=== PATIENT | male | born 1955 | race Caucasian/White ===

== ENCOUNTER 2018-08-08 21:03 | Inpatient (IN) | payer MEDICARE ==
[~2018-08-08] VITALS: Ht 193 cm; Wt 105.2 kg
--- OUTSIDE RECORDS SUMMARY | 2018-08-08 21:06 | XMS REPORT | Clinical Summary ---
Author Author [facility] Organization [facility] Address Unknown Phone Unavailable Care Team Providers Care Liquor Clerk Name Role Phone Asked, No Pcp PCP Unavailable Allergies Comments Active Allergy Reactions Severity Noted Date Muscle contraction, could not walk Levofloxacin Other (See High 02/13/2009 Comments) Medications End Date Status Medication Sig Dispensed Refills Start Date Active omega 1-mke-vbv-fish oil Take 1 0 (FISH OIL) 100-160-1,000 capsule by mg capsule mouth daily. 04/06/2018 Discontinued coenzyme [id number] E Take by 0 50-15 mg-unit/5 mL syrup mouth. 04/21/2018 Discontinued rosuvastatin (CRESTOR) 10 Take by 0 MG tablet mouth. 04/10/2018 Discontinued naproxen sodium (ALEVE) Take by 0 220 MG tablet mouth. 04/21/2018 Discontinued ezetimibe-simvastatin Take by 0 (VYTORIN) 10-10 mg per mouth. tablet 04/21/2018 Discontinued niacin (NIASPAN Take by 0 EXTENDED-RELEASE ORAL) mouth. 04/21/2018 Discontinued plant stanol jadon Take by 0 (CHOLEST OFF ORAL) mouth. 04/21/2018 Discontinued omega 1-nus-ghe-fish oil by NOT 0 (FISH OIL) 100-160-1,000 APPLICABLE mg capsule route. 05/10/2018 metoprolol tartrate Take 1 tablet 60 tablet 0 (LOPRESSOR) 25 mg tablet (25 mg total) 9 by mouth 2 (two) times a day for 30 days. 05/11/2018 folic acid (FOLVITE) 1 MG Take 1 tablet 30 tablet 0 tablet (1 mg total) 9 by mouth daily for 30 days. 05/11/2018 multivitamin (THERAGRAN) Take 1 tablet 30 tablet 0 tablet by mouth 9 daily for 30 days. 05/11/2018 aspirin 81 mg chewable Chew 1 tablet 30 tablet 0 tablet (81 mg total) 9 daily for 30 days. 05/10/2018 escitalopram (LEXAPRO) 10 Take 1 tablet 30 tablet 0 MG tablet (10 mg total) 9 by mouth every evening for 30 days. 05/11/2018 thiamine mononitrate, vit Take 1 tablet 30 tablet 0 B1, (B-1) 100 mg tablet (100 mg 9 total) by mouth daily for 30 days. 04/23/2018 Discontinued atorvastatin (LIPITOR) 10 Take 10 mg by 0 MG tablet mouth daily. 04/23/2018 Discontinued furosemide (LASIX) 20 mg Take 20 mg by 0 tablet mouth every 12 (twelve) hours as needed (swelling). 05/23/2018 atorvastatin (LIPITOR) 10 Take 4 120 tablet 0 MG tablet tablets (40 9 mg total) by mouth daily for 30 days. 05/23/2018 pantoprazole (PROTONIX) Take 1 tablet 60 tablet 0 40 MG EC tablet (40 mg total) 9 by mouth 2 (two) times a day for 30 days. 05/23/2018 ranolazine (RANEXA) 500 Take 1 tablet 60 tablet 0 MG 12 hr ER tablet (500 mg 9 total) by mouth 2 (two) times a day for 30 days. 05/23/2018 sucralfate (CARAFATE) 1 Take 1 tablet 120 tablet 0 gram tablet (1 g total) 9 by mouth 4 (four) times a day before meals and nightly for 30 days. Active Problems Problem Noted Date NSTEMI (non-ST elevated myocardial infarction) 04/20/2018 Head trauma 04/06/2018 Encounters Care Team Description Date Type Specialty Elio Salcedo MD Left heart cath w lv gram cors [25811 (CPT)] 04/21/2018 Surgery Procedural Cardiology Figueroa Witt MD Fakhri, Alifiya, MD Khan, Farhat, MD Mehdinasab, Leyla, MD NSTEMI (non-ST elevated myocardial infarction) (HCC) (Primary Dx); Chest pain in adult 04/20/2018 Hospital General Internal Medicine - Encounter 04/23/2018 04/20/2018 Travel Henry Seals MD Roland, DO Quinton Silverio Tania Ijeoma, MD Mehdinasab, Leyla, MD Traumatic injury of head, initial encounter (Primary Dx); Unsteady gait; Frequent falls; Acute kidney injury (HCC) 04/06/2018 Emergency General Internal Medicine - 04/10/2018 04/06/2018 Travel after 08/07/2017 Immunizations Name Dates Previously Given Next Due FLUCELVAX QUAD PF (0.5mL 04/10/2018 (Deferred: ) syringe) Pneumococcal 04/07/2018 Polysaccharide Family History Medical History Relation Name Comments Cancer Brother Stroke Father Diabetes Mother Relation Name Status Comments Brother Father Alive Mother Social History Date Tobacco Use Types Packs/Day Years Used Never Smoker Smokeless Tobacco: Never Used Alcohol Use Drinks/Week oz/Week Comments Yes 1 bottle of rum per week Sex Assigned at Date Recorded Not on file Industry Job Start Date Occupation Not on file Not on file Not on file Travel End Travel History Travel Start No recent travel history available. Last Filed Vital Signs Time Taken Vital Sign Reading 04/23/2018 7:23 AM CDT Blood Pressure 139/64 04/23/2018 7:23 AM CDT Pulse 65 04/23/2018 7:23 AM CDT Temperature 36.8 C (98.3 F) 04/23/2018 7:23 AM CDT Respiratory Rate 20 04/23/2018 7:23 AM CDT Oxygen Saturation 94% - Inhaled Oxygen - Concentration 04/20/2018 10:31 AM CDT Weight 113 kg (249 lb 1.9 oz) 04/20/2018 10:31 AM CDT Height 188 cm (6' 2") 04/20/2018 10:31 AM CDT Body Mass Index 31.99 Plan of Treatment Health Maintenance Due Date Last Done Comments COLONOSCOPY SCREENING 08/07/2003 SHINGLES VACCINES (#1) 08/07/2003 INFLUENZA VACCINE 09/08/2018 Implants Device Identifier Shelf Expiration Date Model / Serial / Lot Implanted Type Area Manufactur er 03/10/2020 [id number] / / [id number] Device Vasclr Clsr Baln Cath 10ml Cardiovasc N/A: N/A ACCESS Lkng Syr 5fr Rock Mynxgrip - ular CLOSURE [id number] [employer] Implanted: 04/21/2018 (Quantity not on file) Procedures Comments Procedure Name Priority Date/Time Associated Diagnosis ESTIMATED GFR Routine 04/23/2018 4:59 AM CDT BASIC METABOLIC PANEL Routine 04/23/2018 4:59 AM CDT HC COMPLETE BLD COUNT Routine 04/23/2018 W/AUTO DIFF 4:59 AM CDT ESTIMATED GFR Routine 04/22/2018 4:37 AM CDT BASIC METABOLIC PANEL Routine 04/22/2018 4:37 AM CDT LIPID PANEL Routine 04/22/2018 4:37 AM CDT HC COMPLETE BLD COUNT Routine 04/22/2018 W/AUTO DIFF 4:37 AM CDT US GALLBLADDER Routine 04/21/2018 5:06 PM CDT CV LEFT HEART CATH LV Routine 04/21/2018 GRAM WITH CORS 2:58 PM CDT URINALYSIS SCREEN AND Routine 04/21/2018 MICROSCOPY, WITH REFLEX 12:30 PM CDT TO CULTURE PARTIAL THROMBOPLASTIN Routine 04/21/2018 TIME (PTT) 11:47 AM CDT ECHOCARDIOGRAM 2D LIMITED Routine 04/21/2018 9:59 AM CDT LIPID PANEL Routine 04/21/2018 4:20 AM CDT LIPASE LEVEL Routine 04/21/2018 4:20 AM CDT AMYLASE LEVEL Routine 04/21/2018 4:20 AM CDT ESTIMATED GFR Routine 04/21/2018 4:20 AM CDT PARTIAL THROMBOPLASTIN Routine 04/21/2018 TIME (PTT) 4:20 AM CDT HC COMPLETE BLD COUNT Routine 04/21/2018 W/AUTO DIFF 4:20 AM CDT COMPREHENSIVE METABOLIC Routine 04/21/2018 PANEL 4:[address] ABDOMEN PELVIS WO Routine 04/21/2018 CONTRAST 1:03 AM CDT TROPONIN Timed 04/20/2018 9:26 PM CDT PARTIAL THROMBOPLASTIN Timed 04/20/2018 TIME (PTT) 8:14 PM CDT ECG 12-LEAD Routine 04/20/2018 7:22 PM CDT TROPONIN Timed 04/20/2018 6:00 PM CDT GASTROINTESTINAL PANEL Routine 04/20/2018 3:50 PM CDT ECG 12-LEAD Routine 04/20/2018 3:37 PM CDT POC GLUCOSE Routine 04/20/2018 3:10 PM CDT TROPONIN Timed 04/20/2018 2:40 PM CDT POC GLUCOSE Routine 04/20/2018 12:[address] ANGIOGRAM CHEST W WO STAT 04/20/2018 CONTRAST 11:46 AM CDT XR CHEST 1 VW PORTABLE STAT 04/20/2018 10:34 AM CDT PROTHROMBIN TIME WITH INR STAT 04/20/2018 10:33 AM CDT ANTI XA, UNFRACTIONATED Routine 04/20/2018 10:33 AM CDT PARTIAL THROMBOPLASTIN Routine 04/20/2018 TIME (PTT) 10:33 AM CDT ESTIMATED GFR STAT 04/20/2018 10:31 AM CDT B NATRIURETIC PEPTIDE STAT 04/20/2018 10:31 AM CDT TYPE AND SCREEN Routine 04/20/2018 10:31 AM CDT TROPONIN STAT 04/20/2018 10:31 AM CDT COMPREHENSIVE METABOLIC STAT 04/20/2018 PANEL 10:31 AM CDT HC COMPLETE BLD COUNT STAT 04/20/2018 W/AUTO DIFF 10:31 AM CDT ECG 12-LEAD STAT 04/20/2018 10:23 AM CDT HEMOGLOBIN A1C Routine 04/09/2018 5:48 AM FAMILY PRACTICE PHYSICIAN ECHOCARDIOGRAM 2D Routine 04/07/2018 COMPLETE W MMODE SPECTRAL 11:19 AM FAMILY PRACTICE PHYSICIAN COLOR DOPPLER (84828) ESTIMATED GFR Routine 04/07/2018 4:58 AM FAMILY PRACTICE PHYSICIAN FOLATE LEVEL Routine 04/07/2018 4:58 AM FAMILY PRACTICE PHYSICIAN VITAMIN B12 LEVEL Routine 04/07/2018 4:58 AM FAMILY PRACTICE PHYSICIAN THYROID STIMULATING Routine 04/07/2018 HORMONE 4:58 AM FAMILY PRACTICE PHYSICIAN BASIC METABOLIC PANEL Routine 04/07/2018 4:58 AM FAMILY PRACTICE PHYSICIAN HC COMPLETE BLD COUNT Routine 04/07/2018 W/AUTO DIFF 4:58 AM FAMILY PRACTICE PHYSICIAN MRI BRAIN WO CONTRAST STAT 04/06/2018 10:51 PM FAMILY PRACTICE PHYSICIAN ESTIMATED GFR STAT 04/06/2018 6:50 PM FAMILY PRACTICE PHYSICIAN ALCOHOL LEVEL, BLOOD STAT 04/06/2018 6:50 PM FAMILY PRACTICE PHYSICIAN SALICYLATE LEVEL STAT 04/06/2018 6:50 PM FAMILY PRACTICE PHYSICIAN ACETAMINOPHEN LEVEL STAT 04/06/2018 6:50 PM FAMILY PRACTICE PHYSICIAN COMPREHENSIVE METABOLIC STAT 04/06/2018 PANEL 6:50 PM FAMILY PRACTICE PHYSICIAN URINE DRUGS OF ABUSE STAT 04/06/2018 SCREEN 5:48 PM FAMILY PRACTICE PHYSICIAN HC COMPLETE BLD COUNT STAT 04/06/2018 W/AUTO DIFF 5:48 PM FAMILY PRACTICE PHYSICIAN CT CERVICAL SPINE WO STAT 04/06/2018 CONTRAST 5:45 PM FAMILY PRACTICE PHYSICIAN CT HEAD WO CONTRAST STAT 04/06/2018 5:45 PM FAMILY PRACTICE PHYSICIAN after 08/07/2017 Results * Estimated GFR (04/23/2018 4:59 AM CDT) Only the most recent of 6 results within the time period is included. Estimated GFR 54 (A) mL/min/1.73 m2 [facility] Comment: [facility] G1 >=90 Normal or high G2 60-89Mildly decreased S2c32-97 Mildly to moderately decreased Q1b68-91 Moderately to severely decreased G4 15-29Severely decreased G5 <15Kidney failure The eGFR was calculated using the Chronic Kidney Disease Epidemiology Collaboration (CKD-EPI) equation. Interpretation is based on recommendations of the National Kidney Foundation-Kidney Disease Outcomes Quality Initiative (NKF-KDOQI) published in 2014. Specimen Plasma specimen Performing Organization Address City/State/Zipcode [place] [id number], [address] [place] [address] PATHOLOGY AND GENOMIC MEDICINE [facility] THE [address] [facility] [address] * CBC with platelet and differential (04/23/2018 4:59 AM CDT) Only the most recent of 6 results within the time period is included. WBC 8.58 4.50 - 11.00 k/uL [facility] RBC 3.23 (L) 4.40 - 6.00 m/uL [facility] HGB 11.9 (L) 14.0 - 18.0 g/dL [facility] HCT 35.4 (L) 41.0 - 51.0 % [facility] MCV 109.6 (H) 82.0 - 100.0 fL [facility] MCH 36.8 (H) 27.0 - 34.0 pg [facility] MCHC 33.6 31.0 - 37.0 g/dL [facility] RDW - SD 53.3 37.0 - 55.0 fL [facility] MPV 10.6 8.8 - 13.2 fL [facility] Platelet count 164 150 - 400 k/uL [facility] Nucleated RBC 0.00 /100 WBC [facility] Neutrophils 44.9 39.0 - 69.0 % [facility] Lymphocytes 33.3 25.0 - 45.0 % [facility] Monocytes 14.0 (H) 0.0 - 10.0 % [facility] Eosinophils 6.4 (H) 0.0 - 5.0 % [facility] Basophils 1.2 (H) 0.0 - 1.0 % [facility] Immature 0.2Comment: "Immature 0.0 - 1.0 % [facility] granulocytes granulocytes" (promyelocytes, [facility] THE myelocytes, metamyelocytes) [facility] Specimen Blood Performing Organization Address City/[facility] [place] Number [place] [address], [address] [place] [address] PATHOLOGY AND GENOMIC MEDICINE [facility] [address] [facility] [address] * Basic metabolic panel (04/23/2018 4:59 AM CDT) Only the most recent of 3 results within the time period is included. Sodium 138 135 - 148 mEq/L [facility] Potassium 3.8 3.5 - 5.0 mEq/L [facility] Chloride 101 98 - 112 mEq/L [facility] CO2 21 (L) 24 - 31 mEq/L [facility] Anion gap 16 (H) 7 - 15 mEq/L [facility] BUN 13 8 - 23 mg/dL [facility] Creatinine 1.36 (H) 0.70 - 1.20 mg/dL [facility] Glucose 103 (H) 65 - 99 mg/dL [facility] Calcium 7.7 (L) 8.8 - 10.2 mg/dL [facility] Specimen Plasma specimen Performing Organization Address City/[facility] Phone Number [facility] [place] [address], [address] [place] [address] PATHOLOGY AND GENOMIC MEDICINE [facility] THE [address] [facility] [address] * Lipid panel (04/22/2018 4:37 AM CDT) Only the most recent of 2 results within the time period is included. Cholesterol 155 <200 mg/dL [facility] Triglycerides 121 <150 mg/dL [facility] HDL cholesterol 51 >40 mg/dL [facility] LDL cholesterol 85Comment: Result obtained by <100 mg/dL [facility] direct LDL measurement [facility] Lipid panel SeeBelow [facility] interpretation Comment: [facility] THE Total Cholesterol [facility] (mg/dL) [facility] <200 Desirable 200-239Borderline -high >=240High Triglycerides (mg/dL) <150 Normal 150-199Borderline -high 200-499High >=500Very high HDL Cholesterol (mg/dL) <40Low (male) <40Low (female) LDL Cholesterol (mg/dL) <100 Optimal 100-129Near or above optimal 130-159Borderline -high 160-189High >=190Very high Risk Catergories that modify LDL goals. Risk Catergories LDL goal (mg/dL) CHD and CHD risk equivalent<100 (10-year risk >20%) Multiple (2+) risk factors <130 (10-year risk=<20%) 0-1 risk factors <160 (<10-year risk) Defining levels of lipids in metabolic syndrome Triglycerides >=150 mg/dL HDL Cholesterol Men <40 mg/dL Women <40 mg/dL Non-HDL cholesterol is a second target for therapy in persons with high triglycerides (>=200 mg/dL) Specimen Plasma specimen Performing Organization Address City/State/Zipcode Phone Number [facility] DEPARTMENT OF , [address] [place] [address] PATHOLOGY AND GENOMIC MEDICINE [facility] [place] [facility] [address] [facility] [address] * US Gallbladder (04/21/2018 5:06 PM CDT) Specimen Narrative Performed At EXAMINATION:US GALLBLADDER [facility] CLINICAL HISTORY:Abd swellingascites suspected, Nauseavomiting COMPARISON:None. FINDINGS: Gallbladder: The gallbladder is without evidence of calculi. The gallbladder wall is not thickened and there is no pericholecystic fluid. CBD:0.52 cm , within normal limits. Portal vein: The portal vein demonstrates normal hepatopedal flow. The portal vein measures 1 cm. IMPRESSION: Normal gallbladder ultrasound examination. [facility]-[id number] Procedure Note Interface, Radiology Results Incoming - 04/21/2018 5:44 PM CDT EXAMINATION: US GALLBLADDER CLINICAL HISTORY: Abd swelling ascites suspected, Nausea vomiting COMPARISON: None. FINDINGS: Gallbladder: The gallbladder is without evidence of calculi. The gallbladder wall is not thickened and there is no pericholecystic fluid. CBD: 0.52 cm , within normal limits. Portal vein: The portal vein demonstrates normal hepatopedal flow. The portal vein measures 1 cm. IMPRESSION: Normal gallbladder ultrasound examination. [facility]-[id number] Performing Organization Address City/State/Zipcode Phone Number [facility] [address] [place] [address] * Cv labeling strategist procedure (04/21/2018 2:58 PM CDT) Specimen Narrative Performed At Elio Ibarra MD Physician Cardiology Procedures Signed Date of Service:04/21/2018 3:16 PM Signed []Hide copied text []Hover for details Locomotive Supervisor:Dr. Salcedo Procedure:LHC, MITTAL - LAD angiography, SVG - OM1 and OM2 angiography, SVG - PDA and PLB angiography Indication:NSTEMI Procedure in detail:The patient was prepped and draped in sterile fashion.A 5 Fr short sheath was placed into the R SOCIAL WORK NURSE successfully.A 4 Fr JL-5 catheter was unable to engage the left coronary system.A 4 Fr AL-2 catheter was used to engage the left coronary system.Angiography was performed in multiple views.A 4 Fr 3DRC catheter was used to engage the RCA.Angiography was performed in multiple views.A 4 Fr LCB catheter was used to engage the SVG - OM1 and OM2.Angiography was perfomed.A 4 Fr MP catheter was used to engage the SVG - PDA and PLB. Angiography was performed.A 4 Fr pigtail catheter was placed into the left ventricle, and LVEDP was measured.Ventriculogram was not performed due to CKD. Findings: LM:Patent LAD:Mid 80% stenosis LCx:OM 100% occlusion (PET HOUSE SITTER) RCA:Proximal 70% in-stent restenosis (ISR) Patent MITTAL - LAD. Occluded SVG - OM1 and OM2. Occluded SVG - PDA and PLB. Assessment: 1.Patent MITTAL - LAD. 2.Occluded SVG - OM1 and OM2. 3.Occluded SVG - PDA and PLB. 4.[place] OM 100% occlusion (PET HOUSE SITTER). 5.[place] RCA proximal 70% in-stent restenosis. Recommendations: 1.Start antianginals (Ranexa 500 mg bid). 2.F/U Dr. Adam Cronin at [place] in 1 week to assess the need for PCI RCA. ED to Hosp-Admission (Current) on 04/20/2018 Detailed Report Performing Organization Address City/State/Zipcode Phone Number [facility] [address] [place] [address] * Urinalysis screen and microscopy, with reflex to culture (04/21/2018 12:30 PM CDT) Specimen site Clean catch [facility] Color, UA Yellow [facility] Appearance, UA Clear [facility] Specific 1.024 1.001 - 1.035 [facility] gravity, UA [facility] pH, UA 6.0 5.0 - 8.5 [facility] Protein, UA Negative Negative [facility] Glucose, UA Negative Negative [facility] Ketones, UA Trace (A) Negative [facility] Bilirubin, UA Negative Negative [facility] Blood, UA Large (A) Negative [facility] Nitrite, UA Negative Negative [facility] Urobilinogen, <2.0 <2.0 [facility] UA [facility] Leukocyte Negative Negative [facility] esterase, UA [facility] WBC, UA 1 0 - 5 /HPF [facility] RBC, UA 59 (H) 0 - 5 /HPF [facility] Yeast, UA None seen [facility] Yeast with None seen [facility] pseudohyphae, [facility] Hyaline casts, 3 /LPF [facility] UA [facility] Specimen Urine Performing Organization Address City/State/[place]code [place] [address], [address] [place] [address] PATHOLOGY AND GENOMIC MEDICINE [facility] [place] THE [address] [facility] [address] * Partial thromboplastin time, activated (04/21/2018 11:47 AM CDT) Only the most recent of 4 results within the time period is included. PTT 59.6 (H) 23.0 - 36.0 sec [facility] Comment: [facility] THE PTT therapeutic range for [facility] unfractionated heparin is HOSPITAL 61.0-112.0 seconds which corresponds to Anti-Xa 0.3-0.7 U/ml. Specimen Blood Performing Organization Address City/State/Zipcode Phone Number [facility] [place] [address], [address] [place] [address] PATHOLOGY AND GENOMIC MEDICINE [facility] [place] THE [address] [facility] [address] * Cv echo 2d limited or follow up study (04/21/2018 9:59 AM CDT) BSA 2.43 m2 [facility] IVS,d 0.99 cm [facility] EF 40.72 % [facility] LVPWD,d 0.96 cm [facility] LVOT Diam,S 2.46 cm [facility] LVOT area 4.75 cm2 [facility] LV Vol,s A2C 74.61 mL [facility] LV Systolic 30.70 mL/m2 [facility] Volume Index LV Vol,d A2C 153.45 mL [facility] LV Diastolic 63.15 mL/m2 [facility] Volume Index Ao Root 4.20 cm [facility] Diameter IVS/LVPW,2D 1.03 [facility] Left Atrium 3.99 cm [facility] Dimension Anterior LV,d 5.59 cm [facility] LV,s 4.46 cm [facility] LV Vol,d A4C 139.98 ml [facility] LV Vol,s A4C 73.41 ml [facility] Ao Root 4.20 cm [facility] Diameter LV SYS VOL 90.56 ml [facility] LV COWAN VOL 152.76 ml [facility] LV SV Teich 2D 62.20 ml [facility] LV Vol s Teich 90.56 ml [facility] PSAX IVS s 2D 0.98 [facility] LV FS Cube 2D 20.14 [facility] LV FS Teich 2D 20.14 [facility] LV EF,2D 49.07 % [facility] LV EF,A2C 51.38 % [facility] LV EF,A4C 47.56 % [facility] LV EF,BP 47.84 % [facility] [place],d A2C 9.72 cm [facility] [place],d A4C 10.02 cm [facility] [place],s A2C 10.28 cm [facility] [place],s A4C 9.29 cm [facility] LV SV,A2C 78.85 % [facility] LV SV,A4C 66.58 % [facility] LV SV,BP 70.97 % [facility] LV Vol,d BP 148.35 ml [facility] LV Vol,s BP 77.39 nl [facility] MAX Pred HR 155.29 [facility] 85 of MPHR 132.00 [facility] Calc MPHR 155.29 bpm [facility] IVS pct thck -0.78 % [facility] PLAX LV SV Cube 2D 85.51 ml [facility] LV vol d cube 174.27 ml [facility] 2D LV vol s cube 88.75 ml [facility] 2D LVPW pct thck 31.71 % [facility] PLAX LVPW s PLAX 1.26 cm [facility] Pred Exer Dur 7.98 [facility] R1 Pred METS R1 8.29 [facility] Specimen Narrative Performed At [facility] The left ventricle chamber size is mildly enlarged. Left ventricular systolic function is borderline reduced. Left Ventricular ejection fraction is 45 - 50%. The mitral valve appears thickened. Mild to moderate aortic valve stenosis. Performing Organization Address City/State/Zipcode Phone Number [facility] [address] [place] [address] * Lipase level (04/21/2018 4:20 AM CDT) Lipase 88 (H) 13 - 60 U/L [facility] Specimen Plasma specimen Performing Organization Address City/State/Zipcode [place] Number [place] [address], [address] [place] [address] PATHOLOGY AND GENOMIC MEDICINE [facility] THE [address] [facility] [address] * Amylase level (04/21/2018 4:20 AM CDT) Amylase 62 13 - 73 U/L [facility] Specimen Plasma specimen Performing Organization Address City/State/Zipcode [place] Number [place] [address], [address] [place] [address] PATHOLOGY AND GENOMIC MEDICINE [facility] THE [address] [facility] [address] * Comprehensive metabolic panel (04/21/2018 4:20 AM CDT) Only the most recent of 3 results within the time period is included. Sodium 136 135 - 148 mEq/L [facility] Potassium 4.8 3.5 - 5.0 mEq/L [facility] Chloride 102 98 - 112 mEq/L [facility] CO2 21 (L) 24 - 31 mEq/L [facility] Anion gap 13 7 - 15 mEq/L [facility] BUN 13 8 - 23 mg/dL [facility] Creatinine 1.61 (H) 0.70 - 1.20 mg/dL [facility] Glucose 127 (H) 65 - 99 mg/dL [facility] Calcium 8.6 (L) 8.8 - 10.2 mg/dL [facility] Protein 6.5 6.3 - 8.3 g/dL [facility] Comment: [facility] Leander [facility] 4.6-7.0 g/dL HOSPITAL 1 week 4.4-7.6 g/dL 7 months-1year 5.1-7.3 g/dL 1-2 years5.6-7 .5 g/dL >3 years6.0-8 .0 g/dL 18-150 6.3-8.3 g/dL Albumin 3.4 (L) 3.5 - 5.0 g/dL [facility] A/G ratio 1.1 0.7 - 3.8 [facility] Alkaline 41 40 - 129 U/L [facility] phosphatase [facility] AST 49 10 - 50 U/L [facility] ALT 45 5 - 50 U/L [facility] Total bilirubin 1.0 0.0 - 1.2 mg/dL [facility] Specimen Plasma specimen Performing Organization Address City/State/Zipcode [place] Number [place] [address], [address] [place] [address] PATHOLOGY AND GENOMIC MEDICINE [facility] THE [address] [facility] [address] * CT Abdomen Pelvis Wo Contrast (04/21/2018 1:03 AM CDT) Specimen Narrative Performed At CT ABDOMEN PELVIS WO CONTRAST [facility] CLINICAL INDICATION:Abd paindiverticulitis suspected TECHNIQUE:Multidetector CT of the abdomen and pelvis was performed without intravenous contrast with multiplanar reconstructions. CT imaging was performed with iterative reconstruction technique and/or automated exposure control to reduce radiation dose. COMPARISON:None FINDINGS: Please note, the lack of intravenous contrast limits evaluation of the abdominal and pelvic viscera. LOWER THORAX: The visualized lungs are clear. There is mild wall thickening of the distal esophagus. LIVER:There is hepatic steatosis. There are a few subcentimeter hypodense lesions in the liver, which are not well characterized but likely appliance service representative of small cysts or hemangiomas. BILIARY:Normal. 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 PANCREAS:Questionable mild edema adjacent to the pancreatic tail. There are punctate calcifications within the pancreatic head, compatible with sequela of prior pancreatitis. ADRENALS:Normal. KIDNEYS:There is a 3.3 x 3.1 cm intermediate density lesion arising from the left kidney, likely a hemorrhagic cyst. There is no hydronephrosis. There is contrast within both renal collecting systems, precluding evaluation for renal stones. GI:Large and small bowel are normal in caliber.There are no inflammatory changes.Appendix is visualized and appears normal. VASCULAR:There is calcified atherosclerotic disease of the abdominal aorta and iliac arteries. 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 LYMPH NODES:No enlarged lymph nodes in the abdomen or pelvis. PELVIS:The urinary bladder contains contrast and is without abnormality. BONES:There are no acute osseous abnormalities. There is patulous disease of the proximal left femur. OTHER:No ascites or pneumoperitoneum. IMPRESSION: 1. Questionable mild edema adjacent to the pancreatic tail, clinical and laboratory correlation for the possibility of acute pancreatitis is recommended. 2. Hepatic steatosis. 3. Exophytic lesion arising from the left kidney, likely representing a hemorrhagic cyst. Further characterization can be obtained with a renal protocol CT or MRI. 4. Mild wall thickening of the distal esophagus, suggestive of esophagitis. [id number] Procedure Note Hm Interface, Radiology Results Incoming - 04/21/2018 2:[address] ABDOMEN PELVIS WO CONTRAST CLINICAL INDICATION: Abd pain diverticulitis suspected TECHNIQUE: Multidetector CT of the abdomen and pelvis was performed without intravenous contrast with multiplanar reconstructions. CT imaging was performed with iterative reconstruction technique and/or automated exposure control to reduce radiation dose. COMPARISON: None FINDINGS: Please note, the lack of intravenous contrast limits evaluation of the abdominal and pelvic viscera. LOWER THORAX: The visualized lungs are clear. There is mild wall thickening of the distal esophagus. LIVER: There is hepatic steatosis. There are a few subcentimeter hypodense lesions in the liver, which are not well characterized but likely appliance service representative of small cysts or hemangiomas. BILIARY: Normal. 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 PANCREAS: Questionable mild edema adjacent to the pancreatic tail. There are punctate calcifications within the pancreatic head, compatible with sequela of prior pancreatitis. ADRENALS: Normal. KIDNEYS: There is a 3.3 x 3.1 cm intermediate density lesion arising from the left kidney, likely a hemorrhagic cyst. There is no hydronephrosis. There is contrast within both renal collecting systems, precluding evaluation for renal stones. GI: Large and small bowel are normal in caliber. There are no inflammatory changes. Appendix is visualized and appears normal. VASCULAR: There is calcified atherosclerotic disease of the abdominal aorta and iliac arteries. 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 LYMPH NODES: No enlarged lymph nodes in the abdomen or pelvis. PELVIS: The urinary bladder contains contrast and is without abnormality. BONES: There are no acute osseous abnormalities. There is patulous disease of the proximal left femur. OTHER: No ascites or pneumoperitoneum. IMPRESSION: 1. Questionable mild edema adjacent to the pancreatic tail, clinical and laboratory correlation for the possibility of acute pancreatitis is recommended. 2. Hepatic steatosis. 3. Exophytic lesion arising from the left kidney, likely representing a hemorrhagic cyst. Further characterization can be obtained with a renal protocol CT or MRI. 4. Mild wall thickening of the distal esophagus, suggestive of esophagitis. [id number] Performing Organization Address City/State/Zipcode Phone Number [facility] [address] [place] [address] * Troponin (04/20/2018 9:26 PM CDT) Only the most recent of 4 results within the time period is included. Troponin 0.865 (H) 0.000 - 0.300 ng/mL DAWSON Comment: HINDU THE 0.30 - 1.49 [facility] indicate increased risk of acute coronary syndrome. >=1.5 ng/ml Consistent with acute myocardial infarction. The diagnostic value of a single normal or non-diagnostic result is questionable.Serial samples at 2-6 hour intervals are required to rule out acute myocardial injury. Specimen Plasma specimen Performing Organization Address [facility]/[place]code [place] [address], [address] [place] [address] PATHOLOGY AND GENOMIC MEDICINE DAWSON [place] THE [address] [facility] [phone] * ECG 12 lead (04/20/2018 7:22 PM CDT) Only the most recent of 3 results within the time period is included. Ventricular 105 [facility] MUSE rate Atrial rate 105 [facility] M[facility] OR interval 172 [facility] QRSD interval 120 [facility] QT interval 386 [facility] QTC interval 510 [facility] P axis 1 14 [facility] QRS axis 1 -52 [facility] T wave axis 101 [facility] EKG impression Sinus tachycardia with [facility] MUSE occasional premature ventricular complexes-Possible Left atrial enlargement-Left anterior fascicular block-Cannot rule out Inferior infarct (cited on or before 20-APR-2018)-Anterior infarct (cited on or before 20-APR-2018)-Abnormal ECG- Specimen Narrative Performed At Performing Organization Address City/[facility]/Zipcode Phone Number [facility] MUSE [address] [place] [address] * Gastrointestinal panel (04/20/2018 3:50 PM CDT) Gastrointestina Negative for all pathogens DAWSON l panel tested: HINDU Negative for Salmonella HOSPITAL Negative for Campylobacter Negative for Diarrheagenic E coli/Shigella Negative for Shiga-like toxin-producing E coli Negative for Plesiomonas shigelloides Negative for Yersinia enterocolitica Negative for Vibrio species Negative for Clostridium difficile (Toxin A/B) Negative for Cryptosporidium Negative for Giardia lamblia Negative for Cyclospora cayeteanensis Negative for Entamoeba histolytica Negative for Adenovirus F 40/41 Negative for Astrovirus Negative for Norovirus GI/GII Negative for Rotavirus A Negative for Sapovirus Negative for Clostridium difficile toxin Negative for E coli 0157 This real-time PCR assay detects the presence of nucleic acids (RNA or DNA) for the gastrointestinal pathogens listed. A result of "Not-detected" does not exclude the possibility of the presence of one or more pathogens at concentrations less than the detectable limits of the assay. Comment: Specimen Information Specimen Source: Stool Specimen Site: Nonpreserved Specimen Stool - Nonpreserved Performing Organization Address City/State/Zipcode Phone Number [facility] DEPARTMENT [address] [place] [address] PATHOLOGY AND GENOMIC MEDICINE DAWSON [place] [address] [place] [address] HOSPITAL * POC glucose (04/20/2018 3:10 PM CDT) Only the most recent of 2 results within the time period is included. [facility] POC glucose 150 (H) 65 - 99 mg/dL DAWSON Comment: HINDU THE Meter ID: [id number] [facility] Locomotive Supervisor: [facility] Specimen Performing Organization Address City/State/[place] [address], [address] [place] [address] PATHOLOGY AND GENOMIC MEDICINE DAWSON [place] THE [address] [facility] [phone] * CTA Chest W Wo Contrast (04/20/2018 11:46 AM CDT) Specimen Narrative Performed At EXAMINATION:CT ANGIOGRAM CHEST W WO CONTRAST [facility] CLINICAL HISTORY:severe chest pain TECHNIQUE: Multiple CT angiographic images of the abdomen, pelvis, and bilateral lower extremities were obtained during intravenous administration of iodinated contrast. Multiple computerized reformatted images as well as 3-D volume rendered images were also obtained. DOSE REDUCTION: CT imaging was performed with iterative reconstruction technique and/or automated exposure control to reduce radiation dose. COMPARISON:None. FINDINGS: CTA: 1.The ascending thoracic aorta appears ectatic measuring 4.2 cm in greatest AP diameter. 2.The sinotubular junction measures approximately 3.6 cm. The proximal ascending thoracic aorta measures 3.8 cm. The mid portion measures 3.8 cm, and the distal portion measures 3.4 cm. 3.The aortic arch measures 2.9 cm. The descending thoracic aorta measures 2.3 cm and at the level of the hiatus measures 2.3 cm. 4.There is no evidence of aortic dissection. A minimal amount of calcified atherosclerotic disease is noted. No periaortic fluid collections. 5.Minimal calcification of the aortic valve leaflets is noted. 6.The patient is status post median sternotomy and cardiac bypass. 7.Normal morphologic branching is seen from the aortic arch. There is no evidence of central stenosis. CHEST: 1. The cardiac size is mildly enlarged. No pericardial effusion. 2.Bibasilar atelectasis. A calcified granuloma seen within the right lung base. No focal consolidation. No bronchiectasis. No pleural thickening. No pleural fluid. The trachea main bronchi are clear. 3.No mediastinal, hilar, or axillary lymphadenopathy. 4.The thyroid is unremarkable. 5.The pulmonary trunk is normal in caliber. 6.The bones of the chest are within normal limits. 7.The mid esophagus appears circumferentially thickened (image 61, series 5). No mediastinal fluid collections. No mediastinal air. No hiatal hernia. 8.Limited evaluation of the upper abdomen demonstrates a rounded soft tissue mass seen adjacent to the superior pole of the left kidney measuring 2.5 cm.There is a 0.9 cm low-density mass seen within the right lobe of the liver likely representing a cyst, however, is ill-defined (image 79, series 5). There is a punctate, nonobstructing renal stone seen within the superior pole calyx of the left kidney measuring up to 0.3 cm in size. IMPRESSION: 1.Ectasia of the ascending thoracic aorta measuring up to 4.2 cm in greatest diameter. There is no evidence of dissection or periaortic fluid collection. 2.Circumferential thickening of the midesophagus may represent focal esophagitis, however, this can be better evaluated with endoscopy. 3.Soft tissue mass is seen within the left upper quadrant of the abdomen felt most likely to represent a splenule rather than an exophytic left renal mass, however, the spleen is not discretely visualized. This can be better evaluated with CT abdomen and pelvis or nuclear medicine study as clinically indicated. 4.Other incidental findings as above. [id number] Procedure Note Hm Interface, Radiology Results Incoming - 04/20/2018 12:13 PM CDT EXAMINATION: CT ANGIOGRAM CHEST W WO CONTRAST CLINICAL HISTORY: severe chest pain TECHNIQUE: Multiple CT angiographic images of the abdomen, pelvis, and bilateral lower extremities were obtained during intravenous administration of iodinated contrast. Multiple computerized reformatted images as well as 3-D volume rendered images were also obtained. DOSE REDUCTION: CT imaging was performed with iterative reconstruction technique and/or automated exposure control to reduce radiation dose. COMPARISON: None. FINDINGS: CTA: 1. The ascending thoracic aorta appears ectatic measuring 4.2 cm in greatest AP diameter. 2. The sinotubular junction measures approximately 3.6 cm. The proximal ascending thoracic aorta measures 3.8 cm. The mid portion measures 3.8 cm, and the distal portion measures 3.4 cm. 3. The aortic arch measures 2.9 cm. The descending thoracic aorta measures 2.3 cm and at the level of the hiatus measures 2.3 cm. 4. There is no evidence of aortic dissection. A minimal amount of calcified atherosclerotic disease is noted. No periaortic fluid collections. 5. Minimal calcification of the aortic valve leaflets is noted. 6. The patient is status post median sternotomy and cardiac bypass. 7. Normal morphologic branching is seen from the aortic arch. There is no evidence of central stenosis. CHEST: 1. The cardiac size is mildly enlarged. No pericardial effusion. 2. Bibasilar atelectasis. A calcified granuloma seen within the right lung base. No focal consolidation. No bronchiectasis. No pleural thickening. No pleural fluid. The trachea main bronchi are clear. 3. No mediastinal, hilar, or axillary lymphadenopathy. 4. The thyroid is unremarkable. 5. The pulmonary trunk is normal in caliber. 6. The bones of the chest are within normal limits. 7. The mid esophagus appears circumferentially thickened (image 61, series 5). No mediastinal fluid collections. No mediastinal air. No hiatal hernia. 8. Limited evaluation of the upper abdomen demonstrates a rounded soft tissue mass seen adjacent to the superior pole of the left kidney measuring 2.5 cm. There is a 0.9 cm low-density mass seen within the right lobe of the liver likely representing a cyst, however, is ill-defined (image 79, series 5). There is a punctate, nonobstructing renal stone seen within the superior pole calyx of the left kidney measuring up to 0.3 cm in size. IMPRESSION: 1. Ectasia of the ascending thoracic aorta measuring up to 4.2 cm in greatest diameter. There is no evidence of dissection or periaortic fluid collection. 2. Circumferential thickening of the midesophagus may represent focal esophagitis, however, this can be better evaluated with endoscopy. 3. Soft tissue mass is seen within the left upper quadrant of the abdomen felt most likely to represent a splenule rather than an exophytic left renal mass, however, the spleen is not discretely visualized. This can be better evaluated with CT abdomen and pelvis or nuclear medicine study as clinically indicated. 4. Other incidental findings as above. [facility]-[id number] Performing Organization Address City/[facility] Phone Number [facility] [address] [place] [address] * XR Chest 1 Vw Portable (04/20/2018 10:34 AM CDT) Specimen Narrative Performed At EXAMINATION:XR CHEST 1 [facility]W [facility]ABLE [facility] CLINICAL HISTORY:chest pain COMPARISON:None IMPRESSION: 1.Prior sternotomy. Heart size is at the upper limits normal. 2.No infiltrates or effusions. 3.Vessels are not congested. [id number] Procedure Note Interface, Radiology Results Incoming - 04/20/2018 10:42 AM CDT EXAMINATION: XR CHEST 1 VW PORTABLE CLINICAL HISTORY: chest pain COMPARISON: None IMPRESSION: 1. Prior sternotomy. Heart size is at the upper limits normal. 2. No infiltrates or effusions. 3. Vessels are not congested. [id number] Performing Organization Address [facility] Phone Number [facility] [address] [place] [address] * Prothrombin time with INR (04/20/2018 10:33 AM CDT) Prothrombin 14.1 11.5 - 14.5 sec STEIN time HINDU [facility] INR 1.1 DAWSON Comment: DENISSE BERGER [facility] Ratio (INR) is a therapeutic HOSPITAL monitoring tool for patients who are stable on oral anticoagulant therapy. An INR of 2.0-3.0 is suggested for deep vein thrombosis/pulmonary embolism. Specimen Blood Performing Organization Address City/[facility] Phone Number [facility] DEPARTMENT OF , [address] [place] [address] PATHOLOGY AND GENOMIC MEDICINE DAWSON [place] THE [address] [facility] [address] * Anti Xa, unfractionated (04/20/2018 10:33 AM CDT) Anti Xa, <0.10 (L)Comment: Therapeutic 0.30 - 0.70 U/mL DAWSON unfractionated Range: 0.30 - 0.70 U/mL HINDU [facility] Specimen Blood Performing Organization Address [facility] Phone Number [facility] DEPARTMENT OF [facility], [address] [place] [address] PATHOLOGY AND [facility] HIND[place] THE [address] [place] [phone] * Type and screen (04/20/2018 10:31 AM CDT) ABO grouping B DAWSON [facility] Rh type POS [facility] Antibody screen NEG DAWSON (gel) HINDU [facility] Specimen Blood Performing Organization Address [facility] Phone Number [facility] [place] [address], [address] [place] [address] PATHOLOGY AND GENOMIC MEDICINE DAWSON [place] THE [address] [place] [phone] * B natriuretic peptide (04/20/2018 10:31 AM CDT) BNP 507 (H) 0 - 100 pg/mL DAWSON H[facility] Specimen Blood Performing Organization Address City/[facility] Phone Number [facility] DEPARTMENT OF [address] [place] [address] PATHOLOGY AND [facility] [place] THE [address] [place] [phone] * Hemoglobin A1c (04/09/2018 5:48 AM FAMILY PRACTICE PHYSICIAN) Hemoglobin A1C 6.3 (H) 4.0 - 5.6 % DAWSON Comment: HINDU THE HbA1c cutoffs for diagnosing [facility] diabetes: HOSPITAL 4.0% - 5.6%=normal 5.7% - 6.4%=increased risk for diabetes (prediabetes) >=6.5%=diabetes Goals for glycemic control (ADA 2016) < 7.0%Target for non adults with diabetes. More or less stringent targets may be appropriate for individual patients. <7.5% Target for Children and adolescents with type 1 diabetes. Specimen Blood Performing Organization Address City/State/Zipcode Phone Number [facility] [place] [address], [address] [place] [address] PATHOLOGY AND GENOMIC MEDICINE DAWSON [place] THE [address] [facility] [phone] * Echocardiogram complete w contrast and 3D if needed (04/07/2018 11:19 AM FAMILY PRACTICE PHYSICIAN) Ao Root 4.35 cm HM [facility] Diameter AoV Area, Vmax 2.98 cm2 HM [facility] AoV Area, VTI 3.96 cm2 HM [facility] AoV Mean PG 7.51 mmHg HM [facility] AoV Peak PG 15.61 mmHg HM [facility] AoV Vmax 1.98 m/s HM [facility] AoV VTI 0.32 m HM [facility] IVS,d 1.3 cm HM [facility] IVS/LVPW,2D 1.06 HM SYNGO Left Atrium 3.86 cm HM [facility] Dimension Anterior LV,d 4.24 cm HM [facility] LV EF,2D 26.89 % HM SYN[facility] LV EF,A2C 51.52 % HM SY[facility] LV EF,A4C 24.04 % HM [facility] LV EF,BP 38.56 % HM SYNGO [place],d A2C 8.73 cm HM SYNGO [place],d A4C 9.49 cm HM SYNGO [place],s A2C 7.91 cm HM SYNGO [place],s A4C 8.86 cm HM SYNGO LV,s 3.82 cm HM [facility] LV SV,A2C 61.04 % HM SY[facility]GO LV SV,A4C 24.83 % HM [facility] LV SV,BP 44.42 % HM SYN[facility] LV Vol,d A2C 118.48 mL HM SYNGO LV Vol,d A4C 103.28 ml HM SYNGO LV Vol,d BP 115.19 ml HM SYNGO LV Vol,s A2C 57.44 mL HM SYNGO LV Vol,s A4C 78.45 ml HM SYNGO LV Vol,s BP 70.77 nl HM [facility]NGO LVOT area 5.85 cm2 HM [facility] LVOT Diam,S 2.73 cm HM [facility] LVOT Vmax 1.01 m/s HM [facility] LVOT VTI 0.22 m HM SYNGO LVPWD,d 1.22 cm HM [facility] PV Pk Grad 6.61 mmHg HM [facility] PV VMAX 1.29 m/s HM SYNGO RVOT Vmax 0.65 m/s HM [facility] MV E A ratio 0.77 HM SYNGO E wave 192.81 msec HM SYNGO decelartion time MV Peak A Boone 0.96 m/s HM SYNGO MV valve area p 3.93 cm2 HM [facility] 1/2 method MV Peak E Boone 0.74 m/s HM SYNGO MV stenosis 55.91 ms HM SYNGO pressure 1/2 time AV LVOT peak 4.05 mmHg HM SYNGO gradient Ao Root 4.35 cm HM SYNGO Diameter MV mean 2.22 mmHg HM SYNGO gradient LV SYS VOL 62.74 ml HM [facility] LV COWAN VOL 80.39 ml HM SYNGO LA area s A4C 19.04 cm2 HM SYNGO LV SV Teich 2D 17.64 ml HM SYNGO LV Vol s Teich 62.74 ml HM SYNGO PSAX MR peak grad 4.83 mmHg HM SYNGO MV Vmax 1.10 m HM SYNGO MV VTI Tips 0.28 m HM SYNGO RVOT pk grad 0.44 mmHg HM [facility] AoV Vmn 1.26 HM [facility] IVS s 2D 2.19 HM SYNGO LV FS Teich 2D 9.91 HM SYNGO MV AE ratio 1.31 HM SYNGO LV FS Cube 2D 9.91 HM SYN[facility] LVOT Vmn 0.74 HM [facility]NGO Aov area Vmn 3.42 cm2 HM SYNGO LVOT mean grad 2.40 mmHg HM SYNGO MAX Pred HR 155.33 HM SYNGO 85 of MPHR 132.03 HM [facility] Calc MPHR 155.33 bpm HM [facility] IVS pct thck 20.82 % HM [facility] PLAX LV SV Cube 2D 20.51 ml HM SYNGO LV vol d cube 76.26 ml HM SYNGO 2D LV vol s cube 55.76 ml HM SYNGO 2D LVPW pct thck 12.37 % HM SYNGO PLAX LVPW s PLAX 1.92 cm HM SYNGO MV Decel slope 3.81 m/s2 HM SYNGO Pred Exer Dur 7.99 HM [facility] R1 Pred METS R1 8.30 HM SYNGO LA Vol MOD A4C 53.33 ml HM SYNGO Velocity Ratio 0.51 m/s HM SYNGO (V1/V2) EF 21.96 % HM [facility] E/A ratio 0.77 HM SYNGO RA pressure 5.00 mmHg SYNGO Specimen Narrative Performed At HM [facility] Left ventricular systolic function is moderately impaired. There is mild left ventricular concentric hypertrophy. Left Ventricular ejection fraction is 35 - 40% - gross estimate, poor acoustic windows even with use of definity contrast. There is moderate sclerosis of the MV leaflets. No significant mitral stenosis or regurgitation. There is moderate sclerosis of the aortic valve leaflets. No significant valvular aortic stenosis detected but doppler windows/interrogation suboptimal. Spectral Doppler shows impaired relaxation pattern of left ventricular diastolic filling. Normal RV size and function. No pericardial effusion. Unable to estimate pulmonary artery pressure. Performing Organization Address City/[facility] Phone Number SYN[facility] [address] [place] [address] * Thyroid stimulating hormone (04/07/2018 4:58 AM FAMILY PRACTICE PHYSICIAN) TSH 2.317 0.270 - 4.200 uIU/mL [facility] Specimen Plasma specimen Performing Organization Address City/[facility]/Zipcode [place] Number [place] [address], [address] [place] [address] PATHOLOGY AND GENOMIC MEDICINE [facility] THE [address] [facility] [phone] * Folate level (04/07/2018 4:58 AM FAMILY PRACTICE PHYSICIAN) Folate 9.0 4.8 - 24.2 ng/mL [facility] Specimen Serum Performing Organization Address [facility]/Zipcode Phone Number [facility] DEPARTMENT OF [address] [place] [address] PATHOLOGY [place] [address] HOSPITAL * Vitamin B12 level (04/07/2018 4:58 AM FAMILY PRACTICE PHYSICIAN) Vitamin B12 445 211 - 946 pg/mL DAWSON Comment: HINDU Significant overlap exists HOSPITAL between normal and deficiency states. However, most patients with deficiencies will have Serum B12 <200 pg/mL. Specimen Serum Performing Organization Address [facility] Phone Number [facility] DEPARTMENT OF [address] [place] [address] PATHOLOGY AND GENOMIC MEDICINE DAWSON [place] [address] [place] [address] HOSPITAL * MRI Brain Wo Contrast (04/06/2018 10:51 PM FAMILY PRACTICE PHYSICIAN) Specimen Narrative Performed At [facility] EXAMINATION: MRI BRAIN WO CONTRAST COMPARISON: March 21, 2009 CLINICAL HISTORY frequent fallsunsteady gait. TECHNIQUE: Multiplanar multisequence examination was performed without contrast. FINDINGS: There is no definite diffusion restriction. There is ventricular and sulcal dilatation. There is tiny chronic lacune in the left basal ganglia and minimal chronic microvascular gliosis in the frontal subcortical region. There is no acute hemorrhage or extra-axial mass or fluid collection or hydrocephalus. IMPRESSION: Stable mild involutional changes Interval evolution of minimal chronic microvascular ischemic changes since 2009. No acute ischemia, acute hemorrhage, or fluid collections. [id number] Procedure Note Interface, Radiology Results Incoming - 04/06/2018 10:56 PM FAMILY PRACTICE PHYSICIAN EXAMINATION: MRI BRAIN WO CONTRAST COMPARISON: March 21, 2009 CLINICAL HISTORY frequent falls unsteady gait. TECHNIQUE: Multiplanar multisequence examination was performed without contrast. FINDINGS: There is no definite diffusion restriction. There is ventricular and sulcal dilatation. There is tiny chronic lacune in the left basal ganglia and minimal chronic microvascular gliosis in the frontal subcortical region. There is no acute hemorrhage or extra-axial mass or fluid collection or hydrocephalus. IMPRESSION: Stable mild involutional changes Interval evolution of minimal chronic microvascular ischemic changes since 2009. No acute ischemia, acute hemorrhage, or fluid collections. [id number] Performing Organization Address [facility]/Zipcode Phone Number [facility] [address] [place] [address] * Alcohol level, blood (04/06/2018 6:50 PM FAMILY PRACTICE PHYSICIAN) Alcohol 146.2 mg/dL DAWSON Comment: [facility] THE [facility] Detected Legal Intoxication in [place]80 mg/dL (0.08%) - Whole Blood Toxic Concentration 200 mg/dL (0.2%) Potentially Fatal3 50 - 500 mg/dL (0.35 - 0.5%) Alcohol percent 0.146 % [facility] Specimen Plasma specimen Performing Organization Address City/State/Zipcode Phone Number [facility] DEPARTMENT OF , [address] [place] [address] PATHOLOGY AND GENOMIC MEDICINE DA[place] THE [address] [facility] [phone] * Acetaminophen level (04/06/2018 6:50 PM FAMILY PRACTICE PHYSICIAN) Acetaminophen <8.0 (L) 10.0 - 30.0 ug/mL DAWSON level [facility] Specimen Plasma specimen Performing Organization Address City/[facility] Phone Number [facility] DEPARTMENT OF , [address] [place] [address] PATHOLOGY AND GENOMIC MEDICINE [place] [address] [facility] [phone] * Salicylate level (04/06/2018 6:50 PM FAMILY PRACTICE PHYSICIAN) Salicylate <0.4 (L) 3.0 - 30.0 mg/dL [facility] Specimen Plasma specimen Performing Organization Address City/[facility] Phone Number [facility] DEPARTMENT OF [address] [place] [address] PATHOLOGY AND GENOMIC MEDICINE [place] [address] [facility] [phone] * Urine drugs of abuse screen (04/06/2018 5:48 PM FAMILY PRACTICE PHYSICIAN) Amphetamine Negative DAWSON screen, urine [facility] Barbiturate Negative [facility] screen, urine [facility] Benzodiazepine Positive (A) [facility] screen, urine [facility] Cannabinoid Negative [facility] screen, urine [facility] Cocaine screen, Negative [facility]SON urine [facility] Methadone Negative DAWSON metabolite [facility]U THE (EDDP), urine [facility] Opiates screen, Negative DAWSON urine [facility] Oxycodone Negative [facility] screen, urine [facility] Phencyclidine Negative [facility] screen, urine [facility] Tricyclic Negative [facility]SON screen, urine Comment: [facility] THE Drug screen minimum [facility] concentration of detectability HOSPITAL Amphetamines 1000 ng/mL Barbiturates 200 ng/mL Benzodiazepines 300 ng/mL Cocaine 300 ng/mL Methadone 300 ng/mL Opiates 300 ng/mL Oxycodone 300 ng/mL Phencyclidine 25 ng/mL Cannabinoids 50 ng/mL Tricyclics 1000 ng/mL Results are from screening tests and should only be used for medical evaluation. Drug testing for legal purposes requires definitive (or confirmatory) testing methods, which are available upon request. Contact the laboratory if definitive testing is required. Specimen Urine Performing Organization Address City/State/Zipcode Phone Number [facility] [place] [address], [address] [place] [address] PATHOLOGY AND GENOMIC MEDICINE [facility] THE [address] [facility] [phone] * CT Cervical Spine Wo Contrast (04/06/2018 5:45 PM FAMILY PRACTICE PHYSICIAN) Specimen Narrative Performed At Study:CT CERVICAL SPINE WO CONTRAST RADIANT History:fallhead injury COMPARISON: None. TECHNIQUE: Multiple axial CT images of the cervical spine obtained without IV contrast. Sagittal and coronal reconstructions were done. CT imaging was performed with iterative reconstruction technique and/or automated exposure control to reduce radiation dose. FINDINGS: There is mild reversal of the cervical lordosis likely degenerative. There are no subluxations. Vertebral body heights are within normal limits. There is no acute fracture. Moderate disc space loss at C4-5, C5-6, C6-7 with endplate osteophytes indicating degenerative disc disease. There is some foraminal stenosis at this levels from spondylosis. No significant canal stenosis. There is no canal or foraminal stenosis within the limitations of a CT exam. Paravertebral soft tissues are unremarkable. There is no soft tissue edema. Visualized upper chest is unremarkable. IMPRESSION: No acute abnormality. [id number] Procedure Note Interface, Radiology Results Incoming - 04/06/2018 6:01 PM FAMILY PRACTICE PHYSICIAN Study:CT CERVICAL SPINE WO CONTRAST History:fall head injury COMPARISON: None. TECHNIQUE: Multiple axial CT images of the cervical spine obtained without IV contrast. Sagittal and coronal reconstructions were done. CT imaging was performed with iterative reconstruction technique and/or automated exposure control to reduce radiation dose. FINDINGS: There is mild reversal of the cervical lordosis likely degenerative. There are no subluxations. Vertebral body heights are within normal limits. There is no acute fracture. Moderate disc space loss at C4-5, C5-6, C6-7 with endplate osteophytes indicating degenerative disc disease. There is some foraminal stenosis at this levels from spondylosis. No significant canal stenosis. There is no canal or foraminal stenosis within the limitations of a CT exam. Paravertebral soft tissues are unremarkable. There is no soft tissue edema. Visualized upper chest is unremarkable. IMPRESSION: No acute abnormality. [id number] Performing Organization Address City/State/Zipcode Phone Number [facility] [address] [place] [address] * CT Head Wo Contrast (04/06/2018 5:45 PM FAMILY PRACTICE PHYSICIAN) Specimen Narrative Performed At EXAMINATION:[facility] CLIN[facility] HISTORY:fallhead injury COMPARISON:None. TECHNIQUE: Noncontrast head CT performed using radiation dose reduction techniques.Technical factors are evaluated and adjusted to ensure appropriate moderation of exposure.Automated dose management technology is applied to adjust radiation exposure while achieving a diagnostic quality image. FINDINGS: No evidence of acute intracranial hemorrhage, mass, mass effect, midline shift, or acute infarct. Ventricles and sulci are normal in appearance for age.Scattered subcortical and periventricular white matter hypoattenuation likely reflecting mild chronic microvascular ischemic changes. Basal cisterns are clear. Calvarium is intact. Arteriosclerosis of the cavernous and paraclinoid internal carotid arteries. Marked diminution of the basilar artery. Orbits are normal in appearance. Small mucous retention cysts and polypoid mucosal thickening within the maxillary sinuses. Mastoid air cells are clear. IMPRESSION: 1. No CT evidence of acute intracranial abnormality. [id number] Procedure Note Interface, Radiology Results Incoming - 04/06/2018 5:54 PM FAMILY PRACTICE PHYSICIAN EXAMINATION: CT HEAD WO CONTRAST CLINICAL HISTORY: fall head injury COMPARISON: None. TECHNIQUE: Noncontrast head CT performed using radiation dose reduction techniques. Technical factors are evaluated and adjusted to ensure appropriate moderation of exposure. Automated dose management technology is applied to adjust radiation exposure while achieving a diagnostic quality image. FINDINGS: No evidence of acute intracranial hemorrhage, mass, mass effect, midline shift, or acute infarct. Ventricles and sulci are normal in appearance for age. Scattered subcortical and periventricular white matter hypoattenuation likely reflecting mild chronic microvascular ischemic changes. Basal cisterns are clear. Calvarium is intact. Arteriosclerosis of the cavernous and paraclinoid internal carotid arteries. Marked diminution of the basilar artery. Orbits are normal in appearance. Small mucous retention cysts and polypoid mucosal thickening within the maxillary sinuses. Mastoid air cells are clear. IMPRESSION: 1. No CT evidence of acute intracranial abnormality. [id number] Performing Organization Address City/State/Zipcode Phone Number [facility] [address] [place] [address] after 08/07/2017 Advance Directives Patient has advance care planning documents, and code status on file. For more i nformation, please contact: Vance Mchugh [address] [place] [address] Date Inactivated Comments Code Status Date Activated 04/23/2018 9:33 PM Full Code 04/20/2018 1:08 PM Code Status decision reached by: Patient
--- OUTSIDE RECORDS SUMMARY | 2018-08-08 21:08 | XMS REPORT | Clinical Summary ---
Author Author [facility] Address Unknown Phone Unavailable Care Team Providers Care Dog Control Officer Name Role Phone PCP Unavailable Allergies Not on File Medications Not on file Active Problems Not on file Social History Date Tobacco Use Types Packs/Day Years Used Never Assessed Sex Assigned at Date Recorded Not on file Industry Job Start Date Occupation Not on file Not on file Not on file Travel End Travel History Travel Start No recent travel history available. Last Filed Vital Signs Not on file Plan of Treatment Not on file Results Not on fileafter 08/07/2017 Insurance Payer Benefit Subscriber ID Type Phone Address Plan / Group [employer] - MGD CARE [employer] xxxxxxxxxxx HMO/POS HMO/POS/OP EN ACCESS
--- OUTSIDE RECORDS SUMMARY | 2018-08-08 21:10 | XMS REPORT | Continuity of Care Document ---
Author Author [employer] Organization [employer] Address Unknown Phone Unavailable Care Team Providers Care Meeting Specialist Name Role Phone [employer] Information Code [employer] Unavailable Unavailable Problems Problem Status Onset Date Classification Date Reported Comments Source Weakness 01/06/2018 05/06/2018 [facility] Encounter for other administrative examinations 10/19/2017 03/20/2018 [facility] HOSPITAL FOLLOW UP WITH MONITOR 2 WKS Active 10/18/2017 [facility] CODE STROKE POSS Active 10/16/2017 [facility] ATAXIA, RIGHT SIDED WEAKNESS Active 10/16/2017 [facility] 2 WKS FOLLOW UP Active 08/19/2017 [facility] I50.9, I10 Active 06/03/2017 [facility] Hypertensive heart disease with heart failure 05/28/2017 08/26/2017 [facility] I50.9 Active 05/20/2017 [facility] Atherosclerosis of mentasta arteries of extremities with intermittent claudication, bilateral legs 04/30/2017 07/31/2017 [facility] Other complications of procedures, not elsewhere classified, initial encounter 04/20/2017 07/21/2017 [facility] I70.213 - ATHSCL TOHONO [place] ARTERIES OF EXTR Active 04/13/2017 [facility] 6 MONTHS FOLLOW UP Active 04/13/2017 [facility] R42 R06.02 I10 R60.9 Active 04/05/2017 [facility] FOLLOW UP 2 WKS Active 04/05/2017 [facility] HOSPITAL FOLLOW UP Active 04/02/2017 [facility] FOLLOW UP Active 04/01/2017 [facility] Non-ST elevation myocardial infarction 03/23/2017 06/13/2017 [facility] 1 WK F/U Active 03/18/2017 [facility] HOSPITAL F/U Active 03/09/2017 [facility] 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 02/26/2017 05/28/2017 [facility] CORONARY ARTERY DISEASE Active 02/19/2017 [facility] CP Active 02/15/2017 [facility] PNEUMONIA, CHEST PAIN Active 02/15/2017 [facility] Pneumonia, unspecified organism 05/28/2017 [facility] Acute on chronic diastolic heart failure 05/28/2017 [facility] Type 2 diabetes mellitus without complications 05/06/2018 [facility] Hyperlipidemia, unspecified 05/06/2018 [facility] Morbid obesity due to excess calories 05/28/2017 [facility] Hypomagnesemia 05/28/2017 [facility] Body mass index 29.0-29.9, adult 05/28/2017 [facility] Diabetes Resolved Problem 05/28/2018 [facility] [place] Hypercholesteremia Resolved Problem 05/28/2018 [facility] [place], OPISebastián Mccaul[facility] Hypertension Resolved Problem 05/28/2018 [facility] [place] Acute systolic heart failure 06/13/2017 [facility] Cardiogenic shock 06/13/2017 [facility] Respiratory failure, unspecified with hypercapnia 06/13/2017 [facility] Encephalopathy, unspecified 06/13/2017 [facility] Ventricular fibrillation 06/13/2017 [facility] Ventricular tachycardia 06/13/2017 [facility] Acute posthemorrhagic anemia 06/13/2017 [facility] Acidosis 06/13/2017 [facility] Other specified coagulation defects 06/13/2017 [facility] Stenosis of other vascular prosthetic devices, implants and grafts, initial encounter 06/13/2017 [facility] Intraoperative hemorrhage and hematoma of a circulatory system organ or structure complicating a cardiac bypass 06/13/2017 [facility] Thrombocytopenia, unspecified 06/13/2017 [facility] Ischemic cardiomyopathy 06/13/2017 [facility] Presence of coronary angioplasty implant and graft 06/13/2017 [facility] nursing home use of oral hypoglycemic drugs 06/13/2017 [facility] Allergy status to other antibiotic agents status 06/13/2017 [facility] Surgical operation with implant of artificial internal device as the cause of abnormal reaction of the patient, or of later complication, without mention of misadventure at the time of the procedure 06/13/2017 [facility] Nonrheumatic aortic stenosis 06/13/2017 [facility] Postprocedural hypotension 06/13/2017 [facility] Physical restraint status 06/13/2017 [facility] Other specified peripheral vascular diseases 06/13/2017 [facility] Restlessness and agitation 06/13/2017 [facility] Surgical operation with anastomosis, bypass or graft as the cause of abnormal reaction of the patient, or of later complication, without mention of misadventure at the time of the procedure 06/13/2017 [facility] Personal history of urinary calculi 06/13/2017 [facility] Encounter for immunization 06/13/2017 [facility] Cellulitis, unspecified 07/21/2017 [facility]ul[facility] Cutaneous abscess of left lower limb 07/21/2017 [facility] Mccaul[facility] Pain in left leg 07/21/2017 [facility] OPID Mccaulley Localized edema 07/21/2017 [facility] Essential hypertension 07/21/2017 [facility] hypercholesterolemia, unspecified 06/23/2017 [facility] Body mass index 25.0-25.9, adult 06/23/2017 [facility] Presence of aortocoronary bypass graft 06/23/2017 [facility] Dizziness and giddiness 07/12/2017 [facility] Shortness of breath 07/12/2017 [facility] Edema, unspecified 07/12/2017 [facility] Left anterior fascicular block 08/26/2017 [facility] Abnormal electrocardiogram [ECG] [EKG] 08/26/2017 [facility] Presence of cardiac pacemaker 08/26/2017 [facility] Other specified postprocedural states 07/31/2017 [facility] Mccaulley Atherosclerotic heart disease of mentasta coronary artery without angina pectoris 05/06/2018 [facility] OP[facility] Mccaulley,[facility] Hypertensive heart and chronic kidney disease with heart failure and stage 1 through stage 4 chronic kidney disease, or unspecified chronic kidney disease 05/06/2018 [facility] Personal history of transient ischemic attack , and cerebral infarction without residual deficits 05/06/2018 [facility] Chronic systolic heart failure 05/06/2018 [facility] Chronic kidney disease, stage 3 05/06/2018 [facility] Type 2 diabetes mellitus with diabetic chronic kidney disease 05/06/2018 [facility] Obesity, unspecified 05/06/2018 [facility] Ataxia, unspecified 05/06/2018 [facility] Atherosclerosis of aorta 05/06/2018 [facility] Degenerative disease of nervous system, unspecified 05/06/2018 [facility] Cerebral cysts 05/06/2018 [facility] nursing home use of antithrombotics/antiplatelets 05/06/2018 [facility] 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 05/06/2018 [facility] nursing home use of aspirin 05/06/2018 [facility] PNEUMONIA, UNSPECIFIED ORGANISM Active [facility] ATAXIA, UNSPECIFIED Active [facility]ul[facility] WEAKNESS Active [facility] Medications Medication Details Route Status Patient Instructions Ordering Provider Order Date Source Insulin Lispro 8 unit, 0.08 mL, Route: SUB-Q, Drug form: SOLN, TID-Before Meals, Dosing Weight 100.909, kg, PRN Blood Glucose Results, Start date: 10/17/17 10:45:00 CDT, Duration: 30 day, Stop date: 11/16/17 10:44: 00 CDTNotes: (Same as: Humalog ) Roll in palms of hands gently; Do not shake `vigorously. "Single Patient Use Only " WASTE: F/P - Black; E - Municipal Trash Bin Stable for 28 days at room temperature. Expires in days from Date Inactive 10/17/2017 [facility] Dextrose 50% Syringe 12.5 gm, 25 mL, Route: IVP, Drug Form: INJ, Dosing Weight 100.909, kg, PRN, PRN Blood Glucose Results, Start date: 10/17/17 10:45:00 CDT, Duration: 30 day, Stop date: 11/16/17 10:44:00 CDT Inactive 10/17/2017 [facility] Glucagon 1 mg, Route: IM, Drug form: PDR/INJ, PRN, Dosing Weight 100.909, kg, PRN Blood Glucose Results, Start date: 10/17/17 10:45:00 CDT, Duration: 30 day, Stop date: 11/16/17 10:44:00 CDT Inactive 10/17/2017 [facility] potassium phosphate-sodium phosphate 250 mg-45 mg-298 mg oral tablet 250 mg, 1 tab, Route: PO, Drug Form: TAB, ONCE, Start date: 10/17/17 10:31:00 CDT, Stop date: 10/17/17 10:31:00 CDTNotes: (Same as: K-Phos Neutral, Phospha 250 Neutral) Inactive 10/17/2017 [facility] K-Phos Original 250 mg, Route: PO, Drug form: TAB, ONCE, Dosing Weight 100.909, kg, Start date: 10/17/17 10:25:00 CDT, Stop date: 10/17/17 10:25:00 CDT Inactive 10/17/2017 [facility] MAGNESIUM GLUCONATE 500 mg, 1 tab, Route: PO, Drug form: TAB, ONCE, Dosing Weight 100.909, kg, Start date: 10/17/17 10:25:00 CDT, Stop date: 10/17/17 10:25:00 CDTNotes: (Same as: [place]) Magnesium gluconate 500mg=27mg elemental magnesium Dose= mg magnesium gluconate(___mg elemental magnesium) Inactive 10/17/2017 [facility] Aspirin 81 MG Enteric Coated Tablet 81 mg, 1 tab, Route: PO, Drug form: ECTAB, Daily, Dosing Weight 100.909, kg, Start date: 10/17/17 9:00:00 CDT, Duration: 30 day, Stop date: 11/15/17 9:00:00 CDTNotes: Do not crush or chew. (Same As: Ecotrin) Inactive 10/17/2017 [facility] Plavix 75 mg, 1 tab, Route: PO, Drug form: TAB, Daily, Dosing Weight 100.909, kg, Start date: 10/17/17 9:00:00 CDT, Duration: 30 day, Stop date: 11/15/17 9:00:00 CDTNotes: (Same As: Plavix) No Longer Active 10/17/2017 [facility] clopidogrel 75 mg, 1 tab, Route: PO, Drug form: TAB, Daily, Dosing Weight 100.909, kg, Start date: 10/17/17 9:00:00 CDT, Duration: 30 day, Stop date: 11/15/17 9:00:00 CDTNotes: (Same As: Plavix) Inactive 10/17/2017 [facility] Vitamin B12 1,000 microgram, 1 mL, Route: IM, Drug form: INJ, ONCE, Dosing Weight 100.909, kg, Start date: 10/17/17 8:05:00 CDT, Stop date: 10/17/17 8:05:00 CDTNotes: (Same As: Vitamin B12) Inactive 10/17/2017 [facility] pantoprazole 40 mg, 1 tab, Route: PO, Drug form: ECTAB, Before Breakfast, Dosing Weight 100.909, kg, Start date: 10/17/17 7:30:00 CDT, Duration: 30 day, Stop date: 11/15/17 7:30:00 CDTNotes: Tablet should not be chewed or crushed. (Same as: Protonix) Inactive 10/17/2017 [facility] atorvastatin 40 mg, 1 tab, Route: PO, Drug form: TAB, Bedtime, Dosing Weight 100.909, kg, Start date: 10/16/17 21:00:00 CDT, Duration: 30 day, Stop date: 11/14/17 21:00:00 CDTNotes: (Same as: Lipitor) No Longer Active 10/17/2017 [facility] 24 HR Metoprolol Tartrate 25 MG Extended Release Tablet [Toprol] 25 mg, 1 tab, Route: PO, Drug form: ERTAB, Daily, Start date: 10/16/17 9:00:00 CDT, Duration: 30 day, Stop date: 11/14/17 9:00:00 CDTNotes: (Same as: Toprol XL) Do Not Crush Inactive 10/16/2017 [facility] Corlanor 2.5 mg, 0.5 tab, Route: PO, Drug form: TAB, BID, Dosing Weight 100.909, kg, Start date: 10/16/17 9:00:00 CDT, Duration: 30 day, Stop date: 11/14/17 17:00:00 CDTNotes: Hold and contact prescriber if HR Inactive 10/16/2017 [facility] Finasteride 5 mg, 1 tab, Route: PO, Drug form: TAB, Daily, Dosing Weight 100.909, kg, Start date: 10/16/17 9:00:00 CDT, Duration: 30 day, Stop date: 11/14/17 9:00:00 CDTNotes: (Same as: Proscar) "Do Not Crush" Women of childbearing age should not touch or handle broken tablets No Longer Active 10/16/2017 [facility] Acetaminophen 325 MG / Hydrocodone Bitartrate 5 MG Oral Tablet [[place] 5/325] 1 tab, Route: PO, Drug Form: TAB, Dosing Weight 100.909, kg, Q6H, PRN Pain Score 1-3, Start date: 10/16/17 8:39:00 CDT, Duration: 30 day, Stop date: 11/15/17 8:38:00 CDTNotes: (Same as: [place] 325/5) Do not exceed 4gm/day of acetaminophen. No Longer Active 10/16/2017 [facility] pantoprazole 40 mg, PO, Daily, # 30 tab, 0 Refill(s) Active 10/16/2017 [facility] Metformin hydrochloride 500 MG Oral Tablet 500 mg=1 tab, PO, BID, 0 Refill(s) Active 10/16/2017 Mccaul[facility] atorvastatin 40 mg oral tablet 40 mg=1 tab, PO, Bedtime, # 30 tab, 0 Refill(s) Active 10/16/2017 [facility] Furosemide 20 mg, PO, Q12H, 0 Refill(s) No Longer Active 10/16/2017 Mccaul[facility] clopidogrel 75 mg, PO, Daily, 0 Refill(s) Active 10/16/2017 Mccaul[facility] Finasteride 5 mg=1 tab, PO, Daily, # 30 tab, 0 Refill(s) Active 10/16/2017 Mccaulley NS 500 mL 500 mL, Rate: 75 ml/hr, Infuse over: 6.7 hr, Route: IV, Dosing Weight 100.909 kg, Total Volume: 500, Start date: 10/16/17 5:05:00 CDT, Duration: 1 doses or times, Stop date: 10/16/17 11:46:00 CDT, 2.33, m2 Inactive 10/16/2017 [facility] NS 1,000 mL 1,000 mL, Rate: 150 ml/hr, Infuse over: 6.7 hr, Route: IV, Dosing Weight 100.909 kg, Total Volume: 1,000, Start date: 10/16/17 4:56:00 CDT, Duration: 1 doses or times, Stop date: 10/16/17 11:37:00 CDT, 2.33, m2 Inactive 10/16/2017 [facility] Acetaminophen 300 MG / Codeine Phosphate 60 MG Oral Tablet [Tylenol with Codeine #4] 1 tab, PO, BID, PRN Pain, # 32 tab, 0 Refill(s) Active 10/16/2017 [facility] Magnesium Oxide 400 mg, PO, Daily, 0 Refill(s) No Longer Active 10/16/2017 [facility] Aspirin 324 mg, 4 tab, Route: CHEW, Drug form: CHEWTAB, ONCE, Dosing Weight 113.636, kg, Priority: STAT, Start date: 10/16/17 2:00:00 CDT, Stop date: 10/16/17 2:00:00 CDTNotes: Take with food. Inactive 10/16/2017 [facility] Plavix 75 mg, 1 tab, Route: PO, Drug form: TAB, ONCE, Dosing Weight 113.636, kg, Priority: STAT, Start date: 10/16/17 2:00:00 CDT, Stop date: 10/16/17 2:00:00 CDTNotes: (Same As: Plavix) Inactive 10/16/2017 [facility] Saline Flush 0.9% 10 mL, Route: IVP, Drug Form: INJ, Dosing Weight 115.455, kg, PRN, PRN Line Flush, Start date: 10/16/17 0:59:00 CDT, Duration: 30 day, Stop date: 11/15/17 0:58:00 CDTNotes: Same as: BD Posiflush Sterile No Longer Active 10/16/2017 [facility] multivitamin Daily Active 08/31/2017 [facility] Glucosamine Chondroitin PO, Daily Active 08/31/2017 [facility] ivabradine 5 MG Oral Tablet [Corlanor] 2.5 mg=0.5 tab, PO, BID No Longer Active 08/31/2017 [facility] 24 HR Metoprolol Tartrate 50 MG Extended Release Tablet [Toprol] 50 mg=1 tab, PO, Daily, # 30 tab Active 06/03/2017 [facility] sacubitril 49 MG / valsartan 51 MG Oral Tablet [Entresto] 1 tab, PO, BID, # 56 tab Active 06/03/2017 [facility] atorvastatin 40 MG Oral Tablet [Lipitor] 40 mg=1 tab, PO, Bedtime, # 30 tab, 3 Refill(s), Pharmacy: [facility] [id number] Active 05/20/2017 [facility] Metformin hydrochloride 500 MG Oral Tablet 500 mg=1 tab, PO, BID-Meals, # 60 tab, 1 Refill(s), Pharmacy: [facility] [id number] Active 05/20/2017 [facility] 24 HR Metoprolol Tartrate 25 MG Extended Release Tablet [Toprol] 25 mg=1 tab, PO, Daily, # 30 tab, 3 Refill(s), Pharmacy: [facility] [id number] No Longer Active 05/20/2017 [facility] sacubitril 24 MG / valsartan 26 MG Oral Tablet [Entresto] 1 tab, PO, BID, # 60 tab, 3 Refill(s), Pharmacy: [facility] [id number] No Longer Active 05/20/2017 [facility] Furosemide 20 MG Oral Tablet [Lasix] 20 mg=1 tab, PO, Q12H, # 30 tab, 1 Refill(s), Pharmacy: [facility] [id number] Active 04/05/2017 [facility] finasteride 5 mg oral tablet 5 mg=1 tab, PO, Daily, # 30 tab, 1 Refill(s), Pharmacy: [facility] [id number] Active 04/05/2017 [facility] tramadol hydrochloride 50 MG Oral Tablet 50 mg=1 tab, PO, Q6H, PRN Pain, X 30 day, # 60 tab, 1 Refill(s), other No Longer Active 04/05/2017 [facility] Acetaminophen 300 MG / Codeine Phosphate 30 MG Oral Tablet [Tylenol with Codeine #3] 1 - 2 tab, PO, Q6H, PRN Pain, X 14 day, # 30 tab, 0 Refill(s), other No Longer Active 04/05/2017 [facility] Amoxicillin 875 MG / Clavulanate 125 MG Oral Tablet [Augmentin 875-mg] 875 mg=1 tab, PO, BID, X 7 day, # 14 tab, 0 Refill(s), Pharmacy: [facility] [id number] No Longer Active 04/05/2017 [facility] Metformin hydrochloride 500 MG Oral Tablet 500 mg=1 tab, PO, BID-Before Meals, # 30 tab, 1 Refill(s) Active 03/07/2017 [facility] Acetaminophen 300 MG / Codeine Phosphate 30 MG Oral Tablet [Tylenol with Codeine #3] See Instructions, 1-2 tab PO Q12hrs for pain, # 30 tab, 0 Refill(s) No Longer Active 03/07/2017 [facility] pantoprazole 40 mg oral enteric coated tablet 40 mg=1 tab, PO, Before Breakfast, # 30 tab, 2 Refill(s) Active 03/07/2017 [facility] clopidogrel 75 mg oral tablet 75 mg=1 tab, PO, Daily, # 30 tab, 2 Refill(s) Active 03/07/2017 [facility] metoprolol tartrate 25 mg oral tablet 12.5 mg=0.5 tab, PO, Q12H, # 30 tab, 2 Refill(s) No Longer Active 03/07/2017 [facility] Insulin Glargine 100 UNT/ML Injectable Solution 20 unit, SUB-Q, Before Dinner, # 10 mL, 2 Refill(s) Inactive 03/07/2017 [facility] Furosemide 20 MG Oral Tablet 20 mg=1 tab, PO, Daily, # 30 tab, 2 Refill(s) No Longer Active 03/07/2017 [facility] Morphine 2 mg, 0.5 mL, Route: IVP, Drug form: INJ, ONCE, Dosing Weight 100.909, kg, Start date: 03/06/17 19:56:00 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, Stop date: 03/06/17 19:56:00 CSTNotes: (Same as:MORPhine Sulfate) Inactive 03/07/2017 [facility] Tramadol 50 mg, 1 tab, Route: PO, Drug form: TAB, ONCE, Dosing Weight 100.909, kg, Priority: NOW, Start date: 03/05/17 22:34:00 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, Stop date: 03/05/17 22:34:00 CSTNotes: Not to exceed 400mg/day. (Same As: U ltram) Inactive 03/06/2017 [facility] Insulin Glargine 20 unit, 0.2 mL, Route: SUB-Q, Drug form: SOLN, Before Dinner, Dosing Weight 100.909, kg, Start date: 03/05/17 16:30:00 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, Duration: 30 day, Stop date: 04/03/17 16:30:00 CSTNotes: (Same as: Lantus) Do not hold insulin without contacting prescriber WASTE: F/P - Black; E - Municipal Trash Bin "single patient use only" No Longer Active 03/05/2017 [facility] Insulin Lispro 4 unit, 0.04 mL, Route: SUB-Q, Drug form: SOLN, TID-Before Meals, Dosing Weight 100.909, kg, PRN Blood Glucose Results, Start date: 03/04/17 15:15:00 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, Duration: 30 day, Stop date: 04/03/17 15:14: 00 CSTNotes: (Same as: Humalog ) Roll in palms of hands gently; Do not shake `vigorously. "Single Patient Use Only " WASTE: F/P - Black; E - Municipal Trash Bin Stable for 28 days at room temperature. Expires in days from Date No Longer Active 03/04/2017 [facility] Insulin Glargine 15 unit, 0.15 mL, Route: SUB-Q, Drug form: SOLN, Before Dinner, Dosing Weight 100.909, kg, Start date: 03/03/17 16:30:00 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, Stop date: 04/01/17 16:30:00 CSTNotes: (Same as: Lantus) Do not hold insu connie without contacting prescriber WASTE: F/P - Black; E - Municipal Trash Bin "single patient use only" No Longer Active 03/03/2017 [facility] Furosemide 20 MG Oral Tablet [Lasix] 20 mg, 1 tab, Route: PO, Drug form: TAB, Daily, Dosing Weight 100.909, kg, Start date: 03/03/17 9:52:00 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, Duration: 30 day, Stop date: 04/02/17 9:00:00 CSTNotes: (Same as: Lasix) May cause GI upset. Give with food or milk. No Longer Active 03/03/2017 [facility] Furosemide 40 MG Oral Tablet [Lasix] 10 mg, 0.5 tab, Route: PO, Drug form: TAB, Daily, Dosing Weight 100.909, kg, Start date: 03/03/17 9:00:00 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, Duration: 30 day, Stop date: 04/01/17 9:00:00 CSTNotes: (Same as: Lasix) 10 mg=1/2 x 20 mg TAB May cause GI upset. Give with food or milk. Inactive 03/03/2017 [facility] Miralax 17 gm, 1 pkt, Route: PO, Drug form: PWDR, Daily, Dosing Weight 100.909, kg, Start date: 03/03/17 9:00:00 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, Duration: 30 day, Stop date: 04/01/17 9:00:00 CSTNotes: Dissolve in 8 oz of water or juice. (Same as: Miralax) No Longer Active 03/03/2017 [facility] Seroquel 25 mg, 1 tab, Route: PO, Drug form: TAB, Bedtime, Dosing Weight 100.909, kg, Start date: 03/02/17 21:00:00 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, Duration: 30 day, Stop date: 03/31/17 21:00:00 CSTNotes: (Same as: SEROquel) No Longer Active 03/03/2017 [facility] Ferrlecit 125 mg, 10 mL, Route: IVPB, Daily, Dosing Weight 100.909, kg, Start date: 03/02/17 9:45:00 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, Duration: 30 day, Stop date: 04/01/17 9:00:00 CSTNotes: (sodium ferric gluconate complex (elemental iron) 62.5 mg/5 ml INJ) "Limited stability. Use immediately after admixture" (Same as: Ferrlecit) MEDICATION WASTE Product Size: 62.5 mg Product Wasted: __0_ mg No Longer Active 03/02/2017 [facility] Lasix 20 mg, 2 mL, Route: IVP, Drug form: INJ, ONCE, Dosing Weight 100.909, kg, Start date: 03/02/17 9:45:00 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, Stop date: 03/02/17 9:45:00 CSTNotes: (Same as: Lasix) Inactive 03/02/2017 [facility] clopidogrel 75 mg, 1 tab, Route: PO, Drug form: TAB, Daily, Dosing Weight 100.909, kg, Start date: 03/02/17 9:00:00 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, Duration: 30 day, Stop date: 03/31/17 9:00:00 CSTNotes: (Same As: Plavix) No Longer Active 03/02/2017 [facility] pantoprazole 40 mg, 1 tab, Route: PO, Drug form: ECTAB, Before Breakfast, Dosing Weight 100.909, kg, Start date: 03/02/17 7:30:00 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, Duration: 30 day, Stop date: 03/31/17 7:30:00 CSTNotes: Tablet should not be chewed or crushed. (Same as: Protonix) No Longer Active 03/02/2017 [facility] Insulin Lispro 4 unit, 0.04 mL, Route: SUB-Q, Drug form: SOLN, Bedtime, Dosing Weight 100.909, kg, PRN Blood Glucose Results, Start date: 03/01/17 23:39:00 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, Duration: 30 day, Stop date: 03/31/17 23:38:00 CSTNotes: (Same as: Humalog ) Roll in palms of hands gently; Do not shake `vigorously. "Single Patient Use Only " WASTE: F/P - Black; E - Municipal Trash Bin Stable for 28 days at room temperature. Expires in days from Date No Longer Active 03/02/2017 [facility] metoprolol tartrate 12.5 mg, 0.5 tab, Route: PO, Drug form: TAB, Q12H, Dosing Weight 100.909, kg, Start date: 03/01/17 21:00:00 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, Duration: 30 day, Stop date: 03/31/17 9:00:00 CSTNotes: (Same as: Lopressor) 12.5 mg=1/2 X 25 mg TAB No Longer Active 03/02/2017 [facility] Acetaminophen 325 MG / Hydrocodone Bitartrate 5 MG Oral Tablet [[place] 5/325] 1 tab, Route: PO, Drug Form: TAB, Dosing Weight 100.909, kg, Q4H, PRN Pain Score 1-3, Start date: 03/01/17 16:08:00 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, Duration: 30 day, Stop date: 03/31/17 16:07:00 CSTNotes: (Same as: [place] 325/5) Do not exceed 4gm/day of acetaminophen. No Longer Active 03/01/2017 [facility] Seroquel 25 mg, 1 tab, Route: PO, Drug form: TAB, BID, Dosing Weight 100.909, kg, Start date: 02/28/17 17:00:00 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, Stop date: 03/30/17 9:00:00 CSTNotes: (Same as: SEROquel) No Longer Active 02/28/2017 [facility] Sodium Chloride 0.9% IV 1,000 mL + M.V.I.-12 10 mL Daily + folic acid IV 1 mg Daily + thiamine IV 1 1,000 mL, Rate: 100 ml/hr, Infuse over: 10.1 hr, Route: IV, Dosing Weight 100.909 kg, Total Volume: 1,011.2, Start date: 02/28/17 12:59:00 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, Duration: 3 day, Stop date: 03/03/17 12:58:00 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, 2.33, m2 No Longer Active 02/28/2017 [facility] Seroquel 25 mg, 1 tab, Route: PO, Drug form: TAB, ONCE, Dosing Weight 100.909, kg, Priority: STAT, Start date: 02/28/17 11:57:00 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, Stop date: 02/28/17 11:57:00 CSTNotes: (Same as: SEROquel) Inactive 02/28/2017 [facility] Lasix 20 mg, 2 mL, Route: IVP, Drug form: INJ, BID, Dosing Weight 100.909, kg, Start date: 02/27/17 13:20:00 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, Duration: 30 day, Stop date: 03/29/17 9:00:00 CSTNotes: (Same as: Lasix) No Longer Active 02/27/2017 [facility] Seroquel 25 mg, 1 tab, Route: PO, Drug form: TAB, BID, Dosing Weight 100.909, kg, Priority: NOW, Start date: 02/27/17 10:41:00 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, Duration: 30 day, Stop date: 03/29/17 9:00:00 CSTNotes: (Same as: SEROquel) No Longer Active 02/27/2017 [facility] Insulin Glargine 5 unit, 0.05 mL, Route: SUB-Q, Drug form: SOLN, Daily, Dosing Weight 100.909, kg, Start date: 02/27/17 9:00:00 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, Duration: 30 day, Stop date: 03/28/17 9:00:00 CSTNotes: Same as: Lantus) Do not hold insulin without contacting prescriber WASTE: F/P - Black; E - Municipal Trash Bin No Longer Active 02/27/2017 [facility] Acetaminophen 10 MG/ML Injectable Solution 1,000 mg, 100 mL, Route: IV, Drug form: INJ, ONCE, Dosing Weight 100.909, kg, For > or=50 kg, Start date: 02/27/17 3:06:00 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, Stop date: 02/27/17 3:06:00 CSTNotes: Infuse over 15 minutes Do not exceed 4gm/day of acetaminophen MEDICATION WASTE Product Size: 1000 mg Product Wasted: ___ mg Inactive 02/27/2017 [facility] Haldol 3 mg, 0.6 mL, Route: IV, Drug form: INJ, ONCE, Dosing Weight 100.909, kg, Priority: STAT, Start date: 02/26/17 22:41:00 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, Stop date: 02/26/17 22:41:00 CSTNotes: (Same as: Haldol) Inactive 02/27/2017 [facility] heparin 5,000 unit, 1 mL, Route: SUB-Q, Drug form: INJ, Q8H-06, Dosing Weight 100.909, kg, Start date: 02/26/17 22:00:00 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, Duration: 30 day, Stop date: 03/28/17 14:00:00 CSTNotes: porcine heparin No Longer Active 02/27/2017 [facility] Insulin Glargine 8 unit, 0.08 mL, Route: SUB-Q, Drug form: SOLN, Before Dinner, Dosing Weight 100.909, kg, Start date: 02/26/17 18:15:00 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, Stop date: 03/28/17 16:30:00 CSTNotes: (Same as: Lantus) Do not hold insul in without contacting prescriber WASTE: F/P - Black; E - Municipal Trash Bin "single patient use only" No Longer Active 02/27/2017 [facility] Insulin Lispro 4 unit, 0.04 mL, Route: SUB-Q, Drug form: SOLN, TID-Before Meals, Dosing Weight 100.909, kg, PRN Blood Glucose Results, Start date: 02/26/17 17:39:00 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, Duration: 30 day, Stop date: 03/28/17 17:38: 00 CSTNotes: (Same as: Humalog ) Roll in palms of hands gently; Do not shake `vigorously. "Single Patient Use Only " WASTE: F/P - Black; E - Municipal Trash Bin Stable for 28 days at room temperature. Expires in days from Date No Longer Active 02/26/2017 [facility] Dextrose 50% Syringe 25 gm, 50 mL, Route: IVP, Drug Form: INJ, Dosing Weight 100.909, kg, PRN, PRN Blood Glucose Results, Start date: 02/26/17 17:39:00 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, Duration: 30 day, Stop date: 03/28/17 17:38:00 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 No Longer Active 02/26/2017 [facility] Glucagon 1 mg, Route: IM, Drug form: PDR/INJ, PRN, Dosing Weight 100.909, kg, PRN Blood Glucose Results, Start date: 02/26/17 17:39:00 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, Duration: 30 day, Stop date: 03/28/17 17:38:00 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 No Longer Active 02/26/2017 [facility] Dexmedetomidine 400 microgram, 4 mL, Rate: Titrate, Start Dose: 0.2 microgram/kg/hr, Titration: 0.1 microgram/kg/hr every 30 min, Goal(s): comfort, Max Dose: 0.5 microgram/kg/hr, Route: IV, Dosing Weight 100.909 kg, Total Volume: 100, Start date: 02/26/17 16:28:00 CS... No Longer Active 02/26/2017 [facility] Haldol 2 mg, Route: IV, ONCE, Dosing Weight 100.909, kg, Start date: 02/26/17 15:58:00 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, Stop date: 02/26/17 15:58:00 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 Inactive 02/26/2017 [facility] Versed 2 mg, Route: IVP, ONCE, Dosing Weight 100.909, kg, Start date: 02/26/17 15:10:00 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, Stop date: 02/26/17 15:10:00 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 Inactive 02/26/2017 [facility] Midazolam 2 mg, Route: IVP, ONCE, Dosing Weight 100.909, kg, Start date: 02/26/17 7:55:00 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, Stop date: 02/26/17 7:55:00 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 Inactive 02/26/2017 [facility] heparin additive 25,000 unit [400 unit/hr] + Premix Diluent Sodium Chloride 0.45% 500 mL 500 mL, Rate: 8 ml/hr, Infuse over: 62.5 hr, Route: IV, Dosing Weight 100.909 kg, Total Volume: 500 mL, Start date: 02/25/17 21:10:00 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, Duration: 30 day, Stop date: 03/27/17 21:09:00 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, 2.33, [id number]: Total Concentration=50 unit/ ml Total ktcvcn=058 ml Send Med Request 2 hours prior to next bag No Longer Active 02/26/2017 [facility] Famotidine 20 mg, 2 mL, Route: IVP, Drug form: INJ, Q12H, Dosing Weight 100.909, kg, Start date: 02/25/17 21:00:00 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, Duration: 30 day, Stop date: 03/27/17 9:00:00 CSTNotes: (Same as: Pepcid) Can be dilute in 5-10cc NS IVP: Slow IV push over at least 2 minutes. No Longer Active 02/26/2017 [facility] docusate sodium 100 mg oral capsule 100 mg, 1 cap, Route: PO, Drug form: CAP, BID, Dosing Weight 100.909, kg, Start date: 02/25/17 17:00:00 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, Stop date: 03/27/17 9:00:00 CSTNotes: (Same as: Colace) (Do Not Crush) No Longer Active 02/25/2017 [facility] Aspirin 81 MG Chewable Tablet 81 mg, 1 tab, Route: PO, Drug form: CHEWTAB, Daily, Dosing Weight 100.909, kg, Start date: 02/25/17 13:00:00 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, Duration: 30 day, Stop date: 03/27/17 9:00:00 CSTNotes: Take with food. No Longer Active 02/25/2017 [facility] Diphenhydramine 25 mg, 0.5 mL, Route: IVP, Drug form: INJ, Q8H, Dosing Weight 100.909, kg, PRN Itching, Start date: 02/25/17 11:34:00 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, Duration: 30 day, Stop date: 03/27/17 11:33:00 CSTNotes: (Same as: Benadryl) No Longer Active 02/25/2017 [facility] Diphenhydramine 25 mg, 1 cap, Route: PO, Drug form: CAP, TID, Dosing Weight 100.909, kg, PRN Itching, Start date: 02/25/17 11:26:00 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, Duration: 30 day, Stop date: 03/27/17 11:25:00 CSTNotes: (Same as: Benadryl) No Longer Active 02/25/2017 [facility] Famotidine 20 mg, 2 mL, Route: IVP, Drug form: INJ, ONCE, Dosing Weight 100.909, kg, Start date: 02/25/17 11:25:00 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, Stop date: 02/25/17 11:25:00 CSTNotes: (Same as: Pepcid) Can be dilute in 5-10cc NS IVP: Slow IV push over at least 2 minutes. Inactive 02/25/2017 [facility] Versed 2 mg, 2 mL, Route: IV, Drug form: INJ, Q2H, Dosing Weight 100.909, kg, PRN Agitation, Start date: 02/25/17 10:54:00 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, Duration: 30 day, Stop date: 03/27/17 10:53:00 CSTNotes: (Same as: Versed) MEDICATION WASTE Product Size: 2 mg Product Wasted: ___ mg No Longer Active 02/25/2017 [facility] Versed 2 mg, 2 mL, Route: IVP, Drug form: INJ, ONCE, Dosing Weight 100.909, kg, Start date: 02/25/17 10:52:00 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, Stop date: 02/25/17 10:52:00 CSTNotes: (Same as: Versed) MEDICATION WASTE Product Size: 2 mg Product Wasted: ___ mg Inactive 02/25/2017 [facility] Mupirocin 1 appl, Route: NASAL, Q12H, Drug form: OINT, Start date: 02/24/17 21:00:00 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, Stop date: 03/01/17 9:00:00 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, MRSA Decolonization No Longer Active 02/25/2017 [facility] Sodium Chloride 0.9% (titrate) 250 mL 250 mL, Rate: call center trainer for use with blood product administration, Dosing Weight 100.909, kg, Route: IV, Total Volume: 250, Start Date: 02/24/17 19:20:00 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, Duration: 30 day, Stop date: 03/26/17 19:19:00 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, Replace Every: 24 hr No Longer Active 02/25/2017 [facility] Pepcid 20 mg, 2 mL, Route: IV, Drug form: INJ, ONCE, Start date: 02/24/17 13:59:00 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, Stop date: 02/24/17 13:59:00 CSTNotes: (Same as: Pepcid) Can be dilute in 5-10cc NS IVP: Slow IV push over at least 2 minutes. Inactive 02/24/2017 [facility] Zantac 50 mg, Route: IVPB, ONCE, Dosing Weight 100.909, kg, Start date: 02/24/17 13:34:00 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, Stop date: 02/24/17 13:34:00 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 Inactive 02/24/2017 [facility] Diphenhydramine 25 mg, 0.5 mL, Route: IVP, Drug form: INJ, ONCE, Dosing Weight 100.909, kg, PRN Itching, Start date: 02/24/17 13:34:00 CSTNotes: (Same as: Benadryl) Inactive 02/24/2017 [facility] methylPREDNISolone SODium SUCCinate 125 mg, 2 mL, Route: IVP, Drug form: INJ, Q6H, Dosing Weight 100.909, kg, Start date: 02/24/17 12:00:00 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, Duration: 30 day, Stop date: 03/26/17 6:00:00 CSTNotes: (Same as:Solu-MEDROL, A-Methapred) No Longer Active 02/24/2017 [facility] albumin human 5% intravenous solution 12.5 gm, 250 mL, 500 ml/hr, Route: IV, Drug Form: INJ, Dosing Weight 100.909, kg, ONCE, Start date: 02/24/17 11:21:00 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, Stop date: 02/24/17 11:21:00 CSTNotes: LOT#: Mfg: WASTE: F/P - Red; E -Red (Same as: Albuminar) "blood product derivative" Inactive 02/24/2017 [facility] cefepime 1 gm, Route: IVPB, [id number], Dosing Weight 100.909, kg, (CrCl 30 - 49 ml/min), Start date: 02/24/17 10:00:00 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, Duration: 10 day, Stop date: 03/05/17 22:00:00 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, ABX Indication: Immunocompromised Host ProphylaxisNotes: (Same As: Maxipime) MEDICATION WASTE Product Size: 1000 mg Product Wasted: ___ mg No Longer Active 02/24/2017 [facility] Fluconazole 400 mg, 200 mL, Route: IVPB, Drug form: INJ, [id number], Dosing Weight 100.909, kg, Start date: 02/24/17 10:00:00 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, Duration: 30 day, Stop date: 03/25/17 10:00:00 CSTNotes: (Same as: Diflucan) No Longer Active 02/24/2017 [facility] pantoprazole 40 mg, Route: IVP, Drug form: INJ, Daily, Dosing Weight 100.909, kg, Start date: 02/24/17 9:00:00 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, Duration: 30 day, Stop date: 03/25/17 9:00:00 CSTNotes: For IV push reconstitute with 10 ml 0.9% sodium chloride and push over 2 minutes. (Same as: Protonix) No Longer Active 02/24/2017 [facility] Miralax 17 gm, 1 pkt, Route: PO, Drug form: PWDR, BID, Dosing Weight 100.909, kg, Start date: 02/24/17 9:00:00 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, Duration: 30 day, Stop date: 03/25/17 17:00:00 CSTNotes: Dissolve in 8 oz of water or juice. (Same as: Miralax) No Longer Active 02/24/2017 [facility] Docusate Sodium 100 MG Oral Capsule [Colace] 100 mg, 1 cap, Route: PO, Drug form: CAP, BID, Dosing Weight 100.909, kg, Start date: 02/24/17 9:00:00 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, Duration: 30 day, Stop date: 03/25/17 17:00:00 CSTNotes: (Same as: Colace) (Do Not Crush) No Longer Active 02/24/2017 [facility] vancomycin 1,000 mg, Route: IVPB, Drug form: INJ, [id number], Dosing Weight 100.909, kg, Start date: 02/24/17 9:00:00 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, Duration: 30 day, Stop date: 03/25/17 9:00:00 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, ABX Indication: Surgical ProphylaxisNotes: TIME CRITICAL MEDICATION (Same As: Vancocin) Infusion rate 2001 mg: infuse over 2.5 hours For adult patients only: Round to nearest 250 mg per Medical Staff approval MEDICATION WASTE Product Size: 1000 mg Product Wasted: ___ mg No Longer Active 02/24/2017 [facility] Dexmedetomidine 400 microgram, 4 mL, Rate: Titrate, Start Dose: 0.2 microgram/kg/hr, Titration: 0.1 microgram/kg/hr every 30 min, Goal(s): RASS -1, Max Dose: 1.5 microgram/kg/hr, Route: IV, Dosing Weight 100.909 kg, Total Volume: 100, Start date: 02/24/17 8:42:00 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... No Longer Active 02/24/2017 [facility] Benadryl 25 mg, 0.5 mL, Route: IVP, Drug form: INJ, ONCE, Dosing Weight 100.909, kg, PRN Itching, Start date: 02/24/17 8:42:00 CSTNotes: (Same as: Benadryl) Inactive 02/24/2017 [facility] Vasopressin (SENIOR CARE) 40 unit, 2 mL, Rate: Titrate, Start Dose: 0.04 unit/min, Titration: start at .04, Goal(s): MAP of at least 60, Route: IV, Dosing Weight 100.909 kg, Total Volume: 100, Start date: 02/24/17 8:15:00 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, Duration: 30 day, Stop date: 03/26/17 8:14:00 CSTNotes: (Same As: Pitressin, Vasostrict) No Longer Active 02/24/2017 [facility] Cefazolin 2 gm, Route: IVPB, Drug form: INJ, Q8H, Dosing Weight 100.909, kg, Start date: 02/24/17 0:00:00 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, Duration: 3 doses or times, Stop date: 02/24/17 16:00:00 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, ABX Indication: Surgical Prophylaxis No Longer Active 02/24/2017 [facility] ocular lubricant 1 appl, Route: BOTH EYES, Q6H, Drug form: OINT, Start date: 02/24/17 0:00:00 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, Duration: 30 day, Stop date: 03/25/17 18:00:00 CSTNotes: (Same as: Lacri-Lube, Duratears Naturale, Artificial Tears, and Tears Again ) No Longer Active 02/24/2017 [facility] sodium bicarbonate 8.4% 50 mEq, 50 ml, Route: IVP, Drug Form: INJ, Dosing Weight 100.909, kg, ONCE, Start date: 02/23/17 23:29:00 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, Stop date: 02/23/17 23:29:00 CSTNotes: (sodium bicarb 8.4% (1 mEq/ml) 50 ml VL) Inactive 02/24/2017 [facility] ceFAZolin (SCIP) 2 gm, 20 mL, Route: IVPB, Drug form: SOLN, Q8Hnow, Dosing Weight 100.909, kg, Start date: 02/23/17 23:00:00 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, Duration: 3 doses or times, Stop date: 02/24/17 15:00:00 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, ABX Indication: Surgical ProphylaxisNotes: (Same as Ancef) No Longer Active 02/24/2017 [facility] albumin human 25% intravenous solution 25 gm, 100 mL, Route: IV, Drug form: INJ, ONCE, Dosing Weight 100.909, kg, Start date: 02/23/17 21:08:00 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, Stop date: 02/23/17 21:08:00 CSTNotes: Lot #: Mfg: (Same as: Plasbumin-25) "blood product derivative" WASTE: F/P - Red; E -Red MEDICATION WASTE Product Size: 25 gm Product Wasted: _0_ gm Inactive 02/24/2017 [facility] Vancomycin 1,500 mg, Route: IVPB, Drug form: INJ, Q12H, Dosing Weight 100.909, kg, Time Critical Medication, Start date: 02/23/17 21:00:00 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, Duration: 2 doses or times, Stop date: 02/24/17 9:00:00 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, ABX I ndication: Surgical Prophylaxis Inactive 02/24/2017 [facility] chlorhexidine gluconate 1.2 MG/ML Mouthwash 15 mL, Route: Swab Mouth, Q12H, Drug form: LIQ, Start date: 02/23/17 21:00:00 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, Duration: 30 day, Stop date: 03/25/17 9:00:00 CSTNotes: (Same As: Peridex) No Longer Active 02/24/2017 [facility] albumin human 25% intravenous solution 25 gm, Route: IV, ONCE, Dosing Weight 100.909, kg, Start date: 02/23/17 20:27:00 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, Stop date: 02/23/17 20:27:00 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 Inactive 02/24/2017 [facility] Cefazolin 2 gm, 20 mL, Route: IVPB, Drug form: SOLN, Q8Hnow, Dosing Weight 100.909, kg, Start date: 02/23/17 20:00:00 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, Duration: 3 doses or times, Stop date: 02/24/17 12:00:00 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, ABX Indication: Surgical ProphylaxisNotes: (Same as Ancef) Inactive 02/24/2017 [facility] sodium phosphate 30 mmol, Route: IVPB, ONCE, Dosing Weight 100.909, kg, Priority: STAT, Start date: 02/23/17 19:17:00 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, Stop date: 02/23/17 19:17:00 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 Inactive 02/24/2017 [facility] potassium phosphate 30 mmol, 10 mL, Route: IVPB, ONCE, Dosing Weight 100.909, kg, Start date: 02/23/17 19:08:00 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, Stop date: 02/23/17 19:08:00 CSTNotes: (Same as: K Phosphate.) 1 mMol phoshate has 1.47 mEq potassium Infuse over 4 hours Inactive 02/24/2017 [facility] Sodium Chloride 0.9% (titrate) 250 mL 250 mL, Rate: call center trainer for use with blood product administration, Dosing Weight 100.909, kg, Route: IV, Total Volume: 250, Start Date: 02/23/17 19:04:00 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, Duration: 30 day, Stop date: 03/25/17 19:03:00 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, Replace Every: 24 hr No Longer Active 02/24/2017 [facility] Vancomycin 1,000 mg, Route: IVPB, Drug form: INJ, [id number], Dosing Weight 100.909, kg, Start date: 02/23/17 19:00:00 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, Duration: 30 day, Stop date: 03/24/17 19:00:00 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, ABX Indication: Surgical ProphylaxisNotes: TIME CRITICAL MEDICATION (Same As: Vancocin) Infusion rate 2001 mg: infuse over 2.5 hours For adult patients only: Round to nearest 250 mg per Medical Staff approval MEDICATION WASTE Product Size: 1000 mg Product Wasted: ___ mg Inactive 02/24/2017 [facility] Norepinephrine 8 mg, 8 mL, Rate: Titrate for MAP of 60, Start Dose: 5 microgram/min, Titration: 2 microgram/min every 2-5 minutes, Goal(s): MAP >=65 mmHg, Max Dose: 70 microgram/min, Route: IV, Dosing Weight 100.909 kg, Total Volume: 250, Start date: 02/23/17 18:40...Notes: Not for direct administration - DILUTE. Protect from light. (Same as:Levophed). Administer by either central venous catheter or peripherally-inserted central catheter (PICC) line. No Longer Active 02/24/2017 [facility] Epinephrine 8 mg, 8 mL, Rate: Titrate for MAP of 60, Start Dose: 2 microgram/min, Titration: For MAP of 60, Goal(s): MAP of 60, Route: IV, Dosing Weight 100.909 kg, Total Volume: 250, Start date: 02/23/17 18:40:00 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, Duration: 30 day, Stop date: 03/25/17 18:39:... No Longer Active 02/24/2017 [facility] chlorhexidine gluconate 1.2 MG/ML Mouthwash 15 mL, Route: Swab Mouth, PRN, Drug form: LIQ, PRN Other -See Comment, Start date: 02/23/17 18:27:00 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, Duration: 30 day, Stop date: 03/25/17 18:26:00 CSTNotes: (Same As: Peridex) No Longer Active 02/24/2017 [facility] Fentanyl 1,000 microgram, 20 mL, Rate: Titrate, Start Dose: 50 microgram/hr, Titration: 25 microgram/hour every 15 minutes, Goal(s): RASS - 2, Max Dose: 300 microgram/hr, Route: IV, Dosing Weight 100.909 kg, Total Volume: 20, Start date: 02/23/17 18:23:00 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,... No Longer Active 02/24/2017 [facility] Amicar 5 gm, 20 mL, Route: IVPB, Drug form: INJ, ONCE, Dosing Weight 100.909, kg, Start date: 02/23/17 18:21:00 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, Stop date: 02/23/17 18:21:00 CSTNotes: (Same as: Amicar) Inactive 02/24/2017 [facility] Fentanyl 600 microgram, 30 mL, Route: IV, TELEVISION TECHNICIAN Dose: 10 mcg, TELEVISION TECHNICIAN Lockout: 10 minutes, Continuous Basal Rate: 0 mg, 4 Hour Limit (In MCG): 240, Drug Form: INJ, Continuous, Start date: 02/23/17 17:44:00 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, Durati on: 1 day, Stop date: 02/24/17 17:43:00 CSTNotes: Concentration is 20 micrograms/ml No Longer Active 02/23/2017 [facility] Naloxone 0.04 mg, 0.1 mL, Route: IVP, Drug form: INJ, Q2MIN, Dosing Weight 100.909, kg, PRN Narcotic Reversal, Start date: 02/23/17 17:44:00 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, Duration: 30 day, Stop date: 03/25/17 17:43:00 CSTNotes: Same as Narcan No Longer Active 02/23/2017 [facility] Dextrose 50% Syringe 12.5 gm, 25 mL, Route: IVP, Drug Form: INJ, Dosing Weight 100.909, kg, PRN, PRN Blood Glucose Results, Start date: 02/23/17 17:44:00 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, Duration: 30 day, Stop date: 03/25/17 17:43:00 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 No Longer Active 02/23/2017 [facility] Insulin regular 100 unit + 99 mL, Rate: Start Insulin Drip Per ICU Protocol, Dosing Weight 100.909, kg, Route: IVPB, Total Volume: 100, Start Date: 02/23/17 17:44:00 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, Duration: 30 day, Stop date: 03/25/17 17:43:00 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, Replace Every: 24 hrNotes: Final Concentration 1unit/1ml WASTE: F/P - Black; E - Municipal Trash Bin No Longer Active 02/23/2017 [facility] Zofran 4 mg, 2 mL, Route: IV, Drug form: INJ, Q6H, Dosing Weight 100.909, kg, PRN Nausea, Start date: 02/23/17 17:44:00 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, Duration: 30 day, Stop date: 03/25/17 17:43:00 CSTNotes: (Same as: Chavo) MEDICATION WASTE Product Size: 4 mg Product Wasted: _0_ mg No Longer Active 02/23/2017 [facility] sennosides, SENIOR CARE 8.6 MG Oral Tablet 8.6 mg, 1 tab, Route: PO, Drug Form: TAB, Dosing Weight 100.909, kg, BID, PRN Constipation, Start date: 02/23/17 17:44:00 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, Duration: 30 day, Stop date: 03/25/17 17:43:00 CSTNotes: (Same as: [place]) No Longer Active 02/23/2017 [facility] Cardene 40 mg in NS 200 mL (Titrate.) IV 40 mg 40 mg, 200 mL, Rate: Titrate, Start Dose: 5 mg/hr, Titration: increase or decrease by 5 but no more than 15, Goal(s): MAP 70, Route: IV, Dosing Weight 100.909 kg, Total Volume: 200 mL, Start date: 02/23/17 17:44:00 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, Duration: 30 day, Stop date: ...Notes: Same as: Cardene Concentration: (0.2 mg /1 ml ) No Longer Active 02/23/2017 [facility] Acetaminophen 325 MG / Hydrocodone Bitartrate 10 MG Oral Tablet 2 tab, Route: PO, Drug Form: TAB, Dosing Weight 100.909, kg, Q4H, PRN Pain Score 4-6, Start date: 02/23/17 17:44:00 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, Duration: 4 day, Stop date: 02/27/17 17:43:00 CSTNotes: Do not exceed 4gm/day of acetaminophen. (Same as: [place] 325/10) No Longer Active 02/23/2017 [facility] Acetaminophen 650 mg, 2 tab, Route: PO, Drug form: TAB, Q4H, Dosing Weight 100.909, kg, PRN Pain 1-3/Temp > 100.4 F, Start date: 02/23/17 17:44:00 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, Duration: 30 day, Stop date: 03/25/17 17:43:00 CSTNotes: Do not exceed 4 gm/day. (Same as: Tylenol) No Longer Active 02/23/2017 [facility] hydrocortisone (ANES) Route: IV, Drug form: INJ, ONCE, Stop date: 02/23/17 16:30:00 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 Inactive 02/23/2017 [facility] Stimate (ANES) 4 microgram Route: IV, Drug Form: INJ, Start date: 02/23/17 16:13:00 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, Stop date: 02/23/17 17:13:00 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 Inactive 02/23/2017 [facility] methylene blue (ANES) 10 mg Route: IV, Drug form: INJ, Start date: 02/23/17 14:42:00 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, Stop date: 02/23/17 15:42:00 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 Inactive 02/23/2017 [facility] protamine (ANES) 10 mg Route: IV, Drug form: INJ, Start date: 02/23/17 14:42:00 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, Stop date: 02/23/17 15:42:00 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 Inactive 02/23/2017 [facility] vasopressin (ANES) Route: IV, Drug form: INJ, ONCE, Stop date: 02/23/17 14:29:00 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 Inactive 02/23/2017 [facility] calcium gluconate (ANES) Route: IV, Drug form: INJ, ONCE, Stop date: 02/23/17 14:29:00 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 Inactive 02/23/2017 [facility] norepinephrine (ANES) 32 microgram Route: IV, Drug form: INJ, Start date: 02/23/17 14:25:00 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, Stop date: 02/23/17 15:25:00 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 Inactive 02/23/2017 [facility] EPINEPHrine (ANES) Route: IV, Drug form: INJ, ONCE, Stop date: 02/23/17 14:24:00 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 Inactive 02/23/2017 [facility] magnesium sulfate (ANES) Route: IV, Drug form: INJ, ONCE, Stop date: 02/23/17 13:54:00 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 Inactive 02/23/2017 [facility] Sodium Chloride 0.9% IV (ANES) 500 mL Route: IV, Total Volume: 500, Start date: 02/23/17 13:28:00 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, Stop date: 02/23/17 14:28:00 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 Inactive 02/23/2017 [facility] Sodium Chloride 0.9% IV (ANES) 246 mL + EPINEPHrine (ANES) 4000 microgram Route: IV, Drug form: INJ, Start date: 02/23/17 13:26:00 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, Stop date: 02/23/17 14:26:00 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 Inactive 02/23/2017 [facility] Insulin regular (ANES) Route: IV, Drug form: INJ, ONCE, Stop date: 02/23/17 12:04:00 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 Inactive 02/23/2017 [facility] niCARdipine (ANES) Route: IV, Drug form: INJ, ONCE, Stop date: 02/23/17 10:39:00 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 Inactive 02/23/2017 [facility] heparin (ANES) Route: IV, Drug form: INJ, ONCE, Stop date: 02/23/17 10:24:00 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 Inactive 02/23/2017 [facility] norepinephrine (ANES) Route: IV, Drug form: INJ, ONCE, Stop date: 02/23/17 9:34:00 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 Inactive 02/23/2017 [facility] rocuronium (ANES) Route: IV, Drug form: INJ, ONCE, Stop date: 02/23/17 9:09:00 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 Inactive 02/23/2017 [facility] propofol (ANES) Route: IV, Drug form: INJ, ONCE, Stop date: 02/23/17 9:09:00 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 Inactive 02/23/2017 [facility] lidocaine (ANES) Route: IV, Drug form: INJ, ONCE, Stop date: 02/23/17 9:09:00 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 Inactive 02/23/2017 [facility] ceFAZolin (ANES) Route: IV, Drug form: INJ, ONCE, Stop date: 02/23/17 8:58:00 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 Inactive 02/23/2017 [facility] metoprolol (ANES) Route: IV, Drug form: INJ, ONCE, Stop date: 02/23/17 8:53:00 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 Inactive 02/23/2017 [facility] fentaNYL (ANES) Route: IV, Drug form: INJ, ONCE, Stop date: 02/23/17 8:53:00 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 Inactive 02/23/2017 [facility] midazolam (ANES) Route: IV, Drug form: SOLN, ONCE, Stop date: 02/23/17 8:33:00 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 Inactive 02/23/2017 [facility] vancomycin (ANES) 1000 mg Route: IV, Drug form: INJ, Start date: 02/23/17 8:30:00 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, Stop date: 02/23/17 9:30:00 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 Inactive 02/23/2017 [facility] tranexamic acid (ANES) 100 mg Route: IV, Drug form: INJ, Start date: 02/23/17 8:30:00 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, Stop date: 02/23/17 9:30:00 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 Inactive 02/23/2017 [facility] Sodium Chloride 0.9% IV (ANES) 1000 mL Route: IV, Total Volume: 1,000, Start date: 02/23/17 8:26:00 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, Stop date: 02/23/17 9:26:00 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 Inactive 02/23/2017 [facility] Isolyte S PH 7.4 (ANES) 1000 mL Route: IV, Total Volume: 1,000, Start date: 02/23/17 8:00:00 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, Stop date: 02/23/17 9:00:00 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 Inactive 02/23/2017 [facility] Saline Flush 0.9% 5 ml, Route: MISC, Drug Form: INJ, Dosing Weight 100.909, kg, Q12H, Start date: 02/22/17 21:00:00 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, Duration: 30 day, Stop date: 03/24/17 9:00:00 CSTNotes: (Same as: BD Posiflush) No Longer Active 02/23/2017 [facility] Cefazolin 2 gm, Route: IVPB, ONCALL, Dosing Weight 100.909, kg, Start date: 02/22/17 19:00:00 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, Duration: 1 doses or times, ABX Indication: Surgical ProphylaxisNotes: (Same As: [place] Kefzol) MEDICAT ION WASTE Product Size: 1000 mg Product Wasted: ___ mg No Longer Active 02/23/2017 [facility] Mupirocin 0.02 MG/MG Topical Ointment 1 appl, Route: NASAL, ONCALL, Drug form: OINT/A, Start date: 02/22/17 19:00:00 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, Duration: 30 day, Stop date: 03/24/17 18:59:00 CSTNotes: 1/2 UD to each nostril. (Same As: Bactroban) No Longer Active 02/23/2017 [facility] Sodium Chloride 0.9% (titrate) 250 mL 250 mL, Rate: To prime line and flush remaining blood products., Dosing Weight 100.909, kg, Route: IV, Total Volume: 250, Start Date: 02/22/17 18:08:00 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, Duration: 30 day, Stop date: 03/24/17 18:07:00 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, Replace Every: 24 hr No Longer Active 02/23/2017 [facility] Saline Flush 0.9% 5 ml, Route: MISC, Drug Form: INJ, Dosing Weight 100.909, kg, PRN, PRN Line Flush, Start date: 02/22/17 18:08:00 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, Duration: 30 day, Stop date: 03/24/17 18:07:00 CSTNotes: (Same as: BD Posiflush) No Longer Active 02/23/2017 [facility] Metoprolol 2 mg, 2 mL, Route: IVP, Drug form: INJ, ONCE, Dosing Weight 100.909, kg, Start date: 02/22/17 18:08:00 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, Stop date: 02/22/17 18:08:00 CSTNotes: (Same as: Lopressor) Push over 2 minutes No Longer Active 02/23/2017 [facility] Codeine Phosphate 10 MG / Guaifenesin 300 MG Oral Tablet 10 mL, Route: PO, Drug Form: LIQ, Dosing Weight 100.909, kg, Q6H, PRN Cough/Congestion, Start date: 02/22/17 13:31:00 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, Duration: 30 day, Stop date: 03/24/17 13:30:00 CSTNotes: (Same As: Robitussin AC) No Longer Active 02/22/2017 [facility] Acetaminophen 325 MG / Hydrocodone Bitartrate 5 MG Oral Tablet [[place] 5/325] 1 tab, Route: PO, Drug Form: TAB, Dosing Weight 100.909, kg, Q6H, Start date: 02/21/17 18:00:00 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, Duration: 30 day, Stop date: 03/23/17 12:00:00 CSTNotes: (Same as: [place] 325/5) Do not exceed 4gm/day of acetaminophen. No Longer Active 02/22/2017 [facility] Acetaminophen 325 MG / Hydrocodone Bitartrate 5 MG Oral Tablet [[place] 5/325] 1 tab, Route: PO, Drug Form: TAB, Dosing Weight 100.909, kg, Q4H, PRN Pain Score 1-3, Start date: 02/21/17 13:33:00 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, Duration: 30 day, Stop date: 03/23/17 13:32:00 CSTNotes: (Same as: [place] 325/5) Do not exceed 4gm/day of acetaminophen. No Longer Active 02/21/2017 [facility] Diphenhydramine 25 mg, 0.5 mL, Route: IVP, Drug form: INJ, ONCE, Dosing Weight 100.909, kg, PRN Itching, Start date: 02/21/17 11:41:00 CSTNotes: (Same as: Benadryl) Inactive 02/21/2017 [facility] atorvastatin 80 mg, 1 tab, Route: PO, Drug form: TAB, Bedtime, Dosing Weight 100.909, kg, Start date: 02/20/17 21:00:00 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, Duration: 30 day, Stop date: 03/21/17 21:00:00 CSTNotes: Same as Lipitor No Longer Active 02/21/2017 [facility] Furosemide 40 MG Oral Tablet 40 mg, 4 mL, Route: IVP, Drug form: INJ, BID, Dosing Weight 100.909, kg, Start date: 02/20/17 17:00:00 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, Duration: 30 day, Stop date: 03/22/17 9:00:00 CSTNotes: (Same as: Lasix) MEDICATION WASTE Product Size: 40 mg Product Wasted: 0___ mg No Longer Active 02/20/2017 [facility] Furosemide 40 MG Oral Tablet 40 mg, 1 tab, Route: PO, Drug form: TAB, BID Diuretic, Dosing Weight 100.909, kg, Start date: 02/20/17 14:00:00 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, Duration: 30 day, Stop date: 03/22/17 6:00:00 CSTNotes: (Same as: Lasix) May cause GI upset. Give with food or milk. Inactive 02/20/2017 [facility] Pneumovax 23 0.5 mL, Route: IM, Drug Form: INJ, Daily, Start date: 02/20/17 12:30:00 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, Duration: 1 doses or times, Stop date: 02/20/17 12:30:00 CSTNotes: (Same as: Pneumovax 23) Refrigerate Inactive 02/20/2017 [facility] insulin glargine 18 unit, 0.18 mL, Route: SUB-Q, Drug form: SOLN, Daily, Start date: 02/20/17 9:00:00 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, Duration: 30 day, Stop date: 03/21/17 9:00:00 CSTNotes: (Same as: Lantus) Do not hold insulin without contact ing prescriber WASTE: F/P - Black; E - Municipal Trash Bin "single patient use only" Inactive 02/20/2017 [facility] Saline Flush 0.9% 10 ml, Route: IVP, Drug Form: INJ, Dosing Weight 100.909, kg, Q12H, Start date: 02/20/17 9:00:00 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, Duration: 30 day, Stop date: 03/21/17 21:00:00 CSTNotes: (Same as: BD Posiflush) No Longer Active 02/20/2017 [facility] influenza virus vaccine, inactivated 0.5 mL, Route: IM, Drug Form: SUSP, Daily, Start date: 02/20/17 9:00:00 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, Duration: 1 doses or times, Stop date: 02/20/17 9:00:00 CSTNotes: (Same as: Fluzone Quadrivalent, Fluarix Quadrivalent) For 3 years of age and older (0.5 mL IM) Shake well before use Inactive 02/20/2017 [facility] pneumococcal capsular polysaccharide type 1 vaccine / pneumococcal capsular polysaccharide type 10A vaccine / pneumococcal capsular polysaccharide type 11A vaccine / pneumococcal capsular polysaccharide type 12F vaccine / pneumococcal capsular polysacchar 0.5 mL, Route: IM, Drug Form: INJ, Daily, Start date: 02/20/17 9:00:00 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, Duration: 1 doses or times, Stop date: 02/20/17 9:00:00 CSTNotes: (Same as: Pneumovax 23) Refrigerate Inactive 02/20/2017 [facility] sacubitril 24 MG / valsartan 26 MG Oral Tablet [Entresto] 1 tab, Route: PO, Drug Form: TAB, Dosing Weight 100.909, kg, Q12H, Start date: 02/20/17 9:00:00 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, Duration: 30 day, Stop date: 03/21/17 21:00:00 CSTNotes: (Same as: Entresto) Avoid in patients with history of angioedema due to STEPHEN inhibitor or ARB therapy. Do not use concomitantly or within 36 hours of STEPHEN inhibitors No Longer Active 02/20/2017 [facility] metoprolol tartrate 25 mg, 1 tab, Route: PO, Drug form: TAB, Q12H, Dosing Weight 100.909, kg, Start date: 02/20/17 9:00:00 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, Duration: 30 day, Stop date: 03/21/17 21:00:00 CSTNotes: (Same as: Lopressor) No Longer Active 02/20/2017 [facility] Insulin Glargine 100 UNT/ML Injectable Solution 18 unit, 0.18 mL, Route: SUB-Q, Drug form: SOLN, Daily, Dosing Weight 100.909, kg, Start date: 02/20/17 9:00:00 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, Duration: 30 day, Stop date: 03/21/17 9:00:00 CSTNotes: (Same as: Lantus) Do not hold insulin without contacting prescriber WASTE: F/P - Black; E - Municipal Trash Bin "single patient use only" No Longer Active 02/20/2017 [facility] Aspirin 81 MG Enteric Coated Tablet 81 mg, 1 tab, Route: PO, Drug form: ECTAB, Daily, Dosing Weight 100.909, kg, Start date: 02/20/17 9:00:00 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, Duration: 30 day, Stop date: 03/21/17 9:00:00 CSTNotes: Do not crush or chew. (Same As: Ecotrin) No Longer Active 02/20/2017 [facility] Insulin Lispro 5 unit, 0.05 mL, Route: SUB-Q, Drug form: SOLN, TID-Before Meals, Dosing Weight 100.909, kg, Start date: 02/20/17 7:30:00 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, Duration: 30 day, Stop date: 03/21/17 16:30:00 CSTNotes: (Same as: Humalog ) Roll in palms of hands gently; Do not shake `vigorously. "Single Patient Use Only " WASTE: F/P - Black; E - Municipal Trash Bin Stable for 28 days at room temperature. Expires in days from Date No Longer Active 02/20/2017 [facility] heparin additive 25,000 unit [12 unit/kg/hr] + Premix Diluent Sodium Chloride 0.45% 500 mL 500 mL, Rate: 24.22 ml/hr, Infuse over: 20.6 hr, Route: IV, Dosing Weight 100.909 kg, Total Volume: 500 mL, Start date: 02/20/17 6:28:00 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, Stop date: 03/22/17 6:27:00 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, 2.33, [id number]: Total Concen tration=50 unit/ ml Total iywpnp=759 ml Send Med Request 2 hours prior to next bag No Longer Active 02/20/2017 [facility] Heparin 30 unit/kg Bolus (Heparin Dosing Weight) Route: IVP, PRN, 3,000 unit, 3 mL, Drug form: INJ, PRN, Heparin Protocol, Start date: 02/20/17 6:28:00 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 Stop date: 03/22/17 6:27:00 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 No Longer Active 02/20/2017 [facility] Heparin 60 unit/kg Bolus (Heparin Dosing Weight) Route: IVP, PRN, 6,100 unit, 6.1 mL, Drug form: INJ, PRN, Heparin Protocol, Start date: 02/20/17 6:28:00 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 Stop date: 03/22/17 6:27:00 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 No Longer Active 02/20/2017 [facility] Insulin Lispro 4 unit, 0.04 mL, Route: SUB-Q, Drug form: SOLN, TID-Before Meals, Dosing Weight 100.909, kg, PRN Blood Glucose Results, Start date: 02/20/17 6:25:00 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, Duration: 30 day, Stop date: 03/22/17 6:24:00 CSTNotes: (Same as: Humalog ) Roll in palms of hands gently; Do not shake `vigorously. "Single Patient Use Only " WASTE: F/P - Black; E - Municipal Trash Bin Stable for 28 days at room temperature. Expires in days from Date No Longer Active 02/20/2017 [facility] Dextrose 50% Syringe 12.5 gm, 25 mL, Route: IVP, Drug Form: INJ, Dosing Weight 100.909, kg, PRN, PRN Blood Glucose Results, Start date: 02/20/17 6:25:00 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, Duration: 30 day, Stop date: 03/22/17 6:24:00 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 No Longer Active 02/20/2017 [facility] Glucagon 1 mg, Route: IM, Drug form: PDR/INJ, PRN, Dosing Weight 100.909, kg, PRN Blood Glucose Results, Start date: 02/20/17 6:25:00 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, Duration: 30 day, Stop date: 03/22/17 6:24:00 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 No Longer Active 02/20/2017 [facility] Calcium Gluconate 3 gm, 30 mL, Route: IVPB, PRN, Dosing Weight 100.909, kg, PRN Abnormal Lab Result, For NON-ICU Patients Only., Start date: 02/20/17 6:19:00 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, Duration: 30 day, Stop date: 03/22/17 6:18:00 CSTNotes: WASTE: F/P - Sink; E - Municipal Trash Bin No Longer Active 02/20/2017 [facility] Magnesium Sulfate 1 gm, 100 mL, Route: IVPB, Drug form: INJ, PRN, Dosing Weight 100.909, kg, PRN Abnormal Lab Result, For NON-ICU Patients Only., Start date: 02/20/17 6:19:00 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, Duration: 30 day, Stop date: 03/22/17 6:18:00 CSTNotes: WASTE: F/P - Sink; E - Municipal Trash Bin No Longer Active 02/20/2017 [facility] Magnesium Oxide 800 mg, 2 tab, Route: PO, Drug form: TAB, PRN, Dosing Weight 100.909, kg, PRN Abnormal Lab Result, For NON-ICU Patients Only., Start date: 02/20/17 6:19:00 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, Duration: 30 day, Stop date: 03/22/17 6:18:00 CSTNotes: (Same as: Mag-Ox 400) Magnesium oxide [id number] elemental magnesium Dose=____mg magnesium oxide (___mg elemental magnesium) No Longer Active 02/20/2017 [facility] Potassium Chloride 20 mEq, 1 tab, Route: PO, Drug form: ERTAB, PRN, Dosing Weight 100.909, kg, PRN Abnormal Lab Result, For NON-ICU Patients Only, Start date: 02/20/17 6:19:00 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, Duration: 30 day, Stop date: 03/22/17 6:18:00 CSTNotes: (Same as: K-Dur 20) "Do Not Crush" With food and full glass of water No Longer Active 02/20/2017 [facility] sodium phosphate 30 mmol, 10 mL, Route: IVPB, PRN, Dosing Weight 100.909, kg, PRN Abnormal Lab Result, For NON-ICU Patients Only., Start date: 02/20/17 6:19:00 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, Duration: 30 day, Stop date: 03/22/17 6:18:00 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 No Longer Active 02/20/2017 [facility] potassium phosphate 30 mmol, 10 mL, Route: IVPB, PRN, Dosing Weight 100.909, kg, PRN Abnormal Lab Result, For NON-ICU Patients Only., Start date: 02/20/17 6:19:00 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, Duration: 30 day, Stop date: 03/22/17 6:18:00 CSTNo riley: (Same as: K Phosphate.) 1 mMol phoshate has 1.47 mEq potassium Infuse over 4 hours No Longer Active 02/20/2017 [facility] potassium phosphate-sodium phosphate 250 mg-280 mg-160 mg oral powder for reconstitution 2 pkt, Route: PO, Drug Form: PDR/REC, Dosing Weight 100.909, kg, PRN, PRN Abnormal Lab Result, For NON-ICU Patients Only, Start date: 02/20/17 6:19:00 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, Duration: 30 day, Stop date: 03/22/17 6:18:00 CSTNotes: (Same as: Phos-NaK) Each 1.5 gm pkt has 250mg phosphorous. Mix w/2.5oz water and stir. No Longer Active 02/20/2017 [facility] Saline Flush 0.9% 10 ml, Route: IVP, Drug Form: INJ, Dosing Weight 100.909, kg, PRN, PRN Line Flush, Start date: 02/20/17 6:19:00 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, Duration: 30 day, Stop date: 03/22/17 6:18:00 CSTNotes: (Same as: BD Posiflush) No Longer Active 02/20/2017 [facility] Ondansetron 4 mg, 2 mL, Route: IVP, Drug form: INJ, Q6H, Dosing Weight 100.909, kg, PRN Nausea, Start date: 02/20/17 6:13:00 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, Duration: 30 day, Stop date: 03/22/17 6:12:00 CSTNotes: (Same as: Zofran) MEDICATION WASTE Product Size: 4 mg Product Wasted: ___ mg No Longer Active 02/20/2017 [facility] Morphine 4 mg, 1 mL, Route: IV, Drug form: SOLN, Q4H, Dosing Weight 100.909, kg, PRN Pain Score 6-10, Start date: 02/20/17 6:13:00 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, Duration: 30 day, Stop date: 03/22/17 6:12:00 CSTNotes: (Same as:MORPhine Sulfate) No Longer Active 02/20/2017 [facility] Acetaminophen 325 MG / Hydrocodone Bitartrate 7.5 MG Oral Tablet [[place] 7.5/325] 1 tab, Route: PO, Drug Form: TAB, Dosing Weight 100.909, kg, Q4H, PRN Pain Score 4-6, Start date: 02/20/17 6:13:00 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, Duration: 30 day, Stop date: 03/22/17 6:12:00 CSTNotes: Same as [place] 325-7.5mg Do not exceed 4gm/day of acetaminophen. No Longer Active 02/20/2017 [facility] heparin 1000 units/mL injectable solution 2,900 unit=2.9 mL, IVP, PRN, PRN Heparin Protocol, 0 Refill(s) No Longer Active 02/20/2017 [facility] Glucagon 1 mg, IM, PRN, PRN Blood Glucose Results, 0 Refill(s) No Longer Active 02/20/2017 [facility] Furosemide 40 MG Oral Tablet 40 mg=1 tab, PO, BID Diuretic, 0 Refill(s) No Longer Active 02/20/2017 [facility] sacubitril 24 MG / valsartan 26 MG Oral Tablet [Entresto] 1 tab, PO, Q12H, 0 Refill(s) No Longer Active 02/20/2017 [facility] ondansetron 2 mg/mL injectable solution 4 mg=2 mL, IVP, Q6H, PRN Nausea, 0 Refill(s) No Longer Active 02/20/2017 [facility] Morphine 4 mg=1 mL, IV, Q4H, PRN Pain Score 6-10, 0 Refill(s) No Longer Active 02/20/2017 [facility] Alprazolam 0.25 MG Oral Tablet [Xanax] 0.25 mg=1 tab, PO, Q12H, PRN Anxiety, 0 Refill(s) No Longer Active 02/20/2017 [facility] atorvastatin 40 mg oral tablet 40 mg=1 tab, PO, Bedtime, 0 Refill(s) No Longer Active 02/20/2017 [facility] Aspirin 81 MG Enteric Coated Tablet 81 mg=1 tab, PO, Daily, 0 Refill(s) Active 02/20/2017 [facility] metoprolol tartrate 25 mg oral tablet 12.5 mg=0.5 tab, PO, Q12H, 0 Refill(s) No Longer Active 02/20/2017 [facility] insulin lispro 100 units/mL subcutaneous injection 10 unit, SUB-Q, TID-Before Meals, PRN Blood Glucose Results, 0 Refill(s) No Longer Active 02/20/2017 [facility] Acetaminophen 325 MG / Hydrocodone Bitartrate 7.5 MG Oral Tablet [[place] 7.5/325] 1 tab, PO, Q4H, PRN Pain Score 4-6, 0 Refill(s) No Longer Active 02/20/2017 [facility] Insulin Glargine 100 UNT/ML Injectable Solution 18 unit, SUB-Q, Daily, 0 Refill(s) No Longer Active 02/20/2017 [facility] aspirin 81 mg tablet, enteric coated 81 mg=1 tab, PO, Daily, 0 Refill(s) On Hold 02/20/2017 [facility] Acetaminophen 325 MG / Hydrocodone Bitartrate 7.5 MG Oral Tablet [[place] 7.5/325] 1 tab, Route: PO, Drug Form: TAB, Dosing Weight 102.5, kg, Q4H, PRN Pain Score 4-6, Start date: 02/19/17 18:07:00 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, Duration: 30 day, Stop date: 03/21/17 18:06:00 CSTNotes: Same as [place] 325-7.5mg Do not exceed 4gm/day of acetaminophen. No Longer Active 02/20/2017 [facility] Potassium Chloride 40 mEq, 2 tab, Route: PO, Drug form: ERTAB, ONCE, Dosing Weight 102.5, kg, Start date: 02/19/17 16:25:00 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, Stop date: 02/19/17 16:25:00 CSTNotes: (Same as: K-Dur 20) "Do Not Crush" With food and full glass of water Inactive 02/19/2017 [facility] insulin glargine 8 unit, 0.08 mL, Route: SUB-Q, Drug form: SOLN, ONCE, Priority: STAT, Start date: 02/19/17 10:15:00 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, Stop date: 02/19/17 10:15:00 CSTNotes: (Same as: Lantus) Do not hold insulin without contacting prescriber WASTE: F/P - Black; E - Municipal Trash Bin "single patient use only" Inactive 02/19/2017 [facility] Magnesium Sulfate 2 gm, 50 mL, Route: IVPB, Drug form: INJ, ONCE, Dosing Weight 110.909, kg, Start date: 02/19/17 7:09:00 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, Stop date: 02/19/17 7:09:00 CSTNotes: WASTE: F/P - Sink; E - Municipal Trash Bin Inactive 02/19/2017 [facility] Morphine 4 mg, 1 mL, Route: IV, Drug form: SOLN, Q4H, Dosing Weight 110.909, kg, PRN Pain Score 6-10, Start date: 02/18/17 13:42:00 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, Duration: 30 day, Stop date: 03/20/17 13:41:00 CSTNotes: (Same as:MORPhine Sulfate) No Longer Active 02/18/2017 [facility] Levemir 10 unit, Route: SUB-Q, Daily, Dosing Weight 110.909, kg, Start date: 02/18/17 10:30:00 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, Duration: 30 day, Stop date: 03/20/17 9:00:00 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 Inactive 02/18/2017 [facility] insulin glargine 10 unit, 0.1 mL, Route: SUB-Q, Drug form: SOLN, Daily, Start date: 02/18/17 10:21:00 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, Duration: 30 day, Stop date: 03/20/17 9:00:00 CSTNotes: (Same as: Lantus) Do not hold insulin without contact ing prescriber WASTE: F/P - Black; E - ContraFect Trash Bin "single patient use only" No Longer Active 02/18/2017 [facility] sacubitril 24 MG / valsartan 26 MG Oral Tablet [Entresto] 1 tab, Route: PO, Drug Form: TAB, Dosing Weight 110.909, kg, Q12H, Start date: 02/18/17 9:15:00 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, Duration: 30 day, Stop date: 03/20/17 9:00:00 CSTNotes: (Same as: Entresto) Avoid in patients with history of angioedema due to SETPHEN inhibitor or ARB therapy. Do not use concomitantly or within 36 hours of STEPHEN inhibitors No Longer Active 02/18/2017 [facility] Potassium Chloride 1.33 MEQ/ML Oral Solution 40 mEq, 30 mL, Route: PO, Drug form: LIQ, ONCE, Dosing Weight 110.909, kg, Start date: 02/18/17 9:03:00 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, Stop date: 02/18/17 9:03:00 CSTNotes: (Same as: Potassium Chloride) Inactive 02/18/2017 [facility] Alprazolam 0.25 MG Oral Tablet [Xanax] 0.25 mg, 1 tab, Route: PO, Drug form: TAB, Q12H, Dosing Weight 110.909, kg, PRN Anxiety, Start date: 02/17/17 17:24:00 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, Duration: 30 day, Stop date: 03/19/17 17:23:00 CSTNotes: With food or milk (Same as: Xanax) No Longer Active 02/17/2017 [facility] Lasix 40 mg, 1 tab, Route: PO, Drug form: TAB, BID Diuretic, Dosing Weight 110.909, kg, Start date: 02/16/17 20:00:00 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, Duration: 30 day, Stop date: 03/18/17 16:00:00 CSTNotes: (Same as: Lasix) May cause GI upset. Give with food or milk. No Longer Active 02/17/2017 [facility] Heparin 30 unit/kg Bolus (Heparin Dosing Weight) Route: IVP, PRN, 2,900 unit, 2.9 mL, Drug form: INJ, PRN, Heparin Protocol, Start date: 02/16/17 19:13:00 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 Stop date: 03/18/17 19:12:00 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, 30 day No Longer Active 02/17/2017 [facility] Heparin 60 unit/kg Bolus (Heparin Dosing Weight) Route: IVP, PRN, 5,800 unit, 5.8 mL, Drug form: INJ, PRN, Heparin Protocol, Start date: 02/16/17 19:13:00 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 Stop date: 03/18/17 19:12:00 UNDERWRITING ASSISTANT, 30 day No Longer Active 02/17/2017 [facility] Heparin - one time bolus for ACS 4,000 unit, 4 mL, Route: IVP, Drug form: INJ, ONCE, Dosing Weight 110.909, kg, Priority: STAT, Start date: 02/16/17 19:13:00 UNDERWRITING ASSISTANT, Stop date: 02/16/17 19:13:00 UNDERWRITING ASSISTANT Inactive 02/17/2017 [facility] heparin additive 25,000 unit [10.371 unit/kg/hr] + Premix Diluent Dextrose 5% 500 mL 500 mL, Rate: 20 ml/hr, Infuse over: 25 hr, Route: IV, Dosing Weight 96.44 kg, Total Volume: 500 mL, Start date: 02/16/17 19:13:00 UNDERWRITING ASSISTANT, Duration: 30 day, Stop date: 03/18/17 19:12:00 UNDERWRITING ASSISTANT, 2.28, m2 No Longer Active 02/17/2017 [facility] Ondansetron 4 mg, 2 mL, Route: IVP, Drug form: INJ, Q6H, Dosing Weight 110.909, kg, PRN Nausea, Start date: 02/16/17 14:20:00 UNDERWRITING ASSISTANT, Duration: 30 day, Stop date: 03/18/17 14:19:00 CSTNotes: (Same as: Zofran) MEDICATION WASTE Product Size: 4 mg Product Wasted: ___ mg No Longer Active 02/16/2017 [facility] Azithromycin 500 mg, Route: IVPB, [id number], Dosing Weight 97.727, kg, Start date: 02/16/17 13:00:00 UNDERWRITING ASSISTANT, Duration: 5 day, Stop date: 02/20/17 13:00:00 UNDERWRITING ASSISTANT, ABX Indication: PneumoniaNotes: (Same As: Zithromax IV) No Longer Active 02/16/2017 [facility] Rocephin 1 gm, Route: IVPB, [id number], Dosing Weight 97.727, kg, Start date: 02/16/17 13:00:00 UNDERWRITING ASSISTANT, Duration: 5 day, Stop date: 02/20/17 13:00:00 UNDERWRITING ASSISTANT, ABX Indication: PneumoniaNotes: (Same As: Rocephin). Use with 100 mL NS and infuse over 30 min MEDICATION WASTE Product Size: 1000 mg Product Wasted: ___ mg No Longer Active 02/16/2017 [facility] Aspirin 81 mg, 1 tab, Route: PO, Drug form: ECTAB, Daily, Dosing Weight 97.727, kg, Start date: 02/16/17 9:00:00 UNDERWRITING ASSISTANT, Duration: 30 day, Stop date: 03/17/17 9:00:00 CSTNotes: Do not crush or chew. (Same As: Ecotrin) No Longer Active 02/16/2017 [facility] metoprolol tartrate 12.5 mg, 0.5 tab, Route: PO, Drug form: TAB, Q12H, Dosing Weight 97.727, kg, Start date: 02/15/17 21:00:00 UNDERWRITING ASSISTANT, Duration: 30 day, Stop date: 03/17/17 9:00:00 CSTNotes: (Same as: Lopressor) No Longer Active 02/16/2017 [facility] Lipitor 40 mg, 1 tab, Route: PO, Drug form: TAB, Bedtime, Dosing Weight 97.727, kg, Start date: 02/15/17 21:00:00 UNDERWRITING ASSISTANT, Duration: 30 day, Stop date: 03/16/17 21:00:00 CSTNotes: (Same as: Lipitor) No Longer Active 02/16/2017 [facility] Morphine 4 mg, 1 mL, Route: IV, Drug form: SOLN, Q6H, Dosing Weight 97.727, kg, PRN Pain Score 6-10, Start date: 02/15/17 18:36:00 UNDERWRITING ASSISTANT, Duration: 30 day, Stop date: 03/17/17 18:35:00 CSTNotes: (Same as:MORPhine Sulfate) No Longer Active 02/16/2017 [facility] Sodium Chloride 0.9% (Bolus) IV 250 mL, 250 ml/hr, Infuse Over: 1 hr, Route: IV, 250, Drug form: INJ, ONCALL, Priority: Routine, Dosing Weight 97.727 kg, Start date: 02/15/17 18:00:00 UNDERWRITING ASSISTANT, Duration: 1 doses or times No Longer Active 02/16/2017 [facility] Sodium Chloride 0.9% IV 750 mL 750 mL, Rate: 75 ml/hr, Infuse over: 10 hr, Route: IV, Dosing Weight 97.727 kg, Total Volume: 750, Start date: 02/15/17 17:59:00 UNDERWRITING ASSISTANT, Duration: 24 hr, Stop date: 02/16/17 17:58:00 UNDERWRITING ASSISTANT, 2.29, m2 No Longer Active 02/15/2017 [facility] Insulin Lispro 8 unit, 0.08 mL, Route: SUB-Q, Drug form: SOLN, TID-Before Meals, Dosing Weight 97.727, kg, PRN Blood Glucose Results, Start date: 02/15/17 14:49:00 UNDERWRITING ASSISTANT, Duration: 30 day, Stop date: 03/17/17 14:48:0 0 CSTNotes: Roll in palms of hands gently; Do not shake `vigorously. (Same as: Humalog ) "Single Patient Use Only " WASTE: F/P - Black; E - Municipal Trash Bin Stable for 28 days at room temperature. Expires in days from Date No Longer Active 02/15/2017 [facility] Glucagon 1 mg, Route: IM, Drug form: PDR/INJ, PRN, Dosing Weight 97.727, kg, PRN Blood Glucose Results, Start date: 02/15/17 14:49:00 UNDERWRITING ASSISTANT, Duration: 30 day, Stop date: 03/17/17 14:48:00 UNDERWRITING ASSISTANT No Longer Active 02/15/2017 [facility] Dextrose 50% Syringe 25 gm, 50 mL, Route: IVP, Drug Form: INJ, Dosing Weight 97.727, kg, PRN, PRN Blood Glucose Results, Start date: 02/15/17 14:49:00 UNDERWRITING ASSISTANT, Duration: 30 day, Stop date: 03/17/17 14:48:00 UNDERWRITING ASSISTANT No Longer Active 02/15/2017 [facility] Ceftriaxone 1 gm, Route: IVPB, ONCE, Dosing Weight 97.727, kg, Priority: STAT, Start date: 02/15/17 11:43:00 UNDERWRITING ASSISTANT, Stop date: 02/15/17 11:43:00 UNDERWRITING ASSISTANT, ABX Indication: PneumoniaNotes: (Same As: Rocephin). Use with 100 mL NS and infuse over 30 min MEDICATION WASTE Product Size: 1000 mg Product Wasted: ___ mg Inactive 02/15/2017 [facility] Azithromycin 500 mg, Route: IVPB, Drug form: PDR/INJ, ONCE, Dosing Weight 97.727, kg, Priority: STAT, Start date: 02/15/17 11:43:00 UNDERWRITING ASSISTANT, Stop date: 02/15/17 11:43:00 UNDERWRITING ASSISTANT, ABX Indication: PneumoniaNotes: (Same As: Zithromax IV) Inactive 02/15/2017 [facility] Ondansetron 4 mg, Route: IVP, Drug form: INJ, ONCE, Dosing Weight 97.727, kg, Priority: STAT, Start date: 02/15/17 10:58:00 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, Stop date: 02/15/17 10:58:00 UNDERWRITING ASSISTANT Inactive 02/15/2017 [facility] Morphine 4 mg, Route: IVP, ONCE, Dosing Weight 97.727, kg, Priority: STAT, Start date: 02/15/17 10:58:00 UNDERWRITING ASSISTANT, Stop date: 02/15/17 10:58:00 UNDERWRITING ASSISTANT Inactive 02/15/2017 [facility] Aspirin 325 mg, Route: PO, Drug form: TAB, ONCE, Dosing Weight 97.727, kg, Priority: STAT, Start date: 02/15/17 9:50:00 UNDERWRITING ASSISTANT, Stop date: 02/15/17 9:50:00 UNDERWRITING ASSISTANT Inactive 02/15/2017 [facility] Allergies, Adverse Reactions, Alerts Substance Category Reaction Severity Reaction type Status Date Reported Comments Source Levaquin Assertion Drug allergy Active [facility] Immunizations Immunization Date Given Site Status Last Updated Comments Source pneumococcal 23-valent vaccine 02/20/2017 Right deltoid completed Susan [facility] [place] influenza virus vaccine, inactivated 02/20/2017 Left deltoid completed Susan [facility] [place],[facility] Results Order Name Results Value Reference Range Date Interpretation Comments Source CHEM PANEL Magnesium Lvl 1.4 1.8 - 2.4 10/17/2017 [facility] CHEM PANEL eGFR 57 10/17/2017 Result Comment: The eGFR is calculated using the CKD-EPI formula. In most young, healthy individuals the eGFR will be >90 mL/min/1.73m2. The eGFR declines with age. An eGFR of 60-89 may be normal in some populations, particularly the elderly, for whom the CKD-EPI formula has not been extensively validated. Use of the eGFR is not recommended in the following populations:

Individuals with unstable creatinine concentrations, including patients and those with serious co-morbid conditions.

Patients with extremes in muscle mass or diet.

The data above are obtained from the National Kidney Disease Education Program (NKDEP) which additionally recommends that when the eGFR is used in patients with extremes of body mass index for purposes of drug dosing, the eGFR should be multiplied by the estimated BMI. [facility] CHEM PANEL Globulin 3.6 2.7 - 4.2 10/17/2017 [facility] CHEM PANEL A/G Ratio 0.9 0.7 - 1.6 10/17/2017 [facility] CHEM PANEL ALT 36 0 - 65 10/17/2017 [facility] CHEM PANEL B/C Ratio 19 6 - 25 10/17/2017 [facility] CHEM PANEL Albumin Lvl 3.3 3.5 - 5.0 10/17/2017 [facility] CHEM PANEL Total Protein 6.9 6.4 - 8.4 10/17/2017 [facility] CHEM PANEL Alk Phos 60 39 - 136 10/17/2017 [facility] CHEM PANEL AST 30 0 - 37 10/17/2017 [facility] CHEM PANEL Bili Total 1.5 0.2 - 1.3 10/17/2017 [facility] CHEM PANEL Chloride Lvl 102 95 - 109 10/17/2017 [facility] CHEM PANEL Glucose Lvl 249 70 - 99 10/17/2017 [facility] CHEM PANEL CO2 25 24 - 32 10/17/2017 [facility] CHEM PANEL AGAP 12.7 10.0 - 20.0 10/17/2017 [facility] CHEM PANEL Calcium Lvl 8.7 8.5 - 10.5 10/17/2017 [facility] CHEM PANEL Potassium Lvl 3.7 3.5 - 5.1 10/17/2017 [facility] CHEM PANEL BUN 25 7 - 22 10/17/2017 [facility] CHEM PANEL Sodium Lvl 136 135 - 145 10/17/2017 [facility] CHEM PANEL Creatinine Lvl 1.32 0.50 - 1.40 10/17/2017 [facility] CHEM PANEL Phosphorus 1.9 2.5 - 4.5 10/17/2017 [facility] HEMATOLOGY MPV 8.5 7.4 - 10.4 10/17/2017 [facility] HEMATOLOGY Platelet 180 133 - 450 10/17/2017 [facility] HEMATOLOGY RDW 14.0 11.5 - 14.5 10/17/2017 [facility] HEMATOLOGY MCHC 34.7 32.0 - 36.0 10/17/2017 [facility] HEMATOLOGY MCH 37.9 27.0 - 31.0 10/17/2017 [facility] HEMATOLOGY Hgb 13.8 14.0 - 18.0 10/17/2017 [facility] HEMATOLOGY RBC 3.64 4.70 - 6.10 10/17/2017 [facility] HEMATOLOGY WBC 8.1 3.7 - 10.4 10/17/2017 [facility] HEMATOLOGY MCV 109.2 80.0 - 94.0 10/17/2017 [facility] HEMATOLOGY Hct 39.7 42.0 - 54.0 10/17/2017 [facility] HEMATOLOGY Lymphocytes # 2.1 1.0 - 5.5 10/17/2017 [facility] HEMATOLOGY Eosinophils # 0.2 0.0 - 0.5 10/17/2017 [facility] HEMATOLOGY Monocytes # 1.0 0.0 - 0.8 10/17/2017 [facility] HEMATOLOGY Monocytes 12.7 2.0 - 12.0 10/17/2017 [facility] HEMATOLOGY Lymphocytes 25.7 20.0 - 40.0 10/17/2017 [facility] HEMATOLOGY Eosinophils 2.5 0.0 - 4.0 10/17/2017 [facility] HEMATOLOGY Basophils # 0.1 0.0 - 0.2 10/17/2017 [facility] HEMATOLOGY Neutrophils # 4.7 1.5 - 8.1 10/17/2017 [facility] HEMATOLOGY Basophils 1.1 0.0 - 1.0 10/17/2017 [facility] HEMATOLOGY Segs 58.0 45.0 - 75.0 10/17/2017 [facility] DRUG SCREEN U Amph Scr Positive *ABN* (10/16/17 10:41 AM) Negative 10/16/2017 [facility] DRUG SCREEN U Usha Scr Negative *NA* (10/16/17 10:41 AM) Negative 10/16/2017 [facility] DRUG SCREEN U Cannab Scr Negative *NA* (10/16/17 10:41 AM) Negative 10/16/2017 [facility] DRUG SCREEN U Benzodiaz Scr Negative *NA* (10/16/17 10:41 AM) Negative 10/16/2017 [facility] DRUG SCREEN U Cocaine Scr Negative *NA* (10/16/17 10:41 AM) Negative 10/16/2017 [facility] DRUG SCREEN UDS Note See Note (10/16/17 10:41 AM) 10/16/2017 [facility] DRUG SCREEN U Opiate Scr Positive *ABN* (10/16/17 10:41 AM) Negative 10/16/2017 [facility] DRUG SCREEN U Phencyclidine Scr Negative *NA* (10/16/17 10:41 AM) Negative 10/16/2017 [facility] URINE AND STOOL UA WBC <1 0 - 5 10/16/2017 [facility] URINE AND STOOL UA RBC <1 0 - 2 10/16/2017 [facility] URINE AND STOOL UA Leuk Est Negative (10/16/17 10:41 AM) Negative 10/16/2017 [facility] URINE AND STOOL UA Blood Negative (10/16/17 10:41 AM) Negative 10/16/2017 [facility] URINE AND STOOL UA Nitrite Negative (10/16/17 10:41 AM) Negative 10/16/2017 [facility] URINE AND STOOL UA Ketones 40 mg/dL Negative mg/dL 10/16/2017 [facility] URINE AND STOOL UA Bili Negative *NA* (10/16/17 10:41 AM) Negative 10/16/2017 [facility] URINE AND STOOL UA Glucose 30 mg/dL Negative mg/dL 10/16/2017 [facility] URINE AND STOOL UA Urobilinogen <=1.0 mg/dL 0.1 - 1.0 10/16/2017 [facility] URINE AND STOOL UA Sq Epi None Seen 10/16/2017 [facility] URINE AND STOOL UA Mucus Few /LPF None Seen /LPF 10/16/2017 [facility] URINE AND STOOL UA pH 5.5 5.0 - 8.0 10/16/2017 [facility] URINE AND STOOL UA Spec Grav 1.036 <=1.030 10/16/2017 [facility] URINE AND STOOL UA Protein 10 mg/dL Negative mg/dL 10/16/2017 [facility] URINE AND STOOL UA Color Yellow *NA* (10/16/17 10:41 AM) Yellow 10/16/2017 [facility] URINE AND STOOL UA Turbidity Clear (10/16/17 10:41 AM) Clear 10/16/2017 [facility] CARDIAC ENZYMES Troponin-I <0.02 0.00 - 0.40 10/16/2017 [facility] ANEMIA STUDY Folate Lvl 9.8 >=3.0 ng/mL 10/16/2017 [facility] ANEMIA STUDY Vitamin B12 Lvl 236 254 - 1320 10/16/2017 [facility] CARDIAC ENZYMES Troponin-I <0.02 0.00 - 0.40 10/16/2017 [facility] CHEM PANEL Magnesium Lvl 1.4 1.8 - 2.4 10/16/2017 [facility] CHEM PANEL Phosphorus 3.4 2.5 - 4.5 10/16/2017 [facility] LIPIDS LDL (Calculated) 113 <=99 mg/dL 10/16/2017 [facility] LIPIDS VLDL 33 10/16/2017 [facility] LIPIDS Trig 164 <=149 mg/dL 10/16/2017 [facility] LIPIDS Chol 204 <=199 mg/dL 10/16/2017 [facility] LIPIDS HDL 58 >=61 mg/dL 10/16/2017 [facility] LIPIDS CHD Risk 3.52 4.00 - 7.30 10/16/2017 [facility] SPECIAL CHEMISTRY Hgb A1C 7.8 <=5.6 % 10/16/2017 [facility] CARDIAC ENZYMES Troponin-I <0.02 0.00 - 0.40 10/16/2017 [facility] CARDIAC ENZYMES Total CK 45 12 - 191 10/16/2017 [facility] CHEM PANEL B/C Ratio 16 6 - 25 10/16/2017 [facility] CHEM PANEL AGAP 16.1 10.0 - 20.0 10/16/2017 [facility] CHEM PANEL A/G Ratio 1.0 0.7 - 1.6 10/16/2017 [facility] CHEM PANEL Globulin 3.7 2.7 - 4.2 10/16/2017 [facility] CHEM PANEL Bili Total 0.8 0.2 - 1.3 10/16/2017 [facility] CHEM PANEL eGFR 49 10/16/2017 Result Comment: The eGFR is calculated using the CKD-EPI formula. In most young, healthy individuals the eGFR will be >90 mL/min/1.73m2. The eGFR declines with age. An eGFR of 60-89 may be normal in some populations, particularly the elderly, for whom the CKD-EPI formula has not been extensively validated. Use of the eGFR is not recommended in the following populations:

Individuals with unstable creatinine concentrations, including patients and those with serious co-morbid conditions.

Patients with extremes in muscle mass or diet.

The data above are obtained from the National Kidney Disease Education Program (NKDEP) which additionally recommends that when the eGFR is used in patients with extremes of body mass index for purposes of drug dosing, the eGFR should be multiplied by the estimated BMI. [facility] CHEM PANEL Alk Phos 59 39 - 136 10/16/2017 [facility] CHEM PANEL AST 55 0 - 37 10/16/2017 [facility] CHEM PANEL ALT 50 0 - 65 10/16/2017 [facility] CHEM PANEL Calcium Lvl 8.8 8.5 - 10.5 10/16/2017 [facility] CHEM PANEL CO2 23 24 - 32 10/16/2017 [facility] CHEM PANEL Chloride Lvl 104 95 - 109 10/16/2017 [facility] CHEM PANEL Potassium Lvl 4.1 3.5 - 5.1 10/16/2017 [facility] CHEM PANEL Albumin Lvl 3.8 3.5 - 5.0 10/16/2017 [facility] CHEM PANEL Total Protein 7.5 6.4 - 8.4 10/16/2017 [facility] CHEM PANEL Glucose Lvl 108 70 - 99 10/16/2017 [facility] CHEM PANEL Creatinine Lvl 1.48 0.50 - 1.40 10/16/2017 [facility] CHEM PANEL BUN 23 7 - 22 10/16/2017 [facility] CHEM PANEL Sodium Lvl 139 135 - 145 10/16/2017 [facility] HEMATOLOGY MPV 8.2 7.4 - 10.4 10/16/2017 [facility] HEMATOLOGY Hgb 14.4 14.0 - 18.0 10/16/2017 [facility] HEMATOLOGY WBC 8.3 3.7 - 10.4 10/16/2017 [facility] HEMATOLOGY RBC 3.82 4.70 - 6.10 10/16/2017 [facility] HEMATOLOGY Hct 42.2 42.0 - 54.0 10/16/2017 [facility] HEMATOLOGY MCV 110.4 80.0 - 94.0 10/16/2017 [facility] HEMATOLOGY RDW 14.1 11.5 - 14.5 10/16/2017 [facility] HEMATOLOGY Platelet 201 133 - 450 10/16/2017 [facility] HEMATOLOGY MCH 37.8 27.0 - 31.0 10/16/2017 [facility] HEMATOLOGY MCHC 34.2 32.0 - 36.0 10/16/2017 [facility] HEMATOLOGY PT 13.7 12.0 - 14.7 10/16/2017 [facility] HEMATOLOGY INR 1.05 0.85 - 1.17 10/16/2017 [facility] HEMATOLOGY PTT 30.3 22.9 - 35.8 10/16/2017 [facility] HEMATOLOGY Eosinophils # 0.2 0.0 - 0.5 10/16/2017 [facility] HEMATOLOGY Basophils # 0.1 0.0 - 0.2 10/16/2017 [facility] HEMATOLOGY Macrocyte 3+ *NA* (10/16/17 1:00 AM) None Seen 10/16/2017 [facility] HEMATOLOGY Monocytes # 0.9 0.0 - 0.8 10/16/2017 [facility] HEMATOLOGY Segs 52.5 45.0 - 75.0 10/16/2017 [facility] HEMATOLOGY Lymphocytes 33.7 20.0 - 40.0 10/16/2017 [facility] HEMATOLOGY Monocytes 10.3 2.0 - 12.0 10/16/2017 [facility] HEMATOLOGY Lymphocytes # 2.8 1.0 - 5.5 10/16/2017 [facility] HEMATOLOGY Eosinophils 2.2 0.0 - 4.0 10/16/2017 [facility] HEMATOLOGY Basophils 1.3 0.0 - 1.0 10/16/2017 [facility] HEMATOLOGY Neutrophils # 4.3 1.5 - 8.1 10/16/2017 [facility] CHEM PANEL eGFR 48 10/16/2017 Result Comment: The eGFR is calculated using the CKD-EPI formula. In most young, healthy individuals the eGFR will be >90 mL/min/1.73m2. The eGFR declines with age. An eGFR of 60-89 may be normal in some populations, particularly the elderly, for whom the CKD-EPI formula has not been extensively validated. Use of the eGFR is not recommended in the following populations:

Individuals with unstable creatinine concentrations, including patients and those with serious co-morbid conditions.

Patients with extremes in muscle mass or diet.

The data above are obtained from the National Kidney Disease Education Program (NKDEP) which additionally recommends that when the eGFR is used in patients with extremes of body mass index for purposes of drug dosing, the eGFR should be multiplied by the estimated BMI. [facility] CHEM PANEL POC Hemoglobin 15.6 14.0 - 18.0 10/16/2017 [facility] CHEM PANEL POC Glucose 113 70 - 99 10/16/2017 [facility] CHEM PANEL POC Ion Ca 1.00 1.05 - 1.25 10/16/2017 [facility] CHEM PANEL POC BUN 24 7 - 22 10/16/2017 [facility] CHEM PANEL POC Creatinine 1.5 0.5 - 1.4 10/16/2017 [facility] CHEM PANEL POC Potassium 4.3 3.5 - 5.1 10/16/2017 [facility] CHEM PANEL POC Chloride 102 95 - 109 10/16/2017 [facility] CHEM PANEL POC Sodium 139 135 - 145 10/16/2017 [facility] CHEM PANEL POC Carbon Dioxide 21 24 - 32 10/16/2017 [facility] CHEM PANEL POC AGAP 20.0 10.0 - 20.0 10/16/2017 [facility] CHEM PANEL POC Hematocrit 46.0 42.0 - 54.0 10/16/2017 [facility] CARDIAC ENZYMES BNP 976 <=100 pg/mL 06/03/2017 [facility] ELECTROLYTES AGAP 12.0 10.0 - 20.0 06/03/2017 [facility] ELECTROLYTES eGFR 46 06/03/2017 Result Comment: The eGFR is calculated using the CKD-EPI formula. In most young, healthy individuals the eGFR will be >90 mL/min/1.73m2. The eGFR declines with age. An eGFR of 60-89 may be normal in some populations, particularly the elderly, for whom the CKD-EPI formula has not been extensively validated. Use of the eGFR is not recommended in the following populations:

Individuals with unstable creatinine concentrations, including patients and those with serious co-morbid conditions.

Patients with extremes in muscle mass or diet.

The data above are obtained from the National Kidney Disease Education Program (NKDEP) which additionally recommends that when the eGFR is used in patients with extremes of body mass index for purposes of drug dosing, the eGFR should be multiplied by the estimated BMI. [facility] ELECTROLYTES CO2 29 24 - 32 06/03/2017 [facility] ELECTROLYTES Calcium Lvl 9.7 8.5 - 10.5 06/03/2017 [facility] ELECTROLYTES Potassium Lvl 5.0 3.5 - 5.1 06/03/2017 [facility] ELECTROLYTES Sodium Lvl 139 135 - 145 06/03/2017 [facility] ELECTROLYTES BUN 32 7 - 22 06/03/2017 [facility] ELECTROLYTES Creatinine Lvl 1.57 0.50 - 1.40 06/03/2017 [facility] ELECTROLYTES Chloride Lvl 103 95 - 109 06/03/2017 [facility] ELECTROLYTES Glucose Lvl 159 70 - 99 06/03/2017 [facility] HEMATOLOGY Eosinophils # 0.3 0.0 - 0.5 06/03/2017 [facility] HEMATOLOGY Basophils # 0.2 0.0 - 0.2 06/03/2017 [facility] HEMATOLOGY Lymphocytes # 2.4 1.0 - 5.5 06/03/2017 [facility] HEMATOLOGY Monocytes # 0.9 0.0 - 0.8 06/03/2017 [facility] HEMATOLOGY Basophils 2.5 0.0 - 1.0 06/03/2017 [facility] HEMATOLOGY Segs-Bands # 2.4 1.5 - 8.1 06/03/2017 [facility] HEMATOLOGY Segs 38.6 45.0 - 75.0 06/03/2017 [facility] HEMATOLOGY Monocytes 14.3 2.0 - 12.0 06/03/2017 [facility] HEMATOLOGY Lymphocytes 39.3 20.0 - 40.0 06/03/2017 [facility] HEMATOLOGY Eosinophils 5.3 0.0 - 4.0 06/03/2017 [facility] HEMATOLOGY MCHC 34.1 32.0 - 36.0 06/03/2017 [facility] HEMATOLOGY RDW 16.4 11.5 - 14.5 06/03/2017 [facility] HEMATOLOGY MPV 9.0 7.4 - 10.4 06/03/2017 [facility] HEMATOLOGY MCH 35.2 27.0 - 31.0 06/03/2017 [facility] HEMATOLOGY Platelet 173 133 - 450 06/03/2017 [facility] HEMATOLOGY WBC 6.2 3.7 - 10.4 06/03/2017 [facility] HEMATOLOGY MCV 103.3 80.0 - 94.0 06/03/2017 [facility] HEMATOLOGY Hct 45.8 42.0 - 54.0 06/03/2017 [facility] HEMATOLOGY Hgb 15.6 14.0 - 18.0 06/03/2017 [facility] HEMATOLOGY RBC 4.43 4.70 - 6.10 06/03/2017 [facility] CARDIAC ENZYMES BNP 1307 <=100 pg/mL 04/05/2017 [facility] CHEM PANEL A/G Ratio 0.9 0.7 - 1.6 04/05/2017 [facility] CHEM PANEL AGAP 11.6 10.0 - 20.0 04/05/2017 [facility] CHEM PANEL B/C Ratio 11 6 - 25 04/05/2017 [facility] CHEM PANEL Globulin 4.3 2.7 - 4.2 04/05/2017 [facility] CHEM PANEL eGFR 57 04/05/2017 Result Comment: The eGFR is calculated using the CKD-EPI formula. In most young, healthy individuals the eGFR will be >90 mL/min/1.73m2. The eGFR declines with age. An eGFR of 60-89 may be normal in some populations, particularly the elderly, for whom the CKD-EPI formula has not been extensively validated. Use of the eGFR is not recommended in the following populations:

Individuals with unstable creatinine concentrations, including patients and those with serious co-morbid conditions.

Patients with extremes in muscle mass or diet.

The data above are obtained from the National Kid[employer] Education Program (NKDEP) which additionally recommends that when the eGFR is used in patients with extremes of body mass index for purposes of drug dosing, the eGFR should be multiplied by the estimated BMI. [facility] CHEM PANEL Creatinine Lvl 1.32 0.50 - 1.40 04/05/2017 [facility] CHEM PANEL BUN 14 7 - 22 04/05/2017 [facility] CHEM PANEL Glucose Lvl 178 70 - 99 04/05/2017 [facility] CHEM PANEL Total Protein 8.1 6.4 - 8.4 04/05/2017 [facility] CHEM PANEL AST 20 0 - 37 04/05/2017 [facility] CHEM PANEL Albumin Lvl 3.8 3.5 - 5.0 04/05/2017 [facility] CHEM PANEL Alk Phos 104 39 - 136 04/05/2017 [facility] CHEM PANEL ALT 17 0 - 65 04/05/2017 [facility] CHEM PANEL Calcium Lvl 9.6 8.5 - 10.5 04/05/2017 [facility] CHEM PANEL CO2 28 24 - 32 04/05/2017 [facility] CHEM PANEL Potassium Lvl 4.6 3.5 - 5.1 04/05/2017 [facility] CHEM PANEL Sodium Lvl 137 135 - 145 04/05/2017 [facility] CHEM PANEL Chloride Lvl 102 95 - 109 04/05/2017 [facility] CHEM PANEL Bili Total 0.9 0.2 - 1.3 04/05/2017 [facility] HEMATOLOGY Platelet 204 133 - 450 04/05/2017 [facility] HEMATOLOGY RDW 21.4 11.5 - 14.5 04/05/2017 [facility] HEMATOLOGY MCHC 33.9 32.0 - 36.0 04/05/2017 [facility] HEMATOLOGY MCH 34.4 27.0 - 31.0 04/05/2017 [facility] HEMATOLOGY MCV 101.6 80.0 - 94.0 04/05/2017 [facility] HEMATOLOGY Hct 41.0 42.0 - 54.0 04/05/2017 [facility] HEMATOLOGY WBC 8.0 3.7 - 10.4 04/05/2017 [facility] HEMATOLOGY RBC 4.04 4.70 - 6.10 04/05/2017 [facility] HEMATOLOGY Hgb 13.9 14.0 - 18.0 04/05/2017 [facility] HEMATOLOGY MPV 8.1 7.4 - 10.4 04/05/2017 [facility] HEMATOLOGY Segs-Bands # 4.2 1.5 - 8.1 04/05/2017 [facility] HEMATOLOGY Eosinophils 7.3 0.0 - 4.0 04/05/2017 [facility] HEMATOLOGY Basophils 1.0 0.0 - 1.0 04/05/2017 [facility] HEMATOLOGY Monocytes 16.1 2.0 - 12.0 04/05/2017 [facility] HEMATOLOGY Lymphocytes 22.9 20.0 - 40.0 04/05/2017 [facility] HEMATOLOGY Segs 52.7 45.0 - 75.0 04/05/2017 [facility] HEMATOLOGY Basophils # 0.1 0.0 - 0.2 04/05/2017 [facility] HEMATOLOGY Lymphocytes # 1.8 1.0 - 5.5 04/05/2017 [facility] HEMATOLOGY Monocytes # 1.3 0.0 - 0.8 04/05/2017 [facility] HEMATOLOGY Eosinophils # 0.6 0.0 - 0.5 04/05/2017 [facility] CHEM PANEL eGFR 63 03/07/2017 Result Comment: The eGFR is calculated using the CKD-EPI formula. In most young, healthy individuals the eGFR will be >90 mL/min/1.73m2. The eGFR declines with age. An eGFR of 60-89 may be normal in some populations, particularly the elderly, for whom the CKD-EPI formula has not been extensively validated. Use of the eGFR is not recommended in the following populations:

Individuals with unstable creatinine concentrations, including patients and those with serious co-morbid conditions.

Patients with extremes in muscle mass or diet.

The data above are obtained from the National Kidney Disease Education Program (NKDEP) which additionally recommends that when the eGFR is used in patients with extremes of body mass index for purposes of drug dosing, the eGFR should be multiplied by the estimated BMI. [facility] CHEM PANEL Bili Total 1.1 0.2 - 1.3 03/07/2017 [facility] CHEM PANEL Alk Phos 79 39 - 136 03/07/2017 [facility] CHEM PANEL AST 30 0 - 37 03/07/2017 [facility] CHEM PANEL Albumin Lvl 2.0 3.5 - 5.0 03/07/2017 [facility] CHEM PANEL Total Protein 6.1 6.4 - 8.4 03/07/2017 [facility] CHEM PANEL Calcium Lvl 8.6 8.5 - 10.5 03/07/2017 [facility] CHEM PANEL CO2 27 24 - 32 03/07/2017 [facility] CHEM PANEL ALT 27 0 - 65 03/07/2017 [facility] CHEM PANEL BUN 13 7 - 22 03/07/2017 [facility] CHEM PANEL Potassium Lvl 4.0 3.5 - 5.1 03/07/2017 [facility] CHEM PANEL Sodium Lvl 134 135 - 145 03/07/2017 [facility] CHEM PANEL Chloride Lvl 100 95 - 109 03/07/2017 [facility] CHEM PANEL Glucose Lvl 193 70 - 99 03/07/2017 [facility] CHEM PANEL Creatinine Lvl 1.21 0.50 - 1.40 03/07/2017 [facility] CHEM PANEL A/G Ratio 0.5 0.7 - 1.6 03/07/2017 [facility] CHEM PANEL Globulin 4.1 2.7 - 4.2 03/07/2017 [facility] CHEM PANEL AGAP 11.0 10.0 - 20.0 03/07/2017 [facility] CHEM PANEL B/C Ratio 11 6 - 25 03/07/2017 [facility] HEMATOLOGY Platelet 376 133 - 450 03/07/2017 [facility] HEMATOLOGY RDW 22.2 11.5 - 14.5 03/07/2017 [facility] HEMATOLOGY MPV 9.1 7.4 - 10.4 03/07/2017 [facility] HEMATOLOGY RBC 3.44 4.70 - 6.10 03/07/2017 [facility] HEMATOLOGY Hgb 10.8 14.0 - 18.0 03/07/2017 [facility] HEMATOLOGY WBC 11.3 3.7 - 10.4 03/07/2017 [facility] HEMATOLOGY MCHC 33.5 32.0 - 36.0 03/07/2017 [facility] HEMATOLOGY Hct 32.3 42.0 - 54.0 03/07/2017 [facility] HEMATOLOGY MCH 31.4 27.0 - 31.0 03/07/2017 [facility] HEMATOLOGY MCV 93.7 80.0 - 94.0 03/07/2017 [facility] HEMATOLOGY Polychrom Moderate *ABN* (03/07/17 8:45 AM) None Seen 03/07/2017 [facility] HEMATOLOGY Anisocyte 1+ *ABN* (03/07/17 8:45 AM) None Seen 03/07/2017 [facility] HEMATOLOGY Eosinophils 5.4 0.0 - 4.0 03/07/2017 [facility] HEMATOLOGY Segs-Bands # 6.8 1.5 - 8.1 03/07/2017 [facility] HEMATOLOGY Basophils 0.9 0.0 - 1.0 03/07/2017 [facility] HEMATOLOGY Lymphocytes # 1.9 1.0 - 5.5 03/07/2017 [facility] HEMATOLOGY Monocytes # 1.9 0.0 - 0.8 03/07/2017 [facility] HEMATOLOGY Basophils # 0.1 0.0 - 0.2 03/07/2017 [facility] HEMATOLOGY Eosinophils # 0.6 0.0 - 0.5 03/07/2017 [facility] HEMATOLOGY Plt Morph Normal (03/07/17 8:45 AM) 03/07/2017 [facility] HEMATOLOGY Lymphocytes 16.5 20.0 - 40.0 03/07/2017 [facility] HEMATOLOGY Segs 60.4 45.0 - 75.0 03/07/2017 [facility] HEMATOLOGY Monocytes 16.8 2.0 - 12.0 03/07/2017 [facility] CHEM PANEL Alk Phos 69 39 - 136 03/05/2017 [facility] CHEM PANEL Bili Total 1.0 0.2 - 1.3 03/05/2017 [facility] CHEM PANEL Globulin 3.8 2.7 - 4.2 03/05/2017 [facility] CHEM PANEL Total Protein 6.0 6.4 - 8.4 03/05/2017 [facility] CHEM PANEL AST 28 0 - 37 03/05/2017 [facility] CHEM PANEL A/G Ratio 0.6 0.7 - 1.6 03/05/2017 [facility] CHEM PANEL Albumin Lvl 2.2 3.5 - 5.0 03/05/2017 [facility] CHEM PANEL ALT 30 0 - 65 03/05/2017 [facility] CHEM PANEL eGFR 54 03/05/2017 Result Comment: The eGFR is calculated using the CKD-EPI formula. In most young, healthy individuals the eGFR will be >90 mL/min/1.73m2. The eGFR declines with age. An eGFR of 60-89 may be normal in some populations, particularly the elderly, for whom the CKD-EPI formula has not been extensively validated. Use of the eGFR is not recommended in the following populations:

Individuals with unstable creatinine concentrations, including patients and those with serious co-morbid conditions.

Patients with extremes in muscle mass or diet.

The data above are obtained from the National Kidney Disease Education Program (NKDEP) which additionally recommends that when the eGFR is used in patients with extremes of body mass index for purposes of drug dosing, the eGFR should be multiplied by the estimated BMI. [facility] CHEM PANEL Creatinine Lvl 1.37 0.50 - 1.40 03/05/2017 [facility] CHEM PANEL Chloride Lvl 99 95 - 109 03/05/2017 [facility] CHEM PANEL Potassium Lvl 4.0 3.5 - 5.1 03/05/2017 [facility] CHEM PANEL Sodium Lvl 132 135 - 145 03/05/2017 [facility] CHEM PANEL B/C Ratio 12 6 - 25 03/05/2017 [facility] CHEM PANEL AGAP 9.0 10.0 - 20.0 03/05/2017 [facility] CHEM PANEL Calcium Lvl 8.2 8.5 - 10.5 03/05/2017 [facility] CHEM PANEL CO2 28 24 - 32 03/05/2017 [facility] CHEM PANEL BUN 16 7 - 22 03/05/2017 [facility] CHEM PANEL Glucose Lvl 223 70 - 99 03/05/2017 [facility] HEMATOLOGY Monocytes # 1.4 0.0 - 0.8 03/05/2017 [facility] HEMATOLOGY Anisocyte 1+ *ABN* (03/05/17 2:37 PM) None Seen 03/05/2017 [facility] HEMATOLOGY Basophils # 0.1 0.0 - 0.2 03/05/2017 [facility] HEMATOLOGY Eosinophils # 0.5 0.0 - 0.5 03/05/2017 [facility] HEMATOLOGY Basophils 0.7 0.0 - 1.0 03/05/2017 [facility] HEMATOLOGY Eosinophils 4.8 0.0 - 4.0 03/05/2017 [facility] HEMATOLOGY Monocytes 12.3 2.0 - 12.0 03/05/2017 [facility] HEMATOLOGY Lymphocytes 18.3 20.0 - 40.0 03/05/2017 [facility] HEMATOLOGY Segs 63.9 45.0 - 75.0 03/05/2017 [facility] HEMATOLOGY Lymphocytes # 2.0 1.0 - 5.5 03/05/2017 [facility] HEMATOLOGY Segs-Bands # 7.1 1.5 - 8.1 03/05/2017 [facility] HEMATOLOGY MPV 9.4 7.4 - 10.4 03/05/2017 [facility] HEMATOLOGY Platelet 326 133 - 450 03/05/2017 [facility] HEMATOLOGY MCHC 33.3 32.0 - 36.0 03/05/2017 [facility] HEMATOLOGY RDW 21.7 11.5 - 14.5 03/05/2017 [facility] HEMATOLOGY MCH 31.0 27.0 - 31.0 03/05/2017 [facility] HEMATOLOGY WBC 11.1 3.7 - 10.4 03/05/2017 [facility] HEMATOLOGY RBC 3.43 4.70 - 6.10 03/05/2017 [facility] HEMATOLOGY Hgb 10.6 14.0 - 18.0 03/05/2017 [facility] HEMATOLOGY Hct 31.9 42.0 - 54.0 03/05/2017 [facility] HEMATOLOGY MCV 93.1 80.0 - 94.0 03/05/2017 [facility] ELECTROLYTES Potassium Lvl 4.5 3.5 - 5.1 03/05/2017 [facility] CHEM PANEL eGFR 62 03/04/2017 Result Comment: The eGFR is calculated using the CKD-EPI formula. In most young, healthy individuals the eGFR will be >90 mL/min/1.73m2. The eGFR declines with age. An eGFR of 60-89 may be normal in some populations, particularly the elderly, for whom the CKD-EPI formula has not been extensively validated. Use of the eGFR is not recommended in the following populations:

Individuals with unstable creatinine concentrations, including patients and those with serious co-morbid conditions.

Patients with extremes in muscle mass or diet.

The data above are obtained from the National Kidney Disease Education Program (NKDEP) which additionally recommends that when the eGFR is used in patients with extremes of body mass index for purposes of drug dosing, the eGFR should be multiplied by the estimated BMI. [facility] CHEM PANEL Creatinine Lvl 1.23 0.50 - 1.40 03/04/2017 [facility] CHEM PANEL Glucose Lvl 252 70 - 99 03/04/2017 [facility] CHEM PANEL Sodium Lvl 136 135 - 145 03/04/2017 [facility] CHEM PANEL BUN 21 7 - 22 03/04/2017 [facility] CHEM PANEL CO2 30 24 - 32 03/04/2017 [facility] CHEM PANEL Calcium Lvl 8.3 8.5 - 10.5 03/04/2017 [facility] CHEM PANEL Chloride Lvl 101 95 - 109 03/04/2017 [facility] CHEM PANEL AST 29 0 - 37 03/04/2017 [facility] CHEM PANEL Albumin Lvl 2.1 3.5 - 5.0 03/04/2017 [facility] CHEM PANEL Alk Phos 60 39 - 136 03/04/2017 [facility] CHEM PANEL Bili Total 1.3 0.2 - 1.3 03/04/2017 [facility] CHEM PANEL Total Protein 5.8 6.4 - 8.4 03/04/2017 [facility] CHEM PANEL ALT 32 0 - 65 03/04/2017 [facility] CHEM PANEL B/C Ratio 17 6 - 25 03/04/2017 [facility] CHEM PANEL AGAP 8.9 10.0 - 20.0 03/04/2017 [facility] CHEM PANEL Globulin 3.7 2.7 - 4.2 03/04/2017 [facility] CHEM PANEL A/G Ratio 0.6 0.7 - 1.6 03/04/2017 [facility] HEMATOLOGY Lymphocytes 15.8 20.0 - 40.0 03/04/2017 [facility] HEMATOLOGY Segs 62.5 45.0 - 75.0 03/04/2017 [facility] HEMATOLOGY Basophils 0.3 0.0 - 1.0 03/04/2017 [facility] HEMATOLOGY Eosinophils 6.2 0.0 - 4.0 03/04/2017 [facility] HEMATOLOGY Monocytes 15.2 2.0 - 12.0 03/04/2017 [facility] HEMATOLOGY Monocytes # 1.7 0.0 - 0.8 03/04/2017 [facility] HEMATOLOGY Segs-Bands # 6.9 1.5 - 8.1 03/04/2017 [facility] HEMATOLOGY Lymphocytes # 1.8 1.0 - 5.5 03/04/2017 [facility] HEMATOLOGY Eosinophils # 0.7 0.0 - 0.5 03/04/2017 [facility] HEMATOLOGY Anisocyte 1+ *ABN* (03/04/17 10:15 AM) None Seen 03/04/2017 [facility] HEMATOLOGY MPV 9.2 7.4 - 10.4 03/04/2017 [facility] HEMATOLOGY Hgb 10.4 14.0 - 18.0 03/04/2017 [facility] HEMATOLOGY RBC 3.37 4.70 - 6.10 03/04/2017 [facility] HEMATOLOGY WBC 11.1 3.7 - 10.4 03/04/2017 [facility] HEMATOLOGY Platelet 278 133 - 450 03/04/2017 [facility] HEMATOLOGY RDW 21.3 11.5 - 14.5 03/04/2017 [facility] HEMATOLOGY MCHC 33.1 32.0 - 36.0 03/04/2017 [facility] HEMATOLOGY MCH 30.8 27.0 - 31.0 03/04/2017 [facility] HEMATOLOGY MCV 93.1 80.0 - 94.0 03/04/2017 [facility] HEMATOLOGY Hct 31.4 42.0 - 54.0 03/04/2017 [facility] SPECIAL CHEMISTRY Hgb A1C 6.9 <=5.6 % 03/04/2017 [facility] URINE AND STOOL UA Glucose 500mg/dL 03/04/2017 [facility] URINE AND STOOL UA Sq Epi None Seen 03/04/2017 [facility] URINE AND STOOL UA WBC <1 0 - 5 03/04/2017 [facility] URINE AND STOOL UA Blood Negative (03/04/17 2:52 AM) Negative 03/04/2017 [facility] URINE AND STOOL UA Urobilinogen 2.0 0.1 - 1.0 03/04/2017 [facility] URINE AND STOOL UA Nitrite Negative (03/04/17 2:52 AM) Negative 03/04/2017 [facility] URINE AND STOOL UA Leuk Est Negative (03/04/17 2:52 AM) Negative 03/04/2017 [facility] URINE AND STOOL UA Spec Grav 1.009 <=1.030 03/04/2017 [facility] URINE AND STOOL UA pH 7.0 5.0 - 8.0 03/04/2017 [facility] URINE AND STOOL UA Bili Negative *NA* (03/04/17 2:52 AM) Negative 03/04/2017 [facility] URINE AND STOOL UA Protein Negative mg/dL Negative mg/dL 03/04/2017 [facility] URINE AND STOOL UA Ketones Negative mg/dL Negative mg/dL 03/04/2017 [facility] URINE AND STOOL UA Color Yellow *NA* (03/04/17 2:52 AM) Yellow 03/04/2017 [facility] URINE AND STOOL UA Turbidity Clear (03/04/17 2:52 AM) Clear 03/04/2017 [facility] HEMATOLOGY Polychrom Slight 03/03/2017 [facility] HEMATOLOGY Large Plt Moderate *ABN* (03/03/17 9:17 AM) None Seen 03/03/2017 [facility] HEMATOLOGY Macrocyte 1+ *ABN* (03/03/17 9:17 AM) None Seen 03/03/2017 [facility] HEMATOLOGY Basophils # 0.1 0.0 - 0.2 03/03/2017 [facility] SPECIAL CHEMISTRY Hgb A1C 7.2 <=5.6 % 03/03/2017 [facility] ANEMIA STUDY Folate Lvl 11.0 >=3.0 ng/mL 03/02/2017 [facility] ANEMIA STUDY Vitamin B12 Lvl 464 254 - 1320 03/02/2017 [facility] ANEMIA STUDY UIBC 146 110 - 370 03/02/2017 [facility] ANEMIA STUDY TIBC 187 228 - 428 03/02/2017 [facility] ANEMIA STUDY Iron 41 45 - 160 03/02/2017 [facility] ANEMIA STUDY % Satur Fe 22 12 - 57 03/02/2017 [facility] ANEMIA STUDY Ferritin Lvl 613 22 - 275 03/02/2017 [facility] ANEMIA STUDY RBC Folate 893 280 - 791 03/02/2017 [facility] CHEM PANEL Magnesium Lvl 1.8 1.8 - 2.4 03/02/2017 [facility] CHEM PANEL Phosphorus 2.1 2.5 - 4.5 03/02/2017 [facility] HEMATOLOGY Bands 0.0 0.0 - 11.0 03/02/2017 [facility] HEMATOLOGY Polychrom Slight 03/02/2017 [facility] HEMATOLOGY NRBC 1 03/02/2017 [facility] HEMATOLOGY Plt Morph Normal (03/02/17 6:19 AM) 03/02/2017 [facility] HEMATOLOGY Myelocytes 2.0 <=0.0 % 03/02/2017 [facility] HEMATOLOGY Atypical Lymphs 0.0 <=0.0 % 03/02/2017 [facility] BLOOD BANK RESULTS Antibody Scrn Negative (03/01/17 3:59 AM) 03/01/2017 [facility] BLOOD BANK RESULTS ABO/Rh B POS 03/01/2017 [facility] CHEM PANEL Magnesium Lvl 1.9 1.8 - 2.4 03/01/2017 [facility] CHEM PANEL Phosphorus 2.6 2.5 - 4.5 03/01/2017 [facility] HEMATOLOGY PT 17.2 12.0 - 14.7 03/01/2017 [facility] HEMATOLOGY INR 1.40 0.85 - 1.17 03/01/2017 [facility] HEMATOLOGY PTT 34.6 22.9 - 35.8 03/01/2017 [facility] PARATHYROID PROFILE Ca Norm WB 1.19 1.05 - 1.25 03/01/2017 [facility] PARATHYROID PROFILE Ca Ion WB 1.20 1.05 - 1.25 03/01/2017 [facility] CHEM PANEL Procalcitonin Lvl 0.24 0.00 - 0.10 02/28/2017 [facility] CHEM PANEL Bili Direct 0.6 0.0 - 0.3 02/28/2017 [facility] CHEM PANEL Phosphorus 2.4 2.5 - 4.5 02/28/2017 [facility] CHEM PANEL Magnesium Lvl 2.0 1.8 - 2.4 02/28/2017 [facility] CHEM PANEL Lactic Acid Lvl 2.2 0.5 - 2.2 02/28/2017 [facility] HEMATOLOGY PT 17.1 12.0 - 14.7 02/28/2017 [facility] HEMATOLOGY D-Dimer 2.42 02/28/2017 [facility] HEMATOLOGY INR 1.39 0.85 - 1.17 02/28/2017 [facility] HEMATOLOGY Thrombin Time 20.7 15.0 - 21.2 02/28/2017 [facility] HEMATOLOGY PTT 33.6 22.9 - 35.8 02/28/2017 [facility] HEMATOLOGY Fibrinogen Lvl 372 230 - 510 02/28/2017 [facility] PARATHYROID PROFILE Ca Norm WB 1.25 1.05 - 1.25 02/28/2017 [facility] PARATHYROID PROFILE Ca Ion WB 1.22 1.05 - 1.25 02/28/2017 [facility] CHEM PANEL Bili Direct 0.2 0.0 - 0.3 02/27/2017 [facility] CHEM PANEL Plasma Hemoglobin <10 0 - 10 02/27/2017 [facility] CHEM PANEL LDH 392 98 - 192 02/27/2017 [facility] CHEM PANEL Lactic Acid Lvl 1.1 0.5 - 2.2 02/27/2017 [facility] HEMATOLOGY Plt Morph Normal (02/27/17 3:24 AM) 02/27/2017 [facility] HEMATOLOGY Thrombin Time 17.1 15.0 - 21.2 02/27/2017 [facility] HEMATOLOGY PTT 30.8 22.9 - 35.8 02/27/2017 [facility] HEMATOLOGY Fibrinogen Lvl 376 230 - 510 02/27/2017 [facility] HEMATOLOGY D-Dimer 2.28 02/27/2017 [facility] HEMATOLOGY INR 1.36 0.85 - 1.17 02/27/2017 [facility] HEMATOLOGY PT 16.8 12.0 - 14.7 02/27/2017 [facility] PARATHYROID PROFILE Ca Norm WB 1.21 1.05 - 1.25 02/27/2017 [facility] PARATHYROID PROFILE Ca Ion WB 1.23 1.05 - 1.25 02/27/2017 [facility] CHEM PANEL Bili Direct 0.2 0.0 - 0.3 02/26/2017 [facility] CHEM PANEL Plasma Hemoglobin <10 0 - 10 02/26/2017 [facility] CHEM PANEL LDH 333 98 - 192 02/26/2017 [facility] CHEM PANEL Lactic Acid Lvl 1.0 0.5 - 2.2 02/26/2017 [facility] HEMATOLOGY Bands 2.0 0.0 - 11.0 02/26/2017 [facility] HEMATOLOGY Atypical Lymphs 0.0 <=0.0 % 02/26/2017 [facility] HEMATOLOGY D-Dimer 1.29 02/26/2017 [facility] HEMATOLOGY Thrombin Time 17.4 15.0 - 21.2 02/26/2017 [facility] HEMATOLOGY Fibrinogen Lvl 420 230 - 510 02/26/2017 [facility] BLOOD BANK RESULTS Antibody Scrn Negative (02/25/17 2:53 AM) 02/25/2017 [facility] BLOOD BANK RESULTS ABO/Rh B POS 02/25/2017 [facility] CHEM PANEL Bili Indirect 0.6 0.0 - 1.0 02/25/2017 [facility] BLOOD BANK RESULTS RBC product Product available (02/25/17 12:20 AM) 02/25/2017 [facility] BLOOD BANK RESULTS Platelet product Product available (02/25/17 12:20 AM) 02/25/2017 [facility] BLOOD BANK RESULTS FFP product Modification Required (02/25/17 12:20 AM) 02/25/2017 [facility] URINE AND STOOL UA Leuk Est Negative (02/24/17 5:16 PM) Negative 02/24/2017 [facility] URINE AND STOOL UA WBC 2 0 - 5 02/24/2017 [facility] URINE AND STOOL UA RBC 3 0 - 2 02/24/2017 [facility] URINE AND STOOL UA Mucus Few /LPF None Seen /LPF 02/24/2017 [facility] URINE AND STOOL UA Sq Epi None Seen 02/24/2017 [facility] URINE AND STOOL UA Urobilinogen <=1.0 mg/dL 0.1 - 1.0 02/24/2017 [facility] URINE AND STOOL UA Ketones TR 02/24/2017 [facility] URINE AND STOOL UA Nitrite Negative (02/24/17 5:16 PM) Negative 02/24/2017 [facility] URINE AND STOOL UA Glucose 50 mg/dL Negative mg/dL 02/24/2017 [facility] URINE AND STOOL UA Bili Negative *NA* (02/24/17 5:16 PM) Negative 02/24/2017 [facility] URINE AND STOOL UA Blood Negative (02/24/17 5:16 PM) Negative 02/24/2017 [facility] URINE AND STOOL UA Protein 50 mg/dL Negative mg/dL 02/24/2017 [facility] URINE AND STOOL UA Turbidity Clear (02/24/17 5:16 PM) Clear 02/24/2017 [facility] URINE AND STOOL UA Spec Grav 1.017 <=1.030 02/24/2017 [facility] URINE AND STOOL UA Color Yellow *NA* (02/24/17 5:16 PM) Yellow 02/24/2017 [facility] URINE AND STOOL UA pH 8.5 5.0 - 8.0 02/24/2017 [facility] BLOOD BANK RESULTS RBC product Product available (02/24/17 3:46 PM) 02/24/2017 [facility] CHEM PANEL Bili Indirect 0.7 0.0 - 1.0 02/24/2017 [facility] MOLECULAR DIAGNOSTIC Parainfluenza 2 PCR Negative (02/23/17 9:22 PM) Negative 02/24/2017 [facility] MOLECULAR DIAGNOSTIC Parainfluenza 1 PCR Negative (02/23/17 9:22 PM) Negative 02/24/2017 [facility] MOLECULAR DIAGNOSTIC Parainfluenza 3 PCR Negative (02/23/17 9:22 PM) Negative 02/24/2017 [facility] MOLECULAR DIAGNOSTIC Source Parainfluenza Virus PCR [employer] Swab (02/23/17 9:22 PM) 02/24/2017 [facility] MOLECULAR DIAGNOSTIC Adenovirus PCR Negative (02/23/17 9:22 PM) Negative 02/24/2017 [facility] MOLECULAR DIAGNOSTIC Source Adenovirus PCR [employer]OC[employer] Swab (02/23/17 9:22 PM) 02/24/2017 [facility] MOLECULAR DIAGNOSTIC RSV PCR Negative (02/23/17 9:22 PM) Negative 02/24/2017 [facility] MOLECULAR DIAGNOSTIC Influenza B PCR Negative (02/23/17 9:22 PM) Negative 02/24/2017 [facility] MOLECULAR DIAGNOSTIC Source Respiratory Panel PCR [employer] JOC[employer] Swab (02/23/17 9:22 PM) 02/24/2017 [facility] MOLECULAR DIAGNOSTIC Influenza A PCR Negative (02/23/17 9:22 PM) Negative 02/24/2017 [facility] BLOOD BANK RESULTS FFP product Product available (02/23/17 7:32 PM) 02/24/2017 [facility] BLOOD BANK RESULTS Platelet product Product available (02/23/17 7:32 PM) 02/24/2017 [facility] BLOOD BANK RESULTS FFP product Product available (02/23/17 7:32 PM) 02/24/2017 [facility] BLOOD BANK RESULTS Platelet product Product available (02/23/17 7:32 PM) 02/24/2017 [facility] BLOOD BANK RESULTS RBC product Product available (02/23/17 7:32 PM) 02/24/2017 [facility] HEMATOLOGY LY30 Hep 0.0 0.0 - 7.5 02/23/2017 [facility] HEMATOLOGY TEG Data See Note (02/23/17 3:15 PM) 02/23/2017 [facility] HEMATOLOGY Coag Index Hep 0.9 -3.0-3.0 - 3.0 02/23/2017 [facility] HEMATOLOGY R-Time Hep 5.7 5.0 - 10.0 02/23/2017 [facility] HEMATOLOGY G-Value Hep 8.9 4.5 - 11.0 02/23/2017 [facility] HEMATOLOGY Max Amp Hep 64.1 50.0 - 70.0 02/23/2017 [facility] HEMATOLOGY Angle Hep 67.5 53.0 - 72.0 02/23/2017 [facility] HEMATOLOGY K-Time Hep 1.6 1.0 - 3.0 02/23/2017 [facility] HEMATOLOGY Macrocyte 1+ *ABN* (02/23/17 3:50 AM) None Seen 02/23/2017 [facility] HEMATOLOGY Plav Effect Plt 160 02/23/2017 [facility] BACTERIAL - SEROLOGY MRSA by PCR Negative (02/22/17 8:26 PM) 02/23/2017 [facility] BLOOD BANK RESULTS Antibody Scrn Negative (02/22/17 8:17 PM) 02/23/2017 [facility] BLOOD BANK RESULTS ABO/Rh B POS 02/23/2017 [facility] HEMATOLOGY Macrocyte 2+ *ABN* (02/22/17 5:21 AM) None Seen 02/22/2017 [facility] CARDIAC ENZYMES BNP 490 <=100 pg/mL 02/20/2017 [facility] HEMATOLOGY Smudge Slight 02/20/2017 [facility] HEMATOLOGY Bands 0.0 0.0 - 11.0 02/20/2017 [facility] HEMATOLOGY Atypical Lymphs 0.0 <=0.0 % 02/20/2017 [facility] HEMATOLOGY Tot Cell Ct 100 02/20/2017 [facility] HEMATOLOGY PTT 55.7 22.9 - 35.8 02/19/2017 [facility] HEMATOLOGY PTT 61.5 22.9 - 35.8 02/19/2017 [facility] HEMATOLOGY INR 1.27 0.85 - 1.17 02/19/2017 [facility] HEMATOLOGY PT 16.0 12.0 - 14.7 02/19/2017 [facility] ELECTROLYTES AGAP 9.5 10.0 - 20.0 02/19/2017 [facility] ELECTROLYTES CO2 32 24 - 32 02/19/2017 [facility] ELECTROLYTES Chloride Lvl 93 95 - 109 02/19/2017 [facility] ELECTROLYTES Calcium Lvl 8.8 8.5 - 10.5 02/19/2017 [facility] ELECTROLYTES eGFR 78 02/19/2017 Result Comment: The eGFR is calculated using the CKD-EPI formula. In most young, healthy individuals the eGFR will be >90 mL/min/1.73m2. The eGFR declines with age. An eGFR of 60-89 may be normal in some populations, particularly the elderly, for whom the CKD-EPI formula has not been extensively validated. Use of the eGFR is not recommended in the following populations:

Individuals with unstable creatinine concentrations, including patients and those with serious co-morbid conditions.

Patients with extremes in muscle mass or diet.

The data above are obtained from the National Kidney Disease Education Program (NKDEP) which additionally recommends that when the eGFR is used in patients with extremes of body mass index for purposes of drug dosing, the eGFR should be multiplied by the estimated BMI. [facility] ELECTROLYTES Potassium Lvl 3.5 3.5 - 5.1 02/19/2017 [facility] ELECTROLYTES Sodium Lvl 131 135 - 145 02/19/2017 [facility] ELECTROLYTES Creatinine Lvl 1.02 0.50 - 1.40 02/19/2017 [facility] ELECTROLYTES BUN 22 7 - 22 02/19/2017 [facility] ELECTROLYTES Glucose Lvl 281 70 - 99 02/19/2017 [facility] HEMATOLOGY MPV 9.4 7.4 - 10.4 02/19/2017 [facility] HEMATOLOGY RBC 4.16 4.70 - 6.10 02/19/2017 [facility] HEMATOLOGY WBC 7.6 3.7 - 10.4 02/19/2017 [facility] HEMATOLOGY Platelet 167 133 - 450 02/19/2017 [facility] HEMATOLOGY RDW 13.0 11.5 - 14.5 02/19/2017 [facility] HEMATOLOGY MCH 36.6 27.0 - 31.0 02/19/2017 [facility] HEMATOLOGY MCHC 35.0 32.0 - 36.0 02/19/2017 [facility] HEMATOLOGY MCV 104.5 80.0 - 94.0 02/19/2017 [facility] HEMATOLOGY Hct 43.5 42.0 - 54.0 02/19/2017 [facility] HEMATOLOGY Hgb 15.2 14.0 - 18.0 02/19/2017 [facility] CHEM PANEL Magnesium Lvl 1.5 1.8 - 2.4 02/19/2017 [facility] HEMATOLOGY PT 15.4 12.0 - 14.7 02/19/2017 [facility] HEMATOLOGY INR 1.21 0.85 - 1.17 02/19/2017 [facility] HEMATOLOGY PTT 46.1 22.9 - 35.8 02/19/2017 [facility] CARDIAC ENZYMES BNP 648 <=100 pg/mL 02/18/2017 [facility] CHEM PANEL eGFR 76 02/18/2017 Result Comment: The eGFR is calculated using the CKD-EPI formula. In most young, healthy individuals the eGFR will be >90 mL/min/1.73m2. The eGFR declines with age. An eGFR of 60-89 may be normal in some populations, particularly the elderly, for whom the CKD-EPI formula has not been extensively validated. Use of the eGFR is not recommended in the following populations:

Individuals with unstable creatinine concentrations, including patients and those with serious co-morbid conditions.

Patients with extremes in muscle mass or diet.

The data above are obtained from the National Kidney Disease Education Program (NKDEP) which additionally recommends that when the eGFR is used in patients with extremes of body mass index for purposes of drug dosing, the eGFR should be multiplied by the estimated BMI. [facility] CHEM PANEL Bili Total 1.2 0.2 - 1.3 02/18/2017 [facility] CHEM PANEL Total Protein 6.7 6.4 - 8.4 02/18/2017 [facility] CHEM PANEL Albumin Lvl 2.9 3.5 - 5.0 02/18/2017 [facility] CHEM PANEL Potassium Lvl 3.7 3.5 - 5.1 02/18/2017 [facility] CHEM PANEL Chloride Lvl 94 95 - 109 02/18/2017 [facility] CHEM PANEL Calcium Lvl 9.4 8.5 - 10.5 02/18/2017 [facility] CHEM PANEL Sodium Lvl 133 135 - 145 02/18/2017 [facility] CHEM PANEL CO2 30 24 - 32 02/18/2017 [facility] CHEM PANEL Creatinine Lvl 1.04 0.50 - 1.40 02/18/2017 [facility] CHEM PANEL Glucose Lvl 196 70 - 99 02/18/2017 [facility] CHEM PANEL BUN 26 7 - 22 02/18/2017 [facility] CHEM PANEL AST 44 0 - 37 02/18/2017 [facility] CHEM PANEL ALT 66 0 - 65 02/18/2017 [facility] CHEM PANEL Alk Phos 53 39 - 136 02/18/2017 [facility] CHEM PANEL B/C Ratio 25 6 - 25 02/18/2017 [facility] CHEM PANEL Globulin 3.8 2.7 - 4.2 02/18/2017 [facility] CHEM PANEL AGAP 12.7 10.0 - 20.0 02/18/2017 [facility] CHEM PANEL A/G Ratio 0.8 0.7 - 1.6 02/18/2017 [facility] HEMATOLOGY Platelet 154 133 - 450 02/18/2017 [facility] HEMATOLOGY MPV 9.2 7.4 - 10.4 02/18/2017 [facility] HEMATOLOGY Hgb 16.3 14.0 - 18.0 02/18/2017 [facility] HEMATOLOGY MCHC 34.8 32.0 - 36.0 02/18/2017 [facility] HEMATOLOGY RDW 13.2 11.5 - 14.5 02/18/2017 [facility] HEMATOLOGY MCV 105.9 80.0 - 94.0 02/18/2017 [facility] HEMATOLOGY MCH 36.9 27.0 - 31.0 02/18/2017 [facility] HEMATOLOGY Hct 46.9 42.0 - 54.0 02/18/2017 [facility] HEMATOLOGY RBC 4.43 4.70 - 6.10 02/18/2017 [facility] HEMATOLOGY WBC 9.6 3.7 - 10.4 02/18/2017 [facility] HEMATOLOGY Lymphocytes # 3.4 1.0 - 5.5 02/18/2017 [facility] HEMATOLOGY Monocytes # 1.6 0.0 - 0.8 02/18/2017 [facility] HEMATOLOGY Basophils # 0.1 0.0 - 0.2 02/18/2017 [facility] HEMATOLOGY Eosinophils # 0.2 0.0 - 0.5 02/18/2017 [facility] HEMATOLOGY Segs 45.0 45.0 - 75.0 02/18/2017 [facility] HEMATOLOGY Segs-Bands # 4.3 1.5 - 8.1 02/18/2017 [facility] HEMATOLOGY Macrocyte 1+ *ABN* (02/18/17 7:25 AM) None Seen 02/18/2017 [facility] HEMATOLOGY Monocytes 17.0 2.0 - 12.0 02/18/2017 [facility] HEMATOLOGY Basophils 0.7 0.0 - 1.0 02/18/2017 [facility] HEMATOLOGY Lymphocytes 35.1 20.0 - 40.0 02/18/2017 [facility] HEMATOLOGY Eosinophils 2.2 0.0 - 4.0 02/18/2017 [facility] HEMATOLOGY MPV 9.2 7.4 - 10.4 02/17/2017 [facility] HEMATOLOGY RDW 13.5 11.5 - 14.5 02/17/2017 [facility] HEMATOLOGY Platelet 181 133 - 450 02/17/2017 [facility] HEMATOLOGY MCH 36.3 27.0 - 31.0 02/17/2017 [facility] HEMATOLOGY MCHC 34.2 32.0 - 36.0 02/17/2017 [facility] HEMATOLOGY WBC 8.0 3.7 - 10.4 02/17/2017 [facility] HEMATOLOGY Hgb 16.4 14.0 - 18.0 02/17/2017 [facility] HEMATOLOGY Hct 47.9 42.0 - 54.0 02/17/2017 [facility] HEMATOLOGY MCV 106.3 80.0 - 94.0 02/17/2017 [facility] HEMATOLOGY RBC 4.50 4.70 - 6.10 02/17/2017 [facility] HEMATOLOGY Lymphocytes 30.1 20.0 - 40.0 02/17/2017 [facility] HEMATOLOGY Segs 53.0 45.0 - 75.0 02/17/2017 [facility] HEMATOLOGY Plt Morph Normal (02/17/17 5:44 AM) 02/17/2017 [facility] HEMATOLOGY RBC Morph Normal (02/17/17 5:44 AM) 02/17/2017 [facility] HEMATOLOGY Basophils # 0.1 0.0 - 0.2 02/17/2017 [facility] HEMATOLOGY Monocytes # 1.1 0.0 - 0.8 02/17/2017 [facility] HEMATOLOGY Lymphocytes # 2.4 1.0 - 5.5 02/17/2017 [facility] HEMATOLOGY Eosinophils # 0.2 0.0 - 0.5 02/17/2017 [facility] HEMATOLOGY Segs-Bands # 4.2 1.5 - 8.1 02/17/2017 [facility] HEMATOLOGY Basophils 1.0 0.0 - 1.0 02/17/2017 [facility] HEMATOLOGY Eosinophils 2.1 0.0 - 4.0 02/17/2017 [facility] HEMATOLOGY Monocytes 13.8 2.0 - 12.0 02/17/2017 [facility] HEMATOLOGY Monocytes 12.5 2.0 - 12.0 02/17/2017 [facility] HEMATOLOGY Lymphocytes 18.7 20.0 - 40.0 02/17/2017 [facility] HEMATOLOGY Segs 66.7 45.0 - 75.0 02/17/2017 [facility] HEMATOLOGY Segs-Bands # 5.2 1.5 - 8.1 02/17/2017 [facility] HEMATOLOGY Lymphocytes # 1.5 1.0 - 5.5 02/17/2017 [facility] HEMATOLOGY Eosinophils 1.4 0.0 - 4.0 02/17/2017 [facility] HEMATOLOGY Basophils 0.7 0.0 - 1.0 02/17/2017 [facility] HEMATOLOGY Basophils # 0.1 0.0 - 0.2 02/17/2017 [facility] HEMATOLOGY Eosinophils # 0.1 0.0 - 0.5 02/17/2017 [facility] HEMATOLOGY Monocytes # 1.0 0.0 - 0.8 02/17/2017 [facility] HEMATOLOGY PT 14.1 12.0 - 14.7 02/17/2017 [facility] HEMATOLOGY INR 1.09 0.85 - 1.17 02/17/2017 [facility] CARDIAC ENZYMES BNP 688 <=100 pg/mL 02/16/2017 [facility] CHEM PANEL eGFR 66 02/16/2017 Result Comment: The eGFR is calculated using the CKD-EPI formula. In most young, healthy individuals the eGFR will be >90 mL/min/1.73m2. The eGFR declines with age. An eGFR of 60-89 may be normal in some populations, particularly the elderly, for whom the CKD-EPI formula has not been extensively validated. Use of the eGFR is not recommended in the following populations:

Individuals with unstable creatinine concentrations, including patients and those with serious co-morbid conditions.

Patients with extremes in muscle mass or diet.

The data above are obtained from the National Kidney Disease Education Program (NKDEP) which additionally recommends that when the eGFR is used in patients with extremes of body mass index for purposes of drug dosing, the eGFR should be multiplied by the estimated BMI. [facility] CHEM PANEL Potassium Lvl 4.3 3.5 - 5.1 02/16/2017 [facility] CHEM PANEL Sodium Lvl 133 135 - 145 02/16/2017 [facility] CHEM PANEL Chloride Lvl 98 95 - 109 02/16/2017 [facility] CHEM PANEL Glucose Lvl 364 70 - 99 02/16/2017 [facility] CHEM PANEL BUN 24 7 - 22 02/16/2017 [facility] CHEM PANEL Creatinine Lvl 1.17 0.50 - 1.40 02/16/2017 [facility] CHEM PANEL Calcium Lvl 9.4 8.5 - 10.5 02/16/2017 [facility] CHEM PANEL CO2 25 24 - 32 02/16/2017 [facility] CHEM PANEL AGAP 14.3 10.0 - 20.0 02/16/2017 [facility] URINE AND STOOL UA Urobilinogen <=1.0 mg/dL 0.1 - 1.0 02/15/2017 [facility] URINE AND STOOL UA Sq Epi None Seen 02/15/2017 [facility] URINE AND STOOL UA Mucus Few /LPF None Seen /LPF 02/15/2017 [facility] URINE AND STOOL UA Sperm Few /HPF None Seen /HPF 02/15/2017 [facility] URINE AND STOOL UA Leuk Est Negative (02/15/17 11:19 AM) Negative 02/15/2017 [facility] URINE AND STOOL UA WBC <1 0 - 5 02/15/2017 [facility] URINE AND STOOL UA RBC 2 0 - 2 02/15/2017 [facility] URINE AND STOOL UA Nitrite Negative (02/15/17 11:19 AM) Negative 02/15/2017 [facility] URINE AND STOOL UA Bili Negative *NA* (02/15/17 11:19 AM) Negative 02/15/2017 [facility] URINE AND STOOL UA Blood Negative (02/15/17 11:19 AM) Negative 02/15/2017 [facility] URINE AND STOOL UA Glucose >=1000 mg/dL Negative mg/dL 02/15/2017 [facility] URINE AND STOOL UA Ketones 40 mg/dL Negative mg/dL 02/15/2017 [facility] URINE AND STOOL UA Spec Grav 1.027 <=1.030 02/15/2017 [facility] URINE AND STOOL UA pH 5.5 5.0 - 8.0 02/15/2017 [facility] URINE AND STOOL UA Protein Negative mg/dL Negative mg/dL 02/15/2017 [facility] URINE AND STOOL UA Color Yellow *NA* (02/15/17 11:19 AM) Yellow 02/15/2017 [facility] URINE AND STOOL UA Turbidity Clear (02/15/17 11:19 AM) Clear 02/15/2017 [facility] CARDIAC ENZYMES Troponin-I 0.02 0.00 - 0.40 02/15/2017 [facility] CARDIAC ENZYMES CK MB 3.7 0.5 - 3.6 02/15/2017 [facility] CARDIAC ENZYMES Total CK 104 12 - 191 02/15/2017 [facility] CARDIAC ENZYMES CK MB Index 3.6 0.0 - 2.5 02/15/2017 [facility] CHEM PANEL Lactic Acid Lvl 1.9 0.5 - 2.2 02/15/2017 [facility] CHEM PANEL A/G Ratio 0.8 0.7 - 1.6 02/15/2017 [facility] CHEM PANEL Total Protein 7.6 6.4 - 8.4 02/15/2017 [facility] CHEM PANEL Albumin Lvl 3.4 3.5 - 5.0 02/15/2017 [facility] CHEM PANEL Alk Phos 71 39 - 136 02/15/2017 [facility] CHEM PANEL Bili Total 1.4 0.2 - 1.3 02/15/2017 [facility] CHEM PANEL B/C Ratio 21 6 - 25 02/15/2017 [facility] CHEM PANEL Globulin 4.2 2.7 - 4.2 02/15/2017 [facility] CHEM PANEL ALT 58 0 - 65 02/15/2017 [facility] CHEM PANEL AST 37 0 - 37 02/15/2017 [facility] Pathology Reports No Data Provided for This Section Diagnostic Reports Report Value Date Source Brain wo contrast MRI Clinical Indication: - Right facial, RUE weakness; Comparison: CT 10/16/2017 TECHNIQUE: Multiplanar multisequence imaging of the brain is performed. Contrast: None. FINDINGS: BRAIN PARENCHYMA: There is mild cortical volume loss. A few tiny foci of increased FLAIR signal in the cerebral white matter are present. There is no mass effect or midline shift. There is no extra-axial fluid collection or intraparenchymal hemorrhage. The corpus callosum appears normal. There is no diffusion weighted imaging or ADC map abnormality to suggest acute/subacute ischemia. There is no magnetic susceptibility to suggest recent or remote intracranial hemorrhage. CEREBELLOPONTINE REGIONS AND SKULL BASE: The cerebellopontine angles appear unremarkable. The skull base, craniocervical junction, and brainstem are normal. The optic chiasm is normal. The sellar and pineal regions are unremarkable. Possible inferomedial left posterior fossa arachnoid cyst is noted. VENTRICLES: The ventricles are normal in size and configuration. The basilar cisterns are normal. VESSELS: The venous sinuses are grossly unremarkable. The expected intracranial flow voids are present. ORBITS, VISUALIZED PARANASAL SINUSES AND MASTOIDS: The visualized orbits and paranasal sinuses are unremarkable. The mastoid air cells are clear. IMPRESSION: 1. No acute intracranial abnormality. 2. Mild atrophy and minimal chronic microvascular ischemic changes. 3. Benign inferior medial left posterior fossa arachnoid cyst. SL: [id number] 10/16/2017 [facility] Chest 1view DX EXAM: XR CHEST 1 VIEW DATE: 10/16/2017 12:59 AM CDT INDICATION: Dizziness. COMPARISON: 03/04/2017. TECHNIQUE: Frontal radiograph of the chest was obtained. FINDINGS: Median sternotomy wires are redemonstrated. No focal consolidation or pneumothorax is identified. The cardiomediastinal silhouette is within normal limits. The costophrenic recesses are sharp and without effusion. No acute osseous abnormality is noted. IMPRESSION: No acute cardiopulmonary abnormality. SL: [id number] 10/16/2017 [facility] Brain wo contrast CT Clinical Indication: Weakness. Recurrent falls. Comparison: None TECHNIQUE: CT images were obtained from the foramen magnum to the vertex without the use of intravenous contrast on a multidetector CT. Coronal and sagittal reconstructions were obtained. CT imaging performed at this location utilizes radiation dose optimization techniques which include one or more of the following: -Automated exposure control -Adjustment of the mA and/or kV according to patient size -Use of iterative reconstruction technique CT Radiation Dose DLP 807 mGy-cm FINDINGS: BRAIN PARENCHYMA: There is generalized brain parenchymal atrophy related to the patient's age. Mild nonspecific periventricular white matter disease changes are noted. Atherosclerotic calcifications are present within the carotid siphons. There is no mass effect, midline shift or edema. There are no intra-axial or extra-axial fluid collections, intraventricular or intraparenchymal hemorrhage. The rock-white differentiation is preserved without CT evidence of acute territorial infarction. VENTRICLES: There is ventriculomegaly, which is most likely due to age-related parenchymal volume loss. There is no evidence of hydrocephalus. The basilar cisterns are within normal limits. ORBITS, MASTOIDS AND PARANASAL SINUSES: There are chronic postsurgical changes from a left medial antrostomy and partial ethmoidectomy. Mild bilateral ethmoid sinus mucosal thickening is seen. The visualized orbits are unremarkable. The mastoid air cells are clear. SKULL: There are no calvarial abnormalities seen. If there is further concern for intracranial pathology or acute stroke, MRI of the brain may be performed for complete assessment. IMPRESSION: No acute intracranial hemorrhage or mass effect. No CT evidence of acute territorial infarction. Mild chronic microvascular ischemic changes. SL: JANE 10/16/2017 [facility] Brain/Neck CTA Clinical Indication: Vertigo. Comparison: CT head 10/16/2017. TECHNIQUE: Sequential trans-axial images of the head and neck were obtained with a multi-detector helical CT after iodinated contrast administration. Coronal and sagittal reconstructions and were obtained, along with 3D post-processing imaging for exam interpretation. CONTRAST: 100 mL of IV Omnipaque contrast material was used for the exam. CT imaging performed at this location utilizes radiation dose optimization techniques which include one or more of the following: -Automated exposure control -Adjustment of the mA and/or kV according to patient size -Use of iterative reconstruction technique CT Radiation Dose DLP 414 mGy-cm FINDINGS: CTA NECK: VASCULAR EVALUATION: There are atherosclerotic calcifications of the aortic arch. The great vessel origins are widely patent. There are mild atherosclerotic plaques along the bilateral common carotid arteries without significant stenosis. The carotid bulb regions demonstrate mild atherosclerotic calcifications and plaque. The internal and external carotid artery origins are widely patent. The cervical internal carotid arteries are widely patent. The right internal carotid artery caliber diameter is 5 mm and the left internal carotid artery caliber diameter is 5 mm in the distal internal carotid artery. There is no significant stenosis by NASCET criteria. Bilateral cervical segments of the vertebral arteries are widely patent. There is a developmental small caliber of the bilateral vertebral arteries. The source images show no evidence of dissections. If there is further concern, recommend conventional angiography for complete assessment. Any reported ICA stenosis directly references the distal internal carotid diameter as the denominator for stenosis measurement. NON-VASCULAR STRUCTURES: Degenerative changes are identified within the cervical spine. There is a partially visualized midline sternotomy. Dental hardware limits evaluation of the teeth. CTA HEAD ANTERIOR CIRCULATION: There are mild atherosclerotic calcifications of the cavernous segments of the internal carotid arteries without significant stenosis. The supraclinoid and petrous segments of the internal carotid arteries are widely patent. The A1 and A2 segments of the anterior cerebral arteries, middle cerebral arteries and branches are unremarkable. The anterior communicating artery is unremarkable. The posterior communicating arteries are also unremarkable. POSTERIOR CIRCULATION: The intracranial vertebral arteries are small in caliber and end as a posterior inferior cerebellar arteries. The basilar artery is not visualized and may be chronically occluded or developmentally absent. There is origin of the posterior cerebral arteries. The superior cerebellar and posterior cerebral arteries are unremarkable. There is likely retrograde filling of the superior cerebellar arteries. There are no large saccular aneurysms or arteriovenous malformations seen. No high-grade stenosis is identified. CONTRAST ENHANCED BRAIN IMAGES: The contrast-enhanced images of the head show no abnormally enhancing lesions. If there is further concern, recommend conventional angiography for complete assessment. IMPRESSION: Atherosclerotic calcifications of the aortic arch, carotid bulbs and cavernous segments of the internal carotid arteries. No significant stenosis of the internal carotid arteries by NASCET criteria. Developmental small caliber of the vertebral arteries which end as the posterior inferior cerebellar arteries. 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 origin of the posterior cerebral arteries with likely retrograde filling of the superior cerebellar arteries. No high-grade stenosis stenosis or large saccular aneurysm within the intracranial internal carotid or vertebrobasilar circulations. SL: JANE 10/16/2017 [facility] Tib Fib wo contrast CT Exam: Left Tib Fib wo contrast CT Clinical indication: I70.213 Atherosclerosis of mentasta arteries of extremities with intermittent claudication, bilateral legs. Left lower leg infection status post vein harvest for open heart surgery on 02/23/2017. Comparison: Left tibia fibula radiographs 04/13/2017 TECHNIQUE: Volumetric CT acquisition of the left tibia fibula without contrast. Axial, sagittal and coronal reconstructions. DLP: 2438.57 mGy-cm FINDINGS: The tibia and fibula appear intact. No acute fracture identified. No suspicious osseous lesion or osseous erosions. Partially visualized knee appears unremarkable. The ankle appears unremarkable. Postsurgical changes are present along the medial left lower leg consistent with history of vein graft harvest. There is focal elongated fluid collection in the proximal medial subcutaneous tissues with thick peripheral rim measuring 1.3 x 1.9 x 7.9 cm. Superficial soft tissue defect is present at the inferior margin of the fluid collection with adjacent scattered surgical clips. Diffuse soft tissue swelling is present most prominent distally. Small lobulated popliteal cyst is present measuring 1.2 x 0.4 cm. Mild global fatty atrophy in the musculature of the lower leg. Scattered atherosclerotic calcifications are present. IMPRESSION: 1. Postsurgical changes consistent with prior vein graft harvest with elongated fluid collection along the proximal medial lower leg as described above, possibly postoperative fluid collection versus abscess. 2. No acute osseous abnormality. SL: [id number] 04/24/2017 [facility] Tibia fibula series DX Examination: Left Tibia fibula series DX Clinical Indication: Left lower leg infection for one month; Comparison: None AP and lateral x-ray of the left tibia and fibula demonstrates no evidence of a fracture or subluxation.. The visualized knee and ankle joints demonstrate no gross abnormalities.. There are no proximal fractures identified. There are surgical clips within the medial soft tissue of the proximal left tibia. IMPRESSION: 1. No acute fracture or subluxation of the left tibia or fibula is identified. 04/13/2017 [facility] Ext Artery Single Level Bilat US Clinical Indication: - I70.213 Atherosclerosis of mentasta arteries of extremities with intermittent claudication, bilateral legs; left leg swelling. Comparison: None TECHNIQUE: Bilateral lower extremity arterial Doppler evaluation without pressures was performed with rock scale, color scale and Doppler waveforms evaluation. FINDINGS: RIGHT LOWER EXTREMITY: Right ankle brachial index 1.4. FLY of greater than 1.3 can be seen with calcified vessels. There are normal triphasic waveforms and peak systolic velocities of the right common femoral artery, superficial femoral artery, popliteal artery, posterior tibial artery, and dorsalis pedis artery. LEFT LOWER EXTREMITY: Left ankle-brachial index deferred by the speech pathology assistant due to the presence of superficial venous clot. There are normal triphasic waveforms and peak systolic velocities of the left common femoral artery, superficial femoral artery, popliteal artery, posterior tibial artery, and dorsalis pedis artery. There is no arterial Doppler evidence of significant peripheral arterial occlusive disease. Incidental note of superficial thrombus in the region of the left greater saphenous vein. Per history, patient also with history of vein removal. If there is further concern recommend CTA or magnetic resonance angiography for evaluation. IMPRESSION: 1. Multiphasic arterial flow in the bilateral lower extremities, without evidence of focal stenosis or occlusion. 2. Incidental note of echogenic superficial thrombus in the left greater saphenous vein. A copy of the radiologic report was faxed to the ordering physician's office with telephone confirmation at the time of dictation. SL: [id number] 04/13/2017 [facility] Arterial Doppler bilat US Clinical Indication: - I70.213 Atherosclerosis of mentasta arteries of extremities with intermittent claudication, bilateral legs; left leg swelling. Comparison: None TECHNIQUE: Bilateral lower extremity arterial Doppler evaluation without pressures was performed with rock scale, color scale and Doppler waveforms evaluation. FINDINGS: RIGHT LOWER EXTREMITY: Right ankle brachial index 1.4. FLY of greater than 1.3 can be seen with calcified vessels. There are normal triphasic waveforms and peak systolic velocities of the right common femoral artery, superficial femoral artery, popliteal artery, posterior tibial artery, and dorsalis pedis artery. LEFT LOWER EXTREMITY: Left ankle-brachial index deferred by the speech pathology assistant due to the presence of superficial venous clot. There are normal triphasic waveforms and peak systolic velocities of the left common femoral artery, superficial femoral artery, popliteal artery, posterior tibial artery, and dorsalis pedis artery. There is no arterial Doppler evidence of significant peripheral arterial occlusive disease. Incidental note of superficial thrombus in the region of the left greater saphenous vein. Per history, patient also with history of vein removal. If there is further concern recommend CTA or magnetic resonance angiography for evaluation. IMPRESSION: 1. Multiphasic arterial flow in the bilateral lower extremities, without evidence of focal stenosis or occlusion. 2. Incidental note of echogenic superficial thrombus in the left greater saphenous vein. A copy of the radiologic report was faxed to the ordering physician's office with telephone confirmation at the time of dictation. SL: [id number] 04/13/2017 [facility] Chest 1view DX EXAM: XR CHEST 1 VIEW DATE: 03/04/2017 9:05 AM UNDERWRITING ASSISTANT INDICATION: - dyspnea COMPARISON: 03/03/2017 TECHNIQUE: AP chest FINDINGS: Lines, tubes and hardware: None. Lungs and pleura: Patchy bilateral retrocardiac opacities may represent atelectasis, aspiration, or pneumonia. Trace bilateral pleural effusions are present. No definite pneumothorax is seen. Heart and mediastinum: The cardiomediastinal silhouette is stable. Bones: Changes of median sternotomy are noted. IMPRESSION: 1. Patchy bilateral retrocardiac opacities, possibly representing atelectasis, aspiration, or pneumonia. 2. Trace bilateral pleural effusions. 03/04/2017 [facility] Chest 1view DX EXAM: XR CHEST 1 VIEW DATE: 03/03/2017 3:00 AM UNDERWRITING ASSISTANT INDICATION: Shortness of Breath - SOB. FINDINGS: Comparison is made to yesterday. The cardiomediastinal silhouette and postoperative changes are stable. A patchy left retrocardiac opacity could be due to atelectasis and/or pneumonia. There is mild right perihilar subsegmental atelectasis. No pleural effusions are identified. Impression: No significant change. 03/03/2017 [facility] Chest 1view DX EXAM: XR CHEST 1 VIEW DATE: 03/02/2017 0451 hours INDICATION: Shortness of Breath COMPARISON: 03/01/2017. TECHNIQUE: AP chest, semierect. FINDINGS: Lines, tubes and hardware: Postsurgical changes are stable. Lungs and pleura: The lungs remain hypoinflated with vascular crowding and bibasilar subsegmental atelectasis. Bilateral retrocardiac opacities may be due to atelectasis, layering pleural effusion or consolidation. Pulmonary edema has mildly improved. Heart and mediastinum: The cardiomediastinal silhouette is unchanged. Bones: No acute change. IMPRESSION: 1. Mild improvement in pulmonary interstitial edema. 2. Stable appearance of bilateral retrocardiac opacity and hypoinflated lungs compared to the radiograph of 03/01/2017. 03/02/2017 [facility] Chest 1view DX EXAM: XR CHEST 1 VIEW DATE: 03/01/2017 3:00 AM UNDERWRITING ASSISTANT INDICATION: Shortness of Breath - SOB COMPARISON: 02/28/2017 TECHNIQUE: AP chest FINDINGS: Lines, tubes and hardware: Interval removal of the right IJ [place]-Oleg catheter seen with its sheath remaining in the right IJ. Lungs and pleura: Small bilateral pleural effusions remain. Bibasilar airspace opacities likely represent a combination of the effusions with atelectasis/or consolidations. Mild interstitial pulmonary edema remains. No definite pneumothorax is seen. Heart and mediastinum: The cardiomediastinal silhouette is stable. Bones: Changes of median sternotomy are noted. IMPRESSION: 1. Interval removal of the right IJ [place]-Oleg catheter with its sheath remaining in the right IJ. 2. Otherwise, no significant interval change compared to the prior study. 03/01/2017 [facility] Chest 1view DX EXAM: XR CHEST 1 VIEW DATE: 02/28/2017 INDICATION: Tube placement/removal/reposition - POST OP . Comparison is made with yesterday FINDINGS: Cardiomediastinal silhouette, postoperative changes and [place]-Oleg catheter are unchanged. Bilateral pleural effusions are unchanged. There is platelike atelectasis at the right lung base. There is an opacity at the left lung base obscuring the left hemidiaphragm and the silhouette of the descending thoracic aorta. This opacity may represent left pleural effusion with or without left lower lobe consolidation or atelectasis.. The upper lungs are clear IMPRESSION: Increasing left retrocardiac opacity. 02/28/2017 [facility] Chest 1view DX EXAM: XR CHEST 1 VIEW DATE: 02/27/2017 at 1245 hours INDICATION: - chest tube removal . Comparison is made with radiograph 9 hours earlier today FINDINGS: The mediastinal drain and a left-sided chest tube have been removed. Cardiomediastinal silhouette, sternotomy wires and [place]-Oleg catheter are unchanged. No pneumothorax is visualized however a supine or semierect radiograph is suboptimal for that determination. An erect film of the chest is necessary in order to exclude small pneumothoraces.. There is platelike atelectasis in the left lower lobe. The remainder of the lungs are clear IMPRESSION: 1. Left sided chest tube and mediastinal drains have been removed 2. No pneumothorax is visualized however a supine or semierect radiograph is suboptimal for that determination. An erect film of the chest is necessary in order to exclude small pneumothoraces.. 02/27/2017 [facility] Chest 1view DX EXAM: XR CHEST 1 VIEW DATE: 02/27/2017 INDICATION: Tube placement/removal/reposition - POST OP . Comparison is made with yesterday FINDINGS: Cardiomediastinal silhouette, postoperative changes and life support lines are unchanged. Costophrenic sulci are sharp without effusion. The lungs are clear except for some platelike atelectasis in the left lower lobe. IMPRESSION: No significant interval change when compared to prior radiograph. 02/27/2017 [facility] Chest 1view DX EXAM: XR CHEST 1 VIEW DATE: 02/26/2017 6:19 PM UNDERWRITING ASSISTANT INDICATION: - postion of mediastinal chest tube COMPARISON: 02/26/2017 chest radiograph at 1039 hours TECHNIQUE: AP chest FINDINGS: Lines, tubes and hardware: Interval removal of the right-sided chest tube. The [place]-Oleg catheter, mediastinal tube, left chest tube, and median sternotomy wires are unchanged. Lungs and pleura: No definite pneumothorax is identified. Mild bibasilar hazy opacities, more prominent on the left. Heart and mediastinum: The cardiomediastinal silhouette is stable. IMPRESSION: 1. Interval removal of a right-sided chest tube. 2. No radiographically evident pneumothorax is identified. UT SECTION: Chest 02/26/2017 [facility] Chest 1view DX EXAM: XR CHEST 1 VIEW DATE: 02/26/2017 10:21 AM UNDERWRITING ASSISTANT INDICATION: - s/p chest tube removal COMPARISON: 02/26/2017 TECHNIQUE: AP chest FINDINGS: Lines, tubes and hardware: The support lines and tubes are stable in position. Lungs and pleura: Bibasilar atelectasis is again noted. Underlying consolidation cannot be entirely excluded. The costophrenic sulci are sharp. No definite pneumothorax is seen. Heart and mediastinum: The cardiomediastinal silhouette is stable. Bones: Changes of median sternotomy are noted. IMPRESSION: 1. No significant interval change compared to the prior study. 02/26/2017 [facility] Chest 1view DX EXAM: XR CHEST 1 VIEW DATE: 02/26/2017 7:56 AM UNDERWRITING ASSISTANT INDICATION: - pulled chest tube COMPARISON: Semierect AP chest radiograph earlier the same day at 4:28 AM TECHNIQUE: AP chest, semierect FINDINGS: Since the prior exam, one of the mediastinal drains has been removed. There is now a single mediastinal drain remaining. The remaining life-support lines and tubes are unchanged. Lung volumes are low which produces platelike atelectasis in the lung bases. Superimposed consolidation in the left lung base cannot be excluded. There also appears to be a small left-sided pleural effusion which obscures the costophrenic sulcus. The upper lungs are clear. The cardiac mediastinal silhouette and osseous structures are unchanged. IMPRESSION: Interval removal of one of the mediastinal drains. Remaining findings are unchanged. 02/26/2017 [facility] Chest 1view DX EXAM: XR CHEST 1 VIEW DATE: 02/26/2017 3:00 AM UNDERWRITING ASSISTANT INDICATION: Tube placement/removal/reposition - POST OP COMPARISON: 02/25/2017 TECHNIQUE: AP chest FINDINGS: Lines, tubes and hardware: Interval removal of the esophageal scope is noted. The remaining support lines and tubes are grossly stable in position. Lungs and pleura: Mild bibasilar atelectasis is seen. The costophrenic sulci are sharp. No definite pneumothorax is identified within the limitations of this semierect radiograph. Heart and mediastinum: The cardiomediastinal silhouette is stable. Bones: Changes of median sternotomy are noted. IMPRESSION: 1. Mild bibasilar atelectasis. Underlying consolidation cannot be entirely excluded. 2. Postsurgical changes of the chest with interval removal of esophageal scope with remaining support lines and tubes grossly stable in position. 02/26/2017 [facility] Abdomen AP DX EXAM: XR ABDOMEN 1 VIEW DATE: 02/25/2017 at 2200 hours INDICATION: - for NG tube placement ADDITIONAL INFORMATION: None. COMPARISON: 02/26/2017 at 0428 hours TECHNIQUE: Limited AP view of the abdomen for tube placement assessment. Number of images: 2 FINDINGS: Transesophageal feeding tube (tip): None present Transesophageal suction tube (sidehole): Proximal stomach near GE junction. Advancement recommended. Other tubes, lines and hardware: * Bilateral single chest tubes. * Paired mediastinal drains. * Sternotomy wires. * EKG leads. * Partially visualized [place]-Oleg catheter. Other: No other changes. IMPRESSION: 1. Tube positions as above. 02/25/2017 [facility] Chest 2 views DX EXAM: XR CHEST 1 VIEW DATE: 02/25/2017 4:49 PM UNDERWRITING ASSISTANT INDICATION: protocol closure - protocol closure COMPARISON: 02/25/2017 TECHNIQUE: AP chest FINDINGS/ IMPRESSION: Compared to the prior examination there is redemonstration of life support lines including a [place]-Oleg catheter with tip in the main pulmonary artery. An intraaortic balloon pump catheter is seen with tip in the mid descending thoracic aorta. There are 2 new right-sided chest tubes and one mediastinal drain. Metallic median sternotomy is sutures are seen. Endotracheal tube remains tip approximate 4 cm above the charo. A small left-sided pleural effusion is suggested. Moderate cardiomegaly is redemonstrated. There is redemonstration of 2 left-sided chest tubes. There is no pneumothorax seen. 02/25/2017 [facility] Chest 1 v for Placement DX Chest one view, 02/25/2017 at 12:18 PM HISTORY: 61-year-old man with line placement. FINDINGS: Comparison is made to February 25 at 12:13 PM. The intra-aortic balloon pump has been advanced, now with the tip in the upper aspect of the descending thoracic aorta. The tip of the IABP is located 6.4 cm from the top of the aortic arch. Other life-support lines and tubes remain in place. The cardiomediastinal silhouette is stable. There is a left retrocardiac opacity which may be due to a layering left pleural effusion and/or a left lower lobe airspace opacity such as pneumonia or atelectasis. There is platelike atelectasis in both lung bases. No definite pleural effusions. IMPRESSION: Interval advancement of the IABP. Otherwise, no significant interval change. 02/25/2017 [facility] Chest 1 v for Placement DX Chest one view, 02/25/2017 at 12:13 PM HISTORY: 61-year-old man with line placement. FINDINGS: Comparison is made to February 25 at 11:13 AM. The endotracheal balloon pump has been slightly advanced, but still with the tip of the IABP in the lower aspect of the descending thoracic aorta. Subsequent radiograph shows it has since been advanced. Other life-support lines and tubes remain in place. The cardiomediastinal silhouette is stable. There is a left retrocardiac opacity which may be due to a layering left pleural effusion and/or a left lower lobe airspace opacity such as pneumonia or atelectasis. There is platelike atelectasis in the right lower lobe. No pleural effusions identified. IMPRESSION: The IABP has been slightly advanced but tip still overlies the distal aspect of the descending thoracic aorta. A subsequent radiograph shows it has since been advanced. 02/25/2017 [facility] Chest 1view DX EXAM: XR CHEST 1 VIEW DATE: 02/25/2017 10:06 AM UNDERWRITING ASSISTANT INDICATION: - preop COMPARISON: 02/24/2017 TECHNIQUE: AP chest FINDINGS: Lines, tubes and hardware: Slight interval retraction of the right IJ [place]-Oleg catheter seen with its tip in the right main pulmonary artery. Interval retraction of the intra-aortic balloon pump is seen with its superior tip near the level of the hemidiaphragms. Advancement by approximately 13 cm is recommended. The endotracheal tube, left-sided thoracostomy tube, mediastinal drainage tubes are stable in position. Lungs and pleura: Mild bibasilar atelectasis is seen. The costophrenic sulci are sharp. No definite pneumothorax is identified. Heart and mediastinum: The cardiomediastinal silhouette is stable. Bones: The osseous structures are unchanged. IMPRESSION: 1. Interval retraction of the intra-aortic balloon pump with its tip at the level of the hemidiaphragms. Advancement by 13 cm is recommended. 2. Slight interval retraction of the right IJ [place]-Oleg catheter with its tip projecting over the right main coronary artery. 3. Mild bibasilar atelectasis. 02/25/2017 [facility] Chest 1view DX EXAM: XR CHEST 1 VIEW DATE: 02/24/2017 INDICATION: Tube placement/removal/reposition - POST OP . Comparison is made with yesterday FINDINGS: Cardiomediastinal silhouette and life-support lines are unchanged. Small left pleural effusion is unchanged. Right costophrenic sulcus is sharp. No pneumothorax is visualized however a supine or semierect radiograph is suboptimal for that determination. An erect film of the chest is necessary in order to exclude small pneumothoraces.. There is an opacity at the left lung base obscuring the left hemidiaphragm and the silhouette of the descending thoracic aorta. This opacity may represent left pleural effusion with or without left lower lobe consolidation or atelectasis.. The right lung is clear IMPRESSION: No significant interval change when compared to prior radiograph. 02/24/2017 [facility] Chest 1view DX EXAM: XR CHEST 1 VIEW DATE: 02/23/2017 6:24 PM UNDERWRITING ASSISTANT INDICATION: - Post op COMPARISON: 02/23/2017 at 1725 hours TECHNIQUE: AP chest IMPRESSION: 1. Lines and tubes are stable compared to previous study. 2. Cardiomediastinal silhouette is enlarged, unchanged. 3. Diminished lung volumes bilaterally with bibasilar subsegmental platelike atelectatic changes and prominent lung vasculature. 4. Small amount of left pleural effusion is noted. 5. Osseous structures are stable. 02/23/2017 [facility] Chest 2 views DX EXAM: XR CHEST 2 views DATE: 02/23/2017 5:20 PM UNDERWRITING ASSISTANT INDICATION: INCORRECT INSTRUMENT COUNT/TOO MANY INSTRUMENTS/EXTRA SCISSORS AND CHEST TUBE PASSER - INCORRECT INSTRUMENT COUNT/TOO MANY INSTRUMENTS/EXTRA SCISSORS AND CHEST TUBE PASSER COMPARISON: 02/22/2017 TECHNIQUE: AP and Lateral chest radiographs IMPRESSION: 1. Post sternotomy surgical changes with interval placement of endotracheal tube with the tip terminates 4.3 cm above the charo. Interval placement of right IJV [place]-Oleg catheter with tip projects over the main pulmonary artery. Interval placement of 2 mediastinal drain NG tube. Interval placement of left thoracostomy tube. Interval placement of intra-aortic balloon pump. Epicardial pacing wires are seen in the field. 2. Cardiomediastinal silhouette is enlarged, unchanged. 3. Diminished lung volumes bilaterally with bibasilar subsegmental platelike atelectatic changes and prominent lung vasculature. 4. Small amount of left pleural effusion is noted. 02/23/2017 [facility] Chest 1view DX EXAM: XR CHEST 1 VIEW DATE: 02/22/2017 1:31 PM UNDERWRITING ASSISTANT INDICATION: - cough. FINDINGS: Comparison is made to February 20. The cardiomediastinal silhouette has not significantly changed. The cardiac silhouette is prominent, and the aorta is ectatic and tortuous. Small bilateral pleural effusions have decreased. Bibasilar airspace opacities have improved. The upper lungs are clear. IMPRESSION: 1. Bilateral lower lobe airspace opacities have improved since February 20. This can indicate improvement of atelectasis, aspiration and/or pneumonia. 2. Small bilateral pleural effusions have decreased. 02/22/2017 [facility] Cardiac Function Complete MRI EXAM: MR HEART WITHOUT AND WITH CONTRAST DATE: 02/20/2017 1:58 PM UNDERWRITING ASSISTANT INDICATION: NSTEMI, Coronary artery disease. ADDITIONAL INFORMATION: 3 vessel CAD. COMPARISON: None. TECHNIQUE: Multiplanar, multisequence MR images of the heart were obtained before and after administration of intravenous contrast. The study was transferred to work station where analysis of cardiac function was performed. IV contrast: 20 mL MultiHance Heart rate=70 BPM. FINDINGS: Cardiac chambers: Normal. Myocardium: Thickness: Normal. Edema (TIR): Normal. Perfusion: Normal. Delayed enhancement: Absent. LV wall motion: Global LV hypokinesis. Myocardial Function (normal ranges below): Ejection fraction: 32.5% Stroke-volume: 72.3 mL Cardiac output: 5.1 liters/min End-diastolic volume: 223 mL End-systolic volume: 150 mL Normal ranges: Normal ranges for male 40-65 years old: Ejection fraction: 66+/-4 Stroke-volume: 96+/-26 End-diastolic volume: 146+/-38 End-systolic volume: 49+/-15 LV Mass: 154+/-27 Valves: Aortic valve: Turbulent flow is seen above the aortic valve during systole suggestive of aortic stenosis and there is mild aortic regurgitation during diastole. Mitral valve: Normal. Pulmonic valve: Normal. Tricuspid valve: Normal. Large vessels: Aorta and branches: The ascending aorta is dilated. Ascending aortic dimension (at level of pulmonary artery): 4.7 cm. Branching pattern: Conventional. Aortic outflow (q-flow) measurements: Stroke Volume: 84 mL Forward Flow: 93 mL Backward Flow: 8.8 mL Regurgitant Fraction: 9.5% Main pulmonary artery: Patent. MPA caliber: 3.3 cm. Coronary arteries: Normal. Pericardium: Normal. Extracardiac: Moderate bilateral pleural effusion. Subcentimeter hepatic cysts in segments 2 and 7. A 3.7cm exophytic cyst from the left kidney upper pole has low signal on T2-weighted images, likely due to hemorrhage or proteinaceous content. IMPRESSION: 1. Global left ventricular hypokinesis with low ejection fraction, without myocardial edema, scar or delayed enhancement, suggestive of ischemic heart disease with hibernating myocardium. 2. Mild aortic stenosis and mild aortic regurgitation. 3. Dilated ascending aorta. 4. Moderate bilateral pleural effusions. Reference: JMRI. 2002;17(3):323-9. Normal human left and right ventricular dimensions for MRI as assessed by turbo gradient echo and steady-state free precession imaging sequences. Alex Broussard et. al. 02/21/2017 [facility] Chest 1view DX EXAM: XR CHEST 1 VIEW DATE: 02/20/2017 6:19 AM UNDERWRITING ASSISTANT INDICATION: Heart failure - CAP COMPARISON: 02/18/2017 TECHNIQUE: AP chest IMPRESSION: 1. Cardiomediastinal silhouette is upper limit of normal size. 2. Bilateral yidkl-oq-mqtizylv pleural effusions with bibasilar subsegmental atelectatic changes. 3. Osseous structures are stable. 02/20/2017 [facility] Chest 2 views DX Patient Name: ANKUR WISE : 1955; Age: 61 years y/o Male MR: [id number] Study: CHEST 2 VIEWS DX 02/18/2017 1:04 PM UNDERWRITING ASSISTANT Ordering Physician: Perry Read MD Clinical Indication: - pneumonia; shortness of breath and chest pain Comparison: 02/15/2017 COMMENT: 2 views the chest are compared to exam of 3 days ago demonstrating interval development of bibasilar atelectasis and small pleural effusions. Underlying pneumonia may well now be present in the posterior lower lobe costophrenic sulci bilaterally. Upper lungs are clear. Heart enlarged and aorta tortuous. Normal mediastinum. IMPRESSION: Bibasilar atelectasis and consolidation with small bilateral pleural effusions progressed since 02/15/2017. Upper lungs are clear. SL: ROSA ISELA 02/18/2017 [facility] Carotid artery Doppler bilat US Clinical Indication: - pre op for CABG; Comparison: None TECHNIQUE: Rock-scale, color Doppler and spectral Doppler of the carotid arteries was performed. Any reported ICA stenoses indirectly reference the distal internal carotid diameter as the denominator for the stenosis measurement, utilizing consensus panel criteria. FINDINGS: RIGHT: No significant plaque ICA PSV 62.5 cm/sec CCA PSV 33.6 cm/sec ICA/CCA ratio 1.86 Vertebral flow is antegrade. External carotid artery is patent. LEFT: No significant plaque ICA PSV 62.9 cm/sec CCA PSV 36.9 cm/sec ICA/CCA ratio 1.7 Vertebral flow is antegrade. External carotid artery is patent. IMPRESSION: 1. RIGHT: ICA stenosis <50 % by velocity criteria. 2. LEFT: ICA stenosis <50 % by velocity criteria. Consensus panel Doppler US criteria for diagnosis of ICA stenosis: Stenosis (%) ICA PSV (cm/sec) ICA/CCA ratio <50 <125 <2.0 50-69 125-230 2.0-4.0 >70 but less than >230 >4.0 near occlusion Near occlusion High, low, or Variable undetectable SL: WR1-M 02/18/2017 [facility] Chest 1view DX Clinical Indication: chest pain Comparison: None FINDINGS: The frontal chest radiograph shows normal lung volumes with small bilateral pleural effusions and hazy opacity within the left lung base. The cardiomediastinal contours are normal for the age of the patient with aortic tortuosity. There are degenerative changes in the spine and shoulders. IMPRESSION: Left lower lobe pneumonia and small bilateral pleural effusions. SL: [id number] 02/15/2017 [facility] Consultation Notes No Data Provided for This Section Discharge Summaries No Data Provided for This Section History and Physicals No Data Provided for This Section Vital Signs Vital Sign Value Date Comments Source Respitory Rate 15 10/17/2017 [facility] Systolic (mm Hg) 124 10/17/2017 [facility] Diastolic (mm Hg) 86 10/17/2017 [facility] Heart Rate 102 10/17/2017 [facility] Temperature Oral (F) 97.7 F 10/17/2017 [facility] Systolic (mm Hg) 125 10/17/2017 [facility] Diastolic (mm Hg) 79 10/17/2017 [facility] Heart Rate 92 10/17/2017 [facility] Respitory Rate 15 10/17/2017 [facility] Temperature Oral (F) 99 F 10/17/2017 [facility] Temperature Oral (F) 98.7 F 10/17/2017 [facility] Heart Rate 91 10/17/2017 [facility] Respitory Rate 18 10/17/2017 [facility] Systolic (mm Hg) 127 10/17/2017 [facility] Diastolic (mm Hg) 79 10/17/2017 [facility] Weight 100.909 10/16/2017 [facility] Height 193.04 cm 10/16/2017 [facility] BMI Calculated 27.08 10/16/2017 [facility] Weight 113.636 10/16/2017 [facility] BMI Calculated 33.05 10/16/2017 [facility] Height 185.42 cm 10/16/2017 [facility] BMI Calculated 30.98 08/31/2017 [facility] Weight 115.455 08/31/2017 [facility] Height 193.04 cm 08/31/2017 [facility] Height 193.04 cm 08/19/2017 [facility] Weight 100 08/19/2017 [facility] BMI Calculated 26.84 08/19/2017 [facility] Respitory Rate 18 08/19/2017 [facility] Heart Rate 94 08/19/2017 [facility] Systolic (mm Hg) 82 08/19/2017 [facility] Diastolic (mm Hg) 60 08/19/2017 [facility] BMI Calculated 26.47 06/03/2017 [facility] Height 193.04 cm 06/03/2017 [facility] Weight 98.636 06/03/2017 [facility] Systolic (mm Hg) 131 06/03/2017 [facility] Diastolic (mm Hg) 84 06/03/2017 [facility] Heart Rate 89 06/03/2017 [facility] Respitory Rate 18 06/03/2017 [facility] Height 193.04 cm 06/03/2017 [facility] BMI Calculated 26.47 06/03/2017 [facility] Weight 98.636 06/03/2017 [facility] Weight 99.545 05/20/2017 [facility] BMI Calculated 26.71 05/20/2017 [facility] Height 193.04 cm 05/20/2017 [facility] Systolic (mm Hg) 140 05/20/2017 [facility] Diastolic (mm Hg) 88 05/20/2017 [facility] Respitory Rate 18 05/20/2017 [facility] Heart Rate 72 05/20/2017 [facility] BMI Calculated 25.86 04/13/2017 [facility] Systolic (mm Hg) 108 04/13/2017 [facility] Diastolic (mm Hg) 70 04/13/2017 [facility] Heart Rate 84 04/13/2017 [facility] Temperature Oral (F) 96.4 F 04/13/2017 [facility] Respitory Rate 18 04/13/2017 [facility] Weight 96.364 04/13/2017 [facility] Height 193.04 cm 04/13/2017 [facility] Height 193.04 cm 04/05/2017 [facility] Heart Rate 80 04/05/2017 [facility] Temperature Oral (F) 96.8 F 04/05/2017 [facility] Respitory Rate 20 04/05/2017 [facility] Systolic (mm Hg) 158 04/05/2017 [facility] Diastolic (mm Hg) 90 04/05/2017 [facility] Temperature Oral (F) 97.0 F 03/17/2017 [facility] Heart Rate 101 03/17/2017 [facility] Systolic (mm Hg) 126 03/17/2017 [facility] Diastolic (mm Hg) 80 03/17/2017 [facility] BMI Calculated 25.49 03/17/2017 [facility] Weight 95 03/17/2017 [facility] Height 193.04 cm 03/17/2017 [facility] Temperature Oral (F) 97.0 F 03/17/2017 [facility] Systolic (mm Hg) 126 03/17/2017 [facility] Diastolic (mm Hg) 80 03/17/2017 [facility] Respitory Rate 20 03/17/2017 [facility] Heart Rate 101 03/17/2017 [facility] Systolic (mm Hg) 134 03/07/2017 [facility] Diastolic (mm Hg) 89 03/07/2017 [facility] Respitory Rate 18 03/07/2017 [facility] Respitory Rate 19 03/07/2017 [facility] Systolic (mm Hg) 137 03/07/2017 [facility] Diastolic (mm Hg) 76 03/07/2017 [facility] Systolic (mm Hg) 114 03/07/2017 [facility] Diastolic (mm Hg) 72 03/07/2017 [facility] Temperature Oral (F) 98 F 03/07/2017 [facility] Respitory Rate 17 03/07/2017 [facility] Temperature Oral (F) 97.6 F 03/07/2017 [facility] Temperature Oral (F) 96.8 F 03/07/2017 [facility] Height 193.04 cm 02/26/2017 [facility] Height 193.04 cm 02/26/2017 [facility] Height 193.04 cm 02/26/2017 [facility] Heart Rate 73 02/23/2017 [facility] Heart Rate 66 02/23/2017 [facility] Heart Rate 73 02/23/2017 [facility] Weight 100.909 02/20/2017 [facility] BMI Calculated 27.08 02/20/2017 [facility] Temperature Oral (F) 98 F 02/20/2017 [facility] Heart Rate 73 02/20/2017 [facility] Systolic (mm Hg) 101 02/20/2017 [facility] Diastolic (mm Hg) 66 02/20/2017 [facility] Respitory Rate 18 02/20/2017 [facility] Systolic (mm Hg) 101 02/20/2017 [facility] Diastolic (mm Hg) 67 02/20/2017 [facility] Respitory Rate 18 02/20/2017 [facility] Temperature Oral (F) 97.7 F 02/20/2017 [facility] Heart Rate 75 02/20/2017 [facility] Heart Rate 77 02/19/2017 [facility] Respitory Rate 18 02/19/2017 [facility] Systolic (mm Hg) 101 02/19/2017 [facility] Diastolic (mm Hg) 67 02/19/2017 [facility] Temperature Oral (F) 97.6 F 02/19/2017 [facility] Weight 102.5 02/19/2017 [facility] Height 193.04 cm 02/16/2017 [facility] BMI Calculated 29.76 02/16/2017 [facility] Weight 110.909 02/16/2017 [facility] Weight 97.727 02/15/2017 [facility] Height 193.04 cm 02/15/2017 [facility] BMI Calculated 26.23 02/15/2017 [facility] Encounters Location Location Details Encounter Type Encounter Number Reason For Visit Attending Provider ADM Date DC Date Status Source [facility] Inpatient [id number] Perry Jacek 02/15/2017 02/19/2017 [facility] Inpatient [id number] Adam Roseanne 02/20/2017 03/07/2017 [facility] Outpatient [id number] Mauricio Puentes 03/17/2017 03/18/2017 [facility] Outpatient [id number] Nicky Marte 03/25/2017 03/25/2017 [facility] Outpatient [id number] Adam Roseanne 04/05/2017 04/06/2017 [facility] Outpatient [id number] Adam Roseanne 04/05/2017 04/06/2017 [facility] [id number] Adam Roseanne 04/13/2017 04/14/2017 [facility] [place] Outpatient [id number] Contreras Baires 04/13/2017 04/14/2017 [facility] [place] [facility] [id number] Adam Roseanne 04/16/2017 04/16/2017 [facility] [place] [facility] [id number] Adam Roseanne 04/24/2017 04/25/2017 [facility] Outpatient [id number] Adam Roseanne 05/20/2017 05/21/2017 [facility] Outpatient [id number] Adam Roseanne 06/03/2017 06/04/2017 [facility] Outpatient [id number] Adam Roseanne 06/03/2017 06/04/2017 [facility] Outpatient [id number] Adam Roseanne 08/19/2017 08/20/2017 [facility] Outpatient [id number] Adam Roseanne 08/31/2017 09/01/2017 [facility] Observation [id number] Alfonzo Triplettgrazyna 10/16/2017 10/17/2017 [facility] Outpatient [id number] Adam Cronin 11/08/2017 11/08/2017 [facility] Procedures Procedure Code Date Perfomer Comments Source CABG x 5 - Coronary artery bypass grafts x 5 [id number] 02/23/2017 [facility] [place] CABG x 5 - Coronary artery bypass grafts x 5 [id number] 02/23/2017 [facility] CABG x 5 - Coronary artery bypass grafts x 5 [id number] 02/23/2017 [facility] Biliary lithotripsy [id number] [facility] Partial resection of colon [id number] [facility] PCL - Percutaneous lithotripsy of renal calculus [id number] [facility] Placement of stent in cardiac conduit [id number] [facility] Biliary lithotripsy [id number] [facility] Partial resection of colon [id number] [facility] PCL - Percutaneous lithotripsy of renal calculus [id number] [facility] Placement of stent in cardiac conduit [id number] [facility] Biliary lithotripsy [id number] [facility] of [id number] Percutaneous lithotripsy of renal calculus [id number] [facility] Placement of stent in cardiac conduit [id number] [facility] Biliary lithotripsy [id number] [facility] [place] Partial resection of colon [id number] [facility] [place] PCL - Percutaneous lithotripsy of renal calculus [id number] [facility] [place] Placement of stent in cardiac conduit [id number] [facility] [place] Assessment and Plan Assessment and Plan Date Source Extracted from:Title: Clinical Document Author: Liset Cronin MD Date: 10/17/17 Admit date: 10/16/2017 Discharge Date: 10/17/2017 Disposition: DIscharge home Discharge Diagnosis: Discharge Medications ( Please see home medications reconciliation ). Consulting Physicians: Adam Cronin MD Office: Service: Cardiology . Discharge Instructions: (no discharge order found) (no discharge order found) (no discharge order found) Vital Signs (last 24 hrs) Last Charted Temp Oral 99 DegF (OCT 17 07:38) Heart Rate Peripheral 92 bpm (OCT 17 07:38) Resp Rate 15 BRMIN (OCT 17 07:38) SBP 125 mmHg (OCT 17 07:38) DBP 79 mmHg (OCT 17 07:38) SpO2 97 % (OCT 17 07:38) Imaging Studies (last 36 hours) Brain wo contrast MRI 10/16/2017 12:32 Impression: 1. No acute intracranial abnormality. 2. Mild atrophy and minimal chronic microvascular ischemic changes. 3. Benign inferior medial left posterior fossa arachnoid cyst. SL: CL76-M Chest 1view DX 10/16/2017 01:38 Impression: No acute cardiopulmonary abnormality. SL: WR2-M Brain/Neck CTA 10/16/2017 01:36 Impression: Atherosclerotic calcifications of the aortic arch, carotid bulbs and cavernous segments of the internal carotid arteries. No significant stenosis of the internal carotid arteries by NASCET criteria. Developmental small caliber of the vertebral arteries which end as the posterior inferior cerebellar arteries. 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 origin of the posterior cerebral arteries with likely retrograde filling of the superior cerebellar arteries. No high-grade stenosis stenosis or large saccular aneurysm within the intracranial internal carotid or vertebrobasilar circulations. SL: JV-Bertrand Brain wo contrast CT 10/16/2017 01:15 Impression: No acute intracranial hemorrhage or mass effect. No CT evidence of acute territorial infarction. Mild chronic microvascular ischemic changes. SL: KPATEL-M (no surgical procedures documented) Hospital course: " 62 year old man with PMH significant for hypertension, type 2 diabetes [id number]-huhsxcdoj, CAD status post CABG earlier this year, systolic CHF with EF of 35%, history of CVA in 2009 the presents with disbalance and slurred speech, admitted on 10/15/2017 ". - CT head --> Mary cute changes. - CTA Brain --> Atherosclerotic calcifications of the aortic arch, carotid bulbs and cavernous segments of the internal carotid arteries. No significant stenosis of the internal carotid arteries by NASCET criteria. 2 D ECHO: 1) The LV ejection fraction is estimated at 45%-50%. This has significantly improved from his LVEF in 02/2017 and 05/2017 post CABG. 2) The left ventricular chamber size is normal. 3) Abnormal left ventricular diastolic function is observed. 4) Abnormal left ventricular diastolic filling is observed, consistent with impaired LV relaxation. " The pt admitted with syncope found to have Orthostatic hypotension, Antihypertensive medications stopped BP imrpoved, ECHO showed significant imrpovement from last time, he will follow up with cardiology for Holter as out pt, Neurology cleared will keep on Aspirin and Plavix, discharge din stable condition ". - TIA. --> Plavix 75mg Po QD and Aspirin 81mg Po QD. --> 2 D ECHO noted. --> Follow up neurology, cleared for discharge and follow up with neuorlogy as out pt. - Syncope, resolved. - Orthostaic hypotension, improved. --> Follwo up Dr Roseanne baptiste appreciated, will need holetr monitoring as outpt. --> Orthostatic improved, No antihypertensive medications as per cardiology, fall risk precautions. --> Stop Carvedilol and Ivabradine. - Acute kidney injury/CKD stage III. --> Cr trends down, follow up with nephrolgy as out pt. --> Avoid nephrotoxic medications. - Hyperlipidemia. --> LDL 113, Lipitor 40mg Po QD. - Chronic Systolic CHF.--> Will keep same home medications. - Hypo Mag repalaced. - Obsesity with Diabetes Mellitus. --> HB1Ac 7.8, cousnelled about diet and exrcise. - Dispo --> Dischareg home and follow up Follow up with cardiology. Discharge time close to 30 minutes. Extracted from:Title: Progress Note Author: Adam Cronin MD Date: 10/17/17 Acute arterial ischemic stroke, vertebrobasilar, brainstem Continue aspirin and Plavix per neurology will hold beta-denae and corlanor and allow permissive hypertension Rechecked orthostatics offmetoprolol and Corlanor. Positive but improved. No longer on any antihypertensive meds PT and OT per neurology Continue current dose of statin Coronary artery disease Status post 5 vessel CABG Continue aspirin and Plavix Discontinue metoprolol as above Continue statin as above Congestive heart failure LVEF improved to 45-50% Compensated on exam No indication for diuretics currently No indication for ICD anymore No eventsnoted on telemetry Ok to be discharged from CV perspective. Will need 14 day holter monitor as o/p. Can be arranged from my office. Follow up in 3-4 weeks Extracted from:Title: Consult Note Author: Adam Cronin MD Date: 10/16/17 Acute arterial ischemic stroke, vertebrobasilar, brainstem Continue aspirin and Plavix per neurology will hold beta-denae and corlanor and allow permissive hypertension Monitor blood pressure overnight Recheck orthostatics offmetoprolol and Corlanor in am PT and OT per neurology Continue current dose of statin MRI pending Coronary artery disease Status post 5 vessel CABG Continue aspirin and Plavix Discontinue metoprolol as above Continue statin as above Congestive heart failure LVEF improved to 45-50% Compensated on exam No indication for diuretics currently No indication for ICD anymore No eventsnoted on telemetry Addendum by Adam Cronin MD on 10/16/2017 17:47 CDT Recommend 14 day holter monitor as o/p to assess for a fib Extracted from:Title: General Admission H&P * Author: Alfonzo Hernandez MD PHD Date: 10/16/17 Impression and Plan Patient is a 62-year-old man with a past medical history significant for hypertension, type 2 diabetes [id number], CAD status post CABG earlier this year, systolic CHF with EF of 35%, history of CVA in 2008 the presents with disbalance and slurred speech. Patient was in his usual state of health until earlier in the day when he fell twice at home, patient is on certain about the circumstances of the fall, he states that first time his legs buckled and he fell forward and the second time he is not sure if he passed out but he found himself on the floor crawling. He also had some slurred speech and numbness and drooping of the right face. In the emergency room his speech has improved. Per discussion with ED physician patient was not a TPA candidate due to low NIH scale and time of the symptom onset. TIA, will monitor patient on telemetry, check TSH, B12, folate, follow-up with neurology recommendations Suspected syncope, will obtain orthostatic vitals, echocardiogram, trend troponins, consultation branch credit counselor Dr. Roseanne Figueroa, as above, PT eval Dehydration due to decreased fluid intake, rehydrate gently given Acute kidney injury on CKD3 rehydrate gently CHF, systolic with EF of less than 35%, not in acute exacerbation Hypertension, permissive hypertension for now, will follow up with neurology recommendations Type 2 diabetes szp-enwboje-cfyzmsczw, check hemoglobin A1c Prophylaxis, SCDs 10/17/2017 [facility] Extracted from:Title: HF Surgery Author: Jeronimo Sanchez Date: 02/25/17 ADVANCED HEART FAILURE/CV SURGERY BRIEF OP NOTE Preop Diagnosis: Coronary artery disease with IABP, delayed primary closure Postop Diagnosis: same Procedures: Mediastinal exploration, washout, and definitive closure + R-sided pleural tube thoracostomy Surgeon: Jeronimo Mcadams MD Anesthesiologist: Duke Mcmillan MD Anesthesia: General Antibiotics: On scheduled vanc and cefepime Transfusions: 1u pRBC Cell Saver: None Urine Output: 45 cc Drains: Chest tubes AM, PM, LP left in situ + RP added Findings: 600cc of serosanguinous fluid from left pleural space. Seen on intraop SHARRI EF 40%, 2+ AR Complications: none Specimens: None Dictation by Dr. Mcadams Disposition: [facility] HFICU in stable condition, intubated Extracted from:Title: UTPCCM Consult note Author: Rosey Rodriguez MD Date: 02/23/17 Impression and Plan Problem List: Multivessel CAD s/p 5vessel CABG Cardiogenic shock (on pressors and balloon pump) Post op mechanical ventilation Post op critical care Chest tube management Patially open chest post op Lactic acidosis Acute blood loss anemia Post op leukocytosis DM Mr. Wise is a 61 year old man with PMH of DM, CHF (previous EF 20-25%, grade I diastolic function), HLD, HTN, who was sent here as a high risk CABG from outside hospital, who is now s/p 5 vessel CABG. Prolonged surgery with concern for vasoplegia, patient had EBL of 4L, was given 4 of PRBC,4 of FFP, 4 cell saver, 2 of platelets and 4L of crystalloid. He was given methylene blue and hydrocortisone for concerns of vasoplegia intra op. He is currently on 12 of epi and 2 of levophed mg/min on arrival to [facility]. Neuro/Psych: - Intubated sedated, keep on fentanyl gtt while intubated CV: -Currently on 1:2 balloon pump, epi of 12mcg/min, levophed at 2 mcg/min -Partially open chest, plan to retake to OR later -CT management per HF Resp: - Chest xray pending, post op gas (patient had been on portable vent--7., vent changes made) - Will continue to wean as tolerated, no plans for extubation overnight given open chest - On PFTs with moderate severe restrictive lung disease, will continue to monitor for now GI/Nutrition: - NPO - Protonix ppx Renal/Electrolytes: Severe lactic acidosis likely 2/2 to hypoperfusion, however, will get renal on board for possible CRRT - Strict I's/O's, monitor urine output. Good UOP intra op - On electrolyte replacement protocol Endo: Check Hgb A1c - Insulin drip to keep FSBG 110-180. Heme/Onc: - Given several products intraop, heme on board, recommend: CBC and DIC stat then Q 4. Keep Hb > 8, INR < 1.5, Fibrinogen > 200 and Platelet > 100 - Monitor for bleeding, coagulopathies, send post op labs then AM labs - Transfuse as needed ID: - Recommend check viral panel, patient was coughing and feeling short of breath prior to arrival, - Monitor for s/s of infection - SCIP abx for now Msk/Skin/Deconditioned: - Cont wound care and sacral decubitus prevention - Consult PT/OT when ready Prophylaxis: - DVT ppx: SCD/TEDs - GI ppx: protonix Vascular/ Access: - CVC: logan COLON cath--pressor requirements, hemodynamic monitoring - Chest tubes: 3 chest tubes - Art-line: right radial for BP monitoring - Arvizu: strict i/o, immobility Code status: Full Disposition: 5-HVI Critical care performed (35 minutes). Time is exclusive of separately billable procedures. Time includes: direct patient care, patient reassessment, coordination of patient care, interpretation of data (laboratory data, pulse oximetry, arterial blood gases and chest xrays), availability on ICU to care for patient and documentation. Quality Bundle: Lines and tubes reviewed. Indicated for access, blood products administration, vasopressor administration, and hemodynamic monitoring, Furthermore, arvizu is indicated to prevent skin breakdown along with measuring of is/os. Extracted from:Title: Heart Failure Admission H&P * Author: Martha Douglas MD Date: 02/20/17 Impression and Plan Mr. Applebe is a 61 yo M with PMHX HTN, HLD who was transferred to [facility] for CABG in the setting of NSTEMI. # NSTEMI 3V CAD Has good targets. Came for CABG with Dr Saez. Continue ASA 81 mg PO QD Continue metoprolol and lipitor at current dose Continue Entresto Continue heparin gtt. Can be stopped tomorrow # CHF: New onset heart failure Likely ischemic cardiomyopathy Increase lasix to 40 mg IV q8. 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 Not a candidate for dobutamine echo d/t unrevascularized 3V CAD Valve opens fairly well in limited views. Unlikely to be low flow low gradient true severe , although cannot be entirely excluded No gradient on cath pullback # NSVT Continue metoprolol Keep K > 4 and Mg > 2 Fluids: PO Electrolytes: BMP/Mg daily Nutrition: diabetic DVT prophylaxis: already anticoagulated GI prophylaxis: pantoprazole Dispo: pending course Martha Siddiqui Cardiovascular Disease Fellow Pager [phone] Cardiology Attending Attestation: I have seen and examined the patient with Dr. Shin on 02/20/17. I have reviewed all the clinical information, lab investigation and imaging data. I agree with the above findings, assessment and plan. 03/07/2017 [facility] Extracted from:Title: Cardiology Progress Note Author: Adam Cronin MD Date: 02/19/17 This is a very pleasant 61-year-old male with history of hypertension hyperlipidemia type history of coronary artery disease who presented with worsening left-sided chest pain. Chest pain: Severe 3V CAD Has good targets. Ideally needs CABG. Have discussed with him and he does not want CABG.Being evaluatedbyCTS. Patient has agreed for CABG and [place] [facility]. Will transfer to [facility] for CABG with Dr Saez. Await beds Continue ASA 81 mg PO QD Continue metoprolol and lipitor at current dose Continue Entresto Continue heparin gtt. Can be stopped tomorrow CHF: New onset heart failure Likely ischemic cardiomyopathy Increase lasix to 40 mg IV q8. 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 Not a candidate for dobutamine echo d/t unrevascularized 3V CAD Valve opens fairly well in limited views. 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 Will continue current dose of lasix at 40 mg PO BID 02/19/2017 [facility] Plan of Care No Data Provided for This Section Social History Social History Date Source Social History TypeResponse Alcohol Type Wine. Frequency: 1-2 times per year. Smoking Status Never smoker; Ready to change: No; Concerns about tobacco use in household: No; Exposure to Tobacco Smoke None; Cigarette Smoking Last 365 Days No; Reg Smoking Cessation Counseling No entered on: 10/16/17 02/16/2017 [facility] TypeResponse Alcohol Type Wine. Frequency: 1-2 times per year. Smoking Status Never smoker; Ready to change: No; Concerns about tobacco use in household: No; Exposure to Tobacco Smoke None; Cigarette Smoking Last 365 Days No; Reg Smoking Cessation Counseling No entered on: 10/16/17 02/16/2017 [facility] Social History TypeResponse Alcohol Type Wine. Frequency: 1-2 times per year. Smoking Status Never smoker; Ready to change: No; Concerns about tobacco use in household: No; Exposure to Tobacco Smoke None; Cigarette Smoking Last 365 Days No; Reg Smoking Cessation Counseling No entered on: 06/03/17 [facility] Social History TypeResponse Alcohol Type Wine. Frequency: 1-2 times per year. Smoking Status Never smoker; Ready to change: No; Concerns about tobacco use in household: No; Exposure to Tobacco Smoke None; Cigarette Smoking Last 365 Days No; Reg Smoking Cessation Counseling No entered on: 10/16/17 02/16/2017 [facility] [place] Family History No Data Provided for This Section Advance Directives No Data Provided for This Section Functional Status No Data Provided for This Section
--- OUTSIDE RECORDS SUMMARY | 2018-08-08 21:12 | XMS REPORT | Summary of Care ---
Author Author [facility] Organization [facility] Address Unknown Phone Unavailable Encounter SAMANTHA Mckinney(ZORAIDA) [id number] Date(s): 10/16/17 - 10/17/17 [facility] [address] [place] [phone] Encounter Diagnosis Weakness (Final) - 01/05/18 Type 2 diabetes mellitus without complications (Final) - Atherosclerotic heart disease of [place] coronary artery without angina pectoris (Final) - Hypertensive heart and chronic kidney disease with heart failure and stage 1 thr ough stage 4 chronic kidney disease, or unspecified chronic kidney disease (Final) - Personal history of transient ischemic attack (TIA), and cerebral infarction wit hout residual deficits (Final) - Chronic systolic (congestive) heart failure (Final) - Hyperlipidemia, unspecified (Final) - Chronic kidney disease, stage 3 (moderate) (Final) - Type 2 diabetes mellitus with diabetic chronic kidney disease (Final) - Obesity, unspecified (Final) - Ataxia, unspecified (Final) - Atherosclerosis of aorta (Final) - Degenerative disease of nervous system, unspecified (Final) - Cerebral cysts (Final) - intermediate card tender (current) use of antithrombotics/antiplatelets (Final) - intermediate card tender (current) use of insulin (Final) - intermediate card tender (current) use of aspirin (Final) - Discharge Disposition: Home or Self Care Attending Physician: Alfonzo Hernandez MD PHD Admitting Physician: Alfonzo Hernandez MD PHD Vital Signs 1 2 3 Most recent to oldest [Reference Range]: 193.04 cm (10/16/17 4:43 AM) 185.42 cm (10/16/17 1:02 AM) Height 97.7 DegF (10/17/17 12:06 PM) 99 DegF (10/17/17 7:38 AM) 98.7 DegF (10/17/17 4:15 AM) Temperature Oral [96.4-99.1 DegF] 124/86 mmHg (10/17/17 12:06 PM) 125/79 mmHg (10/17/17 7:38 AM) 127/79 mmHg (10/17/17 4:15 AM) Blood Pressure [90-140/60-90 mmHg] 15 BRMIN (10/17/17 12:06 PM) 15 BRMIN (10/17/17 7:38 AM) 18 BRMIN (10/17/17 4:15 AM) Respiratory Rate [14-20 BRMIN] 102 bpm *HI* (10/17/17 12:06 PM) 92 bpm (10/17/17 7:38 AM) 91 bpm (10/17/17 4:15 AM) Peripheral Pulse Rate [60-100 bpm] 100.909 kg (10/16/17 4:43 AM) 113.636 kg (10/16/17 1:02 AM) Weight 27.08 m2 (10/16/17 4:43 AM) 33.05 m2 (10/16/17 1:02 AM) Body Mass Index Problem List Condition Effective Dates Status Health Status Informant Diabetes(Confirmed) Resolved Hypercholesteremia(C Resolved onfirmed) Hypertension(Confirm Resolved ed) Allergies, Adverse Reactions, Alerts Substance Reaction Severity Status Levaquin Active Medications aspirin 324 mg, 4 tab, Route: CHEW, Drug form: CHEWTAB, ONCE, Dosing Weight 113.636, kg, Priority: STAT, Start date: 10/16/17 2:00:00 CDT, Stop date: 10/16/17 2:00:00 C DT Notes: Take with food. Start Date: 10/16/17 Stop Date: 10/16/17 Status: Completed aspirin 81 mg tablet, enteric coated 81 mg, 1 tab, Route: PO, Drug form: ECTAB, Daily, Dosing Weight 100.909, kg, Sta rt date: 10/17/17 9:00:00 CDT, Duration: 30 day, Stop date: 11/15/17 9:00:00 CDT Notes: Do not crush or chew.(Same As: Ecotrin) Start Date: 10/17/17 Stop Date: 10/17/17 Status: Discontinued atorvastatin 40 mg, 1 tab, Route: PO, Drug form: TAB, Bedtime, Dosing Weight 100.909, kg, Sta rt date: 10/16/17 21:00:00 CDT, Duration: 30 day, Stop date: 11/14/17 21:00:00 C DT Notes: (Same as: Lipitor) Start Date: 10/16/17 Stop Date: 10/17/17 Status: Discontinued atorvastatin 40 mg oral tablet 40 mg=1 tab, PO, Bedtime, # 30 tab, 0 Refill(s) Start Date: 10/16/17 Status: Ordered clopidogrel 75 mg, 1 tab, Route: PO, Drug form: TAB, Daily, Dosing Weight 100.909, kg, Start date: 10/17/17 9:00:00 CDT, Duration: 30 day, Stop date: 11/15/17 9:00:00 CDT Notes: (Same As: Plavix) Start Date: 10/17/17 Stop Date: 10/17/17 Status: Discontinued clopidogrel 75 mg, PO, Daily, 0 Refill(s) Start Date: 10/16/17 Status: Ordered Corlanor 2.5 mg, 0.5 tab, Route: PO, Drug form: TAB, BID, Dosing Weight 100.909, kg, Star t date: 10/16/17 9:00:00 CDT, Duration: 30 day, Stop date: 11/14/17 17:00:00 CDT Notes: Hold and contact prescriber if HR <50 bpm.(Same as: Corlanor) Start Date: 10/16/17 Stop Date: 10/16/17 Status: Discontinued Dextrose 50% Syringe 12.5 gm, 25 mL, Route: IVP, Drug Form: INJ, Dosing Weight 100.909, kg, PRN, PRN Blood Glucose Results, Start date: 10/17/17 10:45:00 CDT, Duration: 30 day, Stop date: 11/16/17 10:44:00 CDT Start Date: 10/17/17 Stop Date: 10/17/17 Status: Discontinued Dextrose 50% Syringe 25 gm, 50 mL, Route: IVP, Drug Form: INJ, Dosing Weight 100.909, kg, PRN, PRN Bl ood Glucose Results, Start date: 10/17/17 10:45:00 CDT, Duration: 30 day, Stop d ate: 11/16/17 10:44:00 CDT Start Date: 10/17/17 Stop Date: 10/17/17 Status: Discontinued finasteride 5 mg, 1 tab, Route: PO, Drug form: TAB, Daily, Dosing Weight 100.909, kg, Start date: 10/16/17 9:00:00 CDT, Duration: 30 day, Stop date: 11/14/17 9:00:00 CDT Notes: (Same as: Proscar) "Do Not Crush"Women of childbearing age should not mayur ch or handle broken tablets Start Date: 10/16/17 Stop Date: 10/17/17 Status: Discontinued finasteride 5 mg=1 tab, PO, Daily, # 30 tab, 0 Refill(s) Start Date: 10/16/17 Status: Ordered furosemide 20 mg, PO, Q12H, 0 Refill(s) Start Date: 10/16/17 Stop Date: 10/17/17 Status: Discontinued glucagon 1 mg, Route: IM, Drug form: PDR/INJ, PRN, Dosing Weight 100.909, kg, PRN Blood G lucose Results, Start date: 10/17/17 10:45:00 CDT, Duration: 30 day, Stop date: 11/16/17 10:44:00 CDT Start Date: 10/17/17 Stop Date: 10/17/17 Status: Discontinued insulin lispro 8 unit, 0.08 mL, Route: SUB-Q, Drug form: SOLN, TID-Before Meals, Dosing Weight 100.909, kg, PRN Blood Glucose Results, Start date: 10/17/17 10:45:00 CDT, Durat ion: 30 day, Stop date: 11/16/17 10:44:00 CDT Notes: (Same as: Humalog ) Roll in palms of hands gently; Do not shake `vigorou sly. "Single Patient Use Only " WASTE: F/P - Black; E - [employer] [address] able for 28 days at room temperature.Expires in days from Da te Start Date: 10/17/17 Stop Date: 10/17/17 Status: Discontinued insulin lispro 6 unit, 0.06 mL, Route: SUB-Q, Drug form: SOLN, TID-Before Meals, Dosing Weight 100.909, kg, PRN Blood Glucose Results, Start date: 10/17/17 10:45:00 CDT, Durat ion: 30 day, Stop date: 11/16/17 10:44:00 CDT Notes: (Same as: Humalog ) Roll in palms of hands gently; Do not shake `vigorou sly. "Single Patient Use Only " WASTE: F/P - Black; E - [facility] [employer] [address] able for 28 days at room temperature.Expires in days from Da te Start Date: 10/17/17 Stop Date: 10/17/17 Status: Discontinued insulin lispro 10 unit, 0.1 mL, Route: SUB-Q, Drug form: SOLN, TID-Before Meals, Dosing Weight 100.909, kg, PRN Blood Glucose Results, Start date: 10/17/17 10:45:00 CDT, Durat ion: 30 day, Stop date: 11/16/17 10:44:00 CDT Notes: (Same as: Humalog ) Roll in palms of hands gently; Do not shake `vigorou sly. "Single Patient Use Only " WASTE: F/P - Black; E - [facility] [address] able for 28 days at room temperature.Expires in days from Da te Start Date: 10/17/17 Stop Date: 10/17/17 Status: Discontinued insulin lispro 4 unit, 0.04 mL, Route: SUB-Q, Drug form: SOLN, TID-Before Meals, Dosing Weight 100.909, kg, PRN Blood Glucose Results, Start date: 10/17/17 10:45:00 CDT, Durat ion: 30 day, Stop date: 11/16/17 10:44:00 CDT Notes: (Same as: Humalog ) Roll in palms of hands gently; Do not shake `vigorou sly. "Single Patient Use Only " WASTE: F/P - Black; E - [facility] [address] able for 28 days at room temperature.Expires in days from Da te Start Date: 10/17/17 Stop Date: 10/17/17 Status: Discontinued insulin lispro 2 unit, 0.02 mL, Route: SUB-Q, Drug form: SOLN, TID-Before Meals, Dosing Weight 100.909, kg, PRN Blood Glucose Results, Start date: 10/17/17 10:45:00 CDT, Durat ion: 30 day, Stop date: 11/16/17 10:44:00 CDT Notes: (Same as: Humalog ) Roll in palms of hands gently; Do not shake `vigorou sly. "Single Patient Use Only " WASTE: F/P - Black; E - [facility] [address] able for 28 days at room temperature.Expires in days from Da te Start Date: 10/17/17 Stop Date: 10/17/17 Status: Discontinued K-Phos Original 250 mg, Route: PO, Drug form: TAB, ONCE, Dosing Weight 100.909, kg, Start date: 10/17/17 10:25:00 CDT, Stop date: 10/17/17 10:25:00 CDT Start Date: 10/17/17 Stop Date: 10/17/17 Status: Deleted magnesium gluconate 500 mg, 1 tab, Route: PO, Drug form: TAB, ONCE, Dosing Weight 100.909, kg, Start date: 10/17/17 10:25:00 CDT, Stop date: 10/17/17 10:25:00 CDT Notes: (Same as: [place])Magnesium gluconate 500mg=27mg elemental magnesium Dose = mg magnesium gluconate(___mg elemental magnesium) Start Date: 10/17/17 Stop Date: 10/17/17 Status: Completed magnesium oxide 400 mg, PO, Daily, 0 Refill(s) Start Date: 10/16/17 Stop Date: 10/17/17 Status: Discontinued metFORMIN 500 mg oral tablet 500 mg=1 tab, PO, BID, 0 Refill(s) Start Date: 10/16/17 Status: Ordered [place] 5/325 oral tablet 1 tab, Route: PO, Drug Form: TAB, Dosing Weight 100.909, kg, Q6H, PRN Pain Score 1-3, Start date: 10/16/17 8:39:00 CDT, Duration: 30 day, Stop date: 11/15/17 8: 38:00 CDT Notes: (Same as: [place] 325/5) Do not exceed 4gm/day of acetaminophen. Start Date: 10/16/17 Stop Date: 10/17/17 Status: Discontinued NS 1,000 mL 1,000 mL, Rate: 150 ml/hr, Infuse over: 6.7 hr, Route: IV, Dosing Weight 100.909 kg, Total Volume: 1,000, Start date: 10/16/17 4:56:00 CDT, Duration: 1 doses or times, Stop date: 10/16/17 11:37:00 CDT, 2.33, m2 Start Date: 10/16/17 Stop Date: 10/16/17 Status: Discontinued NS 500 mL 500 mL, Rate: 75 ml/hr, Infuse over: 6.7 hr, Route: IV, Dosing Weight 100.909 kg , Total Volume: 500, Start date: 10/16/17 5:05:00 CDT, Duration: 1 doses or time s, Stop date: 10/16/17 11:46:00 CDT, 2.33, m2 Start Date: 10/16/17 Stop Date: 10/16/17 Status: Completed pantoprazole 40 mg, PO, Daily, # 30 tab, 0 Refill(s) Start Date: 10/16/17 Stop Date: 11/15/17 Status: Ordered pantoprazole 40 mg, 1 tab, Route: PO, Drug form: ECTAB, Before Breakfast, Dosing Weight 100.9 09, kg, Start date: 10/17/17 7:30:00 CDT, Duration: 30 day, Stop date: 11/15/17 7:30:00 CDT Notes: Tablet should not be chewed or crushed.(Same as: Protonix) Start Date: 10/17/17 Stop Date: 10/17/17 Status: Discontinued Plavix 75 mg, 1 tab, Route: PO, Drug form: TAB, Daily, Dosing Weight 100.909, kg, Start date: 10/17/17 9:00:00 CDT, Duration: 30 day, Stop date: 11/15/17 9:00:00 CDT Notes: (Same As: Plavix) Start Date: 10/17/17 Stop Date: 10/16/17 Status: Deleted Plavix 75 mg, 1 tab, Route: PO, Drug form: TAB, ONCE, Dosing Weight 113.636, kg, Priori ty: STAT, Start date: 10/16/17 2:00:00 CDT, Stop date: 10/16/17 2:00:00 CDT Notes: (Same As: Plavix) Start Date: 10/16/17 Stop Date: 10/16/17 Status: Completed potassium phosphate-sodium phosphate 250 mg-45 mg-298 mg oral tablet 250 mg, 1 tab, Route: PO, Drug Form: TAB, ONCE, Start date: 10/17/17 10:31:00 CD T, Stop date: 10/17/17 10:31:00 CDT Notes: (Same as: K-Phos Neutral, Phospha 250 Neutral) Start Date: 10/17/17 Stop Date: 10/17/17 Status: Completed Saline Flush 0.9% 10 mL, Route: IVP, Drug Form: INJ, Dosing Weight 115.455, kg, PRN, PRN Line Flus h, Start date: 10/16/17 0:59:00 CDT, Duration: 30 day, Stop date: 11/15/17 0:58: 00 CDT Notes: Same as: BD Posiflush Sterile Start Date: 10/16/17 Stop Date: 10/17/17 Status: Discontinued Toprol-XL 25 mg oral tablet, extended release 25 mg, 1 tab, Route: PO, Drug form: ERTAB, Daily, Start date: 10/16/17 9:00:00 C DT, Duration: 30 day, Stop date: 11/14/17 9:00:00 CDT Notes: (Same as: Toprol XL) Do Not Crush Start Date: 10/16/17 Stop Date: 10/16/17 Status: Discontinued Tylenol with Codeine #4 oral tablet 1 tab, PO, BID, PRN Pain, # 32 tab, 0 Refill(s) Start Date: 10/16/17 Stop Date: 10/20/17 Status: Ordered Vitamin B12 1,000 microgram, 1 mL, Route: IM, Drug form: INJ, ONCE, Dosing Weight 100.909, k g, Start date: 10/17/17 8:05:00 CDT, Stop date: 10/17/17 8:05:00 CDT Notes: (Same As: Vitamin B12) Start Date: 10/17/17 Stop Date: 10/17/17 Status: Completed Results ELECTROLYTES 1 2 3 Most recent to oldest [Reference Range]: 136 mEq/L (10/17/17 7:07 AM) 139 mEq/L (10/16/17 1:00 AM) Sodium Lvl [135-145 mEq/L] 3.7 mEq/L (10/17/17 7:07 AM) 4.1 mEq/L (10/16/17 1:00 AM) Potassium Lvl [3.5-5.1 mEq/L] 102 mEq/L (10/17/17 7:07 AM) 104 mEq/L (10/16/17 1:00 AM) Chloride Lvl [95-109 mEq/L] 25 mEq/L (10/17/17 7:07 AM) 23 mEq/L *LOW* (10/16/17 1:00 AM) CO2 [24-32 mEq/L] 12.7 mEq/L (10/17/17 7:07 AM) 16.1 mEq/L (10/16/17 1:00 AM) AGAP [10.0-20.0 mEq/L] 139 mEq/L (10/16/17 12:58 AM) POC Sodium [135-145 mEq/L] 4.3 mEq/L (10/16/17 12:58 AM) POC Potassium [3.5-5.1 mEq/L] 102 mEq/L (10/16/17 12:58 AM) POC Chloride [95-109 mEq/L] 21 mEq/dL *LOW* (10/16/17 12:58 AM) POC Carbon Dioxide [24-32 mEq/dL] 20.0 mEq/L (10/16/17 12:58 AM) POC AGAP [10.0-20.0 mEq/L] CHEM PANEL 1 2 3 Most recent to oldest [Reference Range]: 1.32 mg/dL (10/17/17 7:07 AM) 1.48 mg/dL *HI* (10/16/17 1:00 AM) Creatinine Lvl [0.50-1.40 mg/dL] 57 mL/min/1.73m2 1 *NA* (10/17/17 7:07 AM) 49 mL/min/1.73m2 2 *NA* (10/16/17 1:00 AM) 48 mL/min/1.73m2 3 *NA* (10/16/17 12:58 AM) eGFR 25 mg/dL *HI* (10/17/17 7:07 AM) 23 mg/dL *HI* (10/16/17 1:00 AM) BUN [7-22 mg/dL] 19 (10/17/17 7:07 AM) 16 (10/16/17 1:00 AM) B/C Ratio [6-25] 249 mg/dL *HI* (10/17/17 7:07 AM) 108 mg/dL *HI* (10/16/17 1:00 AM) Glucose Lvl [70-99 mg/dL] 1.5 mg/dL *HI* (10/16/17 12:58 AM) POC Creatinine [0.5-1.4 mg/dL] 24 mg/dL *HI* (10/16/17 12:58 AM) POC BUN [7-22 mg/dL] 113 mg/dL *HI* (10/16/17 12:58 AM) POC Glucose [70-99 mg/dL] 6.9 g/dL (10/17/17 7:07 AM) 7.5 g/dL (10/16/17 1:00 AM) Total Protein [6.4-8.4 g/dL] 3.3 g/dL *LOW* (10/17/17 7:07 AM) 3.8 g/dL (10/16/17 1:00 AM) Albumin Lvl [3.5-5.0 g/dL] 3.6 g/dL (10/17/17 7:07 AM) 3.7 g/dL (10/16/17 1:00 AM) Globulin [2.7-4.2 g/dL] 0.9 (10/17/17 7:07 AM) 1.0 (10/16/17 1:00 AM) A/G Ratio [0.7-1.6] 8.7 mg/dL (10/17/17 7:07 AM) 8.8 mg/dL (10/16/17 1:00 AM) Calcium Lvl [8.5-10.5 mg/dL] 1.00 mMol/L *LOW* (10/16/17 12:58 AM) POC Ion Ca [1.05-1.25 mMol/L] 1.9 mg/dL *LOW* (10/17/17 7:07 AM) 3.4 mg/dL (10/16/17 6:04 AM) Phosphorus [2.5-4.5 mg/dL] 1.4 mg/dL *LOW* (10/17/17 7:07 AM) 1.4 mg/dL *LOW* (10/16/17 6:04 AM) Magnesium Lvl [1.8-2.4 mg/dL] 36 unit/L (10/17/17 7:07 AM) 50 unit/L (10/16/17 1:00 AM) ALT [0-65 unit/L] 30 unit/L (10/17/17 7:07 AM) 55 unit/L *HI* (10/16/17 1:00 AM) AST [0-37 unit/L] 60 unit/L (10/17/17 7:07 AM) 59 unit/L (10/16/17 1:00 AM) Alk Phos [39-136 unit/L] 1.5 mg/dL *HI* (10/17/17 7:07 AM) 0.8 mg/dL (10/16/17 1:00 AM) Bili Total [0.2-1.3 mg/dL] 1Result Comment: The eGFR is calculated using the [...] from the National Kid[employer] Disease Education Program ( NKDEP) which additionally recommends that when the eGFR is used in patients with extremes of body mass index for purposes of drug dosing, the eGFR should be mul tiplied by the estimated BMI. 2Result Comment: The eGFR is calculated using the [...] from the National Kid[employer] Education Program ( NKDEP) which additionally recommends that when the eGFR is used in patients with extremes of body mass index for purposes of drug dosing, the eGFR should be mul tiplied by the estimated BMI. 3Result Comment: The eGFR is calculated using the [...] from the National Kid[employer] Disease Education Program ( NKDEP) which additionally recommends that when the eGFR is used in patients with extremes of body mass index for purposes of drug dosing, the eGFR should be mul tiplied by the estimated BMI. CARDIAC ENZYMES 1 2 3 Most recent to oldest [Reference Range]: 45 unit/L (10/16/17 1:00 AM) Total CK [12-191 unit/L] <0.02 ng/mL (10/16/17 9:49 AM) <0.02 ng/mL (10/16/17 6:04 AM) <0.02 ng/mL (10/16/17 1:00 AM) Troponin-I [0.00-0.40 ng/mL] LIPIDS 1 2 3 Most recent to oldest [Reference Range]: 3.52 *LOW* (10/16/17 6:04 AM) CHD Risk [4.00-7.30] 204 mg/dL *HI* (10/16/17 6:04 AM) Chol [<=199 mg/dL] 164 mg/dL *HI* (10/16/17 6:04 AM) Trig [<=149 mg/dL] 58 mg/dL *LOW* (10/16/17 6:04 AM) HDL [>=61 mg/dL] 113 mg/dL *HI* (10/16/17 6:04 AM) LDL (Calculated) [<=99 mg/dL] 33 *NA* (10/16/17 6:04 AM) VLDL SPECIAL CHEMISTRY 1 2 3 Most recent to oldest [Reference Range]: 7.8 % *HI* (10/16/17 6:04 AM) Hgb A1C [<=5.6 %] ANEMIA STUDY 1 2 3 Most recent to oldest [Reference Range]: 236 pg/mL *LOW* (10/16/17 6:04 AM) Vitamin B12 Lvl [254-1320 pg/mL] 9.8 ng/mL (10/16/17 6:04 AM) Folate Lvl [>=3.0 ng/mL] DRUG SCREEN 1 2 3 Most recent to oldest [Reference Range]: Positive *ABN* (10/16/17 10:41 AM) U Amph Scr [Negative] Negative *NA* (10/16/17 10:41 AM) U Usha Scr [Negative] Negative *NA* (10/16/17 10:41 AM) U Benzodiaz Scr [Negative] Negative *NA* (10/16/17 10:41 AM) U Cannab Scr [Negative] Negative *NA* (10/16/17 10:41 AM) U Cocaine Scr [Negative] Positive *ABN* (10/16/17 10:41 AM) U Opiate Scr [Negative] Negative *NA* (10/16/17 10:41 AM) U Phencyclidine Scr [Negative] See Note (10/16/17 10:41 AM) UDS Note URINE AND STOOL 1 2 3 Most recent to oldest [Reference Range]: Clear (10/16/17 10:41 AM) UA Turbidity [Clear] Yellow *NA* (10/16/17 10:41 AM) UA Color [Yellow] 5.5 (10/16/17 10:41 AM) UA pH [5.0-8.0] 1.036 *HI* (10/16/17 10:41 AM) UA Spec Grav [<=1.030] 30 mg/dL *ABN* (10/16/17 10:41 AM) UA Glucose [Negative mg/dL] Negative (10/16/17 10:41 AM) UA Blood [Negative] 40 mg/dL *ABN* (10/16/17 10:41 AM) UA Ketones [Negative mg/dL] 10 mg/dL *ABN* (10/16/17 10:41 AM) UA Protein [Negative mg/dL] <=1.0 mg/dL *NA* (10/16/17 10:41 AM) UA Urobilinogen [0.1-1.0 mg/dL] Negative *NA* (10/16/17 10:41 AM) UA Bili [Negative] Negative (10/16/17 10:41 AM) UA Leuk Est [Negative] Negative (10/16/17 10:41 AM) UA Nitrite [Negative] <1 /HPF (10/16/17 10:41 AM) UA WBC [0-5 /HPF] <1 /HPF (10/16/17 10:41 AM) UA RBC [0-2 /HPF] None Seen *NA* (10/16/17 10:41 AM) UA Sq Epi Few /LPF *NA* (10/16/17 10:41 AM) UA Mucus [None Seen /LPF] HEMATOLOGY 1 2 3 Most recent to oldest [Reference Range]: 8.1 K/CMM (10/17/17 7:07 AM) 8.3 K/CMM (10/16/17 1:00 AM) WBC [3.7-10.4 K/CMM] 3.64 M/CMM *LOW* (10/17/17 7:07 AM) 3.82 M/CMM *LOW* (10/16/17 1:00 AM) RBC [4.70-6.10 M/CMM] 13.8 g/dL *LOW* (10/17/17 7:07 AM) 14.4 g/dL (10/16/17 1:00 AM) Hgb [14.0-18.0 g/dL] 39.7 % *LOW* (10/17/17 7:07 AM) 42.2 % (10/16/17 1:00 AM) Hct [42.0-54.0 %] 15.6 g/dL (10/16/17 12:58 AM) POC Hemoglobin [14.0-18.0 g/dL] 46.0 % (10/16/17 12:58 AM) POC Hematocrit [42.0-54.0 %] 109.2 fL *HI* (10/17/17 7:07 AM) 110.4 fL *HI* (10/16/17 1:00 AM) MCV [80.0-94.0 fL] 37.9 pg *HI* (10/17/17:07 AM) 37.8 pg *HI* (10/16/17 1:00 AM) MCH [27.0-31.0 pg] 34.7 g/dL (10/17/17 7:07 AM) 34.2 g/dL (10/16/17 1:00 AM) MCHC [32.0-36.0 g/dL] 14.0 % (10/17/17 7:07 AM) 14.1 % (10/16/17 1:00 AM) RDW [11.5-14.5 %] 8.5 fL (10/17/17 7:07 AM) 8.2 fL (10/16/17 1:00 AM) MPV [7.4-10.4 fL] 180 K/CMM (10/17/17 7:07 AM) 201 K/CMM (10/16/17 1:00 AM) Platelet [133-450 K/CMM] 58.0 % (10/17/17 7:07 AM) 52.5 % (10/16/17 1:00 AM) Segs [45.0-75.0 %] 25.7 % (10/17/17 7:07 AM) 33.7 % (10/16/17 1:00 AM) Lymphocytes [20.0-40.0 %] 12.7 % *HI* (10/17/17 7:07 AM) 10.3 % (10/16/17 1:00 AM) Monocytes [2.0-12.0 %] 2.5 % (10/17/17 7:07 AM) 2.2 % (10/16/17 1:00 AM) Eosinophils [0.0-4.0 %] 1.1 % *HI* (10/17/17 7:07 AM) 1.3 % *HI* (10/16/17 1:00 AM) Basophils [0.0-1.0 %] 4.7 K/CMM (10/17/17 7:07 AM) 4.3 K/CMM (10/16/17 1:00 AM) Neutrophils # [1.5-8.1 K/CMM] 2.1 K/CMM (10/17/17 7:07 AM) 2.8 K/CMM (10/16/17 1:00 AM) Lymphocytes # [1.0-5.5 K/CMM] 1.0 K/CMM *HI* (10/17/17 7:07 AM) 0.9 K/CMM *HI* (10/16/17 1:00 AM) Monocytes # [0.0-0.8 K/CMM] 0.2 K/CMM (10/17/17 7:07 AM) 0.2 K/CMM (10/16/17 1:00 AM) Eosinophils # [0.0-0.5 K/CMM] 0.1 K/CMM (10/17/17 7:07 AM) 0.1 K/CMM (10/16/17 1:00 AM) Basophils # [0.0-0.2 K/CMM] 3+ *NA* (10/16/17 1:00 AM) Macrocyte [None Seen] 13.7 seconds (10/16/17 1:00 AM) PT [12.0-14.7 seconds] 1.05 (10/16/17 1:00 AM) INR [0.85-1.17] 30.3 seconds (10/16/17 1:00 AM) PTT [22.9-35.8 seconds] Immunizations Given and Recorded Vaccine Date Status Refusal Reason pneumococcal 23-valent vaccine 02/20/17 Given influenza virus vaccine, inactivated 02/20/17 Given Procedures Procedure Date Related Diagnosis Body Site Status CABG x 5 - Coronary artery bypass grafts x 5 02/23/17 Completed Biliary lithotripsy Completed Partial resection of colon Completed PCL - Percutaneous lithotripsy of renal Completed calculus Placement of stent in cardiac conduit Completed Social History Social History Type Response Alcohol Type Wine. Frequency: 1-2 times per year. Smoking Status Never smoker; Ready to change: No; Concerns about tobacco use in household: No; Exposure to Tobacco Smoke None; Cigarette Smoking Last 365 Days No; Reg Smoking Cessation Counseling No entered on: 10/16/17 Assessment and Plan Extracted from: Title: Clinical Document Author: Liset Cronin MD Date: 10/17/17 Admit date: 10/16/2017 Discharge Date: 10/17/2017 Disposition: DIscharge home Discharge Diagnosis: Discharge Medications ( Please see home medications reconciliation ). Consulting Physicians: Adam Cronin MDOffice: Service: Cardiology . Discharge Instructions: (no discharge order found) (no discharge order found) (no discharge order found) Vital Signs (last 24 hrs) Last Charted Temp Oral99 DegF (OCT 17 07:38) Heart Rate Hajfunzjbi79 bpm (OCT 17 07:38) Resp Rate 15 BRMIN (OCT 17 07:38) YBW853 mmHg (OCT 17 07:38) DBP79 mmHg (OCT 17 07:38) QrV888 % (OCT 17 07:38) Imaging Studies (last [...] intracranial internal carotid or vertebrobasilar circulations. SL: KPATEL-M Brain wo contrast CT 10/16/2017 01:15 Impression: No acute intracranial hemorrhage or mass effect. No CT evidence of acute territorial infarction. Mild chronic microvascular ischemic changes. SL: JANE (no surgical procedures documented) Hospital course: " 62 year old man with PMH significant for hypertension, type 2 diabetes [id number], CAD status post CABG earlier this year, systolic CHF with EF of 35%, history of CVA in 2008 the presents with disbalance and slurred speech, [...] pt, Neurology cleared will keep on Aspirin & Plavix, discharge din stable condition ". - TIA. --> Plavix 75mg Po QD & Aspirin 81mg Po QD. --> 2 D ECHO noted. --> Follow up neurology, cleared for discharge and follow up with neuorlogy as out pt. - Syncope, resolved. - Orthostaic hypotension, improved. --> Follwo up Dr Roseanne baptiste appreciated, will need holetr monitoring as outpt. --> Orthostatic improved, No antihypertensive medications as per cardiology, fall risk precautions. --> Stop Carvedilol & Ivabradine. - Acute kidney injury/CKD stage III. --> Cr trends down, follow up with nephrolgy as out pt. --> Avoid nephrotoxic medications. - Hyperlipidemia. --> LDL 113, Lipitor 40mg Po QD. - Chronic Systolic CHF.--> Will keep same home medications. - Hypo Mag repalaced. - Obsesity with Diabetes Mellitus. --> HB1Ac 7.8, cousnelled about diet & exrcise. - Dispo --> Dischareg home and follow up Follow up with cardiology. Discharge time close to 30 minutes. Extracted from: Title: Progress Note Author: Adam Cronin MD Date: [...] office. Follow up in 3-4 weeks Extracted from: Title: Consult Note Author: Adam Cronin MD Date: [...] anymore No eventsnoted on telemetry Addendum by Roseanne, Recommend 14 day holter monitor as o/p to assess for a fib Adam Ivory MD on 10/16/2017 17:47 CDT Extracted from: Title: General Admission H&P * Author: Alfonzo Hernandez MD PHD Date: 10/16/17 Impression and Plan Patient is a 62-year-old man with a past medical history significant for hypertension, type 2 diabetes [id number], CAD status post CABG earlier this year, [...] obtain orthostatic vitals, echocardiogram, trend troponins, consultation mill hand Dr. Roseanne Figueroa, as above, PT eval Dehydration due to decreased fluid intake, rehydrate gently given Acute kidney injury on CKD3 rehydrate gently CHF, systolic with EF of less than 35%, not in acute exacerbation Hypertension, permissive hypertension for now, will follow up with neurology recommendations Type 2 diabetes [id number], check hemoglobin A1c Prophylaxis, SCDs
--- OUTSIDE RECORDS SUMMARY | 2018-08-08 21:13 | XMS REPORT | Summary of Care ---
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) - 02/25/17 Pneumonia, unspecified organism (Final) - Acute on chronic diastolic (congestive) heart failure (Final) - Hypertensive heart disease with heart failure (Final) - Type 2 diabetes mellitus without complications (Final) - Hyperlipidemia, unspecified (Final) - Ischemic cardiomyopathy (Final) - Presence of coronary angioplasty implant and graft (Final) - Morbid (severe) obesity due to excess calories (Final) - Hypomagnesemia (Final) - Body mass index (BMI) 29.0-29.9, adult (Final) - Discharge Disposition: Acute Care Attending Physician: Perry Read MD Admitting Physician: Perry Read MD Vital Signs 1 2 3 Most recent to oldest [Reference Range]: 193.04 cm (02/15/17 10:04 PM) 193.04 cm (02/15/17 9:36 AM) Height 98 DegF (02/19/17 10:49 PM) 97.7 DegF (02/19/17 7:33 PM) 97.6 DegF (02/19/17 5:38 PM) Temperature Oral [96.4-99.1 DegF] 101/66 mmHg (02/19/17 10:49 PM) 101/67 mmHg (02/19/17 7:33 PM) 101/67 mmHg (02/19/17 5:38 PM) Blood Pressure [90-140/60-90 mmHg] 18 BRMIN (02/19/17 10:49 PM) 18 BRMIN (02/19/17 7:33 PM) 18 BRMIN (02/19/17 5:38 PM) Respiratory Rate [14-20 BRMIN] 73 bpm (02/19/17 10:49 PM) 75 bpm (02/19/17 7:33 PM) 77 bpm (02/19/17 5:38 PM) Peripheral Pulse Rate [60-100 bpm] 102.5 kg (02/19/17 11:00 AM) 110.909 kg (02/15/17 10:04 PM) 97.727 kg (02/15/17 9:36 AM) Weight 29.76 m2 (02/15/17 10:04 PM) 26.23 m2 (02/15/17 9:36 AM) Body Mass Index Problem List Condition Effective Dates Status Health Status Informant Diabetes(Confirmed) Resolved Hypercholesteremia(C Resolved onfirmed) Hypertension(Confirm Resolved ed) Allergies, Adverse Reactions, Alerts Substance Reaction Severity Status Levaquin Active Medications aspirin 81 mg, 1 tab, Route: PO, Drug form: ECTAB, Daily, Dosing Weight 97.727, kg, Star t date: 02/16/17 9:00:00 INS[employer]ANCE AG[employer], Duration: 30 day, Stop date: 03/17/17 9:00:00 INSURANCE AG[employer]Y OWNER Notes: Do not crush or chew.(Same As: Ecotrin) Start Date: 02/16/17 Stop Date: 02/20/17 Status: Discontinued aspirin 325 mg, Route: PO, Drug form: TAB, ONCE, Dosing Weight 97.727, kg, Priority: STA T, Start date: 02/15/17 9:50:00 INSURANCE AG[employer]Y OWNER, Stop date: 02/15/17 9:50:00 INSURANCE AG[employer]Y OWNER Start Date: 02/15/17 Stop Date: 02/15/17 Status: Completed aspirin 81 mg tablet, enteric coated 81 mg=1 tab, PO, Daily, 0 Refill(s) Start Date: 02/19/17 Status: Ordered atorvastatin 40 mg oral tablet 40 mg=1 tab, PO, Bedtime, 0 Refill(s) Start Date: 02/19/17 Stop Date: 05/20/17 Status: Deleted azithromycin + Sodium Chloride 0.9% IV 250 mL 500 mg, Route: IVPB, Drug form: PDR/INJ, ONCE, Dosing Weight 97.727, kg, Priorit y: STAT, Start date: 02/15/17 11:43:00 INSURANCE AG[employer]Y OWNER, Stop date: 02/15/17 11:43:00 INSURANCE AGENCY OWNER, AB X Indication: Pneumonia Notes: (Same As: Zithromax IV) Start Date: 02/15/17 Stop Date: 02/15/17 Status: Completed azithromycin + Sodium Chloride 0.9% IV 250 mL 500 mg, Route: IVPB, [id number], Dosing Weight 97.727, kg, Start date: 02/16/17 13: 00:00 INSURANCE AGENCY OWNER, Duration: 5 day, Stop date: 02/20/17 13:00:00 INSURANCE AGENCY OWNER, ABX Indication: Pn eumonia Notes: (Same As: Zithromax IV) Start Date: 02/16/17 Stop Date: 02/20/17 Status: Discontinued cefTRIAXone + sterile water 10 mL 1 gm, Route: IVPB, ONCE, Dosing Weight 97.727, kg, Priority: STAT, Start date: 0 02/15/17 11:43:00 INSURANCE AG[employer]Y OWNER, Stop date: 02/15/17 11:43:00 INSURANCE AGENCY OWNER, ABX Indication: Pneumoni a Notes: (Same As: Rocephin).Use with 100 mL NS and infuse over 30 min MEDICA TION WASTE Product Size: 1000 mgProduct Wasted: ___ mg Start Date: 02/15/17 Stop Date: 02/15/17 Status: Completed Dextrose 50% Syringe 25 gm, 50 mL, Route: IVP, Drug Form: INJ, Dosing Weight 97.727, kg, PRN, PRN Blo od Glucose Results, Start date: 02/15/17 14:49:00 INSURANCE AG[employer] OWNER, Duration: 30 day, Stop da te: 03/17/17 14:48:00 INSURANCE AG[employer]Y OWNER Start Date: 02/15/17 Stop Date: 02/20/17 Status: Discontinued Dextrose 50% Syringe 12.5 gm, 25 mL, Route: IVP, Drug Form: INJ, Dosing Weight 97.727, kg, PRN, PRN B lood Glucose Results, Start date: 02/15/17 14:49:00 INSURANCE AGENCY OWNER, Duration: 30 day, Stop date: 03/17/17 14:48:00 INSURANCE AG[employer]Y OWNER Start Date: 02/15/17 Stop Date: 02/20/17 Status: Discontinued Entresto 24 mg-26 mg oral tablet 1 tab, Route: PO, Drug Form: TAB, Dosing Weight 110.909, kg, Q12H, Start date: 0 02/18/17 9:15:00 INSURANCE AGENCY OWNER, Duration: 30 day, Stop date: 03/20/17 9:00:00 INSURANCE AGENCY OWNER Notes: (Same as: Entresto)Avoid in patients with history of angioedema due to AC E inhibitor or ARB therapy. Do not use concomitantly or within 36 hours of STEPHEN inhibitors Start Date: 02/18/17 Stop Date: 02/20/17 Status: Discontinued Entresto 24 mg-26 mg oral tablet 1 tab, PO, Q12H, 0 Refill(s) Start Date: 02/19/17 Stop Date: 03/07/17 Status: Discontinued furosemide 40 mg oral tablet 40 mg=1 tab, PO, BID Diuretic, 0 Refill(s) Start Date: 02/19/17 Stop Date: 03/07/17 Status: Discontinued glucagon 1 mg, IM, PRN, PRN Blood Glucose Results, 0 Refill(s) Start Date: 02/19/17 Stop Date: 03/07/17 Status: Discontinued glucagon 1 mg, Route: IM, Drug form: PDR/INJ, PRN, Dosing Weight 97.727, kg, PRN Blood Gl ucose Results, Start date: 02/15/17 14:49:00 INSURANCE AG[employer]Y OWNER, Duration: 30 day, Stop date: 0 03/17/17 14:48:00 INSURANCE AG[employer]Y OWNER Start Date: 02/15/17 Stop Date: 02/20/17 Status: Discontinued Heparin - one time bolus for ACS 4,000 unit, 4 mL, Route: IVP, Drug form: INJ, ONCE, Dosing Weight 110.909, kg, P riority: STAT, Start date: 02/16/17 19:13:00 INSURANCE AG[employer] OWNER, Stop date: 02/16/17 19:13:[address] Start Date: 02/16/17 Stop Date: 02/16/17 Status: Completed heparin 1000 units/mL injectable solution 2,900 unit=2.9 mL, IVP, PRN, PRN Heparin Protocol, 0 Refill(s) Start Date: 02/19/17 Stop Date: 03/07/17 Status: Discontinued heparin 1000 units/mL injectable solution 5,800 unit=5.8 mL, IVP, PRN, PRN Heparin Protocol, 0 Refill(s) Start Date: 02/19/17 Stop Date: 03/07/17 Status: Discontinued Heparin 30 unit/kg Bolus (Heparin Dosing Weight) Route: IVP, PRN, 2,900 unit, 2.9 mL, Drug form: INJ, PRN, Heparin Protocol, Star t date: 02/16/17 19:13:00 INSURANCE AG[employer] OWNER Stop date: 03/18/17 19:12:00 INSURANCE AG[employer] OWNER, 30 day Start Date: 02/16/17 Stop Date: 02/20/17 Status: Discontinued Heparin 60 unit/kg Bolus (Heparin Dosing Weight) Route: IVP, PRN, 5,800 unit, 5.8 mL, Drug form: INJ, PRN, Heparin Protocol, Star t date: 02/16/17 19:13:00 INSURANCE AG[employer] OWNER Stop date: 03/18/17 19:12:00 INSURANCE AG[employer]Y OWNER, 30 day Start Date: 02/16/17 Stop Date: 02/20/17 Status: Discontinued heparin additive 25,000 unit [10.371 unit/kg/hr] + Premix Diluent Dextrose 5% 50 0 mL 500 mL, Rate: 20 ml/hr, Infuse over: 25 hr, Route: IV, Dosing Weight 96.44 kg, T otal Volume: 500 mL, Start date: 02/16/17 19:13:00 INSURANCE AG[employer] OWNER, Duration: 30 day, Stop d ate: 03/18/17 19:12:00 INSURANCE AGENCY OWNER, 2.28, m2 Start Date: 02/16/17 Stop Date: 02/20/17 Status: Discontinued insulin glargine 18 unit, 0.18 mL, Route: SUB-Q, Drug form: SOLN, Daily, Start date: 02/20/17 9:0 0:00 INSURANCE AG[employer] OWNER, Duration: 30 day, Stop date: 03/21/17 9:00:00 INSURANCE AGENCY OWNER Notes: (Same as: Lantus)Do not hold insulin without contacting prescriberWASTE: F/P - Black; E - Municipal Trash Bin "single patient use only" Start Date: 02/20/17 Stop Date: 02/20/17 Status: Canceled insulin glargine 8 unit, 0.08 mL, Route: SUB-Q, Drug form: SOLN, ONCE, Priority: STAT, Start date : 02/19/17 10:15:00 INSURANCE AGENCY OWNER, Stop date: 02/19/17 10:15:00 INSURANCE AGENCY OWNER Notes: (Same as: Lantus)Do not hold insulin without contacting prescriberWASTE: F/P - Black; E - Municipal Trash Bin "single patient use only" Start Date: 02/19/17 Stop Date: 02/19/17 Status: Completed insulin glargine 10 unit, 0.1 mL, Route: SUB-Q, Drug form: SOLN, Daily, Start date: 02/18/17 10:2 1:00 INSURANCE AGENCY OWNER, Duration: 30 day, Stop date: 03/20/17 9:00:00 INSURANCE AGENCY OWNER Notes: (Same as: Lantus)Do not hold insulin without contacting prescriberWASTE: F/P - Black; E - Municipal Trash Bin "single patient use only" Start Date: 02/18/17 Stop Date: 02/19/17 Status: Discontinued insulin glargine 100 units/mL subcutaneous solution 18 unit, SUB-Q, Daily, 0 Refill(s) Start Date: 02/19/17 Stop Date: 03/07/17 Status: Discontinued insulin lispro 8 unit, 0.08 mL, Route: SUB-Q, Drug form: SOLN, TID-Before Meals, Dosing Weight 97.727, kg, PRN Blood Glucose Results, Start date: 02/15/17 14:49:00 INSURANCE AGENCY OWNER, Durati on: 30 day, Stop date: 03/17/17 14:48:00 INSURANCE AGENCY OWNER Notes: Roll in palms of hands gently; Do not shake `vigorously. (Same as: Caridad kilgore )"Single Patient Use Only "WASTE: F/P - Black; E - Municipal Trash Bin Stabl e for 28 days at room temperature.Expires in days from Date Start Date: 02/15/17 Stop Date: 02/20/17 Status: Discontinued insulin lispro 10 unit, 0.1 mL, Route: SUB-Q, Drug form: SOLN, TID-Before Meals, Dosing Weight 97.727, kg, PRN Blood Glucose Results, Start date: 02/15/17 14:49:00 INSURANCE AGENCY OWNER, Durati on: 30 day, Stop date: 03/17/17 14:48:00 INSURANCE AGENCY OWNER Notes: Roll in palms of hands gently; Do not shake `vigorously. (Same as: Humal og )"Single Patient Use Only "WASTE: F/P - Black; E - Municipal Trash Bin Stabl e for 28 days at room temperature.Expires in days from Date Start Date: 02/15/17 Stop Date: 02/20/17 Status: Discontinued insulin lispro 2 unit, 0.02 mL, Route: SUB-Q, Drug form: SOLN, TID-Before Meals, Dosing Weight 97.727, kg, PRN Blood Glucose Results, Start date: 02/15/17 14:49:00 INSURANCE AGENCY OWNER, Durati on: 30 day, Stop date: 03/17/17 14:48:00 INSURANCE AGENCY OWNER Notes: Roll in palms of hands gently; Do not shake `vigorously. (Same as: Humal og )"Single Patient Use Only "WASTE: F/P - Black; E - Municipal Trash Bin Stabl e for 28 days at room temperature.Expires in days from Date Start Date: 02/15/17 Stop Date: 02/20/17 Status: Discontinued insulin lispro 4 unit, 0.04 mL, Route: SUB-Q, Drug form: SOLN, TID-Before Meals, Dosing Weight 97.727, kg, PRN Blood Glucose Results, Start date: 02/15/17 14:49:00 INSURANCE AGENCY OWNER, Durati on: 30 day, Stop date: 03/17/17 14:48:00 INSURANCE AGENCY OWNER Notes: Roll in palms of hands gently; Do not shake `vigorously. (Same as: Humal og )"Single Patient Use Only "WASTE: F/P - Black; E - Municipal Trash Bin Stabl e for 28 days at room temperature.Expires in days from Date Start Date: 02/15/17 Stop Date: 02/20/17 Status: Discontinued insulin lispro 6 unit, 0.06 mL, Route: SUB-Q, Drug form: SOLN, TID-Before Meals, Dosing Weight 97.727, kg, PRN Blood Glucose Results, Start date: 02/15/17 14:49:00 INSURANCE AGENCY OWNER, Durati on: 30 day, Stop date: 03/17/17 14:48:00 INSURANCE AGENCY OWNER Notes: Roll in palms of hands gently; Do not shake `vigorously. (Same as: Caridad og )"Single Patient Use Only "WASTE: F/P - Black; E - [employer] Trash Bin Stabl e for 28 days at room temperature.Expires in days from Date Start Date: 02/15/17 Stop Date: 02/20/17 Status: Discontinued insulin lispro 100 units/mL subcutaneous injection 10 unit, SUB-Q, TID-Before Meals, PRN Blood Glucose Results, 0 Refill(s) Start Date: 02/19/17 Stop Date: 03/07/17 Status: Discontinued insulin lispro 100 units/mL subcutaneous injection 8 unit, SUB-Q, TID-Before Meals, PRN Blood Glucose Results, 0 Refill(s) Start Date: 02/19/17 Stop Date: 03/07/17 Status: Discontinued insulin lispro 100 units/mL subcutaneous injection 6 unit, SUB-Q, TID-Before Meals, PRN Blood Glucose Results, 0 Refill(s) Start Date: 02/19/17 Stop Date: 03/07/17 Status: Discontinued insulin lispro 100 units/mL subcutaneous injection 4 unit, SUB-Q, TID-Before Meals, PRN Blood Glucose Results, 0 Refill(s) Start Date: 02/19/17 Stop Date: 03/07/17 Status: Discontinued insulin lispro 100 units/mL subcutaneous injection 2 unit, SUB-Q, TID-Before Meals, PRN Blood Glucose Results, 0 Refill(s) Start Date: 02/19/17 Stop Date: 03/07/17 Status: Discontinued Lasix 40 mg, 1 tab, Route: PO, Drug form: TAB, BID Diuretic, Dosing Weight 110.909, kg , Start date: 02/16/17 20:00:00 INSURANCE AGENC[employer] OWNER, Duration: 30 day, Stop date: 03/18/17 16:00 :00 INSURANCE AGENCY OWNER Notes: (Same as: Lasix) May cause GI upset. Give with food or milk. Start Date: 02/16/17 Stop Date: 02/20/17 Status: Discontinued Levemir 10 unit, Route: SUB-Q, Daily, Dosing Weight 110.909, kg, Start date: 02/18/17 10 :30:00 INSURANCE AGENCY OWNER, Duration: 30 day, Stop date: 03/20/17 9:00:00 INSURANCE AG[employer]Y OWNER Start Date: 02/18/17 Stop Date: 02/18/17 Status: Deleted Lipitor 40 mg, 1 tab, Route: PO, Drug form: TAB, Bedtime, Dosing Weight 97.727, kg, Star t date: 02/15/17 21:00:00 INSURANCE AGENCY OWNER, Duration: 30 day, Stop date: 03/16/17 21:00:00 CS T Notes: (Same as: Lipitor) Start Date: 02/15/17 Stop Date: 02/20/17 Status: Discontinued magnesium sulfate 2 gm in Water 50 ml 2 gm, 50 mL, Route: IVPB, Drug form: INJ, ONCE, Dosing Weight 110.909, kg, Start date: 02/19/17 7:09:00 INSURANCE AGENCY OWNER, Stop date: 02/19/17 7:09:00 INSURANCE AGENCY OWNER Notes: WASTE: F/P - Sink; E - Municipal Trash Bin Start Date: 02/19/17 Stop Date: 02/19/17 Status: Completed metoprolol tartrate 12.5 mg, 0.5 tab, Route: PO, Drug form: TAB, Q12H, Dosing Weight 97.727, kg, Sta rt date: 02/15/17 21:00:00 INSURANCE AGENC[employer] OWNER, Duration: 30 day, Stop date: 03/17/17 9:00:00 CS T Notes: (Same as: Lopressor) Start Date: 02/15/17 Stop Date: 02/20/17 Status: Discontinued metoprolol tartrate 25 mg oral tablet 12.5 mg=0.5 tab, PO, Q12H, 0 Refill(s) Start Date: 02/19/17 Stop Date: 03/07/17 Status: Discontinued morphine Sulfate 4 mg, Route: IVP, ONCE, Dosing Weight 97.727, kg, Priority: STAT, Start date: 10:58:00 INSURANCE AGENCY OWNER, Stop date: 02/15/17 10:58:00 INSURANCE AGENCY OWNER Start Date: 02/15/17 Stop Date: 02/15/17 Status: Completed morphine Sulfate 4 mg=1 mL, IV, Q4H, PRN Pain Score 6-10, 0 Refill(s) Start Date: 02/19/17 Stop Date: 03/07/17 Status: Discontinued morphine Sulfate 4 mg, 1 mL, Route: IV, Drug form: SOLN, Q6H, Dosing Weight 97.727, kg, PRN Pain Score 6-10, Start date: 02/15/17 18:36:00 INSURANCE AGENCY OWNER, Duration: 30 day, Stop date: 08/25 18:35:00 INSURANCE AGENCY OWNER Notes: (Same as:MORPhine Sulfate) Start Date: 02/15/17 Stop Date: 02/18/17 Status: Discontinued morphine Sulfate 4 mg, 1 mL, Route: IV, Drug form: SOLN, Q4H, Dosing Weight 110.909, kg, PRN Pain Score 6-10, Start date: 02/18/17 13:42:00 INSURANCE AGENCY OWNER, Duration: 30 day, Stop date: 11/25 13:41:00 INSURANCE AGENCY OWNER Notes: (Same as:MORPhine Sulfate) Start Date: 02/18/17 Stop Date: 02/20/17 Status: Discontinued Thornton 7.5/325 oral tablet 1 tab, PO, Q4H, PRN Pain Score 4-6, 0 Refill(s) Start Date: 02/19/17 Stop Date: 03/07/17 Status: Discontinued Thornton 7.5/325 oral tablet 1 tab, Route: PO, Drug Form: TAB, Dosing Weight 102.5, kg, Q4H, PRN Pain Score 4 -6, Start date: 02/19/17 18:07:00 INSURANCE AGENCY OWNER, Duration: 30 day, Stop date: 03/21/17 18: 06:00 INSURANCE AGENCY OWNER Notes: Same as Thornton 325-7.5mg Do not exceed 4gm/day of acetaminophen. Start Date: 02/19/17 Stop Date: 02/20/17 Status: Discontinued ondansetron 4 mg, Route: IVP, Drug form: INJ, ONCE, Dosing Weight 97.727, kg, Priority: STAT , Start date: 02/15/17 10:58:00 INSURANCE AGENCY OWNER, Stop date: 02/15/17 10:58:00 INSURANCE AGENCY OWNER Start Date: 02/15/17 Stop Date: 02/15/17 Status: Completed ondansetron 4 mg, 2 mL, Route: IVP, Drug form: INJ, Q6H, Dosing Weight 110.909, kg, PRN Naus ea, Start date: 02/16/17 14:20:00 INSURANCE AGENCY OWNER, Duration: 30 day, Stop date: 03/18/17 14: 19:00 INSURANCE AGENCY OWNER Notes: (Same as: Zofran) MEDICATION WASTE Product Size: 4 mgProduct Was terrance: ___ mg Start Date: 02/16/17 Stop Date: 02/20/17 Status: Discontinued ondansetron 2 mg/mL injectable solution 4 mg=2 mL, IVP, Q6H, PRN Nausea, 0 Refill(s) Start Date: 02/19/17 Stop Date: 03/07/17 Status: Discontinued potassium chloride 40 mEq, 2 tab, Route: PO, Drug form: ERTAB, ONCE, Dosing Weight 102.5, kg, Start date: 02/19/17 16:25:00 INSURANCE AGENCY OWNER, Stop date: 02/19/17 16:25:00 INSURANCE AGENCY OWNER Notes: (Same as: K-Dur 20)"Do Not Crush" With food and full glass of water Start Date: 02/19/17 Stop Date: 02/19/17 Status: Completed potassium chloride 20 mEq/15 mL oral liquid 40 mEq, 30 mL, Route: PO, Drug form: LIQ, ONCE, Dosing Weight 110.909, kg, Start date: 02/18/17 9:03:00 INSURANCE AGENCY OWNER, Stop date: 02/18/17 9:03:00 INSURANCE AGENCY OWNER Notes: (Same as: Potassium Chloride) Start Date: 02/18/17 Stop Date: 02/18/17 Status: Completed Rocephin + sterile water 10 mL 1 gm, Route: IVPB, [id number], Dosing Weight 97.727, kg, Start date: 02/16/17 13:00 :00 INSURANCE AGENCY OWNER, Duration: 5 day, Stop date: 02/20/17 13:00:00 INSURANCE AGENCY OWNER, ABX Indication: Pneu monia Notes: (Same As: Rocephin).Use with 100 mL NS and infuse over 30 min MEDICA TION WASTE Product Size: 1000 mgProduct Wasted: ___ mg Start Date: 02/16/17 Stop Date: 02/20/17 Status: Discontinued Sodium Chloride 0.9% (Bolus) IV 250 mL, 250 ml/hr, Infuse Over: 1 hr, Route: IV, 250, Drug form: INJ, ONCALL, Pr iority: Routine, Dosing Weight 97.727 kg, Start date: 02/15/17 18:00:00 INSURANCE AGENCY OWNER, Dur ation: 1 doses or times Start Date: 02/15/17 Stop Date: 02/20/17 Status: Discontinued Sodium Chloride 0.9% IV 750 mL 750 mL, Rate: 75 ml/hr, Infuse over: 10 hr, Route: IV, Dosing Weight 97.727 kg, Total Volume: 750, Start date: 02/15/17 17:59:00 INSURANCE AGENCY OWNER, Duration: 24 hr, Stop date : 02/16/17 17:58:00 INSURANCE AGENCY OWNER, 2.29, m2 Start Date: 02/15/17 Stop Date: 02/16/17 Status: Completed Xanax 0.25 mg oral tablet 0.25 mg=1 tab, PO, Q12H, PRN Anxiety, 0 Refill(s) Start Date: 02/19/17 Stop Date: 03/07/17 Status: Discontinued Xanax 0.25 mg oral tablet 0.25 mg, 1 tab, Route: PO, Drug form: TAB, Q12H, Dosing Weight 110.909, kg, PRN Anxiety, Start date: 02/17/17 17:24:00 INSURANCE AGENCY OWNER, Duration: 30 day, Stop date: 8 17:23:00 INSURANCE AGENCY OWNER Notes: With food or milk(Same as: Xanax) Start Date: 02/17/17 Stop Date: 02/20/17 Status: Discontinued Results ELECTROLYTES 1 2 3 Most recent to oldest [Reference Range]: 131 mEq/L *LOW* (02/19/17 8:55 AM) 133 mEq/L *LOW* (02/18/17 7:25 AM) 133 mEq/L *LOW* (02/15/17 6:56 PM) Sodium Lvl [135-145 mEq/L] 3.5 mEq/L (02/19/17 8:55 AM) 3.7 mEq/L (02/18/17 7:25 AM) 4.3 mEq/L (02/15/17 6:56 PM) Potassium Lvl [3.5-5.1 mEq/L] 93 mEq/L *LOW* (02/19/17 8:55 AM) 94 mEq/L *LOW* (02/18/17 7:25 AM) 98 mEq/L (02/15/17 6:56 PM) Chloride Lvl [95-109 mEq/L] 32 mEq/L (02/19/17 8:55 AM) 30 mEq/L (02/18/17 7:25 AM) 25 mEq/L (02/15/17 6:56 PM) CO2 [24-32 mEq/L] 9.5 mEq/L *LOW* (02/19/17 8:55 AM) 12.7 mEq/L (02/18/17 7:25 AM) 14.3 mEq/L (02/15/17 6:56 PM) AGAP [10.0-20.0 mEq/L] CHEM PANEL 1 2 3 Most recent to oldest [Reference Range]: 1.02 mg/dL (02/19/17 8:55 AM) 1.04 mg/dL (02/18/17 7:25 AM) 1.17 mg/dL (02/15/17 6:56 PM) Creatinine Lvl [0.50-1.40 mg/dL] 78 mL/min/1.73m2 1 *NA* (02/19/17 8:55 AM) 76 mL/min/1.73m2 2 *NA* (02/18/17 7:25 AM) 66 mL/min/1.73m2 3 *NA* (02/15/17 6:56 PM) eGFR 22 mg/dL (02/19/17 8:55 AM) 26 mg/dL *HI* (02/18/17 7:25 AM) 24 mg/dL *HI* (02/15/17 6:56 PM) BUN [7-22 mg/dL] 25 (02/18/17 7:25 AM) 21 (02/15/17 10:17 AM) B/C Ratio [6-25] 281 mg/dL *HI* (02/19/17 8:55 AM) 196 mg/dL *HI* (02/18/17 7:25 AM) 364 mg/dL *HI* (02/15/17 6:56 PM) Glucose Lvl [70-99 mg/dL] 6.7 g/dL (02/18/17 7:25 AM) 7.6 g/dL (02/15/17 10:17 AM) Total Protein [6.4-8.4 g/dL] 2.9 g/dL *LOW* (02/18/17 7:25 AM) 3.4 g/dL *LOW* (02/15/17 10:17 AM) Albumin Lvl [3.5-5.0 g/dL] 3.8 g/dL (02/18/17 7:25 AM) 4.2 g/dL (02/15/17 10:17 AM) Globulin [2.7-4.2 g/dL] 0.8 (02/18/17 7:25 AM) 0.8 (02/15/17 10:17 AM) A/G Ratio [0.7-1.6] 8.8 mg/dL (02/19/17 8:55 AM) 9.4 mg/dL (02/18/17 7:25 AM) 9.4 mg/dL (02/15/17 6:56 PM) Calcium Lvl [8.5-10.5 mg/dL] 1.5 mg/dL *LOW* (02/19/17 1:08 AM) Magnesium Lvl [1.8-2.4 mg/dL] 66 unit/L *HI* (02/18/17 7:25 AM) 58 unit/L (02/15/17 10:17 AM) ALT [0-65 unit/L] 44 unit/L *HI* (02/18/17 7:25 AM) 37 unit/L (02/15/17 10:17 AM) AST [0-37 unit/L] 53 unit/L (02/18/17 7:25 AM) 71 unit/L (02/15/17 10:17 AM) Alk Phos [39-136 unit/L] 1.2 mg/dL (02/18/17 7:25 AM) 1.4 mg/dL *HI* (02/15/17 10:17 AM) Bili Total [0.2-1.3 mg/dL] 1.9 mMol/L (02/15/17 10:17 AM) Lactic Acid Lvl [0.5-2.2 mMol/L] 1Result Comment: The eGFR is calculated using [...] 3 Most recent to oldest [Reference Range]: 104 unit/L (02/15/17 10:17 AM) Total CK [12-191 unit/L] 3.7 ng/mL *HI* (02/15/17 10:17 AM) CK MB [0.5-3.6 ng/mL] 3.6 *HI* (02/15/17 10:17 AM) CK MB Index [0.0-2.5] 0.02 ng/mL (02/15/17 10:17 AM) Troponin-I [0.00-0.40 ng/mL] 648 pg/mL *HI* (02/18/17 7:25 AM) 688 pg/mL *HI* (02/15/17 6:56 PM) BNP [<=100 pg/mL] URINE AND STOOL 1 2 3 Most recent to oldest [Reference Range]: Clear (02/15/17 11:19 AM) UA Turbidity [Clear] Yellow *NA* (02/15/17 11:19 AM) UA Color [Yellow] 5.5 (02/15/17 11:19 AM) UA pH [5.0-8.0] 1.027 (02/15/17 11:19 AM) UA Spec Grav [<=1.030] >=1000 mg/dL *ABN* (02/15/17 11:19 AM) UA Glucose [Negative mg/dL] Negative (02/15/17 11:19 AM) UA Blood [Negative] 40 mg/dL *ABN* (02/15/17 11:19 AM) UA Ketones [Negative mg/dL] Negative mg/dL (02/15/17 11:19 AM) UA Protein [Negative mg/dL] <=1.0 mg/dL *NA* (02/15/17 AM) UA Urobilinogen [0.1-1.0 mg/dL] Negative *NA* (02/15/17 11:19 AM) UA Bili [Negative] Negative (02/15/17 11:19 AM) UA Leuk Est [Negative] Negative (02/15/17 11:19 AM) UA Nitrite [Negative] <1 /HPF (02/15/17 11:19 AM) UA WBC [0-5 /HPF] 2 /HPF (02/15/17 11:19 AM) UA RBC [0-2 /HPF] None Seen *NA* (02/15/17 11:19 AM) UA Sq Epi Few /LPF *NA* (02/15/17 11:19 AM) UA Mucus [None Seen /LPF] Few /HPF *ABN* (02/15/17 11:19 AM) UA Sperm [None Seen /HPF] HEMATOLOGY 1 2 3 Most recent to oldest [Reference Range]: 7.6 K/CMM (02/19/17 8:55 AM) 9.6 K/CMM (02/18/17 7:25 AM) 8.0 K/CMM (02/17/17 5:44 AM) WBC [3.7-10.4 K/CMM] 4.16 M/CMM *LOW* (02/19/17 8:55 AM) 4.43 M/CMM *LOW* (02/18/17 7:25 AM) 4.50 M/CMM *LOW* (02/17/17 5:44 AM) RBC [4.70-6.10 M/CMM] 15.2 g/dL (02/19/17 8:55 AM) 16.3 g/dL (02/18/17 7:25 AM) 16.4 g/dL (02/17/17 5:44 AM) Hgb [14.0-18.0 g/dL] 43.5 % (02/19/17 8:55 AM) 46.9 % (02/18/17 7:25 AM) 47.9 % (02/17/17 5:44 AM) Hct [42.0-54.0 %] 104.5 fL *HI* (02/19/17 8:55 AM) 105.9 fL *HI* (02/18/17 7:25 AM) 106.3 fL *HI* (02/17/17 5:44 AM) MCV [80.0-94.0 fL] 36.6 pg *HI* (02/19/17 8:55 AM) 36.9 pg *HI* (02/18/17 7:25 AM) 36.3 pg *HI* (02/17/17 5:44 AM) MCH [27.0-31.0 pg] 35.0 g/dL (02/19/17 8:55 AM) 34.8 g/dL (02/18/17 7:25 AM) 34.2 g/dL (02/17/17 5:44 AM) MCHC [32.0-36.0 g/dL] 13.0 % (02/19/17 8:55 AM) 13.2 % (02/18/17 7:25 AM) 13.5 % (02/17/17 5:44 AM) RDW [11.5-14.5 %] 9.4 fL (02/19/17 8:55 AM) 9.2 fL (02/18/17 7:25 AM) 9.2 fL (02/17/17 5:44 AM) MPV [7.4-10.4 fL] 167 K/CMM (02/19/17 8:55 AM) 154 K/CMM (02/18/17 7:25 AM) 181 K/CMM (02/17/17 5:44 AM) Platelet [133-450 K/CMM] 45.0 % (02/18/17 7:25 AM) 53.0 % (02/17/17 5:44 AM) 66.7 % (02/16/17 7:42 PM) Segs [45.0-75.0 %] 35.1 % (02/18/17 7:25 AM) 30.1 % (02/17/17 5:44 AM) 18.7 % *LOW* (02/16/17 7:42 PM) Lymphocytes [20.0-40.0 %] 17.0 % *HI* (02/18/17 7:25 AM) 13.8 % *HI* (02/17/17 5:44 AM) 12.5 % *HI* (02/16/17 7:42 PM) Monocytes [2.0-12.0 %] 2.2 % (02/18/17 7:25 AM) 2.1 % (02/17/17 5:44 AM) 1.4 % (02/16/17 7:42 PM) Eosinophils [0.0-4.0 %] 0.7 % (02/18/17 7:25 AM) 1.0 % (02/17/17 5:44 AM) 0.7 % (02/16/17 7:42 PM) Basophils [0.0-1.0 %] 4.3 K/CMM (02/18/17 7:25 AM) 4.2 K/CMM (02/17/17 5:44 AM) 5.2 K/CMM (02/16/17 7:42 PM) Segs-Bands # [1.5-8.1 K/CMM] 3.4 K/CMM (02/18/17 7:25 AM) 2.4 K/CMM (02/17/17 5:44 AM) 1.5 K/CMM (02/16/17 7:42 PM) Lymphocytes # [1.0-5.5 K/CMM] 1.6 K/CMM *HI* (02/18/17 7:25 AM) 1.1 K/CMM *HI* (02/17/17 5:44 AM) 1.0 K/CMM *HI* (02/16/17 7:42 PM) Monocytes # [0.0-0.8 K/CMM] 0.2 K/CMM (02/18/17 7:25 AM) 0.2 K/CMM (02/17/17 5:44 AM) 0.1 K/CMM (02/16/17 7:42 PM) Eosinophils # [0.0-0.5 K/CMM] 0.1 K/CMM (02/18/17 7:25 AM) 0.1 K/CMM (02/17/17 5:44 AM) 0.1 K/CMM (02/16/17 7:42 PM) Basophils # [0.0-0.2 K/CMM] Normal (02/17/17 5:44 AM) RBC Morph 1+ *ABN* (02/18/17 7:25 AM) Macrocyte [None Seen] Normal (02/17/17 5:44 AM) Plt Morph 16.0 seconds *HI* (02/19/17 8:59 AM) 15.4 seconds *HI* (02/19/17 1:08 AM) 14.1 seconds (02/16/17 7:42 PM) PT [12.0-14.7 seconds] 1.27 *HI* (02/19/17 8:59 AM) 1.21 *HI* (02/19/17 1:08 AM) 1.09 (02/16/17 7:42 PM) INR [0.85-1.17] 55.7 seconds *HI* (02/19/17 2:36 PM) 61.5 seconds *HI* (02/19/17 8:59 AM) 46.1 seconds *HI* (02/19/17 1:08 AM) PTT [22.9-35.8 seconds] Immunizations Given and Recorded Vaccine Date Status Refusal Reason pneumococcal 23-valent vaccine 02/20/17 Given influenza virus vaccine, inactivated 02/20/17 Given Procedures Procedure Date Related Diagnosis Body Site Status Biliary lithotripsy Completed Partial resection of colon [...] Reg Smoking Cessation Counseling No entered on: 05/20/17 Assessment and Plan Extracted from: Title: Cardiology Progress Note Author: Adam Cronin MD [...] agreed for CABG and wants this at [facility]. Will transfer to [facility] for CABG with Dr Saez. Await beds [...] 2 Repleted Chest pain Pneumonia Addendum by Roseanne, Borderline hypotension. Will continue current dose of lasix at 40 mg PO BID Adam Ivory MD on 02/19/2017 16:30 [employer]
--- OUTSIDE RECORDS SUMMARY | 2018-08-08 21:13 | XMS REPORT | Summary of Care ---
Author Author [facility] Organization [facility] Address Unknown Phone Unavailable Encounter SAMANTHA Mckinney(ZORAIDA) [id number] Date(s): 02/15/17 - 02/19/17 [facility] [address] [place] [id number]- Discharge Disposition: Acute Care Attending Physician: Perry [...] 97.727, kg, Star t date: 02/16/17 9:00:00 DOLLY PUSHER, Duration: 30 day, Stop date: 03/17/17 9:00:00 DOLLY PUSHER Notes: Do not crush or chew.(Same As: Ecotrin) Start Date: 02/16/17 Stop Date: 02/20/17 Status: Discontinued aspirin 325 mg, Route: PO, Drug form: TAB, ONCE, Dosing Weight 97.727, kg, Priority: STA T, Start date: 02/15/17 9:50:00 DOLLY PUSHER, Stop date: 02/15/17 9:50:00 DOLLY PUSHER Start Date: 02/15/17 Stop Date: 02/15/17 Status: Completed aspirin 81 mg tablet, enteric coated 81 mg=1 tab, PO, Daily, 0 Refill(s) Start Date: 02/19/17 Status: Suspended atorvastatin 40 mg oral tablet 40 mg=1 tab, PO, Bedtime, 0 Refill(s) Start Date: 02/19/17 Status: Suspended azithromycin + Sodium Chloride 0.9% IV 250 mL 500 mg, Route: IVPB, Drug form: PDR/INJ, ONCE, Dosing Weight 97.727, kg, Priorit y: STAT, Start date: 02/15/17 11:43:00 DOLLY PUSHER, Stop date: 02/15/17 11:43:00 DOLLY PUSHER, AB X Indication: Pneumonia Notes: (Same As: Zithromax IV) Start Date: 02/15/17 Stop Date: 02/15/17 Status: Completed azithromycin + Sodium Chloride 0.9% IV 250 mL 500 mg, Route: IVPB, [id number], Dosing Weight 97.727, kg, Start date: 02/16/17 13: 00:00 DOLLY PUSHER, Duration: 5 day, Stop date: 02/20/17 13:00:00 DOLLY PUSHER, ABX Indication: Pn eumonia Notes: (Same As: Zithromax IV) Start Date: 02/16/17 Stop Date: 02/20/17 Status: Discontinued cefTRIAXone + sterile water 10 mL 1 gm, Route: IVPB, ONCE, Dosing Weight 97.727, kg, Priority: STAT, Start date: 0 02/15/17 11:43:00 DOLLY PUSHER, Stop date: 02/15/17 11:43:00 DOLLY PUSHER, ABX Indication: Pneumoni a Notes: (Same As: Rocephin).Use with 100 mL NS and infuse over 30 min MEDICA TION WASTE Product Size: 1000 mgProduct Wasted: ___ mg Start Date: 02/15/17 Stop Date: 02/15/17 Status: Completed Dextrose 50% Syringe 25 gm, 50 mL, Route: IVP, Drug Form: INJ, Dosing Weight 97.727, kg, PRN, PRN Blo od Glucose Results, Start date: 02/15/17 14:49:00 DOLLY PUSHER, Duration: 30 day, Stop da te: 03/17/17 14:48:00 DOLLY PUSHER Start Date: 02/15/17 Stop Date: 02/20/17 Status: Discontinued Dextrose 50% Syringe 12.5 gm, 25 mL, Route: IVP, Drug Form: INJ, Dosing Weight 97.727, kg, PRN, PRN B lood Glucose Results, Start date: 02/15/17 14:49:00 DOLLY PUSHER, Duration: 30 day, Stop date: 03/17/17 14:48:00 DOLLY PUSHER Start Date: 02/15/17 Stop Date: 02/20/17 Status: Discontinued Entresto 24 mg-26 mg oral tablet 1 tab, Route: PO, Drug Form: TAB, Dosing Weight 110.909, kg, Q12H, Start date: 0 02/18/17 9:15:00 DOLLY PUSHER, Duration: 30 day, Stop date: 03/20/17 9:00:00 DOLLY PUSHER Notes: (Same as: Entresto)Avoid in patients with history of angioedema due to AC E inhibitor or ARB therapy. Do not use concomitantly or within 36 hours of STEPHEN inhibitors Start Date: 02/18/17 Stop Date: 02/20/17 Status: Discontinued Entresto 24 mg-26 mg oral tablet 1 tab, PO, Q12H, 0 Refill(s) Start Date: 02/19/17 Status: Suspended furosemide 40 mg oral tablet 40 mg=1 tab, PO, BID Diuretic, 0 Refill(s) Start Date: 02/19/17 Status: Suspended glucagon 1 mg, IM, PRN, PRN Blood Glucose Results, 0 Refill(s) Start Date: 02/19/17 Status: Suspended glucagon 1 mg, Route: IM, Drug form: PDR/INJ, PRN, Dosing Weight 97.727, kg, PRN Blood Gl ucose Results, Start date: 02/15/17 14:49:00 DOLLY PUSHER, Duration: 30 day, Stop date: 0 03/17/17 14:48:00 DOLLY PUSHER Start Date: 02/15/17 Stop Date: 02/20/17 Status: Discontinued Heparin - one time bolus for ACS 4,000 unit, 4 mL, Route: IVP, Drug form: INJ, ONCE, Dosing Weight 110.909, kg, P riority: STAT, Start date: 02/16/17 19:13:00 DOLLY PUSHER, Stop date: 02/16/17 19:13:[address] Start Date: 02/16/17 Stop Date: 02/16/17 Status: Completed heparin 1000 units/mL injectable solution 2,900 unit=2.9 mL, IVP, PRN, PRN Heparin Protocol, 0 Refill(s) Start Date: 02/19/17 Status: Suspended heparin 1000 units/mL injectable solution 5,800 unit=5.8 mL, IVP, PRN, PRN Heparin Protocol, 0 Refill(s) Start Date: 02/19/17 Status: Suspended Heparin 30 unit/kg Bolus (Heparin Dosing Weight) Route: IVP, PRN, 2,900 unit, 2.9 mL, Drug form: INJ, PRN, Heparin Protocol, Star t date: 02/16/17 19:13:00 DOLLY PUSHER Stop date: 03/18/17 19:12:00 DOLLY PUSHER, 30 day Start Date: 02/16/17 Stop Date: 02/20/17 Status: Discontinued Heparin 60 unit/kg Bolus (Heparin Dosing Weight) Route: IVP, PRN, 5,800 unit, 5.8 mL, Drug form: INJ, PRN, Heparin Protocol, Star t date: 02/16/17 19:13:00 DOLLY PUSHER Stop date: 03/18/17 19:12:00 DOLLY PUSHER, 30 day Start Date: 02/16/17 Stop Date: 02/20/17 Status: Discontinued heparin additive 25,000 unit [10.371 unit/kg/hr] + Premix Diluent Dextrose 5% 50 0 mL 500 mL, Rate: 20 ml/hr, Infuse over: 25 hr, Route: IV, Dosing Weight 96.44 kg, T otal Volume: 500 mL, Start date: 02/16/17 19:13:00 DOLLY PUSHER, Duration: 30 day, Stop d ate: 03/18/17 19:12:00 DOLLY PUSHER, 2.28, m2 Start Date: 02/16/17 Stop Date: 02/20/17 Status: Discontinued insulin glargine 18 unit, 0.18 mL, Route: SUB-Q, Drug form: SOLN, Daily, Start date: 02/20/17 9:0 0:00 DOLLY PUSHER, Duration: 30 day, Stop date: 03/21/17 9:00:00 DOLLY PUSHER Notes: (Same as: Lantus)Do not hold insulin without contacting prescriberWASTE: F/P - Black; E - Municipal Trash Bin "single patient use only" Start Date: 02/20/17 Stop Date: 02/20/17 Status: Canceled insulin glargine 8 unit, 0.08 mL, Route: SUB-Q, Drug form: SOLN, ONCE, Priority: STAT, Start date : 02/19/17 10:15:00 DOLLY PUSHER, Stop date: 02/19/17 10:15:00 DOLLY PUSHER Notes: (Same as: Lantus)Do not hold insulin without contacting prescriberWASTE: F/P - Black; E - Municipal Trash Bin "single patient use only" Start Date: 02/19/17 Stop Date: 02/19/17 Status: Completed insulin glargine 10 unit, 0.1 mL, Route: SUB-Q, Drug form: SOLN, Daily, Start date: 02/18/17 10:2 1:00 DOLLY PUSHER, Duration: 30 day, Stop date: 03/20/17 9:00:00 DOLLY PUSHER Notes: (Same as: Lantus)Do not hold insulin without contacting prescriberWASTE: F/P - Black; E - Municipal Trash Bin "single patient use only" Start Date: 02/18/17 Stop Date: 02/19/17 Status: Discontinued insulin glargine 100 units/mL subcutaneous solution 18 unit, SUB-Q, Daily, 0 Refill(s) Start Date: 02/19/17 Status: Suspended insulin lispro 8 unit, 0.08 mL, Route: SUB-Q, Drug form: SOLN, TID-Before Meals, Dosing Weight 97.727, kg, PRN Blood Glucose Results, Start date: 02/15/17 14:49:00 DOLLY PUSHER, Durati on: 30 day, Stop date: 03/17/17 14:48:00 DOLLY PUSHER Notes: Roll in palms of hands gently; [...] Blood Glucose Results, Start date: 02/15/17 14:49:00 DOLLY PUSHER, Durati on: 30 day, Stop date: 03/17/17 14:48:00 DOLLY PUSHER Notes: Roll in palms of hands gently; [...] Blood Glucose Results, Start date: 02/15/17 14:49:00 DOLLY PUSHER, Durati on: 30 day, Stop date: 03/17/17 14:48:00 DOLLY PUSHER Notes: Roll in palms of hands gently; [...] Blood Glucose Results, Start date: 02/15/17 14:49:00 DOLLY PUSHER, Durati on: 30 day, Stop date: 03/17/17 14:48:00 DOLLY PUSHER Notes: Roll in palms of hands gently; [...] Blood Glucose Results, Start date: 02/15/17 14:49:00 DOLLY PUSHER, Durati on: 30 day, Stop date: 03/17/17 14:48:00 DOLLY PUSHER Notes: Roll in palms of hands gently; [...] Glucose Results, 0 Refill(s) Start Date: 02/19/17 Status: Suspended insulin lispro 100 units/mL subcutaneous injection 8 unit, SUB-Q, TID-Before Meals, PRN Blood Glucose Results, 0 Refill(s) Start Date: 02/19/17 Status: Suspended insulin lispro 100 units/mL subcutaneous injection 6 unit, SUB-Q, TID-Before Meals, PRN Blood Glucose Results, 0 Refill(s) Start Date: 02/19/17 Status: Suspended insulin lispro 100 units/mL subcutaneous injection 4 unit, SUB-Q, TID-Before Meals, PRN Blood Glucose Results, 0 Refill(s) Start Date: 02/19/17 Status: Suspended insulin lispro 100 units/mL subcutaneous injection 2 unit, SUB-Q, TID-Before Meals, PRN Blood Glucose Results, 0 Refill(s) Start Date: 02/19/17 Status: Suspended Lasix 40 mg, 1 tab, Route: PO, Drug form: TAB, BID Diuretic, Dosing Weight 110.909, kg , Start date: 02/16/17 20:00:00 DOLLY PUSHER, Duration: 30 day, Stop date: 03/18/17 16:00 :00 DOLLY PUSHER Notes: (Same as: Lasix) May cause GI upset. Give with food or milk. Start Date: 02/16/17 Stop Date: 02/20/17 Status: Discontinued Levemir 10 unit, Route: SUB-Q, Daily, Dosing Weight 110.909, kg, Start date: 02/18/17 10 :30:00 DOLLY PUSHER, Duration: 30 day, Stop date: 03/20/17 9:00:00 DOLLY PUSHER Start Date: 02/18/17 Stop Date: 02/18/17 Status: Deleted Lipitor 40 mg, 1 tab, Route: PO, Drug form: TAB, Bedtime, Dosing Weight 97.727, kg, Star t date: 02/15/17 21:00:00 DOLLY PUSHER, Duration: 30 day, Stop date: 03/16/17 21:00:00 CS T Notes: (Same as: Lipitor) Start Date: 02/15/17 Stop Date: 02/20/17 Status: Discontinued magnesium sulfate 2 gm in Water 50 ml 2 gm, 50 mL, Route: IVPB, Drug form: INJ, ONCE, Dosing Weight 110.909, kg, Start date: 02/19/17 7:09:00 DOLLY PUSHER, Stop date: 02/19/17 7:09:00 DOLLY PUSHER Notes: WASTE: F/P - Sink; E - Municipal Trash Bin Start Date: 02/19/17 Stop Date: 02/19/17 Status: Completed metoprolol tartrate 12.5 mg, 0.5 tab, Route: PO, Drug form: TAB, Q12H, Dosing Weight 97.727, kg, Sta rt date: 02/15/17 21:00:00 DOLLY PUSHER, Duration: 30 day, Stop date: 03/17/17 9:00:00 CS T Notes: (Same as: Lopressor) Start Date: 02/15/17 Stop Date: 02/20/17 Status: Discontinued metoprolol tartrate 25 mg oral tablet 12.5 mg=0.5 tab, PO, Q12H, 0 Refill(s) Start Date: 02/19/17 Status: Suspended morphine Sulfate 4 mg, Route: IVP, ONCE, Dosing Weight 97.727, kg, Priority: STAT, Start date: 10:58:00 DOLLY PUSHER, Stop date: 02/15/17 10:58:00 DOLLY PUSHER Start Date: 02/15/17 Stop Date: 02/15/17 Status: Completed morphine Sulfate 4 mg=1 mL, IV, Q4H, PRN Pain Score 6-10, 0 Refill(s) Start Date: 02/19/17 Status: Suspended morphine Sulfate 4 mg, 1 mL, Route: IV, Drug form: SOLN, Q6H, Dosing Weight 97.727, kg, PRN Pain Score 6-10, Start date: 02/15/17 18:36:00 DOLLY PUSHER, Duration: 30 day, Stop date: 08/25 18:35:00 DOLLY PUSHER Notes: (Same as:MORPhine Sulfate) Start Date: 02/15/17 Stop Date: 02/18/17 Status: Discontinued morphine Sulfate 4 mg, 1 mL, Route: IV, Drug form: SOLN, Q4H, Dosing Weight 110.909, kg, PRN Pain Score 6-10, Start date: 02/18/17 13:42:00 DOLLY PUSHER, Duration: 30 day, Stop date: 11/25 13:41:00 DOLLY PUSHER Notes: (Same as:MORPhine Sulfate) Start Date: 02/18/17 Stop Date: 02/20/17 Status: Discontinued [place] 7.5/325 oral tablet 1 tab, PO, Q4H, PRN Pain Score 4-6, 0 Refill(s) Start Date: 02/19/17 Status: Suspended [place] 7.5/325 oral tablet 1 tab, Route: PO, Drug Form: TAB, Dosing Weight 102.5, kg, Q4H, PRN Pain Score 4 -6, Start date: 02/19/17 18:07:00 DOLLY PUSHER, Duration: 30 day, Stop date: 03/21/17 18: 06:00 DOLLY PUSHER Notes: Same as [place] 325-7.5mg Do not exceed 4gm/day of acetaminophen. Start Date: 02/19/17 Stop Date: 02/20/17 Status: Discontinued ondansetron 4 mg, Route: IVP, Drug form: INJ, ONCE, Dosing Weight 97.727, kg, Priority: STAT , Start date: 02/15/17 10:58:00 DOLLY PUSHER, Stop date: 02/15/17 10:58:00 DOLLY PUSHER Start Date: 02/15/17 Stop Date: 02/15/17 Status: Completed ondansetron 4 mg, 2 mL, Route: IVP, Drug form: INJ, Q6H, Dosing Weight 110.909, kg, PRN Naus ea, Start date: 02/16/17 14:20:00 DOLLY PUSHER, Duration: 30 day, Stop date: 03/18/17 14: 19:00 DOLLY PUSHER Notes: (Same as: Chavo) MEDICATION WASTE Product Size: 4 mgProduct Was terrance: ___ mg Start Date: 02/16/17 Stop Date: 02/20/17 Status: Discontinued ondansetron 2 mg/mL injectable solution 4 mg=2 mL, IVP, Q6H, PRN Nausea, 0 Refill(s) Start Date: 02/19/17 Status: Suspended potassium chloride 40 mEq, 2 tab, Route: PO, Drug form: ERTAB, ONCE, Dosing Weight 102.5, kg, Start date: 02/19/17 16:25:00 DOLLY PUSHER, Stop date: 02/19/17 16:25:00 DOLLY PUSHER Notes: (Same as: K-Dur 20)"Do Not Crush" With food and full glass of water Start Date: 02/19/17 Stop Date: 02/19/17 Status: Completed potassium chloride 20 mEq/15 mL oral liquid 40 mEq, 30 mL, Route: PO, Drug form: LIQ, ONCE, Dosing Weight 110.909, kg, Start date: 02/18/17 9:03:00 DOLLY PUSHER, Stop date: 02/18/17 9:03:00 DOLLY PUSHER Notes: (Same as: Potassium Chloride) Start Date: 02/18/17 Stop Date: 02/18/17 Status: Completed Rocephin + sterile water 10 mL 1 gm, Route: IVPB, [id number], Dosing Weight 97.727, kg, Start date: 02/16/17 13:00 :00 DOLLY PUSHER, Duration: 5 day, Stop date: 02/20/17 13:00:00 DOLLY PUSHER, ABX Indication: Pneu monia Notes: (Same As: [...] Weight 97.727 kg, Start date: 02/15/17 18:00:00 DOLLY PUSHER, Dur ation: 1 doses or times Start Date: 02/15/17 Stop Date: 02/20/17 Status: Discontinued Sodium Chloride 0.9% IV 750 mL 750 mL, Rate: 75 ml/hr, Infuse over: 10 hr, Route: IV, Dosing Weight 97.727 kg, Total Volume: 750, Start date: 02/15/17 17:59:00 DOLLY PUSHER, Duration: 24 hr, Stop date : 02/16/17 17:58:00 DOLLY PUSHER, 2.29, m2 Start Date: 02/15/17 Stop Date: 02/16/17 Status: Completed Xanax 0.25 mg oral tablet 0.25 mg=1 tab, PO, Q12H, PRN Anxiety, 0 Refill(s) Start Date: 02/19/17 Status: Suspended Xanax 0.25 mg oral tablet 0.25 mg, 1 tab, Route: PO, Drug form: TAB, Q12H, Dosing Weight 110.909, kg, PRN Anxiety, Start date: 02/17/17 17:24:00 DOLLY PUSHER, Duration: 30 day, Stop date: 8 17:23:00 DOLLY PUSHER Notes: With food or milk(Same as: Xanax) [...] UA Blood [Negative] 40 mg/dL *ABN* (02/15/17 11: AM) UA Ketones [Negative mg/dL] Negative mg/dL (02/15/17 11:19 AM) UA Protein [Negative mg/dL] <=1.0 mg/dL *NA* (02/15/17 11: AM) UA Urobilinogen [0.1-1.0 mg/dL] Negative *NA* [...] % (02/17/17 5:44 AM) RDW [11.5-14.5 %] 167 K/CMM (02/19/17 8:55 AM) 154 K/CMM (02/18/17 7:25 AM) 181 K/CMM (02/17/17 5:44 AM) Platelet [133-450 K/CMM] 9.4 fL (02/19/17 8:55 AM) 9.2 fL (02/18/17 7:25 AM) 9.2 fL (02/17/17 5:44 AM) MPV [7.4-10.4 fL] 45.0 % (02/18/17 7:25 AM) 53.0 % [...] Reg Smoking Cessation Counseling No entered on: 02/20/17 Assessment and Plan Extracted from: Title: Cardiology [...] agreed for CABG and wants this at [facility]. Will transfer to [facility] for CABG with Dr Saez. Await beds [...] BID Adam Ivory MD on 02/19/2017 16:30 DOLLY PUSHER
--- OUTSIDE RECORDS SUMMARY | 2018-08-08 21:14 | XMS REPORT | Summary of Care ---
Author Author [facility] Organization [facility] Address Unknown Phone Unavailable Encounter SAMANTHA Mckinney(ZORAIDA) [id number] Date(s): 06/03/17 - 06/03/17 [facility] [address] [place] [address]- [phone] Discharge Disposition: Home or Self Care Attending Physician: Adam Cronin MD Referring Physician: Adam Cronin MD Vital Signs Most recent to 1 oldest [Reference Range]: Height 193.04 cm (06/03/17 1:26 PM) Blood Pressure 131/84 mmHg [90-140/60-90 mmHg] (06/03/17 1:26 PM) Respiratory Rate 18 BRMIN [14-20 BRMIN] (06/03/17 1:26 PM) Peripheral Pulse 89 bpm Rate [60-100 bpm] (06/03/17 1:26 PM) Weight 98.636 kg (06/03/17 1:26 PM) Body Mass Index 26.47 m2 (06/03/17 1:26 PM) Problem List Condition Effective Dates Status Health Status Informant Diabetes(Confirmed) Resolved Hypercholesteremia(C Resolved onfirmed) Hypertension(Confirm Resolved ed) Allergies, Adverse Reactions, Alerts Substance Reaction Severity Status Levaquin Active Medications Entresto 49 mg-51 mg oral tablet 1 tab, PO, BID, # 56 tab Start Date: 06/03/17 Stop Date: 07/01/17 Status: Ordered Toprol-XL 50 mg oral tablet, extended release 50 mg=1 tab, PO, Daily, # 30 tab Start Date: 06/03/17 Status: Ordered Results No data available for this section Immunizations Given and Recorded Vaccine Date Status [...] Smoking Cessation Counseling No entered on: 06/03/17 Assessment and Plan No data available for this section
--- OUTSIDE RECORDS SUMMARY | 2018-08-08 21:14 | XMS REPORT | Summary of Care ---
Author Author [facility] Organization [facility] Address Unknown Phone Unavailable Encounter HQ Hank(ZORAIDA) [id number] Date(s): 03/25/17 - 03/25/17 [facility] [address], [address] [place], [place] [address] Attending Physician: Parth Saez MD Referring Physician: Nicky Marte Vital Signs No data available for this section Problem List Condition Effective Dates Status Health Status Informant Diabetes(Confirmed) Resolved Hypercholesteremia(C Resolved onfirmed) Hypertension(Confirm Resolved ed) Allergies, Adverse Reactions, Alerts Substance Reaction Severity Status Levaquin Active Medications No data available for this section Results No data available for this section [...]
--- OUTSIDE RECORDS SUMMARY | 2018-08-08 21:14 | XMS REPORT | Summary of Care ---
Author Author [facility] Organization [facility] Address Unknown Phone Unavailable Encounter SAMANTHA Mckinney(ZORAIDA) [id number] Date(s): 05/20/17 - 05/20/17 [facility] [address] [place] [address] [phone] Discharge Disposition: Home or Self Care Attending Physician: Adam Cronin MD Referring Physician: Adam Cronin MD Vital Signs Most recent to 1 oldest [Reference Range]: Height 193.04 cm (05/20/17 1:54 PM) Blood Pressure 140/88 mmHg [90-140/60-90 mmHg] (05/20/17 1:54 PM) Respiratory Rate 18 BRMIN [14-20 BRMIN] (05/20/17 1:54 PM) Peripheral Pulse 72 bpm Rate [60-100 bpm] (05/20/17 1:54 PM) Weight 99.545 kg (05/20/17 1:54 PM) Body Mass Index 26.71 m2 (05/20/17 1:54 PM) Problem List Condition Effective Dates Status Health Status Informant Diabetes(Confirmed) Resolved Hypercholesteremia(C Resolved onfirmed) Hypertension(Confirm Resolved ed) Allergies, Adverse Reactions, Alerts Substance Reaction Severity Status Levaquin Active Medications Entresto 24 mg-26 mg oral tablet 1 tab, PO, BID, # 60 tab, 3 Refill(s), Pharmacy: [id number] Start Date: 05/20/17 Stop Date: 09/09/17 Status: Ordered Lipitor 40 mg oral tablet 40 mg=1 tab, PO, Bedtime, # 30 tab, 3 Refill(s), Pharmacy: [facility] [id number] Start Date: 05/20/17 Status: Ordered metFORMIN 500 mg oral tablet 500 mg=1 tab, PO, BID-Meals, # 60 tab, 1 Refill(s), Pharmacy: [id number] Start Date: 05/20/17 Status: Ordered Toprol-XL 25 mg oral tablet, extended release 25 mg=1 tab, PO, Daily, # 30 tab, 3 Refill(s), Pharmacy: [id number] Start Date: 05/20/17 Status: Ordered Results No data available for [...] No entered on: 05/20/17 Assessment and Plan No data available for this section
--- OUTSIDE RECORDS SUMMARY | 2018-08-08 21:14 | XMS REPORT | Summary of Care ---
Author Author [facility] Organization [facility] Address Unknown Phone Unavailable Encounter SAMANTHA Mckinney(ZORAIDA) [id number] Date(s): 06/03/17 - 06/03/[address] [address]- Discharge Disposition: Home or Self Care Attending Physician: Adam Cronin MD Referring Physician: Adam Cronin MD Vital Signs Most recent to 1 oldest [Reference Range]: Height 193.04 cm (06/03/17 10:54 AM) Weight 98.636 kg (06/03/17 10:54 AM) Body Mass Index 26.47 m2 (06/03/17 10:54 AM) Problem List Condition Effective Dates Status Health Status Informant Diabetes(Confirmed) Resolved Hypercholesteremia(C Resolved onfirmed) Hypertension(Confirm Resolved ed) Allergies, Adverse Reactions, Alerts Substance Reaction Severity Status Levaquin Active Medications No data available for this section Results ELECTROLYTES Most recent to 1 oldest [Reference Range]: Sodium Lvl [135-145 139 mEq/L mEq/L] (06/03/17 2:30 PM) Potassium Lvl 5.0 mEq/L [3.5-5.1 mEq/L] (06/03/17 2:30 PM) Chloride Lvl [95-109 103 mEq/L mEq/L] (06/03/17 2:30 PM) CO2 [24-32 mEq/L] 29 mEq/L (06/03/17 2:30 PM) AGAP [10.0-20.0 12.0 mEq/L mEq/L] (06/03/17 2:30 PM) CHEM PANEL Most recent to 1 oldest [Reference Range]: Creatinine Lvl 1.57 mg/dL [0.50-1.40 mg/dL] *HI* (06/03/17 2:30 PM) eGFR 46 mL/min/1.73m2 1 *NA* (06/03/17 2:30 PM) BUN [7-22 mg/dL] 32 mg/dL *HI* (06/03/17 2:30 PM) Glucose Lvl [70-99 159 mg/dL mg/dL] *HI* (06/03/17 2:30 PM) Calcium Lvl 9.7 mg/dL [8.5-10.5 mg/dL] (06/03/17 2:30 PM) 1Result Comment: The eGFR is calculated using [...] tiplied by the estimated BMI. CARDIAC ENZYMES Most recent to 1 oldest [Reference Range]: BNP [<=100 pg/mL] 976 pg/mL *HI* (06/03/17 2:30 PM) HEMATOLOGY Most recent to 1 oldest [Reference Range]: WBC [3.7-10.4 K/CMM] 6.2 K/CMM (06/03/17 2:30 PM) RBC [4.70-6.10 4.43 M/CMM M/CMM] *LOW* (06/03/17 2:30 PM) Hgb [14.0-18.0 g/dL] 15.6 g/dL (06/03/17 2:30 PM) Hct [42.0-54.0 %] 45.8 % (06/03/17 2:30 PM) MCV [80.0-94.0 fL] 103.3 fL *HI* (06/03/17 2:30 PM) MCH [27.0-31.0 pg] 35.2 pg *HI* (06/03/17 2:30 PM) MCHC [32.0-36.0 34.1 g/dL g/dL] (06/03/17 2:30 PM) RDW [11.5-14.5 %] 16.4 % *HI* (06/03/17 2:30 PM) MPV [7.4-10.4 fL] 9.0 fL (06/03/17 2:30 PM) Platelet [133-450 173 K/CMM K/CMM] (06/03/17 2:30 PM) Segs [45.0-75.0 %] 38.6 % *LOW* (06/03/17 2:30 PM) Lymphocytes 39.3 % [20.0-40.0 %] (06/03/17 2:30 PM) Monocytes [2.0-12.0 14.3 % %] *HI* (06/03/17 2:30 PM) Eosinophils [0.0-4.0 5.3 % %] *HI* (06/03/17 2:30 PM) Basophils [0.0-1.0 2.5 % %] *HI* (06/03/17 2:30 PM) Segs-Bands # 2.4 K/CMM [1.5-8.1 K/CMM] (06/03/17 2:30 PM) Lymphocytes # 2.4 K/CMM [1.0-5.5 K/CMM] (06/03/17 2:30 PM) Monocytes # [0.0-0.8 0.9 K/CMM K/CMM] *HI* (06/03/17 2:30 PM) Eosinophils # 0.3 K/CMM [0.0-0.5 K/CMM] (06/03/17 2:30 PM) Basophils # [0.0-0.2 0.2 K/CMM K/CMM] (06/03/17 2:30 PM) Immunizations Given and Recorded Vaccine Date Status [...]
--- OUTSIDE RECORDS SUMMARY | 2018-08-08 21:15 | XMS REPORT | Summary of Care ---
Author Author [facility] Organization [facility] Address Unknown Phone Unavailable Encounter SAMANTHA Mckinney(ZORAIDA) [id number] Date(s): 02/20/17 - 03/07/17 [facility] [address] [employer] provided by [facility] [employer] [facility] [place] [address]- Encounter Diagnosis Non-ST elevation (NSTEMI) myocardial infarction (Final) - 03/22/17 Acute systolic (congestive) heart failure (Final) - Cardiogenic shock (Final) - Respiratory failure, unspecified with hypercapnia (Final) - Hypertensive heart disease with heart failure (Final) - Encephalopathy, unspecified (Final) - Ventricular fibrillation (Final) - Ventricular tachycardia (Final) - Acute posthemorrhagic anemia (Final) - Acidosis (Final) - Other specified coagulation defects (Final) - Stenosis of other vascular prosthetic devices, implants and grafts, initial enco unter (Final) - Intraoperative hemorrhage and hematoma of a circulatory system organ or structur e complicating a cardiac bypass (Final) - Thrombocytopenia, unspecified (Final) - Hyperlipidemia, unspecified (Final) - Ischemic cardiomyopathy (Final) - Atherosclerotic heart disease of [place] coronary artery without angina pectoris (Final) - Presence of coronary angioplasty implant and graft (Final) - Type 2 diabetes mellitus without complications (Final) - group home (current) use of oral hypoglycemic drugs (Final) - Allergy status to other antibiotic agents status (Final) - Surgical operation with implant of artificial internal device as the cause of ab normal reaction of the patient, or of later complication, without mention of mis adventure at the time of the procedure (Final) - Nonrheumatic aortic (valve) stenosis (Final) - Postprocedural hypotension (Final) - Physical restraint status (Final) - Other specified peripheral vascular diseases (Final) - Restlessness and agitation (Final) - Surgical operation with anastomosis, bypass or graft as the cause of abnormal re action of the patient, or of later complication, without mention of misadventure at the time of the procedure (Final) - Personal history of urinary calculi (Final) - Encounter for immunization (Final) - Discharge Disposition: Home or Self Care Attending Physician: Parth Saez MD Admitting Physician: Parth Saez MD Referring Physician: Adam Cronin MD Vital Signs 1 2 3 Most recent to oldest [Reference Range]: 193.04 cm (02/26/17 11:02 AM) 193.04 cm (02/26/17 10:00 AM) 193.04 cm (02/26/17 7:46 AM) Height 97.409 kg (03/07/17 4:23 AM) 99.261 kg (03/05/17 1:08 PM) 99.227 kg (03/04/17 2:48 AM) Current Weight 98 DegF (03/07/17 11:21 AM) 97.6 DegF (03/07/17 7:00 AM) 96.8 DegF (03/07/17 6:00 AM) Temperature Oral [96.4-99.1 DegF] 134/89 mmHg (03/07/17 4:00 PM) 137/76 mmHg (03/07/17 3:00 PM) 114/72 mmHg (03/07/17 1:44 PM) Blood Pressure [90-140/60-90 mmHg] 18 BRMIN (03/07/17 4:00 PM) 19 BRMIN (03/07/17 3:00 PM) 17 BRMIN (03/07/17 11:21 AM) Respiratory Rate [14-20 BRMIN] 73 bpm (02/23/17 6:00 AM) 66 bpm (02/23/17 12:39 AM) 73 bpm (02/22/17 8:38 PM) Peripheral Pulse Rate [60-100 bpm] 100.909 kg (02/20/17 2:11 AM) Weight 27.08 m2 (02/20/17 2:11 AM) Body Mass Index Problem List Condition Effective Dates Status Health Status Informant Diabetes(Confirmed) Resolved Hypercholesteremia(C Resolved onfirmed) Hypertension(Confirm Resolved ed) Allergies, Adverse Reactions, Alerts Substance Reaction Severity Status Levaquin Active Medications acetaminophen 650 mg, 2 tab, Route: PO, Drug form: TAB, Q4H, Dosing Weight 100.909, kg, PRN Pa in 1-3/Temp > 100.4 F, Start date: 02/23/17 17:44:00 CARGOMAN, Duration: 30 day, Stop date: 03/25/17 17:43:00 CARGOMAN Notes: Do not exceed 4 gm/day. (Same as: Tylenol) Start Date: 02/23/17 Stop Date: 03/07/17 Status: Discontinued acetaminophen 650 mg, 1 supp, Route: W[place], Drug form: SUPP, Q4H, Dosing Weight 100.909, kg, PRN Pain Score 1-3, Start date: 02/23/17 17:44:00 CARGOMAN, Duration: 30 day, Stop date: 03/25/17 17:43:00 CARGOMAN Notes: Max yphrowtfttyld=8212 mg/day (4 gm/day). (Same as: Tylenol) Start Date: 02/23/17 Stop Date: 03/07/17 Status: Discontinued acetaminophen-10 mg/mL INTRAVENOUS solution 1,000 mg, 100 mL, Route: IV, Drug form: INJ, ONCE, Dosing Weight 100.909, kg, Fo r > or=50 kg, Start date: 02/27/17 3:06:00 CARGOMAN, Stop date: 02/27/17 3:06:00 CARGOMAN Notes: Infuse over 15 minutesDo not exceed 4gm/day of acetaminophen MEDICAT ION WASTE Product Size: 1000 mgProduct Wasted: ___ mg Start Date: 02/27/17 Stop Date: 02/27/17 Status: Completed acetaminophen-hydrocodone 325 mg-10 mg oral tablet 2 tab, Route: PO, Drug Form: TAB, Dosing Weight 100.909, kg, Q4H, PRN Pain Score 4-6, Start date: 02/23/17 17:44:00 CARGOMAN, Duration: 4 day, Stop date: 02/27/17 17 :43:00 CARGOMAN Notes: Do not exceed 4gm/day of acetaminophen. (Same as: [place] 325/10) Start Date: 02/23/17 Stop Date: 02/27/17 Status: Completed acetaminophen-hydrocodone 325 mg-10 mg oral tablet 1 tab, Route: PO, Drug Form: TAB, Dosing Weight 100.909, kg, Q4H, PRN Pain Score 1-3, Start date: 02/23/17 17:44:00 CARGOMAN, Duration: 4 day, Stop date: 02/27/17 17 :43:00 CARGOMAN Notes: Do not exceed 4gm/day of acetaminophen. (Same as: [place] 325/10) Start Date: 02/23/17 Stop Date: 02/27/17 Status: Completed albumin human 25% intravenous solution 25 gm, Route: IV, ONCE, Dosing Weight 100.909, kg, Start date: 02/23/17 20:27:00 CARGOMAN, Stop date: 02/23/17 20:27:00 CARGOMAN Start Date: 02/23/17 Stop Date: 02/23/17 Status: Completed albumin human 25% intravenous solution 25 gm, 100 mL, Route: IV, Drug form: INJ, ONCE, Dosing Weight 100.909, kg, Start date: 02/23/17 21:08:00 CARGOMAN, Stop date: 02/23/17 21:08:00 CARGOMAN Notes: Lot #: Mfg: (Same as: [id number]-[id number])"blood pr oduct derivative"WASTE: F/P - Red; E -Red MEDICATION WASTE Product Size: 25 gmProduct Wasted: _0_ gm Start Date: 02/23/17 Stop Date: 02/23/17 Status: Completed albumin human 5% intravenous solution 12.5 gm, 250 mL, 500 ml/hr, Route: IV, Drug Form: INJ, Dosing Weight 100.909, kg , ONCE, Start date: 02/24/17 11:21:00 CARGOMAN, Stop date: 02/24/17 11:21:00 CARGOMAN Notes: LOT#: Mfg: WASTE: F/P - Red; E -Red (Same a s: Albuminar)"blood product derivative" Start Date: 02/24/17 Stop Date: 02/24/17 Status: Completed Amicar + Sodium Chloride 0.9% IV 100 mL 5 gm, 20 mL, Route: IVPB, Drug form: INJ, ONCE, Dosing Weight 100.909, kg, Start date: 02/23/17 18:21:00 CARGOMAN, Stop date: 02/23/17 18:21:00 CARGOMAN Notes: (Same as: Amicar) Start Date: 02/23/17 Stop Date: 02/23/17 Status: Completed Amicar + Sodium Chloride 0.9% IV 250 mL 5 gm, 20 mL, Route: IVPB, Drug form: INJ, ONCE, Dosing Weight 100.909, kg, Start date: 02/23/17 18:21:00 CARGOMAN, Stop date: 02/23/17 18:21:00 CARGOMAN Notes: (Same as: Amicar) Start Date: 02/23/17 Stop Date: 02/23/17 Status: Completed aspirin 81 mg tablet, chewable 81 mg, 1 tab, Route: PO, Drug form: CHEWTAB, Daily, Dosing Weight 100.909, kg, S tart date: 02/25/17 13:00:00 CARGOMAN, Duration: 30 day, Stop date: 03/27/17 9:00:00 CARGOMAN Notes: Take with food. Start Date: 02/25/17 Stop Date: 03/07/17 Status: Discontinued aspirin 81 mg tablet, enteric coated 81 mg, 1 tab, Route: PO, Drug form: ECTAB, Daily, Dosing Weight 100.909, kg, Sta rt date: 02/20/17 9:00:00 CARGOMAN, Duration: 30 day, Stop date: 03/21/17 9:00:00 CARGOMAN Notes: Do not crush or chew.(Same As: Ecotrin) Start Date: 02/20/17 Stop Date: 02/25/17 Status: Discontinued atorvastatin 80 mg, 1 tab, Route: PO, Drug form: TAB, Bedtime, Dosing Weight 100.909, kg, Sta rt date: 02/20/17 21:00:00 CARGOMAN, Duration: 30 day, Stop date: 03/21/17 21:00:[address] Notes: Same as Lipitor Start Date: 02/20/17 Stop Date: 03/07/17 Status: Discontinued Benadryl 25 mg, 0.5 mL, Route: IVP, Drug form: INJ, ONCE, Dosing Weight 100.909, kg, PRN Itching, Start date: 02/24/17 8:42:00 CARGOMAN Notes: (Same as: Benadryl) Start Date: 02/24/17 Stop Date: 02/24/17 Status: Completed calcium gluconate (ANES) Route: IV, Drug form: INJ, ONCE, Stop date: 02/23/17 14:29:00 CARGOMAN Start Date: 02/23/17 Stop Date: 02/23/17 Status: Completed calcium gluconate + Sodium Chloride 0.9% IV 150 mL 3 gm, 30 mL, Route: IVPB, PRN, Dosing Weight 100.909, kg, PRN Abnormal Lab Resul t, For NON-ICU Patients Only., Start date: 02/20/17 6:19:00 CARGOMAN, Duration: 30 da y, Stop date: 03/22/17 6:18:00 CARGOMAN Notes: WASTE: F/P - Sink; E - Municipal Trash Bin Start Date: 02/20/17 Stop Date: 03/07/17 Status: Discontinued calcium gluconate + Sodium Chloride 0.9% IV 80 mL 2 gm, 20 mL, Route: IVPB, PRN, Dosing Weight 100.909, kg, PRN Abnormal Lab Resul t, For NON-ICU Patients Only., Start date: 02/20/17 6:19:00 CARGOMAN, Duration: 30 da y, Stop date: 03/22/17 6:18:00 CARGOMAN Notes: WASTE: F/P - Sink; E - Municipal Trash Bin Start Date: 02/20/17 Stop Date: 03/07/17 Status: Discontinued Cardene 40 mg in NS 200 mL (Titrate.) IV 40 mg 40 mg, 200 mL, Rate: Titrate, Start Dose: 5 mg/hr, Titration: increase or decrea se by 5 but no more than 15, Goal(s): MAP 70, Route: IV, Dosing Weight 100.909 k g, Total Volume: 200 mL, Start date: 02/23/17 17:44:00 CARGOMAN, Duration: 30 day, St op date: ... Notes: Same as: CardeneConcentration: (0.2 mg /1 ml ) Start Date: 02/23/17 Stop Date: 02/24/17 Status: Discontinued ceFAZolin (ANES) Route: IV, Drug form: INJ, ONCE, Stop date: 02/23/17 8:58:00 CARGOMAN Start Date: 02/23/17 Stop Date: 02/23/17 Status: Completed ceFAZolin (SCIP) 2 gm, 20 mL, Route: IVPB, Drug form: SOLN, Q8Hnow, Dosing Weight 100.909, kg, St art date: 02/23/17 20:00:00 CARGOMAN, Duration: 3 doses or times, Stop date: 02/24/17 12:00:00 CARGOMAN, ABX Indication: Surgical Prophylaxis Notes: (Same as Ancef) Start Date: 02/23/17 Stop Date: 02/23/17 Status: Discontinued ceFAZolin (SCIP) 2 gm, Route: IVPB, Drug form: INJ, Q8H, Dosing Weight 100.909, kg, Start date: 0 02/24/17 0:00:00 CARGOMAN, Duration: 3 doses or times, Stop date: 02/24/17 16:00:00 CS T, ABX Indication: Surgical Prophylaxis Start Date: 02/24/17 Stop Date: 02/23/17 Status: Canceled ceFAZolin (SCIP) 2 gm, 20 mL, Route: IVPB, Drug form: SOLN, Q8Hnow, Dosing Weight 100.909, kg, St art date: 02/23/17 23:00:00 CARGOMAN, Duration: 3 doses or times, Stop date: 02/24/17 15:00:00 CARGOMAN, ABX Indication: Surgical Prophylaxis Notes: (Same as Ancef) Start Date: 02/23/17 Stop Date: 02/24/17 Status: Discontinued ceFAZolin + sterile water 20 mL 2 gm, Route: IVPB, ONCALL, Dosing Weight 100.909, kg, Start date: 02/22/17 19:00 :00 CARGOMAN, Duration: 1 doses or times, ABX Indication: Surgical Prophylaxis Notes: (Same As: Ancef, Kefzol) MEDICATION WASTE Product Size: 1000 mgP roduct Wasted: ___ mg Start Date: 02/22/17 Stop Date: 02/23/17 Status: Discontinued cefepime + sterile water 10 mL 1 gm, Route: IVPB, [id number], Dosing Weight 100.909, kg, (CrCl 30 - 49 ml/min), St art date: 02/24/17 10:00:00 CARGOMAN, Duration: 10 day, Stop date: 03/05/17 22:00:00 CARGOMAN, ABX Indication: Immunocompromised Host Prophylaxis Notes: (Same As: Maxipime) MEDICATION WASTE Product Size: 1000 mgProduc t Wasted: ___ mg Start Date: 02/24/17 Stop Date: 03/01/17 Status: Discontinued chlorhexidine topical 0.12% liquid 15 mL, Route: Swab Mouth, PRN, Drug form: LIQ, PRN Other -See Comment, Start edgardo e: 02/23/17 18:27:00 CARGOMAN, Duration: 30 day, Stop date: 03/25/17 18:26:00 CARGOMAN Notes: (Same As: Peridex) Start Date: 02/23/17 Stop Date: 03/01/17 Status: Discontinued chlorhexidine topical 0.12% liquid 15 mL, Route: Swab Mouth, Q12H, Drug form: LIQ, Start date: 02/23/17 21:00:00 CS T, Duration: 30 day, Stop date: 03/25/17 9:00:00 CARGOMAN Notes: (Same As: Peridex) Start Date: 02/23/17 Stop Date: 03/01/17 Status: Discontinued clopidogrel 75 mg, 1 tab, Route: PO, Drug form: TAB, Daily, Dosing Weight 100.909, kg, Start date: 03/02/17 9:00:00 CARGOMAN, Duration: 30 day, Stop date: 03/31/17 9:00:00 CARGOMAN Notes: (Same As: Plavix) Start Date: 03/02/17 Stop Date: 03/07/17 Status: Discontinued clopidogrel 75 mg oral tablet 75 mg=1 tab, PO, Daily, # 30 tab, 2 Refill(s) Start Date: 03/07/17 Status: Ordered codeine-guaiFENesin 10 mg-100 mg/5 mL oral syrup 10 mL, Route: PO, Drug Form: LIQ, Dosing Weight 100.909, kg, Q6H, PRN Cough/Shaheed estion, Start date: 02/22/17 13:31:00 CARGOMAN, Duration: 30 day, Stop date: 03/24/17 13:30:00 CARGOMAN Notes: (Same As: Robitussin AC) Start Date: 02/22/17 Stop Date: 03/07/17 Status: Discontinued Colace 100 mg oral capsule 100 mg, 1 cap, Route: PO, Drug form: CAP, BID, Dosing Weight 100.909, kg, Start date: 02/24/17 9:00:00 CARGOMAN, Duration: 30 day, Stop date: 03/25/17 17:00:00 CARGOMAN Notes: (Same as: Colace) (Do Not Crush) Start Date: 02/24/17 Stop Date: 02/25/17 Status: Discontinued dexmedetomidine 400 microgram in NS 100 mL (Titrate.) IV 400 microgram + Sodium Chloride 0.9% IV 96 400 microgram, 4 mL, Rate: Titrate, Start Dose: 0.2 microgram/kg/hr, Titration: 0.1 microgram/kg/hr every 30 min, Goal(s): comfort, Max Dose: 0.5 microgram/kg/h r, Route: IV, Dosing Weight 100.909 kg, Total Volume: 100, Start date: 02/26/17 16:28:00 CS... Start Date: 02/26/17 Stop Date: 03/01/17 Status: Discontinued Dextrose 50% Syringe 25 gm, 50 mL, Route: IVP, Drug Form: INJ, Dosing Weight 100.909, kg, PRN, PRN Bl ood Glucose Results, Start date: 02/26/17 17:39:00 CARGOMAN, Duration: 30 day, Stop d ate: 03/28/17 17:38:00 CARGOMAN Start Date: 02/26/17 Stop Date: 03/07/17 Status: Discontinued Dextrose 50% Syringe 12.5 gm, 25 mL, Route: IVP, Drug Form: INJ, Dosing Weight 100.909, kg, PRN, PRN Blood Glucose Results, Start date: 02/26/17 17:39:00 CARGOMAN, Duration: 30 day, Stop date: 03/28/17 17:38:00 CARGOMAN Start Date: 02/26/17 Stop Date: 03/07/17 Status: Discontinued Dextrose 50% Syringe 12.5 gm, 25 mL, Route: IVP, Drug Form: INJ, Dosing Weight 100.909, kg, PRN, PRN Blood Glucose Results, Start date: 02/23/17 17:44:00 CARGOMAN, Duration: 30 day, Stop date: 03/25/17 17:43:00 CARGOMAN Start Date: 02/23/17 Stop Date: 03/04/17 Status: Discontinued Dextrose 50% Syringe 25 gm, 50 mL, Route: IVP, Drug Form: INJ, Dosing Weight 100.909, kg, PRN, PRN Bl ood Glucose Results, Start date: 02/23/17 17:44:00 CARGOMAN, Duration: 30 day, Stop d ate: 03/25/17 17:43:00 CARGOMAN Start Date: 02/23/17 Stop Date: 03/04/17 Status: Discontinued Dextrose 50% Syringe 12.5 gm, 25 mL, Route: IVP, Drug Form: INJ, Dosing Weight 100.909, kg, PRN, PRN Blood Glucose Results, Start date: 02/20/17 6:25:00 CARGOMAN, Duration: 30 day, Stop date: 03/22/17 6:24:00 CARGOMAN Start Date: 02/20/17 Stop Date: 02/23/17 Status: Discontinued Dextrose 50% Syringe 25 gm, 50 mL, Route: IVP, Drug Form: INJ, Dosing Weight 100.909, kg, PRN, PRN Bl ood Glucose Results, Start date: 02/20/17 6:25:00 CARGOMAN, Duration: 30 day, Stop da te: 03/22/17 6:24:00 CARGOMAN Start Date: 02/20/17 Stop Date: 02/23/17 Status: Discontinued diphenhydrAMINE 25 mg, 0.5 mL, Route: IVP, Drug form: INJ, ONCE, Dosing Weight 100.909, kg, PRN Itching, Start date: 02/21/17 11:41:00 CARGOMAN Notes: (Same as: Benadryl) Start Date: 02/21/17 Stop Date: 02/21/17 Status: Completed diphenhydrAMINE 25 mg, 0.5 mL, Route: IVP, Drug form: INJ, Q8H, Dosing Weight 100.909, kg, PRN I tching, Start date: 02/25/17 11:34:00 CARGOMAN, Duration: 30 day, Stop date: 03/27/17 11:33:00 CARGOMAN Notes: (Same as: Benadryl) Start Date: 02/25/17 Stop Date: 03/07/17 Status: Discontinued diphenhydrAMINE 25 mg, 0.5 mL, Route: IVP, Drug form: INJ, ONCE, Dosing Weight 100.909, kg, PRN Itching, Start date: 02/24/17 13:34:00 CARGOMAN Notes: (Same as: Benadryl) Start Date: 02/24/17 Stop Date: 02/24/17 Status: Completed diphenhydrAMINE 25 mg, 1 cap, Route: PO, Drug form: CAP, TID, Dosing Weight 100.909, kg, PRN Itc macario, Start date: 02/25/17 11:26:00 CARGOMAN, Duration: 30 day, Stop date: 03/27/17 1 1:25:00 CARGOMAN Notes: (Same as: Benadryl) Start Date: 02/25/17 Stop Date: 03/07/17 Status: Discontinued docusate sodium 100 mg oral capsule 100 mg, 1 cap, Route: PO, Drug form: CAP, BID, Dosing Weight 100.909, kg, Start date: 02/25/17 17:00:00 CARGOMAN, Stop date: 03/27/17 9:00:00 CARGOMAN Notes: (Same as: Colace) (Do Not Crush) Start Date: 02/25/17 Stop Date: 03/07/17 Status: Discontinued Entresto 24 mg-26 mg oral tablet 1 tab, Route: PO, Drug Form: TAB, Dosing Weight 100.909, kg, Q12H, Start date: 0 02/20/17 9:00:00 CARGOMAN, Duration: 30 day, Stop date: 03/21/17 21:00:00 CARGOMAN Notes: (Same as: Entresto)Avoid in patients with history of angioedema due to AC E inhibitor or ARB therapy. Do not use concomitantly or within 36 hours of STEPHEN inhibitors Start Date: 02/20/17 Stop Date: 02/23/17 Status: Discontinued EPINEPHrine (ANES) Route: IV, Drug form: INJ, ONCE, Stop date: 02/23/17 14:24:00 CARGOMAN Start Date: 02/23/17 Stop Date: 02/23/17 Status: Completed EPINEPHrine 8 mg in NS 250 mL (Titrate.) IV 8 mg + Sodium Chloride 0.9% IV 242 m L 8 mg, 8 mL, Rate: Titrate for MAP of 60, Start Dose: 2 microgram/min, Titration: For MAP of 60, Goal(s): MAP of 60, Route: IV, Dosing Weight 100.909 kg, Total V olume: 250, Start date: 02/23/17 18:40:00 CARGOMAN, Duration: 30 day, Stop date: 03/11 06/25 18:39:... Start Date: 02/23/17 Stop Date: 03/01/17 Status: Discontinued famotidine 20 mg, 2 mL, Route: IVP, Drug form: INJ, ONCE, Dosing Weight 100.909, kg, Start date: 02/25/17 11:25:00 CARGOMAN, Stop date: 02/25/17 11:25:00 CARGOMAN Notes: (Same as: Pepcid)Can be dilute in 5-10cc NS IVP: Slow IV push over at le ast 2 minutes. Start Date: 02/25/17 Stop Date: 02/25/17 Status: Completed famotidine 20 mg, 2 mL, Route: IVP, Drug form: INJ, Q12H, Dosing Weight 100.909, kg, Start date: 02/25/17 21:00:00 CARGOMAN, Duration: 30 day, Stop date: 03/27/17 9:00:00 CARGOMAN Notes: (Same as: Pepcid)Can be dilute in 5-10cc NS IVP: Slow IV push over at le ast 2 minutes. Start Date: 02/25/17 Stop Date: 03/01/17 Status: Discontinued fentaNYL (ANES) Route: IV, Drug form: INJ, ONCE, Stop date: 02/23/17 8:53:00 CARGOMAN Start Date: 02/23/17 Stop Date: 02/23/17 Status: Completed fentaNYL (PF) 20 mcg/ml [employer] (600 microgram /30 mL) 600 microgram 600 microgram, 30 mL, Route: IV, [employer] Dose: 10 mcg, [employer] Lockout: 10 minutes, Cont inuous Basal Rate: 0 mg, 4 Hour Limit (In MCG): 240, Drug Form: INJ, Continuous, Start date: 02/23/17 17:44:00 CARGOMAN, Duration: 1 day, Stop date: 02/24/17 17:43:00 CARGOMAN Notes: Concentration is 20 micrograms/ml Start Date: 02/23/17 Stop Date: 02/24/17 Status: Completed fentaNYL 1000 microgram in 20 mL NS (Titrate.) IV 1,000 microgram 1,000 microgram, 20 mL, Rate: Titrate, Start Dose: 50 microgram/hr, Titration: 2 5 microgram/hour every 15 minutes, Goal(s): RASS -2, Max Dose: 300 microgram/hr, Route: IV, Dosing Weight 100.909 kg, Total Volume: 20, Start date: 02/23/17 18: 23:00 CARGOMAN,... Start Date: 02/23/17 Stop Date: 02/26/17 Status: Discontinued Ferrlecit + Sodium Chloride 0.9% IV 100 mL 125 mg, 10 mL, Route: IVPB, Daily, Dosing Weight 100.909, kg, Start date: 9:45:00 CARGOMAN, Duration: 30 day, Stop date: 04/01/17 9:00:00 CARGOMAN Notes: (sodium ferric gluconate complex (elemental iron) 62.5 mg/5 ml INJ)"Limit ed stability. Use immediately after admixture"(Same as: Ferrlecit) MEDICAT ION WASTE Product Size: 62.5 mgProduct Wasted: __0_ mg Start Date: 03/02/17 Stop Date: 03/07/17 Status: Discontinued fluconazole 400 mg, 200 mL, Route: IVPB, Drug form: INJ, [id number], Dosing Weight 100.909, kg, Start date: 02/24/17 10:00:00 CARGOMAN, Duration: 30 day, Stop date: 03/25/17 10:00: 00 CARGOMAN Notes: (Same as: Diflucan) Start Date: 02/24/17 Stop Date: 02/26/17 Status: Discontinued furosemide 20 mg oral tablet 20 mg=1 tab, PO, Daily, # 30 tab, 2 Refill(s) Start Date: 03/07/17 Stop Date: 04/13/17 Status: Deleted furosemide 40 mg oral tablet 40 mg, 4 mL, Route: IVP, Drug form: INJ, BID, Dosing Weight 100.909, kg, Start d ate: 02/20/17 17:00:00 CARGOMAN, Duration: 30 day, Stop date: 03/22/17 9:00:00 CARGOMAN Notes: (Same as: Lasix) MEDICATION WASTE Product Size: 40 mgProduct Was terrance: 0___ mg Start Date: 02/20/17 Stop Date: 02/23/17 Status: Discontinued furosemide 40 mg oral tablet 40 mg, 1 tab, Route: PO, Drug form: TAB, BID Diuretic, Dosing Weight 100.909, kg , Start date: 02/20/17 14:00:00 CARGOMAN, Duration: 30 day, Stop date: 03/22/17 6:00: 00 CARGOMAN Notes: (Same as: Lasix) May cause GI upset. Give with food or milk. Start Date: 02/20/17 Stop Date: 02/20/17 Status: Discontinued glucagon 1 mg, Route: IM, Drug form: PDR/INJ, PRN, Dosing Weight 100.909, kg, PRN Blood G lucose Results, Start date: 02/26/17 17:39:00 CARGOMAN, Duration: 30 day, Stop date: 03/28/17 17:38:00 CARGOMAN Start Date: 02/26/17 Stop Date: 03/07/17 Status: Discontinued glucagon 1 mg, Route: IM, Drug form: PDR/INJ, PRN, Dosing Weight 100.909, kg, PRN Blood G lucose Results, Start date: 02/20/17 6:25:00 CARGOMAN, Duration: 30 day, Stop date: 0 03/22/17 6:24:00 CARGOMAN Start Date: 02/20/17 Stop Date: 02/23/17 Status: Discontinued Haldol 2 mg, Route: IV, ONCE, Dosing Weight 100.909, kg, Start date: 02/26/17 15:58:00 CARGOMAN, Stop date: 02/26/17 15:58:00 CARGOMAN Start Date: 02/26/17 Stop Date: 02/26/17 Status: Completed Haldol 3 mg, 0.6 mL, Route: IV, Drug form: INJ, ONCE, Dosing Weight 100.909, kg, Priori ty: STAT, Start date: 02/26/17 22:41:00 CARGOMAN, Stop date: 02/26/17 22:41:00 CARGOMAN Notes: (Same as: Haldol) Start Date: 02/26/17 Stop Date: 02/26/17 Status: Completed heparin 5,000 unit, 1 mL, Route: SUB-Q, Drug form: INJ, Q8H-06, Dosing Weight 100.909, k g, Start date: 02/26/17 22:00:00 CARGOMAN, Duration: 30 day, Stop date: 03/28/17 14:0 0:00 CARGOMAN Notes: porcine heparin Start Date: 02/26/17 Stop Date: 03/07/17 Status: Discontinued heparin (ANES) Route: IV, Drug form: INJ, ONCE, Stop date: 02/23/17 10:24:00 CARGOMAN Start Date: 02/23/17 Stop Date: 02/23/17 Status: Completed Heparin 30 unit/kg Bolus (Heparin Dosing Weight) Route: IVP, PRN, 3,000 unit, 3 mL, Drug form: INJ, PRN, Heparin Protocol, Start date: 02/20/17 6:28:00 CARGOMAN Stop date: 03/22/17 6:27:00 CARGOMAN Start Date: 02/20/17 Stop Date: 02/23/17 Status: Discontinued Heparin 60 unit/kg Bolus (Heparin Dosing Weight) Route: IVP, PRN, 6,100 unit, 6.1 mL, Drug form: INJ, PRN, Heparin Protocol, Star t date: 02/20/17 6:28:00 CARGOMAN Stop date: 03/22/17 6:27:00 CARGOMAN Start Date: 02/20/17 Stop Date: 02/23/17 Status: Discontinued heparin additive 25,000 unit [12 unit/kg/hr] + Premix Diluent Sodium Chloride 0. 45% 500 mL 500 mL, Rate: 24.22 ml/hr, Infuse over: 20.6 hr, Route: IV, Dosing Weight 100.90 9 kg, Total Volume: 500 mL, Start date: 02/20/17 6:28:00 CARGOMAN, Stop date: 8 6:27:00 CARGOMAN, 2.33, m2 Notes: Total Concentration=50 unit/ ml Total skrxze=035 mlSend Med Request 2 ho urs prior to next bag Start Date: 02/20/17 Stop Date: 02/23/17 Status: Discontinued heparin additive 25,000 unit [400 unit/hr] + Premix Diluent Sodium Chloride 0.45 % 500 mL 500 mL, Rate: 8 ml/hr, Infuse over: 62.5 hr, Route: IV, Dosing Weight 100.909 kg , Total Volume: 500 mL, Start date: 02/25/17 21:10:00 CARGOMAN, Duration: 30 day, Sto p date: 03/27/17 21:09:00 CARGOMAN, 2.33, m2 Notes: Total Concentration=50 unit/ ml Total kukniw=695 mlSend Med Request 2 ho urs prior to next bag Start Date: 02/25/17 Stop Date: 02/26/17 Status: Discontinued hydrocortisone (ANES) Route: IV, Drug form: INJ, ONCE, Stop date: 02/23/17 16:30:00 CARGOMAN Start Date: 02/23/17 Stop Date: 02/23/17 Status: Completed influenza virus vaccine, inactivated 0.5 mL, Route: IM, Drug Form: SUSP, Daily, Start date: 02/20/17 9:00:00 CARGOMAN, Dur ation: 1 doses or times, Stop date: 02/20/17 9:00:00 CARGOMAN Notes: (Same as: Fluzone Quadrivalent, Fluarix Quadrivalent)For 3 years of age a nd older (0.5 mL IM)Shake well before use Start Date: 02/20/17 Stop Date: 02/20/17 Status: Completed insulin glargine 8 unit, 0.08 mL, Route: SUB-Q, Drug form: SOLN, Before Dinner, Dosing Weight 100 .909, kg, Start date: 02/26/17 18:15:00 CARGOMAN, Stop date: 03/28/17 16:30:00 CARGOMAN Notes: (Same as: Lantus)Do not hold insulin without contacting prescriberWASTE: F/P - Black; E - Municipal Trash Bin "single patient use only" Start Date: 02/26/17 Stop Date: 03/03/17 Status: Discontinued insulin glargine 5 unit, 0.05 mL, Route: SUB-Q, Drug form: SOLN, Daily, Dosing Weight 100.909, kg , Start date: 02/27/17 9:00:00 CARGOMAN, Duration: 30 day, Stop date: 03/28/17 9:00:0 0 CARGOMAN Notes: Same as: Lantus)Do not hold insulin without contacting prescriberWASTE: F /P - Black; E - [facility] Trash Bin Start Date: 02/27/17 Stop Date: 02/26/17 Status: Canceled insulin glargine 15 unit, 0.15 mL, Route: SUB-Q, Drug form: SOLN, Before Dinner, Dosing Weight 10 0.909, kg, Start date: 03/03/17 16:30:00 CARGOMAN, Stop date: 04/01/17 16:30:00 CARGOMAN Notes: (Same as: Lantus)Do not hold insulin without contacting prescriberWASTE: F/P - Black; E - [facility] Trash Bin "single patient use only" Start Date: 03/03/17 Stop Date: 03/05/17 Status: Discontinued insulin glargine 20 unit, 0.2 mL, Route: SUB-Q, Drug form: SOLN, Before Dinner, Dosing Weight 100 .909, kg, Start date: 03/05/17 16:30:00 CARGOMAN, Duration: 30 day, Stop date: 16:30:00 CARGOMAN Notes: (Same as: Lantus)Do not hold insulin without contacting prescriberWASTE: F/P - Black; E - [facility] Trash Bin "single patient use only" Start Date: 03/05/17 Stop Date: 03/07/17 Status: Discontinued insulin glargine 100 units/mL subcutaneous solution 20 unit, SUB-Q, Before Dinner, # 10 mL, 2 Refill(s) Start Date: 03/07/17 Stop Date: 03/07/17 Status: Discontinued insulin glargine 100 units/mL subcutaneous solution 18 unit, 0.18 mL, Route: SUB-Q, Drug form: SOLN, Daily, Dosing Weight 100.909, k g, Start date: 02/20/17 9:00:00 CARGOMAN, Duration: 30 day, Stop date: 03/21/17 9:00: 00 CARGOMAN Notes: (Same as: Lantus)Do not hold insulin without contacting prescriberWASTE: F/P - Black; E - [facility] Trash [facility] "single patient use only" Start Date: 02/20/17 Stop Date: 02/23/17 Status: Discontinued insulin lispro 4 unit, 0.04 mL, Route: SUB-Q, Drug form: SOLN, TID-Before Meals, Dosing Weight 100.909, kg, PRN Blood Glucose Results, Start date: 02/26/17 17:39:00 CARGOMAN, Durat ion: 30 day, Stop date: 03/28/17 17:38:00 CARGOMAN Notes: (Same as: Humalog ) Roll in palms of hands gently; Do not shake `vigorou sly. "Single Patient Use Only " WASTE: F/P - Black; E - [facility] Tr[facility] St able for 28 days at room temperature.Expires in days from Da te Start Date: 02/26/17 Stop Date: 03/04/17 Status: Discontinued insulin lispro 2 unit, 0.02 mL, Route: SUB-Q, Drug form: SOLN, TID-Before Meals, Dosing Weight 100.909, kg, PRN Blood Glucose Results, Start date: 02/26/17 17:39:00 CARGOMAN, Durat ion: 30 day, Stop date: 03/28/17 17:38:00 CARGOMAN Notes: (Same as: Humalog ) Roll in palms of hands gently; Do not shake `vigorou sly. "Single Patient Use Only " WASTE: F/P - Black; E - [facility] St able for 28 days at room temperature.Expires in days from Da te Start Date: 02/26/17 Stop Date: 03/04/17 Status: Discontinued insulin lispro 1 unit, 0.01 mL, Route: SUB-Q, Drug form: SOLN, TID-Before Meals, Dosing Weight 100.909, kg, PRN Blood Glucose Results, Start date: 02/26/17 17:39:00 CARGOMAN, Durat ion: 30 day, Stop date: 03/28/17 17:38:00 CARGOMAN Notes: (Same as: Humalog ) Roll in palms of hands gently; Do not shake `vigorou sly. "Single Patient Use Only " WASTE: F/P - Black; E - [facility] St able for 28 days at room temperature.Expires in days from Da te Start Date: 02/26/17 Stop Date: 03/04/17 Status: Discontinued insulin lispro 3 unit, 0.03 mL, Route: SUB-Q, Drug form: SOLN, TID-Before Meals, Dosing Weight 100.909, kg, PRN Blood Glucose Results, Start date: 02/26/17 17:39:00 CARGOMAN, Durat ion: 30 day, Stop date: 03/28/17 17:38:00 CARGOMAN Notes: (Same as: Humalog ) Roll in palms of hands gently; Do not shake `vigorou sly. "Single Patient Use Only " WASTE: F/P - Black; E - [facility] St able for 28 days at room temperature.Expires in days from Da te Start Date: 02/26/17 Stop Date: 03/04/17 Status: Discontinued insulin lispro 5 unit, 0.05 mL, Route: SUB-Q, Drug form: SOLN, TID-Before Meals, Dosing Weight 100.909, kg, PRN Blood Glucose Results, Start date: 02/26/17 17:39:00 CARGOMAN, Durat ion: 30 day, Stop date: 03/28/17 17:38:00 CARGOMAN Notes: (Same as: Humalog ) Roll in palms of hands gently; Do not shake `vigorou sly. "Single Patient Use Only " WASTE: F/P - Black; E - [facility] St able for 28 days at room temperature.Expires in days from Da te Start Date: 02/26/17 Stop Date: 03/04/17 Status: Discontinued insulin lispro 4 unit, 0.04 mL, Route: SUB-Q, Drug form: SOLN, TID-Before Meals, Dosing Weight 100.909, kg, PRN Blood Glucose Results, Start date: 02/20/17 6:25:00 CARGOMAN, Durati on: 30 day, Stop date: 03/22/17 6:24:00 CARGOMAN Notes: (Same as: Humalog ) Roll in palms of hands gently; Do not shake `vigorou sly. "Single Patient Use Only " WASTE: F/P - Black; E - [facility] St able for 28 days at room temperature.Expires in days from Da te Start Date: 02/20/17 Stop Date: 02/23/17 Status: Discontinued insulin lispro 10 unit, 0.1 mL, Route: SUB-Q, Drug form: SOLN, TID-Before Meals, Dosing Weight 100.909, kg, PRN Blood Glucose Results, Start date: 02/20/17 6:25:00 CARGOMAN, Durati on: 30 day, Stop date: 03/22/17 6:24:00 CARGOMAN Notes: (Same as: Humalog ) Roll in palms of hands gently; Do not shake `vigorou sly. "Single Patient Use Only " WASTE: F/P - Black; E - [facility] St able for 28 days at room temperature.Expires in days from Da te Start Date: 02/20/17 Stop Date: 02/23/17 Status: Discontinued insulin lispro 8 unit, 0.08 mL, Route: SUB-Q, Drug form: SOLN, TID-Before Meals, Dosing Weight 100.909, kg, PRN Blood Glucose Results, Start date: 02/20/17 6:25:00 CARGOMAN, Durati on: 30 day, Stop date: 03/22/17 6:24:00 CARGOMAN Notes: (Same as: Humalog ) Roll in palms of hands gently; Do not shake `vigorou sly. "Single Patient Use Only " WASTE: F/P - Black; E - [facility] St able for 28 days at room temperature.Expires in days from Da te Start Date: 02/20/17 Stop Date: 02/23/17 Status: Discontinued insulin lispro 6 unit, 0.06 mL, Route: SUB-Q, Drug form: SOLN, TID-Before Meals, Dosing Weight 100.909, kg, PRN Blood Glucose Results, Start date: 02/20/17 6:25:00 CARGOMAN, Durati on: 30 day, Stop date: 03/22/17 6:24:00 CARGOMAN Notes: (Same as: Humalog ) Roll in palms of hands gently; Do not shake `vigorou sly. "Single Patient Use Only " WASTE: F/P - Black; E - [facility] St able for 28 days at room temperature.Expires in days from Da te Start Date: 02/20/17 Stop Date: 02/23/17 Status: Discontinued insulin lispro 2 unit, 0.02 mL, Route: SUB-Q, Drug form: SOLN, TID-Before Meals, Dosing Weight 100.909, kg, PRN Blood Glucose Results, Start date: 02/20/17 6:25:00 CARGOMAN, Durati on: 30 day, Stop date: 03/22/17 6:24:00 CARGOMAN Notes: (Same as: Humalog ) Roll in palms of hands gently; Do not shake `vigorou sly. "Single Patient Use Only " WASTE: F/P - Black; E - [facility] St able for 28 days at room temperature.Expires in days from Da te Start Date: 02/20/17 Stop Date: 02/23/17 Status: Discontinued insulin lispro 5 unit, 0.05 mL, Route: SUB-Q, Drug form: SOLN, TID-Before Meals, Dosing Weight 100.909, kg, Start date: 02/20/17 7:30:00 CARGOMAN, Duration: 30 day, Stop date: 03/11 02/25 16:30:00 CARGOMAN Notes: (Same as: Humalog ) Roll in palms of hands gently; Do not shake `vigorou sly. "Single Patient Use Only " WASTE: F/P - Black; E - [facility] St able for 28 days at room temperature.Expires in days from Da te Start Date: 02/20/17 Stop Date: 02/23/17 Status: Discontinued insulin lispro 4 unit, 0.04 mL, Route: SUB-Q, Drug form: SOLN, Bedtime, Dosing Weight 100.909, kg, PRN Blood Glucose Results, Start date: 03/01/17 23:39:00 CARGOMAN, Duration: 30 d ay, Stop date: 03/31/17 23:38:00 CARGOMAN Notes: (Same as: Humalog ) Roll in palms of hands gently; Do not shake `vigorou sly. "Single Patient Use Only " WASTE: F/P - Black; E - [facility] St able for 28 days at room temperature.Expires in days from Da te Start Date: 03/01/17 Stop Date: 03/07/17 Status: Discontinued insulin lispro 1 unit, 0.01 mL, Route: SUB-Q, Drug form: SOLN, Bedtime, Dosing Weight 100.909, kg, PRN Blood Glucose Results, Start date: 03/01/17 23:39:00 CARGOMAN, Duration: 30 d ay, Stop date: 03/31/17 23:38:00 CARGOMAN Notes: (Same as: Humalog ) Roll in palms of hands gently; Do not shake `vigorou sly. "Single Patient Use Only " WASTE: F/P - Black; E - [facility] [address] able for 28 days at room temperature.Expires in days from Da te Start Date: 03/01/17 Stop Date: 03/07/17 Status: Discontinued insulin lispro 3 unit, 0.03 mL, Route: SUB-Q, Drug form: SOLN, Bedtime, Dosing Weight 100.909, kg, PRN Blood Glucose Results, Start date: 03/01/17 23:39:00 CARGOMAN, Duration: 30 d ay, Stop date: 03/31/17 23:38:00 CARGOMAN Notes: (Same as: Humalog ) Roll in palms of hands gently; Do not shake `vigorou sly. "Single Patient Use Only " WASTE: F/P - Black; E - [facility] [address] able for 28 days at room temperature.Expires in days from Da te Start Date: 03/01/17 Stop Date: 03/07/17 Status: Discontinued insulin lispro 2 unit, 0.02 mL, Route: SUB-Q, Drug form: SOLN, Bedtime, Dosing Weight 100.909, kg, PRN Blood Glucose Results, Start date: 03/01/17 23:39:00 CARGOMAN, Duration: 30 d ay, Stop date: 03/31/17 23:38:00 CARGOMAN Notes: (Same as: Humalog ) Roll in palms of hands gently; Do not shake `vigorou sly. "Single Patient Use Only " WASTE: F/P - Black; E - [facility] [address] able for 28 days at room temperature.Expires in days from Da te Start Date: 03/01/17 Stop Date: 03/07/17 Status: Discontinued insulin lispro 4 unit, 0.04 mL, Route: SUB-Q, Drug form: SOLN, TID-Before Meals, Dosing Weight 100.909, kg, PRN Blood Glucose Results, Start date: 03/04/17 15:15:00 CARGOMAN, Durat ion: 30 day, Stop date: 04/03/17 15:14:00 CARGOMAN Notes: (Same as: Humalog ) Roll in palms of hands gently; Do not shake `vigorou sly. "Single Patient Use Only " WASTE: F/P - Black; E - [facility] [address] able for 28 days at room temperature.Expires in days from Da te Start Date: 03/04/17 Stop Date: 03/07/17 Status: Discontinued insulin lispro 2 unit, 0.02 mL, Route: SUB-Q, Drug form: SOLN, TID-Before Meals, Dosing Weight 100.909, kg, PRN Blood Glucose Results, Start date: 03/04/17 15:15:00 CARGOMAN, Durat ion: 30 day, Stop date: 04/03/17 15:14:00 CARGOMAN Notes: (Same as: Humalog ) Roll in palms of hands gently; Do not shake `vigorou sly. "Single Patient Use Only " WASTE: F/P - Black; E - [facility] able for 28 days at room temperature.Expires in days from Da te Start Date: 03/04/17 Stop Date: 03/07/17 Status: Discontinued insulin lispro 10 unit, 0.1 mL, Route: SUB-Q, Drug form: SOLN, TID-Before Meals, Dosing Weight 100.909, kg, PRN Blood Glucose Results, Start date: 03/04/17 15:15:00 CARGOMAN, Durat ion: 30 day, Stop date: 04/03/17 15:14:00 CARGOMAN Notes: (Same as: Humalog ) Roll in palms of hands gently; Do not shake `vigorou sly. "Single Patient Use Only " WASTE: F/P - Black; E - [facility] able for 28 days at room temperature.Expires in days from Da te Start Date: 03/04/17 Stop Date: 03/07/17 Status: Discontinued insulin lispro 8 unit, 0.08 mL, Route: SUB-Q, Drug form: SOLN, TID-Before Meals, Dosing Weight 100.909, kg, PRN Blood Glucose Results, Start date: 03/04/17 15:15:00 CARGOMAN, Durat ion: 30 day, Stop date: 04/03/17 15:14:00 CARGOMAN Notes: (Same as: Humalog ) Roll in palms of hands gently; Do not shake `vigorou sly. "Single Patient Use Only " WASTE: F/P - Black; E - [facility] able for 28 days at room temperature.Expires in days from Da te Start Date: 03/04/17 Stop Date: 03/07/17 Status: Discontinued insulin lispro 6 unit, 0.06 mL, Route: SUB-Q, Drug form: SOLN, TID-Before Meals, Dosing Weight 100.909, kg, PRN Blood Glucose Results, Start date: 03/04/17 15:15:00 CARGOMAN, Durat ion: 30 day, Stop date: 04/03/17 15:14:00 CARGOMAN Notes: (Same as: Humalog ) Roll in palms of hands gently; Do not shake `vigorou sly. "Single Patient Use Only " WASTE: F/P - Black; E - [facility] St able for 28 days at room temperature.Expires in days from Da te Start Date: 03/04/17 Stop Date: 03/07/17 Status: Discontinued Insulin regular (ANES) Route: IV, Drug form: INJ, ONCE, Stop date: 02/23/17 12:04:00 CARGOMAN Start Date: 02/23/17 Stop Date: 02/23/17 Status: Completed Insulin regular 100 unit + 99 mL, Rate: Start Insulin Drip Per ICU Protocol, Dosing Weight 100.909, kg, Rou te: IVPB, Total Volume: 100, Start Date: 02/23/17 17:44:00 CARGOMAN, Duration: 30 day , Stop date: 03/25/17 17:43:00 CARGOMAN, Replace Every: 24 hr Notes: Final Concentration 1unit/1mlWASTE: F/P - Black; E - [facility] Trash Bin Start Date: 02/23/17 Stop Date: 02/26/17 Status: Discontinued Isolyte S PH 7.4 (ANES) 1000 mL Route: IV, Total Volume: 1,000, Start date: 02/23/17 8:00:00 CARGOMAN, Stop date: 9:00:00 CARGOMAN Start Date: 02/23/17 Stop Date: 02/23/17 Status: Completed Lasix 20 mg, 2 mL, Route: IVP, Drug form: INJ, BID, Dosing Weight 100.909, kg, Start d ate: 02/27/17 13:20:00 CARGOMAN, Duration: 30 day, Stop date: 03/29/17 9:00:00 CARGOMAN Notes: (Same as: Lasix) Start Date: 02/27/17 Stop Date: 03/02/17 Status: Discontinued Lasix 20 mg, 2 mL, Route: IVP, Drug form: INJ, ONCE, Dosing Weight 100.909, kg, Start date: 03/02/17 9:45:00 CARGOMAN, Stop date: 03/02/17 9:45:00 CARGOMAN Notes: (Same as: Lasix) Start Date: 03/02/17 Stop Date: 03/02/17 Status: Completed Lasix 20 mg oral tablet 20 mg, 1 tab, Route: PO, Drug form: TAB, Daily, Dosing Weight 100.909, kg, Start date: 03/03/17 9:52:00 CARGOMAN, Duration: 30 day, Stop date: 04/02/17 9:00:00 CARGOMAN Notes: (Same as: Lasix) May cause GI upset. Give with food or milk. Start Date: 03/03/17 Stop Date: 03/07/17 Status: Discontinued Lasix 40 mg oral tablet 10 mg, 0.5 tab, Route: PO, Drug form: TAB, Daily, Dosing Weight 100.909, kg, Sta rt date: 03/03/17 9:00:00 CARGOMAN, Duration: 30 day, Stop date: 04/01/17 9:00:00 CARGOMAN Notes: (Same as: Lasix)10 mg=1/2 x 20 mg TAB May cause GI upset. Give with chetan d or milk. Start Date: 03/03/17 Stop Date: 03/03/17 Status: Discontinued Lasix 40 mg oral tablet 40 mg, 1 tab, Route: PO, Drug form: TAB, Daily, Dosing Weight 100.909, kg, Start date: 03/03/17 9:00:00 CARGOMAN, Duration: 30 day, Stop date: 04/01/17 9:00:00 CARGOMAN Notes: (Same as: Lasix) May cause GI upset. Give with food or milk. Start Date: 03/03/17 Stop Date: 03/03/17 Status: Canceled Levophed 8 mg in 250 mL (Titrate.) IV 8 mg + Sodium Chloride 0.9% IV 242 mL 8 mg, 8 mL, Rate: Titrate for MAP of 60, Start Dose: 5 microgram/min, Titration: 2 microgram/min every 2-5 minutes, Goal(s): MAP >=65 mmHg, Max Dose: 70 microgram/min, Route: IV, Dosing Weight 100.909 kg, Total Volume: 250, Start date: 02/23/17 18:40... Notes: Not for direct administration - DILUTE. Protect from light. (Same as:Levo phed). Administer by either central venous catheter or peripherally-inserted naomi tral catheter (PICC) line. Start Date: 02/23/17 Stop Date: 02/26/17 Status: Discontinued lidocaine (ANES) Route: IV, Drug form: INJ, ONCE, Stop date: 02/23/17 9:09:00 CARGOMAN Start Date: 02/23/17 Stop Date: 02/23/17 Status: Completed magnesium oxide 800 mg, 2 tab, Route: PO, Drug form: TAB, PRN, Dosing Weight 100.909, kg, PRN Ab normal Lab Result, For NON-ICU Patients Only., Start date: 02/20/17 6:19:00 CARGOMAN, Duration: 30 day, Stop date: 03/22/17 6:18:00 CARGOMAN Notes: (Same as: Mag-Ox 400)Magnesium oxide [id number] elemental magnesiumDose= ____mg magnesium oxide (___mg elemental magnesium) Start Date: 02/20/17 Stop Date: 03/07/17 Status: Discontinued magnesium sulfate 1 gm, 100 mL, Route: IVPB, Drug form: INJ, PRN, Dosing Weight 100.909, kg, PRN A bnormal Lab Result, For NON-ICU Patients Only., Start date: 02/20/17 6:19:00 CARGOMAN , Duration: 30 day, Stop date: 03/22/17 6:18:00 CARGOMAN Notes: WASTE: F/P - Sink; E - [facility] Trash Bin Start Date: 02/20/17 Stop Date: 03/07/17 Status: Discontinued magnesium sulfate 2 gm, 50 mL, Route: IVPB, Drug form: INJ, PRN, Dosing Weight 100.909, kg, PRN Ab normal Lab Result, For NON-ICU Patients Only., Start date: 02/20/17 6:19:00 CARGOMAN, Duration: 30 day, Stop date: 03/22/17 6:18:00 CARGOMAN Notes: WASTE: F/P - Sink; E - [facility] Trash Bin Start Date: 02/20/17 Stop Date: 03/07/17 Status: Discontinued magnesium sulfate (ANES) Route: IV, Drug form: INJ, ONCE, Stop date: 02/23/17 13:54:00 CARGOMAN Start Date: 02/23/17 Stop Date: 02/23/17 Status: Completed metFORMIN 500 mg oral tablet 500 mg=1 tab, PO, BID-Before Meals, # 30 tab, 1 Refill(s) Start Date: 03/07/17 Status: Ordered methylene blue (ANES) 10 mg Route: IV, Drug form: INJ, Start date: 02/23/17 14:42:00 CARGOMAN, Stop date: 8 15:42:00 CARGOMAN Start Date: 02/23/17 Stop Date: 02/23/17 Status: Completed methylPREDNISolone SODium SUCCinate 125 mg, 2 mL, Route: IVP, Drug form: INJ, Q6H, Dosing Weight 100.909, kg, Start date: 02/24/17 12:00:00 CARGOMAN, Duration: 30 day, Stop date: 03/26/17 6:00:00 CARGOMAN Notes: (Same as:Solu-MEDROL, A-Methapred) Start Date: 02/24/17 Stop Date: 02/25/17 Status: Discontinued metoprolol 2 mg, 2 mL, Route: IVP, Drug form: INJ, ONCE, Dosing Weight 100.909, kg, Start d ate: 02/22/17 18:08:00 CARGOMAN, Stop date: 02/22/17 18:08:00 CARGOMAN Notes: (Same as: Lopressor)Push over 2 minutes Start Date: 02/22/17 Stop Date: 02/23/17 Status: Discontinued metoprolol (ANES) Route: IV, Drug form: INJ, ONCE, Stop date: 02/23/17 8:53:00 CARGOMAN Start Date: 02/23/17 Stop Date: 02/23/17 Status: Completed metoprolol tartrate 12.5 mg, 0.5 tab, Route: PO, Drug form: TAB, Q12H, Dosing Weight 100.909, kg, St art date: 03/01/17 21:00:00 CARGOMAN, Duration: 30 day, Stop date: 03/31/17 9:00:[address] Notes: (Same as: Lopressor) 12.5 mg=1/2 X 25 mg TAB Start Date: 03/01/17 Stop Date: 03/07/17 Status: Discontinued metoprolol tartrate 25 mg, 1 tab, Route: PO, Drug form: TAB, Q12H, Dosing Weight 100.909, kg, Start date: 02/20/17 9:00:00 CARGOMAN, Duration: 30 day, Stop date: 03/21/17 21:00:00 CARGOMAN Notes: (Same as: Lopressor) Start Date: 02/20/17 Stop Date: 02/23/17 Status: Discontinued metoprolol tartrate 25 mg oral tablet 12.5 mg=0.5 tab, PO, Q12H, # 30 tab, 2 Refill(s) Start Date: 03/07/17 Stop Date: 05/20/17 Status: Deleted midazolam 2 mg, Route: IVP, ONCE, Dosing Weight 100.909, kg, Start date: 02/26/17 7:55:00 CARGOMAN, Stop date: 02/26/17 7:55:00 CARGOMAN Start Date: 02/26/17 Stop Date: 02/26/17 Status: Completed midazolam (ANES) Route: IV, Drug form: SOLN, ONCE, Stop date: 02/23/17 8:33:00 CARGOMAN Start Date: 02/23/17 Stop Date: 02/23/17 Status: Completed MiraLax 17 gm, 1 pkt, Route: PO, Drug form: PWDR, BID, Dosing Weight 100.909, kg, Start date: 02/24/17 9:00:00 CARGOMAN, Duration: 30 day, Stop date: 03/25/17 17:00:00 CARGOMAN Notes: Dissolve in 8 oz of water or juice.(Same as: Miralax) Start Date: 02/24/17 Stop Date: 03/02/17 Status: Discontinued MiraLax 17 gm, 1 pkt, Route: PO, Drug form: PWDR, Daily, Dosing Weight 100.909, kg, Star t date: 03/03/17 9:00:00 CARGOMAN, Duration: 30 day, Stop date: 04/01/17 9:00:00 CARGOMAN Notes: Dissolve in 8 oz of water or juice.(Same as: Miralax) Start Date: 03/03/17 Stop Date: 03/07/17 Status: Discontinued morphine Sulfate 2 mg, 0.5 mL, Route: IVP, Drug form: INJ, ONCE, Dosing Weight 100.909, kg, Start date: 03/06/17 19:56:00 CARGOMAN, Stop date: 03/06/17 19:56:00 CARGOMAN Notes: (Same as:MORPhine Sulfate) Start Date: 03/06/17 Stop Date: 03/06/17 Status: Completed morphine Sulfate 4 mg, 1 mL, Route: IV, Drug form: SOLN, Q4H, Dosing Weight 100.909, kg, PRN Pain Score 6-10, Start date: 02/20/17 6:13:00 CARGOMAN, Duration: 30 day, Stop date: 03/11 03/28 6:12:00 CARGOMAN Notes: (Same as:MORPhine Sulfate) Start Date: 02/20/17 Stop Date: 02/21/17 Status: Discontinued mupirocin topical 1 appl, Route: NASAL, Q12H, Drug form: OINT, Start date: 02/24/17 21:00:00 CARGOMAN, Stop date: 03/01/17 9:00:00 CARGOMAN, MRSA Decolonization Start Date: 02/24/17 Stop Date: 03/01/17 Status: Completed mupirocin topical 2% ointment 1 appl, Route: NASAL, ONCALL, Drug form: OINT/A, Start date: 02/22/17 19:00:[address], Duration: 30 day, Stop date: 03/24/17 18:59:00 CARGOMAN Notes: 1/2 UD to each nostril.(Same As: Bactroban) Start Date: 02/22/17 Stop Date: 02/24/17 Status: Discontinued naloxone 0.04 mg, 0.1 mL, Route: IVP, Drug form: INJ, Q2MIN, Dosing Weight 100.909, kg, P RN Narcotic Reversal, Start date: 02/23/17 17:44:00 CARGOMAN, Duration: 30 day, Stop date: 03/25/17 17:43:00 CARGOMAN Notes: Same as Narcan Start Date: 02/23/17 Stop Date: 03/07/17 Status: Discontinued niCARdipine (ANES) Route: IV, Drug form: INJ, ONCE, Stop date: 02/23/17 10:39:00 CARGOMAN Start Date: 02/23/17 Stop Date: 02/23/17 Status: Completed [place] 5/325 oral tablet 1 tab, Route: PO, Drug Form: TAB, Dosing Weight 100.909, kg, Q6H, Start date: 18:00:00 CARGOMAN, Duration: 30 day, Stop date: 03/23/17 12:00:00 CARGOMAN Notes: (Same as: [place] 325/5) Do not exceed 4gm/day of acetaminophen. Start Date: 02/21/17 Stop Date: 02/23/17 Status: Discontinued [place] 5/325 oral tablet 1 tab, Route: PO, Drug Form: TAB, Dosing Weight 100.909, kg, Q4H, PRN Pain Score 1-3, Start date: 02/21/17 13:33:00 CARGOMAN, Duration: 30 day, Stop date: 03/23/17 1 3:32:00 CARGOMAN Notes: (Same as: [place] 325/5) Do not exceed 4gm/day of acetaminophen. Start Date: 02/21/17 Stop Date: 02/23/17 Status: Discontinued [place] 5/325 oral tablet 1 tab, Route: PO, Drug Form: TAB, Dosing Weight 100.909, kg, Q4H, PRN Pain Score 1-3, Start date: 03/01/17 16:08:00 CARGOMAN, Duration: 30 day, Stop date: 03/31/17 1 6:07:00 CARGOMAN Notes: (Same as: [place] 325/5) Do not exceed 4gm/day of acetaminophen. Start Date: 03/01/17 Stop Date: 03/07/17 Status: Discontinued [place] 7.5/325 oral tablet 1 tab, Route: PO, Drug Form: TAB, Dosing Weight 100.909, kg, Q4H, PRN Pain Score 4-6, Start date: 02/20/17 6:13:00 CARGOMAN, Duration: 30 day, Stop date: 03/22/17 6: 12:00 CARGOMAN Notes: Same as [place] 325-7.5mg Do not exceed 4gm/day of acetaminophen. Start Date: 02/20/17 Stop Date: 02/23/17 Status: Discontinued norepinephrine (ANES) Route: IV, Drug form: INJ, ONCE, Stop date: 02/23/17 9:34:00 CARGOMAN Start Date: 02/23/17 Stop Date: 02/23/17 Status: Completed norepinephrine (ANES) 32 microgram Route: IV, Drug form: INJ, Start date: 02/23/17 14:25:00 CARGOMAN, Stop date: 8 15:25:00 CARGOMAN Start Date: 02/23/17 Stop Date: 02/23/17 Status: Completed ocular lubricant 1 appl, Route: BOTH EYES, Q6H, Drug form: OINT, Start date: 02/24/17 0:00:00 CARGOMAN , Duration: 30 day, Stop date: 03/25/17 18:00:00 CARGOMAN Notes: (Same as: Lacri-Lube, Duratears Naturale, Artificial Tears, and Tears Aga in ) Start Date: 02/24/17 Stop Date: 03/01/17 Status: Discontinued ondansetron 4 mg, 2 mL, Route: IVP, Drug form: INJ, Q6H, Dosing Weight 100.909, kg, PRN Naus ea, Start date: 02/20/17 6:13:00 CARGOMAN, Duration: 30 day, Stop date: 03/22/17 6:12 :00 CARGOMAN Notes: (Same as: Zofran) MEDICATION WASTE Product Size: 4 mgProduct Was terrance: ___ mg Start Date: 02/20/17 Stop Date: 02/23/17 Status: Discontinued pantoprazole 40 mg, Route: IVP, Drug form: INJ, Daily, Dosing Weight 100.909, kg, Start date: 02/24/17 9:00:00 CARGOMAN, Duration: 30 day, Stop date: 03/25/17 9:00:00 CARGOMAN Notes: For IV push reconstitute with 10 ml 0.9% sodium chloride and push over 2 minutes. (Same as: Protonix) Start Date: 02/24/17 Stop Date: 02/25/17 Status: Discontinued pantoprazole 40 mg, 1 tab, Route: PO, Drug form: ECTAB, Before Breakfast, Dosing Weight 100.9 09, kg, Start date: 03/02/17 7:30:00 CARGOMAN, Duration: 30 day, Stop date: 03/31/17 7:30:00 CARGOMAN Notes: Tablet should not be chewed or crushed.(Same as: Protonix) Start Date: 03/02/17 Stop Date: 03/07/17 Status: Discontinued pantoprazole 40 mg oral enteric coated tablet 40 mg=1 tab, PO, Before Breakfast, # 30 tab, 2 Refill(s) Start Date: 03/07/17 Status: Ordered Pepcid 20 mg, 2 mL, Route: IV, Drug form: INJ, ONCE, Start date: 02/24/17 13:59:00 CARGOMAN, Stop date: 02/24/17 13:59:00 CARGOMAN Notes: (Same as: Pepcid)Can be dilute in 5-10cc NS IVP: Slow IV push over at le ast 2 minutes. Start Date: 02/24/17 Stop Date: 02/24/17 Status: Completed pneumococcal 23-valent vaccine 0.5 mL, Route: IM, Drug Form: INJ, Daily, Start date: 02/20/17 9:00:00 CARGOMAN, Dura tion: 1 doses or times, Stop date: 02/20/17 9:00:00 CARGOMAN Notes: (Same as: Pneumovax 23) Refrigerate Start Date: 02/20/17 Stop Date: 02/20/17 Status: Deleted Pneumovax 23 0.5 mL, Route: IM, Drug Form: INJ, Daily, Start date: 02/20/17 12:30:00 CARGOMAN, Dur ation: 1 doses or times, Stop date: 02/20/17 12:30:00 CARGOMAN Notes: (Same as: Pneumovax 23) Refrigerate Start Date: 02/20/17 Stop Date: 02/20/17 Status: Completed potassium chloride 20 mEq, 1 tab, Route: PO, Drug form: ERTAB, PRN, Dosing Weight 100.909, kg, PRN Abnormal Lab Result, For NON-ICU Patients Only, Start date: 02/20/17 6:19:00 CARGOMAN , Duration: 30 day, Stop date: 03/22/17 6:18:00 CARGOMAN Notes: (Same as: K-Dur 20)"Do Not Crush" With food and full glass of water Start Date: 02/20/17 Stop Date: 03/07/17 Status: Discontinued potassium chloride 20 mEq, 15 mL, Route: NJ, Drug form: LIQ, PRN, Dosing Weight 100.909, kg, PRN Ab normal Lab Result, For NON-ICU Patients Only, Start date: 02/20/17 6:19:00 CARGOMAN, Duration: 30 day, Stop date: 03/22/17 6:18:00 CARGOMAN Notes: (Same as: Potassium Chloride) Start Date: 02/20/17 Stop Date: 03/07/17 Status: Discontinued potassium chloride 10 mEq, 50 mL, Route: IVPB, Drug form: INJ, PRN, Dosing Weight 100.909, kg, PRN Abnormal Lab Result, For NON-ICU Patients Only, Start date: 02/20/17 6:19:00 CARGOMAN , Duration: 30 day, Stop date: 03/22/17 6:18:00 CARGOMAN Notes: (Same as: KCL) Infuse no faster than 10mEq/hr if given peripherally Start Date: 02/20/17 Stop Date: 03/07/17 Status: Discontinued potassium phosphate + Sodium Chloride 0.9% IV 250 mL 30 mmol, 10 mL, Route: IVPB, PRN, Dosing Weight 100.909, kg, PRN Abnormal Lab Re sult, For NON-ICU Patients Only., Start date: 02/20/17 6:19:00 CARGOMAN, Duration: 30 day, Stop date: 03/22/17 6:18:00 CARGOMAN Notes: (Same as: K Phosphate.) 1 mMol phoshate has 1.47 mEq potassium Infuse o [place] 4 hours Start Date: 02/20/17 Stop Date: 03/07/17 Status: Discontinued potassium phosphate + Sodium Chloride 0.9% IV 250 mL 15 mmol, 5 mL, Route: IVPB, PRN, Dosing Weight 100.909, kg, PRN Abnormal Lab Res ult, For NON-ICU Patients Only., Start date: 02/20/17 6:19:00 CARGOMAN, Duration: 30 day, Stop date: 03/22/17 6:18:00 CARGOMAN Notes: (Same as: K Phosphate.) 1 mMol phoshate has 1.47 mEq potassium Infuse o [place] 4 hours Start Date: 02/20/17 Stop Date: 03/07/17 Status: Discontinued potassium phosphate + Sodium Chloride 0.9% IV 250 mL 30 mmol, 10 mL, Route: IVPB, ONCE, Dosing Weight 100.909, kg, Start date: 19:08:00 CARGOMAN, Stop date: 02/23/17 19:08:00 CARGOMAN Notes: (Same as: K Phosphate.) 1 mMol phoshate has 1.47 mEq potassium Infuse o [place] 4 hours Start Date: 02/23/17 Stop Date: 02/23/17 Status: Completed potassium phosphate-sodium phosphate 250 mg-280 mg-160 mg oral powder for recons titution 2 pkt, Route: PO, Drug Form: PDR/REC, Dosing Weight 100.909, kg, PRN, PRN Abnorm al Lab Result, For NON-ICU Patients Only, Start date: 02/20/17 6:19:00 CARGOMAN, Dura tion: 30 day, Stop date: 03/22/17 6:18:00 CARGOMAN Notes: (Same as: Phos-NaK) Each 1.5 gm pkt has 250mg phosphorous. Mix w/2.5oz w ater and stir. Start Date: 02/20/17 Stop Date: 03/07/17 Status: Discontinued Precedex 400 microgram in NS 100 mL (Titrate.) IV 400 microgram + Sodium Chlorid e 0.9% IV 96 mL 400 microgram, 4 mL, Rate: Titrate, Start Dose: 0.2 microgram/kg/hr, Titration: 0.1 microgram/kg/hr every 30 min, Goal(s): RASS -1, Max Dose: 1.5 microgram/kg/h r, Route: IV, Dosing Weight 100.909 kg, Total Volume: 100, Start date: 02/24/17 8:42:00 CARGOMAN... Start Date: 02/24/17 Stop Date: 02/25/17 Status: Discontinued propofol (ANES) Route: IV, Drug form: INJ, ONCE, Stop date: 02/23/17 9:09:00 CARGOMAN Start Date: 02/23/17 Stop Date: 02/23/17 Status: Completed protamine (ANES) 10 mg Route: IV, Drug form: INJ, Start date: 02/23/17 14:42:00 CARGOMAN, Stop date: 8 15:42:00 CARGOMAN Start Date: 02/23/17 Stop Date: 02/23/17 Status: Completed rocuronium (ANES) Route: IV, Drug form: INJ, ONCE, Stop date: 02/23/17 9:09:00 CARGOMAN Start Date: 02/23/17 Stop Date: 02/23/17 Status: Completed Saline Flush 0.9% 10 ml, Route: IVP, Drug Form: INJ, Dosing Weight 100.909, kg, Q12H, Start date: 02/20/17 9:00:00 CARGOMAN, Duration: 30 day, Stop date: 03/21/17 21:00:00 CARGOMAN Notes: (Same as: BD Posiflush) Start Date: 02/20/17 Stop Date: 03/07/17 Status: Discontinued Saline Flush 0.9% 10 ml, Route: IVP, Drug Form: INJ, Dosing Weight 100.909, kg, PRN, PRN Line Flus h, Start date: 02/20/17 6:19:00 CARGOMAN, Duration: 30 day, Stop date: 03/22/17 6:18: 00 CARGOMAN Notes: (Same as: BD Posiflush) Start Date: 02/20/17 Stop Date: 03/07/17 Status: Discontinued Saline Flush 0.9% 5 ml, Route: MISC, Drug Form: INJ, Dosing Weight 100.909, kg, PRN, PRN Line Flus h, Start date: 02/22/17 18:08:00 CARGOMAN, Duration: 30 day, Stop date: 03/24/17 18:0 7:00 CARGOMAN Notes: (Same as: BD Posiflush) Start Date: 02/22/17 Stop Date: 02/25/17 Status: Discontinued Saline Flush 0.9% 5 ml, Route: MISC, Drug Form: INJ, Dosing Weight 100.909, kg, Q12H, Start date: 02/22/17 21:00:00 CARGOMAN, Duration: 30 day, Stop date: 03/24/17 9:00:00 CARGOMAN Notes: (Same as: BD Posiflush) Start Date: 02/22/17 Stop Date: 02/25/17 Status: Discontinued senna 8.6 mg oral tablet 8.6 mg, 1 tab, Route: PO, Drug Form: TAB, Dosing Weight 100.909, kg, BID, PRN Co nstipation, Start date: 02/23/17 17:44:00 CARGOMAN, Duration: 30 day, Stop date: 03/11 06/25 17:43:00 CARGOMAN Notes: (Same as: Senokot) Start Date: 02/23/17 Stop Date: 03/02/17 Status: Discontinued SEROquel 25 mg, 1 tab, Route: PO, Drug form: TAB, ONCE, Dosing Weight 100.909, kg, Priori ty: STAT, Start date: 02/28/17 11:57:00 CARGOMAN, Stop date: 02/28/17 11:57:00 CARGOMAN Notes: (Same as: SEROquel) Start Date: 02/28/17 Stop Date: 02/28/17 Status: Completed SEROquel 25 mg, 1 tab, Route: PO, Drug form: TAB, BID, Dosing Weight 100.909, kg, Priorit y: NOW, Start date: 02/27/17 10:41:00 CARGOMAN, Duration: 30 day, Stop date: 03/29/17 9:00:00 CARGOMAN Notes: (Same as: SEROquel) Start Date: 02/27/17 Stop Date: 02/28/17 Status: Discontinued SEROquel 25 mg, 1 tab, Route: PO, Drug form: TAB, BID, Dosing Weight 100.909, kg, Start d ate: 02/28/17 17:00:00 CARGOMAN, Stop date: 03/30/17 9:00:00 CARGOMAN Notes: (Same as: SEROquel) Start Date: 02/28/17 Stop Date: 03/02/17 Status: Discontinued SEROquel 25 mg, 1 tab, Route: PO, Drug form: TAB, Bedtime, Dosing Weight 100.909, kg, Sta rt date: 03/02/17 21:00:00 CARGOMAN, Duration: 30 day, Stop date: 03/31/17 21:00:[address] Notes: (Same as: SEROquel) Start Date: 03/02/17 Stop Date: 03/07/17 Status: Discontinued sodium bicarbonate 8.4% 50 mEq, 50 ml, Route: IVP, Drug Form: INJ, Dosing Weight 100.909, kg, ONCE, Star t date: 02/23/17 23:29:00 CARGOMAN, Stop date: 02/23/17 23:29:00 CARGOMAN Notes: (sodium bicarb 8.4% (1 mEq/ml) 50 ml VL) Start Date: 02/23/17 Stop Date: 02/23/17 Status: Completed sodium bicarbonate 8.4% 50 mEq, 50 ml, Route: IVP, Drug Form: INJ, Dosing Weight 100.909, kg, ONCE, Star t date: 02/23/17 23:29:00 CARGOMAN, Stop date: 02/23/17 23:29:00 CARGOMAN Notes: (sodium bicarb 8.4% (1 mEq/ml) 50 ml VL) Start Date: 02/23/17 Stop Date: 02/23/17 Status: Completed Sodium Chloride 0.9% (titrate) 250 mL 250 mL, Rate: fisher scallop for use with blood product administration, Dosing Weight 1 00.909, kg, Route: IV, Total Volume: 250, Start Date: 02/24/17 19:20:00 CARGOMAN, Dur ation: 30 day, Stop date: 03/26/17 19:19:00 CARGOMAN, Replace Every: 24 hr Start Date: 02/24/17 Stop Date: 02/25/17 Status: Discontinued Sodium Chloride 0.9% (titrate) 250 mL 250 mL, Rate: To prime line and flush remaining blood products., Dosing Weight 1 00.909, kg, Route: IV, Total Volume: 250, Start Date: 02/22/17 18:08:00 CARGOMAN, Dur ation: 30 day, Stop date: 03/24/17 18:07:00 CARGOMAN, Replace Every: 24 hr Start Date: 02/22/17 Stop Date: 02/25/17 Status: Discontinued Sodium Chloride 0.9% (titrate) 250 mL 250 mL, Rate: fisher scallop for use with blood product administration, Dosing Weight 1 00.909, kg, Route: IV, Total Volume: 250, Start Date: 02/23/17 19:04:00 CARGOMAN, Dur ation: 30 day, Stop date: 03/25/17 19:03:00 CARGOMAN, Replace Every: 24 hr Start Date: 02/23/17 Stop Date: 02/25/17 Status: Discontinued Sodium Chloride 0.9% IV (ANES) 1000 mL Route: IV, Total Volume: 1,000, Start date: 02/23/17 8:26:00 CARGOMAN, Stop date: 9:26:00 CARGOMAN Start Date: 02/23/17 Stop Date: 02/23/17 Status: Completed Sodium Chloride 0.9% IV (ANES) 246 mL + EPINEPHrine (ANES) 4000 microgram Route: IV, Drug form: INJ, Start date: 02/23/17 13:26:00 CARGOMAN, Stop date: 8 14:26:00 CARGOMAN Start Date: 02/23/17 Stop Date: 02/23/17 Status: Completed Sodium Chloride 0.9% IV (ANES) 500 mL Route: IV, Total Volume: 500, Start date: 02/23/17 13:28:00 CARGOMAN, Stop date: 02/08 07/26 14:28:00 CARGOMAN Start Date: 02/23/17 Stop Date: 02/23/17 Status: Completed Sodium Chloride 0.9% IV 1,000 mL + M.V.I.-12 10 mL Daily + folic acid IV 1 mg Da verónica + thiamine IV 1 1,000 mL, Rate: 100 ml/hr, Infuse over: 10.1 hr, Route: IV, Dosing Weight 100.90 9 kg, Total Volume: 1,011.2, Start date: 02/28/17 12:59:00 CARGOMAN, Duration: 3 day, Stop date: 03/03/17 12:58:00 CARGOMAN, 2.33, m2 Start Date: 02/28/17 Stop Date: 03/01/17 Status: Discontinued sodium phosphate 30 mmol, Route: IVPB, ONCE, Dosing Weight 100.909, kg, Priority: STAT, Start edgardo e: 02/23/17 19:17:00 CARGOMAN, Stop date: 02/23/17 19:17:00 CARGOMAN Start Date: 02/23/17 Stop Date: 02/23/17 Status: Deleted sodium phosphate + Sodium Chloride 0.9% IV 250 mL 30 mmol, 10 mL, Route: IVPB, PRN, Dosing Weight 100.909, kg, PRN Abnormal Lab Re sult, For NON-ICU Patients Only., Start date: 02/20/17 6:19:00 CARGOMAN, Duration: 30 day, Stop date: 03/22/17 6:18:00 CARGOMAN Start Date: 02/20/17 Stop Date: 03/07/17 Status: Discontinued sodium phosphate + Sodium Chloride 0.9% IV 250 mL 15 mmol, 5 mL, Route: IVPB, PRN, Dosing Weight 100.909, kg, PRN Abnormal Lab Res ult, For NON-ICU Patients Only., Start date: 02/20/17 6:19:00 CARGOMAN, Duration: 30 day, Stop date: 03/22/17 6:18:00 CARGOMAN Start Date: 02/20/17 Stop Date: 03/07/17 Status: Discontinued Stimate (ANES) 4 microgram Route: IV, Drug Form: INJ, Start date: 02/23/17 16:13:00 CARGOMAN, Stop date: 8 17:13:00 CARGOMAN Start Date: 02/23/17 Stop Date: 02/23/17 Status: Completed tramadol 50 mg, 1 tab, Route: PO, Drug form: TAB, ONCE, Dosing Weight 100.909, kg, Priori ty: NOW, Start date: 03/05/17 22:34:00 CARGOMAN, Stop date: 03/05/17 22:34:00 CARGOMAN Notes: Not to exceed 400mg/day. (Same As: Ultram) Start Date: 03/05/17 Stop Date: 03/05/17 Status: Completed tranexamic acid (ANES) 100 mg Route: IV, Drug form: INJ, Start date: 02/23/17 8:30:00 CARGOMAN, Stop date: 02/23/17 9:30:00 CARGOMAN Start Date: 02/23/17 Stop Date: 02/23/17 Status: Completed Tylenol with Codeine #3 oral tablet See Instructions, 1-2 tab PO Q12hrs for pain, # 30 tab, 0 Refill(s) Start Date: 03/07/17 Stop Date: 04/08/17 Status: Completed vancomycin 1,000 mg, Route: IVPB, Drug form: INJ, [id number], Dosing Weight 100.909, kg, Start date: 02/23/17 19:00:00 CARGOMAN, Duration: 30 day, Stop date: 03/24/17 19:00:00 CARGOMAN, ABX Indication: Surgical Prophylaxis Notes: TIME CRITICAL MEDICATION(Same As: Vancocin)Infusion rate< 1000 mg: infuse over 1 [id number] - 1500 mg: infuse over 1.5 [id number] - 2000 mg: infuse over 2 hours> 2001 mg: infuse over 2.5 hoursFor adult patients only: Round to nearest 250 mg per Medical Staff approval MEDICATION WASTE Product Size: 1000 mgProduct Wasted: ___ mg Start Date: 02/23/17 Stop Date: 02/23/17 Status: Deleted vancomycin 1,000 mg, Route: IVPB, Drug form: INJ, [id number], Dosing Weight 100.909, kg, Start date: 02/24/17 9:00:00 CARGOMAN, Duration: 30 day, Stop date: 03/25/17 9:00:00 CARGOMAN, ABX Indication: Surgical Prophylaxis Notes: TIME CRITICAL MEDICATION(Same As: Vancocin)Infusion rate< 1000 mg: infuse over 1 [id number] - 1500 mg: infuse over 1.5 [id number] - 2000 mg: infuse over 2 hours> 2001 mg: infuse over 2.5 hoursFor adult patients only: Round to nearest 250 mg per Medical Staff approval MEDICATION WASTE Product Size: 1000 mgProduct Wasted: ___ mg Start Date: 02/24/17 Stop Date: 03/01/17 Status: Discontinued vancomycin (ANES) 1000 mg Route: IV, Drug form: INJ, Start date: 02/23/17 8:30:00 CARGOMAN, Stop date: 02/23/17 9:30:00 CARGOMAN Start Date: 02/23/17 Stop Date: 02/23/17 Status: Completed vancomycin (SCIP) 1,500 mg, Route: IVPB, Drug form: INJ, Q12H, Dosing Weight 100.909, kg, Time Cri tical Medication, Start date: 02/23/17 21:00:00 CARGOMAN, Duration: 2 doses or times, Stop date: 02/24/17 9:00:00 CARGOMAN, ABX Indication: Surgical Prophylaxis Start Date: 02/23/17 Stop Date: 02/23/17 Status: Canceled vasopressin (ANES) Route: IV, Drug form: INJ, ONCE, Stop date: 02/23/17 14:29:00 CARGOMAN Start Date: 02/23/17 Stop Date: 02/23/17 Status: Completed vasopressin 40 unit in NS 100 mL IV 40 unit + Sodium Chloride 0.9% IV 98 mL 40 unit, 2 mL, Rate: Titrate, Start Dose: 0.04 unit/min, Titration: start at .04 , Goal(s): MAP of at least 60, Route: IV, Dosing Weight 100.909 kg, Total Volume : 100, Start date: 02/24/17 8:15:00 CARGOMAN, Duration: 30 day, Stop date: 03/26/17 8 :14:00 CARGOMAN Notes: (Same As: Pitressin, Vasostrict) Start Date: 02/24/17 Stop Date: 02/26/17 Status: Discontinued Versed 2 mg, 2 mL, Route: IVP, Drug form: INJ, ONCE, Dosing Weight 100.909, kg, Start d ate: 02/25/17 10:52:00 CARGOMAN, Stop date: 02/25/17 10:52:00 CARGOMAN Notes: (Same as: Versed) MEDICATION WASTE Product Size: 2 mgProduct Was terrance: ___ mg Start Date: 02/25/17 Stop Date: 02/25/17 Status: Completed Versed 2 mg, 2 mL, Route: IV, Drug form: INJ, Q2H, Dosing Weight 100.909, kg, PRN Agita tion, Start date: 02/25/17 10:54:00 CARGOMAN, Duration: 30 day, Stop date: 03/27/17 1 0:53:00 CARGOMAN Notes: (Same as: Versed) MEDICATION WASTE Product Size: 2 mgProduct Was terrance: ___ mg Start Date: 02/25/17 Stop Date: 03/07/17 Status: Discontinued Versed 2 mg, Route: IVP, ONCE, Dosing Weight 100.909, kg, Start date: 02/26/17 15:10:00 CARGOMAN, Stop date: 02/26/17 15:10:00 CARGOMAN Start Date: 02/26/17 Stop Date: 02/26/17 Status: Completed Zantac 50 mg, Route: IVPB, ONCE, Dosing Weight 100.909, kg, Start date: 02/24/17 13:34: 00 CARGOMAN, Stop date: 02/24/17 13:34:00 CARGOMAN Start Date: 02/24/17 Stop Date: 02/24/17 Status: Discontinued Zofran 4 mg, 2 mL, Route: IV, Drug form: INJ, Q6H, Dosing Weight 100.909, kg, PRN Nause a, Start date: 02/23/17 17:44:00 CARGOMAN, Duration: 30 day, Stop date: 03/25/17 17:4 3:00 CARGOMAN Notes: (Same as: Zofran) MEDICATION WASTE Product Size: 4 mgProduct Was terrance: _0_ mg Start Date: 02/23/17 Stop Date: 03/07/17 Status: Discontinued Results BLOOD BANK RESULTS 1 2 3 Most recent to oldest [Reference Range]: B POS *Unknown* (03/01/17 3:59 AM) B POS *Unknown* (02/25/17 2:53 AM) B POS *Unknown* (02/22/17 8:17 PM) ABO/Rh Negative (03/01/17 3:59 AM) Negative (02/25/17 2:53 AM) Negative (02/22/17 8:17 PM) Antibody Scrn Modification Required (02/25/17 12:20 AM) Product available (02/23/17 7:32 PM) Product available (02/23/17 7:32 PM) FFP product Product available (02/25/17 12:20 AM) Product available (02/23/17 7:32 PM) Product available (02/23/17 7:32 PM) Platelet product Product available (02/25/17 12:20 AM) Product available (02/24/17 3:46 PM) Product available (02/23/17 7:32 PM) RBC product ELECTROLYTES 1 2 3 Most recent to oldest [Reference Range]: 134 mEq/L *LOW* (03/07/17 8:45 AM) 132 mEq/L *LOW* (03/05/17 2:37 PM) 136 mEq/L (03/04/17 10:15 AM) Sodium Lvl [135-145 mEq/L] 4.0 mEq/L (03/07/17 8:45 AM) 4.0 mEq/L (03/05/17 2:37 PM) 4.5 mEq/L (03/05/17 5:24 AM) Potassium Lvl [3.5-5.1 mEq/L] 100 mEq/L (03/07/17 8:45 AM) 99 mEq/L (03/05/17 2:37 PM) 101 mEq/L (03/04/17 10:15 AM) Chloride Lvl [95-109 mEq/L] 27 mEq/L (03/07/17 8:45 AM) 28 mEq/L (03/05/17 2:37 PM) 30 mEq/L (03/04/17 10:15 AM) CO2 [24-32 mEq/L] 11.0 mEq/L (03/07/17 8:45 AM) 9.0 mEq/L *LOW* (03/05/17 2:37 PM) 8.9 mEq/L *LOW* (03/04/17 10:15 AM) AGAP [10.0-20.0 mEq/L] CHEM PANEL 1 2 3 Most recent to oldest [Reference Range]: 1.21 mg/dL (03/07/17 8:45 AM) 1.37 mg/dL (03/05/17 2:37 PM) 1.23 mg/dL (03/04/17 10:15 AM) Creatinine Lvl [0.50-1.40 mg/dL] 63 mL/min/1.73m2 1 *NA* (03/07/17 8:45 AM) 54 mL/min/1.73m2 2 *NA* (03/05/17 2:37 PM) 62 mL/min/1.73m2 3 *NA* (03/04/17 10:15 AM) eGFR 13 mg/dL (03/07/17 8:45 AM) 16 mg/dL (03/05/17 2:37 PM) 21 mg/dL (03/04/17 10:15 AM) BUN [7-22 mg/dL] 11 (03/07/17 8:45 AM) 12 (03/05/17 2:37 PM) 17 (03/04/17 10:15 AM) B/C Ratio [6-25] 193 mg/dL *HI* (03/07/17 8:45 AM) 223 mg/dL *HI* (03/05/17 2:37 PM) 252 mg/dL *HI* (03/04/17 10:15 AM) Glucose Lvl [70-99 mg/dL] 6.1 g/dL *LOW* (03/07/17 8:45 AM) 6.0 g/dL *LOW* (03/05/17 2:37 PM) 5.8 g/dL *LOW* (03/04/17 10:15 AM) Total Protein [6.4-8.4 g/dL] 2.0 g/dL *LOW* (03/07/17 8:45 AM) 2.2 g/dL *LOW* (03/05/17 2:37 PM) 2.1 g/dL *LOW* (03/04/17 10:15 AM) Albumin Lvl [3.5-5.0 g/dL] 4.1 g/dL (03/07/17 8:45 AM) 3.8 g/dL (03/05/17 2:37 PM) 3.7 g/dL (03/04/17 10:15 AM) Globulin [2.7-4.2 g/dL] 0.5 *LOW* (03/07/17 8:45 AM) 0.6 *LOW* (03/05/17 2:37 PM) 0.6 *LOW* (03/04/17 10:15 AM) A/G Ratio [0.7-1.6] 8.6 mg/dL (03/07/17 8:45 AM) 8.2 mg/dL *LOW* (03/05/17 2:37 PM) 8.3 mg/dL *LOW* (03/04/17 10:15 AM) Calcium Lvl [8.5-10.5 mg/dL] 2.1 mg/dL *LOW* (03/02/17 6:19 AM) 2.6 mg/dL (03/01/17 3:59 AM) 2.4 mg/dL *LOW* (02/28/17 2:35 AM) Phosphorus [2.5-4.5 mg/dL] 1.8 mg/dL (03/02/17 6:19 AM) 1.9 mg/dL (03/01/17 3:59 AM) 2.0 mg/dL (02/28/17 2:35 AM) Magnesium Lvl [1.8-2.4 mg/dL] 27 unit/L (03/07/17 8:45 AM) 30 unit/L (03/05/17 2:37 PM) 32 unit/L (03/04/17 10:15 AM) ALT [0-65 unit/L] 30 unit/L (03/07/17 8:45 AM) 28 unit/L (03/05/17 2:37 PM) 29 unit/L (03/04/17 10:15 AM) AST [0-37 unit/L] 79 unit/L (03/07/17 8:45 AM) 69 unit/L (03/05/17 2:37 PM) 60 unit/L (03/04/17 10:15 AM) Alk Phos [39-136 unit/L] 392 unit/L *HI* (02/27/17 3:24 AM) 333 unit/L *HI* (02/26/17 2:26 AM) LDH [98-192 unit/L] <10 mg/dL (02/27/17 3:24 AM) <10 mg/dL (02/26/17 2:26 AM) Plasma Hemoglobin [0-10 mg/dL] 1.1 mg/dL (03/07/17 8:45 AM) 1.0 mg/dL (03/05/17 2:37 PM) 1.3 mg/dL (03/04/17 10:15 AM) Bili Total [0.2-1.3 mg/dL] 0.6 mg/dL *HI* (02/28/17 2:35 AM) 0.2 mg/dL (02/27/17 3:24 AM) 0.2 mg/dL (02/26/17 2:26 AM) Bili Direct [0.0-0.3 mg/dL] 0.6 mg/dL (02/25/17 2:53 AM) 0.7 mg/dL (02/24/17 4:31 AM) Bili Indirect [0.0-1.0 mg/dL] 2.2 mMol/L (02/28/17 2:35 AM) 1.1 mMol/L (02/27/17 3:24 AM) 1.0 mMol/L (02/26/17 2:26 AM) Lactic Acid Lvl [0.5-2.2 mMol/L] 0.24 ng/mL *HI* (02/28/17 7:40 AM) Procalcitonin Lvl [0.00-0.10 ng/mL] 1Result Comment: The eGFR is calculated using [...] 3 Most recent to oldest [Reference Range]: 490 pg/mL *HI* (02/20/17 6:32 AM) BNP [<=100 pg/mL] SPECIAL CHEMISTRY 1 2 3 Most recent to oldest [Reference Range]: 6.9 % *HI* (03/04/17 10:15 AM) 7.2 % *HI* (03/03/17 9:17 AM) Hgb A1C [<=5.6 %] ANEMIA STUDY 1 2 3 Most recent to oldest [Reference Range]: 41 ug/dl *LOW* (03/02/17 11:42 AM) Iron [45-160 ug/dl] 613 ng/mL *HI* (03/02/17 11:42 AM) Ferritin Lvl [22-275 ng/mL] 22 % (03/02/17 11:42 AM) % Satur Fe [12-57 %] 146 ug/dl (03/02/17 11:42 AM) UIBC [110-370 ug/dl] 464 pg/mL (03/02/17 11:42 AM) Vitamin B12 Lvl [254-1320 pg/mL] 11.0 ng/mL (03/02/17 11:42 AM) Folate Lvl [>=3.0 ng/mL] 893 ng/mL *HI* (03/02/17 11:42 AM) RBC Folate [280-791 ng/mL] 187 ug/dl *LOW* (03/02/17 11:42 AM) TIBC [228-428 ug/dl] PARATHYROID PROFILE 1 2 3 Most recent to oldest [Reference Range]: 1.20 mMol/L (03/01/17 3:59 AM) 1.22 mMol/L (02/28/17 2:35 AM) 1.23 mMol/L (02/27/17 3:24 AM) Ca Ion WB [1.05-1.25 mMol/L] 1.19 mMol/L (03/01/17 3:59 AM) 1.25 mMol/L (02/28/17 2:35 AM) 1.21 mMol/L (02/27/17 3:24 AM) Ca Norm WB [1.05-1.25 mMol/L] URINE AND STOOL 1 2 3 Most recent to oldest [Reference Range]: Clear (03/04/17 2:52 AM) Clear (02/24/17 5:16 PM) UA Turbidity [Clear] Yellow *NA* (03/04/17 2:52 AM) Yellow *NA* (02/24/17 5:16 PM) UA Color [Yellow] 7.0 (03/04/17 2:52 AM) 8.5 *HI* (02/24/17 5:16 PM) UA pH [5.0-8.0] 1.009 (03/04/17 2:52 AM) 1.017 (02/24/17 5:16 PM) UA Spec Grav [<=1.030] 500mg/dL *NA* (03/04/17 2:52 AM) UA Glucose 50 mg/dL *ABN* (02/24/17 5:16 PM) UA Glucose [Negative mg/dL] Negative (03/04/17 2:52 AM) Negative (02/24/17 5:16 PM) UA Blood [Negative] Negative mg/dL *NA* (03/04/17 2:52 AM) UA Ketones [Negative mg/dL] TR *NA* (02/24/17 5:16 PM) UA Ketones Negative mg/dL (03/04/17 2:52 AM) 50 mg/dL *ABN* (02/24/17 5:16 PM) UA Protein [Negative mg/dL] 2.0 mg/dL *HI* (03/04/17 2:52 AM) <=1.0 mg/dL *NA* (02/24/17 5:16 PM) UA Urobilinogen [0.1-1.0 mg/dL] Negative *NA* (03/04/17 2:52 AM) Negative *NA* (02/24/17 5:16 PM) UA Bili [Negative] Negative (03/04/17 2:52 AM) Negative (02/24/17 5:16 PM) UA Leuk Est [Negative] Negative (03/04/17 2:52 AM) Negative (02/24/17 5:16 PM) UA Nitrite [Negative] <1 /HPF (03/04/17 2:52 AM) 2 /HPF (02/24/17 5:16 PM) UA WBC [0-5 /HPF] 3 /HPF *HI* (02/24/17 5:16 PM) UA RBC [0-2 /HPF] None Seen *NA* (03/04/17 2:52 AM) None Seen *NA* (02/24/17 5:16 PM) UA Sq Epi Few /LPF *NA* (02/24/17 5:16 PM) UA Mucus [None Seen /LPF] HEMATOLOGY 1 2 3 Most recent to oldest [Reference Range]: 11.3 K/CMM *HI* (03/07/17 8:45 AM) 11.1 K/CMM *HI* (03/05/17 2:37 PM) 11.1 K/CMM *HI* (03/04/17 10:15 AM) WBC [3.7-10.4 K/CMM] 3.44 M/CMM *LOW* (03/07/17 8:45 AM) 3.43 M/CMM *LOW* (03/05/17 2:37 PM) 3.37 M/CMM *LOW* (03/04/17 10:15 AM) RBC [4.70-6.10 M/CMM] 10.8 g/dL *LOW* (03/07/17 8:45 AM) 10.6 g/dL *LOW* (03/05/17 2:37 PM) 10.4 g/dL *LOW* (03/04/17 10:15 AM) Hgb [14.0-18.0 g/dL] 32.3 % *LOW* (03/07/17 8:45 AM) 31.9 % *LOW* (03/05/17 2:37 PM) 31.4 % *LOW* (03/04/17 10:15 AM) Hct [42.0-54.0 %] 93.7 fL (03/07/17 8:45 AM) 93.1 fL (03/05/17 2:37 PM) 93.1 fL (03/04/17 10:15 AM) MCV [80.0-94.0 fL] 31.4 pg *HI* (03/07/17 8:45 AM) 31.0 pg (03/05/17 2:37 PM) 30.8 pg (03/04/17 10:15 AM) MCH [27.0-31.0 pg] 33.5 g/dL (03/07/17 8:45 AM) 33.3 g/dL (03/05/17 2:37 PM) 33.1 g/dL (03/04/17 10:15 AM) MCHC [32.0-36.0 g/dL] 22.2 % *HI* (03/07/17 8:45 AM) 21.7 % *HI* (03/05/17 2:37 PM) 21.3 % *HI* (03/04/17 10:15 AM) RDW [11.5-14.5 %] 9.1 fL (03/07/17 8:45 AM) 9.4 fL (03/05/17 2:37 PM) 9.2 fL (03/04/17 10:15 AM) MPV [7.4-10.4 fL] 376 K/CMM (03/07/17 8:45 AM) 326 K/CMM (03/05/17 2:37 PM) 278 K/CMM (03/04/17 10:15 AM) Platelet [133-450 K/CMM] 60.4 % (03/07/17 8:45 AM) 63.9 % (03/05/17 2:37 PM) 62.5 % (03/04/17 10:15 AM) Segs [45.0-75.0 %] 0.0 % (03/02/17 6:19 AM) 2.0 % (02/26/17 2:26 AM) 0.0 % (02/20/17 6:32 AM) Bands [0.0-11.0 %] 16.5 % *LOW* (03/07/17 8:45 AM) 18.3 % *LOW* (03/05/17 2:37 PM) 15.8 % *LOW* (03/04/17 10:15 AM) Lymphocytes [20.0-40.0 %] 0.0 % (03/02/17 6:19 AM) 0.0 % (02/26/17 2:26 AM) 0.0 % (02/20/17 6:32 AM) Atypical Lymphs [<=0.0 %] 16.8 % *HI* (03/07/17 8:45 AM) 12.3 % *HI* (03/05/17 2:37 PM) 15.2 % *HI* (03/04/17 10:15 AM) Monocytes [2.0-12.0 %] 5.4 % *HI* (03/07/17 8:45 AM) 4.8 % *HI* (03/05/17 2:37 PM) 6.2 % *HI* (03/04/17 10:15 AM) Eosinophils [0.0-4.0 %] 0.9 % (03/07/17 8:45 AM) 0.7 % (03/05/17 2:37 PM) 0.3 % (03/04/17 10:15 AM) Basophils [0.0-1.0 %] 2.0 % *HI* (03/02/17 6:19 AM) Myelocytes [<=0.0 %] 6.8 K/CMM (03/07/17 8:45 AM) 7.1 K/CMM (03/05/17 2:37 PM) 6.9 K/CMM (03/04/17 10:15 AM) Segs-Bands # [1.5-8.1 K/CMM] 1.9 K/CMM (03/07/17 8:45 AM) 2.0 K/CMM (03/05/17 2:37 PM) 1.8 K/CMM (03/04/17 10:15 AM) Lymphocytes # [1.0-5.5 K/CMM] 1.9 K/CMM *HI* (03/07/17 8:45 AM) 1.4 K/CMM *HI* (03/05/17 2:37 PM) 1.7 K/CMM *HI* (03/04/17 10:15 AM) Monocytes # [0.0-0.8 K/CMM] 0.6 K/CMM *HI* (03/07/17 8:45 AM) 0.5 K/CMM (03/05/17 2:37 PM) 0.7 K/CMM *HI* (03/04/17 10:15 AM) Eosinophils # [0.0-0.5 K/CMM] 0.1 K/CMM (03/07/17 8:45 AM) 0.1 K/CMM (03/05/17 2:37 PM) 0.1 K/CMM (03/03/17 9:17 AM) Basophils # [0.0-0.2 K/CMM] 100WB *NA* (03/02/17 6:19 AM) NRBC 100 *NA* (02/20/17 6:32 AM) Tot Cell Ct 1+ *ABN* (03/07/17 8:45 AM) 1+ *ABN* (03/05/17 2:37 PM) 1+ *ABN* (03/04/17 10:15 AM) Anisocyte [None Seen] Moderate *ABN* (03/07/17 8:45 AM) Polychrom [None Seen] Slight *NA* (03/03/17 9:17 AM) Slight *Unknown* (03/02/17 6:19 AM) Polychrom 1+ *ABN* (03/03/17 9:17 AM) 1+ *ABN* (02/23/17 3:50 AM) 2+ *ABN* (02/22/17 5:21 AM) Macrocyte [None Seen] Slight *Unknown* (02/20/17 6:32 AM) Smudge Normal (03/07/17 8:45 AM) Normal (03/02/17 6:19 AM) Normal (02/27/17 3:24 AM) Plt Morph Moderate *ABN* (03/03/17 9:17 AM) Large Plt [None Seen] 17.2 seconds *HI* (03/01/17 3:59 AM) 17.1 seconds *HI* (02/28/17 2:35 AM) 16.8 seconds *HI* (02/27/17 3:24 AM) PT [12.0-14.7 seconds] 1.40 *HI* (03/01/17 3:59 AM) 1.39 *HI* (02/28/17 2:35 AM) 1.36 *HI* (02/27/17 3:24 AM) INR [0.85-1.17] 20.7 seconds (02/28/17 2:35 AM) 17.1 seconds (02/27/17 3:24 AM) 17.4 seconds (02/26/17 2:26 AM) Thrombin Time [15.0-21.2 seconds] 372 mg/dL (02/28/17 2:35 AM) 376 mg/dL (02/27/17 3:24 AM) 420 mg/dL (02/26/17 2:26 AM) Fibrinogen Lvl [230-510 mg/dL] 2.42 ug/mL FEU *NA* (02/28/17 2:35 AM) 2.28 ug/mL FEU *NA* (02/27/17 3:24 AM) 1.29 ug/mL FEU *NA* (02/26/17 2:26 AM) D-Dimer 34.6 seconds (03/01/17 3:59 AM) 33.6 seconds (02/28/17 2:35 AM) 30.8 seconds (02/27/17 3:24 AM) PTT [22.9-35.8 seconds] 5.7 minutes (02/23/17 3:15 PM) R-Time Hep [5.0-10.0 minutes] 1.6 minutes (02/23/17 3:15 PM) K-Time Hep [1.0-3.0 minutes] 67.5 degrees (02/23/17 3:15 PM) Angle Hep [53.0-72.0 degrees] 64.1 mm (02/23/17 3:15 PM) Max Amp Hep [50.0-70.0 mm] 8.9 K d/sc (02/23/17 3:15 PM) G-Value Hep [4.5-11.0 K d/sc] 0.0 % (02/23/17 3:15 PM) LY30 Hep [0.0-7.5 %] 0.9 (02/23/17 3:15 PM) Coag Index Hep [-3.0-3.0] See Note (02/23/17 3:15 PM) TEG Data 160 PRU *NA* (02/23/17 3:50 AM) Plav Effect Plt MOLECULAR DIAGNOSTIC 1 2 3 Most recent to oldest [Reference Range]: Flocked [employer] Swab (02/23/17 9:22 PM) Source Adenovirus PCR Flocked [employer] Swab (02/23/17 9:22 PM) Source Parainfluenza Virus PCR Negative (02/23/17 9:22 PM) Parainfluenza 1 PCR [Negative] Negative (02/23/17 9:22 PM) Parainfluenza 2 PCR [Negative] Negative (02/23/17 9:22 PM) Parainfluenza 3 PCR [Negative] Flocked [employer]IST Swab (02/23/17 9:22 PM) Source Respiratory Panel PCR Negative (02/23/17 9:22 PM) Influenza A PCR [Negative] Negative (02/23/17 9:22 PM) Influenza B PCR [Negative] Negative (02/23/17 9:22 PM) RSV PCR [Negative] Negative (02/23/17 9:22 PM) Adenovirus PCR [Negative] BACTERIAL - SEROLOGY 1 2 3 Most recent to oldest [Reference Range]: Negative (02/22/17 8:26 PM) MRSA by PCR Immunizations Given and Recorded Vaccine Date Status [...] No entered on: 06/03/17 Assessment and Plan Extracted from: Title: HF Surgery Author: Jeronimo Sanchez Date: 02/25/17 [...] HVI HFICU in stable condition, intubated Extracted from: Title: UTPCCM Consult note Author: Rosey Rodriguez MD [...] 2 of levophed mg/min on arrival to 5H. Neuro/Psych: - Intubated sedated, keep on fentanyl gtt while intubated CV: -Currently on 1:2 balloon pump, epi of 12mcg/min, levophed at 2 mcg/min -Partially open chest, plan to retake to OR later -CT management per HF Resp: - Chest xray pending, post op gas (patient had been on portable vent--, vent changes made) - Will continue to [...] GI ppx: protonix Vascular/ Access: - CVC: ISAIAH pa cath--pressor requirements, hemodynamic monitoring - Chest tubes: [...] breakdown along with measuring of is/os. Extracted from: Title: Heart Failure Admission H&P Author: Martha Douglas Date: 02/20/17 * Impression and Plan Mr. Wise is a 61 yo M with PMHX HTN, HLD who was transferred to [facility] for CABG in the setting of NSTEMI. [...] course Martha Siddiqui Cardiovascular Disease Fellow Pager [phone] Cardiology Attending Attestation: I have seen and examined the patient with Dr. Shin on 02/20/17. I have reviewed all the clinical information, lab investigation and imaging data. I agree with the above findings, assessment and plan.
--- OUTSIDE RECORDS SUMMARY | 2018-08-08 21:16 | XMS REPORT | Summary of Care ---
Author Author [facility] Organization [facility] Address Unknown Phone Unavailable Encounter SAMANTHA Mckinney(ZORAIDA) [id number] Date(s): 04/13/17 - 04/13/17 [facility] [address] [place] [address]- [phone] Encounter Diagnosis Other complications of procedures, not elsewhere classified, initial encounter (Final) - 04/19/17 Pain in left leg (Final) - Localized edema (Final) - Essential (primary) hypertension (Final) - Type 2 diabetes mellitus without complications (Final) - Discharge Disposition: Home or Self Care Attending Physician: Contreras Baires MD Referring Physician: Contreras Baires MD Vital Signs Most recent to 1 oldest [Reference Range]: Height 193.04 cm (04/13/17 2:32 PM) Temperature Oral 96.4 DegF [96.4-99.1 DegF] (04/13/17 2:32 PM) Blood Pressure 108/70 mmHg [90-140/60-90 mmHg] (04/13/17 2:32 PM) Respiratory Rate 18 BRMIN [14-20 BRMIN] (04/13/17 2:32 PM) Peripheral Pulse 84 bpm Rate [60-100 bpm] (04/13/17 2:32 PM) Weight 96.364 kg (04/13/17 2:32 PM) Body Mass Index 25.86 m2 (04/13/17 2:32 PM) Problem List Condition Effective Dates Status Health Status Informant Diabetes(Confirmed) Resolved Hypercholesteremia(C Resolved onfirmed) Hypertension(Confirm Resolved ed) Allergies, Adverse Reactions, Alerts Substance Reaction Severity Status Levaquin Active Medications No Known Medications Results No data available for this section [...]
--- OUTSIDE RECORDS SUMMARY | 2018-08-08 21:16 | XMS REPORT | Summary of Care ---
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
--- OUTSIDE RECORDS SUMMARY | 2018-08-08 21:16 | XMS REPORT | Summary of Care ---
Author Author [facility] Organization [facility] Address Unknown Phone Unavailable Encounter HQ Hank(FIN) [id number] Date(s): 04/05/17 - 04/05/17 [facility] [address] [place] [address] [phone] Encounter Diagnosis Encounter for other administrative examinations (Final) - 05/10/17 Discharge Disposition: Home or Self Care Attending Physician: Adam Cronin MD Referring Physician: Adam Cronin MD Vital Signs Most recent to 1 oldest [Reference Range]: Height 193.04 cm (04/05/17 1:50 PM) Temperature Oral 96.8 DegF [96.4-99.1 DegF] (04/05/17 1:50 PM) Blood Pressure 158/90 mmHg [90-140/60-90 mmHg] *HI* (04/05/17 1:50 PM) Respiratory Rate 20 BRMIN [14-20 BRMIN] (04/05/17 1:50 PM) Peripheral Pulse 80 bpm Rate [60-100 bpm] (04/05/17 1:50 PM) Problem List Condition Effective Dates Status Health Status Informant Diabetes(Confirmed) Resolved Hypercholesteremia(C Resolved onfirmed) Hypertension(Confirm Resolved ed) Allergies, Adverse Reactions, Alerts Substance Reaction Severity Status Levaquin Active Medications Augmentin 875 mg oral tablet 875 mg=1 tab, PO, BID, X 7 day, # 14 tab, 0 Refill(s), Pharmacy: [facility] Start Date: 04/05/17 Stop Date: 04/12/17 Status: Completed finasteride 5 mg oral tablet 5 mg=1 tab, PO, Daily, # 30 tab, 1 Refill(s), Pharmacy: [facility] Start Date: 04/05/17 Status: Ordered Lasix 20 mg oral tablet 20 mg=1 tab, PO, Q12H, # 30 tab, 1 Refill(s), Pharmacy: [id number] Start Date: 04/05/17 Status: Ordered tramadol 50 mg oral tablet 50 mg=1 tab, PO, Q6H, PRN Pain, X 30 day, # 60 tab, 1 Refill(s), other Start Date: 04/05/17 Stop Date: 06/04/17 Status: Completed Tylenol with Codeine #3 oral tablet 1 - 2 tab, PO, Q6H, PRN Pain, X 14 day, # 30 tab, 0 Refill(s), other Start Date: 04/05/17 Stop Date: 04/19/17 Status: Completed Results No data available for this section [...]
--- OUTSIDE RECORDS SUMMARY | 2018-08-08 21:16 | XMS REPORT | Summary of Care ---
Author Author [facility] Outpatient Imaging [facility]patient [facility] [place] Address Unknown Phone Unavailable Encounter HQ Hank(FIN) [id number] Date(s): 04/13/17 - 04/13/17 [facility] [place] [address] [address]- Encounter Diagnosis Atherosclerosis of three affiliated arteries of extremities with intermittent claudication , bilateral legs (Final) - 04/16/17 Cellulitis, unspecified (Final) - Cutaneous abscess of left lower limb (Final) - Pain in left leg (Final) - Atherosclerotic heart disease of three affiliated coronary artery without angina pectoris (Final) - [...]
--- OUTSIDE RECORDS SUMMARY | 2018-08-08 21:16 | XMS REPORT | Summary of Care ---
Author Author [facility] Organization [facility] Address Unknown Phone Unavailable Encounter HQ Hank(ZORAIDA) [id number] Date(s): 04/05/17 - 04/05/[address] [address]- Encounter Diagnosis Essential (primary) hypertension (Final) - 04/09/17 Dizziness and giddiness (Final) - Shortness of breath (Final) - Edema, unspecified (Final) - Discharge Disposition: Home or Self [...] 1 oldest [Reference Range]: Sodium Lvl [135-145 137 mEq/L mEq/L] (04/05/17 3:30 PM) Potassium Lvl 4.6 mEq/L [3.5-5.1 mEq/L] (04/05/17 3:30 PM) Chloride Lvl [95-109 102 mEq/L mEq/L] (04/05/17 3:30 PM) CO2 [24-32 mEq/L] 28 mEq/L (04/05/17 3:30 PM) AGAP [10.0-20.0 11.6 mEq/L mEq/L] (04/05/17 3:30 PM) CHEM PANEL Most recent to 1 oldest [Reference Range]: Creatinine Lvl 1.32 mg/dL [0.50-1.40 mg/dL] (04/05/17 3:30 PM) eGFR 57 mL/min/1.73m2 1 *NA* (04/05/17 3:30 PM) BUN [7-22 mg/dL] 14 mg/dL (04/05/17 3:30 PM) B/C Ratio [6-25] 11 (04/05/17 3:30 PM) Glucose Lvl [70-99 178 mg/dL mg/dL] *HI* (04/05/17 3:30 PM) Total Protein 8.1 g/dL [6.4-8.4 g/dL] (04/05/17 3:30 PM) Albumin Lvl [3.5-5.0 3.8 g/dL g/dL] (04/05/17 3:30 PM) Globulin [2.7-4.2 4.3 g/dL g/dL] *HI* (04/05/17 3:30 PM) A/G Ratio [0.7-1.6] 0.9 (04/05/17 3:30 PM) Calcium Lvl 9.6 mg/dL [8.5-10.5 mg/dL] (04/05/17 3:30 PM) ALT [0-65 unit/L] 17 unit/L (04/05/17 3:30 PM) AST [0-37 unit/L] 20 unit/L (04/05/17 3:30 PM) Alk Phos [39-136 104 unit/L unit/L] (04/05/17 3:30 PM) Bili Total [0.2-1.3 0.9 mg/dL mg/dL] (04/05/17 3:30 PM) 1Result Comment: The eGFR is calculated [...] 1 oldest [Reference Range]: BNP [<=100 pg/mL] 1307 pg/mL *HI* (04/05/17 3:30 PM) HEMATOLOGY Most recent to 1 oldest [Reference Range]: WBC [3.7-10.4 K/CMM] 8.0 K/CMM (04/05/17 3:30 PM) RBC [4.70-6.10 4.04 M/CMM M/CMM] *LOW* (04/05/17 3:30 PM) Hgb [14.0-18.0 g/dL] 13.9 g/dL *LOW* (04/05/17 3:30 PM) Hct [42.0-54.0 %] 41.0 % *LOW* (04/05/17 3:30 PM) MCV [80.0-94.0 fL] 101.6 fL *HI* (04/05/17 3:30 PM) MCH [27.0-31.0 pg] 34.4 pg *HI* (04/05/17 3:30 PM) MCHC [32.0-36.0 33.9 g/dL g/dL] (04/05/17 3:30 PM) RDW [11.5-14.5 %] 21.4 % *HI* (04/05/17 3:30 PM) MPV [7.4-10.4 fL] 8.1 fL (04/05/17 3:30 PM) Platelet [133-450 204 K/CMM K/CMM] (04/05/17 3:30 PM) Segs [45.0-75.0 %] 52.7 % (04/05/17 3:30 PM) Lymphocytes 22.9 % [20.0-40.0 %] (04/05/17 3:30 PM) Monocytes [2.0-12.0 16.1 % %] *HI* (04/05/17 3:30 PM) Eosinophils [0.0-4.0 7.3 % %] *HI* (04/05/17 3:30 PM) Basophils [0.0-1.0 1.0 % %] (04/05/17 3:30 PM) Segs-Bands # 4.2 K/CMM [1.5-8.1 K/CMM] (04/05/17 3:30 PM) Lymphocytes # 1.8 K/CMM [1.0-5.5 K/CMM] (04/05/17 3:30 PM) Monocytes # [0.0-0.8 1.3 K/CMM K/CMM] *HI* (04/05/17 3:30 PM) Eosinophils # 0.6 K/CMM [0.0-0.5 K/CMM] *HI* (04/05/17 3:30 PM) Basophils # [0.0-0.2 0.1 K/CMM K/CMM] (04/05/17 3:30 PM) Immunizations Given and Recorded Vaccine Date [...]
--- OUTSIDE RECORDS SUMMARY | 2018-08-08 21:17 | XMS REPORT | Summary of Care ---
Author Author [facility] Organization [facility] Address Unknown Phone Unavailable Encounter SAMANTHA Mckinney(ZORAIDA) [id number] Date(s): 08/31/17 - 08/31/17 [facility] [address] [place] [address]- [phone] Discharge Disposition: Home or Self Care Attending Physician: Adam Cronin MD Referring Physician: Contreras Baires MD Vital Signs Most recent to 1 oldest [Reference Range]: Height 193.04 cm (08/31/17 3:15 PM) Weight 115.455 kg (08/31/17 3:15 PM) Body Mass Index 30.98 m2 (08/31/17 3:15 PM) Problem List Condition Effective Dates Status Health Status Informant Diabetes(Confirmed) Resolved Hypercholesteremia(C Resolved onfirmed) Hypertension(Confirm Resolved ed) Allergies, Adverse Reactions, Alerts Substance Reaction Severity Status Levaquin Active Medications Corlanor 5 mg oral tablet 2.5 mg=0.5 tab, PO, BID Start Date: 08/31/17 Status: Ordered Glucosamine Chondroitin PO, Daily Start Date: 08/31/17 Status: Ordered multivitamin Daily Start Date: 08/31/17 Status: Ordered Results No data available for [...] Reg Smoking Cessation Counseling No entered on: 08/31/17 Assessment and Plan No data available for this section
--- OUTSIDE RECORDS SUMMARY | 2018-08-08 21:17 | XMS REPORT | Summary of Care ---
Author Author [facility] Organization [facility] Address Unknown Phone Unavailable Encounter SAMANTHA Mckinney(ZORAIDA) [id number] Date(s): 08/19/17 - 08/19/17 [facility] [address] [place] [address]- [phone] Discharge Disposition: Home or Self Care Attending Physician: Adam Cronin MD Referring Physician: Adam Cronin MD Vital Signs Most recent to 1 oldest [Reference Range]: Height 193.04 cm (08/19/17 11:06 AM) Blood Pressure 82/60 mmHg [90-140/60-90 mmHg] *LOW* (08/19/17 11:06 AM) Respiratory Rate 18 BRMIN [14-20 BRMIN] (08/19/17 11:06 AM) Peripheral Pulse 94 bpm Rate [60-100 bpm] (08/19/17 11:06 AM) Weight 100 kg (08/19/17 11:06 AM) Body Mass Index 26.84 m2 (08/19/17 11:06 AM) Problem List Condition Effective Dates Status [...] Reg Smoking Cessation Counseling No entered on: 08/19/17 Assessment and Plan No data available for this section
--- OUTSIDE RECORDS SUMMARY | 2018-08-08 21:17 | XMS REPORT | Summary of Care ---
Author Author [facility] Organization [facility] Address Unknown Phone Unavailable Encounter HQ Swapna_mateo(FIN) [id number] Date(s): 11/08/17 - 11/08/17 [facility] [address] [place], [place] [address]- [phone] Attending Physician: Adam Cronin MD Referring Physician: Adam Cronin MD Vital Signs No [...] No entered on: 10/16/17 Assessment and Plan No data available for this section
--- OUTSIDE RECORDS SUMMARY | 2018-08-08 21:17 | XMS REPORT | Summary of Care ---
Author Author [facility] Organization [facility] Address Unknown Phone Unavailable Encounter SAMANTHA Mckinney(ZORAIDA) [id number] Date(s): 04/13/17 - 04/13/17 [facility] [address] [place] [address] [phone] Encounter Diagnosis Other complications of procedures, not [...]
--- OUTSIDE RECORDS SUMMARY | 2018-08-08 21:17 | XMS REPORT | Summary of Care ---
Author Author [facility] [place] Organization [facility] [place] Address Unknown Phone Unavailable Encounter SAMANTHA Mckinney(FIN) [id number] Date(s): 04/16/17 - 04/16/17 [facility] [place] [address] [place], [place] [address] Attending Physician: Adam Cronin MD Vital Signs [...]
--- OUTSIDE RECORDS SUMMARY | 2018-08-08 21:17 | XMS REPORT | Summary of Care ---
Author Author [facility] Outpatient Imaging [facility] Outpatient [facility] [place] Address Unknown Phone Unavailable Encounter HQ Hank(FIN) [id number] Date(s): 04/24/17 - 04/24/17 [facility] Outpatient Imaging [place] [address] [place] [address]- Encounter Diagnosis Atherosclerosis of [place] arteries of extremities with intermittent claudication , bilateral legs (Final) - 04/29/17 Other specified postprocedural states (Final) - Discharge Disposition: Home or Self [...]
--- OUTSIDE RECORDS SUMMARY | 2018-08-08 21:17 | XMS REPORT ---
Author Author [facility] Address Unknown Phone Unavailable Care Team Providers Care Mail Superintendent Name Role Phone Unavailable Unavailable Problems This patient has no known problems. Allergies, Adverse Reactions, Alerts This patient has no known allergies or adverse reactions. Medications This patient has no known medications. Encounters Start Date/Time End Date/Time Encounter Type Admission Type Attending Clinicians Care Facility Care Department Encounter ID 2017-08-19 11:03:00 2017-08-19 11:03:00 Outpatient [facility] [id number]
--- OUTSIDE RECORDS SUMMARY | 2018-08-08 21:17 | XMS REPORT | Summary of Care ---
Author Author [facility] Organization [facility] Address Unknown Phone Unavailable Encounter SAMANTHA Mckinney(FIN) [id number] Date(s): 08/31/17 - 08/31/17 [facility] [address] [place] [address]- [phone] Encounter Diagnosis Encounter for other administrative examinations (Final) - 10/18/17 Discharge Disposition: Home or Self Care Attending [...] mg=0.5 tab, PO, BID Start Date: 08/31/17 Stop Date: 10/17/17 Status: Discontinued Glucosamine Chondroitin PO, Daily Start Date: 08/31/17 [...]
--- OUTSIDE RECORDS SUMMARY | 2018-08-08 21:17 | XMS REPORT | Summary of Care ---
Author Author [facility] Organization [facility] Address Unknown Phone Unavailable Encounter HQ Hank(FIN) [id number] Date(s): 05/20/17 - 05/20/17 [facility] [address] [place] [address] [phone] Encounter Diagnosis Hypertensive heart disease with heart failure (Final) - 05/27/17 Left anterior fascicular block (Final) - Abnormal electrocardiogram [ECG] [EKG] (Final) - Presence of cardiac pacemaker (Final) - Discharge Disposition: Home or Self [...] BID, # 60 tab, 3 Refill(s), Pharmacy: [facility] [id number] Start Date: 05/20/17 Stop Date: 06/03/17 Status: Discontinued Lipitor 40 mg oral tablet 40 mg=1 tab, PO, Bedtime, # 30 tab, 3 Refill(s), Pharmacy: [facility] [id number] Start Date: 05/20/17 Status: Ordered metFORMIN 500 mg oral tablet 500 mg=1 tab, PO, BID-Meals, # 60 tab, 1 Refill(s), [place] [id number] Start Date: 05/20/17 Status: Ordered Toprol-XL 25 mg oral tablet, extended release 25 mg=1 tab, PO, Daily, # 30 tab, 3 Refill(s), Pharmacy: [facility] [id number] Start Date: 05/20/17 Stop Date: 06/03/17 Status: Deleted Results No data available for this section [...]
[2018-08-08] MEDS ORDERED: VANCOMYCIN 1GM/NS 250 ML 250 ML IV STA (22:10)
[2018-08-08] MEDS ORDERED: MORPHINE SULFATE INJ 4 MG/ML INJ 1ML IV PRN ×2 (22:15→23:00)
[2018-08-08] MEDS ORDERED: SODIUM CHLORIDE 0.9% 1000ML 1,000 ML IV SCH (22:46)
[2018-08-08] MEDS ORDERED: ONDANSETRON HCL INJ 2MG/ML 2ML 2 MG/ML VIAL IV PRN (23:00)
[2018-08-09] VITALS: BP 129/63
--- OUTSIDE RECORDS SUMMARY | 2018-08-09 00:31 | XMS REPORT | Clinical Summary ---
Author Author Vance Druze Organization [place] [facility] Address Unknown Phone Unavailable Care Team Providers Care Lieutenant Ballistics Name Role Phone Asked, No Pcp PCP Unavailable Allergies Comments Active Allergy Reactions Severity Noted Date Muscle contraction, could not walk Levofloxacin Other (See High 02/13/2009 Comments) Medications End Date Status Medication Sig Dispensed Refills Start Date Active omega 2-aao-plf-fish oil Take 1 0 (FISH OIL) 100-160-1,000 capsule by mg capsule mouth daily. 04/06/2018 Discontinued coenzyme [id number] Take by 0 50-15 mg-unit/5 mL [...] (CHOLEST OFF ORAL) mouth. 04/21/2018 Discontinued omega 4-tsz-ztb-fish oil by NOT 0 (FISH OIL) 100-160-1,000 [...] Left heart cath w lv gram cors [46215 (CPT)] 04/21/2018 Surgery Procedural Cardiology Figueroa Witt [...] Internal Medicine - 04/10/2018 04/06/2018 Travel after 08/08/2017 Immunizations Name Dates Previously Given Next Due [...] Lot Implanted Type Area Manufactur er 03/10/2020 [id number] / / [id number] Device Vasclr Clsr Baln Cath 10ml Cardiovasc N/A: N/A ACCESS Lkng Syr 5fr Rock Mynxgrip - ular CLOSURE [id number] [employer] Implanted: 04/21/2018 (Quantity not on [...] CDT HEMOGLOBIN A1C Routine 04/09/2018 5:48 AM BOWLING OR SKATING FRONT DESK CLERK ECHOCARDIOGRAM 2D Routine 04/07/2018 COMPLETE W MMODE SPECTRAL 11:19 AM BOWLING OR SKATING FRONT DESK CLERK COLOR DOPPLER ([id number]) ESTIMATED GFR Routine 04/07/2018 4:58 AM BOWLING OR SKATING FRONT DESK CLERK FOLATE LEVEL Routine 04/07/2018 4:58 AM BOWLING OR SKATING FRONT DESK CLERK VITAMIN B12 LEVEL Routine 04/07/2018 4:58 AM BOWLING OR SKATING FRONT DESK CLERK THYROID STIMULATING Routine 04/07/2018 HORMONE 4:58 AM BOWLING OR SKATING FRONT DESK CLERK BASIC METABOLIC PANEL Routine 04/07/2018 4:58 AM BOWLING OR SKATING FRONT DESK CLERK HC COMPLETE BLD COUNT Routine 04/07/2018 W/AUTO DIFF 4:58 AM BOWLING OR SKATING FRONT DESK CLERK MRI BRAIN WO CONTRAST STAT 04/06/2018 10:51 PM BOWLING OR SKATING FRONT DESK CLERK ESTIMATED GFR STAT 04/06/2018 6:50 PM BOWLING OR SKATING FRONT DESK CLERK ALCOHOL LEVEL, BLOOD STAT 04/06/2018 6:50 PM BOWLING OR SKATING FRONT DESK CLERK SALICYLATE LEVEL STAT 04/06/2018 6:50 PM BOWLING OR SKATING FRONT DESK CLERK ACETAMINOPHEN LEVEL STAT 04/06/2018 6:50 PM BOWLING OR SKATING FRONT DESK CLERK COMPREHENSIVE METABOLIC STAT 04/06/2018 PANEL 6:50 PM BOWLING OR SKATING FRONT DESK CLERK URINE DRUGS OF ABUSE STAT 04/06/2018 SCREEN 5:48 PM BOWLING OR SKATING FRONT DESK CLERK HC COMPLETE BLD COUNT STAT 04/06/2018 W/AUTO DIFF 5:48 PM BOWLING OR SKATING FRONT DESK CLERK CT CERVICAL SPINE WO STAT 04/06/2018 CONTRAST 5:45 PM BOWLING OR SKATING FRONT DESK CLERK CT HEAD WO CONTRAST STAT 04/06/2018 5:45 PM BOWLING OR SKATING FRONT DESK CLERK after 08/08/2017 Results * Estimated GFR (04/23/2018 4:59 AM CDT) Only the most recent of 6 results within the time period is included. Estimated GFR 54 (A) mL/min/1.73 m2 [place] Comment: MANDAEISM [facility] G1 >=90 Normal or high G2 60-89Mildly decreased [id number] Mildly to moderately decreased V3v88-53 Moderately to severely decreased G4 15-29Severely decreased G5 <15Kidney failure The eGFR was calculated using the Chronic Kidney Disease Epidemiology Collaboration (CKD-EPI) equation. Interpretation is based on recommendations of the National Kidney Foundation-Kidney Disease Outcomes Quality Initiative (NKF-KDOQI) published in 2014. Specimen Plasma specimen Performing Organization Address City/State/Zipcode [place] [address], [address] [place] [address] PATHOLOGY AND GENOMIC MEDICINE [facility] THE [address] [facility] [address] * CBC with platelet and differential (04/23/2018 4:59 AM CDT) Only the most recent of 6 results within the time period is included. WBC 8.58 4.50 - 11.00 k/uL [facility] RBC 3.23 (L) 4.40 - 6.00 m/uL [facility] HGB 11.9 (L) 14.0 - 18.0 g/dL [facility] HCT 35.4 (L) 41.0 - 51.0 % [facility] MCV 109.6 (H) 82.0 - 100.0 fL [facility] MCH 36.8 (H) 27.0 - 34.0 pg [facility] MCHC 33.6 31.0 - 37.0 g/dL [facility] RDW - SD 53.3 37.0 - 55.0 fL [facility] MPV 10.6 8.8 - 13.2 fL [facility] Platelet count 164 150 - 400 k/uL [facility] Nucleated RBC 0.00 /100 WBC [facility] Neutrophils 44.9 39.0 - 69.0 % [facility] Lymphocytes 33.3 25.0 - 45.0 % [facility] Monocytes 14.0 (H) 0.0 - 10.0 % [facility] Eosinophils 6.4 (H) 0.0 - 5.0 % [facility] Basophils 1.2 (H) 0.0 - 1.0 % [facility] Immature 0.2Comment: "Immature 0.0 - 1.0 % [place] granulocytes granulocytes" (promyelocytes, MANDAEISM THE myelocytes, metamyelocytes) [facility] Specimen Blood Performing Organization Address City/[facility] [address]/[facility] [place] Number [place] [address], [address] [place] [address] PATHOLOGY AND GENOMIC MEDICINE [facility] [address] [facility] [address] * Basic metabolic panel (04/23/2018 4:59 AM CDT) Only the most recent of 3 results within the time period is included. Sodium 138 135 - 148 mEq/L [facility] Potassium 3.8 3.5 - 5.0 mEq/L [facility] Chloride 101 98 - 112 mEq/L [facility] CO2 21 (L) 24 - 31 mEq/L [facility] Anion gap 16 (H) 7 - 15 mEq/L [facility] BUN 13 8 - 23 mg/dL [facility] Creatinine 1.36 (H) 0.70 - 1.20 mg/dL [facility] Glucose 103 (H) 65 - 99 mg/dL [facility] Calcium 7.7 (L) 8.8 - 10.2 mg/dL [facility] Specimen Plasma specimen Performing Organization Address City/[facility] [address]/[facility] Phone Number [facility] [place] [address], [address] [place] [address] PATHOLOGY AND GENOMIC MEDICINE [facility] THE [address] [facility] [address] * Lipid panel (04/22/2018 4:37 AM CDT) Only the most recent of 2 results within the time period is included. Cholesterol 155 <200 mg/dL [facility] Triglycerides 121 <150 mg/dL [facility] HDL cholesterol 51 >40 mg/dL [facility] LDL cholesterol 85Comment: Result obtained by <100 mg/dL [place] direct LDL measurement [facility] Lipid panel SeeBelow [place] interpretation Comment: MANDAEISM THE Total Cholesterol [facility] (mg/dL) [facility] <200 Desirable 200-239Borderline -high >=240High Triglycerides (mg/dL) [...] specimen Performing Organization Address City/State/Zipcode Phone Number [facility] DEPARTMENT OF , [address] [place] [address] PATHOLOGY AND GENOMIC MEDICINE [place]DAEISM [address] [facility] [address] * US Gallbladder (04/21/2018 5:06 PM CDT) [...] 1 cm. IMPRESSION: Normal gallbladder ultrasound examination. [facility]-[id number] Procedure Note Interface, Radiology Results Incoming - [...] 1 cm. IMPRESSION: Normal gallbladder ultrasound examination. [facility]-[id number] Performing Organization Address City/State/Zipcode Phone Number [facility] [address] [place] [address] * Cv entry level lab technician procedure (04/21/2018 2:58 PM CDT) Specimen Narrative Performed At Elio Ibarra MD Physician Cardiology Procedures Signed Date of Service:04/21/2018 3:16 PM Signed []Hide copied text []Hover for details Prototype Engineer:Dr. Salcedo Procedure:LHC, MITTAL - LAD angiography, SVG - OM1 and OM2 angiography, SVG - PDA and PLB angiography Indication:NSTEMI Procedure in detail:The patient was prepped and draped in sterile fashion.A 5 Fr short sheath was placed into the R NATUROPATHIC ONCOLOGY PROVIDER successfully.A 4 Fr JL-5 catheter was unable [...] LM:Patent LAD:Mid 80% stenosis LCx:OM 100% occlusion (DIRECTOR OF SPECIAL SERVICES) RCA:Proximal 70% in-stent restenosis (ISR) Patent MITTAL - LAD. Occluded SVG - OM1 and OM2. Occluded SVG - PDA and PLB. Assessment: 1.Patent MITTAL - LAD. 2.Occluded SVG - OM1 and OM2. 3.Occluded SVG - PDA and PLB. 4.[place] OM 100% occlusion (DIRECTOR OF SPECIAL SERVICES). 5.[place] RCA proximal 70% in-stent restenosis. Recommendations: 1.Start antianginals (Ranexa 500 mg bid). 2.F/U Dr. Adam Cronin at [facility] in 1 week to assess the need for PCI RCA. ED to Hosp-Admission (Current) on 04/20/2018 Detailed Report Performing Organization Address City/State/Zipcode Phone Number HM [facility]NGO [address] [place] [address] * Urinalysis screen and microscopy, with reflex to culture (04/21/2018 12:30 PM CDT) Specimen site Clean catch [facility] Color, UA Yellow [facility] Appearance, UA Clear [facility] Specific 1.024 1.001 - 1.035 [place] gravity, UA [facility] pH, UA 6.0 5.0 - 8.5 [facility] Protein, UA Negative Negative [facility] Glucose, UA Negative Negative [facility] Ketones, UA Trace (A) Negative [facility] Bilirubin, UA Negative Negative [facility] Blood, UA Large (A) Negative [facility] Nitrite, UA Negative Negative [facility] Urobilinogen, <2.0 <2.0 [place] UA [facility] Leukocyte Negative Negative [place] esterase, UA [facility] WBC, UA 1 0 - 5 /HPF [facility] RBC, UA 59 (H) 0 - 5 /HPF [facility] Yeast, UA None seen [facility] Yeast with None seen [place] pseudohyphae, [facility] Hyaline casts, 3 /LPF [place] UA MANDAEISM [facility] Specimen Urine Performing Organization Address City/State/[place]code [place] [address], [address] [place] [address] PATHOLOGY AND GENOMIC MEDICINE [place] [facility]ISM THE [address] [facility] [address] * Partial thromboplastin time, activated (04/21/2018 11:47 AM CDT) Only the most recent of 4 results within the time period is included. PTT 59.6 (H) 23.0 - 36.0 sec [place] Comment: MANDAEISM THE PTT therapeutic range for [facility] unfractionated heparin is HOSPITAL 61.0-112.0 seconds which corresponds to Anti-Xa 0.3-0.7 U/ml. Specimen Blood Performing Organization Address City/State/Zipcode Phone Number [facility] [place] [address], [address] [place] [address] PATHOLOGY AND GENOMIC MEDICINE [place] [facility]EISM THE [address] [facility] [address] * Cv echo 2d limited or follow [...] LV EF,BP 47.84 % [facility] [place],d A2C 9.72 cm [facility] [place],d A4C 10.02 cm [facility] [place],s A2C 10.28 cm [facility] [place],s A4C 9.29 cm [facility] LV SV,A2C [...] Organization Address City/State/Zipcode Phone Number SY[address] [place] [address] * Lipase level (04/21/2018 4:20 AM CDT) Lipase 88 (H) 13 - 60 U/L [facility] Specimen Plasma specimen Performing Organization Address City/State/Zipcode [place] Number [place] [address], [address] [place] [address] PATHOLOGY AND GENOMIC MEDICINE [facility] THE [address] [facility] [address] * Amylase level (04/21/2018 4:20 AM CDT) Amylase 62 13 - 73 U/L [facility] Specimen Plasma specimen Performing Organization Address City/State/Zipcode [place] Number [place] [address], [address] [place] [address] PATHOLOGY AND GENOMIC MEDICINE [facility] THE [address] [facility] [address] * Comprehensive metabolic panel (04/21/2018 4:20 AM CDT) Only the most recent of 3 results within the time period is included. Sodium 136 135 - 148 mEq/L [facility] Potassium 4.8 3.5 - 5.0 mEq/L [facility] Chloride 102 98 - 112 mEq/L [facility] CO2 21 (L) 24 - 31 mEq/L [facility] Anion gap 13 7 - 15 mEq/L [facility] BUN 13 8 - 23 mg/dL [facility] Creatinine 1.61 (H) 0.70 - 1.20 mg/dL [facility] Glucose 127 (H) 65 - 99 mg/dL [facility] Calcium 8.6 (L) 8.8 - 10.2 mg/dL [facility] Protein 6.5 6.3 - 8.3 g/dL [place] Comment: MANDAEISM [facility] [place] [facility] 4.6-7.0 g/dL HOSPITAL 1 week 4.4-7.6 g/dL 7 months-1year 5.1-7.3 g/dL 1-2 years5.6-7 .5 g/dL >3 years6.0-8 .0 g/dL 18-150 6.3-8.3 g/dL Albumin 3.4 (L) 3.5 - 5.0 g/dL [facility] A/G ratio 1.1 0.7 - 3.8 [facility] Alkaline 41 40 - 129 U/L [place] phosphatase [facility] AST 49 10 - 50 U/L [facility] ALT 45 5 - 50 U/L [facility] Total bilirubin 1.0 0.0 - 1.2 mg/dL [facility] Specimen Plasma specimen Performing Organization Address City/State/Zipcode [place] [address], [address] [place] [address] PATHOLOGY AND GENOMIC MEDICINE [facility] THE [address] [facility] [address] * CT Abdomen Pelvis Wo Contrast (04/21/2018 [...] which are not well characterized but likely b2b outside sales representative of small cysts or hemangiomas. BILIARY:Normal. [...] of the distal esophagus, suggestive of esophagitis. [facility]-[id number] Procedure Note Hm Interface, Radiology Results Incoming [...] which are not well characterized but likely b2b outside sales representative of small cysts or hemangiomas. BILIARY: [...] of the distal esophagus, suggestive of esophagitis. [facility]-[id number] Performing Organization Address City/State/Zipcode Phone Number [facility] [address] [place] [address] * Troponin (04/20/2018 9:26 PM CDT) Only the most recent of 4 results within the time period is included. Troponin 0.865 (H) 0.000 - 0.300 ng/mL [place] Comment: MANDAEISM THE 0.30 - 1.49 [facility] indicate increased risk of acute coronary syndrome. >=1.5 ng/ml Consistent with acute myocardial infarction. The diagnostic value of a single normal or non-diagnostic result is questionable.Serial samples at 2-6 hour intervals are required to rule out acute myocardial injury. Specimen Plasma specimen Performing Organization Address [facility] [address]/Zipcode [place] [address], [address] [place] [address] PATHOLOGY AND GENOMIC MEDICINE [place] MANDAEISM THE [address] [facility] [address] * ECG 12 lead (04/20/2018 7:22 PM CDT) Only the most recent of 3 results within the time period is included. Ventricular 105 [facility] rate Atrial rate 105 [facility] CA interval 172 [facility] QRSD interval 120 [facility] QT interval 386 [facility] QTC interval 510 [facility] P axis 1 14 [facility] QRS axis 1 -52 [facility] T wave axis 101 [facility] EKG impression Sinus tachycardia with [facility] MUSE occasional premature ventricular complexes-Possible Left atrial enlargement-Left anterior fascicular block-Cannot rule out Inferior infarct (cited on or before 20-APR-2018)-Anterior infarct (cited on or before 20-APR-2018)-Abnormal ECG- Specimen Narrative Performed At Performing Organization Address City/[facility] [address]/Zipcode Phone Number [facility] MUSE [address] [place] [address] * Gastrointestinal panel (04/20/2018 3:50 PM CDT) Gastrointestina Negative for all pathogens [place] l panel tested: MANDAEISM Negative for Salmonella HOSPITAL Negative for Campylobacter [...] Nonpreserved Performing Organization Address City/State/Zipcode Phone Number [facility] DEPARTMENT [address] [place] [address] PATHOLOGY AND GENOMIC MEDICINE [place] MANDAEISM [address] [place] [address] HOSPITAL * POC glucose (04/20/2018 3:10 PM CDT) Only the most recent of 2 results within the time period is included. [facility] POC glucose 150 (H) 65 - 99 mg/dL [place] Comment: MANDAEISM THE Meter ID: [id number] [facility] Prototype Engineer: [facility] Specimen Performing Organization Address City/State/[place] [address], [address] [place] [address] PATHOLOGY AND GENOMIC MEDICINE [place] MANDAEISM THE [address] [facility] [address] * CTA Chest W Wo Contrast (04/20/2018 [...] clinically indicated. 4.Other incidental findings as above. [id number] Procedure Note Hm Interface, Radiology Results Incoming [...] indicated. 4. Other incidental findings as above. [facility]-[id number] Performing Organization Address City/[facility] [address]/[facility] Phone Number [facility] [address] [place] [address] * XR Chest 1 Vw Portable (04/20/2018 10:34 AM CDT) Specimen Narrative Performed At EXAMINATION:XR CHEST 1 VW [facility]ABLE [facility] CLINICAL H[facility]:chest pain COMPARISON:None IMPRESSION: 1.Prior sternotomy. Heart size is at the upper limits normal. 2.No infiltrates or effusions. 3.Vessels are not congested. [id number] Procedure Note Interface, Radiology Results Incoming - 04/20/2018 10:42 AM CDT EXAMINATION: XR CHEST 1 VW PORTABLE CLINICAL HISTORY: chest pain COMPARISON: None IMPRESSION: 1. Prior sternotomy. Heart size is at the upper limits normal. 2. No infiltrates or effusions. 3. Vessels are not congested. [id number] Performing Organization Address [facility] [address]/[facility] Phone Number [facility] [address] [place] [address] * Prothrombin time with INR (04/20/2018 10:33 AM CDT) Prothrombin 14.1 11.5 - 14.5 sec STEIN time MANDAEISM [facility] INR 1.1 [place] Comment: DENISSE BERGER [facility] Ratio (INR) is a therapeutic HOSPITAL monitoring tool for patients who are stable on oral anticoagulant therapy. An INR of 2.0-3.0 is suggested for deep vein thrombosis/pulmonary embolism. Specimen Blood Performing Organization Address City/[facility] [address]/[facility] Phone Number [facility] DEPARTMENT OF , [address] [place] [address] PATHOLOGY AND GENOMIC MEDICINE [place]EISM THE [address] [facility] [address] * Anti Xa, unfractionated (04/20/2018 10:33 AM CDT) Anti Xa, <0.10 (L)Comment: Therapeutic 0.30 - 0.70 U/mL [place] unfractionated Range: 0.30 - 0.70 U/mL MANDAEISM [facility] Specimen Blood Performing Organization Address [facility] [address]/[facility] Phone Number [facility] DEPARTMENT OF [facility], [address] [place] [address] PATHOLOGY AND [facility] MANDAEISM THE [address] [place] [phone] * Type and screen (04/20/2018 10:31 AM CDT) ABO grouping B [place] MANDAEISM [facility] Rh type POS [place] [facility] Antibody screen NEG [place] (gel) MANDAEISM [facility] Specimen Blood Performing Organization Address [facility] Phone Number [facility] [place] [address], [address] [place] [address] PATHOLOGY AND GENOMIC MEDICINE [place] MANDAEISM [address] [place] [phone] * B natriuretic peptide (04/20/2018 10:31 AM CDT) BNP 507 (H) 0 - 100 pg/mL [place] MANDAEISM [facility] Specimen Blood Performing Organization Address City/[facility] [address]/[facility] Phone Number [facility] DEPARTMENT OF [address] [place] [address] PATHOLOGY AND [facility] MANDAEISM THE [address] [place] [phone] * Hemoglobin A1c (04/09/2018 5:48 AM BOWLING OR SKATING FRONT DESK CLERK) Hemoglobin A1C 6.3 (H) 4.0 - 5.6 % [place] Comment: MANDAEISM THE HbA1c cutoffs for diagnosing [facility] diabetes: HOSPITAL 4.0% - 5.6%=normal 5.7% - 6.4%=increased risk for diabetes (prediabetes) >=6.5%=diabetes Goals for glycemic control (ADA 2016) < 7.0%Target for non adults with diabetes. More or less stringent targets may be appropriate for individual patients. <7.5% Target for Children and adolescents with type 1 diabetes. Specimen Blood Performing Organization Address City/State/Zipcode Phone Number [facility] [place] [address], [address] [place] [address] PATHOLOGY AND GENOMIC MEDICINE [place]DAEISM THE [address] [facility] [address] * Echocardiogram complete w contrast and 3D if needed (04/07/2018 11:19 AM BOWLING OR SKATING FRONT DESK CLERK) Ao Root 4.35 cm [facility] Diameter [...] LV EF,BP 38.56 % HM SY[facility] [place],d A2C 8.73 cm [facility] [place],d A4C 9.49 cm HM [facility] [place],s A2C 7.91 cm HM [facility] [place],s A4C 8.86 cm HM [facility] LV,s 3.82 [...] estimate pulmonary artery pressure. Performing Organization Address City/[facility] [address]/[facility] Phone Number SY[address] [place] [address] * Thyroid stimulating hormone (04/07/2018 4:58 AM BOWLING OR SKATING FRONT DESK CLERK) TSH 2.317 0.270 - 4.200 uIU/mL [facility] Specimen Plasma specimen Performing Organization Address City/[facility] [address]/Zipcode [place] Number [place] [address], [address] [place] [address] PATHOLOGY AND GENOMIC MEDICINE [facility] THE [address] [facility] [address] * Folate level (04/07/2018 4:58 AM BOWLING OR SKATING FRONT DESK CLERK) Folate 9.0 4.8 - 24.2 ng/mL [facility] Specimen Serum Performing Organization Address [facility] [address]/Zipcode Phone Number [facility] DEPARTMENT OF [address] [place] [address] PATHOLOGY [place] [address] HOSPITAL * Vitamin B12 level (04/07/2018 4:58 AM BOWLING OR SKATING FRONT DESK CLERK) Vitamin B12 445 211 - 946 pg/mL [place] Comment: MANDAEISM Significant overlap exists HOSPITAL between normal and deficiency states. However, most patients with deficiencies will have Serum B12 <200 pg/mL. Specimen Serum Performing Organization Address [facility] [address]/[facility] Phone Number [facility] DEPARTMENT OF [address] [place] [address] PATHOLOGY AND GENOMIC MEDICINE [facility] [address] [place] [address] HOSPITAL * MRI Brain Wo Contrast (04/06/2018 10:51 PM BOWLING OR SKATING FRONT DESK CLERK) Specimen Narrative Performed At [facility] EXAMINATION: MRI [...] acute ischemia, acute hemorrhage, or fluid collections. [facility]-[id number] Procedure Note Interface, Radiology Results Incoming - 04/06/2018 10:56 PM BOWLING OR SKATING FRONT DESK CLERK EXAMINATION: MRI BRAIN WO CONTRAST COMPARISON: March [...] acute ischemia, acute hemorrhage, or fluid collections. [facility]-[id number] Performing Organization Address [facility] [address]/Zipcode Phone Number [facility] [address] [place] [address] * Alcohol level, blood (04/06/2018 6:50 PM BOWLING OR SKATING FRONT DESK CLERK) Alcohol 146.2 mg/dL [facility] Comment: [facility] Detected Legal Intoxication in [place]80 mg/dL (0.08%) - Whole Blood Toxic Concentration 200 mg/dL (0.2%) Potentially Fatal3 50 - 500 mg/dL (0.35 - 0.5%) Alcohol percent 0.146 % [facility] Specimen Plasma specimen Performing Organization Address City/State/Zipcode Phone Number [facility] DEPARTMENT OF , [address] [place] [address] PATHOLOGY AND GENOMIC MEDICINE [place] [facility] THE [address] [facility] [address] * Acetaminophen level (04/06/2018 6:50 PM BOWLING OR SKATING FRONT DESK CLERK) Acetaminophen <8.0 (L) 10.0 - 30.0 ug/mL [facility] level [facility] Specimen Plasma specimen Performing Organization Address City/[facility] [address]/[facility] Phone Number [facility] DEPARTMENT OF , [address] [place] [address] PATHOLOGY AND GENOMIC MEDICINE [place] [facility] THE [address] [facility] [address] * Salicylate level (04/06/2018 6:50 PM BOWLING OR SKATING FRONT DESK CLERK) Salicylate <0.4 (L) 3.0 - 30.0 mg/dL [facility] Specimen Plasma specimen Performing Organization Address City/[facility] [address]/[facility] Phone Number [facility] DEPARTMENT OF [address] [place] [address] PATHOLOGY AND GENOMIC MEDICINE [place] [facility] THE [address] [facility] [address] * Urine drugs of abuse screen (04/06/2018 5:48 PM BOWLING OR SKATING FRONT DESK CLERK) Amphetamine Negative [facility] screen, urine [facility] Barbiturate Negative [facility] screen, urine [facility] Benzodiazepine Positive (A) [place] screen, urine [facility] Cannabinoid Negative [place] screen, urine [facility] Cocaine screen, Negative [place] urine [facility] Methadone Negative [place] metabolite [facility] THE (EDDP), urine [facility] Opiates screen, Negative [place] urine [facility] Oxycodone Negative [place] screen, urine [facility] Phencyclidine Negative [place] screen, urine [facility] Tricyclic Negative [place] screen, urine Comment: [facility] THE Drug screen minimum [facility] concentration of detectability HOSPITAL Amphetamines 1000 ng/mL [...] Urine Performing Organization Address City/State/Zipcode Phone Number [facility] [place] [address], [address] [place] [address] PATHOLOGY AND GENOMIC MEDICINE [facility] THE [address] [facility] [address] * CT Cervical Spine Wo Contrast (04/06/2018 5:45 PM BOWLING OR SKATING FRONT DESK CLERK) Specimen Narrative Performed At Study:CT CERVICAL SPINE [...] chest is unremarkable. IMPRESSION: No acute abnormality. [id number] Procedure Note Interface, Radiology Results Incoming - 04/06/2018 6:01 PM BOWLING OR SKATING FRONT DESK CLERK Study:CT CERVICAL SPINE WO CONTRAST History:fall head [...] chest is unremarkable. IMPRESSION: No acute abnormality. [id number] Performing Organization Address City/State/Zipcode Phone Number [facility] [address] [place] [address] * CT Head Wo Contrast (04/06/2018 5:45 PM BOWLING OR SKATING FRONT DESK CLERK) Specimen Narrative Performed At EXAMINATION:[facility] CLINICAL H[facility]:fallhead injury COMPARISON:None. TECHNIQUE: Noncontrast head [...] No CT evidence of acute intracranial abnormality. [id number] Procedure Note Interface, Radiology Results Incoming - 04/06/2018 5:54 PM BOWLING OR SKATING FRONT DESK CLERK EXAMINATION: CT HEAD WO CONTRAST CLINICAL HISTORY: [...] No CT evidence of acute intracranial abnormality. [id number] Performing Organization Address City/State/Zipcode Phone Number [facility] [address] [place] [address] after 08/08/2017 Advance Directives Patient has advance care planning documents, and code status on file. For more i nformation, please contact: Vance Mchugh [address] [place] [address] Date Inactivated Comments Code Status Date Activated 04/23/2018 9:33 PM Full Code 04/20/2018 1:08 PM Code Status decision reached by: Patient
--- OUTSIDE RECORDS SUMMARY | 2018-08-09 00:32 | XMS REPORT | Clinical Summary ---
Author Author ADELA[facility] [place] [place] Address Unknown Phone Unavailable Care Team Providers Care Quarter Seamer Name Role Phone PCP Unavailable Allergies Not [...] Not on file Results Not on fileafter 08/08/2017 Insurance Payer Benefit Subscriber ID Type Phone Address Plan / Group [employer] - MGD CARE [employer] xxxxxxxxxxx HMO/POS HMO/POS/OP EN ACCESS
--- OUTSIDE RECORDS SUMMARY | 2018-08-09 00:35 | XMS REPORT | Continuity of Care Document ---
Author Author [employer] Organization [employer] Address Unknown Phone Unavailable Care Team Providers Care X Ray Physician Name Role Phone [employer] Information [facility] Unavailable Unavailable Problems Problem Status Onset Date Classification Date Reported Comments Source Weakness 01/06/2018 05/06/2018 [facility] Encounter for other administrative examinations 10/19/2017 03/20/2018 [facility] HOSPITAL FOLLOW UP WITH MONITOR 2 WKS Active 10/18/2017 [facility] CODE STROKE POSS Active 10/16/2017 [facility] ATAXIA, RIGHT SIDED WEAKNESS Active 10/16/2017 [facility] 2 WKS FOLLOW UP Active 08/19/2017 [facility] I50.9, I10 Active 06/03/2017 [facility] Hypertensive heart disease with heart failure 05/28/2017 08/26/2017 [facility] I50.9 Active 05/20/2017 [facility] Atherosclerosis of [place] arteries of extremities with intermittent claudication, bilateral legs 04/30/2017 07/31/2017 [facility] [place] Other complications of procedures, not elsewhere classified, initial encounter 04/20/2017 07/21/2017 [facility] I70.213 - ATHSCL [place] ARTERIES OF EXTR Active 04/13/2017 [facility] 6 MONTHS FOLLOW UP Active 04/13/2017 [facility] R42 R06.02 I10 R60.9 Active 04/05/2017 [facility] FOLLOW UP 2 WKS Active 04/05/2017 [facility] HOSPITAL FOLLOW UP Active 04/02/2017 [facility] FOLLOW UP Active 04/01/2017 [facility] Non-ST elevation myocardial infarction 03/23/2017 06/13/2017 [facility] 1 WK F/U Active 03/18/2017 [facility] HOSPITAL F/U Active 03/09/2017 [facility] Atherosclerotic heart disease of [place] coronary artery with unspecified angina pectoris 02/26/2017 05/28/2017 [facility] CORONARY ARTERY DISEASE Active 02/19/2017 [facility] CP Active 02/15/2017 [facility] PNEUMONIA, CHEST PAIN Active 02/15/2017 [facility] Pneumonia, unspecified organism 05/28/2017 [facility] Acute on chronic diastolic heart failure 05/28/2017 [facility] Type 2 diabetes mellitus without complications 05/06/2018 [facility] Hyperlipidemia, unspecified 05/06/2018 [facility] Morbid obesity due to excess calories 05/28/2017 [facility] Hypomagnesemia 05/28/2017 [facility] Body mass index 29.0-29.9, adult 05/28/2017 [facility] Diabetes Resolved Problem 05/28/2018 [facility] [place] Hypercholesteremia Resolved Problem 05/28/2018 [facility] [place], OPISebastián [place],[facility] Hypertension Resolved Problem 05/28/2018 [facility] [place], [facility] Acute systolic heart failure 06/13/2017 [facility] Cardiogenic shock 06/13/2017 [facility] Respiratory failure, unspecified with hypercapnia 06/13/2017 [facility] Encephalopathy, unspecified 06/13/2017 [facility] Ventricular fibrillation 06/13/2017 [facility] Ventricular tachycardia 06/13/2017 [facility] Acute posthemorrhagic anemia 06/13/2017 [facility] Acidosis 06/13/2017 [facility] Other specified coagulation defects 06/13/2017 [facility] Stenosis of other vascular prosthetic devices, implants and grafts, initial encounter 06/13/2017 [facility] Intraoperative hemorrhage and hematoma of a circulatory system organ or structure complicating a cardiac bypass 06/13/2017 [facility] Thrombocytopenia, unspecified 06/13/2017 [facility] Ischemic cardiomyopathy 06/13/2017 [facility] Presence of coronary angioplasty implant and graft 06/13/2017 [facility] alf use of oral hypoglycemic drugs 06/13/2017 [facility] Allergy status to other antibiotic agents status 06/13/2017 [facility] Surgical operation with implant of artificial internal device as the cause of abnormal reaction of the patient, or of later complication, without mention of misadventure at the time of the procedure 06/13/2017 [facility] Nonrheumatic aortic stenosis 06/13/2017 [facility] Postprocedural hypotension 06/13/2017 [facility] Physical restraint status 06/13/2017 [facility] Other specified peripheral vascular diseases 06/13/2017 [facility] Restlessness and agitation 06/13/2017 [facility] Surgical operation with anastomosis, bypass or graft as the cause of abnormal reaction of the patient, or of later complication, without mention of misadventure at the time of the procedure 06/13/2017 [facility] Personal history of urinary calculi 06/13/2017 [facility] Encounter for immunization 06/13/2017 [facility] Cellulitis, unspecified 07/21/2017 [facility] [place] Cutaneous abscess of left lower limb 07/21/2017 [facility] [place] Pain in left leg 07/21/2017 [facility] OPID [place] Localized edema 07/21/2017 [facility] Essential hypertension 07/21/2017 [facility] Pure hypercholesterolemia, unspecified 06/23/2017 [facility] Body mass index 25.0-25.9, adult 06/23/2017 [facility] Presence of aortocoronary bypass graft 06/23/2017 [facility] Dizziness and giddiness 07/12/2017 [facility] Shortness of breath 07/12/2017 [facility] Edema, unspecified 07/12/2017 [place] Left anterior fascicular block 08/26/2017 [facility] Abnormal electrocardiogram [ECG] [EKG] 08/26/2017 [facility] Presence of cardiac pacemaker 08/26/2017 [facility] Other specified postprocedural states 07/31/2017 [facility] [place] Atherosclerotic heart disease of [place] coronary artery without angina pectoris 05/06/2018 [facility] OPID [place],[facility] Hypertensive heart and chronic kidney disease with heart failure and stage 1 through stage 4 chronic kidney disease, or unspecified chronic kidney disease 05/06/2018 [facility] Personal history of transient ischemic attack , and cerebral infarction without residual deficits 05/06/2018 [facility] Chronic systolic heart failure 05/06/2018 [facility] Chronic kidney disease, stage 3 05/06/2018 [facility] Type 2 diabetes mellitus with diabetic chronic kidney disease 05/06/2018 [facility] Obesity, unspecified 05/06/2018 [place] Ataxia, unspecified 05/06/2018 [facility] Atherosclerosis of aorta 05/06/2018 [facility] Degenerative disease of nervous system, unspecified 05/06/2018 [place] Cerebral cysts 05/06/2018 [facility] alf use of antithrombotics/antiplatelets 05/06/2018 [facility] 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 05/06/2018 [facility] alf use of aspirin 05/06/2018 [facility] PNEUMONIA, UNSPECIFIED ORGANISM Active [facility] ATAXIA, UNSPECIFIED Active [place] WEAKNESS Active [facility] Medications Medication Details Route Status Patient Instructions [...] Expires in days from Date Inactive 10/17/2017 [facility] Dextrose 50% Syringe 12.5 gm, 25 mL, Route: IVP, Drug Form: INJ, Dosing Weight 100.909, kg, PRN, PRN Blood Glucose Results, Start date: 10/17/17 10:45:00 CDT, Duration: 30 day, Stop date: 11/16/17 10:44:00 CDT Inactive 10/17/2017 [facility] Glucagon 1 mg, Route: IM, Drug form: PDR/INJ, PRN, Dosing Weight 100.909, kg, PRN Blood Glucose Results, Start date: 10/17/17 10:45:00 CDT, Duration: 30 day, Stop date: 11/16/17 10:44:00 CDT Inactive 10/17/2017 [facility] potassium phosphate-sodium phosphate 250 mg-45 mg-298 mg oral tablet 250 mg, 1 tab, Route: PO, Drug Form: TAB, ONCE, Start date: 10/17/17 10:31:00 CDT, Stop date: 10/17/17 10:31:00 CDTNotes: (Same as: K-Phos Neutral, Phospha 250 Neutral) Inactive 10/17/2017 [facility] K-Phos Original 250 mg, Route: PO, Drug form: TAB, ONCE, Dosing Weight 100.909, kg, Start date: 10/17/17 10:25:00 CDT, Stop date: 10/17/17 10:25:00 CDT Inactive 10/17/2017 [facility] MAGNESIUM GLUCONATE 500 mg, 1 tab, Route: PO, Drug form: TAB, ONCE, Dosing Weight 100.909, kg, Start date: 10/17/17 10:25:00 CDT, Stop date: 10/17/17 10:25:00 CDTNotes: (Same as: [place]) Magnesium gluconate 500mg=27mg elemental magnesium Dose= mg magnesium gluconate(___mg elemental magnesium) Inactive 10/17/2017 [facility] Aspirin 81 MG Enteric Coated Tablet 81 mg, 1 tab, Route: PO, Drug form: ECTAB, Daily, Dosing Weight 100.909, kg, Start date: 10/17/17 9:00:00 CDT, Duration: 30 day, Stop date: 11/15/17 9:00:00 CDTNotes: Do not crush or chew. (Same As: Ecotrin) Inactive 10/17/2017 [facility] Plavix 75 mg, 1 tab, Route: PO, Drug form: TAB, Daily, Dosing Weight 100.909, kg, Start date: 10/17/17 9:00:00 CDT, Duration: 30 day, Stop date: 11/15/17 9:00:00 CDTNotes: (Same As: Plavix) No Longer Active 10/17/2017 [facility] clopidogrel 75 mg, 1 tab, Route: PO, Drug form: TAB, Daily, Dosing Weight 100.909, kg, Start date: 10/17/17 9:00:00 CDT, Duration: 30 day, Stop date: 11/15/17 9:00:00 CDTNotes: (Same As: Plavix) Inactive 10/17/2017 [facility] Vitamin B12 1,000 microgram, 1 mL, Route: IM, Drug form: INJ, ONCE, Dosing Weight 100.909, kg, Start date: 10/17/17 8:05:00 CDT, Stop date: 10/17/17 8:05:00 CDTNotes: (Same As: Vitamin B12) Inactive 10/17/2017 [facility] pantoprazole 40 mg, 1 tab, Route: PO, Drug form: ECTAB, Before Breakfast, Dosing Weight 100.909, kg, Start date: 10/17/17 7:30:00 CDT, Duration: 30 day, Stop date: 11/15/17 7:30:00 CDTNotes: Tablet should not be chewed or crushed. (Same as: Protonix) Inactive 10/17/2017 [facility] atorvastatin 40 mg, 1 tab, Route: PO, Drug form: TAB, Bedtime, Dosing Weight 100.909, kg, Start date: 10/16/17 21:00:00 CDT, Duration: 30 day, Stop date: 11/14/17 21:00:00 CDTNotes: (Same as: Lipitor) No Longer Active 10/17/2017 [facility] 24 HR Metoprolol Tartrate 25 MG Extended Release Tablet [Toprol] 25 mg, 1 tab, Route: PO, Drug form: ERTAB, Daily, Start date: 10/16/17 9:00:00 CDT, Duration: 30 day, Stop date: 11/14/17 9:00:00 CDTNotes: (Same as: Toprol XL) Do Not Crush Inactive 10/16/2017 [facility] Corlanor 2.5 mg, 0.5 tab, Route: PO, Drug form: TAB, BID, Dosing Weight 100.909, kg, Start date: 10/16/17 9:00:00 CDT, Duration: 30 day, Stop date: 11/14/17 17:00:00 CDTNotes: Hold and contact prescriber if HR Inactive 10/16/2017 [facility] Finasteride 5 mg, 1 tab, Route: PO, Drug form: TAB, Daily, Dosing Weight 100.909, kg, Start date: 10/16/17 9:00:00 CDT, Duration: 30 day, Stop date: 11/14/17 9:00:00 CDTNotes: (Same as: Proscar) "Do Not Crush" Women of childbearing age should not touch or handle broken tablets No Longer Active 10/16/2017 [facility] Acetaminophen 325 MG / Hydrocodone Bitartrate 5 MG Oral Tablet [[place] 5/325] 1 tab, Route: PO, Drug Form: TAB, Dosing Weight 100.909, kg, Q6H, PRN Pain Score 1-3, Start date: 10/16/17 8:39:00 CDT, Duration: 30 day, Stop date: 11/15/17 8:38:00 CDTNotes: (Same as: [place] 325/5) Do not exceed 4gm/day of acetaminophen. No Longer Active 10/16/2017 [facility] pantoprazole 40 mg, PO, Daily, # 30 tab, 0 Refill(s) Active 10/16/2017 [place] Metformin hydrochloride 500 MG Oral Tablet 500 mg=1 tab, PO, BID, 0 Refill(s) Active 10/16/2017 [place] atorvastatin 40 mg oral tablet 40 mg=1 tab, PO, Bedtime, # 30 tab, 0 Refill(s) Active 10/16/2017 [facility] Furosemide 20 mg, PO, Q12H, 0 Refill(s) No Longer Active 10/16/2017 [place] clopidogrel 75 mg, PO, Daily, 0 Refill(s) Active 10/16/2017 [place] Finasteride 5 mg=1 tab, PO, Daily, # 30 tab, 0 Refill(s) Active 10/16/2017 [place] NS 500 mL 500 mL, Rate: 75 ml/hr, Infuse over: 6.7 hr, Route: IV, Dosing Weight 100.909 kg, Total Volume: 500, Start date: 10/16/17 5:05:00 CDT, Duration: 1 doses or times, Stop date: 10/16/17 11:46:00 CDT, 2.33, m2 Inactive 10/16/2017 [facility] NS 1,000 mL 1,000 mL, Rate: 150 ml/hr, Infuse over: 6.7 hr, Route: IV, Dosing Weight 100.909 kg, Total Volume: 1,000, Start date: 10/16/17 4:56:00 CDT, Duration: 1 doses or times, Stop date: 10/16/17 11:37:00 CDT, 2.33, m2 Inactive 10/16/2017 [facility] Acetaminophen 300 MG / Codeine Phosphate 60 MG Oral Tablet [Tylenol with Codeine #4] 1 tab, PO, BID, PRN Pain, # 32 tab, 0 Refill(s) Active 10/16/2017 [facility] Magnesium Oxide 400 mg, PO, Daily, 0 Refill(s) No Longer Active 10/16/2017 [facility] Aspirin 324 mg, 4 tab, Route: CHEW, Drug form: CHEWTAB, ONCE, Dosing Weight 113.636, kg, Priority: STAT, Start date: 10/16/17 2:00:00 CDT, Stop date: 10/16/17 2:00:00 CDTNotes: Take with food. Inactive 10/16/2017 [facility] Plavix 75 mg, 1 tab, Route: PO, Drug form: TAB, ONCE, Dosing Weight 113.636, kg, Priority: STAT, Start date: 10/16/17 2:00:00 CDT, Stop date: 10/16/17 2:00:00 CDTNotes: (Same As: Plavix) Inactive 10/16/2017 [facility] Saline Flush 0.9% 10 mL, Route: IVP, Drug Form: INJ, Dosing Weight 115.455, kg, PRN, PRN Line Flush, Start date: 10/16/17 0:59:00 CDT, Duration: 30 day, Stop date: 11/15/17 0:58:00 CDTNotes: Same as: BD Posiflush Sterile No Longer Active 10/16/2017 [facility] multivitamin Daily Active 08/31/2017 [facility] Glucosamine Chondroitin PO, Daily Active 08/31/2017 [facility] ivabradine 5 MG Oral Tablet [Corlanor] 2.5 mg=0.5 tab, PO, BID No Longer Active 08/31/2017 [facility] 24 HR Metoprolol Tartrate 50 MG Extended Release Tablet [Toprol] 50 mg=1 tab, PO, Daily, # 30 tab Active 06/03/2017 [facility] sacubitril 49 MG / valsartan 51 MG Oral Tablet [Entresto] 1 tab, PO, BID, # 56 tab Active 06/03/2017 [facility] atorvastatin 40 MG Oral Tablet [Lipitor] 40 mg=1 tab, PO, Bedtime, # 30 tab, 3 Refill(s), Pharmacy: [facility] [id number] Active 05/20/2017 [facility] Metformin hydrochloride 500 MG Oral Tablet 500 mg=1 tab, PO, BID-Meals, # 60 tab, 1 Refill(s), Pharmacy: [facility] [id number] Active 05/20/2017 [facility] 24 HR Metoprolol Tartrate 25 MG Extended Release Tablet [Toprol] 25 mg=1 tab, PO, Daily, # 30 tab, 3 Refill(s), Pharmacy: [facility] [id number] No Longer Active 05/20/2017 [facility] sacubitril 24 MG / valsartan 26 MG Oral Tablet [Entresto] 1 tab, PO, BID, # 60 tab, 3 Refill(s), Pharmacy: [facility] [id number] No Longer Active 05/20/2017 [facility] Furosemide 20 MG Oral Tablet [Lasix] 20 mg=1 tab, PO, Q12H, # 30 tab, 1 Refill(s), Pharmacy: [facility] [id number] Active 04/05/2017 [facility] finasteride 5 mg oral tablet 5 mg=1 tab, PO, Daily, # 30 tab, 1 Refill(s), Pharmacy: [facility] [id number] Active 04/05/2017 [facility] tramadol hydrochloride 50 MG Oral Tablet 50 mg=1 tab, PO, Q6H, PRN Pain, X 30 day, # 60 tab, 1 Refill(s), other No Longer Active 04/05/2017 [facility] Acetaminophen 300 MG / Codeine Phosphate 30 MG Oral Tablet [Tylenol with Codeine #3] 1 - 2 tab, PO, Q6H, PRN Pain, X 14 day, # 30 tab, 0 Refill(s), other No Longer Active 04/05/2017 [facility] Amoxicillin 875 MG / Clavulanate 125 MG Oral Tablet [Augmentin 875-mg] 875 mg=1 tab, PO, BID, X 7 day, # 14 tab, 0 Refill(s), Pharmacy: [facility] [id number] No Longer Active 04/05/2017 [facility] Metformin hydrochloride 500 MG Oral Tablet 500 mg=1 tab, PO, BID-Before Meals, # 30 tab, 1 Refill(s) Active 03/07/2017 [facility] Acetaminophen 300 MG / Codeine Phosphate 30 MG Oral Tablet [Tylenol with Codeine #3] See Instructions, 1-2 tab PO Q12hrs for pain, # 30 tab, 0 Refill(s) No Longer Active 03/07/2017 [facility] pantoprazole 40 mg oral enteric coated tablet 40 mg=1 tab, PO, Before Breakfast, # 30 tab, 2 Refill(s) Active 03/07/2017 [facility] clopidogrel 75 mg oral tablet 75 mg=1 tab, PO, Daily, # 30 tab, 2 Refill(s) Active 03/07/2017 [facility] metoprolol tartrate 25 mg oral tablet 12.5 mg=0.5 tab, PO, Q12H, # 30 tab, 2 Refill(s) No Longer Active 03/07/2017 [facility] Insulin Glargine 100 UNT/ML Injectable Solution 20 unit, SUB-Q, Before Dinner, # 10 mL, 2 Refill(s) Inactive 03/07/2017 [facility] Furosemide 20 MG Oral Tablet 20 mg=1 tab, PO, Daily, # 30 tab, 2 Refill(s) No Longer Active 03/07/2017 [facility] Morphine 2 mg, 0.5 mL, Route: IVP, Drug form: INJ, ONCE, Dosing Weight 100.909, kg, Start date: 03/06/17 19:56:00 [employer]OVE, Stop date: 03/06/17 19:56:00 CSTNotes: (Same as:MORPhine Sulfate) Inactive 03/07/2017 [facility] Tramadol 50 mg, 1 tab, Route: PO, Drug form: TAB, ONCE, Dosing Weight 100.909, kg, Priority: NOW, Start date: 03/05/17 22:34:00 [employer], Stop date: 03/05/17 22:34:00 CSTNotes: Not to exceed 400mg/day. (Same As: U ltram) Inactive 03/06/2017 [facility] Insulin Glargine 20 unit, 0.2 mL, Route: SUB-Q, Drug form: SOLN, Before Dinner, Dosing Weight 100.909, kg, Start date: 03/05/17 16:30:00 [employer], Duration: 30 day, Stop date: 04/03/17 16:30:00 CSTNotes: (Same as: Lantus) Do not hold insulin without contacting prescriber WASTE: F/P - Black; E - Municipal Trash Bin "single patient use only" No Longer Active 03/05/2017 [facility] Insulin Lispro 4 unit, 0.04 mL, Route: SUB-Q, Drug form: SOLN, TID-Before Meals, Dosing Weight 100.909, kg, PRN Blood Glucose Results, Start date: 03/04/17 15:15:00 [employer]OVE, Duration: 30 day, Stop date: 04/03/17 15:14: 00 CSTNotes: (Same as: Humalog ) Roll in palms of hands gently; Do not shake `vigorously. "Single Patient Use Only " WASTE: F/P - Black; E - Municipal Trash Bin Stable for 28 days at room temperature. Expires in days from Date No Longer Active 03/04/2017 [facility] Insulin Glargine 15 unit, 0.15 mL, Route: SUB-Q, Drug form: SOLN, Before Dinner, Dosing Weight 100.909, kg, Start date: 03/03/17 16:30:00 [employer], Stop date: 04/01/17 16:30:00 CSTNotes: (Same as: Lantus) Do not hold insu connie without contacting prescriber WASTE: F/P - Black; E - Municipal Trash Bin "single patient use only" No Longer Active 03/03/2017 [facility] Furosemide 20 MG Oral Tablet [Lasix] 20 mg, 1 tab, Route: PO, Drug form: TAB, Daily, Dosing Weight 100.909, kg, Start date: 03/03/17 9:52:00 [employer], Duration: 30 day, Stop date: 04/02/17 9:00:00 CSTNotes: (Same as: Lasix) May cause GI upset. Give with food or milk. No Longer Active 03/03/2017 [facility] Furosemide 40 MG Oral Tablet [Lasix] 10 mg, 0.5 tab, Route: PO, Drug form: TAB, Daily, Dosing Weight 100.909, kg, Start date: 03/03/17 9:00:00 [employer], Duration: 30 day, Stop date: 04/01/17 9:00:00 CSTNotes: (Same as: Lasix) 10 mg=1/2 x 20 mg TAB May cause GI upset. Give with food or milk. Inactive 03/03/2017 [facility] Miralax 17 gm, 1 pkt, Route: PO, Drug form: PWDR, Daily, Dosing Weight 100.909, kg, Start date: 03/03/17 9:00:00 [employer], Duration: 30 day, Stop date: 04/01/17 9:00:00 CSTNotes: Dissolve in 8 oz of water or juice. (Same as: Miralax) No Longer Active 03/03/2017 [facility] Seroquel 25 mg, 1 tab, Route: PO, Drug form: TAB, Bedtime, Dosing Weight 100.909, kg, Start date: 03/02/17 21:00:00 [employer], Duration: 30 day, Stop date: 03/31/17 21:00:00 CSTNotes: (Same as: SEROquel) No Longer Active 03/03/2017 [facility] Ferrlecit 125 mg, 10 mL, Route: IVPB, Daily, Dosing Weight 100.909, kg, Start date: 03/02/17 9:45:00 [employer], Duration: 30 day, Stop date: 04/01/17 9:00:00 CSTNotes: (sodium ferric gluconate complex (elemental iron) 62.5 mg/5 ml INJ) "Limited stability. Use immediately after admixture" (Same as: Ferrlecit) MEDICATION WASTE Product Size: 62.5 mg Product Wasted: __0_ mg No Longer Active 03/02/2017 [facility] Lasix 20 mg, 2 mL, Route: IVP, Drug form: INJ, ONCE, Dosing Weight 100.909, kg, Start date: 03/02/17 9:45:00 [employer], Stop date: 03/02/17 9:45:00 CSTNotes: (Same as: Lasix) Inactive 03/02/2017 [facility] clopidogrel 75 mg, 1 tab, Route: PO, Drug form: TAB, Daily, Dosing Weight 100.909, kg, Start date: 03/02/17 9:00:00 [employer]OR [employer]OVE, Duration: 30 day, Stop date: 03/31/17 9:00:00 CSTNotes: (Same As: Plavix) No Longer Active 03/02/2017 [facility] pantoprazole 40 mg, 1 tab, Route: PO, Drug form: ECTAB, Before Breakfast, Dosing Weight 100.909, kg, Start date: 03/02/17 7:30:00 [employer], Duration: 30 day, Stop date: 03/31/17 7:30:00 CSTNotes: Tablet should not be chewed or crushed. (Same as: Protonix) No Longer Active 03/02/2017 [facility] Insulin Lispro 4 unit, 0.04 mL, Route: SUB-Q, Drug form: SOLN, Bedtime, Dosing Weight 100.909, kg, PRN Blood Glucose Results, Start date: 03/01/17 23:39:00 [employer], Duration: 30 day, Stop date: 03/31/17 23:38:00 CSTNotes: (Same as: Humalog ) Roll in palms of hands gently; Do not shake `vigorously. "Single Patient Use Only " WASTE: F/P - Black; E - Municipal Trash Bin Stable for 28 days at room temperature. Expires in days from Date No Longer Active 03/02/2017 [facility] metoprolol tartrate 12.5 mg, 0.5 tab, Route: PO, Drug form: TAB, Q12H, Dosing Weight 100.909, kg, Start date: 03/01/17 21:00:00 [employer], Duration: 30 day, Stop date: 03/31/17 9:00:00 CSTNotes: (Same as: Lopressor) 12.5 mg=1/2 X 25 mg TAB No Longer Active 03/02/2017 [facility] Acetaminophen 325 MG / Hydrocodone Bitartrate 5 MG Oral Tablet [[place] 5/325] 1 tab, Route: PO, Drug Form: TAB, Dosing Weight 100.909, kg, Q4H, PRN Pain Score 1-3, Start date: 03/01/17 16:08:00 [employer], Duration: 30 day, Stop date: 03/31/17 16:07:00 CSTNotes: (Same as: [place] 325/5) Do not exceed 4gm/day of acetaminophen. No Longer Active 03/01/2017 [facility] Seroquel 25 mg, 1 tab, Route: PO, Drug form: TAB, BID, Dosing Weight 100.909, kg, Start date: 02/28/17 17:00:00 [employer], Stop date: 03/30/17 9:00:00 CSTNotes: (Same as: SEROquel) No Longer Active 02/28/2017 [facility] Sodium Chloride 0.9% IV 1,000 mL + M.V.I.-12 10 mL Daily + folic acid IV 1 mg Daily + thiamine IV 1 1,000 mL, Rate: 100 ml/hr, Infuse over: 10.1 hr, Route: IV, Dosing Weight 100.909 kg, Total Volume: 1,011.2, Start date: 02/28/17 12:59:00 [employer], Duration: 3 day, Stop date: 03/03/17 12:58:00 [employer], 2.33, m2 No Longer Active 02/28/2017 [facility] Seroquel 25 mg, 1 tab, Route: PO, Drug form: TAB, ONCE, Dosing Weight 100.909, kg, Priority: STAT, Start date: 02/28/17 11:57:00 [employer], Stop date: 02/28/17 11:57:00 CSTNotes: (Same as: SEROquel) Inactive 02/28/2017 [facility] Lasix 20 mg, 2 mL, Route: IVP, Drug form: INJ, BID, Dosing Weight 100.909, kg, Start date: 02/27/17 13:20:00 [employer], Duration: 30 day, Stop date: 03/29/17 9:00:00 CSTNotes: (Same as: Lasix) No Longer Active 02/27/2017 [facility] Seroquel 25 mg, 1 tab, Route: PO, Drug form: TAB, BID, Dosing Weight 100.909, kg, Priority: NOW, Start date: 02/27/17 10:41:00 [employer], Duration: 30 day, Stop date: 03/29/17 9:00:00 CSTNotes: (Same as: SEROquel) No Longer Active 02/27/2017 [facility] Insulin Glargine 5 unit, 0.05 mL, Route: SUB-Q, Drug form: SOLN, Daily, Dosing Weight 100.909, kg, Start date: 02/27/17 9:00:00 [employer], Duration: 30 day, Stop date: 03/28/17 9:00:00 CSTNotes: Same as: Lantus) Do not hold insulin without contacting prescriber WASTE: F/P - Black; E - Municipal Trash Bin No Longer Active 02/27/2017 [facility] Acetaminophen 10 MG/ML Injectable Solution 1,000 mg, 100 mL, Route: IV, Drug form: INJ, ONCE, Dosing Weight 100.909, kg, For > or=50 kg, Start date: 02/27/17 3:06:00 [employer], Stop date: 02/27/17 3:06:00 CSTNotes: Infuse over 15 minutes Do not exceed 4gm/day of acetaminophen MEDICATION WASTE Product Size: 1000 mg Product Wasted: ___ mg Inactive 02/27/2017 [facility] Haldol 3 mg, 0.6 mL, Route: IV, Drug form: INJ, ONCE, Dosing Weight 100.909, kg, Priority: STAT, Start date: 02/26/17 22:41:00 [employer], Stop date: 02/26/17 22:41:00 CSTNotes: (Same as: Haldol) Inactive 02/27/2017 [facility] heparin 5,000 unit, 1 mL, Route: SUB-Q, Drug form: INJ, Q8H-06, Dosing Weight 100.909, kg, Start date: 02/26/17 22:00:00 [employer], Duration: 30 day, Stop date: 03/28/17 14:00:00 CSTNotes: porcine heparin No Longer Active 02/27/2017 [facility] Insulin Glargine 8 unit, 0.08 mL, Route: SUB-Q, Drug form: SOLN, Before Dinner, Dosing Weight 100.909, kg, Start date: 02/26/17 18:15:00 [employer], Stop date: 03/28/17 16:30:00 CSTNotes: (Same as: Lantus) Do not hold insul in without contacting prescriber WASTE: F/P - Black; E - Municipal Trash Bin "single patient use only" No Longer Active 02/27/2017 [facility] Insulin Lispro 4 unit, 0.04 mL, Route: SUB-Q, Drug form: SOLN, TID-Before Meals, Dosing Weight 100.909, kg, PRN Blood Glucose Results, Start date: 02/26/17 17:39:00 [employer], Duration: 30 day, Stop date: 03/28/17 17:38: 00 CSTNotes: (Same as: Humalog ) Roll in palms of hands gently; Do not shake `vigorously. "Single Patient Use Only " WASTE: F/P - Black; E - Municipal Trash Bin Stable for 28 days at room temperature. Expires in days from Date No Longer Active 02/26/2017 [facility] Dextrose 50% Syringe 25 gm, 50 mL, Route: IVP, Drug Form: INJ, Dosing Weight 100.909, kg, PRN, PRN Blood Glucose Results, Start date: 02/26/17 17:39:00 [employer], Duration: 30 day, Stop date: 03/28/17 17:38:00 [employer] No Longer Active 02/26/2017 [facility] Glucagon 1 mg, Route: IM, Drug form: PDR/INJ, PRN, Dosing Weight 100.909, kg, PRN Blood Glucose Results, Start date: 02/26/17 17:39:00 [employer], Duration: 30 day, Stop date: 03/28/17 17:38:00 [employer] No Longer Active 02/26/2017 [facility] Dexmedetomidine 400 microgram, 4 mL, Rate: Titrate, Start Dose: 0.2 microgram/kg/hr, Titration: 0.1 microgram/kg/hr every 30 min, Goal(s): comfort, Max Dose: 0.5 microgram/kg/hr, Route: IV, Dosing Weight 100.909 kg, Total Volume: 100, Start date: 02/26/17 16:28:00 CS... No Longer Active 02/26/2017 [facility] Haldol 2 mg, Route: IV, ONCE, Dosing Weight 100.909, kg, Start date: 02/26/17 15:58:00 [employer], Stop date: 02/26/17 15:58:00 [employer] Inactive 02/26/2017 [facility] Versed 2 mg, Route: IVP, ONCE, Dosing Weight 100.909, kg, Start date: 02/26/17 15:10:00 [employer], Stop date: 02/26/17 15:10:00 [employer] Inactive 02/26/2017 [facility] Midazolam 2 mg, Route: IVP, ONCE, Dosing Weight 100.909, kg, Start date: 02/26/17 7:55:00 [employer], Stop date: 02/26/17 7:55:00 [employer] Inactive 02/26/2017 [facility] heparin additive 25,000 unit [400 unit/hr] + Premix Diluent Sodium Chloride 0.45% 500 mL 500 mL, Rate: 8 ml/hr, Infuse over: 62.5 hr, Route: IV, Dosing Weight 100.909 kg, Total Volume: 500 mL, Start date: 02/25/17 21:10:00 [employer], Duration: 30 day, Stop date: 03/27/17 21:09:00 [employer], 2.33, [id number]: Total Concentration=50 unit/ ml Total fcxtmf=732 ml Send Med Request 2 hours prior to next bag No Longer Active 02/26/2017 [facility] Famotidine 20 mg, 2 mL, Route: IVP, Drug form: INJ, Q12H, Dosing Weight 100.909, kg, Start date: 02/25/17 21:00:00 [employer], Duration: 30 day, Stop date: 03/27/17 9:00:00 CSTNotes: (Same as: Pepcid) Can be dilute in 5-10cc NS IVP: Slow IV push over at least 2 minutes. No Longer Active 02/26/2017 [facility] docusate sodium 100 mg oral capsule 100 mg, 1 cap, Route: PO, Drug form: CAP, BID, Dosing Weight 100.909, kg, Start date: 02/25/17 17:00:00 [employer], Stop date: 03/27/17 9:00:00 CSTNotes: (Same as: Colace) (Do Not Crush) No Longer Active 02/25/2017 [facility] Aspirin 81 MG Chewable Tablet 81 mg, 1 tab, Route: PO, Drug form: CHEWTAB, Daily, Dosing Weight 100.909, kg, Start date: 02/25/17 13:00:00 [employer], Duration: 30 day, Stop date: 03/27/17 9:00:00 CSTNotes: Take with food. No Longer Active 02/25/2017 [facility] Diphenhydramine 25 mg, 0.5 mL, Route: IVP, Drug form: INJ, Q8H, Dosing Weight 100.909, kg, PRN Itching, Start date: 02/25/17 11:34:00 [employer], Duration: 30 day, Stop date: 03/27/17 11:33:00 CSTNotes: (Same as: Benadryl) No Longer Active 02/25/2017 [facility] Diphenhydramine 25 mg, 1 cap, Route: PO, Drug form: CAP, TID, Dosing Weight 100.909, kg, PRN Itching, Start date: 02/25/17 11:26:00 [employer], Duration: 30 day, Stop date: 03/27/17 11:25:00 CSTNotes: (Same as: Benadryl) No Longer Active 02/25/2017 [facility] Famotidine 20 mg, 2 mL, Route: IVP, Drug form: INJ, ONCE, Dosing Weight 100.909, kg, Start date: 02/25/17 11:25:00 [employer], Stop date: 02/25/17 11:25:00 CSTNotes: (Same as: Pepcid) Can be dilute in 5-10cc NS IVP: Slow IV push over at least 2 minutes. Inactive 02/25/2017 [facility] Versed 2 mg, 2 mL, Route: IV, Drug form: INJ, Q2H, Dosing Weight 100.909, kg, PRN Agitation, Start date: 02/25/17 10:54:00 [employer], Duration: 30 day, Stop date: 03/27/17 10:53:00 CSTNotes: (Same as: Versed) MEDICATION WASTE Product Size: 2 mg Product Wasted: ___ mg No Longer Active 02/25/2017 [facility] Versed 2 mg, 2 mL, Route: IVP, Drug form: INJ, ONCE, Dosing Weight 100.909, kg, Start date: 02/25/17 10:52:00 [employer], Stop date: 02/25/17 10:52:00 CSTNotes: (Same as: Versed) MEDICATION WASTE Product Size: 2 mg Product Wasted: ___ mg Inactive 02/25/2017 [facility] Mupirocin 1 appl, Route: NASAL, Q12H, Drug form: OINT, Start date: 02/24/17 21:00:00 [employer], Stop date: 03/01/17 9:00:00 [employer], MRSA Decolonization No Longer Active 02/25/2017 [facility] Sodium Chloride 0.9% (titrate) 250 mL 250 mL, Rate: housecalls nurse for use with blood product administration, Dosing Weight 100.909, kg, Route: IV, Total Volume: 250, Start Date: 02/24/17 19:20:00 [employer], Duration: 30 day, Stop date: 03/26/17 19:19:00 [employer], Replace Every: 24 hr No Longer Active 02/25/2017 [facility] Pepcid 20 mg, 2 mL, Route: IV, Drug form: INJ, ONCE, Start date: 02/24/17 13:59:00 [employer], Stop date: 02/24/17 13:59:00 CSTNotes: (Same as: Pepcid) Can be dilute in 5-10cc NS IVP: Slow IV push over at least 2 minutes. Inactive 02/24/2017 [facility] Zantac 50 mg, Route: IVPB, ONCE, Dosing Weight 100.909, kg, Start date: 02/24/17 13:34:00 [employer], Stop date: 02/24/17 13:34:00 [employer] Inactive 02/24/2017 [facility] Diphenhydramine 25 mg, 0.5 mL, Route: IVP, Drug form: INJ, ONCE, Dosing Weight 100.909, kg, PRN Itching, Start date: 02/24/17 13:34:00 CSTNotes: (Same as: Benadryl) Inactive 02/24/2017 [facility] methylPREDNISolone SODium SUCCinate 125 mg, 2 mL, Route: IVP, Drug form: INJ, Q6H, Dosing Weight 100.909, kg, Start date: 02/24/17 12:00:00 [employer], Duration: 30 day, Stop date: 03/26/17 6:00:00 CSTNotes: (Same as:Solu-MEDROL, A-Methapred) No Longer Active 02/24/2017 [facility] albumin human 5% intravenous solution 12.5 gm, 250 mL, 500 ml/hr, Route: IV, Drug Form: INJ, Dosing Weight 100.909, kg, ONCE, Start date: 02/24/17 11:21:00 [employer], Stop date: 02/24/17 11:21:00 CSTNotes: LOT#: Mfg: WASTE: F/P - Red; E -Red (Same as: Albuminar) "blood product derivative" Inactive 02/24/2017 [facility] cefepime 1 gm, Route: IVPB, [id number], Dosing Weight 100.909, kg, (CrCl 30 - 49 ml/min), Start date: 02/24/17 10:00:00 [employer], Duration: 10 day, Stop date: 03/05/17 22:00:00 [employer], ABX Indication: Immunocompromised Host ProphylaxisNotes: (Same As: Maxipime) MEDICATION WASTE Product Size: 1000 mg Product Wasted: ___ mg No Longer Active 02/24/2017 [facility] Fluconazole 400 mg, 200 mL, Route: IVPB, Drug form: INJ, [id number], Dosing Weight 100.909, kg, Start date: 02/24/17 10:00:00 [employer], Duration: 30 day, Stop date: 03/25/17 10:00:00 CSTNotes: (Same as: Diflucan) No Longer Active 02/24/2017 [facility] pantoprazole 40 mg, Route: IVP, Drug form: INJ, Daily, Dosing Weight 100.909, kg, Start date: 02/24/17 9:00:00 [employer], Duration: 30 day, Stop date: 03/25/17 9:00:00 CSTNotes: For IV push reconstitute with 10 ml 0.9% sodium chloride and push over 2 minutes. (Same as: Protonix) No Longer Active 02/24/2017 [facility] Miralax 17 gm, 1 pkt, Route: PO, Drug form: PWDR, BID, Dosing Weight 100.909, kg, Start date: 02/24/17 9:00:00 [employer], Duration: 30 day, Stop date: 03/25/17 17:00:00 CSTNotes: Dissolve in 8 oz of water or juice. (Same as: Miralax) No Longer Active 02/24/2017 [facility] Docusate Sodium 100 MG Oral Capsule [Colace] 100 mg, 1 cap, Route: PO, Drug form: CAP, BID, Dosing Weight 100.909, kg, Start date: 02/24/17 9:00:00 [employer], Duration: 30 day, Stop date: 03/25/17 17:00:00 CSTNotes: (Same as: Colace) (Do Not Crush) No Longer Active 02/24/2017 [facility] vancomycin 1,000 mg, Route: IVPB, Drug form: INJ, [id number], Dosing Weight 100.909, kg, Start date: 02/24/17 9:00:00 [employer], Duration: 30 day, Stop date: 03/25/17 9:00:00 [employer], ABX Indication: Surgical ProphylaxisNotes: TIME CRITICAL MEDICATION (Same As: Vancocin) Infusion rate 2001 mg: infuse over 2.5 hours For adult patients only: Round to nearest 250 mg per Medical Staff approval MEDICATION WASTE Product Size: 1000 mg Product Wasted: ___ mg No Longer Active 02/24/2017 [facility] Dexmedetomidine 400 microgram, 4 mL, Rate: Titrate, Start Dose: 0.2 microgram/kg/hr, Titration: 0.1 microgram/kg/hr every 30 min, Goal(s): RASS -1, Max Dose: 1.5 microgram/kg/hr, Route: IV, Dosing Weight 100.909 kg, Total Volume: 100, Start date: 02/24/17 8:42:00 [employer]... No Longer Active 02/24/2017 [facility] Benadryl 25 mg, 0.5 mL, Route: IVP, Drug form: INJ, ONCE, Dosing Weight 100.909, kg, PRN Itching, Start date: 02/24/17 8:42:00 CSTNotes: (Same as: Benadryl) Inactive 02/24/2017 [facility] Vasopressin (LONGTERM) 40 unit, 2 mL, Rate: Titrate, Start Dose: 0.04 unit/min, Titration: start at .04, Goal(s): MAP of at least 60, Route: IV, Dosing Weight 100.909 kg, Total Volume: 100, Start date: 02/24/17 8:15:00 [employer], Duration: 30 day, Stop date: 03/26/17 8:14:00 CSTNotes: (Same As: Pitressin, Vasostrict) No Longer Active 02/24/2017 [facility] Cefazolin 2 gm, Route: IVPB, Drug form: INJ, Q8H, Dosing Weight 100.909, kg, Start date: 02/24/17 0:00:00 [employer], Duration: 3 doses or times, Stop date: 02/24/17 16:00:00 [employer], ABX Indication: Surgical Prophylaxis No Longer Active 02/24/2017 [facility] ocular lubricant 1 appl, Route: BOTH EYES, Q6H, Drug form: OINT, Start date: 02/24/17 0:00:00 [employer], Duration: 30 day, Stop date: 03/25/17 18:00:00 CSTNotes: (Same as: Lacri-Lube, Duratears Naturale, Artificial Tears, and Tears Again ) No Longer Active 02/24/2017 [facility] sodium bicarbonate 8.4% 50 mEq, 50 ml, Route: IVP, Drug Form: INJ, Dosing Weight 100.909, kg, ONCE, Start date: 02/23/17 23:29:00 [employer], Stop date: 02/23/17 23:29:00 CSTNotes: (sodium bicarb 8.4% (1 mEq/ml) 50 ml VL) Inactive 02/24/2017 [facility] ceFAZolin (SCIP) 2 gm, 20 mL, Route: IVPB, Drug form: SOLN, Q8Hnow, Dosing Weight 100.909, kg, Start date: 02/23/17 23:00:00 [employer], Duration: 3 doses or times, Stop date: 02/24/17 15:00:00 [employer], ABX Indication: Surgical ProphylaxisNotes: (Same as Ancef) No Longer Active 02/24/2017 [facility] albumin human 25% intravenous solution 25 gm, 100 mL, Route: IV, Drug form: INJ, ONCE, Dosing Weight 100.909, kg, Start date: 02/23/17 21:08:00 [employer], Stop date: 02/23/17 21:08:00 CSTNotes: Lot #: Mfg: (Same as: Plasbumin-25) "blood product derivative" WASTE: F/P - Red; E -Red MEDICATION WASTE Product Size: 25 gm Product Wasted: _0_ gm Inactive 02/24/2017 [facility] Vancomycin 1,500 mg, Route: IVPB, Drug form: INJ, Q12H, Dosing Weight 100.909, kg, Time Critical Medication, Start date: 02/23/17 21:00:00 [employer], Duration: 2 doses or times, Stop date: 02/24/17 9:00:00 [employer], ABX I ndication: Surgical Prophylaxis Inactive 02/24/2017 [facility] chlorhexidine gluconate 1.2 MG/ML Mouthwash 15 mL, Route: Swab Mouth, Q12H, Drug form: LIQ, Start date: 02/23/17 21:00:00 [employer], Duration: 30 day, Stop date: 03/25/17 9:00:00 CSTNotes: (Same As: Peridex) No Longer Active 02/24/2017 [facility] albumin human 25% intravenous solution 25 gm, Route: IV, ONCE, Dosing Weight 100.909, kg, Start date: 02/23/17 20:27:00 [employer], Stop date: 02/23/17 20:27:00 [employer] Inactive 02/24/2017 [facility] Cefazolin 2 gm, 20 mL, Route: IVPB, Drug form: SOLN, Q8Hnow, Dosing Weight 100.909, kg, Start date: 02/23/17 20:00:00 [employer], Duration: 3 doses or times, Stop date: 02/24/17 12:00:00 [employer], ABX Indication: Surgical ProphylaxisNotes: (Same as Ancef) Inactive 02/24/2017 [facility] sodium phosphate 30 mmol, Route: IVPB, ONCE, Dosing Weight 100.909, kg, Priority: STAT, Start date: 02/23/17 19:17:00 [employer], Stop date: 02/23/17 19:17:00 [employer] Inactive 02/24/2017 [facility] potassium phosphate 30 mmol, 10 mL, Route: IVPB, ONCE, Dosing Weight 100.909, kg, Start date: 02/23/17 19:08:00 [employer], Stop date: 02/23/17 19:08:00 CSTNotes: (Same as: K Phosphate.) 1 mMol phoshate has 1.47 mEq potassium Infuse over 4 hours Inactive 02/24/2017 [facility] Sodium Chloride 0.9% (titrate) 250 mL 250 mL, Rate: housecalls nurse for use with blood product administration, Dosing Weight 100.909, kg, Route: IV, Total Volume: 250, Start Date: 02/23/17 19:04:00 [employer], Duration: 30 day, Stop date: 03/25/17 19:03:00 [employer], Replace Every: 24 hr No Longer Active 02/24/2017 [facility] Vancomycin 1,000 mg, Route: IVPB, Drug form: INJ, [id number], Dosing Weight 100.909, kg, Start date: 02/23/17 19:00:00 [employer], Duration: 30 day, Stop date: 03/24/17 19:00:00 [employer], ABX Indication: Surgical ProphylaxisNotes: TIME CRITICAL MEDICATION (Same As: Vancocin) Infusion rate 2001 mg: infuse over 2.5 hours For adult patients only: Round to nearest 250 mg per Medical Staff approval MEDICATION WASTE Product Size: 1000 mg Product Wasted: ___ mg Inactive 02/24/2017 [facility] Norepinephrine 8 mg, 8 mL, Rate: Titrate [...] catheter (PICC) line. No Longer Active 02/24/2017 [facility] Epinephrine 8 mg, 8 mL, Rate: Titrate for MAP of 60, Start Dose: 2 microgram/min, Titration: For MAP of 60, Goal(s): MAP of 60, Route: IV, Dosing Weight 100.909 kg, Total Volume: 250, Start date: 02/23/17 18:40:00 [employer], Duration: 30 day, Stop date: 03/25/17 18:39:... No Longer Active 02/24/2017 [facility] chlorhexidine gluconate 1.2 MG/ML Mouthwash 15 mL, Route: Swab Mouth, PRN, Drug form: LIQ, PRN Other -See Comment, Start date: 02/23/17 18:27:00 [employer], Duration: 30 day, Stop date: 03/25/17 18:26:00 CSTNotes: (Same As: Peridex) No Longer Active 02/24/2017 [facility] Fentanyl 1,000 microgram, 20 mL, Rate: Titrate, Start Dose: 50 microgram/hr, Titration: 25 microgram/hour every 15 minutes, Goal(s): RASS - 2, Max Dose: 300 microgram/hr, Route: IV, Dosing Weight 100.909 kg, Total Volume: 20, Start date: 02/23/17 18:23:00 [employer],... No Longer Active 02/24/2017 [facility] Amicar 5 gm, 20 mL, Route: IVPB, Drug form: INJ, ONCE, Dosing Weight 100.909, kg, Start date: 02/23/17 18:21:00 [employer], Stop date: 02/23/17 18:21:00 CSTNotes: (Same as: Amicar) Inactive 02/24/2017 [facility] Fentanyl 600 microgram, 30 mL, Route: IV, WATER ANALYST Dose: 10 mcg, WATER ANALYST Lockout: 10 minutes, Continuous Basal Rate: 0 mg, 4 Hour Limit (In MCG): 240, Drug Form: INJ, Continuous, Start date: 02/23/17 17:44:00 [employer], Durati on: 1 day, Stop date: 02/24/17 17:43:00 CSTNotes: Concentration is 20 micrograms/ml No Longer Active 02/23/2017 [facility] Naloxone 0.04 mg, 0.1 mL, Route: IVP, Drug form: INJ, Q2MIN, Dosing Weight 100.909, kg, PRN Narcotic Reversal, Start date: 02/23/17 17:44:00 [employer], Duration: 30 day, Stop date: 03/25/17 17:43:00 CSTNotes: Same as Narcan No Longer Active 02/23/2017 [facility] Dextrose 50% Syringe 12.5 gm, 25 mL, Route: IVP, Drug Form: INJ, Dosing Weight 100.909, kg, PRN, PRN Blood Glucose Results, Start date: 02/23/17 17:44:00 [employer], Duration: 30 day, Stop date: 03/25/17 17:43:00 [employer] No Longer Active 02/23/2017 [facility] Insulin regular 100 unit + 99 mL, Rate: Start Insulin Drip Per ICU Protocol, Dosing Weight 100.909, kg, Route: IVPB, Total Volume: 100, Start Date: 02/23/17 17:44:00 [employer], Duration: 30 day, Stop date: 03/25/17 17:43:00 [employer], Replace Every: 24 hrNotes: Final Concentration 1unit/1ml WASTE: F/P - Black; E - Municipal Trash Bin No Longer Active 02/23/2017 [facility] Zofran 4 mg, 2 mL, Route: IV, Drug form: INJ, Q6H, Dosing Weight 100.909, kg, PRN Nausea, Start date: 02/23/17 17:44:00 [employer], Duration: 30 day, Stop date: 03/25/17 17:43:00 CSTNotes: (Same as: Chavo) MEDICATION WASTE Product Size: 4 mg Product Wasted: _0_ mg No Longer Active 02/23/2017 [facility] sennosides, LONGTERM 8.6 MG Oral Tablet 8.6 mg, 1 tab, Route: PO, Drug Form: TAB, Dosing Weight 100.909, kg, BID, PRN Constipation, Start date: 02/23/17 17:44:00 [employer], Duration: 30 day, Stop date: 03/25/17 17:43:00 CSTNotes: (Same as: [place]) No Longer Active 02/23/2017 [facility] Cardene 40 mg in NS 200 mL (Titrate.) IV 40 mg 40 mg, 200 mL, Rate: Titrate, Start Dose: 5 mg/hr, Titration: increase or decrease by 5 but no more than 15, Goal(s): MAP 70, Route: IV, Dosing Weight 100.909 kg, Total Volume: 200 mL, Start date: 02/23/17 17:44:00 [employer], Duration: 30 day, Stop date: ...Notes: Same as: Cardene Concentration: (0.2 mg /1 ml ) No Longer Active 02/23/2017 [facility] Acetaminophen 325 MG / Hydrocodone Bitartrate 10 MG Oral Tablet 2 tab, Route: PO, Drug Form: TAB, Dosing Weight 100.909, kg, Q4H, PRN Pain Score 4-6, Start date: 02/23/17 17:44:00 [employer], Duration: 4 day, Stop date: 02/27/17 17:43:00 CSTNotes: Do not exceed 4gm/day of acetaminophen. (Same as: [place] 325/10) No Longer Active 02/23/2017 [facility] Acetaminophen 650 mg, 2 tab, Route: PO, Drug form: TAB, Q4H, Dosing Weight 100.909, kg, PRN Pain 1-3/Temp > 100.4 F, Start date: 02/23/17 17:44:00 [employer], Duration: 30 day, Stop date: 03/25/17 17:43:00 CSTNotes: Do not exceed 4 gm/day. (Same as: Tylenol) No Longer Active 02/23/2017 [facility] hydrocortisone (ANES) Route: IV, Drug form: INJ, ONCE, Stop date: 02/23/17 16:30:00 [employer] Inactive 02/23/2017 [facility] Stimate (ANES) 4 microgram Route: IV, Drug Form: INJ, Start date: 02/23/17 16:13:00 [employer], Stop date: 02/23/17 17:13:00 [employer] Inactive 02/23/2017 [facility] methylene blue (ANES) 10 mg Route: IV, Drug form: INJ, Start date: 02/23/17 14:42:00 [employer], Stop date: 02/23/17 15:42:00 [employer] Inactive 02/23/2017 [facility] protamine (ANES) 10 mg Route: IV, Drug form: INJ, Start date: 02/23/17 14:42:00 [employer], Stop date: 02/23/17 15:42:00 [employer] Inactive 02/23/2017 [facility] vasopressin (ANES) Route: IV, Drug form: INJ, ONCE, Stop date: 02/23/17 14:29:00 [employer] Inactive 02/23/2017 [facility] calcium gluconate (ANES) Route: IV, Drug form: INJ, ONCE, Stop date: 02/23/17 14:29:00 [employer] Inactive 02/23/2017 [facility] norepinephrine (ANES) 32 microgram Route: IV, Drug form: INJ, Start date: 02/23/17 14:25:00 [employer], Stop date: 02/23/17 15:25:00 [employer] Inactive 02/23/2017 [facility] EPINEPHrine (ANES) Route: IV, Drug form: INJ, ONCE, Stop date: 02/23/17 14:24:00 [employer] Inactive 02/23/2017 [facility] magnesium sulfate (ANES) Route: IV, Drug form: INJ, ONCE, Stop date: 02/23/17 13:54:00 [employer] Inactive 02/23/2017 [facility] Sodium Chloride 0.9% IV (ANES) 500 mL Route: IV, Total Volume: 500, Start date: 02/23/17 13:28:00 [employer], Stop date: 02/23/17 14:28:00 [employer] Inactive 02/23/2017 [facility] Sodium Chloride 0.9% IV (ANES) 246 mL + EPINEPHrine (ANES) 4000 microgram Route: IV, Drug form: INJ, Start date: 02/23/17 13:26:00 [employer], Stop date: 02/23/17 14:26:00 [employer] Inactive 02/23/2017 [facility] Insulin regular (ANES) Route: IV, Drug form: INJ, ONCE, Stop date: 02/23/17 12:04:00 [employer] Inactive 02/23/2017 [facility] niCARdipine (ANES) Route: IV, Drug form: INJ, ONCE, Stop date: 02/23/17 10:39:00 [employer] Inactive 02/23/2017 [facility] heparin (ANES) Route: IV, Drug form: INJ, ONCE, Stop date: 02/23/17 10:24:00 [employer] Inactive 02/23/2017 [facility] norepinephrine (ANES) Route: IV, Drug form: INJ, ONCE, Stop date: 02/23/17 9:34:00 [employer] Inactive 02/23/2017 [facility] rocuronium (ANES) Route: IV, Drug form: INJ, ONCE, Stop date: 02/23/17 9:09:00 [employer] Inactive 02/23/2017 [facility] propofol (ANES) Route: IV, Drug form: INJ, ONCE, Stop date: 02/23/17 9:09:00 [employer] Inactive 02/23/2017 [facility] lidocaine (ANES) Route: IV, Drug form: INJ, ONCE, Stop date: 02/23/17 9:09:00 [employer] Inactive 02/23/2017 [facility] ceFAZolin (ANES) Route: IV, Drug form: INJ, ONCE, Stop date: 02/23/17 8:58:00 [employer] Inactive 02/23/2017 [facility] metoprolol (ANES) Route: IV, Drug form: INJ, ONCE, Stop date: 02/23/17 8:53:00 [employer] Inactive 02/23/2017 [facility] fentaNYL (ANES) Route: IV, Drug form: INJ, ONCE, Stop date: 02/23/17 8:53:00 [employer] Inactive 02/23/2017 [facility] midazolam (ANES) Route: IV, Drug form: SOLN, ONCE, Stop date: 02/23/17 8:33:00 [employer] Inactive 02/23/2017 [facility] vancomycin (ANES) 1000 mg Route: IV, Drug form: INJ, Start date: 02/23/17 8:30:00 [employer], Stop date: 02/23/17 9:30:00 [employer] Inactive 02/23/2017 [facility] tranexamic acid (ANES) 100 mg Route: IV, Drug form: INJ, Start date: 02/23/17 8:30:00 [employer], Stop date: 02/23/17 9:30:00 [employer] Inactive 02/23/2017 [facility] Sodium Chloride 0.9% IV (ANES) 1000 mL Route: IV, Total Volume: 1,000, Start date: 02/23/17 8:26:00 [employer], Stop date: 02/23/17 9:26:00 [employer] Inactive 02/23/2017 [facility] Isolyte S PH 7.4 (ANES) 1000 mL Route: IV, Total Volume: 1,000, Start date: 02/23/17 8:00:00 [employer], Stop date: 02/23/17 9:00:00 [employer] Inactive 02/23/2017 [facility] Saline Flush 0.9% 5 ml, Route: MISC, Drug Form: INJ, Dosing Weight 100.909, kg, Q12H, Start date: 02/22/17 21:00:00 [employer], Duration: 30 day, Stop date: 03/24/17 9:00:00 CSTNotes: (Same as: BD Posiflush) No Longer Active 02/23/2017 [facility] Cefazolin 2 gm, Route: IVPB, ONCALL, Dosing Weight 100.909, kg, Start date: 02/22/17 19:00:00 [employer], Duration: 1 doses or times, ABX Indication: Surgical ProphylaxisNotes: (Same As: [place] Kefzol) MEDICAT ION WASTE Product Size: 1000 mg Product Wasted: ___ mg No Longer Active 02/23/2017 [facility] Mupirocin 0.02 MG/MG Topical Ointment 1 appl, Route: NASAL, ONCALL, Drug form: OINT/A, Start date: 02/22/17 19:00:00 [employer], Duration: 30 day, Stop date: 03/24/17 18:59:00 CSTNotes: 1/2 UD to each nostril. (Same As: Bactroban) No Longer Active 02/23/2017 [facility] Sodium Chloride 0.9% (titrate) 250 mL 250 mL, Rate: To prime line and flush remaining blood products., Dosing Weight 100.909, kg, Route: IV, Total Volume: 250, Start Date: 02/22/17 18:08:00 [employer], Duration: 30 day, Stop date: 03/24/17 18:07:00 [employer], Replace Every: 24 hr No Longer Active 02/23/2017 [facility] Saline Flush 0.9% 5 ml, Route: MISC, Drug Form: INJ, Dosing Weight 100.909, kg, PRN, PRN Line Flush, Start date: 02/22/17 18:08:00 [employer], Duration: 30 day, Stop date: 03/24/17 18:07:00 CSTNotes: (Same as: BD Posiflush) No Longer Active 02/23/2017 [facility] Metoprolol 2 mg, 2 mL, Route: IVP, Drug form: INJ, ONCE, Dosing Weight 100.909, kg, Start date: 02/22/17 18:08:00 [employer], Stop date: 02/22/17 18:08:00 CSTNotes: (Same as: Lopressor) Push over 2 minutes No Longer Active 02/23/2017 [facility] Codeine Phosphate 10 MG / Guaifenesin 300 MG Oral Tablet 10 mL, Route: PO, Drug Form: LIQ, Dosing Weight 100.909, kg, Q6H, PRN Cough/Congestion, Start date: 02/22/17 13:31:00 [employer], Duration: 30 day, Stop date: 03/24/17 13:30:00 CSTNotes: (Same As: Robitussin AC) No Longer Active 02/22/2017 [facility] Acetaminophen 325 MG / Hydrocodone Bitartrate 5 MG Oral Tablet [[place] 5/325] 1 tab, Route: PO, Drug Form: TAB, Dosing Weight 100.909, kg, Q6H, Start date: 02/21/17 18:00:00 [employer], Duration: 30 day, Stop date: 03/23/17 12:00:00 CSTNotes: (Same as: [place] 325/5) Do not exceed 4gm/day of acetaminophen. No Longer Active 02/22/2017 [facility] Acetaminophen 325 MG / Hydrocodone Bitartrate 5 MG Oral Tablet [[place] 5/325] 1 tab, Route: PO, Drug Form: TAB, Dosing Weight 100.909, kg, Q4H, PRN Pain Score 1-3, Start date: 02/21/17 13:33:00 [employer], Duration: 30 day, Stop date: 03/23/17 13:32:00 CSTNotes: (Same as: [place] 325/5) Do not exceed 4gm/day of acetaminophen. No Longer Active 02/21/2017 [facility] Diphenhydramine 25 mg, 0.5 mL, Route: IVP, Drug form: INJ, ONCE, Dosing Weight 100.909, kg, PRN Itching, Start date: 02/21/17 11:41:00 CSTNotes: (Same as: Benadryl) Inactive 02/21/2017 [facility] atorvastatin 80 mg, 1 tab, Route: PO, Drug form: TAB, Bedtime, Dosing Weight 100.909, kg, Start date: 02/20/17 21:00:00 [employer], Duration: 30 day, Stop date: 03/21/17 21:00:00 CSTNotes: Same as Lipitor No Longer Active 02/21/2017 [facility] Furosemide 40 MG Oral Tablet 40 mg, 4 mL, Route: IVP, Drug form: INJ, BID, Dosing Weight 100.909, kg, Start date: 02/20/17 17:00:00 [employer], Duration: 30 day, Stop date: 03/22/17 9:00:00 CSTNotes: (Same as: Lasix) MEDICATION WASTE Product Size: 40 mg Product Wasted: 0___ mg No Longer Active 02/20/2017 [facility] Furosemide 40 MG Oral Tablet 40 mg, 1 tab, Route: PO, Drug form: TAB, BID Diuretic, Dosing Weight 100.909, kg, Start date: 02/20/17 14:00:00 [employer], Duration: 30 day, Stop date: 03/22/17 6:00:00 CSTNotes: (Same as: Lasix) May cause GI upset. Give with food or milk. Inactive 02/20/2017 [facility] Pneumovax 23 0.5 mL, Route: IM, Drug Form: INJ, Daily, Start date: 02/20/17 12:30:00 [employer], Duration: 1 doses or times, Stop date: 02/20/17 12:30:00 CSTNotes: (Same as: Pneumovax 23) Refrigerate Inactive 02/20/2017 [facility] insulin glargine 18 unit, 0.18 mL, Route: SUB-Q, Drug form: SOLN, Daily, Start date: 02/20/17 9:00:00 [employer], Duration: 30 day, Stop date: 03/21/17 9:00:00 CSTNotes: (Same as: Lantus) Do not hold insulin without contact ing prescriber WASTE: F/P - Black; E - Municipal Trash Bin "single patient use only" Inactive 02/20/2017 [facility] Saline Flush 0.9% 10 ml, Route: IVP, Drug Form: INJ, Dosing Weight 100.909, kg, Q12H, Start date: 02/20/17 9:00:00 [employer], Duration: 30 day, Stop date: 03/21/17 21:00:00 CSTNotes: (Same as: BD Posiflush) No Longer Active 02/20/2017 [facility] influenza virus vaccine, inactivated 0.5 mL, Route: IM, Drug Form: SUSP, Daily, Start date: 02/20/17 9:00:00 [employer], Duration: 1 doses or times, Stop date: 02/20/17 9:00:00 CSTNotes: (Same as: Fluzone Quadrivalent, Fluarix Quadrivalent) For 3 years of age and older (0.5 mL IM) Shake well before use Inactive 02/20/2017 [facility] pneumococcal capsular polysaccharide type 1 vaccine / pneumococcal capsular polysaccharide type 10A vaccine / pneumococcal capsular polysaccharide type 11A vaccine / pneumococcal capsular polysaccharide type 12F vaccine / pneumococcal capsular polysacchar 0.5 mL, Route: IM, Drug Form: INJ, Daily, Start date: 02/20/17 9:00:00 [employer], Duration: 1 doses or times, Stop date: 02/20/17 9:00:00 CSTNotes: (Same as: Pneumovax 23) Refrigerate Inactive 02/20/2017 [facility] sacubitril 24 MG / valsartan 26 MG Oral Tablet [Entresto] 1 tab, Route: PO, Drug Form: TAB, Dosing Weight 100.909, kg, Q12H, Start date: 02/20/17 9:00:00 [employer], Duration: 30 day, Stop date: 03/21/17 21:00:00 CSTNotes: (Same as: Entresto) Avoid in patients with history of angioedema due to STEPHEN inhibitor or ARB therapy. Do not use concomitantly or within 36 hours of STEPHEN inhibitors No Longer Active 02/20/2017 [facility] metoprolol tartrate 25 mg, 1 tab, Route: PO, Drug form: TAB, Q12H, Dosing Weight 100.909, kg, Start date: 02/20/17 9:00:00 [employer], Duration: 30 day, Stop date: 03/21/17 21:00:00 CSTNotes: (Same as: Lopressor) No Longer Active 02/20/2017 [facility] Insulin Glargine 100 UNT/ML Injectable Solution 18 unit, 0.18 mL, Route: SUB-Q, Drug form: SOLN, Daily, Dosing Weight 100.909, kg, Start date: 02/20/17 9:00:00 [employer], Duration: 30 day, Stop date: 03/21/17 9:00:00 CSTNotes: (Same as: Lantus) Do not hold insulin without contacting prescriber WASTE: F/P - Black; E - Municipal Trash Bin "single patient use only" No Longer Active 02/20/2017 [facility] Aspirin 81 MG Enteric Coated Tablet 81 mg, 1 tab, Route: PO, Drug form: ECTAB, Daily, Dosing Weight 100.909, kg, Start date: 02/20/17 9:00:00 [employer], Duration: 30 day, Stop date: 03/21/17 9:00:00 CSTNotes: Do not crush or chew. (Same As: Ecotrin) No Longer Active 02/20/2017 [facility] Insulin Lispro 5 unit, 0.05 mL, Route: SUB-Q, Drug form: SOLN, TID-Before Meals, Dosing Weight 100.909, kg, Start date: 02/20/17 7:30:00 [employer], Duration: 30 day, Stop date: 03/21/17 16:30:00 CSTNotes: (Same as: Humalog ) Roll in palms of hands gently; Do not shake `vigorously. "Single Patient Use Only " WASTE: F/P - Black; E - Municipal Trash Bin Stable for 28 days at room temperature. Expires in days from Date No Longer Active 02/20/2017 [facility] heparin additive 25,000 unit [12 unit/kg/hr] + Premix Diluent Sodium Chloride 0.45% 500 mL 500 mL, Rate: 24.22 ml/hr, Infuse over: 20.6 hr, Route: IV, Dosing Weight 100.909 kg, Total Volume: 500 mL, Start date: 02/20/17 6:28:00 [employer], Stop date: 03/22/17 6:27:00 [employer], 2.33, [id number]: Total Concen tration=50 unit/ ml Total lefqeh=297 ml Send Med Request 2 hours prior to next bag No Longer Active 02/20/2017 [facility] Heparin 30 unit/kg Bolus (Heparin Dosing Weight) Route: IVP, PRN, 3,000 unit, 3 mL, Drug form: INJ, PRN, Heparin Protocol, Start date: 02/20/17 6:28:00 [employer] Stop date: 03/22/17 6:27:00 [employer] No Longer Active 02/20/2017 [facility] Heparin 60 unit/kg Bolus (Heparin Dosing Weight) Route: IVP, PRN, 6,100 unit, 6.1 mL, Drug form: INJ, PRN, Heparin Protocol, Start date: 02/20/17 6:28:00 [employer] Stop date: 03/22/17 6:27:00 [employer] No Longer Active 02/20/2017 [facility] Insulin Lispro 4 unit, 0.04 mL, Route: SUB-Q, Drug form: SOLN, TID-Before Meals, Dosing Weight 100.909, kg, PRN Blood Glucose Results, Start date: 02/20/17 6:25:00 [employer], Duration: 30 day, Stop date: 03/22/17 6:24:00 CSTNotes: (Same as: Humalog ) Roll in palms of hands gently; Do not shake `vigorously. "Single Patient Use Only " WASTE: F/P - Black; E - Municipal Trash Bin Stable for 28 days at room temperature. Expires in days from Date No Longer Active 02/20/2017 [facility] Dextrose 50% Syringe 12.5 gm, 25 mL, Route: IVP, Drug Form: INJ, Dosing Weight 100.909, kg, PRN, PRN Blood Glucose Results, Start date: 02/20/17 6:25:00 [employer], Duration: 30 day, Stop date: 03/22/17 6:24:00 [employer] No Longer Active 02/20/2017 [facility] Glucagon 1 mg, Route: IM, Drug form: PDR/INJ, PRN, Dosing Weight 100.909, kg, PRN Blood Glucose Results, Start date: 02/20/17 6:25:00 [employer], Duration: 30 day, Stop date: 03/22/17 6:24:00 [employer] No Longer Active 02/20/2017 [facility] Calcium Gluconate 3 gm, 30 mL, Route: IVPB, PRN, Dosing Weight 100.909, kg, PRN Abnormal Lab Result, For NON-ICU Patients Only., Start date: 02/20/17 6:19:00 [employer], Duration: 30 day, Stop date: 03/22/17 6:18:00 CSTNotes: WASTE: F/P - Sink; E - Municipal Trash Bin No Longer Active 02/20/2017 [facility] Magnesium Sulfate 1 gm, 100 mL, Route: IVPB, Drug form: INJ, PRN, Dosing Weight 100.909, kg, PRN Abnormal Lab Result, For NON-ICU Patients Only., Start date: 02/20/17 6:19:00 [employer], Duration: 30 day, Stop date: 03/22/17 6:18:00 CSTNotes: WASTE: F/P - Sink; E - Municipal Trash Bin No Longer Active 02/20/2017 [facility] Magnesium Oxide 800 mg, 2 tab, Route: PO, Drug form: TAB, PRN, Dosing Weight 100.909, kg, PRN Abnormal Lab Result, For NON-ICU Patients Only., Start date: 02/20/17 6:19:00 [employer], Duration: 30 day, Stop date: 03/22/17 6:18:00 CSTNotes: (Same as: Mag-Ox 400) Magnesium oxide [id number] elemental magnesium Dose=____mg magnesium oxide (___mg elemental magnesium) No Longer Active 02/20/2017 [facility] Potassium Chloride 20 mEq, 1 tab, Route: PO, Drug form: ERTAB, PRN, Dosing Weight 100.909, kg, PRN Abnormal Lab Result, For NON-ICU Patients Only, Start date: 02/20/17 6:19:00 [employer], Duration: 30 day, Stop date: 03/22/17 6:18:00 CSTNotes: (Same as: K-Dur 20) "Do Not Crush" With food and full glass of water No Longer Active 02/20/2017 [facility] sodium phosphate 30 mmol, 10 mL, Route: IVPB, PRN, Dosing Weight 100.909, kg, PRN Abnormal Lab Result, For NON-ICU Patients Only., Start date: 02/20/17 6:19:00 [employer], Duration: 30 day, Stop date: 03/22/17 6:18:00 [employer] No Longer Active 02/20/2017 [facility] potassium phosphate 30 mmol, 10 mL, Route: IVPB, PRN, Dosing Weight 100.909, kg, PRN Abnormal Lab Result, For NON-ICU Patients Only., Start date: 02/20/17 6:19:00 [employer], Duration: 30 day, Stop date: 03/22/17 6:18:00 CSTNo riley: (Same as: K Phosphate.) 1 mMol phoshate has 1.47 mEq potassium Infuse over 4 hours No Longer Active 02/20/2017 [facility] potassium phosphate-sodium phosphate 250 mg-280 mg-160 mg oral powder for reconstitution 2 pkt, Route: PO, Drug Form: PDR/REC, Dosing Weight 100.909, kg, PRN, PRN Abnormal Lab Result, For NON-ICU Patients Only, Start date: 02/20/17 6:19:00 [employer], Duration: 30 day, Stop date: 03/22/17 6:18:00 CSTNotes: (Same as: Phos-NaK) Each 1.5 gm pkt has 250mg phosphorous. Mix w/2.5oz water and stir. No Longer Active 02/20/2017 [facility] Saline Flush 0.9% 10 ml, Route: IVP, Drug Form: INJ, Dosing Weight 100.909, kg, PRN, PRN Line Flush, Start date: 02/20/17 6:19:00 [employer], Duration: 30 day, Stop date: 03/22/17 6:18:00 CSTNotes: (Same as: BD Posiflush) No Longer Active 02/20/2017 [facility] Ondansetron 4 mg, 2 mL, Route: IVP, Drug form: INJ, Q6H, Dosing Weight 100.909, kg, PRN Nausea, Start date: 02/20/17 6:13:00 [employer], Duration: 30 day, Stop date: 03/22/17 6:12:00 CSTNotes: (Same as: Zofran) MEDICATION WASTE Product Size: 4 mg Product Wasted: ___ mg No Longer Active 02/20/2017 [facility] Morphine 4 mg, 1 mL, Route: IV, Drug form: SOLN, Q4H, Dosing Weight 100.909, kg, PRN Pain Score 6-10, Start date: 02/20/17 6:13:00 [employer], Duration: 30 day, Stop date: 03/22/17 6:12:00 CSTNotes: (Same as:MORPhine Sulfate) No Longer Active 02/20/2017 [facility] Acetaminophen 325 MG / Hydrocodone Bitartrate 7.5 MG Oral Tablet [[place] 7.5/325] 1 tab, Route: PO, Drug Form: TAB, Dosing Weight 100.909, kg, Q4H, PRN Pain Score 4-6, Start date: 02/20/17 6:13:00 [employer], Duration: 30 day, Stop date: 03/22/17 6:12:00 CSTNotes: Same as [place] 325-7.5mg Do not exceed 4gm/day of acetaminophen. No Longer Active 02/20/2017 [facility] heparin 1000 units/mL injectable solution 2,900 unit=2.9 mL, IVP, PRN, PRN Heparin Protocol, 0 Refill(s) No Longer Active 02/20/2017 [place] Glucagon 1 mg, IM, PRN, PRN Blood Glucose Results, 0 Refill(s) No Longer Active 02/20/2017 [place] Furosemide 40 MG Oral Tablet 40 mg=1 tab, PO, BID Diuretic, 0 Refill(s) No Longer Active 02/20/2017 [place] sacubitril 24 MG / valsartan 26 MG Oral Tablet [Entresto] 1 tab, PO, Q12H, 0 Refill(s) No Longer Active 02/20/2017 [place] ondansetron 2 mg/mL injectable solution 4 mg=2 mL, IVP, Q6H, PRN Nausea, 0 Refill(s) No Longer Active 02/20/2017 [place] Morphine 4 mg=1 mL, IV, Q4H, PRN Pain Score 6-10, 0 Refill(s) No Longer Active 02/20/2017 [place] Alprazolam 0.25 MG Oral Tablet [Xanax] 0.25 mg=1 tab, PO, Q12H, PRN Anxiety, 0 Refill(s) No Longer Active 02/20/2017 [place] atorvastatin 40 mg oral tablet 40 mg=1 tab, PO, Bedtime, 0 Refill(s) No Longer Active 02/20/2017 [place] Aspirin 81 MG Enteric Coated Tablet 81 mg=1 tab, PO, Daily, 0 Refill(s) Active 02/20/2017 [place] metoprolol tartrate 25 mg oral tablet 12.5 mg=0.5 tab, PO, Q12H, 0 Refill(s) No Longer Active 02/20/2017 [place] insulin lispro 100 units/mL subcutaneous injection 10 unit, SUB-Q, TID-Before Meals, PRN Blood Glucose Results, 0 Refill(s) No Longer Active 02/20/2017 [place] Acetaminophen 325 MG / Hydrocodone Bitartrate 7.5 MG Oral Tablet [[place] 7.5/325] 1 tab, PO, Q4H, PRN Pain Score 4-6, 0 Refill(s) No Longer Active 02/20/2017 [place] Insulin Glargine 100 UNT/ML Injectable Solution 18 unit, SUB-Q, Daily, 0 Refill(s) No Longer Active 02/20/2017 [place] aspirin 81 mg tablet, enteric coated 81 mg=1 tab, PO, Daily, 0 Refill(s) On Hold 02/20/2017 [place] Acetaminophen 325 MG / Hydrocodone Bitartrate 7.5 MG Oral Tablet [[place] 7.5/325] 1 tab, Route: PO, Drug Form: TAB, Dosing Weight 102.5, kg, Q4H, PRN Pain Score 4-6, Start date: 02/19/17 18:07:00 [employer], Duration: 30 day, Stop date: 03/21/17 18:06:00 CSTNotes: Same as [place] 325-7.5mg Do not exceed 4gm/day of acetaminophen. No Longer Active 02/20/2017 [place] Potassium Chloride 40 mEq, 2 tab, Route: PO, Drug form: ERTAB, ONCE, Dosing Weight 102.5, kg, Start date: 02/19/17 16:25:00 [employer], Stop date: 02/19/17 16:25:00 CSTNotes: (Same as: K-Dur 20) "Do Not Crush" With food and full glass of water Inactive 02/19/2017 [place] insulin glargine 8 unit, 0.08 mL, Route: SUB-Q, Drug form: SOLN, ONCE, Priority: STAT, Start date: 02/19/17 10:15:00 [employer], Stop date: 02/19/17 10:15:00 CSTNotes: (Same as: Lantus) Do not hold insulin without contacting prescriber WASTE: F/P - Black; E - Municipal Trash Bin "single patient use only" Inactive 02/19/2017 [place] Magnesium Sulfate 2 gm, 50 mL, Route: IVPB, Drug form: INJ, ONCE, Dosing Weight 110.909, kg, Start date: 02/19/17 7:09:00 [employer], Stop date: 02/19/17 7:09:00 CSTNotes: WASTE: F/P - Sink; E - Municipal Trash Bin Inactive 02/19/2017 [place] Morphine 4 mg, 1 mL, Route: IV, Drug form: SOLN, Q4H, Dosing Weight 110.909, kg, PRN Pain Score 6-10, Start date: 02/18/17 13:42:00 [employer], Duration: 30 day, Stop date: 03/20/17 13:41:00 CSTNotes: (Same as:MORPhine Sulfate) No Longer Active 02/18/2017 [place] Levemir 10 unit, Route: SUB-Q, Daily, Dosing Weight 110.909, kg, Start date: 02/18/17 10:30:00 [employer], Duration: 30 day, Stop date: 03/20/17 9:00:00 [employer] Inactive 02/18/2017 [facility] insulin glargine 10 unit, 0.1 mL, Route: SUB-Q, Drug form: SOLN, Daily, Start date: 02/18/17 10:21:00 [employer], Duration: 30 day, Stop date: 03/20/17 9:00:00 CSTNotes: (Same as: Lantus) Do not hold insulin without contact ing prescriber WASTE: F/P - Black; E - [employer] Trash Bin "single patient use only" No Longer Active 02/18/2017 [facility] sacubitril 24 MG / valsartan 26 MG Oral Tablet [Entresto] 1 tab, Route: PO, Drug Form: TAB, Dosing Weight 110.909, kg, Q12H, Start date: 02/18/17 9:15:00 [employer], Duration: 30 day, Stop date: 03/20/17 9:00:00 CSTNotes: (Same as: Entresto) Avoid in patients with history of angioedema due to STEPHEN inhibitor or ARB therapy. Do not use concomitantly or within 36 hours of STEPHEN inhibitors No Longer Active 02/18/2017 [place] Potassium Chloride 1.33 MEQ/ML Oral Solution 40 mEq, 30 mL, Route: PO, Drug form: LIQ, ONCE, Dosing Weight 110.909, kg, Start date: 02/18/17 9:03:00 [employer], Stop date: 02/18/17 9:03:00 CSTNotes: (Same as: Potassium Chloride) Inactive 02/18/2017 [place] Alprazolam 0.25 MG Oral Tablet [Xanax] 0.25 mg, 1 tab, Route: PO, Drug form: TAB, Q12H, Dosing Weight 110.909, kg, PRN Anxiety, Start date: 02/17/17 17:24:00 [employer], Duration: 30 day, Stop date: 03/19/17 17:23:00 CSTNotes: With food or milk (Same as: Xanax) No Longer Active 02/17/2017 [facility] Lasix 40 mg, 1 tab, Route: PO, Drug form: TAB, BID Diuretic, Dosing Weight 110.909, kg, Start date: 02/16/17 20:00:00 [employer], Duration: 30 day, Stop date: 03/18/17 16:00:00 CSTNotes: (Same as: Lasix) May cause GI upset. Give with food or milk. No Longer Active 02/17/2017 [place] Heparin 30 unit/kg Bolus (Heparin Dosing Weight) Route: IVP, PRN, 2,900 unit, 2.9 mL, Drug form: INJ, PRN, Heparin Protocol, Start date: 02/16/17 19:13:00 [employer] Stop date: 03/18/17 19:12:00 [employer], 30 day No Longer Active 02/17/2017 [place] Heparin 60 unit/kg Bolus (Heparin Dosing Weight) Route: IVP, PRN, 5,800 unit, 5.8 mL, Drug form: INJ, PRN, Heparin Protocol, Start date: 02/16/17 19:13:00 [employer] Stop date: 03/18/17 19:12:00 [employer], 30 day No Longer Active 02/17/2017 [place] Heparin - one time bolus for ACS 4,000 unit, 4 mL, Route: IVP, Drug form: INJ, ONCE, Dosing Weight 110.909, kg, Priority: STAT, Start date: 02/16/17 19:13:00 [employer], Stop date: 02/16/17 19:13:00 [employer] Inactive 02/17/2017 [place] heparin additive 25,000 unit [10.371 unit/kg/hr] + Premix Diluent Dextrose 5% 500 mL 500 mL, Rate: 20 ml/hr, Infuse over: 25 hr, Route: IV, Dosing Weight 96.44 kg, Total Volume: 500 mL, Start date: 02/16/17 19:13:00 [employer], Duration: 30 day, Stop date: 03/18/17 19:12:00 [employer], 2.28, m2 No Longer Active 02/17/2017 [facility] Ondansetron 4 mg, 2 mL, Route: IVP, Drug form: INJ, Q6H, Dosing Weight 110.909, kg, PRN Nausea, Start date: 02/16/17 14:20:00 [employer], Duration: 30 day, Stop date: 03/18/17 14:19:00 CSTNotes: (Same as: Zofran) MEDICATION WASTE Product Size: 4 mg Product Wasted: ___ mg No Longer Active 02/16/2017 [facility] Azithromycin 500 mg, Route: IVPB, [id number], Dosing Weight 97.727, kg, Start date: 02/16/17 13:00:00 [employer], Duration: 5 day, Stop date: 02/20/17 13:00:00 [employer], ABX Indication: PneumoniaNotes: (Same As: Zithromax IV) No Longer Active 02/16/2017 [facility] Rocephin 1 gm, Route: IVPB, [id number], Dosing Weight 97.727, kg, Start date: 02/16/17 13:00:00 [employer], Duration: 5 day, Stop date: 02/20/17 13:00:00 [employer], ABX Indication: PneumoniaNotes: (Same As: Rocephin). Use with 100 mL NS and infuse over 30 min MEDICATION WASTE Product Size: 1000 mg Product Wasted: ___ mg No Longer Active 02/16/2017 [facility] Aspirin 81 mg, 1 tab, Route: PO, Drug form: ECTAB, Daily, Dosing Weight 97.727, kg, Start date: 02/16/17 9:00:00 [employer], Duration: 30 day, Stop date: 03/17/17 9:00:00 CSTNotes: Do not crush or chew. (Same As: Ecotrin) No Longer Active 02/16/2017 [facility] metoprolol tartrate 12.5 mg, 0.5 tab, Route: PO, Drug form: TAB, Q12H, Dosing Weight 97.727, kg, Start date: 02/15/17 21:00:00 [employer], Duration: 30 day, Stop date: 03/17/17 9:00:00 CSTNotes: (Same as: Lopressor) No Longer Active 02/16/2017 [place] Lipitor 40 mg, 1 tab, Route: PO, Drug form: TAB, Bedtime, Dosing Weight 97.727, kg, Start date: 02/15/17 21:00:00 [employer], Duration: 30 day, Stop date: 03/16/17 21:00:00 CSTNotes: (Same as: Lipitor) No Longer Active 02/16/2017 [facility] Morphine 4 mg, 1 mL, Route: IV, Drug form: SOLN, Q6H, Dosing Weight 97.727, kg, PRN Pain Score 6-10, Start date: 02/15/17 18:36:00 [employer], Duration: 30 day, Stop date: 03/17/17 18:35:00 CSTNotes: (Same as:MORPhine Sulfate) No Longer Active 02/16/2017 [place] Sodium Chloride 0.9% (Bolus) IV 250 mL, 250 ml/hr, Infuse Over: 1 hr, Route: IV, 250, Drug form: INJ, ONCALL, Priority: Routine, Dosing Weight 97.727 kg, Start date: 02/15/17 18:00:00 [employer], Duration: 1 doses or times No Longer Active 02/16/2017 [place] Sodium Chloride 0.9% IV 750 mL 750 mL, Rate: 75 ml/hr, Infuse over: 10 hr, Route: IV, Dosing Weight 97.727 kg, Total Volume: 750, Start date: 02/15/17 17:59:00 [employer], Duration: 24 hr, Stop date: 02/16/17 17:58:00 [employer], 2.29, m2 No Longer Active 02/15/2017 [place] Insulin Lispro 8 unit, 0.08 mL, Route: SUB-Q, Drug form: SOLN, TID-Before Meals, Dosing Weight 97.727, kg, PRN Blood Glucose Results, Start date: 02/15/17 14:49:00 [employer], Duration: 30 day, Stop date: 03/17/17 14:48:0 0 CSTNotes: Roll in palms of hands gently; Do not shake `vigorously. (Same as: Humalog ) "Single Patient Use Only " WASTE: F/P - Black; E - Municipal Trash Bin Stable for 28 days at room temperature. Expires in days from Date No Longer Active 02/15/2017 [facility] Glucagon 1 mg, Route: IM, Drug form: PDR/INJ, PRN, Dosing Weight 97.727, kg, PRN Blood Glucose Results, Start date: 02/15/17 14:49:00 [employer], Duration: 30 day, Stop date: 03/17/17 14:48:00 [employer] No Longer Active 02/15/2017 [facility] Dextrose 50% Syringe 25 gm, 50 mL, Route: IVP, Drug Form: INJ, Dosing Weight 97.727, kg, PRN, PRN Blood Glucose Results, Start date: 02/15/17 14:49:00 [employer], Duration: 30 day, Stop date: 03/17/17 14:48:00 [employer] No Longer Active 02/15/2017 [facility] Ceftriaxone 1 gm, Route: IVPB, ONCE, Dosing Weight 97.727, kg, Priority: STAT, Start date: 02/15/17 11:43:00 [employer], Stop date: 02/15/17 11:43:00 [employer], ABX Indication: PneumoniaNotes: (Same As: Rocephin). Use with 100 mL NS and infuse over 30 min MEDICATION WASTE Product Size: 1000 mg Product Wasted: ___ mg Inactive 02/15/2017 [facility] Azithromycin 500 mg, Route: IVPB, Drug form: PDR/INJ, ONCE, Dosing Weight 97.727, kg, Priority: STAT, Start date: 02/15/17 11:43:00 [employer], Stop date: 02/15/17 11:43:00 [employer], ABX Indication: PneumoniaNotes: (Same As: Zithromax IV) Inactive 02/15/2017 [facility] Ondansetron 4 mg, Route: IVP, Drug form: INJ, ONCE, Dosing Weight 97.727, kg, Priority: STAT, Start date: 02/15/17 10:58:00 [employer], Stop date: 02/15/17 10:58:00 [employer] Inactive 02/15/2017 [facility] Morphine 4 mg, Route: IVP, ONCE, Dosing Weight 97.727, kg, Priority: STAT, Start date: 02/15/17 10:58:00 [employer], Stop date: 02/15/17 10:58:00 [employer] Inactive 02/15/2017 [facility] Aspirin 325 mg, Route: PO, Drug form: TAB, ONCE, Dosing Weight 97.727, kg, Priority: STAT, Start date: 02/15/17 9:50:00 [employer], Stop date: 02/15/17 9:50:00 [employer] Inactive 02/15/2017 [facility] Allergies, Adverse Reactions, Alerts Substance Category Reaction Severity Reaction type Status Date Reported Comments Source Levaquin Assertion Drug allergy Active [facility] Immunizations Immunization Date Given Site Status Last Updated Comments Source pneumococcal 23-valent vaccine 02/20/2017 Right deltoid completed Susan [facility] [place] influenza virus vaccine, inactivated 02/20/2017 Left deltoid completed Susan [facility] [place],[facility] Results Order Name Results Value Reference Range Date Interpretation Comments Source CHEM PANEL Magnesium Lvl 1.4 1.8 - 2.4 10/17/2017 [facility] CHEM PANEL eGFR 57 10/17/2017 Result Comment: [...] should be multiplied by the estimated BMI. [facility] CHEM PANEL Globulin 3.6 2.7 - 4.2 10/17/2017 [place] CHEM PANEL A/G Ratio 0.9 0.7 - 1.6 10/17/2017 [place] CHEM PANEL ALT 36 0 - 65 10/17/2017 [place] CHEM PANEL B/C Ratio 19 6 - 25 10/17/2017 [place] CHEM PANEL Albumin Lvl 3.3 3.5 - 5.0 10/17/2017 [place] CHEM PANEL Total Protein 6.9 6.4 - 8.4 10/17/2017 [place] CHEM PANEL Alk Phos 60 39 - 136 10/17/2017 [place] CHEM PANEL AST 30 0 - 37 10/17/2017 [place] CHEM PANEL Bili Total 1.5 0.2 - 1.3 10/17/2017 [place] CHEM PANEL Chloride Lvl 102 95 - 109 10/17/2017 [place] CHEM PANEL Glucose Lvl 249 70 - 99 10/17/2017 [place] CHEM PANEL CO2 25 24 - 32 10/17/2017 [place] CHEM PANEL AGAP 12.7 10.0 - 20.0 10/17/2017 [place] CHEM PANEL Calcium Lvl 8.7 8.5 - 10.5 10/17/2017 [place] CHEM PANEL Potassium Lvl 3.7 3.5 - 5.1 10/17/2017 [place] CHEM PANEL BUN 25 7 - 22 10/17/2017 [place] CHEM PANEL Sodium Lvl 136 135 - 145 10/17/2017 [place] CHEM PANEL Creatinine Lvl 1.32 0.50 - 1.40 10/17/2017 [place] CHEM PANEL Phosphorus 1.9 2.5 - 4.5 10/17/2017 [facility] HEMATOLOGY MPV 8.5 7.4 - 10.4 10/17/2017 [facility] HEMATOLOGY Platelet 180 133 - 450 10/17/2017 [facility] HEMATOLOGY RDW 14.0 11.5 - 14.5 10/17/2017 [facility] HEMATOLOGY MCHC 34.7 32.0 - 36.0 10/17/2017 [facility] HEMATOLOGY MCH 37.9 27.0 - 31.0 10/17/2017 [facility] HEMATOLOGY Hgb 13.8 14.0 - 18.0 10/17/2017 [place] HEMATOLOGY RBC 3.64 4.70 - 6.10 10/17/2017 [place] HEMATOLOGY WBC 8.1 3.7 - 10.4 10/17/2017 [place] HEMATOLOGY MCV 109.2 80.0 - 94.0 10/17/2017 [place] HEMATOLOGY Hct 39.7 42.0 - 54.0 10/17/2017 [place] HEMATOLOGY Lymphocytes # 2.1 1.0 - 5.5 10/17/2017 [place] HEMATOLOGY Eosinophils # 0.2 0.0 - 0.5 10/17/2017 [place] HEMATOLOGY Monocytes # 1.0 0.0 - 0.8 10/17/2017 [place] HEMATOLOGY Monocytes 12.7 2.0 - 12.0 10/17/2017 [place] HEMATOLOGY Lymphocytes 25.7 20.0 - 40.0 10/17/2017 [place] HEMATOLOGY Eosinophils 2.5 0.0 - 4.0 10/17/2017 [place] HEMATOLOGY Basophils # 0.1 0.0 - 0.2 10/17/2017 [place] HEMATOLOGY Neutrophils # 4.7 1.5 - 8.1 10/17/2017 [place] HEMATOLOGY Basophils 1.1 0.0 - 1.0 10/17/2017 [place] HEMATOLOGY Segs 58.0 45.0 - 75.0 10/17/2017 [facility] DRUG SCREEN U Amph Scr Positive *ABN* (10/16/17 10:41 AM) Negative 10/16/2017 [facility] DRUG SCREEN U Usha Scr Negative *NA* (10/16/17 10:41 AM) Negative 10/16/2017 [facility] DRUG SCREEN U Cannab Scr Negative *NA* (10/16/17 10:41 AM) Negative 10/16/2017 [facility] DRUG SCREEN U Benzodiaz Scr Negative *NA* (10/16/17 10:41 AM) Negative 10/16/2017 [facility] DRUG SCREEN U Cocaine Scr Negative *NA* (10/16/17 10:41 AM) Negative 10/16/2017 [facility] DRUG SCREEN UDS Note See Note (10/16/17 10:41 AM) 10/16/2017 [facility] DRUG SCREEN U Opiate Scr Positive *ABN* (10/16/17 10:41 AM) Negative 10/16/2017 [facility] DRUG SCREEN U Phencyclidine Scr Negative *NA* (10/16/17 10:41 AM) Negative 10/16/2017 [place] URINE AND STOOL UA WBC <1 0 - 5 10/16/2017 [place] URINE AND STOOL UA RBC <1 0 - 2 10/16/2017 [place] URINE AND STOOL UA Leuk Est Negative (10/16/17 10:41 AM) Negative 10/16/2017 [place] URINE AND STOOL UA Blood Negative (10/16/17 10:41 AM) Negative 10/16/2017 [place] URINE AND STOOL UA Nitrite Negative (10/16/17 10:41 AM) Negative 10/16/2017 [place] URINE AND STOOL UA Ketones 40 mg/dL Negative mg/dL 10/16/2017 [place] URINE AND STOOL UA Bili Negative *NA* (10/16/17 10:41 AM) Negative 10/16/2017 [place] URINE AND STOOL UA Glucose 30 mg/dL Negative mg/dL 10/16/2017 [place] URINE AND STOOL UA Urobilinogen <=1.0 mg/dL 0.1 - 1.0 10/16/2017 [place] URINE AND STOOL UA Sq Epi None Seen 10/16/2017 [place] URINE AND STOOL UA Mucus Few /LPF None Seen /LPF 10/16/2017 [place] URINE AND STOOL UA pH 5.5 5.0 - 8.0 10/16/2017 [place] URINE AND STOOL UA Spec Grav 1.036 <=1.030 10/16/2017 [place] URINE AND STOOL UA Protein 10 mg/dL Negative mg/dL 10/16/2017 [place] URINE AND STOOL UA Color Yellow *NA* (10/16/17 10:41 AM) Yellow 10/16/2017 [place] URINE AND STOOL UA Turbidity Clear (10/16/17 10:41 AM) Clear 10/16/2017 [facility] CARDIAC ENZYMES Troponin-I <0.02 0.00 - 0.40 10/16/2017 [facility] ANEMIA STUDY Folate Lvl 9.8 >=3.0 ng/mL 10/16/2017 [facility] ANEMIA STUDY Vitamin B12 Lvl 236 254 - 1320 10/16/2017 [facility] CARDIAC ENZYMES Troponin-I <0.02 0.00 - 0.40 10/16/2017 [place] CHEM PANEL Magnesium Lvl 1.4 1.8 - 2.4 10/16/2017 [facility] CHEM PANEL Phosphorus 3.4 2.5 - 4.5 10/16/2017 [facility] LIPIDS LDL (Calculated) 113 <=99 mg/dL 10/16/2017 [place] LIPIDS VLDL 33 10/16/2017 [place] LIPIDS Trig 164 <=149 mg/dL 10/16/2017 [place] LIPIDS Chol 204 <=199 mg/dL 10/16/2017 [place] LIPIDS HDL 58 >=61 mg/dL 10/16/2017 [place] LIPIDS CHD Risk 3.52 4.00 - 7.30 10/16/2017 [place] SPECIAL CHEMISTRY Hgb A1C 7.8 <=5.6 % 10/16/2017 [place] CARDIAC ENZYMES Troponin-I <0.02 0.00 - 0.40 10/16/2017 [facility] CARDIAC ENZYMES Total CK 45 12 - 191 10/16/2017 [place] CHEM PANEL B/C Ratio 16 6 - 25 10/16/2017 [place] CHEM PANEL AGAP 16.1 10.0 - 20.0 10/16/2017 [place] CHEM PANEL A/G Ratio 1.0 0.7 - 1.6 10/16/2017 [place] CHEM PANEL Globulin 3.7 2.7 - 4.2 10/16/2017 [place] CHEM PANEL Bili Total 0.8 0.2 - 1.3 10/16/2017 [place] CHEM PANEL eGFR 49 10/16/2017 Result Comment: [...] should be multiplied by the estimated BMI. [place] CHEM PANEL Alk Phos 59 39 - 136 10/16/2017 [place] CHEM PANEL AST 55 0 - 37 10/16/2017 [place] CHEM PANEL ALT 50 0 - 65 10/16/2017 [place] CHEM PANEL Calcium Lvl 8.8 8.5 - 10.5 10/16/2017 [place] CHEM PANEL CO2 23 24 - 32 10/16/2017 [place] CHEM PANEL Chloride Lvl 104 95 - 109 10/16/2017 [place] CHEM PANEL Potassium Lvl 4.1 3.5 - 5.1 10/16/2017 [place] CHEM PANEL Albumin Lvl 3.8 3.5 - 5.0 10/16/2017 [place] CHEM PANEL Total Protein 7.5 6.4 - 8.4 10/16/2017 [place] CHEM PANEL Glucose Lvl 108 70 - 99 10/16/2017 [place] CHEM PANEL Creatinine Lvl 1.48 0.50 - 1.40 10/16/2017 [place] CHEM PANEL BUN 23 7 - 22 10/16/2017 [place] CHEM PANEL Sodium Lvl 139 135 - 145 10/16/2017 [place] HEMATOLOGY MPV 8.2 7.4 - 10.4 10/16/2017 [facility] HEMATOLOGY Hgb 14.4 14.0 - 18.0 10/16/2017 [facility] HEMATOLOGY WBC 8.3 3.7 - 10.4 10/16/2017 [facility] HEMATOLOGY RBC 3.82 4.70 - 6.10 10/16/2017 [facility] HEMATOLOGY Hct 42.2 42.0 - 54.0 10/16/2017 [facility] HEMATOLOGY MCV 110.4 80.0 - 94.0 10/16/2017 [facility] HEMATOLOGY RDW 14.1 11.5 - 14.5 10/16/2017 [facility] HEMATOLOGY Platelet 201 133 - 450 10/16/2017 [facility] HEMATOLOGY MCH 37.8 27.0 - 31.0 10/16/2017 [facility] HEMATOLOGY MCHC 34.2 32.0 - 36.0 10/16/2017 [facility] HEMATOLOGY PT 13.7 12.0 - 14.7 10/16/2017 [facility] HEMATOLOGY INR 1.05 0.85 - 1.17 10/16/2017 [facility] HEMATOLOGY PTT 30.3 22.9 - 35.8 10/16/2017 [facility] HEMATOLOGY Eosinophils # 0.2 0.0 - 0.5 10/16/2017 [facility] HEMATOLOGY Basophils # 0.1 0.0 - 0.2 10/16/2017 [facility] HEMATOLOGY Macrocyte 3+ *NA* (10/16/17 1:00 AM) None Seen 10/16/2017 [facility] HEMATOLOGY Monocytes # 0.9 0.0 - 0.8 10/16/2017 [facility] HEMATOLOGY Segs 52.5 45.0 - 75.0 10/16/2017 [facility] HEMATOLOGY Lymphocytes 33.7 20.0 - 40.0 10/16/2017 [facility] HEMATOLOGY Monocytes 10.3 2.0 - 12.0 10/16/2017 [facility] HEMATOLOGY Lymphocytes # 2.8 1.0 - 5.5 10/16/2017 [place] HEMATOLOGY Eosinophils 2.2 0.0 - 4.0 10/16/2017 [facility] HEMATOLOGY Basophils 1.3 0.0 - 1.0 10/16/2017 [facility] HEMATOLOGY Neutrophils # 4.3 1.5 - 8.1 10/16/2017 [facility] CHEM PANEL eGFR 48 10/16/2017 Result Comment: [...] should be multiplied by the estimated BMI. [place] CHEM PANEL POC Hemoglobin 15.6 14.0 - 18.0 10/16/2017 [place] CHEM PANEL POC Glucose 113 70 - 99 10/16/2017 [place] CHEM PANEL POC Ion Ca 1.00 1.05 - 1.25 10/16/2017 [place] CHEM PANEL POC BUN 24 7 - 22 10/16/2017 [place] CHEM PANEL POC Creatinine 1.5 0.5 - 1.4 10/16/2017 [place] CHEM PANEL POC Potassium 4.3 3.5 - 5.1 10/16/2017 [place] CHEM PANEL POC Chloride 102 95 - 109 10/16/2017 [place] CHEM PANEL POC Sodium 139 135 - 145 10/16/2017 [place] CHEM PANEL POC Carbon Dioxide 21 24 - 32 10/16/2017 [place] CHEM PANEL POC AGAP 20.0 10.0 - 20.0 10/16/2017 [place] CHEM PANEL POC Hematocrit 46.0 42.0 - 54.0 10/16/2017 [facility] CARDIAC ENZYMES BNP 976 <=100 pg/mL 06/03/2017 [facility] ELECTROLYTES AGAP 12.0 10.0 - 20.0 06/03/2017 [place] ELECTROLYTES eGFR 46 06/03/2017 Result Comment: The [...] should be multiplied by the estimated BMI. [place] ELECTROLYTES CO2 29 24 - 32 06/03/2017 [place] ELECTROLYTES Calcium Lvl 9.7 8.5 - 10.5 06/03/2017 [place] ELECTROLYTES Potassium Lvl 5.0 3.5 - 5.1 06/03/2017 [place] ELECTROLYTES Sodium Lvl 139 135 - 145 06/03/2017 [place] ELECTROLYTES BUN 32 7 - 22 06/03/2017 [place] ELECTROLYTES Creatinine Lvl 1.57 0.50 - 1.40 06/03/2017 [place] ELECTROLYTES Chloride Lvl 103 95 - 109 06/03/2017 [place] ELECTROLYTES Glucose Lvl 159 70 - 99 06/03/2017 [place] HEMATOLOGY Eosinophils # 0.3 0.0 - 0.5 06/03/2017 [place] HEMATOLOGY Basophils # 0.2 0.0 - 0.2 06/03/2017 [facility] HEMATOLOGY Lymphocytes # 2.4 1.0 - 5.5 06/03/2017 [place] HEMATOLOGY Monocytes # 0.9 0.0 - 0.8 06/03/2017 [place] HEMATOLOGY Basophils 2.5 0.0 - 1.0 06/03/2017 [place] HEMATOLOGY Segs-Bands # 2.4 1.5 - 8.1 06/03/2017 [place] HEMATOLOGY Segs 38.6 45.0 - 75.0 06/03/2017 [facility] HEMATOLOGY Monocytes 14.3 2.0 - 12.0 06/03/2017 [place] HEMATOLOGY Lymphocytes 39.3 20.0 - 40.0 06/03/2017 [place] HEMATOLOGY Eosinophils 5.3 0.0 - 4.0 06/03/2017 [place] HEMATOLOGY MCHC 34.1 32.0 - 36.0 06/03/2017 [place] HEMATOLOGY RDW 16.4 11.5 - 14.5 06/03/2017 [facility] HEMATOLOGY MPV 9.0 7.4 - 10.4 06/03/2017 [facility] HEMATOLOGY MCH 35.2 27.0 - 31.0 06/03/2017 [facility] HEMATOLOGY Platelet 173 133 - 450 06/03/2017 [place] HEMATOLOGY WBC 6.2 3.7 - 10.4 06/03/2017 [facility] HEMATOLOGY MCV 103.3 80.0 - 94.0 06/03/2017 [facility] HEMATOLOGY Hct 45.8 42.0 - 54.0 06/03/2017 [facility] HEMATOLOGY Hgb 15.6 14.0 - 18.0 06/03/2017 [facility] HEMATOLOGY RBC 4.43 4.70 - 6.10 06/03/2017 [place] CARDIAC ENZYMES BNP 1307 <=100 pg/mL 04/05/2017 [place] CHEM PANEL A/G Ratio 0.9 0.7 - 1.6 04/05/2017 [facility] CHEM PANEL AGAP 11.6 10.0 - 20.0 04/05/2017 [facility] CHEM PANEL B/C Ratio 11 6 - 25 04/05/2017 [facility] CHEM PANEL Globulin 4.3 2.7 - 4.2 04/05/2017 [facility] CHEM PANEL eGFR 57 04/05/2017 Result Comment: [...] should be multiplied by the estimated BMI. [place] CHEM PANEL Creatinine Lvl 1.32 0.50 - 1.40 04/05/2017 [place] CHEM PANEL BUN 14 7 - 22 04/05/2017 [place] CHEM PANEL Glucose Lvl 178 70 - 99 04/05/2017 [place] CHEM PANEL Total Protein 8.1 6.4 - 8.4 04/05/2017 [place] CHEM PANEL AST 20 0 - 37 04/05/2017 [place] CHEM PANEL Albumin Lvl 3.8 3.5 - 5.0 04/05/2017 [place] CHEM PANEL Alk Phos 104 39 - 136 04/05/2017 [place] CHEM PANEL ALT 17 0 - 65 04/05/2017 [place] CHEM PANEL Calcium Lvl 9.6 8.5 - 10.5 04/05/2017 [place] CHEM PANEL CO2 28 24 - 32 04/05/2017 [place] CHEM PANEL Potassium Lvl 4.6 3.5 - 5.1 04/05/2017 [place] CHEM PANEL Sodium Lvl 137 135 - 145 04/05/2017 [place] CHEM PANEL Chloride Lvl 102 95 - 109 04/05/2017 [place] CHEM PANEL Bili Total 0.9 0.2 - 1.3 04/05/2017 [place] HEMATOLOGY Platelet 204 133 - 450 04/05/2017 [place] HEMATOLOGY RDW 21.4 11.5 - 14.5 04/05/2017 [place] HEMATOLOGY MCHC 33.9 32.0 - 36.0 04/05/2017 [facility] HEMATOLOGY MCH 34.4 27.0 - 31.0 04/05/2017 [facility] HEMATOLOGY MCV 101.6 80.0 - 94.0 04/05/2017 [facility] HEMATOLOGY Hct 41.0 42.0 - 54.0 04/05/2017 [facility] HEMATOLOGY WBC 8.0 3.7 - 10.4 04/05/2017 [facility] HEMATOLOGY RBC 4.04 4.70 - 6.10 04/05/2017 [facility] HEMATOLOGY Hgb 13.9 14.0 - 18.0 04/05/2017 [facility] HEMATOLOGY MPV 8.1 7.4 - 10.4 04/05/2017 [place] HEMATOLOGY Segs-Bands # 4.2 1.5 - 8.1 04/05/2017 [place] HEMATOLOGY Eosinophils 7.3 0.0 - 4.0 04/05/2017 [place] HEMATOLOGY Basophils 1.0 0.0 - 1.0 04/05/2017 [facility] HEMATOLOGY Monocytes 16.1 2.0 - 12.0 04/05/2017 [facility] HEMATOLOGY Lymphocytes 22.9 20.0 - 40.0 04/05/2017 [place] HEMATOLOGY Segs 52.7 45.0 - 75.0 04/05/2017 [facility] HEMATOLOGY Basophils # 0.1 0.0 - 0.2 04/05/2017 [facility] HEMATOLOGY Lymphocytes # 1.8 1.0 - 5.5 04/05/2017 [facility] HEMATOLOGY Monocytes # 1.3 0.0 - 0.8 04/05/2017 [facility] HEMATOLOGY Eosinophils # 0.6 0.0 - 0.5 04/05/2017 [facility] CHEM PANEL eGFR 63 03/07/2017 Result Comment: [...] should be multiplied by the estimated BMI. [facility] CHEM PANEL Bili Total 1.1 0.2 - 1.3 03/07/2017 [facility] CHEM PANEL Alk Phos 79 39 - 136 03/07/2017 [facility] CHEM PANEL AST 30 0 - 37 03/07/2017 [facility] CHEM PANEL Albumin Lvl 2.0 3.5 - 5.0 03/07/2017 [facility] CHEM PANEL Total Protein 6.1 6.4 - 8.4 03/07/2017 [place] [facility] CHEM PANEL Calcium Lvl 8.6 8.5 - 10.5 03/07/2017 [facility] CHEM PANEL CO2 27 24 - 32 03/07/2017 [facility] CHEM PANEL ALT 27 0 - 65 03/07/2017 [facility] CHEM PANEL BUN 13 7 - 22 03/07/2017 [facility] CHEM PANEL Potassium Lvl 4.0 3.5 - 5.1 03/07/2017 [facility] CHEM PANEL Sodium Lvl 134 135 - 145 03/07/2017 [facility] CHEM PANEL Chloride Lvl 100 95 - 109 03/07/2017 [facility] CHEM PANEL Glucose Lvl 193 70 - 99 03/07/2017 [facility] CHEM PANEL Creatinine Lvl 1.21 0.50 - 1.40 03/07/2017 [facility] CHEM PANEL A/G Ratio 0.5 0.7 - 1.6 03/07/2017 [facility] CHEM PANEL Globulin 4.1 2.7 - 4.2 03/07/2017 [facility] CHEM PANEL AGAP 11.0 10.0 - 20.0 03/07/2017 [facility] CHEM PANEL B/C Ratio 11 6 - 25 03/07/2017 [facility] HEMATOLOGY Platelet 376 133 - 450 03/07/2017 [facility] HEMATOLOGY RDW 22.2 11.5 - 14.5 03/07/2017 [facility] HEMATOLOGY MPV 9.1 7.4 - 10.4 03/07/2017 [facility] HEMATOLOGY RBC 3.44 4.70 - 6.10 03/07/2017 [facility] HEMATOLOGY Hgb 10.8 14.0 - 18.0 03/07/2017 [facility] HEMATOLOGY WBC 11.3 3.7 - 10.4 03/07/2017 [facility] HEMATOLOGY MCHC 33.5 32.0 - 36.0 03/07/2017 [facility] HEMATOLOGY Hct 32.3 42.0 - 54.0 03/07/2017 [facility] HEMATOLOGY MCH 31.4 27.0 - 31.0 03/07/2017 [facility] HEMATOLOGY MCV 93.7 80.0 - 94.0 03/07/2017 [facility] HEMATOLOGY Polychrom Moderate *ABN* (03/07/17 8:45 AM) None Seen 03/07/2017 [facility] HEMATOLOGY Anisocyte 1+ *ABN* (03/07/17 8:45 AM) None Seen 03/07/2017 [facility] HEMATOLOGY Eosinophils 5.4 0.0 - 4.0 03/07/2017 [facility] HEMATOLOGY Segs-Bands # 6.8 1.5 - 8.1 03/07/2017 [facility] HEMATOLOGY Basophils 0.9 0.0 - 1.0 03/07/2017 [facility] HEMATOLOGY Lymphocytes # 1.9 1.0 - 5.5 03/07/2017 [facility] HEMATOLOGY Monocytes # 1.9 0.0 - 0.8 03/07/2017 [facility] HEMATOLOGY Basophils # 0.1 0.0 - 0.2 03/07/2017 [facility] HEMATOLOGY Eosinophils # 0.6 0.0 - 0.5 03/07/2017 [facility] HEMATOLOGY Plt Morph Normal (03/07/17 8:45 AM) 03/07/2017 [facility] HEMATOLOGY Lymphocytes 16.5 20.0 - 40.0 03/07/2017 [facility] HEMATOLOGY Segs 60.4 45.0 - 75.0 03/07/2017 [facility] HEMATOLOGY Monocytes 16.8 2.0 - 12.0 03/07/2017 [facility] CHEM PANEL Alk Phos 69 39 - 136 03/05/2017 [facility] CHEM PANEL Bili Total 1.0 0.2 - 1.3 03/05/2017 [facility] CHEM PANEL Globulin 3.8 2.7 - 4.2 03/05/2017 [facility] CHEM PANEL Total Protein 6.0 6.4 - 8.4 03/05/2017 [facility] CHEM PANEL AST 28 0 - 37 03/05/2017 [facility] CHEM PANEL A/G Ratio 0.6 0.7 - 1.6 03/05/2017 [facility] CHEM PANEL Albumin Lvl 2.2 3.5 - 5.0 03/05/2017 [facility] CHEM PANEL ALT 30 0 - 65 03/05/2017 [facility] CHEM PANEL eGFR 54 03/05/2017 Result Comment: [...] should be multiplied by the estimated BMI. [facility] CHEM PANEL Creatinine Lvl 1.37 0.50 - 1.40 03/05/2017 [facility] CHEM PANEL Chloride Lvl 99 95 - 109 03/05/2017 [facility] CHEM PANEL Potassium Lvl 4.0 3.5 - 5.1 03/05/2017 [facility] CHEM PANEL Sodium Lvl 132 135 - 145 03/05/2017 [facility] CHEM PANEL B/C Ratio 12 6 - 25 03/05/2017 [facility] CHEM PANEL AGAP 9.0 10.0 - 20.0 03/05/2017 [facility] CHEM PANEL Calcium Lvl 8.2 8.5 - 10.5 03/05/2017 [facility] CHEM PANEL CO2 28 24 - 32 03/05/2017 [facility] CHEM PANEL BUN 16 7 - 22 03/05/2017 [facility] CHEM PANEL Glucose Lvl 223 70 - 99 03/05/2017 [facility] HEMATOLOGY Monocytes # 1.4 0.0 - 0.8 03/05/2017 [facility] HEMATOLOGY Anisocyte 1+ *ABN* (03/05/17 2:37 PM) None Seen 03/05/2017 [facility] HEMATOLOGY Basophils # 0.1 0.0 - 0.2 03/05/2017 [facility] HEMATOLOGY Eosinophils # 0.5 0.0 - 0.5 03/05/2017 [facility] HEMATOLOGY Basophils 0.7 0.0 - 1.0 03/05/2017 [facility] HEMATOLOGY Eosinophils 4.8 0.0 - 4.0 03/05/2017 [facility] HEMATOLOGY Monocytes 12.3 2.0 - 12.0 03/05/2017 [facility] HEMATOLOGY Lymphocytes 18.3 20.0 - 40.0 03/05/2017 [facility] HEMATOLOGY Segs 63.9 45.0 - 75.0 03/05/2017 [facility] HEMATOLOGY Lymphocytes # 2.0 1.0 - 5.5 03/05/2017 [facility] HEMATOLOGY Segs-Bands # 7.1 1.5 - 8.1 03/05/2017 [facility] HEMATOLOGY MPV 9.4 7.4 - 10.4 03/05/2017 [facility] HEMATOLOGY Platelet 326 133 - 450 03/05/2017 [facility] HEMATOLOGY MCHC 33.3 32.0 - 36.0 03/05/2017 [facility] HEMATOLOGY RDW 21.7 11.5 - 14.5 03/05/2017 [facility] HEMATOLOGY MCH 31.0 27.0 - 31.0 03/05/2017 [facility] HEMATOLOGY WBC 11.1 3.7 - 10.4 03/05/2017 [facility] HEMATOLOGY RBC 3.43 4.70 - 6.10 03/05/2017 [facility] HEMATOLOGY Hgb 10.6 14.0 - 18.0 03/05/2017 [facility] HEMATOLOGY Hct 31.9 42.0 - 54.0 03/05/2017 [facility] HEMATOLOGY MCV 93.1 80.0 - 94.0 03/05/2017 [facility] ELECTROLYTES Potassium Lvl 4.5 3.5 - 5.1 03/05/2017 [facility] CHEM PANEL eGFR 62 03/04/2017 Result Comment: [...] should be multiplied by the estimated BMI. [facility] CHEM PANEL Creatinine Lvl 1.23 0.50 - 1.40 03/04/2017 [facility] CHEM PANEL Glucose Lvl 252 70 - 99 03/04/2017 [facility] CHEM PANEL Sodium Lvl 136 135 - 145 03/04/2017 [facility] CHEM PANEL BUN 21 7 - 22 03/04/2017 [facility] CHEM PANEL CO2 30 24 - 32 03/04/2017 [facility] CHEM PANEL Calcium Lvl 8.3 8.5 - 10.5 03/04/2017 [facility] CHEM PANEL Chloride Lvl 101 95 - 109 03/04/2017 [facility] CHEM PANEL AST 29 0 - 37 03/04/2017 [facility] CHEM PANEL Albumin Lvl 2.1 3.5 - 5.0 03/04/2017 [facility] CHEM PANEL Alk Phos 60 39 - 136 03/04/2017 [facility] CHEM PANEL Bili Total 1.3 0.2 - 1.3 03/04/2017 [facility] CHEM PANEL Total Protein 5.8 6.4 - 8.4 03/04/2017 [facility] CHEM PANEL ALT 32 0 - 65 03/04/2017 [facility] CHEM PANEL B/C Ratio 17 6 - 25 03/04/2017 [facility] CHEM PANEL AGAP 8.9 10.0 - 20.0 03/04/2017 [facility] CHEM PANEL Globulin 3.7 2.7 - 4.2 03/04/2017 [facility] CHEM PANEL A/G Ratio 0.6 0.7 - 1.6 03/04/2017 [facility] HEMATOLOGY Lymphocytes 15.8 20.0 - 40.0 03/04/2017 [facility] HEMATOLOGY Segs 62.5 45.0 - 75.0 03/04/2017 [facility] HEMATOLOGY Basophils 0.3 0.0 - 1.0 03/04/2017 [facility] HEMATOLOGY Eosinophils 6.2 0.0 - 4.0 03/04/2017 [facility] HEMATOLOGY Monocytes 15.2 2.0 - 12.0 03/04/2017 [facility] HEMATOLOGY Monocytes # 1.7 0.0 - 0.8 03/04/2017 [facility] HEMATOLOGY Segs-Bands # 6.9 1.5 - 8.1 03/04/2017 [facility] HEMATOLOGY Lymphocytes # 1.8 1.0 - 5.5 03/04/2017 [facility] HEMATOLOGY Eosinophils # 0.7 0.0 - 0.5 03/04/2017 [facility] HEMATOLOGY Anisocyte 1+ *ABN* (03/04/17 10:15 AM) None Seen 03/04/2017 [facility] HEMATOLOGY MPV 9.2 7.4 - 10.4 03/04/2017 [facility] HEMATOLOGY Hgb 10.4 14.0 - 18.0 03/04/2017 [facility] HEMATOLOGY RBC 3.37 4.70 - 6.10 03/04/2017 [facility] HEMATOLOGY WBC 11.1 3.7 - 10.4 03/04/2017 [facility] HEMATOLOGY Platelet 278 133 - 450 03/04/2017 [facility] HEMATOLOGY RDW 21.3 11.5 - 14.5 03/04/2017 [facility] HEMATOLOGY MCHC 33.1 32.0 - 36.0 03/04/2017 [facility] HEMATOLOGY MCH 30.8 27.0 - 31.0 03/04/2017 [facility] HEMATOLOGY MCV 93.1 80.0 - 94.0 03/04/2017 [facility] HEMATOLOGY Hct 31.4 42.0 - 54.0 03/04/2017 [facility] SPECIAL CHEMISTRY Hgb A1C 6.9 <=5.6 % 03/04/2017 [facility] URINE AND STOOL UA Glucose 500mg/dL 03/04/2017 [facility] URINE AND STOOL UA Sq Epi None Seen 03/04/2017 [facility] URINE AND STOOL UA WBC <1 0 - 5 03/04/2017 [facility] URINE AND STOOL UA Blood Negative (03/04/17 2:52 AM) Negative 03/04/2017 [facility] URINE AND STOOL UA Urobilinogen 2.0 0.1 - 1.0 03/04/2017 [facility] URINE AND STOOL UA Nitrite Negative (03/04/17 2:52 AM) Negative 03/04/2017 [facility] URINE AND STOOL UA Leuk Est Negative (03/04/17 2:52 AM) Negative 03/04/2017 [facility] URINE AND STOOL UA Spec Grav 1.009 <=1.030 03/04/2017 [facility] URINE AND STOOL UA pH 7.0 5.0 - 8.0 03/04/2017 [facility] URINE AND STOOL UA Bili Negative *NA* (03/04/17 2:52 AM) Negative 03/04/2017 [facility] URINE AND STOOL UA Protein Negative mg/dL Negative mg/dL 03/04/2017 [facility] URINE AND STOOL UA Ketones Negative mg/dL Negative mg/dL 03/04/2017 [facility] URINE AND STOOL UA Color Yellow *NA* (03/04/17 2:52 AM) Yellow 03/04/2017 [facility] URINE AND STOOL UA Turbidity Clear (03/04/17 2:52 AM) Clear 03/04/2017 [facility] HEMATOLOGY Polychrom Slight 03/03/2017 [facility] HEMATOLOGY Large Plt Moderate *ABN* (03/03/17 9:17 AM) None Seen 03/03/2017 [facility] HEMATOLOGY Macrocyte 1+ *ABN* (03/03/17 9:17 AM) None Seen 03/03/2017 [facility] HEMATOLOGY Basophils # 0.1 0.0 - 0.2 03/03/2017 [facility] SPECIAL CHEMISTRY Hgb A1C 7.2 <=5.6 % 03/03/2017 [facility] ANEMIA STUDY Folate Lvl 11.0 >=3.0 ng/mL 03/02/2017 [facility] ANEMIA STUDY Vitamin B12 Lvl 464 254 - 1320 03/02/2017 [facility] ANEMIA STUDY UIBC 146 110 - 370 03/02/2017 [facility] ANEMIA STUDY TIBC 187 228 - 428 03/02/2017 [facility] ANEMIA STUDY Iron 41 45 - 160 03/02/2017 [facility] ANEMIA STUDY % [place] 22 12 - 57 03/02/2017 [facility] ANEMIA STUDY Ferritin Lvl 613 22 - 275 03/02/2017 [facility] ANEMIA STUDY RBC Folate 893 280 - 791 03/02/2017 [facility] CHEM PANEL Magnesium Lvl 1.8 1.8 - 2.4 03/02/2017 [facility] CHEM PANEL Phosphorus 2.1 2.5 - 4.5 03/02/2017 [facility] HEMATOLOGY Bands 0.0 0.0 - 11.0 03/02/2017 [facility] HEMATOLOGY Polychrom Slight 03/02/2017 [facility] HEMATOLOGY NRBC 1 03/02/2017 [facility] HEMATOLOGY Plt Morph Normal (03/02/17 6:19 AM) 03/02/2017 [facility] HEMATOLOGY Myelocytes 2.0 <=0.0 % 03/02/2017 [facility] HEMATOLOGY Atypical Lymphs 0.0 <=0.0 % 03/02/2017 [facility] BLOOD BANK RESULTS Antibody Scrn Negative (03/01/17 3:59 AM) 03/01/2017 [facility] BLOOD BANK RESULTS ABO/Rh B POS 03/01/2017 [facility] CHEM PANEL Magnesium Lvl 1.9 1.8 - 2.4 03/01/2017 [facility] CHEM PANEL Phosphorus 2.6 2.5 - 4.5 03/01/2017 [facility] HEMATOLOGY PT 17.2 12.0 - 14.7 03/01/2017 [facility] HEMATOLOGY INR 1.40 0.85 - 1.17 03/01/2017 [facility] HEMATOLOGY PTT 34.6 22.9 - 35.8 03/01/2017 [facility] PARATHYROID PROFILE Ca Norm WB 1.19 1.05 - 1.25 03/01/2017 [facility] PARATHYROID PROFILE Ca Ion WB 1.20 1.05 - 1.25 03/01/2017 [facility] CHEM PANEL Procalcitonin Lvl 0.24 0.00 - 0.10 02/28/2017 [facility] CHEM PANEL Bili Direct 0.6 0.0 - 0.3 02/28/2017 [facility] CHEM PANEL Phosphorus 2.4 2.5 - 4.5 02/28/2017 [facility] CHEM PANEL Magnesium Lvl 2.0 1.8 - 2.4 02/28/2017 [facility] CHEM PANEL Lactic Acid Lvl 2.2 0.5 - 2.2 02/28/2017 [facility] HEMATOLOGY PT 17.1 12.0 - 14.7 02/28/2017 [facility] HEMATOLOGY D-Dimer 2.42 02/28/2017 [facility] HEMATOLOGY INR 1.39 0.85 - 1.17 02/28/2017 [facility] HEMATOLOGY Thrombin Time 20.7 15.0 - 21.2 02/28/2017 [facility] HEMATOLOGY PTT 33.6 22.9 - 35.8 02/28/2017 [facility] HEMATOLOGY Fibrinogen Lvl 372 230 - 510 02/28/2017 [facility] PARATHYROID PROFILE Ca Norm WB 1.25 1.05 - 1.25 02/28/2017 [facility] PARATHYROID PROFILE Ca Ion WB 1.22 1.05 - 1.25 02/28/2017 [facility] CHEM PANEL Bili Direct 0.2 0.0 - 0.3 02/27/2017 [facility] CHEM PANEL Plasma Hemoglobin <10 0 - 10 02/27/2017 [facility] CHEM PANEL LDH 392 98 - 192 02/27/2017 [facility] CHEM PANEL Lactic Acid Lvl 1.1 0.5 - 2.2 02/27/2017 [facility] HEMATOLOGY Plt Morph Normal (02/27/17 3:24 AM) 02/27/2017 [facility] HEMATOLOGY Thrombin Time 17.1 15.0 - 21.2 02/27/2017 [facility] HEMATOLOGY PTT 30.8 22.9 - 35.8 02/27/2017 [facility] HEMATOLOGY Fibrinogen Lvl 376 230 - 510 02/27/2017 [facility] HEMATOLOGY D-Dimer 2.28 02/27/2017 [facility] HEMATOLOGY INR 1.36 0.85 - 1.17 02/27/2017 [facility] HEMATOLOGY PT 16.8 12.0 - 14.7 02/27/2017 [facility] PARATHYROID PROFILE Ca Norm WB 1.21 1.05 - 1.25 02/27/2017 [facility] PARATHYROID PROFILE Ca Ion WB 1.23 1.05 - 1.25 02/27/2017 [facility] CHEM PANEL Bili Direct 0.2 0.0 - 0.3 02/26/2017 [facility] CHEM PANEL Plasma Hemoglobin <10 0 - 10 02/26/2017 [facility] CHEM PANEL LDH 333 98 - 192 02/26/2017 [facility] CHEM PANEL Lactic Acid Lvl 1.0 0.5 - 2.2 02/26/2017 [facility] HEMATOLOGY Bands 2.0 0.0 - 11.0 02/26/2017 [facility] HEMATOLOGY Atypical Lymphs 0.0 <=0.0 % 02/26/2017 [facility] HEMATOLOGY D-Dimer 1.29 02/26/2017 [facility] HEMATOLOGY Thrombin Time 17.4 15.0 - 21.2 02/26/2017 [facility] HEMATOLOGY Fibrinogen Lvl 420 230 - 510 02/26/2017 [facility] BLOOD BANK RESULTS Antibody Scrn Negative (02/25/17 2:53 AM) 02/25/2017 [facility] BLOOD BANK RESULTS ABO/Rh B POS 02/25/2017 [facility] CHEM PANEL Bili Indirect 0.6 0.0 - 1.0 02/25/2017 [facility] BLOOD BANK RESULTS RBC product Product available (02/25/17 12:20 AM) 02/25/2017 [facility] BLOOD BANK RESULTS Platelet product Product available (02/25/17 12:20 AM) 02/25/2017 [facility] BLOOD BANK RESULTS FFP product Modification Required (02/25/17 12:20 AM) 02/25/2017 [facility] URINE AND STOOL UA Leuk Est Negative (02/24/17 5:16 PM) Negative 02/24/2017 [facility] URINE AND STOOL UA WBC 2 0 - 5 02/24/2017 [facility] URINE AND STOOL UA RBC 3 0 - 2 02/24/2017 [facility] URINE AND STOOL UA Mucus Few /LPF None Seen /LPF 02/24/2017 [facility] URINE AND STOOL UA Sq Epi None Seen 02/24/2017 [facility] URINE AND STOOL UA Urobilinogen <=1.0 mg/dL 0.1 - 1.0 02/24/2017 [facility] URINE AND STOOL UA Ketones TR 02/24/2017 [facility] URINE AND STOOL UA Nitrite Negative (02/24/17 5:16 PM) Negative 02/24/2017 [facility] URINE AND STOOL UA Glucose 50 mg/dL Negative mg/dL 02/24/2017 [facility] URINE AND STOOL UA Bili Negative *NA* (02/24/17 5:16 PM) Negative 02/24/2017 [facility] URINE AND STOOL UA Blood Negative (02/24/17 5:16 PM) Negative 02/24/2017 [facility] URINE AND STOOL UA Protein 50 mg/dL Negative mg/dL 02/24/2017 [facility] URINE AND STOOL UA Turbidity Clear (02/24/17 5:16 PM) Clear 02/24/2017 [facility] URINE AND STOOL UA Spec Grav 1.017 <=1.030 02/24/2017 [facility] URINE AND STOOL UA Color Yellow *NA* (02/24/17 5:16 PM) Yellow 02/24/2017 [facility] URINE AND STOOL UA pH 8.5 5.0 - 8.0 02/24/2017 [facility] BLOOD BANK RESULTS RBC product Product available (02/24/17 3:46 PM) 02/24/2017 [facility] CHEM PANEL Bili Indirect 0.7 0.0 - 1.0 02/24/2017 [facility] MOLECULAR DIAGNOSTIC Parainfluenza 2 PCR Negative (02/23/17 9:22 PM) Negative 02/24/2017 [facility] MOLECULAR DIAGNOSTIC Parainfluenza 1 PCR Negative (02/23/17 9:22 PM) Negative 02/24/2017 [facility] MOLECULAR DIAGNOSTIC Parainfluenza 3 PCR Negative (02/23/17 9:22 PM) Negative 02/24/2017 [facility] MOLECULAR DIAGNOSTIC Source Parainfluenza Virus PCR [employer] Swab (02/23/17 9:22 PM) 02/24/2017 [facility] MOLECULAR DIAGNOSTIC Adenovirus PCR Negative (02/23/17 9:22 PM) Negative 02/24/2017 [facility] MOLECULAR DIAGNOSTIC Source Adenovirus PCR [employer] Swab (02/23/17 9:22 PM) 02/24/2017 [facility] MOLECULAR DIAGNOSTIC RSV PCR Negative (02/23/17 9:22 PM) Negative 02/24/2017 [facility] MOLECULAR DIAGNOSTIC Influenza B PCR Negative (02/23/17 9:22 PM) Negative 02/24/2017 [facility] MOLECULAR DIAGNOSTIC Source Respiratory Panel PCR [employer] Swab (02/23/17 9:22 PM) 02/24/2017 [facility] MOLECULAR DIAGNOSTIC Influenza A PCR Negative (02/23/17 9:22 PM) Negative 02/24/2017 [facility] BLOOD BANK RESULTS FFP product Product available (02/23/17 7:32 PM) 02/24/2017 [facility] BLOOD BANK RESULTS Platelet product Product available (02/23/17 7:32 PM) 02/24/2017 [facility] BLOOD BANK RESULTS FFP product Product available (02/23/17 7:32 PM) 02/24/2017 [facility] BLOOD BANK RESULTS Platelet product Product available (02/23/17 7:32 PM) 02/24/2017 [facility] BLOOD BANK RESULTS RBC product Product available (02/23/17 7:32 PM) 02/24/2017 [facility] HEMATOLOGY LY30 Hep 0.0 0.0 - 7.5 02/23/2017 [facility] HEMATOLOGY TEG Data See Note (02/23/17 3:15 PM) 02/23/2017 [facility] HEMATOLOGY Coag Index Hep 0.9 -3.0-3.0 - 3.0 02/23/2017 [facility] HEMATOLOGY R-Time Hep 5.7 5.0 - 10.0 02/23/2017 [facility] HEMATOLOGY G-Value Hep 8.9 4.5 - 11.0 02/23/2017 [facility] HEMATOLOGY Max Amp Hep 64.1 50.0 - 70.0 02/23/2017 [facility] HEMATOLOGY Angle Hep 67.5 53.0 - 72.0 02/23/2017 [facility] HEMATOLOGY K-Time Hep 1.6 1.0 - 3.0 02/23/2017 [facility] HEMATOLOGY Macrocyte 1+ *ABN* (02/23/17 3:50 AM) None Seen 02/23/2017 [facility] HEMATOLOGY Plav Effect Plt 160 02/23/2017 [facility] BACTERIAL - SEROLOGY MRSA by PCR Negative (02/22/17 8:26 PM) 02/23/2017 [facility] BLOOD BANK RESULTS Antibody Scrn Negative (02/22/17 8:17 PM) 02/23/2017 [facility] BLOOD BANK RESULTS ABO/Rh B POS 02/23/2017 [facility] HEMATOLOGY Macrocyte 2+ *ABN* (02/22/17 5:21 AM) None Seen 02/22/2017 [facility] CARDIAC ENZYMES BNP 490 <=100 pg/mL 02/20/2017 [facility] HEMATOLOGY Smudge Slight 02/20/2017 [facility] HEMATOLOGY Bands 0.0 0.0 - 11.0 02/20/2017 [facility] HEMATOLOGY Atypical Lymphs 0.0 <=0.0 % 02/20/2017 [facility] HEMATOLOGY Tot Cell Ct 100 02/20/2017 [facility] HEMATOLOGY PTT 55.7 22.9 - 35.8 02/19/2017 [facility] HEMATOLOGY PTT 61.5 22.9 - 35.8 02/19/2017 [facility] HEMATOLOGY INR 1.27 0.85 - 1.17 02/19/2017 [facility] HEMATOLOGY PT 16.0 12.0 - 14.7 02/19/2017 [facility] ELECTROLYTES AGAP 9.5 10.0 - 20.0 02/19/2017 [facility] ELECTROLYTES CO2 32 24 - 32 02/19/2017 [facility] ELECTROLYTES Chloride Lvl 93 95 - 109 02/19/2017 [facility] ELECTROLYTES Calcium Lvl 8.8 8.5 - 10.5 02/19/2017 [facility] ELECTROLYTES eGFR 78 02/19/2017 Result Comment: The [...] should be multiplied by the estimated BMI. [facility] ELECTROLYTES Potassium Lvl 3.5 3.5 - 5.1 02/19/2017 [facility] ELECTROLYTES Sodium Lvl 131 135 - 145 02/19/2017 [facility] ELECTROLYTES Creatinine Lvl 1.02 0.50 - 1.40 02/19/2017 [facility] ELECTROLYTES BUN 22 7 - 22 02/19/2017 [facility] ELECTROLYTES Glucose Lvl 281 70 - 99 02/19/2017 [facility] HEMATOLOGY MPV 9.4 7.4 - 10.4 02/19/2017 [facility] HEMATOLOGY RBC 4.16 4.70 - 6.10 02/19/2017 [facility] HEMATOLOGY WBC 7.6 3.7 - 10.4 02/19/2017 [facility] HEMATOLOGY Platelet 167 133 - 450 02/19/2017 [facility] HEMATOLOGY RDW 13.0 11.5 - 14.5 02/19/2017 [facility] HEMATOLOGY MCH 36.6 27.0 - 31.0 02/19/2017 [facility] HEMATOLOGY MCHC 35.0 32.0 - 36.0 02/19/2017 [facility] HEMATOLOGY MCV 104.5 80.0 - 94.0 02/19/2017 [facility] HEMATOLOGY Hct 43.5 42.0 - 54.0 02/19/2017 [facility] HEMATOLOGY Hgb 15.2 14.0 - 18.0 02/19/2017 [facility] CHEM PANEL Magnesium Lvl 1.5 1.8 - 2.4 02/19/2017 [facility] HEMATOLOGY PT 15.4 12.0 - 14.7 02/19/2017 [facility] HEMATOLOGY INR 1.21 0.85 - 1.17 02/19/2017 [facility] HEMATOLOGY PTT 46.1 22.9 - 35.8 02/19/2017 [facility] CARDIAC ENZYMES BNP 648 <=100 pg/mL 02/18/2017 [facility] CHEM PANEL eGFR 76 02/18/2017 Result Comment: [...] should be multiplied by the estimated BMI. [facility] CHEM PANEL Bili Total 1.2 0.2 - 1.3 02/18/2017 [facility] CHEM PANEL Total Protein 6.7 6.4 - 8.4 02/18/2017 [facility] CHEM PANEL Albumin Lvl 2.9 3.5 - 5.0 02/18/2017 [facility] CHEM PANEL Potassium Lvl 3.7 3.5 - 5.1 02/18/2017 [facility] CHEM PANEL Chloride Lvl 94 95 - 109 02/18/2017 [facility] CHEM PANEL Calcium Lvl 9.4 8.5 - 10.5 02/18/2017 [facility] CHEM PANEL Sodium Lvl 133 135 - 145 02/18/2017 [facility] CHEM PANEL CO2 30 24 - 32 02/18/2017 [facility] CHEM PANEL Creatinine Lvl 1.04 0.50 - 1.40 02/18/2017 [facility] CHEM PANEL Glucose Lvl 196 70 - 99 02/18/2017 [facility] CHEM PANEL BUN 26 7 - 22 02/18/2017 [facility] CHEM PANEL AST 44 0 - 37 02/18/2017 [facility] CHEM PANEL ALT 66 0 - 65 02/18/2017 [facility] CHEM PANEL Alk Phos 53 39 - 136 02/18/2017 [facility] CHEM PANEL B/C Ratio 25 6 - 25 02/18/2017 [facility] CHEM PANEL Globulin 3.8 2.7 - 4.2 02/18/2017 [facility] CHEM PANEL AGAP 12.7 10.0 - 20.0 02/18/2017 [facility] CHEM PANEL A/G Ratio 0.8 0.7 - 1.6 02/18/2017 [facility] HEMATOLOGY Platelet 154 133 - 450 02/18/2017 [facility] HEMATOLOGY MPV 9.2 7.4 - 10.4 02/18/2017 [facility] HEMATOLOGY Hgb 16.3 14.0 - 18.0 02/18/2017 [facility] HEMATOLOGY MCHC 34.8 32.0 - 36.0 02/18/2017 [facility] HEMATOLOGY RDW 13.2 11.5 - 14.5 02/18/2017 [facility] HEMATOLOGY MCV 105.9 80.0 - 94.0 02/18/2017 [facility] HEMATOLOGY MCH 36.9 27.0 - 31.0 02/18/2017 [facility] HEMATOLOGY Hct 46.9 42.0 - 54.0 02/18/2017 [facility] HEMATOLOGY RBC 4.43 4.70 - 6.10 02/18/2017 [facility] HEMATOLOGY WBC 9.6 3.7 - 10.4 02/18/2017 [facility] HEMATOLOGY Lymphocytes # 3.4 1.0 - 5.5 02/18/2017 [facility] HEMATOLOGY Monocytes # 1.6 0.0 - 0.8 02/18/2017 [facility] HEMATOLOGY Basophils # 0.1 0.0 - 0.2 02/18/2017 [facility] HEMATOLOGY Eosinophils # 0.2 0.0 - 0.5 02/18/2017 [facility] HEMATOLOGY Segs 45.0 45.0 - 75.0 02/18/2017 [facility] HEMATOLOGY Segs-Bands # 4.3 1.5 - 8.1 02/18/2017 [facility] HEMATOLOGY Macrocyte 1+ *ABN* (02/18/17 7:25 AM) None Seen 02/18/2017 [facility] HEMATOLOGY Monocytes 17.0 2.0 - 12.0 02/18/2017 [facility] HEMATOLOGY Basophils 0.7 0.0 - 1.0 02/18/2017 [facility] HEMATOLOGY Lymphocytes 35.1 20.0 - 40.0 02/18/2017 [facility] HEMATOLOGY Eosinophils 2.2 0.0 - 4.0 02/18/2017 [facility] HEMATOLOGY MPV 9.2 7.4 - 10.4 02/17/2017 [facility] HEMATOLOGY RDW 13.5 11.5 - 14.5 02/17/2017 [facility] HEMATOLOGY Platelet 181 133 - 450 02/17/2017 [facility] HEMATOLOGY MCH 36.3 27.0 - 31.0 02/17/2017 [facility] HEMATOLOGY MCHC 34.2 32.0 - 36.0 02/17/2017 [facility] HEMATOLOGY WBC 8.0 3.7 - 10.4 02/17/2017 [facility] HEMATOLOGY Hgb 16.4 14.0 - 18.0 02/17/2017 [facility] HEMATOLOGY Hct 47.9 42.0 - 54.0 02/17/2017 [facility] HEMATOLOGY MCV 106.3 80.0 - 94.0 02/17/2017 [facility] HEMATOLOGY RBC 4.50 4.70 - 6.10 02/17/2017 [facility] HEMATOLOGY Lymphocytes 30.1 20.0 - 40.0 02/17/2017 [facility] HEMATOLOGY Segs 53.0 45.0 - 75.0 02/17/2017 [facility] HEMATOLOGY Plt Morph Normal (02/17/17 5:44 AM) 02/17/2017 [facility] HEMATOLOGY RBC Morph Normal (02/17/17 5:44 AM) 02/17/2017 [facility] HEMATOLOGY Basophils # 0.1 0.0 - 0.2 02/17/2017 [facility] HEMATOLOGY Monocytes # 1.1 0.0 - 0.8 02/17/2017 [facility] HEMATOLOGY Lymphocytes # 2.4 1.0 - 5.5 02/17/2017 [facility] HEMATOLOGY Eosinophils # 0.2 0.0 - 0.5 02/17/2017 [facility] HEMATOLOGY Segs-Bands # 4.2 1.5 - 8.1 02/17/2017 [facility] HEMATOLOGY Basophils 1.0 0.0 - 1.0 02/17/2017 [facility] HEMATOLOGY Eosinophils 2.1 0.0 - 4.0 02/17/2017 [facility] HEMATOLOGY Monocytes 13.8 2.0 - 12.0 02/17/2017 [facility] HEMATOLOGY Monocytes 12.5 2.0 - 12.0 02/17/2017 [facility] HEMATOLOGY Lymphocytes 18.7 20.0 - 40.0 02/17/2017 [facility] HEMATOLOGY Segs 66.7 45.0 - 75.0 02/17/2017 [facility] HEMATOLOGY Segs-Bands # 5.2 1.5 - 8.1 02/17/2017 [facility] HEMATOLOGY Lymphocytes # 1.5 1.0 - 5.5 02/17/2017 [facility] HEMATOLOGY Eosinophils 1.4 0.0 - 4.0 02/17/2017 [facility] HEMATOLOGY Basophils 0.7 0.0 - 1.0 02/17/2017 [facility] HEMATOLOGY Basophils # 0.1 0.0 - 0.2 02/17/2017 [facility] HEMATOLOGY Eosinophils # 0.1 0.0 - 0.5 02/17/2017 [facility] HEMATOLOGY Monocytes # 1.0 0.0 - 0.8 02/17/2017 [facility] HEMATOLOGY PT 14.1 12.0 - 14.7 02/17/2017 [facility] HEMATOLOGY INR 1.09 0.85 - 1.17 02/17/2017 [facility] CARDIAC ENZYMES BNP 688 <=100 pg/mL 02/16/2017 [facility] CHEM PANEL eGFR 66 02/16/2017 Result Comment: [...] should be multiplied by the estimated BMI. [facility] CHEM PANEL Potassium Lvl 4.3 3.5 - 5.1 02/16/2017 [facility] CHEM PANEL Sodium Lvl 133 135 - 145 02/16/2017 [facility] CHEM PANEL Chloride Lvl 98 95 - 109 02/16/2017 [facility] CHEM PANEL Glucose Lvl 364 70 - 99 02/16/2017 [facility] CHEM PANEL BUN 24 7 - 22 02/16/2017 [facility] CHEM PANEL Creatinine Lvl 1.17 0.50 - 1.40 02/16/2017 [facility] CHEM PANEL Calcium Lvl 9.4 8.5 - 10.5 02/16/2017 [facility] CHEM PANEL CO2 25 24 - 32 02/16/2017 [facility] CHEM PANEL AGAP 14.3 10.0 - 20.0 02/16/2017 [facility] URINE AND STOOL UA Urobilinogen <=1.0 mg/dL 0.1 - 1.0 02/15/2017 [facility] URINE AND STOOL UA Sq Epi None Seen 02/15/2017 [facility] URINE AND STOOL UA Mucus Few /LPF None Seen /LPF 02/15/2017 [facility] URINE AND STOOL UA Sperm Few /HPF None Seen /HPF 02/15/2017 [facility] URINE AND STOOL UA Leuk Est Negative (02/15/17 11:19 AM) Negative 02/15/2017 [facility] URINE AND STOOL UA WBC <1 0 - 5 02/15/2017 [facility] URINE AND STOOL UA RBC 2 0 - 2 02/15/2017 [facility] URINE AND STOOL UA Nitrite Negative (02/15/17 11:19 AM) Negative 02/15/2017 [facility] URINE AND STOOL UA Bili Negative *NA* (02/15/17 11:19 AM) Negative 02/15/2017 [facility] URINE AND STOOL UA Blood Negative (02/15/17 11:19 AM) Negative 02/15/2017 [facility] URINE AND STOOL UA Glucose >=1000 mg/dL Negative mg/dL 02/15/2017 [facility] URINE AND STOOL UA Ketones 40 mg/dL Negative mg/dL 02/15/2017 [facility] URINE AND STOOL UA Spec Grav 1.027 <=1.030 02/15/2017 [facility] URINE AND STOOL UA pH 5.5 5.0 - 8.0 02/15/2017 [facility] URINE AND STOOL UA Protein Negative mg/dL Negative mg/dL 02/15/2017 [facility] URINE AND STOOL UA Color Yellow *NA* (02/15/17 11:19 AM) Yellow 02/15/2017 [facility] URINE AND STOOL UA Turbidity Clear (02/15/17 11:19 AM) Clear 02/15/2017 [facility] CARDIAC ENZYMES Troponin-I 0.02 0.00 - 0.40 02/15/2017 [facility] CARDIAC ENZYMES CK MB 3.7 0.5 - 3.6 02/15/2017 [facility] CARDIAC ENZYMES Total CK 104 12 - 191 02/15/2017 [facility] CARDIAC ENZYMES CK MB Index 3.6 0.0 - 2.5 02/15/2017 [facility] CHEM PANEL Lactic Acid Lvl 1.9 0.5 - 2.2 02/15/2017 [facility] CHEM PANEL A/G Ratio 0.8 0.7 - 1.6 02/15/2017 [facility] CHEM PANEL Total Protein 7.6 6.4 - 8.4 02/15/2017 [facility] CHEM PANEL Albumin Lvl 3.4 3.5 - 5.0 02/15/2017 [facility] CHEM PANEL Alk Phos 71 39 - 136 02/15/2017 [facility] CHEM PANEL Bili Total 1.4 0.2 - 1.3 02/15/2017 [facility] CHEM PANEL B/C Ratio 21 6 - 25 02/15/2017 [facility] CHEM PANEL Globulin 4.2 2.7 - 4.2 02/15/2017 [facility] CHEM PANEL ALT 58 0 - 65 02/15/2017 [facility] CHEM PANEL AST 37 0 - 37 02/15/2017 [facility] Pathology Reports No Data Provided for This [...] posterior fossa arachnoid cyst. SL: [id number] 10/16/2017 [facility] Chest 1view DX EXAM: XR CHEST 1 [...] No acute cardiopulmonary abnormality. SL: [id number] 10/16/2017 [facility] Brain wo contrast CT Clinical Indication: Weakness. [...] chronic microvascular ischemic changes. SL: JANE 10/16/2017 [facility] Brain/Neck CTA Clinical Indication: Vertigo. Comparison: CT [...] carotid or vertebrobasilar circulations. SL: JANE 10/16/2017 [facility] Tib Fib wo contrast CT Exam: Left Tib Fib wo contrast CT Clinical indication: I70.213 Atherosclerosis of [place] arteries of extremities with intermittent claudication, bilateral [...] abscess. 2. No acute osseous abnormality. SL: [id number] 04/24/2017 [facility] Tibia fibula series DX Examination: Left Tibia [...] tibia or fibula is identified. 04/13/2017 [facility] Ext Artery Single Level Bilat US Clinical Indication: - I70.213 Atherosclerosis of [place] arteries of extremities with intermittent claudication, bilateral [...] EXTREMITY: Left ankle-brachial index deferred by the bread stacker due to the presence of superficial venous [...] confirmation at the time of dictation. SL: [id number] 04/13/2017 [facility] Arterial Doppler bilat US Clinical Indication: - I70.213 Atherosclerosis of [place] arteries of extremities with intermittent claudication, bilateral [...] EXTREMITY: Left ankle-brachial index deferred by the bread stacker due to the presence of superficial venous [...] confirmation at the time of dictation. SL: [id number] 04/13/2017 [facility] [place] Chest 1view DX EXAM: XR CHEST 1 VIEW DATE: 03/04/2017 9:05 AM [employer] INDICATION: - dyspnea COMPARISON: 03/03/2017 TECHNIQUE: AP [...] pneumonia. 2. Trace bilateral pleural effusions. 03/04/2017 [facility] Chest 1view DX EXAM: XR CHEST 1 VIEW DATE: 03/03/2017 3:00 AM [employer] INDICATION: Shortness of Breath - SOB. FINDINGS: Comparison is made to yesterday. The cardiomediastinal silhouette and postoperative changes are stable. A patchy left retrocardiac opacity could be due to atelectasis and/or pneumonia. There is mild right perihilar subsegmental atelectasis. No pleural effusions are identified. Impression: No significant change. 03/03/2017 [facility] Chest 1view DX EXAM: XR CHEST 1 [...] compared to the radiograph of 03/01/2017. 03/02/2017 [facility] Chest 1view DX EXAM: XR CHEST 1 VIEW DATE: 03/01/2017 3:00 AM [employer] INDICATION: Shortness of Breath - SOB COMPARISON: 02/28/2017 TECHNIQUE: AP chest FINDINGS: Lines, tubes and hardware: Interval removal of the right IJ Jessie-Oleg catheter seen with its sheath remaining in [...] 1. Interval removal of the right IJ Jessie-Oleg catheter with its sheath remaining in the right IJ. 2. Otherwise, no significant interval change compared to the prior study. 03/01/2017 [facility] Chest 1view DX EXAM: XR CHEST 1 VIEW DATE: 02/28/2017 INDICATION: Tube placement/removal/reposition - POST OP . Comparison is made with yesterday FINDINGS: Cardiomediastinal silhouette, postoperative changes and Jessie-Oleg catheter are unchanged. Bilateral pleural effusions are [...] clear IMPRESSION: Increasing left retrocardiac opacity. 02/28/2017 [facility] Chest 1view DX EXAM: XR CHEST 1 VIEW DATE: 02/27/2017 at 1245 hours INDICATION: - chest tube removal . Comparison is made with radiograph 9 hours earlier today FINDINGS: The mediastinal drain and a left-sided chest tube have been removed. Cardiomediastinal silhouette, sternotomy wires and Jessie-Oleg catheter are unchanged. No pneumothorax is visualized [...] in order to exclude small pneumothoraces.. 02/27/2017 [facility] Chest 1view DX EXAM: XR CHEST 1 [...] change when compared to prior radiograph. 02/27/2017 [facility] Chest 1view DX EXAM: XR CHEST 1 VIEW DATE: 02/26/2017 6:19 PM [employer] INDICATION: - postion of mediastinal chest tube COMPARISON: 02/26/2017 chest radiograph at 1039 hours TECHNIQUE: AP chest FINDINGS: Lines, tubes and hardware: Interval removal of the right-sided chest tube. The Jessie-Oleg catheter, mediastinal tube, left chest tube, and median sternotomy wires are unchanged. Lungs and pleura: No definite pneumothorax is identified. Mild bibasilar hazy opacities, more prominent on the left. Heart and mediastinum: The cardiomediastinal silhouette is stable. IMPRESSION: 1. Interval removal of a right-sided chest tube. 2. No radiographically evident pneumothorax is identified. [place] SECTION: Chest 02/26/2017 [facility] Chest 1view DX EXAM: XR CHEST 1 VIEW DATE: 02/26/2017 10:21 AM [employer] INDICATION: - s/p chest tube removal COMPARISON: [...] change compared to the prior study. 02/26/2017 [facility] Chest 1view DX EXAM: XR CHEST 1 VIEW DATE: 02/26/2017 7:56 AM [employer] INDICATION: - pulled chest tube COMPARISON: Semierect [...] mediastinal drains. Remaining findings are unchanged. 02/26/2017 [facility] Chest 1view DX EXAM: XR CHEST 1 VIEW DATE: 02/26/2017 3:00 AM [employer] INDICATION: Tube placement/removal/reposition - POST OP COMPARISON: [...] and tubes grossly stable in position. 02/26/2017 [facility] Abdomen AP DX EXAM: XR ABDOMEN 1 [...] wires. * EKG leads. * Partially visualized Jessie-Oleg catheter. Other: No other changes. IMPRESSION: 1. Tube positions as above. 02/25/2017 [facility] Chest 2 views DX EXAM: XR CHEST 1 VIEW DATE: 02/25/2017 4:49 PM [employer] INDICATION: protocol closure - protocol closure COMPARISON: 02/25/2017 TECHNIQUE: AP chest FINDINGS/ IMPRESSION: Compared to the prior examination there is redemonstration of life support lines including a Jessie-Oleg catheter with tip in the main pulmonary [...] tubes. There is no pneumothorax seen. 02/25/2017 [facility] Chest 1 v for Placement DX Chest [...] IABP. Otherwise, no significant interval change. 02/25/2017 [facility] Chest 1 v for Placement DX Chest [...] shows it has since been advanced. 02/25/2017 [facility] Chest 1view DX EXAM: XR CHEST 1 VIEW DATE: 02/25/2017 10:06 AM [employer] INDICATION: - preop COMPARISON: 02/24/2017 TECHNIQUE: AP chest FINDINGS: Lines, tubes and hardware: Slight interval retraction of the right IJ Jessie-Oleg catheter seen with its tip in the [...] Slight interval retraction of the right IJ Jessie-Oleg catheter with its tip projecting over the right main coronary artery. 3. Mild bibasilar atelectasis. 02/25/2017 [facility] Chest 1view DX EXAM: XR CHEST 1 [...] change when compared to prior radiograph. 02/24/2017 [facility] Chest 1view DX EXAM: XR CHEST 1 VIEW DATE: 02/23/2017 6:24 PM [employer] INDICATION: - Post op COMPARISON: 02/23/2017 at 1725 hours TECHNIQUE: AP chest IMPRESSION: 1. Lines and tubes are stable compared to previous study. 2. Cardiomediastinal silhouette is enlarged, unchanged. 3. Diminished lung volumes bilaterally with bibasilar subsegmental platelike atelectatic changes and prominent lung vasculature. 4. Small amount of left pleural effusion is noted. 5. Osseous structures are stable. 02/23/2017 [facility] Chest 2 views DX EXAM: XR CHEST 2 views DATE: 02/23/2017 5:20 PM [employer] INDICATION: INCORRECT INSTRUMENT COUNT/TOO MANY INSTRUMENTS/EXTRA SCISSORS AND CHEST TUBE PASSER - INCORRECT INSTRUMENT COUNT/TOO MANY INSTRUMENTS/EXTRA SCISSORS AND CHEST TUBE PASSER COMPARISON: 02/22/2017 TECHNIQUE: AP and Lateral chest radiographs IMPRESSION: 1. Post sternotomy surgical changes with interval placement of endotracheal tube with the tip terminates 4.3 cm above the charo. Interval placement of right IJV Jessie-Oleg catheter with tip projects over the main [...] of left pleural effusion is noted. 02/23/2017 [facility] Chest 1view DX EXAM: XR CHEST 1 VIEW DATE: 02/22/2017 1:31 PM [employer] INDICATION: - cough. FINDINGS: Comparison is made [...] Small bilateral pleural effusions have decreased. 02/22/2017 [facility] Cardiac Function Complete MRI EXAM: MR HEART WITHOUT AND WITH CONTRAST DATE: 02/20/2017 1:58 PM [employer] INDICATION: NSTEMI, Coronary artery disease. ADDITIONAL INFORMATION: [...] imaging sequences. Alex Broussard et. al. 02/21/2017 [facility] Chest 1view DX EXAM: XR CHEST 1 VIEW DATE: 02/20/2017 6:19 AM [employer] INDICATION: Heart failure - CAP COMPARISON: 02/18/2017 TECHNIQUE: AP chest IMPRESSION: 1. Cardiomediastinal silhouette is upper limit of normal size. 2. Bilateral [id number] pleural effusions with bibasilar subsegmental atelectatic changes. 3. Osseous structures are stable. 02/20/2017 [facility] Chest 2 views DX Patient Name: ANKUR WISE : 1955; Age: 61 years y/o Male MR: [id number] Study: CHEST 2 VIEWS DX 02/18/2017 1:04 PM [employer] Ordering Physician: Perry Read MD Clinical Indication: [...] lungs are clear. SL: ROSA ISELA 02/18/2017 [facility] Carotid artery Doppler bilat US Clinical Indication: [...] low, or Variable undetectable SL: [id number] 02/18/2017 [place] [facility] [place] Chest 1view DX Clinical Indication: chest pain [...] pneumonia and small bilateral pleural effusions. SL: [id number] 02/15/2017 [facility] Consultation Notes No Data Provided for This Section Discharge Summaries No Data Provided for This Section History and Physicals No Data Provided for This Section Vital Signs Vital Sign Value Date Comments Source Respitory Rate 15 10/17/2017 [facility] Systolic (mm Hg) 124 10/17/2017 [place] [facility] Diastolic (mm Hg) 86 10/17/2017 [place] [facility] Heart Rate 102 10/17/2017 [facility] Temperature Oral (F) 97.7 F 10/17/2017 [facility] Systolic (mm Hg) 125 10/17/2017 [place] Diastolic (mm Hg) 79 10/17/2017 [place] [facility] Heart Rate 92 10/17/2017 [facility] Respitory Rate 15 10/17/2017 [place] [facility] Temperature Oral (F) 99 F 10/17/2017 [facility] Temperature Oral (F) 98.7 F 10/17/2017 [place] [facility] Heart Rate 91 10/17/2017 [facility] Respitory Rate 18 10/17/2017 [facility] Systolic (mm Hg) 127 10/17/2017 [facility] Diastolic (mm Hg) 79 10/17/2017 [facility] Weight 100.909 10/16/2017 [facility] Height 193.04 cm 10/16/2017 [place] [facility] BMI Calculated 27.08 10/16/2017 [facility] Weight 113.636 10/16/2017 [place] [facility] BMI Calculated 33.05 10/16/2017 [facility] Height 185.42 cm 10/16/2017 [place] [facility] [place] BMI Calculated 30.98 08/31/2017 [facility] Weight 115.455 08/31/2017 [facility] Height 193.04 cm 08/31/2017 [facility] Height 193.04 cm 08/19/2017 [facility] Weight 100 08/19/2017 [facility] BMI Calculated 26.84 08/19/2017 [facility] Respitory Rate 18 08/19/2017 [facility] Heart Rate 94 08/19/2017 [facility] Systolic (mm Hg) 82 08/19/2017 [facility] Diastolic (mm Hg) 60 08/19/2017 [facility] BMI Calculated 26.47 06/03/2017 [facility] Height 193.04 cm 06/03/2017 [facility] Weight 98.636 06/03/2017 [facility] Systolic (mm Hg) 131 06/03/2017 [facility] Diastolic (mm Hg) 84 06/03/2017 [facility] Heart Rate 89 06/03/2017 [facility] Respitory Rate 18 06/03/2017 [facility] Height 193.04 cm 06/03/2017 [place] BMI Calculated 26.47 06/03/2017 [place] [facility] Weight 98.636 06/03/2017 [place] Weight 99.545 05/20/2017 [facility] BMI Calculated 26.71 05/20/2017 [facility] Height 193.04 cm 05/20/2017 [facility] Systolic (mm Hg) 140 05/20/2017 [facility] Diastolic (mm Hg) 88 05/20/2017 [facility] Respitory Rate 18 05/20/2017 [facility] Heart Rate 72 05/20/2017 [facility] BMI Calculated 25.86 04/13/2017 [facility] Systolic (mm Hg) 108 04/13/2017 [facility] Diastolic (mm Hg) 70 04/13/2017 [facility] Heart Rate 84 04/13/2017 [facility] Temperature Oral (F) 96.4 F 04/13/2017 [facility] Respitory Rate 18 04/13/2017 [facility] Weight 96.364 04/13/2017 [facility] Height 193.04 cm 04/13/2017 [facility] Height 193.04 cm 04/05/2017 [facility] Heart Rate 80 04/05/2017 [facility] Temperature Oral (F) 96.8 F 04/05/2017 [facility] Respitory Rate 20 04/05/2017 [facility] Systolic (mm Hg) 158 04/05/2017 [facility] Diastolic (mm Hg) 90 04/05/2017 [facility] Temperature Oral (F) 97.0 F 03/17/2017 [facility] Heart Rate 101 03/17/2017 [facility] Systolic (mm Hg) 126 03/17/2017 [facility] Diastolic (mm Hg) 80 03/17/2017 [facility] BMI Calculated 25.49 03/17/2017 [facility] Weight 95 03/17/2017 [facility] Height 193.04 cm 03/17/2017 [facility] Temperature Oral (F) 97.0 F 03/17/2017 [facility] Systolic (mm Hg) 126 03/17/2017 [facility] Diastolic (mm Hg) 80 03/17/2017 [facility] Respitory Rate 20 03/17/2017 [facility] Heart Rate 101 03/17/2017 [facility] Systolic (mm Hg) 134 03/07/2017 [facility] Diastolic (mm Hg) 89 03/07/2017 [facility] Respitory Rate 18 03/07/2017 [facility] Respitory Rate 19 03/07/2017 [facility] Systolic (mm Hg) 137 03/07/2017 [facility] Diastolic (mm Hg) 76 03/07/2017 [facility] Systolic (mm Hg) 114 03/07/2017 [facility] Diastolic (mm Hg) 72 03/07/2017 [facility] Temperature Oral (F) 98 F 03/07/2017 [facility] Respitory Rate 17 03/07/2017 [facility] Temperature Oral (F) 97.6 F 03/07/2017 [facility] Temperature Oral (F) 96.8 F 03/07/2017 [facility] Height 193.04 cm 02/26/2017 [facility] Height 193.04 cm 02/26/2017 [facility] Height 193.04 cm 02/26/2017 [facility] Heart Rate 73 02/23/2017 [facility] Heart Rate 66 02/23/2017 [facility] Heart Rate 73 02/23/2017 [facility] Weight 100.909 02/20/2017 [facility] BMI Calculated 27.08 02/20/2017 [facility] Temperature Oral (F) 98 F 02/20/2017 [place] Heart Rate 73 02/20/2017 [place] Systolic (mm Hg) 101 02/20/2017 [place] Diastolic (mm Hg) 66 02/20/2017 [place] Respitory Rate 18 02/20/2017 [place] Systolic (mm Hg) 101 02/20/2017 [facility] [place] Diastolic (mm Hg) 67 02/20/2017 [place] Respitory Rate 18 02/20/2017 [place] Temperature Oral (F) 97.7 F 02/20/2017 [place] Heart Rate 75 02/20/2017 [place] Heart Rate 77 02/19/2017 [place] Respitory Rate 18 02/19/2017 [place] Systolic (mm Hg) 101 02/19/2017 [place] Diastolic (mm Hg) 67 02/19/2017 [place] Temperature Oral (F) 97.6 F 02/19/2017 [place] Weight 102.5 02/19/2017 [place] Height 193.04 cm 02/16/2017 [place] BMI Calculated 29.76 02/16/2017 [place] Weight 110.909 02/16/2017 [place] Weight 97.727 02/15/2017 [place] Height 193.04 cm 02/15/2017 [place] BMI Calculated 26.23 02/15/2017 [place] Encounters Location Location Details Encounter Type Encounter Number Reason For Visit Attending Provider ADM Date DC Date Status Source [facility] Inpatient [id number] Perry Jacek 02/15/2017 02/19/2017 [facility] Inpatient [id number] Adam Roseanne 02/20/2017 03/07/2017 [facility] Outpatient [id number] Mauricio Puentes 03/17/2017 03/18/2017 [facility] Outpatient [id number] Nicky Marte 03/25/2017 03/25/2017 [facility] [place] Outpatient [id number] Adam Roseanne 04/05/2017 04/06/2017 [facility] Outpatient [id number] Adam Roseanne 04/05/2017 04/06/2017 [facility] Outpatient Imaging [place] Outpt Diag Services [id number] Adam Roseanne 04/13/2017 04/14/2017 [facility] [place] Outpatient [id number] Contreras Baires 04/13/2017 04/14/2017 [facility] [place] [facility] [id number] Adam Roseanne 04/16/2017 04/16/2017 [facility] [place] [facility] Outpatient Imaging [place] Outpt Diag Services [id number] Adam Roseanne 04/24/2017 04/25/2017 [facility] [place] Outpatient [id number] Adam Roseanne 05/20/2017 05/21/2017 [facility] Outpatient [id number] Adam Roseanne 06/03/2017 06/04/2017 [facility] [place] Outpatient [id number] Adam Roseanne 06/03/2017 06/04/2017 [facility] [place] Outpatient [id number] Adam Roseanne 08/19/2017 08/20/2017 [facility] [place] Outpatient [id number] Adam Roseanne 08/31/2017 09/01/2017 [facility] Observation [id number] Alfonzo Triplettgrazyna 10/16/2017 10/17/2017 [facility] [place] Outpatient [id number] Adam Cronin 11/08/2017 11/08/2017 [facility] Procedures Procedure Code Date Perfomer Comments Source CABG x 5 - Coronary artery bypass grafts x 5 [id number] 02/23/2017 [facility] [place] CABG x 5 - Coronary artery bypass grafts x 5 [id number] 02/23/2017 [facility] CABG x 5 - Coronary artery bypass grafts x 5 [id number] 02/23/2017 [facility] Biliary lithotripsy [id number] [facility] Partial resection of colon [id number] [facility] PCL - Percutaneous lithotripsy of renal calculus [id number] [facility] Placement of stent in cardiac conduit [id number] [facility] Biliary lithotripsy [id number] [facility] Partial resection of colon [id number] [facility] PCL - Percutaneous lithotripsy of renal calculus [id number] [facility] Placement of stent in cardiac conduit [id number] [facility] Biliary lithotripsy [id number] [facility] [place] [facility] of [id number]ercut[facility]ri[facility] of renal calculus [id number] [facility] Pl[facility] stent in cardiac conduit [id number] [facility] Biliary lithotripsy [id number] [facility] [place] Partial resection of colon [id number] [facility] [place] PCL - Percutaneous lithotripsy of renal calculus [id number] [facility] [place] Placement of stent in cardiac conduit [id number] [facility] [place] Assessment and Plan [...] PMH significant for hypertension, type 2 diabetes [id number], CAD status post CABG earlier this year, [...] history significant for hypertension, type 2 diabetes pqb-[id number]-imomoynme, CAD status post CABG earlier this year, [...] obtain orthostatic vitals, echocardiogram, trend troponins, consultation lard bleacher Dr. Roseanne Figueroa, as above, PT eval Dehydration due to decreased fluid intake, rehydrate gently given Acute kidney injury on CKD3 rehydrate gently CHF, systolic with EF of less than 35%, not in acute exacerbation Hypertension, permissive hypertension for now, will follow up with neurology recommendations Type 2 diabetes [id number], check hemoglobin A1c Prophylaxis, SCDs 10/17/2017 [facility] Extracted from:Title: HF Surgery Author: Jeronimo Sanchez [...] PMHX HTN, HLD who was transferred to [facility] for CABG in the setting of [...] course Martha Siddiqui Cardiovascular Disease Fellow Pager [phone] Cardiology Attending Attestation: I have seen and examined the patient with Dr. Shin on 02/20/17. I have reviewed all the clinical information, lab investigation and imaging data. I agree with the above findings, assessment and plan. 03/07/2017 [facility] Extracted from:Title: Cardiology Progress Note Author: Adam [...] agreed for CABG and wants this at [facility]. Will transfer to [facility] for CABG with Dr Saez. Await beds [...] by Adam Cronin MD on 02/19/2017 16:30 [employer] Borderline hypotension. Will continue current dose of lasix at 40 mg PO BID 02/19/2017 [facility] Plan of Care No Data Provided for This Section Social History Social History Date Source Social History TypeResponse Alcohol Type Wine. Frequency: 1-2 times per year. Smoking Status Never smoker; Ready to change: No; Concerns about tobacco use in household: No; Exposure to Tobacco Smoke None; Cigarette Smoking Last 365 Days No; Reg Smoking Cessation Counseling No entered on: 10/16/17 02/16/2017 [facility] TypeResponse Alcohol Type Wine. Frequency: 1-2 times per year. Smoking Status Never smoker; Ready to change: No; Concerns about tobacco use in household: No; Exposure to Tobacco Smoke None; Cigarette Smoking Last 365 Days No; Reg Smoking Cessation Counseling No entered on: 10/16/17 02/16/2017 [facility] Social History TypeResponse Alcohol Type Wine. Frequency: 1-2 times per year. Smoking Status Never smoker; Ready to change: No; Concerns about tobacco use in household: No; Exposure to Tobacco Smoke None; Cigarette Smoking Last 365 Days No; Reg Smoking Cessation Counseling No entered on: 06/03/17 [facility] [place] Social History TypeResponse Alcohol Type Wine. Frequency: 1-2 times per year. Smoking Status Never smoker; Ready to change: No; Concerns about tobacco use in household: No; Exposure to Tobacco Smoke None; Cigarette Smoking Last 365 Days No; Reg Smoking Cessation Counseling No entered on: 10/16/17 02/16/2017 [facility] [place] Family History No Data Provided for This Section Advance Directives No Data Provided for This Section Functional Status No Data Provided for This Section
[2018-08-09 00:37] LABS: BASOPHILS # (AUTO) 0.1 (0.0-0.1); BASOPHILS % 0.8 % (0.0-1.0); EOSINOPHILS # (AUTO) 0.4 (0.0-0.4); EOSINOPHILS % 2.5 % (0.0-6.0); HEMATOCRIT 46.1 % (38.2-49.6); HEMOGLOBIN 16.2 g/dL (14.0-18.0); LYMPHOCYTES # (AUTO) 3.3 (1.0-3.2); MEAN CORPUSCULAR HEMOGLOBIN 36.7 pg (28-32); MEAN CORPUSCULAR HGB CONC 35.1 g/dL (31-35); MEAN CORPUSCULAR VOLUME 104.3 fL (81-99); MONOCYTES # (AUTO) 2.2 (0.2-0.8); MONOCYTES % 14.3 % (4.4-11.3); NEUTROPHILS # (AUTO) 9.1 (2.1-6.9); PLATELET COUNT 220 x10e3/uL (140-360); RED BLOOD COUNT 4.42 x10e6/uL (4.3-5.7); RED CELL DISTRIBUTION WIDTH 12.8 % (11.7-14.4)
[2018-08-09] MEDS: MORPHINE SULFATE INJ 4 MG/ML INJ 1ML IV PRN ×2 (00:43→01:13)
[2018-08-09 00:57] LABS: ALBUMIN 3.4 g/dL (3.5-5.0); ALBUMIN/GLOBULIN RATIO 0.9 (0.8-2.0); ANION GAP 17.1 mmol/L (8-16); CALCIUM 9.9 mg/dL (8.4-10.2); CREATININE, SERUM 1.63 mg/dL (0.72-1.25); POTASSIUM 4.1 mmol/L (3.5-5.1)
[2018-08-09] MEDS ORDERED: IOPAMIDOL 370 MG/ML 200 ML INFUS..BTL INJ ONE (02:09)
[2018-08-09] MEDS ORDERED: SODIUM CHLORIDE 0.9% 50ML 50 ML ONE (02:09)
--- NOTE | 2018-08-09 03:02 | Diagnostic Imaging Report ---
CT Lower extremity right with contrast, with reconstructions. CPT code: 17692, 65404 Indications: Abscess. Technique: Contiguous 2.5 mm thickness axial images were obtained from the right hip to the medial tibia. 100 cc of intravenous contrast was administered. RADIATION DOSE: Total DLP: 464.7 mGy*cm Estimated effective dose: (DLP x 0.015 x size factor) mSv CTDIvol has been reviewed. It is below the limits set by the Radiation Protocol Committee (RPC). Dose reduction techniques used: Automated exposure control, adjustment of the mAs and/or kVp according to patient size, standardized low-dose protocol, and/or iterative reconstruction technique. Comparison: None. Findings: Subcutaneous loculated fluid collection in the distal medial right thigh measures 5.0 x 4.5 x 8.7 cm. There is surrounding subcutaneous edema. There are calcifications at the superior and inferior aspect of the collection. The greater saphenous vein lies superior and posterior to this collection. No additional fluid collections. Visualized intrapelvic structures demonstrate a spiculated calcification the posterior bladder measuring 1.7 cm. There is a dependently layering calcification along the posterior wall to the left of midline measuring 4 mm. There are calcifications in the prostate gland. Visualized bowel is unremarkable. No evidence of lymphadenopathy. Bones: Mild degenerative changes of the right hip with a bone island in the femoral head. Postoperative changes of the knee from ACL repair. No knee or hip effusion. No focal osseous lesions. IMPRESSION: 1. Loculated fluid collection in the medial and inferior right thigh with adjacent cellulitis. The differential includes abscess, seroma, or lymphocele. 2. Intraluminal bladder calculi suggestive of stasis. 3. Postoperative changes of the right knee as described above. Thank you for this referral. Signed by: Dr. Samantha Nix MD on 08/09/2018 2:58 AM
[2018-08-09] MEDS: SODIUM CHLORIDE 0.9% 1000ML 1,000 ML IV SCH ×2 (03:12→12:48)
[2018-08-09] MEDS ORDERED: HYDROMORPHONE 1MG/1ML INJ IV STA (04:29)
--- NOTE | 2018-08-09 06:54 | NUR ---
REPORT ENDORSED AND CARE GIVEN TO RAUL HERNANDEZ
[2018-08-09 07:53] LABS: BASOPHILS # (AUTO) 0.1 (0.0-0.1); BASOPHILS % 0.9 % (0.0-1.0); EOSINOPHILS # (AUTO) 0.5 (0.0-0.4); EOSINOPHILS % 3.8 % (0.0-6.0); HEMATOCRIT 41.1 % (38.2-49.6); HEMOGLOBIN 14.2 g/dL (14.0-18.0); LYMPHOCYTES # (AUTO) 3.3 (1.0-3.2); LYMPHOCYTES % 24.5 % (18.0-39.1); MEAN CORPUSCULAR HEMOGLOBIN 36.1 pg (28-32); MEAN CORPUSCULAR HGB CONC 34.5 g/dL (31-35); MEAN CORPUSCULAR VOLUME 104.6 fL (81-99); MONOCYTES # (AUTO) 1.8 (0.2-0.8); MONOCYTES % 13.8 % (4.4-11.3); NEUTROPHILS # (AUTO) 7.5 (2.1-6.9); NEUTROPHILS % 56.6 % (38.7-80.0); PLATELET COUNT 202 x10e3/uL (140-360); RED BLOOD COUNT 3.93 x10e6/uL (4.3-5.7); RED CELL DISTRIBUTION WIDTH 13.1 % (11.7-14.4)
[2018-08-09] MEDS ORDERED: VANCOMYCIN 1GM/NS 250 ML 250 ML IV SCH (09:00)
--- NOTE | 2018-08-09 09:24 | NUR ---
pt placed on wale bed
--- NOTE | 2018-08-09 10:44 | NUR ---
Dr Lino Lei at pt bedside
--- NOTE | 2018-08-09 15:20 | NUR ---
Received patient via wheelchair from ER. AAOx4 to time, person, place, situation. Respirations even and unlabored. right thigh raised area warm and tender. Oriented patient to room. Instructed to use call light for assistance. Voiced understanding. Will continue to monitor.
[2018-08-09] MEDS: HYDROMORPHONE 2MG/ML 2 MG/ML ML IV PRN ×2 (15:40→21:55)
[2018-08-09 15:49] VITALS: BP 129/68
[2018-08-09] MEDS ORDERED: SAW PALMETTO450 MG PO (15:53)
[2018-08-09] MEDS ORDERED: MULTIVITAMINS1 EAC6 PO (15:53)
[2018-08-09] MEDS ORDERED: BIOTIN1 MG PO (15:53)
[2018-08-09 16:00] VITALS: BP 129/68
[2018-08-09 16:01] VITALS: BP 129/68
[2018-08-09] MEDS ORDERED: PNEUMOCOCCAL VACCINE POLYVALENT 23 MCG/0.5 ML VIAL IM SCH (16:16)
--- NOTE | 2018-08-09 17:04 | NUR ---
Dr. Lei. S aware of CT lower extremity results. See orders.
--- NOTE | 2018-08-09 17:05 | NUR ---
Spoke to Radha from Dr.P Delacruz office to notify of stat consult
[2018-08-09] MEDS ORDERED: CEFTRIAXONE SOD 1 GM VIAL IV SCH (18:30)
--- NOTE | 2018-08-09 18:55 | NUR ---
Received report from previous nurse. call light within reach. patient in bed.
--- NOTE | 2018-08-09 19:10 | NUR ---
Report given to oncoming nurse of patient's status. Resting in bed. No s/s of acute distress noted.
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
[2018-08-09] MEDS: CEFTRIAXONE SOD 2 GM/NS 100 ML 100 ML IV SCH (19:25)
[2018-08-09 20:00] VITALS: BP 122/68
--- NOTE | 2018-08-09 20:50 | NUR ---
Patient has a 100.5 temperature, called Dr. Oz Lei office and waiting for him to call back.
--- NOTE | 2018-08-09 21:20 | NUR ---
Did not receive a call from Dr. Oz Lei and patient's temperature went to 101. Called and talked to Dr. Lizzy Delacruz about the patient's temperature. Dr. Lizzy Delacruz ordered Tylenol 650 mg PO every 4-6 hr, PRN for a temperature greater than 102. He said before giving the Tylenol, take blood cultures x 3, 15 minutes apart then give the Tylenol. If he get a temperature after midnight, give Tylenol with sips of water.
[2018-08-09] MEDS ORDERED: ACETAMINOPHEN 325 MG TAB PO PRN (21:30)
[2018-08-09] MEDS: VANCOMYCIN 1GM/NS 250 ML 250 ML IV SCH (21:55)
[2018-08-09] MEDS ORDERED: ACETAMINOPHEN 325 MG TAB PO ONE (23:15)
--- NOTE | 2018-08-09 23:25 | NUR ---
Dr. Oz Lei called and was told about the patient's temperature which is now 100.5F. Dr. Oz Lei said to give one dose Tylenol 650 mg, PO now.
[2018-08-10] VITALS (8 sets, daily range): BP systolic 110–132; BP diastolic 58–72
[2018-08-10] MEDS: CLINDAMYCIN 600MG / 50ML 50 ML IV SCH ×4 (00:27→17:31)
[2018-08-10] MEDS: HYDROMORPHONE 2MG/ML 2 MG/ML ML IV PRN ×5 (02:13→21:12)
[2018-08-10] MEDS: SODIUM CHLORIDE 0.9% 1000ML 1,000 ML IV SCH (04:43)
--- NOTE | 2018-08-10 07:00 | NUR ---
BEDSIDE SHIFT REPORT RECEIVED FROM THE TRANSPORTATION JOB TITLES RN. PT IS ON NPO. PT DENIES NEEDS AT THIS TIME.
--- NOTE | 2018-08-10 07:19 | NUR ---
Gave report to oncoming nurse. Patient in bed. Call light within reach.
[2018-08-10] MEDS ORDERED: HYDROGEN PEROXIDE 120 ML BTL ONE (08:33)
--- NOTE | 2018-08-10 08:45 | NUR ---
PT OFF UNIT FOR PROCEDURE.
[2018-08-10] MEDS: SAW PALMETTO PO SCH (09:00)
[2018-08-10] MEDS: BIOTIN PO SCH (09:00)
[2018-08-10] MEDS ORDERED: LIDOCAINE HCL 2% LOCAL 20 ML VIAL ONE (10:33)
[2018-08-10] MEDS ORDERED: NEOSTIGMINE 1 MG/ML 10ML VIAL ONE (10:40)
[2018-08-10] MEDS ORDERED: SODIUM CHLORIDE 0.9% 1000ML 1,000 ML IV SCH (11:06)
[2018-08-10] MEDS ORDERED: FENTANYL CITRATE/PF 100MCG/2 ML INJ ONE ×2 (11:10→14:29)
[2018-08-10] MEDS ORDERED: METOCLOPRAMIDE HCL 10 MG/2ML VIAL IV PRN (11:15)
[2018-08-10] MEDS ORDERED: ACETAMINOPHEN 1000 MG/100 ML IV PRN (11:15)
[2018-08-10] MEDS ORDERED: DIPHENHYDRAMINE HCL INJ 50 MG/ML VIAL IM PRN (11:15)
[2018-08-10] MEDS ORDERED: DIPHENHYDRAMINE HCL 25 MG CAP PO PRN (11:15)
[2018-08-10] MEDS ORDERED: MORPHINE SULFATE 1 MG/ML 30ML PCA IV PRN (11:15)
[2018-08-10] MEDS ORDERED: HYDROMORPHONE 0.2MG/ML-SOD CHL 30ML PCA SYRINGE IV PRN (11:15)
[2018-08-10] MEDS ORDERED: ONDANSETRON HCL INJ 2MG/ML 2ML 2 MG/ML VIAL IV PRN (11:15)
[2018-08-10] MEDS ORDERED: KETOROLAC TROMETHAMINE 30 MG/ML VIAL IV PRN ×2 (11:15)
[2018-08-10] MEDS ORDERED: HYDROCODONE/APAP 7.5MG-325MG 1 EA TAB PO PRN (11:15)
[2018-08-10] MEDS ORDERED: HYDROMORPHONE 2MG/ML 2 MG/ML ML ONE (11:48)
--- NOTE | 2018-08-10 12:20 | NUR ---
PT BACK TO UNIT AFTER PROCEDURE. AAOX3. PT FAMILY AT BEDSIDE. CALL MATTHEWS WITH IN REACH. BED IS LOCKED AND THE LOWEST POSITION. PT DENIES NEEDS AT THIS TIME.
--- NOTE | 2018-08-10 12:29 | Operative Report ---
DATE OF PROCEDURE: 08/10/2018 SURGEON: Gregory Delacruz MD PREOPERATIVE DIAGNOSIS: Abscess of the left distal medial thigh. POSTOPERATIVE DIAGNOSIS: Infected lymphocele, left distal medial thigh. PROCEDURE PERFORMED: Drainage of infected lymphocele and excision of lymphocele capsule. ANESTHESIA: General. ESTIMATED BLOOD LOSS: Minimal. DRAINS: One 10-mm flat Sabino-Bartholomew drain. COMPLICATIONS: None. INDICATION AND FINDINGS: This patient is a 63-year-old male, splenectomized due to trauma, status post CABG about a year and a half ago with saphenous vein harvested on the right thigh, who now presents with fever and swelling of the right medial thigh distally at the site of the distal harvest of the saphenous vein. Intraoperative findings were infected lymphocele with a rind or capsule. This capsule was excised in its entirety to prevent reaccumulation. DESCRIPTION OF PROCEDURE: With the patient on the operative table in the supine position, after administration of general anesthesia, he was prepped and draped for I and D of presumed abscess of the right distal thigh. An incision was made directly over the previously placed scar and near came into view the lymphocele with some murky fluid. Aerobic and anaerobic cultures were taken. Then, I realized that this was encapsulated lymphocele, which then I proceeded to excise the capsule. I removed a combination of blunt and sharp dissection all of the capsule. Bleeding points were cauterized. The wound was irrigated with saline and then a 10 mm flat Sabino-Bartholomew drain was placed to drain the cavity folded on itself, brought out through the superior part of the wound because the incision was right at the level of the knee joint and I did not want to have the drain being flexed and compressed. The drain was secured to the skin with 2-0 nylon and the wound was closed using 2-0 nylon sutures. The drain was connected to self suction. The patient tolerated the procedure well, was taken to recovery room in stable condition. Gregory Delacruz MD PJR/MODL /[id number]
[2018-08-10] MEDS: MULTIVITAMINS/MINERALS TAB PO SCH (12:37)
[2018-08-10] MEDS ORDERED: MIDAZOLAM HCL 2 MG/2 ML VIAL ONE (14:29)
[2018-08-10] MEDS ORDERED: DEXAMETHASONE SOD PHOS INJ 4 MG/ML VIAL ONE (14:49)
[2018-08-10] MEDS ORDERED: LIDOCAINE HCL 2% LOCAL INJ 5 ML SDV VIAL INJ ONE (14:49)
[2018-08-10] MEDS ORDERED: SEVOFLURANE INHAL SOLN 250 ML PEN BTL ONE (14:49)
[2018-08-10] MEDS ORDERED: ONDANSETRON HCL INJ 2MG/ML 2ML 2 MG/ML VIAL ONE (14:49)
[2018-08-10] MEDS ORDERED: PROPOFOL IV EMULSION 10 MG/ML 20 ML VIAL ONE (14:49)
[2018-08-10] MEDS: CEFTRIAXONE SOD 2 GM/NS 100 ML 100 ML IV SCH (18:00)
--- NOTE | 2018-08-10 19:00 | NUR ---
BEDSIDE SHIFT REPORT GIVEN TO THE STERILE PROC TECH RN. PT DENIED FURTHER NEEDS.
[2018-08-10] MEDS: VANCOMYCIN 1GM/NS 250 ML 250 ML IV SCH (22:55)
[2018-08-11] VITALS (8 sets, daily range): BP systolic 126–172; BP diastolic 71–81
[2018-08-11] MEDS: HYDROMORPHONE 2MG/ML 2 MG/ML ML IV PRN ×5 (00:07→19:17)
[2018-08-11] MEDS: CLINDAMYCIN 600MG / 50ML 50 ML IV SCH ×4 (00:58→18:00)
[2018-08-11 05:03] LABS: BASOPHILS % 0.1 % (0.0-1.0); HEMOGLOBIN 13.2 g/dL (14.0-18.0); LYMPHOCYTES # (AUTO) 0.8 (1.0-3.2); LYMPHOCYTES % 6.6 % (18.0-39.1); MEAN CORPUSCULAR HEMOGLOBIN 36.5 pg (28-32); MEAN CORPUSCULAR HGB CONC 34.7 g/dL (31-35); MONOCYTES # (AUTO) 1.3 (0.2-0.8); MONOCYTES % 10.5 % (4.4-11.3); NEUTROPHILS % 82.5 % (38.7-80.0); PLATELET COUNT 199 x10e3/uL (140-360); RED BLOOD COUNT 3.62 x10e6/uL (4.3-5.7); RED CELL DISTRIBUTION WIDTH 12.6 % (11.7-14.4)
[2018-08-11 05:25] LABS: CALCIUM 8.7 mg/dL (8.4-10.2); CREATININE, SERUM 1.96 mg/dL (0.72-1.25)
[2018-08-11] MEDS: BIOTIN PO SCH (07:39)
[2018-08-11] MEDS: SAW PALMETTO PO SCH (07:40)
--- NOTE | 2018-08-11 07:43 | NUR ---
PT AMBULATING IN HALLWAYS AND WENT DOWNSTAIRS THIS RN ASKED PATIENT TO STAY UPSTAIRS TO BE ABLE TO MONITOR AND VISUALIZE PATIENT, PT STATES WELL IM STILL GOING DOWNSTAIRS TO THE VENDING MACHINE.
[2018-08-11] MEDS: MULTIVITAMINS/MINERALS TAB PO SCH (08:21)
--- NOTE | 2018-08-11 12:00 | NUR ---
BEDSIDE SHIFT REPORT RECEIVED FROM THE RN. PT FAMILY AT BEDSIDE. PT DENIES NEEDS AT THIS TIME.
[2018-08-11] MEDS: HYDROCODONE/APAP 7.5MG-325MG 1 EA TAB PO PRN ×2 (14:30→23:22)
--- NOTE | 2018-08-11 19:00 | NUR ---
BEDSIDE SHIFT REPORT GIVEN TO THE NECK FITTER RN. PT DENIED FURTHER NEEDS.
--- NOTE | 2018-08-11 19:15 | NUR ---
PATIENT RECEIVED. PATIENT IS RESTING IN BED, AAOX3. RESP EVEN AND UNLABORED. NO ACUTE DISTRESS NOTED. RIGHT LEG DRESSING WITH GRAHAM DRAIN NOTED, DRY AND INTACT. CALL LIGHT WITHIN REACH. BED LOW/LOCKED. CONTINUE TO MONITOR CLOSELY
[2018-08-11] MEDS: CEFTRIAXONE SOD 2 GM/NS 100 ML 100 ML IV SCH (20:00)
[2018-08-11] MEDS: VANCOMYCIN 1GM/NS 250 ML 250 ML IV SCH (22:02)
[2018-08-12] MEDS: CLINDAMYCIN 600MG / 50ML 50 ML IV SCH ×3 (00:04→12:00)
[2018-08-12 01:59] VITALS: BP 162/84
[2018-08-12 05:24] LABS: BASOPHILS # (AUTO) 0.1 (0.0-0.1); BASOPHILS % 0.7 % (0.0-1.0); EOSINOPHILS # (AUTO) 0.3 (0.0-0.4); EOSINOPHILS % 2.1 % (0.0-6.0); HEMATOCRIT 34.6 % (38.2-49.6); HEMOGLOBIN 12.3 g/dL (14.0-18.0); LYMPHOCYTES # (AUTO) 3.1 (1.0-3.2); LYMPHOCYTES % 25.6 % (18.0-39.1); MEAN CORPUSCULAR HEMOGLOBIN 36.6 pg (28-32); MEAN CORPUSCULAR HGB CONC 35.5 g/dL (31-35); MONOCYTES # (AUTO) 1.3 (0.2-0.8); MONOCYTES % 10.4 % (4.4-11.3); NEUTROPHILS # (AUTO) 7.5 (2.1-6.9); NEUTROPHILS % 60.9 % (38.7-80.0); PLATELET COUNT 200 x10e3/uL (140-360); RED BLOOD COUNT 3.36 x10e6/uL (4.3-5.7); RED CELL DISTRIBUTION WIDTH 12.4 % (11.7-14.4)
[2018-08-12 05:25] VITALS: BP 125/72
[2018-08-12 05:39] LABS: CALCIUM 8.2 mg/dL (8.4-10.2); CREATININE, SERUM 1.63 mg/dL (0.72-1.25)
--- NOTE | 2018-08-12 07:00 | NUR ---
BEDSIDE SHIFT REPORT RECEIVED FROM THE MARSHMALLOW MAKER RN. PT DENIES NEEDS AT THIS TIME.
[2018-08-12] MEDS ORDERED: PANTOPRAZOLE SOD 40 MG TABEC PO SCH (07:30)
[2018-08-12 08:00] VITALS: BP 130/70
[2018-08-12] MEDS: HYDROMORPHONE 2MG/ML 2 MG/ML ML IV PRN (08:07)
[2018-08-12] MEDS: MULTIVITAMINS/MINERALS TAB PO SCH (08:13)
[2018-08-12] MEDS: SAW PALMETTO PO SCH (08:15)
[2018-08-12] MEDS: BIOTIN PO SCH (08:15)
[2018-08-12 09:00] VITALS: BP 130/70
[2018-08-12 12:00] VITALS: BP 143/64
[2018-08-12] MEDS: HYDROCODONE/APAP 7.5MG-325MG 1 EA TAB PO PRN (13:22)
--- NOTE | 2018-08-12 15:13 | NUR ---
IMM letter delivered and explained to pt. He verbalized understanding. Signed copy placed in chart. Copy to pt.
[2018-08-12] MEDS ORDERED: LEVAQUIN500 MG PO (15:29)
[2018-08-12] MEDS ORDERED: CLINDAMYCIN HC150 MG PO (15:31)
[2018-08-12] MEDS ORDERED: TYLENOL WITH C1 EACH PO (15:34)
[2018-08-12] MEDS ORDERED: AMARYL2 MG PO (15:40)
[2018-08-12 16:00] VITALS: BP 166/89
--- NOTE | 2018-08-12 16:00 | NUR ---
PT IS ALLERGIC TO LEVAQUIN. PAGED REGARDING THE ABX PRESCRIPTION AT DISCHARGE ORDER.
--- NOTE | 2018-08-12 17:15 | NUR ---
PT IS ALLERGIC TO LEVAQUIN. PER DR. WALL DO NOT DISCHARGE PT TILL HE FIX THE ANTIBIOTIC
--- NOTE | 2018-08-12 18:00 | NUR ---
ANDRES TO DISCHARGE PT PER DR. Lizzy WALL. FAXED THE NEW ABX PRESCRIPTION TO THE [facility] PER THE PT CHOICE. REMOVED LEVAQUIN AND CLINDAMYCIN PRESCRIPTION FROM DISCHARGE RX, PER THE DR INSTRUCTION.
--- NOTE | 2018-08-12 18:01 | NUR ---
PT REFUSED ALL THE EVENING MEDICATIONS, CLINDAMYCIN AND ROCEPHIN. PER THE PT, HE IS IN A HURRY TO GO HOME.
--- NOTE | 2018-08-12 18:30 | NUR ---
PT DISCHARGED SAFELY HOME WITH FAMILY. IV REMOVED. TIP INTACT. NO BLEEDING NOTED. DRESSING APPLIED. PT DENIED FURTHER NEEDS.
--- NOTE | 2018-08-12 18:49 | Discharge Summary ---
HOSPITAL COURSE: A 63 years old male with past medical history mainly positive for coronary artery disease, diabetes, came here with an abscess on the right thigh with cellulitis. He was found to have a lymphocele, which was drained by Dr. Delacruz. Drain was placed there. The patient has been discharged by the surgeon Dr. Delacruz with oral antibiotic at home. PHYSICAL EXAMINATION: VITAL SIGNS: Blood pressure 143/64, temperature 97.9, heart rate 58 per minute, respiratory rate 20 per minute, oxygen saturation 97%. HEART: Showed regular rhythm. Normal S1, S2 sound. LUNGS: Clear bilaterally. ABDOMEN: Soft. EXTREMITIES: Show dressing on the right thigh with GRAHAM drain with bag full of fluid. LABORATORY DATA: On BMP, sodium 136, potassium 4.0, chloride 106, CO2 of 21, BUN 21, creatinine 1.63, glucose 309. On the CBC, white blood count 12.2, hemoglobin 12.3, hematocrit 34.6, platelet count 200,000 AST 16, ALT 25, total bilirubin 2.1, alkaline phosphatase 62.. FINAL IMPRESSION: 1. Right leg cellulitis with lymphocele. 2. Uncontrolled diabetes mellitus type 2 with chronic renal insufficiency. 3. Chronic renal insufficiency stage 2-3. 4. History of coronary artery disease, status post CABG, status post stents. PLAN OF TREATMENT: The patient is going to be discharged home on oral Levaquin as per Dr. Gregory Delacruz who is going to follow him in a couple of weeks. Pain medications have been prescribed. I am going to also give him a prescription for glimepiride 2 mg daily due to the fact that the patient has high blood sugar and he is supposed to monitor blood sugars at home. Follow up with Dr. Delacruz in a week. MD ELISA Phelps/COREY /[id number]
--- NOTE | 2018-08-12 19:00 | NUR ---
PT C/O PAIN ON THE LAC IV SITE. IV REMOVED. TIP INTACT. NO BLEEDING NOTED. DRESSING APPLIED. ICE PACKS APPLIED. PT DENIED FURTHER NEEDS. Addendum: 08/12/18 at 1938 by Liza Brady RN WR[facility] PT
== END 2018-08-12 18:47 | disposition home or self-care (01) | DRG 856 ==
LOC: ER 21:03 → ERHOLD 08-09 00:27 → MED/SURG2 08-09 15:24
PROC: 0JBL0ZZ Excision of Right Upper Leg Subcutaneous Tissue and Fascia, Open Approach (ICD-10-PCS; principal; 2018-08-10 10:00)
DX: T81.49XA Infection following a procedure, other surgical site, initial encounter (principal); A41.9 Sepsis, unspecified organism; L03.115 Cellulitis of right lower limb; L02.415 Cutaneous abscess of right lower limb; I89.8 Other specified noninfective disorders of lymphatic vessels and lymph nodes; E11.22 Type 2 diabetes mellitus with diabetic chronic kidney disease; I12.9 Hypertensive chronic kidney disease with stage 1 through stage 4 chronic kidney disease, or unspecified chronic kidney disease; N18.3 Chronic kidney disease, stage 3 (moderate); I25.10 Atherosclerotic heart disease of native coronary artery without angina pectoris; Z95.1 Presence of aortocoronary bypass graft; Z95.5 Presence of coronary angioplasty implant and graft; Y83.2 Surgical operation with anastomosis, bypass or graft as the cause of abnormal reaction of the patient, or of later complication, without mention of misadventure at the time of the procedure
CPT/HCPCS: 36415; 80048; 80053; 80202; 85025; 87040; 87071; 87075; 87205; 88304; 90732; 99284; G0009; J0696; J1100; J1170; J2001; J2250; J2270; J2405; J2710; J3010; J3370; J7030; Q9967

== ENCOUNTER 2018-09-13 16:33 | Inpatient (IN) | payer MEDICARE ==
[~2018-09-13] VITALS: Ht 193 cm; Wt 103.4 kg
[~2018-09-13 16:33] MED LIST: AMARYL2 MG PO; BIOTIN1 MG PO; CLINDAMYCIN HC150 MG PO; LEVAQUIN500 MG PO; MULTIVITAMINS1 EAC6 PO; SAW PALMETTO450 MG PO; TYLENOL WITH C1 EACH PO
--- OUTSIDE RECORDS SUMMARY | 2018-09-13 16:37 | XMS REPORT | Clinical Summary ---
Author Author [facility] Organization [facility] Address Unknown Phone Unavailable Care Team Providers Care Battery Builder Name Role Phone Asked, No Pcp PCP Unavailable Allergies Comments Active Allergy Reactions Severity Noted Date Muscle contraction, could not walk Levofloxacin Other (See High 02/13/2009 Comments) Medications End Date Status Medication Sig Dispensed Refills Start Date Active omega 1-iod-fwt-fish oil Take 1 0 (FISH OIL) 100-160-1,000 capsule by mg capsule mouth daily. 04/06/2018 Discontinued coenzyme [id number] E Take by 0 50-15 mg-unit/5 mL [...] (CHOLEST OFF ORAL) mouth. 04/21/2018 Discontinued omega 8-hef-iuk-fish oil by NOT 0 (FISH OIL) 100-160-1,000 [...] Left heart cath w lv gram cors [06611 (CPT)] 04/21/2018 Surgery Procedural Cardiology Figueroa Witt [...] Internal Medicine - 04/10/2018 04/06/2018 Travel after 09/12/2017 Immunizations Name Dates Previously Given Next Due [...] SHINGLES VACCINES (#1) 08/07/2003 INFLUENZA VACCINE 09/08/2018 65+ PNEUMOCOCCAL VACCINE 04/07/2023 04/07/2018, 02/20/2017 (2 of 2 - PPSV23) Implants Device Identifier Shelf Expiration Date Model / Serial / Lot Implanted Type Area Manufactur er 03/10/2020 [id number] / / [id number] Device Vasclr Clsr Baln Cath 10ml Cardiovasc N/A: N/A ACCESS Lkng Syr 5fr Rock Mynxgrip - ular CLOSURE [id number] [employer] Implanted: 04/21/2018 (Quantity not on [...] CDT HEMOGLOBIN A1C Routine 04/09/2018 5:48 AM DESIGN COORDINATOR ECHOCARDIOGRAM 2D Routine 04/07/2018 COMPLETE W MMODE SPECTRAL 11:19 AM DESIGN COORDINATOR COLOR DOPPLER ([id number]) ESTIMATED GFR Routine 04/07/2018 4:58 AM DESIGN COORDINATOR FOLATE LEVEL Routine 04/07/2018 4:58 AM DESIGN COORDINATOR VITAMIN B12 LEVEL Routine 04/07/2018 4:58 AM DESIGN COORDINATOR THYROID STIMULATING Routine 04/07/2018 HORMONE 4:58 AM DESIGN COORDINATOR BASIC METABOLIC PANEL Routine 04/07/2018 4:58 AM DESIGN COORDINATOR HC COMPLETE BLD COUNT Routine 04/07/2018 W/AUTO DIFF 4:58 AM DESIGN COORDINATOR MRI BRAIN WO CONTRAST STAT 04/06/2018 10:51 PM DESIGN COORDINATOR ESTIMATED GFR STAT 04/06/2018 6:50 PM DESIGN COORDINATOR ALCOHOL LEVEL, BLOOD STAT 04/06/2018 6:50 PM DESIGN COORDINATOR SALICYLATE LEVEL STAT 04/06/2018 6:50 PM DESIGN COORDINATOR ACETAMINOPHEN LEVEL STAT 04/06/2018 6:50 PM DESIGN COORDINATOR COMPREHENSIVE METABOLIC STAT 04/06/2018 PANEL 6:50 PM DESIGN COORDINATOR URINE DRUGS OF ABUSE STAT 04/06/2018 SCREEN 5:48 PM DESIGN COORDINATOR HC COMPLETE BLD COUNT STAT 04/06/2018 W/AUTO DIFF 5:[address] CERVICAL SPINE WO STAT 04/06/2018 CONTRAST 5:[address] HEAD WO CONTRAST STAT 04/06/2018 5:45 PM DESIGN COORDINATOR after 09/12/2017 Results * Estimated GFR (04/23/2018 4:59 AM CDT) Only the most recent of 6 results within the time period is included. Estimated GFR 54 (A) mL/min/1.73 m2 [place] Comment: DRUZE [facility] G1 >=90 Normal or high G2 60-89Mildly decreased E8c93-47 Mildly to moderately decreased Y5p97-74 Moderately to severely decreased G4 15-29Severely decreased G5 <15Kidney failure The eGFR was calculated using the Chronic Kidney Disease Epidemiology Collaboration (CKD-EPI) equation. Interpretation is based on recommendations of the National Kidney Foundation-Kidney Disease Outcomes Quality Initiative (NKF-KDOQI) published in 2014. Specimen Plasma specimen Performing Organization Address City/State/Zipcode [place] [address], [address] [place] [address] PATHOLOGY AND GENOMIC MEDICINE [facility] THE [address] [address] [facility] [address] * CBC with platelet and differential (04/23/2018 4:59 AM CDT) Only the most recent of 6 results within the time period is included. Pathologist [facility] WBC 8.58 4.50 - 11.00 k/uL [facility] RBC 3.23 (L) 4.40 - 6.00 m/uL [facility] HGB 11.9 (L) 14.0 - 18.0 g/dL [facility] HCT 35.4 (L) 41.0 - 51.0 % [facility] MCV 109.6 (H) 82.0 - 100.0 fL [facility] MCH 36.8 (H) 27.0 - 34.0 pg [facility] MCHC 33.6 31.0 - 37.0 g/dL [facility] RDW - SD 53.3 37.0 - 55.0 fL [facility] MPV 10.6 8.8 - 13.2 fL [facility] Platelet count 164 150 - 400 k/uL [facility] Nucleated RBC 0.00 /100 WBC [facility] Neutrophils 44.9 39.0 - 69.0 % [facility] Lymphocytes 33.3 25.0 - 45.0 % [facility] Monocytes 14.0 (H) 0.0 - 10.0 % [facility] Eosinophils 6.4 (H) 0.0 - 5.0 % [facility] Basophils 1.2 (H) 0.0 - 1.0 % [facility] Immature 0.2Comment: "Immature 0.0 - 1.0 % [place] granulocytes granulocytes" (promyelocytes, DRUZE THE myelocytes, metamyelocytes) [facility] Specimen Blood Performing Organization Address City/State/Zipcode [place] Number [place] [address], [address] [place] [address] PATHOLOGY AND GENOMIC MEDICINE [facility] [address] [address] [facility] [address] * Basic metabolic panel (04/23/2018 4:59 AM CDT) Only the most recent of 3 results within the time period is included. Sodium 138 135 - 148 mEq/L [facility] Potassium 3.8 3.5 - 5.0 mEq/L [facility] Chloride 101 98 - 112 mEq/L [facility] CO2 21 (L) 24 - 31 mEq/L [facility] Anion gap 16 (H) 7 - 15 mEq/L [facility] BUN 13 8 - 23 mg/dL [facility] Creatinine 1.36 (H) 0.70 - 1.20 mg/dL [facility] Glucose 103 (H) 65 - 99 mg/dL [facility] Calcium 7.7 (L) 8.8 - 10.2 mg/dL [facility] Specimen Plasma specimen Performing Organization Address City/State/Zipcode Phone Number [facility] [place] [address], [address] [place] [address] PATHOLOGY AND GENOMIC MEDICINE [facility] THE [address] [facility] [address] * Lipid panel (04/22/2018 4:37 AM CDT) Only the most recent of 2 results within the time period is included. Cholesterol 155 <200 mg/dL [facility] Triglycerides 121 <150 mg/dL [facility] HDL cholesterol 51 >40 mg/dL [facility] LDL cholesterol 85Comment: Result obtained by <100 mg/dL [place] direct LDL measurement [facility] Lipid panel SeeBelow [place] interpretation Comment: DRUZE [facility] Total Cholesterol [facility] (mg/dL) [facility] <200 Desirable 200-239Borderline -high >=240High Triglycerides (mg/dL) [...] specimen Performing Organization Address City/State/Zipcode Phone Number [facility] [place] [address], [address] [place] [address] PATHOLOGY AND GENOMIC MEDICINE [place] [address] [address] [facility] [address] * US Gallbladder (04/21/2018 5:06 PM CDT) Specimen Narrative Performed At EXAMINATION:US GALLBLADDER [facility] CLINICAL HISTORY:Abd swellingascites suspected, Nauseavomiting COMPARISON:None. FINDINGS: Gallbladder: The gallbladder is without evidence of calculi. The gallbladder wall is not thickened and there is no pericholecystic fluid. CBD:0.52 cm , within normal limits. Portal vein: The portal vein demonstrates normal hepatopedal flow. The portal vein measures 1 cm. IMPRESSION: Normal gallbladder ultrasound examination. [facility]-[id number] Procedure Note Interface, Radiology Results Incoming - [...] 1 cm. IMPRESSION: Normal gallbladder ultrasound examination. [facility]-[id number] Performing Organization Address City/State/Zipcode Phone Number [facility] [address] [place] [address] * Cv medical laboratory technicians procedure (04/21/2018 2:58 PM CDT) Specimen Narrative Performed At Elio Ibarra MD Physician Cardiology Procedures Signed Date of Service:04/21/2018 3:16 PM Signed []Hide copied text []Hover for details Training Lead:Dr. Salcedo Procedure:LHC, MITTAL - LAD angiography, SVG - OM1 and OM2 angiography, SVG - PDA and PLB angiography Indication:NSTEMI Procedure in detail:The patient was prepped and draped in sterile fashion.A 5 Fr short sheath was placed into the R ASSEMBLER [employer]NCO[employer] PIPES successfully.A 4 Fr JL-5 catheter was unable [...] LM:Patent LAD:Mid 80% stenosis LCx:OM 100% occlusion (CONTINUOUS MINER OPERATOR) RCA:Proximal 70% in-stent restenosis (ISR) Patent MITTAL - LAD. Occluded SVG - OM1 and OM2. Occluded SVG - PDA and PLB. Assessment: 1.Patent MITTAL - LAD. 2.Occluded SVG - OM1 and OM2. 3.Occluded SVG - PDA and PLB. 4.[place] OM 100% occlusion (CONTINUOUS MINER OPERATOR). 5.[place] RCA proximal 70% in-stent restenosis. Recommendations: 1.Start antianginals (Ranexa 500 mg bid). 2.F/U Dr. Adam Cronin at [place] in 1 week to assess the need for PCI RCA. ED to Hosp-Admission (Current) on 04/20/2018 Detailed Report Performing Organization Address City/State/Zipcode Phone Number [facility] [address] [place] [address] * Urinalysis screen and microscopy, with reflex to culture (04/21/2018 12:30 PM CDT) Specimen site Clean catch [facility] Color, UA Yellow [facility] Appearance, UA Clear [facility] Specific 1.024 1.001 - 1.035 [place] gravity, UA [facility] pH, UA 6.0 5.0 - 8.5 [facility] Protein, UA Negative Negative [facility] Glucose, UA Negative Negative [facility] Ketones, UA Trace (A) Negative [facility] Bilirubin, UA Negative Negative [facility] Blood, UA Large (A) Negative [facility] Nitrite, UA Negative Negative [facility] Urobilinogen, <2.0 <2.0 [place] UA [facility] Leukocyte Negative Negative [place] esterase, UA [facility] WBC, UA 1 0 - 5 /HPF [facility] RBC, UA 59 (H) 0 - 5 /HPF [facility] Yeast, UA None seen [facility] Yeast with None seen [facility] pseudohyphaeDENISSE [facility] Hyaline casts, 3 /LPF [facility] Specimen Urine Performing Organization Address City/State/Zipcode Phone Number [facility] [place] [address], [address] [place] [address] PATHOLOGY AND GENOMIC MEDICINE [facility] THE [address] [address] [facility] [address] * Partial thromboplastin time, activated (04/21/2018 11:47 AM CDT) Only the most recent of 4 results within the time period is included. PTT 59.6 (H) 23.0 - 36.0 sec [place] Comment: DRUZE THE PTT therapeutic range for [facility] unfractionated heparin is HOSPITAL 61.0-112.0 seconds which corresponds to Anti-Xa 0.3-0.7 U/ml. Specimen Blood Performing Organization Address City/[facility] Phone Number [facility] [place] [address], [address] [place] [address] PATHOLOGY AND GENOMIC MEDICINE [facility] THE [address] [facility] [address] * Cv echo 2d limited or follow up study (04/21/2018 9:59 AM CDT) BSA 2.43 m2 HM [facility] IVS,d 0.99 cm HM [facility] EF 40.72 % [facility] LVPWD,d 0.96 cm HM [facility] LVOT [...] LV EF,BP 47.84 % HM [facility] Fermin Ring[place],d A2C 9.72 cm HM [facility] [place],d A4C 10.02 cm HM [facility] Ferm[place],s A2C 10.28 cm HM [facility] Fermin [place],s A4C 9.29 cm HM [facility] LV SV,A2C [...] moderate aortic valve stenosis. Performing Organization Address City/[facility] Phone Number [facility] [address] [place] [address] * Lipase level (04/21/2018 4:20 AM CDT) Lipase 88 (H) 13 - 60 U/L [facility] Specimen Plasma specimen Performing Organization Address City/State/Zipcode Phone Number [facility] [address], [address] [place] [address] PATHOLOGY AND GENOMIC MEDICINE [facility] THE [address] [address] [facility] [address] * Amylase level (04/21/2018 4:20 AM CDT) Amylase 62 13 - 73 U/L [facility] Specimen Plasma specimen Performing Organization Address City/[facility] Phone Number [facility] [place] [address], [address] [place] [address] PATHOLOGY AND GENOMIC MEDICINE [facility] THE [address] [facility] [address] * Comprehensive metabolic panel (04/21/2018 4:20 AM CDT) Only the most recent of 3 results within the time period is included. Sodium 136 135 - 148 mEq/L [facility] Potassium 4.8 3.5 - 5.0 mEq/L [facility] Chloride 102 98 - 112 mEq/L [facility] CO2 21 (L) 24 - 31 mEq/L [facility] Anion gap 13 7 - 15 mEq/L [facility] BUN 13 8 - 23 mg/dL [facility] Creatinine 1.61 (H) 0.70 - 1.20 mg/dL [facility] Glucose 127 (H) 65 - 99 mg/dL [facility] Calcium 8.6 (L) 8.8 - 10.2 mg/dL [facility] Protein 6.5 6.3 - 8.3 g/dL [place] Comment: DRUZE THE [place] [facility] 4.6-7.0 g/dL HOSPITAL 1 week 4.4-7.6 g/dL 7 months-1year 5.1-7.3 g/dL 1-2 years5.6-7 .5 g/dL >3 years6.0-8 .0 g/dL 18-150 6.3-8.3 g/dL Albumin 3.4 (L) 3.5 - 5.0 g/dL [facility] A/G ratio 1.1 0.7 - 3.8 [facility] Alkaline 41 40 - 129 U/L [place] phosphatase [facility] AST 49 10 - 50 U/L [facility] ALT 45 5 - 50 U/L [facility] Total bilirubin 1.0 0.0 - 1.2 mg/dL [facility] Specimen Plasma specimen Performing Organization Address City/State/Zipcode [place] Number [place] [address], [address] [place] [address] PATHOLOGY AND GENOMIC MEDICINE [facility] THE [address] [address] [facility] [address] * CT Abdomen Pelvis Wo Contrast (04/21/2018 1:03 AM CDT) Specimen Narrative Performed At CT ABDOMEN PELVIS WO CONTRAST [facility] CLINICAL INDICATION:Abd paindiverticulitis suspected TECHNIQUE:Multidetector CT [...] which are not well characterized but likely business center representative of small cysts or hemangiomas. BILIARY:Normal. [...] of the distal esophagus, suggestive of esophagitis. [facility]-[id number] Procedure Note [facility], Radiology Results Incoming - 04/21/2018 2:09 AM [...] which are not well characterized but likely business center representative of small cysts or hemangiomas. BILIARY: [...] of the distal esophagus, suggestive of esophagitis. [facility]-[id number] Performing Organization Address City/State/Zipcode Phone Number [facility] [address] [place] [address] * Troponin (04/20/2018 9:26 PM CDT) Only the most recent of 4 results within the time period is included. Troponin 0.865 (H) 0.000 - 0.300 ng/mL [place] Comment: DRUZE THE 0.30 - 1.49 [facility] ng[facility] indicate increased risk of acute coronary syndrome. >=1.5 ng/ml Consistent with acute myocardial infarction. The diagnostic value of a single normal or non-diagnostic result is questionable.Serial samples at 2-6 hour intervals are required to rule out acute myocardial injury. Specimen Plasma specimen Performing Organization Address City/[facility] Centercode [place] [address], [address] [place] [address] PATHOLOGY AND GENOMIC MEDICINE [place] DRUZE THE [address] [facility] [address] * ECG 12 lead (04/20/2018 7:22 PM CDT) Only the most recent of 3 results within the time period is included. Ventricular 105 [facility] rate Atrial rate 105 [facility] MT interval 172 [facility] QRSD interval 120 [facility] QT interval 386 [facility] QTC interval 510 [facility] P axis 1 14 [facility] QRS axis 1 -52 [facility] T wave axis 101 [facility] EKG impression Sinus tachycardia with [facility] MUSE occasional premature ventricular complexes-Possible Left atrial enlargement-Left anterior fascicular block-Cannot rule out Inferior infarct (cited on or before 20-APR-2018)-Anterior infarct (cited on or before 20-APR-2018)-Abnormal ECG- Specimen Narrative Performed At Performing Organization Address City/State/Zipcode Phone Number [place] [phone] [place] [address] * Gastrointestinal panel (04/20/2018 3:50 PM CDT) Pathologist [facility] Gastrointestina Negative for all pathogens [facility] panel tested: DRUZE Negative for Salmonella HOSPITAL Negative for Campylobacter [...] Nonpreserved Performing Organization Address City/State/Zipcode Phone Number [facility] DEPARTMENT OF [address] [place] [address] PATHOLOGY AND GENOMIC MEDICINE [place] DRUZE [address] [place] [address] * POC glucose (04/20/2018 3:10 PM CDT) Only the most recent of 2 results within the time period is included. Pathologist [facility] POC glucose 150 (H) 65 - 99 mg/dL [place] Comment: DRUZE THE Meter ID: [id number] [facility] Training Lead: [facility] Specimen Performing Organization Address City/State/Zipcode Phone Number [facility] [place] [address], [address] [place] [address] PATHOLOGY AND GENOMIC MEDICINE [place] DRUZE THE [address] [address] [facility] [address] * CTA Chest W Wo Contrast (04/20/2018 11:46 AM CDT) Specimen Narrative Performed At EXAMINATION:CT ANGIOGRAM CHEST W WO CONTRAST HM [facility] CLINICAL HISTORY:severe chest pain TECHNIQUE: Multiple [...] clinically indicated. 4.Other incidental findings as above. [facility]-[id number] Procedure Note Hm Interface, Radiology Results Incoming [...] indicated. 4. Other incidental findings as above. [facility]-[id number] Performing Organization Address [facility] Phone Number [email or web address] [address] [place] [address] * XR Chest 1 Vw Portable (04/20/2018 10:34 AM CDT) Specimen Narrative Performed At EXAMINATION:XR CHEST 1 VW PORTABLE [facility] CLINICAL HISTORY:chest pain COMPARISON:None IMPRESSION: 1.Prior sternotomy. Heart size is at the upper limits normal. 2.No infiltrates or effusions. 3.Vessels are not congested. [id number] Procedure Note Interface, Radiology Results Incoming - 04/20/2018 10:42 AM CDT EXAMINATION: XR CHEST 1 VW PORTABLE CLINICAL HISTORY: chest pain COMPARISON: None IMPRESSION: 1. Prior sternotomy. Heart size is at the upper limits normal. 2. No infiltrates or effusions. 3. Vessels are not congested. [facility]-[id number] Performing Organization Address [facility] Phone Number [email or web address] [address] [place] [address] * Prothrombin time with INR (04/20/2018 10:33 AM CDT) Prothrombin 14.1 11.5 - 14.5 sec [facility] INR 1.1 [place] Comment: DRUZE THE [facility] [employer] Normalized [facility] Ratio (INR) is a therapeutic HOSPITAL monitoring tool for patients who are stable on oral anticoagulant therapy. An INR of 2.0-3.0 is suggested for deep vein thrombosis/pulmonary embolism. Specimen Blood Performing Organization Address City/[facility] Phone Number [facility] [place] [address], [address] [place] [address] PATHOLOGY AND GENOMIC MEDICINE [place] DRUZE [address] [place] [address] * Anti Xa, unfractionated (04/20/2018 10:33 AM CDT) Anti Xa, <0.10 (L)Comment: Therapeutic 0.30 - 0.70 U/mL [place] unfractionated Range: 0.30 - 0.70 U/mL [facility] Specimen Blood Performing Organization Address [facility] Phone Number [facility] DEPARTMENT OF , [address] [place] [address] PATHOLOGY AND [facility] MEDICINE [place] DRUZE [address] [facility] [phone] * Type and screen (04/20/2018 10:31 AM CDT) ABO grouping B [place] [facility] Rh type POS [place] [facility] Antibody screen NEG [place] (gel) [facility] Specimen Blood Performing Organization Address [facility] Phone Number [facility] [address], [address] [place] [address] PATHOLOGY AND GENOMIC MEDICINE [place] DRUZE THE [address] [place] [address] * B natriuretic peptide (04/20/2018 10:31 AM CDT) BNP 507 (H) 0 - 100 pg/mL [place] [facility] Specimen Blood Performing Organization Address [facility] Phone Number [facility] [address], [address] [place] [address] PATHOLOGY AND [facility] MEDICINE [place] DR[place]ZE THE [address] [address] [place] [phone] * Hemoglobin A1c (04/09/2018 5:48 AM DESIGN COORDINATOR) Hemoglobin A1C 6.3 (H) 4.0 - 5.6 % [place] Comment: DRUZE THE HbA1c cutoffs for diagnosing [facility] diabetes: HOSPITAL 4.0% - 5.6%=normal 5.7% - 6.4%=increased risk for diabetes (prediabetes) >=6.5%=diabetes Goals for glycemic control (ADA 2016) < 7.0%Target for non adults with diabetes. More or less stringent targets may be appropriate for individual patients. <7.5% Target for Children and adolescents with type 1 diabetes. Specimen Blood Performing Organization Address City/State/Zipcode Phone Number [facility] [place] [address], [address] [place] [address] PATHOLOGY AND GENOMIC MEDICINE [place] [address] [facility] [address] * Echocardiogram complete w contrast and 3D if needed (04/07/2018 11:19 AM DESIGN COORDINATOR) Ao Root 4.35 cm HM [facility] Diameter [...] LV EF,BP 38.56 % HM [facility] Fermin [place],d A2C 8.73 cm HM [facility] [place],d A4C 9.49 cm HM [facility] [place],s A2C 7.91 cm HM [facility] [place],s A4C 8.86 cm HM [facility] LV,s 3.82 [...] [facility] 2D LVPW pct thck 12.37 % [facility]GO PLAX LVPW s PLAX 1.92 cm HM [facility] MV Decel slope 3.81 m/s2 HM [facility] Pred Exer Dur 7.99 HM [facility] R1 Pred METS R1 8.30 HM [facility] LA Vol MOD A4C 53.33 ml [facility] Velocity Ratio 0.51 m/s HM [facility] (V1/V2) EF 21.96 % HM [facility] E/A ratio 0.77 HM [facility] RA pressure 5.00 mmHg [facility] Specimen Narrative Performed At [facility] Left ventricular systolic function is moderately [...] estimate pulmonary artery pressure. Performing Organization Address [facility] [facility]/Zipcode Phone Number [employer] [address] [place] [address] * Thyroid stimulating hormone (04/07/2018 4:58 AM DESIGN COORDINATOR) TSH 2.317 0.270 - 4.200 uIU/mL [facility] Specimen Plasma specimen Performing Organization Address City/[facility]/[place] [address], [address] [place] [address] PATHOLOGY AND GENOMIC MEDICINE [facility] THE [address] [facility] [phone] * Folate level (04/07/2018 4:58 AM DESIGN COORDINATOR) Folate 9.0 4.8 - 24.2 ng/mL [facility] Specimen Serum Performing Organization Address City/[facility]/Zipcode Phone Number [facility] DEPARTMENT OF [address] [place] [address] PATHOLOGY AND GENOMIC MEDICINE [address] * Vitamin B12 level (04/07/2018 4:58 AM DESIGN COORDINATOR) Vitamin B12 445 211 - 946 pg/mL [place] Comment: DRUZE Significant overlap exists HOSPITAL between normal and deficiency states. However, most patients with deficiencies will have Serum B12 <200 pg/mL. Specimen Serum Performing Organization Address City/[facility]/Zipcode Phone Number [facility] DEPARTMENT OF [address] [place] [address] PATHOLOGY AND GENOMIC MEDICINE [place] DRUZE [address] [place] [address] HOSPITAL * MRI Brain Wo Contrast (04/06/2018 10:51 PM DESIGN COORDINATOR) Specimen Narrative Performed At RADIANT EXAMINATION: MRI [...] acute ischemia, acute hemorrhage, or fluid collections. [facility]-[id number] Procedure Note Interface, Radiology Results Incoming - 04/06/2018 10:56 PM DESIGN COORDINATOR EXAMINATION: MRI BRAIN WO CONTRAST COMPARISON: March [...] acute ischemia, acute hemorrhage, or fluid collections. [facility]-[id number] Performing Organization Address City/State/Zipcode Phone Number [facility] [address] [place] [address] * Alcohol level, blood (04/06/2018 6:50 PM DESIGN COORDINATOR) Alcohol 146.2 mg/dL [place] Comment: DRUZE THE [facility] Detected Legal Intoxication in [place]80 mg/dL (0.08%) - Whole Blood Toxic Concentration 200 mg/dL (0.2%) Potentially Fatal3 50 - 500 mg/dL (0.35 - 0.5%) Alcohol percent 0.146 % [place] DRUZE [facility] Specimen Plasma specimen Performing Organization Address City/[facility] Phone Number [facility] DEPARTMENT OF , [address] [place] [address] PATHOLOGY AND GENOMIC MEDICINE [place] DRUZE THE [address] [place] [phone] * Acetaminophen level (04/06/2018 6:50 PM DESIGN COORDINATOR) Acetaminophen <8.0 (L) 10.0 - 30.0 ug/mL [facility] DRUZE [facility] Specimen Plasma specimen Performing Organization Address [facility] Phone Number [facility] DEPARTMENT OF [address] [place] [address] PATHOLOGY AND GENOMIC MEDICINE [place] DRUZE THE [address] [place] [phone] * Salicylate level (04/06/2018 6:50 PM DESIGN COORDINATOR) Salicylate <0.4 (L) 3.0 - 30.0 mg/dL [place] DRU[facility] Specimen Plasma specimen Performing Organization Address [facility] Phone Number [facility] DEPARTMENT OF [address] [place] [address] PATHOLOGY AND GENOMIC MEDICINE [place] DRUZE THE [address] [place] [phone] * Urine drugs of abuse screen (04/06/2018 5:48 PM DESIGN COORDINATOR) Amphetamine Negative [place] screen, urine DRUZE [facility] Barbiturate Negative [place] screen, urine DRU[place] [facility] Benzodiazepine Positive (A) [place] screen, urine DRUZE [facility] Cannabinoid Negative [place] screen, urine DRU[facility] Cocaine screen, Negative [place] urine DRU[place] [facility] Methadone Negative [place] metabolite DRUZE THE (EDDP), urine [facility] Opiates screen, Negative [place] urine DR[place] [facility] Oxycodone Negative [place] screen, urine DRU[place] [facility] Phencyclidine Negative [place] screen, urine DRU[place] [facility] Tricyclic Negative [place] screen, urine Comment: DRUZE THE Drug screen [facility] concentration of detectability [facility] Amphetamines 1000 ng/mL Barbiturates 200 ng/mL Benzodiazepines [...] Urine Performing Organization Address City/State/Zipcode Phone Number [facility] [place] [address], [address] [place] [address] PATHOLOGY AND GENOMIC MEDICINE [place] DR[place] [address] [address] [facility] [phone] * CT Cervical Spine Wo Contrast (04/06/2018 5:45 PM DESIGN COORDINATOR) Specimen Narrative Performed At Study:CT CERVICAL SPINE [...] chest is unremarkable. IMPRESSION: No acute abnormality. [id number] Procedure Note Hm Interface, Radiology Results Incoming - 04/06/2018 6:01 PM DESIGN COORDINATOR Study:CT CERVICAL SPINE WO CONTRAST History:fall head [...] chest is unremarkable. IMPRESSION: No acute abnormality. [id number] Performing Organization Address City/State/Zipcode Phone Number [facility] [address] [place] [address] * CT Head Wo Contrast (04/06/2018 5:45 PM DESIGN COORDINATOR) Specimen Narrative Performed At EXAMINATION:CT HEAD WO CONTRAST [facility] CLINICAL HISTORY:fallhead injury COMPARISON:None. TECHNIQUE: Noncontrast head [...] No CT evidence of acute intracranial abnormality. [id number] Procedure Note [facility], Radiology Results Incoming - 04/06/2018 5:54 PM DESIGN COORDINATOR EXAMINATION: CT HEAD WO CONTRAST CLINICAL HISTORY: [...] No CT evidence of acute intracranial abnormality. [id number] Performing Organization Address City/State/Zipcode Phone Number [facility] [address] [place] [address] after 09/12/2017 Advance Directives Patient has advance care planning documents, and code status on file. For more i nformation, please contact: [facility] [employer] [address] [place] [address] Date Inactivated Comments Code Status Date Activated 04/23/2018 9:33 PM Full Code 04/20/2018 1:08 PM Code Status decision reached by: Patient
--- OUTSIDE RECORDS SUMMARY | 2018-09-13 16:37 | XMS REPORT | Clinical Summary ---
Author Author A[facility]LA[facility] Address Unknown Phone Unavailable Care Team Providers Care [place] [facility]er Name Role Phone PCP Unavailable Allergies Not [...] Not on file Results Not on fileafter 09/12/2017 Insurance Payer Benefit Subscriber ID Type Phone Address Plan / Group [employer] - MGD CARE [employer] xxxxxxxxxxx HMO/POS HMO/POS/OP EN ACCESS
--- OUTSIDE RECORDS SUMMARY | 2018-09-13 16:40 | XMS REPORT | Continuity of Care Document ---
Author Author [employer] Organization [employer] Address Unknown Phone Unavailable Care Team Providers Care Gem Expert Name Role Phone CrimeReports Information [place] Unavailable Unavailable Problems Problem Status Onset Date Classification Date Reported Comments Source Weakness 01/06/2018 05/06/2018 [facility] Encounter for other administrative examinations 10/19/2017 03/20/2018 [facility] FOLLOW UP WITH MONITOR 2 WKS Active 10/18/2017 [facility] CODE STROKE POSS Active 10/16/2017 [facility] ATAXIA, RIGHT SIDED WEAKNESS Active 10/16/2017 [facility] 2 WKS FOLLOW UP Active 08/19/2017 [facility] I50.9, I10 Active 06/03/2017 [facility] Hypertensive heart disease with heart failure 05/28/2017 08/26/2017 [facility] I50.9 Active 05/20/2017 [facility] Atherosclerosis of [place] arteries of extremities with intermittent claudication, bilateral legs 04/30/2017 07/31/2017 [facility] Other complications of procedures, not elsewhere classified, initial encounter 04/20/2017 07/21/2017 [facility] I70.213 - ATHSCL [place] ARTERIES OF EXTR Active 04/13/2017 [facility] 6 MONTHS FOLLOW UP Active 04/13/2017 [facility] R42 R06.02 I10 R60.9 Active 04/05/2017 [facility] FOLLOW UP 2 WKS Active 04/05/2017 [facility]PITAL FOLLOW UP Active 04/02/2017 [facility] FOLLOW UP Active 04/01/2017 [facility] Non-ST elevation myocardial infarction 03/23/2017 06/13/2017 [facility] 1 WK F/U Active 03/18/2017 [facility]ITAL F/U Active 03/09/2017 [facility] Atherosclerotic heart disease of [place] coronary artery with unspecified angina pectoris 02/26/2017 05/28/2017 [facility] CORONARY ARTERY DISEASE Active 02/19/2017 [facility] CP Active 02/15/2017 [facility] PNEUMONIA, CHEST PAIN Active 02/15/2017 [facility] Pneumonia, unspecified organism 05/28/2017 [facility] Acute on chronic diastolic heart failure 05/28/2017 [facility] Type 2 diabetes mellitus without complications 05/06/2018 [facility] Hyperlipidemia, unspecified 05/06/2018 [facility] Morbid obesity due to excess calories 05/28/2017 [facility] Hypomagnesemia 05/28/2017 [facility] Body mass index 29.0-29.9, adult 05/28/2017 [facility] Diabetes Resolved Problem 05/28/2018 [facility] [place] Hypercholesteremia Resolved Problem 05/28/2018 [facility] [place], OPISebastián [facility] Hypertension Resolved Problem 05/28/2018 [facility] [place] Acute systolic heart failure 06/13/2017 [facility] Cardiogenic shock 06/13/2017 [facility] Respiratory failure, unspecified with hypercapnia 06/13/2017 [facility] Encephalopathy, unspecified 06/13/2017 [facility] Ventricular fibrillation 06/13/2017 [facility] Ventricular tachycardia 06/13/2017 [facility] Acute posthemorrhagic anemia 06/13/2017 [facility] Acidosis 06/13/2017 [facility] Other specified coagulation defects 06/13/2017 [facility] Stenosis of other vascular prosthetic devices, implants and grafts, initial encounter 06/13/2017 [facility] Intraoperative hemorrhage and hematoma of a circulatory system organ or structure complicating a cardiac bypass 06/13/2017 [facility] Thrombocytopenia, unspecified 06/13/2017 [facility] Ischemic cardiomyopathy 06/13/2017 [facility] Presence of coronary angioplasty implant and graft 06/13/2017 [facility] use of oral hypoglycemic drugs 06/13/2017 [facility] Allergy status to other antibiotic agents status 06/13/2017 [facility] Surgical operation with implant of artificial internal device as the cause of abnormal reaction of the patient, or of later complication, without mention of misadventure at the time of the procedure 06/13/2017 [facility] Nonrheumatic aortic stenosis 06/13/2017 [facility] Postprocedural hypotension 06/13/2017 [facility] Physical restraint status 06/13/2017 [facility] Other specified peripheral vascular diseases 06/13/2017 [facility] Restlessness and agitation 06/13/2017 [facility] Surgical operation with anastomosis, bypass or graft as the cause of abnormal reaction of the patient, or of later complication, without mention of misadventure at the time of the procedure 06/13/2017 [facility] Personal history of urinary calculi 06/13/2017 [facility] Encounter for immunization 06/13/2017 [facility] Cellulitis, unspecified 07/21/2017 [facility] Cutaneous abscess of left lower limb 07/21/2017 [facility] Pain in left leg 07/21/2017 [facility] OPID [facility] Localized edema 07/21/2017 [facility] Essential hypertension 07/21/2017 [facility] hypercholesterolemia, unspecified 06/23/2017 [facility] Body mass index 25.0-25.9, adult 06/23/2017 [facility] Presence of aortocoronary bypass graft 06/23/2017 [facility] Dizziness and giddiness 07/12/2017 [facility] Shortness of breath 07/12/2017 [facility] Edema, unspecified 07/12/2017 [facility] Left anterior fascicular block 08/26/2017 [facility] Abnormal electrocardiogram [ECG] [EKG] 08/26/2017 [facility] Presence of cardiac pacemaker 08/26/2017 [facility] Other specified postprocedural states 07/31/2017 [facility] Atherosclerotic heart disease of [place] coronary artery without angina pectoris 05/06/2018 [facility] OPID [facility] Hypertensive heart and chronic kidney disease with heart failure and stage 1 through stage 4 chronic kidney disease, or unspecified chronic kidney disease 05/06/2018 [facility] Personal history of transient ischemic attack , and cerebral infarction without residual deficits 05/06/2018 [facility] Chronic systolic heart failure 05/06/2018 [facility] Chronic kidney disease, stage 3 05/06/2018 [facility] Type 2 diabetes mellitus with diabetic chronic kidney disease 05/06/2018 [facility] Obesity, unspecified 05/06/2018 [facility] Ataxia, unspecified 05/06/2018 [facility] Atherosclerosis of aorta 05/06/2018 [facility] Degenerative disease of nervous system, unspecified 05/06/2018 [facility] Cerebral cysts 05/06/2018 [facility] use of antithrombotics/antiplatelets 05/06/2018 [facility] terminal system operator use of insulin 05/06/2018 [facility] use of aspirin 05/06/2018 [facility] PNEUMONIA, UNSPECIFIED ORGANISM Active [facility] ATAXIA, UNSPECIFIED Active [facility] WEAKNESS Active [facility] Medications Medication Details Route Status Patient [...] Expires in days from Date Inactive 10/17/2017 [facility] Dextrose 50% Syringe 12.5 gm, 25 mL, Route: IVP, Drug Form: INJ, Dosing Weight 100.909, kg, PRN, PRN Blood Glucose Results, Start date: 10/17/17 10:45:00 CDT, Duration: 30 day, Stop date: 11/16/17 10:44:00 CDT Inactive 10/17/2017 [facility] Glucagon 1 mg, Route: IM, Drug form: PDR/INJ, PRN, Dosing Weight 100.909, kg, PRN Blood Glucose Results, Start date: 10/17/17 10:45:00 CDT, Duration: 30 day, Stop date: 11/16/17 10:44:00 CDT Inactive 10/17/2017 [facility] potassium phosphate-sodium phosphate 250 mg-45 mg-298 mg oral tablet 250 mg, 1 tab, Route: PO, Drug Form: TAB, ONCE, Start date: 10/17/17 10:31:00 CDT, Stop date: 10/17/17 10:31:00 CDTNotes: (Same as: K-Phos Neutral, Phospha 250 Neutral) Inactive 10/17/2017 [facility] K-Phos Original 250 mg, Route: PO, Drug form: TAB, ONCE, Dosing Weight 100.909, kg, Start date: 10/17/17 10:25:00 CDT, Stop date: 10/17/17 10:25:00 CDT Inactive 10/17/2017 [facility] MAGNESIUM GLUCONATE 500 mg, 1 tab, Route: PO, Drug form: TAB, ONCE, Dosing Weight 100.909, kg, Start date: 10/17/17 10:25:00 CDT, Stop date: 10/17/17 10:25:00 CDTNotes: (Same as: [place]) Magnesium gluconate 500mg=27mg elemental magnesium Dose= mg magnesium gluconate(___mg elemental magnesium) Inactive 10/17/2017 [facility] Aspirin 81 MG Enteric Coated Tablet 81 mg, 1 tab, Route: PO, Drug form: ECTAB, Daily, Dosing Weight 100.909, kg, Start date: 10/17/17 9:00:00 CDT, Duration: 30 day, Stop date: 11/15/17 9:00:00 CDTNotes: Do not crush or chew. (Same As: Ecotrin) Inactive 10/17/2017 [facility] Plavix 75 mg, 1 tab, Route: PO, Drug form: TAB, Daily, Dosing Weight 100.909, kg, Start date: 10/17/17 9:00:00 CDT, Duration: 30 day, Stop date: 11/15/17 9:00:00 CDTNotes: (Same As: Plavix) No Longer Active 10/17/2017 [facility] clopidogrel 75 mg, 1 tab, Route: PO, Drug form: TAB, Daily, Dosing Weight 100.909, kg, Start date: 10/17/17 9:00:00 CDT, Duration: 30 day, Stop date: 11/15/17 9:00:00 CDTNotes: (Same As: Plavix) Inactive 10/17/2017 [facility] Vitamin B12 1,000 microgram, 1 mL, Route: IM, Drug form: INJ, ONCE, Dosing Weight 100.909, kg, Start date: 10/17/17 8:05:00 CDT, Stop date: 10/17/17 8:05:00 CDTNotes: (Same As: Vitamin B12) Inactive 10/17/2017 [facility] pantoprazole 40 mg, 1 tab, Route: PO, Drug form: ECTAB, Before Breakfast, Dosing Weight 100.909, kg, Start date: 10/17/17 7:30:00 CDT, Duration: 30 day, Stop date: 11/15/17 7:30:00 CDTNotes: Tablet should not be chewed or crushed. (Same as: Protonix) Inactive 10/17/2017 [facility] atorvastatin 40 mg, 1 tab, Route: PO, Drug form: TAB, Bedtime, Dosing Weight 100.909, kg, Start date: 10/16/17 21:00:00 CDT, Duration: 30 day, Stop date: 11/14/17 21:00:00 CDTNotes: (Same as: Lipitor) No Longer Active 10/17/2017 [facility] 24 HR Metoprolol Tartrate 25 MG Extended Release Tablet [Toprol] 25 mg, 1 tab, Route: PO, Drug form: ERTAB, Daily, Start date: 10/16/17 9:00:00 CDT, Duration: 30 day, Stop date: 11/14/17 9:00:00 CDTNotes: (Same as: Toprol XL) Do Not Crush Inactive 10/16/2017 [facility] Corlanor 2.5 mg, 0.5 tab, Route: PO, Drug form: TAB, BID, Dosing Weight 100.909, kg, Start date: 10/16/17 9:00:00 CDT, Duration: 30 day, Stop date: 11/14/17 17:00:00 CDTNotes: Hold and contact prescriber if HR Inactive 10/16/2017 [facility] Finasteride 5 mg, 1 tab, Route: PO, Drug form: TAB, Daily, Dosing Weight 100.909, kg, Start date: 10/16/17 9:00:00 CDT, Duration: 30 day, Stop date: 11/14/17 9:00:00 CDTNotes: (Same as: Proscar) "Do Not Crush" Women of childbearing age should not touch or handle broken tablets No Longer Active 10/16/2017 [facility] Acetaminophen 325 MG / Hydrocodone Bitartrate 5 MG Oral Tablet [Oblong 5/325] 1 tab, Route: PO, Drug Form: TAB, Dosing Weight 100.909, kg, Q6H, PRN Pain Score 1-3, Start date: 10/16/17 8:39:00 CDT, Duration: 30 day, Stop date: 11/15/17 8:38:00 CDTNotes: (Same as: Oblong 325/5) Do not exceed 4gm/day of acetaminophen. No Longer Active 10/16/2017 [facility] pantoprazole 40 mg, PO, Daily, # 30 tab, 0 Refill(s) Active 10/16/2017 [facility] Metformin hydrochloride 500 MG Oral Tablet 500 mg=1 tab, PO, BID, 0 Refill(s) Active 10/16/2017 [facility] atorvastatin 40 mg oral tablet 40 mg=1 tab, PO, Bedtime, # 30 tab, 0 Refill(s) Active 10/16/2017 [facility] Furosemide 20 mg, PO, Q12H, 0 Refill(s) No Longer Active 10/16/2017 [facility] clopidogrel 75 mg, PO, Daily, 0 Refill(s) Active 10/16/2017 [facility] Finasteride 5 mg=1 tab, PO, Daily, # 30 tab, 0 Refill(s) Active 10/16/2017 [facility] NS 500 mL 500 mL, Rate: 75 ml/hr, Infuse over: 6.7 hr, Route: IV, Dosing Weight 100.909 kg, Total Volume: 500, Start date: 10/16/17 5:05:00 CDT, Duration: 1 doses or times, Stop date: 10/16/17 11:46:00 CDT, 2.33, m2 Inactive 10/16/2017 [facility] NS 1,000 mL 1,000 mL, Rate: 150 ml/hr, Infuse over: 6.7 hr, Route: IV, Dosing Weight 100.909 kg, Total Volume: 1,000, Start date: 10/16/17 4:56:00 CDT, Duration: 1 doses or times, Stop date: 10/16/17 11:37:00 CDT, 2.33, m2 Inactive 10/16/2017 [facility] Acetaminophen 300 MG / Codeine Phosphate 60 MG Oral Tablet [Tylenol with Codeine #4] 1 tab, PO, BID, PRN Pain, # 32 tab, 0 Refill(s) Active 10/16/2017 [facility] Magnesium Oxide 400 mg, PO, Daily, 0 Refill(s) No Longer Active 10/16/2017 [facility] Aspirin 324 mg, 4 tab, Route: CHEW, Drug form: CHEWTAB, ONCE, Dosing Weight 113.636, kg, Priority: STAT, Start date: 10/16/17 2:00:00 CDT, Stop date: 10/16/17 2:00:00 CDTNotes: Take with food. Inactive 10/16/2017 [facility] Plavix 75 mg, 1 tab, Route: PO, Drug form: TAB, ONCE, Dosing Weight 113.636, kg, Priority: STAT, Start date: 10/16/17 2:00:00 CDT, Stop date: 10/16/17 2:00:00 CDTNotes: (Same As: Plavix) Inactive 10/16/2017 [facility] Saline Flush 0.9% 10 mL, Route: IVP, Drug Form: INJ, Dosing Weight 115.455, kg, PRN, PRN Line Flush, Start date: 10/16/17 0:59:00 CDT, Duration: 30 day, Stop date: 11/15/17 0:58:00 CDTNotes: Same as: BD Posiflush Sterile No Longer Active 10/16/2017 [facility] multivitamin Daily Active 08/31/2017 [facility] Glucosamine Chondroitin PO, Daily Active 08/31/2017 [facility] ivabradine 5 MG Oral Tablet [Corlanor] 2.5 mg=0.5 tab, PO, BID No Longer Active 08/31/2017 [facility] 24 HR Metoprolol Tartrate 50 MG Extended Release Tablet [Toprol] 50 mg=1 tab, PO, Daily, # 30 tab Active 06/03/2017 [facility] sacubitril 49 MG / valsartan 51 MG Oral Tablet [Entresto] 1 tab, PO, BID, # 56 tab Active 06/03/2017 [facility] atorvastatin 40 MG Oral Tablet [Lipitor] 40 mg=1 tab, PO, Bedtime, # 30 tab, 3 Refill(s), Pharmacy: [facility] [id number] Active 05/20/2017 [facility] Metformin hydrochloride 500 MG Oral Tablet 500 mg=1 tab, PO, BID-Meals, # 60 tab, 1 Refill(s), Pharmacy: [facility] [id number] Active 05/20/2017 [facility] 24 HR Metoprolol Tartrate 25 MG Extended Release Tablet [Toprol] 25 mg=1 tab, PO, Daily, # 30 tab, 3 Refill(s), Pharmacy: [facility] [id number] No Longer Active 05/20/2017 [facility] sacubitril 24 MG / valsartan 26 MG Oral Tablet [Entresto] 1 tab, PO, BID, # 60 tab, 3 Refill(s), Pharmacy: [facility] [id number] No Longer Active 05/20/2017 [facility] Furosemide 20 MG Oral Tablet [Lasix] 20 mg=1 tab, PO, Q12H, # 30 tab, 1 Refill(s), Pharmacy: [facility] [id number] Active 04/05/2017 [facility] finasteride 5 mg oral tablet 5 mg=1 tab, PO, Daily, # 30 tab, 1 Refill(s), Pharmacy: [facility] [id number] Active 04/05/2017 [facility] tramadol hydrochloride 50 MG Oral Tablet 50 mg=1 tab, PO, Q6H, PRN Pain, X 30 day, # 60 tab, 1 Refill(s), other No Longer Active 04/05/2017 [facility] Acetaminophen 300 MG / Codeine Phosphate 30 MG Oral Tablet [Tylenol with Codeine #3] 1 - 2 tab, PO, Q6H, PRN Pain, X 14 day, # 30 tab, 0 Refill(s), other No Longer Active 04/05/2017 [facility] Amoxicillin 875 MG / Clavulanate 125 MG Oral Tablet [Augmentin 875-mg] 875 mg=1 tab, PO, BID, X 7 day, # 14 tab, 0 Refill(s), Pharmacy: [facility] [id number] No Longer Active 04/05/2017 [facility] Metformin hydrochloride 500 MG Oral Tablet 500 mg=1 tab, PO, BID-Before Meals, # 30 tab, 1 Refill(s) Active 03/07/2017 [facility] Acetaminophen 300 MG / Codeine Phosphate 30 MG Oral Tablet [Tylenol with Codeine #3] See Instructions, 1-2 tab PO Q12hrs for pain, # 30 tab, 0 Refill(s) No Longer Active 03/07/2017 [facility] pantoprazole 40 mg oral enteric coated tablet 40 mg=1 tab, PO, Before Breakfast, # 30 tab, 2 Refill(s) Active 03/07/2017 [facility] clopidogrel 75 mg oral tablet 75 mg=1 tab, PO, Daily, # 30 tab, 2 Refill(s) Active 03/07/2017 [facility] metoprolol tartrate 25 mg oral tablet 12.5 mg=0.5 tab, PO, Q12H, # 30 tab, 2 Refill(s) No Longer Active 03/07/2017 [facility] Insulin Glargine 100 UNT/ML Injectable Solution 20 unit, SUB-Q, Before Dinner, # 10 mL, 2 Refill(s) Inactive 03/07/2017 [facility] Furosemide 20 MG Oral Tablet 20 mg=1 tab, PO, Daily, # 30 tab, 2 Refill(s) No Longer Active 03/07/2017 [facility] Morphine 2 mg, 0.5 mL, Route: IVP, Drug form: INJ, ONCE, Dosing Weight 100.909, kg, Start date: 03/06/17 19:56:00 ARCHITECTURAL SALES CONSULTANT, Stop date: 03/06/17 19:56:00 CSTNotes: (Same as:MORPhine Sulfate) Inactive 03/07/2017 [facility] Tramadol 50 mg, 1 tab, Route: PO, Drug form: TAB, ONCE, Dosing Weight 100.909, kg, Priority: NOW, Start date: 03/05/17 22:34:00 ARCHITECTURAL SALES CONSULTANT, Stop date: 03/05/17 22:34:00 CSTNotes: Not to exceed 400mg/day. (Same As: U ltram) Inactive 03/06/2017 [facility] Insulin Glargine 20 unit, 0.2 mL, Route: SUB-Q, Drug form: SOLN, Before Dinner, Dosing Weight 100.909, kg, Start date: 03/05/17 16:30:00 ARCHITECTURAL SALES CONSULTANT, Duration: 30 day, Stop date: 04/03/17 16:30:00 CSTNotes: (Same as: Lantus) Do not hold insulin without contacting prescriber WASTE: F/P - Black; E - Municipal Trash Bin "single patient use only" No Longer Active 03/05/2017 [facility] Insulin Lispro 4 unit, 0.04 mL, Route: SUB-Q, Drug form: SOLN, TID-Before Meals, Dosing Weight 100.909, kg, PRN Blood Glucose Results, Start date: 03/04/17 15:15:00 ARCHITECTURAL SALES CONSULTANT, Duration: 30 day, Stop date: 04/03/17 15:14: 00 CSTNotes: (Same as: Humalog ) Roll in palms of hands gently; Do not shake `vigorously. "Single Patient Use Only " WASTE: F/P - Black; E - Municipal Trash Bin Stable for 28 days at room temperature. Expires in days from Date No Longer Active 03/04/2017 [facility] Insulin Glargine 15 unit, 0.15 mL, Route: SUB-Q, Drug form: SOLN, Before Dinner, Dosing Weight 100.909, kg, Start date: 03/03/17 16:30:00 ARCHITECTURAL SALES CONSULTANT, Stop date: 04/01/17 16:30:00 CSTNotes: (Same as: Lantus) Do not hold insu connie without contacting prescriber WASTE: F/P - Black; E - Municipal Trash Bin "single patient use only" No Longer Active 03/03/2017 [facility] Furosemide 20 MG Oral Tablet [Lasix] 20 mg, 1 tab, Route: PO, Drug form: TAB, Daily, Dosing Weight 100.909, kg, Start date: 03/03/17 9:52:00 ARCHITECTURAL SALES CONSULTANT, Duration: 30 day, Stop date: 04/02/17 9:00:00 CSTNotes: (Same as: Lasix) May cause GI upset. Give with food or milk. No Longer Active 03/03/2017 [facility] Furosemide 40 MG Oral Tablet [Lasix] 10 mg, 0.5 tab, Route: PO, Drug form: TAB, Daily, Dosing Weight 100.909, kg, Start date: 03/03/17 9:00:00 ARCHITECTURAL SALES CONSULTANT, Duration: 30 day, Stop date: 04/01/17 9:00:00 CSTNotes: (Same as: Lasix) 10 mg=1/2 x 20 mg TAB May cause GI upset. Give with food or milk. Inactive 03/03/2017 [facility] Miralax 17 gm, 1 pkt, Route: PO, Drug form: PWDR, Daily, Dosing Weight 100.909, kg, Start date: 03/03/17 9:00:00 ARCHITECTURAL SALES CONSULTANT, Duration: 30 day, Stop date: 04/01/17 9:00:00 CSTNotes: Dissolve in 8 oz of water or juice. (Same as: Miralax) No Longer Active 03/03/2017 [facility] Seroquel 25 mg, 1 tab, Route: PO, Drug form: TAB, Bedtime, Dosing Weight 100.909, kg, Start date: 03/02/17 21:00:00 ARCHITECTURAL SALES CONSULTANT, Duration: 30 day, Stop date: 03/31/17 21:00:00 CSTNotes: (Same as: SEROquel) No Longer Active 03/03/2017 [facility] Ferrlecit 125 mg, 10 mL, Route: IVPB, Daily, Dosing Weight 100.909, kg, Start date: 03/02/17 9:45:00 ARCHITECTURAL SALES CONSULTANT, Duration: 30 day, Stop date: 04/01/17 9:00:00 CSTNotes: (sodium ferric gluconate complex (elemental iron) 62.5 mg/5 ml INJ) "Limited stability. Use immediately after admixture" (Same as: Ferrlecit) MEDICATION WASTE Product Size: 62.5 mg Product Wasted: __0_ mg No Longer Active 03/02/2017 [facility] Lasix 20 mg, 2 mL, Route: IVP, Drug form: INJ, ONCE, Dosing Weight 100.909, kg, Start date: 03/02/17 9:45:00 ARCHITECTURAL SALES CONSULTANT, Stop date: 03/02/17 9:45:00 CSTNotes: (Same as: Lasix) Inactive 03/02/2017 [facility] clopidogrel 75 mg, 1 tab, Route: PO, Drug form: TAB, Daily, Dosing Weight 100.909, kg, Start date: 03/02/17 9:00:00 ARCHITECTURAL SALES CONSULTANT, Duration: 30 day, Stop date: 03/31/17 9:00:00 CSTNotes: (Same As: Plavix) No Longer Active 03/02/2017 [facility] pantoprazole 40 mg, 1 tab, Route: PO, Drug form: ECTAB, Before Breakfast, Dosing Weight 100.909, kg, Start date: 03/02/17 7:30:00 ARCHITECTURAL SALES CONSULTANT, Duration: 30 day, Stop date: 03/31/17 7:30:00 CSTNotes: Tablet should not be chewed or crushed. (Same as: Protonix) No Longer Active 03/02/2017 [facility] Insulin Lispro 4 unit, 0.04 mL, Route: SUB-Q, Drug form: SOLN, Bedtime, Dosing Weight 100.909, kg, PRN Blood Glucose Results, Start date: 03/01/17 23:39:00 ARCHITECTURAL SALES CONSULTANT, Duration: 30 day, Stop date: 03/31/17 23:38:00 CSTNotes: (Same as: Humalog ) Roll in palms of hands gently; Do not shake `vigorously. "Single Patient Use Only " WASTE: F/P - Black; E - Municipal Trash Bin Stable for 28 days at room temperature. Expires in days from Date No Longer Active 03/02/2017 [facility] metoprolol tartrate 12.5 mg, 0.5 tab, Route: PO, Drug form: TAB, Q12H, Dosing Weight 100.909, kg, Start date: 03/01/17 21:00:00 ARCHITECTURAL SALES CONSULTANT, Duration: 30 day, Stop date: 03/31/17 9:00:00 CSTNotes: (Same as: Lopressor) 12.5 mg=1/2 X 25 mg TAB No Longer Active 03/02/2017 [facility] Acetaminophen 325 MG / Hydrocodone Bitartrate 5 MG Oral Tablet [Oblong 5/325] 1 tab, Route: PO, Drug Form: TAB, Dosing Weight 100.909, kg, Q4H, PRN Pain Score 1-3, Start date: 03/01/17 16:08:00 ARCHITECTURAL SALES CONSULTANT, Duration: 30 day, Stop date: 03/31/17 16:07:00 CSTNotes: (Same as: Oblong 325/5) Do not exceed 4gm/day of acetaminophen. No Longer Active 03/01/2017 [facility] Seroquel 25 mg, 1 tab, Route: PO, Drug form: TAB, BID, Dosing Weight 100.909, kg, Start date: 02/28/17 17:00:00 ARCHITECTURAL SALES CONSULTANT, Stop date: 03/30/17 9:00:00 CSTNotes: (Same as: SEROquel) No Longer Active 02/28/2017 [facility] Sodium Chloride 0.9% IV 1,000 mL + M.V.I.-12 10 mL Daily + folic acid IV 1 mg Daily + thiamine IV 1 1,000 mL, Rate: 100 ml/hr, Infuse over: 10.1 hr, Route: IV, Dosing Weight 100.909 kg, Total Volume: 1,011.2, Start date: 02/28/17 12:59:00 ARCHITECTURAL SALES CONSULTANT, Duration: 3 day, Stop date: 03/03/17 12:58:00 ARCHITECTURAL SALES CONSULTANT, 2.33, m2 No Longer Active 02/28/2017 [facility] Seroquel 25 mg, 1 tab, Route: PO, Drug form: TAB, ONCE, Dosing Weight 100.909, kg, Priority: STAT, Start date: 02/28/17 11:57:00 ARCHITECTURAL SALES CONSULTANT, Stop date: 02/28/17 11:57:00 CSTNotes: (Same as: SEROquel) Inactive 02/28/2017 [facility] Lasix 20 mg, 2 mL, Route: IVP, Drug form: INJ, BID, Dosing Weight 100.909, kg, Start date: 02/27/17 13:20:00 ARCHITECTURAL SALES CONSULTANT, Duration: 30 day, Stop date: 03/29/17 9:00:00 CSTNotes: (Same as: Lasix) No Longer Active 02/27/2017 [facility] Seroquel 25 mg, 1 tab, Route: PO, Drug form: TAB, BID, Dosing Weight 100.909, kg, Priority: NOW, Start date: 02/27/17 10:41:00 ARCHITECTURAL SALES CONSULTANT, Duration: 30 day, Stop date: 03/29/17 9:00:00 CSTNotes: (Same as: SEROquel) No Longer Active 02/27/2017 [facility] Insulin Glargine 5 unit, 0.05 mL, Route: SUB-Q, Drug form: SOLN, Daily, Dosing Weight 100.909, kg, Start date: 02/27/17 9:00:00 ARCHITECTURAL SALES CONSULTANT, Duration: 30 day, Stop date: 03/28/17 9:00:00 CSTNotes: Same as: Lantus) Do not hold insulin without contacting prescriber WASTE: F/P - Black; E - Municipal Trash Bin No Longer Active 02/27/2017 [facility] Acetaminophen 10 MG/ML Injectable Solution 1,000 mg, 100 mL, Route: IV, Drug form: INJ, ONCE, Dosing Weight 100.909, kg, For > or=50 kg, Start date: 02/27/17 3:06:00 ARCHITECTURAL SALES CONSULTANT, Stop date: 02/27/17 3:06:00 CSTNotes: Infuse over 15 minutes Do not exceed 4gm/day of acetaminophen MEDICATION WASTE Product Size: 1000 mg Product Wasted: ___ mg Inactive 02/27/2017 [facility] Haldol 3 mg, 0.6 mL, Route: IV, Drug form: INJ, ONCE, Dosing Weight 100.909, kg, Priority: STAT, Start date: 02/26/17 22:41:00 ARCHITECTURAL SALES CONSULTANT, Stop date: 02/26/17 22:41:00 CSTNotes: (Same as: Haldol) Inactive 02/27/2017 [facility] heparin 5,000 unit, 1 mL, Route: SUB-Q, Drug form: INJ, Q8H-06, Dosing Weight 100.909, kg, Start date: 02/26/17 22:00:00 ARCHITECTURAL SALES CONSULTANT, Duration: 30 day, Stop date: 03/28/17 14:00:00 CSTNotes: porcine heparin No Longer Active 02/27/2017 [facility] Insulin Glargine 8 unit, 0.08 mL, Route: SUB-Q, Drug form: SOLN, Before Dinner, Dosing Weight 100.909, kg, Start date: 02/26/17 18:15:00 ARCHITECTURAL SALES CONSULTANT, Stop date: 03/28/17 16:30:00 CSTNotes: (Same as: Lantus) Do not hold insul in without contacting prescriber WASTE: F/P - Black; E - Municipal Trash Bin "single patient use only" No Longer Active 02/27/2017 [facility] Insulin Lispro 4 unit, 0.04 mL, Route: SUB-Q, Drug form: SOLN, TID-Before Meals, Dosing Weight 100.909, kg, PRN Blood Glucose Results, Start date: 02/26/17 17:39: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 "Single Patient Use Only " WASTE: F/P - Black; E - Municipal Trash Bin Stable for 28 days at room temperature. Expires in days from Date No Longer Active 02/26/2017 [facility] Dextrose 50% Syringe 25 gm, 50 mL, Route: IVP, Drug Form: INJ, Dosing Weight 100.909, kg, PRN, PRN Blood Glucose Results, Start date: 02/26/17 17:39:00 ARCHITECTURAL SALES CONSULTANT, Duration: 30 day, Stop date: 03/28/17 17:38:00 ARCHITECTURAL SALES CONSULTANT No Longer Active 02/26/2017 [facility] Glucagon 1 mg, Route: IM, Drug form: PDR/INJ, PRN, Dosing Weight 100.909, kg, PRN Blood Glucose Results, Start date: 02/26/17 17:39:00 ARCHITECTURAL SALES CONSULTANT, Duration: 30 day, Stop date: 03/28/17 17:38:00 ARCHITECTURAL SALES CONSULTANT No Longer Active 02/26/2017 [facility] Dexmedetomidine 400 microgram, 4 mL, Rate: Titrate, Start Dose: 0.2 microgram/kg/hr, Titration: 0.1 microgram/kg/hr every 30 min, Goal(s): comfort, Max Dose: 0.5 microgram/kg/hr, Route: IV, Dosing Weight 100.909 kg, Total Volume: 100, Start date: 02/26/17 16:28:00 CS... No Longer Active 02/26/2017 [facility] Haldol 2 mg, Route: IV, ONCE, Dosing Weight 100.909, kg, Start date: 02/26/17 15:58:00 ARCHITECTURAL SALES CONSULTANT, Stop date: 02/26/17 15:58:00 ARCHITECTURAL SALES CONSULTANT Inactive 02/26/2017 [facility] Versed 2 mg, Route: IVP, ONCE, Dosing Weight 100.909, kg, Start date: 02/26/17 15:10:00 ARCHITECTURAL SALES CONSULTANT, Stop date: 02/26/17 15:10:00 ARCHITECTURAL SALES CONSULTANT Inactive 02/26/2017 [facility] Midazolam 2 mg, Route: IVP, ONCE, Dosing Weight 100.909, kg, Start date: 02/26/17 7:55:00 ARCHITECTURAL SALES CONSULTANT, Stop date: 02/26/17 7:55:00 ARCHITECTURAL SALES CONSULTANT Inactive 02/26/2017 [facility] heparin additive 25,000 unit [400 unit/hr] + Premix Diluent Sodium Chloride 0.45% 500 mL 500 mL, Rate: 8 ml/hr, Infuse over: 62.5 hr, Route: IV, Dosing Weight 100.909 kg, Total Volume: 500 mL, Start date: 02/25/17 21:10:00 ARCHITECTURAL SALES CONSULTANT, Duration: 30 day, Stop date: 03/27/17 21:09:00 ARCHITECTURAL SALES CONSULTANT, 2.33, [id number]: Total Concentration=50 unit/ ml Total psfswe=468 ml Send Med Request 2 hours prior to next bag No Longer Active 02/26/2017 [facility] Famotidine 20 mg, 2 mL, Route: IVP, Drug form: INJ, Q12H, Dosing Weight 100.909, kg, Start date: 02/25/17 21:00:00 ARCHITECTURAL SALES CONSULTANT, Duration: 30 day, Stop date: 03/27/17 9:00:00 CSTNotes: (Same as: Pepcid) Can be dilute in 5-10cc NS IVP: Slow IV push over at least 2 minutes. No Longer Active 02/26/2017 [facility] docusate sodium 100 mg oral capsule 100 mg, 1 cap, Route: PO, Drug form: CAP, BID, Dosing Weight 100.909, kg, Start date: 02/25/17 17:00:00 ARCHITECTURAL SALES CONSULTANT, Stop date: 03/27/17 9:00:00 CSTNotes: (Same as: Colace) (Do Not Crush) No Longer Active 02/25/2017 [facility] Aspirin 81 MG Chewable Tablet 81 mg, 1 tab, Route: PO, Drug form: CHEWTAB, Daily, Dosing Weight 100.909, kg, Start date: 02/25/17 13:00:00 ARCHITECTURAL SALES CONSULTANT, Duration: 30 day, Stop date: 03/27/17 9:00:00 CSTNotes: Take with food. No Longer Active 02/25/2017 [facility] Diphenhydramine 25 mg, 0.5 mL, Route: IVP, Drug form: INJ, Q8H, Dosing Weight 100.909, kg, PRN Itching, Start date: 02/25/17 11:34:00 ARCHITECTURAL SALES CONSULTANT, Duration: 30 day, Stop date: 03/27/17 11:33:00 CSTNotes: (Same as: Benadryl) No Longer Active 02/25/2017 [facility] Diphenhydramine 25 mg, 1 cap, Route: PO, Drug form: CAP, TID, Dosing Weight 100.909, kg, PRN Itching, Start date: 02/25/17 11:26:00 ARCHITECTURAL SALES CONSULTANT, Duration: 30 day, Stop date: 03/27/17 11:25:00 CSTNotes: (Same as: Benadryl) No Longer Active 02/25/2017 [facility] Famotidine 20 mg, 2 mL, Route: IVP, Drug form: INJ, ONCE, Dosing Weight 100.909, kg, Start date: 02/25/17 11:25:00 ARCHITECTURAL SALES CONSULTANT, Stop date: 02/25/17 11:25:00 CSTNotes: (Same as: Pepcid) Can be dilute in 5-10cc NS IVP: Slow IV push over at least 2 minutes. Inactive 02/25/2017 [facility] Versed 2 mg, 2 mL, Route: IV, Drug form: INJ, Q2H, Dosing Weight 100.909, kg, PRN Agitation, Start date: 02/25/17 10:54:00 ARCHITECTURAL SALES CONSULTANT, Duration: 30 day, Stop date: 03/27/17 10:53:00 CSTNotes: (Same as: Versed) MEDICATION WASTE Product Size: 2 mg Product Wasted: ___ mg No Longer Active 02/25/2017 [facility] Versed 2 mg, 2 mL, Route: IVP, Drug form: INJ, ONCE, Dosing Weight 100.909, kg, Start date: 02/25/17 10:52:00 ARCHITECTURAL SALES CONSULTANT, Stop date: 02/25/17 10:52:00 CSTNotes: (Same as: Versed) MEDICATION WASTE Product Size: 2 mg Product Wasted: ___ mg Inactive 02/25/2017 [facility] Mupirocin 1 appl, Route: NASAL, Q12H, Drug form: OINT, Start date: 02/24/17 21:00:00 ARCHITECTURAL SALES CONSULTANT, Stop date: 03/01/17 9:00:00 ARCHITECTURAL SALES CONSULTANT, MRSA Decolonization No Longer Active 02/25/2017 [facility] Sodium Chloride 0.9% (titrate) 250 mL 250 mL, Rate: inbound call center agent for use with blood product administration, Dosing Weight 100.909, kg, Route: IV, Total Volume: 250, Start Date: 02/24/17 19:20:00 ARCHITECTURAL SALES CONSULTANT, Duration: 30 day, Stop date: 03/26/17 19:19:00 ARCHITECTURAL SALES CONSULTANT, Replace Every: 24 hr No Longer Active 02/25/2017 [facility] Pepcid 20 mg, 2 mL, Route: IV, Drug form: INJ, ONCE, Start date: 02/24/17 13:59:00 ARCHITECTURAL SALES CONSULTANT, Stop date: 02/24/17 13:59:00 CSTNotes: (Same as: Pepcid) Can be dilute in 5-10cc NS IVP: Slow IV push over at least 2 minutes. Inactive 02/24/2017 [facility] Zantac 50 mg, Route: IVPB, ONCE, Dosing Weight 100.909, kg, Start date: 02/24/17 13:34:00 ARCHITECTURAL SALES CONSULTANT, Stop date: 02/24/17 13:34:00 ARCHITECTURAL SALES CONSULTANT Inactive 02/24/2017 [facility] Diphenhydramine 25 mg, 0.5 mL, Route: IVP, Drug form: INJ, ONCE, Dosing Weight 100.909, kg, PRN Itching, Start date: 02/24/17 13:34:00 CSTNotes: (Same as: Benadryl) Inactive 02/24/2017 [facility] methylPREDNISolone SODium SUCCinate 125 mg, 2 mL, Route: IVP, Drug form: INJ, Q6H, Dosing Weight 100.909, kg, Start date: 02/24/17 12:00:00 ARCHITECTURAL SALES CONSULTANT, Duration: 30 day, Stop date: 03/26/17 6:00:00 CSTNotes: (Same as:Solu-MEDROL, A-Methapred) No Longer Active 02/24/2017 [facility] albumin human 5% intravenous solution 12.5 gm, 250 mL, 500 ml/hr, Route: IV, Drug Form: INJ, Dosing Weight 100.909, kg, ONCE, Start date: 02/24/17 11:21:00 ARCHITECTURAL SALES CONSULTANT, Stop date: 02/24/17 11:21:00 CSTNotes: LOT#: Mfg: WASTE: F/P - Red; E -Red (Same as: Albuminar) "blood product derivative" Inactive 02/24/2017 [facility] cefepime 1 gm, Route: IVPB, [id number], Dosing Weight 100.909, kg, (CrCl 30 - 49 ml/min), Start date: 02/24/17 10:00:00 ARCHITECTURAL SALES CONSULTANT, Duration: 10 day, Stop date: 03/05/17 22:00:00 ARCHITECTURAL SALES CONSULTANT, ABX Indication: Immunocompromised Host ProphylaxisNotes: (Same As: Maxipime) MEDICATION WASTE Product Size: 1000 mg Product Wasted: ___ mg No Longer Active 02/24/2017 [facility] Fluconazole 400 mg, 200 mL, Route: IVPB, Drug form: INJ, [id number], Dosing Weight 100.909, kg, Start date: 02/24/17 10:00:00 ARCHITECTURAL SALES CONSULTANT, Duration: 30 day, Stop date: 03/25/17 10:00:00 CSTNotes: (Same as: Diflucan) No Longer Active 02/24/2017 [facility] pantoprazole 40 mg, Route: IVP, Drug form: INJ, Daily, Dosing Weight 100.909, kg, Start date: 02/24/17 9:00:00 ARCHITECTURAL SALES CONSULTANT, Duration: 30 day, Stop date: 03/25/17 9:00:00 CSTNotes: For IV push reconstitute with 10 ml 0.9% sodium chloride and push over 2 minutes. (Same as: Protonix) No Longer Active 02/24/2017 [facility] Miralax 17 gm, 1 pkt, Route: PO, Drug form: PWDR, BID, Dosing Weight 100.909, kg, Start date: 02/24/17 9:00:00 ARCHITECTURAL SALES CONSULTANT, Duration: 30 day, Stop date: 03/25/17 17:00:00 CSTNotes: Dissolve in 8 oz of water or juice. (Same as: Miralax) No Longer Active 02/24/2017 [facility] Docusate Sodium 100 MG Oral Capsule [Colace] 100 mg, 1 cap, Route: PO, Drug form: CAP, BID, Dosing Weight 100.909, kg, Start date: 02/24/17 9:00:00 ARCHITECTURAL SALES CONSULTANT, Duration: 30 day, Stop date: 03/25/17 17:00:00 CSTNotes: (Same as: Colace) (Do Not Crush) No Longer Active 02/24/2017 [facility] vancomycin 1,000 mg, Route: IVPB, Drug form: INJ, [id number], Dosing Weight 100.909, kg, Start date: 02/24/17 9:00:00 ARCHITECTURAL SALES CONSULTANT, Duration: 30 day, Stop date: 03/25/17 9:00:00 ARCHITECTURAL SALES CONSULTANT, ABX Indication: Surgical ProphylaxisNotes: TIME CRITICAL MEDICATION (Same As: Vancocin) Infusion rate 2001 mg: infuse over 2.5 hours For adult patients only: Round to nearest 250 mg per Medical Staff approval MEDICATION WASTE Product Size: 1000 mg Product Wasted: ___ mg No Longer Active 02/24/2017 [facility] Dexmedetomidine 400 microgram, 4 mL, Rate: Titrate, Start Dose: 0.2 microgram/kg/hr, Titration: 0.1 microgram/kg/hr every 30 min, Goal(s): RASS -1, Max Dose: 1.5 microgram/kg/hr, Route: IV, Dosing Weight 100.909 kg, Total Volume: 100, Start date: 02/24/17 8:42:00 ARCHITECTURAL SALES CONSULTANT... No Longer Active 02/24/2017 [facility] Benadryl 25 mg, 0.5 mL, Route: IVP, Drug form: INJ, ONCE, Dosing Weight 100.909, kg, PRN Itching, Start date: 02/24/17 8:42:00 CSTNotes: (Same as: Benadryl) Inactive 02/24/2017 [facility] Vasopressin (SKILLED NURSING) 40 unit, 2 mL, Rate: Titrate, Start Dose: 0.04 unit/min, Titration: start at .04, Goal(s): MAP of at least 60, Route: IV, Dosing Weight 100.909 kg, Total Volume: 100, Start date: 02/24/17 8:15:00 ARCHITECTURAL SALES CONSULTANT, Duration: 30 day, Stop date: 03/26/17 8:14:00 CSTNotes: (Same As: Pitressin, Vasostrict) No Longer Active 02/24/2017 [facility] Cefazolin 2 gm, Route: IVPB, Drug form: INJ, Q8H, Dosing Weight 100.909, kg, Start date: 02/24/17 0:00:00 ARCHITECTURAL SALES CONSULTANT, Duration: 3 doses or times, Stop date: 02/24/17 16:00:00 ARCHITECTURAL SALES CONSULTANT, ABX Indication: Surgical Prophylaxis No Longer Active 02/24/2017 [facility] ocular lubricant 1 appl, Route: BOTH EYES, Q6H, Drug form: OINT, Start date: 02/24/17 0:00:00 ARCHITECTURAL SALES CONSULTANT, Duration: 30 day, Stop date: 03/25/17 18:00:00 CSTNotes: (Same as: Lacri-Lube, Duratears Naturale, Artificial Tears, and Tears Again ) No Longer Active 02/24/2017 [facility] sodium bicarbonate 8.4% 50 mEq, 50 ml, Route: IVP, Drug Form: INJ, Dosing Weight 100.909, kg, ONCE, Start date: 02/23/17 23:29:00 ARCHITECTURAL SALES CONSULTANT, Stop date: 02/23/17 23:29:00 CSTNotes: (sodium bicarb 8.4% (1 mEq/ml) 50 ml VL) Inactive 02/24/2017 [facility] ceFAZolin (SCIP) 2 gm, 20 mL, Route: IVPB, Drug form: SOLN, Q8Hnow, Dosing Weight 100.909, kg, Start date: 02/23/17 23:00:00 ARCHITECTURAL SALES CONSULTANT, Duration: 3 doses or times, Stop date: 02/24/17 15:00:00 ARCHITECTURAL SALES CONSULTANT, ABX Indication: Surgical ProphylaxisNotes: (Same as Ancef) No Longer Active 02/24/2017 [facility] albumin human 25% intravenous solution 25 gm, 100 mL, Route: IV, Drug form: INJ, ONCE, Dosing Weight 100.909, kg, Start date: 02/23/17 21:08:00 ARCHITECTURAL SALES CONSULTANT, Stop date: 02/23/17 21:08:00 CSTNotes: Lot #: Mfg: (Same as: Plasbumin-25) "blood product derivative" WASTE: F/P - Red; E -Red MEDICATION WASTE Product Size: 25 gm Product Wasted: _0_ gm Inactive 02/24/2017 [facility] Vancomycin 1,500 mg, Route: IVPB, Drug form: INJ, Q12H, Dosing Weight 100.909, kg, Time Critical Medication, Start date: 02/23/17 21:00:00 ARCHITECTURAL SALES CONSULTANT, Duration: 2 doses or times, Stop date: 02/24/17 9:00:00 ARCHITECTURAL SALES CONSULTANT, ABX I ndication: Surgical Prophylaxis Inactive 02/24/2017 [facility] chlorhexidine gluconate 1.2 MG/ML Mouthwash 15 mL, Route: Swab Mouth, Q12H, Drug form: LIQ, Start date: 02/23/17 21:00:00 ARCHITECTURAL SALES CONSULTANT, Duration: 30 day, Stop date: 03/25/17 9:00:00 CSTNotes: (Same As: Peridex) No Longer Active 02/24/2017 [facility] albumin human 25% intravenous solution 25 gm, Route: IV, ONCE, Dosing Weight 100.909, kg, Start date: 02/23/17 20:27:00 ARCHITECTURAL SALES CONSULTANT, Stop date: 02/23/17 20:27:00 ARCHITECTURAL SALES CONSULTANT Inactive 02/24/2017 [facility] Cefazolin 2 gm, 20 mL, Route: IVPB, Drug form: SOLN, Q8Hnow, Dosing Weight 100.909, kg, Start date: 02/23/17 20:00:00 ARCHITECTURAL SALES CONSULTANT, Duration: 3 doses or times, Stop date: 02/24/17 12:00:00 ARCHITECTURAL SALES CONSULTANT, ABX Indication: Surgical ProphylaxisNotes: (Same as Ancef) Inactive 02/24/2017 [facility] sodium phosphate 30 mmol, Route: IVPB, ONCE, Dosing Weight 100.909, kg, Priority: STAT, Start date: 02/23/17 19:17:00 ARCHITECTURAL SALES CONSULTANT, Stop date: 02/23/17 19:17:00 ARCHITECTURAL SALES CONSULTANT Inactive 02/24/2017 [facility] potassium phosphate 30 mmol, 10 mL, Route: IVPB, ONCE, Dosing Weight 100.909, kg, Start date: 02/23/17 19:08:00 ARCHITECTURAL SALES CONSULTANT, Stop date: 02/23/17 19:08:00 CSTNotes: (Same as: K Phosphate.) 1 mMol phoshate has 1.47 mEq potassium Infuse over 4 hours Inactive 02/24/2017 [facility] Sodium Chloride 0.9% (titrate) 250 mL 250 mL, Rate: inbound call center agent for use with blood product administration, Dosing Weight 100.909, kg, Route: IV, Total Volume: 250, Start Date: 02/23/17 19:04:00 ARCHITECTURAL SALES CONSULTANT, Duration: 30 day, Stop date: 03/25/17 19:03:00 ARCHITECTURAL SALES CONSULTANT, Replace Every: 24 hr No Longer Active 02/24/2017 [facility] Vancomycin 1,000 mg, Route: IVPB, Drug form: INJ, [id number], Dosing Weight 100.909, kg, Start date: 02/23/17 19:00:00 ARCHITECTURAL SALES CONSULTANT, Duration: 30 day, Stop date: 03/24/17 19:00:00 ARCHITECTURAL SALES CONSULTANT, ABX Indication: Surgical ProphylaxisNotes: TIME CRITICAL MEDICATION (Same As: Vancocin) Infusion rate 2001 mg: infuse over 2.5 hours For adult patients only: Round to nearest 250 mg per Medical Staff approval MEDICATION WASTE Product Size: 1000 mg Product Wasted: ___ mg Inactive 02/24/2017 [facility] Norepinephrine 8 mg, 8 mL, Rate: Titrate [...] catheter (PICC) line. No Longer Active 02/24/2017 [facility] Epinephrine 8 mg, 8 mL, Rate: Titrate for MAP of 60, Start Dose: 2 microgram/min, Titration: For MAP of 60, Goal(s): MAP of 60, Route: IV, Dosing Weight 100.909 kg, Total Volume: 250, Start date: 02/23/17 18:40:00 ARCHITECTURAL SALES CONSULTANT, Duration: 30 day, Stop date: 03/25/17 18:39:... No Longer Active 02/24/2017 [facility] chlorhexidine gluconate 1.2 MG/ML Mouthwash 15 mL, Route: Swab Mouth, PRN, Drug form: LIQ, PRN Other -See Comment, Start date: 02/23/17 18:27:00 ARCHITECTURAL SALES CONSULTANT, Duration: 30 day, Stop date: 03/25/17 18:26:00 CSTNotes: (Same As: Peridex) No Longer Active 02/24/2017 [facility] Fentanyl 1,000 microgram, 20 mL, Rate: Titrate, Start Dose: 50 microgram/hr, Titration: 25 microgram/hour every 15 minutes, Goal(s): RASS - 2, Max Dose: 300 microgram/hr, Route: IV, Dosing Weight 100.909 kg, Total Volume: 20, Start date: 02/23/17 18:23:00 ARCHITECTURAL SALES CONSULTANT,... No Longer Active 02/24/2017 [facility] Amicar 5 gm, 20 mL, Route: IVPB, Drug form: INJ, ONCE, Dosing Weight 100.909, kg, Start date: 02/23/17 18:21:00 ARCHITECTURAL SALES CONSULTANT, Stop date: 02/23/17 18:21:00 CSTNotes: (Same as: Amicar) Inactive 02/24/2017 [facility] Fentanyl 600 microgram, 30 mL, Route: IV, WHEEL PRESSER Dose: 10 mcg, WHEEL PRESSER Lockout: 10 minutes, Continuous Basal Rate: 0 mg, 4 Hour Limit (In MCG): 240, Drug Form: INJ, Continuous, Start date: 02/23/17 17:44:00 ARCHITECTURAL SALES CONSULTANT, Durati on: 1 day, Stop date: 02/24/17 17:43:00 CSTNotes: Concentration is 20 micrograms/ml No Longer Active 02/23/2017 [facility] Naloxone 0.04 mg, 0.1 mL, Route: IVP, Drug form: INJ, Q2MIN, Dosing Weight 100.909, kg, PRN Narcotic Reversal, Start date: 02/23/17 17:44:00 ARCHITECTURAL SALES CONSULTANT, Duration: 30 day, Stop date: 03/25/17 17:43:00 CSTNotes: Same as Narcan No Longer Active 02/23/2017 [facility] Dextrose 50% Syringe 12.5 gm, 25 mL, Route: IVP, Drug Form: INJ, Dosing Weight 100.909, kg, PRN, PRN Blood Glucose Results, Start date: 02/23/17 17:44:00 ARCHITECTURAL SALES CONSULTANT, Duration: 30 day, Stop date: 03/25/17 17:43:00 ARCHITECTURAL SALES CONSULTANT No Longer Active 02/23/2017 [facility] Insulin regular 100 unit + 99 mL, Rate: Start Insulin Drip Per ICU Protocol, Dosing Weight 100.909, kg, Route: IVPB, Total Volume: 100, Start Date: 02/23/17 17:44:00 ARCHITECTURAL SALES CONSULTANT, Duration: 30 day, Stop date: 03/25/17 17:43:00 ARCHITECTURAL SALES CONSULTANT, Replace Every: 24 hrNotes: Final Concentration 1unit/1ml WASTE: F/P - Black; E - Municipal Trash Bin No Longer Active 02/23/2017 [facility] Zofran 4 mg, 2 mL, Route: IV, Drug form: INJ, Q6H, Dosing Weight 100.909, kg, PRN Nausea, Start date: 02/23/17 17:44:00 ARCHITECTURAL SALES CONSULTANT, Duration: 30 day, Stop date: 03/25/17 17:43:00 CSTNotes: (Same as: Chavo) MEDICATION WASTE Product Size: 4 mg Product Wasted: _0_ mg No Longer Active 02/23/2017 [facility] sennosides, SKILLED NURSING 8.6 MG Oral Tablet 8.6 mg, 1 tab, Route: PO, Drug Form: TAB, Dosing Weight 100.909, kg, BID, PRN Constipation, Start date: 02/23/17 17:44:00 ARCHITECTURAL SALES CONSULTANT, Duration: 30 day, Stop date: 03/25/17 17:43:00 CSTNotes: (Same as: [place]) No Longer Active 02/23/2017 [facility] Cardene 40 mg in NS 200 mL (Titrate.) IV 40 mg 40 mg, 200 mL, Rate: Titrate, Start Dose: 5 mg/hr, Titration: increase or decrease by 5 but no more than 15, Goal(s): MAP 70, Route: IV, Dosing Weight 100.909 kg, Total Volume: 200 mL, Start date: 02/23/17 17:44:00 ARCHITECTURAL SALES CONSULTANT, Duration: 30 day, Stop date: ...Notes: Same as: Cardene Concentration: (0.2 mg /1 ml ) No Longer Active 02/23/2017 [facility] Acetaminophen 325 MG / Hydrocodone Bitartrate 10 MG Oral Tablet 2 tab, Route: PO, Drug Form: TAB, Dosing Weight 100.909, kg, Q4H, PRN Pain Score 4-6, Start date: 02/23/17 17:44:00 ARCHITECTURAL SALES CONSULTANT, Duration: 4 day, Stop date: 02/27/17 17:43:00 CSTNotes: Do not exceed 4gm/day of acetaminophen. (Same as: [place]blong 325/10) No Longer Active 02/23/2017 [facility] Acetaminophen 650 mg, 2 tab, Route: PO, Drug form: TAB, Q4H, Dosing Weight 100.909, kg, PRN Pain 1-3/Temp > 100.4 F, Start date: 02/23/17 17:44:00 ARCHITECTURAL SALES CONSULTANT, Duration: 30 day, Stop date: 03/25/17 17:43:00 CSTNotes: Do not exceed 4 gm/day. (Same as: Tylenol) No Longer Active 02/23/2017 [facility] hydrocortisone (ANES) Route: IV, Drug form: INJ, ONCE, Stop date: 02/23/17 16:30:00 ARCHITECTURAL SALES CONSULTANT Inactive 02/23/2017 [facility] Stimate (ANES) 4 microgram Route: IV, Drug Form: INJ, Start date: 02/23/17 16:13:00 ARCHITECTURAL SALES CONSULTANT, Stop date: 02/23/17 17:13:00 ARCHITECTURAL SALES CONSULTANT Inactive 02/23/2017 [facility] methylene blue (ANES) 10 mg Route: IV, Drug form: INJ, Start date: 02/23/17 14:42:00 ARCHITECTURAL SALES CONSULTANT, Stop date: 02/23/17 15:42:00 ARCHITECTURAL SALES CONSULTANT Inactive 02/23/2017 [facility] protamine (ANES) 10 mg Route: IV, Drug form: INJ, Start date: 02/23/17 14:42:00 ARCHITECTURAL SALES CONSULTANT, Stop date: 02/23/17 15:42:00 ARCHITECTURAL SALES CONSULTANT Inactive 02/23/2017 [facility] vasopressin (ANES) Route: IV, Drug form: INJ, ONCE, Stop date: 02/23/17 14:29:00 ARCHITECTURAL SALES CONSULTANT Inactive 02/23/2017 [facility] calcium gluconate (ANES) Route: IV, Drug form: INJ, ONCE, Stop date: 02/23/17 14:29:00 ARCHITECTURAL SALES CONSULTANT Inactive 02/23/2017 [facility] norepinephrine (ANES) 32 microgram Route: IV, Drug form: INJ, Start date: 02/23/17 14:25:00 ARCHITECTURAL SALES CONSULTANT, Stop date: 02/23/17 15:25:00 ARCHITECTURAL SALES CONSULTANT Inactive 02/23/2017 [facility] EPINEPHrine (ANES) Route: IV, Drug form: INJ, ONCE, Stop date: 02/23/17 14:24:00 ARCHITECTURAL SALES CONSULTANT Inactive 02/23/2017 [facility] magnesium sulfate (ANES) Route: IV, Drug form: INJ, ONCE, Stop date: 02/23/17 13:54:00 ARCHITECTURAL SALES CONSULTANT Inactive 02/23/2017 [facility] Sodium Chloride 0.9% IV (ANES) 500 mL Route: IV, Total Volume: 500, Start date: 02/23/17 13:28:00 ARCHITECTURAL SALES CONSULTANT, Stop date: 02/23/17 14:28:00 ARCHITECTURAL SALES CONSULTANT Inactive 02/23/2017 [facility] Sodium Chloride 0.9% IV (ANES) 246 mL + EPINEPHrine (ANES) 4000 microgram Route: IV, Drug form: INJ, Start date: 02/23/17 13:26:00 ARCHITECTURAL SALES CONSULTANT, Stop date: 02/23/17 14:26:00 ARCHITECTURAL SALES CONSULTANT Inactive 02/23/2017 [facility] Insulin regular (ANES) Route: IV, Drug form: INJ, ONCE, Stop date: 02/23/17 12:04:00 ARCHITECTURAL SALES CONSULTANT Inactive 02/23/2017 [facility] niCARdipine (ANES) Route: IV, Drug form: INJ, ONCE, Stop date: 02/23/17 10:39:00 ARCHITECTURAL SALES CONSULTANT Inactive 02/23/2017 [facility] heparin (ANES) Route: IV, Drug form: INJ, ONCE, Stop date: 02/23/17 10:24:00 ARCHITECTURAL SALES CONSULTANT Inactive 02/23/2017 [facility] norepinephrine (ANES) Route: IV, Drug form: INJ, ONCE, Stop date: 02/23/17 9:34:00 ARCHITECTURAL SALES CONSULTANT Inactive 02/23/2017 [facility] rocuronium (ANES) Route: IV, Drug form: INJ, ONCE, Stop date: 02/23/17 9:09:00 ARCHITECTURAL SALES CONSULTANT Inactive 02/23/2017 [facility] propofol (ANES) Route: IV, Drug form: INJ, ONCE, Stop date: 02/23/17 9:09:00 [employer] Inactive 02/23/2017 [facility] lidocaine (ANES) Route: IV, Drug form: INJ, ONCE, Stop date: 02/23/17 9:09:00 [employer] Inactive 02/23/2017 [facility] ceFAZolin (ANES) Route: IV, Drug form: INJ, ONCE, Stop date: 02/23/17 8:58:00 [employer] Inactive 02/23/2017 [facility] metoprolol (ANES) Route: IV, Drug form: INJ, ONCE, Stop date: 02/23/17 8:53:00 [employer] Inactive 02/23/2017 [facility] fentaNYL (ANES) Route: IV, Drug form: INJ, ONCE, Stop date: 02/23/17 8:53:00 [employer] Inactive 02/23/2017 [facility] midazolam (ANES) Route: IV, Drug form: SOLN, ONCE, Stop date: 02/23/17 8:33:00 [employer] Inactive 02/23/2017 [facility] vancomycin (ANES) 1000 mg Route: IV, Drug form: INJ, Start date: 02/23/17 8:30:00 [employer], Stop date: 02/23/17 9:30:00 [employer] Inactive 02/23/2017 [facility] tranexamic acid (ANES) 100 mg Route: IV, Drug form: INJ, Start date: 02/23/17 8:30:00 [employer], Stop date: 02/23/17 9:30:00 [employer] Inactive 02/23/2017 [facility] Sodium Chloride 0.9% IV (ANES) 1000 mL Route: IV, Total Volume: 1,000, Start date: 02/23/17 8:26:00 [employer]IT[employer] SALES [employer]SULTANT, Stop date: 02/23/17 9:26:00 [employer]CHIT[employer]URAL SALES CONSULTANT Inactive 02/23/2017 [facility] S PH 7.4 (ANES) 1000 mL Route: IV, Total Volume: 1,000, Start date: 02/23/17 8:00:00 ARCHIT[employer]URAL SALES CONSULTANT, Stop date: 02/23/17 9:00:00 ARCHITECTURAL SALES CONSULTANT Inactive 02/23/2017 [facility] Saline Flush 0.9% 5 ml, Route: MISC, Drug Form: INJ, Dosing Weight 100.909, kg, Q12H, Start date: 02/22/17 21:00:00 ARCHIT[employer]URAL SALES CONSULTANT, Duration: 30 day, Stop date: 03/24/17 9:00:00 CSTNotes: (Same as: BD Posiflush) No Longer Active 02/23/2017 [facility] Cefazolin 2 gm, Route: IVPB, ONCALL, Dosing Weight 100.909, kg, Start date: 02/22/17 19:00:00 ARCHIT[employer]URAL SALES CONSULTANT, Duration: 1 doses or times, ABX Indication: Surgical ProphylaxisNotes: (Same As: [place] Kefzol) MEDICAT ION WASTE Product Size: 1000 mg Product Wasted: ___ mg No Longer Active 02/23/2017 [facility] Mupirocin 0.02 MG/MG Topical Ointment 1 appl, Route: NASAL, ONCALL, Drug form: OINT/A, Start date: 02/22/17 19:00:00 ARCHITECTURAL SALES CONSULTANT, Duration: 30 day, Stop date: 03/24/17 18:59:00 CSTNotes: 1/2 UD to each nostril. (Same As: Bactroban) No Longer Active 02/23/2017 [facility] Sodium Chloride 0.9% (titrate) 250 mL 250 mL, Rate: To prime line and flush remaining blood products., Dosing Weight 100.909, kg, Route: IV, Total Volume: 250, Start Date: 02/22/17 18:08:00 ARCHIT[employer] SALES CONSULTANT, Duration: 30 day, Stop date: 03/24/17 18:07:00 ARCHITECTURAL SALES CONSULTANT, Replace Every: 24 hr No Longer Active 02/23/2017 [facility] Saline Flush 0.9% 5 ml, Route: MISC, Drug Form: INJ, Dosing Weight 100.909, kg, PRN, PRN Line Flush, Start date: 02/22/17 18:08:00 ARCHIT[employer]URAL SALES CONSULTANT, Duration: 30 day, Stop date: 03/24/17 18:07:00 CSTNotes: (Same as: BD Posiflush) No Longer Active 02/23/2017 [facility] Metoprolol 2 mg, 2 mL, Route: IVP, Drug form: INJ, ONCE, Dosing Weight 100.909, kg, Start date: 02/22/17 18:08:00 ARCHIT[employer]URAL SALES CONSULTANT, Stop date: 02/22/17 18:08:00 CSTNotes: (Same as: Lopressor) Push over 2 minutes No Longer Active 02/23/2017 [facility] Codeine Phosphate 10 MG / Guaifenesin 300 MG Oral Tablet 10 mL, Route: PO, Drug Form: LIQ, Dosing Weight 100.909, kg, Q6H, PRN Cough/Congestion, Start date: 02/22/17 13:31:00 ARCHIT[employer]URAL SALES CONSULTANT, Duration: 30 day, Stop date: 03/24/17 13:30:00 CSTNotes: (Same As: Robitussin AC) No Longer Active 02/22/2017 [facility] Acetaminophen 325 MG / Hydrocodone Bitartrate 5 MG Oral Tablet [Oblong 5/325] 1 tab, Route: PO, Drug Form: TAB, Dosing Weight 100.909, kg, Q6H, Start date: 02/21/17 18:00:00 ARCHIT[employer] SALES CONSULTANT, Duration: 30 day, Stop date: 03/23/17 12:00:00 CSTNotes: (Same as: Oblong 325/5) Do not exceed 4gm/day of acetaminophen. No Longer Active 02/22/2017 [facility] Acetaminophen 325 MG / Hydrocodone Bitartrate 5 MG Oral Tablet [Oblong 5/325] 1 tab, Route: PO, Drug Form: TAB, Dosing Weight 100.909, kg, Q4H, PRN Pain Score 1-3, Start date: 02/21/17 13:33:00 ARCHIT[employer]URAL SALES CONSULTANT, Duration: 30 day, Stop date: 03/23/17 13:32:00 CSTNotes: (Same as: Oblong 325/5) Do not exceed 4gm/day of acetaminophen. No Longer Active 02/21/2017 [facility] Diphenhydramine 25 mg, 0.5 mL, Route: IVP, Drug form: INJ, ONCE, Dosing Weight 100.909, kg, PRN Itching, Start date: 02/21/17 11:41:00 CSTNotes: (Same as: Benadryl) Inactive 02/21/2017 [facility] atorvastatin 80 mg, 1 tab, Route: PO, Drug form: TAB, Bedtime, Dosing Weight 100.909, kg, Start date: 02/20/17 21:00:00 ARCHIT[employer] SALES CONSULTANT, Duration: 30 day, Stop date: 03/21/17 21:00:00 CSTNotes: Same as Lipitor No Longer Active 02/21/2017 [facility] Furosemide 40 MG Oral Tablet 40 mg, 4 mL, Route: IVP, Drug form: INJ, BID, Dosing Weight 100.909, kg, Start date: 02/20/17 17:00:00 ARCHIT[employer] SALES CONSULTANT, Duration: 30 day, Stop date: 03/22/17 9:00:00 CSTNotes: (Same as: Lasix) MEDICATION WASTE Product Size: 40 mg Product Wasted: 0___ mg No Longer Active 02/20/2017 [facility] Furosemide 40 MG Oral Tablet 40 mg, 1 tab, Route: PO, Drug form: TAB, BID Diuretic, Dosing Weight 100.909, kg, Start date: 02/20/17 14:00:00 ARCHIT[employer]URAL SALES CONSULTANT, Duration: 30 day, Stop date: 03/22/17 6:00:00 CSTNotes: (Same as: Lasix) May cause GI upset. Give with food or milk. Inactive 02/20/2017 [facility] Pneumovax 23 0.5 mL, Route: IM, Drug Form: INJ, Daily, Start date: 02/20/17 12:30:00 ARCHIT[employer]URAL SALES CONSULTANT, Duration: 1 doses or times, Stop date: 02/20/17 12:30:00 CSTNotes: (Same as: Pneumovax 23) Refrigerate Inactive 02/20/2017 [facility] insulin glargine 18 unit, 0.18 mL, Route: SUB-Q, Drug form: SOLN, Daily, Start date: 02/20/17 9:00:00 ARCHITECTURAL SALES CONSULTANT, Duration: 30 day, Stop date: 03/21/17 9:00:00 CSTNotes: (Same as: Lantus) Do not hold insulin without contact ing prescriber WASTE: F/P - Black; E - Municipal Trash Bin "single patient use only" Inactive 02/20/2017 [facility] Saline Flush 0.9% 10 ml, Route: IVP, Drug Form: INJ, Dosing Weight 100.909, kg, Q12H, Start date: 02/20/17 9:00:00 ARCHITECTURAL SALES CONSULTANT, Duration: 30 day, Stop date: 03/21/17 21:00:00 CSTNotes: (Same as: BD Posiflush) No Longer Active 02/20/2017 [facility] influenza virus vaccine, inactivated 0.5 mL, Route: IM, Drug Form: SUSP, Daily, Start date: 02/20/17 9:00:00 ARCHITECTURAL SALES CONSULTANT, Duration: 1 doses or times, Stop date: 02/20/17 9:00:00 CSTNotes: (Same as: Fluzone Quadrivalent, Fluarix Quadrivalent) For 3 years of age and older (0.5 mL IM) Shake well before use Inactive 02/20/2017 [facility] pneumococcal capsular polysaccharide type 1 vaccine / pneumococcal capsular polysaccharide type 10A vaccine / pneumococcal capsular polysaccharide type 11A vaccine / pneumococcal capsular polysaccharide type 12F vaccine / pneumococcal capsular polysacchar 0.5 mL, Route: IM, Drug Form: INJ, Daily, Start date: 02/20/17 9:00:00 ARCHIT[employer]URAL SALES CONSULTANT, Duration: 1 doses or times, Stop date: 02/20/17 9:00:00 CSTNotes: (Same as: Pneumovax 23) Refrigerate Inactive 02/20/2017 [facility] sacubitril 24 MG / valsartan 26 MG Oral Tablet [Entresto] 1 tab, Route: PO, Drug Form: TAB, Dosing Weight 100.909, kg, Q12H, Start date: 02/20/17 9:00:00 ARCHITECTURAL SALES CONSULTANT, Duration: 30 day, Stop date: 03/21/17 21:00:00 CSTNotes: (Same as: Entresto) Avoid in patients with history of angioedema due to STEPHEN inhibitor or ARB therapy. Do not use concomitantly or within 36 hours of STEPHEN inhibitors No Longer Active 02/20/2017 [facility] metoprolol tartrate 25 mg, 1 tab, Route: PO, Drug form: TAB, Q12H, Dosing Weight 100.909, kg, Start date: 02/20/17 9:00:00 ARCHITECTURAL SALES CONSULTANT, Duration: 30 day, Stop date: 03/21/17 21:00:00 CSTNotes: (Same as: Lopressor) No Longer Active 02/20/2017 [facility] Insulin Glargine 100 UNT/ML Injectable Solution 18 unit, 0.18 mL, Route: SUB-Q, Drug form: SOLN, Daily, Dosing Weight 100.909, kg, Start date: 02/20/17 9:00:00 ARCHITECTURAL SALES CONSULTANT, Duration: 30 day, Stop date: 03/21/17 9:00:00 CSTNotes: (Same as: Lantus) Do not hold insulin without contacting prescriber WASTE: F/P - Black; E - Municipal Trash Bin "single patient use only" No Longer Active 02/20/2017 [facility] Aspirin 81 MG Enteric Coated Tablet 81 mg, 1 tab, Route: PO, Drug form: ECTAB, Daily, Dosing Weight 100.909, kg, Start date: 02/20/17 9:00:00 ARCHITECTURAL SALES CONSULTANT, Duration: 30 day, Stop date: 03/21/17 9:00:00 CSTNotes: Do not crush or chew. (Same As: Ecotrin) No Longer Active 02/20/2017 [facility] Insulin Lispro 5 unit, 0.05 mL, Route: SUB-Q, Drug form: SOLN, TID-Before Meals, Dosing Weight 100.909, kg, Start date: 02/20/17 7:30:00 ARCHITECTURAL SALES CONSULTANT, Duration: 30 day, Stop date: 03/21/17 16:30:00 CSTNotes: (Same as: Humalog ) Roll in palms of hands gently; Do not shake `vigorously. "Single Patient Use Only " WASTE: F/P - Black; E - Municipal Trash Bin Stable for 28 days at room temperature. Expires in days from Date No Longer Active 02/20/2017 [facility] heparin additive 25,000 unit [12 unit/kg/hr] + Premix Diluent Sodium Chloride 0.45% 500 mL 500 mL, Rate: 24.22 ml/hr, Infuse over: 20.6 hr, Route: IV, Dosing Weight 100.909 kg, Total Volume: 500 mL, Start date: 02/20/17 6:28:00 ARCHITECTURAL SALES CONSULTANT, Stop date: 03/22/17 6:27:00 ARCHITECTURAL SALES CONSULTANT, 2.33, e2Dyxas: Total Concen tration=50 unit/ ml Total ndiewn=064 ml Send Med Request 2 hours prior to next bag No Longer Active 02/20/2017 [facility] Heparin 30 unit/kg Bolus (Heparin Dosing Weight) Route: IVP, PRN, 3,000 unit, 3 mL, Drug form: INJ, PRN, Heparin Protocol, Start date: 02/20/17 6:28:00 ARCHITECTURAL SALES CONSULTANT Stop date: 03/22/17 6:27:00 ARCHITECTURAL SALES CONSULTANT No Longer Active 02/20/2017 [facility] Heparin 60 unit/kg Bolus (Heparin Dosing Weight) Route: IVP, PRN, 6,100 unit, 6.1 mL, Drug form: INJ, PRN, Heparin Protocol, Start date: 02/20/17 6:28:00 ARCHITECTURAL SALES CONSULTANT Stop date: 03/22/17 6:27:00 ARCHITECTURAL SALES CONSULTANT No Longer Active 02/20/2017 [facility] Insulin Lispro 4 unit, 0.04 mL, Route: SUB-Q, Drug form: SOLN, TID-Before Meals, Dosing Weight 100.909, kg, PRN Blood Glucose Results, Start date: 02/20/17 6:25:00 ARCHITECTURAL SALES CONSULTANT, Duration: 30 day, Stop date: 03/22/17 6:24:00 CSTNotes: (Same as: Humalog ) Roll in palms of hands gently; Do not shake `vigorously. "Single Patient Use Only " WASTE: F/P - Black; E - Municipal Trash Bin Stable for 28 days at room temperature. Expires in days from Date No Longer Active 02/20/2017 [facility] Dextrose 50% Syringe 12.5 gm, 25 mL, Route: IVP, Drug Form: INJ, Dosing Weight 100.909, kg, PRN, PRN Blood Glucose Results, Start date: 02/20/17 6:25:00 ARCHITECTURAL SALES CONSULTANT, Duration: 30 day, Stop date: 03/22/17 6:24:00 ARCHITECTURAL SALES CONSULTANT No Longer Active 02/20/2017 [facility] Glucagon 1 mg, Route: IM, Drug form: PDR/INJ, PRN, Dosing Weight 100.909, kg, PRN Blood Glucose Results, Start date: 02/20/17 6:25:00 ARCHITECTURAL SALES CONSULTANT, Duration: 30 day, Stop date: 03/22/17 6:24:00 ARCHITECTURAL SALES CONSULTANT No Longer Active 02/20/2017 [facility] Calcium Gluconate 3 gm, 30 mL, Route: IVPB, PRN, Dosing Weight 100.909, kg, PRN Abnormal Lab Result, For NON-ICU Patients Only., Start date: 02/20/17 6:19:00 ARCHITECTURAL SALES CONSULTANT, Duration: 30 day, Stop date: 03/22/17 6:18:00 CSTNotes: WASTE: F/P - Sink; E - Municipal Trash Bin No Longer Active 02/20/2017 [facility] Magnesium Sulfate 1 gm, 100 mL, Route: IVPB, Drug form: INJ, PRN, Dosing Weight 100.909, kg, PRN Abnormal Lab Result, For NON-ICU Patients Only., Start date: 02/20/17 6:19:00 ARCHITECTURAL SALES CONSULTANT, Duration: 30 day, Stop date: 03/22/17 6:18:00 CSTNotes: WASTE: F/P - Sink; E - Municipal Trash Bin No Longer Active 02/20/2017 [facility] Magnesium Oxide 800 mg, 2 tab, Route: PO, Drug form: TAB, PRN, Dosing Weight 100.909, kg, PRN Abnormal Lab Result, For NON-ICU Patients Only., Start date: 02/20/17 6:19:00 ARCHITECTURAL SALES CONSULTANT, Duration: 30 day, Stop date: 03/22/17 6:18:00 CSTNotes: (Same as: Mag-Ox 400) Magnesium oxide [id number] elemental magnesium Dose=____mg magnesium oxide (___mg elemental magnesium) No Longer Active 02/20/2017 [facility] Potassium Chloride 20 mEq, 1 tab, Route: PO, Drug form: ERTAB, PRN, Dosing Weight 100.909, kg, PRN Abnormal Lab Result, For NON-ICU Patients Only, Start date: 02/20/17 6:19:00 ARCHITECTURAL SALES CONSULTANT, Duration: 30 day, Stop date: 03/22/17 6:18:00 CSTNotes: (Same as: K-Dur 20) "Do Not Crush" With food and full glass of water No Longer Active 02/20/2017 [facility] sodium phosphate 30 mmol, 10 mL, Route: IVPB, PRN, Dosing Weight 100.909, kg, PRN Abnormal Lab Result, For NON-ICU Patients Only., Start date: 02/20/17 6:19:00 ARCHITECTURAL SALES CONSULTANT, Duration: 30 day, Stop date: 03/22/17 6:18:00 ARCHITECTURAL SALES CONSULTANT No Longer Active 02/20/2017 [facility] potassium phosphate 30 mmol, 10 mL, Route: IVPB, PRN, Dosing Weight 100.909, kg, PRN Abnormal Lab Result, For NON-ICU Patients Only., Start date: 02/20/17 6:19:00 ARCHITECTURAL SALES CONSULTANT, Duration: 30 day, Stop date: 03/22/17 6:18:00 CSTNo riley: (Same as: K Phosphate.) 1 mMol phoshate has 1.47 mEq potassium Infuse over 4 hours No Longer Active 02/20/2017 [facility] potassium phosphate-sodium phosphate 250 mg-280 mg-160 mg oral powder for reconstitution 2 pkt, Route: PO, Drug Form: PDR/REC, Dosing Weight 100.909, kg, PRN, PRN Abnormal Lab Result, For NON-ICU Patients Only, Start date: 02/20/17 6:19:00 ARCHITECTURAL SALES CONSULTANT, Duration: 30 day, Stop date: 03/22/17 6:18:00 CSTNotes: (Same as: Phos-NaK) Each 1.5 gm pkt has 250mg phosphorous. Mix w/2.5oz water and stir. No Longer Active 02/20/2017 [facility] Saline Flush 0.9% 10 ml, Route: IVP, Drug Form: INJ, Dosing Weight 100.909, kg, PRN, PRN Line Flush, Start date: 02/20/17 6:19:00 ARCHITECTURAL SALES CONSULTANT, Duration: 30 day, Stop date: 03/22/17 6:18:00 CSTNotes: (Same as: BD Posiflush) No Longer Active 02/20/2017 [facility] Ondansetron 4 mg, 2 mL, Route: IVP, Drug form: INJ, Q6H, Dosing Weight 100.909, kg, PRN Nausea, Start date: 02/20/17 6:13:00 ARCHITECTURAL SALES CONSULTANT, Duration: 30 day, Stop date: 03/22/17 6:12:00 CSTNotes: (Same as: Zofran) MEDICATION WASTE Product Size: 4 mg Product Wasted: ___ mg No Longer Active 02/20/2017 [facility] Morphine 4 mg, 1 mL, Route: IV, Drug form: SOLN, Q4H, Dosing Weight 100.909, kg, PRN Pain Score 6-10, Start date: 02/20/17 6:13:00 ARCHITECTURAL SALES CONSULTANT, Duration: 30 day, Stop date: 03/22/17 6:12:00 CSTNotes: (Same as:MORPhine Sulfate) No Longer Active 02/20/2017 [facility] Acetaminophen 325 MG / Hydrocodone Bitartrate 7.5 MG Oral Tablet [Oblong 7.5/325] 1 tab, Route: PO, Drug Form: TAB, Dosing Weight 100.909, kg, Q4H, PRN Pain Score 4-6, Start date: 02/20/17 6:13:00 ARCHITECTURAL SALES CONSULTANT, Duration: 30 day, Stop date: 03/22/17 6:12:00 CSTNotes: Same as Oblong 325-7.5mg Do not exceed 4gm/day of acetaminophen. No Longer Active 02/20/2017 [facility] heparin 1000 units/mL injectable solution 2,900 unit=2.9 mL, IVP, PRN, PRN Heparin Protocol, 0 Refill(s) No Longer Active 02/20/2017 [facility] Glucagon 1 mg, IM, PRN, PRN Blood Glucose Results, 0 Refill(s) No Longer Active 02/20/2017 [facility] Furosemide 40 MG Oral Tablet 40 mg=1 tab, PO, BID Diuretic, 0 Refill(s) No Longer Active 02/20/2017 [facility] sacubitril 24 MG / valsartan 26 MG Oral Tablet [Entresto] 1 tab, PO, Q12H, 0 Refill(s) No Longer Active 02/20/2017 [facility] ondansetron 2 mg/mL injectable solution 4 mg=2 mL, IVP, Q6H, PRN Nausea, 0 Refill(s) No Longer Active 02/20/2017 [facility] Morphine 4 mg=1 mL, IV, Q4H, PRN Pain Score 6-10, 0 Refill(s) No Longer Active 02/20/2017 [facility] Alprazolam 0.25 MG Oral Tablet [Xanax] 0.25 mg=1 tab, PO, Q12H, PRN Anxiety, 0 Refill(s) No Longer Active 02/20/2017 [facility] atorvastatin 40 mg oral tablet 40 mg=1 tab, PO, Bedtime, 0 Refill(s) No Longer Active 02/20/2017 [facility] Aspirin 81 MG Enteric Coated Tablet 81 mg=1 tab, PO, Daily, 0 Refill(s) Active 02/20/2017 [facility] metoprolol tartrate 25 mg oral tablet 12.5 mg=0.5 tab, PO, Q12H, 0 Refill(s) No Longer Active 02/20/2017 [facility] insulin lispro 100 units/mL subcutaneous injection 10 unit, SUB-Q, TID-Before Meals, PRN Blood Glucose Results, 0 Refill(s) No Longer Active 02/20/2017 [facility] Acetaminophen 325 MG / Hydrocodone Bitartrate 7.5 MG Oral Tablet [Oblong 7.5/325] 1 tab, PO, Q4H, PRN Pain Score 4-6, 0 Refill(s) No Longer Active 02/20/2017 [facility] Insulin Glargine 100 UNT/ML Injectable Solution 18 unit, SUB-Q, Daily, 0 Refill(s) No Longer Active 02/20/2017 [facility] aspirin 81 mg tablet, enteric coated 81 mg=1 tab, PO, Daily, 0 Refill(s) On Hold 02/20/2017 [facility] Acetaminophen 325 MG / Hydrocodone Bitartrate 7.5 MG Oral Tablet [Oblong 7.5/325] 1 tab, Route: PO, Drug Form: TAB, Dosing Weight 102.5, kg, Q4H, PRN Pain Score 4-6, Start date: 02/19/17 18:07:00 ARCHITECTURAL SALES CONSULTANT, Duration: 30 day, Stop date: 03/21/17 18:06:00 CSTNotes: Same as Oblong 325-7.5mg Do not exceed 4gm/day of acetaminophen. No Longer Active 02/20/2017 [facility] Potassium Chloride 40 mEq, 2 tab, Route: PO, Drug form: ERTAB, ONCE, Dosing Weight 102.5, kg, Start date: 02/19/17 16:25:00 ARCHITECTURAL SALES CONSULTANT, Stop date: 02/19/17 16:25:00 CSTNotes: (Same as: K-Dur 20) "Do Not Crush" With food and full glass of water Inactive 02/19/2017 [facility] insulin glargine 8 unit, 0.08 mL, Route: SUB-Q, Drug form: SOLN, ONCE, Priority: STAT, Start date: 02/19/17 10:15:00 ARCHITECTURAL SALES CONSULTANT, Stop date: 02/19/17 10:15:00 CSTNotes: (Same as: Lantus) Do not hold insulin without contacting prescriber WASTE: F/P - Black; E - Municipal Trash Bin "single patient use only" Inactive 02/19/2017 [facility] Magnesium Sulfate 2 gm, 50 mL, Route: IVPB, Drug form: INJ, ONCE, Dosing Weight 110.909, kg, Start date: 02/19/17 7:09:00 ARCHITECTURAL SALES CONSULTANT, Stop date: 02/19/17 7:09:00 CSTNotes: WASTE: F/P - Sink; E - Municipal Trash Bin Inactive 02/19/2017 [facility] Morphine 4 mg, 1 mL, Route: IV, Drug form: SOLN, Q4H, Dosing Weight 110.909, kg, PRN Pain Score 6-10, Start date: 02/18/17 13:42:00 ARCHITECTURAL SALES CONSULTANT, Duration: 30 day, Stop date: 03/20/17 13:41:00 CSTNotes: (Same as:MORPhine Sulfate) No Longer Active 02/18/2017 [facility] Levemir 10 unit, Route: SUB-Q, Daily, Dosing Weight 110.909, kg, Start date: 02/18/17 10:30:00 ARCHITECTURAL SALES CONSULTANT, Duration: 30 day, Stop date: 03/20/17 9:00:00 ARCHITECTURAL SALES CONSULTANT Inactive 02/18/2017 [facility] insulin glargine 10 unit, 0.1 mL, Route: SUB-Q, Drug form: SOLN, Daily, Start date: 02/18/17 10:21:00 ARCHITECTURAL SALES CONSULTANT, Duration: 30 day, Stop date: 03/20/17 9:00:00 CSTNotes: (Same as: Lantus) Do not hold insulin without contact ing prescriber WASTE: F/P - Black; E - [employer] Trash Bin "single patient use only" No Longer Active 02/18/2017 [facility] sacubitril 24 MG / valsartan 26 MG Oral Tablet [Entresto] 1 tab, Route: PO, Drug Form: TAB, Dosing Weight 110.909, kg, Q12H, Start date: 02/18/17 9:15:00 ARCHITECTURAL SALES CONSULTANT, Duration: 30 day, Stop date: 03/20/17 9:00:00 CSTNotes: (Same as: Entresto) Avoid in patients with history of angioedema due to STEPHEN inhibitor or ARB therapy. Do not use concomitantly or within 36 hours of STEPHEN inhibitors No Longer Active 02/18/2017 [facility] Potassium Chloride 1.33 MEQ/ML Oral Solution 40 mEq, 30 mL, Route: PO, Drug form: LIQ, ONCE, Dosing Weight 110.909, kg, Start date: 02/18/17 9:03:00 ARCHITECTURAL SALES CONSULTANT, Stop date: 02/18/17 9:03:00 CSTNotes: (Same as: Potassium Chloride) Inactive 02/18/2017 [facility] Alprazolam 0.25 MG Oral Tablet [Xanax] 0.25 mg, 1 tab, Route: PO, Drug form: TAB, Q12H, Dosing Weight 110.909, kg, PRN Anxiety, Start date: 02/17/17 17:24:00 ARCHITECTURAL SALES CONSULTANT, Duration: 30 day, Stop date: 03/19/17 17:23:00 CSTNotes: With food or milk (Same as: Xanax) No Longer Active 02/17/2017 [facility] Lasix 40 mg, 1 tab, Route: PO, Drug form: TAB, BID Diuretic, Dosing Weight 110.909, kg, Start date: 02/16/17 20:00:00 ARCHITECTURAL SALES CONSULTANT, Duration: 30 day, Stop date: 03/18/17 16:00:00 CSTNotes: (Same as: Lasix) May cause GI upset. Give with food or milk. No Longer Active 02/17/2017 [facility] Heparin 30 unit/kg Bolus (Heparin Dosing Weight) Route: IVP, PRN, 2,900 unit, 2.9 mL, Drug form: INJ, PRN, Heparin Protocol, Start date: 02/16/17 19:13:00 ARCHITECTURAL SALES CONSULTANT Stop date: 03/18/17 19:12:00 ARCHITECTURAL SALES CONSULTANT, 30 day No Longer Active 02/17/2017 [facility] Heparin 60 unit/kg Bolus (Heparin Dosing Weight) Route: IVP, PRN, 5,800 unit, 5.8 mL, Drug form: INJ, PRN, Heparin Protocol, Start date: 02/16/17 19:13:00 ARCHITECTURAL SALES CONSULTANT Stop date: 03/18/17 19:12:00 ARCHITECTURAL SALES CONSULTANT, 30 day No Longer Active 02/17/2017 [facility] Heparin - one time bolus for ACS 4,000 unit, 4 mL, Route: IVP, Drug form: INJ, ONCE, Dosing Weight 110.909, kg, Priority: STAT, Start date: 02/16/17 19:13:00 ARCHITECTURAL SALES CONSULTANT, Stop date: 02/16/17 19:13:00 ARCHITECTURAL SALES CONSULTANT Inactive 02/17/2017 [facility] heparin additive 25,000 unit [10.371 unit/kg/hr] + Premix Diluent Dextrose 5% 500 mL 500 mL, Rate: 20 ml/hr, Infuse over: 25 hr, Route: IV, Dosing Weight 96.44 kg, Total Volume: 500 mL, Start date: 02/16/17 19:13:00 ARCHITECTURAL SALES CONSULTANT, Duration: 30 day, Stop date: 03/18/17 19:12:00 ARCHITECTURAL SALES CONSULTANT, 2.28, m2 No Longer Active 02/17/2017 [facility] Ondansetron 4 mg, 2 mL, Route: IVP, Drug form: INJ, Q6H, Dosing Weight 110.909, kg, PRN Nausea, Start date: 02/16/17 14:20:00 ARCHITECTURAL SALES CONSULTANT, Duration: 30 day, Stop date: 03/18/17 14:19:00 CSTNotes: (Same as: Zofran) MEDICATION WASTE Product Size: 4 mg Product Wasted: ___ mg No Longer Active 02/16/2017 [facility] Azithromycin 500 mg, Route: IVPB, [id number], Dosing Weight 97.727, kg, Start date: 02/16/17 13:00:00 ARCHITECTURAL SALES CONSULTANT, Duration: 5 day, Stop date: 02/20/17 13:00:00 ARCHITECTURAL SALES CONSULTANT, ABX Indication: PneumoniaNotes: (Same As: Zithromax IV) No Longer Active 02/16/2017 [facility] Rocephin 1 gm, Route: IVPB, [id number], Dosing Weight 97.727, kg, Start date: 02/16/17 13:00:00 ARCHITECTURAL SALES CONSULTANT, Duration: 5 day, Stop date: 02/20/17 13:00:00 ARCHITECTURAL SALES CONSULTANT, ABX Indication: PneumoniaNotes: (Same As: Rocephin). Use with 100 mL NS and infuse over 30 min MEDICATION WASTE Product Size: 1000 mg Product Wasted: ___ mg No Longer Active 02/16/2017 [facility] Aspirin 81 mg, 1 tab, Route: PO, Drug form: ECTAB, Daily, Dosing Weight 97.727, kg, Start date: 02/16/17 9:00:00 ARCHITECTURAL SALES CONSULTANT, Duration: 30 day, Stop date: 03/17/17 9:00:00 CSTNotes: Do not crush or chew. (Same As: Ecotrin) No Longer Active 02/16/2017 [facility] metoprolol tartrate 12.5 mg, 0.5 tab, Route: PO, Drug form: TAB, Q12H, Dosing Weight 97.727, kg, Start date: 02/15/17 21:00:00 ARCHITECTURAL SALES CONSULTANT, Duration: 30 day, Stop date: 03/17/17 9:00:00 CSTNotes: (Same as: Lopressor) No Longer Active 02/16/2017 [facility] Lipitor 40 mg, 1 tab, Route: PO, Drug form: TAB, Bedtime, Dosing Weight 97.727, kg, Start date: 02/15/17 21:00:00 ARCHITECTURAL SALES CONSULTANT, Duration: 30 day, Stop date: 03/16/17 21:00:00 CSTNotes: (Same as: Lipitor) No Longer Active 02/16/2017 [facility] Morphine 4 mg, 1 mL, Route: IV, Drug form: SOLN, Q6H, Dosing Weight 97.727, kg, PRN Pain Score 6-10, Start date: 02/15/17 18:36:00 ARCHITECTURAL SALES CONSULT[employer], Duration: 30 day, Stop date: 03/17/17 18:35:00 CSTNotes: (Same as:MORPhine Sulfate) No Longer Active 02/16/2017 [facility] Sodium Chloride 0.9% (Bolus) IV 250 mL, 250 ml/hr, Infuse Over: 1 hr, Route: IV, 250, Drug form: INJ, ONCALL, Priority: Routine, Dosing Weight 97.727 kg, Start date: 02/15/17 18:00:00 [employer], Duration: 1 doses or times No Longer Active 02/16/2017 [facility] Sodium Chloride 0.9% IV 750 mL 750 mL, Rate: 75 ml/hr, Infuse over: 10 hr, Route: IV, Dosing Weight 97.727 kg, Total Volume: 750, Start date: 02/15/17 17:59:00 [employer], Duration: 24 hr, Stop date: 02/16/17 17:58:00 [employer], 2.29, m2 No Longer Active 02/15/2017 [facility] Insulin Lispro 8 unit, 0.08 mL, Route: SUB-Q, Drug form: SOLN, TID-Before Meals, Dosing Weight 97.727, kg, PRN Blood Glucose Results, Start date: 02/15/17 14:49:00 [employer], Duration: 30 day, Stop date: 03/17/17 14:48:0 0 CSTNotes: Roll in palms of hands gently; Do not shake `vigorously. (Same as: Humalog ) "Single Patient Use Only " WASTE: F/P - Black; E - Municipal Trash Bin Stable for 28 days at room temperature. Expires in days from Date No Longer Active 02/15/2017 [facility] Glucagon 1 mg, Route: IM, Drug form: PDR/INJ, PRN, Dosing Weight 97.727, kg, PRN Blood Glucose Results, Start date: 02/15/17 14:49:00 [employer], Duration: 30 day, Stop date: 03/17/17 14:48:00 [employer]ANT No Longer Active 02/15/2017 [facility] Dextrose 50% Syringe 25 gm, 50 mL, Route: IVP, Drug Form: INJ, Dosing Weight 97.727, kg, PRN, PRN Blood Glucose Results, Start date: 02/15/17 14:49:00 [employer]ANT, Duration: 30 day, Stop date: 03/17/17 14:48:00 [employer] SALES [employer]SULTANT No Longer Active 02/15/2017 [facility] Ceftriaxone 1 gm, Route: IVPB, ONCE, Dosing Weight 97.727, kg, Priority: STAT, Start date: 02/15/17 11:43:00 [employer] SALES CONSULTANT, Stop date: 02/15/17 11:43:00 [employer] SALES CONSULTANT, ABX Indication: PneumoniaNotes: (Same As: Rocephin). Use with 100 mL NS and infuse over 30 min MEDICATION WASTE Product Size: 1000 mg Product Wasted: ___ mg Inactive 02/15/2017 [facility] Azithromycin 500 mg, Route: IVPB, Drug form: PDR/INJ, ONCE, Dosing Weight 97.727, kg, Priority: STAT, Start date: 02/15/17 11:43:00 [employer] SALES CONSULTANT, Stop date: 02/15/17 11:43:00 [employer] SALES CONSULTANT, ABX Indication: PneumoniaNotes: (Same As: Zithromax IV) Inactive 02/15/2017 [facility] Ondansetron 4 mg, Route: IVP, Drug form: INJ, ONCE, Dosing Weight 97.727, kg, Priority: STAT, Start date: 02/15/17 10:58:00 [employer]CHIT[employer]URAL SALES CONSULTANT, Stop date: 02/15/17 10:58:00 [employer] SALES CONSULTANT Inactive 02/15/2017 [facility] Morphine 4 mg, Route: IVP, ONCE, Dosing Weight 97.727, kg, Priority: STAT, Start date: 02/15/17 10:58:00 [employer]CHIT[employer] SALES CONSULTANT, Stop date: 02/15/17 10:58:00 [employer]IT[employer]URAL SALES CONSULTANT Inactive 02/15/2017 [facility] Aspirin 325 mg, Route: PO, Drug form: TAB, ONCE, Dosing Weight 97.727, kg, Priority: STAT, Start date: 02/15/17 9:50:00 [employer]IT[employer] SALES CONSULTANT, Stop date: 02/15/17 9:50:00 [employer]IT[employer]URAL SALES CONSULTANT Inactive 02/15/2017 [facility] Allergies, Adverse Reactions, Alerts Substance Category Reaction Severity Reaction type Status Date Reported Comments Source Levaquin Assertion Drug allergy Active [facility] Immunizations Immunization Date Given Site Status Last Updated Comments Source pneumococcal 23-valent vaccine 02/20/2017 Right deltoid completed Susan [facility] [place] influenza virus vaccine, inactivated 02/20/2017 Left deltoid completed Susan [facility] [place],[facility] Results Order Name Results Value Reference Range Date Interpretation Comments Source CHEM PANEL Magnesium Lvl 1.4 1.8 - 2.4 10/17/2017 [facility] CHEM PANEL eGFR 57 10/17/2017 Result [...] should be multiplied by the estimated BMI. [facility] CHEM PANEL Globulin 3.6 2.7 - 4.2 10/17/2017 [facility] CHEM PANEL A/G Ratio 0.9 0.7 - 1.6 10/17/2017 [facility] CHEM PANEL ALT 36 0 - 65 10/17/2017 [facility] CHEM PANEL B/C Ratio 19 6 - 25 10/17/2017 [facility] CHEM PANEL Albumin Lvl 3.3 3.5 - 5.0 10/17/2017 [facility] CHEM PANEL Total Protein 6.9 6.4 - 8.4 10/17/2017 [facility] CHEM PANEL Alk Phos 60 39 - 136 10/17/2017 [facility] CHEM PANEL AST 30 0 - 37 10/17/2017 [facility] CHEM PANEL Bili Total 1.5 0.2 - 1.3 10/17/2017 [facility] CHEM PANEL Chloride Lvl 102 95 - 109 10/17/2017 [facility] CHEM PANEL Glucose Lvl 249 70 - 99 10/17/2017 [facility] CHEM PANEL CO2 25 24 - 32 10/17/2017 [facility] CHEM PANEL AGAP 12.7 10.0 - 20.0 10/17/2017 [facility] CHEM PANEL Calcium Lvl 8.7 8.5 - 10.5 10/17/2017 [facility] CHEM PANEL Potassium Lvl 3.7 3.5 - 5.1 10/17/2017 [facility] CHEM PANEL BUN 25 7 - 22 10/17/2017 [facility] CHEM PANEL Sodium Lvl 136 135 - 145 10/17/2017 [facility] CHEM PANEL Creatinine Lvl 1.32 0.50 - 1.40 10/17/2017 [facility] CHEM PANEL Phosphorus 1.9 2.5 - 4.5 10/17/2017 [facility] HEMATOLOGY MPV 8.5 7.4 - 10.4 10/17/2017 [facility] HEMATOLOGY Platelet 180 133 - 450 10/17/2017 [facility] HEMATOLOGY RDW 14.0 11.5 - 14.5 10/17/2017 [facility] HEMATOLOGY MCHC 34.7 32.0 - 36.0 10/17/2017 [facility] HEMATOLOGY MCH 37.9 27.0 - 31.0 10/17/2017 [facility] HEMATOLOGY Hgb 13.8 14.0 - 18.0 10/17/2017 [facility] HEMATOLOGY RBC 3.64 4.70 - 6.10 10/17/2017 [facility] HEMATOLOGY WBC 8.1 3.7 - 10.4 10/17/2017 [facility] HEMATOLOGY MCV 109.2 80.0 - 94.0 10/17/2017 [facility] HEMATOLOGY Hct 39.7 42.0 - 54.0 10/17/2017 [facility] HEMATOLOGY Lymphocytes # 2.1 1.0 - 5.5 10/17/2017 [facility] HEMATOLOGY Eosinophils # 0.2 0.0 - 0.5 10/17/2017 [facility] HEMATOLOGY Monocytes # 1.0 0.0 - 0.8 10/17/2017 [facility] HEMATOLOGY Monocytes 12.7 2.0 - 12.0 10/17/2017 [facility] HEMATOLOGY Lymphocytes 25.7 20.0 - 40.0 10/17/2017 [facility] HEMATOLOGY Eosinophils 2.5 0.0 - 4.0 10/17/2017 [facility] HEMATOLOGY Basophils # 0.1 0.0 - 0.2 10/17/2017 [facility] HEMATOLOGY Neutrophils # 4.7 1.5 - 8.1 10/17/2017 [facility] HEMATOLOGY Basophils 1.1 0.0 - 1.0 10/17/2017 [facility] HEMATOLOGY Segs 58.0 45.0 - 75.0 10/17/2017 [facility] DRUG SCREEN U Amph Scr Positive *ABN* (10/16/17 10:41 AM) Negative 10/16/2017 [facility] DRUG SCREEN U Usha Scr Negative *NA* (10/16/17 10:41 AM) Negative 10/16/2017 [facility] DRUG SCREEN U Cannab Scr Negative *NA* (10/16/17 10:41 AM) Negative 10/16/2017 [facility] DRUG SCREEN U Benzodiaz Scr Negative *NA* (10/16/17 10:41 AM) Negative 10/16/2017 [facility] DRUG SCREEN U Cocaine Scr Negative *NA* (10/16/17 10:41 AM) Negative 10/16/2017 [facility] DRUG SCREEN UDS Note See Note (10/16/17 10:41 AM) 10/16/2017 [facility] DRUG SCREEN U Opiate Scr Positive *ABN* (10/16/17 10:41 AM) Negative 10/16/2017 [facility] DRUG SCREEN U Phencyclidine Scr Negative *NA* (10/16/17 10:41 AM) Negative 10/16/2017 [facility] URINE AND STOOL UA WBC <1 0 - 5 10/16/2017 [facility] URINE AND STOOL UA RBC <1 0 - 2 10/16/2017 [facility] URINE AND STOOL UA Leuk Est Negative (10/16/17 10:41 AM) Negative 10/16/2017 [facility] URINE AND STOOL UA Blood Negative (10/16/17 10:41 AM) Negative 10/16/2017 [facility] URINE AND STOOL UA Nitrite Negative (10/16/17 10:41 AM) Negative 10/16/2017 [facility] URINE AND STOOL UA Ketones 40 mg/dL Negative mg/dL 10/16/2017 [facility] URINE AND STOOL UA Bili Negative *NA* (10/16/17 10:41 AM) Negative 10/16/2017 [facility] URINE AND STOOL UA Glucose 30 mg/dL Negative mg/dL 10/16/2017 [facility] URINE AND STOOL UA Urobilinogen <=1.0 mg/dL 0.1 - 1.0 10/16/2017 [facility] URINE AND STOOL UA Sq Epi None Seen 10/16/2017 [facility] URINE AND STOOL UA Mucus Few /LPF None Seen /LPF 10/16/2017 [facility] URINE AND STOOL UA pH 5.5 5.0 - 8.0 10/16/2017 [facility] URINE AND STOOL UA Spec Grav 1.036 <=1.030 10/16/2017 [facility] URINE AND STOOL UA Protein 10 mg/dL Negative mg/dL 10/16/2017 [facility] URINE AND STOOL UA Color Yellow *NA* (10/16/17 10:41 AM) Yellow 10/16/2017 [facility] URINE AND STOOL UA Turbidity Clear (10/16/17 10:41 AM) Clear 10/16/2017 [facility] CARDIAC ENZYMES Troponin-I <0.02 0.00 - 0.40 10/16/2017 [facility] ANEMIA STUDY Folate Lvl 9.8 >=3.0 ng/mL 10/16/2017 [facility] ANEMIA STUDY Vitamin B12 Lvl 236 254 - 1320 10/16/2017 [facility] CARDIAC ENZYMES Troponin-I <0.02 0.00 - 0.40 10/16/2017 [facility] CHEM PANEL Magnesium Lvl 1.4 1.8 - 2.4 10/16/2017 [facility] CHEM PANEL Phosphorus 3.4 2.5 - 4.5 10/16/2017 [facility] LIPIDS LDL (Calculated) 113 <=99 mg/dL 10/16/2017 [facility] LIPIDS VLDL 33 10/16/2017 [facility] LIPIDS Trig 164 <=149 mg/dL 10/16/2017 [facility] LIPIDS Chol 204 <=199 mg/dL 10/16/2017 [facility] LIPIDS HDL 58 >=61 mg/dL 10/16/2017 [facility] LIPIDS CHD Risk 3.52 4.00 - 7.30 10/16/2017 [facility] SPECIAL CHEMISTRY Hgb A1C 7.8 <=5.6 % 10/16/2017 [facility] CARDIAC ENZYMES Troponin-I <0.02 0.00 - 0.40 10/16/2017 [facility] CARDIAC ENZYMES Total CK 45 12 - 191 10/16/2017 [facility] CHEM PANEL B/C Ratio 16 6 - 25 10/16/2017 [facility] CHEM PANEL AGAP 16.1 10.0 - 20.0 10/16/2017 [facility] CHEM PANEL A/G Ratio 1.0 0.7 - 1.6 10/16/2017 [facility] CHEM PANEL Globulin 3.7 2.7 - 4.2 10/16/2017 [facility] CHEM PANEL Bili Total 0.8 0.2 - 1.3 10/16/2017 [facility] CHEM PANEL eGFR 49 10/16/2017 Result Comment: [...] should be multiplied by the estimated BMI. [facility] CHEM PANEL Alk Phos 59 39 - 136 10/16/2017 [facility] CHEM PANEL AST 55 0 - 37 10/16/2017 [facility] CHEM PANEL ALT 50 0 - 65 10/16/2017 [facility] CHEM PANEL Calcium Lvl 8.8 8.5 - 10.5 10/16/2017 [facility] CHEM PANEL CO2 23 24 - 32 10/16/2017 [facility] CHEM PANEL Chloride Lvl 104 95 - 109 10/16/2017 [facility] CHEM PANEL Potassium Lvl 4.1 3.5 - 5.1 10/16/2017 [facility] CHEM PANEL Albumin Lvl 3.8 3.5 - 5.0 10/16/2017 [facility] CHEM PANEL Total Protein 7.5 6.4 - 8.4 10/16/2017 [facility] CHEM PANEL Glucose Lvl 108 70 - 99 10/16/2017 [facility] CHEM PANEL Creatinine Lvl 1.48 0.50 - 1.40 10/16/2017 [facility] CHEM PANEL BUN 23 7 - 22 10/16/2017 [facility] CHEM PANEL Sodium Lvl 139 135 - 145 10/16/2017 [facility] HEMATOLOGY MPV 8.2 7.4 - 10.4 10/16/2017 [facility] HEMATOLOGY Hgb 14.4 14.0 - 18.0 10/16/2017 [facility] HEMATOLOGY WBC 8.3 3.7 - 10.4 10/16/2017 [facility] HEMATOLOGY RBC 3.82 4.70 - 6.10 10/16/2017 [facility] HEMATOLOGY Hct 42.2 42.0 - 54.0 10/16/2017 [facility] HEMATOLOGY MCV 110.4 80.0 - 94.0 10/16/2017 [facility] HEMATOLOGY RDW 14.1 11.5 - 14.5 10/16/2017 [facility] HEMATOLOGY Platelet 201 133 - 450 10/16/2017 [facility] HEMATOLOGY MCH 37.8 27.0 - 31.0 10/16/2017 [facility] HEMATOLOGY MCHC 34.2 32.0 - 36.0 10/16/2017 [facility] HEMATOLOGY PT 13.7 12.0 - 14.7 10/16/2017 [facility] HEMATOLOGY INR 1.05 0.85 - 1.17 10/16/2017 [facility] HEMATOLOGY PTT 30.3 22.9 - 35.8 10/16/2017 [facility] HEMATOLOGY Eosinophils # 0.2 0.0 - 0.5 10/16/2017 [facility] HEMATOLOGY Basophils # 0.1 0.0 - 0.2 10/16/2017 [facility] HEMATOLOGY Macrocyte 3+ *NA* (10/16/17 1:00 AM) None Seen 10/16/2017 [facility] HEMATOLOGY Monocytes # 0.9 0.0 - 0.8 10/16/2017 [facility] HEMATOLOGY Segs 52.5 45.0 - 75.0 10/16/2017 [facility] HEMATOLOGY Lymphocytes 33.7 20.0 - 40.0 10/16/2017 [facility] HEMATOLOGY Monocytes 10.3 2.0 - 12.0 10/16/2017 [facility] HEMATOLOGY Lymphocytes # 2.8 1.0 - 5.5 10/16/2017 [facility] HEMATOLOGY Eosinophils 2.2 0.0 - 4.0 10/16/2017 [facility] HEMATOLOGY Basophils 1.3 0.0 - 1.0 10/16/2017 [facility] HEMATOLOGY Neutrophils # 4.3 1.5 - 8.1 10/16/2017 [facility] CHEM PANEL eGFR 48 10/16/2017 Result [...] should be multiplied by the estimated BMI. [facility] CHEM PANEL POC Hemoglobin 15.6 14.0 - 18.0 10/16/2017 [facility] CHEM PANEL POC Glucose 113 70 - 99 10/16/2017 [facility] CHEM PANEL POC Ion Ca 1.00 1.05 - 1.25 10/16/2017 [facility] CHEM PANEL POC BUN 24 7 - 22 10/16/2017 [facility] CHEM PANEL POC Creatinine 1.5 0.5 - 1.4 10/16/2017 [facility] CHEM PANEL POC Potassium 4.3 3.5 - 5.1 10/16/2017 [facility] CHEM PANEL POC Chloride 102 95 - 109 10/16/2017 [facility] CHEM PANEL POC Sodium 139 135 - 145 10/16/2017 [facility] CHEM PANEL POC Carbon Dioxide 21 24 - 32 10/16/2017 [facility] CHEM PANEL POC AGAP 20.0 10.0 - 20.0 10/16/2017 [facility] CHEM PANEL POC Hematocrit 46.0 42.0 - 54.0 10/16/2017 [facility] CARDIAC ENZYMES BNP 976 <=100 pg/mL 06/03/2017 [facility] ELECTROLYTES AGAP 12.0 10.0 - 20.0 06/03/2017 [facility] ELECTROLYTES eGFR 46 06/03/2017 Result Comment: The [...] should be multiplied by the estimated BMI. [facility] ELECTROLYTES CO2 29 24 - 32 06/03/2017 [facility] ELECTROLYTES Calcium Lvl 9.7 8.5 - 10.5 06/03/2017 [facility] ELECTROLYTES Potassium Lvl 5.0 3.5 - 5.1 06/03/2017 [facility] ELECTROLYTES Sodium Lvl 139 135 - 145 06/03/2017 [facility] ELECTROLYTES BUN 32 7 - 22 06/03/2017 [facility] ELECTROLYTES Creatinine Lvl 1.57 0.50 - 1.40 06/03/2017 [facility] ELECTROLYTES Chloride Lvl 103 95 - 109 06/03/2017 [facility] ELECTROLYTES Glucose Lvl 159 70 - 99 06/03/2017 [facility] HEMATOLOGY Eosinophils # 0.3 0.0 - 0.5 06/03/2017 [facility] HEMATOLOGY Basophils # 0.2 0.0 - 0.2 06/03/2017 [facility] HEMATOLOGY Lymphocytes # 2.4 1.0 - 5.5 06/03/2017 [facility] HEMATOLOGY Monocytes # 0.9 0.0 - 0.8 06/03/2017 [facility] HEMATOLOGY Basophils 2.5 0.0 - 1.0 06/03/2017 [facility] HEMATOLOGY Segs-Bands # 2.4 1.5 - 8.1 06/03/2017 [facility] HEMATOLOGY Segs 38.6 45.0 - 75.0 06/03/2017 [facility] HEMATOLOGY Monocytes 14.3 2.0 - 12.0 06/03/2017 [facility] HEMATOLOGY Lymphocytes 39.3 20.0 - 40.0 06/03/2017 [facility] HEMATOLOGY Eosinophils 5.3 0.0 - 4.0 06/03/2017 [facility] HEMATOLOGY MCHC 34.1 32.0 - 36.0 06/03/2017 [facility] HEMATOLOGY RDW 16.4 11.5 - 14.5 06/03/2017 [facility] HEMATOLOGY MPV 9.0 7.4 - 10.4 06/03/2017 [facility] HEMATOLOGY MCH 35.2 27.0 - 31.0 06/03/2017 [facility] HEMATOLOGY Platelet 173 133 - 450 06/03/2017 [facility] HEMATOLOGY WBC 6.2 3.7 - 10.4 06/03/2017 [facility] HEMATOLOGY MCV 103.3 80.0 - 94.0 06/03/2017 [facility] HEMATOLOGY Hct 45.8 42.0 - 54.0 06/03/2017 [facility] HEMATOLOGY Hgb 15.6 14.0 - 18.0 06/03/2017 [facility] HEMATOLOGY RBC 4.43 4.70 - 6.10 06/03/2017 [facility] CARDIAC ENZYMES BNP 1307 <=100 pg/mL 04/05/2017 [facility] CHEM PANEL A/G Ratio 0.9 0.7 - 1.6 04/05/2017 [facility] CHEM PANEL AGAP 11.6 10.0 - 20.0 04/05/2017 [facility] CHEM PANEL B/C Ratio 11 6 - 25 04/05/2017 [facility] CHEM PANEL Globulin 4.3 2.7 - 4.2 04/05/2017 [facility] CHEM PANEL eGFR 57 04/05/2017 Result [...] should be multiplied by the estimated BMI. [facility] CHEM PANEL Creatinine Lvl 1.32 0.50 - 1.40 04/05/2017 [facility] CHEM PANEL BUN 14 7 - 22 04/05/2017 [facility] CHEM PANEL Glucose Lvl 178 70 - 99 04/05/2017 [facility] CHEM PANEL Total Protein 8.1 6.4 - 8.4 04/05/2017 [facility] CHEM PANEL AST 20 0 - 37 04/05/2017 [facility] CHEM PANEL Albumin Lvl 3.8 3.5 - 5.0 04/05/2017 [facility] CHEM PANEL Alk Phos 104 39 - 136 04/05/2017 [facility] CHEM PANEL ALT 17 0 - 65 04/05/2017 [facility] CHEM PANEL Calcium Lvl 9.6 8.5 - 10.5 04/05/2017 [facility] CHEM PANEL CO2 28 24 - 32 04/05/2017 [facility] CHEM PANEL Potassium Lvl 4.6 3.5 - 5.1 04/05/2017 [facility] CHEM PANEL Sodium Lvl 137 135 - 145 04/05/2017 [facility] CHEM PANEL Chloride Lvl 102 95 - 109 04/05/2017 [facility] CHEM PANEL Bili Total 0.9 0.2 - 1.3 04/05/2017 [facility] HEMATOLOGY Platelet 204 133 - 450 04/05/2017 [facility] HEMATOLOGY RDW 21.4 11.5 - 14.5 04/05/2017 [facility] HEMATOLOGY MCHC 33.9 32.0 - 36.0 04/05/2017 [facility] HEMATOLOGY MCH 34.4 27.0 - 31.0 04/05/2017 [facility] HEMATOLOGY MCV 101.6 80.0 - 94.0 04/05/2017 [facility] HEMATOLOGY Hct 41.0 42.0 - 54.0 04/05/2017 [facility] HEMATOLOGY WBC 8.0 3.7 - 10.4 04/05/2017 [facility] HEMATOLOGY RBC 4.04 4.70 - 6.10 04/05/2017 [facility] HEMATOLOGY Hgb 13.9 14.0 - 18.0 04/05/2017 [facility] HEMATOLOGY MPV 8.1 7.4 - 10.4 04/05/2017 [facility] HEMATOLOGY Segs-Bands # 4.2 1.5 - 8.1 04/05/2017 [facility] HEMATOLOGY Eosinophils 7.3 0.0 - 4.0 04/05/2017 [facility] HEMATOLOGY Basophils 1.0 0.0 - 1.0 04/05/2017 [facility] HEMATOLOGY Monocytes 16.1 2.0 - 12.0 04/05/2017 [facility] HEMATOLOGY Lymphocytes 22.9 20.0 - 40.0 04/05/2017 [facility] HEMATOLOGY Segs 52.7 45.0 - 75.0 04/05/2017 [facility] HEMATOLOGY Basophils # 0.1 0.0 - 0.2 04/05/2017 [facility] HEMATOLOGY Lymphocytes # 1.8 1.0 - 5.5 04/05/2017 [facility] HEMATOLOGY Monocytes # 1.3 0.0 - 0.8 04/05/2017 [facility] HEMATOLOGY Eosinophils # 0.6 0.0 - 0.5 04/05/2017 [facility] CHEM PANEL eGFR 63 03/07/2017 Result [...] should be multiplied by the estimated BMI. [facility] CHEM PANEL Bili Total 1.1 0.2 - 1.3 03/07/2017 [facility] CHEM PANEL Alk Phos 79 39 - 136 03/07/2017 [facility] CHEM PANEL AST 30 0 - 37 03/07/2017 [facility] CHEM PANEL Albumin Lvl 2.0 3.5 - 5.0 03/07/2017 [facility] CHEM PANEL Total Protein 6.1 6.4 - 8.4 03/07/2017 [facility] CHEM PANEL Calcium Lvl 8.6 8.5 - 10.5 03/07/2017 [facility] CHEM PANEL CO2 27 24 - 32 03/07/2017 [facility] CHEM PANEL ALT 27 0 - 65 03/07/2017 [facility] CHEM PANEL BUN 13 7 - 22 03/07/2017 [facility] CHEM PANEL Potassium Lvl 4.0 3.5 - 5.1 03/07/2017 [facility] CHEM PANEL Sodium Lvl 134 135 - 145 03/07/2017 [facility] CHEM PANEL Chloride Lvl 100 95 - 109 03/07/2017 [facility] CHEM PANEL Glucose Lvl 193 70 - 99 03/07/2017 [facility] CHEM PANEL Creatinine Lvl 1.21 0.50 - 1.40 03/07/2017 [facility] CHEM PANEL A/G Ratio 0.5 0.7 - 1.6 03/07/2017 [facility] CHEM PANEL Globulin 4.1 2.7 - 4.2 03/07/2017 [facility] CHEM PANEL AGAP 11.0 10.0 - 20.0 03/07/2017 [facility] CHEM PANEL B/C Ratio 11 6 - 25 03/07/2017 [facility] HEMATOLOGY Platelet 376 133 - 450 03/07/2017 [facility] HEMATOLOGY RDW 22.2 11.5 - 14.5 03/07/2017 [facility] HEMATOLOGY MPV 9.1 7.4 - 10.4 03/07/2017 [facility] HEMATOLOGY RBC 3.44 4.70 - 6.10 03/07/2017 [facility] HEMATOLOGY Hgb 10.8 14.0 - 18.0 03/07/2017 [facility] HEMATOLOGY WBC 11.3 3.7 - 10.4 03/07/2017 [facility] HEMATOLOGY MCHC 33.5 32.0 - 36.0 03/07/2017 [facility] HEMATOLOGY Hct 32.3 42.0 - 54.0 03/07/2017 [facility] HEMATOLOGY MCH 31.4 27.0 - 31.0 03/07/2017 [facility] HEMATOLOGY MCV 93.7 80.0 - 94.0 03/07/2017 [facility] HEMATOLOGY Polychrom Moderate *ABN* (03/07/17 8:45 AM) None Seen 03/07/2017 [facility] HEMATOLOGY Anisocyte 1+ *ABN* (03/07/17 8:45 AM) None Seen 03/07/2017 [facility] HEMATOLOGY Eosinophils 5.4 0.0 - 4.0 03/07/2017 [facility] HEMATOLOGY Segs-Bands # 6.8 1.5 - 8.1 03/07/2017 [facility] HEMATOLOGY Basophils 0.9 0.0 - 1.0 03/07/2017 [facility] HEMATOLOGY Lymphocytes # 1.9 1.0 - 5.5 03/07/2017 [facility] HEMATOLOGY Monocytes # 1.9 0.0 - 0.8 03/07/2017 [facility] HEMATOLOGY Basophils # 0.1 0.0 - 0.2 03/07/2017 [facility] HEMATOLOGY Eosinophils # 0.6 0.0 - 0.5 03/07/2017 [facility] HEMATOLOGY Plt Morph Normal (03/07/17 8:45 AM) 03/07/2017 [facility] HEMATOLOGY Lymphocytes 16.5 20.0 - 40.0 03/07/2017 [facility] HEMATOLOGY Segs 60.4 45.0 - 75.0 03/07/2017 [facility] HEMATOLOGY Monocytes 16.8 2.0 - 12.0 03/07/2017 [facility] CHEM PANEL Alk Phos 69 39 - 136 03/05/2017 [facility] CHEM PANEL Bili Total 1.0 0.2 - 1.3 03/05/2017 [facility] CHEM PANEL Globulin 3.8 2.7 - 4.2 03/05/2017 [facility] CHEM PANEL Total Protein 6.0 6.4 - 8.4 03/05/2017 [facility] CHEM PANEL AST 28 0 - 37 03/05/2017 [facility] CHEM PANEL A/G Ratio 0.6 0.7 - 1.6 03/05/2017 [facility] CHEM PANEL Albumin Lvl 2.2 3.5 - 5.0 03/05/2017 [facility] CHEM PANEL ALT 30 0 - 65 03/05/2017 [facility] CHEM PANEL eGFR 54 03/05/2017 Result Comment: [...] should be multiplied by the estimated BMI. [facility] CHEM PANEL Creatinine Lvl 1.37 0.50 - 1.40 03/05/2017 [facility] CHEM PANEL Chloride Lvl 99 95 - 109 03/05/2017 [facility] CHEM PANEL Potassium Lvl 4.0 3.5 - 5.1 03/05/2017 [facility] CHEM PANEL Sodium Lvl 132 135 - 145 03/05/2017 [facility] CHEM PANEL B/C Ratio 12 6 - 25 03/05/2017 [facility] CHEM PANEL AGAP 9.0 10.0 - 20.0 03/05/2017 [facility] CHEM PANEL Calcium Lvl 8.2 8.5 - 10.5 03/05/2017 [facility] CHEM PANEL CO2 28 24 - 32 03/05/2017 [facility] CHEM PANEL BUN 16 7 - 22 03/05/2017 [facility] CHEM PANEL Glucose Lvl 223 70 - 99 03/05/2017 [facility] HEMATOLOGY Monocytes # 1.4 0.0 - 0.8 03/05/2017 [facility] HEMATOLOGY Anisocyte 1+ *ABN* (03/05/17 2:37 PM) None Seen 03/05/2017 [facility] HEMATOLOGY Basophils # 0.1 0.0 - 0.2 03/05/2017 [facility] HEMATOLOGY Eosinophils # 0.5 0.0 - 0.5 03/05/2017 [facility] HEMATOLOGY Basophils 0.7 0.0 - 1.0 03/05/2017 [facility] HEMATOLOGY Eosinophils 4.8 0.0 - 4.0 03/05/2017 [facility] HEMATOLOGY Monocytes 12.3 2.0 - 12.0 03/05/2017 [facility] HEMATOLOGY Lymphocytes 18.3 20.0 - 40.0 03/05/2017 [facility] HEMATOLOGY Segs 63.9 45.0 - 75.0 03/05/2017 [facility] HEMATOLOGY Lymphocytes # 2.0 1.0 - 5.5 03/05/2017 [facility] HEMATOLOGY Segs-Bands # 7.1 1.5 - 8.1 03/05/2017 [facility] HEMATOLOGY MPV 9.4 7.4 - 10.4 03/05/2017 [facility] HEMATOLOGY Platelet 326 133 - 450 03/05/2017 [facility] HEMATOLOGY MCHC 33.3 32.0 - 36.0 03/05/2017 [facility] HEMATOLOGY RDW 21.7 11.5 - 14.5 03/05/2017 [facility] HEMATOLOGY MCH 31.0 27.0 - 31.0 03/05/2017 [facility] HEMATOLOGY WBC 11.1 3.7 - 10.4 03/05/2017 [facility] HEMATOLOGY RBC 3.43 4.70 - 6.10 03/05/2017 [facility] HEMATOLOGY Hgb 10.6 14.0 - 18.0 03/05/2017 [facility] HEMATOLOGY Hct 31.9 42.0 - 54.0 03/05/2017 [facility] HEMATOLOGY MCV 93.1 80.0 - 94.0 03/05/2017 [facility] ELECTROLYTES Potassium Lvl 4.5 3.5 - 5.1 03/05/2017 [facility] CHEM PANEL eGFR 62 03/04/2017 Result Comment: [...] should be multiplied by the estimated BMI. [facility] CHEM PANEL Creatinine Lvl 1.23 0.50 - 1.40 03/04/2017 [facility] CHEM PANEL Glucose Lvl 252 70 - 99 03/04/2017 [facility] CHEM PANEL Sodium Lvl 136 135 - 145 03/04/2017 [facility] CHEM PANEL BUN 21 7 - 22 03/04/2017 [facility] CHEM PANEL CO2 30 24 - 32 03/04/2017 [facility] CHEM PANEL Calcium Lvl 8.3 8.5 - 10.5 03/04/2017 [facility] CHEM PANEL Chloride Lvl 101 95 - 109 03/04/2017 [facility] CHEM PANEL AST 29 0 - 37 03/04/2017 [facility] CHEM PANEL Albumin Lvl 2.1 3.5 - 5.0 03/04/2017 [facility] CHEM PANEL Alk Phos 60 39 - 136 03/04/2017 [facility] CHEM PANEL Bili Total 1.3 0.2 - 1.3 03/04/2017 [facility] CHEM PANEL Total Protein 5.8 6.4 - 8.4 03/04/2017 [facility] CHEM PANEL ALT 32 0 - 65 03/04/2017 [facility] CHEM PANEL B/C Ratio 17 6 - 25 03/04/2017 [facility] CHEM PANEL AGAP 8.9 10.0 - 20.0 03/04/2017 [facility] CHEM PANEL Globulin 3.7 2.7 - 4.2 03/04/2017 [facility] CHEM PANEL A/G Ratio 0.6 0.7 - 1.6 03/04/2017 [facility] HEMATOLOGY Lymphocytes 15.8 20.0 - 40.0 03/04/2017 [facility] HEMATOLOGY Segs 62.5 45.0 - 75.0 03/04/2017 [facility] HEMATOLOGY Basophils 0.3 0.0 - 1.0 03/04/2017 [facility] HEMATOLOGY Eosinophils 6.2 0.0 - 4.0 03/04/2017 [facility] HEMATOLOGY Monocytes 15.2 2.0 - 12.0 03/04/2017 [facility] HEMATOLOGY Monocytes # 1.7 0.0 - 0.8 03/04/2017 [facility] HEMATOLOGY Segs-Bands # 6.9 1.5 - 8.1 03/04/2017 [facility] HEMATOLOGY Lymphocytes # 1.8 1.0 - 5.5 03/04/2017 [facility] HEMATOLOGY Eosinophils # 0.7 0.0 - 0.5 03/04/2017 [facility] HEMATOLOGY Anisocyte 1+ *ABN* (03/04/17 10:15 AM) None Seen 03/04/2017 [facility] HEMATOLOGY MPV 9.2 7.4 - 10.4 03/04/2017 [facility] HEMATOLOGY Hgb 10.4 14.0 - 18.0 03/04/2017 [facility] HEMATOLOGY RBC 3.37 4.70 - 6.10 03/04/2017 [facility] HEMATOLOGY WBC 11.1 3.7 - 10.4 03/04/2017 [facility] HEMATOLOGY Platelet 278 133 - 450 03/04/2017 [facility] HEMATOLOGY RDW 21.3 11.5 - 14.5 03/04/2017 [facility] HEMATOLOGY MCHC 33.1 32.0 - 36.0 03/04/2017 [facility] HEMATOLOGY MCH 30.8 27.0 - 31.0 03/04/2017 [facility] HEMATOLOGY MCV 93.1 80.0 - 94.0 03/04/2017 [facility] HEMATOLOGY Hct 31.4 42.0 - 54.0 03/04/2017 [facility] SPECIAL CHEMISTRY Hgb A1C 6.9 <=5.6 % 03/04/2017 [facility] URINE AND STOOL UA Glucose 500mg/dL 03/04/2017 [facility] URINE AND STOOL UA Sq Epi None Seen 03/04/2017 [facility] URINE AND STOOL UA WBC <1 0 - 5 03/04/2017 [facility] URINE AND STOOL UA Blood Negative (03/04/17 2:52 AM) Negative 03/04/2017 [facility] URINE AND STOOL UA Urobilinogen 2.0 0.1 - 1.0 03/04/2017 [facility] URINE AND STOOL UA Nitrite Negative (03/04/17 2:52 AM) Negative 03/04/2017 [facility] URINE AND STOOL UA Leuk Est Negative (03/04/17 2:52 AM) Negative 03/04/2017 [facility] URINE AND STOOL UA Spec Grav 1.009 <=1.030 03/04/2017 [facility] URINE AND STOOL UA pH 7.0 5.0 - 8.0 03/04/2017 [facility] URINE AND STOOL UA Bili Negative *NA* (03/04/17 2:52 AM) Negative 03/04/2017 [facility] URINE AND STOOL UA Protein Negative mg/dL Negative mg/dL 03/04/2017 [facility] URINE AND STOOL UA Ketones Negative mg/dL Negative mg/dL 03/04/2017 [facility] URINE AND STOOL UA Color Yellow *NA* (03/04/17 2:52 AM) Yellow 03/04/2017 [facility] URINE AND STOOL UA Turbidity Clear (03/04/17 2:52 AM) Clear 03/04/2017 [facility] HEMATOLOGY Polychrom Slight 03/03/2017 [facility] HEMATOLOGY Large Plt Moderate *ABN* (03/03/17 9:17 AM) None Seen 03/03/2017 [facility] HEMATOLOGY Macrocyte 1+ *ABN* (03/03/17 9:17 AM) None Seen 03/03/2017 [facility] HEMATOLOGY Basophils # 0.1 0.0 - 0.2 03/03/2017 [facility] SPECIAL CHEMISTRY Hgb A1C 7.2 <=5.6 % 03/03/2017 [facility] ANEMIA STUDY Folate Lvl 11.0 >=3.0 ng/mL 03/02/2017 [facility] ANEMIA STUDY Vitamin B12 Lvl 464 254 - 1320 03/02/2017 [facility] ANEMIA STUDY UIBC 146 110 - 370 03/02/2017 [facility] ANEMIA STUDY TIBC 187 228 - 428 03/02/2017 [facility] ANEMIA STUDY Iron 41 45 - 160 03/02/2017 [facility] ANEMIA STUDY % [place] Fe 22 12 - 57 03/02/2017 [facility] ANEMIA STUDY Ferritin Lvl 613 22 - 275 03/02/2017 [facility] ANEMIA STUDY RBC Folate 893 280 - 791 03/02/2017 [facility] CHEM PANEL Magnesium Lvl 1.8 1.8 - 2.4 03/02/2017 [facility] CHEM PANEL Phosphorus 2.1 2.5 - 4.5 03/02/2017 [facility] HEMATOLOGY Bands 0.0 0.0 - 11.0 03/02/2017 [facility] HEMATOLOGY Polychrom Slight 03/02/2017 [facility] HEMATOLOGY NRBC 1 03/02/2017 [facility] HEMATOLOGY Plt Morph Normal (03/02/17 6:19 AM) 03/02/2017 [facility] HEMATOLOGY Myelocytes 2.0 <=0.0 % 03/02/2017 [facility] HEMATOLOGY Atypical Lymphs 0.0 <=0.0 % 03/02/2017 [facility] BLOOD BANK RESULTS Antibody Scrn Negative (03/01/17 3:59 AM) 03/01/2017 [facility] BLOOD BANK RESULTS ABO/Rh B POS 03/01/2017 [facility] CHEM PANEL Magnesium Lvl 1.9 1.8 - 2.4 03/01/2017 [facility] CHEM PANEL Phosphorus 2.6 2.5 - 4.5 03/01/2017 [facility] HEMATOLOGY PT 17.2 12.0 - 14.7 03/01/2017 [facility] HEMATOLOGY INR 1.40 0.85 - 1.17 03/01/2017 [facility] HEMATOLOGY PTT 34.6 22.9 - 35.8 03/01/2017 [facility] PARATHYROID PROFILE Ca Norm WB 1.19 1.05 - 1.25 03/01/2017 [facility] PARATHYROID PROFILE Ca Ion WB 1.20 1.05 - 1.25 03/01/2017 [facility] CHEM PANEL Procalcitonin Lvl 0.24 0.00 - 0.10 02/28/2017 [facility] CHEM PANEL Bili Direct 0.6 0.0 - 0.3 02/28/2017 [facility] CHEM PANEL Phosphorus 2.4 2.5 - 4.5 02/28/2017 [facility] CHEM PANEL Magnesium Lvl 2.0 1.8 - 2.4 02/28/2017 [facility] CHEM PANEL Lactic Acid Lvl 2.2 0.5 - 2.2 02/28/2017 [facility] HEMATOLOGY PT 17.1 12.0 - 14.7 02/28/2017 [facility] HEMATOLOGY D-Dimer 2.42 02/28/2017 [facility] HEMATOLOGY INR 1.39 0.85 - 1.17 02/28/2017 [facility] HEMATOLOGY Thrombin Time 20.7 15.0 - 21.2 02/28/2017 [facility] HEMATOLOGY PTT 33.6 22.9 - 35.8 02/28/2017 [facility] HEMATOLOGY Fibrinogen Lvl 372 230 - 510 02/28/2017 [facility] PARATHYROID PROFILE Ca Norm WB 1.25 1.05 - 1.25 02/28/2017 [facility] PARATHYROID PROFILE Ca Ion WB 1.22 1.05 - 1.25 02/28/2017 [facility] CHEM PANEL Bili Direct 0.2 0.0 - 0.3 02/27/2017 [facility] CHEM PANEL Plasma Hemoglobin <10 0 - 10 02/27/2017 [facility] CHEM PANEL LDH 392 98 - 192 02/27/2017 [facility] CHEM PANEL Lactic Acid Lvl 1.1 0.5 - 2.2 02/27/2017 [facility] HEMATOLOGY Plt Morph Normal (02/27/17 3:24 AM) 02/27/2017 [facility] HEMATOLOGY Thrombin Time 17.1 15.0 - 21.2 02/27/2017 [facility] HEMATOLOGY PTT 30.8 22.9 - 35.8 02/27/2017 [facility] HEMATOLOGY Fibrinogen Lvl 376 230 - 510 02/27/2017 [facility] HEMATOLOGY D-Dimer 2.28 02/27/2017 [facility] HEMATOLOGY INR 1.36 0.85 - 1.17 02/27/2017 [facility] HEMATOLOGY PT 16.8 12.0 - 14.7 02/27/2017 [facility] PARATHYROID PROFILE Ca Norm WB 1.21 1.05 - 1.25 02/27/2017 [facility] PARATHYROID PROFILE Ca Ion WB 1.23 1.05 - 1.25 02/27/2017 [facility] CHEM PANEL Bili Direct 0.2 0.0 - 0.3 02/26/2017 [facility] CHEM PANEL Plasma Hemoglobin <10 0 - 10 02/26/2017 [facility] CHEM PANEL LDH 333 98 - 192 02/26/2017 [facility] CHEM PANEL Lactic Acid Lvl 1.0 0.5 - 2.2 02/26/2017 [facility] HEMATOLOGY Bands 2.0 0.0 - 11.0 02/26/2017 [facility] HEMATOLOGY Atypical Lymphs 0.0 <=0.0 % 02/26/2017 [facility] HEMATOLOGY D-Dimer 1.29 02/26/2017 [facility] HEMATOLOGY Thrombin Time 17.4 15.0 - 21.2 02/26/2017 [facility] HEMATOLOGY Fibrinogen Lvl 420 230 - 510 02/26/2017 [facility] BLOOD BANK RESULTS Antibody Scrn Negative (02/25/17 2:53 AM) 02/25/2017 [facility] BLOOD BANK RESULTS ABO/Rh B POS 02/25/2017 [facility] CHEM PANEL Bili Indirect 0.6 0.0 - 1.0 02/25/2017 [facility] BLOOD BANK RESULTS RBC product Product available (02/25/17 12:20 AM) 02/25/2017 [facility] BLOOD BANK RESULTS Platelet product Product available (02/25/17 12:20 AM) 02/25/2017 [facility] BLOOD BANK RESULTS FFP product Modification Required (02/25/17 12:20 AM) 02/25/2017 [facility] URINE AND STOOL UA Leuk Est Negative (02/24/17 5:16 PM) Negative 02/24/2017 [facility] URINE AND STOOL UA WBC 2 0 - 5 02/24/2017 [facility] URINE AND STOOL UA RBC 3 0 - 2 02/24/2017 [facility] URINE AND STOOL UA Mucus Few /LPF None Seen /LPF 02/24/2017 [facility] URINE AND STOOL UA Sq Epi None Seen 02/24/2017 [facility] URINE AND STOOL UA Urobilinogen <=1.0 mg/dL 0.1 - 1.0 02/24/2017 [facility] URINE AND STOOL UA Ketones TR 02/24/2017 [facility] URINE AND STOOL UA Nitrite Negative (02/24/17 5:16 PM) Negative 02/24/2017 [facility] URINE AND STOOL UA Glucose 50 mg/dL Negative mg/dL 02/24/2017 [facility] URINE AND STOOL UA Bili Negative *NA* (02/24/17 5:16 PM) Negative 02/24/2017 [facility] URINE AND STOOL UA Blood Negative (02/24/17 5:16 PM) Negative 02/24/2017 [facility] URINE AND STOOL UA Protein 50 mg/dL Negative mg/dL 02/24/2017 [facility] URINE AND STOOL UA Turbidity Clear (02/24/17 5:16 PM) Clear 02/24/2017 [facility] URINE AND STOOL UA Spec Grav 1.017 <=1.030 02/24/2017 [facility] URINE AND STOOL UA Color Yellow *NA* (02/24/17 5:16 PM) Yellow 02/24/2017 [facility] URINE AND STOOL UA pH 8.5 5.0 - 8.0 02/24/2017 [facility] BLOOD BANK RESULTS RBC product Product available (02/24/17 3:46 PM) 02/24/2017 [facility] CHEM PANEL Bili Indirect 0.7 0.0 - 1.0 02/24/2017 [facility] MOLECULAR DIAGNOSTIC Parainfluenza 2 PCR Negative (02/23/17 9:22 PM) Negative 02/24/2017 [facility] MOLECULAR DIAGNOSTIC Parainfluenza 1 PCR Negative (02/23/17 9:22 PM) Negative 02/24/2017 [facility] MOLECULAR DIAGNOSTIC Parainfluenza 3 PCR Negative (02/23/17 9:22 PM) Negative 02/24/2017 [facility] MOLECULAR DIAGNOSTIC Source Parainfluenza Virus PCR [employer] Swab (02/23/17 9:22 PM) 02/24/2017 [facility] MOLECULAR DIAGNOSTIC Adenovirus PCR Negative (02/23/17 9:22 PM) Negative 02/24/2017 [facility] MOLECULAR DIAGNOSTIC Source Adenovirus PCR [employer] Swab (02/23/17 9:22 PM) 02/24/2017 [facility] MOLECULAR DIAGNOSTIC RSV PCR Negative (02/23/17 9:22 PM) Negative 02/24/2017 [facility] MOLECULAR DIAGNOSTIC Influenza B PCR Negative (02/23/17 9:22 PM) Negative 02/24/2017 [facility] MOLECULAR DIAGNOSTIC Source Respiratory Panel PCR [employer] Swab (02/23/17 9:22 PM) 02/24/2017 [facility] MOLECULAR DIAGNOSTIC Influenza A PCR Negative (02/23/17 9:22 PM) Negative 02/24/2017 [facility] BLOOD BANK RESULTS FFP product Product available (02/23/17 7:32 PM) 02/24/2017 [facility] BLOOD BANK RESULTS Platelet product Product available (02/23/17 7:32 PM) 02/24/2017 [facility] BLOOD BANK RESULTS FFP product Product available (02/23/17 7:32 PM) 02/24/2017 [facility] BLOOD BANK RESULTS Platelet product Product available (02/23/17 7:32 PM) 02/24/2017 [facility] BLOOD BANK RESULTS RBC product Product available (02/23/17 7:32 PM) 02/24/2017 [facility] HEMATOLOGY LY30 Hep 0.0 0.0 - 7.5 02/23/2017 [facility] HEMATOLOGY TEG Data See Note (02/23/17 3:15 PM) 02/23/2017 [facility] HEMATOLOGY Coag Index Hep 0.9 -3.0-3.0 - 3.0 02/23/2017 [facility] HEMATOLOGY R-Time Hep 5.7 5.0 - 10.0 02/23/2017 [facility] HEMATOLOGY G-Value Hep 8.9 4.5 - 11.0 02/23/2017 [facility] HEMATOLOGY Max Amp Hep 64.1 50.0 - 70.0 02/23/2017 [facility] HEMATOLOGY Angle Hep 67.5 53.0 - 72.0 02/23/2017 [facility] HEMATOLOGY K-Time Hep 1.6 1.0 - 3.0 02/23/2017 [facility] HEMATOLOGY Macrocyte 1+ *ABN* (02/23/17 3:50 AM) None Seen 02/23/2017 [facility] HEMATOLOGY Plav Effect Plt 160 02/23/2017 [facility] BACTERIAL - SEROLOGY MRSA by PCR Negative (02/22/17 8:26 PM) 02/23/2017 [facility] BLOOD BANK RESULTS Antibody Scrn Negative (02/22/17 8:17 PM) 02/23/2017 [facility] BLOOD BANK RESULTS ABO/Rh B POS 02/23/2017 [facility] HEMATOLOGY Macrocyte 2+ *ABN* (02/22/17 5:21 AM) None Seen 02/22/2017 [facility] CARDIAC ENZYMES BNP 490 <=100 pg/mL 02/20/2017 [facility] HEMATOLOGY Smudge Slight 02/20/2017 [facility] HEMATOLOGY Bands 0.0 0.0 - 11.0 02/20/2017 [facility] HEMATOLOGY Atypical Lymphs 0.0 <=0.0 % 02/20/2017 [facility] HEMATOLOGY Tot Cell Ct 100 02/20/2017 [facility] HEMATOLOGY PTT 55.7 22.9 - 35.8 02/19/2017 [facility] HEMATOLOGY PTT 61.5 22.9 - 35.8 02/19/2017 [facility] HEMATOLOGY INR 1.27 0.85 - 1.17 02/19/2017 [facility] HEMATOLOGY PT 16.0 12.0 - 14.7 02/19/2017 [facility] ELECTROLYTES AGAP 9.5 10.0 - 20.0 02/19/2017 [facility] ELECTROLYTES CO2 32 24 - 32 02/19/2017 [facility] ELECTROLYTES Chloride Lvl 93 95 - 109 02/19/2017 [facility] ELECTROLYTES Calcium Lvl 8.8 8.5 - 10.5 02/19/2017 [facility] ELECTROLYTES eGFR 78 02/19/2017 Result Comment: [...] should be multiplied by the estimated BMI. [facility] ELECTROLYTES Potassium Lvl 3.5 3.5 - 5.1 02/19/2017 [facility] ELECTROLYTES Sodium Lvl 131 135 - 145 02/19/2017 [facility] ELECTROLYTES Creatinine Lvl 1.02 0.50 - 1.40 02/19/2017 [facility] ELECTROLYTES BUN 22 7 - 22 02/19/2017 [facility] ELECTROLYTES Glucose Lvl 281 70 - 99 02/19/2017 [facility] HEMATOLOGY MPV 9.4 7.4 - 10.4 02/19/2017 [facility] HEMATOLOGY RBC 4.16 4.70 - 6.10 02/19/2017 [facility] HEMATOLOGY WBC 7.6 3.7 - 10.4 02/19/2017 [facility] HEMATOLOGY Platelet 167 133 - 450 02/19/2017 [facility] HEMATOLOGY RDW 13.0 11.5 - 14.5 02/19/2017 [facility] HEMATOLOGY MCH 36.6 27.0 - 31.0 02/19/2017 [facility] HEMATOLOGY MCHC 35.0 32.0 - 36.0 02/19/2017 [facility] HEMATOLOGY MCV 104.5 80.0 - 94.0 02/19/2017 [facility] HEMATOLOGY Hct 43.5 42.0 - 54.0 02/19/2017 [facility] HEMATOLOGY Hgb 15.2 14.0 - 18.0 02/19/2017 [facility] CHEM PANEL Magnesium Lvl 1.5 1.8 - 2.4 02/19/2017 [facility] HEMATOLOGY PT 15.4 12.0 - 14.7 02/19/2017 [facility] HEMATOLOGY INR 1.21 0.85 - 1.17 02/19/2017 [facility] HEMATOLOGY PTT 46.1 22.9 - 35.8 02/19/2017 [facility] CARDIAC ENZYMES BNP 648 <=100 pg/mL 02/18/2017 [facility] CHEM PANEL eGFR 76 02/18/2017 Result Comment: [...] should be multiplied by the estimated BMI. [facility] CHEM PANEL Bili Total 1.2 0.2 - 1.3 02/18/2017 [facility] CHEM PANEL Total Protein 6.7 6.4 - 8.4 02/18/2017 [facility] CHEM PANEL Albumin Lvl 2.9 3.5 - 5.0 02/18/2017 [facility] CHEM PANEL Potassium Lvl 3.7 3.5 - 5.1 02/18/2017 [facility] CHEM PANEL Chloride Lvl 94 95 - 109 02/18/2017 [facility] CHEM PANEL Calcium Lvl 9.4 8.5 - 10.5 02/18/2017 [facility] CHEM PANEL Sodium Lvl 133 135 - 145 02/18/2017 [facility] CHEM PANEL CO2 30 24 - 32 02/18/2017 [facility] CHEM PANEL Creatinine Lvl 1.04 0.50 - 1.40 02/18/2017 [facility] CHEM PANEL Glucose Lvl 196 70 - 99 02/18/2017 [facility] CHEM PANEL BUN 26 7 - 22 02/18/2017 [facility] CHEM PANEL AST 44 0 - 37 02/18/2017 [facility] CHEM PANEL ALT 66 0 - 65 02/18/2017 [facility] CHEM PANEL Alk Phos 53 39 - 136 02/18/2017 [facility] CHEM PANEL B/C Ratio 25 6 - 25 02/18/2017 [facility] CHEM PANEL Globulin 3.8 2.7 - 4.2 02/18/2017 [facility] CHEM PANEL AGAP 12.7 10.0 - 20.0 02/18/2017 [facility] CHEM PANEL A/G Ratio 0.8 0.7 - 1.6 02/18/2017 [facility] HEMATOLOGY Platelet 154 133 - 450 02/18/2017 [facility] HEMATOLOGY MPV 9.2 7.4 - 10.4 02/18/2017 [facility] HEMATOLOGY Hgb 16.3 14.0 - 18.0 02/18/2017 [facility] HEMATOLOGY MCHC 34.8 32.0 - 36.0 02/18/2017 [facility] HEMATOLOGY RDW 13.2 11.5 - 14.5 02/18/2017 [facility] HEMATOLOGY MCV 105.9 80.0 - 94.0 02/18/2017 [facility] HEMATOLOGY MCH 36.9 27.0 - 31.0 02/18/2017 [facility] HEMATOLOGY Hct 46.9 42.0 - 54.0 02/18/2017 [facility] HEMATOLOGY RBC 4.43 4.70 - 6.10 02/18/2017 [facility] HEMATOLOGY WBC 9.6 3.7 - 10.4 02/18/2017 [facility] HEMATOLOGY Lymphocytes # 3.4 1.0 - 5.5 02/18/2017 [facility] HEMATOLOGY Monocytes # 1.6 0.0 - 0.8 02/18/2017 [facility] HEMATOLOGY Basophils # 0.1 0.0 - 0.2 02/18/2017 [facility] HEMATOLOGY Eosinophils # 0.2 0.0 - 0.5 02/18/2017 [facility] HEMATOLOGY Segs 45.0 45.0 - 75.0 02/18/2017 [facility] HEMATOLOGY Segs-Bands # 4.3 1.5 - 8.1 02/18/2017 [facility] HEMATOLOGY Macrocyte 1+ *ABN* (02/18/17 7:25 AM) None Seen 02/18/2017 [facility] HEMATOLOGY Monocytes 17.0 2.0 - 12.0 02/18/2017 [facility] HEMATOLOGY Basophils 0.7 0.0 - 1.0 02/18/2017 [facility] HEMATOLOGY Lymphocytes 35.1 20.0 - 40.0 02/18/2017 [facility] HEMATOLOGY Eosinophils 2.2 0.0 - 4.0 02/18/2017 [facility] HEMATOLOGY MPV 9.2 7.4 - 10.4 02/17/2017 [facility] HEMATOLOGY RDW 13.5 11.5 - 14.5 02/17/2017 [facility] HEMATOLOGY Platelet 181 133 - 450 02/17/2017 [facility] HEMATOLOGY MCH 36.3 27.0 - 31.0 02/17/2017 [facility] HEMATOLOGY MCHC 34.2 32.0 - 36.0 02/17/2017 [facility] HEMATOLOGY WBC 8.0 3.7 - 10.4 02/17/2017 [facility] HEMATOLOGY Hgb 16.4 14.0 - 18.0 02/17/2017 [facility] HEMATOLOGY Hct 47.9 42.0 - 54.0 02/17/2017 [facility] HEMATOLOGY MCV 106.3 80.0 - 94.0 02/17/2017 [facility] HEMATOLOGY RBC 4.50 4.70 - 6.10 02/17/2017 [facility] HEMATOLOGY Lymphocytes 30.1 20.0 - 40.0 02/17/2017 [facility] HEMATOLOGY Segs 53.0 45.0 - 75.0 02/17/2017 [facility] HEMATOLOGY Plt Morph Normal (02/17/17 5:44 AM) 02/17/2017 [facility] HEMATOLOGY RBC Morph Normal (02/17/17 5:44 AM) 02/17/2017 [facility] HEMATOLOGY Basophils # 0.1 0.0 - 0.2 02/17/2017 [facility] HEMATOLOGY Monocytes # 1.1 0.0 - 0.8 02/17/2017 [facility] HEMATOLOGY Lymphocytes # 2.4 1.0 - 5.5 02/17/2017 [facility] HEMATOLOGY Eosinophils # 0.2 0.0 - 0.5 02/17/2017 [facility] HEMATOLOGY Segs-Bands # 4.2 1.5 - 8.1 02/17/2017 [facility] HEMATOLOGY Basophils 1.0 0.0 - 1.0 02/17/2017 [facility] HEMATOLOGY Eosinophils 2.1 0.0 - 4.0 02/17/2017 [facility] HEMATOLOGY Monocytes 13.8 2.0 - 12.0 02/17/2017 [facility] HEMATOLOGY Monocytes 12.5 2.0 - 12.0 02/17/2017 [facility] HEMATOLOGY Lymphocytes 18.7 20.0 - 40.0 02/17/2017 [facility] HEMATOLOGY Segs 66.7 45.0 - 75.0 02/17/2017 [facility] HEMATOLOGY Segs-Bands # 5.2 1.5 - 8.1 02/17/2017 [facility] HEMATOLOGY Lymphocytes # 1.5 1.0 - 5.5 02/17/2017 [facility] HEMATOLOGY Eosinophils 1.4 0.0 - 4.0 02/17/2017 [facility] HEMATOLOGY Basophils 0.7 0.0 - 1.0 02/17/2017 [facility] HEMATOLOGY Basophils # 0.1 0.0 - 0.2 02/17/2017 [facility] HEMATOLOGY Eosinophils # 0.1 0.0 - 0.5 02/17/2017 [facility] HEMATOLOGY Monocytes # 1.0 0.0 - 0.8 02/17/2017 [facility] HEMATOLOGY PT 14.1 12.0 - 14.7 02/17/2017 [facility] HEMATOLOGY INR 1.09 0.85 - 1.17 02/17/2017 [facility] CARDIAC ENZYMES BNP 688 <=100 pg/mL 02/16/2017 [facility] CHEM PANEL eGFR 66 02/16/2017 Result Comment: [...] should be multiplied by the estimated BMI. [facility] CHEM PANEL Potassium Lvl 4.3 3.5 - 5.1 02/16/2017 [facility] CHEM PANEL Sodium Lvl 133 135 - 145 02/16/2017 [facility] CHEM PANEL Chloride Lvl 98 95 - 109 02/16/2017 [facility] CHEM PANEL Glucose Lvl 364 70 - 99 02/16/2017 [facility] CHEM PANEL BUN 24 7 - 22 02/16/2017 [facility] CHEM PANEL Creatinine Lvl 1.17 0.50 - 1.40 02/16/2017 [facility] CHEM PANEL Calcium Lvl 9.4 8.5 - 10.5 02/16/2017 [facility] CHEM PANEL CO2 25 24 - 32 02/16/2017 [facility] CHEM PANEL AGAP 14.3 10.0 - 20.0 02/16/2017 [facility] URINE AND STOOL UA Urobilinogen <=1.0 mg/dL 0.1 - 1.0 02/15/2017 [facility] URINE AND STOOL UA Sq Epi None Seen 02/15/2017 [facility] URINE AND STOOL UA Mucus Few /LPF None Seen /LPF 02/15/2017 [facility] URINE AND STOOL UA Sperm Few /HPF None Seen /HPF 02/15/2017 [facility] URINE AND STOOL UA Leuk Est Negative (02/15/17 11:19 AM) Negative 02/15/2017 [facility] URINE AND STOOL UA WBC <1 0 - 5 02/15/2017 [facility] URINE AND STOOL UA RBC 2 0 - 2 02/15/2017 [facility] URINE AND STOOL UA Nitrite Negative (02/15/17 11:19 AM) Negative 02/15/2017 [facility] URINE AND STOOL UA Bili Negative *NA* (02/15/17 11:19 AM) Negative 02/15/2017 [facility] URINE AND STOOL UA Blood Negative (02/15/17 11:19 AM) Negative 02/15/2017 [facility] URINE AND STOOL UA Glucose >=1000 mg/dL Negative mg/dL 02/15/2017 [facility] URINE AND STOOL UA Ketones 40 mg/dL Negative mg/dL 02/15/2017 [facility] URINE AND STOOL UA Spec Grav 1.027 <=1.030 02/15/2017 [facility] URINE AND STOOL UA pH 5.5 5.0 - 8.0 02/15/2017 [facility] URINE AND STOOL UA Protein Negative mg/dL Negative mg/dL 02/15/2017 [facility] URINE AND STOOL UA Color Yellow *NA* (02/15/17 11:19 AM) Yellow 02/15/2017 [facility] URINE AND STOOL UA Turbidity Clear (02/15/17 11:19 AM) Clear 02/15/2017 [facility] CARDIAC ENZYMES Troponin-I 0.02 0.00 - 0.40 02/15/2017 [facility] CARDIAC ENZYMES CK MB 3.7 0.5 - 3.6 02/15/2017 [facility] CARDIAC ENZYMES Total CK 104 12 - 191 02/15/2017 [facility] CARDIAC ENZYMES CK MB Index 3.6 0.0 - 2.5 02/15/2017 [facility] CHEM PANEL Lactic Acid Lvl 1.9 0.5 - 2.2 02/15/2017 [facility] CHEM PANEL A/G Ratio 0.8 0.7 - 1.6 02/15/2017 [facility] CHEM PANEL Total Protein 7.6 6.4 - 8.4 02/15/2017 [facility] CHEM PANEL Albumin Lvl 3.4 3.5 - 5.0 02/15/2017 [facility] CHEM PANEL Alk Phos 71 39 - 136 02/15/2017 [facility] CHEM PANEL Bili Total 1.4 0.2 - 1.3 02/15/2017 [facility] CHEM PANEL B/C Ratio 21 6 - 25 02/15/2017 [facility] CHEM PANEL Globulin 4.2 2.7 - 4.2 02/15/2017 [facility] CHEM PANEL ALT 58 0 - 65 02/15/2017 [facility] CHEM PANEL AST 37 0 - 37 02/15/2017 [facility] Pathology Reports No Data Provided for [...] posterior fossa arachnoid cyst. SL: [id number] 10/16/2017 [facility] Chest 1view DX EXAM: XR CHEST [...] No acute cardiopulmonary abnormality. SL: [id number] 10/16/2017 [facility] Brain wo contrast CT Clinical Indication: [...] chronic microvascular ischemic changes. SL: JANE 10/16/2017 [facility] Brain/Neck CTA Clinical Indication: Vertigo. Comparison: [...] carotid or vertebrobasilar circulations. SL: JANE 10/16/2017 [facility] Tib Fib wo contrast CT Exam: Left Tib Fib wo contrast CT Clinical indication: I70.213 Atherosclerosis of [place] arteries of extremities with intermittent claudication, bilateral [...] abscess. 2. No acute osseous abnormality. SL: [id number] 04/24/2017 [facility] Tibia fibula series DX Examination: Left Tibia [...] tibia or fibula is identified. 04/13/2017 [facility] Ext Artery Single Level Bilat US Clinical Indication: - I70.213 Atherosclerosis of [place] arteries of extremities with intermittent claudication, bilateral [...] EXTREMITY: Left ankle-brachial index deferred by the sidehand due to the presence of superficial venous [...] confirmation at the time of dictation. SL: [id number] 04/13/2017 [facility] Arterial Doppler bilat US Clinical Indication: - I70.213 Atherosclerosis of [place] arteries of extremities with intermittent claudication, bilateral [...] EXTREMITY: Left ankle-brachial index deferred by the sidehand due to the presence of superficial venous [...] confirmation at the time of dictation. SL: [id number] 04/13/2017 [facility] Chest 1view DX EXAM: XR CHEST 1 VIEW DATE: 03/04/2017 9:05 AM [employer] INDICATION: - dyspnea COMPARISON: 03/03/2017 TECHNIQUE: AP [...] pneumonia. 2. Trace bilateral pleural effusions. 03/04/2017 [facility] Chest 1view DX EXAM: XR CHEST 1 VIEW DATE: 03/03/2017 3:00 AM [employer] INDICATION: Shortness of Breath - SOB. FINDINGS: Comparison is made to yesterday. The cardiomediastinal silhouette and postoperative changes are stable. A patchy left retrocardiac opacity could be due to atelectasis and/or pneumonia. There is mild right perihilar subsegmental atelectasis. No pleural effusions are identified. Impression: No significant change. 03/03/2017 [facility] Chest 1view DX EXAM: XR CHEST 1 [...] compared to the radiograph of 03/01/2017. 03/02/2017 [facility] Chest 1view DX EXAM: XR CHEST 1 VIEW DATE: 03/01/2017 3:00 AM [employer] INDICATION: Shortness of Breath - SOB COMPARISON: 02/28/2017 TECHNIQUE: AP chest FINDINGS: Lines, tubes and hardware: Interval removal of the right IJ [place] catheter seen with its sheath remaining in [...] 1. Interval removal of the right IJ [place] catheter with its sheath remaining in the right IJ. 2. Otherwise, no significant interval change compared to the prior study. 03/01/2017 [facility] Chest 1view DX EXAM: XR CHEST 1 VIEW DATE: 02/28/2017 INDICATION: Tube placement/removal/reposition - POST OP . Comparison is made with yesterday FINDINGS: Cardiomediastinal silhouette, postoperative changes and [place]leg catheter are unchanged. Bilateral pleural effusions are [...] clear IMPRESSION: Increasing left retrocardiac opacity. 02/28/2017 [facility] Chest 1view DX EXAM: XR CHEST 1 VIEW DATE: 02/27/2017 at 1245 hours INDICATION: - chest tube removal . Comparison is made with radiograph 9 hours earlier today FINDINGS: The mediastinal drain and a left-sided chest tube have been removed. Cardiomediastinal silhouette, sternotomy wires and [place] catheter are unchanged. No pneumothorax is visualized [...] in order to exclude small pneumothoraces.. 02/27/2017 [facility] Chest 1view DX EXAM: XR CHEST 1 [...] change when compared to prior radiograph. 02/27/2017 [facility] Chest 1view DX EXAM: XR CHEST 1 VIEW DATE: 02/26/2017 6:19 PM [employer] INDICATION: - postion of mediastinal chest tube COMPARISON: 02/26/2017 chest radiograph at 1039 hours TECHNIQUE: AP chest FINDINGS: Lines, tubes and hardware: Interval removal of the right-sided chest tube. The [place] catheter, mediastinal tube, left chest tube, and median sternotomy wires are unchanged. Lungs and pleura: No definite pneumothorax is identified. Mild bibasilar hazy opacities, more prominent on the left. Heart and mediastinum: The cardiomediastinal silhouette is stable. IMPRESSION: 1. Interval removal of a right-sided chest tube. 2. No radiographically evident pneumothorax is identified. [place] SECTION: Chest 02/26/2017 [facility] 1view DX EXAM: XR CHEST 1 VIEW DATE: 02/26/2017 10:21 AM [employer] INDICATION: - s/p chest tube removal COMPARISON: [...] change compared to the prior study. 02/26/2017 [facility] DX EXAM: XR CHEST 1 VIEW DATE: 02/26/2017 7:56 AM [employer]ANT INDICATION: - pulled chest tube COMPARISON: Semierect [...] mediastinal drains. Remaining findings are unchanged. 02/26/2017 [facility] DX EXAM: XR CHEST 1 VIEW DATE: 02/26/2017 3:00 AM [employer]ANT INDICATION: Tube placement/removal/reposition - POST OP COMPARISON: [...] and tubes grossly stable in position. 02/26/2017 [facility] Abdomen AP DX EXAM: XR ABDOMEN 1 [...] wires. * EKG leads. * Partially visualized [place]leg catheter. Other: No other changes. IMPRESSION: 1. Tube positions as above. 02/25/2017 [facility] Chest 2 views DX EXAM: XR CHEST 1 VIEW DATE: 02/25/2017 4:49 PM [employer]ANT INDICATION: protocol closure - protocol closure COMPARISON: 02/25/2017 TECHNIQUE: AP chest FINDINGS/ IMPRESSION: Compared to the prior examination there is redemonstration of life support lines including a [place]leg catheter with tip in the main pulmonary [...] tubes. There is no pneumothorax seen. 02/25/2017 [facility] 1 v for Placement DX Chest [...] IABP. Otherwise, no significant interval change. 02/25/2017 [facility] Chest 1 v for Placement DX Chest [...] shows it has since been advanced. 02/25/2017 [facility] DX EXAM: XR CHEST 1 VIEW DATE: 02/25/2017 10:06 AM ARCHITECTURAL SALES CONSULTANT INDICATION: - preop COMPARISON: 02/24/2017 TECHNIQUE: AP chest FINDINGS: Lines, tubes and hardware: Slight interval retraction of the right IJ [place] catheter seen with its tip in the [...] Slight interval retraction of the right IJ [place]Oleg catheter with its tip projecting over the right main coronary artery. 3. Mild bibasilar atelectasis. 02/25/2017 [facility] Chest 1view DX EXAM: XR CHEST 1 [...] change when compared to prior radiograph. 02/24/2017 [facility] Chest 1view DX EXAM: XR CHEST 1 VIEW DATE: 02/23/2017 6:24 PM ARCHITECTURAL SALES CONSULTANT INDICATION: - Post op COMPARISON: 02/23/2017 at 1725 hours TECHNIQUE: AP chest IMPRESSION: 1. Lines and tubes are stable compared to previous study. 2. Cardiomediastinal silhouette is enlarged, unchanged. 3. Diminished lung volumes bilaterally with bibasilar subsegmental platelike atelectatic changes and prominent lung vasculature. 4. Small amount of left pleural effusion is noted. 5. Osseous structures are stable. 02/23/2017 [facility] Chest 2 views DX EXAM: XR CHEST 2 views DATE: 02/23/2017 5:20 PM ARCHITECTURAL SALES CONSULTANT INDICATION: INCORRECT INSTRUMENT COUNT/TOO MANY INSTRUMENTS/EXTRA SCISSORS AND CHEST TUBE PASSER - INCORRECT INSTRUMENT COUNT/TOO MANY INSTRUMENTS/EXTRA SCISSORS AND CHEST TUBE PASSER COMPARISON: 02/22/2017 TECHNIQUE: AP and Lateral chest radiographs IMPRESSION: 1. Post sternotomy surgical changes with interval placement of endotracheal tube with the tip terminates 4.3 cm above the charo. Interval placement of right IJV [place]Oleg catheter with tip projects over the main [...] of left pleural effusion is noted. 02/23/2017 [facility] Chest 1view DX EXAM: XR CHEST 1 VIEW DATE: 02/22/2017 1:31 PM ARCHITECTURAL SALES CONSULTANT INDICATION: - cough. FINDINGS: Comparison is made [...] Small bilateral pleural effusions have decreased. 02/22/2017 [facility] Cardiac Function Complete MRI EXAM: MR HEART WITHOUT AND WITH CONTRAST DATE: 02/20/2017 1:58 PM ARCHITECTURAL SALES CONSULTANT INDICATION: NSTEMI, Coronary artery disease. ADDITIONAL INFORMATION: [...] imaging sequences. Alex Broussard et. al. 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 Cardiomediastinal silhouette is upper limit of normal size. 2. Bilateral nlrkc-op-blrtqeot pleural effusions with bibasilar subsegmental atelectatic changes. 3. Osseous structures are stable. 02/20/2017 [facility] Chest 2 views DX Patient Name: ANKUR WISE : 1955; Age: 61 years y/o Male MR: [id number] Study: CHEST 2 VIEWS DX 02/18/2017 1:04 PM ARCHITECTURAL SALES CONSULTANT Ordering Physician: Perry Read MD Clinical Indication: [...] lungs are clear. SL: ROSA ISELA 02/18/2017 [facility] Carotid artery Doppler bilat US Clinical [...] low, or Variable undetectable SL: [id number] 02/18/2017 [facility] Chest 1view DX Clinical Indication: chest pain [...] pneumonia and small bilateral pleural effusions. SL: [id number] 02/15/2017 [facility] Consultation Notes No Data Provided for This Section Discharge Summaries No Data Provided for This Section History and Physicals No Data Provided for This Section Vital Signs Vital Sign Value Date Comments Source Respitory Rate 15 10/17/2017 [facility] Systolic (mm Hg) 124 10/17/2017 [facility] Diastolic (mm Hg) 86 10/17/2017 [facility] Heart Rate 102 10/17/2017 [facility] Temperature Oral (F) 97.7 F 10/17/2017 [facility] Systolic (mm Hg) 125 10/17/2017 [facility] Diastolic (mm Hg) 79 10/17/2017 [facility] Heart Rate 92 10/17/2017 [facility] Respitory Rate 15 10/17/2017 [facility] Temperature Oral (F) 99 F 10/17/2017 [facility] Temperature Oral (F) 98.7 F 10/17/2017 [facility] Heart Rate 91 10/17/2017 [facility] Respitory Rate 18 10/17/2017 [facility] Systolic (mm Hg) 127 10/17/2017 [facility] Diastolic (mm Hg) 79 10/17/2017 [facility] Weight 100.909 10/16/2017 [facility] Height 193.04 cm 10/16/2017 [facility] BMI Calculated 27.08 10/16/2017 [facility] Weight 113.636 10/16/2017 [facility] BMI Calculated 33.05 10/16/2017 [facility] Height 185.42 cm 10/16/2017 [facility] BMI Calculated 30.98 08/31/2017 [facility] Weight 115.455 08/31/2017 [facility] Height 193.04 cm 08/31/2017 [facility] Height 193.04 cm 08/19/2017 [facility] Weight 100 08/19/2017 [facility] BMI Calculated 26.84 08/19/2017 [facility] Respitory Rate 18 08/19/2017 [facility] Heart Rate 94 08/19/2017 [facility] Systolic (mm Hg) 82 08/19/2017 [facility] Diastolic (mm Hg) 60 08/19/2017 [facility] BMI Calculated 26.47 06/03/2017 [facility] Height 193.04 cm 06/03/2017 [facility] Weight 98.636 06/03/2017 [facility] Systolic (mm Hg) 131 06/03/2017 [facility] Diastolic (mm Hg) 84 06/03/2017 [facility] Heart Rate 89 06/03/2017 [facility] Respitory Rate 18 06/03/2017 [facility] Height 193.04 cm 06/03/2017 [facility] BMI Calculated 26.47 06/03/2017 [facility] Weight 98.636 06/03/2017 [facility] Weight 99.545 05/20/2017 [facility] BMI Calculated 26.71 05/20/2017 [facility] Height 193.04 cm 05/20/2017 [facility] Systolic (mm Hg) 140 05/20/2017 [facility] Diastolic (mm Hg) 88 05/20/2017 [facility] Respitory Rate 18 05/20/2017 [facility] Heart Rate 72 05/20/2017 [facility] BMI Calculated 25.86 04/13/2017 [facility] Systolic (mm Hg) 108 04/13/2017 [facility] Diastolic (mm Hg) 70 04/13/2017 [facility] Heart Rate 84 04/13/2017 [facility] Temperature Oral (F) 96.4 F 04/13/2017 [facility] Respitory Rate 18 04/13/2017 [facility] Weight 96.364 04/13/2017 [facility] Height 193.04 cm 04/13/2017 [facility] Height 193.04 cm 04/05/2017 [facility] Heart Rate 80 04/05/2017 [facility] Temperature Oral (F) 96.8 F 04/05/2017 [facility] Respitory Rate 20 04/05/2017 [facility] Systolic (mm Hg) 158 04/05/2017 [facility] Diastolic (mm Hg) 90 04/05/2017 [facility] Temperature Oral (F) 97.0 F 03/17/2017 [facility] Heart Rate 101 03/17/2017 [facility] Systolic (mm Hg) 126 03/17/2017 [facility] Diastolic (mm Hg) 80 03/17/2017 [facility] BMI Calculated 25.49 03/17/2017 [facility] Weight 95 03/17/2017 [facility] Height 193.04 cm 03/17/2017 [facility] Temperature Oral (F) 97.0 F 03/17/2017 [facility] Systolic (mm Hg) 126 03/17/2017 [facility] Diastolic (mm Hg) 80 03/17/2017 [facility] Respitory Rate 20 03/17/2017 [facility] Heart Rate 101 03/17/2017 [facility] Systolic (mm Hg) 134 03/07/2017 [facility] Diastolic (mm Hg) 89 03/07/2017 [facility] Respitory Rate 18 03/07/2017 [facility] Respitory Rate 19 03/07/2017 [facility] Systolic (mm Hg) 137 03/07/2017 [facility] Diastolic (mm Hg) 76 03/07/2017 [facility] Systolic (mm Hg) 114 03/07/2017 [facility] Diastolic (mm Hg) 72 03/07/2017 [facility] Temperature Oral (F) 98 F 03/07/2017 [facility] Respitory Rate 17 03/07/2017 [facility] Temperature Oral (F) 97.6 F 03/07/2017 [facility] Temperature Oral (F) 96.8 F 03/07/2017 [facility] Height 193.04 cm 02/26/2017 [facility] Height 193.04 cm 02/26/2017 [facility] Height 193.04 cm 02/26/2017 [facility] Heart Rate 73 02/23/2017 [facility] Heart Rate 66 02/23/2017 [facility] Heart Rate 73 02/23/2017 [facility] Weight 100.909 02/20/2017 [facility] BMI Calculated 27.08 02/20/2017 [facility] Temperature Oral (F) 98 F 02/20/2017 [facility] Heart Rate 73 02/20/2017 [facility] Systolic (mm Hg) 101 02/20/2017 [facility] Diastolic (mm Hg) 66 02/20/2017 [facility] Respitory Rate 18 02/20/2017 [facility] Systolic (mm Hg) 101 02/20/2017 [facility] Diastolic (mm Hg) 67 02/20/2017 [facility] Respitory Rate 18 02/20/2017 [facility] Temperature Oral (F) 97.7 F 02/20/2017 [facility] Heart Rate 75 02/20/2017 [facility] Heart Rate 77 02/19/2017 [facility] Respitory Rate 18 02/19/2017 [facility] Systolic (mm Hg) 101 02/19/2017 [facility] Diastolic (mm Hg) 67 02/19/2017 [facility] Temperature Oral (F) 97.6 F 02/19/2017 [facility] Weight 102.5 02/19/2017 [facility] Height 193.04 cm 02/16/2017 [facility] BMI Calculated 29.76 02/16/2017 [facility] Weight 110.909 02/16/2017 [facility] Weight 97.727 02/15/2017 [facility] Height 193.04 cm 02/15/2017 [facility] BMI Calculated 26.23 02/15/2017 [facility] Encounters Location Location Details Encounter Type Encounter Number Reason For Visit Attending Provider ADM Date DC Date Status Source [facility] Inpatient [id number] Perry Jacek 02/15/2017 02/19/2017 [facility] Inpatient [id number] Adam Roseanne 02/20/2017 03/07/2017 [facility] Outpatient [id number] Mauricio Puentes 03/17/2017 03/18/2017 [facility] Outpatient [id number] Nicky Marte 03/25/2017 03/25/2017 [facility] Outpatient [id number] Adam Roseanne 04/05/2017 04/06/2017 [facility] Outpatient [id number] Adam Roseanne 04/05/2017 04/06/2017 [facility]patient Imaging [facility] [id number] Adam Roseanne 04/13/2017 04/14/2017 [facility] Outpatient [id number] Contreras Baires 04/13/2017 04/14/2017 [facility] [place] [facility] [id number] Adam Roseanne 04/16/2017 04/16/2017 [facility] [place] [facility] Outpatient [facility] [id number] Adam Roseanne 04/24/2017 04/25/2017 [facility] Outpatient [id number] Adam Roseanne 05/20/2017 05/21/2017 [facility] Outpatient [id number] Adam Roseanne 06/03/2017 06/04/2017 [facility] Outpatient [id number] Adam Roseanne 06/03/2017 06/04/2017 [facility] Outpatient [id number] Adam Roseanne 08/19/2017 08/20/2017 [facility] Outpatient [id number] Adam Roseanne 08/31/2017 09/01/2017 [facility] Observation [id number] Alfonzo Triplettgrazyna 10/16/2017 10/17/2017 [facility] Outpatient [id number] Adam Cronin 11/08/2017 11/08/2017 [facility] Procedures Procedure Code Date Perfomer Comments Source CABG x 5 - Coronary artery bypass grafts x 5 [id number] 02/23/2017 [facility] [place] CABG x 5 - Coronary artery bypass grafts x 5 [id number] 02/23/2017 [facility] CABG x 5 - Coronary artery bypass grafts x 5 [id number] 02/23/2017 [facility] Biliary lithotripsy [id number] [facility] Partial resection of colon [id number] [facility] PCL - Percutaneous lithotripsy of renal calculus [id number] [facility] Placement of stent in cardiac conduit [id number] [facility] Biliary lithotripsy [id number] [facility] Partial resection of colon [id number] [facility] PCL - Percutaneous lithotripsy of renal calculus [id number] [facility] Placement of stent in cardiac conduit [id number] [facility] Biliary lithotripsy [id number] [facility] of [id number]ri[facility] of renal calculus [id number] [facility] Placement of stent in cardiac conduit [id number] [facility] Biliary lithotripsy [id number] [facility] [place] Partial resection of colon [id number] [facility] [place] PCL - Percutaneous lithotripsy of renal calculus [id number] [facility] [place] Placement of stent in cardiac conduit [id number] [facility] [place] Assessment and Plan [...] PMH significant for hypertension, type 2 diabetes idv-xavadqt-ipvlsirnz, CAD status post CABG earlier this year, [...] history significant for hypertension, type 2 diabetes zsr-hcinznb-llonmkufy, CAD status post CABG earlier this year, [...] obtain orthostatic vitals, echocardiogram, trend troponins, consultation systems project manager Dr. Roseanne Figueroa, as above, PT eval Dehydration due to decreased fluid intake, rehydrate gently given Acute kidney injury on CKD3 rehydrate gently CHF, systolic with EF of less than 35%, not in acute exacerbation Hypertension, permissive hypertension for now, will follow up with neurology recommendations Type 2 diabetes jbg-dvopixc-wawljckkf, check hemoglobin A1c Prophylaxis, SCDs 10/17/2017 [facility] Extracted from:Title: HF Surgery Author: Jeronimo [...] PMHX HTN, HLD who was transferred to [facility] for CABG in the setting of [...] course Martha Siddiqui Cardiovascular Disease Fellow Pager [phone] Cardiology Attending Attestation: I have seen and examined the patient with Dr. Shin on 02/20/17. I have reviewed all the clinical information, lab investigation and imaging data. I agree with the above findings, assessment and plan. 03/07/2017 [facility] Extracted from:Title: Cardiology Progress Note Author: Adam [...] agreed for CABG and wants this at [facility] [place] [place]. Will transfer to [facility] [place] [place] for CABG with Dr Saez. 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 Will continue current dose of lasix at 40 mg PO BID 02/19/2017 [facility] Plan of Care No Data Provided for This Section Social History Social History Date Source Social History TypeResponse Alcohol Type Wine. Frequency: 1-2 times per year. Smoking Status Never smoker; Ready to change: No; Concerns about tobacco use in household: No; Exposure to Tobacco Smoke None; Cigarette Smoking Last 365 Days No; Reg Smoking Cessation Counseling No entered on: 10/16/17 02/16/2017 [facility] TypeResponse Alcohol Type Wine. Frequency: 1-2 times per year. Smoking Status Never smoker; Ready to change: No; Concerns about tobacco use in household: No; Exposure to Tobacco Smoke None; Cigarette Smoking Last 365 Days No; Reg Smoking Cessation Counseling No entered on: 10/16/17 02/16/2017 [facility] Social History TypeResponse Alcohol Type Wine. Frequency: 1-2 times per year. Smoking Status Never smoker; Ready to change: No; Concerns about tobacco use in household: No; Exposure to Tobacco Smoke None; Cigarette Smoking Last 365 Days No; Reg Smoking Cessation Counseling No entered on: 06/03/17 [facility] Social History TypeResponse Alcohol Type Wine. Frequency: 1-2 times per year. Smoking Status Never smoker; Ready to change: No; Concerns about tobacco use in household: No; Exposure to Tobacco Smoke None; Cigarette Smoking Last 365 Days No; Reg Smoking Cessation Counseling No entered on: 10/16/17 02/16/2017 [facility] [place] Family History No Data Provided for This Section Advance Directives No Data Provided for This Section Functional Status No Data Provided for This Section
--- NOTE | 2018-09-13 16:41 | NUR ---
Patient admitted to unit from Dr. Delacruz's office. Patient arrived via wheelchair. Patient is AAOx3. Admitted for right thigh cellulitis. Warm redness noted to area and dark northway area in middle. Patient supposed to have an I&D in the am. Lung walls clear to auscultation. Bowel sounds present x4. No edema noted. Left AC IV started. Patient c/o 10/10 pain and prn pain meds given
[2018-09-13 17:13] VITALS: BP 149/79
[2018-09-13] MEDS: HYDROMORPHONE 1MG/1ML INJ IV PRN ×2 (17:28→20:31)
[2018-09-13] MEDS: ONDANSETRON HCL INJ 2MG/ML 2ML 2 MG/ML VIAL IV PRN (17:29)
[2018-09-13 17:44] LABS: BASOPHILS # (AUTO) 0.1 (0.0-0.1); BASOPHILS % 1.1 % (0.0-1.0); EOSINOPHILS # (AUTO) 0.1 (0.0-0.4); EOSINOPHILS % 1.4 % (0.0-6.0); HEMATOCRIT 44.9 % (38.2-49.6); HEMOGLOBIN 15.8 g/dL (14.0-18.0); LYMPHOCYTES # (AUTO) 2.1 (1.0-3.2); LYMPHOCYTES % 22.6 % (18.0-39.1); MEAN CORPUSCULAR HEMOGLOBIN 35.9 pg (28-32); MEAN CORPUSCULAR HGB CONC 35.2 g/dL (31-35); MONOCYTES # (AUTO) 1.4 (0.2-0.8); MONOCYTES % 14.5 % (4.4-11.3); NEUTROPHILS # (AUTO) 5.7 (2.1-6.9); NEUTROPHILS % 59.7 % (38.7-80.0); PLATELET COUNT 252 x10e3/uL (140-360); RED CELL DISTRIBUTION WIDTH 13.2 % (11.7-14.4)
[2018-09-13 18:01] LABS: ALBUMIN 3.3 g/dL (3.5-5.0); ALBUMIN/GLOBULIN RATIO 0.7 (0.8-2.0); ANION GAP 16.5 mmol/L (8-16); CREATININE, SERUM 1.81 mg/dL (0.72-1.25); POTASSIUM 4.5 mmol/L (3.5-5.1)
[2018-09-13] MEDS: SODIUM CHLORIDE 0.9% 1000ML 1,000 ML IV SCH (18:02)
[2018-09-13] MEDS: VANCOMYCIN 1GM/NS 250 ML 250 ML IV SCH (18:02)
[2018-09-13 18:07] VITALS: BP 149/79
[2018-09-13] MEDS: HYDROCODONE/APAP 7.5MG-325MG 1 EA TAB PO PRN (19:31)
[2018-09-13 20:13] VITALS: BP 151/73
[2018-09-14] VITALS (7 sets, daily range): BP systolic 112–156; BP diastolic 64–78
[2018-09-14] MEDS: HYDROMORPHONE 1MG/1ML INJ IV PRN ×7 (00:42→22:42)
[2018-09-14] MEDS: VANCOMYCIN 1GM/NS 250 ML 250 ML IV SCH ×2 (05:20→17:00)
[2018-09-14 05:54] LABS: BASOPHILS # (AUTO) 0.1 (0.0-0.1); EOSINOPHILS # (AUTO) 0.3 (0.0-0.4); EOSINOPHILS % 3.5 % (0.0-6.0); HEMATOCRIT 39.6 % (38.2-49.6); HEMOGLOBIN 13.6 g/dL (14.0-18.0); LYMPHOCYTES # (AUTO) 3.2 (1.0-3.2); LYMPHOCYTES % 39.2 % (18.0-39.1); MEAN CORPUSCULAR HEMOGLOBIN 35.8 pg (28-32); MEAN CORPUSCULAR HGB CONC 34.3 g/dL (31-35); MEAN CORPUSCULAR VOLUME 104.2 fL (81-99); MONOCYTES # (AUTO) 1.4 (0.2-0.8); MONOCYTES % 16.3 % (4.4-11.3); NEUTROPHILS # (AUTO) 3.3 (2.1-6.9); NEUTROPHILS % 39.5 % (38.7-80.0); PLATELET COUNT 236 x10e3/uL (140-360); RED CELL DISTRIBUTION WIDTH 13.4 % (11.7-14.4)
[2018-09-14 06:04] LABS: INR 0.96; PROTHROMBIN TIME 13.3 seconds (11.9-14.5)
[2018-09-14 06:05] LABS: PARTIAL THROMBOPLASTIN TIME 31.5 seconds (23.8-35.5)
[2018-09-14 06:11] LABS: ALBUMIN 2.7 g/dL (3.5-5.0); ALBUMIN/GLOBULIN RATIO 0.8 (0.8-2.0); ANION GAP 12.4 mmol/L (8-16); CALCIUM 9.2 mg/dL (8.4-10.2); CREATININE, SERUM 1.96 mg/dL (0.72-1.25); POTASSIUM 4.4 mmol/L (3.5-5.1)
[2018-09-14] MEDS: SODIUM CHLORIDE 0.9% 1000ML 1,000 ML IV SCH ×3 (06:20→14:09)
[2018-09-14] MEDS: HYDROCODONE/APAP 7.5MG-325MG 1 EA TAB PO PRN ×2 (09:47→18:25)
[2018-09-14] MEDS ORDERED: MULTI-VITAMIN1 EACH PO (09:59)
[2018-09-14] MEDS ORDERED: biotin PO (09:59)
--- NOTE | 2018-09-14 11:19 | NUR ---
ATTEMPTED TO PREFORM DPA, PT GOING TO OR, WILL FOLLOW UP
--- NOTE | 2018-09-14 11:22 | NUR ---
Taken for procedure. No s/s of acute distress noted.
[2018-09-14] MEDS ORDERED: HYDROGEN PEROXIDE 120 ML BTL ONE (12:06)
[2018-09-14] MEDS ORDERED: BUPIVACAINE 0.25%/EPI 30ML SDV INJ ONE (12:06)
[2018-09-14] MEDS ORDERED: ONDANSETRON HCL INJ 2MG/ML 2ML 2 MG/ML VIAL IV PRN (13:00)
[2018-09-14] MEDS ORDERED: HYDROMORPHONE 2MG/ML 2 MG/ML ML ONE (13:12)
--- NOTE | 2018-09-14 13:50 | NUR ---
Back from procedure. Dressing to right thigh clean, dry, and intact
--- NOTE | 2018-09-14 14:10 | Operative Report ---
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 PROCEDURE PERFORMED: Incision and drainage of infected lymphocele of the right thigh and debridement of necrotic tissue. ANESTHESIA: General endotracheal. ESTIMATED BLOOD LOSS: Minimal. DRAINS: Two quarter-inch [place]. COMPLICATIONS: None. INDICATION AND FINDINGS: The patient is a 63-year-old male, who several weeks ago underwent incision and drainage of infected lymphocele of the right distal thigh at the site of previous saphenous vein, harvesting from CABG. At the same time, he also underwent excision of the lymphocele sac. He had a Sabino-Bartholomew drain that was left in place. The Sabino-Bartholomew drain had to be removed because the patient started complaining of severe pain and developed cellulitis as well as recurrent abscess and reason for which he was admitted. Intraoperative findings were an abscess located in the site of previous lymphocele abscess in the right distal-medial thigh. Necrotic tissue was debrided. The cavity irrigated. Cultures and sensitives were taken and then two quarter-inch [place] drain were brought out through a stab wound inferior to the incision and secured there. The incision that was made to enter the abscess cavity was closed loosely with 3-0 silk. DESCRIPTION OF PROCEDURE: With the patient lying on the operative table in the supine position. After administration of general endotracheal anesthesia, he was prepped and draped for incision and drainage and debridement of lymphocele abscess. An incision was made in the mid aspect of the previously placed incision there and then the cavity entered, loculations were broken down, pus was drained. Culture and sensitivities were taken. Necrotic fat was debrided down to viable bleeding tissue. A counter incision was made inferior to that and two quarter-inch [place] drains were placed and brought out through the counter incision and secured that with 3-0 silk. The edges of the initial incisions were freshened and excised, down to viable tissue, and then we loosely approximated the incision with 3-0 silk. Sterile dressing was applied. The patient tolerated the procedure well, taken to recovery room in stable condition. MD SAYDA Vela/COREY /[id number]
[2018-09-14] MEDS ORDERED: SEVOFLURANE INHAL SOLN 250 ML PEN BTL ONE (14:31)
[2018-09-14] MEDS ORDERED: ONDANSETRON HCL INJ 2MG/ML 2ML 2 MG/ML VIAL ONE (14:31)
[2018-09-14] MEDS ORDERED: DEXAMETHASONE SOD PHOS INJ 4 MG/ML VIAL ONE (14:31)
[2018-09-14] MEDS ORDERED: PROPOFOL IV EMULSION 10 MG/ML 20 ML VIAL ONE (14:31)
[2018-09-14] MEDS ORDERED: ACETAMINOPHEN 1000 MG/100 ML IV ONE (14:31)
[2018-09-14] MEDS ORDERED: LIDOCAINE HCL 2% LOCAL INJ 5 ML SDV VIAL INJ ONE (14:31)
[2018-09-14] MEDS ORDERED: KETOROLAC TROMETHAMINE 30 MG/ML VIAL ONE (14:31)
[2018-09-14] MEDS ORDERED: MIDAZOLAM HCL 2 MG/2 ML VIAL ONE (14:45)
[2018-09-14] MEDS ORDERED: FENTANYL CITRATE/PF 100MCG/2 ML INJ ONE (14:45)
[2018-09-14] MEDS: CLINDAMYCIN 600MG / 50ML 50 ML IV SCH (16:29)
--- NOTE | 2018-09-14 18:54 | NUR ---
BEDSIDE SHIFT REPORT PERFORMED, RECEIVED PT LAYING SEMI FOWLERS IN BED, AAOX3, RR EVEN AND NON-LABORED, ON ROOM AIR. NO S/SX OF DISTRESS NOTED. LEFT PT LAYING SEMI FOWLERS IN BED, BED IN LOW LOCKED POSITION, SIDE RAILS UPX2, CLAL LIGHT AND PHONE WITHIN REACH.
--- NOTE | 2018-09-14 18:57 | NUR ---
Report given to oncoming nurse of patient's status. Resting in bed. No s/s of acute distress noted.
[2018-09-14] MEDS: ONDANSETRON HCL INJ 2MG/ML 2ML 2 MG/ML VIAL IV PRN (22:42)
[2018-09-15] VITALS (8 sets, daily range): BP systolic 121–176; BP diastolic 67–91
[2018-09-15] MEDS: CLINDAMYCIN 600MG / 50ML 50 ML IV SCH ×5 (00:02→23:25)
[2018-09-15] MEDS: HYDROMORPHONE 1MG/1ML INJ IV PRN ×7 (01:42→23:25)
[2018-09-15] MEDS: HYDROCODONE/APAP 7.5MG-325MG 1 EA TAB PO PRN ×4 (03:43→22:45)
[2018-09-15 04:57] LABS: ANION GAP 14.8 mmol/L (8-16); CALCIUM 9.4 mg/dL (8.4-10.2); CREATININE, SERUM 1.69 mg/dL (0.72-1.25); POTASSIUM 4.8 mmol/L (3.5-5.1)
--- NOTE | 2018-09-15 05:25 | NUR ---
SPOKE WITH MD Lizzy WALL CONCERNING VANC TROUGH RESULTS. NEW ORDERS RECEIVED TO ADMINISTER VANCOMYCIN DOSE AND DRAW PEAK AFTER.
[2018-09-15] MEDS: VANCOMYCIN 1GM/NS 250 ML 250 ML IV SCH (05:41)
[2018-09-15] MEDS: GLIMEPIRIDE 2 MG TAB PO SCH (08:17)
[2018-09-15] MEDS: BIOTIN PO SCH (08:17)
[2018-09-15] MEDS: MULTIVITAMINS/MINERALS TAB PO SCH (08:18)
[2018-09-15] MEDS: SODIUM CHLORIDE 0.9% 1000ML 1,000 ML IV SCH ×3 (10:44→23:45)
--- NOTE | 2018-09-15 14:07 | Diagnostic Imaging Report ---
EXAM: CT Abdomen and Pelvis WITHOUT intravenous contrast INDICATION: Flank pain, renal calculi COMPARISON: None. TECHNIQUE: Abdomen and pelvis were scanned utilizing a multidetector helical scanner from the lung base to the pubic symphysis without administration of IV contrast. Coronal and sagittal reformations were obtained. IV CONTRAST: None ORAL CONTRAST: None COMPLICATIONS: None RADIATION DOSE: Total DLP: 763.2 mGy*cm Dose modulation, iterative reconstruction, and/or weight based adjustment of the mA/kV was utilized to reduce the radiation dose to as low as reasonably achievable. FINDINGS: LOWER THORAX: Bibasilar subsegmental atelectasis. Right lower lobe calcified granuloma. Multichamber cardiomegaly. Atherosclerotic calcifications of the coronary arteries. HEPATOBILIARY: Left hepatic 7 mm hypodense lesion and right hepatic 10 mm hypodense lesion are too small to adequately characterize on this noncontrast study. No other focal liver lesions. The gallbladder is decompressed and appears unremarkable. SPLEEN: Absent. 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 PANCREAS: No focal mass or ductal dilation. Scattered calcifications of the pancreatic head, possibly reflecting chronic pancreatitis. ADRENALS: No adrenal nodules. KIDNEYS/URETERS: 3 mm left lower pole nonobstructing renal calculus. 3 mm and 2 mm right lower pole nonobstructing renal calculi. No hydronephrosis. No definite solid mass lesions. PELVIC ORGANS/BLADDER: Unremarkable. PERITONEUM / RETROPERITONEUM: 1.9 cm irregular dense calculus in the left dependent portion of the bladder. Coarse calcifications within the nonenlarged prostate. LYMPH NODES: No lymphadenopathy. VESSELS: Atherosclerotic calcifications of the abdominal aorta and major branches. Infrarenal abdominal aortic aneurysm measuring up to 3.3 cm. Ectatic right and left common iliac arteries measuring up to 1.7 cm on the left and 1.9 cm on the right. GI TRACT: No abnormal bowel wall thickening. No bowel obstruction. BONES AND SOFT TISSUES: No acute osseous injury. Mild degenerative changes of the visualized spine. Grade 1 retrolisthesis at L5-S1. No suspicious lytic or blastic lesions. Sternotomy wires in place. IMPRESSION: 1.7 cm bladder calculus in the left dependent bladder. Bilateral nonobstructive renal calculi measuring up to 3 mm. No hydronephrosis. Atherosclerotic calcifications of the abdominal aorta with a 3.3 cm infrarenal abdominal aortic aneurysm. Ectatic right and left common iliac arteries measuring up to 1.7 cm on the left and 1.9 cm on the right. Multichamber cardiomegaly and atherosclerotic coronary artery calcifications. Signed by: Tim Cabrera MD on 09/15/2018 2:04 PM
[2018-09-15 15:25] LABS: BILIRUBIN,URINE NEGATIVE (NEGATIVE); CLARITY,URINE SL CLOUDY (CLEAR); COLOR,URINE YELLOW (YELLOW); KETONES,URINE NEGATIVE (NEGATIVE); LEUKOCYTE ESTERASE ,URINE NEGATIVE (NEGATIVE); NITRITE,URINE NEGATIVE (NEGATIVE); PROTEIN,URINE DIPSTICK NEGATIVE (NEGATIVE); URINE UROBILINOGEN 0.2 mg/dL (0.2 - 1)
[2018-09-15 15:39] LABS: EPITHELIAL CELLS,URINE RARE /LPF
--- NOTE | 2018-09-15 15:50 | NUR ---
DR.Garcia Irizarry aware of CT results
[2018-09-15 15:54] LABS: CREATININE,URINE RANDOM 66.11 mg/dL (63-166)
[2018-09-15 15:55] LABS: TOTAL PROTEIN, URINE < 6.8 mg/dL (1-14)
--- NOTE | 2018-09-15 16:28 | NUR ---
Nutrition Screen Note RD Recommendation for Physician: -Continue diet as ordered Plan of Care: RD following, monitoring for tolerance and adequacy Nutrition reason for involvement: Nutrition Risk Trigger MST Primary Diagnose(s): Right thigh cellulitis PMH: DM Ht: 76in Wt: 224.04lb BMI: 27.3kg/m2 IBW: 202lb +/- 10% RD Assessment: (09/15) Chart reviewed. Labs and meds reviewed. 63yo M, who was admitted for right thigh cellulitis. Visited pt in the room. Pt reported good appetite. No GI complains reported. Pt denied any chewing or swallowing difficulty. Weight has been stable. Current diet is appropriate and adequate. Pt has no questions at this time. Current Diet: ADA 1800 Malnutrition Evaluation (09/15/2018) The patient does not meet criteria for a specified degree of malnutrition at this time. Will re-evaluate at follow-up as appropriate. Diet Education Needs Assessment: Diet education not indicated. Nutrition Care Level: low Signed: Natali Gilbert, MS, RD, LD
[2018-09-15] MEDS: CARVEDILOL 3.125 MG TAB PO SCH (16:46)
--- NOTE | 2018-09-15 16:53 | NUR ---
A aware of CT results and preliminary ECHO results
--- NOTE | 2018-09-15 18:45 | NUR ---
Patient states "I strained my urine and I noticed a small stone. is aware."
--- NOTE | 2018-09-15 19:28 | NUR ---
BEDSIDE SHIFT REPORT PERFORMED, RECEIVED PT LAYING SEMI FOWLERS IN BED, AAOX3, RR EVEN AND NON-LABORED, ON ROOM AIR. NO S/SX OF DISTRESS NOTED. LEFT PT LAYING SEMI FOWLERS IN BED, BED IN LOW LOCKED POSITION, SIDE RAILS UPX2, CALL LIGHT AND PHONE WITHIN REACH.
--- NOTE | 2018-09-15 19:36 | NUR ---
Report given to oncoming nurse of patient's status. No s/s of acute distress noted.
--- NOTE | 2018-09-15 19:58 | Consultation ---
DATE OF CONSULTATION: 09/15/2018 HISTORY OF PRESENT ILLNESS: A 63-year-old gentleman with longstanding history of diabetes, hypertension with some renal insufficiency, exact degree he is not aware, history of coronary artery disease, peripheral vascular disease, peripheral neuropathy, status post coronary artery bypass surgery, presented with cellulitis and abscess of medial aspect of right thigh, status post I and D, currently on clindamycin and vancomycin. Currently, awake, alert, lying supine, in no apparent distress. Renal has been consulted for management of underlying acute kidney injury. The patient currently denies any nausea, vomiting, abdominal pain, fever, or chills. LABORATORY DATA: Labs show white count 8.2 and hemoglobin 13.6. Chemistry showing sodium 132, potassium 4.8, bicarbonate 22 with a creatinine of 1.69. Urinalysis not done. Had last vancomycin trough of 14.5, peak of 32. CURRENT MEDICATIONS: Include glimepiride 2 mg daily. He is on vancomycin 750 mg q.24. He is on clindamycin 600 mg IV q.6. he is on hydrocodone p.r.n. and ondansetron p.r.n. PAST MEDICAL HISTORY: History of coronary artery bypass surgery, history of recurrent stone formation, recently spontaneously passed. He has had numerous procedures done in the past. He started developing kidney stones when he was 18 and he has had laparotomies and he apparently forms calcium oxalate stones bilaterally. He just recently passed 2 tiny pieces while he was getting IV hydration here in the hospital. SOCIAL HISTORY: The patient is . Does not smoke or drink. FAMILY HISTORY: Significant for hypertension. PHYSICAL EXAMINATION: GENERAL: He is awake, alert, and oriented x3. No apparent distress. VITAL SIGNS: Blood pressure of 150/79, pulse rate 79, afebrile, respiratory rate 18, and oxygen saturation 96% on room air. HEAD AND NECK: Cornea clear. Mucosa moist. Neck veins flat. LUNGS: Clear to auscultation. No rales or rhonchi. HEART: S1 and S2 audible with a significant 4/6 almost holosystolic versus ejection systolic murmur heard over aortic area. No radiation to the neck. Soft 2 to 3/6 ejection systolic murmur heard right left sternal border as well as mitral area. No gallop. ABDOMEN: Soft and nontender. No apparent visceromegaly. EXTREMITIES: Lower extremity dressing noted on medial aspect of the right thigh. No lower extremity edema. IMPRESSION AND PLAN: Acute kidney injury, recurrent kidney stone former, hypertension, longstanding diabetes, and no evidence of fluid overload. Plan on working up, we will obtain spot urine protein-creatinine ratio, urinalysis, and kidney ultrasound. Continue IV normal saline. We will obtain vancomycin random level in the morning and adjust the dose as needed. We will obtain 24-hour urine collection for stone analysis including citrate oxalate, phosphate, and calcium. I will also obtain intact PTH and serum uric acid level. Discussed with the patient in detail. Please see orders. We will get an echocardiogram done as well as Cardiology evaluation. Discussed with Dr. Delacruz. Phoebe Caraballo MD SAK/DEBL /[id number]
[2018-09-15] MEDS ORDERED: VANCOMYCIN 1GM/NS 250 ML 250 ML IV SCH (20:00)
--- NOTE | 2018-09-15 21:53 | Consultation ---
DATE OF CONSULTATION: 09/15/2018 Cardiology Consultation REASON FOR CONSULTATION: Evaluate cardiac status and notable aortic ejection murmur on exam. HISTORY OF PRESENT ILLNESS: Mr. Wise is a 63-year-old gentleman with past medical history of hypertension, hypercholesteremia, coronary artery disease with prior history of 5-vessel CABG in February of 2017, complicated by myocardial infarction and subsequent loss of 4/5 bypass grafts. He has been bounced around between different hospital systems most recently, where he had his CABG in [facility] followed by care and management at [facility] and so forth. 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 He most recently has been dealing with infected lymphocele in the right distal thigh. He had an incision and drainage done about 3 weeks ago and had been on antibiotic therapy. He reported developing fevers, chills, malaise, and subsequently has progressive pain and swelling in the right thigh. He underwent successful incision and drainage of this infected lymphocele and subsequently left the operating room with several Satin drains. He clinically reports to be feeling much better. He had reports some slight shortness of breath yesterday with IV fluids, but reports that is doing better. He does endorse a little bit of swelling in both of his legs. The patient denies any chest pain or discomfort. Denies any typical angina symptoms. He has been told he has had a previous murmur in the past, but is unaware of any narrowing or leakiness in his heart valves. Cardiology was consulted to hopefully gain more history and to help facilitate care. PAST MEDICAL HISTORY: 1. Hypertension, essential. 2. Hypercholesteremia. 3. Coronary artery disease with prior history of CABG in February of 2017. 4. Large walled-off lymphocele in the right distal thigh from a previous CABG harvesting with subsequent infection as noted above. 5. Prior history of right vertebral arterial injury. PAST SURGICAL HISTORY: 1. History of 5-vessel CABG in February 2017. 2. Subsequent heart catheterization, does not recall where, but he has been told 4/5 bypass grafts are down. 3. History of right thigh lymphocele resection as noted above. FAMILY HISTORY: Mother at 73, had 4-vessel CABG, diabetes, and was on dialysis at one point. Father is alive at age of 90, had a stroke. One brother at age of 18 from an MVC. One brother of lung cancer at age of 60. Sister alive at the age of 69, she is doing well. SOCIAL HISTORY: He is a lifelong nonsmoker. Denies any alcohol or illicit drug use. ALLERGIES: INCLUDE LEVAQUIN, WHICH CAUSED TENDINOUS MUSCLE RUPTURE IN HIS BACK. REVIEW OF SYSTEMS: GENERAL: Positive for fevers and chills as noted above. HEENT: No headaches, visual complaints, sore throat, or stuffy nose. RESPIRATORY: Denies any pleuritic chest pain. He has exertional dyspnea class 2. CARDIOVASCULAR: As per HPI. Denies any orthopnea, PND, palpitations, syncope, or near syncope. GI: Denies any abdominal pain, bright red blood per rectum, melena, hematemesis. HEMATOLOGY: Positive for easy bruising. No bleeding. : Positive for frequent urinary stones and frequency and some slight dysuria. MUSCULOSKELETAL: Positive for right thigh pain as noted above. SKIN: Positive for incision and drainage of the right infected lymphocele as above. NEUROLOGIC: Denies any focal weakness, numbness, tingling, seizures, headache, TIA, or stroke. Remainder review of systems is negative otherwise mentioned. PHYSICAL EXAMINATION: VITAL SIGNS: Height of 64 inches, weight of 224 pounds, temperature of 97.6, pulse 72, respiratory rate 18, blood pressure 156/77, O2 saturation 98% on room air. GENERAL: This is a well-nourished, well-developed gentleman, who is currently in no apparent distress. HEENT: Normocephalic, atraumatic. Pupils equal, round, and reactive to light. Extraocular movements are intact. Oropharynx is clear. NECK: No elevation of jugular venous pulsation. Faint right carotid bruit. CARDIOVASCULAR: Regular rate and rhythm. Normal S1 and S2. A 3/6 systolic ejection murmur at the right upper sternal border. LUNGS: Show bibasilar crackles. No wheezes. Fair air entry. There is an old sternotomy scar. ABDOMEN: Soft, nontender, nondistended. Normoactive bowel sounds. No hepatosplenomegaly. BACK: No costovertebral angle tenderness. EXTREMITIES: Warm with 2+ bilateral femoral pulses. In the right thigh region, there is a dressing that is clean, dry, intact with GRAHAM drains, 1+ pedal pulses, 1+ edema to the knees bilaterally. NEUROLOGIC: Cranial nerves II through XII are intact. Strength is 5/5, grossly nonfocal. PSYCH: Normal fluent speech. Appropriate affect. No anxiety or delusions. LABORATORY DATA: White count of 8.3, hemoglobin 13.6, hematocrit 39.6, and platelets of 236. Sodium 137, potassium 4.4, chloride 103, bicarb 26, BUN 17, creatinine 1.96, glucose of 113, calcium of 9.2, AST 33, ALT 27, alkaline phosphatase 47, total protein 6.3, albumin of 2.7. INR 0.96. DIAGNOSES: 1. Sepsis secondary to infected right leg lymphocele, status post incision and drainage with implantation of drains. 2. Coronary artery disease with prior history of coronary artery bypass grafting. 3. Hypertension, essential. 4. Hypercholesteremia. 5. Aortic ejection murmur. PLAN/RECOMMENDATIONS: 1. From a cardiovascular standpoint, we will recommend antibiotic therapy per ID service. 2. We will go ahead and check echocardiogram to evaluate his left ventricular function. 3. We will recommend titrating cardiac medical therapy as possible. 4. The patient seems to have evidence of chronic kidney disease stage 3 based on his labs. Appreciate Nephrology management. 5. We will await Urology evaluation for his recurrent kidney stones. 6. We will continue to follow this patient. Thank you for this referral. MD KRISTIE Rich/COREY /[id number]
--- NOTE | 2018-09-15 22:19 | NUR ---
PT DRESSING TO (R) THIGH SLIDING DOWN LEG AND LEAVING WOUND EXPOSED. REMOVED ALL OF DRESSING EXCEPT FOR XEROFORM YELLOW DRESSING COVERING INCISION. APPLIED STERILE 4X4 AND ABD PAD, WRAPPED WITH KERLIX AND SECURED WITH TAPE.
[2018-09-16] VITALS (8 sets, daily range): BP systolic 136–170; BP diastolic 77–97
[2018-09-16] MEDS: SODIUM CHLORIDE 0.9% 1000ML 1,000 ML IV SCH (02:22)
[2018-09-16] MEDS: HYDROMORPHONE 1MG/1ML INJ IV PRN ×6 (02:25→21:35)
[2018-09-16] MEDS: HYDROCODONE/APAP 7.5MG-325MG 1 EA TAB PO PRN ×3 (04:23→19:53)
[2018-09-16] MEDS: CLINDAMYCIN 600MG / 50ML 50 ML IV SCH ×2 (05:50→11:51)
[2018-09-16] MEDS ORDERED: VANCOMYCIN 750MG/NS 150ML IVPB 150 ML IV SCH (06:00)
[2018-09-16 06:20] LABS: ALBUMIN 2.8 g/dL (3.5-5.0); ALBUMIN/GLOBULIN RATIO 0.7 (0.8-2.0); ANION GAP 13.1 mmol/L (8-16); CALCIUM 9.3 mg/dL (8.4-10.2); CREATININE, SERUM 1.67 mg/dL (0.72-1.25); POTASSIUM 5.1 mmol/L (3.5-5.1)
--- NOTE | 2018-09-16 07:12 | NUR ---
Rcvd patient in report this am. patient is awake in bed at this time. No s/s of distress noted
[2018-09-16] MEDS: BIOTIN PO SCH (08:03)
[2018-09-16] MEDS: MULTIVITAMINS/MINERALS TAB PO SCH (08:47)
[2018-09-16] MEDS: GLIMEPIRIDE 2 MG TAB PO SCH (08:47)
[2018-09-16] MEDS: CARVEDILOL 3.125 MG TAB PO SCH ×2 (08:48→17:34)
--- NOTE | 2018-09-16 09:09 | Diagnostic Imaging Report ---
EXAM: Renal Ultrasound INDICATION: ^PHAM COMPARISON: CT abdomen and pelvis of 09/15/2018 TECHNIQUE: Transverse and longitudinal images of the kidneys and bladder were obtained. FINDINGS: Right Kidney: Length: 10.4 cm Appearance: Normal echogenicity. Collecting system: No hydronephrosis Stones: Nonobstructive small calculi better demonstrated on CT. Cyst/Mass: None Left Kidney: Length: 11.7 cm Appearance: Normal echogenicity. Collecting system: No hydronephrosis Stones: Nonobstructive small calculi better demonstrated on CT. Cyst/Mass: None Bladder: Bilateral ureteral jets seen. Prevoid volume estimate of 65.5 cc IMPRESSION: No hydronephrosis. Small nonobstructing renal calculi and bladder calculus are better demonstrated on the CT of the same day. Signed by: Tim Cabrera MD on 09/16/2018 9:06 AM
--- NOTE | 2018-09-16 09:17 | NUR ---
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
--- NOTE | 2018-09-16 09:52 | NUR ---
Patient is AAOx3. Patient lung walls clear to auscultation. Bowel sounds present x4. No edema noted. Right thigh dressing in place. No drainage noted. IV fluids infusing to left AC. PRN pain meds given. Patient ambulates on his own.
--- NOTE | 2018-09-16 10:36 | NUR ---
Dr. Delacruz changed dressing at this time. Red area to right thigh with sutures in place. 2 stephan drains noted as well. PRN pain meds given d/t severe pain
--- NOTE | 2018-09-16 12:26 | Consultation ---
DATE OF CONSULTATION: 09/15/2018 Dr. Anthony dictating the consultation for Dr. Gregory Delacruz. REASON FOR CONSULTATION: Multiple small renal calculi and large bladder stone. HISTORY: The patient is a 63-year-old male admitted to the hospital because of a lymphocele of the right leg. Apparently, this lymphocele is the result of a saphenous vein removal for cardiac bypass that was done last year. Incidental findings, the patient has elevated BUN and creatinine with renal failure and the patient also has stones as outlined above. The patient states that he has no evidence of seeing gross hematuria. He does state that many years ago he had a stone removed and that he has passed multiple small stones before. I told him that there was multiple small stones in the kidneys, both the right and the left side and that there was a large stone probably approximately 2 to 3 cm in the bladder. He denies any urological complaints of frequency, urgency, gross hematuria, or dysuria. I did show the patient individual pictures of the stones in the kidneys as well as the stone in the bladder. PAST MEDICAL HISTORY: Obviously cardiovascular disease, hypertension as well as cholesterolemia, and lymphocele in question on the right leg. ALLERGIES: ALLERGIC TO LEVAQUIN. SOCIAL HISTORY: He is , had one child. Lives in the [facility] with his sister. PHYSICAL EXAMINATION: No hernias are found. Penis is normal and circumcised. Bilateral testicles are also normal. On CT scan, the prostate measures approximately 40 g and is also full of prostatic stones. IMPRESSION: The patient has a bladder stone as well as kidney stones. RECOMMENDATION: At present, the patient has no voiding symptoms. I gave the patient my card and my telephone number and we will follow him in the office once the problem with the lymphocele is solved. The patient will need to have obviously a stone removal out of the bladder before the stones gets bigger. The patient and I discussed this and he agrees. 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 In fact, this looks on some views as part of the kidney. It is definitely solid, round, and is most likely a piece of spleen that has continued to grow in place. Currently, I would not offer any treatment for this condition. MD VINAYAK Garsia/COREY /[id number]
[2018-09-16 12:36] LABS: THYROID STIMULATING HORMONE 2.05 uIU/mL (0.350-4.940)
[2018-09-16] MEDS: FUROSEMIDE 40 MG TAB PO SCH (13:28)
--- NOTE | 2018-09-16 16:26 | Diagnostic Imaging Report ---
MRI of the right femur without contrast. History: Infection distal right thigh. Cellulitis. Rule out abscess Technique: Multiplanar multisequence MRI of the right femur without contrast Findings: Postsurgical change in the knee with associated metallic artifacts. No acute fracture, subluxation or avascular necrosis. Abnormal skin thickening with skin defect and abnormal soft tissue edema at the medial aspect of the thigh at the level of the distal femur. There is an associated 5.8 x 2.4 x 1.4 cm heterogeneous fluid collection in the superficial fat with what appears to be a draining sinus tract best seen on axial series 3 image 33 through 37. There may be some internal packing material or air. This is consistent with a phlegmon/abscess. The underlying muscle is uninvolved. The visualized muscles are otherwise normal in size, signal intensity and morphology. The visualized neurovascular bundles are intact. Impression: Findings consistent with cellulitis and superficial abscess with sinus tract along the distal medial thigh as described above. Signed by: Dr. Michele Adame M.D. on 09/16/2018 4:23 PM
--- NOTE | 2018-09-16 16:56 | NUR ---
Patient returned from radiology at this time. Patient has a right subclavian central line at this time.
[2018-09-16] MEDS: DAPTOMYCIN 500mg 10ML 500 MG in SODIUM CHLORIDE 0.9% 100 ML IV SCH (17:34)
[2018-09-16] MEDS ORDERED: LIDOCAINE HCL 2% LOCAL 20 ML VIAL INJ ONE (19:22)
--- NOTE | 2018-09-16 19:53 | NUR ---
DRESSING DRY AND INTACT TO THE RIGHT LEG WITHOUT DRAINAGE. PATIENT C/O PAIN TO THE RIGHT LEG WITH PAIN SCORE #8, MEDICATED WITH NORCO 1TAB ORDERED. CALL LIGHT WITHIN EASY REACH, HE'S INSTRUCTED TO CALL FOR ASSISTANCE NEEDED.
--- NOTE | 2018-09-16 20:13 | Consultation ---
DATE OF CONSULTATION: REASON FOR CONSULTATION: Abscess of the right groin, recurrent. HISTORY OF PRESENT ILLNESS: This patient who is a 63-year-old white male, who has history of CABG a year ago. The patient had a venous graft harvested for the CABG from the right thigh. He is telling me since the surgery about a year ago which was done at [facility] he has been having recurrent infection. He was seen by Dr. Gregory Delacruz twice, underwent I and D. I was asked to see him. The patient was also found to have chronic kidney disease. He was originally on clindamycin and vancomycin. I was asked to see him. The patient is currently lying in bed comfortably. PAST MEDICAL HISTORY: Coronary artery disease, hypertension, renal stone diagnosed. ALLERGIES: NKA. SOCIAL HISTORY: There is no smoking, drug abuse, or alcohol abuse. FAMILY HISTORY: Hypertension. REVIEW OF SYSTEMS: At the present time. HEENT: Negative. PULMONARY: Negative. CARDIAC: Negative. : Negative. GI: Negative. SKIN: There is no other rash except on the thigh. PHYSICAL EXAMINATION: GENERAL: He is currently alert, oriented, does not seem to be in acute distress. VITAL SIGNS: Currently afebrile. HEENT: Normocephalic and icteric. NECK: Supple. CHEST: Clear. COR: S1, S2 ABDOMEN: Soft. Bowel sounds present. No tenderness. EXTREMITIES: No edema. On the right side, there is erythema, there is edema, there is induration. IMPRESSION: 1. Cellulitis of the thigh recurrent abscess growing Staph aureus. 2. Acute kidney injury, probably chronic kidney disease. I would recommend to put him on daptomycin since he has been on clindamycin and vancomycin and still has redness and some swelling. We will get the central line. Plan at least two weeks of antibiotic. I am concerned about the recurrence of the abscess. If there is a foreign body, he will have probably some deep stitches. 3. Chronic kidney disease. 4. History of coronary artery disease status post CABG. 5. Discussed with Dr. Delacruz. Discussed with Dr. Caraballo. Discussed with the patient at length. We will follow. Time spent MD JASON Dykes/COREY Lowery: 09/16/2018 14:53:01 /[id number]
[2018-09-16] MEDS ORDERED: ATORVASTATIN 20 MG TAB PO SCH (21:00)
[2018-09-16] MEDS: ATORVASTATIN 20 MG TAB PO SCH (21:35)
--- NOTE | 2018-09-16 21:35 | NUR ---
PATIENT C/O PAIN TO THE RIGHT LEG, MEDICATED WITH DILAUDID ORDERED. CALL LIGHT WITHIN EASY REACH, HE'S INSTRUCTED TO CALL FOR ASSISTANCE UPON GETTING OUT OF THE BED DUE TO SIDE EFFECT FROM THE MEDICATION.
[2018-09-17] VITALS (8 sets, daily range): BP systolic 125–146; BP diastolic 68–78
[2018-09-17] MEDS: HYDROMORPHONE 1MG/1ML INJ IV PRN ×7 (00:53→22:20)
--- NOTE | 2018-09-17 00:56 | NUR ---
DRESSING OBSERVED SATURATED WITH MODERATE AMOUNT OF BLOOD, DRESSING REINFORCED. PATIENT C/O PAIN TO THE RIGHT LEG, MEDICATED WITH DILAUDID ORDERED.
[2018-09-17] MEDS: HYDROCODONE/APAP 7.5MG-325MG 1 EA TAB PO PRN ×4 (03:06→21:42)
--- NOTE | 2018-09-17 04:25 | NUR ---
DRESSING DRY AND INTACT TO THE RIGHT LEG. PATIENT C/O PAIN TO THE RIGHT LEG, MEDICATED WITH DILAUDID ORDERED. CALL LIGHT AND URINAL WITHIN EASY REACH, HE'S INSTRUCTED TO CALL FOR ASSISTANCE NEEDED.
[2018-09-17 05:47] LABS: BASOPHILS # (AUTO) 0.1 (0.0-0.1); EOSINOPHILS # (AUTO) 0.2 (0.0-0.4); EOSINOPHILS % 3.5 % (0.0-6.0); HEMATOCRIT 38.5 % (38.2-49.6); HEMOGLOBIN 13.1 g/dL (14.0-18.0); LYMPHOCYTES # (AUTO) 2.7 (1.0-3.2); LYMPHOCYTES % 39.4 % (18.0-39.1); MEAN CORPUSCULAR HEMOGLOBIN 35.5 pg (28-32); MEAN CORPUSCULAR VOLUME 104.3 fL (81-99); MONOCYTES # (AUTO) 0.9 (0.2-0.8); MONOCYTES % 13.8 % (4.4-11.3); NEUTROPHILS # (AUTO) 2.8 (2.1-6.9); NEUTROPHILS % 41.9 % (38.7-80.0); PLATELET COUNT 263 x10e3/uL (140-360); RED BLOOD COUNT 3.69 x10e6/uL (4.3-5.7); RED CELL DISTRIBUTION WIDTH 13.4 % (11.7-14.4)
[2018-09-17 06:15] LABS: ALBUMIN 2.7 g/dL (3.5-5.0); ALBUMIN/GLOBULIN RATIO 0.7 (0.8-2.0); ANION GAP 13.4 mmol/L (8-16); CALCIUM 9.2 mg/dL (8.4-10.2); CREATININE, SERUM 1.61 mg/dL (0.72-1.25); POTASSIUM 4.4 mmol/L (3.5-5.1)
--- NOTE | 2018-09-17 07:09 | NUR ---
Received patient lying in bed with eyes open. No signs and symptoms of distress noted. Call light within reach.
[2018-09-17] MEDS: MULTIVITAMINS/MINERALS TAB PO SCH (08:25)
[2018-09-17] MEDS: FUROSEMIDE 40 MG TAB PO SCH (08:25)
[2018-09-17] MEDS: GLIMEPIRIDE 2 MG TAB PO SCH (08:25)
[2018-09-17] MEDS: CARVEDILOL 3.125 MG TAB PO SCH ×2 (08:26→16:42)
[2018-09-17] MEDS: BIOTIN PO SCH (09:00)
[2018-09-17] MEDS: ENOXAPARIN 30 MG/0.3 ML SYR SC SCH (16:42)
--- NOTE | 2018-09-17 18:03 | Progress Note ---
DATE: SUBJECTIVE: Mr. Wise is doing better. He is currently on daptomycin. No new complaints. REVIEW OF SYSTEMS: HEENT: Negative. PULMONARY: Negative. CARDIAC: Negative. PHYSICAL EXAMINATION: GENERAL: He is currently alert and oriented, does not seem to be in acute distress. VITAL SIGNS: Stable, currently afebrile. HEENT: Not icteric. NECK: Supple. No JVD. No lymphadenopathy. No thyromegaly. CHEST: Clear bilateral. HEART: S1 and S2. No S3, S4, or murmur. ABDOMEN: Soft. Bowel sounds present. No tenderness. EXTREMITIES: No edema. ADDENDUM: The patient complained of some pain with a central line and some muscle pain in the morning, but he is doing better. Also, he is having some pain in his thigh, but also doing better. MRI of the thigh noted. Please refer to the note. IMPRESSION: 1. Cellulitis and abscess of the thigh growing Staphylococcus aureus. 2. Chronic kidney disease. 3. He grew methicillin-susceptible Staphylococcus aureus. 4. Blood cultures are negative. PLAN: Discharge with daptomycin every 48 hours. Local care per surgery. Discussed with the patient, discussed with attending, discussed with the medical team. Thank you for asking me to see this patient. Plan is 14 days of IV antibiotic minimum and assess the drainage as an outpatient. MD JASON Dykes/COREY /[id number]
[2018-09-17] MEDS: ATORVASTATIN 20 MG TAB PO SCH (21:42)
[2018-09-18] VITALS (8 sets, daily range): BP systolic 124–168; BP diastolic 65–82
[2018-09-18] MEDS: HYDROMORPHONE 1MG/1ML INJ IV PRN ×6 (02:07→22:12)
[2018-09-18] MEDS: HYDROCODONE/APAP 7.5MG-325MG 1 EA TAB PO PRN ×4 (03:06→17:29)
--- NOTE | 2018-09-18 07:06 | NUR ---
Patient endorsed to next shift for continuity of care.
--- NOTE | 2018-09-18 07:22 | NUR ---
Rcvd patient in report this am. Patient is asleep in bed at this time. No s/s of distress noted
[2018-09-18] MEDS: GLIMEPIRIDE 2 MG TAB PO SCH (08:46)
[2018-09-18] MEDS: MULTIVITAMINS/MINERALS TAB PO SCH (08:47)
[2018-09-18] MEDS: FUROSEMIDE 40 MG TAB PO SCH (08:47)
[2018-09-18] MEDS: BIOTIN PO SCH (08:47)
[2018-09-18] MEDS: CARVEDILOL 3.125 MG TAB PO SCH ×2 (08:47→16:20)
[2018-09-18] MEDS: ASPIRIN 81 MG ENTERIC COATED PO SCH (08:47)
--- NOTE | 2018-09-18 10:00 | NUR ---
Patient is AAOx3. Patient lung walls clear to auscultation. Bowel sounds present x4. No edema noted. Right thigh dressing changed d/t patient c/o pain to the site that the bandage was rubbing on the incision. Minimal amount of drainage noted to old dressing. Redness to area around incision. No s/s of distress noted. Patient has a right subclavian IV in place.
--- NOTE | 2018-09-18 16:03 | Progress Note ---
DATE: SUBJECTIVE: Mr. Keys is doing better. No new complaint. REVIEW OF SYSTEMS: HEENT: Negative. PULMONARY: Negative. CARDIAC: Negative. : Negative. He is still having some pain in his right side, but it looks better. Family at the bedside. PHYSICAL EXAMINATION: GENERAL: He is currently alert, oriented, does not seem in acute distress. VITAL SIGNS: Stable, currently afebrile. HEENT: Not icteric. NECK: Supple. CHEST: Clear. HEART: S1, S2. No murmur. ABDOMEN: Soft. Bowel sounds present. EXTREMITIES: On the thigh there is still some induration but better, drain is in. IMPRESSION: 1. Abscess of the thigh with Staph aureus. 2. Chronic kidney disease. 3. History of coronary artery disease status post graft, harvested from the right leg. From Infectious Disease point of view, continue with daptomycin for convenience. We will discharge him home tomorrow once I have arranged outpatient IV antibiotic and central line in. Continue with local care and wound care. Discussed with the patient, answered all his question. MD JASON Dykes/COREY /[id number]
[2018-09-18] MEDS: DAPTOMYCIN 500mg 10ML 500 MG in SODIUM CHLORIDE 0.9% 100 ML IV SCH (16:20)
[2018-09-18] MEDS: ENOXAPARIN 30 MG/0.3 ML SYR SC SCH (16:47)
[2018-09-18] MEDS: ATORVASTATIN 20 MG TAB PO SCH (20:49)
[2018-09-19] MEDS: HYDROMORPHONE 1MG/1ML INJ IV PRN ×4 (02:14→16:20)
[2018-09-19] MEDS: HYDROCODONE/APAP 7.5MG-325MG 1 EA TAB PO PRN ×2 (04:12→08:38)
[2018-09-19 05:38] VITALS: BP 146/76
[2018-09-19 07:50] VITALS: BP 144/71
[2018-09-19] MEDS: CARVEDILOL 3.125 MG TAB PO SCH (08:17)
[2018-09-19] MEDS: GLIMEPIRIDE 2 MG TAB PO SCH (08:19)
[2018-09-19] MEDS: ASPIRIN 81 MG ENTERIC COATED PO SCH (08:19)
[2018-09-19] MEDS: FUROSEMIDE 40 MG TAB PO SCH (08:19)
[2018-09-19] MEDS: BIOTIN PO SCH (08:20)
[2018-09-19] MEDS: MULTIVITAMINS/MINERALS TAB PO SCH (08:20)
--- NOTE | 2018-09-19 08:25 | Diagnostic Imaging Report ---
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 IMPRESSION: Insertion of right-sided single-lumen tunneled Proline catheter, with tip in the expected location of the cavoatrial junction. Plan: The catheter may be used immediately. PROCEDURE SUMMARY: - Venous access with ultrasound guidance - Tunneled central venous catheter insertion with fluoroscopic guidance - Additional procedure(s): None PROCEDURE DETAILS: Pre-procedure Consent: Informed consent for the procedure including risks, benefits and alternatives was obtained and time-out was performed prior to the procedure. Preparation (MIPS): The site was prepared and draped using all elements of maximal sterile barrier technique including sterile gloves, sterile gown, cap, mask, large sterile sheet, sterile ultrasound probe cover, hand hygiene and cutaneous antisepsis with 2% chlorhexidine. Medical reason for site preparation exception (MIPS): Not applicable Anesthesia/sedation Level of anesthesia/sedation: No sedation Anesthesia/sedation administered by: Independent trained observer under attending supervision with continuous monitoring of the patient?s level of consciousness and physiologic status Access Local anesthesia was administered. The vessel was sonographically evaluated and determined to be patent. Real time ultrasound was used to visualize needle entry into the vessel and a permanent image . Vein accessed: Internal jugular vein Access technique: Micropuncture set with 21 gauge needle Catheter placement An incision was made near the venous access site and the catheter was tunneled subcutaneously to the venous access site and trimmed to appropriate length. The catheter was advanced via a peel-away sheath into the vein under fluoroscopic guidance. Catheter tip location was fluoroscopically verified and a permanent image was stored. Catheter placed: Proline power injectable single lumen Catheter size (Mohawk): 5 Catheter flush: Normal saline Closure A sterile dressing was applied. Access site closure technique: Tissue adhesive Catheter securement technique: Non-absorbable suture Contrast Contrast agent: None Radiation Dose Fluoroscopy time (minutes): 0.5 Reference air kerma (mGy): 1.39 Additional Details Additional description of procedure: None Equipment details: None Specimens removed: None Estimated blood loss (mL): Less than 10 Standardized report: [email or web address] Attestation Signer name: Tim Cabrera MD I attest that I was present for the entire procedure. I reviewed the stored images and agree with the report as written. Signed by: Tim Cabrera MD on 09/19/2018 8:22 AM
[2018-09-19 08:32] VITALS: BP 144/71
[2018-09-19] MEDS ORDERED: ONDANSETRON HCL 4 MG ORAL DISINTEGRATING TAB PO PRN (09:00)
[2018-09-19 12:09] VITALS: BP 161/78
--- NOTE | 2018-09-19 12:10 | NUR ---
EDUCATED ABOUT IMM, SIGNED, FILED IN CHART, WITH COPY LEFT WITH FAMILY AT BEDSIDE.
--- NOTE | 2018-09-19 14:21 | NUR ---
SPOKE WITH DR RESENDEZ WHO STATES THEY HAVE BEEN UNABLE TO GET PT PRECERTED THRU INS FOR IV ABX IN HIS OFFICE BECAUSE HE HASN'T SEEN HIS PCP YET CM CALLED DR RAUL SYLVESTER PT'S PCP IN [place] ; SPOKE WITH THOMAS [phone] FAXED CLINICAL INFORMATION TO HER AT [phone] APPT MADE FOR PT FOR 09/20 AT 10:30 EXPLAINED TO THOMAS THAT WE NEED IV ABX EXPEDITED SO THAT PT CAN START BY WED DR RESENDEZ MADE ROUNDS AND CONCURS WITH PLAN GAVE THOMAS HANSEN CONTACT INFORMATION IF SHE HAS QUESTIONS GAVE KRISTI GUZMAN'S CONTACT INFORMATION IF SHE HAS QUESTIONS PLAN IS DC HOME TODAY GAVE PT ADRESS AND MAP FOR DR RESENDEZ'S OFFICE AND JIGAR'S CONTACT INFORMATION
[2018-09-19] MEDS ORDERED: TYLENOL # 31 EA PO (15:12)
--- NOTE | 2018-09-19 15:26 | Diagnostic Imaging Report ---
PROCEDURE: Tunneled central venous catheter placement Procedural Personnel Attending physician(s): Tim Cabrera MD Fellow physician(s): None Resident physician(s): None Advanced practice provider(s): None Pre-procedure diagnosis: Bacteremia Post-procedure diagnosis: Same Indication: Administration of ocean transportation intermediary antibiotics Additional clinical history: None Complications: No immediate complications. IMPRESSION: Insertion of right-sided single-lumen tunneled Proline catheter, with tip in the expected location of the cavoatrial junction. Plan: The catheter may be used immediately. PROCEDURE SUMMARY: - Venous access with ultrasound guidance - Tunneled central venous catheter insertion with fluoroscopic guidance - Additional procedure(s): None PROCEDURE DETAILS: Pre-procedure Consent: Informed consent for the procedure including risks, benefits and alternatives was obtained and time-out was performed prior to the procedure. Preparation (MIPS): The site was prepared and draped using all elements of maximal sterile barrier technique including sterile gloves, sterile gown, cap, mask, large sterile sheet, sterile ultrasound probe cover, hand hygiene and cutaneous antisepsis with 2% chlorhexidine. Medical reason for site preparation exception (MIPS): Not applicable Anesthesia/sedation Level of anesthesia/sedation: No sedation Anesthesia/sedation administered by: Independent trained observer under attending supervision with continuous monitoring of the patient?s level of consciousness and physiologic status Access Local anesthesia was administered. The vessel was sonographically evaluated and determined to be patent. Real time ultrasound was used to visualize needle entry into the vessel and a permanent image . Vein accessed: Internal jugular vein Access technique: Micropuncture set with 21 gauge needle Catheter placement An incision was made near the venous access site and the catheter was tunneled subcutaneously to the venous access site and trimmed to appropriate length. The catheter was advanced via a peel-away sheath into the vein under fluoroscopic guidance. Catheter tip location was fluoroscopically verified and a permanent image was stored. Catheter placed: Proline power injectable single lumen Catheter size (Maori): 5 Catheter flush: Normal saline Closure A sterile dressing was applied. Access site closure technique: Tissue adhesive Catheter securement technique: Non-absorbable suture Contrast Contrast agent: None Radiation Dose Fluoroscopy time (minutes): 0.5 Reference air kerma (mGy): 1.39 Additional Details Additional description of procedure: None Equipment details: None Specimens removed: None Estimated blood loss (mL): Less than 10 Standardized report: [email or web address] Attestation Signer name: Tim Cabrera MD I attest that I was present for the entire procedure. I reviewed the stored images and agree with the report as written. Signed by: Tim Cabrera MD on 09/19/2018 3:22 PM
[2018-09-19 15:57] VITALS: BP 139/72
[2018-09-19] MEDS ORDERED: DAPTOMYCIN 500mg 10ML 500 MG in SODIUM CHLORIDE 0.9% 100 ML IV ONE (16:00)
--- NOTE | 2018-09-21 03:18 | Discharge Summary ---
DISCHARGE DIAGNOSIS: Cellulitis with recurrent abscess of the right distal thigh secondary to infected and recurrent lymphocele. PROCEDURE PERFORMED ON ADMISSION: Incision and drainage of recurrent infected lymphocele of the right distal thigh from saphenous vein harvesting from previous coronary artery bypass graft in the past. DISCHARGE DIAGNOSES: 1. 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 2. Coronary artery disease, severe. 3. Chronic renal failure. 4. Urolithiasis. 5. Diabetes. 6. Status post splenectomy. HOSPITALIZATION COURSE: The patient last week admitted to the hospital following several weeks ago incision and drainage of infected lymphocele of the right distal thigh at the saphenous harvesting vein site from previous CABG. The patient went home and did well. However, he has returned with another abscess after a Sabino-Bartholomew drain was removed as an outpatient. He now was admitted to the hospital and underwent on the day of admission, the previously described procedure. The patient had an evaluation with Urology because he was found to have a bladder stone and this will be followed up as an outpatient. He was also found to have chronic renal failure and Dr. Caraballo from Nephrology was consulted. He will be following up the patient also as an outpatient. He was evaluated by Dr. Payne because of coronary artery disease. He was evaluated for intravenous antibiotic coverage by Dr. Lott who started him on Cubicin and will be continuing that for two weeks upon discharge. The patient had a central line inserted by Radiology. The patient was discharged home afebrile. His white count was normal. He was tolerating a regular diet well. His wound was healing. His cellulitis and edema were significantly improved with almost all the cellulitis resolved at the time of discharge. DISCHARGE MEDICATIONS: 1. Tylenol No. 3 one p.o. q.4 hours p.r.n. for pain, #40, no refills. 2. Cubicin IV for two weeks as per Dr. Lott. FOLLOWUP: He will be followed up in my office on following the discharge. MD SAYDA Vela/COREY /[id number]
== END 2018-09-19 17:00 | disposition home or self-care (01) | DRG 856 ==
LOC: MED/SURG 16:33
PROVIDERS: ADMIT Surgery; ATTEND Surgery
PROC: 0J9N00Z Drainage of Right Lower Leg Subcutaneous Tissue and Fascia with Drainage Device, Open Approach (ICD-10-PCS; 2018-09-14)
PROC: 0JBL0ZZ Excision of Right Upper Leg Subcutaneous Tissue and Fascia, Open Approach (ICD-10-PCS; principal; 2018-09-14 12:00)
DX: T81.44XA Sepsis following a procedure, initial encounter (principal); A41.01 Sepsis due to Methicillin susceptible Staphylococcus aureus; N17.9 Acute kidney failure, unspecified; L02.214 Cutaneous abscess of groin; I13.0 Hypertensive heart and chronic kidney disease with heart failure and stage 1 through stage 4 chronic kidney disease, or unspecified chronic kidney disease; I50.22 Chronic systolic (congestive) heart failure; I96 Gangrene, not elsewhere classified; T81.49XA Infection following a procedure, other surgical site, initial encounter; I25.10 Atherosclerotic heart disease of native coronary artery without angina pectoris; R01.1 Cardiac murmur, unspecified; Z95.1 Presence of aortocoronary bypass graft; E78.00 Pure hypercholesterolemia, unspecified; N21.0 Calculus in bladder; N20.0 Calculus of kidney; N18.9 Chronic kidney disease, unspecified; E11.22 Type 2 diabetes mellitus with diabetic chronic kidney disease; Z79.4 Long term (current) use of insulin; L76.82 Other postprocedural complications of skin and subcutaneous tissue
CPT/HCPCS: 36415; 36558; 74176; 74470; 76770; 76937; 80048; 80053; 80061; 80202; 81001; 82310; 82507; 82570; 82948; 83880; 83945; 83970; 84156; 84443; 84550; 85025; 85610; 85730; 87071; 87075; 87186; 87205; 93005; 93306; 96376; J1100; J1170; J1650; J1885; J2001; J2250; J2405; J3010; J3370; J7030; J7050

== ENCOUNTER 2018-11-27 15:49 | Inpatient (IN) | payer MEDICARE ==
[~2018-11-27] VITALS: Ht 193 cm; Wt 103.4 kg
[~2018-11-27 15:49] MED LIST changes: +MULTI-VITAMIN1 EACH PO; +TYLENOL # 31 EA PO; +biotin PO
[2018-11-27] MEDS ORDERED: ASPIRIN 81 MG CHEW TAB PO NR (16:00)
[2018-11-27] MEDS ORDERED: MORPHINE SULFATE 2 MG/ML SYR 1ML IV NR (16:00)
[2018-11-27] MEDS ORDERED: ONDANSETRON HCL INJ 2MG/ML 2ML 2 MG/ML VIAL IV NR ×2 (16:00→17:00)
[2018-11-27] MEDS ORDERED: NITROGLYCERIN 2% OINT 1 GM PKT TOP NR (16:00)
[2018-11-27] MEDS ORDERED: SODIUM CHLORIDE 0.9% 1000ML 1,000 ML IV STA (16:00)
[2018-11-27] MEDS ORDERED: NITROGLYCERIN 0.4 MG SUBL ONE (16:00)
[2018-11-27] MEDS ORDERED: ASPIRIN 81 MG CHEW TAB ONE (16:01)
[2018-11-27] MEDS ORDERED: SODIUM CHLORIDE 0.9% 1000ML 1,000 ML ONE (16:07)
[2018-11-27 16:28] LABS: BASOPHILS # (AUTO) 0.1 (0.0-0.1); BASOPHILS % 0.9 % (0.0-1.0); EOSINOPHILS # (AUTO) 0.3 (0.0-0.4); EOSINOPHILS % 2.4 % (0.0-6.0); HEMATOCRIT 47.4 % (38.2-49.6); LYMPHOCYTES # (AUTO) 2.3 (1.0-3.2); LYMPHOCYTES % 17.3 % (18.0-39.1); MEAN CORPUSCULAR HGB CONC 35.9 g/dL (31-35); MEAN CORPUSCULAR VOLUME 100.4 fL (81-99); MONOCYTES # (AUTO) 1.4 (0.2-0.8); MONOCYTES % 10.3 % (4.4-11.3); NEUTROPHILS % 68.8 % (38.7-80.0); PLATELET COUNT 233 x10e3/uL (140-360); RED BLOOD COUNT 4.72 x10e6/uL (4.3-5.7); RED CELL DISTRIBUTION WIDTH 13.6 % (11.7-14.4)
[2018-11-27 16:32] LABS: INR 0.97; PROTHROMBIN TIME 13.4 seconds (11.9-14.5)
[2018-11-27 16:33] LABS: PARTIAL THROMBOPLASTIN TIME 27.3 seconds (23.8-35.5)
[2018-11-27 16:41] LABS: ALBUMIN 3.8 g/dL (3.5-5.0); ANION GAP 19.1 mmol/L (8-16); CALCIUM 9.8 mg/dL (8.4-10.2); CREATININE, SERUM 1.76 mg/dL (0.72-1.25); MAGNESIUM 1.5 MG/DL (1.3-2.1); POTASSIUM 4.1 mmol/L (3.5-5.1)
[2018-11-27 16:47] LABS: CREATINE KINASE MB 2.9 ng/mL (0-5.0)
--- NOTE | 2018-11-27 16:54 | Diagnostic Imaging Report ---
A single frontal view of the chest. HISTORY: Chest pain COMPARISON: None available. DISCUSSION: Portable technique, limits sensitivity of the exam. Soft tissue attenuation partially limits sensitivity of the exam. Overlying artifacts. Tubes/Lines: None Lungs and pleura: Low lung volumes result in bibasilar vascular crowding, accentuation of the pulmonary interstitial markings, central pulmonary vasculature, and the cardiac silhouette. Allowing for these limitations, the findings are as follows: No evidence of a consolidative pneumonia or pulmonary alveolar edema. No definite pleural effusion or pneumothorax is identified. Heart and mediastinum: The cardiomediastinal silhouette appear(s) unremarkable. Bones and soft tissues: Multiple median sternotomy wires. IMPRESSION: No acute radiographic abnormality. Signed by: Dr. Gulshan George D.O., M.M.M. on 11/27/2018 4:50 PM
[2018-11-27] MEDS ORDERED: MORPHINE SULFATE INJ 4 MG/ML INJ 1ML IV NR (17:00)
[2018-11-27] MEDS ORDERED: DIATRIZOATE MEGL/DIATRIZOA SOD 30 ML BTL PO ONE (17:05)
[2018-11-27] MEDS ORDERED: SODIUM CHLORIDE 0.9% 500ML 500 ML IV ONE (17:30)
--- NOTE | 2018-11-27 18:32 | Diagnostic Imaging Report ---
EXAM: CT of the abdomen and pelvis WITHOUT contrast HISTORY: Right lower quadrant, abdominal pain, possible infection, history of CABG, splenectomy, kidney stones, coronary artery disease COMPARISON: None available. TECHNIQUE: The abdomen and pelvis were scanned utilizing a multidetector helical scanner. Coronal and sagittal reformats are available. PROTOCOL: Routine IV CONTRAST: None, which limits sensitivity and specificity of evaluation of the soft tissues and vascular structures. ORAL CONTRAST: None, which limits sensitivity and specificity of evaluation of the bowel. RADIATION DOSE: Total DLP: 834.33 mGy*cm Estimated effective dose: (DLP x 0.015 x size factor) Dose modulation, iterative reconstruction, and/or weight based adjustment of the mA/kV was utilized to reduce the radiation dose to as low as reasonably achievable. COMPLICATIONS: None FINDINGS: LOWER THORAX: Mild global cardiomegaly. Mild dependent atelectasis. HEPATOBILIARY: Stable small hypodensities in the liver, statistically most likely small cysts. No biliary dilation. No calcified gallstone. SPLEEN: Status post splenectomy, stable small splenules. PANCREAS: Persistent calcifications in the head of the pancreas. Prominent fat stranding about the head of the pancreas, without a fluid collection. Enhancement characteristics cannot be assessed. Evaluation of the underlying parenchyma is markedly limited. ADRENALS: No adrenal nodule. KIDNEYS/URETERS: Bilateral nonobstructing calcifications, the largest near the inferior pole the right kidney measures 3 mm. No hydronephrosis. PELVIC ORGANS/BLADDER: A 2.1 cm lobulated calcification within the urinary bladder. PERITONEUM / RETROPERITONEUM: No free air or fluid. GI TRACT: On limited evaluation of the gastrointestinal tract, no dilation or wall thickening identified. The appendix appears normal. LYMPH NODES: No pathologically enlarged lymph nodes. VESSELS: Scattered atherosclerotic vascular calcifications, including the coronary arteries. The infrarenal abdominal aorta measures up to 3.3 cm. BONES and JOINTS: Coarse trabeculation and suggestion of mild enlargement of the visualized proximal left femur. SOFT TISSUES: Unremarkable. IMPRESSION: 1. Findings compatible with pancreatitis, consider acute on chronic pancreatitis. 2. Stable urinary bladder calculus. 3. Stable 3.3 cm infrarenal abdominal aortic aneurysm. 4. Coronary atherosclerosis. 5. 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 Signed by: Dr. Gulshan George D.O., M.M.M. on 11/27/2018 6:28 PM
[2018-11-27] MEDS ORDERED: PANTOPRAZOLE 40 MG 10ML VIAL IV NR (18:45)
[2018-11-27 21:45] VITALS: BP 195/99
[2018-11-27] MEDS: ONDANSETRON HCL INJ 2MG/ML 2ML 2 MG/ML VIAL IV PRN (22:00)
[2018-11-27] MEDS: SODIUM CHLORIDE 0.9% 1000ML 1,000 ML IV SCH (22:00)
[2018-11-27] MEDS: HYDROMORPHONE 1MG/1ML INJ IV PRN (22:00)
[2018-11-27] MEDS ORDERED: ATORVASTATIN CA20 MG PO (22:33)
[2018-11-27] MEDS ORDERED: PLAVIX75 MG PO (22:33)
[2018-11-27] MEDS ORDERED: ASPIR 8181 MG (22:33)
[2018-11-27] MEDS ORDERED: GLIMEPIRIDE2 MG PO (22:33)
[2018-11-27] MEDS ORDERED: CARVEDILOL3.125 MG PO (22:33)
[2018-11-27 22:52] VITALS: BP 152/86
[2018-11-27 23:30] VITALS: BP 152/86
[2018-11-28] VITALS (8 sets, daily range): BP systolic 113–151; BP diastolic 66–84
[2018-11-28] MEDS: HYDROMORPHONE 1MG/1ML INJ IV PRN ×6 (02:24→22:09)
[2018-11-28] MEDS: ONDANSETRON HCL INJ 2MG/ML 2ML 2 MG/ML VIAL IV PRN ×4 (02:24→18:30)
[2018-11-28] MEDS ORDERED: ACETAMINOPHEN 325 MG TAB PO PRN (05:15)
[2018-11-28] MEDS ORDERED: METOPROLOL TARTRATE INJ 1 MG/ML VIAL IV PRN (05:15)
[2018-11-28] MEDS: ACETAMINOPHEN 1000 MG/100 ML IV SCH ×3 (06:00→18:00)
[2018-11-28] MEDS: PANTOPRAZOLE 40 MG 10ML VIAL IV SCH ×3 (06:00→20:22)
[2018-11-28 06:44] LABS: BASOPHILS # (AUTO) 0.1 (0.0-0.1); BASOPHILS % 0.4 % (0.0-1.0); EOSINOPHILS # (AUTO) 0.3 (0.0-0.4); EOSINOPHILS % 1.9 % (0.0-6.0); HEMATOCRIT 46.9 % (38.2-49.6); HEMOGLOBIN 16.5 g/dL (14.0-18.0); LYMPHOCYTES # (AUTO) 1.9 (1.0-3.2); LYMPHOCYTES % 11.2 % (18.0-39.1); MEAN CORPUSCULAR HEMOGLOBIN 35.7 pg (28-32); MEAN CORPUSCULAR HGB CONC 35.2 g/dL (31-35); MEAN CORPUSCULAR VOLUME 101.5 fL (81-99); MONOCYTES % 12.3 % (4.4-11.3); NEUTROPHILS # (AUTO) 12.2 (2.1-6.9); NEUTROPHILS % 73.8 % (38.7-80.0); PLATELET COUNT 206 x10e3/uL (140-360); RED BLOOD COUNT 4.62 x10e6/uL (4.3-5.7); RED CELL DISTRIBUTION WIDTH 13.9 % (11.7-14.4)
[2018-11-28 07:02] LABS: ALBUMIN 3.2 g/dL (3.5-5.0); ALBUMIN/GLOBULIN RATIO 0.9 (0.8-2.0); ANION GAP 15.9 mmol/L (8-16); CALCIUM 8.8 mg/dL (8.4-10.2); CREATININE, SERUM 1.39 mg/dL (0.72-1.25); POTASSIUM 3.9 mmol/L (3.5-5.1)
--- NOTE | 2018-11-28 07:25 | NUR ---
PT IS TRANSFERRED FROM ER PTIS AOX3 C/O CHEST PAIN AND ABD PAIN .RESPIRATIONS ARE EVEN AND UNLABORESD SKIN WARM AND DRY TO TOUCH .C/O PAIN GIVEN DILAUDID .CALL LGHTELE SHOWS SR .CALL LIGHT WIH IN REACH .CONTINUE TO MONITOR
--- NOTE | 2018-11-28 07:27 | NUR ---
.BEDSIDE REPORT GIVEN TO THE ONCOMING NURSE
[2018-11-28 07:30] LABS: CREATINE KINASE MB 2.8 ng/mL (0-5.0)
[2018-11-28] MEDS: SODIUM CHLORIDE 0.9% 1000ML 1,000 ML IV SCH ×3 (07:36→15:00)
[2018-11-28] MEDS: AMLODIPINE BESYLATE 10 MG TAB PO SCH (09:00)
[2018-11-28] MEDS ORDERED: CARVEDILOL 3.125 MG TAB PO SCH (09:00)
[2018-11-28] MEDS ORDERED: PANTOPRAZOLE 40 MG 10ML VIAL IV SCH (09:00)
[2018-11-28] MEDS: CLOPIDOGREL BISULFATE 75 MG TAB PO SCH (09:40)
[2018-11-28] MEDS: ASPIRIN 81 MG CHEW TAB PO SCH (09:40)
--- NOTE | 2018-11-28 11:04 | NUR ---
MD PADILLA INTO SEE PT, DISCUSSED POC, MD PADILLA ORDERED TO MAKE SURE PT GETS PLAVIX AND ASPIRIN EVEN THOUGH PT IS NPO
[2018-11-28 14:57] LABS: CREATINE KINASE MB 2.1 ng/mL (0-5.0)
--- NOTE | 2018-11-28 15:29 | Consultation ---
DATE OF CONSULTATION: 11/28/2018 REASON FOR CONSULTATION: Cardiac evaluation/chest pain. CHIEF COMPLAINT: Abdominal pain. HISTORY OF PRESENT ILLNESS: This is a 63-year-old male known to practice with history of coronary artery bypass in February 2017, Dr. Ash, hyperlipidemia, hypertension, diabetes, and right harvest graft site infection. The patient presents to [facility] with complaints of abdominal pain/chest pain. Cardiology was consulted to evaluate the patient. Labs were noted and lipase 623. Imaging of abdomen showing consistent with pancreatitis. The patient is seen in room. Reports started having abdominal pain about 2 days ago with nausea. However, yesterday, pain become unbearable and nausea became worse, therefore came to the ER for further evaluation. The patient denies any chest pain. EKG showing normal sinus rhythm. Troponins negative x2 thus far. Of note, the patient also underwent left heart catheterization on November 24, 2018 with stenting of the RCA. The patient reports being compliant with his anti-platelet therapy. PAST MEDICAL HISTORY: Coronary artery disease status post CABG in February 2017, status post PCI, RCA November 24, 2018, hypertension, aortic stenosis, hyperlipidemia, and diabetes. PAST SURGICAL HISTORY: CABG, February 2017; recent heart catheterization, November 24, 2018 with PCI to RCA; right thigh harvest site seroma, status post I and D, September 2018. FAMILY HISTORY: Mother at age 75, apparently with history of diabetes and bypass. Father alive, 90 years of age, history of stroke and dementia. SOCIAL HISTORY: He is a . 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 Denies any alcohol use or tobacco use. HOME MEDICATIONS: Aspirin 81 mg daily, Plavix 75 mg daily, atorvastatin 20 mg daily, Coreg 3.125 b.i.d., and glimepiride 2 mg daily. ALLERGIES: LEVOFLOXACIN. REVIEW OF SYSTEMS: GENERAL: Denies any weight changes, fatigue, weakness, fevers, chills, or night sweats. SKIN: Denies any rashes or sores. HEENT: Denies any vision changes, blurred vision, double vision, epistaxis, sore throat, swollen gums, or hoarseness. CARDIAC: Denies any chest pain. Denies any palpitation. Positive for dyspnea on exertion. Denies any orthopnea or PND. RESPIRATORY: Denies any shortness of breath, wheezing, cough and hemoptysis. GI: Positive for nausea. Denies any vomiting. Denies any bloody or tarry stools. URINARY: Denies any frequency, urgency, dysuria, or hematuria. VASCULAR: Denies any lower extremity edema or claudication. MUSCULOSKELETAL: Denies any muscle weakness. Positive for joint stiffness and generalized joint aches. NEUROLOGIC: Denies any numbness, tingling, tremors, weakness, or paralysis. PHYSICAL EXAMINATION: VITAL SIGNS: Height 76 inches, weight 228 pounds, and BMI 27. Temperature 96.6, pulse 88, respiratory rate 20, blood pressure 129/75, and pulse ox 98. GENERAL: Appears stated age, reliable informant. SKIN: No rashes or bruises noted. HEENT: Normocephalic. Pupils are equal and reactive. Extraocular movements are intact. No JVD. Positive carotid bruit on the right. Oral mucosa pink. HEART: Regular rate and rhythm. Positive systolic murmur. ABDOMEN: Soft. Tender to palpation in the epigastric region. MUSCULOSKELETAL: Positive for right groin scar from status post harvest site. VASCULAR: +2 bilateral radial pulses, +1 DP and PT pulses. LABORATORY DATA: Sodium 137, potassium 3.9, chloride 107, bicarb 18, BUN 135, and creatinine 1.3. Lipase 623. White count 16, hemoglobin 16, hematocrit 46, and platelets 206. CT abdomen and pelvis showing pancreatitis. EKG, normal sinus rhythm. ASSESSMENT AND PLAN: 1. Pancreatitis. 2. Coronary artery disease, status post coronary artery bypass grafting in February 2017, also status post PCI to RCA, November 24, 2018. 3. Hypertension. 4. Hyperlipidemia. 5. Aortic stenosis. PLAN: 1. The patient presents with abdominal pain and elevated lipase. CT abdomen and pelvis consistent with pancreatitis. Continue bowel rest. Continue IV fluids. Antibiotics as per primary service. 2. Given recent stent, the patient needs to continue his anti-platelet therapy. 3. Antihypertensive as BP tolerates. 4. We will continue to monitor the patient and adjust cardiac therapy as clinical course dictates. Thank you very much for this consult. Dictated by Cornelio Sullivan NP Lissette Payne MD DC/COREY /[id number]
[2018-11-28 16:07] LABS: BILIRUBIN,URINE NEGATIVE (NEGATIVE); CLARITY,URINE SL CLOUDY (CLEAR); KETONES,URINE NEGATIVE (NEGATIVE); LEUKOCYTE ESTERASE ,URINE NEGATIVE (NEGATIVE); NITRITE,URINE NEGATIVE (NEGATIVE); PROTEIN,URINE DIPSTICK NEGATIVE (NEGATIVE); URINE UROBILINOGEN 0.2 mg/dL (0.2 - 1)
[2018-11-28 16:12] LABS: COLOR,URINE STRAW (YELLOW)
[2018-11-28 16:20] LABS: EPITHELIAL CELLS,URINE FEW /LPF; RBC,URINE 0-5 /HPF (0-5)
--- NOTE | 2018-11-28 19:55 | NUR ---
RECEIVED PT IN BED AOX3 PT C/O PAIN .IV NS IS RUNNING AT 100ML/HR .CALL LIGHT WISMCprosN REACH .CONTINUE TO MONITOR
[2018-11-28] MEDS: ATORVASTATIN 20 MG TAB PO SCH (20:31)
[2018-11-28] MEDS: CARVEDILOL 3.125 MG TAB PO SCH (22:08)
[2018-11-29] VITALS (8 sets, daily range): BP systolic 117–130; BP diastolic 58–79
[2018-11-29] MEDS: ACETAMINOPHEN 1000 MG/100 ML IV SCH
[2018-11-29] MEDS: SODIUM CHLORIDE 0.9% 1000ML 1,000 ML IV SCH ×4 (00:46→20:46)
[2018-11-29] MEDS: HYDROMORPHONE 1MG/1ML INJ IV PRN ×7 (01:00→20:31)
--- NOTE | 2018-11-29 07:00 | NUR ---
RECEIVED BEDSIDE SHIFT REPORT FROM JULITA RN. PT DENIES NEEDS AT THIS TIME.
[2018-11-29 07:17] LABS: BASOPHILS # (AUTO) 0.1 (0.0-0.1); BASOPHILS % 0.3 % (0.0-1.0); EOSINOPHILS # (AUTO) 0.4 (0.0-0.4); EOSINOPHILS % 1.7 % (0.0-6.0); HEMATOCRIT 45.2 % (38.2-49.6); HEMOGLOBIN 15.3 g/dL (14.0-18.0); LYMPHOCYTES # (AUTO) 1.4 (1.0-3.2); LYMPHOCYTES % 6.7 % (18.0-39.1); MEAN CORPUSCULAR HEMOGLOBIN 35.9 pg (28-32); MEAN CORPUSCULAR HGB CONC 33.8 g/dL (31-35); MEAN CORPUSCULAR VOLUME 106.1 fL (81-99); MONOCYTES # (AUTO) 2.1 (0.2-0.8); MONOCYTES % 9.8 % (4.4-11.3); NEUTROPHILS # (AUTO) 17.1 (2.1-6.9); NEUTROPHILS % 80.9 % (38.7-80.0); PLATELET COUNT 170 x10e3/uL (140-360); RED BLOOD COUNT 4.26 x10e6/uL (4.3-5.7); RED CELL DISTRIBUTION WIDTH 14.3 % (11.7-14.4)
--- NOTE | 2018-11-29 07:24 | NUR ---
PT C/O PAIN AND GIVEN ORDERED PAIN MEDICATION..CALL LIGHT WITH IN REACH BEDSIDE REPORT GIVEN TO THE ONCOMING NURSE
[2018-11-29 07:46] LABS: ANION GAP 15.3 mmol/L (8-16); CALCIUM 8.6 mg/dL (8.4-10.2); CREATININE, SERUM 1.64 mg/dL (0.72-1.25); POTASSIUM 4.3 mmol/L (3.5-5.1)
[2018-11-29 08:08] LABS: THYROID STIMULATING HORMONE 0.764 uIU/mL (0.350-4.940)
[2018-11-29] MEDS: ASPIRIN 81 MG CHEW TAB PO SCH (09:22)
[2018-11-29] MEDS: PANTOPRAZOLE 40 MG 10ML VIAL IV SCH ×2 (09:22→21:23)
[2018-11-29] MEDS: CARVEDILOL 3.125 MG TAB PO SCH ×2 (09:22→21:23)
[2018-11-29] MEDS: CLOPIDOGREL BISULFATE 75 MG TAB PO SCH (09:23)
[2018-11-29] MEDS: AMLODIPINE BESYLATE 10 MG TAB PO SCH (09:23)
--- NOTE | 2018-11-29 20:16 | NUR ---
RECEIVED PT IN THE RESTROOM .PT C/O PAIN CALL LIGHT WITH IN REACH .CONTINUE TO MONITOR
[2018-11-29] MEDS: ATORVASTATIN 20 MG TAB PO SCH (21:23)
[2018-11-30] VITALS (8 sets, daily range): BP systolic 110–134; BP diastolic 60–69
[2018-11-30] MEDS ORDERED: PIPER-TAZ 3.375 GM 50 ML IV SCH
[2018-11-30] MEDS ORDERED: METRONIDAZOLE 750MG/NS 150ML 150 ML IV STA (00:12)
[2018-11-30] MEDS: HYDROMORPHONE 1MG/1ML INJ IV PRN ×8 (00:21→22:10)
[2018-11-30] MEDS ORDERED: PIPERACILLIN/TAZO 4.5 GM 100 ML IV STA (00:26)
[2018-11-30] MEDS ORDERED: LACTATED RINGER'S 1,000 ML IV SCH (00:30)
[2018-11-30] MEDS: LACTATED RINGER'S 1,000 ML IV SCH ×6 (00:30→22:45)
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
[2018-11-30] MEDS: METRONIDAZOLE 500MG/NS 100ML 100 ML IV SCH ×4 (05:49→23:43)
[2018-11-30] MEDS: PIPERACILLIN/TAZO 4.5 GM 100 ML IV SCH ×3 (06:00→18:17)
--- NOTE | 2018-11-30 06:32 | NUR ---
PT C/O PAIN Q 3HRS . AND GIVEN ORDERED PAIN MEDICATION .PT IS NPO .CALL LIGHT WITH IN REACH .CONTINUE TO MONITOR
[2018-11-30 06:49] LABS: BASOPHILS # (AUTO) 0.1 (0.0-0.1); BASOPHILS % 0.3 % (0.0-1.0); EOSINOPHILS # (AUTO) 0.5 (0.0-0.4); HEMATOCRIT 41.1 % (38.2-49.6); HEMOGLOBIN 13.8 g/dL (14.0-18.0); LYMPHOCYTES # (AUTO) 1.5 (1.0-3.2); LYMPHOCYTES % 6.8 % (18.0-39.1); MEAN CORPUSCULAR HGB CONC 33.6 g/dL (31-35); MEAN CORPUSCULAR VOLUME 107.3 fL (81-99); MONOCYTES # (AUTO) 2.9 (0.2-0.8); MONOCYTES % 13.1 % (4.4-11.3); NEUTROPHILS # (AUTO) 17.1 (2.1-6.9); PLATELET COUNT 138 x10e3/uL (140-360); RED BLOOD COUNT 3.83 x10e6/uL (4.3-5.7); RED CELL DISTRIBUTION WIDTH 14.2 % (11.7-14.4)
--- NOTE | 2018-11-30 07:00 | NUR ---
RECEIVED PATIENT RESTING IN BED NO SIGNS OF DISTRESS. BED LOW, WHEELS LOCKED, SIDE RAILS X2, CALL LIGHT IN REACH WILL CONTINUE TO MONITOR PATIENT.
--- NOTE | 2018-11-30 07:10 | NUR ---
BEDSIDE REPORT GIVEN TO THE ONCOMING NURSE
[2018-11-30 07:14] LABS: PLATELET ESTIMATE MARKEDLY DECREASED; PLATELET MORPHOLOGY COMMENT FEW LARGE
[2018-11-30 07:30] LABS: ALBUMIN 2.6 g/dL (3.5-5.0); ALBUMIN/GLOBULIN RATIO 0.8 (0.8-2.0); ANION GAP 16.1 mmol/L (8-16); CALCIUM 8.4 mg/dL (8.4-10.2); CREATININE, SERUM 1.6 mg/dL (0.72-1.25); MAGNESIUM 1.3 MG/DL (1.3-2.1); POTASSIUM 4.1 mmol/L (3.5-5.1)
[2018-11-30] MEDS ORDERED: GADOBENATE DIMEGLUMINE 0 ML IV ONE (08:10)
[2018-11-30] MEDS ORDERED: SODIUM CHLORIDE 0.9% 100 ML ONE (08:10)
[2018-11-30] MEDS: ASPIRIN 81 MG CHEW TAB PO SCH (08:24)
[2018-11-30] MEDS: PANTOPRAZOLE 40 MG 10ML VIAL IV SCH ×2 (08:24→20:52)
[2018-11-30] MEDS: CLOPIDOGREL BISULFATE 75 MG TAB PO SCH (08:24)
[2018-11-30] MEDS: AMLODIPINE BESYLATE 10 MG TAB PO SCH (08:25)
[2018-11-30] MEDS: CARVEDILOL 3.125 MG TAB PO SCH ×2 (08:25→20:52)
--- NOTE | 2018-11-30 09:59 | NUR ---
PATIENT A/O X3, EVEN RESPIRATIONS ON RA. LUNG SOUNDS CLEAR TO AUSCULTATION. TELEMETRY #31 SR. RIGHT AC 20 GAUGE IV WITH LR @ 200 CC/HR. LEFT AC 18 GAUGE IV SL. PRN PAIN MEDICATION AVAILABLE. PATIENT AMBULATES INDEPENDENTLY. VS STABLE, SKIN INTACT. CALL LIGHT IN REACH WILL CONTINUE TO MONITOR PATIENT.
--- NOTE | 2018-11-30 10:48 | Diagnostic Imaging Report ---
Abdominal ultrasound. History: Abdominal pain. Comparison: CT 11/27/2018. Discussion: Transverse and longitudinal images of the abdomen were obtained demonstrating a liver of normal size but diffusely increased echogenicity measuring 16.7 cm in length. There is no focal hepatic abnormality. The portal vein is patent with hepatopetal flow and is within normal limits measuring 8 mm in diameter. The biliary tree is within normal limits with the common bile duct measuring 5 mm in diameter. The gallbladder is normal without evidence of stones, wall thickening, or pericholecystic fluid. The sonographic Guerrero's sign was negative. The kidneys are normal in size and echogenicity bilaterally without evidence of hydronephrosis or mass. Punctate calcification is are noted in the right kidney. The right kidney measures 11.3 cm and the left kidney measures 11.7 cm in length. The spleen is absent. The pancreas, IVC, and aorta were obscured by overlying bowel gas. There is no evidence of free fluid. Incidental note is made of a large cm stone within the bladder. IMPRESSION: 1. Fatty infiltration of the liver. 2. No evidence of cholelithiasis. 3. Bladder stone. Signed by: Aakash Pereira on 11/30/2018 10:45 AM
--- NOTE | 2018-11-30 18:54 | NUR ---
Nutrition Screen Note RD Recommendation for Physician: -Advance to low fat diet when medically appropriate Plan of Care: RD following, monitoring for tolerance and adequacy Nutrition reason for involvement: Diagnosis - pancreatitis Primary Diagnose(s): chest pain and pancreatitis PMH: Coronary artery disease status post CABG in February 2017, hypertension, aortic stenosis, hyperlipidemia, and diabetes. Ht: 76 in Wt:228 lb BMI: 27.75 kg/m2 IBW:[address] Assessment: (11/30/18) Chart reviewed. Labs and meds reviewed. Pt is a 63 year old male admitted with chest pain and pancreatitis. Pt is currently NPO. Pt stated he was eating 50% of meals for the past 8-9 days due to decreased appetite. Pt reported he typically weighs 230 lbs. Pt currently has a wt of 228 lbs in chart. Pt reports some nausea and had diarrhea for the past 3 days. Will continue to monitor. Current Diet: NPO Malnutrition Evaluation (11/30/18) The patient does not meet criteria for a specified degree of malnutrition at this time. Will re-evaluate at follow-up as appropriate. Energy intake: 50% of estimated energy requirements for >5 days Weight loss: No weight loss reported Fat loss: no loss identified Muscle loss: no loss identified Supporting Evidence: Fluid accumulation: unable to evaluate Functional Status: unable to evaluate Diet Education Needs Assessment: Diet education not indicated. Pt is currently NPO. Nutrition Care Level: low Signed: Bindu Carmona, RD, LD
[2018-11-30] MEDS: ATORVASTATIN 20 MG TAB PO SCH (20:52)
[2018-12-01] VITALS (8 sets, daily range): BP systolic 99–133; BP diastolic 56–73
[2018-12-01] MEDS ORDERED: HYDRALAZINE HCL 20 MG/ML VIAL IV PRN (00:15)
[2018-12-01] MEDS ORDERED: LACTATED RINGER'S 1,000 ML IV SCH (00:30)
[2018-12-01] MEDS: PIPERACILLIN/TAZO 4.5 GM 100 ML IV SCH ×5 (00:32→23:43)
--- NOTE | 2018-12-01 01:24 | NUR ---
BP RECHECKED 112/64 [facility]
[2018-12-01] MEDS: HYDROMORPHONE 1MG/1ML INJ IV PRN ×2 (01:30→04:30)
[2018-12-01] MEDS: LACTATED RINGER'S 1,000 ML IV SCH ×5 (04:30→21:30)
[2018-12-01] MEDS: METRONIDAZOLE 500MG/NS 100ML 100 ML IV SCH ×4 (05:43→23:08)
[2018-12-01 06:15] LABS: BASOPHILS % 0.3 % (0.0-1.0); EOSINOPHILS # (AUTO) 0.4 (0.0-0.4); EOSINOPHILS % 2.4 % (0.0-6.0); HEMATOCRIT 37.4 % (38.2-49.6); HEMOGLOBIN 12.6 g/dL (14.0-18.0); LYMPHOCYTES # (AUTO) 1.3 (1.0-3.2); LYMPHOCYTES % 8.2 % (18.0-39.1); MEAN CORPUSCULAR HGB CONC 33.7 g/dL (31-35); MEAN CORPUSCULAR VOLUME 106.9 fL (81-99); MONOCYTES # (AUTO) 2.3 (0.2-0.8); MONOCYTES % 15.4 % (4.4-11.3); NEUTROPHILS # (AUTO) 11.1 (2.1-6.9); NEUTROPHILS % 73.2 % (38.7-80.0); PLATELET COUNT 148 x10e3/uL (140-360); RED CELL DISTRIBUTION WIDTH 13.8 % (11.7-14.4)
[2018-12-01 06:48] LABS: ALBUMIN 2.5 g/dL (3.5-5.0); ALBUMIN/GLOBULIN RATIO 0.7 (0.8-2.0); ANION GAP 16.4 mmol/L (8-16); CALCIUM 8.8 mg/dL (8.4-10.2); CREATININE, SERUM 1.68 mg/dL (0.72-1.25); POTASSIUM 4.4 mmol/L (3.5-5.1)
--- NOTE | 2018-12-01 07:00 | NUR ---
RECEIVED PATIENT RESTING IN BED NO SIGNS OF DISTRESS. BED LOW, WHEELS LOCKED, SIDE RAILS X2, CALL LIGHT IN REACH WILL CONTINUE TO MONITOR PATIENT.
[2018-12-01] MEDS ORDERED: DEXTROSE 50% SYRINGE 50 ML IV PRN (07:30)
[2018-12-01] MEDS ORDERED: MORPHINE SULFATE INJ 4 MG/ML INJ 1ML IV PRN (07:30)
[2018-12-01] MEDS: INSULIN LISPRO 100 UNIT/1 ML 3ML VIAL SQ SCH ×4 (07:30→21:00)
[2018-12-01] MEDS: PANTOPRAZOLE 40 MG 10ML VIAL IV SCH ×2 (08:44→21:00)
[2018-12-01] MEDS: CARVEDILOL 3.125 MG TAB PO SCH ×2 (08:44→21:00)
[2018-12-01] MEDS: AMLODIPINE BESYLATE 10 MG TAB PO SCH (10:19)
[2018-12-01] MEDS: ASPIRIN 81 MG CHEW TAB PO SCH (10:19)
[2018-12-01] MEDS: MORPHINE SULFATE 2 MG/ML SYR 1ML IV PRN ×4 (10:19→23:35)
[2018-12-01] MEDS: CLOPIDOGREL BISULFATE 75 MG TAB PO SCH (10:19)
[2018-12-01] MEDS: ATORVASTATIN 20 MG TAB PO SCH (21:01)
[2018-12-02] VITALS (7 sets, daily range): BP systolic 122–151; BP diastolic 68–95
--- NOTE | 2018-12-02 00:36 | NUR ---
Patient is complaining of severe abdominal pain. Seen by Dr. Marco Antonio Lei. No new orders. Spoke with Danuta VELASCO made aware of patient request to change pain medication back to Dilaudid because Morphine doesn't help his pain much. Danuta RADIO PROGRAM DIRECTOR states not to change pain medication. Patient made aware.
[2018-12-02] MEDS: LACTATED RINGER'S 1,000 ML IV SCH ×4 (02:30→17:30)
[2018-12-02 02:34] LABS: BASOPHILS # (AUTO) 0.1 (0.0-0.1); BASOPHILS % 0.5 % (0.0-1.0); EOSINOPHILS # (AUTO) 0.4 (0.0-0.4); EOSINOPHILS % 3.3 % (0.0-6.0); HEMATOCRIT 39.4 % (38.2-49.6); HEMOGLOBIN 13.4 g/dL (14.0-18.0); LYMPHOCYTES # (AUTO) 1.3 (1.0-3.2); LYMPHOCYTES % 9.4 % (18.0-39.1); MEAN CORPUSCULAR HEMOGLOBIN 35.5 pg (28-32); MEAN CORPUSCULAR VOLUME 104.5 fL (81-99); MONOCYTES # (AUTO) 1.9 (0.2-0.8); MONOCYTES % 14.1 % (4.4-11.3); NEUTROPHILS # (AUTO) 9.6 (2.1-6.9); NEUTROPHILS % 72.4 % (38.7-80.0); PLATELET COUNT 145 x10e3/uL (140-360); RED BLOOD COUNT 3.77 x10e6/uL (4.3-5.7); RED CELL DISTRIBUTION WIDTH 13.3 % (11.7-14.4)
[2018-12-02 02:51] LABS: ANION GAP 14.8 mmol/L (8-16); CALCIUM 8.8 mg/dL (8.4-10.2); CREATININE, SERUM 1.4 mg/dL (0.72-1.25); POTASSIUM 3.8 mmol/L (3.5-5.1)
[2018-12-02] MEDS: MORPHINE SULFATE 2 MG/ML SYR 1ML IV PRN ×5 (03:40→22:02)
[2018-12-02] MEDS: METRONIDAZOLE 500MG/NS 100ML 100 ML IV SCH ×3 (05:16→20:00)
[2018-12-02] MEDS: PIPERACILLIN/TAZO 4.5 GM 100 ML IV SCH ×4 (06:16→23:50)
[2018-12-02] MEDS: INSULIN LISPRO 100 UNIT/1 ML 3ML VIAL SQ SCH ×4 (07:30→20:36)
--- NOTE | 2018-12-02 09:00 | NUR ---
STOOL SENT PER MD ORDER
[2018-12-02] MEDS: AMLODIPINE BESYLATE 10 MG TAB PO SCH (09:12)
[2018-12-02] MEDS: CARVEDILOL 3.125 MG TAB PO SCH ×2 (09:12→21:03)
[2018-12-02] MEDS: PANTOPRAZOLE 40 MG 10ML VIAL IV SCH ×2 (09:12→21:03)
[2018-12-02] MEDS: CLOPIDOGREL BISULFATE 75 MG TAB PO SCH (09:12)
[2018-12-02] MEDS: ASPIRIN 81 MG CHEW TAB PO SCH (09:13)
[2018-12-02] MEDS: ONDANSETRON HCL INJ 2MG/ML 2ML 2 MG/ML VIAL IV PRN ×3 (09:14→18:03)
[2018-12-02 10:55] LABS: ANISOCYTOSIS SLIGHT; EOSINOPHILS % (MANUAL) 7 % (0-7); LYMPHOCYTES % (MANUAL) 9 % (19-48); MONOCYTES % (MANUAL) 20 % (3.4-9.0); NEUTROPHILS % (MANUAL) 64 % (40-74); PLATELET ESTIMATE ADEQUATE; PLATELET MORPHOLOGY COMMENT NORMAL; RBC MORPHOLOGY COMMENT NORMAL
--- NOTE | 2018-12-02 12:06 | NUR ---
MD Marisol WALL INTO SEE PT, DISCUSSED POC
--- NOTE | 2018-12-02 18:02 | NUR ---
PT MEDICATED PER MD ORDER FOR -09/17, MID ABD PAIN, PT EDUCATED TO NOT GET OOB , PT VERBALIZED UNDERSTANDING, CALL LIGHT WITHIN REACH
[2018-12-02] MEDS: ATORVASTATIN 20 MG TAB PO SCH (21:03)
[2018-12-03] VITALS (9 sets, daily range): BP systolic 142–158; BP diastolic 77–89
--- NOTE | 2018-12-03 00:42 | NUR ---
SPOKE TO DR. Bertrand PATTEN AT THIS TIME. NEW ORDER RECEIVED TO INCREASE ZOFRAN TO 8MG Q4H PRN. Addendum: 12/03/18 at 0048 by Robinson Hazel RN MD ALSO ORDERED MRI/MRCP WO.
[2018-12-03] MEDS: ONDANSETRON HCL INJ 2MG/ML 2ML 2 MG/ML VIAL IV PRN ×4 (01:10→18:53)
[2018-12-03] MEDS: LACTATED RINGER'S 1,000 ML IV SCH ×6 (01:10→20:43)
--- NOTE | 2018-12-03 01:12 | NUR ---
SPOKE TO DR. Bertrand PATTEN AT THIS TIME. ORDERED 1000ML BOLUS OF LACTATED RINGERS.
[2018-12-03] MEDS ORDERED: LACTATED RINGER'S 1,000 ML IV ONE ×2 (01:15→01:30)
[2018-12-03] MEDS: METRONIDAZOLE 500MG/NS 100ML 100 ML IV SCH ×4 (01:30→20:10)
[2018-12-03] MEDS: MORPHINE SULFATE 2 MG/ML SYR 1ML IV PRN ×6 (02:05→23:06)
[2018-12-03 02:45] LABS: BASOPHILS # (AUTO) 0.1 (0.0-0.1); BASOPHILS % 0.5 % (0.0-1.0); EOSINOPHILS # (AUTO) 0.4 (0.0-0.4); EOSINOPHILS % 4.5 % (0.0-6.0); HEMATOCRIT 40.1 % (38.2-49.6); HEMOGLOBIN 14.3 g/dL (14.0-18.0); LYMPHOCYTES # (AUTO) 0.6 (1.0-3.2); LYMPHOCYTES % 6.6 % (18.0-39.1); MEAN CORPUSCULAR HEMOGLOBIN 36.2 pg (28-32); MEAN CORPUSCULAR HGB CONC 35.7 g/dL (31-35); MEAN CORPUSCULAR VOLUME 101.5 fL (81-99); MONOCYTES # (AUTO) 1.5 (0.2-0.8); MONOCYTES % 15.5 % (4.4-11.3); NEUTROPHILS % 72.6 % (38.7-80.0); PLATELET COUNT 155 x10e3/uL (140-360); RED BLOOD COUNT 3.95 x10e6/uL (4.3-5.7)
--- NOTE | 2018-12-03 03:12 | NUR ---
INFORMED DR. Bertrand PATTEN AT THIS TIME THAT RADIOLOGY DEPARTMENT SAID THEY CANNOT DO THE MRI/MRCP UNTIL Wednesday12/05/18 EVEN IF THE ORDER IS CHANGED TO STAT, THEY STILL DO NOT HAVE ANYBODY PROGRAM PROPOSALS COORDINATOR TO DO IT. Addendum: 12/03/18 at 0318 by Robinson Hazel RN NO NEW ORDER
[2018-12-03] MEDS: PIPERACILLIN/TAZO 4.5 GM 100 ML IV SCH ×3 (06:00→17:51)
[2018-12-03 06:40] LABS: ALBUMIN 2.3 g/dL (3.5-5.0); ALBUMIN/GLOBULIN RATIO 0.6 (0.8-2.0); ANION GAP 16.8 mmol/L (8-16); CALCIUM 8.4 mg/dL (8.4-10.2); CREATININE, SERUM 1.32 mg/dL (0.72-1.25); POTASSIUM 3.8 mmol/L (3.5-5.1)
[2018-12-03] MEDS: INSULIN LISPRO 100 UNIT/1 ML 3ML VIAL SQ SCH ×4 (07:30→20:10)
[2018-12-03] MEDS: PANTOPRAZOLE 40 MG 10ML VIAL IV SCH ×2 (08:30→20:42)
[2018-12-03] MEDS: CLOPIDOGREL BISULFATE 75 MG TAB PO SCH (08:30)
[2018-12-03] MEDS: AMLODIPINE BESYLATE 10 MG TAB PO SCH (08:30)
[2018-12-03] MEDS: CARVEDILOL 3.125 MG TAB PO SCH ×2 (08:30→20:42)
[2018-12-03] MEDS: ASPIRIN 81 MG CHEW TAB PO SCH (08:30)
--- NOTE | 2018-12-03 09:30 | NUR ---
SPOKE WITH MD Bertrand PATTEN, GAVE RADIOLOGIST NUMBER, MD PATTEN CANCELLED MRI DUR TO CURRENT STENTS PLACED
--- NOTE | 2018-12-03 10:51 | NUR ---
YENNIFER VELASCO AND MD PADILLA INTO SEE PT, DISCUSSED POC, ORDERS NOTED
--- NOTE | 2018-12-03 11:00 | NUR ---
MEDICATED PER MD ORDER FOR 810 ABD PAIN, EDUCATED TO CALL FOR ASSISTANCE BEFORE GETTING OOB, PT VERBALIZED UNDERSTANDING
--- NOTE | 2018-12-03 11:13 | NUR ---
PT WHEELED OFF UNIT VIA WC FOR KUB, NO CHANGE IN CONDITION
--- NOTE | 2018-12-03 11:44 | NUR ---
BACK IN ROOM VIA WC, REPORTS PAIN "BETTER", CALL LIGHT WITHIN REACH
--- NOTE | 2018-12-03 13:02 | Diagnostic Imaging Report ---
EXAM: Abdomen 2 radiographs INDICATION: ^ABD PAIN ^[id number] ^1100 ^Y COMPARISON: CT dated 11/27/2018 FINDINGS: Nonobstructive bowel gas pattern. No signs of pneumoperitoneum. No acute osseous abnormality. Pelvic calcification, representing bladder calculus, seen on prior CT. Lung bases showed enlarged cardiac silhouette with partially seen median sternotomy wires and mediastinal surgical clips. Left lung basilar subsegmental atelectasis/scarring. 4 mm right renal inferior pole calculus. IMPRESSION: 1. Nonobstructive bowel gas pattern. No evidence of pneumoperitoneum. 2. Subcentimeter nonobstructive right renal calculus. 3. Bladder calculus. Signed by: Dr. Ronny Soto MD on 12/03/2018 12:59 PM
[2018-12-03] MEDS: ATORVASTATIN 20 MG TAB PO SCH (20:43)
[2018-12-04] VITALS (7 sets, daily range): BP systolic 137–159; BP diastolic 76–91
--- NOTE | 2018-12-04 01:03 | NUR ---
DR. Bertrand PATTEN DOING ROUNDS. SAID PATIENT OK TO HAVE ICE CHIPS
[2018-12-04] MEDS: METRONIDAZOLE 500MG/NS 100ML 100 ML IV SCH ×4 (02:00→20:23)
[2018-12-04] MEDS: MORPHINE SULFATE 2 MG/ML SYR 1ML IV PRN ×6 (02:30→23:36)
[2018-12-04 03:15] LABS: BASOPHILS # (AUTO) 0.1 (0.0-0.1); BASOPHILS % 0.9 % (0.0-1.0); EOSINOPHILS # (AUTO) 0.4 (0.0-0.4); EOSINOPHILS % 4.7 % (0.0-6.0); HEMATOCRIT 40.8 % (38.2-49.6); HEMOGLOBIN 14.5 g/dL (14.0-18.0); LYMPHOCYTES # (AUTO) 1.2 (1.0-3.2); LYMPHOCYTES % 14.9 % (18.0-39.1); MEAN CORPUSCULAR HEMOGLOBIN 36.1 pg (28-32); MEAN CORPUSCULAR HGB CONC 35.5 g/dL (31-35); MEAN CORPUSCULAR VOLUME 101.5 fL (81-99); MONOCYTES # (AUTO) 2.1 (0.2-0.8); MONOCYTES % 26.8 % (4.4-11.3); NEUTROPHILS # (AUTO) 4.1 (2.1-6.9); NEUTROPHILS % 52.2 % (38.7-80.0); PLATELET COUNT 176 x10e3/uL (140-360); RED BLOOD COUNT 4.02 x10e6/uL (4.3-5.7); RED CELL DISTRIBUTION WIDTH 12.9 % (11.7-14.4)
[2018-12-04 03:27] LABS: ANION GAP 15.7 mmol/L (8-16); CREATININE, SERUM 1.42 mg/dL (0.72-1.25); POTASSIUM 3.7 mmol/L (3.5-5.1)
[2018-12-04] MEDS: PIPERACILLIN/TAZO 4.5 GM 100 ML IV SCH ×4 (05:46→16:40)
[2018-12-04] MEDS: LACTATED RINGER'S 1,000 ML IV SCH ×3 (05:46→19:30)
[2018-12-04 06:31] LABS: EOSINOPHILS % (MANUAL) 3 % (0-7); LYMPHOCYTES % (MANUAL) 12 % (19-48); MONOCYTES % (MANUAL) 15 % (3.4-9.0); NEUTROPHILS % (MANUAL) 68 % (40-74); PLATELET ESTIMATE ADEQUATE; PLATELET MORPHOLOGY COMMENT NORMAL; RBC MORPHOLOGY COMMENT NORMAL
[2018-12-04] MEDS: INSULIN LISPRO 100 UNIT/1 ML 3ML VIAL SQ SCH ×4 (07:30→21:00)
[2018-12-04] MEDS: CLOPIDOGREL BISULFATE 75 MG TAB PO SCH (08:37)
[2018-12-04] MEDS: ASPIRIN 81 MG CHEW TAB PO SCH (08:37)
[2018-12-04] MEDS: CARVEDILOL 3.125 MG TAB PO SCH ×2 (08:37→21:13)
[2018-12-04] MEDS: PANTOPRAZOLE 40 MG 10ML VIAL IV SCH ×2 (08:37→21:13)
[2018-12-04] MEDS: AMLODIPINE BESYLATE 10 MG TAB PO SCH (08:37)
--- NOTE | 2018-12-04 12:50 | NUR ---
Per Dr.M. Lei "hold PICC line placement until further notice. Call me with CT of abdomen results and I'll let you know if PICC line needs to be placed for TPN."
[2018-12-04 13:07] LABS: ALBUMIN 2.3 g/dL (3.5-5.0); BILIRUBIN,DIRECT 0.3 mg/dL (0.0-0.5)
--- NOTE | 2018-12-04 15:30 | NUR ---
Paged to notify of CT results. Awaiting for call back
--- NOTE | 2018-12-04 16:47 | Diagnostic Imaging Report ---
EXAM: CT Abdomen WITHOUT contrast INDICATION: ^Pancreatitis with oral contrast only COMPARISON: KUB 12/03/2018, abdominal ultrasound 11/30/2018, CT abdomen and pelvis 11/27/2018 TECHNIQUE: Abdomen was scanned utilizing a multidetector helical scanner without administration of IV contrast. Absence of intravenous contrast decreases sensitivity for detection of focal lesions and vascular pathology. Coronal and sagittal reformations were obtained. Routine protocol was performed. IV CONTRAST: None. ORAL CONTRAST: Water RADIATION DOSE: Total DLP: 595.3 mGy*cm Estimated effective dose: (DLP x 0.015 x size factor) mSv COMPLICATIONS: None FINDINGS: LINES and TUBES: None. LOWER THORAX: Ectasia of the ascending thoracic aorta (4.5 cm). Moderate coronary artery calcifications. Moderate calcifications of the aortic valve. Cardiomegaly. Interval development of a small bilateral pleural effusions with adjacent subsegmental atelectasis. Partially visualized median sternotomy. HEPATOBILIARY: Diffuse hepatic steatosis. No focal hepatic lesions. No biliary ductal dilation. GALLBLADDER: No radio-opaque stones or sludge. Persistent circumferential wall thickening of the gallbladder likely due to hypoproteinemia. SPLEEN: No splenomegaly. PANCREAS: Improved fat stranding surrounding the pancreatic head, however, there has been interval development of moderate fat stranding surrounding the distal pancreatic body and tail. No pseudocyst, fluid collection, pancreatic microcystic, or abscess. No dilatation of the pancreatic duct. Persistent few calcifications in the pancreatic head. ADRENALS: No adrenal nodules KIDNEYS/URETERS: No hydronephrosis. No cystic or solid mass lesions. Unchanged nonobstructing right renal stone. GI TRACT: No abnormal distention, wall thickening, or evidence of bowel obstruction of the partially visualized bowel. LYMPH NODES: Few mesenteric subcentimeter lymph nodes are unchanged and likely reactive. VESSELS: Unremarkable. PERITONEUM / RETROPERITONEUM: No free air or fluid. BONES: Multilevel degenerative changes of the lumbar spine. Partial visualized median sternotomy wires. SOFT TISSUES: Unremarkable. IMPRESSION: 1. Improving pancreatitis around the pancreatic head but interval development of inflammatory changes surrounding the distal body and tail. No pseudocyst, fluid collection, or pancreatic necrosis. 2. Persistent gallbladder wall thickening which may reflect hypoproteinemia. Differential diagnosis includes acalculus cholecystitis. 3. New small bilateral pleural effusions likely related to pancreatitis. Signed by: Dr. Lizbet Spear M.D. on 12/04/2018 4:44 PM
--- NOTE | 2018-12-04 17:30 | NUR ---
Repaged to notify of CT results awaiting for call back
--- NOTE | 2018-12-04 18:31 | NUR ---
Danuta Montez NP aware of CT results. See orders
--- NOTE | 2018-12-04 19:10 | NUR ---
Report given to oncoming nurse of patient's status. Resting in bed. No s/s of acute distress noted. Side rails upx2, call light within reach.
[2018-12-04] MEDS: FUROSEMIDE INJ 10 MG/ML 2 ML VIAL IV SCH (20:10)
[2018-12-04] MEDS: ATORVASTATIN 20 MG TAB PO SCH (21:13)
[2018-12-05] VITALS (8 sets, daily range): BP systolic 113–155; BP diastolic 70–83
--- NOTE | 2018-12-05 00:31 | NUR ---
Verbal report received from radiologist Dr Victoria, PICC tip is at the cavoatrial junction. PICC is OK to use
--- NOTE | 2018-12-05 00:37 | Diagnostic Imaging Report ---
EXAMINATION: CHEST XRAY LINE PLACEMENT INDICATION: PICC placement, verify position COMPARISON: Abdominal CT 12/04/2018 FINDINGS: AP view TUBES and LINES: Left upper extremity PICC tip terminates in the cavoatrial junction.. LUNGS/PLEURA: Lungs are well inflated. The left hemidiaphragm is partly obscured, consistent with pleural effusion seen on day prior abdominal CT. Prominent pulmonary vasculature. No pneumothorax. HEART AND MEDIASTINUM: The cardiomediastinal silhouette is mildly enlarged.. BONES AND SOFT TISSUES: No acute osseous lesion. Soft tissues are unremarkable. Sternotomy wires intact. Healed nondisplaced left lower rib fractures. UPPER ABDOMEN: No free air under the diaphragm. IMPRESSION: Left upper extremity PICC tip terminates in the cavoatrial junction. Mild cardiomegaly and pulmonary vascular congestion and small bilateral pleural effusions. Signed by: Huy Victoria DO on 12/05/2018 12:33 AM
[2018-12-05] MEDS: PIPERACILLIN/TAZO 4.5 GM 100 ML IV SCH ×4 (01:32→18:30)
[2018-12-05] MEDS: METRONIDAZOLE 500MG/NS 100ML 100 ML IV SCH (02:00)
[2018-12-05] MEDS: MORPHINE SULFATE 2 MG/ML SYR 1ML IV PRN ×7 (03:00→23:36)
[2018-12-05 03:28] LABS: BASOPHILS % 0.5 % (0.0-1.0); EOSINOPHILS # (AUTO) 0.3 (0.0-0.4); EOSINOPHILS % 3.6 % (0.0-6.0); LYMPHOCYTES # (AUTO) 1.6 (1.0-3.2); MEAN CORPUSCULAR HEMOGLOBIN 35.3 pg (28-32); MEAN CORPUSCULAR VOLUME 100.8 fL (81-99); MONOCYTES # (AUTO) 1.6 (0.2-0.8); MONOCYTES % 18.3 % (4.4-11.3); NEUTROPHILS % 58.2 % (38.7-80.0); PLATELET COUNT 188 x10e3/uL (140-360); RED BLOOD COUNT 3.97 x10e6/uL (4.3-5.7); RED CELL DISTRIBUTION WIDTH 12.8 % (11.7-14.4)
[2018-12-05 03:47] LABS: ANION GAP 16.3 mmol/L (8-16); CALCIUM 8.4 mg/dL (8.4-10.2); CREATININE, SERUM 1.38 mg/dL (0.72-1.25); POTASSIUM 3.3 mmol/L (3.5-5.1)
[2018-12-05 06:48] LABS: PLATELET MORPHOLOGY COMMENT FEW LARGE; RBC MORPHOLOGY COMMENT NORMAL
--- NOTE | 2018-12-05 07:00 | NUR ---
RECEIVED PATIENT RESTING IN BED NO SIGNS OF DISTRESS. BED LOW, WHEELS LOCKED, SIDE RAILS X2. CALL LIGHT IN REACH WILL CONTINUE TO MONITOR PATIENT.
[2018-12-05] MEDS: INSULIN LISPRO 100 UNIT/1 ML 3ML VIAL SQ SCH ×4 (07:30→20:11)
[2018-12-05] MEDS ORDERED: POTASSIUM CHLORIDE 20MEQ/100ML 100 ML IV ONE ×2 (09:00→10:30)
[2018-12-05] MEDS: LACTATED RINGER'S 1,000 ML IV SCH ×5 (09:23→23:37)
[2018-12-05] MEDS: ASPIRIN 81 MG CHEW TAB PO SCH (09:35)
[2018-12-05] MEDS: CARVEDILOL 3.125 MG TAB PO SCH ×2 (09:35→20:09)
[2018-12-05] MEDS: POTASSIUM CHLORIDE 20MEQ/100ML 100 ML IV SCH (09:35)
[2018-12-05] MEDS: PANTOPRAZOLE 40 MG 10ML VIAL IV SCH ×2 (09:35→20:09)
[2018-12-05] MEDS: CLOPIDOGREL BISULFATE 75 MG TAB PO SCH (09:35)
[2018-12-05] MEDS: AMLODIPINE BESYLATE 10 MG TAB PO SCH (09:35)
[2018-12-05] MEDS: FUROSEMIDE INJ 10 MG/ML 2 ML VIAL IV SCH ×2 (09:35→16:24)
--- NOTE | 2018-12-05 12:00 | NUR ---
PATIENT TRANSFERRED TO ROOM 203. LEFT IN STABLE CONDITION.
--- NOTE | 2018-12-05 12:00 | NUR ---
PT RECEIVED FROM [facility]. PT IS AAOX4. EDUCATED PT ABOUT FALL PRECAUTIONS. CALL LIGHT WITH IN EASY REACH. INSTRUCTED PT TO CALL FOR ANY NEEDS. PT VERBALIZED UNDERSTANDING. BED IS LOW AND LOCKED. SIDE RAILS X2. PT DENIES NEEDS AT THIS TIME.
--- NOTE | 2018-12-05 12:05 | NUR ---
K 3.3. KCL IV ALREADY ADMINISTERED PER THE TRANSFER REPORT.
--- NOTE | 2018-12-05 12:39 | NUR ---
Nutrition Screen Note RD Recommendation for Physician: - TPN rec's: TV 1080 at 42 ml/hr, Dextrose 30% 500 ml/L, AA10% 500 ml/L, no lipids, NaCl 65 mEq/L, KCl 25 mEq/L, KPhos 12 mmol/L, Mg Sulfate 12 mEq/L, Ca Gluconate 5 mEq/L, MVI, trace, thiamine. - IVF per MD - Please check Mg, Phos, and TG with am BMP. Plan of Care: RD following, monitoring for tolerance and adequacy. TPN rec's Nutrition reason for involvement: TPN consult Primary Diagnose(s): chest pain and pancreatitis PMH: Coronary artery disease status post CABG in February 2017, hypertension, aortic stenosis, hyperlipidemia, and diabetes. Ht: 76 in Wt:228 lb BMI: 27.75 kg/m2 IBW:[address] Assessment: 12/05: Pt seen today per GEOPHYSICAL PROSPECTING PERMIT AGENT consult for TPN. Pt NPO x day 7. Pt reports continued abdominal pain 2/2 pancreatitis, still having BMs and denies N/V. Per RN pt with central access. TPN rec's provided via TPN form in patient's chart. Chart reviewed, will continue to monitor. (11/30/18) Chart reviewed. Labs and meds reviewed. Pt is a 63 year old male admitted with chest pain and pancreatitis. Pt is currently NPO. Pt stated he was eating 50% of meals for the past 8-9 days due to decreased appetite. Pt reported he typically weighs 230 lbs. Pt currently has a wt of 228 lbs in chart. Pt reports some nausea and had diarrhea for the past 3 days. Will continue to monitor. IVF: LR off at time of visit, pt pending floor transfer GI: LBM 12/03 Skin: intact Labs: 12/05: Na 132, K 3.3, Cl 96, CO2 23, Gluc 122, Ca 8.4, no Phos or Mg Meds: lasix, protonix, lipitor Malnutrition Evaluation (11/30/18) The patient does not meet criteria for a specified degree of malnutrition at this time. Will re-evaluate at follow-up as appropriate. Energy intake: 50% of estimated energy requirements for >5 days Weight loss: No weight loss reported Fat loss: no loss identified Muscle loss: no loss identified Supporting Evidence: Fluid accumulation: unable to evaluate Functional Status: unable to evaluate Diet Education Needs Assessment: Diet education not indicated. Pt is currently NPO. Nutrition Prescription (Diet Order): NPO Estimated Nutritional Needs: 1339-3086 calories/day (22-25 kcal/kg IBW) 138-184 g protein/day (1.5-2 g pro/kg IBW) Diet Adequacy:Not meeting calorie needs, Not meeting protein needs Diet Tolerance: tolerance pending Nutrition Care Level: high- new TPN Nutrition Diagnosis: Inadequate energy and protein intake related to pancreatitis as evidenced by pt remains NPO and pending TPN initiation. Goal: Patient will meet 75-100% of estimated needs by follow up Progress: N/A Interventions: -Composition, Rate, Route, IVF, Recommended Modifications, Collaboration with other providers Monitoring/Evaluation: -Total energy intake, Total protein intake, Formula/Solution Signed: Shani Massey RD, LD, CNSC
--- NOTE | 2018-12-05 12:40 | NUR ---
LFA 18G IV REMOVED. TIP INTACT. DRESSING APPLIED. PT DENIED FURTHER NEEDS.
--- NOTE | 2018-12-05 15:00 | NUR ---
PAGED YONATAN VELASCO REGARDING LR ORDER AND DOSAGE.
--- NOTE | 2018-12-05 19:00 | NUR ---
BEDSIDE SHIFT REPORT GIVEN TO THE SECURITY COORDINATOR RN. PT DENIED FURTHER NEEDS.
[2018-12-05] MEDS: ATORVASTATIN 20 MG TAB PO SCH (20:09)
[2018-12-06] VITALS (8 sets, daily range): BP systolic 98–147; BP diastolic 64–80
[2018-12-06] MEDS: LACTATED RINGER'S 1,000 ML IV SCH ×5 (01:30→21:30)
[2018-12-06] MEDS: MORPHINE SULFATE 2 MG/ML SYR 1ML IV PRN ×6 (03:12→21:01)
[2018-12-06 03:19] LABS: BASOPHILS # (AUTO) 0.1 (0.0-0.1); BASOPHILS % 0.7 % (0.0-1.0); EOSINOPHILS # (AUTO) 0.4 (0.0-0.4); HEMATOCRIT 41.9 % (38.2-49.6); HEMOGLOBIN 14.4 g/dL (14.0-18.0); LYMPHOCYTES # (AUTO) 1.8 (1.0-3.2); LYMPHOCYTES % 19.6 % (18.0-39.1); MEAN CORPUSCULAR HEMOGLOBIN 34.5 pg (28-32); MEAN CORPUSCULAR HGB CONC 34.4 g/dL (31-35); MEAN CORPUSCULAR VOLUME 100.5 fL (81-99); MONOCYTES # (AUTO) 1.4 (0.2-0.8); MONOCYTES % 15.4 % (4.4-11.3); NEUTROPHILS # (AUTO) 5.5 (2.1-6.9); NEUTROPHILS % 60.1 % (38.7-80.0); PLATELET COUNT 196 x10e3/uL (140-360); RED BLOOD COUNT 4.17 x10e6/uL (4.3-5.7); RED CELL DISTRIBUTION WIDTH 12.8 % (11.7-14.4)
[2018-12-06 03:39] LABS: ALBUMIN 2.5 g/dL (3.5-5.0); BILIRUBIN,DIRECT 0.4 mg/dL (0.0-0.5)
[2018-12-06 03:48] LABS: ANION GAP 16.5 mmol/L (8-16); CALCIUM 8.6 mg/dL (8.4-10.2); CREATININE, SERUM 1.61 mg/dL (0.72-1.25); POTASSIUM 3.5 mmol/L (3.5-5.1)
[2018-12-06] MEDS: PIPERACILLIN/TAZO 4.5 GM 100 ML IV SCH ×4 (06:14→18:00)
--- NOTE | 2018-12-06 07:00 | NUR ---
BEDSIDE SHIFT REPORT RECEIVED FROM THE HOT DIE PICKER RN. PT IS AAOX4. EDUCATED PT ABOUT FALL PRECAUTIONS. CALL LIGHT WITH IN EASY REACH. INSTRUCTED PT TO CALL FOR ANY NEEDS. PT VERBALIZED UNDERSTANDING. BED IS LOW AND LOCKED. SIDE RAILS X2. PT DENIES NEEDS AT THIS TIME.
--- NOTE | 2018-12-06 07:15 | NUR ---
REPORT GIVEN TO ONCOMING NURSE.WALKING ROUNDS MADE.PT RESTING IN BED WITH NO S/S OF DISTRESS.
[2018-12-06] MEDS: INSULIN LISPRO 100 UNIT/1 ML 3ML VIAL SQ SCH ×4 (08:15→21:00)
[2018-12-06] MEDS: FUROSEMIDE INJ 10 MG/ML 2 ML VIAL IV SCH ×2 (09:19→16:43)
[2018-12-06] MEDS: PANTOPRAZOLE 40 MG 10ML VIAL IV SCH ×2 (09:20→21:00)
[2018-12-06] MEDS: CLOPIDOGREL BISULFATE 75 MG TAB PO SCH (09:23)
[2018-12-06] MEDS: ASPIRIN 81 MG CHEW TAB PO SCH (09:23)
[2018-12-06] MEDS: CARVEDILOL 3.125 MG TAB PO SCH ×2 (09:30→21:00)
[2018-12-06] MEDS: AMLODIPINE BESYLATE 10 MG TAB PO SCH (09:31)
[2018-12-06] MEDS: POTASSIUM CHLORIDE 20MEQ/100ML 100 ML IV SCH (09:33)
--- NOTE | 2018-12-06 11:25 | NUR ---
PAGED DR. Marco Antonio PATTEN REGARDING ADVANCING THE DIET. CHANGE CLEAR LIQUID TO FULL LIQUID PER THE
--- NOTE | 2018-12-06 16:07 | NUR ---
Spoke with Melonie Wolfe with [facility]. LTAC referral was started yesterday and has been denied by insurance. P2P offered. CM spoke with KRISTA Tipton regarding denial. States pt currently on FLD and will not need LTAC if pt tolerates diet. Updated Melonie.
--- NOTE | 2018-12-06 17:30 | NUR ---
Nutrition Intervention Note RD Recommendation for Physician: -Advance to low fat diet when medically appropriate -Ensure Clear BID for added nutrition at this time Plan of Care: RD following, monitoring for tolerance and adequacy. Nutrition reason for involvement: consult Primary Diagnose(s): chest pain and pancreatitis PMH: Coronary artery disease status post CABG in February 2017, hypertension, aortic stenosis, hyperlipidemia, and diabetes. Ht: 76 in Wt:228 lb BMI: 27.75 kg/m2 IBW:[address] Assessment: 12/06: Received consult for nutrition assessment. TPN was not started and pts diet was advanced. Pt was on a full liquid diet at time of visit. Pt stated he has been tolerating current diet and has been consuming >50% of liquids. No N/V/D/C reported at time of visit. No issues with chewing/swallowing. Will continue to monitor. 12/05: Pt seen today per WOOD SCALER consult for TPN. Pt NPO x day 7. Pt reports continued abdominal pain 2/2 pancreatitis, still having BMs and denies N/V. Per RN pt with central access. TPN rec's provided via TPN form in patient's chart. Chart reviewed, will continue to monitor. (11/30/18) Chart reviewed. Labs and meds reviewed. Pt is a 63 year old male admitted with chest pain and pancreatitis. Pt is currently NPO. Pt stated he was eating 50% of meals for the past 8-9 days due to decreased appetite. Pt reported he typically weighs 230 lbs. Pt currently has a wt of 228 lbs in chart. Pt reports some nausea and had diarrhea for the past 3 days. Will continue to monitor. GI: LBM 12/05, liquid stools Skin: intact Labs: 12/06: Na 133, Creat 2.62, Lipase 349 12/05: Na 132, K 3.3, Cl 96, CO2 23, Gluc 122, Ca 8.4, no Phos or Mg Meds: insulin lispro, piperacilin/tazobactem, lactate ringers, protonix, lasix, Lipitor, zofran, metroprolol Malnutrition Evaluation (11/30/18) The patient does not meet criteria for a specified degree of malnutrition at this time. Will re-evaluate at follow-up as appropriate. Energy intake: 50% of estimated energy requirements for >5 days Weight loss: No weight loss reported Fat loss: no loss identified Muscle loss: no loss identified Supporting Evidence: Fluid accumulation: unable to evaluate Functional Status: unable to evaluate Diet Education Needs Assessment: Diet education not indicated. Pt is on a temporary/transition diet. Nutrition Prescription (Diet Order): Full Liquids Estimated Nutritional Needs: 1427-7803 calories/day (22-25 kcal/kg IBW) 138-184 g protein/day (1.5-2 g pro/kg IBW) Diet Adequacy:Not meeting calorie needs, Not meeting protein needs due to liquid diet Diet Tolerance: tolerating PO Nutrition Care Level: low pt is not receiving TPN at this time Nutrition Diagnosis: Inadequate energy and protein intake related to pancreatitis as evidenced by liquid diet. Goal: Patient will meet 75-100% of estimated needs by follow up Progress: Pt is tolerating liquid diet Interventions: Recommend fat-modified diet when appropriate, Commercial beverage Monitoring/Evaluation: Total energy intake, Total protein intake, Modified diet, Liquid supplement, Weight change Signed: Bindu Carmona RD, LD
--- NOTE | 2018-12-06 19:00 | NUR ---
BEDSIDE SHIFT REPORT GIVEN TO THE WEATHER OBSERVER RN. PT DENIED FURTHER NEEDS.
[2018-12-06] MEDS: ATORVASTATIN 20 MG TAB PO SCH (21:00)
[2018-12-07] VITALS (8 sets, daily range): BP systolic 107–141; BP diastolic 64–80
[2018-12-07] MEDS: MORPHINE SULFATE 2 MG/ML SYR 1ML IV PRN ×6 (00:01→22:45)
[2018-12-07] MEDS: PIPERACILLIN/TAZO 4.5 GM 100 ML IV SCH ×5 (00:05→23:07)
--- NOTE | 2018-12-07 01:36 | NUR ---
DR Bertrand PATTEN IN UNIT SAW PT.N/O'S RECEIVED.
[2018-12-07 03:50] LABS: BASOPHILS % 0.3 % (0.0-1.0); EOSINOPHILS # (AUTO) 0.3 (0.0-0.4); EOSINOPHILS % 3.4 % (0.0-6.0); HEMATOCRIT 38.6 % (38.2-49.6); HEMOGLOBIN 13.2 g/dL (14.0-18.0); LYMPHOCYTES # (AUTO) 1.8 (1.0-3.2); LYMPHOCYTES % 20.9 % (18.0-39.1); MEAN CORPUSCULAR HEMOGLOBIN 35.1 pg (28-32); MEAN CORPUSCULAR HGB CONC 34.2 g/dL (31-35); MEAN CORPUSCULAR VOLUME 102.7 fL (81-99); MONOCYTES # (AUTO) 1.4 (0.2-0.8); MONOCYTES % 15.4 % (4.4-11.3); NEUTROPHILS # (AUTO) 5.3 (2.1-6.9); NEUTROPHILS % 59.8 % (38.7-80.0); PLATELET COUNT 231 x10e3/uL (140-360); RED BLOOD COUNT 3.76 x10e6/uL (4.3-5.7); RED CELL DISTRIBUTION WIDTH 12.8 % (11.7-14.4)
[2018-12-07] MEDS: LACTATED RINGER'S 1,000 ML IV SCH ×2 (04:03→17:23)
[2018-12-07 04:09] LABS: ANION GAP 13.4 mmol/L (8-16); CALCIUM 8.4 mg/dL (8.4-10.2); CREATININE, SERUM 1.83 mg/dL (0.72-1.25); POTASSIUM 3.4 mmol/L (3.5-5.1)
[2018-12-07] MEDS ORDERED: POTASSIUM CHLORIDE 20 MEQ TAB CR PO ONE (06:59)
--- NOTE | 2018-12-07 07:00 | NUR ---
The pt. called for pain med at rounds and was given p o med as well as potassium per new orders. He was advise that his iv med is still available at q6h intervals.
[2018-12-07] MEDS: ACETAMINOPHEN/CODEINE 300MG - 30MG TAB PO PRN ×2 (07:07→18:56)
--- NOTE | 2018-12-07 07:07 | NUR ---
REPORT GIVEN TO ONCOMING NURSE.WALKING ROUNDS MADE.PT RESTING IN BED WITH NO S/S OF DISTRESS.
[2018-12-07] MEDS: INSULIN LISPRO 100 UNIT/1 ML 3ML VIAL SQ SCH ×4 (07:30→21:15)
[2018-12-07] MEDS: ASPIRIN 81 MG CHEW TAB PO SCH (08:28)
[2018-12-07] MEDS: PANTOPRAZOLE 40 MG 10ML VIAL IV SCH ×2 (08:28→20:22)
[2018-12-07] MEDS: GLIMEPIRIDE 2 MG TAB PO SCH (08:28)
[2018-12-07] MEDS: FUROSEMIDE INJ 10 MG/ML 2 ML VIAL IV SCH ×2 (08:28→17:53)
[2018-12-07] MEDS: AMLODIPINE BESYLATE 10 MG TAB PO SCH (08:29)
[2018-12-07] MEDS: CARVEDILOL 3.125 MG TAB PO SCH ×2 (08:29→20:22)
[2018-12-07] MEDS: CLOPIDOGREL BISULFATE 75 MG TAB PO SCH (08:29)
[2018-12-07] MEDS: POTASSIUM CHLORIDE 20MEQ/100ML 100 ML IV SCH (08:34)
--- NOTE | 2018-12-07 13:50 | NUR ---
Diet education consult Diet Education Needs Assessment: Diet education indicated, pt receptive 12/07 Learner(s): pt Barriers: none Cultural/Language Modifications: none Readiness: ready Method: handout, discussion Topics: diet restrictions/recommendations for pancreatitis Understanding/Compliance: good Signed: Shani Massey RD, LD, [facility]
--- NOTE | 2018-12-07 19:10 | NUR ---
PATIENT RECEIVED. PATIENT IS RESTING IN BE, AAOX3. RESP EVEN AND UNLABORED. NO ACUTE DISTRESS NOTED. TELE IN PLACE. NO NEED VOIDED AT THIS TIME. CALL LIGHT WITHIN REACH. INSTRUCT TO CALL FOR ASSISTANCE. BED LOW/LOCKED. CONTINUE TO MONITOR CLOSELY
[2018-12-07] MEDS: ATORVASTATIN 20 MG TAB PO SCH (20:22)
[2018-12-08] VITALS (8 sets, daily range): BP systolic 111–140; BP diastolic 56–80
[2018-12-08] MEDS: ACETAMINOPHEN/CODEINE 300MG - 30MG TAB PO PRN ×3 (01:35→16:35)
[2018-12-08] MEDS: LACTATED RINGER'S 1,000 ML IV SCH ×2 (03:15→20:56)
[2018-12-08 04:18] LABS: BASOPHILS # (AUTO) 0.1 (0.0-0.1); BASOPHILS % 0.7 % (0.0-1.0); EOSINOPHILS # (AUTO) 0.4 (0.0-0.4); EOSINOPHILS % 4.8 % (0.0-6.0); HEMATOCRIT 38.2 % (38.2-49.6); HEMOGLOBIN 13.4 g/dL (14.0-18.0); LYMPHOCYTES # (AUTO) 2.2 (1.0-3.2); MEAN CORPUSCULAR HEMOGLOBIN 35.7 pg (28-32); MEAN CORPUSCULAR HGB CONC 35.1 g/dL (31-35); MEAN CORPUSCULAR VOLUME 101.9 fL (81-99); MONOCYTES # (AUTO) 1.2 (0.2-0.8); MONOCYTES % 13.3 % (4.4-11.3); NEUTROPHILS # (AUTO) 4.9 (2.1-6.9); PLATELET COUNT 257 x10e3/uL (140-360); RED BLOOD COUNT 3.75 x10e6/uL (4.3-5.7); RED CELL DISTRIBUTION WIDTH 12.9 % (11.7-14.4)
[2018-12-08 04:35] LABS: ANION GAP 14.5 mmol/L (8-16); CALCIUM 8.7 mg/dL (8.4-10.2); CREATININE, SERUM 1.83 mg/dL (0.72-1.25); POTASSIUM 3.5 mmol/L (3.5-5.1)
[2018-12-08] MEDS: PIPERACILLIN/TAZO 4.5 GM 100 ML IV SCH ×3 (05:09→17:30)
[2018-12-08] MEDS: MORPHINE SULFATE 2 MG/ML SYR 1ML IV PRN ×3 (05:15→18:44)
--- NOTE | 2018-12-08 07:10 | NUR ---
pt asleep resp even and unlabored at this time no distress noted, pt easily aroused, and able to make needs known, call light in reach.
[2018-12-08] MEDS: INSULIN LISPRO 100 UNIT/1 ML 3ML VIAL SQ SCH ×5 (07:30→21:15)
[2018-12-08] MEDS: GLIMEPIRIDE 2 MG TAB PO SCH (08:58)
[2018-12-08] MEDS: ASPIRIN 81 MG CHEW TAB PO SCH (08:58)
[2018-12-08] MEDS: CLOPIDOGREL BISULFATE 75 MG TAB PO SCH (08:58)
[2018-12-08] MEDS: POTASSIUM CHLORIDE 20MEQ/100ML 100 ML IV SCH (08:59)
[2018-12-08] MEDS: PANTOPRAZOLE 40 MG 10ML VIAL IV SCH ×2 (08:59→20:56)
[2018-12-08] MEDS: AMLODIPINE BESYLATE 10 MG TAB PO SCH (09:01)
[2018-12-08] MEDS: CARVEDILOL 3.125 MG TAB PO SCH ×2 (09:01→21:02)
--- NOTE | 2018-12-08 19:23 | NUR ---
Bedside report given to oncoming nurse . pt stable at this time.
[2018-12-08] MEDS: ATORVASTATIN 20 MG TAB PO SCH (21:02)
--- NOTE | 2018-12-08 23:06 | NUR ---
PATIENT RECEIVED. PATIENT IS RESTING IN BE, AAOX3. RESP EVEN AND UNLABORED. NO ACUTE DISTRESS NOTED. NO NEED VOIDED AT THIS TIME. CALL LIGHT WITHIN REACH. INSTRUCT TO CALL FOR ASSISTANCE. BED LOW/LOCKED. CONTINUE TO MONITOR CLOSELY
[2018-12-09] MEDS: PIPERACILLIN/TAZO 4.5 GM 100 ML IV SCH ×3 (00:14→12:00)
[2018-12-09] MEDS: ACETAMINOPHEN/CODEINE 300MG - 30MG TAB PO PRN (00:18)
[2018-12-09] MEDS: MORPHINE SULFATE 2 MG/ML SYR 1ML IV PRN ×2 (02:32→08:30)
[2018-12-09 04:00] VITALS: BP 137/84
[2018-12-09 05:15] LABS: BASOPHILS # (AUTO) 0.1 (0.0-0.1); BASOPHILS % 0.9 % (0.0-1.0); EOSINOPHILS # (AUTO) 0.6 (0.0-0.4); EOSINOPHILS % 6.6 % (0.0-6.0); HEMATOCRIT 41.1 % (38.2-49.6); HEMOGLOBIN 14.1 g/dL (14.0-18.0); LYMPHOCYTES # (AUTO) 2.5 (1.0-3.2); LYMPHOCYTES % 27.1 % (18.0-39.1); MEAN CORPUSCULAR HEMOGLOBIN 35.3 pg (28-32); MEAN CORPUSCULAR HGB CONC 34.3 g/dL (31-35); MONOCYTES % 11.3 % (4.4-11.3); NEUTROPHILS # (AUTO) 4.9 (2.1-6.9); NEUTROPHILS % 53.8 % (38.7-80.0); PLATELET COUNT 358 x10e3/uL (140-360); RED BLOOD COUNT 3.99 x10e6/uL (4.3-5.7); RED CELL DISTRIBUTION WIDTH 12.7 % (11.7-14.4)
[2018-12-09 05:37] LABS: ANION GAP 12.7 mmol/L (8-16); CALCIUM 9.3 mg/dL (8.4-10.2); CREATININE, SERUM 1.64 mg/dL (0.72-1.25); MAGNESIUM 1.5 MG/DL (1.3-2.1); POTASSIUM 3.7 mmol/L (3.5-5.1)
--- NOTE | 2018-12-09 05:45 | NUR ---
COMPLETE PICC LINE DRESSING
[2018-12-09] MEDS ORDERED: ZOFRAN4 MG PO (06:37)
[2018-12-09] MEDS ORDERED: TYLENOL # 31 EA PO (06:37)
[2018-12-09] MEDS ORDERED: NORVASC10 MG PO (06:39)
--- NOTE | 2018-12-09 07:00 | NUR ---
RCD PT AT BED PT IS ALERT AND ORIENTED RESTING ON BED IV PATENT BY SALINE FLUSH BED LOW AND LOCKED CALL LIGHT IN REACH
[2018-12-09] MEDS: INSULIN LISPRO 100 UNIT/1 ML 3ML VIAL SQ SCH ×2 (07:30→11:30)
[2018-12-09 08:00] VITALS: BP 123/79
[2018-12-09] MEDS: GLIMEPIRIDE 2 MG TAB PO SCH (08:00)
[2018-12-09 08:46] VITALS: BP 123/79
[2018-12-09] MEDS: ASPIRIN 81 MG CHEW TAB PO SCH (09:00)
[2018-12-09] MEDS: PANTOPRAZOLE 40 MG 10ML VIAL IV SCH (09:00)
[2018-12-09] MEDS: POTASSIUM CHLORIDE 20MEQ/100ML 100 ML IV SCH (09:00)
[2018-12-09] MEDS: AMLODIPINE BESYLATE 10 MG TAB PO SCH (09:00)
[2018-12-09] MEDS: CARVEDILOL 3.125 MG TAB PO SCH (09:00)
[2018-12-09] MEDS: CLOPIDOGREL BISULFATE 75 MG TAB PO SCH (09:00)
[2018-12-09] MEDS: LACTATED RINGER'S 1,000 ML IV SCH (09:23)
[2018-12-09 10:50] LABS: CHOL/HDL RATIO 5.5 (3.9-4.7)
[2018-12-09 11:34] VITALS: BP 136/81
--- NOTE | 2018-12-09 12:08 | NUR ---
PT TOLERATED BREAK FAST AND LUNCH
--- NOTE | 2018-12-09 13:24 | NUR ---
DC PICC LINE BY ORDER NO SIGNS OF ANY BLEEDING PT RESTING ON BED
--- NOTE | 2018-12-10 04:28 | Discharge Summary ---
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 HISTORY: CAD with stents, CKD 3, type 2 diabetes, hyperlipidemia, kidney stones, chronic systolic CHF. SURGICAL HISTORY: Splenectomy, I and D of the right thigh, CABG, jaw surgery, bilateral ankle surgery, sinus surgery, right knee surgery, right arm surgery. FAMILY HISTORY: The patient's mother has diabetes. The patient's father and brother have cancer. The patient's father had a stroke. The patient's mother had a heart attack. SOCIAL HISTORY: Occasional alcohol use. HOSPITAL COURSE: A 63-year-old male with past medical history of PCI 2 weeks ago at [place], admits with complaints of epigastric pain, which is constant and sharp, that began 2 days ago. He has associated nausea and diarrhea, which resolved with loperamide. He came to the ER when he began having chest pain yesterday. The pain is a constant pressure and has associated dizziness and diaphoresis. Pain is worse with movement. He believes it all started when he ate some jalapenos. On admission, troponins were negative x3. His lipase was 309. Chest x-ray showed no acute abnormality. CT of the abdomen and pelvis showed findings compatible with pancreatitis, stable urinary bladder calculus, stable 3.3 cm infrarenal abdominal aortic aneurysm. Ultrasound of the abdomen showed fatty infiltration of the liver. No evidence of cholelithiasis or bladder stone. The patient was started on IV fluids and kept n.p.o. Cardiology was consulted due to the recent PCI. ACS was ruled out per Cardiology. The patient was started on aspirin and Plavix that he was taking at home. After few days, the patient continued to have abdominal pain despite IV fluids, so a KUB was done that showed nonobstructive bowel gas pattern, subcentimeter nonobstructive right renal calculus. CT of the abdomen was later done due to persistent elevated lipase and it showed improving pancreatitis around the pancreatic head, but interval development of inflammatory changes surrounding the distal body and tail. No pseudocyst, fluid collection, or pancreatic necrosis. The patient did not have a HIDA scan per Surgery recommendation and could not have an MRCP due to the recent PCI placement. Per GI, no ERCP was indicated. CA-19-9 was drawn per GI recommendation and it came back elevated. Once the pain began to subside, the patient was started on clear liquid diet and it was advanced as tolerated. The patient was advised to stop drinking and control his fatty diet. The patient understands discharge instructions and agrees to plan. At the time of discharge, abdominal pain is controlled and the patient is tolerating a regular diet. He will follow up with primary care in 1 to 2 weeks, Cardiology and GI in 1 to 2 weeks. Vital signs stable, the patient afebrile. Dictated by Danuta Montez NP MD SURESH Grubbs/COREY /[id number]
== END 2018-12-09 13:57 | disposition home or self-care (01) | DRG 871 ==
LOC: ER 15:49 → ERHOLD 18:52 → MED/SURG 21:47 → MED/SURG2 12-05 12:01
PROVIDERS: ADMIT Internal Medicine; ATTEND Internal Medicine
PROC: 02HV33Z Insertion of Infusion Device into Superior Vena Cava, Percutaneous Approach (ICD-10-PCS; principal; 2018-12-05)
DX: A41.9 Sepsis, unspecified organism (principal); K85.90 Acute pancreatitis without necrosis or infection, unspecified; J96.01 Acute respiratory failure with hypoxia; N17.9 Acute kidney failure, unspecified; I50.22 Chronic systolic (congestive) heart failure; I13.0 Hypertensive heart and chronic kidney disease with heart failure and stage 1 through stage 4 chronic kidney disease, or unspecified chronic kidney disease; K86.1 Other chronic pancreatitis; N18.3 Chronic kidney disease, stage 3 (moderate); E11.22 Type 2 diabetes mellitus with diabetic chronic kidney disease; I25.10 Atherosclerotic heart disease of native coronary artery without angina pectoris; K21.9 Gastro-esophageal reflux disease without esophagitis; I35.0 Nonrheumatic aortic (valve) stenosis; Z95.1 Presence of aortocoronary bypass graft; E78.5 Hyperlipidemia, unspecified; Z95.5 Presence of coronary angioplasty implant and graft; K76.0 Fatty (change of) liver, not elsewhere classified; I72.2 Aneurysm of renal artery; N21.0 Calculus in bladder; K37 Unspecified appendicitis; J32.9 Chronic sinusitis, unspecified; E87.6 Hypokalemia
CPT/HCPCS: 36415; 36569; 71045; 74018; 74150; 74176; 76700; 80048; 80053; 80061; 80076; 81001; 82150; 82550; 82553; 82948; 83036; 83690; 83735; 83880; 84100; 84443; 84478; 84484; 85025; 85610; 85730; 86301; 87040; 87086; 87493; 93005; 93306; 96365; 99284; J1170; J1940; J2270; J2405; J2543; J3480; J7030; J7050; J7121

== ENCOUNTER 2019-12-13 10:53 | Observation (INO) | payer MEDICARE, OTHER ==
[~2019-12-13] VITALS: Ht 190.5 cm; Wt 99.8 kg
[2019-12-13] MEDS: SODIUM CHLORIDE 0.9% 1000ML 1,000 ML IV SCH ×2 (01:02→16:04)
[~2019-12-13 10:53] MED LIST changes: +ASPIR 8181 MG; +ATORVASTATIN CA20 MG PO; +CARVEDILOL3.125 MG PO; +GLIMEPIRIDE2 MG PO; +NORVASC10 MG PO; +PLAVIX75 MG PO; +ZOFRAN4 MG PO
[2019-12-13] MEDS ORDERED: ONDANSETRON HCL INJ 2MG/ML 2ML 2 MG/ML VIAL IV STA (11:18)
[2019-12-13] MEDS ORDERED: MORPHINE SULFATE INJ 4 MG/ML INJ 1ML IV STA (11:18)
[2019-12-13 11:24] LABS: BASOPHILS # (AUTO) 0.1 (0.0-0.1); BASOPHILS % 1.8 % (0.0-1.0); EOSINOPHILS # (AUTO) 0.2 (0.0-0.4); EOSINOPHILS % 2.1 % (0.0-6.0); HEMATOCRIT 41.4 % (38.2-49.6); LYMPHOCYTES # (AUTO) 2.7 (1.0-3.2); LYMPHOCYTES % 35.8 % (18.0-39.1); MEAN CORPUSCULAR HEMOGLOBIN 36.7 pg (28-32); MEAN CORPUSCULAR HGB CONC 36.2 g/dL (31-35); MEAN CORPUSCULAR VOLUME 101.2 fL (81-99); MONOCYTES # (AUTO) 1.2 (0.2-0.8); MONOCYTES % 15.8 % (4.4-11.3); NEUTROPHILS # (AUTO) 3.4 (2.1-6.9); NEUTROPHILS % 44.2 % (38.7-80.0); PLATELET COUNT 196 x10e3/uL (140-360); RED BLOOD COUNT 4.09 x10e6/uL (4.3-5.7); RED CELL DISTRIBUTION WIDTH 13.2 % (11.7-14.4)
[2019-12-13] MEDS ORDERED: METOPROLOL TARTRATE 25 MG TAB PO ONE (11:30)
[2019-12-13] MEDS ORDERED: CLOPIDOGREL BISULFATE 75 MG TAB PO ONE (11:30)
--- NOTE | 2019-12-13 11:35 | Diagnostic Imaging Report ---
EXAMINATION: CHEST SINGLE (PORTABLE) INDICATION: Chest pain COMPARISON: Chest radiograph 02/23/2019 FINDINGS: LINES/TUBES:EKG leads overlie the chest. LUNGS:The lungs are well-inflated. No focal consolidation or pulmonary edema. PLEURA:No pleural effusion or pneumothorax. MEDIASTINUM:The cardiomediastinal silhouette appears normal in size and shape. Postoperative findings of prior CABG. BONES/SOFT TISSUES:No acute osseous injury. Sternotomy wires in place. ABDOMEN:No free air under the diaphragm. IMPRESSION: No focal pneumonia or pulmonary edema. Signed by: Tim Cabrera MD on 12/13/2019 11:32 AM
[2019-12-13 11:36] LABS: INR 1.04; PARTIAL THROMBOPLASTIN TIME 30.2 seconds (23.8-35.5); PROTHROMBIN TIME 14.1 seconds (11.9-14.5)
[2019-12-13 11:44] LABS: ALBUMIN 3.8 g/dL (3.5-5.0); ANION GAP 25.1 mmol/L (8-16); CREATININE, SERUM 1.65 mg/dL (0.72-1.25); POTASSIUM 4.1 mmol/L (3.5-5.1)
[2019-12-13 11:50] LABS: CREATINE KINASE MB 2.4 ng/mL (0-5.0)
[2019-12-13] MEDS ORDERED: MAGNESIUM SULFATE 2GM/50ML 50 ML IV ONE (12:00)
--- NOTE | 2019-12-13 12:05 | Emergency Department Note ---
History of Present Illnes History of Present Illness Chief Complaint: Chest Pain History of Present Illness This is a 64 year old male pt came in via [facility], pt c/o chest pain and shortness of breath, pt states that he has had 10-12 heart attacks and 4 stents, pt states that he stopped taking care of himself after his , pt states that the pressure-like pain started sometime last night but thought that he will be able to sleep through it, received 3 NTG Sprays and 324 mg of ASA by EMS PRESS OPERATOR HELPER, pt is AAOX4. Historian: Patient Arrival Mode: [facility] EMS Treatment PRESS OPERATOR HELPER: IV, O2, EKG, Aspirin, See EMS Report Line Installer Repairer Required: No Onset (how long ago): day(s) (YESTERDAY) Location: CHEST Quality: PRESSURE Radiation: Reports back, Reports extremity (BOTH SHOULDERS/ARMS) Severity: severe Onset quality: gradual Timing of current episode: intermittent Progression: waxing and waning Chronicity: recurrent Context: Denies recent illness Relieving factors: none Exacerbating factors: none Associated symptoms: Reports chest pain, Reports shortness of breath Past Medical/Family History Physician Review I have reviewed the patient's past medical and family history. Any updates have been documented here. Past Medical History Recent Fever: No Clinical Suspicion of Infectio: No New/Unexplained Change in Ment: No Past Medical History: None, Diabetes, CHF, LA, CAD, Kidney Stones, Hyperlipedemia Past Surgical History: CABG, PCI Other Surgery: splenectomy Social History Smoking Cessation: Unknown if ever smoked Counseling Performed: No Alcohol Use: None Any Illegal Drug Use: No TB Exposure/Symptoms: No Physically hurt or threatened: No Family History Family history of heart diseas: Yes Other Last Tetanus: UNK Any Pre-Existing Lines (PICC,: No Review of Systems Review of Systems Constitutional: Reports no symptoms EENTM: Reports no symptoms Cardiovascular: Reports as per HPI Respiratory: Reports no symptoms Gastrointestinal: Reports no symptoms Genitourinary: Reports no symptoms Musculoskeletal: Reports no symptoms Integumentary: Reports no symptoms Neurological: Reports no symptoms Psychological: Reports no symptoms Endocrine: Reports no symptoms Hematological/Lymphatic: Reports no symptoms Physical Exam Related Data Allergies: Coded Allergies: levofloxacin (Verified Allergy, Unknown, 08/08/18) Triage Vital Signs Vital Signs Date Time Temp Pulse Resp B/P (MAP) Pulse Ox O2 Delivery O2 Flow Rate FiO2 12/13/19 10:56 99.2 107 22 161/107 100 Nasal Cannula 2.0 Vital signs reviewed: Yes Physical Exam CONSTITUTIONAL Constitutional: Present well-developed, Present well-nourished HENT HENT: Present normocephalic, Present atraumatic, Present oropharynx clear/moist, Present nose normal HENT L/R: Present left ext ear normal, Present right ext ear normal EYES Eyes: Reports PERRL, Reports conjunctivae normal NECK Neck: Present ROM normal PULMONARY Pulmonary: Present effort normal, Present breath sounds normal CARDIOVASCULAR Cardiovascular: Present regular rhythm, Present heart sounds normal, Present capillary refill normal, Present normal rate GASTROINTESTINAL Abdominal: Present soft, Present nontender, Present bowel sounds normal GENITOURINARY Genitourinary: Present exam deferred SKIN Skin: Present warm, Present dry MUSCULOSKELETAL Musculoskeletal: Present ROM normal NEUROLOGICAL Neurological: Present alert, Present oriented x 3, Present no gross motor or sensory deficits PSYCHOLOGICAL Psychological: Present mood/affect normal, Present judgement normal Results Laboratory Result Diagram: 12/13/19 1110 12/13/19 1110 Laboratory Laboratory Tests Test 12/13/19 11:10 White Blood Count 7.58 x10e3/uL (4.8-10.8) Red Blood Count 4.09 x10e6/uL (4.3-5.7) Hemoglobin 15.0 g/dL (14.0-18.0) Hematocrit 41.4 % (38.2-49.6) Mean Corpuscular Volume 101.2 fL (81-99) Mean Corpuscular Hemoglobin 36.7 pg (28-32) Mean Corpuscular Hemoglobin Concent 36.2 g/dL (31-35) Red Cell Distribution Width 13.2 % (11.7-14.4) Platelet Count 196 x10e3/uL (140-360) Neutrophils (%) (Auto) 44.2 % (38.7-80.0) Lymphocytes (%) (Auto) 35.8 % (18.0-39.1) Monocytes (%) (Auto) 15.8 % (4.4-11.3) Eosinophils (%) (Auto) 2.1 % (0.0-6.0) Basophils (%) (Auto) 1.8 % (0.0-1.0) Neutrophils # (Auto) 3.4 (2.1-6.9) Lymphocytes # (Auto) 2.7 (1.0-3.2) Monocytes # (Auto) 1.2 (0.2-0.8) Eosinophils # (Auto) 0.2 (0.0-0.4) Basophils # (Auto) 0.1 (0.0-0.1) Absolute Immature Granulocyte (auto 0.02 x10e3/uL (0-0.1) Prothrombin Time 14.1 seconds (11.9-14.5) Prothromb Time International Ratio 1.04 Activated Partial Thromboplast Time 30.2 seconds (23.8-35.5) Sodium Level 136 mmol/L (136-145) Potassium Level 4.1 mmol/L (3.5-5.1) Chloride Level 98 mmol/L (98-107) Carbon Dioxide Level 17 mmol/L (22-29) Anion Gap 25.1 mmol/L (8-16) Blood Urea Nitrogen 15 mg/dL (7-26) Creatinine 1.65 mg/dL (0.72-1.25) Estimat Glomerular Filtration Rate 42 ML/MIN (60-) BUN/Creatinine Ratio 9 (6-25) Glucose Level 160 mg/dL (74-118) Calcium Level 10.0 mg/dL (8.4-10.2) Magnesium Level 1.0 MG/DL (1.3-2.1) Total Bilirubin 1.5 mg/dL (0.2-1.2) Aspartate Amino Transf (AST/SGOT) 104 IU/L (5-34) Alanine Aminotransferase (ALT/SGPT) 71 IU/L (0-55) Alkaline Phosphatase 57 IU/L (40-150) Creatine Kinase 122 IU/L (30-200) Creatine Kinase MB 2.40 ng/mL (0-5.0) Troponin I 0.027 ng/mL (0-0.300) B-Type Natriuretic Peptide 184.0 pg/mL (0-100) Total Protein 7.6 g/dL (6.5-8.1) Albumin 3.8 g/dL (3.5-5.0) Globulin 3.8 g/dL (2.3-3.5) Albumin/Globulin Ratio 1.0 (0.8-2.0) Lab results reviewed: Yes Imaging Imaging results reviewed: Yes Procedures 12 Lead ECG Interpretation ECG Interpretation : ECG: ECG 1 Line Installer Repairer: Interpreted by ED physician Date: Dec 13, 2019 Time: 11:00 Rhythm: sinus tachycardia Rate: tachycardia BPM: 110 Conduction: LAFB ST segments normal: Yes T waves normal: Yes Q waves: V1, V2, V3 Assessment & Plan Medical Decision Making [facility] H/O CAD - CBC, CHEM, ECG, CARDIACS, CXR - EVAL STEMI/NSTEMI, RENAL INSUFF, ELECTROLYTE ABNL Reassessment Reassessment ADMIT TO DR WINSTON, CONSULT DR PADILLA Assessment & Plan Final Impression: (1) Hypomagnesemia (2) Chest pain Depart Disposition: ADMITTED Last Vital Signs Date Time Temp Pulse Resp B/P (MAP) Pulse Ox O2 Delivery O2 Flow Rate FiO2 12/13/19 10:56 99.2 107 22 161/107 100 Nasal Cannula 2.0 Home Meds Reported Medications Glimepiride (GLIMEPIRIDE) 2 Mg Tablet, 2 MG PO, TAB 11/27/18 Atorvastatin Calcium (ATORVASTATIN CALCIUM) 20 Mg Tablet, 20 MG PO HS, #30 TAB 11/27/18 Clopidogrel Bisulfate* (PLAVIX) 75 Mg Tablet, 75 MG PO DAILY, #30 TAB 11/27/18 Aspirin (ASPIR 81) 81 Mg Tablet. 11/27/18 Carvedilol (CARVEDILOL) 3.125 Mg Tablet, 3.125 MG PO Q12H, #60 TAB 11/27/18 [biotin] No Conflict Check, 1 TAB PO DAILY 09/14/18 Multivitamin (MULTI-VITAMIN DAILY) 1 Each Tablet, 1 TAB PO DAILY 09/14/18 Medications in the ED Morphine Sulfate 4 mg NOW STAT IV ; Start 12/13/19 at 11:18; Stop 12/13/19 at 11:37; Status DC Ondansetron HCl 4 mg NOW STAT IV ; Start 12/13/19 at 11:18; Stop 12/13/19 at 11:37; Status DC Clopidogrel Bisulfate 75 mg ONCE ONCE PO ; Start 12/13/19 at 11:30; Stop 12/13/19 at 11:37; Status DC Metoprolol Tartrate 25 mg ONCE ONCE PO ; Start 12/13/19 at 11:30; Stop 12/13/19 at 11:37; Status DC Magnesium Sulfate 50 ml @ 25 mls/hr ONCE ONCE IV ; Start 12/13/19 at 12:00; Stop 12/13/19 at 13:59 THAO LY MD Dec 13, 2019 12:05
--- NOTE | 2019-12-13 12:37 | NUR ---
as per Dr. Payne, repeat cardiac enzymes at 1400, ct chest and abdomen with contrast to rule out pancreatitis, NS @100 cc/hr, entering orders at this time
[2019-12-13] MEDS ORDERED: SODIUM CHLORIDE 0.9% 1000ML 1,000 ML SCH (12:45)
[2019-12-13] MEDS ORDERED: SODIUM CHLORIDE 0.9% 50ML 50 ML ONE (13:03)
[2019-12-13] MEDS ORDERED: IOPAMIDOL 370 MG/ML 200 ML INFUS..BTL INJ ONE (13:03)
--- NOTE | 2019-12-13 13:36 | NUR ---
1st attempt to call report, as per MS-3, nurse not available and no other nurse available to take report
--- NOTE | 2019-12-13 13:51 | NUR ---
repeat Troponin drawn
--- NOTE | 2019-12-13 14:05 | NUR ---
pt is aaox4, no distress noted, pain has significantly improved, stable for transfer at this time, receiving nurse made aware that Dr. Payne needs to be called for repeat troponin le
--- NOTE | 2019-12-13 14:05 | Diagnostic Imaging Report ---
EXAM: CT Chest WITH contrast- Pulmonary Embolism Protocol INDICATION: Chest pain COMPARISON: Chest radiograph of earlier the same day TECHNIQUE: Chest was scanned utilizing a multidetector helical scanner from the lung apex through the level of the diaphragm after administration of IV contrast. Thin section reconstructions were obtained with special concentration on the pulmonary arteries. Coronal and sagittal reformations were obtained. Pulmonary embolism protocol was performed. IV CONTRAST: 100 cc of Isovue 370 RADIATION DOSE: Total DLP: 582 mGy*cm Dose modulation, iterative reconstruction, and/or weight based adjustment of the mA/kV was utilized to reduce the radiation dose to as low as reasonably achievable. COMPLICATIONS: None FINDINGS: LINES/ TUBES: None. PULMONARY ARTERIES: No filling defect is identified within the pulmonary arteries to the segmental level. The subsegmental pulmonary arteries are not well opacified. Main pulmonary artery measures 2.6 cm in diameter. No right heart strain. LUNGS AND AIRWAYS: The central airways are patent. No focal consolidation or pulmonary edema. Subcentimeter left lower lobe calcified granuloma. Minimal bibasilar dependent subsegmental atelectasis. PLEURA: The pleural spaces are clear. HEART AND MEDIASTINUM: The thyroid gland is normal. No mediastinal, hilar or axillary lymphadenopathy. The heart is normal in size.. There is no pericardial effusion. Scattered atherosclerotic calcifications involve the thoracic aorta and coronary arteries. UPPER ABDOMEN: Please see the separate dictation for the concurrently performed abdomen and pelvis CT for a detailed discussion of intra-abdominal findings. BONES: The visualized bony thorax is within normal limits. SOFT TISSUES: Unremarkable. IMPRESSION: No pulmonary embolism. No focal pneumonia or pulmonary edema. Signed by: Tim Cabrera MD on 12/13/2019 2:01 PM
--- NOTE | 2019-12-13 14:11 | Diagnostic Imaging Report ---
EXAM: CT Abdomen and Pelvis WITH intravenous contrast INDICATION: Abdominal pain COMPARISON: None. TECHNIQUE: Abdomen and pelvis were scanned utilizing a multidetector helical scanner from the lung base to the pubic symphysis after administration of IV contrast. Coronal and sagittal reformations were obtained. Routine protocol was performed. Scan was performed during portal venous phase. IV CONTRAST: 100mL of Isovue 370 ORAL CONTRAST: Water RADIATION DOSE: Total DLP: 847 mGy*cm Dose modulation, iterative reconstruction, and/or weight based adjustment of the mA/kV was utilized to reduce the radiation dose to as low as reasonably achievable. FINDINGS: LOWER THORAX: Please refer to report from concurrently performed chest CT for intrathoracic findings HEPATOBILIARY: Severe diffuse hepatic steatosis. No focal liver lesion. No biliary ductal dilation. Unremarkable gallbladder. SPLEEN: Absent spleen. 3.7 cm round mass adjacent to the lateral aspect of the upper pole of the left kidney most likely represents a splenule. Additional lateral left upper quadrant 2.1 cm splenule. PANCREAS: Mild fat stranding adjacent to the pancreatic body and tail. Calcifications at the pancreatic head. No associated focal fluid collection, hypoenhancement of pancreatic parenchyma, or vascular thrombosis. ADRENALS: No adrenal nodules. KIDNEYS/URETERS: No hydronephrosis. Nonobstructive 4 mm right lower pole renal calculus. PELVIC ORGANS/BLADDER: 1.8 cm irregular calculus in the dependent bladder adjacent to the right ureterovesical junction. PERITONEUM / RETROPERITONEUM: No free air or fluid. LYMPH NODES: No lymphadenopathy. VESSELS: Atherosclerotic arterial calcifications of the nonaneurysmal abdominal aorta and major branches. GI TRACT: No abnormal bowel thickening. No bowel obstruction. Normal appendix. BONES AND SOFT TISSUES: No acute osseous injury. No suspicious lytic or blastic lesions. IMPRESSION: Peripancreatic fat stranding adjacent to the pancreas body and tail consistent with mild acute pancreatitis. Calcifications of the pancreatic head may reflect a component of chronic pancreatitis. No associated abscess or pancreatic necrosis. Nonobstructive 4 mm right lower pole renal calculus. 1.8 cm irregular calculus at the dependent right bladder adjacent to the right ureterovesical junction. Severe diffuse hepatic steatosis. Signed by: Tim Cabrera MD on 12/13/2019 2:08 PM
[2019-12-13 14:20] VITALS: BP 123/77
[2019-12-13 14:23] LABS: CREATINE KINASE MB 1.8 ng/mL (0-5.0)
[2019-12-13 15:47] VITALS: BP 123/77
[2019-12-13] MEDS: FAMOTIDINE 20 MG/2 ML VIAL IV SCH (16:03)
[2019-12-13] MEDS: MORPHINE SULFATE 2 MG/ML SYR 1ML IV PRN ×2 (16:04→22:17)
[2019-12-13] MEDS: PANTOPRAZOLE SOD 40 MG TABEC PO SCH (18:26)
[2019-12-13] MEDS: ONDANSETRON HCL INJ 2MG/ML 2ML 2 MG/ML VIAL IV PRN ×2 (18:30→22:17)
[2019-12-13 19:00] VITALS: BP 161/72
--- NOTE | 2019-12-13 19:25 | NUR ---
patient received awake, alert, lying quietly in bed. no c/o pain/nausea at this time. ivf continue to infuse without difficulty. pm assessment complete. call bolivar placed within reach. patient instructed to call for assistance when needed.
--- NOTE | 2019-12-13 22:19 | Consultation ---
DATE OF CONSULTATION: Cardiac Consultation REASON FOR CONSULTATION: Chest pain. HISTORY OF PRESENT ILLNESS: A 64-year-old gentleman, who is known with coronary artery bypass surgery in 2018. He is known to have hyperlipidemia and hypertension. He had also history of infection and seroma of the right leg. The patient is known to have chronic renal insufficiency. Furthermore, he takes few drinks of alcohol a day. He does have aortic stenosis and moderate aortic regurgitation. In November 2018, he had a cardiac catheterization, which showed occlusion of all grafts except MITTAL to LAD. The patient had successful PCI and stenting of the proximal RCA using Mannford 3.5 x 26 stent. Cardiac cath at that time showed totally occluded PLV of right RCA. There is mid RCA stent with moderate disease. His circumflex system totally occluded and he does have quite a lot of ischemia in that territory, which need to be treated medically. The patient came to this institution complaining of chest pain. His chest pain going on for couple of days. For the last month or so, he is having some stomach problems. He does have quite a lot of heartburn and indigestion, but definitely also he does have angina. He is taking his medications as described. REVIEW OF SYSTEMS: GENERAL: No fever. No chills. HEENT: No hearing problem. No vision problem. ENDOCRINE: No polyuria. No polydipsia. PULMONARY: As per acute illness. CARDIAC: As per acute illness. GI: As per acute illness. No hematemesis. No melena. HEMATOLOGY: Easy bruising. No bleeding. : Increased frequency of urination. MUSCULOSKELETAL: Low back pain, peripheral vascular, claudication. SKIN: No rashes. NEUROLOGICAL: No seizure activity. PAST MEDICAL HISTORY: 1. Three-vessel coronary artery disease with coronary artery bypass surgery in 2018 with only patency of MITTAL to LAD, documented by cardiac cath. 2. Severe RCA disease with totally occluded PLV and successfully PCI and stenting in November 2018, using 3.5 x 26 Mannford stent. 3. Past history of myocardial infarction. 4. Hyperlipidemia. 5. Diabetes mellitus. 6. Alcohol use. 7. Right harvest site seroma in September 2018. SOCIAL HISTORY: He is nonsmoker. Unfortunately, he drinks few drinks a day. HOME MEDICATIONS: Aspirin 81 mg, Plavix 75 mg, Lipitor 20 mg, Coreg 3.125 mg twice a day, and glimepiride 2 mg daily. ALLERGIES: LEVAQUIN. FAMILY HISTORY: Father had stroke and dementia in his 90s. Mother at age 75. She had open-heart surgery and she was diabetic. He lost one brother to an accident at age 18 and he lost his second brother at age 62 of lung cancer. He does have one healthy sister. PHYSICAL EXAMINATION: VITAL SIGNS: Height of 6 feet 5 inches, weight of 220 pounds. Blood pressure 130/80, heart rate of 90, and respiratory rate of 18. HEENT: Pupils are reactive. NECK: No elevation of jugular venous pulsation. CHEST: Sternotomy noted in place. Clear to auscultation and percussion. HEART: PMI 5th left intercostal space. Normal first and second heart sounds. ABDOMEN: Soft. EXTREMITIES: No edema. Decreased peripheral pulses. NEUROLOGIC: Awake, alert, and oriented. LABORATORY DATA: Hemoglobin of 15, hematocrit 41%, platelet 196, MCV is elevated. White blood cell count of 7.6, BNP of 184, BUN of 15, creatinine of 1.65, and glucose of 160. ALT and AST are elevated at 71 and 104. BNP of 184. Chest x-ray showed no major changes. EKG, no acute changes. IMPRESSION AND PLAN: 1. Coronary artery disease with angina. 2. Bypass surgery in 2018. 3. PCI and stenting of proximal RCA and old stent in the past with totally occluded PLV and occluded circumflex and obtuse marginal, very large territory of ischemia. 4. Left ventricular dysfunction. 5. Aortic stenosis with aortic regurgitation. 6. Hypercholesterolemia. 7. Hypertension. 8. Chronic renal insufficiency. 9. Peripheral arterial vascular disease. Cardiac castle, recommendation will be for serial cardiac enzymes. IV hydration. We will check lipase. We will check CT chest and abdomen because of the abdominal pain to rule out possibility of chronic pancreatitis. Definitely, the patient besides his angina, he is having quite a lot of GI symptoms. Treatment will be medical because of the complex nature of his coronary artery disease and inability to further revascularize. We will follow the patient's progression with you and would like to thank you for your kind referral. MD GILMAR Dailey/COREY /[id number]
[2019-12-13 22:47] VITALS: BP 161/72
[2019-12-13 23:05] LABS: CREATINE KINASE MB 2.8 ng/mL (0-5.0)
[2019-12-14] MEDS: FAMOTIDINE 20 MG/2 ML VIAL IV SCH (00:03)
[2019-12-14 01:13] VITALS: BP 150/52
[2019-12-14] MEDS: ONDANSETRON HCL INJ 2MG/ML 2ML 2 MG/ML VIAL IV PRN ×3 (02:32→11:17)
[2019-12-14] MEDS: MORPHINE SULFATE 2 MG/ML SYR 1ML IV PRN ×2 (02:32→06:38)
[2019-12-14 05:19] LABS: BASOPHILS # (AUTO) 0.1 (0.0-0.1); BASOPHILS % 1.7 % (0.0-1.0); EOSINOPHILS # (AUTO) 0.4 (0.0-0.4); EOSINOPHILS % 6.2 % (0.0-6.0); HEMATOCRIT 36.8 % (38.2-49.6); HEMOGLOBIN 12.6 g/dL (14.0-18.0); LYMPHOCYTES # (AUTO) 2.1 (1.0-3.2); LYMPHOCYTES % 36.7 % (18.0-39.1); MEAN CORPUSCULAR HEMOGLOBIN 36.3 pg (28-32); MEAN CORPUSCULAR HGB CONC 34.2 g/dL (31-35); MEAN CORPUSCULAR VOLUME 106.1 fL (81-99); MONOCYTES % 16.4 % (4.4-11.3); NEUTROPHILS # (AUTO) 2.3 (2.1-6.9); NEUTROPHILS % 38.8 % (38.7-80.0); PLATELET COUNT 153 x10e3/uL (140-360); RED BLOOD COUNT 3.47 x10e6/uL (4.3-5.7); RED CELL DISTRIBUTION WIDTH 13.5 % (11.7-14.4)
[2019-12-14 05:40] LABS: ALBUMIN 3.1 g/dL (3.5-5.0); ANION GAP 14.8 mmol/L (8-16); CALCIUM 8.5 mg/dL (8.4-10.2); CHOL/HDL RATIO 3.5 (3.9-4.7); CREATININE, SERUM 1.61 mg/dL (0.72-1.25); POTASSIUM 4.8 mmol/L (3.5-5.1)
[2019-12-14 06:05] LABS: CREATINE KINASE MB 2.8 ng/mL (0-5.0)
[2019-12-14 06:45] LABS: THYROID STIMULATING HORMONE 1.967 uIU/mL (0.350-4.940)
[2019-12-14 07:51] LABS: PLATELET ESTIMATE ADEQUATE; PLATELET MORPHOLOGY COMMENT NORMAL; RBC MORPHOLOGY COMMENT NORMAL
[2019-12-14 08:16] VITALS: BP 155/73
[2019-12-14 08:25] VITALS: BP 155/73
[2019-12-14] MEDS: PANTOPRAZOLE SOD 40 MG TABEC PO SCH (08:28)
[2019-12-14] MEDS ORDERED: CLOPIDOGREL BISULFATE 75 MG TAB PO SCH (09:00)
[2019-12-14] MEDS ORDERED: ASPIRIN 81 MG ENTERIC COATED PO SCH (09:00)
--- NOTE | 2019-12-14 09:16 | NUR ---
DAY 1 OBS DX: CP, LOW MAGNESIUM SENT TO R1 FOR LOC DETERMINATION
[2019-12-14] MEDS ORDERED: PANTOPRAZOLE SO40 MG PO (10:48)
[2019-12-14] MEDS ORDERED: DICYCLOMINE HCL10 MG PO (11:03)
[2019-12-14] MEDS ORDERED: ONDANSETRON ODT8 MG PO (11:08)
[2019-12-14 11:40] VITALS: BP 144/84
--- NOTE | 2019-12-14 12:01 | NUR ---
Patient is transported for radiology at this time.
[2019-12-14] MEDS ORDERED: MORPHINE SULFATE 2 MG/ML SYR 1ML IV PRN (12:15)
--- NOTE | 2019-12-14 12:44 | NUR ---
Patient is back to room from radiology.
--- NOTE | 2019-12-14 13:12 | Diagnostic Imaging Report ---
EXAM: US ABDOMEN LIMITED DATE: 12/14/2019 12:11 PM INDICATION: ^ABD PAIN ^[id number] ^[id number] COMPARISON: CT scan dated 12/13/2019 TECHNIQUE: Transverse and longitudinal scale and color doppler sonographic images of the right upper quadrant were obtained. FINDINGS: Evaluation is significantly limited due to overlying bowel gas and patient body habitus. LIVER 15.4 cm in the right midclavicular line. Liver is diffusely echogenic with normal contour, no masses. GALLBLADDER No gallbladder wall thickening, distension, stone, or pericholecystic fluid. Negative reported sonographic Guerrero's sign. BILE DUCTS No intra nor extra-hepatic biliary dilation. Common bile duct measures 0.3cm PANCREAS: Not well visualized RIGHT KIDNEY: 11.5 cm Echogenicity: Normal Collecting System: No hydronephrosis Stones: None Cyst/Mass: None VESSELS: Aorta: Not well visualized Inferior Vena Cava: Not well visualized Main Portal Vein: 1.2 cm, normal size with hepatopetal flow. FREE FLUID: None IMPRESSION: Extremely limited evaluation due to patient body habitus and overlying bowel gas. Hepatic steatosis. Negative for biliary dilatation. Signed by: Joel Sanders MD on 12/14/2019 1:08 PM
--- NOTE | 2019-12-14 13:44 | NUR ---
Discharge education provided. Prescription given. Verbalized understanding regarding follow-up appointment with PCP and Dr. Payne. PIV to right AC removed, catheter tip intact, no bleeding noted. Transported patient to private vehicle with all personal belongings taken.
[2019-12-14] MEDS ORDERED: CARVEDILOL 3.125 MG TAB PO SCH (17:00)
[2019-12-14] MEDS ORDERED: PANTOPRAZOLE 40 MG 10ML VIAL IV SCH (17:00)
--- OUTSIDE RECORDS SUMMARY | 2019-12-14 19:32 | XMS REPORT | Clinical Summary ---
Author Author [facility] Address Unknown Phone Unavailable Care Team Providers Care Orthopedically Impaired Teacher Name Role Phone Mino Wyatt MD PCP [phone] Allergies Comments Active Allergy Reactions Severity Noted Date Muscle contraction, could not walk Levofloxacin Other (See High 02/13/2009 Comments) Medications End Date Status Medication Sig Dispensed Refills Start Date Active omega 4-ujp-crt-fish oil Take 1 0 (FISH OIL) 100-160-1,000 capsule by mg capsule mouth daily. Active Problems Problem Noted Date NSTEMI (non-ST elevated myocardial infarction) 04/20 Head trauma 04/06/2018 Immunizations Name Administration Dates Next Due FLUCELVAX QUAD PF 04/10/2018 () Pneumococcal 04/07/2018 Polysaccharide Surgical History Surgery Date Site/Laterality Comments SPLENECTOMY CARDIAC SURGERY ABDOMINAL SURGERY KIDNEY STONE SURGERY 02/08/1999 - 02/08/2000 JOINT REPLACEMENT RT knee CORONARY ARTERY BYPASS GRAFT STENT heart CARDIAC CATHETERIZATION 04/21/2018 N/A Proced ure: Left heart cath w lv gram cors; Surgeon: Elio Salcedo MD; Location: [facility]; Servi ce: Cardiology; Laterality: N/A; Medical devices from this surgery are i n the Implants section. Medical History Medical History Date Comments Coronary artery disease Type 2 diabetes mellitus (HCC) Chronic kidney disease stone Stroke (HCC) 2018 Family History Medical History Relation Name Comments Cancer Brother Stroke Father Diabetes Mother Relation Name Status Comments Brother Father Alive Mother Social History Date Tobacco Use Types Packs/Day Years Used Never Smoker Smokeless Tobacco: Never Used Drinks/Week oz/Week Comments Alcohol Use 1 bottle of rum per week Yes Sex Assigned at Date Recorded Not on file Last Filed Vital Signs Not on file Plan of Treatment Health Maintenance Due Date Last Done Comments COLONOSCOPY SCREENING 08/07/2003 SHINGLES VACCINES (#1) 08/07/2003 INFLUENZA VACCINE 09/09/2019 65+ PNEUMOCOCCAL VACCINE 04/07/2023 04/07/2018 (1 of 1 - PPSV23) Implants Device Identifier Shelf Expiration Date Model / Serial / L ot Implanted Type Area Manufactur er 03/10/2020 [id number] / / [id number] Device Vasclr Clsr Baln Cath 10ml Cardiovasc N/A: N/A ACCESS Lkng Syr 5fr Rock Mynxgrip - ular CLOSURE [id number] [employer] Implanted: 04/21/2018 at [facility] (Quantity not on file) Results Not on fileafter 12/12/2018 Insurance Type Payer Benefit Subscriber ID Effective Phone Address Plan / Dates Group [facility] MEDICARE AARP [id number] 2018-P MEDICARE resent COMPLETE [facility] Advance Directives For more information, please contact: [phone] 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
--- OUTSIDE RECORDS SUMMARY | 2019-12-14 19:33 | XMS REPORT | Clinical Summary ---
Author Author [facility] Address Unknown Phone Unavailable Care Team Providers Care Customer Experience Strategist Name Role Phone PCP Unavailable Allergies Not on File Medications Not on file Active Problems Not on file Social History Date Tobacco Use Types Packs/Day Years Used Never Assessed Sex Assigned at Date Recorded Not on file Last Filed Vital Signs Not on file Plan of Treatment Not on file Results Not on fileafter 12/12/2018 Insurance Type Payer Benefit Subscriber ID Effective Phone Address Plan / Dates Group HMO/POS CIG[employer] - [employer] CARE CIGNA [id number] 2017-P HMO/POS/OP resent EN ACCESS
--- OUTSIDE RECORDS SUMMARY | 2019-12-14 19:33 | XMS REPORT | Continuity of Care Document ---
Author Author Kirstie Valero Information ANKUR Almeida Organization [facility] [employer] Address Unknown Phone Unavailable Care Team Providers Care Bundle Tier Name Role Phone [facility] [employer] Information Exchange Unavailable Un available Problems Problem Status Onset Date Classification Date Reported Comments Source CELLULITIS Active 11/08/2018 [place] Weakness 05/06/2018 [facility] Encounter for other administrative examinations 10/19/2017 03/20/2018 [facility] HOSPITAL FOLLOW UP WITH MONITOR 2 WKS Active 10/18/2017 [facility] CODE STROKE POSS Active 10/16/2017 [facility] ATAXIA, RIGHT SIDED WEAKNESS A ctive 10/16/2017 [facility] 2 WKS FOLLOW UP Active 08/19/2017 [facility] I50.9, I10 Active 06/03/2017 [facility] Hypertensive heart disease with heart failure 05/28/2017 08/26/2017 [facility] I50.9 Active 05/20/2017 [facility] Atherosclerosis of [place] arteries of ex tremities with intermittent claudication, bilateral legs 04/30/2017 07/31/2017 [facility] Other complications of procedures, not e lsewhere classified, initial encounter 04/20/2017 07/21/2017 [facility] I70.213 - ATHSCL HOONAH ARTERIES OF EXTR Active 04/13/2017 [facility] 6 MONTHS FOLLOW UP Active 04/13/2017 [facility] R42 R06.02 I10 R60.9 Active 04/05/2017 [facility] FOLLOW UP 2 WKS Active 04/05/2017 [facility] HOSPITAL FOLLOW UP Active 04/02/2017 [facility] FOLLOW UP Active 04/01/2017 [facility] Non-ST elevation (NSTEMI) myocardial infarction 03/23/2017 06/13/2017 [facility] 1 WK F/U Active 03/18/2017 [facility] HOSPITAL F/U Active 03/09/2017 [facility] Atherosclerotic heart disease of [place] coronary artery with unspecified angina pectoris 02/26/2017 05/28/2017 [facility] CORONARY ARTERY DISEASE Active 02/19/2017 [facility] CP Active [facility] PNEUMONIA, CHEST PAIN Active 02/15/2017 [facility] Type 2 diabetes mellitus without complications 05/06/2018 [facility] [place] Atherosclerotic heart disease of [place] coronary artery without angina pectoris 05/06/2018 [facility], [facility] [place],[facility] Hypertensive heart and chronic kidney di sease with heart failure and stage 1 through stage 4 chronic kidney disease, or unspecified chronic kidney disease 05/06/2018 [facility] Personal history of transient ischemic a ttack (TIA), and cerebral infarction without residual deficits 05/06/2018 [facility] Chronic systolic (congestive) heart failure 05/06/2018 [facility] Hyperlipidemia, unspecified 05/06/2018 [facility] [place] Chronic kidney disease, stage 3 (moderate) 05/06/2018 [facility] Type 2 diabetes mellitus with diabetic c hronic kidney disease 05/06/2018 [facility] Obesity, unspecified 05/06/2018 [facility] Ataxia, unspecified 05/06/2018 [facility] Atherosclerosis of aorta 05/06/2018 [facility] Degenerative disease of nervous system, unspecified 05/06/2018 [facility] Cerebral cysts 05/06/2018 [facility] detention (current) use of antithromboti cs/antiplatelets 05/06/2018 [facility] detention (current) use of insulin 05/06/2018 [facility] detention (current) use of aspirin 05/06/2018 [facility] [place] Pneumonia, unspecified organism 05/28/2017 [facility] Acute on chronic diastolic (congestive) heart failure 05/28/2017 [facility] Morbid (severe) obesity due to excess calories 05/28/2017 [facility] Hypomagnesemia 05/28/2017 [facility] Body mass index (BMI) 29.0-29.9, adult 05/28/2017 [facility] Acute systolic (congestive) heart failure 06/13/2017 [facility] Cardiogenic shock 06/13/2017 [facility] Respiratory failure, unspecified with hypercapnia 06/13/2017 [facility] Encephalopathy, unspecified 06/13/2017 [facility] Ventricular fibrillation 06/13/2017 [facility] Ventricular tachycardia 06/13/2017 [facility] Acute posthemorrhagic anemia 06/13/2017 [facility] Acidosis 06/13/2017 [facility] Other specified coagulation defects 06/13/2017 [facility] Stenosis of vascular prosthetic devices, implants and grafts, initial encounter 06/13/2017 [facility] Intraoperative hemorrhage and hematoma o f a circulatory system organ or structure complicating a cardiac bypass 06/13/2017 [facility] Thrombocytopenia, unspecified 06/13/2017 [facility] Ischemic cardiomyopathy 06/13/2017 [facility] [place] Presence of coronary angioplasty implant and graft 06/13/2017 [facility] [place] detention (current) use of oral hypoglycemic drugs 06/13/2017 [facility] Allergy status to other antibiotic agents status 06/13/2017 [facility] Surgical operation with implant of artif icial internal device as the cause of abnormal reaction of the patient, or of later complication, without mention of misadventure at the time of the procedure 06/13/2017 [facility] Nonrheumatic aortic (valve) stenosis 06/13/2017 [facility] Postprocedural hypotension 06/13/2017 [facility] Physical restraint status 06/13/2017 [facility] Other specified peripheral vascular diseases 06/13/2017 [facility] Restlessness and agitation 06/13/2017 [facility] Surgical operation with anastomosis, byp ass or graft as the cause of abnormal reaction of the patient, or of later complication, without mention of misadventure at the time of the procedure 06/13/2017 [facility] Personal history of urinary calculi 06/13/2017 [facility] Encounter for immunization 06/13/2017 [facility] Cellulitis, unspecified 07/21/2017 [place] Cutaneous abscess of left lower limb 07/21/2017 [facility] Pain in left leg 07/21/2017 [facility] [place] [facility] hypercholesterolemia, unspecified 06/23/2017 [facility] Essential (primary) hypertension 07/21/2017 [facility] [place] Body mass index (BMI) 25.0-25.9, adult 06/23/2017 [facility] Presence of aortocoronary bypass graft 06/23/2017 [facility] Localized edema 07/21/2017 [facility] Dizziness and giddiness 07/12/2017 [facility] Shortness of breath 07/12/2017 [facility] Edema, unspecified 07/12/2017 [facility] Other specified postprocedural states 07/31/2017 [facility] Diabetes mellitus (disorder) R esolved Problem 04/2018 [facility] [place] Hypercholesterolemia (disorder) Resolved Problem 04/2018 [facility] [place] Hypertensive disorder, systemic arterial (disorder) Resolved Problem 11/10/2018 [facility] [place] Left anterior fascicular block 08/26/2017 [facility] Abnormal electrocardiogram [ECG] [EKG] 08/26/2017 [facility] Presence of cardiac pacemaker 08/26/2017 [facility] PNEUMONIA, UNSPECIFIED ORGANISM Active [facility] ATAXIA, UNSPECIFIED Active [facility] WEAKNESS Active [facility] Medications Medication Details Route Status Patient Instructions Ordering Provider Order Date Source Insulin Lispro Notes: (Same as : Humalog ) Roll in palms of hands gently; Do not shake `vigorously. "Single Patient Use Only " WASTE: F/P - Black; E - Municipal Trash Bin Stable for 28 days at room temp erature. Expires in days from Date Inactive 10/17/2017 [facility] Dextrose 50% Syringe 12.5 gm, 25 mL, Route: IVP, Drug Form: INJ, Dosing Weight 100.909, kg, PRN, PRN Blood Glucose Results, Start date: 10/17/17 10:45:00 CDT, Duration: 30 day, Stop date: 11/16/17 10:44:00 CDT Inactive 10/17/2017 [facility] Glucagon 1 mg, Route: IM, Drug form: PDR/INJ, PRN, Dosing Weight 100.909, kg, PRN Blood Glucose Results, Start date: 10/17/17 10:45:00 CDT, Duration: 30 day, Stop date: 11/16/17 10:44:00 CDT Inactive 10/17/2017 [facility] potassium phosphate-sodium phosphate 250 mg-45 mg-298 mg oral tablet Notes: (Same as: K-Phos Neutral, Phospha 250 Neutral) Inactive 10/17/2017 [facility] K-Phos Original 250 mg, Route: PO, Drug form: TAB, ONCE, Dosing Weight 100.909, kg, Start date: 10/17/17 10:25:00 CDT, Stop date: 10/17/17 10:25:00 CDT Inactive 10/17/2017 [facility] MAGNESIUM GLUCONATE Notes: (Sa me as: [place]) Magnesium gluconate 500mg=27mg elemental magnesium Dose= mg magnesium gluconate(___mg elemental magnesium) Inactive 10/17/2017 [facility] Aspirin 81 MG Enteric Coated Tablet Notes: Do not crush or chew. (Same As: Ecotrin) Inactive 10/17/2017 [facility] Plavix Notes: (Same As: Plavix) No Longer Active 10/17/2017 [facility] clopidogrel Notes: (Same As: P lavix) Inactive 10/17/2017 [facility] Vitamin B12 Notes: (Same As: V itamin B12) Inactive 10/17/2017 [facility] pantoprazole Notes: Tablet aidan uld not be chewed or crushed. (Same as: Protonix) Inactive 10/17/2017 [facility] atorvastatin Notes: (Same as: Lipitor) No Longer Active 10/17/2017 [facility] 24 HR Metoprolol Tartrate 25 MG Extended Release Tablet [Toprol] Notes: (Same as: Toprol XL) Do Not Crush Inactive 10/16/2017 [facility] Corlanor Notes: Hold and conta ct prescriber if HR <50 bpm. (Same as: Corlanor) Inactive 10/16/2017 [facility] Finasteride Notes: (Same as: P roscar) "Do Not Crush" Women of childbearing age should not touch or handle broken tablets No Longer Active 10/16/2017 [facility] Acetaminophen 325 MG / Hydrocodone Juan trate 5 MG Oral Tablet [[place] 5/325] Notes: (Same as: [place] 325/5) Do not ex ceed 4gm/day of acetaminophen. No Longer Activ e 10/16/2017 [facility] pantoprazole 40 mg, PO, Daily, # 30 tab, 0 Refill(s) Active 10/16/2017 [facility] Metformin hydrochloride 500 MG Oral Tablet 500 mg = 1 tab, PO, BID, 0 Refill(s) Active 10/16/2017 [facility] atorvastatin 40 mg oral tablet 40 mg = 1 tab, PO, Bedtime, # 30 tab, 0 Refill(s) Active 10/16/2017 [facility] Furosemide 20 mg, PO, Q12H, 0 Refill(s) No Longer Active 10/16/2017 [facility] clopidogrel 75 mg, PO, Daily, 0 Refill(s) Active 10/16/2017 [facility] Finasteride 5 mg = 1 tab, PO, Daily, # 30 tab, 0 Refill(s) Active 10/16/2017 [facility] NS 500 mL 500 mL, Rate: 75 ml/ hr, Infuse over: 6.7 hr, Route: IV, Dosing Weight 100.909 kg, Total Volume: 500, Start date: 10/16/17 5:05:00 CDT, Duration: 1 doses or times, Stop date: 10/16/17 11:46:00 CDT, 2.33, m2 Inactive 10/16/2017 [facility] NS 1,000 mL 1,000 mL, Rate: 15 0 ml/hr, Infuse over: 6.7 hr, Route: IV, Dosing Weight 100.909 kg, Total Volume: 1,000, Start date: 10/16/17 4:56:00 CDT, Duration: 1 doses or times, Stop date: 10/16/17 11:37:00 CDT, 2.33, m2 Inactive 10/16/2017 [facility] Acetaminophen 300 MG / Codeine Phosphate 60 MG Oral Tablet [Tylenol with Codeine #4] 1 tab, PO, BID, PRN Pain, # 32 tab, 0 Re fill(s) Active 10/16/2017 [facility] Magnesium Oxide 400 mg, PO, Da verónica, 0 Refill(s) No Longer Active 10/16/2017 [facility] Aspirin Notes: Take with food. Inactive 10/16/2017 [facility] Plavix Notes: (Same As: Plavix) Inactive 10/16/2017 [facility] Saline Flush 0.9% Notes: Same as: BD Posiflush Sterile No Longer Active 10/16/2017 [facility] multivitamin Daily Active 08/31/2017 [facility] Glucosamine Chondroitin PO, Da verónica Active 08/31/2017 [facility] ivabradine 5 MG Oral Tablet [[place]] 2.5 mg = 0.5 tab, PO, BID No Longer Active 08/31/2017 [facility] 24 HR Metoprolol Tartrate 50 MG Extended Release Tablet [Toprol] 50 mg = 1 tab, PO, Daily, # 30 tab Active 06/03/2017 [facility] sacubitril 49 MG / valsartan 51 MG Oral Tablet [Entresto] 1 tab, PO, BID, # 56 tab Active 06/03/2017 [facility] atorvastatin 40 MG Oral Tablet [Lipitor] 40 mg = 1 tab, PO, Bedtime, # 30 tab, 3 Refill(s), Pharmacy: [facility] [id number] Active 05/20/2017 [facility] Metformin hydrochloride 500 MG Oral Tablet 500 mg = 1 tab, PO, BID-Meals, # 60 tab, 1 Refill(s), Pharmacy: [facility] [id number] Active 05/20/2017 [facility] 24 HR Metoprolol Tartrate 25 MG Extended Release Tablet [Toprol] 25 mg = 1 tab, PO, Daily, # 30 tab, 3 Re fill(s), Pharmacy: [facility] [id number] No Longer Active 05/20/2017 [facility] sacubitril 24 MG / valsartan 26 MG Oral Tablet [Entresto] 1 tab, PO, BID, # 60 tab, 3 Refill(s), P harmacy: [facility] [id number] No Longer Active 05/20/2017 [facility] Furosemide 20 MG Oral Tablet [Lasix] 20 mg = 1 tab, PO, Q12H, # 30 tab, 1 Refill(s), Pharmacy: [facility] [id number] Active 04/05/2017 [facility] finasteride 5 mg oral tablet 5 mg = 1 tab, PO, Daily, # 30 tab, 1 Refill(s), Pharmacy: [facility] [id number] Active 04/05/2017 [facility] tramadol hydrochloride 50 MG Oral Tablet 50 mg = 1 tab, PO, Q6H, PRN Pain, X 30 day, # 60 tab, 1 Refill(s), other No Longer Active 04/05/2017 [facility] Acetaminophen 300 MG / Codeine Phosphate 30 MG Oral Tablet [Tylenol with Codeine #3] 1 - 2 tab, PO, Q6H, PRN Pain, X 14 day, # 30 tab, 0 Refill(s), other No Longer Active 04/05/2017 [facility] Amoxicillin 875 MG / Clavulanate 125 MG Oral Tablet [Augmentin 875-mg] 875 mg = 1 tab, PO, BID, X 7 day, # 14 t ab, 0 Refill(s), Pharmacy: [facility] [id number] No Longer Active 04/05/2017 [facility] Metformin hydrochloride 500 MG Oral Tablet 500 mg = 1 tab, PO, BID-Before Meals, # 30 tab, 1 Refill(s) Active 03/07/2017 [facility] Acetaminophen 300 MG / Codeine Phosphate 30 MG Oral Tablet [Tylenol with Codeine #3] See Instructions, 1-2 tab PO Q12hrs for pain, # 30 tab, 0 Refill(s) No Longer Active 03/07/2017 [facility] pantoprazole 40 mg oral enteric coated tablet 40 mg = 1 tab, PO, Before Breakfast, # 30 tab, 2 Refill(s) Active 03/07/2017 [facility] clopidogrel 75 mg oral tablet 75 mg = 1 tab, PO, Daily, # 30 tab, 2 Refill(s) Active 03/07/2017 [facility] metoprolol tartrate 25 mg oral tablet 12.5 mg = 0.5 tab, PO, Q12H, # 30 tab, 2 Refill(s) No Longer Active 03/07/2017 [facility] Insulin Glargine 100 UNT/ML Injectable Solution 20 unit, SUB-Q, Before Dinner, # 10 mL, 2 Refill(s) Inactive 03/07/2017 [facility] Furosemide 20 MG Oral Tablet 2 0 mg = 1 tab, PO, Daily, # 30 tab, 2 Refill(s) No Longer Active 03/07/2017 [facility] Morphine Notes: (Same as:MORPh ine Sulfate) Inactive 03/07/2017 [facility] Tramadol Notes: Not to exceed 400mg/day. (Same As: Ultram) Inactive 03/06/2017 [facility] Insulin Glargine Notes: (Same as: Lantus) Do not hold insulin without contacting prescriber WASTE: F/P - Black; E - Municipal Trash Bin "single patient use only" No Longer Active 03/05/2017 [facility] Insulin Lispro Notes: (Same as : Humalog ) Roll in palms of hands gently; Do not shake `vigorously. "Single Patient Use Only " WASTE: F/P - Black; E - Municipal Trash Bin Stable for 28 days at room temp erature. Expires in days from Date No Longer Active 03/04/2017 [facility] Insulin Glargine Notes: (Same as: Lantus) Do not hold insulin without contacting prescriber WASTE: F/P - Black; E - Municipal Trash Bin "single patient use only" No Longer Active 03/03/2017 [facility] Furosemide 20 MG Oral Tablet [Lasix] Notes: (Same as: Lasix) May cause GI upset. Give with food or milk. No Longer Active 03/03/2017 [facility] Furosemide 40 MG Oral Tablet [Lasix] Notes: (Same as: Lasix) 10 mg = 1/2 x 20 mg TAB May cause GI upset. Give with food or milk. Inactive 03/03/2017 [facility] Miralax Notes: Dissolve in 8 o z of water or juice. (Same as: Miralax) No Longer Active 03/03/2017 [facility] Seroquel Notes: (Same as: SERO quel) No Longer Active 03/03/2017 [facility] Ferrlecit Notes: (sodium saji c gluconate complex (elemental iron) 62.5 mg/5 ml INJ) "Limited stability. Use immediately after admixture" (Same as: Ferrlecit) MEDICATION WASTE Product Size: 62.5 mg Product Wasted: __0_ mg No Longer Active 03/02/2017 [facility] Lasix Notes: (Same as: Lasix) Inactive 03/02/2017 [facility] clopidogrel Notes: (Same As: P lavix) No Longer Active 03/02/2017 [facility] pantoprazole Notes: Tablet aidan uld not be chewed or crushed. (Same as: Protonix) N o Longer Active 03/02/2017 [facility] Insulin Lispro Notes: (Same as : Humalog ) Roll in palms of hands gently; Do not shake `vigorously. "Single Patient Use Only " WASTE: F/P - Black; E - Municipal Trash Bin Stable for 28 days at room temp erature. Expires in days from Date No Longer Active 03/02/2017 [facility] metoprolol tartrate Notes: (Sa me as: Lopressor) 12.5 mg=1/2 X 25 mg TAB No Longer Active 03/02/2017 [facility] Acetaminophen 325 MG / Hydrocodone Juan trate 5 MG Oral Tablet [[place] 5/325] Notes: (Same as: [place] 325/5) Do not ex ceed 4gm/day of acetaminophen. No Longer Activ e 03/01/2017 [facility] Seroquel Notes: (Same as: LESLIE cagle) No Longer Active 02/28/2017 [facility] Sodium Chloride 0.9% IV 1,000 mL + M.V.I .-12 10 mL Daily + folic acid IV 1 mg Daily + thiamine IV 1 1,000 mL, Rate: 100 ml/hr, Infuse over: 10.1 hr, Route: IV, Dosing Weight 100.909 kg, Total Volume: 1,011.2, Start date: 02/28/17 12:59:00 [employer], Duration: 3 day, Stop date: 03/03/17 12:58:00 [employer], 2.33, m2 No Longer Active 02/28/2017 [facility] Seroquel Notes: (Same as: SERO quel) Inactive 02/28/2017 [facility] Lasix Notes: (Same as: Lasix) No Longer Active 02/27/2017 [facility] Seroquel Notes: (Same as: SERO quel) No Longer Active 02/27/2017 [facility] Insulin Glargine Notes: Same a s: Lantus) Do not hold insulin without contacting prescriber WASTE: F/P - Black; E - Municipal Trash Bin No Longer Active 02/27/2017 [facility] Acetaminophen 10 MG/ML Injectable Solution Notes: Infuse over 15 minutes Do not exceed 4gm/day of acetaminophen MEDICATION WASTE Product Size: 1000 mg Product Wasted: ___ mg Inactive 02/27/2017 [facility] Haldol Notes: (Same as: Haldol) Inactive 02/27/2017 [facility] heparin Notes: porcine heparin No Longer Active 02/27/2017 [facility] Insulin Glargine Notes: (Same as: Lantus) Do not hold insulin without contacting prescriber WASTE: F/P - Black; E - Municipal Trash Bin "single patient use only" No Longer Active 02/27/2017 [facility] Insulin Lispro Notes: (Same as : Humalog ) Roll in palms of hands gently; Do not shake `vigorously. "Single Patient Use Only " WASTE: F/P - Black; E - Municipal Trash Bin Stable for 28 days at room temp erature. Expires in days from Date No Longer Active 02/26/2017 [facility] Dextrose 50% Syringe 25 gm, 50 mL, Route: IVP, Drug Form: INJ, Dosing Weight 100.909, kg, PRN, PRN Blood Glucose Results, Start date: 02/26/17 17:39:00 [employer], Duration: 30 day, Stop date: 03/28/17 17:38:00 [employer] No Longer Active 02/26/2017 [facility] Glucagon 1 mg, Route: IM, Drug form: PDR/INJ, PRN, Dosing Weight 100.909, kg, PRN Blood Glucose Results, Start date: 02/26/17 17:39:00 [employer], Duration: 30 day, Stop date: 03/28/17 17:38:00 [employer] No Longer Active 02/26/2017 [facility] Dexmedetomidine 400 microgram, 4 mL, Rate: Titrate, Start Dose: 0.2 microgram/kg/hr, Titration: 0.1 microgram/kg/hr every 30 min, Goal(s): comfort, Max Dose: 0.5 microgram/kg/hr, Route: IV, Dosing Weight 100.909 kg, Total Volume: 100, Start date: 02/26/17 16:28:00 CS... No Longer Active 02/26/2017 [facility] Haldol 2 mg, Route: IV, ONCE, Dosing Weight 100.909, kg, Start date: 02/26/17 15:58:00 [employer], Stop date: 02/26/17 15:58:00 [employer] Inactive 02/26/2017 [facility] Versed 2 mg, Route: IVP, ONCE, Dosing Weight 100.909, kg, Start date: 02/26/17 15:10:00 [employer], Stop date: 02/26/17 15:10:00 [employer] Inactive 02/26/2017 [facility] Midazolam 2 mg, Route: IVP, ON CE, Dosing Weight 100.909, kg, Start date: 02/26/17 7:55:00 [employer], Stop date: 02/26/17 7:55:00 [employer] Inactive 02/26/2017 [facility] heparin additive 25,000 unit [400 unit/h r] + Premix Diluent Sodium Chloride 0.45% 500 mL Notes: Total Concentration = 50 unit/ ml Total volume = 500 ml Send Med Request 2 hours prior to next bag No Longer Active 02/26/2017 [facility] Famotidine Notes: (Same as: Pe pcid) Can be dilute in 5- 10cc NS IVP: Slow IV push over at least 2 minutes. No Longer Active 02/26/2017 [facility] docusate sodium 100 mg oral capsule Notes: (Same as: Colace) (Do Not Crush) No Longer Active 02/25/2017 [facility] Aspirin 81 MG Chewable Tablet Notes: Take with food. No Longer Active 02/25/2017 [facility] Diphenhydramine Notes: (Same a s: Benadryl) No Longer Active 02/25/2017 [facility] Diphenhydramine Notes: (Same a s: Benadryl) No Longer Active 02/25/2017 [facility] Famotidine Notes: (Same as: Pe pcid) Can be dilute in 5- 10cc NS IVP: Slow IV push over at least 2 minutes. Inactive 02/25/2017 [facility] Versed Notes: (Same as: Versed ) MEDICATION WASTE Product Size: 2 mg Product Wasted: ___ mg No Longer Active 02/25/2017 [facility] Versed Notes: (Same as: Versed ) MEDICATION WASTE Product Size: 2 mg Product Wasted: ___ mg Inactive 02/25/2017 [facility] nter Mupirocin 1 appl, Route: NASAL , Q12H, Drug form: OINT, Start date: 02/24/17 21:00:00 [employer], Stop date: 03/01/17 9:00:00 [employer], MRSA Decolonization No Longer Activ e 02/25/2017 [facility] Sodium Chloride 0.9% (titrate) 250 mL 250 mL, Rate: square dance caller for use with blood product administration, Dosing Weight 100.909, kg, Route: IV, Total Volume: 250, Start Date: 02/24/17 19:20:00 [employer], Duration: 30 day, Stop date: 03/26/17 19:19:00 [employer], Replace Every: 24 hr No Longer Active 02/25/2017 [facility] Pepcid Notes: (Same as: Pepcid ) Can be dilute in 5-10cc NS IVP: Slow IV push over at least 2 minutes. Inactive 02/24/2017 [facility] nter Zantac 50 mg, Route: IVPB, ONC E, Dosing Weight 100.909, kg, Start date: 02/24/17 13:34:00 [employer], Stop date: 02/24/17 13:34:00 [employer] Inactive 02/24/2017 [facility] Diphenhydramine Notes: (Same a s: Benadryl) Inactive 02/24/2017 [facility] methylPREDNISolone SODium SUCCinate Notes: (Same as:Solu-MEDROL, A-Methapred) N o Longer Active 02/24/2017 [facility] nter albumin human 5% intravenous solution Notes: LOT#: Mfg: WASTE: F/P - Red; E -Red (Same as: Albuminar) "blood product derivative" Inactive 02/24/2017 [facility] nter cefepime Notes: (Same As: Alan avery) MEDICATION WASTE Product Size: 1000 mg Product Wasted: ___ mg No Longer Active 02/24/2017 [facility] Fluconazole Notes: (Same as: D iflucan) No Longer Active 02/24/2017 [facility] pantoprazole Notes: For IV pus h reconstitute with 10 ml 0.9% sodium chloride and push over 2 minutes. (Same as: Protonix) No Longer Active 02/24/2017 [facility] Miralax Notes: Dissolve in 8 o z of water or juice. (Same as: Miralax) No Longer Active 02/24/2017 [facility] Docusate Sodium 100 MG Oral Capsule [Colace] Notes: (Same as: Colace) (Do Not Crush) No Longer Active 02/24/2017 [facility] nter vancomycin 2001 mg: infuse ov er 2.5 hours For adult patients only: Round to nearest 250 mg per Medical Staff approval MEDICATION WASTE Product Size: 1000 mg Product Wasted: ___ mg No Longer Active 02/24/2017 [facility] Dexmedetomidine 400 microgram, 4 mL, Rate: Titrate, Start Dose: 0.2 microgram/kg/hr, Titration: 0.1 microgram/kg/hr every 30 min, Goal(s): RASS -1, Max Dose: 1.5 microgram/kg/hr, Route: IV, Dosing Weight 100.909 kg, Total Volume: 100, Start date: 02/24/17 8:42:00 [employer]... No Longer Active 02/24/2017 [facility] Benadryl Notes: (Same as: [place] dryl) Inactive 02/24/2017 [facility] Vasopressin (MCFP) Notes: (Same As: Pitressin, Vasostrict) No Longer Active 02/24/2017 [facility] Cefazolin 2 gm, Route: IVPB, D rug form: INJ, Q8H, Dosing Weight 100.909, kg, Start date: 02/24/17 0:00:00 [employer], Duration: 3 doses or times, Stop date: 02/24/17 16:00:00 [employer], ABX Indication: Surgical Prophylaxis No Longer Active 02/24/2017 [facility] ocular lubricant Notes: (Same as: Lacri-Lube, Duratears Naturale, Artificial Tears, and Tears Again ) No Longer Active 02/24/2017 [facility] sodium bicarbonate 8.4% Notes: (sodium bicarb 8.4% (1 mEq/ml) 50 ml VL) Inactive 02/24/2017 [facility] ceFAZolin (SCIP) Notes: (Same as Ancef) No Longer Active 02/24/2017 [facility] albumin human 25% intravenous solution Notes: Lot #: Mfg: (Same as: Plasbumin-25) "blood product derivative" WASTE: F/P - Red; E -Red MEDICATION WASTE Product Size: 25 gm Product Wasted: _0_ gm Inactive 02/24/2017 [facility] nter Vancomycin 1,500 mg, Route: IV PB, Drug form: INJ, Q12H, Dosing Weight 100.909, kg, Time Critical Medication, Start date: 02/23/17 21:00:00 [employer], Duration: 2 doses or times, Stop date: 02/24/17 9:00:00 [employer], ABX I ndication: Surgical Prophylaxis Inactive 02/24/2017 [facility] nter chlorhexidine gluconate 1.2 MG/ML Mouthwash Notes: (Same As: Peridex) No Longer Active 02/24/2017 [facility] albumin human 25% intravenous solution 25 gm, Route: IV, ONCE, Dosing Weight 100.909, kg, Start date: 02/23/17 20:27:00 [employer], Stop date: 02/23/17 20:27:00 [employer] Inactive 02/24/2017 [facility] Cefazolin Notes: (Same as Ance f) Inactive 02/24/2017 [facility] sodium phosphate 30 mmol, Rout e: IVPB, ONCE, Dosing Weight 100.909, kg, Priority: STAT, Start date: 02/23/17 19:17:00 [employer], Stop date: 02/23/17 19:17:00 [employer] Inactive 02/24/2017 [facility] nter potassium phosphate Notes: ([facility] as: K Phosphate.) 1 mMol phoshate has 1.47 mEq potassium Infuse over 4 hours Inactive 02/24/2017 [facility] Sodium Chloride 0.9% (titrate) 250 mL 250 mL, Rate: square dance caller for use with blood product administration, Dosing Weight 100.909, kg, Route: IV, Total Volume: 250, Start Date: 02/23/17 19:04:00 [employer], Duration: 30 day, Stop date: 03/25/17 19:03:00 [employer], Replace Every: 24 hr No Longer Active 02/24/2017 [facility] Vancomycin 2001 mg: infuse ov er 2.5 hours For adult patients only: Round to nearest 250 mg per Medical Staff approval MEDICATION WASTE Product Size: 1000 mg Product Wasted: ___ mg Inactive 02/24/2017 [facility] Norepinephrine Notes: Not for direct administration - DILUTE. Protect from light. (Same as:Levophed). Administer by either central venous catheter or peripherally-inserted central catheter (PICC) line. No Longer Active 02/24/2017 [facility] Epinephrine 8 mg, 8 mL, Rate: Titrate for MAP of 60, Start Dose: 2 microgram/min, Titration: For MAP of 60, Goal(s): MAP of 60, Route: IV, Dosing Weight 100.909 kg, Total Volume: 250, Start date: 02/23/17 18:40:00 [employer], Duration: 30 day, Stop date: 03/25/17 18:39:... No Longer Active 02/24/2017 [facility] chlorhexidine gluconate 1.2 MG/ML Mouthwash Notes: (Same As: Peridex) No Longer Active 02/24/2017 [facility] Fentanyl 1,000 microgram, 20 m L, Rate: Titrate, Start Dose: 50 microgram/hr, Titration: 25 microgram/hour every 15 minutes, Goal(s): RASS -2, Max Dose: 300 microgram/hr, Route: IV, Dosing Weight 100.909 kg, Total Volume: 20, Start date: 02/23/17 18:23:00 [employer],... No Longer Active 02/24/2017 [facility] Amicar Notes: (Same as: Amicar) Inactive 02/24/2017 [facility] Fentanyl Notes: Concentration is 20 micrograms/ml No Longer Active 02/23/2017 [facility] Naloxone Notes: Same as Narcan No Longer Active 02/23/2017 [facility] Dextrose 50% Syringe 12.5 gm, 25 mL, Route: IVP, Drug Form: INJ, Dosing Weight 100.909, kg, PRN, PRN Blood Glucose Results, Start date: 02/23/17 17:44:00 [employer], Duration: 30 day, Stop date: 03/25/17 17:43:00 [employer] No Longer Active 02/23/2017 [facility] Insulin regular 100 unit + Not es: Final Concentration 1unit/1ml WASTE: F/P - Black; E - Municipal Trash Bin No Longer Active 02/23/2017 [facility] Zofran Notes: (Same as: Chavo ) MEDICATION WASTE Product Size: 4 mg Product Wasted: _0_ mg No Longer Active 02/23/2017 [facility] sennosides, MCFP 8.6 MG Oral Tablet Notes: (Same as: Senokot) No Longer Active 02/23/2017 [facility] Cardene 40 mg in NS 200 mL (Titrate.) IV 40 mg Notes: Same as: Cardene Concentration: (0.2 mg /1 ml ) No Longer Active 02/23/2017 [facility] Acetaminophen 325 MG / Hydrocodone Juan trate 10 MG Oral Tablet Notes: Do not exceed 4gm/day of acetamin ophen. (Same as: [place] 325/10) No Longer Active 02/23/2017 [facility] Acetaminophen Notes: Do not ex ceed 4 gm/day. (Same as: Tylenol) No Longer Active 02/23/2017 [facility] hydrocortisone (ANES) Route: I V, Drug form: INJ, ONCE, Stop date: 02/23/17 16:30:00 [employer] Inactive 02/23/2017 [facility] nter Stimate (ANES) 4 microgram Rou te: IV, Drug Form: INJ, Start date: 02/23/17 16:13:00 [employer], Stop date: 02/23/17 17:13:00 [employer] Inactive 02/23/2017 [facility] methylene blue (ANES) 10 mg Ro kaw: IV, Drug form: INJ, Start date: 02/23/17 14:42:00 [employer], Stop date: 02/23/17 15:42:00 [employer] Inactive 02/23/2017 [facility] protamine (ANES) 10 mg Route: IV, Drug form: INJ, Start date: 02/23/17 14:42:00 [employer], Stop date: 02/23/17 15:42:00 [employer] Inactive 02/23/2017 [facility] vasopressin (ANES) Route: IV, Drug form: INJ, ONCE, Stop date: 02/23/17 14:29:00 [employer] Inactive 02/23/2017 [facility] nt calcium gluconate (ANES) Route : IV, Drug form: INJ, ONCE, Stop date: 02/23/17 14:29:00 [employer] Inactive 02/23/2017 [facility] nt norepinephrine (ANES) 32 microgram Route: IV, Drug form: INJ, Start date: 02/23/17 14:25:00 [employer], Stop date: 02/23/17 15:25:00 [employer] Inactive 02/23/2017 [facility] EPINEPHrine (ANES) Route: IV, Drug form: INJ, ONCE, Stop date: 02/23/17 14:24:00 [employer] Inactive 02/23/2017 [facility] magnesium sulfate (ANES) Route : IV, Drug form: INJ, ONCE, Stop date: 02/23/17 13:54:00 [employer] Inactive 02/23/2017 [facility] nt Sodium Chloride 0.9% IV (ANES) 500 mL Route: IV, Total Volume: 500, Start date: 02/23/17 13:28:00 [employer], Stop date: 02/23/17 14:28:00 [employer] Inactive 02/23/2017 [facility] Sodium Chloride 0.9% IV (ANES) 246 mL + EPINEPHrine (ANES) 4000 microgram Route: IV, Drug form: INJ, Start date: 0 02/23/17 13:26:00 [employer], Stop date: 02/23/17 14:26:00 [employer] Inactive 02/23/2017 [facility] Insulin regular (ANES) Route: IV, Drug form: INJ, ONCE, Stop date: 02/23/17 12:04:00 [employer] Inactive 02/23/2017 [facility] nter niCARdipine (ANES) Route: IV, Drug form: INJ, ONCE, Stop date: 02/23/17 10:39:00 [employer] Inactive 02/23/2017 [facility] nter heparin (ANES) Route: IV, Drug form: INJ, ONCE, Stop date: 02/23/17 10:24:00 [employer] Inactive 02/23/2017 [facility] nter norepinephrine (ANES) Route: I V, Drug form: INJ, ONCE, Stop date: 02/23/17 9:34:00 [employer] Inactive 02/23/2017 [facility] nter rocuronium (ANES) Route: IV, D rug form: INJ, ONCE, Stop date: 02/23/17 9:09:00 [employer] Inactive 02/23/2017 [facility] nter propofol (ANES) Route: IV, Christian g form: INJ, ONCE, Stop date: 02/23/17 9:09:00 [employer] Inactive 02/23/2017 [facility] nter lidocaine (ANES) Route: IV, Dr ug form: INJ, ONCE, Stop date: 02/23/17 9:09:00 [employer] Inactive 02/23/2017 [facility] nter ceFAZolin (ANES) Route: IV, Dr ug form: INJ, ONCE, Stop date: 02/23/17 8:58:00 [employer] Inactive 02/23/2017 [facility] nter metoprolol (ANES) Route: IV, D rug form: INJ, ONCE, Stop date: 02/23/17 8:53:00 [employer] Inactive 02/23/2017 [facility] nter fentaNYL (ANES) Route: IV, Christian g form: INJ, ONCE, Stop date: 02/23/17 8:53:00 [employer] Inactive 02/23/2017 [facility] nter midazolam (ANES) Route: IV, Dr ug form: SOLN, ONCE, Stop date: 02/23/17 8:33:00 [employer] Inactive 02/23/2017 [facility] nter vancomycin (ANES) 1000 mg Rout e: IV, Drug form: INJ, Start date: 02/23/17 8:30:00 [employer], Stop date: 02/23/17 9:30:00 [employer] Inactive 02/23/2017 [facility] tranexamic acid (ANES) 100 mg Route: IV, Drug form: INJ, Start date: 02/23/17 8:30:00 [employer], Stop date: 02/23/17 9:30:00 [employer] Inactive 02/23/2017 [facility] Sodium Chloride 0.9% IV (ANES) 1000 mL Route: IV, Total Volume: 1,000, Start date: 02/23/17 8:26:00 [employer], Stop date: 02/23/17 9:26:00 [employer] Inactive 02/23/2017 [facility] Isolyte S PH 7.4 (ANES) 1000 mL Route: IV, Total Volume: 1,000, Start date: 02/23/17 8:00:00 [employer], Stop date: 02/23/17 9:00:00 [employer] Inactive 02/23/2017 [facility] Saline Flush 0.9% Notes: (Same as: BD Posiflush) No Longer Active 02/23/2017 [facility] Cefazolin Notes: (Same As: Anc ef, Kefzol) MEDICATION WASTE Product Size: 1000 mg Product Wasted: ___ mg No Longer Active 02/23/2017 [facility] Mupirocin 0.02 MG/MG Topical Ointment Notes: 1/2 UD to each nostril. (Same As: Bactroban) No Longer Active 02/23/2017 [facility] nter Sodium Chloride 0.9% (titrate) 250 mL 250 mL, Rate: To prime line and flush remaining blood products., Dosing Weight 100.909, kg, Route: IV, Total Volume: 250, Start Date: 02/22/17 18:08:00 [employer], Duration: 30 day, Stop date: 03/24/17 18:07:00 [employer], Replace Every: 24 hr No Longer Active 02/23/2017 [facility] Saline Flush 0.9% Notes: (Same as: BD Posiflush) No Longer Active 02/23/2017 [facility] Metoprolol Notes: (Same as: Lo pressor) Push over 2 minutes No Longer Active 02/23/2017 [facility] Codeine Phosphate 10 MG / Guaifenesin 30 0 MG Oral Tablet Notes: (Same As: Robitussin AC) No Longer Active 02/22/2017 [facility] nter Acetaminophen 325 MG / Hydrocodone Juan trate 5 MG Oral Tablet [[place] 5/325] Notes: (Same as: [place] 325/5) Do not ex ceed 4gm/day of acetaminophen. No Longer Activ e 02/22/2017 [facility] Acetaminophen 325 MG / Hydrocodone Juan trate 5 MG Oral Tablet [[place] 5/325] Notes: (Same as: [place] 325/5) Do not ex ceed 4gm/day of acetaminophen. No Longer Activ e 02/21/2017 [facility] Diphenhydramine Notes: (Same a s: Benadryl) Inactive 02/21/2017 [facility] atorvastatin Notes: Same as Mary curry No Longer Active 02/21/2017 [facility] Furosemide 40 MG Oral Tablet N otes: (Same as: Lasix) MEDICATION WASTE Product Size: 40 mg Product Wasted: 0___ mg No Longer Active 02/20/2017 [facility] Furosemide 40 MG Oral Tablet N otes: (Same as: Lasix) May cause GI upset. Give with food or milk. Inactive 02/20/2017 [facility] nter Pneumovax 23 Notes: (Same as: Pneumovax 23) Refrigerate Inactive 02/20/2017 [facility] insulin glargine Notes: (Same as: Lantus) Do not hold insulin without contacting prescriber WASTE: F/P - Black; E - Municipal Trash Bin "single patient use only" Inactive 02/20/2017 [facility] Saline Flush 0.9% Notes: (Same as: BD Posiflush) No Longer Active 02/20/2017 [facility] influenza virus vaccine, inactivated Notes: (Same as: Fluzone Quadrivalent, Fluarix Quadrivalent) For 3 years of age and older (0.5 mL IM) Shake well before use Inactive 02/20/2017 [facility] nter pneumococcal capsular polysaccharide typ e 1 vaccine / pneumococcal capsular polysaccharide type 10A vaccine / pneumococcal capsular polysaccharide type 11A vaccine / pneumococcal capsular polysaccharide type 12F vaccine / pneumococcal capsular polysacchar Notes: (Same as: Pneumovax 23) Refrigerate Inactive 02/20/2017 [facility] sacubitril 24 MG / valsartan 26 MG Oral Tablet [Entresto] Notes: (Same as: Entresto) Avoid in pat ients with history of angioedema due to STEPHEN inhibitor or ARB therapy. Do not use concomitantly or within 36 hours of STEPHEN inhibitors No Longer Active 02/20/2017 [facility] nter metoprolol tartrate Notes: (Sa me as: Lopressor) No Longer Active 02/20/2017 [facility] Insulin Glargine 100 UNT/ML Injectable Solution Notes: (Same as: Lantus) Do not hold insulin without contacting prescriber WASTE: F/P - Black; E - Municipal Trash Bin "single patient use only" No Longer Active 02/20/2017 [facility] Aspirin 81 MG Enteric Coated Tablet Notes: Do not crush or chew. (Same As: Ecotrin) No Longer Active 02/20/2017 [facility] nter Insulin Lispro Notes: (Same as : Humalog ) Roll in palms of hands gently; Do not shake `vigorously. "Single Patient Use Only " WASTE: F/P - Black; E - Municipal Trash Bin Stable for 28 days at room temp erature. Expires in days from Date No Longer Active 02/20/2017 [facility] heparin additive 25,000 unit [12 unit/kg /hr] + Premix Diluent Sodium Chloride 0.45% 500 mL Notes: Total Concentration = 50 unit/ ml Total volume = 500 ml Send Med Request 2 hours prior to next bag No Longer Active 02/20/2017 [facility] Heparin 30 unit/kg Bolus (Heparin Dosing Weight) Route: IVP, PRN, 3,000 unit, 3 mL, Drug form: INJ, PRN, Heparin Protocol, Start date: 02/20/17 6:28:00 [employer] Stop date: 03/22/17 6:27:00 [employer] No Longer Active 02/20/2017 [facility] Heparin 60 unit/kg Bolus (Heparin Dosing Weight) Route: IVP, PRN, 6,100 unit, 6.1 mL, Drug form: INJ, PRN, Heparin Protocol, Start date: 02/20/17 6:28:00 [employer] Stop date: 03/22/17 6:27:00 [employer] No Longer Active 02/20/2017 [facility] Insulin Lispro Notes: (Same as : Humalog ) Roll in palms of hands gently; Do not shake `vigorously. "Single Patient Use Only " WASTE: F/P - Black; E - Municipal Trash Bin Stable for 28 days at room temp erature. Expires in days from Date No Longer Active 02/20/2017 [facility] Dextrose 50% Syringe 12.5 gm, 25 mL, Route: IVP, Drug Form: INJ, Dosing Weight 100.909, kg, PRN, PRN Blood Glucose Results, Start date: 02/20/17 6:25:00 [employer], Duration: 30 day, Stop date: 03/22/17 6:24:00 [employer] No Longer Active 02/20/2017 [facility] Glucagon 1 mg, Route: IM, Drug form: PDR/INJ, PRN, Dosing Weight 100.909, kg, PRN Blood Glucose Results, Start date: 02/20/17 6:25:00 [employer], Duration: 30 day, Stop date: 03/22/17 6:24:00 [employer]ER No Longer Active 02/20/2017 [facility] Calcium Gluconate Notes: WASTE : F/P - Sink; E - Municipal Trash Bin No Longer Active 02/20/2017 [facility] nter Magnesium Sulfate Notes: WASTE : F/P - Sink; E - Municipal Trash Bin No Longer Active 02/20/2017 [facility] nter Magnesium Oxide Notes: (Same a s: Mag-Ox 400) Magnesium oxide [id number] elemental magnesium Dose=____mg magnesium oxide (___mg elemental magnesium) No Longer Active 02/20/2017 [facility] nter Potassium Chloride Notes: (Juan hui as: K-Dur 20) "Do Not Crush" With food and full glass of water No Longer Active 02/20/2017 [facility] nter sodium phosphate 30 mmol, 10 m L, Route: IVPB, PRN, Dosing Weight 100.909, kg, PRN Abnormal Lab Result, For NON-ICU Patients Only., Start date: 02/20/17 6:19:00 [employer], Duration: 30 day, Stop date: 03/22/17 6:18:00 [employer] No Longer Active 02/20/2017 [facility] potassium phosphate Notes: (Sa me as: K Phosphate.) 1 mMol phoshate has 1.47 mEq potassium Infuse over 4 hours No Longer Active 02/20/2017 [facility] potassium phosphate-sodium phosphate 250 mg-280 mg-160 mg oral powder for reconstitution Notes: (Same as: Phos-NaK) Each 1.5 gm pkt has 250mg phosphorous. Mix w/2.5oz water and stir. No Longer Active 02/20/2017 [facility] Saline Flush 0.9% Notes: (Same as: BD Posiflush) No Longer Active 02/20/2017 [facility] Ondansetron Notes: (Same as: Neena last) MEDICATION WASTE Product Size: 4 mg Product Wasted: ___ mg No Longer Active 02/20/2017 [facility] Morphine Notes: (Same as:MORPh ine Sulfate) No Longer Active 02/20/2017 [facility] Acetaminophen 325 MG / Hydrocodone Juan trate 7.5 MG Oral Tablet [[place] 7.5/325] Notes: Same as [place] 325-7.5mg Do not exceed 4gm/day of acetaminophen. No Longer Active 02/20/2017 [facility] nter heparin 1000 units/mL injectable solution 2,900 unit = 2.9 mL, IVP, PRN, PRN Heparin Protocol, 0 Refill(s) No Longer Active 02/20/2017 [facility] Glucagon 1 mg, IM, PRN, PRN Bl ood Glucose Results, 0 Refill(s) No Longer Active 02/20/2017 [facility] Furosemide 40 MG Oral Tablet 4 0 mg = 1 tab, PO, BID Diuretic, 0 Refill(s) No Longe r Active 02/20/2017 [facility] sacubitril 24 MG / valsartan 26 MG Oral Tablet [Entresto] 1 tab, PO, Q12H, 0 Refill(s) No Longer Active 02/20/2017 [facility] ondansetron 2 mg/mL injectable solution 4 mg = 2 mL, IVP, Q6H, PRN Nausea, 0 Refill(s) No Longer Active 02/20/2017 [facility] Morphine 4 mg = 1 mL, IV, Q4H, PRN Pain Score 6-10, 0 Refill(s) No Longer Active 02/20/2017 [facility] Alprazolam 0.25 MG Oral Tablet [Xanax] 0.25 mg = 1 tab, PO, Q12H, PRN Anxiety, 0 Refill(s) No Longer Active 02/20/2017 [facility] atorvastatin 40 mg oral tablet 40 mg = 1 tab, PO, Bedtime, 0 Refill(s) No Longer Active 02/20/2017 [facility] Aspirin 81 MG Enteric Coated Tablet 81 mg = 1 tab, PO, Daily, 0 Refill(s) Active 02/20/2017 [facility] metoprolol tartrate 25 mg oral tablet 12.5 mg = 0.5 tab, PO, Q12H, 0 Refill(s) No Longer Active 02/20/2017 [facility] insulin lispro 100 units/mL subcutaneous injection 10 unit, SUB-Q, TID-Before Meals, PRN Blood Glucose Results, 0 Refill(s) No Longer Active 02/20/2017 [facility] Acetaminophen 325 MG / Hydrocodone Juan trate 7.5 MG Oral Tablet [[place] 7.5/325] 1 tab, PO, Q4H, PRN Pain Score 4-6, 0 Re fill(s) No Longer Active 02/20/2017 [facility] Insulin Glargine 100 UNT/ML Injectable Solution 18 unit, SUB-Q, Daily, 0 Refill(s) No Longer Active 02/20/2017 [facility] aspirin 81 mg tablet, enteric coated 81 mg = 1 tab, PO, Daily, 0 Refill(s) On Hold 02/20/2017 [facility] Acetaminophen 325 MG / Hydrocodone Juan trate 7.5 MG Oral Tablet [[place] 7.5/325] Notes: Same as [place] 325-7.5mg Do not exceed 4gm/day of acetaminophen. No Longer Active 02/20/2017 [facility] Potassium Chloride Notes: (Juan e as: K-Dur 20) "Do Not Crush" With food and full glass of water Inactive 02/19/2017 [facility] insulin glargine Notes: (Same as: Lantus) Do not hold insulin without contacting prescriber WASTE: F/P - Black; E - Municipal Trash Bin "single patient use only" Inactive 02/19/2017 [facility] Magnesium Sulfate Notes: WASTE : F/P - Sink; E - Municipal Trash Bin Inactive 02/19/2017 [facility] Morphine Notes: (Same as:MORPh ine Sulfate) No Longer Active 02/18/2017 [facility] Levemir 10 unit, Route: SUB-Q, Daily, Dosing Weight 110.909, kg, Start date: 02/18/17 10:30:00 [employer], Duration: 30 day, Stop date: 03/20/17 9:00:00 [employer] Inactive 02/18/2017 [facility] insulin glargine Notes: (Same as: Lantus) Do not hold insulin without contacting prescriber WASTE: F/P - Black; E - Municipal Trash Bin "single patient use only" No Longer Active 02/18/2017 [facility] sacubitril 24 MG / valsartan 26 MG Oral Tablet [Entresto] Notes: (Same as: Entresto) Avoid in pat ients with history of angioedema due to STEPHEN inhibitor or ARB therapy. Do not use concomitantly or within 36 hours of STEPHEN inhibitors No Longer Active 02/18/2017 [facility] Potassium Chloride 1.33 MEQ/ML Oral Solution Notes: (Same as: Potassium Chloride) Inactive 02/18/2017 [facility] Alprazolam 0.25 MG Oral Tablet [Xanax] Notes: With food or milk (Same as: Xanax) No Longer Active 02/17/2017 [facility] Lasix Notes: (Same as: Lasix) May cause GI upset. Give with food or milk. No Longer Active 02/17/2017 [facility] Heparin 30 unit/kg Bolus (Heparin Dosing Weight) Route: IVP, PRN, 2,900 unit, 2.9 mL, Drug form: INJ, PRN, Heparin Protocol, Start date: 02/16/17 19:13:00 [employer] Stop date: 03/18/17 19:12:00 [employer], 30 day No Longer Active 02/17/2017 [facility] Heparin 60 unit/kg Bolus (Heparin Dosing Weight) Route: IVP, PRN, 5,800 unit, 5.8 mL, Drug form: INJ, PRN, Heparin Protocol, Start date: 02/16/17 19:13:00 [employer] Stop date: 03/18/17 19:12:00 [employer], 30 day No Longer Active 02/17/2017 [facility] Heparin - one time bolus for ACS 4,000 unit, 4 mL, Route: IVP, Drug form: INJ, ONCE, Dosing Weight 110.909, kg, Priority: STAT, Start date: 02/16/17 19:13:00 [employer], Stop date: 02/16/17 19:13:00 [employer] Inactive 02/17/2017 [facility] heparin additive 25,000 unit [10.371 uni t/kg/hr] + Premix Diluent Dextrose 5% 500 mL 500 mL, Rate: 20 ml/hr, Infuse over: 25 hr, Route: IV, Dosing Weight 96.44 kg, Total Volume: 500 mL, Start date: 02/16/17 19:13:00 [employer], Duration: 30 day, Stop date: 03/18/17 19:12:00 [employer], 2.28, m2 No Longer Active 02/17/2017 [facility] Ondansetron Notes: (Same as: Neena last) MEDICATION WASTE Product Size: 4 mg Product Wasted: ___ mg No Longer Active 02/16/2017 [facility] Azithromycin Notes: (Same As: Zithromax IV) No Longer Active 02/16/2017 [facility] Rocephin Notes: (Same As: Roce phin). Use with 100 mL NS and infuse over 30 min MEDICATION WASTE Product Size: 1000 mg Product Wasted: ___ mg No Longer Active 02/16/2017 [facility] Aspirin Notes: Do not crush or chew. (Same As: Ecotrin) No Longer Active 02/16/2017 [facility] metoprolol tartrate Notes: (Sa me as: Lopressor) No Longer Active 02/16/2017 [facility] Lipitor Notes: (Same as: Lipit or) No Longer Active 02/16/2017 [facility] Morphine Notes: (Same as:MORPh ine Sulfate) No Longer Active 02/16/2017 [facility] Sodium Chloride 0.9% (Bolus) IV 250 mL, 250 ml/hr, Infuse Over: 1 hr, Route: IV, 250, Drug form: INJ, ONCALL, Priority: Routine, Dosing Weight 97.727 kg, Start date: 02/15/17 18:00:00 [employer], Duration: 1 doses or times No Longer Active 02/16/2017 [facility] Sodium Chloride 0.9% IV 750 mL 750 mL, Rate: 75 ml/hr, Infuse over: 10 hr, Route: IV, Dosing Weight 97.727 kg, Total Volume: 750, Start date: 02/15/17 17:59:00 [employer], Duration: 24 hr, Stop date: 02/16/17 17:58:00 [employer], 2.29, m2 No Longer Active 02/15/2017 [facility] Insulin Lispro Notes: Roll in palms of hands gently; Do not shake `vigorously. (Same as: Humalog ) "Single Patient Use Only " WASTE: F/P - Black; E - Municipal Trash Bin Stable for 28 days at room temperature. Expires in days from Date No Longer Active 02/15/2017 [facility] Glucagon 1 mg, Route: IM, Drug form: PDR/INJ, PRN, Dosing Weight 97.727, kg, PRN Blood Glucose Results, Start date: 02/15/17 14:49:00 [employer], Duration: 30 day, Stop date: 03/17/17 14:48:00 [employer] No Longer Active 02/15/2017 [facility] Dextrose 50% Syringe 25 gm, 50 mL, Route: IVP, Drug Form: INJ, Dosing Weight 97.727, kg, PRN, PRN Blood Glucose Results, Start date: 02/15/17 14:49:00 [employer], Duration: 30 day, Stop date: 03/17/17 14:48:00 [employer] No Longer Active 02/15/2017 [facility] Ceftriaxone Notes: (Same As: Juan C adams). Use with 100 mL NS and infuse over 30 min MEDICATION WASTE Product Size: 1000 mg Product Wasted: ___ mg Inactive 02/15/2017 [facility] Azithromycin Notes: (Same As: Zithromax IV) Inactive 02/15/2017 [facility] Ondansetron 4 mg, Route: IVP, Drug form: INJ, ONCE, Dosing Weight 97.727, kg, Priority: STAT, Start date: 02/15/17 10:58:00 [employer], Stop date: 02/15/17 10:58:00 [employer] Inactive 02/15/2017 [facility] Morphine 4 mg, Route: IVP, ONC E, Dosing Weight 97.727, kg, Priority: STAT, Start date: 02/15/17 10:58:00 [employer], Stop date: 02/15/17 10:58:00 [employer] Inactive 02/15/2017 [facility] Aspirin 325 mg, Route: PO, Christian g form: TAB, ONCE, Dosing Weight 97.727, kg, Priority: STAT, Start date: 02/15/17 9:50:00 [employer], Stop date: 02/15/17 9:50:00 [employer] Inactive 02/15/2017 [facility] Allergies, Adverse Reactions, Alerts Substance Category Reaction Severity Reaction type Status Date Reported Comments Source Michael Assertion Drug allergy Active [facility] Immunizations Immunization Date Given Site Status Last Updated Comments Source pneumococcal 23-valent vaccine 02/20/2017 Right deltoid completed [facility] influenza virus vaccine, inactivated 02/20/2017 Left deltoid completed [facility] Results Order Name Results Value Reference Range Date Interpretation Comments Source CHEM PANEL Magnesium Lvl 1.4 1.8 - 2.4 10/17/2017 [facility] CHEM PANEL eGFR 57 10/17/2017 Result Comment: [...] should be multiplied by the estimated BMI. [facility] CHEM PANEL Globulin 3.6 2.7 - 4.2 10/17/2017 [facility] CHEM PANEL A/G Ratio 0.9 0.7 - 1.6 10/17/2017 [facility] CHEM PANEL ALT 36 0 - 65 10/17/2017 [facility] CHEM PANEL B/C Ratio 19 6 - 25 10/17/2017 [facility] CHEM PANEL Albumin Lvl 3.3 3.5 - 5.0 10/17/2017 [facility] CHEM PANEL Total Protein 6.9 6.4 - 8.4 10/17/2017 [facility] CHEM PANEL Alk Phos 60 39 - 136 10/17/2017 [facility] CHEM PANEL AST 30 0 - 37 10/17/2017 [facility] CHEM PANEL Bili Total 1.5 0.2 - 1.3 10/17/2017 [facility] CHEM PANEL Chloride Lvl 102 95 - 109 10/17/2017 [facility] CHEM PANEL Glucose Lvl 249 70 - 99 10/17/2017 [facility] CHEM PANEL CO2 25 24 - 32 10/17/2017 [facility] CHEM PANEL AGAP 12.7 10.0 - 20.0 10/17/2017 [facility] CHEM PANEL Calcium Lvl 8.7 8.5 - 10.5 10/17/2017 [facility] CHEM PANEL Potassium Lvl 3.7 3.5 - 5.1 10/17/2017 [facility] CHEM PANEL BUN 25 7 - 22 10/17/2017 [facility] CHEM PANEL Sodium Lvl 136 135 - 145 10/17/2017 [facility] CHEM PANEL Creatinine Lvl 1.32 0.50 - 1.40 10/17/2017 [facility] CHEM PANEL Phosphorus 1.9 2.5 - 4.5 10/17/2017 [facility] HEMATOLOGY MPV 8.5 7.4 - 10.4 10/17/2017 [facility] HEMATOLOGY Platelet 180 133 - 450 10/17/2017 [facility] HEMATOLOGY RDW 14.0 11.5 - 14.5 10/17/2017 [facility] HEMATOLOGY MCHC 34.7 32.0 - 36.0 10/17/2017 [facility] HEMATOLOGY MCH 37.9 27.0 - 31.0 10/17/2017 [facility] HEMATOLOGY Hgb 13.8 14.0 - 18.0 10/17/2017 [facility] HEMATOLOGY RBC 3.64 4.70 - 6.10 10/17/2017 [facility] HEMATOLOGY WBC 8.1 3.7 - 10.4 10/17/2017 [facility] HEMATOLOGY MCV 109.2 80.0 - 94.0 10/17/2017 [facility] HEMATOLOGY Hct 39.7 42.0 - 54.0 10/17/2017 [facility] HEMATOLOGY Lymphocytes # 2.1 1.0 - 5.5 10/17/2017 [facility] HEMATOLOGY Eosinophils # 0.2 0.0 - 0.5 10/17/2017 [facility] HEMATOLOGY Monocytes # 1.0 0.0 - 0.8 10/17/2017 [facility] HEMATOLOGY Monocytes 12.7 2.0 - 12.0 10/17/2017 [facility] HEMATOLOGY Lymphocytes 25.7 20.0 - 40.0 10/17/2017 [facility] HEMATOLOGY Eosinophils 2.5 0.0 - 4.0 10/17/2017 [facility] HEMATOLOGY Basophils # 0.1 0.0 - 0.2 10/17/2017 [facility] HEMATOLOGY Neutrophils # 4.7 1.5 - 8.1 10/17/2017 [facility] HEMATOLOGY Basophils 1.1 0.0 - 1.0 10/17/2017 [facility] HEMATOLOGY Segs 58.0 45.0 - 75.0 10/17/2017 [facility] DRUG SCREEN U Amph Scr Posi tive *ABN* (10/16/17 10:41 AM) Negative 10/16/2017 [facility] DRUG SCREEN U Usha Scr Nega tive *NA* (10/16/17 10:41 AM) Negative 10/16/2017 [facility] DRUG SCREEN U Cannab Scr Nega tive *NA* (10/16/17 10:41 AM) Negative 10/16/2017 [facility] DRUG SCREEN U Benzodiaz Scr Nega tive *NA* (10/16/17 10:41 AM) Negative 10/16/2017 [facility] DRUG SCREEN U Cocaine Scr Nega tive *NA* (10/16/17 10:41 AM) Negative 10/16/2017 [facility] DRUG SCREEN UDS Note See Note (10/16/17 10:41 AM) 10/16/2017 [facility] DRUG SCREEN U Opiate Scr Posi tive *ABN* (10/16/17 10:41 AM) Negative 10/16/2017 [facility] DRUG SCREEN U Phencyclidine Scr Nega tive *NA* (10/16/17 10:41 AM) Negative 10/16/2017 [facility] URINE AND STOOL UA WBC <1 0 - 5 10/16/2017 [facility] URINE AND STOOL UA RBC <1 0 - 2 10/16/2017 [facility] URINE AND STOOL UA Leuk Est Negative (10/16/17 10:41 AM) Negative 10/16/2017 [facility] URINE AND STOOL UA Blood Negative (10/16/17 10:41 AM) Negative 10/16/2017 [facility] URINE AND STOOL UA Nitrite Negative (10/16/17 10:41 AM) Negative 10/16/2017 [facility] URINE AND STOOL UA Ketones 40 mg/dL Negative mg/dL 10/16/2017 [facility] URINE AND STOOL UA Bili Negative *NA* (10/16/17 10:41 AM) Negative 10/16/2017 [facility] URINE AND STOOL UA Glucose 30 mg/dL Negative mg/dL 10/16/2017 [facility] URINE AND STOOL UA Urobilinogen <=1.0 mg/dL 0.1 - 1.0 10/16/2017 [facility] URINE AND STOOL UA Sq Epi None Seen 10/16/2017 [facility] URINE AND STOOL UA Mucus Few /LPF None Seen /LPF 10/16/2017 [facility] URINE AND STOOL UA pH 5.5 5.0 - 8.0 10/16/2017 [facility] URINE AND STOOL UA Spec Grav 1.036 <=1.030 10/16/2017 [facility] URINE AND STOOL UA Protein 10 mg/dL Negative mg/dL 10/16/2017 [facility] URINE AND STOOL UA Color Yellow *NA* (10/16/17 10:41 AM) Yellow 10/16/2017 [facility] URINE AND STOOL UA Turbidity Clear (10/16/17 10:41 AM) Clear 10/16/2017 [facility] CARDIAC ENZYMES Troponin-I <0.02 0.00 - 0.40 10/16/2017 [facility] ANEMIA STUDY Folate Lvl 9.8 >=3.0 ng/mL 10/16/2017 [facility] ANEMIA STUDY Vitamin B12 Lvl 236 254 - 1320 10/16/2017 [facility] CARDIAC ENZYMES Troponin-I <0.02 0.00 - 0.40 10/16/2017 [facility] CHEM PANEL Magnesium Lvl 1.4 1.8 - 2.4 10/16/2017 [facility] CHEM PANEL Phosphorus 3.4 2.5 - 4.5 10/16/2017 [facility] LIPIDS LDL (Calculated) 113 <=99 mg/dL 10/16/2017 [facility] LIPIDS VLDL 33 10/16/2017 [facility] LIPIDS Trig 164 <=149 mg/dL 10/16/2017 [facility] LIPIDS Chol 204 <=199 mg/dL 10/16/2017 [facility] LIPIDS HDL 58 >=61 mg/dL 10/16/2017 [facility] LIPIDS CHD Risk 3.52 4.00 - 7.30 10/16/2017 [facility] SPECIAL CHEMISTRY Hgb A1C 7.8 <=5.6 % 10/16/2017 [facility] CARDIAC ENZYMES Troponin-I <0.02 0.00 - 0.40 10/16/2017 [facility] CARDIAC ENZYMES Total CK 45 12 - 191 10/16/2017 [facility] CHEM PANEL B/C Ratio 16 6 - 25 10/16/2017 [facility] CHEM PANEL AGAP 16.1 10.0 - 20.0 10/16/2017 [facility] CHEM PANEL A/G Ratio 1.0 0.7 - 1.6 10/16/2017 [facility] CHEM PANEL Globulin 3.7 2.7 - 4.2 10/16/2017 [facility] CHEM PANEL Bili Total 0.8 0.2 - 1.3 10/16/2017 [facility] CHEM PANEL eGFR 49 10/16/2017 Result Comment: [...] should be multiplied by the estimated BMI. [facility] CHEM PANEL Alk Phos 59 39 - 136 10/16/2017 [facility] CHEM PANEL AST 55 0 - 37 10/16/2017 [facility] CHEM PANEL ALT 50 0 - 65 10/16/2017 [facility] CHEM PANEL Calcium Lvl 8.8 8.5 - 10.5 10/16/2017 [facility] CHEM PANEL CO2 23 24 - 32 10/16/2017 [facility] CHEM PANEL Chloride Lvl 104 95 - 109 10/16/2017 [facility] CHEM PANEL Potassium Lvl 4.1 3.5 - 5.1 10/16/2017 [facility] CHEM PANEL Albumin Lvl 3.8 3.5 - 5.0 10/16/2017 [facility] CHEM PANEL Total Protein 7.5 6.4 - 8.4 10/16/2017 [facility] CHEM PANEL Glucose Lvl 108 70 - 99 10/16/2017 [facility] CHEM PANEL Creatinine Lvl 1.48 0.50 - 1.40 10/16/2017 [facility] CHEM PANEL BUN 23 7 - 22 10/16/2017 [facility] CHEM PANEL Sodium Lvl 139 135 - 145 10/16/2017 [facility] HEMATOLOGY MPV 8.2 7.4 - 10.4 10/16/2017 [facility] HEMATOLOGY Hgb 14.4 14.0 - 18.0 10/16/2017 [facility] HEMATOLOGY WBC 8.3 3.7 - 10.4 10/16/2017 [facility] HEMATOLOGY RBC 3.82 4.70 - 6.10 10/16/2017 [facility] HEMATOLOGY Hct 42.2 42.0 - 54.0 10/16/2017 [facility] HEMATOLOGY MCV 110.4 80.0 - 94.0 10/16/2017 [facility] HEMATOLOGY RDW 14.1 11.5 - 14.5 10/16/2017 [facility] HEMATOLOGY Platelet 201 133 - 450 10/16/2017 [facility] HEMATOLOGY MCH 37.8 27.0 - 31.0 10/16/2017 [facility] HEMATOLOGY MCHC 34.2 32.0 - 36.0 10/16/2017 [facility] HEMATOLOGY PT 13.7 12.0 - 14.7 10/16/2017 [facility] HEMATOLOGY INR 1.05 0.85 - 1.17 10/16/2017 [facility] HEMATOLOGY PTT 30.3 22.9 - 35.8 10/16/2017 [facility] HEMATOLOGY Eosinophils # 0.2 0.0 - 0.5 10/16/2017 [facility] HEMATOLOGY Basophils # 0.1 0.0 - 0.2 10/16/2017 [facility] HEMATOLOGY Macrocyte 3+ *NA* (10/16/17 1:00 AM) None Seen 10/16/2017 [facility] HEMATOLOGY Monocytes # 0.9 0.0 - 0.8 10/16/2017 [facility] HEMATOLOGY Segs 52.5 45.0 - 75.0 10/16/2017 [facility] HEMATOLOGY Lymphocytes 33.7 20.0 - 40.0 10/16/2017 [facility] HEMATOLOGY Monocytes 10.3 2.0 - 12.0 10/16/2017 [facility] HEMATOLOGY Lymphocytes # 2.8 1.0 - 5.5 10/16/2017 [facility] HEMATOLOGY Eosinophils 2.2 0.0 - 4.0 10/16/2017 [facility] HEMATOLOGY Basophils 1.3 0.0 - 1.0 10/16/2017 [facility] HEMATOLOGY Neutrophils # 4.3 1.5 - 8.1 10/16/2017 [facility] CHEM PANEL eGFR 48 10/16/2017 Result Comment: [...] should be multiplied by the estimated BMI. [facility] CHEM PANEL POC Hemoglobin 15.6 14.0 - 18.0 10/16/2017 [facility] CHEM PANEL POC Glucose 113 70 - 99 10/16/2017 [facility] CHEM PANEL POC Ion Ca 1.00 1.05 - 1.25 10/16/2017 [facility] CHEM PANEL POC BUN 24 7 - 22 10/16/2017 [facility] CHEM PANEL POC Creatinine 1.5 0.5 - 1.4 10/16/2017 [facility] CHEM PANEL POC Potassium 4.3 3.5 - 5.1 10/16/2017 [facility] CHEM PANEL POC Chloride 102 95 - 109 10/16/2017 [facility] CHEM PANEL POC Sodium 139 135 - 145 10/16/2017 [facility] CHEM PANEL POC Carbon Dioxide 21 24 - 32 10/16/2017 [facility] CHEM PANEL POC AGAP 20.0 10.0 - 20.0 10/16/2017 [facility] CHEM PANEL POC Hematocrit 46.0 42.0 - 54.0 10/16/2017 [facility] CARDIAC ENZYMES BNP 976 <=100 pg/mL 06/03/2017 [facility] ELECTROLYTES AGAP 12.0 10.0 - 20.0 06/03/2017 [facility] ELECTROLYTES eGFR 46 06/03/2017 Result Comment: The [...] be multiplied by the estimated BMI. [facility] ELECTROLYTES CO2 29 24 - 32 06/03/2017 [facility] ELECTROLYTES Calcium Lvl 9.7 8.5 - 10.5 06/03/2017 [facility] ELECTROLYTES Potassium Lvl 5.0 3.5 - 5.1 06/03/2017 [facility] ELECTROLYTES Sodium Lvl 139 135 - 145 06/03/2017 [facility] ELECTROLYTES BUN 32 7 - 22 06/03/2017 [facility] ELECTROLYTES Creatinine Lvl 1.5 7 0.50 - 1.40 06/03/2017 [facility] ELECTROLYTES Chloride Lvl 103 95 - 109 06/03/2017 [facility] ELECTROLYTES Glucose Lvl 159 70 - 99 06/03/2017 [facility] HEMATOLOGY Eosinophils # 0.3 0.0 - 0.5 06/03/2017 [facility] HEMATOLOGY Basophils # 0.2 0.0 - 0.2 06/03/2017 [facility] HEMATOLOGY Lymphocytes # 2.4 1.0 - 5.5 06/03/2017 [facility] HEMATOLOGY Monocytes # 0.9 0.0 - 0.8 06/03/2017 [facility] HEMATOLOGY Basophils 2.5 0.0 - 1.0 06/03/2017 [facility] HEMATOLOGY Segs-Bands # 2.4 1.5 - 8.1 06/03/2017 [facility] HEMATOLOGY Segs 38.6 45.0 - 75.0 06/03/2017 [facility] HEMATOLOGY Monocytes 14.3 2.0 - 12.0 06/03/2017 [facility] HEMATOLOGY Lymphocytes 39.3 20.0 - 40.0 06/03/2017 [facility] HEMATOLOGY Eosinophils 5.3 0.0 - 4.0 06/03/2017 [facility] HEMATOLOGY MCHC 34.1 32.0 - 36.0 06/03/2017 [facility] HEMATOLOGY RDW 16.4 11.5 - 14.5 06/03/2017 [facility] HEMATOLOGY MPV 9.0 7.4 - 10.4 06/03/2017 [facility] HEMATOLOGY MCH 35.2 27.0 - 31.0 06/03/2017 [facility] HEMATOLOGY Platelet 173 133 - 450 06/03/2017 [facility] HEMATOLOGY WBC 6.2 3.7 - 10.4 06/03/2017 [facility] HEMATOLOGY MCV 103.3 80.0 - 94.0 06/03/2017 [facility] HEMATOLOGY Hct 45.8 42.0 - 54.0 06/03/2017 [facility] HEMATOLOGY Hgb 15.6 14.0 - 18.0 06/03/2017 [facility] HEMATOLOGY RBC 4.43 4.70 - 6.10 06/03/2017 [facility] CARDIAC ENZYMES BNP 1307 <=100 pg/mL 04/05/2017 [facility] CHEM PANEL A/G Ratio 0.9 0.7 - 1.6 04/05/2017 [facility] CHEM PANEL AGAP 11.6 10.0 - 20.0 04/05/2017 [facility] CHEM PANEL B/C Ratio 11 6 - 25 04/05/2017 [facility] CHEM PANEL Globulin 4.3 2.7 - 4.2 04/05/2017 [facility] CHEM PANEL eGFR 57 04/05/2017 Result Comment: [...] be multiplied by the estimated BMI. [facility] CHEM PANEL Creatinine Lvl 1.32 0.50 - 1.40 04/05/2017 [facility] CHEM PANEL BUN 14 7 - 22 04/05/2017 [facility] CHEM PANEL Glucose Lvl 178 70 - 99 04/05/2017 [facility] CHEM PANEL Total Protein 8.1 6.4 - 8.4 04/05/2017 [facility] CHEM PANEL AST 20 0 - 37 04/05/2017 [facility] CHEM PANEL Albumin Lvl 3.8 3.5 - 5.0 04/05/2017 [facility] CHEM PANEL Alk Phos 104 39 - 136 04/05/2017 [facility] CHEM PANEL ALT 17 0 - 65 04/05/2017 [facility] CHEM PANEL Calcium Lvl 9.6 8.5 - 10.5 04/05/2017 [facility] CHEM PANEL CO2 28 24 - 32 04/05/2017 [facility] CHEM PANEL Potassium Lvl 4.6 3.5 - 5.1 04/05/2017 [facility] CHEM PANEL Sodium Lvl 137 135 - 145 04/05/2017 [facility] CHEM PANEL Chloride Lvl 102 95 - 109 04/05/2017 [facility] CHEM PANEL Bili Total 0.9 0.2 - 1.3 04/05/2017 [facility] HEMATOLOGY Platelet 204 133 - 450 04/05/2017 [facility] HEMATOLOGY RDW 21.4 11.5 - 14.5 04/05/2017 [facility] HEMATOLOGY MCHC 33.9 32.0 - 36.0 04/05/2017 [facility] HEMATOLOGY MCH 34.4 27.0 - 31.0 04/05/2017 [facility] HEMATOLOGY MCV 101.6 80.0 - 94.0 04/05/2017 [facility] HEMATOLOGY Hct 41.0 42.0 - 54.0 04/05/2017 [facility] HEMATOLOGY WBC 8.0 3.7 - 10.4 04/05/2017 [facility] HEMATOLOGY RBC 4.04 4.70 - 6.10 04/05/2017 [facility] HEMATOLOGY Hgb 13.9 14.0 - 18.0 04/05/2017 [facility] HEMATOLOGY MPV 8.1 7.4 - 10.4 04/05/2017 [facility] HEMATOLOGY Segs-Bands # 4.2 1.5 - 8.1 04/05/2017 [facility] HEMATOLOGY Eosinophils 7.3 0.0 - 4.0 04/05/2017 [facility] HEMATOLOGY Basophils 1.0 0.0 - 1.0 04/05/2017 [facility] HEMATOLOGY Monocytes 16.1 2.0 - 12.0 04/05/2017 [facility] HEMATOLOGY Lymphocytes 22.9 20.0 - 40.0 04/05/2017 [facility] HEMATOLOGY Segs 52.7 45.0 - 75.0 04/05/2017 [facility] HEMATOLOGY Basophils # 0.1 0.0 - 0.2 04/05/2017 [facility] HEMATOLOGY Lymphocytes # 1.8 1.0 - 5.5 04/05/2017 [facility] Monocytes # 1.3 0.0 - 0.8 04/05/2017 [facility] HEMATOLOGY Eosinophils # 0.6 0.0 - 0.5 04/05/2017 [facility] CHEM PANEL eGFR 63 03/07/2017 Result Comment: [...] should be multiplied by the estimated BMI. [facility] CHEM PANEL Bili Total 1.1 0.2 - 1.3 03/07/2017 [facility] CHEM PANEL Alk Phos 79 39 - 136 03/07/2017 [facility] CHEM PANEL AST 30 0 - 37 03/07/2017 [facility] CHEM PANEL Albumin Lvl 2.0 3.5 - 5.0 03/07/2017 [facility] CHEM PANEL Total Protein 6.1 6.4 - 8.4 03/07/2017 [facility] CHEM PANEL Calcium Lvl 8.6 8.5 - 10.5 03/07/2017 [facility] CHEM PANEL CO2 27 24 - 32 03/07/2017 [facility] CHEM PANEL ALT 27 0 - 65 03/07/2017 [facility] CHEM PANEL BUN 13 7 - 22 03/07/2017 [facility] CHEM PANEL Potassium Lvl 4.0 3.5 - 5.1 03/07/2017 [facility] CHEM PANEL Sodium Lvl 134 135 - 145 03/07/2017 [facility] CHEM PANEL Chloride Lvl 100 95 - 109 03/07/2017 [facility] CHEM PANEL Glucose Lvl 193 70 - 99 03/07/2017 [facility] CHEM PANEL Creatinine Lvl 1.21 0.50 - 1.40 03/07/2017 [facility] CHEM PANEL A/G Ratio 0.5 0.7 - 1.6 03/07/2017 [facility] CHEM PANEL Globulin 4.1 2.7 - 4.2 03/07/2017 [facility] CHEM PANEL AGAP 11.0 10.0 - 20.0 03/07/2017 [facility] CHEM PANEL B/C Ratio 11 6 - 25 03/07/2017 [facility] HEMATOLOGY Platelet 376 133 - 450 03/07/2017 [facility] HEMATOLOGY RDW 22.2 11.5 - 14.5 03/07/2017 [facility] HEMATOLOGY MPV 9.1 7.4 - 10.4 03/07/2017 [facility] HEMATOLOGY RBC 3.44 4.70 - 6.10 03/07/2017 [facility] HEMATOLOGY Hgb 10.8 14.0 - 18.0 03/07/2017 [facility] HEMATOLOGY WBC 11.3 3.7 - 10.4 03/07/2017 [facility] HEMATOLOGY MCHC 33.5 32.0 - 36.0 03/07/2017 [facility] HEMATOLOGY Hct 32.3 42.0 - 54.0 03/07/2017 [facility] HEMATOLOGY MCH 31.4 27.0 - 31.0 03/07/2017 [facility] HEMATOLOGY MCV 93.7 80.0 - 94.0 03/07/2017 [facility] HEMATOLOGY Polychrom Moder ate *ABN* (03/07/17 8:45 AM) None Seen 03/07/2017 [facility] HEMATOLOGY Anisocyte 1+ *ABN* (03/07/17 8:45 AM) None Seen 03/07/2017 [facility] HEMATOLOGY Eosinophils 5.4 0.0 - 4.0 03/07/2017 [facility] HEMATOLOGY Segs-Bands # 6.8 1.5 - 8.1 03/07/2017 [facility] HEMATOLOGY Basophils 0.9 0.0 - 1.0 03/07/2017 [facility] HEMATOLOGY Lymphocytes # 1.9 1.0 - 5.5 03/07/2017 [facility] HEMATOLOGY Monocytes # 1.9 0.0 - 0.8 03/07/2017 [facility] HEMATOLOGY Basophils # 0.1 0.0 - 0.2 03/07/2017 [facility] HEMATOLOGY Eosinophils # 0.6 0.0 - 0.5 03/07/2017 [facility] HEMATOLOGY Plt Morph Julia l (03/07/17 8:45 AM) 03/07/2017 [facility] HEMATOLOGY Lymphocytes 16.5 20.0 - 40.0 03/07/2017 [facility] HEMATOLOGY Segs 60.4 45.0 - 75.0 03/07/2017 [facility] HEMATOLOGY Monocytes 16.8 2.0 - 12.0 03/07/2017 [facility] CHEM PANEL Alk Phos 69 39 - 136 03/05/2017 [facility] CHEM PANEL Bili Total 1.0 0.2 - 1.3 03/05/2017 [facility] CHEM PANEL Globulin 3.8 2.7 - 4.2 03/05/2017 [facility] CHEM PANEL Total Protein 6.0 6.4 - 8.4 03/05/2017 [facility] CHEM PANEL AST 28 0 - 37 03/05/2017 [facility] CHEM PANEL A/G Ratio 0.6 0.7 - 1.6 03/05/2017 [facility] CHEM PANEL Albumin Lvl 2.2 3.5 - 5.0 03/05/2017 [facility] CHEM PANEL ALT 30 0 - 65 03/05/2017 [facility] CHEM PANEL eGFR 54 03/05/2017 Result Comment: [...] should be multiplied by the estimated BMI. [facility] CHEM PANEL Creatinine Lvl 1.37 0.50 - 1.40 03/05/2017 [facility] CHEM PANEL Chloride Lvl 99 95 - 109 03/05/2017 [facility] CHEM PANEL Potassium Lvl 4.0 3.5 - 5.1 03/05/2017 [facility] CHEM PANEL Sodium Lvl 132 135 - 145 03/05/2017 [facility] CHEM PANEL B/C Ratio 12 6 - 25 03/05/2017 [facility] CHEM PANEL AGAP 9.0 10.0 - 20.0 03/05/2017 [facility] CHEM PANEL Calcium Lvl 8.2 8.5 - 10.5 03/05/2017 [facility] CHEM PANEL CO2 28 24 - 32 03/05/2017 [facility] CHEM PANEL BUN 16 7 - 22 03/05/2017 [facility] CHEM PANEL Glucose Lvl 223 70 - 99 03/05/2017 [facility] HEMATOLOGY Monocytes # 1.4 0.0 - 0.8 03/05/2017 [facility] HEMATOLOGY Anisocyte 1+ *ABN* (03/05/17 2:37 PM) None Seen 03/05/2017 [facility] HEMATOLOGY Basophils # 0.1 0.0 - 0.2 03/05/2017 [facility] HEMATOLOGY Eosinophils # 0.5 0.0 - 0.5 03/05/2017 [facility] HEMATOLOGY Basophils 0.7 0.0 - 1.0 03/05/2017 [facility] HEMATOLOGY Eosinophils 4.8 0.0 - 4.0 03/05/2017 [facility] HEMATOLOGY Monocytes 12.3 2.0 - 12.0 03/05/2017 [facility] HEMATOLOGY Lymphocytes 18.3 20.0 - 40.0 03/05/2017 [facility] HEMATOLOGY Segs 63.9 45.0 - 75.0 03/05/2017 [facility] HEMATOLOGY Lymphocytes # 2.0 1.0 - 5.5 03/05/2017 [facility] HEMATOLOGY Segs-Bands # 7.1 1.5 - 8.1 03/05/2017 [facility] HEMATOLOGY MPV 9.4 7.4 - 10.4 03/05/2017 [facility] HEMATOLOGY Platelet 326 133 - 450 03/05/2017 [facility] HEMATOLOGY MCHC 33.3 32.0 - 36.0 03/05/2017 [facility] HEMATOLOGY RDW 21.7 11.5 - 14.5 03/05/2017 [facility] HEMATOLOGY MCH 31.0 27.0 - 31.0 03/05/2017 [facility] HEMATOLOGY WBC 11.1 3.7 - 10.4 03/05/2017 [facility] HEMATOLOGY RBC 3.43 4.70 - 6.10 03/05/2017 [facility] HEMATOLOGY Hgb 10.6 14.0 - 18.0 03/05/2017 [facility] HEMATOLOGY Hct 31.9 42.0 - 54.0 03/05/2017 [facility] HEMATOLOGY MCV 93.1 80.0 - 94.0 03/05/2017 [facility] ELECTROLYTES Potassium Lvl 4.5 3.5 - 5.1 03/05/2017 [facility] CHEM PANEL eGFR 62 03/04/2017 Result Comment: [...] should be multiplied by the estimated BMI. [facility] CHEM PANEL Creatinine Lvl 1.23 0.50 - 1.40 03/04/2017 [facility] CHEM PANEL Glucose Lvl 252 70 - 99 03/04/2017 [facility] CHEM PANEL Sodium Lvl 136 135 - 145 03/04/2017 [facility] CHEM PANEL BUN 21 7 - 22 03/04/2017 [facility] CHEM PANEL CO2 30 24 - 32 03/04/2017 [facility] CHEM PANEL Calcium Lvl 8.3 8.5 - 10.5 03/04/2017 [facility] CHEM PANEL Chloride Lvl 101 95 - 109 03/04/2017 [facility] CHEM PANEL AST 29 0 - 37 03/04/2017 [facility] CHEM PANEL Albumin Lvl 2.1 3.5 - 5.0 03/04/2017 [facility] CHEM PANEL Alk Phos 60 39 - 136 03/04/2017 [facility] CHEM PANEL Bili Total 1.3 0.2 - 1.3 03/04/2017 [facility] CHEM PANEL Total Protein 5.8 6.4 - 8.4 03/04/2017 [facility] CHEM PANEL ALT 32 0 - 65 03/04/2017 [facility] CHEM PANEL B/C Ratio 17 6 - 25 03/04/2017 [facility] CHEM PANEL AGAP 8.9 10.0 - 20.0 03/04/2017 [facility] CHEM PANEL Globulin 3.7 2.7 - 4.2 03/04/2017 [facility] CHEM PANEL A/G Ratio 0.6 0.7 - 1.6 03/04/2017 [facility] HEMATOLOGY Lymphocytes 15.8 20.0 - 40.0 03/04/2017 [facility] HEMATOLOGY Segs 62.5 45.0 - 75.0 03/04/2017 [facility] HEMATOLOGY Basophils 0.3 0.0 - 1.0 03/04/2017 [facility] HEMATOLOGY Eosinophils 6.2 0.0 - 4.0 03/04/2017 [facility] HEMATOLOGY Monocytes 15.2 2.0 - 12.0 03/04/2017 [facility] HEMATOLOGY Monocytes # 1.7 0.0 - 0.8 03/04/2017 [facility] HEMATOLOGY Segs-Bands # 6.9 1.5 - 8.1 03/04/2017 [facility] HEMATOLOGY Lymphocytes # 1.8 1.0 - 5.5 03/04/2017 [facility] HEMATOLOGY Eosinophils # 0.7 0.0 - 0.5 03/04/2017 [facility] HEMATOLOGY Anisocyte 1+ *ABN* (03/04/17 10:15 AM) None Seen 03/04/2017 [facility] HEMATOLOGY MPV 9.2 7.4 - 10.4 03/04/2017 [facility] HEMATOLOGY Hgb 10.4 14.0 - 18.0 03/04/2017 [facility] HEMATOLOGY RBC 3.37 4.70 - 6.10 03/04/2017 [facility] HEMATOLOGY WBC 11.1 3.7 - 10.4 03/04/2017 [facility] HEMATOLOGY Platelet 278 133 - 450 03/04/2017 [facility] HEMATOLOGY RDW 21.3 11.5 - 14.5 03/04/2017 [facility] HEMATOLOGY MCHC 33.1 32.0 - 36.0 03/04/2017 [facility] HEMATOLOGY MCH 30.8 27.0 - 31.0 03/04/2017 [facility] HEMATOLOGY MCV 93.1 80.0 - 94.0 03/04/2017 [facility] HEMATOLOGY Hct 31.4 42.0 - 54.0 03/04/2017 [facility] SPECIAL CHEMISTRY Hgb A1C 6.9 <=5.6 % 03/04/2017 [facility] URINE AND STOOL UA Glucose 500mg/dL 03/04/2017 [facility] URINE AND STOOL UA Sq Epi None Seen 03/04/2017 [facility] URINE AND STOOL UA WBC <1 0 - 5 03/04/2017 [facility] URINE AND STOOL UA Blood Negative (03/04/17 2:52 AM) Negative 03/04/2017 [facility] URINE AND STOOL UA Urobilinogen 2.0 0.1 - 1.0 03/04/2017 [facility] URINE AND STOOL UA Nitrite Negative (03/04/17 2:52 AM) Negative 03/04/2017 [facility] URINE AND STOOL UA Leuk Est Negative (03/04/17 2:52 AM) Negative 03/04/2017 [facility] URINE AND STOOL UA Spec Grav 1.009 <=1.030 03/04/2017 [facility] URINE AND STOOL UA pH 7.0 5.0 - 8.0 03/04/2017 [facility] URINE AND STOOL UA Bili Negative *NA* (03/04/17 2:52 AM) Negative 03/04/2017 [facility] URINE AND STOOL UA Protein Negative mg/dL Negative mg/dL 03/04/2017 [facility] URINE AND STOOL UA Ketones Negative mg/dL Negative mg/dL 03/04/2017 [facility] URINE AND STOOL UA Color Yellow *NA* (03/04/17 2:52 AM) Yellow 03/04/2017 [facility] URINE AND STOOL UA Turbidity Clear (03/04/17 2:52 AM) Clear 03/04/2017 [facility] HEMATOLOGY Polychrom Slight 03/03/2017 [facility] HEMATOLOGY Large Plt Moder ate *ABN* (03/03/17 9:17 AM) None Seen 03/03/2017 [facility] HEMATOLOGY Macrocyte 1+ *ABN* (03/03/17 9:17 AM) None Seen 03/03/2017 [facility] HEMATOLOGY Basophils # 0.1 0.0 - 0.2 03/03/2017 [facility] SPECIAL CHEMISTRY Hgb A1C 7.2 <=5.6 % 03/03/2017 [facility] ANEMIA STUDY Folate Lvl 11.0 >=3.0 ng/mL 03/02/2017 [facility] ANEMIA STUDY Vitamin B12 Lvl 464 254 - 1320 03/02/2017 [facility] ANEMIA STUDY UIBC 146 110 - 370 03/02/2017 [facility] ANEMIA STUDY TIBC 187 228 - 428 03/02/2017 [facility] ANEMIA STUDY Iron 41 45 - 160 03/02/2017 [facility] ANEMIA STUDY % Satur Fe 22 12 - 57 03/02/2017 [facility] ANEMIA STUDY Ferritin Lvl 613 22 - 275 03/02/2017 [facility] ANEMIA STUDY RBC Folate 893 280 - 791 03/02/2017 [facility] CHEM PANEL Magnesium Lvl 1.8 1.8 - 2.4 03/02/2017 [facility] CHEM PANEL Phosphorus 2.1 2.5 - 4.5 03/02/2017 [facility] HEMATOLOGY Bands 0.0 0.0 - 11.0 03/02/2017 [facility] HEMATOLOGY Polychrom Slight 03/02/2017 [facility] HEMATOLOGY NRBC 1 03/02/2017 [facility] HEMATOLOGY Plt Morph Julia l (03/02/17 6:19 AM) 03/02/2017 [facility] HEMATOLOGY Myelocytes 2.0 <=0.0 % 03/02/2017 [facility] HEMATOLOGY Atypical Lymphs 0.0 <=0.0 % 03/02/2017 [facility] BLOOD BANK RESULTS Antibody Scrn Negative (03/01/17 3:59 AM) 03/01/2017 [facility] BLOOD BANK RESULTS ABO/Rh B POS 03/01/2017 [facility] CHEM PANEL Magnesium Lvl 1.9 1.8 - 2.4 03/01/2017 [facility] CHEM PANEL Phosphorus 2.6 2.5 - 4.5 03/01/2017 [facility] HEMATOLOGY PT 17.2 12.0 - 14.7 03/01/2017 [facility] HEMATOLOGY INR 1.40 0.85 - 1.17 03/01/2017 [facility] HEMATOLOGY PTT 34.6 22.9 - 35.8 03/01/2017 [facility] PARATHYROID PROFILE Ca Norm WB 1.19 1.05 - 1.25 03/01/2017 [facility] PARATHYROID PROFILE Ca Ion WB 1.20 1.05 - 1.25 03/01/2017 [facility] CHEM PANEL Procalcitonin Lvl 0.24 0.00 - 0.10 02/28/2017 [facility] CHEM PANEL Bili Direct 0.6 0.0 - 0.3 02/28/2017 [facility] CHEM PANEL Phosphorus 2.4 2.5 - 4.5 02/28/2017 [facility] CHEM PANEL Magnesium Lvl 2.0 1.8 - 2.4 02/28/2017 [facility] CHEM PANEL Lactic Acid Lvl 2.2 0.5 - 2.2 02/28/2017 [facility] HEMATOLOGY PT 17.1 12.0 - 14.7 02/28/2017 [facility] HEMATOLOGY D-Dimer 2.42 02/28/2017 [facility] HEMATOLOGY INR 1.39 0.85 - 1.17 02/28/2017 [facility] HEMATOLOGY Thrombin Time 20.7 15.0 - 21.2 02/28/2017 [facility] HEMATOLOGY PTT 33.6 22.9 - 35.8 02/28/2017 [facility] HEMATOLOGY Fibrinogen Lvl 372 230 - 510 02/28/2017 [facility] PARATHYROID PROFILE Ca Norm WB 1.25 1.05 - 1.25 02/28/2017 [facility] PARATHYROID PROFILE Ca Ion WB 1.22 1.05 - 1.25 02/28/2017 [facility] CHEM PANEL Bili Direct 0.2 0.0 - 0.3 02/27/2017 [facility] CHEM PANEL Plasma Hemoglobin <10 0 - 10 02/27/2017 [facility] CHEM PANEL LDH 392 98 - 192 02/27/2017 [facility] CHEM PANEL Lactic Acid Lvl 1.1 0.5 - 2.2 02/27/2017 [facility] HEMATOLOGY Plt Morph Julia l (02/27/17 3:24 AM) 02/27/2017 [facility] HEMATOLOGY Thrombin Time 17.1 15.0 - 21.2 02/27/2017 [facility] HEMATOLOGY PTT 30.8 22.9 - 35.8 02/27/2017 [facility] HEMATOLOGY Fibrinogen Lvl 376 230 - 510 02/27/2017 [facility] HEMATOLOGY D-Dimer 2.28 02/27/2017 [facility] HEMATOLOGY INR 1.36 0.85 - 1.17 02/27/2017 [facility] HEMATOLOGY PT 16.8 12.0 - 14.7 02/27/2017 [facility] PARATHYROID PROFILE Ca Norm WB 1.21 1.05 - 1.25 02/27/2017 [facility] PARATHYROID PROFILE Ca Ion WB 1.23 1.05 - 1.25 02/27/2017 [facility] CHEM PANEL Bili Direct 0.2 0.0 - 0.3 02/26/2017 [facility] CHEM PANEL Plasma Hemoglobin <10 0 - 10 02/26/2017 [facility] CHEM PANEL LDH 333 98 - 192 02/26/2017 [facility] CHEM PANEL Lactic Acid Lvl 1.0 0.5 - 2.2 02/26/2017 [facility] HEMATOLOGY Bands 2.0 0.0 - 11.0 02/26/2017 [facility] HEMATOLOGY Atypical Lymphs 0.0 <=0.0 % 02/26/2017 [facility] HEMATOLOGY D-Dimer 1.29 02/26/2017 [facility] HEMATOLOGY Thrombin Time 17.4 15.0 - 21.2 02/26/2017 [facility] HEMATOLOGY Fibrinogen Lvl 420 230 - 510 02/26/2017 [facility] BLOOD BANK RESULTS Antibody Scrn Negative (02/25/17 2:53 AM) 02/25/2017 [facility] BLOOD BANK RESULTS ABO/Rh B POS 02/25/2017 [facility] CHEM PANEL Bili Indirect 0.6 0.0 - 1.0 02/25/2017 [facility] BLOOD BANK RESULTS RBC product Product available (02/25/17 12:20 AM) 02/25/2017 [facility] BLOOD BANK RESULTS Platelet product Product available (02/25/17 12:20 AM) 02/25/2017 [facility] BLOOD BANK RESULTS FFP product Modification Required (02/25/17 12:20 AM) 02/25/2017 [facility] URINE AND STOOL UA Leuk Est Negative (02/24/17 5:16 PM) Negative 02/24/2017 [facility] URINE AND STOOL UA WBC 2 0 - 5 02/24/2017 [facility] URINE AND STOOL UA RBC 3 0 - 2 02/24/2017 [facility] URINE AND STOOL UA Mucus Few /LPF None Seen /LPF 02/24/2017 [facility] URINE AND STOOL UA Sq Epi None Seen 02/24/2017 [facility] URINE AND STOOL UA Urobilinogen <=1.0 mg/dL 0.1 - 1.0 02/24/2017 [facility] URINE AND STOOL UA Ketones TR 02/24/2017 [facility] URINE AND STOOL UA Nitrite Negative (02/24/17 5:16 PM) Negative 02/24/2017 [facility] URINE AND STOOL UA Glucose 50 mg/dL Negative mg/dL 02/24/2017 [facility] URINE AND STOOL UA Bili Negative *NA* (02/24/17 5:16 PM) Negative 02/24/2017 [facility] URINE AND STOOL UA Blood Negative (02/24/17 5:16 PM) Negative 02/24/2017 [facility] URINE AND STOOL UA Protein 50 mg/dL Negative mg/dL 02/24/2017 [facility] URINE AND STOOL UA Turbidity Clear (02/24/17 5:16 PM) Clear 02/24/2017 [facility] URINE AND STOOL UA Spec Grav 1.017 <=1.030 02/24/2017 [facility] URINE AND STOOL UA Color Yellow *NA* (02/24/17 5:16 PM) Yellow 02/24/2017 [facility] URINE AND STOOL UA pH 8.5 5.0 - 8.0 02/24/2017 [facility] BLOOD BANK RESULTS RBC product Product available (02/24/17 3:46 PM) 02/24/2017 [facility] CHEM PANEL Bili Indirect 0.7 0.0 - 1.0 02/24/2017 [facility] MOLECULAR DIAGNOSTIC Parainfluenza 2 PCR Negative (02/23/17 9:22 PM) Negative 02/24/2017 [facility] MOLECULAR DIAGNOSTIC Parainfluenza 1 PCR Negative (02/23/17 9:22 PM) Negative 02/24/2017 [facility] MOLECULAR DIAGNOSTIC Parainfluenza 3 PCR Negative (02/23/17 9:22 PM) Negative 02/24/2017 [facility] MOLECULAR DIAGNOSTIC Source Parainfl uenza Virus PCR [employer] Swab (02/23/17 9:22 PM) 02/24/2017 [facility] MOLECULAR DIAGNOSTIC Adenovirus PCR Negative (02/23/17 9:22 PM) Negative 02/24/2017 [facility] MOLECULAR DIAGNOSTIC Source Adenovir us PCR [employer] Swab (02/23/17 9:22 PM) 02/24/2017 [facility] MOLECULAR DIAGNOSTIC RSV PCR Negative (02/23/17 9:22 PM) Negative 02/24/2017 [facility] MOLECULAR DIAGNOSTIC Influenza B PCR Negative (02/23/17 9:22 PM) Negative 02/24/2017 [facility] MOLECULAR DIAGNOSTIC Source Respirat ory Panel PCR [employer] Swab (02/23/17 9:22 PM) 02/24/2017 [facility] MOLECULAR DIAGNOSTIC Influenza A PCR Negative (02/23/17 9:22 PM) Negative 02/24/2017 [facility] BLOOD BANK RESULTS FFP product Product available (02/23/17 7:32 PM) 02/24/2017 [facility] BLOOD BANK RESULTS Platelet product Product available (02/23/17 7:32 PM) 02/24/2017 [facility] BLOOD BANK RESULTS FFP product Product available (02/23/17 7:32 PM) 02/24/2017 [facility] BLOOD BANK RESULTS Platelet product Product available (02/23/17 7:32 PM) 02/24/2017 [facility] BLOOD BANK RESULTS RBC product Product available (02/23/17 7:32 PM) 02/24/2017 [facility] HEMATOLOGY LY30 Hep 0.0 0.0 - 7.5 02/23/2017 [facility] HEMATOLOGY TEG Data See N ote (02/23/17 3:15 PM) 02/23/2017 [facility] HEMATOLOGY Coag Index Hep 0.9 -3.0-3.0 - 3.0 02/23/2017 [facility] HEMATOLOGY R-Time Hep 5.7 5.0 - 10.0 02/23/2017 [facility] HEMATOLOGY G-Value Hep 8.9 4.5 - 11.0 02/23/2017 [facility] HEMATOLOGY Max Amp Hep 64.1 50.0 - 70.0 02/23/2017 [facility] HEMATOLOGY Angle Hep 67.5 53.0 - 72.0 02/23/2017 [facility] HEMATOLOGY K-Time Hep 1.6 1.0 - 3.0 02/23/2017 [facility] HEMATOLOGY Macrocyte 1+ *ABN* (02/23/17 3:50 AM) None Seen 02/23/2017 [facility] HEMATOLOGY Plav Effect Plt 160 02/23/2017 [facility] BACTERIAL - SEROLOGY MRSA by PCR Negative (02/22/17 8:26 PM) 02/23/2017 [facility] BLOOD BANK RESULTS Antibody Scrn Negative (02/22/17 8:17 PM) 02/23/2017 [facility] BLOOD BANK RESULTS ABO/Rh B POS 02/23/2017 [facility] HEMATOLOGY Macrocyte 2+ *ABN* (02/22/17 5:21 AM) None Seen 02/22/2017 [facility] CARDIAC ENZYMES BNP 490 <=100 pg/mL 02/20/2017 [facility] HEMATOLOGY Smudge Slight 02/20/2017 [facility] HEMATOLOGY Bands 0.0 0.0 - 11.0 02/20/2017 [facility] HEMATOLOGY Atypical Lymphs 0.0 <=0.0 % 02/20/2017 [facility] HEMATOLOGY Tot Cell Ct 100 02/20/2017 [facility] HEMATOLOGY PTT 55.7 22.9 - 35.8 02/19/2017 [facility] HEMATOLOGY PTT 61.5 22.9 - 35.8 02/19/2017 [facility] HEMATOLOGY INR 1.27 0.85 - 1.17 02/19/2017 [facility] HEMATOLOGY PT 16.0 12.0 - 14.7 02/19/2017 [facility] ELECTROLYTES AGAP 9.5 10.0 - 20.0 02/19/2017 [facility] ELECTROLYTES CO2 32 24 - 32 02/19/2017 [facility] ELECTROLYTES Chloride Lvl 93 95 - 109 02/19/2017 [facility] ELECTROLYTES Calcium Lvl 8.8 8.5 - 10.5 02/19/2017 [facility] ELECTROLYTES eGFR 78 02/19/2017 Result Comment: The [...] be multiplied by the estimated BMI. [facility] ELECTROLYTES Potassium Lvl 3.5 3.5 - 5.1 02/19/2017 [facility] ELECTROLYTES Sodium Lvl 131 135 - 145 02/19/2017 [facility] ELECTROLYTES Creatinine Lvl 1.0 2 0.50 - 1.40 02/19/2017 [facility] ELECTROLYTES BUN 22 7 - 22 02/19/2017 [facility] ELECTROLYTES Glucose Lvl 281 70 - 99 02/19/2017 [facility] HEMATOLOGY MPV 9.4 7.4 - 10.4 02/19/2017 [facility] HEMATOLOGY RBC 4.16 4.70 - 6.10 02/19/2017 [facility] HEMATOLOGY WBC 7.6 3.7 - 10.4 02/19/2017 [facility] HEMATOLOGY Platelet 167 133 - 450 02/19/2017 [facility] HEMATOLOGY RDW 13.0 11.5 - 14.5 02/19/2017 [facility] HEMATOLOGY MCH 36.6 27.0 - 31.0 02/19/2017 [facility] HEMATOLOGY MCHC 35.0 32.0 - 36.0 02/19/2017 [facility] HEMATOLOGY MCV 104.5 80.0 - 94.0 02/19/2017 [facility] HEMATOLOGY Hct 43.5 42.0 - 54.0 02/19/2017 [facility] HEMATOLOGY Hgb 15.2 14.0 - 18.0 02/19/2017 [facility] CHEM PANEL Magnesium Lvl 1.5 1.8 - 2.4 02/19/2017 [facility] HEMATOLOGY PT 15.4 12.0 - 14.7 02/19/2017 [facility] HEMATOLOGY INR 1.21 0.85 - 1.17 02/19/2017 [facility] HEMATOLOGY PTT 46.1 22.9 - 35.8 02/19/2017 [facility] CARDIAC ENZYMES BNP 648 <=100 pg/mL 02/18/2017 [facility] CHEM PANEL eGFR 76 02/18/2017 Result Comment: [...] be multiplied by the estimated BMI. [facility] CHEM PANEL Bili Total 1.2 0.2 - 1.3 02/18/2017 [facility] CHEM PANEL Total Protein 6.7 6.4 - 8.4 02/18/2017 [facility] CHEM PANEL Albumin Lvl 2.9 3.5 - 5.0 02/18/2017 [facility] CHEM PANEL Potassium Lvl 3.7 3.5 - 5.1 02/18/2017 [facility] CHEM PANEL Chloride Lvl 94 95 - 109 02/18/2017 [facility] CHEM PANEL Calcium Lvl 9.4 8.5 - 10.5 02/18/2017 [facility] CHEM PANEL Sodium Lvl 133 135 - 145 02/18/2017 [facility] CHEM PANEL CO2 30 24 - 32 02/18/2017 [facility] CHEM PANEL Creatinine Lvl 1.04 0.50 - 1.40 02/18/2017 [facility] CHEM PANEL Glucose Lvl 196 70 - 99 02/18/2017 [facility] CHEM PANEL BUN 26 7 - 22 02/18/2017 [facility] CHEM PANEL AST 44 0 - 37 02/18/2017 [facility] CHEM PANEL ALT 66 0 - 65 02/18/2017 [facility] CHEM PANEL Alk Phos 53 39 - 136 02/18/2017 [facility] CHEM PANEL B/C Ratio 25 6 - 25 02/18/2017 [facility] CHEM PANEL Globulin 3.8 2.7 - 4.2 02/18/2017 [facility] CHEM PANEL AGAP 12.7 10.0 - 20.0 02/18/2017 [facility] CHEM PANEL A/G Ratio 0.8 0.7 - 1.6 02/18/2017 [facility] HEMATOLOGY Platelet 154 133 - 450 02/18/2017 [facility] HEMATOLOGY MPV 9.2 7.4 - 10.4 02/18/2017 [facility] HEMATOLOGY Hgb 16.3 14.0 - 18.0 02/18/2017 [facility] HEMATOLOGY MCHC 34.8 32.0 - 36.0 02/18/2017 [facility] HEMATOLOGY RDW 13.2 11.5 - 14.5 02/18/2017 [facility] HEMATOLOGY MCV 105.9 80.0 - 94.0 02/18/2017 [facility] HEMATOLOGY MCH 36.9 27.0 - 31.0 02/18/2017 [facility] HEMATOLOGY Hct 46.9 42.0 - 54.0 02/18/2017 [facility] HEMATOLOGY RBC 4.43 4.70 - 6.10 02/18/2017 [facility] HEMATOLOGY WBC 9.6 3.7 - 10.4 02/18/2017 [facility] HEMATOLOGY Lymphocytes # 3.4 1.0 - 5.5 02/18/2017 [facility] HEMATOLOGY Monocytes # 1.6 0.0 - 0.8 02/18/2017 [facility] HEMATOLOGY Basophils # 0.1 0.0 - 0.2 02/18/2017 [facility] HEMATOLOGY Eosinophils # 0.2 0.0 - 0.5 02/18/2017 [facility] HEMATOLOGY Segs 45.0 45.0 - 75.0 02/18/2017 [facility] HEMATOLOGY Segs-Bands # 4.3 1.5 - 8.1 02/18/2017 [facility] HEMATOLOGY Macrocyte 1+ *ABN* (02/18/17 7:25 AM) None Seen 02/18/2017 [facility] HEMATOLOGY Monocytes 17.0 2.0 - 12.0 02/18/2017 [facility] HEMATOLOGY Basophils 0.7 0.0 - 1.0 02/18/2017 [facility] HEMATOLOGY Lymphocytes 35.1 20.0 - 40.0 02/18/2017 [facility] HEMATOLOGY Eosinophils 2.2 0.0 - 4.0 02/18/2017 [facility] HEMATOLOGY MPV 9.2 7.4 - 10.4 02/17/2017 [facility] HEMATOLOGY RDW 13.5 11.5 - 14.5 02/17/2017 [facility] HEMATOLOGY Platelet 181 133 - 450 02/17/2017 [facility] HEMATOLOGY MCH 36.3 27.0 - 31.0 02/17/2017 [facility] HEMATOLOGY MCHC 34.2 32.0 - 36.0 02/17/2017 [facility] HEMATOLOGY WBC 8.0 3.7 - 10.4 02/17/2017 [facility] HEMATOLOGY Hgb 16.4 14.0 - 18.0 02/17/2017 [facility] HEMATOLOGY Hct 47.9 42.0 - 54.0 02/17/2017 [facility] HEMATOLOGY MCV 106.3 80.0 - 94.0 02/17/2017 [facility] HEMATOLOGY RBC 4.50 4.70 - 6.10 02/17/2017 [facility] HEMATOLOGY Lymphocytes 30.1 20.0 - 40.0 02/17/2017 [facility] HEMATOLOGY Segs 53.0 45.0 - 75.0 02/17/2017 [facility] HEMATOLOGY Plt Morph Julia l (02/17/17 5:44 AM) 02/17/2017 [facility] HEMATOLOGY RBC Morph Julia l (02/17/17 5:44 AM) 02/17/2017 [facility] HEMATOLOGY Basophils # 0.1 0.0 - 0.2 02/17/2017 [facility] HEMATOLOGY Monocytes # 1.1 0.0 - 0.8 02/17/2017 [facility] HEMATOLOGY Lymphocytes # 2.4 1.0 - 5.5 02/17/2017 [facility] HEMATOLOGY Eosinophils # 0.2 0.0 - 0.5 02/17/2017 [facility] HEMATOLOGY Segs-Bands # 4.2 1.5 - 8.1 02/17/2017 [facility] HEMATOLOGY Basophils 1.0 0.0 - 1.0 02/17/2017 [facility] HEMATOLOGY Eosinophils 2.1 0.0 - 4.0 02/17/2017 [facility] HEMATOLOGY Monocytes 13.8 2.0 - 12.0 02/17/2017 [facility] HEMATOLOGY Monocytes 12.5 2.0 - 12.0 02/17/2017 [facility] HEMATOLOGY Lymphocytes 18.7 20.0 - 40.0 02/17/2017 [facility] HEMATOLOGY Segs 66.7 45.0 - 75.0 02/17/2017 [facility] HEMATOLOGY Segs-Bands # 5.2 1.5 - 8.1 02/17/2017 [facility] HEMATOLOGY Lymphocytes # 1.5 1.0 - 5.5 02/17/2017 [facility] HEMATOLOGY Eosinophils 1.4 0.0 - 4.0 02/17/2017 [facility] HEMATOLOGY Basophils 0.7 0.0 - 1.0 02/17/2017 [facility] HEMATOLOGY Basophils # 0.1 0.0 - 0.2 02/17/2017 [facility] HEMATOLOGY Eosinophils # 0.1 0.0 - 0.5 02/17/2017 [facility] HEMATOLOGY Monocytes # 1.0 0.0 - 0.8 02/17/2017 [facility] HEMATOLOGY PT 14.1 12.0 - 14.7 02/17/2017 [facility] HEMATOLOGY INR 1.09 0.85 - 1.17 02/17/2017 [facility] CARDIAC ENZYMES BNP 688 <=100 pg/mL 02/16/2017 [facility] CHEM PANEL eGFR 66 02/16/2017 Result Comment: [...] should be multiplied by the estimated BMI. [facility] CHEM PANEL Potassium Lvl 4.3 3.5 - 5.1 02/16/2017 [facility] CHEM PANEL Sodium Lvl 133 135 - 145 02/16/2017 [facility] CHEM PANEL Chloride Lvl 98 95 - 109 02/16/2017 [facility] CHEM PANEL Glucose Lvl 364 70 - 99 02/16/2017 [facility] CHEM PANEL BUN 24 7 - 22 02/16/2017 [facility] CHEM PANEL Creatinine Lvl 1.17 0.50 - 1.40 02/16/2017 [facility] CHEM PANEL Calcium Lvl 9.4 8.5 - 10.5 02/16/2017 [facility] CHEM PANEL CO2 25 24 - 32 02/16/2017 [facility] CHEM PANEL AGAP 14.3 10.0 - 20.0 02/16/2017 [facility] URINE AND STOOL UA Urobilinogen <=1.0 mg/dL 0.1 - 1.0 02/15/2017 [facility] URINE AND STOOL UA Sq Epi None Seen 02/15/2017 [facility] URINE AND STOOL UA Mucus Few /LPF None Seen /LPF 02/15/2017 [facility] URINE AND STOOL UA Sperm Few /HPF None Seen /HPF 02/15/2017 [facility] URINE AND STOOL UA Leuk Est Negative (02/15/17 11:19 AM) Negative 02/15/2017 [facility] URINE AND STOOL UA WBC <1 0 - 5 02/15/2017 [facility] URINE AND STOOL UA RBC 2 0 - 2 02/15/2017 [facility] URINE AND STOOL UA Nitrite Negative (02/15/17 11:19 AM) Negative 02/15/2017 [facility] URINE AND STOOL UA Bili Negative *NA* (02/15/17 11:19 AM) Negative 02/15/2017 [facility] URINE AND STOOL UA Blood Negative (02/15/17 11:19 AM) Negative 02/15/2017 [facility] URINE AND STOOL UA Glucose >=1000 mg/dL Negative mg/dL 02/15/2017 [facility] URINE AND STOOL UA Ketones 40 mg/dL Negative mg/dL 02/15/2017 [facility] URINE AND STOOL UA Spec Grav 1.027 <=1.030 02/15/2017 [facility] URINE AND STOOL UA pH 5.5 5.0 - 8.0 02/15/2017 [facility] URINE AND STOOL UA Protein Negative mg/dL Negative mg/dL 02/15/2017 [facility] URINE AND STOOL UA Color Yellow *NA* (02/15/17 11:19 AM) Yellow 02/15/2017 [facility] URINE AND STOOL UA Turbidity Clear (02/15/17 11:19 AM) Clear 02/15/2017 [facility] CARDIAC ENZYMES Troponin-I 0.02 0.00 - 0.40 02/15/2017 [facility] CARDIAC ENZYMES CK MB 3.7 0.5 - 3.6 02/15/2017 [facility] CARDIAC ENZYMES Total CK 104 12 - 191 02/15/2017 [facility] CARDIAC ENZYMES CK MB Index 3.6 0.0 - 2.5 02/15/2017 [facility] CHEM PANEL Lactic Acid Lvl 1.9 0.5 - 2.2 02/15/2017 [facility] CHEM PANEL A/G Ratio 0.8 0.7 - 1.6 02/15/2017 [facility] CHEM PANEL Total Protein 7.6 6.4 - 8.4 02/15/2017 [facility] CHEM PANEL Albumin Lvl 3.4 3.5 - 5.0 02/15/2017 [facility] CHEM PANEL Alk Phos 71 39 - 136 02/15/2017 [facility] CHEM PANEL Bili Total 1.4 0.2 - 1.3 02/15/2017 [facility] CHEM PANEL B/C Ratio 21 6 - 25 02/15/2017 [facility] CHEM PANEL Globulin 4.2 2.7 - 4.2 02/15/2017 [facility] CHEM PANEL ALT 58 0 - 65 02/15/2017 [facility] CHEM PANEL AST 37 0 - 37 02/15/2017 [facility] Pathology Reports No Data Provided for This [...] abnormality. 2. Mild atrophy and minimal chronic micr ovascular ischemic changes. 3. Benign inferior medial left posterior fossa arachnoid cyst. SL: [id number] 10/16/2017 [facility] Chest 1view DX EXAM: XR CHEST 1 [...] noted. IMPRESSION: No acute cardiopulmonary abnormality. SL: KATHARINE-Bertrand 10/16/2017 [facility] Brain wo contrast CT Clinical Indication: Weakness. [...] control -Adjustment of the mA and/or kV accordin g to patient size -Use of iterative reconstruction ike[employer] ue CT Radiation Dose DLP 807 mGy-cm FINDINGS: [...] chronic microvascular ischemic changes. SL: JANE 10/16/2017 [facility] Brain/Neck CTA Clinical Indica tion: Vertigo. Comparison: CT head 10/16/2017. TECHNIQUE: Sequential [...] control -Adjustment of the mA and/or kV accordin g to patient size -Use of iterative reconstruction [employer] ue CT Radiation Dose DLP 414 mGy-cm FINDINGS: [...] internal carotid or vertebrobasilar circulations. SL: KPATEL-M 10/16/2017 [facility] Tib Fib wo contrast CT Exam: L eft Tib Fib wo contrast CT Clinical indication: I70.213 Atherosclerosis of [place] arteries of extremities with intermittent claudication, bilateral [...] abscess. 2. No acute osseous abnormality. SL: [id number] 04/24/2017 [facility] Tibia fibula series DX Examina tion: Left Tibia fibula series DX Clinical Indication: [...] 1. No acute fracture or subluxation of t he left tibia or fibula is identified. 04/13/2017 [facility] Ext Artery Single Level Bilat US Clinical Indication: - I70.213 Atherosclerosis of [place] arteries of extremities with intermittent claudication, bilateral [...] EXTREMITY: Left ankle-brachial index deferred by the ambulatory technologist due to the presence of superficial venous [...] IMPRESSION: 1. Multiphasic arterial flow in the andrei ateral lower extremities, without evidence of focal stenosis or occlusion. 2. Incidental note of echogenic superfi cial thrombus in the left greater saphenous vein. A copy of the radiologic report was faxed to the ordering physician's office with telephone confirmation at the time of dictation. SL: [id number] 04/13/2017 [facility] Ext Lower Arterial Doppler bilat US Clinical Indication: - I70.213 Atherosclerosis of [place] arteries of extremities with intermittent claudication, bilateral legs; left leg swelling. Comparison: None TECHNIQUE: Bilateral lower extremity arterial Doppler evaluation without pressures was performed with rcok scale, color scale and Doppler waveforms evaluation. FINDINGS: RIGHT LOWER EXTREMITY: Right ankle brachial index 1.4. FLY of greater than 1.3 can be seen with calcified vessels. There are normal triphasic waveforms and peak systolic velocities of the right common femoral artery, superficial femoral artery, popliteal artery, posterior tibial artery, and dorsalis pedis artery. LEFT LOWER EXTREMITY: Left ankle-brachial index deferred by the ambulatory technologist due to the presence of superficial venous [...] IMPRESSION: 1. Multiphasic arterial flow in the andrei ateral lower extremities, without evidence of focal stenosis or occlusion. 2. Incidental note of echogenic superfi cial thrombus in the left greater saphenous vein. A copy of the radiologic report was faxed to the ordering physician's office with telephone confirmation at the time of dictation. SL: [id number] 04/13/2017 [facility] Chest 1view DX EXAM: XR CHEST 1 VIEW DATE: 03/04/2017 9:05 AM [employer] INDICATION: - dyspnea COMPARISON: 03/03/2017 TECHNIQUE: AP chest FINDINGS: Lines, tubes and hardware: None. Lungs and pleura: Patchy bilateral retrocardiac opacities may represent atelectasis, aspiration, or pneumonia. Trace bilateral pleural effusions are present. No definite pneumothorax is seen. Heart and mediastinum: The cardiomediastinal silhouette is stable. Bones: Changes of median sternotomy are noted. IMPRESSION: 1. Patchy bilateral retrocardiac opacit ies, possibly representing atelectasis, aspiration, or pneumonia. 2. Trace bilateral pleural effusions. 03/04/2017 [facility] Chest 1view DX EXAM: XR CHEST 1 VIEW DATE: 03/03/2017 3:00 AM [employer] INDICATION: Shortness of Breath - SOB. FINDINGS: Comparison is made to yesterday. The cardiomediastinal silhouette and postoperative changes are stable. A patchy left retrocardiac opacity could be due to atelectasis and/or pneumonia. There is mild right perihilar subsegmental atelectasis. No pleural effusions are identified. Impression: No significant change. 03/03/2017 [facility] Chest 1view DX EXAM: XR CHEST 1 [...] change. IMPRESSION: 1. Mild improvement in pulmonary inters titial edema. 2. Stable appearance of bilateral retro cardiac opacity and hypoinflated lungs compared to the radiograph of 03/01/2017. 03/02/2017 [facility] Chest 1view DX EXAM: XR CHEST 1 VIEW DATE: 03/01/2017 3:00 AM [employer] INDICATION: Shortness of Breath - SOB COMPARISON: 02/28/2017 TECHNIQUE: AP chest FINDINGS: Lines, tubes and hardware: Interval removal of the right IJ [place]-Oleg catheter seen with its sheath remaining in [...] 1. Interval removal of the right IJ Swa n-Oleg catheter with its sheath remaining in the right IJ. 2. Otherwise, no significant interval c hange compared to the prior study. 03/01/2017 [facility] Chest 1view DX EXAM: XR CHEST 1 VIEW DATE: 02/28/2017 INDICATION: Tube placement/removal/reposition - POST OP . Comparison is made with yesterday FINDINGS: Cardiomediastinal silhouette, postoperative changes and [place]-Oleg catheter are unchanged. Bilateral pleural effusions are [...] clear IMPRESSION: Increasing left retrocardiac opacity. 02/28/2017 [facility] Chest 1view DX EXAM: XR CHEST 1 VIEW DATE: 02/27/2017 at 1245 hours INDICATION: - chest tube removal . Comparison is made with radiograph 9 hours earlier today FINDINGS: The mediastinal drain and a left-sided chest tube have been removed. Cardiomediastinal silhouette, sternotomy wires and [place]-Oleg catheter are unchanged. No pneumothorax is visualized [...] in order to exclude small pneumothoraces.. 02/27/2017 [facility] Chest 1view DX EXAM: XR CHEST 1 [...] change when compared to prior radiograph. 02/27/2017 [facility] Chest 1view DX EXAM: XR CHEST 1 VIEW DATE: 02/26/2017 6:19 PM [employer] INDICATION: - postion of mediastinal chest tube COMPARISON: 02/26/2017 chest radiograph at 1039 hours TECHNIQUE: AP chest FINDINGS: Lines, tubes and hardware: Interval removal of the right-sided chest tube. The [place]wood-Oleg catheter, mediastinal tube, left chest tube, and median sternotomy wires are unchanged. Lungs and pleura: No definite pneumothorax is identified. Mild bibasilar hazy opacities, more prominent on the left. Heart and mediastinum: The cardiomediastinal silhouette is stable. IMPRESSION: 1. Interval removal of a right-sided ch est tube. 2. No radiographically evident pneumoth orax is identified. UT SECTION: Chest 02/26/2017 [facility] Chest 1view DX EXAM: XR CHEST 1 VIEW DATE: 02/26/2017 10:21 AM [employer] INDICATION: - s/p chest tube removal COMPARISON: [...] noted. IMPRESSION: 1. No significant interval change elissa red to the prior study. 02/26/2017 [facility] Chest 1view DX EXAM: XR CHEST 1 VIEW DATE: 02/26/2017 7:56 AM [employer] INDICATION: - pulled chest tube COMPARISON: Semierect [...] mediastinal drains. Remaining findings are unchanged. 02/26/2017 [facility] Chest 1view DX EXAM: XR CHEST 1 VIEW DATE: 02/26/2017 3:00 AM [employer] INDICATION: Tube placement/removal/reposition - POST OP COMPARISON: [...] are noted. IMPRESSION: 1. Mild bibasilar atelectasis. Underlyi ng consolidation cannot be entirely excluded. 2. Postsurgical changes of the chest wi th interval removal of esophageal scope with remaining support lines and tubes grossly stable in position. 02/26/2017 [facility] Abdomen AP DX EXAM: XR ABDOMEN 1 [...] wires. * EKG leads. * Partially visualized [place]wood-Oleg catheter. Other: No other changes. IMPRESSION: 1. Tube positions as above. 02/25/2017 [facility] Chest 2 views DX EXAM: XR CHES T 1 VIEW DATE: 02/25/2017 4:49 PM [employer] INDICATION: protocol closure - protocol closure COMPARISON: 02/25/2017 TECHNIQUE: AP chest FINDINGS/ IMPRESSION: Compared to the prior examination there is redemonstration of life support lines including a [place]-Oleg catheter with tip in the main pulmonary [...] tubes. There is no pneumothorax seen. 02/25/2017 [facility] Chest 1 v for Placement DX [address] one view, 02/25/2017 at 12:18 PM HISTORY: [...] IABP. Otherwise, no significant interval change. 02/25/2017 [facility] Chest 1 v for Placement DX [facility] [facility] one view, 02/25/2017 at 12:13 PM HISTORY: [...] shows it has since been advanced. 02/25/2017 [facility] Chest 1view DX EXAM: XR CHEST 1 VIEW DATE: 02/25/2017 10:06 AM [employer] INDICATION: - preop COMPARISON: 02/24/2017 TECHNIQUE: AP chest FINDINGS: Lines, tubes and hardware: Slight interval retraction of the right IJ [place]-Oleg catheter seen with its tip in the [...] unchanged. IMPRESSION: 1. Interval retraction of the intra-aor tic balloon pump with its tip at the level of the hemidiaphragms. Advancement by 13 cm is recommended. 2. Slight interval retraction of the ri ght IJ Longwood-Oleg catheter with its tip projecting over the right main coronary artery. 3. Mild bibasilar atelectasis. 02/25/2017 [facility] Chest 1view DX EXAM: XR CHEST 1 [...] change when compared to prior radiograph. 02/24/2017 [facility] Chest 1view DX EXAM: XR CHEST 1 VIEW DATE: 02/23/2017 6:24 PM [employer] INDICATION: - Post op COMPARISON: 02/23/2017 at 1725 hours TECHNIQUE: AP chest IMPRESSION: 1. Lines and tubes are stable compared to previous study. 2. Cardiomediastinal silhouette is enla rged, unchanged. 3. Diminished lung volumes bilaterally with bibasilar subsegmental platelike atelectatic changes and prominent lung vasculature. 4. Small amount of left pleural effusio n is noted. 5. Osseous structures are stable. 02/23/2017 [facility] Chest 2 views DX EXAM: XR CHES T 2 views DATE: 02/23/2017 5:20 PM [employer] INDICATION: INCORRECT INSTRUMENT COUNT/TOO MANY INSTRUMENTS/EXTRA SCISSORS AND CHEST TUBE PASSER - INCORRECT INSTRUMENT COUNT/TOO MANY INSTRUMENTS/EXTRA SCISSORS AND CHEST TUBE PASSER COMPARISON: 02/22/2017 TECHNIQUE: AP and Lateral chest radiographs IMPRESSION: 1. Post sternotomy surgical changes wit h interval placement of endotracheal tube with the tip terminates 4.3 cm above the charo. Interval placement of right IJV Longwood-Oleg catheter with tip projects over the main pulmonary artery. Interval placement of 2 mediastinal drain NG tube. Interval placement of left thoracostomy tube. Interval placement of intra-aortic balloon pump. Epicardial pacing wires are seen in the field. 2. Cardiomediastinal silhouette is enla rged, unchanged. 3. Diminished lung volumes bilaterally with bibasilar subsegmental platelike atelectatic changes and prominent lung vasculature. 4. Small amount of left pleural effusio n is noted. 02/23/2017 [facility] Chest 1view DX EXAM: XR CHEST 1 VIEW DATE: 02/22/2017 1:31 PM [employer] INDICATION: - cough. FINDINGS: Comparison is made to February 20. The cardiomediastinal silhouette has not significantly changed. The cardiac silhouette is prominent, and the aorta is ectatic and tortuous. Small bilateral pleural effusions have decreased. Bibasilar airspace opacities have improved. The upper lungs are clear. IMPRESSION: 1. Bilateral lower lobe airspace opaciti es have improved since February 20. This can indicate improvement of atelectasis, aspiration and/or pneumonia. 2. Small bilateral pleural effusions hav e decreased. 02/22/2017 [facility] Cardiac Function Complete MRI EXAM: MR HEART WITHOUT AND WITH CONTRAST DATE: 02/20/2017 1:58 PM [employer] INDICATION: NSTEMI, Coronary artery disease. ADDITIONAL INFORMATION: 3 vessel CAD. COMPARISON: None. TECHNIQUE: Multiplanar, multisequence MR images of the heart were obtained before and after administration of intravenous contrast. The study was transferred to work station where analysis of cardiac function was performed. IV contrast: 20 mL MultiHance Heart rate = 70 BPM. FINDINGS: Cardiac chambers: Normal. Myocardium: Thickness: [...] Dilated ascending aorta. 4. Moderate bilateral pleural effusions . Reference: RI. 2002;17(3):323-9. Normal human left and right ventricular dimensions for MRI as assessed by turbo gradient echo and steady-state free precession imaging sequences. Alex Broussard, et. al. 02/21/2017 [facility] Chest 1view DX EXAM: XR CHEST 1 VIEW DATE: 02/20/2017 6:19 AM [employer] INDICATION: Heart failure - CAP COMPARISON: 02/18/2017 TECHNIQUE: AP chest IMPRESSION: 1. Cardiomediastinal silhouette is uppe r limit of normal size. 2. Bilateral [id number] pleural effusions with bibasilar subsegmental atelectatic changes. 3. Osseous structures are stable. 02/20/2017 [facility] Chest 2 views DX Patient Name: ANKUR WISE : 1955; Age: 61 years y/o Male MR: [id number] Study: CHEST 2 VIEWS DX 02/18/2017 1:04 PM [employer] Ordering Physician: Perry Read MD Clinical Indication: [...] since 02/15/2017. Upper lungs are clear. SL: [id number] 02/18/2017 [facility] Carotid artery Doppler bilat US Clinical Indication: [...] low, or Variable undetectable SL: [id number] 02/18/2017 [facility] Chest 1view DX Clinical Indica tion: chest pain Comparison: None FINDINGS: The frontal chest radiograph shows normal lung volumes with small bilateral pleural effusions and hazy opacity within the left lung base. The cardiomediastinal contours are normal for the age of the patient with aortic tortuosity. There are degenerative changes in the spine and shoulders. IMPRESSION: Left lower lobe pneumonia and small bilateral pleural effusions. SL: [id number] 02/15/2017 [facility] Consultation Notes No Data Provided for This Section Discharge Summaries No Data Provided for This Section History and Physicals No Data Provided for This Section Vital Signs Vital Sign Value Date Comments Source Respitory Rate 15 10/17/2017 [facility] Systolic (mm Hg) 124 10/17/2017 [facility] Diastolic (mm Hg) 86 10/17/2017 [facility] Heart Rate 102 10/17/2017 [facility] Temperature Oral (F) 97.7 F 10/17/2017 [facility] Systolic (mm Hg) 125 10/17/2017 [facility] Diastolic (mm Hg) 79 10/17/2017 [facility] Heart Rate 92 10/17/2017 [facility] Respitory Rate 15 10/17/2017 [facility] Temperature Oral (F) 99 F 10/17/2017 [facility] Temperature Oral (F) 98.7 F 10/17/2017 [facility] Heart Rate 91 10/17/2017 [facility] Respitory Rate 18 10/17/2017 [facility] Systolic (mm Hg) 127 10/17/2017 [facility] Diastolic (mm Hg) 79 10/17/2017 [facility] Weight 100.909 10/16/2017 [facility] Height 193.04 cm 10/16/2017 [facility] BMI Calculated 27.08 10/16/2017 [facility] Weight 113.636 10/16/2017 [facility] BMI Calculated 33.05 10/16/2017 [facility] Height 185.42 cm 10/16/2017 [facility] BMI Calculated 30.98 08/31/2017 [facility] Weight 115.455 08/31/2017 [facility] Height 193.04 cm 08/31/2017 [facility] Height 193.04 cm 08/19/2017 [facility] Weight 100 08/19/2017 [facility] BMI Calculated 26.84 08/19/2017 [facility] Respitory Rate 18 08/19/2017 [facility] Heart Rate 94 08/19/2017 [facility] Systolic (mm Hg) 82 08/19/2017 [facility] Diastolic (mm Hg) 60 08/19/2017 [facility] BMI Calculated 26.47 06/03/2017 [facility] Height 193.04 cm 06/03/2017 [facility] Weight 98.636 06/03/2017 [facility] Systolic (mm Hg) 131 06/03/2017 [facility] Diastolic (mm Hg) 84 06/03/2017 [facility] Heart Rate 89 06/03/2017 [facility] Respitory Rate 18 06/03/2017 [facility] Height 193.04 cm 06/03/2017 [facility] BMI Calculated 26.47 06/03/2017 [facility] Weight 98.636 06/03/2017 [facility] Weight 99.545 05/20/2017 [facility] BMI Calculated 26.71 05/20/2017 [facility] Height 193.04 cm 05/20/2017 [facility] Systolic (mm Hg) 140 05/20/2017 [facility] Diastolic (mm Hg) 88 05/20/2017 [facility] Respitory Rate 18 05/20/2017 [facility] Heart Rate 72 05/20/2017 [facility] BMI Calculated 25.86 04/13/2017 [facility] Systolic (mm Hg) 108 04/13/2017 [facility] Diastolic (mm Hg) 70 04/13/2017 [facility] Heart Rate 84 04/13/2017 [facility] Temperature Oral (F) 96.4 F 04/13/2017 [facility] Respitory Rate 18 04/13/2017 [facility] Weight 96.364 04/13/2017 [facility] Height 193.04 cm 04/13/2017 [facility] Height 193.04 cm 04/05/2017 [facility] Heart Rate 80 04/05/2017 [facility] Temperature Oral (F) 96.8 F 04/05/2017 [facility] Respitory Rate 20 04/05/2017 [facility] Systolic (mm Hg) 158 04/05/2017 [facility] Diastolic (mm Hg) 90 04/05/2017 [facility] Temperature Oral (F) 97.0 F 03/17/2017 [facility] Heart Rate 101 03/17/2017 [facility] Systolic (mm Hg) 126 03/17/2017 [facility] Diastolic (mm Hg) 80 03/17/2017 [facility] BMI Calculated 25.49 03/17/2017 [facility] Weight 95 0 03/17/2017 [facility] Height 193.04 cm 03/17/2017 [facility] Temperature Oral (F) 97.0 F 03/17/2017 [facility] Systolic (mm Hg) 126 03/17/2017 [facility] Diastolic (mm Hg) 80 03/17/2017 [facility] Respitory Rate 20 03/17/2017 [facility] Heart Rate 101 03/17/2017 [facility] Systolic (mm Hg) 134 03/07/2017 [facility] Diastolic (mm Hg) 89 03/07/2017 [facility] Respitory Rate 18 03/07/2017 [facility] Respitory Rate 19 03/07/2017 [facility] Systolic (mm Hg) 137 03/07/2017 [facility] Diastolic (mm Hg) 76 03/07/2017 [facility] Systolic (mm Hg) 114 03/07/2017 [facility] Diastolic (mm Hg) 72 03/07/2017 [facility] Temperature Oral (F) 98 F 03/07/2017 [facility] Respitory Rate 17 03/07/2017 [facility] Temperature Oral (F) 97.6 F 03/07/2017 [facility] Temperature Oral (F) 96.8 F 03/07/2017 [facility] Height 193.04 cm 02/26/2017 [facility] Height 193.04 cm 02/26/2017 [facility] Height 193.04 cm 02/26/2017 [facility] Heart Rate 73 02/23/2017 [facility] Heart Rate 66 02/23/2017 [facility] Heart Rate 73 02/23/2017 [facility] Weight 100.909 02/20/2017 [facility] BMI Calculated 27.08 02/20/2017 [facility] Temperature Oral (F) 98 F 02/20/2017 [facility] Heart Rate 73 02/20/2017 [facility] Systolic (mm Hg) 101 02/20/2017 [facility] Diastolic (mm Hg) 66 02/20/2017 [facility] Respitory Rate 18 02/20/2017 [facility] Systolic (mm Hg) 101 02/20/2017 [facility] Diastolic (mm Hg) 67 02/20/2017 [facility] Respitory Rate 18 02/20/2017 [facility] Temperature Oral (F) 97.7 F 02/20/2017 [facility] Heart Rate 75 02/20/2017 [facility] Heart Rate 77 02/19/2017 [facility] Respitory Rate 18 02/19/2017 [facility] Systolic (mm Hg) 101 02/19/2017 [facility] Diastolic (mm Hg) 67 02/19/2017 [facility] Temperature Oral (F) 97.6 F 02/19/2017 [facility] Weight 102.5 02/19/2017 [facility] Height 193.04 cm 02/16/2017 [facility] BMI Calculated 29.76 02/16/2017 [facility] Weight 110.909 02/16/2017 [facility] Weight 97.727 02/15/2017 [facility] Height 193.04 cm 02/15/2017 [facility] BMI Calculated 26.23 02/15/2017 [facility] Encounters Location Location Details Encounter Type Encounter Number Reason For Visit Attending Provider ADM Date DC Date Status Source [facility] Inpatient [id number] Perry Read 02/15/2017 02/19/2017 [facility] Inpatient [id number] Adam Roseanne 02/20/2017 03/07/2017 [facility] Outpatient [id number] Mauricio Puentes 03/17/2017 03/18/2017 [facility] Outpatient [id number] Nicky Marte 03/25/2017 03/25/2017 [facility] Outpatient [id number] Adam Roseanne 04/05/2017 04/06/2017 [facility] Outpatient [id number] Adam Roseanne 04/05/2017 04/06/2017 [facility] [id number] 00 Adam Roseanne 04/13/2017 04/14/[address] [facility] Outpatient [id number] Contreras Baires 04/13/2017 04/14/2017 [facility] [place] [facility] [id number] Adam Roseanne 04/16/2017 04/16/2017 [facility] [place] [facility] Outpt Diag Services [id number] Adam Roseanne 04/24/2017 04/25/2017 [facility] Outpatient [id number] Adam Roseanne 05/20/2017 05/21/2017 [facility] Outpatient [id number] Adam Roseanne 06/03/2017 06/04/2017 [facility] Outpatient [id number] Adam Roseanne 06/03/2017 06/04/2017 [facility] Outpatient [id number] Adam Roseanne 08/19/2017 08/20/2017 [facility] Outpatient [id number] Adam Roseanne 08/31/2017 09/01/2017 [facility] Observation [id number] Alfonzo Stanisic 10/16/2017 10/17/2017 [facility] Outpatient [id number] Adam Roseanne 11/08/2017 11/08/2017 [facility] Outpatient [id number] Justo Margaretbib 11/08/2018 11/09/2018 [facility] Procedures Procedure Code Date Perfomer Comments Source CABG x 5 - Coronary artery bypass grafts x 5 [id number] 02/23/2017 [facility] [place] Biliary lithotripsy [id number] [facility] Partial resection of colon [id number] [facility] [place],[facility] PCL - Percutaneous lithotripsy of renal calculus [id number] [facility] [place] Placement of stent in cardiac conduit [id number] [facility] [place] Assessment and Plan Assessment and Plan Date [...] 17 07:38) Resp Rate 15 BRMIN (OCT 17:38) SBP 125 mmHg (OCT 17 07:38) DBP 79 mmHg (OCT 17 07:38) SpO2 97 % (OCT 17:38) Imaging Studies (last 36 hours) Brain wo contrast MRI 10/16/2017 12:32 Impression: 1. No acute intracranial abnormality. 2. Mild atrophy and minimal chronic micr ovascular ischemic changes. 3. Benign inferior medial left [...] PMH significant for hypertension, type 2 diabetes [id number]-tnvppevii, CAD status post CABG earlier this year, systolic CHF with EF of 35%, history of CVA in 2008 the presents with disbalance and slurred speech, admitted on 10/15/2017 ". - CT head --> Mary cute changes. - CTA Brain --> Atherosclerotic calcific ations of the aortic arch, carotid bulbs and cavernous segments of the internal carotid arteries. No significant stenosis of the internal carotid arteries by NASCET criteria. 2 D ECHO: 1) The LV ejection fraction is estimated at 45%-50%. This has significantly improved from his LVEF in 02/2017 and 05/2017 post CABG. 2) The left ventricular chamber size is normal. 3) Abnormal left ventricular diastolic f unction is observed. 4) Abnormal left ventricular diastolic f illing is observed, consistent with impaired LV relaxation. [...] Plavix 75mg Po QD and Aspirin 81mg P o QD. --> 2 D ECHO noted. --> Follow up neurology, cleared for dis charge and follow up with neuorlogy as out pt. - Syncope, resolved. - Orthostaic hypotension, improved. --> Follwo up Dr Roseanne garcia ppreciated, will need holetr monitoring as outpt. --> Orthostatic improved, No antihyperte nsive medications as per cardiology, fall risk precautions. --> Stop Carvedilol and Ivabradine. - Acute kidney injury/CKD stage III. --> Cr trends down, follow up with nephjuan c walker as out pt. --> Avoid nephrotoxic medications. - Hyperlipidemia. --> LDL 113, Lipitor 40mg Po QD. - Chronic Systolic CHF.--> Will keep juan e home medications. - Hypo Mag repalaced. - Obsesity with Diabetes Mellitus. --> HB1Ac 7.8, cousnelled about diet and exrcise. - Dispo --> Dischareg home and follow u p Follow up with cardiology. Discharge time close [...] history significant for hypertension, type 2 diabetes bqx-ldjwmhe-oscsyfwen, CAD status post CABG earlier this year, [...] obtain orthostatic vitals, echocardiogram, trend troponins, consultation registered travel nurse Dr. Roseanne Figueroa, as above, PT eval Dehydration due to decreased fluid intake, rehydrate gently given Acute kidney injury on CKD3 rehydrate gently CHF, systolic with EF of less than 35%, not in acute exacerbation Hypertension, permissive hypertension for now, will follow up with neurology recommendations Type 2 diabetes dhj-oaokcoy-nsbrrmjow, check hemoglobin A1c Prophylaxis, SCDs 10/17/2017 [facility] Extracted from:Title: HF Surgery Author: Jeronimo Sanchez [...] Neuro/Psych: - Intubated sedated, keep on fentanyl gt t while intubated CV: -Currently on 1:2 balloon pump, epi of 1 2mcg/min, levophed at 2 mcg/min -Partially open chest, plan to retake to OR later -CT management per HF Resp: - Chest xray pending, post op gas (darion nt had been on portable vent--, vent changes made) - Will continue to wean as tolerated, no plans for extubation overnight given open chest - On PFTs with moderate severe restricti ve lung disease, will continue to monitor for [...] Heme/Onc: - Given several products intraop, heme o n board, recommend: CBC and DIC stat then Q 4. Keep Hb > 8, INR < 1.5, Fibrinogen > 200 and Platelet > 100 - Monitor for bleeding, coagulopathies, send post op labs then AM labs - Transfuse as needed ID: - Recommend check viral panel, patient w as coughing and feeling short of breath prior to arrival, - Monitor for s/s of infection - SCIP abx for now Msk/Skin/Deconditioned: - Cont wound care and sacral decubitus p revention - Consult PT/OT when ready Prophylaxis: - DVT ppx: SCD/TEDs - GI ppx: protonix Vascular/ Access: - CVC: logan COLON cath--pressor requirement s, hemodynamic monitoring - Chest tubes: 3 chest tubes - Art-line: right radial for BP monitor ing - Arvizu: strict i/o, immobility Code status: [...] MD Date: 02/20/17 Impression and Plan Mr. Wise is a [...] course Martha Siddiqui Cardiovascular Disease Fellow Pager [phone] Cardiology Attending Attestation: I have seen and examined the patient with Dr. Shin on 02/20/17. I have reviewed all the clinical information, lab investigation and imaging data. I agree with the above findings, assessment and plan. 03/07/2017 [facility] Extracted from:Title: Cardiology Progres s Note Author: Adam Cronin MD Date: 02/19/17 This is a very pleasant 61-year-old male with history of hypertension hyperlipidemia type history of coronary artery disease who presented with worsening left-sided chest pain. Chest pain: Severe 3V CAD Has good targets. Ideally needs CABG. Have discussed with him and he does not want CABG.Being evaluatedbyCTS. Patient has agreed for CABG and wants this at [facility]. Will transfer to [facility] for CABG with [...] by Adam Cronin MD on 02/19/2017 16:30 [employer] Borderline hypotension. Will continue current dose of lasix at 40 mg PO BID 02/19/2017 [facility] Plan of Care No Data Provided for This Section Social History Social History Date Source Social History TypeResponse Alcohol Type Wine. Frequency: 1-2 times per year. Smoking Status Never smoker; Ready to change: No; Concerns about tobacco use in household: No; Exposure to Tobacco Smoke None; Cigarette Smoking Last 365 Days No; Reg Smoking Cessation Counseling No entered on: 10/16/17 02/16/2017 [facility] Social History TypeResponse Alcohol Type Wine. Frequency: 1-2 times per year. Smoking Status Never smoker; Ready to change: No; Concerns about tobacco use in household: No; Exposure to Tobacco Smoke None; Cigarette Smoking Last 365 Days No; Reg Smoking Cessation Counseling No entered on: 10/16/17 02/16/2017 [facility] Social History TypeResponse Alcohol Type Wine. Frequency: 1-2 times per year. Smoking Status Never smoker; Ready to change: No; Concerns about tobacco use in household: No; Exposure to Tobacco Smoke None; Cigarette Smoking Last 365 Days No; Reg Smoking Cessation Counseling No entered on: 06/03/17 02/16/2017 [facility] Social History TypeResponse Alcohol Type Wine. Frequency: 1-2 times per year. Smoking Status Never smoker; Ready to change: No; Concerns about tobacco use in household: No; Exposure to Tobacco Smoke None; Cigarette Smoking Last 365 Days No; Reg Smoking Cessation Counseling No entered on: 10/16/17 02/16/2017 [facility] Social History TypeResponse Alcohol Type Wine. Frequency: 1-2 times per year. Smoking Status Never smoker; Ready to change: No; Concerns about tobacco use in household: No; Exposure to Tobacco Smoke None; Cigarette Smoking Last 365 Days No; Reg Smoking Cessation Counseling No entered on: 10/16/17 02/16/2017 [facility] [place] Family History No Data Provided for This Section Advance Directives No Data Provided for This Section Functional Status No Data Provided for This Section
--- OUTSIDE RECORDS SUMMARY | 2019-12-14 19:35 | XMS REPORT | Continuity of Care Document ---
Author Author [facility] t Organization [facility] Address [address] [place] [address] Phone Unavailable Care Team Providers Care Electrical Sign Servicer Name Role Phone Sebastián SYLVESTER MD PCP CRISTY WINSTON Attphys Unavailable TU PADILLA Attphys Unavailable Shebib, Zaher Attphys DUKE, GINO Attphys Unavailable PATTEN, SOUHEIL Attphys Unavailable Cachorro Cronin Attphys Stanisic, Alfonzo Attphys Teto Bairesian Attphys Gregoric, Franky Parth Attphys Emily Puentes Attphys Latthe, B Perry Attphys CRISTY WINSTON Admphys Unavailable DUKE, GINO Admphys Unavailable PATTEN, SOUHEIL Admphys Unavailable Stanisic, Alfonzo Admphys Gregoric, Franky Parth Admphys Latthe, B Perry Admphys Payers Payer Name Policy Type Policy Number Effective Date Expiration Date Lino zambrano [facility] Medicare Complete [id number] [facility] Problems Condition Name Condition Details Condition Category Status Onset Date Resolution Date Last Treatment Date Treating Clinician Comments Source CELLULITIS CELL ULITIS Active 11/08/2018 [facility] Diagnosis Active 2018-11-08 00:00:00 2018-11-08 12:30:00 Kirstie Valero NSTEMI (non-ST elevated myocardial infarction) NSTEMI (non-ST elevated myocardial infarction) Disease Active 2018-04-20 00:00:00 [facility] Head trauma Head trauma Disease Active 2018-04-06 00:00:00 [facility] FOLLOW UP WITH MONITOR 2 WKS HOSPITAL FOLLOW UP WITH MONITOR 2 WKS Active 10/18/2017 [facility] Diagnosis Active 2017-10-18 00:00:00 2017-12-09 17:19:00 Kirstie Valero CODE STROKE POSS CODE STROKE POSS Active 10/16/2017 [facility] Diagnosis Active 2017-10-16 00:00:00 2017-10-16 02:51:00 Kirstie Valero ATAXIA, RIGHT SIDED WEAKNESS A TAXIA, RIGHT SIDED WEAKNESS Active 10/16/2017 [facility] Diagnosis Active 10-16 00:00:00 2018-04-18 15:30:00 Kirstie eagle 2 WKS FOLLOW UP 2 WK S FOLLOW UP Active 08/19/2017 [facility] Diagnosis Active 2017-08-19 00:00:00 2017-12-08 1 4:13:00 Kirstie Valero I50.9, I10 I50. 9, I10 Active 06/03/2017 [facility] Diagnosis Active 2017-06-03 13:00:00 2017-06-03 13:52:00 Kirstie Valero I50.9 I50. 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 R42 R06.02 I10 R60.9 R42 R06.02 I10 R60.9 Active 04/05/2017 [facility] Diagnosis Active 2017-04-05 00:00:00 2017-08-18 11:11:00 [facility] FOLLOW UP 2 WKS FOLL OW UP 2 WKS Active 04/05/2017 [facility] Diagnosis Active 2017-04-05 00:00:00 2017-05-20 1 2:52:[address] [facility] FOLLOW UP HOSP ITAL FOLLOW UP Active 04/02/2017 [facility] Diagnosis Active 2017-04-02 00:00:00 2017-04-13 14:11:00 [facility] FOLLOW UP FOLL OW UP Active 04/01/2017 [facility] Diagnosis Active 2017-04-01 00:00:00 2017-04-05 14:03:00 [facility] 1 WK F/U 1 WK F/U Active 03/18/2017 [facility] Diagnosis Active 2017-03-18 00:00:00 2017-04-25 15:33:[address] [facility] F/U HOSP ITAL F/U Active 03/09/2017 [facility] Diagnosis Active 2017-03-09 00:00:00 2017-03-17 09:47:00 [facility] CORONARY ARTERY DISEASE NAN NARY ARTERY DISEASE Active 02/19/2017 [facility] Diagnosis Active 2017-02-19 00:00:00 2017-03-15 12:57:00 [facility] CP CP Active 02/15/2017 [facility] Diagnosis Active 2017-02-15 00:00:00 2017-02-15 13:48:00 [facility] PNEUMONIA, CHEST PAIN PNEU MONIA, CHEST PAIN Active 02/15/2017 [facility] Diagnosis Active 2017-02-15 00:00:00 2017-02-18 08:31:00 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 05/06/2018 [facility]ID [facility] 2018-05-06 11:21:51 Kirstie Valero Hypertensive heart and chronic kidney di sease with heart failure and stage 1 through stage 4 chronic kidney disease, or unspecified chronic kidney disease Hypertensive heart and chronic kidney disease with heart failure and stage 1 through stage 4 chronic kidney disease, or unspecified chronic kidney disease 05/06/2018 [facility] 2018-05-06 11:21:51 Kirstie Valero Personal history of transient ischemic a ttack (TIA), and cerebral infarction without residual deficits Personal history of transient ischemic attack (TIA), and cerebral infarction without residual deficits 05/06/2018 [facility] 2018-05-06 11:21:51 Kirstie Valero Chronic systolic (congestive) heart failure Chronic systolic (congestive) heart failure 05/06/2018 [facility] 2018-05-06 11:21:51 Kirstie Valero Hyperlipidemia, unspecified Hy perlipidemia, unspecified 05/06/2018 [facility] 2018-05-06 11:21:51 Kirstie Valero Chronic kidney disease, stage 3 (moderate) Chronic kidney disease, stage 3 (moderate) 05/06/2018 [facility] 2018-05-06 11:21:51 Kirstie Valero Type 2 diabetes mellitus with diabetic chronic kidney disease Type 2 diabetes mellitus with diabetic chronic kidney disease 05/06/2018 [facility] 2018-05-06 11:21:51 Kirstie Valero Obesity, unspecified Obes ity, unspecified 05/06/2018 [facility] 2018-05-06 11:21:51 Kirstie Valero Ataxia, unspecified Atax ia, unspecified 05/06/2018 [facility] 2018-05-06 11:21:51 Kirstie Valero Atherosclerosis of aorta Athe rosclerosis of aorta 05/06/2018 [facility] 2018-05-06 11:21:5 1 Kirstie Valero Degenerative disease of nervous system, unspecified Degenerative disease of nervous system, unspecified 05/06/2018 [facility] 2018-05-06 11:21:51 Kirstie Valero Cerebral cysts Cere bral cysts 05/06/2018 [facility] 2018-05-06 11:21:51 Alistair Valero 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 of antithrombotics/antiplatelets 05/06/2018 [facility] 2018-05-06 11:21:51 [facility] [place] 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) use of insulin FDC (current) use of insulin 05/06/2018 [facility] 2018-05-06 11:21:51 [facility] [place] 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) use of aspirin 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) use of aspirin 05/06/2018 [facility] 2018-05-06 11:21:51 Kirstie eagle Pneumonia, unspecified organism Pneumonia, unspecified organism 05/28/2017 [facility] 2017-05-28 15:47:53 Kirstie Valero Acute on chronic diastolic (congestive) heart failure Acute on chronic diastolic (congestive) heart failure 05/28/2017 [facility] 2017-05-28 15:47:53 Alistair Valero Morbid (severe) obesity due to excess calories Morbid (severe) obesity due to excess calories 05/28/2017 [facility] Problem 2017-05-28 15:47:53 [facility] Her eagle Hypomagnesemia Hypo magnesemia 05/28/2017 [facility] Problem 2017-05-28 15:47:53 Alistairkaycee Valero Body mass index (BMI) 29.0-29.9, adult Body mass index (BMI) 29.0-29.9, adult 05/28/2017 [facility] Problem 2017-05-28 15:47:53 Kirstie Valero Acute systolic (congestive) heart failure Acute systolic (congestive) heart failure 06/13/2017 [facility] Problem 2017-06-13 13:05:19 [facility] Cardiogenic shock Card iogenic shock 06/13/2017 [facility] Problem 2017-06-13 13:05:19 Kirstie Valero Respiratory failure, unspecified with hypercapnia Respiratory failure, unspecified with hypercapnia 06/13/2017 [facility] Problem 2017-06-13 13:05:19 Alistair Valero Encephalopathy, unspecified En cephalopathy, unspecified 06/13/2017 [facility] Problem 2017-06-13 13 :05:19 [facility] Ventricular fibrillation Vent ricular fibrillation 06/13/2017 [facility] Problem 2017-06-13 13 :05:19 [facility] Ventricular tachycardia Vent ricular tachycardia 06/13/2017 [facility] Problem 2017-06-13 13:05:19 Kirstie [place] Acute posthemorrhagic anemia A cute posthemorrhagic anemia 06/13/2017 [facility] Problem 2017-06-13 13:05:19 [facility] Acidosis Acid osis 06/13/2017 [facility] Problem 2017-06-13 13:05:19 Kirstie Valero Other specified coagulation defects Other specified coagulation defects 06/13/2017 [facility] Problem 2017-06-13 13:05:19 [facility] Stenosis of vascular prosthetic devices, implants and grafts, 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, implants and grafts, initial encounter 06/13/2017 [facility] Problem 2017-06-13 13:05:19 Kirstie [address] Intraoperative hemorrhage and hematoma o f a circulatory system organ or structure complicating a cardiac bypass Intraoperative hemorrhage and hematoma of a circulatory system organ or structure complicating a cardiac bypass 06/13/2017 [facility] Problem 2017-06-13 13:05:19 [facility] Thrombocytopenia, unspecified Thrombocytopenia, unspecified 06/13/2017 [facility] Problem 2017-06-13 13:05:19 [facility] Ischemic cardiomyopathy Isch emic cardiomyopathy 06/13/2017 [facility] Problem 2017-06-13 13:05:19 Kirstie Valero Presence of coronary angioplasty implant and graft Presence of coronary angioplasty implant and graft 06/13/2017 [facility] Problem 2017-06-13 13:05:1 9 Kirstie Valero FDC (current) use of oral hypoglycemic drugs FDC (current) use of oral hypoglycemic drugs 06/13/2017 [facility] Problem 2017-06-13 13:05:19 Alistair Valero Allergy status to other antibiotic agents status Allergy status to other antibiotic agents status 06/13/2017 [facility] Problem 2017-06-13 13:05:19 Kirstie Valero Surgical operation with implant of artif icial internal device as the cause of abnormal reaction of the patient, or of later complication, without mention of misadventure at the time of the procedure Surgical operation with implant of artificial internal device as the cause of abnormal reaction of the patient, or of later complication, without mention of misadventure at the time of the procedure 06/13/2017 [facility] Problem 2017-06-13 13:05:19 Kirstie Valero Nonrheumatic aortic (valve) stenosis Nonrheumatic aortic (valve) stenosis 06/13/2017 [facility] Problem 2017-06-13 13:05:19 Kirstie Valero Postprocedural hypotension Pos tprocedural hypotension 06/13/2017 [facility] Problem 2017-06-13 13 :05:19 Kirstie Valero Physical restraint status Phys ical restraint status 06/13/2017 [facility] Problem 2017-06-13 13 :05:19 Kirstie Valero Other specified peripheral vascular diseases Other specified peripheral vascular diseases 06/13/2017 [facility] Problem 2017-06-13 13:05:19 Kirstie Valero Restlessness and agitation Res tlessness and agitation 06/13/2017 [facility] Problem 2017-06-13 13 :05:19 Kirstie Valero Surgical operation with anastomosis, byp ass or graft as the cause of abnormal reaction of the patient, or of later complication, without mention of misadventure at the time of the procedure Surgical operation with anastomosis, bypass or graft as the cause of abnormal reaction of the patient, or of later complication, without mention of misadventure at the time of the procedure 06/13/2017 [facility] Problem 2017-06-13 13:05:19 Kirstie Valero Personal history of urinary calculi Personal history of urinary calculi 06/13/2017 [facility] Problem 2017-06-13 13:05:19 Kirstie Valero Encounter for immunization Enc ounter for immunization 06/13/2017 [facility] Problem 2017-06-13 13 :05:19 Kirstie Valero Cellulitis, unspecified Cell ulitis, unspecified 07/21/2017 [facility] [place] Problem 2017-07-21 12:50:5 5 Kirstie Valero Cutaneous abscess of left lower limb Cutaneous abscess of left lower limb 07/21/2017 [facility] [place] Problem 2017-07-21 12:50:55 Kirstie Valero Pain in left leg Pain in left leg 07/21/2017 [facility], [facility] [place] Problem 2017-07-21 12:50:55 Kirstie Valero Pure hypercholesterolemia, unspecified Pure hypercholesterolemia, unspecified 06/23/2017 [facility] Problem 2017-06-23 12:51:40 Kirstie Valero Essential (primary) hypertension Essential (primary) hypertension 07/21/2017 [facility] Problem 2017-07-21 12:41:30 Kirstie Valero Body mass index (BMI) 25.0-25.9, adult Body mass index (BMI) 25.0-25.9, adult 06/23/2017 [facility] Problem 2017-06-23 12:51:40 Kirstie Valero Presence of aortocoronary bypass graft Presence of aortocoronary bypass graft 06/23/2017 [facility] Problem 2017-06-23 12:51:40 Kirstie Valero Localized edema Loca lized edema 07/21/2017 [facility] Problem 2017-07-21 12:41:30 Id princess Valero Dizziness and giddiness Dizz iness and giddiness 07/12/2017 [facility] Problem 2017-07-12 13:59:03 Kirstie Valero Shortness of breath Shor tness of breath 07/12/2017 [facility] Problem 2017-07-12 13:59:03 [facility] Edema, unspecified [place] a, unspecified 07/12/2017 [facility] Problem 2017-07-12 13:59:03 [facility] [address] Other specified postprocedural states Other specified postprocedural states 07/31/2017 [facility] [place] Problem 2017-07-31 11:26:14 Kirstie Valero Left anterior fascicular block Left anterior fascicular block 08/26/2017 [facility] Problem 2017-08 20:19:56 Kirstie Valero Abnormal electrocardiogram [ECG] [EKG] Abnormal electrocardiogram [ECG] [EKG] 08/26/2017 [facility] Problem 2017-08-26 20:19:56 Kirstie eagle Presence of cardiac pacemaker Presence of cardiac pacemaker 08/26/2017 [facility] Problem 2017-08-26 20:19:56 Kirstie Valero Diabetes mellitus (disorder) D iabetes mellitus (disorder) Resolved Problem 11/10/2018 [facility] Problem Resolved 2018-11-10 22:57:31 Sara Valero Hypercholesterolemia (disorder) Hypercholesterolemia (disorder) Resolved Problem 11/10/2018 [facility] [place] Problem Resolved 2018-11-10 22:57:31 Sara Valero Hypertensive disorder, systemic arterial (disorder) Hypertensive disorder, systemic arterial (disorder) Resolved Problem 11/10/2018 [facility] [place], [facility] [place],[facility] Problem Resolved 2018-11-10 22:57:31 Kirstie Valero PNEUMONIA, UNSPECIFIED ORGANISM PNEUMONIA, UNSPECIFIED ORGANISM Active [facility] Diagnosis Active 2017-02-18 08:31:00 Kirstie Valero ATAXIA, UNSPECIFIED ATAX IA, UNSPECIFIED Active [facility] Diagnosis Active 2018-04-18 15:30:00 Kirstie Valero WEAKNESS WEAK NESS Active [facility] Diagnosis Active 2018-04-18 15:30:00 Sara Valero Weakness Weak ness 01/06/2018 05/06/2018 [facility] Problem 2018-01-06 05:15:33 2018-05-06 11:21:51 2018-05-06 11:21 :51 Kirstie Valero Encounter for other administrative examinations Encounter for other administrative examinations 10/19/2017 03/20/2018 [facility] Problem 2017-10-19 03:15:11 2018-03 13:23:22 2018-03-20 13:23:22 Kirstie Valero Hypertensive heart disease with heart failure Hypertensive heart disease with heart failure 05/28/2017 08/26/2017 [facility] Problem 2017 02:55:00 2017-08-26 20:19:56 2017-08-26 20:19:56 Kirstie Valero Atherosclerosis of [place] arteries of ex tremities with intermittent claudication, bilateral legs Atherosclerosis of [place] arteries of extremities with intermittent claudication, bilateral legs 04/30/2017 07/31/2017 [facility] [place] Problem 2017-04-09 3 04:19:19 2017-07-31 11:26:14 2017-07-31 11:26:14 Kirstie eagle Other complications of procedures, not elsewhere class ified, initial encounter Other complications of procedures, not elsewhere classified, initial encounter 04/20/2017 07/21/2017 [facility] Problem 2017-04-20 02:50:58 2017-07-21 12:41:30 2017-07-21 12:41:30 Kirstie Valero Non-ST elevation (NSTEMI) myocardial infarction Non-ST elevation (NSTEMI) myocardial infarction 03/23/2017 06/13/2017 [facility] Problem 2017-03-23 03:55:46 2017-06-13 13:05:19 2017-06-13 13:05:19 Kirstie Valero Atherosclerotic heart disease of [place] coronary artery with unspecified angina pectoris Atherosclerotic heart disease of [place] coronary artery with unspecified angina pectoris 02/26/2017 05/28/2017 [facility] Problem 2017-02-26 04:26:00 2017-05-28 15:47:53 2017-05-28 15:47:53 Kirstie Valero Allergies, Adverse Reactions, Alerts Allergy Name Allergy Type Status Severity Reaction(s) Onset Date Inacti ve Date Treating Clinician Comments Source poison thang extract DA Active SV 2018-11-09 00:00:00 [facility] Shellfish DA Active SV 2010-03-23 00:00:00 [facility] STING (BEE STING) DA Active SV 2010-03-23 00:00:00 [facility] levofloxacin DA Active U 2009-07-18 00:00:00 [facility] Levofloxacin Propensity to adverse reactions to drug Active Other (See Comments) 2009-02-13 00:00:00 Muscle contraction, c ould not walk Vance Mchugh Levaquin Levaquin Active Philip Snowden Family History Family Member Diagnosis Comments Start Date Stop Date Source Natural brother Cancer [facility] Natural father Stroke [facility] Natural mother Diabetes [facility] thodist Social History Social Habit Start Date Stop Date Quantity Comments Source Sex Assigned At Lilia Mchugh Tobacco use and exposure 2018-04-22 00:00:00 2018-04-22 00:00:00 Watson r used Vance Mchugh Alcohol intake 2018-04-22 00:00:00 2018-04-22 00:00:00 Current drinker of alcohol (finding) Vance Mchugh Alcohol Comment 2018-04-06 00:00:00 2018-04-06 00:00:00 1 bottle of rum per week Vance Mchugh Social History 2017-02-16 03:35:55 2017-02-16 03:35:55 Kirstie Valero Smoking Status Start Date Stop Date Source Never smoker Vance copeland Medications Ordered Medication Name Filled Medication Name Start Date Stop Da te Current Medication? Ordering Clinician Indication Dosage Frequency Signature (SIG) Comments Components Source Acetaminophen/Codeine Phosphate (Tylenol # 3*) 1 Ea Ta b, 1 Tab Oral Acetaminophen/Codeine Phosphate (Tylenol # 3*) 1 Ea Tab, 1 Tab Oral 2018-12-09 00:00:00 2019-02-24 00:00:00 No Yonatan Nunes It Project Manager 1 Every 6 Hours as needed for Pain [facility] Amlodipine Besylate (Norvasc) 10 Mg Tab, 10 Mg Oral Am lodipine Besylate (Norvasc) 10 Mg Tab, 10 Mg Oral 2018-12-09 00:00:00 2019-02-24 00:00:00 No Yonatan Nunes It Project Manager 10 Daily [facility] Ondansetron Hcl (Zofran*) 4 Mg Tablet, 4 Mg Oral Ondan setron Hcl (Zofran*) 4 Mg Tablet, 4 Mg Oral 2018-12-09 00:00:00 2019-02-24 00:00:00 No Yonatan villasenor It Project Manager 4 Every 6 Hours as needed for Nausea [facility] omega 5-cgx-eyj-fish oil (FISH OIL) 100-160-1,000 mg capsule 2018-04-23 17:33:25 Yes 1{capsule} QD Take 1 capsule by mouth sebastián Mchugh Insulin Lispro 2017-10-17 15:45:00 No Notes: (Same as: Humalog ) Roll in palms of hands gently; Do not shake `vigorously. "Single Patient Use Only " WASTE: F/P - Black; E - Municipal Trash Bin Stable for 28 days at room temperature. Expires in days from Date Kirstie Valero Dextrose 50% Syringe 2017-10-17 15:45:00 No 12.5 gm, 25 mL, Route: IVP, Drug Form: INJ, Dosing Weight 100.909, kg, PRN, PRN Blood Glucose Results, Start date: 10/17/17 10:45:00 CDT, Duration: 30 day, Stop date: 11/16/17 10:44:00 CDT [facility] Glucagon 2017-10-17 15:45:00 No 1 mg, Route: IM, Drug form: PDR/INJ, PRN, Dosing Weight 100.909, kg, PRN Blood Glucose Results, Start date: 10/17/17 10:45:00 CDT, Duration: 30 day, Stop date: 11/16/17 10:44:00 CDT [facility] potassium phosphate-sodium phosphate 250 mg-45 mg-298 mg ora l tablet 2017-10-17 15:31:00 No Notes: (Same as: K-Phos Neutral, Phospha 250 Neutral) [facility] K-Phos Original 2017-10-17 15:25:00 No 250 mg, Route: PO, Drug form: TAB, ONCE, Dosing Weight 100.909, kg, Start date: 10/17/17 10:25:00 CDT, Stop date: 10/17/17 10:25:00 CDT [facility] MAGNESIUM GLUCONATE 2017-10-17 15:25:00 No Notes: (Same as: [place]) Magnesium gluconate 500mg=27mg elemental magnesium Dose= mg magnesium gluconate(___mg elemental magnesium) [facility] Aspirin 81 MG Enteric Coated Tablet 2017-10-17 14:00:00 No Notes: Do not crush or chew. (Same As: Ecotrin) [facility] Plavix 2017-10-17 14:00:00 No Notes: (Same As: Plavix) [facility] clopidogrel 2017-10-17 14:00:00 No Notes: ( Same As: Plavix) [facility] Vitamin B12 2017-10-17 13:05:00 No Notes: (Same As: Vitamin B12) [facility] pantoprazole 2017-10-17 12:30:00 No Notes: Tablet should not be chewed or crushed. (Same as: Protonix) [facility] atorvastatin 2017-10-17 02:00:00 No Notes: (Same as: Lipitor) [facility] 24 HR Metoprolol Tartrate 25 MG Extended Release Tablet [Top rol] 2017-10-16 14:00:00 No Notes: (Same as: Toprol XL) D o Not Crush [facility] Corlanor 2017-10-16 14:00:00 No Notes: Hold and contact prescriber if HR <50 bpm. (Same as: Corlanor) [place] [place] [facility] Finasteride 2017-10-16 14:00:00 No Notes: (Same as: Proscar) "Do Not Crush" Women of childbearing age should not touch or handle broken tablets Kirstie Valero Acetaminophen 325 MG / Hydrocodone Bitartrate 5 MG Oral Tabl et [Brandt 5/325] 2017-10-16 13:39:00 No Notes: (Same as: Brandt 325/5) Do not exceed 4gm/day of acetaminophen. Kirstie Salinasa nn pantoprazole 2017-10-16 10:14:00 Yes 40 mg, PO, Daily, # 30 tab, 0 Refill(s) Kirstie Valero Metformin hydrochloride 500 MG Oral Tablet 2017-10-16 10:14:00 Yes 500 mg = 1 tab, PO, BID, 0 Refill(s) [facility] salud Valero atorvastatin 40 mg oral tablet 2017-10-16 10:14:00 Yes 40 mg = 1 tab, PO, Bedtime, # 30 tab, 0 Refill(s) Kirstie Valero Furosemide 2017-10-16 10:14:00 No 20 mg, PO , Q12H, 0 Refill(s) Kirstie Valero clopidogrel 2017-10-16 10:14:00 Yes 75 mg, PO, Daily, 0 Refill(s) [facility] Anjum Finasteride 2017-10-16 10:14:00 Yes 5 mg = 1 tab, PO, Daily, # 30 tab, 0 Refill(s) Kirstie Valero NS 500 mL 2017-10-16 10:05:00 No 500 mL, Rate: 75 ml/hr, Infuse over: 6.7 hr, Route: IV, Dosing Weight 100.909 kg, Total Volume: 500, Start date: 10/16/17 5:05:00 CDT, Duration: 1 doses or times, Stop date: 10/16/17 11:46:00 CDT, 2.33, m2 Kirstie Valero NS 1,000 mL 2017-10-16 09:56:00 No 1,000 mL, Rate: 150 ml/hr, Infuse over: 6.7 hr, Route: IV, Dosing Weight 100.909 kg, Total Volume: 1,000, Start date: 10/16/17 4:56:00 CDT, Duration: 1 doses or times, Stop date: 10/16/17 11:37:00 CDT, 2.33, m2 [facility] Acetaminophen 300 MG / Codeine Phosphate 60 MG Oral Tablet [Tylenol with Codeine #4] 2017-10-16 09:54:00 Yes 1 tab, PO, BID, PRN Pain, # 32 tab, 0 Refill(s) [facility] Magnesium Oxide 2017-10-16 09:50:00 No 400 mg, PO, Daily, 0 Refill(s) [facility] Aspirin 2017-10-16 07:00:00 No Notes: Take with food. [facility] Plavix 2017-10-16 07:00:00 No Notes: (Same As: Plavix) [facility] Saline Flush 0.9% 2017-10-16 05:59:00 No Notes: Same as: BD Posiflush Sterile [facility] multivitamin 2017-08-31 20:18:00 Yes Daily [facility] Glucosamine Chondroitin 2017-08-31 20:18:00 Yes PO, Daily [facility] ivabradine 5 MG Oral Tablet [Corlanor] 2017-08-31 20:18:00 No 2.5 mg = 0.5 tab, PO, BID [facility] 24 HR Metoprolol Tartrate 50 MG Extended Release Tablet [Top rol] 2017-06-03 18:28:00 Yes 50 mg = 1 tab, PO, Daily, # 3 0 tab [facility] sacubitril 49 MG / valsartan 51 MG Oral Tablet [Entresto] 2017-06-03 18:28:00 Yes 1 tab, PO, BID, # 56 tab [facility] atorvastatin 40 MG Oral Tablet [Lipitor] 2017-05-20 19:24:00 Yes 40 mg = 1 tab, PO, Bedtime, # 30 tab, 3 Refill(s), [facility] [id number] [facility] Metformin hydrochloride 500 MG Oral Tablet 2017-05-20 19:24:00 Yes 500 mg = 1 tab, PO, BID-Meals, # 60 tab, 1 Refill(s), Pharmacy: [facility] [id number] [facility] 24 HR Metoprolol Tartrate 25 MG Extended Release Tablet [Top rol] 2017-05-20 19:24:00 No 25 mg = 1 tab, PO, Daily, # 30 tab, 3 Refill(s), Pharmacy: [facility] [id number] [facility] sacubitril 24 MG / valsartan 26 MG Oral Tablet [Entresto] 2017-05-20 19:24:00 No 1 tab, PO, BID , # 60 tab, 3 Refill(s), Pharmacy: [facility] [id number] [facility] Furosemide 20 MG Oral Tablet [Lasix] 2017-04-05 21:22:00 Ye s 20 mg = 1 tab, PO, Q12H, # 30 tab, 1 Refill(s), Pharmacy: [facility] [id number] [facility] finasteride 5 mg oral tablet 2017-04-05 21:22:00 Yes 5 mg = 1 tab, PO, Daily, # 30 tab, 1 Refill(s), Pharmacy: [facility] [id number] [facility] tramadol hydrochloride 50 MG Oral Tablet 2017-04-05 21:22:00 No 50 mg = 1 tab, PO, Q6H, PRN Pain, X 30 day, # 60 tab, 1 Refill(s), other [facility] Acetaminophen 300 MG / Codeine Phosphate 30 MG Oral Tablet [Tylenol with Codeine #3] 2017-04-05 21:22:00 No 1 - 2 tab, PO, Q6H, PRN Pain, X 14 day, # 30 tab, 0 Refill(s), other [facility] Amoxicillin 875 MG / Clavulanate 125 MG Oral Tablet [Augment in 875-mg] 2017-04-05 21:22:00 No 875 mg = 1 tab, PO, BID, X 7 day, # 14 tab, 0 Refill(s), Pharmacy: [facility] [id number] [facility] Metformin hydrochloride 500 MG Oral Tablet 2017-03-07 22:04:00 Yes 500 mg = 1 tab, PO, BID-Before Meals, # 30 tab, 1 Refill(s) [facility] Acetaminophen 300 MG / Codeine Phosphate 30 MG Oral Tablet [Tylenol with Codeine #3] 2017-03-07 21:50:00 No See Instructions, 1-2 tab PO Q12hrs for pain, # 30 tab, 0 Refill(s) Kirstie eagle pantoprazole 40 mg oral enteric coated tablet 2017-03-07 21:40:0 0 Yes 40 mg = 1 tab, PO, Before Breakfast, # 30 tab, 2 Refill(s) Kirstie Valero clopidogrel 75 mg oral tablet 2017-03-07 21:40:00 Yes 75 mg = 1 tab, PO, Daily, # 30 tab, 2 Refill(s) Magnus Valero metoprolol tartrate 25 mg oral tablet 2017-03-07 21:40:00 N o 12.5 mg = 0.5 tab, PO, Q12H, # 30 tab, 2 Refill(s) Kirstie Valero Insulin Glargine 100 UNT/ML Injectable Solution 2017-03-07 21:40 :00 No 20 unit, SUB-Q, Before Dinner, # 10 mL, 2 Refill(s) Kirstie Valero Furosemide 20 MG Oral Tablet 2017-03-07 21:40:00 No 20 mg = 1 tab, PO, Daily, # 30 tab, 2 Refill(s) Magnus Valero Morphine 2017-03-07 01:56:00 No Not es: (Same as:MORPhine Sulfate) Kirstei Valero Tramadol 2017-03-06 04:34:00 No Notes: Not to exceed 400mg/day. (Same As: Ultram) Kirstie Valero Insulin Glargine 2017-03-05 22:30:00 No Notes: (Same as: Lantus) Do not hold insulin without contacting prescriber WASTE: F/P - Black; E - Municipal Trash Bin "single patient use only" Kirstie Valero Insulin Lispro 2017-03-04 21:15:00 No Notes: (Same as: Humalog ) Roll in palms of hands gently; Do not shake `vigorously. "Single Patient Use Only " WASTE: F/P - Black; E - Municipal Trash Bin Stable for 28 days at room temperature. Expires in days from Date Kirstie Valero Insulin Glargine 2017-03-03 22:30:00 No Notes: (Same as: Lantus) Do not hold insulin without contacting prescriber WASTE: F/P - Black; E - Municipal Trash Bin "single patient use only" Kirstie Valero Furosemide 20 MG Oral Tablet [Lasix] 2017-03-03 15:52:00 No Notes: (Same as: Lasix) May cause GI upset. Give with food or milk. Kirstie Valero Furosemide 40 MG Oral Tablet [Lasix] 2017-03-03 15:00:00 No Notes: (Same as: Lasix) 10 mg = 1/2 x 20 mg TAB May cause GI upset. Give with food or milk. Kirstie Valero Miralax 2017-03-03 15:00:00 No Notes: Dissolve in 8 oz of water or juice. (Same as: Miralax) Kirstie Lorenzo nn Seroquel 2017-03-03 03:00:00 No Notes: (Mario e as: SEROquel) Kirstie Valero Ferrlecit 2017-03-02 15:45:00 No Notes: (sodium ferric gluconate complex (elemental iron) 62.5 mg/5 ml INJ) "Limited stability. Use immediately after admixture" (Same as: Ferrlecit) MEDICATION WASTE Product Size: 62.5 mg Product Wasted: __0_ mg [facility] Lasix 2017-03-02 15:45:00 No Notes: (Same a s: Lasix) Kirstie Valero clopidogrel 2017-03-02 15:00:00 No Notes: ( Same As: Plavix) Kirstie Valero pantoprazole 2017-03-02 13:30:00 No Notes: Tablet should not be chewed or crushed. (Same as: Protonix) [facility] Insulin Lispro 2017-03-02 05:39:00 No Notes: (Same as: Humalog ) Roll in palms of hands gently; Do not shake `vigorously. "Single Patient Use Only " WASTE: F/P - Black; E - Municipal Trash Bin Stable for 28 days at room temperature. Expires in days from Date Kirstie Valero metoprolol tartrate 2017-03-02 03:00:00 No Notes: (Same as: Lopressor) 12.5 mg=1/2 X 25 mg TAB Alistair rial An[facility] Acetaminophen 325 MG / Hydrocodone Bitartrate 5 MG Oral Tabl et [Brandt 5/325] 2017-03-01 22:08:00 No Notes: (Same as: Brandt 325/5) Do not exceed 4gm/day of acetaminophen. Kirstie Lorenzo nn Seroquel 2017-02-28 23:00:00 No Notes: ([facility] e as: SEROquel) Kirstie Valero Sodium Chloride 0.9% IV 1,000 mL + M.V.I .-12 10 mL Daily + folic acid IV 1 mg Daily + thiamine IV 1 2017-02-28 18:59:00 No 1,000 mL, Rate: 100 ml/hr, Infuse over: 10.1 hr, Route: IV, Dosing Weight 100.909 kg, Total Volume: 1,011.2, Start date: 02/28/17 12:59:00 PROSTHETIC AIDES TEACHER, Duration: 3 day, Stop date: 03/03/17 12:58:00 PROSTHETIC AIDES TEACHER, 2.33, m2 Kirstie Valero Seroquel 2017-02-28 17:57:00 No Notes: ([facility] korina as: SEROquel) Kirstie Valero Lasix 2017-02-27 19:20:00 No Notes: (Same a s: Lasix) Kirstie Valero Seroquel 2017-02-27 16:41:00 No Notes: ([facility] e as: SEROquel) [facility] An[facility] Insulin Glargine 2017-02-27 15:00:00 No Notes: Same as: Lantus) Do not hold insulin without contacting prescriber WASTE: F/P - Black; E - Municipal Trash Bin [facility] Acetaminophen 10 MG/ML Injectable Solution 2017-02-27 09:06:00 No Notes: Infuse over 15 minutes Do not exceed 4gm/day of acetaminophen MEDICATION WASTE Product Size: 1000 mg Product Wasted: ___ mg [facility] Haldol 2017-02-27 04:41:00 No Notes: (Same as: Haldol) [facility] heparin 2017-02-27 04:00:00 No Notes: porci ne heparin [facility] Insulin Glargine 2017-02-27 00:15:00 No Notes: (Same as: Lantus) Do not hold insulin without contacting prescriber WASTE: F/P - Black; E - Municipal Trash Bin "single patient use only" [facility] Insulin Lispro 2017-02-26 23:39:00 No Notes: (Same as: Humalog ) Roll in palms of hands gently; Do not shake `vigorously. "Single Patient Use Only " WASTE: F/P - Black; E - Municipal Trash Bin Stable for 28 days at room temperature. Expires in days from Date [facility] Dextrose 50% Syringe 2017-02-26 23:39:00 No 25 gm, 50 mL, Route: IVP, Drug Form: INJ, Dosing Weight 100.909, kg, PRN, PRN Blood Glucose Results, Start date: 02/26/17 17:39:00 [employer]OSTHETIC AIDES TEACHER, Duration: 30 day, Stop date: 03/28/17 17:38:00 [facility] Glucagon 2017-02-26 23:39:00 No 1 mg, Route: IM, Drug form: PDR/INJ, PRN, Dosing Weight 100.909, kg, PRN Blood Glucose Results, Start date: 02/26/17 17:39:00 PROSTHETIC AIDES TEACHER, Duration: 30 day, Stop date: 03/28/17 17:38:00 [facility] Dexmedetomidine 2017-02-26 22:28:00 No 400 microgram, 4 mL, Rate: Titrate, Start Dose: 0.2 microgram/kg/hr, Titration: 0.1 microgram/kg/hr every 30 min, Goal(s): comfort, Max Dose: 0.5 microgram/kg/hr, Route: IV, Dosing Weight 100.909 kg, Total Volume: 100, Start date: 02/26/17 16:28:00 CS... [facility] Haldol 2017-02-26 21:58:00 No 2 mg, Route: IV, ONCE, Dosing Weight 100.909, kg, Start date: 02/26/17 15:58:00 PROSTHETIC [employer]IDES TEACHER, Stop date: 02/26/17 15:58:00 [facility] Versed 2017-02-26 21:10:00 No 2 mg, Route: IVP, ONCE, Dosing Weight 100.909, kg, Start date: 02/26/17 15:10:00 PROSTHETIC AIDES TEACHER, Stop date: 02/26/17 15:10:00 [facility] Midazolam 2017-02-26 13:55:00 No 2 mg, Route: IVP, ONCE, Dosing Weight 100.909, kg, Start date: 02/26/17 7:55:00 PROSTHETIC AIDES TEACHER, Stop date: 02/26/17 7:55:00 PROSTHETIC AIDES TEACHER [facility] heparin additive 25,000 unit [400 unit/h r] + Premix Diluent Sodium Chloride 0.45% 500 mL 2017-02-26 03:10:00 No Notes: Total Concentration = 50 unit/ ml Total volume = 500 ml Send Med Request 2 hours prior to next bag Kirstie Valero Famotidine 2017-02-26 03:00:00 No Notes: (Same as: Pepcid) Can be dilute in 5-10cc NS IVP: Slow IV push over at least 2 minutes. Kirstie Valero docusate sodium 100 mg oral capsule 2017-02-25 23:00:00 No Notes: (Same as: Colace) (Do Not Crush) Magnus Valero Aspirin 81 MG Chewable Tablet 2017-02-25 19:00:00 No Notes: Take with food. Kirstie Valero Diphenhydramine 2017-02-25 17:34:00 No Notes: (Same as: Benadryl) Kirstie Valero Diphenhydramine 2017-02-25 17:26:00 No Notes: (Same as: Benadryl) Kirstie Valero Famotidine 2017-02-25 17:25:00 No Notes: (Same as: Pepcid) Can be dilute in 5-10cc NS IVP: Slow IV push over at least 2 minutes. Kirstie Valero Versed 2017-02-25 16:54:00 No Notes: (Same as: Versed) MEDICATION WASTE Product Size: 2 mg Product Wasted: ___ mg Kirstie Valero Versed 2017-02-25 16:52:00 No Notes: (Same as: Versed) MEDICATION WASTE Product Size: 2 mg Product Wasted: ___ mg Kirstie Valero Mupirocin 2017-02-25 03:00:00 No 1 appl, Route: NASAL, Q12H, Drug form: OINT, Start date: 02/24/17 21:00:00 [employer]HET[employer]IDES TEACHER, Stop date: 03/01/17 9:00:00 PROSTHETIC AIDES TEACHER, MRSA Decolonization Kirstie Valero Sodium Chloride 0.9% (titrate) 250 mL 2017-02-25 01:20:00 N o 250 mL, Rate: train caller for use with blood product administration, Dosing Weight 100.909, kg, Route: IV, Total Volume: 250, Start Date: 02/24/17 19:20:00 PROSTHETIC AIDES TEACHER, Duration: 30 day, Stop date: 03/26/17 19:19:00 PROSTHETIC AIDES TEACHER, Replace Every: 24 hr [facility] Pepcid 2017-02-24 19:59:00 No Notes: (Same as: Pepcid) Can be dilute in 5-10cc NS IVP: Slow IV push over at least 2 minutes. [facility] Zantac 2017-02-24 19:34:00 No 50 mg, Route: IVPB, ONCE, Dosing Weight 100.909, kg, Start date: 02/24/17 13:34:00 PROSTHETIC AIDES TEACHER, Stop date: 02/24/17 13:34:00 PROSTHETIC AIDES TEACHER [facility] Diphenhydramine 2017-02-24 19:34:00 No Notes: (Same as: Benadryl) [facility] methylPREDNISolone SODium SUCCinate 2017-02-24 18:00:00 No Notes: (Same as:Solu-MEDROL, A-Methapred) [facility] albumin human 5% intravenous solution 2017-02-24 17:21:00 N o Notes: LOT#: Mfg: WASTE: F/P - Red; E -Red (Same as: Albuminar) "blood product derivative" [facility] cefepime 2017-02-24 16:00:00 No Notes: (Same As: Maxipime) MEDICATION WASTE Product Size: 1000 mg Product Wasted: ___ mg [facility] Fluconazole 2017-02-24 16:00:00 No Notes: ( Same as: Diflucan) [facility] pantoprazole 2017-02-24 15:00:00 No Notes: For IV push reconstitute with 10 ml 0.9% sodium chloride and push over 2 minutes. (Same as: Protonix) [facility] Miralax 2017-02-24 15:00:00 No Notes: Dissolve in 8 oz of water or juice. (Same as: Miralax) Kirstie Lorenzo nn Docusate Sodium 100 MG Oral Capsule [Colace] 2017-02-24 15:00:00 No Notes: (Same as: Colace) (Do Not Crush) Kirstie Valero vancomycin 2017-02-24 15:00:00 No 2001 mg: infuse over 2.5 hours For adult patients only: Round to nearest 250 mg per Medical Staff approval MEDICATION WASTE Product Size: 1000 mg Product Wasted: ___ mg [facility] Dexmedetomidine 2017-02-24 14:42:00 No 400 microgram, 4 mL, Rate: Titrate, Start Dose: 0.2 microgram/kg/hr, Titration: 0.1 microgram/kg/hr every 30 min, Goal(s): RASS -1, Max Dose: 1.5 microgram/kg/hr, Route: IV, Dosing Weight 100.909 kg, Total Volume: 100, Start date: 02/24/17 8:42:00 PROSTHETIC AIDES TEACHER... [facility] Benadryl 2017-02-24 14:42:00 No Notes: (Mario e as: Benadryl) [facility] Vasopressin (RESIDENTIAL) 2017-02-24 14:15:00 No Notes: (Same As: Pitressin, Vasostrict) [facility] Cefazolin 2017-02-24 06:00:00 No 2 gm, Route: IVPB, Drug form: INJ, Q8H, Dosing Weight 100.909, kg, Start date: 02/24/17 0:00:00 PROSTHETIC AIDES TEACHER, Duration: 3 doses or times, Stop date: 02/24/17 16:00:00 PROSTHETIC AIDES TEACHER, ABX Indication: Surgical Prophylaxis [facility] ocular lubricant 2017-02-24 06:00:00 No Notes: (Same as: Lacri-Lube, Duratears Naturale, Artificial Tears, and Tears Again ) [facility] sodium bicarbonate 8.4% 2017-02-24 05:29:00 No Notes: (sodium bicarb 8.4% (1 mEq/ml) 50 ml VL) [facility] iván ceFAZolin (SCIP) 2017-02-24 05:00:00 No Not es: (Same as Ancef) [facility] albumin human 25% intravenous solution 2017-02-24 03:08:00 No Notes: Lot #: Mfg: (Same as: Plasbumin-25) "blood product derivative" WASTE: F/P - Red; E -Red MEDICATION WASTE Product Size: 25 gm Product Wasted: _0_ gm Id princess Valero Vancomycin 2017-02-24 03:00:00 No 1,500 mg, Route: IVPB, Drug form: INJ, Q12H, Dosing Weight 100.909, kg, Time Critical Medication, Start date: 02/23/17 21:00:00 PROSTHETIC AIDES TEACHER, Duration: 2 doses or times, Stop date: 02/24/17 9:00:00 PROSTHETIC AIDES TEACHER, ABX Indication: Surgical Prophylaxis Kirstie Valero chlorhexidine gluconate 1.2 MG/ML Mouthwash 2017-02-24 03:00:00 No Notes: (Same As: Peridex) Kirstie Lorenzo nn albumin human 25% intravenous solution 2017-02-24 02:27:00 No 25 gm, Route: IV, ONCE, Dosing Weight 100.909, kg, Start date: 02/23/17 20:27:00 PROSTHETIC AIDES TEACHER, Stop date: 02/23/17 20:27:00 PROSTHETIC AIDES TEACHER Magnus Valero Cefazolin 2017-02-24 02:00:00 No Notes: (Sa ms as Ancef) Kirstie Valero sodium phosphate 2017-02-24 01:17:00 No 30 mmol, Route: IVPB, ONCE, Dosing Weight 100.909, kg, Priority: STAT, Start date: 02/23/17 19:17:00 PROSTHETIC AIDES TEACHER, Stop date: 02/23/17 19:17:00 PROSTHETIC AIDES TEACHER Magnus Valero potassium phosphate 2017-02-24 01:08:00 No Notes: (Same as: K Phosphate.) 1 mMol phoshate has 1.47 mEq potassium Infuse over 4 hours Kirstie Valero Sodium Chloride 0.9% (titrate) 250 mL 2017-02-24 01:04:00 N o 250 mL, Rate: train caller for use with blood product administration, Dosing Weight 100.909, kg, Route: IV, Total Volume: 250, Start Date: 02/23/17 19:04:00 PROSTHETIC AIDES TEACHER, Duration: 30 day, Stop date: 03/25/17 19:03:00 PROSTHETIC AIDES TEACHER, Replace Every: 24 hr [facility] Vancomycin 2017-02-24 01:00:00 No 2001 mg: infuse over 2.5 hours For adult patients only: Round to nearest 250 mg per Medical Staff approval MEDICATION WASTE Product Size: 1000 mg Product Wasted: ___ mg Kirstie Valero Norepinephrine 2017-02-24 00:40:00 No Notes: Not for direct administration - DILUTE. Protect from light. (Same as:Levophed). Administer by either central venous catheter or peripherally-inserted central catheter (PICC) line. [facility] Epinephrine 2017-02-24 00:40:00 No 8 mg, 8 mL, Rate: Titrate for MAP of 60, Start Dose: 2 microgram/min, Titration: For MAP of 60, Goal(s): MAP of 60, Route: IV, Dosing Weight 100.909 kg, Total Volume: 250, Start date: 02/23/17 18:40:00 PROSTHETIC AIDES TEACHER, Duration: 30 day, Stop date: 03/25/17 18:39:... [facility] chlorhexidine gluconate 1.2 MG/ML Mouthwash 2017-02-24 00:27:00 No Notes: (Same As: Peridex) [facility] nn Fentanyl 2017-02-24 00:23:00 No 1,000 microgram, 20 mL, Rate: Titrate, Start Dose: 50 microgram/hr, Titration: 25 microgram/hour every 15 minutes, Goal(s): RASS -2, Max Dose: 300 microgram/hr, Route: IV, Dosing Weight 100.909 kg, Total Volume: 20, Start date: 02/23/17 18:23:00 PROSTHETIC AIDES TEACHER,... [facility] Amicar 2017-02-24 00:21:00 No Notes: (Same as: Amicar) [facility] Fentanyl 2017-02-23 23:44:00 No Notes: Concentration is 20 micrograms/ml [facility] Naloxone 2017-02-23 23:44:00 No Notes: Same as Narcan [facility] Dextrose 50% Syringe 2017-02-23 23:44:00 No 12.5 gm, 25 mL, Route: IVP, Drug Form: INJ, Dosing Weight 100.909, kg, PRN, PRN Blood Glucose Results, Start date: 02/23/17 17:44:00 PROSTHETIC AIDES TEACHER, Duration: 30 day, Stop date: 03/25/17 17:43:00 PROSTHETIC AIDES TEACHER Kirstie Valero Insulin regular 100 unit + 2017-02-23 23:44:00 No Notes: Final Concentration 1unit/1ml WASTE: F/P - Black; E - Municipal Trash Bin Kirstie Valero Zofran 2017-02-23 23:44:00 No Notes: (Same as: Chavo) MEDICATION WASTE Product Size: 4 mg Product Wasted: _0_ mg Kirstie Valero sennosides, RESIDENTIAL 8.6 MG Oral Tablet 2017-02-23 23:44:00 No Notes: (Same as: Senokot) Kirstie Valero Cardene 40 mg in NS 200 mL (Titrate.) IV 40 mg 2017-02-23 23:44: 00 No Notes: Same as: Cardene Concentration: (0.2 mg /1 ml ) Kirstie [place] Acetaminophen 325 MG / Hydrocodone Bitartrate 10 MG Oral Tab let 2017-02-23 23:44:00 No Notes: Do not exceed 4gm/day of acetaminophen. (Same as: Brandt 325/10) [facility] Acetaminophen 2017-02-23 23:44:00 No Notes: Do not exceed 4 gm/day. (Same as: Tylenol) [facility] hydrocortisone (ANES) 2017-02-23 22:30:00 No Route: IV, Drug form: INJ, ONCE, Stop date: 02/23/17 16:30:00 PROSTHETIC AIDES TEACHER Kirstie Valero Stimate (ANES) 4 microgram 2017-02-23 22:13:00 No Route: IV, Drug Form: INJ, Start date: 02/23/17 16:13:00 PROSTHETIC AIDES TEACHER, Stop date: 02/23/17 17:13:00 PROSTHETIC AIDES TEACHER [facility] methylene blue (ANES) 10 mg 2017-02-23 20:42:00 No Route: IV, Drug form: INJ, Start date: 02/23/17 14:42:00 PROSTHETIC AIDES TEACHER, Stop date: 02/23/17 15:42:00 PROSTHETIC AIDES TEACHER [facility] protamine (ANES) 10 mg 2017-02-23 20:42:00 No Route: IV, Drug form: INJ, Start date: 02/23/17 14:42:00 PROSTHETIC AIDES TEACHER, Stop date: 02/23/17 15:42:00 [facility] vasopressin (ANES) 2017-02-23 20:29:00 No Route: IV, Drug form: INJ, ONCE, Stop date: 02/23/17 14:29:00 [facility] calcium gluconate (ANES) 2017-02-23 20:29:00 No Route: IV, Drug form: INJ, ONCE, Stop date: 02/23/17 14:29:00 PROSTHETIC AIDES TEACHER [facility] norepinephrine ([facility] 32 microgram 2017-02-23 20:25:00 No Route: IV, Drug form: INJ, Start date: 02/23/17 14:25:00 PROSTHETIC AIDES TEACHER, Stop date: 02/23/17 15:25:00 [facility] EPINEPHrine (ANES) 2017-02-23 20:24:00 No Route: IV, Drug form: INJ, ONCE, Stop date: 02/23/17 14:24:00 [facility] magnesium sulfate (ANES) 2017-02-23 19:54:00 No Route: IV, Drug form: INJ, ONCE, Stop date: 02/23/17 13:54:00 [facility] Sodium Chloride 0.9% IV (ANES) 500 mL 2017-02-23 19:28:00 N o Route: IV, Total Volume: 500, Start date: 02/23/17 13:28:00 PROSTHETIC AIDES TEACHER, Stop date: 02/23/17 14:28:00 [facility] Sodium Chloride 0.9% IV (ANES) 246 mL + EPINEPHrine (ANES) 4 000 microgram 2017-02-23 19:26:00 No Route: IV, Drug form: INJ, Start date: 02/23/17 13:26:00 PROSTHETIC AIDES TEACHER, Stop date: 02/23/17 14:26:00 [facility] Insulin regular (ANES) 2017-02-23 18:04:00 No Route: IV, Drug form: INJ, ONCE, Stop date: 02/23/17 12:04:00 [facility] niCARdipine (ANES) 2017-02-23 16:39:00 No Route: IV, Drug form: INJ, ONCE, Stop date: 02/23/17 10:39:00 [facility] heparin (ANES) 2017-02-23 16:24:00 No Route: IV, Drug form: INJ, ONCE, Stop date: 02/23/17 10:24:00 PROSTHETIC AIDES TEACHER kanwal Valero norepinephrine (ANES) 2017-02-23 15:34:00 No Route: IV, Drug form: INJ, ONCE, Stop date: 02/23/17 9:34:00 [employer] Kirstie Valero rocuronium (ANES) 2017-02-23 15:09:00 No Route: IV, Drug form: INJ, ONCE, Stop date: 02/23/17 9:09:00 [employer] Id princess Valero propofol (ANES) 2017-02-23 15:09:00 No Route: IV, Drug form: INJ, ONCE, Stop date: 02/23/17 9:09:00 [employer] Id princess Valero lidocaine (ANES) 2017-02-23 15:09:00 No Route: IV, Drug form: INJ, ONCE, Stop date: 02/23/17 9:09:00 [employer] Id princess Valero ceFAZolin (ANES) 2017-02-23 14:58:00 No Route: IV, Drug form: INJ, ONCE, Stop date: 02/23/17 8:58:00 [employer] Id princess Valero metoprolol (ANES) 2017-02-23 14:53:00 No Route: IV, Drug form: INJ, ONCE, Stop date: 02/23/17 8:53:00 [employer]OSTHETIC [employer]IDES TEACHER Id princess Valero fentaNYL (ANES) 2017-02-23 14:53:00 No Route: IV, Drug form: INJ, ONCE, Stop date: 02/23/17 8:53:00 PROSTHETIC AIDES TEACHER Id princess Valero midazolam (ANES) 2017-02-23 14:33:00 No Route: IV, Drug form: SOLN, ONCE, Stop date: 02/23/17 8:33:00 PROSTHETIC AIDES TEACHER Id princess Valero vancomycin (ANES) 1000 mg 2017-02-23 14:30:00 No Route: IV, Drug form: INJ, Start date: 02/23/17 8:30:00 PROSTHETIC AIDES TEACHER, Stop date: 02/23/17 9:30:00 PROSTHETIC AIDES TEACHER Kirstie Valero tranexamic acid (ANES) 100 mg 2017-02-23 14:30:00 No Route: IV, Drug form: INJ, Start date: 02/23/17 8:30:00 PROSTHETIC AIDES TEACHER, Stop date: 02/23/17 9:30:00 PROSTHETIC AIDES TEACHER [facility] Sodium Chloride 0.9% IV (ANES) 1000 mL 2017-02-23 14:26:00 No Route: IV, Total Volume: 1,000, Start date: 02/23/17 8:26:00 PROSTHETIC AIDES TEACHER, Stop date: 02/23/17 9:26:00 PROSTHETIC AIDES TEACHER [facility] Isolyte S PH 7.4 (ANES) 1000 mL 2017-02-23 14:00:00 No Route: IV, Total Volume: 1,000, Start date: 02/23/17 8:00:00 PROSTHETIC AIDES TEACHER, Stop date: 02/23/17 9:00:00 PROSTHETIC AIDES TEACHER [facility] Saline Flush 0.9% 2017-02-23 03:00:00 No Notes: (Same as: BD Posiflush) [facility] Cefazolin 2017-02-23 01:00:00 No Notes: (Same As: Alayna Fitzgerald) MEDICATION WASTE Product Size: 1000 mg Product Wasted: ___ mg [facility] Mupirocin 0.02 MG/MG Topical Ointment 2017-02-23 01:00:00 N o Notes: 1/2 UD to each nostril. (Same As: Bactroban) [facility] Sodium Chloride 0.9% (titrate) 250 mL 2017-02-23 00:08:00 N o 250 mL, Rate: To prime line and flush remaining blood products., Dosing Weight 100.909, kg, Route: IV, Total Volume: 250, Start Date: 02/22/17 18:08:00 [employer]HETIC [employer]IDES TEACHER, Duration: 30 day, Stop date: 03/24/17 18:07:00 PROSTHETIC AIDES TEACHER, Replace Every: 24 hr [facility] Saline Flush 0.9% 2017-02-23 00:08:00 No Notes: (Same as: BD Posiflush) [facility] Metoprolol 2017-02-23 00:08:00 No Notes: (Same as: Lopressor) Push over 2 minutes [facility] Codeine Phosphate 10 MG / Guaifenesin 300 MG Oral Tablet 2017-02-22 19:31:00 No Notes: (Same As: Robitussin AC) [facility] Acetaminophen 325 MG / Hydrocodone Bitartrate 5 MG Oral Tabl et [Brandt 5/325] 2017-02-22 00:00:00 No Notes: (Same as: Brandt 325/5) Do not exceed 4gm/day of acetaminophen. Kirstie Lorenzo nn Acetaminophen 325 MG / Hydrocodone Bitartrate 5 MG Oral Tabl et [Brandt 5/325] 2017-02-21 19:33:00 No Notes: (Same as: Brandt 325/5) Do not exceed 4gm/day of acetaminophen. [facility] Diphenhydramine 2017-02-21 17:41:00 No Notes: (Same as: Benadryl) [facility] atorvastatin 2017-02-21 03:00:00 No Notes: Same as Lipitor [facility] Furosemide 40 MG Oral Tablet 2017-02-20 23:00:00 No Notes: (Same as: Lasix) MEDICATION WASTE Product Size: 40 mg Product Wasted: 0___ mg [facility] Furosemide 40 MG Oral Tablet 2017-02-20 20:00:00 No Notes: (Same as: Lasix) May cause GI upset. Give with food or milk. [facility] Pneumovax 23 2017-02-20 18:30:00 No Notes: (Same as: Pneumovax 23) Refrigerate [facility] insulin glargine 2017-02-20 15:00:00 No Notes: (Same as: Lantus) Do not hold insulin without contacting prescriber WASTE: F/P - Black; E - Municipal Trash Bin "single patient use only" [facility] Saline Flush 0.9% 2017-02-20 15:00:00 No Notes: (Same as: BD Posiflush) [facility] influenza virus vaccine, inactivated 2017-02-20 15:00:00 No Notes: (Same as: Fluzone Quadrivalent, Fluarix Quadrivalent) For 3 years of age and older (0.5 mL IM) Shake well before use [facility] pneumococcal capsular polysaccharide typ e 1 vaccine / pneumococcal capsular polysaccharide type 10A vaccine / pneumococcal capsular polysaccharide type 11A vaccine / pneumococcal capsular polysaccharide type 12F vaccine / pneumococcal capsular polysacchar 2017-02-20 15:00:00 No Notes: (Same as: Pneumovax 23) Refrigerate [facility] sacubitril 24 MG / valsartan 26 MG Oral Tablet [Entresto] 2017-02-20 15:00:00 No Notes: (Same a s: Entresto) Avoid in patients with history of angioedema due to STEPHEN inhibitor or ARB therapy. Do not use concomitantly or within 36 hours of STEPHEN inhibitors Dionbree Snowden metoprolol tartrate 2017-02-20 15:00:00 No Notes: (Same as: Lopressor) Kirstie Valero Insulin Glargine 100 UNT/ML Injectable Solution 2017-02-20 15:00 :00 No Notes: (Same as: Lantus) Do not hold insulin without contacting prescriber WASTE: F/P - Black; E - Municipal Trash Bin "single patient use only" Kirstie Valero Aspirin 81 MG Enteric Coated Tablet 2017-02-20 15:00:00 No Notes: Do not crush or chew. (Same As: Ecotrin) Bertrand Valero Insulin Lispro 2017-02-20 13:30:00 No Notes: (Same as: Humalog ) Roll in palms of hands gently; Do not shake `vigorously. "Single Patient Use Only " WASTE: F/P - Black; E - Municipal Trash Bin Stable for 28 days at room temperature. 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 "Single Patient Use Only " WASTE: F/P - Black; E - Municipal Trash Bin Stable for 28 days at room temperature. Expires in days from Date [facility] Dextrose 50% Syringe 2017-02-20 12:25:00 No 12.5 gm, 25 mL, Route: IVP, Drug Form: INJ, Dosing Weight 100.909, kg, PRN, PRN Blood Glucose Results, Start date: 02/20/17 6:25:00 PROSTHETIC AIDES TEACHER, Duration: 30 day, Stop date: 03/22/17 6:24:00 PROSTHETIC AIDES TEACHER [facility] Glucagon 2017-02-20 12:25:00 No 1 mg, Route: IM, Drug form: PDR/INJ, PRN, Dosing Weight 100.909, kg, PRN Blood Glucose Results, Start date: 02/20/17 6:25:00 PROSTHETIC AIDES TEACHER, Duration: 30 day, Stop date: 03/22/17 6:24:00 PROSTHETIC AIDES TEACHER [facility] Calcium Gluconate 2017-02-20 12:19:00 No Notes: WASTE: F/P - Sink; E - Municipal [facility]ash [facility] Magnesium Sulfate 2017-02-20 12:19:00 No Notes: WASTE: F/P - Sink; E - Municipal [facility] Magnesium Oxide 2017-02-20 12:19:00 No Notes: (Same as: Mag-Ox 400) Magnesium oxide [id number] elemental magnesium Dose=____mg magnesium oxide (___mg elemental magnesium) [facility] Potassium Chloride 2017-02-20 12:19:00 No Notes: (Same as: K-Dur 20) "Do Not Crush" With food and full glass of water [facility] sodium phosphate 2017-02-20 12:19:00 No 30 mmol, 10 mL, Route: IVPB, PRN, Dosing Weight 100.909, kg, PRN Abnormal Lab Result, For NON-ICU Patients Only., Start date: 02/20/17 6:19:00 PROSTHETIC AIDES TEACHER, Duration: 30 day, Stop date: 03/22/17 6:18:00 PROSTHETIC AIDES TEACHER [facility] potassium phosphate 2017-02-20 12:19:00 No Notes: (Same as: K Phosphate.) 1 mMol phoshate has 1.47 mEq potassium Infuse over 4 hours [facility] potassium phosphate-sodium phosphate 250 mg-280 mg-160 mg oral powder for reconstitution 2017-02-20 12:19:00 No Notes: (Same as: Phos-NaK) Each 1.5 gm pkt has 250mg phosphorous. Mix w/2.5oz water and stir. [facility] Saline Flush 0.9% 2017-02-20 12:19:00 No Notes: (Same as: BD Posiflush) [facility] Ondansetron 2017-02-20 12:13:00 No Notes: (Same as: Zofran) MEDICATION WASTE Product Size: 4 mg Product Wasted: ___ mg [facility] Morphine 2017-02-20 12:13:00 No Not es: (Same as:MORPhine Sulfate) [facility] Acetaminophen 325 MG / Hydrocodone Juan trate 7.5 MG Oral Tablet [Brandt 7.5/325] 2017-02-20 12:13:00 No Notes: Same as Brandt 325-7.5mg Do not exceed 4gm/day of acetaminophen. Magnus Valero heparin 1000 units/mL injectable solution 2017-02-20 04:27:00 No 2,900 unit = 2.9 mL, IVP, PRN, PRN Heparin Protocol, 0 Refill(s) [facility] Glucagon 2017-02-20 04:27:00 No 1 mg, IM, PRN, PRN Blood Glucose Results, 0 Refill(s) [facility] Furosemide 40 MG Oral Tablet 2017-02-20 04:27:00 No 40 mg = 1 tab, PO, BID Diuretic, 0 Refill(s) [facility] [place] sacubitril 24 MG / valsartan 26 MG Oral Tablet [Entresto] 2017-02-20 04:27:00 No 1 tab, PO, Q12H, 0 Refill(s) [facility] ondansetron 2 mg/mL injectable solution 2017-02-20 04:27:00 No 4 mg = 2 mL, IVP, Q6H, PRN Nausea, 0 Refill(s) Kirstie [place] Morphine 2017-02-20 04:27:00 No 4 mg = 1 mL, IV, Q4H, PRN Pain Score 6-10, 0 Refill(s) Kirstie Anjum Alprazolam 0.25 MG Oral Tablet [Xanax] 2017-02-20 04:27:00 No 0.25 mg = 1 tab, PO, Q12H, PRN Anxiety, 0 Refill(s) Kirstie Valero atorvastatin 40 mg oral tablet 2017-02-20 04:27:00 No 40 mg = 1 tab, PO, Bedtime, 0 Refill(s) Kirstie Lorenzo nn Aspirin 81 MG Enteric Coated Tablet 2017-02-20 04:27:00 Yes 81 mg = 1 tab, PO, Daily, 0 Refill(s) Kirstie Austin mat metoprolol tartrate 25 mg oral tablet 2017-02-20 04:27:00 N o 12.5 mg = 0.5 tab, PO, Q12H, 0 Refill(s) Philip Snowden insulin lispro 100 units/mL subcutaneous injection 2017-02-08 3 04:27:00 No 10 unit, SUB-Q, TID-Before Meals , PRN Blood Glucose Results, 0 Refill(s) Kirstie Valero Acetaminophen 325 MG / Hydrocodone Juan trate 7.5 MG Oral Tablet [Brandt 7.5/325] 2017-02-20 04:27:00 No 1 tab, PO, Q4H, PRN Pain Score 4-6, 0 Refill(s) Kirstie Valero Insulin Glargine 100 UNT/ML Injectable Solution 2017-02-20 04:27 :00 No 18 unit, SUB-Q, Daily, 0 Refill(s) Kirstie Valero aspirin 81 mg tablet, enteric coated 2017-02-20 04:27:00 Ye s 81 mg = 1 tab, PO, Daily, 0 Refill(s) Kirstie rivero Acetaminophen 325 MG / Hydrocodone Juan trate 7.5 MG Oral Tablet [Brandt 7.5/325] 2017-02-20 00:07:00 No Notes: Same as Brandt 325-7.5mg Do not exceed 4gm/day of acetaminophen. Magnus Valero Potassium Chloride 2017-02-19 22:25:00 No Notes: (Same as: K-Dur 20) "Do Not Crush" With food and full glass of water Kirstie Valero insulin glargine 2017-02-19 16:15:00 No Notes: (Same as: Lantus) Do not hold insulin without contacting prescriber WASTE: F/P - Black; E - Municipal Trash Bin "single patient use only" Kirstie Valero Magnesium Sulfate 2017-02-19 13:09:00 No Notes: WASTE: F/P - Sink; E - Municipal Trash Bin Kirstie Valero Morphine 2017-02-18 19:42:00 No Not es: (Same as:MORPhine Sulfate) Kirstie Valero Levemir 2017-02-18 16:30:00 No 10 unit, Route: SUB-Q, Daily, Dosing Weight 110.909, kg, Start date: 02/18/17 10:30:00 PROSTHETIC AIDES TEACHER, Duration: 30 day, Stop date: 03/20/17 9:00:00 PROSTHETIC AIDES TEACHER Kirstie minor insulin glargine 2017-02-18 16:21:00 No Notes: (Same as: Lantus) Do not hold insulin without contacting prescriber WASTE: F/P - Black; E - Municipal Trash Bin "single patient use only" Kirstie Valero sacubitril 24 MG / valsartan 26 MG Oral Tablet [Entresto] 2017-02-18 15:15:00 No Notes: (Same a s: Entresto) Avoid in patients with history of angioedema due to STEPHEN inhibitor or ARB therapy. Do not use concomitantly or within 36 hours of STEPHEN inhibitors Philip al Anjum Potassium Chloride 1.33 MEQ/ML Oral Solution 2017-02-18 15:03:00 No Notes: (Same as: Potassium Chloride) Dion orial Anjum Alprazolam 0.25 MG Oral Tablet [Xanax] 2017-02-17 23:24:00 No Notes: With food or milk (Same as: Xanax) Alistair rial Anjum Lasix 2017-02-17 02:00:00 No Notes: (Same as: Lasix) May cause GI upset. Give with food or milk. Kirstie Valero Heparin 30 unit/kg Bolus (Heparin Dosing Weight) 2017-02-17 01:1 3:00 No Route: IVP, PRN, 2,900 unit, 2.9 mL, Drug form: INJ, PRN, Heparin Protocol, Start date: 02/16/17 19:13:00 PROSTHETIC AIDES TEACHER Stop date: 03/18/17 19:12:00 PROSTHETIC AIDES TEACHER, 30 day [facility] Heparin 60 unit/kg Bolus (Heparin Dosing Weight) 2017-02-17 01:1 3:00 No Route: IVP, PRN, 5,800 unit, 5.8 mL, Drug form: INJ, PRN, Heparin Protocol, Start date: 02/16/17 19:13:00 PROSTHETIC AIDES TEACHER Stop date: 03/18/17 19:12:00 PROSTHETIC AIDES TEACHER, 30 day [facility] Heparin - one time bolus for ACS 2017-02-17 01:13:00 No 4,000 unit, 4 mL, Route: IVP, Drug form: INJ, ONCE, Dosing Weight 110.909, kg, Priority: STAT, Start date: 02/16/17 19:13:00 PROSTHETIC AIDES TEACHER, Stop date: 02/16/17 19:13:00 PROSTHETIC AIDES TEACHER [facility] heparin additive 25,000 unit [10.371 uni t/kg/hr] + Premix Diluent Dextrose 5% 500 mL 2017-02-17 01:13:00 No 500 mL, Rate: 20 ml/hr, Infuse over: 25 hr, Route: IV, Dosing Weight 96.44 kg, Total Volume: 500 mL, Start date: 02/16/17 19:13:00 PROSTHETIC AIDES TEACHER, Duration: 30 day, Stop date: 03/18/17 19:12:00 PROSTHETIC AIDES TEACHER, 2.28, m2 [facility] Ondansetron 2017-02-16 20:20:00 No Notes: (Same as: Zofran) MEDICATION WASTE Product Size: 4 mg Product Wasted: ___ mg [facility] Azithromycin 2017-02-16 19:00:00 No Notes: (Same As: Zithromax IV) [facility] Rocephin 2017-02-16 19:00:00 No Notes: (Same As: Rocephin). Use with 100 mL NS and infuse over 30 min MEDICATION WASTE Product Size: 1000 mg Product Wasted: ___ mg [facility] Aspirin 2017-02-16 15:00:00 No Notes: Do not crush or chew. (Same As: Ecotrin) [facility] metoprolol tartrate 2017-02-16 03:00:00 No Notes: (Same as: Lopressor) [facility] Lipitor 2017-02-16 03:00:00 No Notes: (Same as: Lipitor) [facility] Anjum Morphine 2017-02-16 00:36:00 No Not es: (Same as:MORPhine Sulfate) Kirstie Valero Sodium Chloride 0.9% (Bolus) IV 2017-02-16 00:00:00 No 250 mL, 250 ml/hr, Infuse Over: 1 hr, Route: IV, 250, Drug form: INJ, ONCALL, Priority: Routine, Dosing Weight 97.727 kg, Start date: 02/15/17 18:00:00 PROSTHETIC AIDES TEACHER, Duration: 1 doses or times [facility] Sodium Chloride 0.9% IV 750 mL 2017-02-15 23:59:00 No 750 mL, Rate: 75 ml/hr, Infuse over: 10 hr, Route: IV, Dosing Weight 97.727 kg, Total Volume: 750, Start date: 02/15/17 17:59:00 PROSTHETIC AIDES TEACHER, Duration: 24 hr, Stop date: 02/16/17 17:58:00 PROSTHETIC AIDES TEACHER, 2.29, m2 [facility] Insulin Lispro 2017-02-15 20:49:00 No Notes: Roll in palms of hands gently; Do not shake `vigorously. (Same as: Humalog ) "Single Patient Use Only " WASTE: F/P - Black; E - Municipal Trash Bin Stable for 28 days at room temperature. Expires in days from Date [facility] Glucagon 2017-02-15 20:49:00 No 1 mg, Route: IM, Drug form: PDR/INJ, PRN, Dosing Weight 97.727, kg, PRN Blood Glucose Results, Start date: 02/15/17 14:49:00 PROSTHETIC AIDES TEACHER, Duration: 30 day, Stop date: 03/17/17 14:48:00 PROSTHETIC AIDES TEACHER [facility] Dextrose 50% Syringe 2017-02-15 20:49:00 No 25 gm, 50 mL, Route: IVP, Drug Form: INJ, Dosing Weight 97.727, kg, PRN, PRN Blood Glucose Results, Start date: 02/15/17 14:49:00 PROSTHETIC AIDES TEACHER, Duration: 30 day, Stop date: 03/17/17 14:48:00 PROSTHETIC AIDES TEACHER [facility] Ceftriaxone 2017-02-15 17:43:00 No Notes: (Same As: Rocephin). Use with 100 mL NS and infuse over 30 min MEDICATION WASTE Product Size: 1000 mg Product Wasted: ___ mg [facility] Azithromycin 2017-02-15 17:43:00 No Notes: (Same As: Zithromax IV) [facility] Ondansetron 2017-02-15 16:58:00 No 4 mg, Route: IVP, Drug form: INJ, ONCE, Dosing Weight 97.727, kg, Priority: STAT, Start date: 02/15/17 10:58:00 PROSTHETIC AIDES TEACHER, Stop date: 02/15/17 10:58:00 PROSTHETIC AIDES TEACHER [facility] 2017-02-15 16:58:00 No 4 mg, Route: IVP, ONCE, Dosing Weight 97.727, kg, Priority: STAT, Start date: 02/15/17 10:58:00 PROSTHETIC AIDES TEACHER, Stop date: 02/15/17 10:58:00 PROSTHETIC AIDES TEACHER [facility] Aspirin 2017-02-15 15:50:00 No 325 mg, Route: PO, Drug form: TAB, ONCE, Dosing Weight 97.727, kg, Priority: STAT, Start date: 02/15/17 9:50:00 PROSTHETIC AIDES TEACHER, Stop date: 02/15/17 9:50:00 PROSTHETIC AIDES TEACHER [facility] [place] Aspirin (Aspir 81) 81 Mg Tablet. Aspirin (Aspir 81) 81 Mg Tablet. Yes [facility] Atorvastatin Calcium 20 Mg Tablet Atorvastatin Calcium 20 Mg Tablet Yes 20 Bedtime [facility] Biotin Biotin Yes 1 Daily [facility] Carvedilol 3.125 Mg Tablet Carvedilol 3.125 Mg Tablet Yes 3.[address] [facility] Clopidogrel Bisulfate (Plavix) 75 Mg Tablet Clopidogre l Bisulfate (Plavix) 75 Mg Tablet Yes 75 Daily [facility] Glimepiride 2 Mg Tablet Glimepiride 2 Mg Tablet Yes 2 [facility] Multivitamin (Multi-Vitamin Daily) 1 Each Tablet Multi vitamin (Multi-Vitamin Daily) 1 Each Tablet Yes 1 Daily [facility] Acetaminophen/Codeine Phosphate (Tylenol # 3*) 1 Ea Ta b, 1 Tab Oral Acetaminophen/Codeine Phosphate (Tylenol # 3*) 1 Ea Tab, 1 Tab Oral 2018-12-09 00:00:00 No 1 Every 4 Hours as needed for [place] n [facility] Glimepiride (Amaryl) 2 Mg Tablet, 2 Mg Oral Glimepirid e (Amaryl) 2 Mg Tablet, 2 Mg Oral 2018-12-09 00:00:00 No 2 Daily [facility] Acetaminophen With Codeine (Tylenol With Codeine #3 Tablet) 1 Each Tablet, 300 Mg Oral Acetaminophen With Codeine (Tylenol With Codeine #3 Tablet) 1 Each Tablet, 300 Mg Oral 2018-09-13 00:00:00 No 300 Q4-6 Hr as needed for Pain [facility] Biotin 1 Mg Tablet, 1 Tab Oral Biotin 1 Mg Tablet, 1 Tab Oral 2018-09-13 00:00:00 No 1 Daily [facility] Multivitamin With Minerals (Multivitamin s With Minerals) 1 Each Tablet, 1 Tab Oral Multivitamin With Minerals (Multivitamin s With Minerals) 1 Each Tablet, 1 Tab Oral 2018-09-13 00:00:00 No 1 Daily [facility] Saw Carney Fruit (Saw Carney) 450 Mg Capsule, 1 Ca p Oral Saw Carney Fruit (Saw Carney) 450 Mg Capsule, 1 Cap Oral 2018-09-13 00:00:[address] [facility] Clindamycin Hcl 150 Mg Capsule, 300 Mg Oral Clindamyci n Hcl 150 Mg Capsule, 300 Mg Oral 2018-08-12 00:00:00 No 300 [facility] Levofloxacin (Levaquin) 500 Mg Tablet, 500 Mg Oral Lev ofloxacin (Levaquin) 500 Mg Tablet, 500 Mg Oral 2018-08-12 00:00:00 No 500 D aily [facility] Immunizations Ordered Immunization Name Filled Immunization Name Date Status Comments Source Pneumococcal Polysaccharide 2018-04-07 00:00:00 Completed Vance Mchugh Vital Signs Vital Name Observation Time Observation Value Comments Source Respitory Rate 2017-10-17 17:06:00 [facility] Systolic (mm Hg) 2017-10-17 17:06:00 Alistair rial An[facility] Diastolic (mm Hg) 2017-10-17 17:06:00 [facility] [place] Heart Rate 2017-10-17 17:06:00 [facility] [place] Temperature Oral (F) 2017-10-17 17:06:00 97.7 F [facility] Systolic (mm Hg) 2017-10-17 12:38:00 Alistair rial Anj[facility] Diastolic (mm Hg) 2017-10-17 12:38:00 Mem [facility] [place] Heart Rate 2017-10-17 12:38:00 [facility] Respitory Rate 2017-10-17 12:38:00 [facility] Temperature Oral (F) 2017-10-17 12:38:00 99 F [facility] [place] Temperature Oral (F) 2017-10-17 09:15:00 98.7 F [facility] [place] Heart Rate 2017-10-17 09:15:00 [facility] [place] Respitory Rate 2017-10-17 09:15:00 [facility] Systolic (mm Hg) 2017-10-17 09:15:00 Alistair rial [place] Diastolic (mm Hg) 2017-10-17 09:15:00 [facility] [place] Weight 2017-10-16 09:43:00 [facility] Height 2017-10-16 09:43:00 193.04 cm [facility] [place] BMI Calculated 2017-10-16 09:43:00 [facility] [place] Weight 2017-10-16 06:02:00 [facility] BMI Calculated 2017-10-16 06:02:00 [facility] Height 2017-10-16 06:02:00 185.42 cm [facility] [place] BMI Calculated 2017-08-31 20:15:00 [facility] Weight 2017-08-31 20:15:00 [facility] [place] Height 2017-08-31 20:15:00 193.04 cm [facility] [place] Height 2017-08-19 16:06:00 193.04 cm [facility] [place] Weight 2017-08-19 16:06:00 [facility] [place] BMI Calculated 2017-08-19 16:06:00 Mem[facility] Respitory Rate 2017-08-19 16:06:00 [facility] Heart Rate 2017-08-19 16:06:00 [facility] Systolic (mm Hg) 2017-08-19 16:06:00 Alistair rial Anjum Diastolic (mm Hg) 2017-08-19 16:06:00 [facility] [place] BMI Calculated 2017-06-03 18:26:00 [facility] [place] Height 2017-06-03 18:26:00 193.04 cm [facility] Weight 2017-06-03 18:26:00 [facility] [place] Systolic (mm Hg) 2017-06-03 18:26:00 Alistair rial [place] Diastolic (mm Hg) 2017-06-03 18:26:00 [facility] [place] Heart Rate 2017-06-03 18:26:00 [facility] [place] Respitory Rate 2017-06-03 18:26:00 [facility] Height 2017-06-03 15:54:00 193.04 cm [facility] BMI Calculated 2017-06-03 15:54:00 [facility] Weight 2017-06-03 15:54:00 [facility] [place] Weight 2017-05-20 18:54:00 [facility] [place] BMI Calculated 2017-05-20 18:54:00 [facility] Height 2017-05-20 18:54:00 193.04 cm [facility] [place] Systolic (mm Hg) 2017-05-20 18:54:00 Alistair rial Anjum Diastolic (mm Hg) 2017-05-20 18:54:00 Mem o[facility] Respitory Rate 2017-05-20 18:54:00 [facility] Heart Rate 2017-05-20 18:54:00 [facility] [place] BMI Calculated 2017-04-13 20:32:00 [facility] [place] Systolic (mm Hg) 2017-04-13 20:32:00 Alistair rial Anjum Diastolic (mm Hg) 2017-04-13 20:32:00 [facility] [place] Heart Rate 2017-04-13 20:32:00 [facility] Temperature Oral (F) 2017-04-13 20:32:00 96.4 F [facility] Respitory Rate 2017-04-13 20:32:00 [facility] [place] Weight 2017-04-13 20:32:00 [facility] [place] Height 2017-04-13 20:32:00 193.04 cm [facility] Height 2017-04-05 19:50:00 193.04 cm [facility] Heart Rate 2017-04-05 19:50:00 [facility] [place] Temperature Oral (F) 2017-04-05 19:50:00 96.8 F [facility] Respitory Rate 2017-04-05 19:50:00 [facility] [place] Systolic (mm Hg) 2017-04-05 19:50:00 Alistair rial Anjum Diastolic (mm Hg) 2017-04-05 19:50:00 Mem [facility] Temperature Oral (F) 2017-03-17 16:42:00 97.0 F [facility] [place] Heart Rate 2017-03-17 16:42:00 [facility] Systolic (mm Hg) 2017-03-17 16:42:00 [facility] Diastolic (mm Hg) 2017-03-17 16:42:00 [facility] BMI Calculated 2017-03-17 15:50:00 [facility] Weight 2017-03-17 15:50:00 [facility] Height 2017-03-17 15:50:00 193.04 cm [facility] Temperature Oral (F) 2017-03-17 15:50:00 97.0 F [facility] Systolic (mm Hg) 2017-03-17 15:50:00 [facility] Diastolic (mm Hg) 2017-03-17 15:50:00 [facility] [place] Respitory Rate 2017-03-17 15:50:00 [facility] [place] Heart Rate 2017-03-17 15:50:00 [facility] Systolic (mm Hg) 2017-03-07 22:00:00 Alistair [facility] Diastolic (mm Hg) 2017-03-07 22:00:00 [facility] [place] Respitory Rate 2017-03-07 22:00:00 [facility] Respitory Rate 2017-03-07 21:00:00 [facility] [place] Systolic (mm Hg) 2017-03-07 21:00:00 Alistair [facility] Diastolic (mm Hg) 2017-03-07 21:00:00 [facility] Systolic (mm Hg) 2017-03-07 19:44:00 [facility] Diastolic (mm Hg) 2017-03-07 19:44:00 [facility] Temperature Oral (F) 2017-03-07 17:21:00 98 F [facility] [place] Respitory Rate 2017-03-07 17:21:00 [facility] Temperature Oral (F) 2017-03-07 13:00:00 97.6 F [facility] [place] Temperature Oral (F) 2017-03-07 12:00:00 96.8 F [facility] Height 2017-02-26 17:02:00 193.04 cm [facility] Height 2017-02-26 16:00:00 193.04 cm [facility] Height 2017-02-26 13:46:00 193.04 cm [facility] [place] Heart Rate 2017-02-23 12:00:00 [facility] [place] Heart Rate 2017-02-23 06:39:00 [facility] Heart Rate 2017-02-23 02:38:00 [facility] [place] [facility] Weight 2017-02-20 08:11:00 [facility] BMI Calculated 2017-02-20 08:11:00 [facility] Temperature Oral (F) 2017-02-20 04:49:00 98 F [facility] Heart Rate 2017-02-20 04:49:00 [facility] Systolic (mm Hg) 2017-02-20 04:49:00 Alistair [facility] Diastolic (mm Hg) 2017-02-20 04:49:00 [facility] Respitory Rate 2017-02-20 04:49:00 [facility] Systolic (mm Hg) 2017-02-20 01:33:00 [facility] Diastolic (mm Hg) 2017-02-20 01:33:00 [facility] Respitory Rate 2017-02-20 01:33:00 [facility] [place] Temperature Oral (F) 2017-02-20 01:33:00 97.7 F [facility] Heart Rate 2017-02-20 01:33:00 [facility] [place] Heart Rate 2017-02-19 23:38:00 [facility] [place] Respitory Rate 2017-02-19 23:38:00 [facility] [place] Systolic (mm Hg) 2017-02-19 23:38:00 [facility] Diastolic (mm Hg) 2017-02-19 23:38:00 [facility] [place] Temperature Oral (F) 2017-02-19 23:38:00 97.6 F [facility] Weight 2017-02-19 17:00:00 [facility] Height 2017-02-16 04:04:00 193.04 cm [facility] BMI Calculated 2017-02-16 04:04:00 Philip pearson [facility] Weight 2017-02-16 04:04:00 [facility] Weight 2017-02-15 15:36:00 [facility] Height 2017-02-15 15:36:00 193.04 cm [facility] BMI Calculated 2017-02-15 15:36:00 Philip pearson [place] Procedures Procedure Date / Time Performed Performing Clinician [facility] e INSERTION OF INFUSION DEV INTO SUP VENA CAVA, PERC APPROACH 2018-12-05 00:00:00 HUY COLBY [facility] Computed tomography of abdomen without contrast 2018-12-04 0 0:00:00 EVANGELIST PATTEN [facility] US abdomen complete 2018-11-30 00:00:00 GINO WALL [facility] CT of abdomen and pelvis without contrast 2018-11-27 00:00:00 THAO WARE [facility] MRI non-joint region of extremity lower wo contrast 00:00:00 JUSTO RESENDEZ [facility] Ultrasound guidance for vascular access 2018-09-16 00:00:00 KAILA ULLOA [facility] CT of abdomen and pelvis without contrast 2018-09-15 00:00:0 0 DUKE GINO [facility] Ultrasound, renal 2018-09-15 00:00:00 KENDAL FERNANDEZ [facility] EXCISION OF R UP LEG SUBCU/FASCIA, OPEN APPROACH 2018-09-14 00:00:00 DUKE [facility] DRAIN R LOW LEG SUBCU/FASCIA W DRAIN DEV, OPEN 2018-09-14 00 :00:00 DUKE [facility] EXCISION OF R UP LEG SUBCU/FASCIA, OPEN APPROACH 2018-08-10 00:00:00 DUKE [facility] CT extremity lower right w contrast 2018-08-09 00:00:00 HAVEN SHARIF [facility] CABG x 5 - Coronary artery bypass grafts x 5 2017-02-23 06:00:00 [facility] Biliary lithotripsy [facility] Partial resection of colon Memor [facility] PCL - Percutaneous lithotripsy of renal calculus [facility] Placement of stent in cardiac conduit [facility] Plan of Care Planned Activity Planned Date Details Comments Source Future Scheduled Test 2023-04-07 00:00:00 65+ PNEUMOCOCCAL V ACCINE (1 of 1 - PPSV23) [code = 65+ PNEUMOCOCCAL VACCINE (1 of 1 - PPSV23)] [facility] Future Scheduled Test 2019-09-09 00:00:00 INFLUENZA VACCINE [code = INFLUENZA VACCINE] [facility] Future Scheduled Test 2003-08-07 00:00:00 COLONOSCOPY SCREEN ING [code = COLONOSCOPY SCREENING] [facility] Scheduled Test 2003-08-07 00:00:00 SHINGLES VACCINES (#1) [code = SHINGLES VACCINES (#1)] [facility] Encounters Start Date/Time End Date/Time En[facility] ID Source 2019-02-23 20:43:00 2019-02-24 13:00:00 Discharged Inpatient 1 TU PADILLA [facility] [id number] [facility] 2018-11-27 18:52:00 2018-12-09 13:57:00 Discharged Inpatient 1 CRISTY WINSTON [facility] [id number] [facility] 2018-11-08 12:29:00 2018-11-08 23:59:00 Outpatient Justo Resendez [facility] [id number] 2018-11-08 12:29:00 2018-11-08 12:29:00 Outpatient SE SE [id number] [facility] 2018-09-13 16:33:00 2018-09-19 17:00:00 Discharged Inpatient 3 YSABEL WALLFIRIO [facility] [id number] [facility] 2018-08-09 00:27:00 2018-08-12 18:47:00 Discharged Inpatient 1 PATTENPAT Lowery [facility] [id number] [facility] 2017-11-08 12:00:00 2017-11-08 12:00:00 Outpatient RoseanneAdam marinelli [facility] [id number] 2017-10-16 00:52:00 2017-10-17 17:39:00 Outpatient Alfonzo Hernandez [facility] [id number] 2017-08-31 15:08:00 2017-08-31 23:59:00 Outpatient RoseanneAdam marinelli [facility] [id number] 2017-08-31 15:08:00 2017-08-31 23:59:00 Outpatient RoseanneAdam marinelli [facility] [id number] 2017-08-19 11:03:00 2017-08-19 23:59:00 Outpatient RoseanneAdam marinelli [facility] [id number] 2017-08-19 11:03:00 2017-08-19 11:03:00 Outpatient [facility] CAR [id number] [facility] 2017-06-03 12:03:00 2017-06-03 23:59:00 Outpatient RoseanneAdam marinelli [facility] [id number] 2017-06-03 10:43:00 2017-06-03 23:59:00 Outpatient RoseanneAdam marinelli [facility] [id number] 2017-05-20 12:52:00 2017-05-20 23:59:00 Outpatient RoseanneAdam marinelli [facility] [id number] 2017-05-20 12:52:00 2017-05-20 23:59:00 Outpatient RoseanneAdam marinelli [facility] [id number] 2017-04-24 13:41:00 2017-04-24 23:59:00 Outpatient RoseanneAdam marinelli [id number] 2017-04-16 12:30:00 2017-04-16 12:30:00 Outpatient RoseannePhyllisAdammichael Ivory [id number] 2017-04-13 14:11:00 2017-04-13 23:59:00 Outpatient Contreras Bower [facility] [id number] 2017-04-13 14:11:00 2017-04-13 23:59:00 Outpatient Contreras Bower [facility] [id number] 2017-04-13 08:24:00 2017-04-13 23:59:00 Outpatient RoseanneAdam [id number] 2017-04-13 08:24:00 2017-04-13 23:59:00 Outpatient RoseanneAdam [id number] 2017-04-05 14:58:00 2017-04-05 23:59:00 Outpatient Roseanne Adamjosephine Ivory [facility] [id number] 2017-04-05 13:52:00 2017-04-05 23:59:00 Outpatient Adam Cronin [facility] [id number] 2017-03-25 10:40:00 2017-03-25 10:40:00 Outpatient GreggoricParth [facility] [id number] 2017-03-17 09:38:00 2017-03-17 23:59:00 Outpatient Murphy Puentes [facility] [id number] 2017-02-20 01:59:00 2017-03-07 17:20:00 Outpatient Parth Saez [facility] [id number] 2017-02-15 09:31:00 2017-02-19 01:30:00 Outpatient Murphy Read [id number] 2017-02-15 09:31:00 2017-02-19 01:30:00 Outpatient Murphy Read [id number] Results Test Description Test Time Test Comments Results Result Comments Source US ABDOMEN LIMITED 2019-12-14 13:06:00 [facility] : 1955 Sex: M [place] [address] Patient Name: ANKUR DEGROOT MR #: [id number] : 1955 Age/Sex: 64/M Req #: [id number] [facility] Physician: CRISTY WINSTON MD Ordered by: Yonatan Nunes 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 Report #: [id number] [facility] Procedure: [id number] US/US ABDOMEN LIMITED Exam Date: 12/14/19 Exam Time: 1211 REPORT STATUS: Signed EXAM: US ABDOMEN LIMITED DATE: 12/14/2019 12:11 PM INDICATION: ABD PAIN [id number] COMPARISON: CT scan dated 12/13/2019 TECHNIQUE: Transverse and longitudinal scale and color doppler sonographic images of the right upper quadrant were obtained. FINDINGS: Evaluation is significantly limited due to overlying bowel gas and patient body habitus. LIVER 15.4 cm in the right midclavicular line. Liver is diffusely echogenic with normal contour, no masses. GALLBLADDER No gallbladder wall thickening, distension, stone, or pericholecystic fluid. Negative reported sonographic Guerrero's sign. BILE DUCTS No intra nor extra-hepatic biliary dilation. Common bile duct measures 0.3cm PANCREAS: Not well visualized RIGHT KIDNEY: 11.5 cm Echogenicity: Normal Collecting System: No hydronephrosis Stones: None Cyst/Mass: None VESSELS: Aorta: Not well visualized Inferior Vena Cava: Not well visualized Main Portal Vein: 1.2 cm, normal size with hepatopetal flow. FREE FLUID: None IMPRESSION: Extremely limited evaluation due to patient body habitus and overlying bowel gas. Hepatic steatosis. Negative for biliary dilatation. Signed by: Joel Salcedo MD on 12/14/2019 1:08 PM Dictated By: JOEL SALCEDO MD 1308 Transcribed By: MAGALY on 12/14/19 1308 COPY TO: YONATAN NUNES NP CT ABDOMEN/PELVIS W 2019-12-13 14:02:00 [facility] 1955 Sex: [place] [address] Patient Name: ANKUR DEGROOT MR #: [id number] : 1955 Age/Sex: 64/M Req #: [id number] [facility] Physician: CRISTY WINSTON MD Ordered by: TU PADILLA MD Report #: [id number] Location: [facility] Room/Bed: [place] [address] Procedure: [id number] CT/CT ABDOMEN/PELVIS W Exam Date: 12/13/19 Exam Time: 1310 REPORT STATUS: Signed EXAM: CT Abdomen and Pelvis WITH intravenous contrast INDICATION: Abdominal pain COMPARISON: None. TECHNIQUE: Abdomen and pelvis were scanned utilizing a multidetector helical scanner from the lung base to the pubic symphysis after administration of IV contrast. Coronal and sagittal reformations were obtained. Routine protocol was performed. Scan was performed during portal venous phase. IV CONTRAST: 100mL of Isovue 370 ORAL CONTRAST: Water RADIATION DOSE: Total DLP: 847 mGy*cm Dose modulation, iterative reconstruction, and/or weight based adjustment of the mA/kV was utilized to reduce the radiation dose to as low as reasonably achievable. FINDINGS: LOWER THORAX: Please refer to report from concurrently performed chest CT for intrathoracic findings HEPATOBILIARY: Severe diffuse hepatic steatosis. No focal liver lesion. No biliary ductal dilation. Unremarkable gallbladder. SPLEEN: Absent spleen. 3.7 cm round mass adjacent to the lateral aspect of the upper pole of the left kidney most likely represents a splenule. Additional lateral left upper quadrant 2.1 cm splenule. PANCREAS: Mild fat stranding adjacent to the pancreatic body and tail. Calcifications at the pancreatic head. No associated focal fluid collection, hypoenhancement of pancreatic parenchyma, or vascular thrombosis. ADRENALS: No adrenal nodules. KIDNEYS/URETERS: No hydronephrosis. Nonobstructive 4 mm right lower pole renal calculus. PELVIC ORGANS/BLADDER: 1.8 cm irregular calculus in the dependent bladder adjacent to the right ureterovesical junction. PERITONEUM / RETROPERITONEUM: No free air or fluid. LYMPH NODES: No lymphadenopathy. VESSELS: Atherosclerotic arterial calcifications of the nonaneurysmal abdominal aorta and major branches. GI TRACT: No abnormal bowel thickening. No bowel obstruction. Normal appendix. BONES AND SOFT TISSUES: No acute osseous injury. No suspicious lytic or blastic lesions. IMPRESSION: Peripancreatic fat stranding adjacent to the pancreas body and tail consistent with mild acute pancreatitis. Calcifications of the pancreatic head may reflect a component of chronic pancreatitis. No associated abscess or pancreatic necrosis. Nonobstructive 4 mm right lower pole renal calculus. 1.8 cm irregular calculus at the dependent right bladder adjacent to the right ureterovesical junction. Severe diffuse hepatic steatosis. Signed by: Ulises Galloway MD on 12/13/2019 2:08 PM Dictated By: ULISES GALLOWAY MD 07 Transcribed By: MAGALY on 12/13/191407 COPY TO: TU PADILLA MD CT CHEST W 2019-12-13 13:57:00 [facility] : 1955 Sex: M [facility] [address] [place] [address] Patient Name: ANKUR DEGROOT MR #: [id number] : 1955 Age/Sex: 64/M Req #: [id number] Adm Physician: CRISTY WINSTON MD Ordered by: TU PADILLA MD Report #: [id number] Location: [facility] Room/Bed: [place] [address] Procedure: [id number] CT/CT CHEST W Exam Date: 12/13/19 Exam Time: 1310 REPORT STATUS: Signed EXAM: CT Chest WITH contrast- Pulmonary Embolism Protocol INDICATION: Chest pain COMPARISON: Chest radiograph of earlier the same day TECHNIQUE: Chest was scanned utilizing a multidetector helical scanner from the lung apex through the level of the diaphragm after administration of IV contrast. Thin section reconstructions were obtained with special concentration on the pulmonary arteries. Coronal and sagittal reformations were obtained. Pulmonary embolism protocol was performed. IV CONTRAST: 100 cc of Isovue 370 RADIATION DOSE: Total DLP: 582 mGy*cm Dose modulation, iterative reconstr uction, and/or weight based adjustment of the mA/kV was utilized to reduce the radiation dose to as low as reasonably achievable. COMPLICATIONS: None FINDINGS: LINES/ TUBES: None. PULMONARY ARTERIES: No filling defect is identified within the pulmonary arteries to the segmental level. The subsegmental pulmonary arteries are not well opacified. Main pulmonary artery measures 2.6 cm in diameter. No right heart strain. LUNGS AND AIRWAYS: The central airways are patent. No focal consolidation or pulmonary edema. Subcentimeter left lower lobe calcified granuloma. Minimal bibasilar dependent subsegmental atelectasis. PLEURA: The pleural spaces are clear. HEART AND MEDIASTINUM: The thyroid gland is normal. No mediastinal, hilar or axillary lymphadenopathy. The heart is normal in size.. There is no pericardial effusion. Scattered atherosclerotic calcifications involve the thoracic aorta and coronary arteries. UPPER ABDOMEN: Please see the separate dictation for the concurrently performed abdomen and pelvis CT for a detailed discussion of intra-abdominal findings. BONES: The visualized bony thorax is within normal limits. SOFT TISSUES: Unremarkable. IMPRESSION: No pulmonary embolism. No focal pneumonia or pulmonary edema. Signed by: Ulises Galloway MD on 12/13/2019 2:01 PM Dictated By: ULISES GALLOWAY MD 1401 Transcribed By: MAGALY on 12/13/191400 COPY TO: TU PADILLA MD CHEST SINGLE (PORTABLE) 2019-12-13 11:31:00 [facility] : 1955 Sex: M [place] [address] Patient Name: ANKUR DEGROOT MR #: [id number] : 1955 Age/Sex: 64/M Req #: [id number] Adm Physician: Ordered by: THAO LY MD Report #: [id number] Location: ER Room/Bed: Procedure: [id number] DX/CHEST SINGLE (PORTABLE) Exam Date: 12/13/19 Exam Time: 1115 REPORT STATUS: Signed EXAMINATION: CHEST SINGLE (PORTABLE) INDICATION: Chest pain COMPARISON: Chest radiograph 02/23/2019 FINDINGS: LINES/TUBES:EKG leads overlie the chest. LUNGS:The lungs are well-inflated. No focal consolidation or pulmonary edema. PLEURA:No pleural effusion or pneumothorax. MEDIASTINUM:The cardiomediastinal silhouette appears normal in size and shape. Postoperative findings of prior CABG. BONES/SOFT TISSUES:No acute osseous injury. Sternotomy wires in place. ABDOMEN:No free air under the diaphragm. IMPRESSION: No focal pneumonia or pulmonary edema. Signed by: Ulises Galloway MD on 12/13/2019 11:32 AM Dictated By: ULISES GALLOWAY MD 113 Transcribed By: MAGALY on 12/13/19 113 COPY TO: THAO LY MD Bedside Glucose 2019-02-24 11:58:00 Test Item Bedside Glucose (test code = 90655-9) 164 70-120 H Meter ID: [id number] E. [facility] Centertool Occult Blood 2019-02-24 10:48:00* Test Item Value Reference Range Interpretation Comments Stool Occult Blood (test code = 2335-8) POSITIVE NEGATIVE H [facility] StationThyroid Stimulating Hormone (TSH) 2019-02-24 06:43:00* Test Item Value Reference Range Interpretation Comments Thyroid Stimulating Hormone (TSH) (test code = 64111-9) 1.823 0.350-4.940 [facility] Centerodium Iaciu0607-30-69 06:24:00* Test Item Value Reference Range Interpretation Comments Sodium Level (test code = 2951-2) 139 136-145 [facility] StationPotassium Doqyd6156-02-52 06:24:00* Test Item Value Reference Range Interpretation Comments Potassium Level (test code = 2823-3) 3.9 3.5-5.1 [facility] StationChloride Likke9753-35-33 06:24:00* Test Item Value Reference Range Interpretation Comments Chloride Level (test code = 2075-0) 104 98-107 [facility] StationCarbon Dioxide Ayfln6382-15-53 06:24:00* Test Item Value Reference Range Interpretation Comments Carbon Dioxide Level (test code = 2028-9) 25 22-29 [facility] StationAnion Pqo0855-72-14 06:24:00* Test Item Value Reference Range Interpretation Comments Anion Gap (test code = 68433-5) 13.9 8-16 [facility] StationBlood Urea Vnqrermr7032-29-72 06:24:00* Test Item Value Reference Range Interpretation Comments Blood Urea Nitrogen (test code = 3094-0) 23 7-26 [facility] StationCreatinine2020-01-17 06:24:00* Test Item Value Reference Range Interpretation Comments Creatinine (test code = 2160-0) 1.52 0.72-1.25 H [facility] StationBUN/Creatinine Qqvui6043-02-80 06:24:00* Test Item Value Reference Range Interpretation Comments BUN/Creatinine Ratio (test code = 3097-3) 15 6-25 [facility] StationEstimat Glomerular Filtration Rate 2019-02-24 06:24:00* Test Item Value Reference Range Interpretation Comments Estimat Glomerular Filtration Rate (test code = 472826087) 46 >60 L Ranges were taken from the National Kidney Disease Education Program and the [employer] literature.Reference ranges:60 or greater: Trmost36-81 ( for 3 consecutive months): Chronic kidney disease 15 or less: Kidney failureBaylor Scott & [facility] StationGlucose Ayaux6452-13-17 06:24:00* Test Item Value Reference Range Interpretation Comments Glucose Level (test code = ADK7578) 124 74-118 H [facility] StationCalcium Cgpvg9139-60-78 06:24:00* Test Item Value Reference Range Interpretation Comments Calcium Level (test code = 73062-9) 8.9 8.4-10.2 [facility] StationTotal Tgcbkvdec5731-40-27 06:24:00* Test Item Value Reference Range Interpretation Comments Total Bilirubin (test code = 1975-2) 1.8 0.2-1.2 H [facility] StationAspartate Amino Transf (AST/SGOT) 2019-02-24 06:24:00* Test Item Value Reference Range Interpretation Comments Aspartate Amino Transf (AST/SGOT) (test code = Aspartate Amino Transf (AST/SGOT)) 101 5-34 H [facility] StationAlanine Aminotransferase (ALT/SGPT) 2019-02-24 06:24:00* Test Item Value Reference Range Interpretation Comments Alanine Aminotransferase (ALT/SGPT) (test code = 1742-6) 77 0-55 H [facility] StationTotal Aadglgj4377-55-31 06:24:00* Test Item Value Reference Range Interpretation Comments Total Protein (test code = 2885-2) 6.3 6.5-8.1 L [facility] StationAlbumin2020-01-17 06:24:00* Test Item Value Reference Range Interpretation Comments Albumin (test code = 1751-7) 3.3 3.5-5.0 L [facility] StationGlobulin2020-01-17 06:24:00* Test Item Value Reference Range Interpretation Comments Globulin (test code = 42078-2) 3.0 2.3-3.5 [facility] StationAlbumin/Globulin Lijlt6634-49-58 06:24:00 * Test Item Value Reference Range Interpretation Comments Albumin/Globulin Ratio (test code = 1759-0) 1.1 0.8-2.0 [facility] StationAlkaline Evzuimsipkc3782-81-14 06:24:00* Test Item Value Reference Range Interpretation Comments Alkaline Phosphatase (test code = 6768-6) 57 40-150 [facility] StationTriglycerides Xecrp7666-36-27 06:24:00* Test Item Value Reference Range Interpretation Comments Triglycerides Level (test code = 2571-8) 112 0-149 [facility] StationCholesterol Fsgcz7406-54-98 06:24:00* Test Item Value Reference Range Interpretation Comments Cholesterol Level (test code = 2093-3) 167 0-199 Less than 200 mg/dL Low Ncny769 - 239 mg/dL Borderline Hbmq499 m g/dl and greater High Risk [facility] StationLDL Lmdarmhgmna9235-68-31 06:24:00* Test Item Value Reference Range Interpretation Comments LDL Cholesterol (test code = 2089-1) 79 60-130 [facility] StationHDL Raqyxtdhlwf1398-90-65 06:24:00* Test Item Value Reference Range Interpretation Comments HDL Cholesterol (test code = 2085-9) 66 40-60 H [facility] StationCholesterol/HDL Gmzoo6515-81-75 06:24:00 * Test Item Value Reference Range Interpretation Comments Cholesterol/HDL Ratio (test code = 9830-1) 2.5 3.9-4.7 L [facility] StationLipase2020-01-17 06:24:00* Test Item Value Reference Range Interpretation Comments Lipase (test code = 3040-3) 181 8-78 H [facility] StationWhite Blood Vkyun4682-14-26 06:11:00* Test Item Value Reference Range Interpretation Comments White Blood Count (test code = 6690-2) 7.68 4.8-10.8 [facility] StationRed Blood Ifyfl8958-83-88 06:11:00* Test Item Value Reference Range Interpretation Comments Red Blood Count (test code = 789-8) 3.90 4.3-5.7 L [facility] StationHemoglobin2020-01-17 06:11:00* Test Item Value Reference Range Interpretation Comments Hemoglobin (test code = 49933-1) 14.3 14.0-18.0 [facility] StationHematocrit2020-01-17 06:11:00* Test Item Value Reference Range Interpretation Comments Hematocrit (test code = 4544-3) 41.7 38.2-49.6 [facility] StationMean Corpuscular Iwqllb0548-21-55 06:11:00* Test Item Value Reference Range Interpretation Comments Mean Corpuscular Volume (test code = 787-2) 106.9 81-99 [facility] [facility] StationMean Corpuscular Zkktpecolt8931-43-32 06:11:00* Test Item Value Reference Range Interpretation Comments Mean Corpuscular Hemoglobin (test code = 785-6) 36.7 28-32 [facility] StationMean Corpuscular Hemoglobin Concent 2019-02-24 06:11:00* Test Item Value Reference Range Interpretation Comments Mean Corpuscular Hemoglobin Concent (test code = 786-4) 34.3 31-35 [facility] StationRed Cell Distribution Wlmrj5528-71-93 06:11:00* Test Item Value Reference Range Interpretation Comments Red Cell Distribution Width (test code = 80730-3) 16.3 11.7 -14.4 H [facility] StationPlatelet Mbsxy0217-12-29 06:11:00* Test Item Value Reference Range Interpretation Comments Platelet Count (test code = 777-3) 171 140-360 [facility] StationNeutrophils (%) (Auto)2019-02-24 06:11:00 * Test Item Value Reference Range Interpretation Comments Neutrophils (%) (Auto) (test code = 18755-9) 52.6 38.7-80.0 [facility] StationLymphocytes (%) (Auto)2019-02-24 06:11:00 * Test Item Value Reference Range Interpretation Comments Lymphocytes (%) (Auto) (test code = 736-9) 29.4 18.0-39.1 [facility] StationMonocytes (%) (Auto)2019-02-24 06:11:00* Test Item Value Reference Range Interpretation Comments Monocytes (%) (Auto) (test code = 5905-5) 12.5 4.4-11.3 [facility] StationEosinophils (%) (Auto)2019-02-24 06:11:00 * Test Item Value Reference Range Interpretation Comments Eosinophils (%) (Auto) (test code = 713-8) 4.0 0.0-6.0 [facility] StationBasophils (%) (Auto)2019-02-24 06:11:00* Test Item Value Reference Range Interpretation Comments Basophils (%) (Auto) (test code = 706-2) 1.2 0.0-1.0 H [facility] StationIM GRANULOCYTES %2019-02-24 06:11:00* Test Item Value Reference Range Interpretation Comments IM GRANULOCYTES % (test code = IM GRANULOCYTES %) 0.3 0.0- 1.0 [facility] StationNeutrophils # (Auto)2019-02-24 06:11:00* Test Item Value Reference Range Interpretation Comments Neutrophils # (Auto) (test code = 751-8) 4.0 2.1-6.9 [facility] StationLymphocytes # (Auto)2019-02-24 06:11:00* Test Item Value Reference Range Interpretation Comments Lymphocytes # (Auto) (test code = 10778-0) 2.3 1.0-3.2 [facility] StationMonocytes # (Auto)2019-02-24 06:11:00* Test Item Value Reference Range Interpretation Comments Monocytes # (Auto) (test code = 742-7) 1.0 0.2-0.8 H [facility] StationEosinophils # (Auto)2019-02-24 06:11:00* Test Item Value Reference Range Interpretation Comments Eosinophils # (Auto) (test code = 711-2) 0.3 0.0-0.4 [facility] StationBasophils # (Auto)2019-02-24 06:11:00* Test Item Value Reference Range Interpretation Comments Basophils # (Auto) (test code = 704-7) 0.1 0.0-0.1 [facility] StationAbsolute Immature Granulocyte (auto 2019-02-24 06:11:00* Test Item Value Reference Range Interpretation Comments Absolute Immature Granulocyte (auto (riley t code = Absolute Immature Granulocyte (auto) 0.02 0-0.1 [facility] StationB-Type Natriuretic Roygwba5702-17-71 18:00:00* Test Item Value Reference Range Interpretation Comments B-Type Natriuretic Peptide (test code = 12804-0) 261.6 0-100 H [facility] StationCreatine Kinase [id number] 18:00:00* Test Item Value Reference Range Interpretation Comments Creatine Kinase MB (test code = 84066-5) 2.30 0-5.0 [facility] StationTroponin [id number] 18:00:00* Test Item Value Reference Range Interpretation Comments Troponin I (test code = PUH3193) 0.028 0-0.300 [facility] StationCHEST SINGLE (PORTABLE)2019-02-23 17:55:00 [place] [address] Patient Name: ANKUR DEGROOT MR #: [id number] : 1955 Age/Sex: 63/M Req #: [id number] Adm Physician: Ordered by: AAKASH DEY 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 Report #: [id number] Location: ER Room/Bed: Procedure: [id number] DX/CHEST SINGLE (PORTABLE) Exam Date: 02/23/19 Exam Time: 1734 REPORT STATUS: Signed EXAMINATION: CHEST SINGLE (PORTABLE) INDICATION: Chest pain ERMD ORDER [id number] Y COMPARISON: 12/05/2018 FI NDINGS: TUBES and LINES: Sternal wires. LUNGS: Lungs are well inflated. Lungs are clear. There is no evidence of pneumonia or pulmonary edema. PLEURA: No pleural effusion or pneumothorax. HEART AND MEDIASTINUM: Car diomegaly with pulmonary vascular congestion. BONES AND SOFT TISSUES: No acute osseous lesion. Soft tissues are unremarkable. UPPER ABDOMEN: N o free air under the diaphragm. IMPRESSION: Cardiomegaly with pulmon emely vascular congestion. Signed by: Dr. Igor Adame M.D. on 02/23/2019 5 :57 PM Dictated By: IGOR ADAME MD, MD 56 Transcribed By: MAGALY on 02/23/191756 C OPY TO: AAKASH DEY 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 Amylase Eddua5239-00-94 17:47:00* Test Item Value Reference Range Interpretation Comments Amylase Level (test code = 1798-8) 128 25-125 [facility] StationCreatine Tfompr5435-60-95 17:46:00* Test Item Value Reference Range Interpretation Comments Creatine Kinase (test code = 2157-6) 62 30-200 [facility] StationProthrombin Kihq8517-54-88 17:36:00* Test Item Value Reference Range Interpretation Comments Prothrombin Time (test code = 5902-2) 13.7 11.9-14.5 [facility] StationProthromb Time International Ratio 2019-02-23 17:36:00* Test Item Value Reference Range Interpretation Comments Prothromb Time International Ratio (test code = 6301-6) 1.00 Oral Anticoagulant Therapy INR Values:1. Low Intensity Therapy 1.5 - 2.02 . Moderate Intensity Therapy 2.0 - 3.03. High Intensity Therapy(1) 2.5 - 3. 54. High Intensity Therapy(2) 3.0 - 4.05. Panic Value INR > 5.0 [facility] StationActivated Partial Thromboplast Time 2019-02-23 17:36:00* Test Item Value Reference Range Interpretation Comments Activated Partial Thromboplast Time (test code = 16677-4) 29.0 23.8-35.5 [facility] StationBedside Nttnwec5287-26-17 11:57:00* Test Item Value Reference Range Interpretation Comments Bedside Glucose (test code = 90956-0) 234 70-120 H Meter ID: [id number] Medical CenterTriglycerides Level 2018-12-09 10:53:00* Test Item Value Reference Range Interpretation Comments Triglycerides Level (test code = 2571-8) 151 0-149 [facility] StationCholesterol Stesn4757-05-07 10:53:00* Test Item Value Reference Range Interpretation Comments Cholesterol Level (test code = 2093-3) 127 0-199 Less than 200 mg/dL Low Effr227 - 239 mg/dL Borderline Zxqz619 m g/dl and greater High Risk [facility] StationLDL Ckhhocbsctv0947-85-48 10:53:00* Test Item Value Reference Range Interpretation Comments LDL Cholesterol (test code = 2089-1) 74 60-130 [facility] StationHDL Xcwvrpxeckv0074-48-32 10:53:00* Test Item Value Reference Range Interpretation Comments HDL Cholesterol (test code = 2085-9) 23 40-60 L [facility] StationCholesterol/HDL Txqzk4411-81-41 10:53:00 * Test Item Value Reference Range Interpretation Comments Cholesterol/HDL Ratio (test code = 9830-1) 5.5 3.9-4.7 [facility] Centerodium Mbcsn6491-38-51 05:50:00* Test Item Value Reference Range Interpretation Comments Sodium Level (test code = 2951-2) 131 136-145 L [facility] StationPotassium Vpqiw5328-50-11 05:50:00* Test Item Value Reference Range Interpretation Comments Potassium Level (test code = 2823-3) 3.7 3.5-5.1 [facility] StationChloride Mijyj5787-83-47 05:50:00* Test Item Value Reference Range Interpretation Comments Chloride Level (test code = 2075-0) 98 98-107 [facility] StationCarbon Dioxide Xqcpz7358-79-92 05:50:00* Test Item Value Reference Range Interpretation Comments Carbon Dioxide Level (test code = 2028-9) 24 22-29 [facility] StationAnion Les4801-28-06 05:50:00* Test Item Value Reference Range Interpretation Comments Anion Gap (test code = 54765-7) 12.7 8-16 [facility] StationBlood Urea Kpwumhcl8576-62-73 05:50:00* Test Item Value Reference Range Interpretation Comments Blood Urea Nitrogen (test code = 3094-0) 11 7-26 [facility] StationCreatinine2019-11-01 05:50:00* Test Item Value Reference Range Interpretation Comments Creatinine (test code = 2160-0) 1.64 0.72-1.25 H [facility] StationBUN/Creatinine Eazcv1900-28-67 05:50:00* Test Item Value Reference Range Interpretation Comments BUN/Creatinine Ratio (test code = 3097-3) 7 6-25 [facility] StationEstimat Glomerular Filtration Rate 2018-12-09 05:50:00* Test Item Value Reference Range Interpretation Comments Estimat Glomerular Filtration Rate (test code = 445849738) 42 >60 L Ranges were taken from the National Kidney Disease Education Program and the [facility] Kidney Foundation literature.Reference ranges:60 or greater: Zxoayt56-10 ( for 3 consecutive months): Chronic kidney disease 15 or less: Kidney failureBaylor Scott & [facility] – College StationGlucose Yqjrs7602-39-93 05:50:00* Test Item Value Reference Range Interpretation Comments Glucose Level (test code = OUB1196) 186 74-118 H [facility] StationCalcium Hjpca8029-68-78 05:50:00* Test Item Value Reference Range Interpretation Comments Calcium Level (test code = 07232-3) 9.3 8.4-10.2 [facility] StationMagnesium Aokyk5750-56-44 05:50:00* Test Item Value Reference Range Interpretation Comments Magnesium Level (test code = 82918-0) 1.5 1.3-2.1 [facility] StationLipase2019-11-01 05:50:00* Test Item Value Reference Range Interpretation Comments Lipase (test code = 3040-3) 461 8-78 H [facility] StationMagnesium Vjcbw9084-93-31 05:50:00* Test Item Value Reference Range Interpretation Comments Magnesium Level (test code = 81528-1) 1.5 1.3-2.1 [facility] StationWhite Blood Kgcmc6759-07-11 05:19:00* Test Item Value Reference Range Interpretation Comments White Blood Count (test code = 6690-2) 9.19 4.8-10.8 [facility] StationRed Blood Wpovg8745-30-16 05:19:00* Test Item Value Reference Range Interpretation Comments Red Blood Count (test code = 789-8) 3.99 4.3-5.7 L [facility] StationHemoglobin2019-11-01 05:19:00* Test Item Value Reference Range Interpretation Comments Hemoglobin (test code = 74491-7) 14.1 14.0-18.0 [facility] StationHematocrit2019-11-01 05:19:00* Test Item Value Reference Range Interpretation Comments Hematocrit (test code = 4544-3) 41.1 38.2-49.6 [facility] StationMean Corpuscular Cnczyf8737-69-53 05:19:00* Test Item Value Reference Range Interpretation Comments Mean Corpuscular Volume (test code = 787-2) 103.0 81-99 H [facility] StationMean Corpuscular Wymntdydbj7950-78-24 05:19:00* Test Item Value Reference Range Interpretation Comments Mean Corpuscular Hemoglobin (test code = 785-6) 35.3 28-32 H [facility] StationMean Corpuscular Hemoglobin Concent 2018-12-09 05:19:00* Test Item Value Reference Range Interpretation Comments Mean Corpuscular Hemoglobin Concent (test code = 786-4) 34.3 31-35 [facility] StationRed Cell Distribution Yfmdv7677-31-40 05:19:00* Test Item Value Reference Range Interpretation Comments Red Cell Distribution Width (test code = 04478-4) 12.7 11.7 -14.4 [facility] StationPlatelet Lslhx4831-34-39 05:19:00* Test Item Value Reference Range Interpretation Comments Platelet Count (test code = 777-3) 358 140-360 [facility] StationNeutrophils (%) (Auto)2018-12-09 05:19:00 * Test Item Value Reference Range Interpretation Comments Neutrophils (%) (Auto) (test code = 24831-4) 53.8 38.7-80.0 [facility] StationLymphocytes (%) (Auto)2018-12-09 05:19:00 * Test Item Value Reference Range Interpretation Comments Lymphocytes (%) (Auto) (test code = 736-9) 27.1 18.0-39.1 [facility] StationMonocytes (%) (Auto)2018-12-09 05:19:00* Test Item Value Reference Range Interpretation Comments Monocytes (%) (Auto) (test code = 5905-5) 11.3 4.4-11.3 [facility] StationEosinophils (%) (Auto)2018-12-09 05:19:00 * Test Item Value Reference Range Interpretation Comments Eosinophils (%) (Auto) (test code = 713-8) 6.6 0.0-6.0 H [facility] StationBasophils (%) (Auto)2018-12-09 05:19:00* Test Item Value Reference Range Interpretation Comments Basophils (%) (Auto) (test code = 706-2) 0.9 0.0-1.0 [facility] StationIM GRANULOCYTES %2018-12-09 05:19:00* Test Item Value Reference Range Interpretation Comments IM GRANULOCYTES % (test code = IM GRANULOCYTES %) 0.3 0.0- 1.0 [facility] StationNeutrophils # (Auto)2018-12-09 05:19:00* Test Item Value Reference Range Interpretation Comments Neutrophils # (Auto) (test code = 751-8) 4.9 2.1-6.9 [facility] StationLymphocytes # (Auto)2018-12-09 05:19:00* Test Item Value Reference Range Interpretation Comments Lymphocytes # (Auto) (test code = 61793-0) 2.5 1.0-3.2 [facility] StationMonocytes # (Auto)2018-12-09 05:19:00* Test Item Value Reference Range Interpretation Comments Monocytes # (Auto) (test code = 742-7) 1.0 0.2-0.8 H [facility] StationEosinophils # (Auto)2018-12-09 05:19:00* Test Item Value Reference Range Interpretation Comments Eosinophils # (Auto) (test code = 711-2) 0.6 0.0-0.4 H [facility] StationBasophils # (Auto)2018-12-09 05:19:00* Test Item Value Reference Range Interpretation Comments Basophils # (Auto) (test code = 704-7) 0.1 0.0-0.1 [facility] StationAbsolute Immature Granulocyte (auto 2018-12-09 05:19:00* Test Item Value Reference Range Interpretation Comments Absolute Immature Granulocyte (auto (riley t code = Absolute Immature Granulocyte (auto) 0.03 0-0.1 [facility] StationCA Yuwinxi9077-68-63 11:29:00* Test Item Value Reference Range Interpretation Comments CA 19-9 Antigen (test code = 98187-8) 40 0-35 [facility] Electrochemiluminescence Immunoassay(ECLIA)Values obtained wit h different assay methods or kits cannotbe used interchangeably. Results cannot be interpreted asabsolute evidence of the presence or absence of malignantdisea se.Performed at: [address] [id number] Adult Protective Caseworker: John Paul Gómez MD, Phone: [phone] Scott & [facility] – College StationCA 19-9 Ysqabxo7003-07-29 11:29:00* Test Item Value Reference Range Interpretation Comments CA 19-9 Antigen (test code = 56521-6) 40 0-35 [facility] Electrochemiluminescence Immunoassay(ECLIA)Values obtained wit h different assay methods or kits cannotbe used interchangeably. Results cannot be interpreted asabsolute evidence of the presence or absence of malignantdisea se.Performed at: [address] [id number] Adult Protective Caseworker: John Paul Gómez MD, Phone: [phone] Scott & [facility] College StationTotal Kmgcpybvt1382-14-47 03:45:00* Test Item Value Reference Range Interpretation Comments Total Bilirubin (test code = 1975-2) 0.7 0.2-1.2 [facility] StationDirect Qwwtcavcs8449-69-16 03:45:00* Test Item Value Reference Range Interpretation Comments Direct Bilirubin (test code = 41935-2) 0.4 0.0-0.5 [facility] StationAspartate Amino Transf (AST/SGOT) 2018-12-06 03:45:00* Test Item Value Reference Range Interpretation Comments Aspartate Amino Transf (AST/SGOT) (test code = Aspartate Amino Transf (AST/SGOT)) 33 5-34 [facility] StationAlanine Aminotransferase (ALT/SGPT) 2018-12-06 03:45:00* Test Item Value Reference Range Interpretation Comments Alanine Aminotransferase (ALT/SGPT) (test code = 1742-6) 22 0-55 [facility] StationTotal Axgokmb0509-83-45 03:45:00* Test Item Value Reference Range Interpretation Comments Total Protein (test code = 2885-2) 6.3 6.5-8.1 L [facility] StationAlbumin2019-10-29 03:45:00* Test Item Value Reference Range Interpretation Comments Albumin (test code = 1751-7) 2.5 3.5-5.0 L [facility] StationAlkaline Ybhvpequfpu3320-46-85 03:45:00* Test Item Value Reference Range Interpretation Comments Alkaline Phosphatase (test code = 6768-6) 41 40-150 [facility] StationDirect Ftwxbxujo4105-67-82 03:45:00* Test Item Value Reference Range Interpretation Comments Direct Bilirubin (test code = 27955-0) 0.4 0.0-0.5 [facility] StationPlatelet Morphology Rinusoi1901-11-06 06:49:00* Test Item Value Reference Range Interpretation Comments Platelet Morphology Comment (test code = 84821-4) FEW LARGE [facility] StationRed Cell Morphology Iafjxfq9053-36-80 06:49:00* Test Item Value Reference Range Interpretation Comments Red Cell Morphology Comment (test code = 6742-1) NORMAL [facility] StationPlatelet Morphology Hzclmcv5450-88-81 06:49:00* Test Item Value Reference Range Interpretation Comments Platelet Morphology Comment (test code = 03692-8) FEW LARGE [facility] StationRed Cell Morphology Rzblbtd6272-10-94 06:49:00* Test Item Value Reference Range Interpretation Comments Red Cell Morphology Comment (test code = 6742-1) NORMAL [facility] StationCHEST XRAY LINE CFHOLIIIT2021-23-93 00:30:00 [facility] [address] [place] [address] Patient Name: ANKUR DEGROOT MR #: [id number] : 1955 Age/Sex: 63/M Req #: [id number] Adm Physician: CRISTY WINSTON MD Ordered by: CRISTY WINSTON MD Report #: [id number] Location: MED/SURG Room/Bed: [facility] Procedure: [id number] DX /CHEST XRAY LINE PLACEMENT Exam Date: 12/05/18 Exam Time: 0020 REPORT STATUS: Signed EXAMINATION: CHEST XRAY LINE PLACEMENT INDICATION: PICC placement, ve rify position COMPARISON: Abdominal CT 12/04/2018 FINDINGS: AP view TUBES and LINES: Left upper extremity PICC tip terminates in the cavoatrial junction.. LUNGS/PLEURA: Lungs are well inflated. The left h emidiaphragm is partly obscured, consistent with pleural effusion seen on day prior abdominal CT. Prominent pulmonary vasculature. No pneumothorax. HE ART AND MEDIASTINUM: The cardiomediastinal silhouette is mildly enlarged.. BONES AND SOFT TISSUES: No acute osseous lesion. Soft tissues are unr emarkable. Sternotomy wires intact. Healed nondisplaced left lower rib fractur es. UPPER ABDOMEN: No free air under the diaphragm. IMPRESSION: Left upper extremity PICC tip terminates in the cavoatrial junction. Mild cardiomegaly and pulmonary vascular congestion and small bilateral pleural eff usions. Signed by: Huy Colby DO on 12/05/2018 12:33 AM Dictate d By: HUY COLBY DO COPY TO: STEPHEN WINSTON MD CT ABDOMEN QP8095-93-61 16:37:00 [place] [address] Patient Name: ANKUR DEGROOT MR #: [id number] : 1955 Age/Sex: 63/M Req #: [id number] Adm Physician: CRISTY WINSTON MD Ordered by: EVANGELIST PATTEN MD Report #: [id number] Location: MED/SURG Room/Bed: [facility] Procedure: [id number] C T/CT ABDOMEN WO Exam Date: 12/04/18 Exam Time: 1530 REPORT STATUS: Signed EXAM: CT A bdomen WITHOUT contrast INDICATION: Pancreatitis with oral contrast only COMPARISON: KUB 12/03/2018, abdominal ultrasound 11/30/2018, CT a bdomen and pelvis 11/27/2018 TECHNIQUE: Abdomen was scanned utilizing a mult idetector helical scanner without administration of IV contrast. Absence of in travenous contrast decreases sensitivity for detection of focal lesions and va scular pathology. Coronal and sagittal reformations were obtained. Routine pro tocol was performed. IV CONTRAST: None. ORAL CONT RAST: Water RADIATION DOSE: Total DLP: 595.3 mGy*cm Estimated effective dose: (DLP x 0.015 x size factor) mSv COMPLIC ATIONS: None FINDINGS: LINES and TUBES: None. LOWER THORAX: [place] fl[place] of the ascending thoracic aorta (4.5 cm). Moderate coronary artery calcifi cations. Moderate calcifications of the aortic valve. Cardiomegaly. Interval d evelopment of a small bilateral pleural effusions with adjacent subsegmental a telectasis. Partially visualized median sternotomy. HEPATOBILIARY: Diffuse hepatic steatosis. No focal hepatic lesions. No biliary ductal dilation. GALLBLADDER: No radio-opaque stones or sludge. Persistent circumferential wall thickening of the gallbladder likely due to hypoproteinemia. SPLEEN: No splenomegaly. PANCREAS: Improved fat stranding surrounding the pancreatic head, however, there has been interval development of moderate fat stranding surrounding the distal pancreatic body and tail. No pseudocyst, fluid collecti on, pancreatic microcystic, or abscess. No dilatation of the pancreatic duct. Persistent few calcifications in the pancreatic head. ADRENALS: No adren al nodules KIDNEYS/URETERS: No hydronephrosis. No cystic or solid mass lesions. Unchanged nonobstructing right renal stone. GI TRACT: No abnor mal distention, wall thickening, or evidence of bowel obstruction of the parti ally visualized bowel. LYMPH NODES: Few mesenteric subcentimeter lym ph nodes are unchanged and likely reactive. VESSELS: Unremarkable. P ERITONEUM / RETROPERITONEUM: No free air or fluid. BONES: Multilevel degene rative changes of the lumbar spine. Partial visualized median sternotomy wires . SOFT TISSUES: Unremarkable. IMPRESSION: 1. Improv ing pancreatitis around the pancreatic head but interval development of inflam matory changes surrounding the distal body and tail. No pseudocyst, fluid sol ection, or pancreatic necrosis. 2. Persistent gallbladder wall thickening which may reflect hypoproteinemia. Differential diagnosis includes acalculus c holecystitis. 3. New small bilateral pleural effusions likely related to p ancreatitis. Signed by: Dr. Lizbet Ruvalcaba M.D. on 12/04/2018 4:4 4 PM Dictated By: LIZBET RUVALCABA MD 43 Transcribed By: MAGALY on 12/04/181643 COPY TO: EVANGELIST PATTEN MD Differential Total Cells Counted 2018-12-04 06:31:00* Test Item Value Reference Range Interpretation Comments Differential Total Cells Counted (test code = Differen tial Total Cells Counted) 100 [facility] StationNeutrophils % (Manual)2018-12-04 06:31:00 * Test Item Value Reference Range Interpretation Comments Neutrophils % (Manual) (test code = 61872-6) 68 40-74 [facility] StationLymphocytes % (Manual)2018-12-04 06:31:00 * Test Item Value Reference Range Interpretation Comments Lymphocytes % (Manual) (test code = 737-7) 12 19-48 L [facility] StationMonocytes % (Manual)2018-12-04 06:31:00* Test Item Value Reference Range Interpretation Comments Monocytes % (Manual) (test code = 744-3) 15 3.4-9.0 [facility] [facility] StationEosinophils % (Manual)2018-12-04 06:31:00 * Test Item Value Reference Range Interpretation Comments Eosinophils % (Manual) (test code = 714-6) 3 0-7 [facility] StationBasophils % (Manual)2018-12-04 06:31:00* Test Item Value Reference Range Interpretation Comments Basophils % (Manual) (test code = 31274-8) 1 0-1.5 [facility] StationReactive Wiidserjgtc6001-11-32 06:31:00* Test Item Value Reference Range Interpretation Comments Reactive Lymphocytes (test code = 31838-3) 1 [facility] StationPlatelet Lmmaxzvi0923-43-13 06:31:00* Test Item Value Reference Range Interpretation Comments Platelet Estimate (test code = 00260-1) ADEQUATE [facility] StationDifferential Total Cells Counted 2018-12-04 06:31:00* Test Item Value Reference Range Interpretation Comments Differential Total Cells Counted (test code = Differen tial Total Cells Counted) 100 [facility] StationNeutrophils % (Manual)2018-12-04 06:31:00 * Test Item Value Reference Range Interpretation Comments Neutrophils % (Manual) (test code = 79794-8) 68 40-74 [facility] StationLymphocytes % (Manual)2018-12-04 06:31:00 * Test Item Value Reference Range Interpretation Comments Lymphocytes % (Manual) (test code = 737-7) 12 19-48 L [facility] StationMonocytes % (Manual)2018-12-04 06:31:00* Test Item Value Reference Range Interpretation Comments Monocytes % (Manual) (test code = 744-3) 15 3.4-9.0 H [facility] StationEosinophils % (Manual)2018-12-04 06:31:00 * Test Item Value Reference Range Interpretation Comments Eosinophils % (Manual) (test code = 714-6) 3 0-7 [facility] StationBasophils % (Manual)2018-12-04 06:31:00* Test Item Value Reference Range Interpretation Comments Basophils % (Manual) (test code = 99239-7) 1 0-1.5 [facility] StationReactive Qbwnfbcirbo8012-22-04 06:31:00* Test Item Value Reference Range Interpretation Comments Reactive Lymphocytes (test code = 76276-6) 1 [facility] StationPlatelet Hysmwhme6657-89-88 06:31:00* Test Item Value Reference Range Interpretation Comments Platelet Estimate (test code = 19330-9) ADEQUATE [facility] StationABDOMEN-1VIEW (KUB)2018-12-03 12:55:00 [facility] [address] [address] Patient Name: ANKUR DEGROOT MR #: [id number] : 1955 Age/Sex: 63/M Req #: [id number] Adm Physician: CRISTY WINSTON MD Ordered by: CHLOE PADILLA MD Report #: [id number] Location: MED/SURG Room/Bed: [facility] Procedure: [id number] DX/ABDOMEN-1VIEW ([facility]) Exam Date: 12/03/18 Exam Time : 1100 REPORT STATUS: Signed EXA M: Abdomen 2 radiographs INDICATION: ABD PAIN [id number] 1100 Y COMPARISON: CT dated 11/27/2018 FINDINGS: Nonobstructive bowel g as pattern. No signs of pneumoperitoneum. No acute osseous abnormality. Pelv ic calcification, representing bladder calculus, seen on prior CT. Lung bases showed enlarged cardiac silhouette with partially seen median sternotomy wires and mediastinal surgical clips. Left lung basilar subsegmental atelectasis/sc arring. 4 mm right renal inferior pole calculus. IMPRESSION: 1. Non obstructive bowel gas pattern. No evidence of pneumoperitoneum. 2. Subcentime ter nonobstructive right renal calculus. 3. Bladder calculus. Signed by: Dr. Alvino Soto MD on 12/03/2018 12:59 PM Dictated By: ALVINO SOTO MD 58 Transcribed By: MAGALY on 12/03/181258 COPY TO: CHLOE PADILLA MD Blood Dxbiasm1397-34-77 07:00:00* Test Item Value Reference Range Interpretation Comments Blood Culture (test code = 99426185) NO GROWTH AFTER 5 DAYS, FINAL REPORT [facility] StationBlood Yuzwsln7740-26-45 07:00:00* Test Item Value Reference Range Interpretation Comments Blood Culture (test code = 85803351) NO GROWTH AFTER 5 DAYS, FINAL REPORT [facility] StationGlobulin2019-10-26 06:50:00* Test Item Value Reference Range Interpretation Comments Globulin (test code = 11136-6) 3.8 2.3-3.5 H [facility] StationAlbumin/Globulin Xvtcs4712-31-75 06:50:00 * Test Item Value Reference Range Interpretation Comments Albumin/Globulin Ratio (test code = 1759-0) 0.6 0.8-2.0 L [facility] StationClostridium Difficile Toxin A & B 2018-12-02 13:04:00* Test Item Value Reference Range Interpretation Comments Clostridium Difficile Toxin A & B (test code = 373801315) NEGATIVE NEGATIVE Testing on stool aspirate specimens is outside library information technician claims since specime n type not validated on this assay.[facility] Clostridium Difficile Toxin A & D4178-95-63 13:04:00* Test Item Value Reference Range Interpretation Comments Clostridium Difficile Toxin A & B (test code = 311136306) NEGATIVE NEGATIVE Testing on stool aspirate specimens is outside library information technician claims since specime n type not validated on this assay.[facility] Hlkwmuyxhcba4567-47-02 10:55:00* Test Item Value Reference Range Interpretation Comments Anisocytosis (test code = 702-1) SLIGHT [facility] StationAnisocytosis2019-10-25 10:55:00* Test Item Value Reference Range Interpretation Comments Anisocytosis (test code = 702-1) SLIGHT [facility] StationUS ABDOMEN XLCYPZEI1111-11-78 10:41:00 [facility] [address] [address] Patient Name: ANKUR DEGROOT MR #: [id number] : 1955 Age/Sex: 63/M Req #: [id number] Adm Physician: CRISTY WINSTON MD Ordered by: GINO WALL MD Report #: [id number] Location: MED/SURG Room/Bed: [facility] Procedure: 1023-00 01 US/US ABDOMEN COMPLETE Exam Date: 11/30/18 Exam T storm: 0859 REPORT STATUS: Signed Abdominal ultrasound. History: Abdominal pain. Comparison: CT . Discussion: Transverse and longitudinal images of the abdomen wer e obtained demonstrating a liver of normal size but diffusely increased echoge nicity measuring 16.7 cm in length. There is no focal hepatic abnormality. The portal vein is patent with hepatopetal flow and is within normal limits measu ring 8 mm in diameter. The biliary tree is within normal limi ts with the common bile duct measuring 5 mm in diameter. The gallbladder is no rmal without evidence of stones, wall thickening, or pericholecystic fluid. Th e sonographic Guerrero's sign was negative. The kidneys are norm al in size and echogenicity bilaterally without evidence of hydronephrosis or mass. Punctate calcification is are noted in the right kidney. The right kidne y measures 11.3 cm and the left kidney measures 11.7 cm in length. The s pleen is absent. The pancreas, IVC, and aorta were obscured by overlying alena l gas. There is no evidence of free fluid. Incidental note is made of a la rge cm stone within the bladder. IMPRESSION: 1. Fatty infiltration of the liver. 2. No evidence of cholelithiasis. 3. Bladder stone. Signed by: Aakash Andrade on 11/30/2018 10:45 AM Dictated By: AAKASH ANDRADE MD 1045 Transcr ibed By: MAGALY on 11/30/18 1045 COPY TO: GINO WALL MD Amylase Eiiey0152-55-88 07:56:00* Test Item Value Reference Range Interpretation Comments Amylase Level (test code = 1798-8) 172 25-125 H [facility] StationPhosphorus Uauja4576-26-73 07:32:00* Test Item Value Reference Range Interpretation Comments Phosphorus Level (test code = AWI3220) 2.0 2.3-4.7 L [facility] StationPhosphorus Xllwy2437-39-23 07:32:00* Test Item Value Reference Range Interpretation Comments Phosphorus Level (test code = OHJ5649) 2.0 2.3-4.7 L [facility] StationThyroid Stimulating Hormone (TSH) 2018-11-29 08:09:00* Test Item Value Reference Range Interpretation Comments Thyroid Stimulating Hormone (TSH) (test code = 17276-7) 0.764 0.350-4.940 [facility] StationHemoglobin A1c Azfhvmb1565-02-74 07:39:00 * Test Item Value Reference Range Interpretation Comments Hemoglobin A1c Percent (test code = Hemoglobin A1c Percent) 5.3 4.0-7.0 [facility] StationHemoglobin A1c Ytnyqeo0828-17-84 07:39:00 * Test Item Value Reference Range Interpretation Comments Hemoglobin A1c Percent (test code = Hemoglobin A1c Percent) 5.3 4.0-7.0 [facility] StationUrine DGJ9333-80-98 16:20:00* Test Item Value Reference Range Interpretation Comments Urine WBC (test code = 5821-4) NONE 0-5 [facility] StationUrine LAH4937-91-83 16:20:00* Test Item Value Reference Range Interpretation Comments Urine RBC (test code = 49449-6) 0-5 0-5 [facility] StationUrine Dvdrswzh9069-44-62 16:20:00* Test Item Value Reference Range Interpretation Comments Urine Bacteria (test code = 88351-8) NONE NONE [facility] StationUrine Epithelial Wwqzy6667-16-17 16:20:00 * Test Item Value Reference Range Interpretation Comments Urine Epithelial Cells (test code = 65735-4) FEW NONE [facility] StationUrine LSJ5772-89-03 16:20:00* Test Item Value Reference Range Interpretation Comments Urine WBC (test code = 5821-4) NONE 0-5 [facility] StationUrine QZF2450-35-92 16:20:00* Test Item Value Reference Range Interpretation Comments Urine RBC (test code = 08217-0) 0-5 0-5 [facility] StationUrine Geprtqen5097-50-75 16:20:00* Test Item Value Reference Range Interpretation Comments Urine Bacteria (test code = 35070-1) NONE NONE [facility] StationUrine Epithelial Jikft0223-29-96 16:20:00 * Test Item Value Reference Range Interpretation Comments Urine Epithelial Cells (test code = 87739-4) FEW NONE [facility] StationUrine Ziyth2757-20-58 16:12:00* Test Item Value Reference Range Interpretation Comments Urine Color (test code = 5778-6) STRAW YELLOW [facility] StationUrine Gphtnsa2692-49-29 16:12:00* Test Item Value Reference Range Interpretation Comments Urine Clarity (test code = 13109-4) SL CLOUDY CLEAR H [facility] StationUrine Specific Ipladee2490-89-01 16:12:00 * Test Item Value Reference Range Interpretation Comments Urine Specific [place] (test code = 5811-5) 1.025 1.010-1.02 5 [facility] StationUrine hH9083-95-98 16:12:00* Test Item Value Reference Range Interpretation Comments Urine pH (test code = 12152-8) 6 5-7 [facility] StationU[facility] Leukocyte Uywvebls0596-77-65 16:12:00* Test Item Value Reference Range Interpretation Comments Urine Leukocyte Esterase (test code = 70876-8) NEGATIVE NEGATIV E [facility] StationUrine Kawvsim5102-71-84 16:12:00* Test Item Value Reference Range Interpretation Comments Urine Nitrite (test code = 84424-5) NEGATIVE NEGATIVE [facility] StationUrine Tjbbqwe8039-93-76 16:12:00* Test Item Value Reference Range Interpretation Comments Urine Protein (test code = 87885-8) NEGATIVE NEGATIVE [facility] StationUrine Glucose (UA)2018-11-28 16:12:00* Test Item Value Reference Range Interpretation Comments Urine Glucose (UA) (test code = 42438-4) NEGATIVE NEGATIVE [facility] StationUrine Dxofchn7550-71-91 16:12:00* Test Item Value Reference Range Interpretation Comments Urine Ketones (test code = 38372-9) NEGATIVE NEGATIVE [facility] StationUrine Qfoiplpbcetb3259-02-51 16:12:00* Test Item Value Reference Range Interpretation Comments Urine Urobilinogen (test code = 16612-2) 0.2 0.2-1 [facility] StationUrine Imulafqye6970-06-44 16:12:00* Test Item Value Reference Range Interpretation Comments Urine Bilirubin (test code = 1977-8) NEGATIVE NEGATIVE [facility] StationUrine Gvpqy5994-91-60 16:12:00* Test Item Value Reference Range Interpretation Comments Urine Blood (test code = 13186-2) 1+ NEGATIVE [facility] StationUrine Qafcz5925-53-02 16:12:00* Test Item Value Reference Range Interpretation Comments Urine Color (test code = 5778-6) STRAW YELLOW [facility] StationUrine Kshwesz4090-59-56 16:12:00* Test Item Value Reference Range Interpretation Comments Urine Clarity (test code = 24846-7) SL CLOUDY CLEAR H [facility] StationUrine Specific Alqfrva8636-47-56 16:12:00 * Test Item Value Reference Range Interpretation Comments Urine Specific [place] (test code = 5811-5) 1.025 1.010-1.02 5 [facility] StationUrine hL4626-94-38 16:12:00* Test Item Value Reference Range Interpretation Comments Urine pH (test code = 07638-7) 6 5-7 [facility] StationUrine Leukocyte Othyfvka7293-67-85 16:12:00* Test Item Value Reference Range Interpretation Comments Urine Leukocyte Esterase (test code = 81353-5) NEGATIVE NEGATIV E [facility] StationUrine Ybaxfaa0856-91-86 16:12:00* Test Item Value Reference Range Interpretation Comments Urine Nitrite (test code = 61454-3) NEGATIVE NEGATIVE [facility] StationUrine Abronll0957-42-52 16:12:00* Test Item Value Reference Range Interpretation Comments Urine Protein (test code = 99555-3) NEGATIVE NEGATIVE [facility] StationUrine Glucose (UA)2018-11-28 16:12:00* Test Item Value Reference Range Interpretation Comments Urine Glucose (UA) (test code = 23547-2) NEGATIVE NEGATIVE [facility] StationUrine Ifourbh7587-94-64 16:12:00* Test Item Value Reference Range Interpretation Comments Urine Ketones (test code = 60350-1) NEGATIVE NEGATIVE [facility] StationUrine Jqqkpoyvpsit5540-50-93 16:12:00* Test Item Value Reference Range Interpretation Comments Urine Urobilinogen (test code = 35366-0) 0.2 0.2-1 [facility] StationU[facility] Ndzsxcfmj8840-33-79 16:12:00* Test Item Value Reference Range Interpretation Comments Urine Bilirubin (test code = 1977-8) NEGATIVE NEGATIVE [facility] StationUrine Qoyvb3422-62-85 16:12:00* Test Item Value Reference Range Interpretation Comments Urine Blood (test code = 24372-5) 1+ NEGATIVE [facility] StationCreatine Iqumfi8808-40-92 15:00:00* Test Item Value Reference Range Interpretation Comments Creatine Kinase (test code = 2157-6) 27 30-200 L [facility] StationCreatine Kinase QJ6579-73-76 15:00:00* Test Item Value Reference Range Interpretation Comments Creatine Kinase MB (test code = 24813-7) 2.10 0-5.0 [facility] StationTroponin [id number] 15:00:00* Test Item Value Reference Range Interpretation Comments Troponin I (test code = MGI8500) 0.030 0-0.300 [facility] StationCT ABDOMEN/PELVIS [id number] 18:16:00 [facility] [address] [address] Patient Name: ANKUR DEGROOT MR #: [id number] : 1955 Age/Sex: 63/M Req #: [id number] Adm Physician: Ordered by: THAO LY MD Report #: [id number] Location: ER Room/Bed: Procedure: [id number] CT/ CT ABDOMEN/PELVIS WO Exam Date: 11/27/18 Exam Time: 1730 REPORT STATUS: Signed EXAM: CT of the abdomen and pelvis WITHOUT contrast HISTORY: Right lower quadr ant, abdominal pain, possible infection, history of CABG, splenectomy, kidney stones, coronary artery disease COMPARISON: None available. TECHNIQUE: The abdomen and pelvis were scanned utilizing a multidetector helical scanner. Coronal and sagittal reformats are available. PROTOCOL: Rou trudy IV CONTRAST: None, which limits sensitivity and specificity of evaluation of the soft tissues and vascular structures. ORAL CONTRAST: None, which limits sensitivity and specificity of evaluation of the bowel. RADIATION DOSE: Total DLP: 834.33 mGy*cm Estimated effective dose: (DLP x 0.015 x size factor) Dose modulation, iterative reconstruction, and/or weight based adjustment of the mA/kV was ut ilized to reduce the radiation dose to as low as reasonably achievable. COMPLICATIONS: None FINDINGS: LOWER THORAX: Mild global cardio megaly. Mild dependent atelectasis. HEPATOBILIARY: Stable small hypod ensities in the liver, statistically most likely small cysts. No biliary dilat ion. No calcified gallstone. SPLEEN: Status post splenectomy, stable small s plenules. PANCREAS: Persistent calcifications in the head of the pancreas. Prominent fat stranding about the head of the pancreas, without a fluid colle ction. Enhancement characteristics cannot be assessed. Evaluation of the under lying parenchyma is markedly limited. ADRENALS: No adrenal nodule. KIDNEY S/URETERS: Bilateral nonobstructing calcifications, the largest near the infe rior pole the right kidney measures 3 mm. No hydronephrosis. PELVIC ORG ANS/BLADDER: A 2.1 cm lobulated calcification within the urinary bladder. PERITONEUM / RETROPERITONEUM: No free air or fluid. GI TRACT: On limited arik luation of the gastrointestinal tract, no dilation or wall thickening identifi ed. The appendix appears normal. LYMPH NODES: No pathologically enlarg ed lymph nodes. VESSELS: Scattered atherosclerotic vascular calcificatio ns, including the coronary arteries. The infrarenal abdominal aorta measur es up to 3.3 cm. BONES and JOINTS: Coarse trabeculation and suggestion of mild enlargement of the visualized proximal left femur. SOFT TISSUES: Unrema rkable. IMPRESSION: 1. Findings compatible with pancreatitis, consider acute on chronic pancreatitis. 2. Stable urinary bladder calculus. 3. St able 3.3 cm infrarenal abdominal aortic aneurysm. 4. Coronary atherosclerosis . 5. 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 Signed by: Dr. Gulshan Kerr D.O., M.M.M. on 11/27/2018 6:28 PM Di ctated By: GULSHAN KERR DO 27 Transcribed By: MAGALY on 11/27/181827 COPY TO: THAO LY MD B-Type Natriuretic Dexsvao0300-48-02 17:05:00* Test Item Value Reference Range Interpretation Comments B-Type Natriuretic Peptide (test code = 69471-2) 130.7 0-100 H [facility] SINGLE (PORTABLE)2018-11-27 16:49:[address] [address] Patient Name: ANKUR DEGROOT MR #: [id number] : 1955 Age/Sex: 63/M Req #: [id number] Adm Physician: Ordered by: THAO LY MD Report #: [id number] Location: ER Room/Bed: Procedure: [id number] DX/ CHEST SINGLE (PORTABLE) Exam Date: 11/27/18 Exam John e: 1634 REPORT STATUS: Signed A single frontal view of the chest. HISTORY: Chest pain COMPARISON: None available. DISCUSSION: Portable technique, limits sensitivity of th e exam. Soft tissue attenuation partially limits sensitivity of the exam. Ov erlying artifacts. Tubes/Lines: None Lungs and pleura: Low lung volu mes result in bibasilar vascular crowding, accentuation of the pulmonary inter stitial markings, central pulmonary vasculature, and the cardiac silhouette. Allowing for these limitations, the findings are as follows: No evidence of a consolidative pneumonia or pulmonary alveolar edema. No definite pleural eff usion or pneumothorax is identified. Heart and mediastinum: The cardiom ediastinal silhouette appear(s) unremarkable. Bones and soft tissues: M ultiple median sternotomy wires. IMPRESSION: No acute radiographic abnormality. Signed by: Marina ClementeO., M.M.M. on 2018 4:50 PM Dictated By: GULSHAN KERR DO 49 Transcribed By: MAGALY on 11/27/181649 COPY TO: THAO LY MD Prothrombin Vbqo4563-93-63 16:34:00* Test Item Value Reference Range Interpretation Comments Prothrombin Time (test code = 5902-2) 13.4 11.9-14.5 [facility] StationProthromb Time International Ratio 2018-11-27 16:34:00* Test Item Value Reference Range Interpretation Comments Prothromb Time International Ratio (test code = 6301-6) 0.97 Oral Anticoagulant Therapy INR Values:1. Low Intensity Therapy 1.5 - 2.02 . Moderate Intensity Therapy 2.0 - 3.03. High Intensity Therapy(1) 2.5 - 3. 54. High Intensity Therapy(2) 3.0 - 4.05. Panic Value INR > 5.0 [facility] StationActivated Partial Thromboplast Time 2018-11-27 16:34:00* Test Item Value Reference Range Interpretation Comments Activated Partial Thromboplast Time (test code = 07723-3) 27.3 23.8-35.5 [facility] StationGLUBED2019-10-04 17:08:00* Test Item Value Reference Range Interpretation Comments GLUBED (test code = GLUBED) 149 mg/dL 74-106 H Performed by certified flat grinder operator at [facility] CBC W/AUTO [id number] 08:45:00* Test Item Value Reference Range Interpretation Comments WHITE BLOOD CELL (test code = WBC) 7.2 K/mm3 4.5-12.5 N RED BLOOD CELL (test code = RBC) 4.24 mill/mm3 4.0-5.8 N HEMOGLOBIN (test code = HGB) 15.0 gram/dL 13.0-17.5 N HEMATOCRIT (test code = HCT) 45.2 % 42.0-52.0 N MEAN CELL VOLUME (test code = MCV) 106.6 fL 80-98 H MEAN CELL HGB (test code = MCH) 35.4 picogram 27.0-33.0 H MEAN CELL HGB CONCETRATION (test code = MCHC) 33.2 gram/dL 33.0-36. 0 N RED CELL DISTRIBUTION WIDTH (test code = RDW) 14.4 % 11.6-16. 2 N RED CELL DISTRIBUTION WIDTH SD (test code = RDW-SD) 56.5 fL 37 .0-51.0 H PLATELET COUNT (test code = PLT) 182 K/mm3 150-450 N MEAN PLATELET VOLUME (test code = MPV) 9.9 fL 6.7-11.0 N NEUTROPHIL % (test code = NT%) 33.4 % 39.0-69.0 L IMMATURE GRANULOCYTE % (test code = IG%) 0.4 % 0.0-5.0 N LYMPHOCYTE % (test code = LY%) 40.4 % 25.0-55.0 N MONOCYTE % (test code = MO%) 15.8 % 0.0-10.0 H EOSINOPHIL % (test code = EO%) 8.3 % 0.0-5.0 H BASOPHIL % (test code = BA%) 1.7 % 0.0-1.0 H NUCLEATED RBC % (test code = NRBC%) 0.0 % 0-0 N NEUTROPHIL # (test code = NT#) 2.41 K/mm3 1.8-7.7 N IMMATURE GRANULOCYTE # (test code = IG#) 0.03 x10 3/uL 0-0.03 N LYMPHOCYTE # (test code = LY#) 2.92 K/mm3 1.0-5.0 N MONOCYTE # (test code = MO#) 1.14 K/mm3 0-0.8 H EOSINOPHIL # (test code = EO#) 0.60 K/mm3 0.0-0.5 H BASOPHIL # (test code = BA#) 0.12 K/mm3 0.0-0.2 N NUCLEATED RBC # (test code = NRBC#) 0.00 K/mm3 0.0-0.1 N CBC W/AUTO [id number] 08:44:00* Test Item Value Reference Range Interpretation Comments WHITE BLOOD CELL (test code = WBC) K/mm3 4.5-12.5 RED BLOOD CELL (test code = RBC) mill/mm3 4.0-5.8 HEMOGLOBIN (test code = HGB) 15.0 gram/dL 13.0-17.5 N HEMATOCRIT (test code = HCT) 45.2 % 42.0-52.0 N MEAN CELL VOLUME (test code = MCV) fL 80-98 MEAN CELL HGB (test code = MCH) picogram 27.0-33.0 MEAN CELL HGB CONCETRATION (test code = MCHC) gram/dL 33.0-36. 0 RED CELL DISTRIBUTION WIDTH (test code = RDW) % 11.6-16. 2 RED CELL DISTRIBUTION WIDTH SD (test code = RDW-SD) fL 37 .0-51.0 PLATELET COUNT (test code = PLT) K/mm3 150-450 MEAN PLATELET VOLUME (test code = MPV) fL 6.7-11.0 NEUTROPHIL % (test code = NT%) % 39.0-69.0 IMMATURE GRANULOCYTE % (test code = IG%) % 0.0-5.0 LYMPHOCYTE % (test code = LY%) % 25.0-55.0 MONOCYTE % (test code = MO%) % 0.0-10.0 EOSINOPHIL % (test code = EO%) % 0.0-5.0 BASOPHIL % (test code = BA%) % 0.0-1.0 NEUTROPHIL # (test code = NT#) K/mm3 1.8-7.7 LYMPHOCYTE # (test code = LY#) K/mm3 1.0-5.0 MONOCYTE # (test code = MO#) K/mm3 0-0.8 EOSINOPHIL # (test code = EO#) K/mm3 0.0-0.5 BASOPHIL # (test code = BA#) K/mm3 0.0-0.2 COMPREHENSIVE METABOLIC [id number] 08:44:00* Test Item Value Reference Range Interpretation Comments SODIUM (test code = NA) 142 mmol/L 136-145 N POTASSIUM (test code = K) 4.4 mmol/L 3.5-5.1 N CHLORIDE (test code = CL) 108.0 mmol/L 98-107 H CARBON DIOXIDE (test code = CO2) 25.0 mmol/L 21-32 N ANION GAP (test code = GAP) 13.4 10-20 N GLUCOSE (test code = GLU) 104 mg/dL 74-106 N BLOOD UREA NITROGEN (test code = BUN) 20 mg/dL 7-18 H GLOMERULAR FILTRATION RATE (test code = GFR) 44 mL/min >=60 Estimated GFR by using Modified MDRD formula.Chronic kidney disease is defined as either kidney damageor GFR <60 mL/min/1.73 m2 for >3 months. CREATININE (test code = CREAT) 1.60 mg/dL 0.7-1.3 H BUN/CREATININE RATIO (test code = BUN/CREA) 12.7 10-20 N TOTAL PROTEIN (test code = PROT) 6.8 gram/dL 6.4-8.2 N ALBUMIN (test code = ALB) 3.1 g/dL 3.4-5.0 L GLOBULIN (test code = GLOB) 3.7 gram/dL 2.7-4.2 N ALBUMIN/GLOBULIN RATIO (test code = A/G) 0.8 0.75-1.50 N CALCIUM (test code = CA) 8.6 mg/dL 8.5-10.1 N BILIRUBIN TOTAL (test code = BILT) 0.70 mg/dL 0.0-1.0 N SGOT/AST (test code = AST) 34 IUnit/L 15-37 N SGPT/ALT (test code = ALT) 39 IUnit/L 12-78 N ALKALINE PHOSPHATASE TOTAL (test code = ALKP) 60 IUnit/L 45-117 N Note change in reference range due to change in reagent. COMPREHENSIVE METABOLIC [id number] 08:37:00* Test Item Value Reference Range Interpretation Comments SODIUM (test code = NA) 142 mmol/L 136-145 N POTASSIUM (test code = K) 4.4 mmol/L 3.5-5.1 N CHLORIDE (test code = CL) 108.0 mmol/L 98-107 H CARBON DIOXIDE (test code = CO2) mmol/L 21-32 ANION GAP (test code = GAP) 10-20 GLUCOSE (test code = GLU) mg/dL 74-106 BLOOD UREA NITROGEN (test code = BUN) mg/dL 7-18 GLOMERULAR FILTRATION RATE (test code = GFR) mL/min >=60 CREATININE (test code = CREAT) mg/dL 0.7-1.3 BUN/CREATININE RATIO (test code = BUN/CREA) 10-20 TOTAL PROTEIN (test code = PROT) gram/dL 6.4-8.2 ALBUMIN (test code = ALB) g/dL 3.4-5.0 GLOBULIN (test code = GLOB) gram/dL 2.7-4.2 ALBUMIN/GLOBULIN RATIO (test code = A/G) 0.75-1.50 CALCIUM (test code = CA) mg/dL 8.5-10.1 BILIRUBIN TOTAL (test code = BILT) mg/dL 0.0-1.0 SGOT/AST (test code = AST) IUnit/L 15-37 SGPT/ALT (test code = ALT) IUnit/L 12-78 ALKALINE PHOSPHATASE TOTAL (test code = ALKP) IUnit/L 45-117 [id number] 06:09:00* Test Item Value Reference Range Interpretation Comments GLUBED (test code = GLUBED) 119 mg/dL 74-106 H Performed by certified flat grinder operator at [facility] [id number] 21:00:00* Test Item Value Reference Range Interpretation Comments GLUBED (test code = GLUBED) 113 mg/dL 74-106 H Performed by certified flat grinder operator at [facility] [id number] 16:23:00* Test Item Value Reference Range Interpretation Comments GLUBED (test code = GLUBED) 135 mg/dL 74-106 H Performed by certified flat grinder operator at [facility] [id number] 12:56:00* Test Item Value Reference Range Interpretation Comments GLUBED (test code = GLUBED) 99 mg/dL 74-106 N Performed by certified flat grinder operator at [facility] [id number] 07:51:00* Test Item Value Reference Range Interpretation Comments GLUBED (test code = GLUBED) 126 mg/dL 74-106 H Performed by certified flat grinder operator at [facility] COMPREHENSIVE METABOLIC [id number] 10:02:00* Test Item Value Reference Range Interpretation Comments SODIUM (test code = NA) 139 mmol/L 136-145 N POTASSIUM (test code = K) 4.4 mmol/L 3.5-5.1 N CHLORIDE (test code = CL) 104.0 mmol/L 98-107 N CARBON DIOXIDE (test code = CO2) 29.0 mmol/L 21-32 N ANION GAP (test code = GAP) 10.4 10-20 N GLUCOSE (test code = GLU) 124 mg/dL 74-106 H BLOOD UREA NITROGEN (test code = BUN) 21 mg/dL 7-18 H GLOMERULAR FILTRATION RATE (test code = GFR) 38 mL/min >=60 Estimated GFR by using Modified MDRD formula.Chronic kidney disease is defined as either kidney damageor GFR <60 mL/min/1.73 m2 for >3 months. CREATININE (test code = CREAT) 1.80 mg/dL 0.7-1.3 H BUN/CREATININE RATIO (test code = BUN/CREA) 11.7 10-20 N TOTAL PROTEIN (test code = PROT) 8.3 gram/dL 6.4-8.2 H ALBUMIN (test code = ALB) 3.9 g/dL 3.4-5.0 N GLOBULIN (test code = GLOB) 4.4 gram/dL 2.7-4.2 H ALBUMIN/GLOBULIN RATIO (test code = A/G) 0.9 0.75-1.50 N CALCIUM (test code = CA) 9.1 mg/dL 8.5-10.1 N BILIRUBIN TOTAL (test code = BILT) 0.80 mg/dL 0.0-1.0 N SGOT/AST (test code = AST) 42 IUnit/L 15-37 H SGPT/ALT (test code = ALT) 50 IUnit/L 12-78 N ALKALINE PHOSPHATASE TOTAL (test code = ALKP) 61 IUnit/L 45-117 N Note change in reference range due to change in reagent. LIPID PROFILE (CORONARY RISK)2018-11-09 10:02:00* Test Item Value Reference Range Interpretation Comments TRIGLYCERIDES (test code = TRIG) 71 mg/dL 20-150 N CHOLESTEROL (test code = CHOL) 198 mg/dL 0-200 N CHOLESTEROL/HDL RATIO (test code = CHOLHDL) 2.0 RATIO 0-4.9 N RISK ASSOCIATED WITH CHOL/HDL RATIOS: Risk Male Female1/2 AVERAGE 3.43 3.27AVERAGE 4.97 4.442X AVERAGE 9.55 7.053X AVERAGE 23.39 11.04 REFERENCE VALUE IS RELATED TO RISK LEVELS ASRECOMMENDED BY THE [facility]. HEART, LUNG, AND BLOOD INST. HDL CHOLESTEROL (test code = HDL) 75 mg/dL 40-60 H LIPOPROTEIN LDL (test code = LDL) 107 mg/dL 100-129 N RN PERSONNEL, CONTACT PHYSICIAN IMMEDIATELY IF THIS IS A STROKE, AMI OR CAROTID STENOSIS PATIENT WHEN THE LDL >100 (1ST OCCURENCE, THIS ADMISSION) Reference Interval: mg/dL mmol/L Optimal <100 <2.6Near/above optimal 100-129 2.6- 3.3Borderline High 130-159 3.4-4.1High 160-189 4.1-4.9Very High >=190 >=4.9========= This LDL result is a direct measurement.========= THYROID STIMULATING [id number] 10:02:00* Test Item Value Reference Range Interpretation Comments THYROID STIMULATING HORMONE (test code = TSH) 1.280 uIU/mL 0.36-3.7 4 N TSH REFERENCE RANGES: EUTHYROID: 0.35 - 4.3 mIU/mL HYPO : > 5.5 mIU/mL HYPER : < 0.35 mIU/mL PROTHROMBIN [id number] 09:51:00* Test Item Value Reference Range Interpretation Comments PROTHROMBIN TIME PATIENT (test code = PTP) 11.1 seconds 9.0-14.0 N INTERNATIONAL NORMAL RATIO (test code = INR) 0.9 0.8-1.2 N The therapeutic range for oral anticoagulant therapy formost indications is an international normalized ratio (INR)of between 2.0 and 3.0. The recommended therapeutic INRrange for various clinical situations is listed below: Clinical Situation INR range Pulmonary e mbolism treatment (2.0-3.0)Venous thrombosis treatmentVenous thrombosis prophylaxis (high risk surgery)Prevention of systemic embolism from: Acute myocardial infarction Valvular heart disease Atrial fibrillation Mechanical prosthetic heart valves (2.5-3.5) THROMBOPLASTIN TIME [id number] 09:51:00* Test Item Value Reference Range Interpretation Comments THROMBOPLASTIN TIME PARTIAL (test code = PTT) 33.0 seconds 25.0-36. 5 N COMPREHENSIVE METABOLIC [id number] 09:47:00* Test Item Value Reference Range Interpretation Comments SODIUM (test code = NA) 139 mmol/L 136-145 N POTASSIUM (test code = K) 4.4 mmol/L 3.5-5.1 N CHLORIDE (test code = CL) 104.0 mmol/L 98-107 N CARBON DIOXIDE (test code = CO2) mmol/L 21-32 ANION GAP (test code = GAP) 10-20 GLUCOSE (test code = GLU) mg/dL 74-106 BLOOD UREA NITROGEN (test code = BUN) mg/dL 7-18 GLOMERULAR FILTRATION RATE (test code = GFR) mL/min >=60 CREATININE (test code = CREAT) mg/dL 0.7-1.3 BUN/CREATININE RATIO (test code = BUN/CREA) 10-20 TOTAL PROTEIN (test code = PROT) gram/dL 6.4-8.2 ALBUMIN (test code = ALB) g/dL 3.4-5.0 GLOBULIN (test code = GLOB) gram/dL 2.7-4.2 ALBUMIN/GLOBULIN RATIO (test code = A/G) 0.75-1.50 CALCIUM (test code = CA) mg/dL 8.5-10.1 BILIRUBIN TOTAL (test code = BILT) mg/dL 0.0-1.0 SGOT/AST (test code = AST) IUnit/L 15-37 SGPT/ALT (test code = ALT) IUnit/L 12-78 ALKALINE PHOSPHATASE TOTAL (test code = ALKP) IUnit/L 45-117 LIPID PROFILE (CORONARY RISK)2018-11-09 09:47:00* Test Item Value Reference Range Interpretation Comments TRIGLYCERIDES (test code = TRIG) mg/dL 20-150 CHOLESTEROL (test code = CHOL) mg/dL 0-200 CHOLESTEROL/HDL RATIO (test code = CHOLHDL) RATIO 0-4.9 HDL CHOLESTEROL (test code = HDL) mg/dL 40-60 LIPOPROTEIN LDL (test code = LDL) mg/dL 100-129 THYROID STIMULATING [id number] 09:47:00* Test Item Value Reference Range Interpretation Comments THYROID STIMULATING HORMONE (test code = TSH) uIU/mL 0.36-3.7 4 CBC W/AUTO [id number] 09:45:00* Test Item Value Reference Range Interpretation Comments WHITE BLOOD CELL (test code = WBC) 7.4 K/mm3 4.5-12.5 N RED BLOOD CELL (test code = RBC) 4.64 mill/mm3 4.0-5.8 N HEMOGLOBIN (test code = HGB) 16.6 gram/dL 13.0-17.5 N HEMATOCRIT (test code = HCT) 47.8 % 42.0-52.0 N MEAN CELL VOLUME (test code = MCV) 103.0 fL 80-98 H MEAN CELL HGB (test code = MCH) 35.8 picogram 27.0-33.0 H MEAN CELL HGB CONCETRATION (test code = MCHC) 34.7 gram/dL 33.0-36. 0 N RED CELL DISTRIBUTION WIDTH (test code = RDW) 14.1 % 11.6-16. 2 N RED CELL DISTRIBUTION WIDTH SD (test code = RDW-SD) 53.8 fL 37 .0-51.0 H PLATELET COUNT (test code = PLT) 198 K/mm3 150-450 N MEAN PLATELET VOLUME (test code = MPV) 9.8 fL 6.7-11.0 N NEUTROPHIL % (test code = NT%) 46.8 % 39.0-69.0 N IMMATURE GRANULOCYTE % (test code = IG%) 0.1 % 0.0-5.0 N LYMPHOCYTE % (test code = LY%) 28.1 % 25.0-55.0 N MONOCYTE % (test code = MO%) 15.9 % 0.0-10.0 H EOSINOPHIL % (test code = EO%) 7.5 % 0.0-5.0 H BASOPHIL % (test code = BA%) 1.6 % 0.0-1.0 H NUCLEATED RBC % (test code = NRBC%) 0.3 % 0-0 H NEUTROPHIL # (test code = NT#) 3.45 K/mm3 1.8-7.7 N IMMATURE GRANULOCYTE # (test code = IG#) 0.01 x10 3/uL 0-0.03 N LYMPHOCYTE # (test code = LY#) 2.07 K/mm3 1.0-5.0 N MONOCYTE # (test code = MO#) 1.17 K/mm3 0-0.8 H EOSINOPHIL # (test code = EO#) 0.55 K/mm3 0.0-0.5 H BASOPHIL # (test code = BA#) 0.12 K/mm3 0.0-0.2 N NUCLEATED RBC # (test code = NRBC#) 0.02 K/mm3 0.0-0.1 N CBC W/AUTO [id number] 09:39:00* Test Item Value Reference Range Interpretation Comments WHITE BLOOD CELL (test code = WBC) K/mm3 4.5-12.5 RED BLOOD CELL (test code = RBC) mill/mm3 4.0-5.8 HEMOGLOBIN (test code = HGB) 16.6 gram/dL 13.0-17.5 N HEMATOCRIT (test code = HCT) 47.8 % 42.0-52.0 N MEAN CELL VOLUME (test code = MCV) fL 80-98 MEAN CELL HGB (test code = MCH) picogram 27.0-33.0 MEAN CELL HGB CONCETRATION (test code = MCHC) gram/dL 33.0-36. 0 RED CELL DISTRIBUTION WIDTH (test code = RDW) % 11.6-16. 2 RED CELL DISTRIBUTION WIDTH SD (test code = RDW-SD) fL 37 .0-51.0 PLATELET COUNT (test code = PLT) K/mm3 150-450 MEAN PLATELET VOLUME (test code = MPV) fL 6.7-11.0 NEUTROPHIL % (test code = NT%) % 39.0-69.0 IMMATURE GRANULOCYTE % (test code = IG%) % 0.0-5.0 LYMPHOCYTE % (test code = LY%) % 25.0-55.0 MONOCYTE % (test code = MO%) % 0.0-10.0 EOSINOPHIL % (test code = EO%) % 0.0-5.0 BASOPHIL % (test code = BA%) % 0.0-1.0 NEUTROPHIL # (test code = NT#) K/mm3 1.8-7.7 LYMPHOCYTE # (test code = LY#) K/mm3 1.0-5.0 MONOCYTE # (test code = MO#) K/mm3 0-0.8 EOSINOPHIL # (test code = EO#) K/mm3 0.0-0.5 BASOPHIL # (test code = BA#) K/mm3 0.0-0.2 Urine Calcium 24 [id number] 07:14:00* Test Item Value Reference Range Interpretation Comments Urine Calcium 24 Hour (test code = 6874-2) 124.1 [id number] [place], [place] [id number] Director: John Paul Gómez MD, Ph one: [phone] Scott & [facility] StationUrine Calcium 24 Hour 2018-09-20 07:14:00* Test Item Value Reference Range Interpretation Comments Urine Calcium 24 Hour (test code = 6874-2) 124.[address] [id number] Director: John Paul Gómez MD, Ph one: [phone] Scott & [facility] StationUrine [id number] 07:11:00* Test Item Value Reference Range Interpretation Comments Urine Oxalate (test code = 2700-3) 11 Undefined [facility] StationUrine Oxalate 24 [id number] 07:11:00 * Test Item Value Reference Range Interpretation Comments Urine Oxalate 24 Hour (test code = 2701-1) 40 7-44 [facility] Citric [id number] 07:11:00* Test Item Value Reference Range Interpretation Comments Urine Citric Acid (test code = 89010-1) 15 Undefined [facility] [id number] 07:11:00* Test Item Value Reference Range Interpretation Comments Urine Citric Acid (test code = 6687-8) 55 320-1240 L This test was developed and its performance characteristicsdetermined by [employer] . It has not been cleared orapproved by the Food and Drug Administration.Perform ed at: [address] [id number] Direct or: John Paul Gómez MD, Phone: [phone] at: [address] [id number] Director: Jduy Monroy MD, Phone: [phone] Scott & [facility] – [facility] StationUrine Tckqyqv6954-37-94 07:11:00 * Test Item Value Reference Range Interpretation Comments Urine Oxalate (test code = 2700-3) 11 Undefined [facility] StationUrine Oxalate 24 [id number] 07:11:00 * Test Item Value Reference Range Interpretation Comments Urine Oxalate 24 Hour (test code = 2701-1) 40 7-44 [facility] StationU[facility] Citric [id number] 07:11:00* Test Item Value Reference Range Interpretation Comments Urine Citric Acid (test code = 52241-4) 15 Undefined [facility] Citric Cjie1816-06-65 07:11:00* Test Item Value Reference Range Interpretation Comments Urine Citric Acid (test code = 6687-8) 55 320-1240 L This test was developed and its performance characteristicsdetermined by [facility] . It has not been cleared orapproved by the Food and Drug Administration.Perform ed at: - [facility] [id number] Direct or: John Paul Gómez MD, Phone: [phone] at: - [facility] [id number] Director: Judy Monroy MD, Phone: [phone] [facility] CenterBedside Ewdwteb2694-10-65 15:39:00* Test Item Value Reference Range Interpretation Comments Bedside Glucose (test code = 53094-9) 159 70-120 H Meter ID: [id number] [facility] CenterUS GUIDANCE FOR VASCULAR [id number] 15:22:00 [place] [address] Patient Name: ANKUR DEGROOT MR #: [id number] : 1955 Age/Sex: 63/M Req #: [id number] Adm Physician: GINO WALL MD Ordered by: GINO WALL MD Report #: [id number] Location: MED/SURG [facility] Procedure: US/US GUIDANCE FOR VASCULAR ACCES Exam Date: 09/16/18 Exam Time: [address] ATUS: Signed PROCEDURE: Tunneled central venous catheter placement Proc edural Personnel Attending physician(s): Ulises Galloway MD Fellow physician(s): None Resident physician(s): None Advanced practice provider(s): None P re-procedure diagnosis: Bacteremia Post-procedure diagnosis: Same Indication : Administration of correction antibiotics Additional clinical history: None Complications: No immediate complications. IMPRESSION: Insertion of right-sided single-lumen tunneled Proline catheter, with tip in the expected location of the cavoatrial junction. Plan: The catheter may be used i mmediately. PROCEDURE SUMMARY: - Venous access with ultrasound guidance - Tunneled ce ntral venous catheter insertion with fluoroscopic guidance - Additional proced ure(s): None PROCEDURE DETAILS: Pre-procedure Consent: Informed cons ent for the procedure including risks, benefits and alternatives was obtained and time-out was performed prior to the procedure. Preparation (MIPS): The sit e was prepared and draped using all elements of maximal sterile barrier techni que including sterile gloves, sterile gown, cap, mask, large sterile sheet, st erile ultrasound probe cover, hand hygiene and cutaneous antisepsis with 2% ch lorhexidine. Medical reason for site preparation exception (MIPS): Not applic able Anesthesia/sedation Level of anesthesia/sedation: No sedation Anes thesia/sedation administered by: Independent trained observer under attending supervision with continuous monitoring of the patient?s level of consciousness and physiologic status Access Local anesthesia was administered. The ves bessie was sonographically evaluated and determined to be patent. Real time ultra sound was used to visualize needle entry into the vessel and a permanent image . Vein accessed: Internal jugular vein Access technique: Micropuncture s et with 21 gauge needle Catheter placement An incision was made near t he venous access site and the catheter was tunneled subcutaneously to the veno us access site and trimmed to appropriate length. The catheter was advanced vi a a peel-away sheath into the vein under fluoroscopic guidance. Catheter tip l ocation was fluoroscopically verified and a permanent image was stored. Cath eter placed: Proline power injectable single lumen Catheter size (Irish): 5 Catheter flush: Normal saline Closure A sterile dressing was applied. Access site closure technique: Tissue adhesive Catheter securement technique: Non-absorbable suture Contrast Contrast agent: None Radiation Dose Fluoroscopy time (minutes): 0.5 Reference air kerma (mGy): 1.39 Addit ional Details Additional description of procedure: None Equipment details: N one Specimens removed: None Estimated blood loss (mL): Less than 10 Standa rdized report: [email or web address]_v3 Attestation Signer name: Ulises banda MD I attest that I was present for the entire procedure. I reviewed the sto red images and agree with the report as written. Signed by: Ulises Galloway MD on 09/19/2018 3:22 PM Dictated By: ULISES GALLOWAY MD Electronically S igned By: ULISES GALLOWAY MD on 09/19/18 1522 Transcribed By: MAGALY on 09/19/18 COPY TO: GINO WALL MD Urine Calcium mg/aH3130-31-43 14:33:00* Test Item Value Reference Range Interpretation Comments Urine Calcium mg/dL (test code = 87161-2) 3.4 Not Estab. [facility] StationUrine Calcium 24 Pgbe0540-59-31 14:33:00 * Test Item Value Reference Range Interpretation Comments Urine Calcium 24 Hour (test code = 6874-2) Comment 100.0-300.0 No total volume submitted. Unable to calculate 24 hourresult.Performed at: - [address] [id number] Director: John Paul yan MD, Phone: [phone] Scott & [facility] – College StationUrine Calcium mg/fE3170-43-29 14:33:00* Test Item Value Reference Range Interpretation Comments Urine Calcium mg/dL (test code = 00072-6) 3.4 Not Estab. [facility] StationUrine Calcium mg/wM6709-82-74 14:33:00* Test Item Value Reference Range Interpretation Comments Urine Calcium mg/dL (test code = 93332-9) 3.4 Not Estab. [facility] StationWound Ihdmejm0669-88-88 07:59:00* Test Item Value Reference Range Interpretation Comments Wound Culture (test code = 6462-6) Organism: STAPHYLOCOCCUS AUREUS [facility] Upkryfz8253-53-92 07:59:00* Test Item Value Reference Range Interpretation Comments Wound Culture (test code = 6462-6) No Result Data Provided [facility] Jncgwud5226-85-53 07:59:00* Test Item Value Reference Range Interpretation Comments Wound Culture (test code = 6462-6) No Result Data Provided [facility] Center[facility] Gsmpo0422-12-51 06:18:00* Test Item Value Reference Range Interpretation Comments Sodium Level (test code = 2951-2) 137 136-145 [facility] StationPotassium Tztkp7487-87-12 06:18:00* Test Item Value Reference Range Interpretation Comments Potassium Level (test code = 2823-3) 4.4 3.5-5.1 [facility] StationChloride Ktisk5268-96-91 06:18:00* Test Item Value Reference Range Interpretation Comments Chloride Level (test code = 2075-0) 101 98-107 [facility] StationCarbon Dioxide Jmjgh0188-30-95 06:18:00* Test Item Value Reference Range Interpretation Comments Carbon Dioxide Level (test code = 2028-9) 27 22-29 [facility] StationAnion [id number] 06:18:00* Test Item Value Reference Range Interpretation Comments Anion Gap (test code = 92623-1) 13.4 8-16 [facility] StationBlood Urea Azetvkdn4247-26-34 06:18:00* Test Item Value Reference Range Interpretation Comments Blood Urea Nitrogen (test code = 3094-0) 16 7-26 [facility] StationCreatinine2019-08-10 06:18:00* Test Item Value Reference Range Interpretation Comments Creatinine (test code = 2160-0) 1.61 0.72-1.25 H [facility] StationBUN/Creatinine Skrgn3818-59-40 06:18:00* Test Item Value Reference Range Interpretation Comments BUN/Creatinine Ratio (test code = 3097-3) 10 6-25 [facility] College StationEstimat Glomerular Filtration Rate 2018-09-17 06:18:00* Test Item Value Reference Range Interpretation Comments Estimat Glomerular Filtration Rate (test code = 413403088) 43 >60 L Ranges were taken from the National Kidney Disease Education Program and the [facility] literature.Reference ranges:60 or greater: Ykjzrs90-82 ( for 3 consecutive months): Chronic kidney disease 15 or less: Kidney failureBaylor Scott & White Medical Center – College StationGlucose Upven8944-16-16 06:18:00* Test Item Value Reference Range Interpretation Comments Glucose Level (test code = VXQ1218) 118 74-118 [facility] StationCalcium Rlhvs5336-69-81 06:18:00* Test Item Value Reference Range Interpretation Comments Calcium Level (test code = 50887-2) 9.2 8.4-10.2 [facility] StationTotal Mfhnfmgbl6759-14-68 06:18:00* Test Item Value Reference Range Interpretation Comments Total Bilirubin (test code = 1975-2) 0.3 0.2-1.2 [facility] StationAspartate Amino Transf (AST/SGOT) 2018-09-17 06:18:00* Test Item Value Reference Range Interpretation Comments Aspartate Amino Transf (AST/SGOT) (test code = Aspartate Amino Transf (AST/SGOT)) 33 5-34 [facility] StationAlanine Aminotransferase (ALT/SGPT) 2018-09-17 06:18:00* Test Item Value Reference Range Interpretation Comments Alanine Aminotransferase (ALT/SGPT) (test code = 1742-6) 32 0-55 [facility] StationTotal Kglkhne1608-24-20 06:18:00* Test Item Value Reference Range Interpretation Comments Total Protein (test code = 2885-2) 6.5 6.5-8.1 [facility] StationAlbumin2019-08-10 06:18:00* Test Item Value Reference Range Interpretation Comments Albumin (test code = 1751-7) 2.7 3.5-5.0 L [facility] StationGlobulin2019-08-10 06:18:00* Test Item Value Reference Range Interpretation Comments Globulin (test code = 90454-4) 3.8 2.3-3.5 H [facility] StationAlbumin/Globulin Jhhre3865-55-77 06:18:00 * Test Item Value Reference Range Interpretation Comments Albumin/Globulin Ratio (test code = 1759-0) 0.7 0.8-2.0 L [facility] StationAlkaline Pxritfqhspa9532-46-55 06:18:00* Test Item Value Reference Range Interpretation Comments Alkaline Phosphatase (test code = 6768-6) 44 40-150 [facility] StationB-Type Natriuretic Sgnkucg1913-33-81 06:14:00* Test Item Value Reference Range Interpretation Comments B-Type Natriuretic Peptide (test code = 44217-2) 462.6 0-100 H [facility] StationParathyroid Ssiljni9821-23-99 06:12:00* Test Item Value Reference Range Interpretation Comments Parathyroid Hormone (test code = 2731-8) 26 15-65 [facility] StationCalcium (Send out)2018-09-17 06:12:00* Test Item Value Reference Range Interpretation Comments Calcium (Send out) (test code = 24818-9) 9.3 8.6-10.2 [facility] StationParathyroid Hormone Interpretation 2018-09-17 06:12:00* Test Item Value Reference Range Interpretation Comments Parathyroid Hormone Interpretation (test code = Parathyroid Hormone Interpretation) Comment . Interpretation Intact PTH Calcium (pg/mL) (mg/dL)Normal 15 - 65 8.6 - 10.2Pr imary Hyperparathyroidism >65 >10.2Secondary Hyperparathyroidism >65 <10.2Non-Parathyroid Hypercalcemia <65 >10.2Hypoparathyroidism <15 < 8.6Non- Parathyroid Hypocalcemia 15 - 65 < 8.6Performed at: - [facility] [id number] Director: John Paul Gómez MD, Phone: [phone] at: - [facility] [id number] Director: Judy Monroy MD, Phone: [phone] [facility] CenterParathyroid Ozevobc5878-69-05 06:12:00* Test Item Value Reference Range Interpretation Comments Parathyroid Hormone (test code = 2731-8) 15-65 [facility] StationCalcium (Send out)2018-09-17 06:12:00* Test Item Value Reference Range Interpretation Comments Calcium (Send out) (test code = 24129-3) 9.3 8.6-10.2 [facility] StationParathyroid Hormone Interpretation 2018-09-17 06:12:00* Test Item Value Reference Range Interpretation Comments Parathyroid Hormone Interpretation (test code = Parathyroid Hormone Interpretation) Comment . Interpretation Intact PTH Calcium (pg/mL) (mg/dL)Normal 15 - 65 8.6 - 10.2Pr imary Hyperparathyroidism >65 >10.2Secondary Hyperparathyroidism >65 <10.2Non-Parathyroid Hypercalcemia <65 >10.2Hypoparathyroidism <15 < 8.6Non- Parathyroid Hypocalcemia 15 - 65 < 8.6Performed at: - [facility] [address] [id number] Director: John Paul Gómez MD, Phone: [phone] at: - [facility] [id number] Director: Judy Monroy MD, Phone: [phone] [facility] CenterParathyroid Rpgkjph9873-86-46 06:12:00* Test Item Value Reference Range Interpretation Comments Parathyroid Hormone (test code = 2731-8) 1565 [facility] StationCalcium (Send out)2018-09-17 06:12:00* Test Item Value Reference Range Interpretation Comments Calcium (Send out) (test code = 19609-7) 9.3 8.6-10.2 [facility] StationParathyroid Hormone Interpretation 2018-09-17 06:12:00* Test Item Value Reference Range Interpretation Comments Parathyroid Hormone Interpretation (test code = Parathyroid Hormone Interpretation) Comment . Interpretation Intact PTH Calcium (pg/mL) (mg/dL)Normal 15 - 65 8.6 - 10.2Pr imary Hyperparathyroidism >65 >10.2Secondary Hyperparathyroidism >65 <10.2Non-Parathyroid Hypercalcemia <65 >10.2Hypoparathyroidism <15 < 8.6Non- Parathyroid Hypocalcemia 15 - 65 < 8.6Performed at: HD - [facility] [address] [place], [place] [id number] Director: John Paul Gómez MD, Phone: [phone] at: BN - [facility] [address] [id number] Director: Judy Monroy MD, Phone: [phone] StationWhite Blood Rwcvb0102-31-97 05:53:00* Test Item Value Reference Range Interpretation Comments White Blood Count (test code = 6690-2) 6.80 4.8-10.8 [facility] StationRed Blood Mihbu8361-86-95 05:53:00* Test Item Value Reference Range Interpretation Comments Red Blood Count (test code = 789-8) 3.69 4.3-5.7 L [facility] StationHemoglobin2019-08-10 05:53:00* Test Item Value Reference Range Interpretation Comments Hemoglobin (test code = 71921-0) 13.1 14.0-18.0 L [facility] StationHematocrit2019-08-10 05:53:00* Test Item Value Reference Range Interpretation Comments Hematocrit (test code = 4544-3) 38.5 38.2-49.6 [facility] StationMean Corpuscular Pgxebf1309-88-17 05:53:00* Test Item Value Reference Range Interpretation Comments Mean Corpuscular Volume (test code = 787-2) 104.3 81-99 H [facility] StationMean Corpuscular Sfgwzpdlhs6956-06-28 05:53:00* Test Item Value Reference Range Interpretation Comments Mean Corpuscular Hemoglobin (test code = 785-6) 35.5 28-32 [facility] Corp[facility] Hemoglobin Concent 2018-09-17 05:53:00* Test Item Value Reference Range Interpretation Comments Mean Corpuscular Hemoglobin Concent (test code = 786-4) 34.0 31-35 [facility] StationRed Cell Distribution Xvzwg8986-90-72 05:53:00* Test Item Value Reference Range Interpretation Comments Red Cell Distribution Width (test code = 56044-8) 13.4 11.7 -14.4 [facility] StationPlatelet Zaxmf2169-57-75 05:53:00* Test Item Value Reference Range Interpretation Comments Platelet Count (test code = 777-3) 263 140-360 [facility] StationNeutrophils (%) (Auto)2018-09-17 05:53:00 * Test Item Value Reference Range Interpretation Comments Neutrophils (%) (Auto) (test code = 42226-2) 41.9 38.7-80.0 [facility] StationLymphocytes (%) (Auto)2018-09-17 05:53:00 * Test Item Value Reference Range Interpretation Comments Lymphocytes (%) (Auto) (test code = 736-9) 39.4 18.0-39.1 H [facility] StationMonocytes (%) (Auto)2018-09-17 05:53:00* Test Item Value Reference Range Interpretation Comments Monocytes (%) (Auto) (test code = 5905-5) 13.8 4.4-11.3 H [facility] StationEosinophils (%) (Auto)2018-09-17 05:53:00 * Test Item Value Reference Range Interpretation Comments Eosinophils (%) (Auto) (test code = 713-8) 3.5 0.0-6.0 [facility] StationBasophils (%) (Auto)2018-09-17 05:53:00* Test Item Value Reference Range Interpretation Comments Basophils (%) (Auto) (test code = 706-2) 1.0 0.0-1.0 [facility] StationIM GRANULOCYTES %2018-09-17 05:53:00* Test Item Value Reference Range Interpretation Comments IM GRANULOCYTES % (test code = IM GRANULOCYTES %) 0.4 0.0- 1.0 [facility] StationNeutrophils # (Auto)2018-09-17 05:53:00* Test Item Value Reference Range Interpretation Comments Neutrophils # (Auto) (test code = 751-8) 2.8 2.1-6.9 [facility] StationLymphocytes # (Auto)2018-09-17 05:53:00* Test Item Value Reference Range Interpretation Comments Lymphocytes # (Auto) (test code = 31628-7) 2.7 1.0-3.2 [facility] StationMonocytes # (Auto)2018-09-17 05:53:00* Test Item Value Reference Range Interpretation Comments Monocytes # (Auto) (test code = 742-7) 0.9 0.2-0.8 H [facility] StationEosinophils # (Auto)2018-09-17 05:53:00* Test Item Value Reference Range Interpretation Comments Eosinophils # (Auto) (test code = 711-2) 0.2 0.0-0.4 [facility] StationBasophils # (Auto)2018-09-17 05:53:00* Test Item Value Reference Range Interpretation Comments Basophils # (Auto) (test code = 704-7) 0.1 0.0-0.1 [facility] StationAbsolute Immature Granulocyte (auto 2018-09-17 05:53:00* Test Item Value Reference Range Interpretation Comments Absolute Immature Granulocyte (auto (riley t code = Absolute Immature Granulocyte (auto) 0.03 0-0.1 [facility] StationIR [id number] 17:14:00 [place] [address] Patient Name: ANKUR DEGROOT MR #: [id number] : 1955 Age/Sex: 63/M Req #: [id number] Adm Physician: GINO WALL MD Ordered by: JUSTO RESENDEZ MD Report #: [id number] Location: MED/SURG [facility] Procedure: 0 DX/IR CONSULT Exam Date: Exam Time: REPORT STATUS: Signed PROCEDURE: Tunneled ce ntral venous catheter placement Procedural Personnel Attending physician (s): Ulises Galloway MD Fellow physician(s): None Resident physician(s): None Advanced practice provider(s): None Pre-procedure diagnosis: Bacteremia P ost-procedure diagnosis: Same Indication: Administration of long term acute care registered nurse antibiot ics Additional clinical history: None Complications: No immediate complic ations. IMPRESSION: Insertion of right-sided single-lumen tunneled Pro line catheter, with tip in the expected location of the cavoatrial junction. Plan: The catheter may be used immediately. PROCEDURE SUMMARY: - Venous acces s with ultrasound guidance - Tunneled central venous catheter insertion with f luoroscopic guidance - Additional procedure(s): None PROCEDURE DETAILS: Pre-procedure Consent: Informed consent for the procedure including risks, benefits and alternatives was obtained and time-out was performed prior to the procedure. Preparation (MIPS): The site was prepared and draped using all el ements of maximal sterile barrier technique including sterile gloves, sterile gown, cap, mask, large sterile sheet, sterile ultrasound probe cover, hand hyg iene and cutaneous antisepsis with 2% chlorhexidine. Medical reason for sit e preparation exception (MIPS): Not applicable Anesthesia/sedation Level of anesthesia/sedation: No sedation Anesthesia/sedation administered by: Indep endent trained observer under attending supervision with continuous monitoring of the patient?s level of consciousness and physiologic status Access Local anesthesia was administered. The vessel was sonographically evaluated and determined to be patent. Real time ultrasound was used to visualize needle e ntry into the vessel and a permanent image . Vein accessed: Internal jugula r vein Access technique: Micropuncture set with 21 gauge needle Cathet er placement An incision was made near the venous access site and the catheter was tunneled subcutaneously to the venous access site and trimmed to appropri ate length. The catheter was advanced via a peel-away sheath into the vein und er fluoroscopic guidance. Catheter tip location was fluoroscopically verified and a permanent image was stored. Catheter placed: Proline power injectable single lumen Catheter size (Irish): 5 Catheter flush: Normal saline Cl osure A sterile dressing was applied. Access site closure technique: Tissue adhesive Catheter securement technique: Non-absorbable suture Contrast Contrast agent: None Radiation Dose Fluoroscopy time (minutes): 0.5 R eference air kerma (mGy): 1.39 Additional Details Additional description of procedure: None Equipment details: None Specimens removed: None Estima terrance blood loss (mL): Less than 10 Standardized report: SIR_TunneledCatheter_v3 Attestation Signer name: Ulises Galloway MD I attest that I was present for the entire procedure. I reviewed the stored images and agree with the report as written. Signed by: Ulises Galloway MD on 09/19/2018 8:22 AM Di ctated By: ULISES GALLOWAY MD 29 Transcribed By: MAGALY on 09/19/18821 COPY TO: JUSTO RESENDEZ MD TUNNELLED CVC INSERT W/O [id number] 17:14:00 [place] [address] Patient Name: ANKUR DEGROOT MR #: [id number] : 1955 Age/Sex: 63/M Req #: [id number] Adm Physician: GINO WALL MD Ordered by: JUSTO RESENDEZ MD Report #: [id number] Location: MED/SURG Room/Bed: [facility] Procedure: 5 IR/TUNNELLED CVC INSERT W/O PORT Exam Date: Exam Time: REPORT STATUS: Signed PRO CEDURE: Tunneled central venous catheter placement Procedural Personnel Attending physician(s): Ulises Galloway MD Fellow physician(s): None Resident ph ysician(s): None Advanced practice provider(s): None Pre-procedure diagno sis: Bacteremia Post-procedure diagnosis: Same Indication: Administration of correction antibiotics Additional clinical history: None Complications: No immediate complications. IMPRESSION: Insertion of right-sided single- lumen tunneled Proline catheter, with tip in the expected location of the cav oatrial junction. Plan: The catheter may be used immediately. PROCEDURE SUMMAR Y: - Venous access with ultrasound guidance - Tunneled central venous cathet er insertion with fluoroscopic guidance - Additional procedure(s): None P ROCEDURE DETAILS: Pre-procedure Consent: Informed consent for the procedu re including risks, benefits and alternatives was obtained and time-out was pe rformed prior to the procedure. Preparation (MIPS): The site was prepared and draped using all elements of maximal sterile barrier technique including steri le gloves, sterile gown, cap, mask, large sterile sheet, sterile ultrasound pr obe cover, hand hygiene and cutaneous antisepsis with 2% chlorhexidine. Med ical reason for site preparation exception (MIPS): Not applicable Anesthesi a/sedation Level of anesthesia/sedation: No sedation Anesthesia/sedation adm inistered by: Independent trained observer under attending supervision with co ntinuous monitoring of the patient?s level of consciousness and physiologic st atus Access Local anesthesia was administered. The vessel was sonographic ally evaluated and determined to be patent. Real time ultrasound was used to v isualize needle entry into the vessel and a permanent image . Vein access ed: Internal jugular vein Access technique: Micropuncture set with 21 gauge ne edle Catheter placement An incision was made near the venous access si te and the catheter was tunneled subcutaneously to the venous access site and trimmed to appropriate length. The catheter was advanced via a peel-away sheat h into the vein under fluoroscopic guidance. Catheter tip location was fluoros copically verified and a permanent image was stored. Catheter placed: Prolin e power injectable single lumen Catheter size (Irish): 5 Catheter flush: No rmal saline Closure A sterile dressing was applied. Access site closure technique: Tissue adhesive Catheter securement technique: Non-absorbable sutu re Contrast Contrast agent: None Radiation Dose Fluoroscopy time ( minutes): 0.5 Reference air kerma (mGy): 1.39 Additional Details Add itional description of procedure: None Equipment details: None Specimens rem matty: None Estimated blood loss (mL): Less than 10 Standardized report: SIR_ TunneledCatheter_v3 Attestation Signer name: Ulises Galloway MD I attest th at I was present for the entire procedure. I reviewed the stored images and ag ree with the report as written. Signed by: Ulises Galloway MD on 8:22 AM Dictated By: ULISES GALLOWAY MD 1 Transcribed By: MAGALY on 09/19/18821 COPY TO: JUSTO RESENDEZ MD MRI FEMUR RIGHT [id number] 16:17:00 [place] [address] Patient Name: ANKUR DEGROOT MR #: [id number] : 1955 Age/Sex: 63/M Req #: [id number] Adm Physician: GINO WALL MD Ordered by: JUSTO RESENDEZ MD Report #: [id number] Location: MED/SURG Room/Bed: [facility] Procedure: 0809-000 8 MRI/MRI FEMUR RIGHT WO Exam Date: Exam Time: REPORT STATUS: Signed MRI of the right femur without contrast. History: Infection distal right thigh. Cell ulitis. Rule out abscess Technique: Multiplanar multisequence MRI of the ri ght femur without contrast Findings: Postsurgical change in the knee with associated metallic artifacts. No acute fracture, subluxation or avascular necrosis. Abnormal skin thickening with skin defect and abnormal soft tissu e edema at the medial aspect of the thigh at the level of the distal femur. Th ere is an associated 5.8 x 2.4 x 1.4 cm heterogeneous fluid collection in the superficial fat with what appears to be a draining sinus tract best seen on ax ial series 3 image 33 through 37. There may be some internal packing material or air. This is consistent with a phlegmon/abscess. The underlying muscle is u ninvolved. The visualized muscles are otherwise normal in size, signal inte nsity and morphology. The visualized neurovascular bundles are intact. Impression: Findings consistent with cellulitis and superficial abscess with sinus tract along the distal medial thigh as described above. Signed by: Dr. Igor Adame M.D. on 09/16/2018 4:23 PM Dictated By: IGOR ADAME MD, MD 162 Transcri bed By: MAGALY on 09/16/18 1623 COPY TO: JUSTO RESENDEZ MD Thyroid Stimulating Hormone (TSH)2018-09-16 12:55:00* Test Item Value Reference Range Interpretation Comments Thyroid Stimulating Hormone (TSH) (test code = 65394-4) 2.050 0.350-4.940 [facility] StationTriglycerides Wjoid7086-14-43 12:23:00* Test Item Value Reference Range Interpretation Comments Triglycerides Level (test code = 2571-8) 107 0-149 [facility] StationCholesterol Cpdnj0862-19-69 12:23:00* Test Item Value Reference Range Interpretation Comments Cholesterol Level (test code = 2093-3) 207 0-199 H Less than 200 mg/dL Low Mcyo921 - 239 mg/dL Borderline Spkl612 m g/dl and greater High Risk [facility] StationLDL Aauiljxqcvm6999-07-27 12:23:00* Test Item Value Reference Range Interpretation Comments LDL Cholesterol (test code = 2089-1) 145 60-130 H [facility] StationHDL Zqnupkzxwve3266-27-74 12:23:00* Test Item Value Reference Range Interpretation Comments HDL Cholesterol (test code = 2085-9) 41 40-60 [facility] StationCholesterol/HDL Ppitd4914-24-85 12:23:00 * Test Item Value Reference Range Interpretation Comments Cholesterol/HDL Ratio (test code = 9830-1) 5.0 3.9-4.7 H [facility] StationUric Xemy8483-44-90 06:24:00* Test Item Value Reference Range Interpretation Comments Uric Acid (test code = 3084-1) 5.4 4.8-8.0 [facility] StationUric Wbwu9054-04-65 06:24:00* Test Item Value Reference Range Interpretation Comments Uric Acid (test code = 3084-1) 5.4 4.8-8.0 [facility] StationUric Rgph1131-05-07 06:24:00* Test Item Value Reference Range Interpretation Comments Uric Acid (test code = 3084-1) 5.4 4.8-8.0 [facility] StationRandom Vancomycin Dzpzl9985-00-18 05:51:00* Test Item Value Reference Range Interpretation Comments Random Vancomycin Level (test code = 94318-1) 11.4 [facility] StationRanhedrick [facility] Vancomycin Mltyq1698-19-08 05:51:00* Test Item Value Reference Range Interpretation Comments Random Vancomycin Level (test code = 89035-7) 11.4 [facility] StationRandom Vancomycin Achmy3551-20-82 05:51:00* Test Item Value Reference Range Interpretation Comments Random Vancomycin Level (test code = 63300-5) 11.4 [facility] StationUrine Random Total Opklxfj4364-17-17 15:55:00* Test Item Value Reference Range Interpretation Comments Urine Random Total Protein (test code = 2888-6) < 6.8 1-14 [facility] StationUrine Fsyooytjpn8131-42-31 15:55:00* Test Item Value Reference Range Interpretation Comments Urine Creatinine (test code = 2161-8) 66.11 63-166 [facility] StationUrine Protein/Creatinine Ntpib8885-89-20 15:55:00* Test Item Value Reference Range Interpretation Comments Urine Protein/Creatinine Ratio (test code = 27480-7) 0.00 [facility] Random Total Nobtneq7824-63-33 15:55:00* Test Item Value Reference Range Interpretation Comments Urine Random Total Protein (test code = 2888-6) < 6.8 1-14 [facility] StationUrine Zbrvkfvvow6296-58-67 15:55:00* Test Item Value Reference Range Interpretation Comments Urine Creatinine (test code = 2161-8) 66.11 63-166 [facility] StationUrine Protein/Creatinine Qyplh9736-63-71 15:55:00* Test Item Value Reference Range Interpretation Comments Urine Protein/Creatinine Ratio (test code = 17918-2) 0.00 [facility] StationUrine Random Total Evbxbxi1356-08-40 15:55:00* Test Item Value Reference Range Interpretation Comments Urine Random Total Protein (test code = 2888-6) < 6.8 1-14 [facility] StationUrine Lknsmrgvgk0968-27-62 15:55:00* Test Item Value Reference Range Interpretation Comments Urine Creatinine (test code = 2161-8) 66.11 63-166 [facility] StationUrine Protein/Creatinine Rigpf8940-55-85 15:55:00* Test Item Value Reference Range Interpretation Comments Urine Protein/Creatinine Ratio (test code = 40021-0) 0.00 [facility] StationUrine TUQ8934-57-77 15:39:00* Test Item Value Reference Range Interpretation Comments Urine WBC (test code = 5821-4) NONE 0-5 [facility] StationUrine BBT9710-16-38 15:39:00* Test Item Value Reference Range Interpretation Comments Urine RBC (test code = 05311-7) NONE 0-5 [facility] StationUrine Nqwetsst7822-69-00 15:39:00* Test Item Value Reference Range Interpretation Comments Urine Bacteria (test code = 13925-2) NONE NONE [facility] StationUrine Epithelial Mcdcq4827-94-97 15:39:00 * Test Item Value Reference Range Interpretation Comments Urine Epithelial Cells (test code = 98074-0) RARE NONE [facility] StationUrine Ojefa9594-28-17 15:25:00* Test Item Value Reference Range Interpretation Comments Urine Color (test code = 5778-6) YELLOW YELLOW [facility] StationUrine Yngdumd9902-34-13 15:25:00* Test Item Value Reference Range Interpretation Comments Urine Clarity (test code = 22493-4) SL CLOUDY CLEAR H [facility] StationUrine Specific Ajhfyhy4187-38-04 15:25:00 * Test Item Value Reference Range Interpretation Comments Urine Specific [place] (test code = 5811-5) 1.015 1.010-1.02 5 [facility] StationUrine nE1911-50-76 15:25:00* Test Item Value Reference Range Interpretation Comments Urine pH (test code = 35464-6) 6 5-7 [facility] StationUrine Leukocyte Ofsgwtip5541-45-25 15:25:00* Test Item Value Reference Range Interpretation Comments Urine Leukocyte Esterase (test code = 85830-4) NEGATIVE NEGATIV E [facility] StationUrine Crgoweq2797-22-52 15:25:00* Test Item Value Reference Range Interpretation Comments Urine Nitrite (test code = 64831-7) NEGATIVE NEGATIVE [facility] StationUrine Qfbobpa6746-37-90 15:25:00* Test Item Value Reference Range Interpretation Comments Urine Protein (test code = 17304-7) NEGATIVE NEGATIVE [facility] StationUrine Glucose (UA)2018-09-15 15:25:00* Test Item Value Reference Range Interpretation Comments Urine Glucose (UA) (test code = 17223-5) NEGATIVE NEGATIVE [facility] StationUrine Ikvruwa2330-85-80 15:25:00* Test Item Value Reference Range Interpretation Comments Urine Ketones (test code = 08854-4) NEGATIVE NEGATIVE [facility] StationUrine Ydzysaojepnr0573-57-11 15:25:00* Test Item Value Reference Range Interpretation Comments Urine Urobilinogen (test code = 10956-2) 0.2 0.2-1 [facility] StationUrine Bvhqwtalk8268-23-27 15:25:00* Test Item Value Reference Range Interpretation Comments Urine Bilirubin (test code = 1977-8) NEGATIVE NEGATIVE [facility] StationUrine Labfn7498-35-02 15:25:00* Test Item Value Reference Range Interpretation Comments Urine Blood (test code = 70864-6) NEGATIVE NEGATIVE [facility] StationUS RENAL RETROPERITONEAL RAVU2986-44-23 15:02:00 [facility] [address] [address] Patient Name: ANKUR DEGROOT MR #: [id number] : 1955 Age/Sex: 63/M Req #: [id number] Adm Physician: GINO WALL MD Ordered by: JIM LUCIO, KENDAL LUCIO Report #: [id number] Location: MED/SURG [facility] Procedure: 0808-0 018 US/US RENAL RETROPERITONEAL COMP Exam Date: 09/15/18 Exam Time: 1425 REPORT STATUS: Signed EXAM: Renal Ultrasound INDICATION: PHAM COMPARISON: CT abdomen and pelvis of 09/15/2018 TECHNIQUE: Transverse and longitudinal images of the kidneys and bladder were obtained. FINDINGS: Right K idney: Length: 10.4 cm Appearance: Normal echogenicity. Collecting syst em: No hydronephrosis Stones: Nonobstructive small calculi better demonstrated on CT. Cyst/Mass: None Left Kidney: Length: 11.7 cm Appearance: Nor mal echogenicity. Collecting system: No hydronephrosis Stones: Nonobstruct [place] small calculi better demonstrated on CT. Cyst/Mass: None Bladder: Bilateral ureteral jets seen. Prevoid volume estimate of 65.5 cc IMPRESSION : No hydronephrosis. Small nonobstructing renal calculi and bladder calcu twyla are better demonstrated on the CT of the same day. Signed by: Ulises Galloway MD on 09/16/2018 9:06 AM Dictated By: ULISES GALLOWAY MD Electronically Si gned By: UILSES GALLOWAY MD on 09/16/18905 Transcribed By: MAGALY on 09/16/18 090 6 COPY TO: KENDAL FERNANDEZ CT ABDOMEN/PELVIS [id number] 13:52:00 [place] [address] Patient Name: ANKUR DEGROOT MR #: [id number] : 1955 Age/Sex: 63/M Req #: [id number] Adm Physician: GINO WALL MD Ordered by: GINO WALL MD Report #: [id number] Location: MED/SURG Room/Bed: [facility] [place] Procedure: CT/CT ABDOMEN/PELVIS WO Exam Date: 09/15/18 Exam Time: 1240 REPORT STATUS: Sign ed EXAM: CT Abdomen and Pelvis WITHOUT intravenous contrast INDICATION : Flank pain, renal calculi COMPARISON: None. TECHNIQUE: Abdomen and p roma were scanned utilizing a multidetector helical scanner from the lung bas e to the pubic symphysis without administration of IV contrast. Coronal and sa gittal reformations were obtained. IV CONTRAST: None ORAL CONTRAST: None COMPLICATIONS: None RADIATION DOSE: Total DLP: 76 3.2 mGy*cm Dose modulation, iterative reconstruction, and/or weight based a djustment of the mA/kV was utilized to reduce the radiation dose to as low as reasonably achievable. FINDINGS: LOWER THORAX: Bibasilar subsegmental atelectasis. Right lower lobe calcified granuloma. Multichamber cardiomegaly. Atherosclerotic calcifications of the coronary arteries. HEPATOBILIARY: L eft hepatic 7 mm hypodense lesion and right hepatic 10 mm hypodense lesion are too small to adequately characterize on this noncontrast study. No other focal liver lesions. The gallbladder is decompressed and appears unremarkable. SPLEEN: Absent. 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 PANCREAS: No focal mass or ductal dilation. Scattered calcifications of the pancreatic head, possibly reflecting chronic pancreatitis. ADRENALS: No a drenal nodules. KIDNEYS/URETERS: 3 mm left lower pole nonobstructing renal michelle culus. 3 mm and 2 mm right lower pole nonobstructing renal calculi. No hydrone phrosis. No definite solid mass lesions. PELVIC ORGANS/BLADDER: Unremarkable . PERITONEUM / RETROPERITONEUM: 1.9 cm irregular dense calculus in the left dependent portion of the bladder. Coarse calcifications within the nonenlarged prostate. LYMPH NODES: No lymphadenopathy. VESSELS: Atherosclerotic calc ifications of the abdominal aorta and major branches. Infrarenal abdominal aor tic aneurysm measuring up to 3.3 cm. Ectatic right and left common iliac arter ies measuring up to 1.7 cm on the left and 1.9 cm on the right. GI TRACT: No abnormal bowel wall thickening. No bowel obstruction. BONES AND SOFT TI SSUES: No acute osseous injury. Mild degenerative changes of the visualized sp ine. Grade 1 retrolisthesis at L5-S1. No suspicious lytic or blastic lesions. Sternotomy wires in place. IMPRESSION: 1.7 cm bladder calculus in the le ft dependent bladder. Bilateral nonobstructive renal calculi measuring up to 3 mm. No hydronephrosis. Atherosclerotic calcifications of the abdominal aor ta with a 3.3 cm infrarenal abdominal aortic aneurysm. Ectatic right and left common iliac arteries measuring up to 1.7 cm on the left and 1.9 cm on the rig ht. Multichamber cardiomegaly and atherosclerotic coronary artery calcifica tions. Signed by: Ulises Galloway MD on 09/15/2018 2:04 PM Dictated By: AUGUSTINA GALLOWAY MD 1404 Transcrib ed By: MAGALY on 09/15/18 1404 COPY TO: GINO WALL MD Vancomycin Level Sysc4707-81-86 08:31:00* Test Item Value Reference Range Interpretation Comments Vancomycin Level Peak (test code = 4090-7) 32 20-40 [facility] StationVancomycin Level Snpj7333-84-20 08:31:00 * Test Item Value Reference Range Interpretation Comments Vancomycin Level Peak (test code = 4090-7) 32 20-40 [facility] StationVancomycin Level Bref9422-14-56 08:31:00 * Test Item Value Reference Range Interpretation Comments Vancomycin Level Peak (test code = 4090-7) 32 20-40 [facility] StationVancomycin Level Tpbvdr1036-56-10 05:11:00* Test Item Value Reference Range Interpretation Comments Vancomycin Level Trough (test code = 4092-3) 14.5 5.0-10.0 HH Results repeated and called to YUDY العراقي RN at 0510 on 09/15/18 by [employer] . Read back and verified.[facility] StationVancomycin Level Jstzje7533-68-86 05:11:00* Test Item Value Reference Range Interpretation Comments Vancomycin Level Trough (test code = 4092-3) 14.5 5.0-10.0 HH Results repeated and called to YUDY العراقي RN at 0510 on 09/15/18 by [employer] er. Read back and verified.[facility] StationVancomycin Level Megzuo8158-23-94 05:11:00* Test Item Value Reference Range Interpretation Comments Vancomycin Level Trough (test code = 4092-3) 14.5 5.0-10.0 HH Results repeated and called to YUDY اعلراقي RN at 0510 on 09/15/18 by [employer] . Read back and verified.[facility] StationActivated Partial Thromboplast Snlk2754-43-31 06:33:00* Test Item Value Reference Range Interpretation Comments Activated Partial Thromboplast Time (test code = 64184-2) 31.5 23.8-35.5 [facility] StationProthrombin Tvkz9723-66-21 06:05:00* Test Item Value Reference Range Interpretation Comments Prothrombin Time (test code = 5902-2) 13.3 11.9-14.5 [facility] StationProthromb Time International Ratio 2018-09-14 06:05:00* Test Item Value Reference Range Interpretation Comments Prothromb Time International Ratio (test code = 6301-6) 0.96 Oral Anticoagulant Therapy INR Values:1. Low Intensity Therapy 1.5 - 2.02 . Moderate Intensity Therapy 2.0 - 3.03. High Intensity Therapy(1) 2.5 - 3. 54. High Intensity Therapy(2) 3.0 - 4.05. Panic Value INR > 5.0 [facility] StationBlood Zorwaww5850-43-45 00:23:00* Test Item Value Reference Range Interpretation Comments Blood Culture (test code = 01636763) NO GROWTH AFTER 5 DAYS, FINAL REPORT [facility] Centerodium Yhxru4401-69-97 05:41:00* Test Item Value Reference Range Interpretation Comments Sodium Level (test code = 2951-2) 136 136-145 [facility] StationPotassium Cvava5593-65-24 05:41:00* Test Item Value Reference Range Interpretation Comments Potassium Level (test code = 2823-3) 4.0 3.5-5.1 [facility] StationChloride Jarrj3155-67-11 05:41:00* Test Item Value Reference Range Interpretation Comments Chloride Level (test code = 2075-0) 106 98-107 [facility] StationCarbon Dioxide Bhmxn2303-58-20 05:41:00* Test Item Value Reference Range Interpretation Comments Carbon Dioxide Level (test code = 2028-9) 21 22-29 L [facility] StationAnion Kxy7831-06-15 05:41:00* Test Item Value Reference Range Interpretation Comments Anion Gap (test code = 81739-8) 13.0 8-16 [facility] StationBlood Urea Rklbfozy9079-20-47 05:41:00* Test Item Value Reference Range Interpretation Comments Blood Urea Nitrogen (test code = 3094-0) 21 7-26 [facility] StationCreatinine2019-07-05 05:41:00* Test Item Value Reference Range Interpretation Comments Creatinine (test code = 2160-0) 1.63 0.72-1.25 H [facility] StationBUN/Creatinine Yxokd4737-65-31 05:41:00* Test Item Value Reference Range Interpretation Comments BUN/Creatinine Ratio (test code = 3097-3) 13 08-02 [facility] StationEstimat Glomerular Filtration Rate 2018-08-12 05:41:00* Test Item Value Reference Range Interpretation Comments Estimat Glomerular Filtration Rate (test code = 230355927) 43 >60 L Ranges were taken from the National Kidney Disease Education Program and the [facility] literature.Reference ranges:60 or greater: Qwvcyt57-96 ( for 3 consecutive months): Chronic kidney disease 15 or less: Kidney failureBaylor Scott & [facility] StationGlucose Zzmqv5348-19-47 05:41:00* Test Item Value Reference Range Interpretation Comments Glucose Level (test code = LAV1908) 309 74-118 H [facility] StationCalcium Sjali0948-96-45 05:41:00* Test Item Value Reference Range Interpretation Comments Calcium Level (test code = 87722-4) 8.2 8.4-10.2 L [facility] StationWhite Blood Vtfws5291-48-28 05:32:00* Test Item Value Reference Range Interpretation Comments White Blood Count (test code = 6690-2) 12.28 4.8-10.8 H [facility] StationRed Blood Qeatx0097-83-39 05:32:00* Test Item Value Reference Range Interpretation Comments Red Blood Count (test code = 789-8) 3.36 4.3-5.7 L [facility] StationHemoglobin2019-07-05 05:32:00* Test Item Value Reference Range Interpretation Comments Hemoglobin (test code = 48078-6) 12.3 14.0-18.0 L [facility] StationHematocrit2019-07-05 05:32:00* Test Item Value Reference Range Interpretation Comments Hematocrit (test code = 4544-3) 34.6 38.2-49.6 L [facility] StationMean Corpuscular Qfhahi3331-43-95 05:32:00* Test Item Value Reference Range Interpretation Comments Mean Corpuscular Volume (test code = 787-2) 103.0 81-99 H [facility] StationMean Corpuscular Agaglnluzb7731-58-36 05:32:00* Test Item Value Reference Range Interpretation Comments Mean Corpuscular Hemoglobin (test code = 785-6) 36.6 28-32 H [facility] StationMean Corpuscular Hemoglobin Concent 2018-08-12 05:32:00* Test Item Value Reference Range Interpretation Comments Mean Corpuscular Hemoglobin Concent (test code = 786-4) 35.5 31-35 H [facility] StationRed Cell Distribution Gjzdg3358-60-17 05:32:00* Test Item Value Reference Range Interpretation Comments Red Cell Distribution Width (test code = 49119-5) 12.4 11.7 -14.4 [facility] StationPlatelet Qlmnx9665-48-44 05:32:00* Test Item Value Reference Range Interpretation Comments Platelet Count (test code = 777-3) 200 140-360 [facility] StationNeutrophils (%) (Auto)2018-08-12 05:32:00 * Test Item Value Reference Range Interpretation Comments Neutrophils (%) (Auto) (test code = 91393-0) 60.9 38.7-80.0 [facility] StationLymphocytes (%) (Auto)2018-08-12 05:32:00 * Test Item Value Reference Range Interpretation Comments Lymphocytes (%) (Auto) (test code = 736-9) 25.6 18.0-39.1 [facility] StationMonocytes (%) (Auto)2018-08-12 05:32:00* Test Item Value Reference Range Interpretation Comments Monocytes (%) (Auto) (test code = 5905-5) 10.4 4.4-11.3 [facility] StationEosinophils (%) (Auto)2018-08-12 05:32:00 * Test Item Value Reference Range Interpretation Comments Eosinophils (%) (Auto) (test code = 713-8) 2.1 0.0-6.0 [facility] StationBasophils (%) (Auto)2018-08-12 05:32:00* Test Item Value Reference Range Interpretation Comments Basophils (%) (Auto) (test code = 706-2) 0.7 0.0-1.0 [facility] StationIM GRANULOCYTES %2018-08-12 05:32:00* Test Item Value Reference Range Interpretation Comments IM GRANULOCYTES % (test code = IM GRANULOCYTES %) 0.3 0.0- 1.0 [facility] StationNeutrophils # (Auto)2018-08-12 05:32:00* Test Item Value Reference Range Interpretation Comments Neutrophils # (Auto) (test code = 751-8) 7.5 2.1-6.9 H [facility] StationLymphocytes # (Auto)2018-08-12 05:32:00* Test Item Value Reference Range Interpretation Comments Lymphocytes # (Auto) (test code = 62580-5) 3.1 1.0-3.2 [facility] StationMonocytes # (Auto)2018-08-12 05:32:00* Test Item Value Reference Range Interpretation Comments Monocytes # (Auto) (test code = 742-7) 1.3 0.2-0.8 H [facility] StationEosinophils # (Auto)2018-08-12 05:32:00* Test Item Value Reference Range Interpretation Comments Eosinophils # (Auto) (test code = 711-2) 0.3 0.0-0.4 [facility] StationBasophils # (Auto)2018-08-12 05:32:00* Test Item Value Reference Range Interpretation Comments Basophils # (Auto) (test code = 704-7) 0.1 0.0-0.1 [facility] StationAbsolute Immature Granulocyte (auto 2018-08-12 05:32:00* Test Item Value Reference Range Interpretation Comments Absolute Immature Granulocyte (auto (riley t code = Absolute Immature Granulocyte (auto) 0.04 0-0.1 [facility] StationBlood Qvrnnzo0527-68-43 00:23:00* Test Item Value Reference Range Interpretation Comments Blood Culture (test code = 68000880) NO GROWTH AFTER 72 HOURS [facility] StationVancomycin Level Ntyllo6344-06-56 22:32:00* Test Item Value Reference Range Interpretation Comments Vancomycin Level Trough (test code = 4092-3) 5.9 5.0-10.0 [facility] StationCT RIGHT LOWER EXTREMITY Z5000-74-65 02:50:00 [facility] [address] [address] Patient Name: ANKUR DEGROOT MR #: [id number] : 1955 Age/Sex: 63/M Req #: [id number] Adm Physician: PAT PATTEN MD Ordered by: AAKASH SHARIF DO Report #: [id number] Location: [facility] Room/Bed: [place] [address] Procedure: [id number] CT /CT RIGHT LOWER EXTREMITY W Exam Date: Exam Time: REPORT STATUS: Signed CT Lower e xtremity right with contrast, with reconstructions. CPT code: 88702, 27875 Indications: Abscess. Technique: Contiguous 2.5 mm thickness axial angy ges were obtained from the right hip to the medial tibia. 100 cc of intravenou s contrast was administered. RADIATION DOSE: Total DLP: 464.7 mGy* cm Estimated effective dose: (DLP x 0.015 x size factor) mSv CT DIvol has been reviewed. It is below the limits set by the Radiation Protocol Committee (RPC). Dose reduction techniques used: Automated exposure control , adjustment of the mAs and/or kVp according to patient size, standardized low -dose protocol, and/or iterative reconstruction technique. Comparison: No ne. Findings: Subcutaneous loculated fluid collection in the distal media l right thigh measures 5.0 x 4.5 x 8.7 cm. There is surrounding subcutaneous e freddie. There are calcifications at the superior and inferior aspect of the sol ection. The greater saphenous vein lies superior and posterior to this collect ion. No additional fluid collections. Visualized intrapelvic structure s demonstrate a spiculated calcification the posterior bladder measuring 1.7 c m. There is a dependently layering calcification along the posterior wall to t he left of midline measuring 4 mm. There are calcifications in the prostate gl and. Visualized bowel is unremarkable. No evidence of lymphadenopathy. Bones: Mild degenerative changes of the right hip with a bone island in the femoral head. Postoperative changes of the knee from ACL repair. No knee or hip effusion. No focal osseous lesions. IMPRESSION: 1. Loculated fl uid collection in the medial and inferior right thigh with adjacent cellulitis . The differential includes abscess, seroma, or lymphocele. 2. Intraluminal bladder calculi suggestive of stasis. 3. Postoperative changes of the right knee as described above. Thank you for this referral. Signed by: Dr. Samantha Dill MD on 08/09/2018 2:58 AM Dictated By: SAMANTHA DILL MD 7 Transcribed By: MAGALY on 08/09/18257 COPY TO: AAKASH SHARIF DO Total Zmbjwrwxk2707-91-94 01:00:00* Test Item Value Reference Range Interpretation Comments Total Bilirubin (test code = 1975-2) 2.1 0.2-1.2 H [facility] StationAspartate Amino Transf (AST/SGOT) 2018-08-09 01:00:00* Test Item Value Reference Range Interpretation Comments Aspartate Amino Transf (AST/SGOT) (test code = Aspartate Amino Transf (AST/SGOT)) 16 5-34 [facility] StationAlanine Aminotransferase (ALT/SGPT) 2018-08-09 01:00:00* Test Item Value Reference Range Interpretation Comments Alanine Aminotransferase (ALT/SGPT) (test code = 1742-6) 25 0-55 [facility] StationTotal Qogehiw6090-74-28 01:00:00* Test Item Value Reference Range Interpretation Comments Total Protein (test code = 2885-2) 7.1 6.5-8.1 [facility] StationAlbumin2019-07-02 01:00:00* Test Item Value Reference Range Interpretation Comments Albumin (test code = 1751-7) 3.4 3.5-5.0 L [facility] StationGlobulin2019-07-02 01:00:00* Test Item Value Reference Range Interpretation Comments Globulin (test code = 89929-6) 3.7 2.3-3.5 H [facility] StationAlbumin/Globulin Kxjkc6248-48-95 01:00:00 * Test Item Value Reference Range Interpretation Comments Albumin/Globulin Ratio (test code = 1759-0) 0.9 0.8-2.0 [facility] StationAlkaline Axzrnqpvcgf8820-14-50 01:00:00* Test Item Value Reference Range Interpretation Comments Alkaline Phosphatase (test code = 6768-6) 62 40-150 [facility] StationCHEM HHGLC7937-99-09 12:07:001.4[facility]annCHEM AKALU9060-44-74 12:07:0057[facility]annCHEM ODECP6536-46-34 12:07:003.6[facility]annCHEM SWVFV4319-88-34 12:07:00* Test Item Value Reference Range Interpretation Comments A/G Ratio (test code = A/G Ratio) 0.9 1 0.7-1.6 [facility] HermannCHEM CSSZP8935-27-91 12:07:0036[facility] HermannCHEM PANEL 2017-10-17 12:07:00* Test Item Value Reference Range Interpretation Comments B/C Ratio (test code = B/C Ratio) 19 1 6-25 [facility] HermannCHEM VYLOQ4950-58-44 12:07:003.3[facility] HermannCHEM PANEL 2017-10-17 12:07:006.9[facility] HermannCHEM OCHSO5625-68-42 12:07:0060[facility] HermannCHEM IUNPT5479-37-70 12:07:0030[facility] HermannCHEM GQOLG4581-78-00 12:07:001.5[facility] HermannCHEM VZVNG8125-64-89 12:07:40957Bhlpfbof HermannCHEM RFHNC8371-76-58 12:07:33916Nabggpjq HermannCHEM TVWTL9793-60-02 12:07:0025 [facility]annCHEM YRVOP2284-03-94 12:07:0012.7[facility] HermannCHEM PANEL 2017-10-17 12:07:008.7[facility] HermannCHEM GYOHU3356-06-09 12:07:003.7[facility] HermannCHEM XKSJD3686-72-62 12:07:0025[facility] HermannCHEM ONTHD0787-25-41 12:07:21636Zlhmkwox HermannCHEM QHLNI8284-19-83 12:07:001.32[facility] HermannCHEM QFFVC1460-62-37 12:07:001.9[facility] ZphxvgoHMKYRABSNB1695-58-59 12:07:008.5 [facility] WwbsahjFZHDXHIIYC0690-67-18 12:07:61612Tymkcqij HermannHEMATOLOGY 2017-10-17 12:07:0014.0[facility] NmelgkoTJAWMGMVES5256-72-61 12:07:0034.7[facility] XbgqjfuEIOIDBKZIB1240-91-88 12:07:00* Test Item Value Reference Range Interpretation Comments MCH (test code = MCH) 37.9 pg 27.0-31.0 [facility] NvrsutxUVOTPLTQYB3242-34-57 12:07:0013.8[facility] HermannHEMATOLOGY 2017-10-17 12:07:003.64[facility] YjbwubxFRYZBLGURA8764-85-87 12:07:008.1[facility] CyoaslrTZFOUVDPID6156-00-61 12:07:77109.2[facility] KtccyniBIRDADUVCD3004-80-66 12:07:0039.7[facility] HysyepcBIODOQGALB5371-38-22 12:07:002.1[facility] FQUYXQLHGK5972-89-30 12:07:000.2[facility] LzsrkrsNWJEFHCXDO4964-60-76 12:07:001.0 [facility] BtrbrfxLQJMTAWSSY0296-89-43 12:07:0012.7[facility] HermannHEMATOLOGY 2017-10-17 12:07:0025.7[facility] QhinhudOZFLEXNSUX8141-43-74 12:07:002.5[facility] MndtzbgIKLRPLBYQG8594-24-84 12:07:000.1[facility] GwraihqCMGWSJMLEM8014-95-75 12:07:004.7[facility] VnivxwvGMPDJGNOEU1345-22-45 12:07:001.1[facility] OPSHOKPEDV7482-60-53 12:07:0058.0[facility] HermannDRUG ICKJKY8266-64-32 15:41:00 Positive *ABN*(10/16/17 10:41 AM)[facility]annDRUG OCCIWR2612-01-70 15:41:00 Negative *NA*(10/16/17 10:41 AM)[facility] HermannDRUG WRPHRG0222-18-43 15:41:00 Negative *NA*(10/16/17 10:41 AM)[facility]annDR[facility] IOAFCR4348-82-51 15:41:00 Negative *NA*(10/16/17 10:41 AM)[facility]annDRUG QFWXQB8124-23-20 15:41:00 Negative *NA*(10/16/17 10:41 AM)[facility]annDRUG VMCKEB7283-96-46 15:41:00See Note (10/16/17 10:41 AM)[facility]annDRUG YEKJZA2252-94-17 15:41:00Positive *ABN*(10/16/17 10:41 AM)[facility] HermannDRUG DCFIAD4671-73-69 15:41:00Negative *NA*(10/16/17 10:41 AM)[facility]annURINE AND ZZCLO1713-92-16 15:41:00<1 [facility]annUR[facility] AND EPKAS1785-40-69 15:41:00<1[facility]annUR[facility] AND YISPT5759-34-63 15:41:00Negative (10/16/17 10:41 AM)[facility] AND EIKKL1267-10-04 15:41:00Negative (10/16/17 10:41 AM)[facility]annUR[facility] AND BZPZR4771-55-49 15:41:00Negative (10/16/17 10:41 AM)[facility]annUR[facility] AND RFJEI8479-63-32 15:41:00Negative *NA*(10/16/17 10:41 AM)[facility]annUR[facility] AND VLBNO9361-70-62 15:41:00* Test Item Value Reference Range Interpretation Comments UA pH (test code = UA pH) 5.5 1 5.0-8.0 [facility]ann[facility] AND KGIQR2217-80-26 15:41:00* Test Item Value Reference Range Interpretation Comments UA Spec Grav (test code = UA Spec Grav) 1.036 1 [facility]annUR[facility] AND PILDQ0191-11-31 15:41:00Yellow *NA*(10/16/17 10:41 AM) [facility] AND JKXCS2913-15-90 15:41:00Clear (10/16/17 10:41 AM) [facility] HermannCARDIAC NNOCEIY1915-50-53 14:49:00<0.02[facility] HermannANEMIA WDTHA4011-78-86 11:04:009.8[facility] HermannANEMIA BFDMD8824-73-11 11:04:17360 [facility]annCARDIAC OOCIMBD1022-64-24 11:04:00<0.02[facility] HermannCHEM VLNLN4885-99-67 11:04:001.4[facility] HermannCHEM OORMH6726-08-79 11:04:003.4 [facility] ErzkweaWWKRPE4833-22-27 11:04:60259Msnssvrk FdldxfjIFLQTJ6532-72-35 11:04:00* Test Item Value Reference Range Interpretation Comments VLDL (test code = VLDL) 33 1 [facility] IywjeeyEHAEYR4672-81-21 11:04:37771Ipgfwipu LhacokwZEXXBM9539-76-40 11:04:34433Knmjtxcn OrzeiizFFTLAA2224-89-60 11:04:0058[facility] HermannLIPIDS 2017-10-16 11:04:00* Test Item Value Reference Range Interpretation Comments CHD Risk (test code = CHD Risk) 3.52 1 4.00-7.30 [facility]annSPECIAL RPPKMSHMS8435-96-16 11:04:007.8[facility] HermannCARDIAC BTBDHKJ1598-99-22 06:00:00<0.02[facility] HermannCARDIAC JARXFHO0568-13-10 06:00:0045[facility] HermannCHEM ENABY2697-64-05 06:00:00* Test Item Value Reference Range Interpretation Comments B/C Ratio (test code = B/C Ratio) 16 1 6-25 [facility] HermannCHEM KABYG5252-89-51 06:00:0016.1[facility] HermannCHEM PANEL 2017-10-16 06:00:00* Test Item Value Reference Range Interpretation Comments A/G Ratio (test code = A/G Ratio) 1.0 1 0.7-1.6 [facility] HermannCHEM YRZZR3288-86-20 06:00:003.7[facility] HermannCHEM PANEL 2017-10-16 06:00:000.8[facility] HermannCHEM HTSCA5726-04-16 06:00:0049[facility] HermannCHEM VHHOO0747-13-69 06:00:0059[facility] HermannCHEM BCXHA5024-79-82 06:00:0055[facility] HermannCHEM EQWMN9940-47-56 06:00:0050[facility] HermannCHEM YIOQJ8027-32-35 06:00:008.8[facility] HermannCHEM GJYAZ8782-98-82 06:00:0023 [facility] HermannCHEM UBOIA7270-10-81 06:00:66345Nxyfnknj HermannCHEM PANEL 2017-10-16 06:00:004.1[facility] HermannCHEM CGPLG3335-58-73 06:00:003.8[facility] HermannCHEM UEOIM6791-71-97 06:00:007.5[facility] HermannCHEM UJOFQ1381-70-42 06:00:11771Ouukugwe HermannCHEM ABVFM0678-00-98 06:00:001.48[facility] HermannCHEM LMTQU1171-65-14 06:00:0023[facility] HermannCHEM IYSWR7685-70-18 06:00:90858 [facility] GqvzifhOBSQBDLLPI1677-58-74 06:00:008.2[facility] HermannHEMATOLOGY 2017-10-16 06:00:0014.4[facility] RgllqioPNFJWKDLHH8850-39-00 06:00:008.3[facility] JxbjgbsPTHEAXKSXK4410-44-27 06:00:003.82[facility] ZmznssuBWALMIECDX6181-82-50 06:00:0042.2[facility] PzkabvvHAWAROUKKF3049-38-35 06:00:46152.4[facility] ZWVVCKREPU3758-96-88 06:00:0014.1[facility] AtlprjoVHFBLFPTVG6473-01-62 06:00:00 201[facility] WvviqyeIOIQRRKPGC1841-98-23 06:00:00* Test Item Value Reference Range Interpretation Comments MCH (test code = MCH) 37.8 pg 27.0-31.0 [facility] GduvgioLDLAUCUSGD3983-18-50 06:00:0034.2[facility] HermannHEMATOLOGY 2017-10-16 06:00:00* Test Item Value Reference Range Interpretation Comments PT (test code = PT) 13.7 s 12.0-14.7 [facility] UuebuyeFXIFJGURPE2166-87-65 06:00:00* Test Item Value Reference Range Interpretation Comments INR (test code = INR) 1.05 1 0.85-1.17 [facility] DgfdrquUUVWSKXHGH4773-15-66 06:00:00* Test Item Value Reference Range Interpretation Comments PTT (test code = PTT) 30.3 s 22.9-35.8 [facility] SdbbgrrMOLAXTQJIA0697-10-11 06:00:000.2[facility]Y 2017-10-16 06:00:000.1[facility] BsvrgwvTXVJMVQYLI7031-86-52 06:00:003+ *NA*(10/16/17 1:00 AM)[facility] XmrzxkpUFMCLXCDDD1475-86-80 06:00:000.9[facility] KctxohxNNWKBRELFT7236-92-44 06:00:0052.5[facility] IvgckpbHIAYBATDMW2133-19-26 06:00:0033.7[facility] QtjtfboBHLAUBAWYW6148-32-25 06:00:0010.3[facility] LYUUSDVDQX5801-81-65 06:00:002.8[facility] GmfyzeeIJSLUDZNKJ6559-61-32 06:00:002.2 [facility] AxfpmgkOHNFZLWKBV7282-78-53 06:00:001.3[facility] HermannHEMATOLOGY 2017-10-16 06:00:004.3[facility] HermannCHEM KDFPP5104-46-18 05:58:0048[facility]annCHEM RLLLR4587-69-06 05:58:0015.6[facility] HermannCHEM MXJZV0394-07-78 05:58:45971Gtmgdqhi HermannCHEM TMQTX6233-43-57 05:58:001.00[facility] HermannCHEM IWDGN8734-27-07 05:58:0024[facility]annCHEM AMWKI7495-39-97 05:58:001.5 [facility]annCHEM HPEES9597-33-10 05:58:004.3[facility] HermannCHEM PANEL 2017-10-16 05:58:79080Hgflvbfj HermannCHEM DAPJU0092-58-52 05:58:51623Mdldxuib HermannCHEM PNXLS5806-04-95 05:58:0021[facility]annCHEM ZTWXB2795-33-45 05:58:0020.0[facility]annCHEM ULDQU4368-25-09 05:58:0046.0[facility] CARDIAC UQAUROZ9261-04-99 19:30:05994Cakrwfgn GmzvcogLVPQCXQEHBUR9547-09-08 19:30:0012.0[facility] WktfuylQWZBIHWFSIAD2140-02-87 19:30:0046[facility] DJHZQKHAYKJE7890-44-34 19:30:0029[facility] OchjultKTMZXKXQATWD1275-27-25 19:30:00 9.7[facility] IbuvwayQUUQOOPMOJST5161-89-40 19:30:005.0[facility] VBMRWTYSJQZY1373-46-74 19:30:53290Orpxmrcn MkdvszoAWRIZVMUSQET5080-17-66 19:30:0032[facility] BjzffibYJQJWNFZZBEB5906-62-27 19:30:001.57[facility] UIGYCOKPFHZQ3173-57-25 19:30:10631Iwtnests YvgklykRJRAKDLEZPUT4416-84-73 19:30:64804Xbgrcrsa EllnfdqLDUPOEZSGF3467-42-53 19:30:000.3[facility] KYKFIFEBEZ9222-93-16 19:30:000.2[facility] KbvfmeoPMCDSWPBAP3871-54-20 19:30:002.4 [facility] HxvsynzTIBCDPOZPS3902-56-81 19:30:000.9[facility]annHEMATOLOGY 2017-06-03 19:30:002.5[facility] MmmtfqcORKPTVYAMP2534-40-13 19:30:002.4[facility] ZtrzqnwOSXEQLWJKK8358-26-25 19:30:0038.6[facility] MnqfrqmXFWDQKYWQZ7738-30-07 19:30:0014.3[facility] MrsxvrwGYGBQJXMNI5973-13-02 19:30:0039.3[facility] KNYOPFZJRL7637-97-89 19:30:005.3[facility] QkbeqnwQFNQRDIILN9064-56-65 19:30:00 34.1[facility] ClumeefFMJOUYEWXI7042-91-65 19:30:0016.4[facility]annHEMATOLOGY 2017-06-03 19:30:009.0[facility] FghasyqNLGLXYBNXM6194-12-56 19:30:00* Test Item Value Reference Range Interpretation Comments MCH (test code = MCH) 35.2 pg 27.0-31.0 [facility] RbdnsutQUKWCOWXIU1912-03-71 19:30:00750Mvbkbgtl HermannHEMATOLOGY 2017-06-03 19:30:006.2[facility] MxujwtmYTATGHHURN8582-48-86 19:30:38689.3[facility] ObggdqvMZMJBSFGLW2649-23-39 19:30:0045.8[facility] FykrcsqVXOQLKMCWW3499-57-08 19:30:0015.6[facility] SpevnquPHZJSFMELO7242-88-86 19:30:004.43[facility] CARDIAC NZDDSTY1019-11-43 21:30:218666Ibyecldr HermannCHEM IJKQD6399-32-68 21:30:00* Test Item Value Reference Range Interpretation Comments A/G Ratio (test code = A/G Ratio) 0.9 1 0.7-1.6 [facility]annCHEM SHXQV6625-93-39 21:30:0011.6[facility] HermannCHEM PANEL 2017-04-05 21:30:00* Test Item Value Reference Range Interpretation Comments B/C Ratio (test code = B/C Ratio) 11 1 6-25 [facility]annCHEM RYMEF8356-67-57 21:30:004.3[facility] HermannCHEM PANEL 2017-04-05 21:30:0057[facility] HermannCHEM WAGOU9123-45-17 21:30:001.32[facility] HermannCHEM QQRRZ9303-45-02 21:30:0014[facility]annCHEM HJFPK9906-83-34 21:30:41117Qtgzthgk HermannCHEM LJZYA0720-68-02 21:30:008.1[facility]annCHEM FQRPQ8163-17-17 21:30:0020[facility]annCHEM XXTQJ9432-27-80 21:30:003.8 [facility]annCHEM HQNHP3358-76-21 21:30:11854Lowhrhjn HermannCHEM PANEL 2017-04-05 21:30:0017[facility]annCHEM OTODU6838-69-54 21:30:009.6[facility]annCHEM UHWSL8523-21-99 21:30:0028[facility]annCHEM RWNWN3508-54-44 21:30:004.6[facility] HermannCHEM BMCAM2796-38-41 21:30:57891Shqsgrvo HermannCHEM BHNFG4073-38-42 21:30:41100Oxcedimg HermannCHEM AYDDR5037-18-43 21:30:000.9 [facility] YgfygzrLLOIQHUAFI4586-80-27 21:30:09499Bixymheu HermannHEMATOLOGY 2017-04-05 21:30:0021.4[facility] JonorxxPEHIQQGNHE7573-07-63 21:30:0033.9[facility] KghotthQATVSIQYHM9658-10-95 21:30:00* Test Item Value Reference Range Interpretation Comments MCH (test code = MCH) 34.4 pg 27.0-31.0 [facility] ClraedlVTTARJWFBO3955-89-23 21:30:39538.6[facility] HermannHEMATOLOGY 2017-04-05 21:30:0041.0[facility] LtmtcrgJOVBACRMRU2212-17-81 21:30:008.0[facility] LzqrrtfRJVDSRXWSX5102-65-59 21:30:004.04[facility] NndkcwiCJDGZCNRHP4743-61-32 21:30:0013.9[facility] ZsceyvgZZKPJKAWHM1953 21:30:008.1[facility] XUCONUQUMY6452-93-20 21:30:004.2[facility] KjzjyslWBBBFHLYUX0882-51-21 21:30:007.3 [facility] GtmdgydWBHRWDRDOJ9109-43-76 21:30:001.0[facility]annHEMATOLOGY 2017-04-05 21:30:0016.1[facility] UedneuyTGNEAQFKYO4128-45-91 21:30:0022.9[facility] DrorauuRQLGDDMEGB2804-87-41 21:30:0052.7[facility] ZamlqgoVBUAXQMTFK8119-27-60 21:30:000.1[facility] GovkiauGYLZRWEXAA4793-49-59 21:30:001.8[facility] HYATGWNDAB1889-60-18 21:30:001.3[facility] UutumtbTYXYGQASHL0771-21-07 21:30:000.6 [facility]annCHEM HVYTK2461-28-09 14:45:0063[facility]annCHEM PANEL 2017-03-07 14:45:001.1[facility] HermannCHEM WEIYM0039-05-68 14:45:0079[facility]annCHEM RBBLT8663-45-01 14:45:0030[facility]annCHEM JQPAY5098-03-28 14:45:002.0[facility]annCHEM NCWEX7748-76-97 14:45:006.1[facility]annCHEM LJTSZ1423-73-15 14:45:008.6[facility]annCHEM KTJSS4479-80-99 14:45:0027 [facility]annCHEM EVFQO5244-03-65 14:45:0027[facility]annCHEM PANEL 2017-03-07 14:45:0013[facility] HermannCHEM HMOUZ3821-63-47 14:45:004.0[facility]annCHEM VIVEG8709-62-27 14:45:67050Qzucnvui HermannCHEM DZCKD7962-49-43 14:45:48649Tfamvepg HermannCHEM VUBCO6769-54-46 14:45:03398Dgfdpqzf HermannCHEM REKSW7741-45-81 14:45:001.21[facility]annCHEM XKDUS3095-06-59 14:45:00* Test Item Value Reference Range Interpretation Comments A/G Ratio (test code = A/G Ratio) 0.5 1 0.7-1.6 [facility]annCHEM ERHUV4393-41-38 14:45:004.1[facility] HermannCHEM PANEL 2017-03-07 14:45:0011.0[facility]annCHEM RHDJK4342-36-08 14:45:00* Test Item Value Reference Range Interpretation Comments B/C Ratio (test code = B/C Ratio) 11 1 6-25 [facility] OncxamzNLQNITKXFM6956-71-62 14:45:47787Jijqpjmc HermannHEMATOLOGY 2017-03-07 14:45:0022.2[facility] GamjuyaLYHWFWVDOX3951-93-92 14:45:009.1[facility] RqryoovERGBETWXXM2529-44-87 14:45:003.44[facility] PnugwouXOFWLAOLRN2817-76-70 14:45:0010.8[facility] HxrgxmiPZSXQHZQQN7486-94-14 14:45:0011.3[facility] GCCIMVVRBI8312-57-92 14:45:0033.5[facility] XokzrgpWKSSSUQBET5406-95-56 14:45:00 32.3[facility] AqkrqcvVJYTMSNJLA9723-49-66 14:45:00* Test Item Value Reference Range Interpretation Comments MCH (test code = MCH) 31.4 pg 27.0-31.0 [facility] OlmoufpURSAGXGNME2372-44-41 14:45:0093.7[facility] HermannHEMATOLOGY 2017-03-07 14:45:00Moderate *ABN*(03/07/17 8:45 AM)[facility] HermannHEMATOLOGY 2017-03-07 14:45:001+ *ABN*(03/07/17 8:45 AM)[facility] TqsgvszEVPEPNNQAW1481-05-81 14:45:005.4[facility] SbedqqnCXDCLFIPDY9548-78-25 14:45:006.8[facility] XWAHPWHIEX3155-23-25 14:45:000.9[facility] AmycotbKWFRVUCABR0128-14-34 14:45:001.9 [facility] AivwpjxPJJVFAEGOZ3227-36-08 14:45:001.9[facility] HermannHEMATOLOGY 2017-03-07 14:45:000.1[facility] PijtlwbBZINUIKZHQ9230-93-51 14:45:000.6[facility] GedoiqfHQEIATBGLO3660-00-61 14:45:00Normal (03/07/17 8:45 AM)[facility] OEUTAOIUKP9634-03-10 14:45:0016.5[facility] WyfhorcNDAYQPZLLN2280-37-88 14:45:00 60.4[facility] NiauilaRZZTWIOXTC8497-03-67 14:45:0016.8[facility] HermannCHEM PANEL 2017-03-05 20:37:0069[facility] HermannCHEM JWIXC7205-80-84 20:37:001.0[facility] HermannCHEM AFHFQ2557-44-78 20:37:003.8[facility]annCHEM LBQSD4849-24-85 20:37:006.0[facility]annCHEM BOLHV5942-80-00 20:37:0028[facility]annCHEM VXMLS9842-56-39 20:37:00* Test Item Value Reference Range Interpretation Comments A/G Ratio (test code = A/G Ratio) 0.6 1 0.7-1.6 [facility]annCHEM WKKIK7123-72-09 20:37:002.2[facility] HermannCHEM PANEL 2017-03-05 20:37:0030[facility] HermannCHEM YZUVS2258-90-36 20:37:0054[facility]annCHEM RPBZZ3149-82-37 20:37:001.37[facility] HermannCHEM ARBZP1006-08-15 20:37:0099[facility]annCHEM GRFYC5226-56-25 20:37:004.0[facility] HermannCHEM EGHKR8625-11-71 20:37:36770Emakjste HermannCHEM FZJAA6538-11-42 20:37:00* Test Item Value Reference Range Interpretation Comments B/C Ratio (test code = B/C Ratio) 12 08-02 [facility]annCHEM MDDLV3037-78-97 20:37:009.0[facility] HermannCHEM PANEL 2017-03-05 20:37:008.2[facility] HermannCHEM WXOZG7683-05-45 20:37:0028[facility]annCHEM TOZSE4218-47-62 20:37:0016[facility] HermannCHEM AAKPE7278-36-64 20:37:20811Cgrjeisk DgngbsiLZXRGHBZUA6251-53-78 20:37:001.4[facility] RYYQOUMSHS6252-56-69 20:37:001+ *ABN*(03/05/17 2:37 PM)[facility]annHEMATOLOGY 2017-03-05 20:37:000.1[facility] VtvhtxuTWNTEBTHQT1724-23-46 20:37:000.5[facility] VdhikxsTVPHQTWUNE3040-12-34 20:37:000.7[facility] VbarznzPBMYXLMGNC3586-26-55 20:37:004.8[facility] KpmpjruBMBGKTGYHP6305-92-35 20:37:0012.3[facility] LWCFCRWWZV9339-35-94 20:37:0018.3[facility] SfihvcfQBRXKGLODE0302-52-12 20:37:00 63.9[facility] UbzgiwhZLIEWSXCXR6342-51-18 20:37:002.0[facility]annHEMATOLOGY 2017-03-05 20:37:007.1[facility] ZzxrlglJSIHMKEQTY1313-23-05 20:37:009.4[facility] CfetknaMTHZPPMUGR2248-57-04 20:37:80499Ckmiaqsf PkjoufuEOPZFHIBWD5614-66-24 20:37:0033.3[facility] TinfhnqBBESWHWHUP0028-07-72 20:37:0021.7[facility] IXAMOQGGKM9662-06-69 20:37:00* Test Item Value Reference Range Interpretation Comments MCH (test code = MCH) 31.0 pg 27.0-31.0 [facility] XflcnkcIEKVIVZSZY9649-02-14 20:37:0011.1[facility] HermannHEMATOLOGY 2017-03-05 20:37:003.43[facility] TrsyvbcOOKYNSSGHC5805-04-20 20:37:0010.6[facility] QpdztaiZWXOWQDOMH5417-82-64 20:37:0031.9[facility] QtlzndwXSYRUIWDYC5112-38-26 20:37:0093.1[facility] LyrqnvkYPRKMURGYLEP9951-09-30 11:24:004.5[facility] CHEM GNLZZ2799-45-50 16:15:0062[facility] HermannCHEM KLZGU3448-96-42 16:15:001.23 [facility]annCHEM KAZQV1027-15-03 16:15:94676Iembwpuf HermannCHEM PANEL 2017-03-04 16:15:86821Zdcyyttx HermannCHEM ONGGS0861-40-32 16:15:0021[facility] HermannCHEM BOMRI6799-43-99 16:15:0030[facility]annCHEM VKKIU8885-12-48 16:15:008.3[facility] HermannCHEM PKQCN8369-35-97 16:15:75427Patsytyk HermannCHEM FQEWP1961-84-99 16:15:0029[facility]annCHEM TXJGL5571-76-35 16:15:002.1 [facility]annCHEM EGKPC0227-91-19 16:15:0060[facility]annCHEM PANEL 2017-03-04 16:15:001.3[facility] HermannCHEM FJBTN2893-62-44 16:15:005.8[facility] HermannCHEM UEPVT9552-77-88 16:15:0032[facility] HermannCHEM PEGDP2972-27-00 16:15:00* Test Item Value Reference Range Interpretation Comments B/C Ratio (test code = B/C Ratio) 17 1 6-25 [facility]annCHEM QURDJ8247-26-88 16:15:008.9[facility] HermannCHEM PANEL 2017-03-04 16:15:003.7[facility] HermannCHEM DVZBU8561-26-80 16:15:00* Test Item Value Reference Range Interpretation Comments A/G Ratio (test code = A/G Ratio) 0.6 1 0.7-1.6 [facility] EkjqwqyGVWCMZZVLD7415-23-99 16:15:0015.8[facility]annHEMATOLOGY 2017-03-04 16:15:0062.5[facility] IiplvvrWKGGGAHUFK8823-02-04 16:15:000.3[facility] BcvpbbsVCGXEUGVGY6680-73-13 16:15:006.2[facility] WvfmuunTCTCYFTWSH4950-64-13 16:15:0015.2[facility] WzthrzaQCUGUQNFXY1054-36-96 16:15:001.7[facility] MTAXWXLKQF4686-84-14 16:15:006.9[facility] UuswxuuUOKHYSCUJA7418-47-48 16:15:001.8 [facility] KwowrxyAFHJZZDWDJ1690-70-29 16:15:000.7[facility]annHEMATOLOGY 2017-03-04 16:15:001+ *ABN*(03/04/17 10:15 AM)[facility]annHEMATOLOGY 2017-03-04 16:15:009.2[facility] WoupqnyOAVMQJAGFW9752-54-94 16:15:0010.4[facility] DodicayQAOHNJYVHM5650-37-77 16:15:003.37[facility] DsgmwevXLOZHDSNPC5604-67-28 16:15:0011.1[facility] QawbrkyZEKABAXGMG4513-16-66 16:15:54207Keheundj [facility] DBHNNJPCHY3358-21-93 16:15:0021.3[facility] ApbxmnfMWGPLIGXDN7450-04-20 16:15:00 33.1[facility] ZllqxnmGPONFAMLAF1922-25-36 16:15:00* Test Item Value Reference Range Interpretation Comments MCH (test code = MCH) 30.8 pg 27.0-31.0 [facility] XqpexvuAIYDIYXAEU2680-00-85 16:15:0093.1[facility] HermannHEMATOLOGY 2017-03-04 16:15:0031.4[facility] HermannSPECIAL RHKPNOUMK2957-93-08 16:15:006.9 [facility]annURINE AND LZCPE8417-79-68 08:52:00<1[facility] AND NZEAQ0367-87-31 08:52:00Negative (03/04/17 2:52 AM)[facility] KIZOM9832-09-52 08:52:002.0[facility]UR[facility] AND VPEAH4889-15-87 08:52:00 Negative (03/04/17 2:52 AM)[facility] LDPQX3271-59-37 08:52:00 Negative (03/04/17 2:52 AM)[facility] GSHNL0075-22-69 08:52:00* Test Item Value Reference Range Interpretation Comments UA Spec Grav (test code = UA Spec Grav) 1.009 1 [facility] PVNHE5528-77-81 08:52:00* Test Item Value Reference Range Interpretation Comments UA pH (test code = UA pH) 7.0 1 5.0-8.0 [facility] BJWCW4142-10-69 08:52:00Negative *NA*(03/04/17 2:52 AM) [facility] MAKUA7736-67-20 08:52:00Yellow *NA*(03/04/17 2:52 AM) [facility] MBJME5254-99-60 08:52:00Clear (03/04/17 2:52 AM) [facility] ElagslzFBWPWUUSNL0198-78-19 15:17:00Moderate *ABN*(03/03/17 9:17 AM) [facility] DetehzcYUDDYTHJAM0979-30-81 15:17:001+ *ABN*(03/03/17 9:17 AM)[facility] UgxtyhbUGUSHGZFPT6627-73-47 15:17:000.1[facility] HermannSPECIAL CHEMISTRY 2017-03-03 15:17:007.2[facility] HermannANEMIA NENWC7317-76-70 17:42:0011.0 [facility] HermannANEMIA VMXXF8351-78-01 17:42:18652Ganlfygf HermannANEMIA STUDY 2017-03-02 17:42:24354Ltbrtvga HermannANEMIA VSCWC1076-76-39 17:42:40328Myratspo HermannANEMIA KHUZI6544-02-39 17:42:0041[facility] HermannANEMIA YERMR3739-12-28 17:42:0022Mem[facility] HermannANEMIA PFAQG2376-05-95 17:42:69749Bhxbgvni [facility] ANEMIA DMPZW3547-47-87 17:42:48782Cwjgjqgx HermannCHEM YZEMC8935-78-38 12:19:00 1.8[facility] HermannCHEM TOLJM3434-38-54 12:19:002.1[facility] HermannHEMATOLOGY 2017-03-02 12:19:000.0[facility] InuylpzYDTTNTNBYE0292-13-96 12:19:001[facility] KayalatOEVFERBAZW6337-64-85 12:19:00Normal (03/02/17 6:19 AM)[facility] GPVVRYTIFX1674-77-72 12:19:002.0[facility] FjszznsNDQGCBPMUY3295-05-38 12:19:000.0 [facility]annBLOOD BANK PXIOXWY1107-65-17 09:59:00Negative (03/01/17 3:59 AM) [facility]annCHEM EBGQS6432-91-25 09:59:001.9[facility] HermannCHEM PANEL 2017-03-01 09:59:002.6[facility] LirmdixMVRNPZFWYJ8254-73-99 09:59:00* Test Item Value Reference Range Interpretation Comments PT (test code = PT) 17.2 s 12.0-14.7 [facility] NaavccpNCCUSVULNI0806-82-49 09:59:00* Test Item Value Reference Range Interpretation Comments INR (test code = INR) 1.40 1 0.85-1.17 [facility] SlxwdvfMXWOZNMZMM3272-08-59 09:59:00* Test Item Value Reference Range Interpretation Comments PTT (test code = PTT) 34.6 s 22.9-35.8 [facility] HermannPARATHYROID XARVNBC6462-38-37 09:59:001.19[facility] PARATHYROID BTWLTSE7683-08-02 09:59:001.20[facility] HermannCHEM SWSNV6617-64-74 13:40:000.24[facility] HermannCHEM LJUKA5434-79-70 08:35:000.6[facility] HermannCHEM BPXSO9219-03-47 08:35:002.4[facility] HermannCHEM RBGOD9427-89-50 08:35:002.0 [facility] HermannCHEM BWXXV5347-77-37 08:35:002.2[facility] HermannHEMATOLOGY 2017-02-28 08:35:00* Test Item Value Reference Range Interpretation Comments PT (test code = PT) 17.1 s 12.0-14.7 [facility]WvsrqmpIKCCAHAEUS0362-88-25 08:35:002.42[facility] HermannHEMATOLOGY 2017-02-28 08:35:00* Test Item Value Reference Range Interpretation Comments INR (test code = INR) 1.39 1 0.85-1.17 [facility] HospitalFrfiokjSLRZRMDNRI6938-81-32 08:35:00* Test Item Value Reference Range Interpretation Comments Thrombin Time (test code = Thrombin Time) 20.7 s 15.0-21.2 [facility] HospitalMlglelrQGZRQKVKNJ9272-99-87 08:35:00* Test Item Value Reference Range Interpretation Comments PTT (test code = PTT) 33.6 s 22.9-35.8 [facility] HospitalAkvveisHANSNADWKF3670-44-48 08:35:37917Tghgvnma HermannPARATHYROID YGPEQPW3286-95-94 08:35:001.25[facility] HermannPARATHYROID PLTCATU7117-19-82 08:35:001.22[facility] HermannCHEM SILSS1574-55-47 09:24:000.2[facility] HermannCHEM HPLBH3798-74-21 09:24:00<10[facility] HermannCHEM BXTUT4170-07-86 09:24:14245 [facility] HermannCHEM RYWDD2628-64-93 09:24:001.1[facility] 2017-02-27 09:24:00Normal (02/27/17 3:24 AM)[facility] HospitalOklrquiVAKMGLFJLS0900-45-06 09:24:00* Test Item Value Reference Range Interpretation Comments Thrombin Time (test code = Thrombin Time) 17.1 s 15.0-21.2 [facility] HospitalOiffnoxVTYKLVRZOW7616-92-09 09:24:00* Test Item Value Reference Range Interpretation Comments PTT (test code = PTT) 30.8 s 22.9-35.8 [facility] DvuypltUSCSCMOKTR0536-95-89 09:24:74049Qljxrawf HermannHEMATOLOGY 2017-02-27 09:24:002.28[facility] ZuhgoqkEJAIGHAYRA9916-40-14 09:24:00* Test Item Value Reference Range Interpretation Comments INR (test code = INR) 1.36 1 0.85-1.17 [facility] ExiebntFMOIKTQIGC1293-08-17 09:24:00* Test Item Value Reference Range Interpretation Comments PT (test code = PT) 16.8 s 12.0-14.7 [facility] HermannPARATHYROID CMXUKVC8904-75-40 09:24:001.21[facility] PARATHYROID WEIOBJZ4092-97-19 09:24:001.23[facility] HermannCHEM ERIBB1485-80-96 08:26:000.2[facility] HermannCHEM QGFJD2620-99-72 08:26:00<10[facility] HermannCHEM KBWOG9861-10-47 08:26:61151Zvzyarza HermannCHEM TWRGA9235-06-68 08:26:001.0 [facility] ItrkiuyKLGHCKULMX1894-96-42 08:26:002.0[facility] HermannHEMATOLOGY 2017-02-26 08:26:000.0[facility] PwjteinVOTAPFJONH5021-08-91 08:26:001.29[facility] KreurocPONGEOIQKL2390-85-46 08:26:00* Test Item Value Reference Range Interpretation Comments Thrombin Time (test code = Thrombin Time) 17.4 s 15.0-21.2 [facility] MtrtscbLYNGGHKBJV5416-13-41 08:26:37041Ivacyiqr [facility] [employer] [facility]annBLOOD BANK HQNBDOE6862-02-93 08:53:00Negative (02/25/17 2:53 AM)[facility] CompanyannCHEM PANEL 2017-02-25 08:53:000.6[facility]annBLOOD BANK LDLYLYI9316-24-24 06:20:54 Product available (02/25/17 12:20 AM)[facility]annBLOOD BANK ZJIKNZU6326-21-82 06:20:54Product available (02/25/17 12:20 AM)[facility] [employer]annF2G BANK RESULTS 2017-02-25 06:20:54Modification Required (02/25/17 12:20 AM)[facility]UR[facility] AND FRTPW9985-04-20 23:16:00Negative (02/24/17 5:16 PM)[facility]UR[facility] WTRBM1778-27-32 23:16:002[facility]annUR[facility] BGZDA9188-18-63 23:16:003 [facility] WUJRF5831-79-38 23:16:00Negative (02/24/17 5:16 PM) [facility] LWXPJ8109-61-57 23:16:00Negative *NA*(02/24/17 5:16 PM) [facility] HXSSQ1938-97-54 23:16:00Negative (02/24/17 5:16 PM) [facility] CREDI6126-68-14 23:16:00Clear (02/24/17 5:16 PM) [facility] HZPGI3037-36-19 23:16:00* Test Item Value Reference Range Interpretation Comments UA Spec Grav (test code = UA Spec Grav) 1.017 1 [facility] VCWFM8544-67-46 23:16:00Yellow *NA*(02/24/17 5:16 PM) [facility] RGKAC7317-93-68 23:16:00* Test Item Value Reference Range Interpretation Comments UA pH (test code = UA pH) 8.5 1 5.0-8.0 [facility] [employer]annBLOOD BANK EXJWAKB1032-96-16 21:46:23Product available (02/24/17 3:46 PM)[facility]annCHEM HIFYD2581-01-49 10:31:000.7[facility] MOLECULAR ODXKWUWBAM3270-57-63 03:22:00Negative (02/23/17 9:22 PM)[facility] YFDEJBQTMQ9833-55-36 03:22:00Negative (02/23/17 9:22 PM)[facility] TZVWSMALUF5893-51-93 03:22:00Negative (02/23/17 9:22 PM)[facility]annMOLE[facility]ULAR BAPQYAPSBT7929-26-35 03:22:00[employer] 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 Swab (02/23/17 9:22 PM) [facility]LEC[facility] DSIQZVBRSK8982-00-70 03:22:00Negative (02/23/17 9:22 PM)[facility]LE[facility] BSECIHCBGH5908-40-38 03:22:00[employer] 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 Swab (02/23/17 9:22 PM)[facility] NFIJTGSYOA5676-47-60 03:22:00Negative (02/23/17 9:22 PM)[facility]ann[facility]LE[facility] DHFOMQBXOD1414-42-28 03:22:00Negative (02/23/17 9:22 PM)[facility]ann[facility]LE[facility] XIDZTNZMCG9545-46-42 03:22:00Flocked 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 Swab (02/23/17 9:22 PM)[facility]annMOLECULAR BORLCUHERP2381-01-66 03:22:00 Negative (02/23/17 9:22 PM)[facility]annBL[facility] B[facility] PUYRHCQ5904-93-35 01:32:32 Product available (02/23/17 7:32 PM)[facility]annBL[facility] AGEFSZH5180-08-90 01:32:32Product available (02/23/17 7:32 PM)[facility] RESULTS 2017-02-24 01:32:32Product available (02/23/17 7:32 PM)[facility] WFFDMOW5930-53-90 01:32:32Product available (02/23/17 7:32 PM)[facility] ELAQEEX9849-67-25 01:32:32Product available (02/23/17 7:32 PM)[facility] YspnzepEPTAOCLIHU6199-42-62 21:15:000.0[facility] VxjwsosAGTBVSIFUD1866-80-98 21:15:00See Note (02/23/17 3:15 PM)[facility] SvqkvkdHJRGUZMHRN2664-84-85 21:15:00 * Test Item Value Reference Range Interpretation Comments Coag Index Hep (test code = Coag Index Hep) 0.9 1 <=3.0 [facility] OuodrsjSCKNKGTVRP0944-24-64 21:15:00* Test Item Value Reference Range Interpretation Comments R-Time Hep (test code = R-Time Hep) 5.7 min 5.0-10.0 [facility] BvecvlvXGZXUNAKEJ5955-72-56 21:15:008.9[facility]annHEMATOLOGY 2017-02-23 21:15:00* Test Item Value Reference Range Interpretation Comments Max Amp Hep (test code = Max Amp Hep) 64.1 mm 50.0-70.0 [facility] YqlqirrQEQJERGPRE2535-15-05 21:15:00* Test Item Value Reference Range Interpretation Comments Angle Hep (test code = Angle Hep) 67.5 degrees 53.0-72.0 [facility] NpzmifqHWVWGFRMXP3895-00-06 21:15:00* Test Item Value Reference Range Interpretation Comments K-Time Hep (test code = K-Time Hep) 1.6 min 1.0-3.0 [facility]QtbfdpxQSLRMODACS5953-71-96 09:50:001+ *ABN*(02/23/17 3:50 AM)[facility] JrfzmvmGXVRLBZLQN7433-81-89 09:50:39714Ildeskzu HermannBACTERIAL - SEROLOGY 2017-02-23 02:26:00Negative (02/22/17 8:26 PM)[facility] 2017-02-23 02:17:00Negative (02/22/17 8:17 PM)[facility] 2017-02-22 11:21:002+ *ABN*(02/22/17 5:21 AM)[facility]annCARDIAC ENZYMES 2017-02-20 12:32:89971Cpztphll BtvzhflGNMWMSCQZX0694-51-87 12:32:000.0[facility] AmflqseMUEJAXLVMW8408-47-55 12:32:000.0[facility] SipbrgcPNKQIYAEHR2857-06-78 12:32:00* Test Item Value Reference Range Interpretation Comments Tot Cell Ct (test code = Tot Cell Ct) 100 1 [facility] RkoauqsJEJZJUTIUG0112-46-99 20:36:00* Test Item Value Reference Range Interpretation Comments PTT (test code = PTT) 55.7 s 22.9-35.8 [facility] LxoukhuHIKLCBVFQH0983-16-47 14:59:00* Test Item Value Reference Range Interpretation Comments PTT (test code = PTT) 61.5 s 22.9-35.8 [facility] VgkkhcgRJGCDZXIRL9629-79-17 14:59:00* Test Item Value Reference Range Interpretation Comments INR (test code = INR) 1.27 1 0.85-1.17 [facility] YvsdykxVSWRYZTZLA6578-42-25 14:59:00* Test Item Value Reference Range Interpretation Comments PT (test code = PT) 16.0 s 12.0-14.7 [facility] XopviizRZPNAPSBCFDP8104-59-65 14:55:009.5[facility]annELECTROLYTES 2017-02-19 14:55:0032[facility] JhoajksZKJAYGBCBSZS4003-33-44 14:55:0093[facility] GsmceuuDGUZNNKITZKN0033-40-98 14:55:008.8[facility] MbktnapWZUAHEVUZZCU1773-60-00 14:55:0078[facility] ZaysgcbUXQQYMSMIRTU4025-67-52 14:55:003.5[facility] ENIWJYPMOJFO8709-64-17 14:55:17405Zseediqr FgoshutPXVHUBRHGWOV3503-64-90 14:55:001.02[facility] PuvwhhoRIWPOWEVINRP8056-57-61 14:55:0022[facility] SZPWIVRSUOQG7462-87-30 14:55:97488Taesdjot NuytrxxSIEUVDVAUS8527-66-02 14:55:00 9.4[facility] PhxujclXBVRNOVRZH9107-33-24 14:55:004.16[facility]annHEMATOLOGY 2017-02-19 14:55:007.6[facility] OgnvqurBRHURMYXLA1390-21-53 14:55:42269Lpqjtoxa YwrdrcrEMZZQNDKZG5873-30-33 14:55:0013.0[facility] FvxezfiDHEGSPEORT6646-11-78 14:55:00* Test Item Value Reference Range Interpretation Comments MCH (test code = MCH) 36.6 pg 27.0-31.0 [facility] CvacvjnCAZNYPWPFD0380-96-47 14:55:0035.0[facility]annHEMATOLOGY 2017-02-19 14:55:35073.5[facility] KnfdlkvHNVFNEHMQH0432-85-38 14:55:0043.5 [facility] EnejkuqKFJLDIJFEX7340-30-58 14:55:0015.2[facility]annCHEM PANEL 2017-02-19 07:08:001.5[facility] OrxgxqnWNJTPFBJUQ3579-02-37 07:08:00* Test Item Value Reference Range Interpretation Comments PT (test code = PT) 15.4 s 12.0-14.7 [facility] PmydbvyYMJAVXCYEW8313-43-57 07:08:00* Test Item Value Reference Range Interpretation Comments INR (test code = INR) 1.21 1 0.85-1.17 [facility] YziycoqPDNAUGOUKT2327-01-09 07:08:00* Test Item Value Reference Range Interpretation Comments PTT (test code = PTT) 46.1 s 22.9-35.8 [facility] HermannCARDIAC ORWMIXD9123-64-95 13:25:78196Hxgsaltx HermannCHEM PANEL 2017-02-18 13:25:0076[facility]ann[facility] PSPXF8765-43-15 13:25:001.2[facility] HermannCHEM ULORS3352-22-39 13:25:006.7[facility] HermannCHEM SOEJM9507-56-57 13:25:002.9[facility] HermannCHEM BRVLY7891-06-92 13:25:003.7[facility] HermannCHEM VEFYL6832-71-39 13:25:0094[facility] HermannCHEM GDAMX5344-05-46 13:25:009.4 [facility]annCHEM TSOCR5546-34-06 13:25:26763Ddymcxnl HermannCHEM PANEL 2017-02-18 13:25:0030[facility] HermannCHEM VVSDE9394-56-82 13:25:001.04[facility] HermannCHEM FUAOP9587-68-95 13:25:02587Sbcvdazx HermannCHEM MLYWX6929-38-94 13:25:0026[facility] HermannCHEM DNIDR3832-62-07 13:25:0044[facility] HermannCHEM JTOLF7308-65-11 13:25:0066[facility] HermannCHEM BQZXY8362-70-86 13:25:0053 [facility]annCHEM NVXZW2134-29-24 13:25:00* Test Item Value Reference Range Interpretation Comments B/C Ratio (test code = B/C Ratio) 25 1 6-25 [facility] HermannCHEM ZILDP2705-05-29 13:25:003.8[facility] HermannCHEM PANEL 2017-02-18 13:25:0012.7[facility] HermannCHEM IGMDF7562-75-69 13:25:00* Test Item Value Reference Range Interpretation Comments A/G Ratio (test code = A/G Ratio) 0.8 1 0.7-1.6 [facility] QgmpgsjIPKEQGSJXR0736-83-03 13:25:56884Tlpjuehj HermannHEMATOLOGY 2017-02-18 13:25:009.2[facility] TcengfkUBGOJXHNGS9206-22-73 13:25:0016.3[facility] WfbqmepLLZMBJZWEX4337-92-76 13:25:0034.8[facility] PmabbhuTMIEMAKGUE8296-24-91 13:25:0013.2[facility] VotfzivWYQEWVUIGI4921-24-38 13:25:31662.9[facility] CPEGOOSOUP5637-46-79 13:25:00* Test Item Value Reference Range Interpretation Comments MCH (test code = MCH) 36.9 pg 27.0-31.0 [facility] KprcbmpTWWVSVUTBJ4868-61-22 13:25:0046.9[facility] HermannHEMATOLOGY 2017-02-18 13:25:004.43[facility] YyqbxdvBUBFVQKDXZ5562-98-30 13:25:009.6[facility] CaezphbQRDLSAFTRR1792-29-64 13:25:003.4[facility] YvdxwddSJUDPLMZUA8369-44-85 13:25:001.6[facility] OxwqmmhNVLVYLMPHK8109-60-06 13:25:000.1[facility] NTCVGOBDZU8380-20-64 13:25:000.2[facility] NpcrhauTBKQQFXDPF0999-31-77 13:25:00 45.0[facility] VmymzohNLJJPISIWZ7049-29-88 13:25:004.3[facility] HermannHEMATOLOGY 2017-02-18 13:25:001+ *ABN*(02/18/17 7:25 AM)[facility] WmiwmxkPNDBSHXESI4323-11-47 13:25:0017.0[facility] JqeuxlcYWPPJGQAAN0418-66-99 13:25:000.7[facility] KYXQSQGULI3472-27-05 13:25:0035.1[facility] DbxwditNCIJBYGUSW7359-84-46 13:25:00 2.2[facility] UglizgvVBFPOWBSPC2664-71-54 11:44:009.2[facility] HermannHEMATOLOGY 2017-02-17 11:44:0013.5[facility] ByrdraeZCWRKUTZSK3058-65-06 11:44:65012Japessbl BlppawqIVMBTZHRXC9113-71-69 11:44:00* Test Item Value Reference Range Interpretation Comments MCH (test code = MCH) 36.3 pg 27.0-31.0 [facility] LthecjlYMIULZBLDK7583-24-51 11:44:0034.2[facility] HermannHEMATOLOGY 2017-02-17 11:44:008.0[facility] SorreaxSLSPBIDHUK8277-47-42 11:44:0016.4[facility] RiscqqoGPNNBYYUVE4010-25-81 11:44:0047.9[facility] BwhmecgQQJMZDHECW4420-74-80 11:44:32958.3[facility] GevcatbJYHICPZDMY4289-31-20 11:44:004.50[facility] LPCOZRKVZT9823-78-10 11:44:0030.1[facility] PxfuprrSKTEREFEKO0524-78-51 11:44:00 53.0[facility] DusnkluAODNKOOIOY3382-08-04 11:44:00Normal (02/17/17 5:44 AM) [facility] OmyazovQZHIYZPIVA1563-24-92 11:44:00Normal (02/17/17 5:44 AM)[facility] XlidopsCCYFSMZTOR8004-13-76 11:44:000.1[facility] BpnavpoNSXALYWQGN8587-28-93 11:44:001.1[facility] GkozwclESLBNUIJMW1332-56-79 11:44:002.4[facility] ECHWNKMRSU1151-70-33 11:44:000.2[facility] ZngeobwPYBLYTYEWT5123-89-60 11:44:004.2 [facility] DqgvacgGSTHXURFPD0473-45-00 11:44:001.0[facility] HermannHEMATOLOGY 2017-02-17 11:44:002.1[facility] OljhjfdCZWLEHFTSL3607-45-82 11:44:0013.8[facility] UlnbtmqMBVLHJDDKD9485-84-06 01:42:0012.5[facility] CgpriugCUGADLKGUL9938-71-43 01:42:0018.7[facility] GuazfvhUACVEIIXUB2614-20-16 01:42:0066.7[facility] FNVBSUWUUL5186-87-46 01:42:005.2[facility] VrzfcrpPKBKEKZQSK6114-28-45 01:42:001.5 [facility] LitgjnlCNULADGWLR0626-74-66 01:42:001.4[facility] HermannHEMATOLOGY 2017-02-17 01:42:000.7[facility] NbuuurgXPPLSDMMDF0377-54-69 01:42:000.1[facility] SxgixmeMHQXOMSOXV7449-66-23 01:42:000.1[facility] HroepblHYQOVJVZAT0816-84-66 01:42:001.0[facility] SmfrknfCVCGCHWJXB0657-68-22 01:42:00* Test Item Value Reference Range Interpretation Comments PT (test code = PT) 14.1 s 12.0-14.7 [facility] LtssiotPTVCPMBDZT5137-88-78 01:42:00* Test Item Value Reference Range Interpretation Comments INR (test code = INR) 1.09 1 0.85-1.17 [facility] HermannCARDIAC GOANZKG3871-10-24 00:56:16515Hbfzwffm HermannCHEM PANEL 2017-02-16 00:56:0066[facility] HermannCHEM QWAPC7503-87-94 00:56:004.3[facility] HermannCHEM MGLIS5527-47-60 00:56:09020Gkiyjzpk HermannCHEM ESEYF6223-91-83 00:56:0098[facility] HermannCHEM RPSHP4429-18-14 00:56:54055Wcszektu HermannCHEM DUHHW0904-17-42 00:56:0024[facility] HermannCHEM YGBUK5902-39-31 00:56:001.17 [facility]annCHEM ZQXOO4866-68-45 00:56:009.4[facility] HermannCHEM PANEL 2017-02-16 00:56:0025[facility] HermannCHEM UKVRR8341-75-24 00:56:0014.3[facility] HermannURINE AND XTGEG0620-11-93 17:19:52Negative (02/15/17 11:19 AM)[facility]annURINE AND DLKMA7390-01-65 17:19:52<1[facility]annUR[facility] AND STOOL 2017-02-15 17:19:522[facility]ann[facility] AND FQUOJ8279-40-51 17:19:52Negative (02/15/17 11:19 AM)[facility] AND KATRT6089-29-61 17:19:52Negative *NA*(02/15/17 11:19 AM)[facility] AND BYVNN6868-83-94 17:19:52Negative (02/15/17 11:19 AM)[facility]ann[facility] AND XPDRO1917-47-59 17:19:52* Test Item Value Reference Range Interpretation Comments UA Spec Grav (test code = UA Spec Grav) 1.027 1 [facility]annURINE AND HAAYX1436-01-26 17:19:52* Test Item Value Reference Range Interpretation Comments UA pH (test code = UA pH) 5.5 1 5.0-8.0 [facility]annURINE AND RZXFS5321-00-80 17:19:52Yellow *NA*(02/15/17 11:19 AM) [facility]annUR[facility] AND PDJTQ9141-65-76 17:19:52Clear (02/15/17 11:19 AM) [facility] HermannCARDIAC ZTGTLTS8617-78-31 16:17:000.02[facility] HermannCARDIAC NNLPTSI9794-14-77 16:17:003.7[facility] HermannCARDIAC PMMDBAF2074-21-60 16:17:00 104[facility] HermannCARDIAC HBUUJQS3303-52-85 16:17:00* Test Item Value Reference Range Interpretation Comments CK MB Index (test code = CK MB Index) 3.6 1 <=2.5 [facility] HermannCHEM UTJHY9323-77-80 16:17:001.9Memoriil HermannCHEM PANEL 2017-02-15 16:17:00* Test Item Value Reference Range Interpretation Comments A/G Ratio (test code = A/G Ratio) 0.8 1 0.7-1.6 [facility]annUNC [facility]IT[facility]ILLSB[facility] CAMPUSSASWG4444-96-78 16:17:007.6[facility] HermannCHEM PANEL 2017-02-15 16:17:003.4[facility] HermannCHEM WRULA7974-32-58 16:17:0071[facility]oriil HermannCHEM COSDR0498-45-47 16:17:001.4[facility]il HermannCHEM BZQKC4363-42-57 16:17:00* Test Item Value Reference Range Interpretation Comments B/C Ratio (test code = B/C Ratio) 21 1 6-25 [facility]annUNC HOSPITALS HILLSBOROUGH CAMPUSNXSFW1762-09-74 16:17:004.2[facility]annUNC [facility] 2017-02-15 16:17:0058[facility]iVictor [facility] HospitalannCHEM RRXGC2634-48-57 16:17:0037[facility] A[facility]EN W/O ERYK3252-99-35 16:29:00 FAX: Mindi Arroyo MD [phone] [place]: [facility]: [facility] FAX: Jesenia Brandon MD [phone] Patient Name: ANKUR DEGROOT Unit No: [id number] EXAMS: CPT CODE: [id number] MRI ABDOMEN W/O CONT 44238 MRI/MRCP abdomen 04/30/2011. INDICATION: right upper quadrant pain. MRI abdomen performed with MRCP protocol on high field, 1.5 Mile magnet. Do not see any signal void filling defect within the gallbladder or common bile duct to suggest cholelithia sis or choledocholithiasis. There is no biliary dilatation. Fatty liver, normal size. Do not see evidence of pancreatic or adrenal mas s . The aorta and IVC appear are within normal limits. Kidneys are normal size , with no hydronephrosis. 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 There is a rounded soft tissue mass in the left u pper quadrant contiguous with the superior pole the left kidney. It measur es approximately 45 x 46 mm in size. IMPRESSION: 1. Ther e is a rounded soft tissue mass in the upper outer quadrant the left upp er quadrant of the abdomen. This probably represents either accessory sp lenic tissue, or a hyperdense renal cyst. It is stable in size from at l east July 2009, and its stability would suggest a benign etiology. 2. Unremarkable biliary system. No evidence of cholelithiasis, or cho ledocholithiasis. at 1630 Reported and signed by: Jose Antonio Burgos D.O. CC: Darin Arroyo MD; Jesenia Durham MD Dictated Date/Time: 04/29 (8050)Technologist: Richardson Hernández Transcribed Date/Time: 04/30/2011 (5660) By: Judd Orig Print D/ T: S: 04/30/2011 (2306) KAELYN Allen NAME: ANKUR DEGROOT [facility] PHYS: Mindi Foley MD [address] [place] [address] BLVD : 1955 AGE: 55 SEX: NONA [place] [address] ACCT NO: [id number] LOC: UNK PHONE #: [phone] EXAM DATE: 2011 STATUS: UNK FAX #: [phone] RAD NO: DC D t: PAGE 1 Signed Report - HEPA IMAG INCL GB W SVJ0947-17-81 11:48:00 Patient Name: ANKUR DEGROOT Unit No: [id number] EXAMS: CPT CODE: [id number] HEPA IMAG INCL GB W PHA 51288 Hepatobiliary scan with gallbladder ejection fraction 04/30/2011. INDICATION: abdomina l pain. Hepatobiliary imaging was performed after administration o f 8.8 mCi technetium 99m Choletec. Normal activity is presen t within the liver, gallbladder, common bile duct and small bowel. The gallbladder ejection fraction after administration of 3.3 mcg K inevac was 85%. IMPRESSION: Normal study. E lectronically Signed by Alberto Burgos on at 1148 Reported and signed by: Zak Burgos D.O. Nuclear Medicine Cardio logy exams performed on dual head cameras with appropriate software for proc essing and reporting. CC: Jesenia Allen NAME: ANKUR DEGROOT [facility] PHYS: Jesenia Hollins MD [address] [place] [address] BL : 1955 AGE: 55 SEX: Bertrand [place], [place] [id number] LOC: [place] PHONE #: [phone] EXAM DATE: 04/30/2011 STAT US: [place] DIGITALE FAX #: [phone] RAD NO: DC Dt: PAGE 1 Signed Report ---- Patient Name: ANKUR DEGROOT Unit No: [id number] XAMS: CPT CODE: [id number] HE PA IMAG INCL GB W PHA 38791 <Continued> Technologist: Eliseo Hanley bed Date/Time: 04/30/2011 (5512) - Judd Orig Print D/T: S: 04/30/2011 (3698) KAELYN Allen NAME: ANKUR DEGROOT [facility] PHYS: Jesenia Hollins MD [address] [place] [address] : 1955 AGE: 55 SEX: NONA [place] [address] LOC: UNK PHONE #: [phone] EXAM DATE: 04/30/2011 STATUS: UNK FAX #: [phone] RAD NO: DC Dt: PAGE 2 Signed Report - US ABDOMEN WTFCCSPR5668-38-18 13:49:00 Patient Name: ANKUR DEGROOT Unit No: [id number] EXAMS: CPT CODE: [id number] US ABDOMEN COMPLETE 61660 Abdominal ultrasound complete HISTORY: Cholecystitis versus pancreatitis. FINDINGS: The liver is normal in size, measuring 15.8 cm in length. There is normal hepatic echotexture without mass lesion or intrahepatic biliary ductal dilatation demonstrated. The gallbladder is sonolucent, with no gallbladder wall thickening, pericholecystic fluid or stones. The common duct measures 5 mm. The spleen, visualized aorta and IVC appear normal. The pancreas is poorly evaluated, however, there does not appear to be edema within the pancreatic bed. Both kidneys are normal in size and echotexture. The right kidney measures 10.6 x 4.7 x 4.6 cm and the left kidney measures 11.8 x 5.8 x 4.5 cm. A single 2 mm hyperechoic shadowing focus in the lower pole calyx of the right kidney suggests nonobstructing kidney stone. No h ydronephrosis is present. IMPRESSION: 1. No evidence of acute cholecystitis. The pancreas is poorly evaluat ed, however, there does not appear to be fluid within the pancreatic bed . 2. 2 mm nonobstructing left lower pole calculus. at 1350 Reported and signed by: Nasim Salcedo M.D. CC: Jesenia Durham MD Technologist: Cassidy Hill Trnscrbd D/ (5380) [email or web address] Probe: Orig Print D/T: S: 04/29/2011 (9354) Probe: KAELYN Allen NAME: ANKUR DEGROOT [facility] PHYS: Jesenia Hollins MD [address] [place] [address] : 1955 AGE: 55 SEX: NONA [place] [address] LOC: UNK P MICAH #: [phone] EXAM DATE: 04/29/2011 STATUS: UNK FAX #: [phone] RAD NO: Page 1 Sig camila Report - XR CHEST 1 [id number] 08:46:00 FAX: Jesenia Brandon MD [phone] [place]: St: UNK Patient Na me: ANKUR DEGROOT Unit No: [id number] EXAMS: CPT CODE: [id number] XR CHEST 1 V 95967 HISTORY: Acute cholecystitis COMPARISON: 03/24/10 FINDINGS: The lungs are clear and normally expanded. The heart and pulmonary vascula ture is normal. Osseous structures are unremarkable. IMPRESSION: Normal chest x-ray at 0846 Reported and signed by: Nasim Salcedo M.D. CC: Jesenia Durham MD Dictated Date/Time: 04/29/2011 (0846)T echnologist: Mehrdad Camejo Transcribed Date/Time: 04/29/2011 (0846) By: [email or web address] Orig Print D/T: S: 012 (0850) [facility] [place] NAME: ANKUR DEGROOT [facility] PHYS: Jesenia Hollins MD [address] [place] [address] : 1955 AG E: 55 SEX: NONA [place] [id number] LOC : K PHONE #: [phone] EXAM DATE: 04/29/2011 STATUS: [place] FAX #: [phone] RAD NO: DC Dt: PAGE 1 Signed Report - CT ABD PELVIS W/LKTQ7615-61-19 08:25:00 Patient Name: ANKUR DEGROOT Unit No: [id number] EXAMS: CPT CODE: [id number] CT ABD PELVIS W/CONT 38106 CT abdomen and pelvis with contrast: HISTORY: Pancreatitis, followup COMMENT: Multidetector slices through the abdomen and pelvis were obtained after use of oral and intravenous contrast material. Abdomen: The lung bases are clear. Heart size is normal. There is mild diffuse decreased density of the liver consistent with diffuse fatty infiltration. The spleen has probably been previously removed. There is a 4.4 cm rounded solid enhancing density in the splenic fossa consistent to with a regenerated splenule. Differential diagnosis would include an exophytic solid mass arising from the left kidney and if differentiation is desired, radionuclide technetium sulfur colloid liver spleen scan could be performed. A second 1 cm splenule is present anterior to the larger nodule.. The pancreas is normal in size with no mass or pseudocyst. There has been resolution of the peripancreatic inflammatory changes since 03/09/11.. Bilateral renal function is present with no renal mass or obstruction. No obvious renal calculi are identified. The aorta and inferior vena cava appear normal. The visualized small and large bowel is unremarkable. Retained fecal material is present in the large bowel. No inflammatory changes are identified. No free air or free fluid is present. Pelvis: Bladder contour is normal. No pelvic mass or adenopathy is identified. The prostate is m ildly enlarged containing central calcifications. The visualized s keletal structures appear intact. IMPRESSION: Resolution of priscilla pancreatic inflammatory changes since 03/09/11 consistent with resolving pancreatitis. There is a 4.4 cm rounded solid enhancing mass just latera l to the left kidney in the splenic fossa with no identifiable spleen pr esent. 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 Te chnetium sulfur colloid liver spleen scan is recommended.. Note is made that these findings are stable from old study of 07/11/09. POS: Tiffany [facility] [place] NAME: MEE DEGROOT [facility] DEPARTMENT PHYS: Liset May MD [address] [place] [address] BLVD : 1955 AGE: 55 SEX: Bertrand [place] [address] LOC: UNK PHONE #: [phone] EXAM DATE: 03/16/2011 STATUS: UNK FAX #: [phone] RAD #: D/C DT PAGE 1 Signed Report (CONTINUED) Patient Name: ANKUR DEGROOT Unit No: [id number] EXAMS: CPT CODE: [id number] CT ABD PELVIS W/CONT 71096 <Continued> at 0832 Reported and signed by: Chace Lowry M.D. CC: Liset Collins MD Dictated Date/Time: 03/16/2011 (824) Technologist: Jose Antonio Griffiths; ELDA Styles CTDI: DLP: Trnscrpt: 03/16/2011 (0832) Charlene KAELYN Allen NAME: ANKUR DEGROOT [facility] PHYS: Liset May MD [address] [place], [place] [address]VD : 1955 AGE: 55 SEX: Bertrand [place]EN [place] [address] LOC: UNK PHONE #: EXAM DATE: 03/16/2011 STATUS: UNK FAX #: RAD #: D/C DT PAGE 2 Signed Report Patient Name: Brandee DEGROOT Unit No: [id number] EXAMS: CPT CODE: [id number] CT ABD PELVIS W/CONT 34039 <Continued> Orig Print D/T: S: 03/16/2011 (0835) KAELYN Allen NAME: ANKUR DEGROOT [facility] PHYS: Liset May MD [address] [place] [address] BLVD : 1955 AGE: 55 SEX: Bertrand [place] [address] LOC: UNK PHONE #: [phone] EXAM DATE: 03/16/2011 STATUS: UNK FAX #: [phone] RAD #: D/C DT PAGE 3 Signed Report - CT ABD PELVIS W WO [id number] 14:33:00 Patient Name: ANKUR DEGROOT Unit No: [id number] EXAMS: CPT CODE: [id number] CT ABD PELVIS W WO CONT [address] DIAGNOSIS: Abdominal pain. Unenhanced and enhanced helical scans through the abdomen and pelvis from the diaphragms to the pubic symphysis are performed. The liver is normal in size and free of focal abnormality. There is fatty liver. 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 There is a 1.5 cm accessory spleen noted anteriorly in the left subphrenic space. There is a 3.3 cm similar density abnormality with in the left upper quadrant posteriorly. I cannot determine if this second 3.3 cm abnormality is also an accessory spleen or could be a solid exophytic left renal mass. A radionuclide liver spleen scan using technetium sulfur colloid could be performed to help differentiate between the two. An accessory spleen of this size would be expected to take up the radionuclide and be large enough to be identifiable. Gallbladder is free of stones. No biliary dilation. Pancreas is mildly enlarged in a generalized fashion, somewhat smaller in size than noted on prior exam of 03/04/11. Edema surrounding the pancreatic head has improved. No ductal dilation or fluid collection. Each kidney has a normal size, shape and position on either side of the retroperitoneum. Small bilateral intrarenal nonobstructing stones are stable since the prior study. No mass or hydronephrosis. The adrenal glands are normal. No lymphadenopathy, ascites or fluid collection. Scans through the pelvis again reveal a 9 mm opaque mobile bladder stone. Major vascular structures are normal for age. Body wall is normal. Bowel is unremarkable. There is no appendicitis. Scans through the lower chest are unremarkable. CONCLUSION: 1. Mild interval improvement in the appearance of acute pancreatitis since prior exam of 5 days earlier. 2. See comments regarding 3.3 cm solid abnormality left upper quadrant. 3. Stable small intracalyceal renal calculi and bladder stone. 4. Fatty liver [facility] [place] NAME: ANKUR DEGROOT [facility] PHYS: Liset May MD [address] [place], [place] [address]VD : 1955 AGE: 55 SEX: NONA [place] [address] LOC: [facility] PHONE #: [phone] EXAM DATE: 03/09/2011 STATUS: UNK FAX #: [phone] RAD #: D/C DT PAGE 1 Signed Report (CONTINUED) Patient Name: ANKUR DEGROOT Unit No: [id number] EXAMS: CPT CODE: [id number] CT [place] CONT [address] <Continued> at 1437 Reported and signed by: Jose Antonio Stanton M.D. CC: Liset Collins MD Dictated Date/Time: 03/09/2011 (1433) Technologist: Jose Antonio Griffiths CTDI: DLP: Trnscrpt: 03/09/2011 (7227) Cesar KAELYN Allen NAME: ANKUR DEGROOT [facility] PHYS: Liset May MD [address] [place] [address] : 1955 AGE: 55 SEX: NONA [place] [phone] LOC: UNK PHONE #: [phone] EXAM DATE: 03/09/2011 STATUS: UNK FAX #: [phone] RAD #: D/C DT PAGE 2 Signed Report Patient Name: ANKUR DEGROOT Unit No: [id number] EXAMS: CPT CODE: [id number] CT ABD [place]ELVIS W [place] CONT [address]359 <Continued> Orig Print D/T: S: 03/09/2011 (1442) KAELYN [place] NAME: ANKUR DEGROOT MED[facility] PHYS: Liset May MD [address] [place] [address] BLVD : 1955 AGE: 55 SEX: [place] [address] LOC: UNK PHONE #: [phone] EXAM DATE: 03/09/2011 STATUS: UNK FAX #: [phone] RAD #: D/C DT PAGE 3 Signed Report - XR FOOT 3 + V [id number] 16:51:00 FAX: Liset Kaplan MD [phone] [place]: St: UNK Patient Na me: DEBBIMEE SILVANEGAR WIGGINS Unit No: [id number] EXAMS: CPT CODE: [id number] XR FOOT 3 + [place] [address] Right foot x-ray exam, 3 views, 03/06/2011. CLINICAL HISTORY: Swelling and pain involving the right foot. COMPARISON EXAM: None relevant to this exam Do not see definite findings for osteomyelitis or subcutaneous emphysema. Soft tissue swelling particular along the right fifth toe. No acute-appear ing-periosteal reaction aggressive bony destruction identified. Degenerati ve changes in the right first MTP joint without erosion. No definite skin ulceration identified. No fracture or subluxation is seen * * at 1651 Reported and si gned by: Porsha Sims M.D. CC: Liset majano MD Dictated Date/Time: 03/06/2011 ( 1650)Technologist: Arielle Russell; AchaLa Transc ribed Date/Time: 03/06/2011 (1650) By: [email or web address] Orig Print D/T: S: 0 03/06/2011 (1655) KAELYN [place] NAME: ANKUR DEGROOT [facility] PHYS: Liset May MD [address] [place] [address] BLVD : [birth year] AGE: 55 SEX: Bertrand [place] [id number] LOC: UNK PHONE #: [phone] EXAM DATE: 03/06/2011 ST ATUS: UNK FAX #: [phone] RAD NO: DC Dt: PAGE 1 Signed Report - CT ABD PELVIS W WO [id number] 13:23:00 Patient Name: ANKUR DEGROOT Unit No: [id number] EXAMS: CPT CODE: [id number] CT ABD PELVIS W WO CONT 11083 PRE- AND POST-IV CONTRAST CT ABDOMEN AND PELVIS 03/04/2011. INDICATION: abdominal pain, pancreatitis. Oral contrast was administered. Pre- and post-IV contrast axial CT images obtained from lung bases to pubic symphysis, reconstructed at 2.[address] ABDOMEN. There is minimal atelectasis or scarring at lung bases. No pleural effusion. Diffuse fatty infiltration of the liver, upper limits normal size. Marked distention of gallbladder. No gallstones or ductal dilatation is identified. 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 There is a 4 cm exophytic cyst, upper pole left kidney. Tiny nonobstructing calcifications in upper and lower poles of both kidneys. The pancreas appears somewhat ed ematous, no surrounding inflammation and edema. There is reactive edema in volving the descending duodenum with narrowing of the lumen. Inflammatory change extends into the anterior pararenal space bilaterally, and right pa racolic gutter. There is no evidence of pancreatic abscess or pseudocyst. Small bowel loops, appendix and colon within normal limits. CT PELVIS. The is nonspecific thickening of urinary bladder wall. There is a 6 mm calcification within the bladder adjacent to the l eft UVJ. IMPRESSION: 1. Fatty liver, upper limits normal size. 2. Changes of acute pancreatitis without abscess or pseudocyst formation. Inflammation extends to the anterior pararenal space and right paracolic gutter, with edema involving the descending duodenum. 3. There is a 6 mm calcification in the urinary bladder which could repr esent a bladder stone or recently passed kidney stone. There is no hydro nephrosis bilaterally. Nonspecific thickening of urinary bladder wall, r ecommend rule out cystitis. at 1325 * * Reported and signed by: Jose Antonio Burgos D.O. CC: Liset Collins MD Dictated Date/Time: (8736) Technologist: Jose Antonio Griffiths; ELDA Styles CTDI: DLP: Trnscrpt: 03/04/2011 ([id number]) Judd [facility] Brandee perezjosh NAME: ANKUR DEGROOT [facility] ANGY GING PHYS: Liset May MD [address] [place] [address] BLVD : 1955 AGE: 55 SEX: [place]A [place] [address] LOC: UNK PHONE #: [phone] EXAM DATE: 03/04/2011 STATUS: UNK FAX #: [phone] RAD #: D/C DT PAGE 1 Signed Report Patient Name: ANKUR DEGROOT Unit No: [id number] EXAMS: CPT CODE: [id number] CT ABD PELVIS W WO CONT 84228 <Continued> Orig Print D/T: S: 03/04/2011 (1966) KAELYN Allen NAME: ANKUR DEGROOT MEDICAL IMAGING PHYS: Liset May MD [address] [place] [address] BLVD : 1955 AGE: 55 SEX: NONA MCMAHON [facility] LOC: UNK PHONE #: [phone] EXAM DATE: 03/04/2011 STATUS: [place] FAX #: [phone] RAD #: D/C DT PAGE 2 Signed Report - HEPA IMAG INCL [id number] 10:45:00 Patient Name: ANKUR DEGROOT Unit No: [id number] EXAMS: CPT CODE: [id number] [place] [address] Radionuclide hepato biliary scan. HISTORY: Pancreatitis COMMENT: Routine images of the upper abdomen were obtained through 60 minutes following in travenous injection of 8.6 mCi of 99m technetium Choletec. N o Kinevac was used. There is prompt tracer uptake by the liver wi th excretion into the biliary tree and small bowel within 30 minutes of in jection as well as filling of the gallbladder within 60 minutes of injecti on. IMPRESSION: Delayed appearance of the gallbladder which can be seen in chronic cholecystitis. No common duct or cystic duct obstruct ion is identified. POS: Tiffany El ectronically Signed by Shoshana Lowry on 0 03/04/2011 at 1046 Reported and signed by: Sebastián Lowry M.D. Nuclear Medicine Cardiol ogy exams performed on dual head cameras with appropriate software for proce ssing and reporting. CC: Liset Collins MD [facility] Tiffany NAME: Darin TAVONANKUR CARLOS MEDICAL IMAGING PHYS: Liset May MD [address] [place] [address] : 1955 A GE: 55 SEX: Bertrand [place] [address] L OC: [place] PHONE #: [phone] EXAM DATE: 03/04/2011 STATU S: [place] FAX #: [phone] RAD NO: DC Dt: PAGE 1 Signed Report --- Patient Name: ANKUR DEGROOT Unit No: [id number] EX AMS: CPT CODE: [id number] [place] [address] <Continued> Technologist: Rupali Khan Transcri bed Date/Time: 03/04/2011 (1046) - t.RC Orig Print D/T: S: 03/04/2011 (7991) KAELYN Allen NAME: ANKUR DEGROOT MEDICAL IMAGING PHYS: Liset May MD [address] [place] [address] BLVD : 1955 AGE: 55 SEX: NONA MCMAH[place] [facility] LOC: UNK PHONE #: [phone] EXAM DATE: 03/04/2011 STATUS: [place] FAX #: [phone] RAD NO: DC Dt: PAGE 2 Signed Report - NM MYOCRD SPECT R/S [id number] 00:00:00 Patient Name: ANKUR DEGROOT Unit No: [id number] EXAMS: CPT CODE: [id number] NM MYOCRD SPECT R/S [facility] [address] RESTING CARDIOLITE SCAN: 15.7 mCi of technetium 99m sestamibi was injected at rest. Perfusion images were obtained at rest. Stress test was cancelled. FINDINGS: Perfusion images obtained at rest shows physiological tra cer distribution. IMPRESSION: NORMAL RESTING PERFUSIO N SCAN. at 112 8 Reported and signed by: Marie Puentes MD Nuclear Medicine Cardiology exams performed on dual h ead cameras with appropriate software for processing and reporting. CC: Self Referred; Marie Puentes MD; Liset Collins MD [facility] NAME: ANKUR DEGROOT MEDICAL IMAGING PHYS: Liset May MD [address] [place], [place] [address]VD : 1955 AGE: 54 SEX: Bertrand [place], [place] [id number] LOC: [place] PHONE #: [phone] EXAM DATE: 03/24/2010 STATUS: [facility] FAX #: RAD NO: DC Dt: PAGE 1 Signed Report Patient Name: MIKAYLAHAVEN MOVIRGINIA WIGGINS Unit No: [id number] EXAMS: CPT CODE: [id number] NM MYOCRD SPECT R/S [facility] [address] <Continued> Technologist: Natividad Kurtz; Genny Carter Transcribed Date/Time: 03/25/2010 (8486) - Malina Orig Print D/T: S: 09/13/2010 (9592) KAELYN Allen NAME: ANKUR DEGROOT MEDICAL IMAGING PHYS: Liset May MD [address] [place] [address] BL : 1955 AGE: 54 SEX: Bertrand [place], [place] [address] LOC: UNK PHONE #: [phone] EXAM DATE: 03/24/2010 STATUS: UNK FAX #: [phone] RAD NO: DC Dt: PAGE 2 Signed Report - XR CHEST 2 [id number] 10:57:00 FAX: Self Referred [place]: St: UNK FAX: Liset Kaplan MD [phone] Patient Name: ANKUR DEGROOT Unit No: [id number] EXAMS: CPT CODE: [id number] XR CHEST 2 V 47830 PA lateral chest 03/24/2010 INDICATION: abdominal pain. The heart is borderline in size. Aorta tortuous and ectatic. Lungs clear. No effusion. Bony thorax unremarkable. IMPRESSION: No active disease. at 1057 Reported and signed by: Jose Antonio Burgos D.O. CC: Self Referred; Liset Collins MD Dictated Date/Time: 03/24/2010 (0968)Technologist: Peggy Bell; AchaLa Transcribed Date/Time: 03/24/2010 (3032) By: Judd Orig Print D/T: S: 03/24/2010 (9367) [facility] NAME: ANKUR DEGROOT MEDICAL IMAGING PHYS: Liset May MD [address] [place] [address] BLVD : 1955 AGE: 54 SEX: NONA [place] [id number] LOC: UNK PHONE #: [phone] EXAM DATE: 03/24/2010 STATUS: UNK FAX #: [phone] RAD NO: DC Dt: PAGE 1 Signed Report - CT ABD PELVIS W WO [id number] 13:52:00 Patient Name: ANKUR DEGROOT Unit No: [id number] EXAMS: CPT CODE: [id number] CT ABD PELVIS W WO CONT [address] DIAGNOSIS: Abdominal pain. Unenhanced and orally and intravenously enhanced helical scans through the abdomen and pelvis from the diaphragms to the pubic symphysis are performed. Liver is of normal size and free of focal abnormality. There is fatty liver. 5.5 cm rounded abnormality is again noted within the left upper quadrant. This was identified on prior exam of 07/24/09 and could represent either an unusually a large accessory spleen or splenic remnant. It could also repr esent a cyst arising from the upper pole of left kidney. Gal lbladder is free of stones. No biliary dilation. There is mild gen eralized enlargement of the pancreas. No pancreatic ductal dilation or foc al mass is identified. Increased attenuation in the peripancreatic fat may be related to edema or inflammation. No localized fluid collection. The f indings are consistent with acute pancreatitis. Each kidney has a normal size, shape and position on either side of the retroperitoneu m. No mass or hydronephrosis is present. 3 mm opacity in the lower pole of the right kidney and a 3 mm opacity in the lower pole of left kidney most likely represent calculi. The adrenal glands are normal. No lymph adenopathy, ascites or fluid collection. Scans through the p roma are normal. Major vascular structures are normal for age. Body wall is normal. Bowel is unremarkable. There is no appendicitis. Scans through the lower chest are unremarkable. CONCLUSION: 1. Constellation of find ings consistent with acute pancreatitis. 2. Fatty liver. 3. Smal l bilateral renal calculi. at 1355 Reported and signed by: Shoshana Kimbrough NAME: ANKUR DEGROOTE DMITRI ANGY GING PHYS: Liset May MD [address] [place] [address] : 1955 AGE: 54 SEX: Bertrand [place] [address] LOC: UNK PHONE #: [phone] EXAM DATE: 03/23/2010 STATUS: UNK FAX #: [phone] RAD #: D/C DT PAGE 1 Signed Report (CONTINUED) Patient Name: ANKUR DEGROOT Unit No: [id number] EXAMS: CPT CODE: [id number] CT ABD PELVIS W WO CONT 77520 <Continued> CC: Self Referred; Liset Collins MD Dictated Date/Time: 03/23/2010 (9862) Technologist: Balta Riley CTDI: DLP: Trnscrpt: 03/23/2010 (0799) LaneJJP FRANCINEAustin Tiffany NAME: DEBBIMEE SILVANEGAR WIGGINS MEDICAL IMAGING PHYS: Liset May MD [address] [place] [address] : 1955 AGE: 54 SEX: Bertrand [place] [address] LOC: UNK PHONE #: [phone] EXAM DATE: 03/23/2010 STATUS: UNK FAX #: [phone] RAD #: D/C DT PAGE 2 Signed Report Patient Name: ANKUR DEGROOT Unit No: [id number] EXAMS: CPT CODE: [id number] CT ABD PELVIS W WO CONT 20568 <Continued> Orig Print D/T: S: 03/23/2010 (2617) FRANCINEAustin Tiffany NAME: ANKUR DEGROOT MEDICAL IMAGING PHYS: Liset May MD [address] [place] [address] : 1955 AGE: 54 SEX: Bertrand [place] [address] LOC: UNK PHONE #: [phone] EXAM DATE: 03/23/2010 STATUS: UNK FAX #: [phone] RAD #: D/C DT PAGE 3 Signed Report - CT PELVIS W W/O [id number] 10:24:00 Patient Name: ANKUR DEGROOT Unit No: [id number] EXAMS: CPT CODE: [id number] CT ABDOMEN W W/O CONTRAST [id number] PELVIS W W/O CONT [address] abdomen and pelvis 07/24/2009. INDICATION: Abdominal pain, pancreatitis. Oral contrast was administered. Pre- and post-IV contrast axial CT images were obtained from lung bases to pubic symphysis, reconstructed at 2.5 mm slice thickness. Comparison 07/12/[address] ABDOMEN. Calcified granulomata the lower lobes. No acute infiltrates or effusion. Diffuse fatty infiltration of the liver is again noted. Gallbladder, adrenal glands, kidneys, aorta and IVC are normal. There is a 55 mm rounded soft tissue mass in the left upper quadrant. This could represent a splenic remnant, or dense cyst arising from upper pole left kidney. It is unchanged. Tiny calcifications noted in both kidneys. There is a 5 mm calcification in proximal right ureter without hydronephrosis. This is unchanged. Significant decrease in the amount of edema around the pancreatic head. No evidence of pancreatic mass, pseudocyst or abscess. No free fluid, free air or adenopathy. Small bowel loops, appendix and colon within normal limits. CT PELVIS Urinary bladder normally distended. Prostate gland is prominent with mass effect on floor bladder. No pelvic free fluid, masses or adenopathy. IMPRESSION: 1. Fatty liver. 2. Significant decrease in the amount of inflammation around pancreatic head without evidence of mass or pseudocyst. 3. There is a 5 mm calcification in the proximal right ureter without hydronephrosis. This is unchanged in position from 07/12/09. at 1027 Reported and signed by: Jose Antonio Burgos D.O. CC: Liset Collins MD Dictated Date/Time: 07/24/2009 (1024) Technologist: Amrita Guerra CTDI: DLP: Trnscrpt: 07/24/2009 (1026) t.SDR.JTM KAELYN Allen NAME: MIKAYLAANKUR ROSALIE MEDICAL IMAGING DEPARTMENT PHYS: Liset May MD [address] [place] [address] : 1955 AGE: 53 SEX: Bertrand [place] [address] LOC: UNK PHONE #: [phone] EXAM D ATE: 07/24/2009 STATUS: [place] FAX #: [phone] RAD #: D/C DT PAGE 1 Signed Report Patient Name: ANKUR DEGROOT Unit No: [id number] EXAMS: CPT CODE : [id number] CT ABDOMEN W W/O CONTRAST [id number] PELVIS W W/O CONT 13716 < Continued> Orig Print D/T: S: 07/24/2009 (1039) KAELYN Allen NAME: ANKUR DEGROOT MEDICAL IMAGING DEPARTMENT PHYS: Liset May MD [address] [place] [address] : 1955 AGE: 53 SEX: Bertrand [place] [address] LOC: UNK PHONE #: [phone] EXAM DATE: 07/24/2009 STATUS: UNK FAX #: [phone] RAD #: D/C DT PAGE 2 Signed Report - CT ABDOMEN W W/O [id number] 10:24:00 Patient Name: ANKUR DEGROOT Unit No: [id number] EXAMS: CPT CODE: [id number] CT ABDOMEN W W/O CONTRAST [id number] PELVIS W W/O CONT [address] abdomen and pelvis 07/24/2009. INDICATION: Abdominal pain, pancreatitis. Oral contrast was administered. Pre- and post-IV contrast axial CT images were obtained from lung bases to pubic symphysis, reconstructed at 2.5 mm slice thickness. Comparison 07/12/[address] ABDOMEN. Calcified granulomata the lower lobes. No acute infiltrates or effusion. Diffuse fatty infiltration of the liver is again noted. Gallbladder, adrenal glands, kidneys, aorta and IVC are normal. There is a 55 mm rounded soft tissue mass in the left upper quadrant. This could represent a splenic remnant, or dense cyst arising from upper pole left kidney. It is unchanged. Tiny calcifications noted in both kidneys. There is a 5 mm calcification in proximal right ureter without hydronephrosis. This is unchanged. Significant decrease in the amount of edema a round the pancreatic head. No evidence of pancreatic mass, pseudocyst or a bscess. No free fluid, free air or adenopathy. Small bowel loops, appendix and colon within normal limits. CT PELVIS Urinary bladder normally distended. Prostate gland is prominent with mass effect on floor bladder. No pelvic free fluid, masses or adenopathy. IMPRESSION: 1. Fatty liver. 2. Significant decre ase in the amount of inflammation around pancreatic head without evidenc e of mass or pseudocyst. 3. There is a 5 mm calcification in the proxima l right ureter without hydronephrosis. This is unchanged in position fro 07/12/09. at 1027 Reported and signed by: Jose Antonio Burgos D.O. CC: Liset Collins MD Dictated Date/Time: 07/24/2009 (1024) Technologist: Amrita Guerra CTDI: DLP: Trnscrpt: 07/24/2009 (1027) Korina KAELYN Allen NAME: ANKUR DEGROOT MEDICAL IMAGING DEPARTMENT PHYS: Liset May MD [address] [place] [address] BLVD : 1955 AGE: 53 SEX: [place]A [place] [address] LOC: UNK PHONE #: [phone] EXAM D ATE: 07/24/2009 STATUS: UNK FAX #: [phone] RAD #: D/C DT PAGE 1 Signed Report Patient Name: ANKUR DEGROOT Unit No: [id number] EXAMS: CPT CODE : [id number] CT ABDOMEN W W/O CONTRAST [id number] PELVIS W W/O CONT 39088 < Continued> Orig Print D/T: S: 07/24/2009 (1031) KAELYN Allen NAME: ANKUR DEGROOT MEDICAL IMAGING DEPARTMENT PHYS: Liset May MD [address] [place] [address] : 1955 AGE: 53 SEX: [place] [address] LOC: [place] PHONE #: [phone] EXAM DATE: 07/24/2009 STATUS: UNK FAX #: [phone] RAD #: D/C DT PAGE 2 Signed Report - XR UGI W/AIR W/SM [id number] 13:50:00 FAX: Ta Claire DO [phone] [place]: St: [facility] FAX: Liset Kaplan MD [phone] Patient Name: ANKUR DEGROOT Unit No: [id number] EXAMS: CPT CODE: [id number] XR UGI W/AIR W/SM INTEST 14279 Double-Contrast Barium Swallow CLINICAL HISTORY: Esophageal pain. Epigastric pain FINDINGS: Assessme nt of the cervical esophagus is unremarkable. Normal transit time is seen with both liquid and solid barium tablet. No strictures, ulceration or muc osal abnormality is seen. Do not see an appreciable esophagogastric reflux . No hiatal hernia is noted. Visualized portion of the stomach unremarkab le. IMPRESSION: Normal barium swallow Small bowel series CLINICAL HISTORY: The patient has been to [facility]. Concern present for parasitic infection and or focal arm. FINDINGS: Lithographic Plate Maker Apprentice film of the ab domen demonstrates bowel gas pattern to be nonobstructed and nonspecific . No free air or abnormal calcification is noted. Ente guerita contrast material is seen to flow freely to the cecum with visualiza tion of colonic enteric contrast material visualized at 3 hours. Do not see a mucosal abnormality, strictures or fistulous tracts. No constant filling defect identified or abnormal intrinsic impression. Visualized portion of colon appears normal. Do not see any definite filling defects of concern for clearly for parasitic infection. IMPRE SSION: Unremarkable small bowel series Elect ronically Signed by Porsha Sims M.D. on 07/15/2009 at 1353 Reported and signed by : Posrha Negro LEONCIO: DEBBIMEE SILVANEGAR ROSALIE MEDICAL IMAGING PHYS: Ta Matthews [address] [place] [address] BLVD : [birth year] AGE: 53 SEX: [place] [id number] 8 LOC: [place] PHONE #: [phone] EXAM DATE: 07/15/2009 STA TUS: [place] FAX #: [phone] RAD NO: DC Dt: PAGE 1 Signed Report (CONTINU ED) FAX: Ta Claire DO [phone] [place]: St: [facility] FAX: Liset Kaplan MD [phone] Patient Name: ANKUR DEGROOT Unit No: [id number] EXAMS: CPT CODE: [id number] XR UGI W/AIR W/SM INTEST 71000 <Continued> CC: Ta Fernandez DO; Liset Collins MD Dictated Date/Time: 07/15/2009 (0219)Technologist: Arielle Johnson (Brock); ... Transcribed Date/Time: 07/15/2009 (1560) By: [email or web address] Orig Print D/T: S: 07/15/2009 (8787) KAELYN Allen NAME: ANKUR DEGROOT MEDICAL IMAGING PHYS: Ta Ceja [address] [place], [place] [address]VD : 1955 AGE: 53 SEX: [place]A [place] [address] LOC: UNK PHONE #: [phone] EXAM DATE: 07/15/2009 STATUS: UNK FAX #: [phone] RAD NO: DC Dt: PAGE 2 Signed Report - MRI ABDOMEN W/O [id number] 08:07:00 FAX: Ta Claire DO [phone] [place]: St: [facility] FAX: Liset Kaplan MD [phone] Patient Name: ANKUR DEGROOT Unit No: [id number] EXAMS: CPT CODE: [id number] MRI ABDOMEN W/O CONT 93656 MRI abdomen without contrast (MRCP) HISTORY: Acute pancreatitis. COMMENT: Sagittal axial and coronal imaging through the abdomen was obtained using T1, T2 and gradient imaging techniques w ithout contrast. Three dimensional reconstruction of the biliary tree was performed and evaluated. The gallbladder is distended with no obvious filling defects to suggest cholelithiasis. The in trahepatic and extrahepatic biliary tree appears normal in caliber with no evidence fo dilatation or cholodocholithias. There is edema prese nt in the root of the mesentery and surrounding the head of the pancreas w hich appears enlarged. The findings are consistent with acute pancreatitis . This was better visualized on recent CT examination of 07/12/09. No focal mass within the pancreas is identified on this noncontrast study.. There is a 5 cm cyst arising exophytically from the upper pole of the left kidney. No obstruction of either collecting system is present. IMPRESSION: Enlarged pancreatic head with peripancreatic inflamma tory changes consistent with acute pancreatitis. No evidence of common d uct stone is identified. The pancreatic duct is not enlarged.. . POS: Tiffany at 0810 Reported and signed by: Chace Lowry M.D. CC: Ta Fernandez DO; Liset Collins MD Dictated Date/Time: 07/15/2009 (0807)Technologist: Demond Green RT Transcribed Date/Time: 07/15/2009 (08) By: Charlene [facility] P rint D/T: S: 07/15/2009 (1817) KAELYN Allen NAME: ANKUR DEGROOT MEDICAL IMAGING PHYS: HAILEE. Ta García [address] : 1955 AGE: 53 SEX: Bertrand [place], [place] [address] LOC: UNK PHONE #: [phone] EXAM DATE: 07/15/2009 STATUS: [place] FAX #: [phone] RAD NO: DC Dt: PAGE 1 Signed Report - CT PELVIS W W/O [id number] 16:18:00 Patient Name: ANKUR DEGROOT Unit No: [id number] EXAMS: CPT CODE: [id number] CT PELVIS W W/O CONT [id number] ABDOMEN W W/O CONTRAST 91323 CT EXAMINATION OF THE ABDOMEN AND PELVIS: TECHNIQUE: CT examination of both the abdomen and pelvis conducted both with and without intravenous contrast with direct axial imaging acquired both with and without intravenous contrast utilizing 5 mm slice thickness in the axial plane. The patient was given a total of 80 mL of Isovue-300 contrast. Enteric contrast was also administered. Reformat imaging was acquired both pre- and postcontrast imaging. COMPARISON EXAM: Prior CT examination of the abdomen and pelvis acquired on 07/11/2009. FINDINGS: Lung bases demonstrate granulomata in both lower lobes posteriorly with minimal stranding likely indicative of atelectatic changes. Liver is fatty in attenuation without mass. No gallstones identified. The CBD however does appear to be somewhat prominent. It measures approximately 14 mm size. Correlation with sonography may be helpful in further assessing this and assessing possible common bile duct stone with findings felt to be indicative of pancreatitis with significant phlegmonous changes diffusely involving the head and proximal body relative sparing of the tail. This is similar to the examination of 07/11/2009 with significant phlegmonous changes encasing the mesenteric vessels without occlusion. Mass effect on the duodenum with duodenal wall thickening identified likely reactive. No definite bowel obstruction is seen or evolving abscess or pseudocyst formation. No panc reatic necrosis is identified. No drainable collection is identified. Again seen is an obstructing calculus in the right proximal ureter on image #40. This measures approximately 5 x 5 mm in size with a mild to small degree of hydronephrosis identified unchanged without urinoma or retroperitoneal collection. Renal cortex and parenchyma fairly well mainta ined. Tiny nonobstructing calculi seen superiorly in the posterior calycea l system of the left kidney. Tiny calculi appear to be present within the lower pole of the right kidney unchanged. The abdominal aorta urbano ures 2.8 cm in maximum dimension without definite aneurysmal dilatation. I VC is normal in caliber. A soft tissue density possibly again geoffrey cative of a splenule is seen in the left upper quadrant. Finding appears m ore likely to streak from left kidney. Again correlation with left upper q uadrant sonogram may prove helpful for assessment and clinical history. Do not see the main body of the spleen with a soft tissue density measuring 5.2 x 4.6 cm. No adrenal mass is seen. Bowel gas pattern nonobstructed. No free air or pneumatosis is identified. The IVC is normal in caliber. Prostatic calcifications again identified. Mild mass effect on the [facility] Tiffany NAME: DEBBIRICARDOMEENEGAR WIGGINS EDICAL IMAGING PHYS: Liset May MD [address] [facility] [facility] : 1955 AGE: 53 SEX: [place] [address] LOC: UNK PHONE #: [phone] EXAM DATE: 07/12/2009 STATUS: UNK FAX #: [phone] RAD #: D/C DT PAGE 1 Signed Report (CONTINUED) Patient Name: MEE DEGROOTNEGAR ROSALIE Unit No: [id number] EXAMS: CPT CODE: [id number] CT PELVIS W W/O CONT [id number] ABDOMEN W W/O CONTRAST 70791 <Continued> bladder is seen. Again somewhat coarsened trabeculae involving the left hip and left femur of concern for possible pagetoid involvement. No aggressive bony destruction is seen. IMPRESSION: 1. Findings likely indicative of acute pancreatitis unchanged to the prior exam of the day earlier without pancreatic necrosis, drainable collection or abscess with significant phlegmonous changes centered along the head of the pancreas and with reactive duodenitis noted. 2. A 5 x 5 mm nonobstructing calculus proximal right ureter with mild to small degree of right-sided hydronephrosis unchanged from the day earlier. Additional nonobstructing bilateral nephrolithiasis noted as discussed above. 3. Soft tissue mass again possibly indicative of a splenule in the left upper quadrant. 4. 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 5. Granulomata seen posteriorly in the lower lobes without evolving effusion or pneumonia. at 2142 Reported and signed by: Porsha Sims M.D. CC: Liset Collins MD Dictated Date/Time: 07/12/2009 (0052) Technologist: Jose Antonio Myers CTDI: DLP: Trnscrpt: 07/12/2009 (1679) Milton/M[place] Allen NAME: MIKAYLAMEENEGAR WIGGINS MEDICAL IMAGING PHYS: Liset May MD [address] [place] [address] BLVD : 1955 AGE: 53 SEX: [place], [place] [address] LOC: UNK PHONE #: [phone] EXAM DATE: 07/12/2009 STATUS: UNK FAX #: [phone] RAD #: D/C DT PAGE 2 Signed Report Patient Name: ANKUR DEGROOT Unit No: [id number] EXAMS: CPT CODE: [id number] CT PELVIS W W/O CONT [id number] ABDOMEN W W/O CONTRAST 89113 <Continued> Orig Print D/T: S: 07/12/2009 (1132) KAELYN Allen NAME: MIKAYLAMEELEY ROSALIE MEDICAL IMAGING PHYS: Liset May MD [address] [place] [address] BLVD : 1955 AGE: 53 SEX: [place] [address] LOC: UNK PHONE #: [phone] EXAM DATE: 07/12/2009 STATUS: UNK FAX #: [phone] RAD #: D/C DT PAGE 3 Signed Report - CT ABDOMEN W W/O [id number] 16:18:00 Patient Name: ANKUR DEGROOT Unit No: [id number] EXAMS: CPT CODE: [id number] CT PELVIS W W/O CONT [id number] ABDOMEN W W/O CONTRAST 01518 CT EXAMINATION OF THE ABDOMEN AND PELVIS: TECHNIQUE: CT examination of both the abdomen and pelvis conducted both with and without intravenous contrast wi th direct axial imaging acquired both with and without intravenous contras t utilizing 5 mm slice thickness in the axial plane. The patient was given a total of 80 mL of Isovue-300 contrast. Enteric contrast was also admini stered. Reformat imaging was acquired both pre- and postcontrast imaging. COMPARISON EXAM: Prior CT examination of the abdomen and pelvis acquired on 07/11/2009. FINDINGS: Lung bases dem onstrate granulomata in both lower lobes posteriorly with minimal strandin g likely indicative of atelectatic changes. Liver is fatty in atte nuation without mass. No gallstones identified. The CBD however does appea r to be somewhat prominent. It measures approximately 14 mm size. Correlat ion with sonography may be helpful in further assessing this and assessing possible common bile duct stone with findings felt to be indicative of pa ncreatitis with significant phlegmonous changes diffusely involving the he ad and proximal body relative sparing of the tail. This is similar to the examination of 07/11/2009 with significant phlegmonous changes encas ing the mesenteric vessels without occlusion. Mass effect on the duodenum with duodenal wall thickening identified likely reactive. No definite alena l obstruction is seen or evolving abscess or pseudocyst formation. No panc reatic necrosis is identified. No drainable collection is identified. Again seen is an obstructing calculus in the right proximal ureter on image #40. This measures approximately 5 x 5 mm in size with a mild to small degree of hydronephrosis identified unchanged without urinoma or retroperitoneal collection. Renal cortex and parenchyma fairly well mainta ined. Tiny nonobstructing calculi seen superiorly in the posterior calycea l system of the left kidney. Tiny calculi appear to be present within the lower pole of the right kidney unchanged. The abdominal aorta urbano ures 2.8 cm in maximum dimension without definite aneurysmal dilatation. I VC is normal in caliber. A soft tissue density possibly again geoffrey cative of a splenule is seen in the left upper quadrant. Finding appears m ore likely to streak from left kidney. Again correlation with left upper q uadrant sonogram may prove helpful for assessment and clinical history. Do not see the main body of the spleen with a soft tissue density measuring 5.2 x 4.6 cm. No adrenal mass is seen. Bowel gas pattern nonobstructed. No free air or pneumatosis is identified. The IVC is normal in caliber. Prostatic calcifications again identified. Mild mass effect on the [facility] Tiffany NAME: DBEBIRICADROANKUR ED[facility] IMAGING PHYS: Liset May MD [address] [place] [address] : 1955 AGE: 53 SEX: [place] [address] LOC: [place] PHONE #: EXAM DATE: 07/12/2009 STATUS: [facility] FAX #: [phone] RAD #: D/C DT PAGE 1 Signed Report (CONTINUED) Patient Name: MIKAYLAANKUR WIGGINS Unit No: [id number] EXAMS: CPT CODE: [id number] CT PELVIS W W/O CONT [id number] ABDOMEN W W/O CONTRAST 80680 <Continued> bladder is seen. Again somewhat coarsened trabeculae involving the left hip and left femur of concern for possible pagetoid involvement. No aggressive bony destruction is seen. IMPRESSION: 1. Findings likely indicative of acute pancreatitis unchanged to the prior exam of the day earlier without pancreatic necrosis, drainable collection or abscess with significant phlegmonous changes centered along the head of the pancreas and with reactive duodenitis noted. 2. A 5 x 5 mm nonobstructing calculus proximal right ureter with mild to small degree of right-sided hydronephrosis unchanged from the day earlier. Additional nonobstructing bilateral nephrolithiasis noted as discussed above. 3. Soft tissue mass again possibly indicative of a splenule in the left upper quadrant. 4. 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 5. Granulomata seen posteriorly in the lower lobes without evolving effusion or pneumonia. at 2142 Reported and signed by: Porsha Sims M.D. CC: Liset Collins MD Dictated Date/Time: 07/12/2009 (7363) Technologist: Jose Antonio Myers CTDI: DLP: Trnscrpt: 07/12/2009 (3815) Milton/Milton Allen NAME: ANKUR DEGROOT [facility] PHYS: Liset May MD [address] [place] [address] BLVD : 1955 AGE: 53 SEX: Bertrand [place]EN [place] [address] LOC: [place] PHONE #: [phone] EXAM DATE: 07/12/2009 STATUS: [facility] FAX #: [phone] RAD #: D/C DT PAGE 2 Signed Report Patient Name: ANKUR DEGROOT Unit No: [id number] EXAMS: CPT CODE: [id number] CT PELVIS W W/O CONT [id number] ABDOMEN W W/O CONTRAST 44199 <Continued> Orig Print D/T: S: 07/12/2009 (2145) KAELYN Allen NAME: ANKUR DEGROOT [facility] PHYS: Liset May MD [address] [place] [address] BLVD : 1955 AGE: 53 SEX: NONA MCMAHON [facility] LOC: [place] PHONE #: [phone] EXAM DATE: 07/12/2009 STATUS: [facility] FAX #: [phone] RAD #: D/C DT PAGE 3 Signed Report - NM BILIARY DUCT W/WO [id number] 11:59:00 Patient Name: ANKUR DEGROOT Unit No: [id number] EXAMS: CPT CODE: [id number] [place] DU[place] W/[place] [address] Nuclear biliary sca n. DIAGNOSIS: Right upper quadrant pain. The exam is performed with 8.2 mCi of Choletec. There is prompt accumulation of the radionuclide within a normal-size liver. Photon deficient region hi gh in the right hepatic lobe is most likely an anatomic variant. There is rapid excretion into bile ducts, gallbladder and bowel. One hour following injection of the radionuclide, 3.5 mcg of cholecyst okinin was injected. The gallbladder ejection fraction is 93%. CONCLUSION: Normal exam at 1159 Reported and signed by: Jose Antonio Stanton M.D. Nuclear Medicine Cardiology exams performed on dual head ca meras with appropriate software for processing and reporting. CC: Liset Collins MD [facility] NAME: ANKUR DEGROOTE [employer] [facility] PHYS: Liset May MD [address] [place] [address] : 1955 AGE: 53 SEX: Bertrand [place], [place] [address] LOC: [place] PHONE #: EXAM DATE: 07/12/2009 STATUS: [place] FAX #: [phone] RAD NO: DC Dt: PAGE 1 Signed Report Patient Name: ANKUR DEGROOT Unit No: [id number] EXAMS: CPT CODE: [id number] [place] [address] <Continued> Technologist: Cornelio Khan Transcribed Date/Time: 07/12/2009 (0759) - Cesar Orig Print D/T: S: 07/12/2009 (0821) KAELYN Allen NAME: ANKUR DEGROOT MED[facility]AG[facility] PHYS: Liset May MD [address] [place] [address] : 1955 AGE: 53 SEX: Bertrand ALLEN, [place] [id number] LOC: UNK PHONE #: [phone] EXAM DATE: 07/12/2009 STATUS: UNK FAX #: [phone] RAD NO: DC Dt: PAGE 2 Signed Report - CT CHEST W/O [id number] 14:11:00 Patient Name: ANKUR DEGROOT Unit No: [id number] EXAMS: CPT CODE: [id number] CT CHEST W/O CONTRAST [address] DIAGNOSIS: Pulmonary fibrosis. Unenhanced high resolution scans through the chest are performed. Lung volumes are normal. The pulmonary bronchovascular structures and pulmonary interstitium are normal. There is no pulmonary fibrosis identified. Coarse bibasilar linear pulmonary densities represent scar or atelectasis. There is no pneumonia or edema. No pleural effusion, mass or calcification is identified. Mediastinum is free of lymphadenopathy or mass. Cardiac size is normal. Pericardium is unremarkable. Scans through the upper abdomen reveal a small opaque left renal calculus. CONCLUSION: 1. Negative for pulmonary fibrosis. 2. Bibasilar pulmonary scar/atelectasis. 3. Small left renal stone. at 1516 Reported and signed by: Jose Antonio Stanton M.D. CC: Liset Collins MD Dictated Date/Time: 07/11/2009 (4676) Technologist: Lo Griffiths CTDI: DLP: Trnscrpt: 07/11/2009 (1416) Harvey/[facility] Tiffany NAME: ANKUR DEGROOT MED[facility] PHYS: Liset May MD [address] [place] [address] BLVD : 1955 AGE: 53 SEX: [place]A [place] [id number] LOC: UNK PHONE #: [phone] EXAM DATE: 07/11/2009 STATUS: UNK FAX #: [phone] RAD #: D/C DT PAGE 1 Signed Report Patient Name: ANKUR DEGROOT Unit No: [id number] EXAMS: CPT CODE: [id number] CT CHEST W/O CONTRAST 26586 < Continued> Orig Print D/T: S: 07/11/2009 (1520) KAELYN Allen NAME: ANKUR DEGROOT MED[facility] PHYS: Liset May MD [address] [place] [address] BLVD : 1955 AGE: 53 SEX: NONA MCMAHON [facility] LOC: UNK PHONE #: [phone] EXAM DATE: 07/11/2009 STATUS: UNK FAX #: [phone] RAD #: D/C DT PAGE 2 Signed Report - CT ABDOMEN W/O [id number] 08:45:00 Patient Name: ANKUR DEGROOT Unit No: [id number] EXAMS: CPT CODE: [id number] CT ABDOMEN W/O CONTRAST [id number] PELVIS W/O CONTRAST 46920 CT abdomen and pelvis without contrast 07/11/2009. INDICATION: Abdominal pain. Noncontrast axial CT images obtained from lung bases to pubic symphysis at 2.[address] abdomen. Mild to moderate atelectasis at lung bases without pleural effusion. There is diffuse fatty infiltration of the liver. The gallbladder, adrenal glands and IVC are normal. Aorta is tortuous and ectatic. Punctate calcification midpole left kidney . There are several punctate calcifications in the right kidney, and there is a 9 mm calcification in proximal right ureter with mild right-sided hydronephrosis. There is a 5 cm rounded dense mass in the left upper quadrant. The spleen is not visualized. This may represent the sequela of splenectomy, or could be arising from the upper pole of left kidney. The pancreas, especially pancreatic head is enlarged and inflamed. Large a mount of inflammation in the mesentery around the pancreas especially the head extending into the anterior pararenal space. Probable reactive edema involving the wall of the duodenum. Do not see a phlegmon formation, absce ss, pseudocyst or free air. The small bowel loops and appendix are normal. Colon unremarkable. CT pelvis. Urinary blad aym normally distended. Prostate gland mildly prominent and contains calci fications. No pelvic free fluid, masses or adenopathy. Proximal left femur appear somewhat sclerotic with thickened cortex. IMPRESSI ON: 1. Acute pancreatitis, with resultant inflammatory change and edema of the duodenum. 2. Bilateral nephrocalcinosis. There is a 9 mm calcification in proximal right ureter with mild right-sided hydronephro sis. 3. Fatty liver. 4. There is a 5 cm rounded hyperdensity in the left upper quadrant. This could represent sequela of splenectomy , o r renal mass. Correlation with renal ultrasound is recommended. 5. Sclerotic appearing proximal left femur with thickened cortex may rep resent Paget's disease. Dedicated plain films of this region and/or bone scan recommended. at 0854 Reported and signed by: Jose Antonio Burgos D.O. [facility] Con oe NAME: ANKUR DEGROOT MEDICAL IMAGIN G PHYS: Liset May MD [address] [place] [address] BLVD : 1955 AGE: 53 SEX: Bertrand [place], [place] [address] LOC: UNK PHONE #: [phone] EXAM DATE: 07/11/2009 STATUS: UNK FAX #: [phone] RAD #: D/C DT PAGE 1 Signed Report (CONTINUED) Patient Name: ANKUR DEGROOT Unit No: [id number] EXAMS: CPT CODE: [id number] CT ABDOMEN W/O CONTRAST [id number] PELVIS W/O CONTRAST 70203 <Continued> CC: Liset Collins MD Dictated Date/Time: 07/11/2009 (0845) Technologist: Joyce Ampit CTDI: DLP: Trnscrpt: 07/11/2009 (0854) [email or web address] KAELYN Allen NAME: DEBBIRICARDOANKUR WIGGINS MEDICAL IMAGING PHYS: Liset May MD [address] [place] [address] : 1955 AGE: 53 SEX: NONA [place] [address] LOC: [place]K PHONE #: [phone] EXAM DATE: 07/11/2009 STATUS: UNK FAX #: [phone] RAD #: D/C DT PAGE 2 Signed Report Patient Name: ANKUR DEGROOT Unit No: [id number] EXAMS: CPT CODE: [id number] CT ABDOMEN W/O CONTRAST [id number] PELVIS W/O CONTRAST 03621 <Continued> Orig Print D/T: S: 07/11/2009 (0858) KAELYN Allen NAME: ANKUR DEGROOT MED[facility]AG[facility] PHYS: Liset May MD [address] [place] [address] : 1955 AGE: 53 SEX: Bertrand [place] [address] LOC: UNK PHONE #: [phone] EXAM DATE: 07/11/2009 STATUS: UNK FAX #: [phone] RAD #: D/C DT PAGE 3 Signed Report - CT PELVIS W/O [id number] 08:45:00 Patient Name: ANKUR DEGROOT Unit No: [id number] EXAMS: CPT CODE: [id number] CT ABDO MEN W/O CONTRAST [id number] PELVIS W/O CO NTRAST 97003 CT abdomen and pelvis withou t contrast 07/11/2009. INDICATION: Abdominal pain. Non contrast axial CT images obtained from lung bases to pubic symphysis at 2. [address] abdomen. Mild to moderate a telectasis at lung bases without pleural effusion. There is diffuse fatty infiltration of the liver. The gallbladder, adrenal glands and IVC are no rmal. Aorta is tortuous and ectatic. Punctate calcification midpole left k idney . There are several punctate calcifications in the right kidney, and there is a 9 mm calcification in proximal right ureter with mild right-si ded hydronephrosis. There is a 5 cm rounded dense mass in the left upper quadrant. The spleen is not visualized. This may represent the sequela of splenectomy, or could be arising from the upper pole of left kidney. The pancreas, especially pancreatic head is enlarged and inflamed. Large a mount of inflammation in the mesentery around the pancreas especially the head extending into the anterior pararenal space. Probable reactive edema involving the wall of the duodenum. Do not see a phlegmon formation, absce ss, pseudocyst or free air. The small bowel loops and appendix are normal. Colon unremarkable. CT pelvis. Urinary blad amy normally distended. Prostate gland mildly prominent and contains calci fications. No pelvic free fluid, masses or adenopathy. Proximal left femur appear somewhat sclerotic with thickened cortex. IMPRESSI ON: 1. Acute pancreatitis, with resultant inflammatory change and edema of the duodenum. 2. Bilateral nephrocalcinosis. There is a 9 mm calcification in proximal right ureter with mild right-sided hydronephro sis. 3. Fatty liver. 4. There is a 5 cm rounded hyperdensity in the left upper quadrant. This could represent sequela of splenectomy , o r renal mass. Correlation with renal ultrasound is recommended. 5. Sclerotic appearing proximal left femur with thickened cortex may rep resent Paget's disease. Dedicated plain films of this region and/or bone scan recommended. at 0854 Reported and signed by: Jose Antonio Burgos D.O. [facility] Conr oe NAME: ANKUR DEGROOT MEDICAL IMAGIN G PHYS: Liset May MD [address] [place] [address] BL : 1955 AGE: 53 SEX: NONA [place] [id number] LOC: UNK PHONE #: [phone] EXAM DATE: 07/11/2009 STATUS: UNK FAX #: [phone] RAD #: D/C DT PAGE 1 Signed Report (CONTINUED) Patient Name: ANKUR DEGROOT Unit No: [id number] EXAMS: CPT CODE: [id number] CT ABDOMEN W/O CONTRAST [id number] PELVIS W/O CONTRAST 06604 <Continued> CC: Liset Collins MD Dictated Date/Time: 07/11/2009 (45) Technologist: Joyce Lucio CTDI: DLP: Trnscrpt: 07/11/2009 (0854) Judd KAELYN Allen NAME: ANKUR DEGROOT [facility] PHYS: Liset May MD [address] [place] [address] BLVD : 1955 AGE: 53 SEX: Bertrand [place] [address] LOC: [place] PHONE #: [phone] EXAM DATE: 07/11/2009 STATUS: [facility] FAX #: [phone] RAD #: D/C DT PAGE 2 Signed Report Patient Name: ANKUR DEGROOT Unit No: [id number] EXAMS: CPT CODE: [id number] CT ABDOMEN W/O CONTRAST [id number] PELVIS W/O CONTRAST 85629 <Continued> Orig Print D/T: S: 07/11/2009 (0858) KAELYN Allen NAME: ANKUR DEGROOT MED[facility] IMAG[facility] PHYS: Liset May MD [address] [place] [address] BLVD : 1955 AGE: 53 SEX: Bertrand [place] [address] LOC: [place] PHONE #: [phone] EXAM DATE: 07/11/2009 STATUS: [facility] FAX #: [phone] RAD #: D/C DT PAGE 3 Signed Report - NM LIVER [id number] 13:05:00 Patient Name: ANKUR DEGROOT Unit No: [id number] EXAMS: CPT CODE: [id number] NM LIVER SPLEEN 62992 Liver/spleen scan, 11/23/01 CPT: 94940 Technique: Liver/spleen scan w as performed following IV administration of 8 mCi technetium 99m sulfur co lloid. Findings: There is homogeneous uptake of radionuclide throu ghout the liver. Minimal activity is noted within the left upper quadrant consistent with a small spleen or accessory spleen. The liver is nor mal in size. Impression: Normal liver/spleen scan with small for accessory spleen noted in the left upper quadrant. Electronically Signed by Shoshana Cochran on 1 at 0738 Reported and signed by: Steven Cochran M.D. Nuclear Medicine Cardiol ogy exams performed on dual head cameras with appropriate software for proce ssing and reporting. KAELYN Allen [facility] PHY S: JOSÉ ANTONIO Carrera[address] : AGE: 46 SEX: Bertrand [place] [address] ACCT NO: [id number] LOC: [place] PHONE #: [phone] EXAM DATE: 002 STATUS: UNK FAX #: [phone] RAD NO: DC D t: PAGE 1 Signed Report Patient Name: ANKUR DEGROOT Unit No: [id number] EXAMS: CPT CODE: [id number] NM LIVER SPLEEN 38670 <Continued > CC: Jose Antonio Carrera MD Technologist: Nydia Sanchez; Ana Heart; Stacy Bustamante Transcribed Date/Time: 11/25/2001 (4142) - B.RAD.PHYLICIA KAELYN Riosroe NAME[facility] PHYS: JOSÉ ANTONIO [address] : 1955 AGE: 46 SEX: Bertrand [place] [address] LOC: UNK PHONE #: [phone] EXAM DATE: 11/23/2001 STATUS: UNK FAX #: [phone] RAD NO: DC Dt: PAGE 2 Signed Report
--- OUTSIDE RECORDS SUMMARY | 2019-12-14 19:36 | XMS REPORT | Continuity of Care Document ---
Author Author Kirstie Valero Information ANKUR Almeida Organization [facility] [employer] Address Unknown Phone Unavailable Care Team Providers Care Build And Release Manager Name Role Phone [facility] [employer] Information Exchange Unavailable Un available Problems Problem Status Onset Date Classification Date Reported Comments Source CELLULITIS Active 11/08/2018 [place] Weakness 05/06/2018 [facility] Encounter for other administrative examinations 10/19/2017 03/20/2018 [facility] HOSPITAL FOLLOW UP WITH MONITOR 2 WKS Active 10/18/2017 [facility] CODE STROKE POSS Active 10/16/2017 [facility] ATAXIA, RIGHT SIDED WEAKNESS A ctive 10/16/2017 [facility] 2 WKS FOLLOW UP Active 08/19/2017 [facility] I50.9, I10 Active 06/03/2017 [facility] Hypertensive heart disease with heart failure 05/28/2017 08/26/2017 [facility] I50.9 Active 05/20/2017 [facility] Atherosclerosis of [place] arteries of ex tremities with intermittent claudication, bilateral legs 04/30/2017 07/31/2017 [facility] [place] Other complications of procedures, not e lsewhere classified, initial encounter 04/20/2017 07/21/2017 [facility] I70.213 - ATHSCL COUNCIL ARTERIES OF EXTR Active 04/13/2017 [facility] 6 MONTHS FOLLOW UP Active 04/13/2017 [facility] R42 R06.02 I10 R60.9 Active 04/05/2017 [facility] FOLLOW UP 2 WKS Active 04/05/2017 [facility] HOSPITAL FOLLOW UP Active 04/02/2017 [facility] FOLLOW UP Active 04/01/2017 [facility] Non-ST elevation (NSTEMI) myocardial infarction 03/23/2017 06/13/2017 [facility] 1 WK F/U Active 03/18/2017 [facility] HOSPITAL F/U Active 03/09/2017 [facility] Atherosclerotic heart disease of [place] coronary artery with unspecified angina pectoris 02/26/2017 05/28/2017 [facility] CORONARY ARTERY DISEASE Active 02/19/2017 [facility] CP Active [facility] PNEUMONIA, CHEST PAIN Active 02/15/2017 [facility] Type 2 diabetes mellitus without complications 05/06/2018 [facility], [facility] [place] Atherosclerotic heart disease of [place] coronary artery without angina pectoris 05/06/2018 [facility], [facility] [place],[facility] Hypertensive heart and chronic kidney di sease with heart failure and stage 1 through stage 4 chronic kidney disease, or unspecified chronic kidney disease 05/06/2018 [facility] Personal history of transient ischemic a ttack (TIA), and cerebral infarction without residual deficits 05/06/2018 [facility] Chronic systolic (congestive) heart failure 05/06/2018 [facility] Hyperlipidemia, unspecified 05/06/2018 [facility], [facility] [place] Chronic kidney disease, stage 3 (moderate) 05/06/2018 [facility] Type 2 diabetes mellitus with diabetic c hronic kidney disease 05/06/2018 [facility] Obesity, unspecified 05/06/2018 [place] Ataxia, unspecified 05/06/2018 [place] Atherosclerosis of aorta 05/06/2018 [facility] Degenerative disease of nervous system, unspecified 05/06/2018 [place] Cerebral cysts 05/06/2018 [facility] senior care (current) use of antithromboti cs/antiplatelets 05/06/2018 [facility] senior care (current) use of insulin 05/06/2018 [facility] senior care (current) use of aspirin 05/06/2018 [facility], [facility] [place] Pneumonia, unspecified organism 05/28/2017 [facility] Acute on chronic diastolic (congestive) heart failure 05/28/2017 [facility] Morbid (severe) obesity due to excess calories 05/28/2017 [facility] Hypomagnesemia 05/28/2017 [facility] Body mass index (BMI) 29.0-29.9, adult 05/28/2017 [facility] Acute systolic (congestive) heart failure 06/13/2017 [facility] Cardiogenic shock 06/13/2017 [facility] Respiratory failure, unspecified with hypercapnia 06/13/2017 [facility] Encephalopathy, unspecified 06/13/2017 [facility] Ventricular fibrillation 06/13/2017 [facility] Ventricular tachycardia 06/13/2017 [facility] Acute posthemorrhagic anemia 06/13/2017 [facility] Acidosis 06/13/2017 [facility] Other specified coagulation defects 06/13/2017 [facility] Stenosis of vascular prosthetic devices, implants and grafts, initial encounter 06/13/2017 [facility] Intraoperative hemorrhage and hematoma o f a circulatory system organ or structure complicating a cardiac bypass 06/13/2017 [facility] Thrombocytopenia, unspecified 06/13/2017 [facility] Ischemic cardiomyopathy 06/13/2017 [facility] [place] Presence of coronary angioplasty implant and graft 06/13/2017 [facility] [place] senior care (current) use of oral hypoglycemic drugs 06/13/2017 [facility] Allergy status to other antibiotic agents status 06/13/2017 [facility] Surgical operation with implant of artif icial internal device as the cause of abnormal reaction of the patient, or of later complication, without mention of misadventure at the time of the procedure 06/13/2017 [facility] Nonrheumatic aortic (valve) stenosis 06/13/2017 [facility] Postprocedural hypotension 06/13/2017 [facility] Physical restraint status 06/13/2017 [facility] Other specified peripheral vascular diseases 06/13/2017 [facility] Restlessness and agitation 06/13/2017 [facility] Surgical operation with anastomosis, byp ass or graft as the cause of abnormal reaction of the patient, or of later complication, without mention of misadventure at the time of the procedure 06/13/2017 [facility] Personal history of urinary calculi 06/13/2017 [facility] Encounter for immunization 06/13/2017 [facility] Cellulitis, unspecified 07/21/2017 [place] Cutaneous abscess of left lower limb 07/21/2017 [place] [place] Pain in left leg 07/21/2017 [facility] [place] hypercholesterolemia, unspecified 06/23/2017 [facility] Essential (primary) hypertension 07/21/2017 [facility] [place] Body mass index (BMI) 25.0-25.9, adult 06/23/2017 [facility] Presence of aortocoronary bypass graft 06/23/2017 [facility] Localized edema 07/21/2017 [facility] Dizziness and giddiness 07/12/2017 [facility] Shortness of breath 07/12/2017 [facility] Edema, unspecified 07/12/2017 [facility] Other specified postprocedural states 07/31/2017 [facility] Diabetes mellitus (disorder) R esolved Problem 04/2018 [facility] Out[facility] - [place],[facility] Hypercholesterolemia (disorder) Resolved Problem 04/2018 [facility] [place],[facility] Hypertensive disorder, systemic arterial (disorder) Resolved Problem 11/10/2018 [facility]patient [facility] - [place],[facility] Left anterior fascicular block 08/26/2017 [facility] Abnormal electrocardiogram [ECG] [EKG] 08/26/2017 [facility] Presence of cardiac pacemaker 08/26/2017 [facility] PNEUMONIA, UNSPECIFIED ORGANISM Active [facility] ATAXIA, UNSPECIFIED Active [facility] WEAKNESS Active [facility] Medications Medication Details Route Status Patient Instructions Ordering Provider Order Date Source Insulin Lispro Notes: (Same as : Humalog ) Roll in palms of hands gently; Do not shake `vigorously. "Single Patient Use Only " WASTE: F/P - Black; E - Municipal Trash Bin Stable for 28 days at room temp erature. Expires in days from Date Inactive 10/17/2017 [facility] Dextrose 50% Syringe 12.5 gm, 25 mL, Route: IVP, Drug Form: INJ, Dosing Weight 100.909, kg, PRN, PRN Blood Glucose Results, Start date: 10/17/17 10:45:00 CDT, Duration: 30 day, Stop date: 11/16/17 10:44:00 CDT Inactive 10/17/2017 [facility] Glucagon 1 mg, Route: IM, Drug form: PDR/INJ, PRN, Dosing Weight 100.909, kg, PRN Blood Glucose Results, Start date: 10/17/17 10:45:00 CDT, Duration: 30 day, Stop date: 11/16/17 10:44:00 CDT Inactive 10/17/2017 [facility] potassium phosphate-sodium phosphate 250 mg-45 mg-298 mg oral tablet Notes: (Same as: K-Phos Neutral, Phospha 250 Neutral) Inactive 10/17/2017 [facility] K-Phos Original 250 mg, Route: PO, Drug form: TAB, ONCE, Dosing Weight 100.909, kg, Start date: 10/17/17 10:25:00 CDT, Stop date: 10/17/17 10:25:00 CDT Inactive 10/17/2017 [facility] MAGNESIUM GLUCONATE Notes: (Sa me as: [place]) Magnesium gluconate 500mg=27mg elemental magnesium Dose= mg magnesium gluconate(___mg elemental magnesium) Inactive 10/17/2017 [facility] Aspirin 81 MG Enteric Coated Tablet Notes: Do not crush or chew. (Same As: Ecotrin) Inactive 10/17/2017 [facility] Plavix Notes: (Same As: Plavix) No Longer Active 10/17/2017 [facility] clopidogrel Notes: (Same As: P lavix) Inactive 10/17/2017 [facility] Vitamin B12 Notes: (Same As: V itamin B12) Inactive 10/17/2017 [facility] pantoprazole Notes: Tablet aidan uld not be chewed or crushed. (Same as: Protonix) Inactive 10/17/2017 [facility] atorvastatin Notes: (Same as: Lipitor) No Longer Active 10/17/2017 [facility] 24 HR Metoprolol Tartrate 25 MG Extended Release Tablet [Toprol] Notes: (Same as: Toprol XL) Do Not Crush Inactive 10/16/2017 [facility] Corlanor Notes: Hold and conta ct prescriber if HR <50 bpm. (Same as: Corlanor) Inactive 10/16/2017 [facility] Finasteride Notes: (Same as: P roscar) "Do Not Crush" Women of childbearing age should not touch or handle broken tablets No Longer Active 10/16/2017 [facility] Acetaminophen 325 MG / Hydrocodone Juan trate 5 MG Oral Tablet [[place] 5/325] Notes: (Same as: [place] 325/5) Do not ex ceed 4gm/day of acetaminophen. No Longer Activ e 10/16/2017 [facility] pantoprazole 40 mg, PO, Daily, # 30 tab, 0 Refill(s) Active 10/16/2017 [facility] Metformin hydrochloride 500 MG Oral Tablet 500 mg = 1 tab, PO, BID, 0 Refill(s) Active 10/16/2017 [facility] atorvastatin 40 mg oral tablet 40 mg = 1 tab, PO, Bedtime, # 30 tab, 0 Refill(s) Active 10/16/2017 [facility] Furosemide 20 mg, PO, Q12H, 0 Refill(s) No Longer Active 10/16/2017 [facility] clopidogrel 75 mg, PO, Daily, 0 Refill(s) Active 10/16/2017 [facility] Finasteride 5 mg = 1 tab, PO, Daily, # 30 tab, 0 Refill(s) Active 10/16/2017 [facility] NS 500 mL 500 mL, Rate: 75 ml/ hr, Infuse over: 6.7 hr, Route: IV, Dosing Weight 100.909 kg, Total Volume: 500, Start date: 10/16/17 5:05:00 CDT, Duration: 1 doses or times, Stop date: 10/16/17 11:46:00 CDT, 2.33, m2 Inactive 10/16/2017 [facility] NS 1,000 mL 1,000 mL, Rate: 15 0 ml/hr, Infuse over: 6.7 hr, Route: IV, Dosing Weight 100.909 kg, Total Volume: 1,000, Start date: 10/16/17 4:56:00 CDT, Duration: 1 doses or times, Stop date: 10/16/17 11:37:00 CDT, 2.33, m2 Inactive 10/16/2017 [facility] Acetaminophen 300 MG / Codeine Phosphate 60 MG Oral Tablet [Tylenol with Codeine #4] 1 tab, PO, BID, PRN Pain, # 32 tab, 0 Re fill(s) Active 10/16/2017 [facility] Magnesium Oxide 400 mg, PO, Da verónica, 0 Refill(s) No Longer Active 10/16/2017 [facility] Aspirin Notes: Take with food. Inactive 10/16/2017 [facility] Plavix Notes: (Same As: Plavix) Inactive 10/16/2017 [facility] Saline Flush 0.9% Notes: Same as: BD Posiflush Sterile No Longer Active 10/16/2017 [facility] multivitamin Daily Active 08/31/2017 [facility] Glucosamine Chondroitin PO, Da verónica Active 08/31/2017 [facility] ivabradine 5 MG Oral Tablet [Corlanor] 2.5 mg = 0.5 tab, PO, BID No Longer Active 08/31/2017 [facility] 24 HR Metoprolol Tartrate 50 MG Extended Release Tablet [Toprol] 50 mg = 1 tab, PO, Daily, # 30 tab Active 06/03/2017 [facility] sacubitril 49 MG / valsartan 51 MG Oral Tablet [Entresto] 1 tab, PO, BID, # 56 tab Active 06/03/2017 [facility] atorvastatin 40 MG Oral Tablet [Lipitor] 40 mg = 1 tab, PO, Bedtime, # 30 tab, 3 Refill(s), Pharmacy: [facility] [id number] Active 05/20/2017 [facility] Metformin hydrochloride 500 MG Oral Tablet 500 mg = 1 tab, PO, BID-Meals, # 60 tab, 1 Refill(s), Pharmacy: [facility] [id number] Active 05/20/2017 [facility] 24 HR Metoprolol Tartrate 25 MG Extended Release Tablet [Toprol] 25 mg = 1 tab, PO, Daily, # 30 tab, 3 Re fill(s), Pharmacy: [facility] [id number] No Longer Active 05/20/2017 [facility] sacubitril 24 MG / valsartan 26 MG Oral Tablet [Entresto] 1 tab, PO, BID, # 60 tab, 3 Refill(s), P harmacy: [facility] [id number] No Longer Active 05/20/2017 [facility] Furosemide 20 MG Oral Tablet [Lasix] 20 mg = 1 tab, PO, Q12H, # 30 tab, 1 Refill(s), Pharmacy: [facility] [id number] Active 04/05/2017 [facility] finasteride 5 mg oral tablet 5 mg = 1 tab, PO, Daily, # 30 tab, 1 Refill(s), Pharmacy: [facility] [id number] Active 04/05/2017 [facility] tramadol hydrochloride 50 MG Oral Tablet 50 mg = 1 tab, PO, Q6H, PRN Pain, X 30 day, # 60 tab, 1 Refill(s), other No Longer Active 04/05/2017 [facility] Acetaminophen 300 MG / Codeine Phosphate 30 MG Oral Tablet [Tylenol with Codeine #3] 1 - 2 tab, PO, Q6H, PRN Pain, X 14 day, # 30 tab, 0 Refill(s), other No Longer Active 04/05/2017 [facility] Amoxicillin 875 MG / Clavulanate 125 MG Oral Tablet [Augmentin 875-mg] 875 mg = 1 tab, PO, BID, X 7 day, # 14 t ab, 0 Refill(s), Pharmacy: [facility] [id number] No Longer Active 04/05/2017 [facility] Metformin hydrochloride 500 MG Oral Tablet 500 mg = 1 tab, PO, BID-Before Meals, # 30 tab, 1 Refill(s) Active 03/07/2017 [facility] Acetaminophen 300 MG / Codeine Phosphate 30 MG Oral Tablet [Tylenol with Codeine #3] See Instructions, 1-2 tab PO Q12hrs for pain, # 30 tab, 0 Refill(s) No Longer Active 03/07/2017 [facility] pantoprazole 40 mg oral enteric coated tablet 40 mg = 1 tab, PO, Before Breakfast, # 30 tab, 2 Refill(s) Active 03/07/2017 [facility] clopidogrel 75 mg oral tablet 75 mg = 1 tab, PO, Daily, # 30 tab, 2 Refill(s) Active 03/07/2017 [facility] metoprolol tartrate 25 mg oral tablet 12.5 mg = 0.5 tab, PO, Q12H, # 30 tab, 2 Refill(s) No Longer Active 03/07/2017 [facility] Insulin Glargine 100 UNT/ML Injectable Solution 20 unit, SUB-Q, Before Dinner, # 10 mL, 2 Refill(s) Inactive 03/07/2017 [facility] Furosemide 20 MG Oral Tablet 2 0 mg = 1 tab, PO, Daily, # 30 tab, 2 Refill(s) No Longer Active 03/07/2017 [facility] Morphine Notes: (Same as:MORPh ine Sulfate) Inactive 03/07/2017 [facility] Tramadol Notes: Not to exceed 400mg/day. (Same As: Ultram) Inactive 03/06/2017 [facility] Insulin Glargine Notes: (Same as: Lantus) Do not hold insulin without contacting prescriber WASTE: F/P - Black; E - Municipal Trash Bin "single patient use only" No Longer Active 03/05/2017 [facility] Insulin Lispro Notes: (Same as : Humalog ) Roll in palms of hands gently; Do not shake `vigorously. "Single Patient Use Only " WASTE: F/P - Black; E - Municipal Trash Bin Stable for 28 days at room temp erature. Expires in days from Date No Longer Active 03/04/2017 [facility] Insulin Glargine Notes: (Same as: Lantus) Do not hold insulin without contacting prescriber WASTE: F/P - Black; E - Municipal Trash Bin "single patient use only" No Longer Active 03/03/2017 [facility] nt Furosemide 20 MG Oral Tablet [Lasix] Notes: (Same as: Lasix) May cause GI upset. Give with food or milk. No Longer Active 03/03/2017 [facility] Furosemide 40 MG Oral Tablet [Lasix] Notes: (Same as: Lasix) 10 mg = 1/2 x 20 mg TAB May cause GI upset. Give with food or milk. Inactive 03/03/2017 [facility] Miralax Notes: Dissolve in 8 o z of water or juice. (Same as: Miralax) No Longer Active 03/03/2017 [facility] Seroquel Notes: (Same as: SERO quel) No Longer Active 03/03/2017 [facility] Ferrlecit Notes: (sodium saji c gluconate complex (elemental iron) 62.5 mg/5 ml INJ) "Limited stability. Use immediately after admixture" (Same as: Ferrlecit) MEDICATION WASTE Product Size: 62.5 mg Product Wasted: __0_ mg No Longer Active 03/02/2017 [facility] Lasix Notes: (Same as: Lasix) Inactive 03/02/2017 [facility] clopidogrel Notes: (Same As: P lavix) No Longer Active 03/02/2017 [facility] pantoprazole Notes: Tablet aidan uld not be chewed or crushed. (Same as: Protonix) N o Longer Active 03/02/2017 [facility] Insulin Lispro Notes: (Same as : Humalog ) Roll in palms of hands gently; Do not shake `vigorously. "Single Patient Use Only " WASTE: F/P - Black; E - Municipal Trash Bin Stable for 28 days at room temp erature. Expires in days from Date No Longer Active 03/02/2017 [facility] metoprolol tartrate Notes: (Sa me as: Lopressor) 12.5 mg=1/2 X 25 mg TAB No Longer Active 03/02/2017 [facility] Acetaminophen 325 MG / Hydrocodone Juan trate 5 MG Oral Tablet [[place] 5/325] Notes: (Same as: [place] 325/5) Do not ex ceed 4gm/day of acetaminophen. No Longer Activ e 03/01/2017 [facility] Seroquel Notes: (Same as: LESLIE cagle) No Longer Active 02/28/2017 [facility] Sodium Chloride 0.9% IV 1,000 mL + M.V.I .-12 10 mL Daily + folic acid IV 1 mg Daily + thiamine IV 1 1,000 mL, Rate: 100 ml/hr, Infuse over: 10.1 hr, Route: IV, Dosing Weight 100.909 kg, Total Volume: 1,011.2, Start date: 02/28/17 12:59:00 TRANSFER AND LINE UP WORKER, Duration: 3 day, Stop date: 03/03/17 12:58:00 TRANSFER AND LINE UP WORKER, 2.33, m2 No Longer Active 02/28/2017 [facility] Seroquel Notes: (Same as: SERO quel) Inactive 02/28/2017 [facility] Lasix Notes: (Same as: Lasix) No Longer Active 02/27/2017 [facility] Seroquel Notes: (Same as: SERO quel) No Longer Active 02/27/2017 [facility] Insulin Glargine Notes: Same a s: Lantus) Do not hold insulin without contacting prescriber WASTE: F/P - Black; E - Municipal Trash Bin No Longer Active 02/27/2017 [facility] Acetaminophen 10 MG/ML Injectable Solution Notes: Infuse over 15 minutes Do not exceed 4gm/day of acetaminophen MEDICATION WASTE Product Size: 1000 mg Product Wasted: ___ mg Inactive 02/27/2017 [facility] Haldol Notes: (Same as: Haldol) Inactive 02/27/2017 [facility] heparin Notes: porcine heparin No Longer Active 02/27/2017 [facility] Insulin Glargine Notes: (Same as: Lantus) Do not hold insulin without contacting prescriber WASTE: F/P - Black; E - Municipal Trash Bin "single patient use only" No Longer Active 02/27/2017 [facility] nt Insulin Lispro Notes: (Same as : Humalog ) Roll in palms of hands gently; Do not shake `vigorously. "Single Patient Use Only " WASTE: F/P - Black; E - Municipal Trash Bin Stable for 28 days at room temp erature. Expires in days from Date No Longer Active 02/26/2017 [facility] Dextrose 50% Syringe 25 gm, 50 mL, Route: IVP, Drug Form: INJ, Dosing Weight 100.909, kg, PRN, PRN Blood Glucose Results, Start date: 02/26/17 17:39:00 TRANSFER AND LINE UP WORKER, Duration: 30 day, Stop date: 03/28/17 17:38:00 TRANSFER AND [employer] UP WORKER No Longer Active 02/26/2017 [facility] Glucagon 1 mg, Route: IM, Drug form: PDR/INJ, PRN, Dosing Weight 100.909, kg, PRN Blood Glucose Results, Start date: 02/26/17 17:39:00 TRANSFER AND LINE UP WORKER, Duration: 30 day, Stop date: 03/28/17 17:38:00 TRANSFER AND [employer] UP WORKER No Longer Active 02/26/2017 [facility] Dexmedetomidine 400 microgram, 4 mL, Rate: Titrate, Start Dose: 0.2 microgram/kg/hr, Titration: 0.1 microgram/kg/hr every 30 min, Goal(s): comfort, Max Dose: 0.5 microgram/kg/hr, Route: IV, Dosing Weight 100.909 kg, Total Volume: 100, Start date: 02/26/17 16:28:00 CS... No Longer Active 02/26/2017 [facility] Haldol 2 mg, Route: IV, ONCE, Dosing Weight 100.909, kg, Start date: 02/26/17 15:58:00 TRANSFER AND LINE UP WORKER, Stop date: 02/26/17 15:58:00 TRANSFER AND LINE UP WORKER Inactive 02/26/2017 [facility] Versed 2 mg, Route: IVP, ONCE, Dosing Weight 100.909, kg, Start date: 02/26/17 15:10:00 TRANSFER AND [employer] WORK[employer], Stop date: 02/26/17 15:10:00 TRANSFER AND [employer] WORKER Inactive 02/26/2017 [facility] Midazolam 2 mg, Route: IVP, ON CE, Dosing Weight 100.909, kg, Start date: 02/26/17 7:55:00 TRANSFER AND [employer] WORKER, Stop date: 02/26/17 7:55:00 TRANSFER AND [employer] WORKER Inactive 02/26/2017 [facility] heparin additive 25,000 unit [400 unit/h r] + Premix Diluent Sodium Chloride 0.45% 500 mL Notes: Total Concentration = 50 unit/ ml Total volume = 500 ml Send Med Request 2 hours prior to next bag No Longer Active 02/26/2017 [facility] Famotidine Notes: (Same as: Pe pcid) Can be dilute in 5- 10cc NS IVP: Slow IV push over at least 2 minutes. No Longer Active 02/26/2017 [facility] docusate sodium 100 mg oral capsule Notes: (Same as: Colace) (Do Not Crush) No Longer Active 02/25/2017 [facility] Aspirin 81 MG Chewable Tablet Notes: Take with food. No Longer Active 02/25/2017 [facility] Diphenhydramine Notes: (Same a s: Benadryl) No Longer Active 02/25/2017 [facility] Diphenhydramine Notes: (Same a s: Benadryl) No Longer Active 02/25/2017 [facility] Famotidine Notes: (Same as: Pe pcid) Can be dilute in 5- 10cc NS IVP: Slow IV push over at least 2 minutes. Inactive 02/25/2017 [facility] Versed Notes: (Same as: Versed ) MEDICATION WASTE Product Size: 2 mg Product Wasted: ___ mg No Longer Active 02/25/2017 [facility] Versed Notes: (Same as: Versed ) MEDICATION WASTE Product Size: 2 mg Product Wasted: ___ mg Inactive 02/25/2017 [facility] Mupirocin 1 appl, Route: NASAL , Q12H, Drug form: OINT, Start date: 02/24/17 21:00:00 TRANSFER AND [employer] UP WORKER, Stop date: 03/01/17 9:00:00 TRANSFER AND [employer] UP WORKER, MRSA Decolonization No Longer Activ e 02/25/2017 [facility] Sodium Chloride 0.9% (titrate) 250 mL 250 mL, Rate: herpetology teacher for use with blood product administration, Dosing Weight 100.909, kg, Route: IV, Total Volume: 250, Start Date: 02/24/17 19:20:00 TRANSFER AND [employer] UP WORKER, Duration: 30 day, Stop date: 03/26/17 19:19:00 TRANSFER AND LINE UP WORKER, Replace Every: 24 hr No Longer Active 02/25/2017 [facility] Pepcid Notes: (Same as: Pepcid ) Can be dilute in 5-10cc NS IVP: Slow IV push over at least 2 minutes. Inactive 02/24/2017 [facility] Zantac 50 mg, Route: IVPB, ONC E, Dosing Weight 100.909, kg, Start date: 02/24/17 13:34:00 TRANSFER AND [employer] UP WORKER, Stop date: 02/24/17 13:34:00 TRANSFER AND [employer] UP WORKER Inactive 02/24/2017 [facility] Diphenhydramine Notes: (Same a s: Benadryl) Inactive 02/24/2017 [facility] methylPREDNISolone SODium SUCCinate Notes: (Same as:Solu-MEDROL, A-Methapred) N o Longer Active 02/24/2017 [facility] albumin human 5% intravenous solution Notes: LOT#: Mfg: WASTE: F/P - Red; E -Red (Same as: Albuminar) "blood product derivative" Inactive 02/24/2017 [facility] cefepime Notes: (Same As: Alan avery) MEDICATION WASTE Product Size: 1000 mg Product Wasted: ___ mg No Longer Active 02/24/2017 [facility] Fluconazole Notes: (Same as: D iflucan) No Longer Active 02/24/2017 [facility] pantoprazole Notes: For IV pus h reconstitute with 10 ml 0.9% sodium chloride and push over 2 minutes. (Same as: Protonix) No Longer Active 02/24/2017 [facility] Miralax Notes: Dissolve in 8 o z of water or juice. (Same as: Miralax) No Longer Active 02/24/2017 [facility] Docusate Sodium 100 MG Oral Capsule [Colace] Notes: (Same as: Colace) (Do Not Crush) No Longer Active 02/24/2017 [facility] vancomycin 2001 mg: infuse ov er 2.5 hours For adult patients only: Round to nearest 250 mg per Medical Staff approval MEDICATION WASTE Product Size: 1000 mg Product Wasted: ___ mg No Longer Active 02/24/2017 [facility] Dexmedetomidine 400 microgram, 4 mL, Rate: Titrate, Start Dose: 0.2 microgram/kg/hr, Titration: 0.1 microgram/kg/hr every 30 min, Goal(s): RASS -1, Max Dose: 1.5 microgram/kg/hr, Route: IV, Dosing Weight 100.909 kg, Total Volume: 100, Start date: 02/24/17 8:42:00 TRANSFER AND LINE UP WORKER... No Longer Active 02/24/2017 [facility] Benadryl Notes: (Same as: [place] dryl) Inactive 02/24/2017 [facility] Vasopressin (RESIDENTIAL) Notes: (Same As: Pitressin, Vasostrict) No Longer Active 02/24/2017 [facility] Cefazolin 2 gm, Route: IVPB, D rug form: INJ, Q8H, Dosing Weight 100.909, kg, Start date: 02/24/17 0:00:00 TRANSFER AND [employer] UP WORKER, Duration: 3 doses or times, Stop date: 02/24/17 16:00:00 TRANSFER AND LINE UP WORKER, ABX Indication: Surgical Prophylaxis No Longer Active 02/24/2017 [facility] ocular lubricant Notes: (Same as: Lacri-Lube, Duratears Naturale, Artificial Tears, and Tears Again ) No Longer Active 02/24/2017 [facility] sodium bicarbonate 8.4% Notes: (sodium bicarb 8.4% (1 mEq/ml) 50 ml VL) Inactive 02/24/2017 [facility] ceFAZolin (SCIP) Notes: (Same as Ancef) No Longer Active 02/24/2017 [facility] albumin human 25% intravenous solution Notes: Lot #: Mfg: (Same as: Plasbumin-25) "blood product derivative" WASTE: F/P - Red; E -Red MEDICATION WASTE Product Size: 25 gm Product Wasted: _0_ gm Inactive 02/24/2017 [facility] Vancomycin 1,500 mg, Route: IV PB, Drug form: INJ, Q12H, Dosing Weight 100.909, kg, Time Critical Medication, Start date: 02/23/17 21:00:00 TRANSFER AND LINE UP WORKER, Duration: 2 doses or times, Stop date: 02/24/17 9:00:00 TRANSFER AND LINE UP WORKER, ABX I ndication: Surgical Prophylaxis Inactive 02/24/2017 [facility] chlorhexidine gluconate 1.2 MG/ML Mouthwash Notes: (Same As: Peridex) No Longer Active 02/24/2017 [facility] albumin human 25% intravenous solution 25 gm, Route: IV, ONCE, Dosing Weight 100.909, kg, Start date: 02/23/17 20:27:00 TRANSFER AND LINE UP WORKER, Stop date: 02/23/17 20:27:00 TRANSFER AND LINE UP WORKER Inactive 02/24/2017 [facility] Cefazolin Notes: (Same as Ance f) Inactive 02/24/2017 [facility] sodium phosphate 30 mmol, Rout e: IVPB, ONCE, Dosing Weight 100.909, kg, Priority: STAT, Start date: 02/23/17 19:17:00 TRANSFER AND LINE UP WORKER, Stop date: 02/23/17 19:17:00 TRANSFER AND LINE UP WORKER Inactive 02/24/2017 [facility] potassium phosphate Notes: ([facility] as: K Phosphate.) 1 mMol phoshate has 1.47 mEq potassium Infuse over 4 hours Inactive 02/24/2017 [facility] Sodium Chloride 0.9% (titrate) 250 mL 250 mL, Rate: herpetology teacher for use with blood product administration, Dosing Weight 100.909, kg, Route: IV, Total Volume: 250, Start Date: 02/23/17 19:04:00 TRANSFER AND LINE UP WORKER, Duration: 30 day, Stop date: 03/25/17 19:03:00 TRANSFER AND LINE UP WORKER, Replace Every: 24 hr No Longer Active 02/24/2017 [facility] Vancomycin 2001 mg: infuse ov er 2.5 hours For adult patients only: Round to nearest 250 mg per Medical Staff approval MEDICATION WASTE Product Size: 1000 mg Product Wasted: ___ mg Inactive 02/24/2017 [facility] Norepinephrine Notes: Not for direct administration - DILUTE. Protect from light. (Same as:Levophed). Administer by either central venous catheter or peripherally-inserted central catheter (PICC) line. No Longer Active 02/24/2017 [facility] Epinephrine 8 mg, 8 mL, Rate: Titrate for MAP of 60, Start Dose: 2 microgram/min, Titration: For MAP of 60, Goal(s): MAP of 60, Route: IV, Dosing Weight 100.909 kg, Total Volume: 250, Start date: 02/23/17 18:40:00 TRANSFER AND LINE UP WORKER, Duration: 30 day, Stop date: 03/25/17 18:39:... No Longer Active 02/24/2017 [facility] chlorhexidine gluconate 1.2 MG/ML Mouthwash Notes: (Same As: Peridex) No Longer Active 02/24/2017 [facility] Fentanyl 1,000 microgram, 20 m L, Rate: Titrate, Start Dose: 50 microgram/hr, Titration: 25 microgram/hour every 15 minutes, Goal(s): RASS -2, Max Dose: 300 microgram/hr, Route: IV, Dosing Weight 100.909 kg, Total Volume: 20, Start date: 02/23/17 18:23:00 TRANSFER AND LINE UP WORKER,... No Longer Active 02/24/2017 [facility] Amicar Notes: (Same as: Amicar) Inactive 02/24/2017 [facility] Fentanyl Notes: Concentration is 20 micrograms/ml No Longer Active 02/23/2017 [facility] Naloxone Notes: Same as Narcan No Longer Active 02/23/2017 [facility] Dextrose 50% Syringe 12.5 gm, 25 mL, Route: IVP, Drug Form: INJ, Dosing Weight 100.909, kg, PRN, PRN Blood Glucose Results, Start date: 02/23/17 17:44:00 TRANSFER AND LINE UP WORKER, Duration: 30 day, Stop date: 03/25/17 17:43:00 TRANSFER AND LINE UP WORKER No Longer Active 02/23/2017 [facility] Insulin regular 100 unit + Not es: Final Concentration 1unit/1ml WASTE: F/P - Black; E - Municipal Trash Bin No Longer Active 02/23/2017 [facility] Zofran Notes: (Same as: Chavo ) MEDICATION WASTE Product Size: 4 mg Product Wasted: _0_ mg No Longer Active 02/23/2017 [facility] sennosides, RESIDENTIAL 8.6 MG Oral Tablet Notes: (Same as: Senokot) No Longer Active 02/23/2017 [facility] Cardene 40 mg in NS 200 mL (Titrate.) IV 40 mg Notes: Same as: Cardene Concentration: (0.2 mg /1 ml ) No Longer Active 02/23/2017 [facility] Acetaminophen 325 MG / Hydrocodone Juan trate 10 MG Oral Tablet Notes: Do not exceed 4gm/day of acetamin ophen. (Same as: [place] 325/10) No Longer Active 02/23/2017 [facility] Acetaminophen Notes: Do not ex ceed 4 gm/day. (Same as: Tylenol) No Longer Active 02/23/2017 [facility] hydrocortisone (ANES) Route: I V, Drug form: INJ, ONCE, Stop date: 02/23/17 16:30:00 TRANSFER AND LINE UP WORKER Inactive 02/23/2017 [facility] Stimate (ANES) 4 microgram Rou te: IV, Drug Form: INJ, Start date: 02/23/17 16:13:00 TRANSFER AND LINE UP WORKER, Stop date: 02/23/17 17:13:00 TRANSFER AND LINE UP WORKER Inactive 02/23/2017 [facility] methylene blue (ANES) 10 mg [place]: IV, Drug form: INJ, Start date: 02/23/17 14:42:00 TRANSFER AND LINE UP WORKER, Stop date: 02/23/17 15:42:00 TRANSFER AND LINE UP WORKER Inactive 02/23/2017 [facility] protamine (ANES) 10 mg Route: IV, Drug form: INJ, Start date: 02/23/17 14:42:00 TRANSFER AND LINE UP WORKER, Stop date: 02/23/17 15:42:00 TRANSFER AND LINE UP WORKER Inactive 02/23/2017 [facility] vasopressin (ANES) Route: IV, Drug form: INJ, ONCE, Stop date: 02/23/17 14:29:00 TRANSFER AND LINE UP WORKER Inactive 02/23/2017 [facility] nt calcium gluconate (ANES) Route : IV, Drug form: INJ, ONCE, Stop date: 02/23/17 14:29:00 TRANSFER AND LINE UP WORKER Inactive 02/23/2017 [facility] nt norepinephrine (ANES) 32 microgram Route: IV, Drug form: INJ, Start date: 02/23/17 14:25:00 TRANSFER AND LINE UP WORKER, Stop date: 02/23/17 15:25:00 TRANSFER AND LINE UP WORKER Inactive 02/23/2017 [facility] EPINEPHrine (ANES) Route: IV, Drug form: INJ, ONCE, Stop date: 02/23/17 14:24:00 TRANSFER AND LINE UP WORKER Inactive 02/23/2017 [facility] magnesium sulfate (ANES) Route : IV, Drug form: INJ, ONCE, Stop date: 02/23/17 13:54:00 TRANSFER AND LINE UP WORKER Inactive 02/23/2017 [facility] Sodium Chloride 0.9% IV (ANES) 500 mL Route: IV, Total Volume: 500, Start date: 02/23/17 13:28:00 TRANSFER AND LINE UP WORKER, Stop date: 02/23/17 14:28:00 TRANSFER AND LINE UP WORKER Inactive 02/23/2017 [facility] Sodium Chloride 0.9% IV (ANES) 246 mL + EPINEPHrine (ANES) 4000 microgram Route: IV, Drug form: INJ, Start date: 0 02/23/17 13:26:00 TRANSFER AND LINE UP WORKER, Stop date: 02/23/17 14:26:00 TRANSFER AND LINE UP WORKER Inactive 02/23/2017 [facility] Insulin regular (ANES) Route: IV, Drug form: INJ, ONCE, Stop date: 02/23/17 12:04:00 TRANSFER AND LINE UP WORKER Inactive 02/23/2017 [facility] niCARdipine (ANES) Route: IV, Drug form: INJ, ONCE, Stop date: 02/23/17 10:39:00 TRANSFER AND LINE UP WORKER Inactive 02/23/2017 [facility] heparin (ANES) Route: IV, Drug form: INJ, ONCE, Stop date: 02/23/17 10:24:00 TRANSFER AND LINE UP WORKER Inactive 02/23/2017 [facility] norepinephrine (ANES) Route: I V, Drug form: INJ, ONCE, Stop date: 02/23/17 9:34:00 TRANSFER AND LINE UP WORKER Inactive 02/23/2017 [facility] rocuronium (ANES) Route: IV, D rug form: INJ, ONCE, Stop date: 02/23/17 9:09:00 TRANSFER AND LINE UP WORKER Inactive 02/23/2017 [facility] propofol (ANES) Route: IV, Christian g form: INJ, ONCE, Stop date: 02/23/17 9:09:00 TRANSFER AND LINE UP WORKER Inactive 02/23/2017 [facility] lidocaine (ANES) Route: IV, Dr ug form: INJ, ONCE, Stop date: 02/23/17 9:09:00 TRANSFER AND LINE UP WORKER Inactive 02/23/2017 [facility] ceFAZolin (ANES) Route: IV, Dr ug form: INJ, ONCE, Stop date: 02/23/17 8:58:00 TRANSFER AND LINE UP WORKER Inactive 02/23/2017 [facility] metoprolol (ANES) Route: IV, D rug form: INJ, ONCE, Stop date: 02/23/17 8:53:00 TRANSFER AND LINE UP WORKER Inactive 02/23/2017 [facility] fentaNYL (ANES) Route: IV, Christian g form: INJ, ONCE, Stop date: 02/23/17 8:53:00 TRANSFER AND LINE UP WORKER Inactive 02/23/2017 [facility] midazolam (ANES) Route: IV, Dr ug form: SOLN, ONCE, Stop date: 02/23/17 8:33:00 TRANSFER AND LINE UP WORKER Inactive 02/23/2017 [facility] vancomycin (ANES) 1000 mg Rout e: IV, Drug form: INJ, Start date: 02/23/17 8:30:00 TRANSFER AND LINE UP WORKER, Stop date: 02/23/17 9:30:00 TRANSFER AND LINE UP WORKER Inactive 02/23/2017 [facility] tranexamic acid (ANES) 100 mg Route: IV, Drug form: INJ, Start date: 02/23/17 8:30:00 TRANSFER AND LINE UP WORKER, Stop date: 02/23/17 9:30:00 TRANSFER AND LINE UP WORKER Inactive 02/23/2017 [facility] Sodium Chloride 0.9% IV (ANES) 1000 mL Route: IV, Total Volume: 1,000, Start date: 02/23/17 8:26:00 TRANSFER AND LINE UP WORKER, Stop date: 02/23/17 9:26:00 TRANSFER AND LINE UP WORKER Inactive 02/23/2017 [facility] Isolyte S PH 7.4 (ANES) 1000 mL Route: IV, Total Volume: 1,000, Start date: 02/23/17 8:00:00 TRANSFER AND LINE UP WORKER, Stop date: 02/23/17 9:00:00 TRANSFER AND LINE UP WORKER Inactive 02/23/2017 [facility] Saline Flush 0.9% Notes: (Same as: BD Posiflush) No Longer Active 02/23/2017 [facility] Cefazolin Notes: (Same As: Anc ef, Kefzol) MEDICATION WASTE Product Size: 1000 mg Product Wasted: ___ mg No Longer Active 02/23/2017 [facility] Mupirocin 0.02 MG/MG Topical Ointment Notes: 1/2 UD to each nostril. (Same As: Bactroban) No Longer Active 02/23/2017 [facility] Sodium Chloride 0.9% (titrate) 250 mL 250 mL, Rate: To prime line and flush remaining blood products., Dosing Weight 100.909, kg, Route: IV, Total Volume: 250, Start Date: 02/22/17 18:08:00 TRANSFER AND LINE UP WORKER, Duration: 30 day, Stop date: 03/24/17 18:07:00 TRANSFER AND LINE UP WORKER, Replace Every: 24 hr No Longer Active 02/23/2017 [facility] Saline Flush 0.9% Notes: (Same as: BD Posiflush) No Longer Active 02/23/2017 [facility] Metoprolol Notes: (Same as: Lo pressor) Push over 2 minutes No Longer Active 02/23/2017 [facility] Codeine Phosphate 10 MG / Guaifenesin 30 0 MG Oral Tablet Notes: (Same As: Robitussin AC) No Longer Active 02/22/2017 [facility] Acetaminophen 325 MG / Hydrocodone Juan trate 5 MG Oral Tablet [[place] 5/325] Notes: (Same as: [place] 325/5) Do not ex ceed 4gm/day of acetaminophen. No Longer Activ e 02/22/2017 [facility] Acetaminophen 325 MG / Hydrocodone Juan trate 5 MG Oral Tablet [[place] 5/325] Notes: (Same as: [place] 325/5) Do not ex ceed 4gm/day of acetaminophen. No Longer Activ e 02/21/2017 [facility] Diphenhydramine Notes: (Same a s: Benadryl) Inactive 02/21/2017 [facility] atorvastatin Notes: Same as Mary curry No Longer Active 02/21/2017 [facility] Furosemide 40 MG Oral Tablet N otes: (Same as: Lasix) MEDICATION WASTE Product Size: 40 mg Product Wasted: 0___ mg No Longer Active 02/20/2017 [facility] Furosemide 40 MG Oral Tablet N otes: (Same as: Lasix) May cause GI upset. Give with food or milk. Inactive 02/20/2017 [facility] Pneumovax 23 Notes: (Same as: Pneumovax 23) Refrigerate Inactive 02/20/2017 [facility] insulin glargine Notes: (Same as: Lantus) Do not hold insulin without contacting prescriber WASTE: F/P - Black; E - Municipal Trash Bin "single patient use only" Inactive 02/20/2017 [facility] Saline Flush 0.9% Notes: (Same as: BD Posiflush) No Longer Active 02/20/2017 [facility] influenza virus vaccine, inactivated Notes: (Same as: Fluzone Quadrivalent, Fluarix Quadrivalent) For 3 years of age and older (0.5 mL IM) Shake well before use Inactive 02/20/2017 [facility] pneumococcal capsular polysaccharide typ e 1 vaccine / pneumococcal capsular polysaccharide type 10A vaccine / pneumococcal capsular polysaccharide type 11A vaccine / pneumococcal capsular polysaccharide type 12F vaccine / pneumococcal capsular polysacchar Notes: (Same as: Pneumovax 23) Refrigerate Inactive 02/20/2017 [facility] sacubitril 24 MG / valsartan 26 MG Oral Tablet [Entresto] Notes: (Same as: Entresto) Avoid in pat ients with history of angioedema due to STEPHEN inhibitor or ARB therapy. Do not use concomitantly or within 36 hours of STEPHEN inhibitors No Longer Active 02/20/2017 [facility] metoprolol tartrate Notes: (Sa me as: Lopressor) No Longer Active 02/20/2017 [facility] Insulin Glargine 100 UNT/ML Injectable Solution Notes: (Same as: Lantus) Do not hold insulin without contacting prescriber WASTE: F/P - Black; E - Municipal Trash Bin "single patient use only" No Longer Active 02/20/2017 [facility] Aspirin 81 MG Enteric Coated Tablet Notes: Do not crush or chew. (Same As: Ecotrin) No Longer Active 02/20/2017 [facility] Insulin Lispro Notes: (Same as : Humalog ) Roll in palms of hands gently; Do not shake `vigorously. "Single Patient Use Only " WASTE: F/P - Black; E - Municipal Trash Bin Stable for 28 days at room temp erature. Expires in days from Date No Longer Active 02/20/2017 [facility] heparin additive 25,000 unit [12 unit/kg /hr] + Premix Diluent Sodium Chloride 0.45% 500 mL Notes: Total Concentration = 50 unit/ ml Total volume = 500 ml Send Med Request 2 hours prior to next bag No Longer Active 02/20/2017 [facility] Heparin 30 unit/kg Bolus (Heparin Dosing Weight) Route: IVP, PRN, 3,000 unit, 3 mL, Drug form: INJ, PRN, Heparin Protocol, Start date: 02/20/17 6:28:00 TRANSFER AND LINE UP WORKER Stop date: 03/22/17 6:27:00 TRANSFER AND LINE UP WORKER No Longer Active 02/20/2017 [facility] Heparin 60 unit/kg Bolus (Heparin Dosing Weight) Route: IVP, PRN, 6,100 unit, 6.1 mL, Drug form: INJ, PRN, Heparin Protocol, Start date: 02/20/17 6:28:00 TRANSFER AND LINE UP WORKER Stop date: 03/22/17 6:27:00 TRANSFER AND LINE UP WORKER No Longer Active 02/20/2017 [facility] Insulin Lispro Notes: (Same as : Humalog ) Roll in palms of hands gently; Do not shake `vigorously. "Single Patient Use Only " WASTE: F/P - Black; E - Municipal Trash Bin Stable for 28 days at room temp erature. Expires in days from Date No Longer Active 02/20/2017 [facility] Dextrose 50% Syringe 12.5 gm, 25 mL, Route: IVP, Drug Form: INJ, Dosing Weight 100.909, kg, PRN, PRN Blood Glucose Results, Start date: 02/20/17 6:25:00 TRANSFER AND LINE UP WORKER, Duration: 30 day, Stop date: 03/22/17 6:24:00 TRANSFER AND LINE UP WORKER No Longer Active 02/20/2017 [facility] Glucagon 1 mg, Route: IM, Drug form: PDR/INJ, PRN, Dosing Weight 100.909, kg, PRN Blood Glucose Results, Start date: 02/20/17 6:25:00 TRANSFER AND LINE UP WORKER, Duration: 30 day, Stop date: 03/22/17 6:24:00 TRANSFER AND LINE UP WORKER No Longer Active 02/20/2017 [facility] Calcium Gluconate Notes: WASTE : F/P - Sink; E - Municipal Trash Bin No Longer Active 02/20/2017 [facility] Magnesium Sulfate Notes: WASTE : F/P - Sink; E - Municipal Trash Bin No Longer Active 02/20/2017 [facility] Magnesium Oxide Notes: (Same a s: Mag-Ox 400) Magnesium oxide [id number] elemental magnesium Dose=____mg magnesium oxide (___mg elemental magnesium) No Longer Active 02/20/2017 [facility] Potassium Chloride Notes: (Juan hui as: K-Dur 20) "Do Not Crush" With food and full glass of water No Longer Active 02/20/2017 [facility] sodium phosphate 30 mmol, 10 m L, Route: IVPB, PRN, Dosing Weight 100.909, kg, PRN Abnormal Lab Result, For NON-ICU Patients Only., Start date: 02/20/17 6:19:00 TRANSFER AND LINE UP WORKER, Duration: 30 day, Stop date: 03/22/17 6:18:00 TRANSFER AND LINE UP WORKER No Longer Active 02/20/2017 [facility] potassium phosphate Notes: (Sa me as: K Phosphate.) 1 mMol phoshate has 1.47 mEq potassium Infuse over 4 hours No Longer Active 02/20/2017 [facility] potassium phosphate-sodium phosphate 250 mg-280 mg-160 mg oral powder for reconstitution Notes: (Same as: Phos-NaK) Each 1.5 gm pkt has 250mg phosphorous. Mix w/2.5oz water and stir. No Longer Active 02/20/2017 [facility] Saline Flush 0.9% Notes: (Same as: BD Posiflush) No Longer Active 02/20/2017 [facility] Ondansetron Notes: (Same as: Neena last) MEDICATION WASTE Product Size: 4 mg Product Wasted: ___ mg No Longer Active 02/20/2017 [facility] Morphine Notes: (Same as:MORPh ine Sulfate) No Longer Active 02/20/2017 [facility] Acetaminophen 325 MG / Hydrocodone Juan trate 7.5 MG Oral Tablet [[place] 7.5/325] Notes: Same as [place] 325-7.5mg Do not exceed 4gm/day of acetaminophen. No Longer Active 02/20/2017 [facility] nter heparin 1000 units/mL injectable solution 2,900 unit = 2.9 mL, IVP, PRN, PRN Heparin Protocol, 0 Refill(s) No Longer Active 02/20/2017 [facility] Glucagon 1 mg, IM, PRN, PRN Bl ood Glucose Results, 0 Refill(s) No Longer Active 02/20/2017 [facility] Furosemide 40 MG Oral Tablet 4 0 mg = 1 tab, PO, BID Diuretic, 0 Refill(s) No Longe r Active 02/20/2017 [facility] sacubitril 24 MG / valsartan 26 MG Oral Tablet [Entresto] 1 tab, PO, Q12H, 0 Refill(s) No Longer Active 02/20/2017 [facility] ondansetron 2 mg/mL injectable solution 4 mg = 2 mL, IVP, Q6H, PRN Nausea, 0 Refill(s) No Longer Active 02/20/2017 [place] Morphine 4 mg = 1 mL, IV, Q4H, PRN Pain Score 6-10, 0 Refill(s) No Longer Active 02/20/2017 [place] Alprazolam 0.25 MG Oral Tablet [Xanax] 0.25 mg = 1 tab, PO, Q12H, PRN Anxiety, 0 Refill(s) No Longer Active 02/20/2017 [place] atorvastatin 40 mg oral tablet 40 mg = 1 tab, PO, Bedtime, 0 Refill(s) No Longer Active 02/20/2017 [place] Aspirin 81 MG Enteric Coated Tablet 81 mg = 1 tab, PO, Daily, 0 Refill(s) Active 02/20/2017 [place] metoprolol tartrate 25 mg oral tablet 12.5 mg = 0.5 tab, PO, Q12H, 0 Refill(s) No Longer Active 02/20/2017 [place] insulin lispro 100 units/mL subcutaneous injection 10 unit, SUB-Q, TID-Before Meals, PRN Blood Glucose Results, 0 Refill(s) No Longer Active 02/20/2017 [place] Acetaminophen 325 MG / Hydrocodone Juan trate 7.5 MG Oral Tablet [[place] 7.5/325] 1 tab, PO, Q4H, PRN Pain Score 4-6, 0 Re fill(s) No Longer Active 02/20/2017 [place] Insulin Glargine 100 UNT/ML Injectable Solution 18 unit, SUB-Q, Daily, 0 Refill(s) No Longer Active 02/20/2017 [place] aspirin 81 mg tablet, enteric coated 81 mg = 1 tab, PO, Daily, 0 Refill(s) On Hold 02/20/2017 [place] Acetaminophen 325 MG / Hydrocodone Juan trate 7.5 MG Oral Tablet [[place] 7.5/325] Notes: Same as [place] 325-7.5mg Do not exceed 4gm/day of acetaminophen. No Longer Active 02/20/2017 [place] Potassium Chloride Notes: (Juan e as: K-Dur 20) "Do Not Crush" With food and full glass of water Inactive 02/19/2017 [place] insulin glargine Notes: (Same as: Lantus) Do not hold insulin without contacting prescriber WASTE: F/P - Black; E - Municipal Trash Bin "single patient use only" Inactive 02/19/2017 [facility] Magnesium Sulfate Notes: WASTE : F/P - Sink; E - Municipal Trash Bin Inactive 02/19/2017 [facility] Morphine Notes: (Same as:MORPh ine Sulfate) No Longer Active 02/18/2017 [facility] Levemir 10 unit, Route: SUB-Q, Daily, Dosing Weight 110.909, kg, Start date: 02/18/17 10:30:00 [employer], Duration: 30 day, Stop date: 03/20/17 9:00:00 [employer] Inactive 02/18/2017 [facility] insulin glargine Notes: (Same as: Lantus) Do not hold insulin without contacting prescriber WASTE: F/P - Black; E - Municipal Trash Bin "single patient use only" No Longer Active 02/18/2017 [facility] sacubitril 24 MG / valsartan 26 MG Oral Tablet [Entresto] Notes: (Same as: Entresto) Avoid in pat ients with history of angioedema due to STEPHEN inhibitor or ARB therapy. Do not use concomitantly or within 36 hours of STEPHEN inhibitors No Longer Active 02/18/2017 [facility] Potassium Chloride 1.33 MEQ/ML Oral Solution Notes: (Same as: Potassium Chloride) Inactive 02/18/2017 [facility] Alprazolam 0.25 MG Oral Tablet [Xanax] Notes: With food or milk (Same as: Xanax) No Longer Active 02/17/2017 [facility] Lasix Notes: (Same as: Lasix) May cause GI upset. Give with food or milk. No Longer Active 02/17/2017 [facility] Heparin 30 unit/kg Bolus (Heparin Dosing Weight) Route: IVP, PRN, 2,900 unit, 2.9 mL, Drug form: INJ, PRN, Heparin Protocol, Start date: 02/16/17 19:13:00 [employer] WORK[employer] Stop date: 03/18/17 19:12:00 [employer] WORK[employer], 30 day No Longer Active 02/17/2017 [facility] Heparin 60 unit/kg Bolus (Heparin Dosing Weight) Route: IVP, PRN, 5,800 unit, 5.8 mL, Drug form: INJ, PRN, Heparin Protocol, Start date: 02/16/17 19:13:00 [employer] WORK[employer] Stop date: 03/18/17 19:12:00 [employer] WORK[employer], 30 day No Longer Active 02/17/2017 [facility] Heparin - one time bolus for ACS 4,000 unit, 4 mL, Route: IVP, Drug form: INJ, ONCE, Dosing Weight 110.909, kg, Priority: STAT, Start date: 02/16/17 19:13:00 TRANSF[employer] AND [employer] WORK[employer], Stop date: 02/16/17 19:13:00 [employer] AND [employer] WORK[employer] Inactive 02/17/2017 [facility] heparin additive 25,000 unit [10.371 uni t/kg/hr] + Premix Diluent Dextrose 5% 500 mL 500 mL, Rate: 20 ml/hr, Infuse over: 25 hr, Route: IV, Dosing Weight 96.44 kg, Total Volume: 500 mL, Start date: 02/16/17 19:13:00 TRAN[employer] AND [employer] WORK[employer], Duration: 30 day, Stop date: 03/18/17 19:12:00 [employer] AND [employer] WORK[employer], 2.28, m2 No Longer Active 02/17/2017 [facility] Ondansetron Notes: (Same as: Neena last) MEDICATION WASTE Product Size: 4 mg Product Wasted: ___ mg No Longer Active 02/16/2017 [facility] Azithromycin Notes: (Same As: Zithromax IV) No Longer Active 02/16/2017 [facility] Rocephin Notes: (Same As: Roce phin). Use with 100 mL NS and infuse over 30 min MEDICATION WASTE Product Size: 1000 mg Product Wasted: ___ mg No Longer Active 02/16/2017 [facility] Aspirin Notes: Do not crush or chew. (Same As: Ecotrin) No Longer Active 02/16/2017 [facility] metoprolol tartrate Notes: (Sa me as: Lopressor) No Longer Active 02/16/2017 [facility] Lipitor Notes: (Same as: Lipit or) No Longer Active 02/16/2017 [facility] Morphine Notes: (Same as:MORPh ine Sulfate) No Longer Active 02/16/2017 [facility] Sodium Chloride 0.9% (Bolus) IV 250 mL, 250 ml/hr, Infuse Over: 1 hr, Route: IV, 250, Drug form: INJ, ONCALL, Priority: Routine, Dosing Weight 97.727 kg, Start date: 02/15/17 18:00:00 [employer] WORK[employer], Duration: 1 doses or times No Longer Active 02/16/2017 [facility] Sodium Chloride 0.9% IV 750 mL 750 mL, Rate: 75 ml/hr, Infuse over: 10 hr, Route: IV, Dosing Weight 97.727 kg, Total Volume: 750, Start date: 02/15/17 17:59:00 TRAN[employer] AND [employer] WORK[employer], Duration: 24 hr, Stop date: 02/16/17 17:58:00 [employer] AND [employer] WORK[employer], 2.29, m2 No Longer Active 02/15/2017 [facility] Insulin Lispro Notes: Roll in palms of hands gently; Do not shake `vigorously. (Same as: Humalog ) "Single Patient Use Only " WASTE: F/P - Black; E - Municipal Trash Bin Stable for 28 days at room temperature. Expires in days from Date No Longer Active 02/15/2017 [facility] Glucagon 1 mg, Route: IM, Drug form: PDR/INJ, PRN, Dosing Weight 97.727, kg, PRN Blood Glucose Results, Start date: 02/15/17 14:49:00 TRAN[employer] AND [employer] WORKER, Duration: 30 day, Stop date: 03/17/17 14:48:00 TRAN[employer] AND [employer] WORKER No Longer Active 02/15/2017 [facility] Dextrose 50% Syringe 25 gm, 50 mL, Route: IVP, Drug Form: INJ, Dosing Weight 97.727, kg, PRN, PRN Blood Glucose Results, Start date: 02/15/17 14:49:00 TRAN[employer]ER AND [employer] WORKER, Duration: 30 day, Stop date: 03/17/17 14:48:00 TRAN[employer]ER AND [employer] WORKER No Longer Active 02/15/2017 [facility] Ceftriaxone Notes: (Same As: Juan C adams). Use with 100 mL NS and infuse over 30 min MEDICATION WASTE Product Size: 1000 mg Product Wasted: ___ mg Inactive 02/15/2017 [facility] Azithromycin Notes: (Same As: Zithromax IV) Inactive 02/15/2017 [facility] Ondansetron 4 mg, Route: IVP, Drug form: INJ, ONCE, Dosing Weight 97.727, kg, Priority: STAT, Start date: 02/15/17 10:58:00 TRAN[employer] AND [employer] WORK[employer], Stop date: 02/15/17 10:58:00 [employer]ER AND [employer] WORKER Inactive 02/15/2017 [facility] Morphine 4 mg, Route: IVP, ONC E, Dosing Weight 97.727, kg, Priority: STAT, Start date: 02/15/17 10:58:00 TRANSFER AND [employer] WORKER, Stop date: 02/15/17 10:58:00 TRANSFER AND [employer] WORKER Inactive 02/15/2017 [facility] Aspirin 325 mg, Route: PO, Christian g form: TAB, ONCE, Dosing Weight 97.727, kg, Priority: STAT, Start date: 02/15/17 9:50:00 TRANSFER AND [employer] WORKER, Stop date: 02/15/17 9:50:00 TRAN[employer]ER AND [employer] WORKER Inactive 02/15/2017 [facility] Allergies, Adverse Reactions, Alerts Substance Category Reaction Severity Reaction type Status Date Reported Comments Source Michael Assertion Drug allergy Active [facility] Immunizations Immunization Date Given Site Status Last Updated Comments Source pneumococcal 23-valent vaccine 02/20/2017 Right deltoid completed [facility] [place] influenza virus vaccine, inactivated 02/20/2017 Left deltoid completed [facility] [place],[facility] Results Order Name Results Value Reference Range Date Interpretation Comments Source CHEM PANEL Magnesium Lvl 1.4 1.8 - 2.4 10/17/2017 [facility] CHEM PANEL eGFR 57 10/17/2017 Result Comment: [...] should be multiplied by the estimated BMI. [place] CHEM PANEL Globulin 3.6 2.7 - 4.2 10/17/2017 [place] CHEM PANEL A/G Ratio 0.9 0.7 - 1.6 10/17/2017 [place] CHEM PANEL ALT 36 0 - 65 10/17/2017 [place] CHEM PANEL B/C Ratio 19 6 - 25 10/17/2017 [place] CHEM PANEL Albumin Lvl 3.3 3.5 - 5.0 10/17/2017 [place] CHEM PANEL Total Protein 6.9 6.4 - 8.4 10/17/2017 [place] CHEM PANEL Alk Phos 60 39 - 136 10/17/2017 [place] CHEM PANEL AST 30 0 - 37 10/17/2017 [place] CHEM PANEL Bili Total 1.5 0.2 - 1.3 10/17/2017 [place] CHEM PANEL Chloride Lvl 102 95 - 109 10/17/2017 [place] CHEM PANEL Glucose Lvl 249 70 - 99 10/17/2017 [place] CHEM PANEL CO2 25 24 - 32 10/17/2017 [place] CHEM PANEL AGAP 12.7 10.0 - 20.0 10/17/2017 [place] CHEM PANEL Calcium Lvl 8.7 8.5 - 10.5 10/17/2017 [place] CHEM PANEL Potassium Lvl 3.7 3.5 - 5.1 10/17/2017 [place] CHEM PANEL BUN 25 7 - 22 10/17/2017 [place] CHEM PANEL Sodium Lvl 136 135 - 145 10/17/2017 [place] CHEM PANEL Creatinine Lvl 1.32 0.50 - 1.40 10/17/2017 [place] CHEM PANEL Phosphorus 1.9 2.5 - 4.5 10/17/2017 [place] HEMATOLOGY MPV 8.5 7.4 - 10.4 10/17/2017 [place] HEMATOLOGY Platelet 180 133 - 450 10/17/2017 [place] HEMATOLOGY RDW 14.0 11.5 - 14.5 10/17/2017 [place] HEMATOLOGY MCHC 34.7 32.0 - 36.0 10/17/2017 [place] HEMATOLOGY MCH 37.9 27.0 - 31.0 10/17/2017 [place] HEMATOLOGY Hgb 13.8 14.0 - 18.0 10/17/2017 [place] HEMATOLOGY RBC 3.64 4.70 - 6.10 10/17/2017 [place] HEMATOLOGY WBC 8.1 3.7 - 10.4 10/17/2017 [place] HEMATOLOGY MCV 109.2 80.0 - 94.0 10/17/2017 [place] HEMATOLOGY Hct 39.7 42.0 - 54.0 10/17/2017 [place] HEMATOLOGY Lymphocytes # 2.1 1.0 - 5.5 10/17/2017 [place] HEMATOLOGY Eosinophils # 0.2 0.0 - 0.5 10/17/2017 [place] HEMATOLOGY Monocytes # 1.0 0.0 - 0.8 10/17/2017 [place] HEMATOLOGY Monocytes 12.7 2.0 - 12.0 10/17/2017 [place] HEMATOLOGY Lymphocytes 25.7 20.0 - 40.0 10/17/2017 [place] HEMATOLOGY Eosinophils 2.5 0.0 - 4.0 10/17/2017 [place] HEMATOLOGY Basophils # 0.1 0.0 - 0.2 10/17/2017 [place] HEMATOLOGY Neutrophils # 4.7 1.5 - 8.1 10/17/2017 [place] HEMATOLOGY Basophils 1.1 0.0 - 1.0 10/17/2017 [place] HEMATOLOGY Segs 58.0 45.0 - 75.0 10/17/2017 [facility] DRUG SCREEN U Amph Scr Posi tive *ABN* (10/16/17 10:41 AM) Negative 10/16/2017 [facility] DRUG SCREEN U Usha Scr Nega tive *NA* (10/16/17 10:41 AM) Negative 10/16/2017 [facility] DRUG SCREEN U Cannab Scr Nega tive *NA* (10/16/17 10:41 AM) Negative 10/16/2017 [place] DRUG SCREEN U Benzodiaz Scr Nega tive *NA* (10/16/17 10:41 AM) Negative 10/16/2017 [place] DRUG SCREEN U Cocaine Scr Nega tive *NA* (10/16/17 10:41 AM) Negative 10/16/2017 [place] DRUG SCREEN UDS Note See Note (10/16/17 10:41 AM) 10/16/2017 [place] DRUG SCREEN U Opiate Scr Posi tive *ABN* (10/16/17 10:41 AM) Negative 10/16/2017 [place] DRUG SCREEN U Phencyclidine Scr Nega tive *NA* (10/16/17 10:41 AM) Negative 10/16/2017 [place] URINE AND STOOL UA WBC <1 0 - 5 10/16/2017 [place] URINE AND STOOL UA RBC <1 0 - 2 10/16/2017 [place] URINE AND STOOL UA Leuk Est Negative (10/16/17 10:41 AM) Negative 10/16/2017 [place] URINE AND STOOL UA Blood Negative (10/16/17 10:41 AM) Negative 10/16/2017 [place] URINE AND STOOL UA Nitrite Negative (10/16/17 10:41 AM) Negative 10/16/2017 [place] URINE AND STOOL UA Ketones 40 mg/dL Negative mg/dL 10/16/2017 [place] URINE AND STOOL UA Bili Negative *NA* (10/16/17 10:41 AM) Negative 10/16/2017 [place] URINE AND STOOL UA Glucose 30 mg/dL Negative mg/dL 10/16/2017 [place] URINE AND STOOL UA Urobilinogen <=1.0 mg/dL 0.1 - 1.0 10/16/2017 [place] URINE AND STOOL UA Sq Epi None Seen 10/16/2017 [place] URINE AND STOOL UA Mucus Few /LPF None Seen /LPF 10/16/2017 [place] URINE AND STOOL UA pH 5.5 5.0 - 8.0 10/16/2017 [place] URINE AND STOOL UA Spec Grav 1.036 <=1.030 10/16/2017 [place] URINE AND STOOL UA Protein 10 mg/dL Negative mg/dL 10/16/2017 [place] URINE AND STOOL UA Color Yellow *NA* (10/16/17 10:41 AM) Yellow 10/16/2017 [place] URINE AND STOOL UA Turbidity Clear (10/16/17 10:41 AM) Clear 10/16/2017 [place] CARDIAC ENZYMES Troponin-I <0.02 0.00 - 0.40 10/16/2017 [facility] ANEMIA STUDY Folate Lvl 9.8 >=3.0 ng/mL 10/16/2017 [facility] ANEMIA STUDY Vitamin B12 Lvl 236 254 - 1320 10/16/2017 [place] CARDIAC ENZYMES Troponin-I <0.02 0.00 - 0.40 10/16/2017 [place] CHEM PANEL Magnesium Lvl 1.4 1.8 - 2.4 10/16/2017 [place] CHEM PANEL Phosphorus 3.4 2.5 - 4.5 10/16/2017 [place] LIPIDS LDL (Calculated) 113 <=99 mg/dL 10/16/2017 [place] LIPIDS VLDL 33 10/16/2017 [place] LIPIDS Trig 164 <=149 mg/dL 10/16/2017 [place] LIPIDS Chol 204 <=199 mg/dL 10/16/2017 [place] LIPIDS HDL 58 >=61 mg/dL 10/16/2017 [place] LIPIDS CHD Risk 3.52 4.00 - 7.30 10/16/2017 [place] SPECIAL CHEMISTRY Hgb A1C 7.8 <=5.6 % 10/16/2017 [place] CARDIAC ENZYMES Troponin-I <0.02 0.00 - 0.40 10/16/2017 [place] CARDIAC ENZYMES Total CK 45 12 - 191 10/16/2017 [place] CHEM PANEL B/C Ratio 16 6 - 25 10/16/2017 [place] CHEM PANEL AGAP 16.1 10.0 - 20.0 10/16/2017 [place] CHEM PANEL A/G Ratio 1.0 0.7 - 1.6 10/16/2017 [place] CHEM PANEL Globulin 3.7 2.7 - 4.2 10/16/2017 [place] CHEM PANEL Bili Total 0.8 0.2 - 1.3 10/16/2017 [place] CHEM PANEL eGFR 49 10/16/2017 Result Comment: [...] should be multiplied by the estimated BMI. [place] CHEM PANEL Alk Phos 59 39 - 136 10/16/2017 [place] CHEM PANEL AST 55 0 - 37 10/16/2017 [place] CHEM PANEL ALT 50 0 - 65 10/16/2017 [place] CHEM PANEL Calcium Lvl 8.8 8.5 - 10.5 10/16/2017 [place] CHEM PANEL CO2 23 24 - 32 10/16/2017 [place] CHEM PANEL Chloride Lvl 104 95 - 109 10/16/2017 [place] CHEM PANEL Potassium Lvl 4.1 3.5 - 5.1 10/16/2017 [place] CHEM PANEL Albumin Lvl 3.8 3.5 - 5.0 10/16/2017 [place] CHEM PANEL Total Protein 7.5 6.4 - 8.4 10/16/2017 [place] CHEM PANEL Glucose Lvl 108 70 - 99 10/16/2017 [place] CHEM PANEL Creatinine Lvl 1.48 0.50 - 1.40 10/16/2017 [place] CHEM PANEL BUN 23 7 - 22 10/16/2017 [place] CHEM PANEL Sodium Lvl 139 135 - 145 10/16/2017 [place] HEMATOLOGY MPV 8.2 7.4 - 10.4 10/16/2017 [facility] HEMATOLOGY Hgb 14.4 14.0 - 18.0 10/16/2017 [place] HEMATOLOGY WBC 8.3 3.7 - 10.4 10/16/2017 [facility] HEMATOLOGY RBC 3.82 4.70 - 6.10 10/16/2017 [facility] HEMATOLOGY Hct 42.2 42.0 - 54.0 10/16/2017 [facility] HEMATOLOGY MCV 110.4 80.0 - 94.0 10/16/2017 [facility] HEMATOLOGY RDW 14.1 11.5 - 14.5 10/16/2017 [facility] HEMATOLOGY Platelet 201 133 - 450 10/16/2017 [facility] HEMATOLOGY MCH 37.8 27.0 - 31.0 10/16/2017 [facility] HEMATOLOGY MCHC 34.2 32.0 - 36.0 10/16/2017 [facility] HEMATOLOGY PT 13.7 12.0 - 14.7 10/16/2017 [facility] HEMATOLOGY INR 1.05 0.85 - 1.17 10/16/2017 [facility] HEMATOLOGY PTT 30.3 22.9 - 35.8 10/16/2017 [facility] HEMATOLOGY Eosinophils # 0.2 0.0 - 0.5 10/16/2017 [facility] HEMATOLOGY Basophils # 0.1 0.0 - 0.2 10/16/2017 [facility] HEMATOLOGY Macrocyte 3+ *NA* (10/16/17 1:00 AM) None Seen 10/16/2017 [facility] HEMATOLOGY Monocytes # 0.9 0.0 - 0.8 10/16/2017 [facility] HEMATOLOGY Segs 52.5 45.0 - 75.0 10/16/2017 [facility] HEMATOLOGY Lymphocytes 33.7 20.0 - 40.0 10/16/2017 [facility] HEMATOLOGY Monocytes 10.3 2.0 - 12.0 10/16/2017 [facility] HEMATOLOGY Lymphocytes # 2.8 1.0 - 5.5 10/16/2017 [facility] HEMATOLOGY Eosinophils 2.2 0.0 - 4.0 10/16/2017 [facility] HEMATOLOGY Basophils 1.3 0.0 - 1.0 10/16/2017 [facility] HEMATOLOGY Neutrophils # 4.3 1.5 - 8.1 10/16/2017 [place] CHEM PANEL eGFR 48 10/16/2017 Result Comment: [...] should be multiplied by the estimated BMI. [place] CHEM PANEL POC Hemoglobin 15.6 14.0 - 18.0 10/16/2017 [place] CHEM PANEL POC Glucose 113 70 - 99 10/16/2017 [place] CHEM PANEL POC Ion Ca 1.00 1.05 - 1.25 10/16/2017 [place] CHEM PANEL POC BUN 24 7 - 22 10/16/2017 [place] CHEM PANEL POC Creatinine 1.5 0.5 - 1.4 10/16/2017 [place] CHEM PANEL POC Potassium 4.3 3.5 - 5.1 10/16/2017 [place] CHEM PANEL POC Chloride 102 95 - 109 10/16/2017 [place] CHEM PANEL POC Sodium 139 135 - 145 10/16/2017 [place] CHEM PANEL POC Carbon Dioxide 21 24 - 32 10/16/2017 [place] CHEM PANEL POC AGAP 20.0 10.0 - 20.0 10/16/2017 [place] CHEM PANEL POC Hematocrit 46.0 42.0 - 54.0 10/16/2017 [place] CARDIAC ENZYMES BNP 976 <=100 pg/mL 06/03/2017 [place] ELECTROLYTES AGAP 12.0 10.0 - 20.0 06/03/2017 [place] ELECTROLYTES eGFR 46 06/03/2017 Result Comment: The [...] should be multiplied by the estimated BMI. [facility] ELECTROLYTES CO2 29 24 - 32 06/03/2017 [facility] ELECTROLYTES Calcium Lvl 9.7 8.5 - 10.5 06/03/2017 [facility] ELECTROLYTES Potassium Lvl 5.0 3.5 - 5.1 06/03/2017 [facility] ELECTROLYTES Sodium Lvl 139 135 - 145 06/03/2017 [facility] ELECTROLYTES BUN 32 7 - 22 06/03/2017 [facility] ELECTROLYTES Creatinine Lvl 1.5 7 0.50 - 1.40 06/03/2017 [facility] ELECTROLYTES Chloride Lvl 103 95 - 109 06/03/2017 [facility] ELECTROLYTES Glucose Lvl 159 70 - 99 06/03/2017 [facility] HEMATOLOGY Eosinophils # 0.3 0.0 - 0.5 06/03/2017 [facility] HEMATOLOGY Basophils # 0.2 0.0 - 0.2 06/03/2017 [facility] HEMATOLOGY Lymphocytes # 2.4 1.0 - 5.5 06/03/2017 [facility] HEMATOLOGY Monocytes # 0.9 0.0 - 0.8 06/03/2017 [facility] HEMATOLOGY Basophils 2.5 0.0 - 1.0 06/03/2017 [facility] HEMATOLOGY Segs-Bands # 2.4 1.5 - 8.1 06/03/2017 [facility] HEMATOLOGY Segs 38.6 45.0 - 75.0 06/03/2017 [facility] HEMATOLOGY Monocytes 14.3 2.0 - 12.0 06/03/2017 [facility] HEMATOLOGY Lymphocytes 39.3 20.0 - 40.0 06/03/2017 [facility] HEMATOLOGY Eosinophils 5.3 0.0 - 4.0 06/03/2017 [facility] HEMATOLOGY MCHC 34.1 32.0 - 36.0 06/03/2017 [facility] HEMATOLOGY RDW 16.4 11.5 - 14.5 06/03/2017 [facility] HEMATOLOGY MPV 9.0 7.4 - 10.4 06/03/2017 [facility] HEMATOLOGY MCH 35.2 27.0 - 31.0 06/03/2017 [facility] HEMATOLOGY Platelet 173 133 - 450 06/03/2017 [facility] HEMATOLOGY WBC 6.2 3.7 - 10.4 06/03/2017 [facility] HEMATOLOGY MCV 103.3 80.0 - 94.0 06/03/2017 [facility] HEMATOLOGY Hct 45.8 42.0 - 54.0 06/03/2017 [facility] HEMATOLOGY Hgb 15.6 14.0 - 18.0 06/03/2017 [facility] HEMATOLOGY RBC 4.43 4.70 - 6.10 06/03/2017 [facility] CARDIAC ENZYMES BNP 1307 <=100 pg/mL 04/05/2017 [facility] CHEM PANEL A/G Ratio 0.9 0.7 - 1.6 04/05/2017 [facility] CHEM PANEL AGAP 11.6 10.0 - 20.0 04/05/2017 [facility] CHEM PANEL B/C Ratio 11 6 - 25 04/05/2017 [facility] CHEM PANEL Globulin 4.3 2.7 - 4.2 04/05/2017 [facility] CHEM PANEL eGFR 57 04/05/2017 Result Comment: [...] should be multiplied by the estimated BMI. [facility] CHEM PANEL Creatinine Lvl 1.32 0.50 - 1.40 04/05/2017 [facility] CHEM PANEL BUN 14 7 - 22 04/05/2017 [place] CHEM PANEL Glucose Lvl 178 70 - 99 04/05/2017 [place] CHEM PANEL Total Protein 8.1 6.4 - 8.4 04/05/2017 [place] CHEM PANEL AST 20 0 - 37 04/05/2017 [place] CHEM PANEL Albumin Lvl 3.8 3.5 - 5.0 04/05/2017 [place] CHEM PANEL Alk Phos 104 39 - 136 04/05/2017 [place] CHEM PANEL ALT 17 0 - 65 04/05/2017 [place] CHEM PANEL Calcium Lvl 9.6 8.5 - 10.5 04/05/2017 [place] CHEM PANEL CO2 28 24 - 32 04/05/2017 [place] CHEM PANEL Potassium Lvl 4.6 3.5 - 5.1 04/05/2017 [place] CHEM PANEL Sodium Lvl 137 135 - 145 04/05/2017 [place] CHEM PANEL Chloride Lvl 102 95 - 109 04/05/2017 [facility] CHEM PANEL Bili Total 0.9 0.2 - 1.3 04/05/2017 [facility] HEMATOLOGY Platelet 204 133 - 450 04/05/2017 [facility] HEMATOLOGY RDW 21.4 11.5 - 14.5 04/05/2017 [facility] HEMATOLOGY MCHC 33.9 32.0 - 36.0 04/05/2017 [facility] HEMATOLOGY MCH 34.4 27.0 - 31.0 04/05/2017 [facility] HEMATOLOGY MCV 101.6 80.0 - 94.0 04/05/2017 [facility] HEMATOLOGY Hct 41.0 42.0 - 54.0 04/05/2017 [facility] HEMATOLOGY WBC 8.0 3.7 - 10.4 04/05/2017 [facility] HEMATOLOGY RBC 4.04 4.70 - 6.10 04/05/2017 [facility] HEMATOLOGY Hgb 13.9 14.0 - 18.0 04/05/2017 [facility] HEMATOLOGY MPV 8.1 7.4 - 10.4 04/05/2017 [facility] HEMATOLOGY Segs-Bands # 4.2 1.5 - 8.1 04/05/2017 [facility] HEMATOLOGY Eosinophils 7.3 0.0 - 4.0 04/05/2017 [facility] HEMATOLOGY Basophils 1.0 0.0 - 1.0 04/05/2017 [facility] HEMATOLOGY Monocytes 16.1 2.0 - 12.0 04/05/2017 [facility] HEMATOLOGY Lymphocytes 22.9 20.0 - 40.0 04/05/2017 [facility] HEMATOLOGY Segs 52.7 45.0 - 75.0 04/05/2017 [facility] HEMATOLOGY Basophils # 0.1 0.0 - 0.2 04/05/2017 [facility] HEMATOLOGY Lymphocytes # 1.8 1.0 - 5.5 04/05/2017 [facility] Monocytes # 1.3 0.0 - 0.8 04/05/2017 [facility] HEMATOLOGY Eosinophils # 0.6 0.0 - 0.5 04/05/2017 [facility] CHEM PANEL eGFR 63 03/07/2017 Result Comment: [...] should be multiplied by the estimated BMI. [facility] CHEM PANEL Bili Total 1.1 0.2 - 1.3 03/07/2017 [facility] CHEM PANEL Alk Phos 79 39 - 136 03/07/2017 [facility] CHEM PANEL AST 30 0 - 37 03/07/2017 [facility] CHEM PANEL Albumin Lvl 2.0 3.5 - 5.0 03/07/2017 [facility] CHEM PANEL Total Protein 6.1 6.4 - 8.4 03/07/2017 [facility] CHEM PANEL Calcium Lvl 8.6 8.5 - 10.5 03/07/2017 [facility] CHEM PANEL CO2 27 24 - 32 03/07/2017 [facility] CHEM PANEL ALT 27 0 - 65 03/07/2017 [facility] CHEM PANEL BUN 13 7 - 22 03/07/2017 [facility] CHEM PANEL Potassium Lvl 4.0 3.5 - 5.1 03/07/2017 [facility] CHEM PANEL Sodium Lvl 134 135 - 145 03/07/2017 [facility] CHEM PANEL Chloride Lvl 100 95 - 109 03/07/2017 [facility] CHEM PANEL Glucose Lvl 193 70 - 99 03/07/2017 [facility] CHEM PANEL Creatinine Lvl 1.21 0.50 - 1.40 03/07/2017 [facility] CHEM PANEL A/G Ratio 0.5 0.7 - 1.6 03/07/2017 [facility] CHEM PANEL Globulin 4.1 2.7 - 4.2 03/07/2017 [facility] CHEM PANEL AGAP 11.0 10.0 - 20.0 03/07/2017 [facility] CHEM PANEL B/C Ratio 11 6 - 25 03/07/2017 [facility] HEMATOLOGY Platelet 376 133 - 450 03/07/2017 [facility] HEMATOLOGY RDW 22.2 11.5 - 14.5 03/07/2017 [facility] HEMATOLOGY MPV 9.1 7.4 - 10.4 03/07/2017 [facility] HEMATOLOGY RBC 3.44 4.70 - 6.10 03/07/2017 [facility] HEMATOLOGY Hgb 10.8 14.0 - 18.0 03/07/2017 [facility] HEMATOLOGY WBC 11.3 3.7 - 10.4 03/07/2017 [facility] HEMATOLOGY MCHC 33.5 32.0 - 36.0 03/07/2017 [facility] HEMATOLOGY Hct 32.3 42.0 - 54.0 03/07/2017 [facility] HEMATOLOGY MCH 31.4 27.0 - 31.0 03/07/2017 [facility] HEMATOLOGY MCV 93.7 80.0 - 94.0 03/07/2017 [facility] HEMATOLOGY Polychrom Moder ate *ABN* (03/07/17 8:45 AM) None Seen 03/07/2017 [facility] HEMATOLOGY Anisocyte 1+ *ABN* (03/07/17 8:45 AM) None Seen 03/07/2017 [facility] HEMATOLOGY Eosinophils 5.4 0.0 - 4.0 03/07/2017 [facility] HEMATOLOGY Segs-Bands # 6.8 1.5 - 8.1 03/07/2017 [facility] HEMATOLOGY Basophils 0.9 0.0 - 1.0 03/07/2017 [facility] HEMATOLOGY Lymphocytes # 1.9 1.0 - 5.5 03/07/2017 [facility] HEMATOLOGY Monocytes # 1.9 0.0 - 0.8 03/07/2017 [facility] HEMATOLOGY Basophils # 0.1 0.0 - 0.2 03/07/2017 [facility] HEMATOLOGY Eosinophils # 0.6 0.0 - 0.5 03/07/2017 [facility] HEMATOLOGY Plt Morph Julia l (03/07/17 8:45 AM) 03/07/2017 [facility] HEMATOLOGY Lymphocytes 16.5 20.0 - 40.0 03/07/2017 [facility] HEMATOLOGY Segs 60.4 45.0 - 75.0 03/07/2017 [facility] HEMATOLOGY Monocytes 16.8 2.0 - 12.0 03/07/2017 [facility] CHEM PANEL Alk Phos 69 39 - 136 03/05/2017 [facility] CHEM PANEL Bili Total 1.0 0.2 - 1.3 03/05/2017 [facility] CHEM PANEL Globulin 3.8 2.7 - 4.2 03/05/2017 [facility] CHEM PANEL Total Protein 6.0 6.4 - 8.4 03/05/2017 [facility] CHEM PANEL AST 28 0 - 37 03/05/2017 [facility] CHEM PANEL A/G Ratio 0.6 0.7 - 1.6 03/05/2017 [facility] CHEM PANEL Albumin Lvl 2.2 3.5 - 5.0 03/05/2017 [facility] CHEM PANEL ALT 30 0 - 65 03/05/2017 [facility] CHEM PANEL eGFR 54 03/05/2017 [...] should be multiplied by the estimated BMI. [facility] CHEM PANEL Creatinine Lvl 1.37 0.50 - 1.40 03/05/2017 [facility] CHEM PANEL Chloride Lvl 99 95 - 109 03/05/2017 [facility] CHEM PANEL Potassium Lvl 4.0 3.5 - 5.1 03/05/2017 [facility] CHEM PANEL Sodium Lvl 132 135 - 145 03/05/2017 [facility] CHEM PANEL B/C Ratio 12 6 - 25 03/05/2017 [facility] CHEM PANEL AGAP 9.0 10.0 - 20.0 03/05/2017 [facility] CHEM PANEL Calcium Lvl 8.2 8.5 - 10.5 03/05/2017 [facility] CHEM PANEL CO2 28 24 - 32 03/05/2017 [facility] CHEM PANEL BUN 16 7 - 22 03/05/2017 [facility] CHEM PANEL Glucose Lvl 223 70 - 99 03/05/2017 [facility] HEMATOLOGY Monocytes # 1.4 0.0 - 0.8 03/05/2017 [facility] HEMATOLOGY Anisocyte 1+ *ABN* (03/05/17 2:37 PM) None Seen 03/05/2017 [facility] HEMATOLOGY Basophils # 0.1 0.0 - 0.2 03/05/2017 [facility] HEMATOLOGY Eosinophils # 0.5 0.0 - 0.5 03/05/2017 [facility] HEMATOLOGY Basophils 0.7 0.0 - 1.0 03/05/2017 [facility] HEMATOLOGY Eosinophils 4.8 0.0 - 4.0 03/05/2017 [facility] HEMATOLOGY Monocytes 12.3 2.0 - 12.0 03/05/2017 [facility] HEMATOLOGY Lymphocytes 18.3 20.0 - 40.0 03/05/2017 [facility] HEMATOLOGY Segs 63.9 45.0 - 75.0 03/05/2017 [facility] HEMATOLOGY Lymphocytes # 2.0 1.0 - 5.5 03/05/2017 [facility] HEMATOLOGY Segs-Bands # 7.1 1.5 - 8.1 03/05/2017 [facility] HEMATOLOGY MPV 9.4 7.4 - 10.4 03/05/2017 [facility] HEMATOLOGY Platelet 326 133 - 450 03/05/2017 [facility] HEMATOLOGY MCHC 33.3 32.0 - 36.0 03/05/2017 [facility] HEMATOLOGY RDW 21.7 11.5 - 14.5 03/05/2017 [facility] HEMATOLOGY MCH 31.0 27.0 - 31.0 03/05/2017 [facility] HEMATOLOGY WBC 11.1 3.7 - 10.4 03/05/2017 [facility] HEMATOLOGY RBC 3.43 4.70 - 6.10 03/05/2017 [facility] HEMATOLOGY Hgb 10.6 14.0 - 18.0 03/05/2017 [facility] HEMATOLOGY Hct 31.9 42.0 - 54.0 03/05/2017 [facility] HEMATOLOGY MCV 93.1 80.0 - 94.0 03/05/2017 [facility] ELECTROLYTES Potassium Lvl 4.5 3.5 - 5.1 03/05/2017 [facility] CHEM PANEL eGFR 62 03/04/2017 [...] should be multiplied by the estimated BMI. [facility] CHEM PANEL Creatinine Lvl 1.23 0.50 - 1.40 03/04/2017 [facility] CHEM PANEL Glucose Lvl 252 70 - 99 03/04/2017 [facility] CHEM PANEL Sodium Lvl 136 135 - 145 03/04/2017 [facility] CHEM PANEL BUN 21 7 - 22 03/04/2017 [facility] CHEM PANEL CO2 30 24 - 32 03/04/2017 [facility] CHEM PANEL Calcium Lvl 8.3 8.5 - 10.5 03/04/2017 [facility] CHEM PANEL Chloride Lvl 101 95 - 109 03/04/2017 [facility] CHEM PANEL AST 29 0 - 37 03/04/2017 [facility] CHEM PANEL Albumin Lvl 2.1 3.5 - 5.0 03/04/2017 [facility] CHEM PANEL Alk Phos 60 39 - 136 03/04/2017 [facility] CHEM PANEL Bili Total 1.3 0.2 - 1.3 03/04/2017 [facility] CHEM PANEL Total Protein 5.8 6.4 - 8.4 03/04/2017 [facility] CHEM PANEL ALT 32 0 - 65 03/04/2017 [facility] CHEM PANEL B/C Ratio 17 6 - 25 03/04/2017 [facility] CHEM PANEL AGAP 8.9 10.0 - 20.0 03/04/2017 [facility] CHEM PANEL Globulin 3.7 2.7 - 4.2 03/04/2017 [facility] CHEM PANEL A/G Ratio 0.6 0.7 - 1.6 03/04/2017 [facility] HEMATOLOGY Lymphocytes 15.8 20.0 - 40.0 03/04/2017 [facility] HEMATOLOGY Segs 62.5 45.0 - 75.0 03/04/2017 [facility] HEMATOLOGY Basophils 0.3 0.0 - 1.0 03/04/2017 [facility] HEMATOLOGY Eosinophils 6.2 0.0 - 4.0 03/04/2017 [facility] HEMATOLOGY Monocytes 15.2 2.0 - 12.0 03/04/2017 [facility] HEMATOLOGY Monocytes # 1.7 0.0 - 0.8 03/04/2017 [facility] HEMATOLOGY Segs-Bands # 6.9 1.5 - 8.1 03/04/2017 [facility] HEMATOLOGY Lymphocytes # 1.8 1.0 - 5.5 03/04/2017 [facility] HEMATOLOGY Eosinophils # 0.7 0.0 - 0.5 03/04/2017 [facility] HEMATOLOGY Anisocyte 1+ *ABN* (03/04/17 10:15 AM) None Seen 03/04/2017 [facility] HEMATOLOGY MPV 9.2 7.4 - 10.4 03/04/2017 [facility] HEMATOLOGY Hgb 10.4 14.0 - 18.0 03/04/2017 [facility] HEMATOLOGY RBC 3.37 4.70 - 6.10 03/04/2017 [facility] HEMATOLOGY WBC 11.1 3.7 - 10.4 03/04/2017 [facility] HEMATOLOGY Platelet 278 133 - 450 03/04/2017 [facility] HEMATOLOGY RDW 21.3 11.5 - 14.5 03/04/2017 [facility] HEMATOLOGY MCHC 33.1 32.0 - 36.0 03/04/2017 [facility] HEMATOLOGY MCH 30.8 27.0 - 31.0 03/04/2017 [facility] HEMATOLOGY MCV 93.1 80.0 - 94.0 03/04/2017 [facility] HEMATOLOGY Hct 31.4 42.0 - 54.0 03/04/2017 [facility] SPECIAL CHEMISTRY Hgb A1C 6.9 <=5.6 % 03/04/2017 [facility] URINE AND STOOL UA Glucose 500mg/dL 03/04/2017 [facility] URINE AND STOOL UA Sq Epi None Seen 03/04/2017 [facility] URINE AND STOOL UA WBC <1 0 - 5 03/04/2017 [facility] URINE AND STOOL UA Blood Negative (03/04/17 2:52 AM) Negative 03/04/2017 [facility] URINE AND STOOL UA Urobilinogen 2.0 0.1 - 1.0 03/04/2017 [facility] URINE AND STOOL UA Nitrite Negative (03/04/17 2:52 AM) Negative 03/04/2017 [facility] URINE AND STOOL UA Leuk Est Negative (03/04/17 2:52 AM) Negative 03/04/2017 [facility] URINE AND STOOL UA Spec Grav 1.009 <=1.030 03/04/2017 [facility] URINE AND STOOL UA pH 7.0 5.0 - 8.0 03/04/2017 [facility] URINE AND STOOL UA Bili Negative *NA* (03/04/17 2:52 AM) Negative 03/04/2017 [facility] URINE AND STOOL UA Protein Negative mg/dL Negative mg/dL 03/04/2017 [facility] URINE AND STOOL UA Ketones Negative mg/dL Negative mg/dL 03/04/2017 [facility] URINE AND STOOL UA Color Yellow *NA* (03/04/17 2:52 AM) Yellow 03/04/2017 [facility] URINE AND STOOL UA Turbidity Clear (03/04/17 2:52 AM) Clear 03/04/2017 [facility] HEMATOLOGY Polychrom Slight 03/03/2017 [facility] HEMATOLOGY Large Plt Moder ate *ABN* (03/03/17 9:17 AM) None Seen 03/03/2017 [facility] HEMATOLOGY Macrocyte 1+ *ABN* (03/03/17 9:17 AM) None Seen 03/03/2017 [facility] HEMATOLOGY Basophils # 0.1 0.0 - 0.2 03/03/2017 [facility] SPECIAL CHEMISTRY Hgb A1C 7.2 <=5.6 % 03/03/2017 [facility] ANEMIA STUDY Folate Lvl 11.0 >=3.0 ng/mL 03/02/2017 [facility] ANEMIA STUDY Vitamin B12 Lvl 464 254 - 1320 03/02/2017 [facility] ANEMIA STUDY UIBC 146 110 - 370 03/02/2017 [facility] ANEMIA STUDY TIBC 187 228 - 428 03/02/2017 [facility] ANEMIA STUDY Iron 41 45 - 160 03/02/2017 [facility] ANEMIA STUDY % Satur Fe 22 12 - 57 03/02/2017 [facility] ANEMIA STUDY Ferritin Lvl 613 22 - 275 03/02/2017 [facility] ANEMIA STUDY RBC Folate 893 280 - 791 03/02/2017 [facility] CHEM PANEL Magnesium Lvl 1.8 1.8 - 2.4 03/02/2017 [facility] CHEM PANEL Phosphorus 2.1 2.5 - 4.5 03/02/2017 [facility] HEMATOLOGY Bands 0.0 0.0 - 11.0 03/02/2017 [facility] HEMATOLOGY Polychrom Slight 03/02/2017 [facility] HEMATOLOGY NRBC 1 03/02/2017 [facility] HEMATOLOGY Plt Morph Julia l (03/02/17 6:19 AM) 03/02/2017 [facility] HEMATOLOGY Myelocytes 2.0 <=0.0 % 03/02/2017 [facility] HEMATOLOGY Atypical Lymphs 0.0 <=0.0 % 03/02/2017 [facility] BLOOD BANK RESULTS Antibody Scrn Negative (03/01/17 3:59 AM) 03/01/2017 [facility] BLOOD BANK RESULTS ABO/Rh B POS 03/01/2017 [facility] CHEM PANEL Magnesium Lvl 1.9 1.8 - 2.4 03/01/2017 [facility] CHEM PANEL Phosphorus 2.6 2.5 - 4.5 03/01/2017 [facility] HEMATOLOGY PT 17.2 12.0 - 14.7 03/01/2017 [facility] HEMATOLOGY INR 1.40 0.85 - 1.17 03/01/2017 [facility] HEMATOLOGY PTT 34.6 22.9 - 35.8 03/01/2017 [facility] PARATHYROID PROFILE Ca Norm WB 1.19 1.05 - 1.25 03/01/2017 [facility] PARATHYROID PROFILE Ca Ion WB 1.20 1.05 - 1.25 03/01/2017 [facility] CHEM PANEL Procalcitonin Lvl 0.24 0.00 - 0.10 02/28/2017 [facility] CHEM PANEL Bili Direct 0.6 0.0 - 0.3 02/28/2017 [facility] CHEM PANEL Phosphorus 2.4 2.5 - 4.5 02/28/2017 [facility] CHEM PANEL Magnesium Lvl 2.0 1.8 - 2.4 02/28/2017 [facility] CHEM PANEL Lactic Acid Lvl 2.2 0.5 - 2.2 02/28/2017 [facility] HEMATOLOGY PT 17.1 12.0 - 14.7 02/28/2017 [facility] HEMATOLOGY D-Dimer 2.42 02/28/2017 [facility] HEMATOLOGY INR 1.39 0.85 - 1.17 02/28/2017 [facility] HEMATOLOGY Thrombin Time 20.7 15.0 - 21.2 02/28/2017 [facility] HEMATOLOGY PTT 33.6 22.9 - 35.8 02/28/2017 [facility] HEMATOLOGY Fibrinogen Lvl 372 230 - 510 02/28/2017 [facility] PARATHYROID PROFILE Ca Norm WB 1.25 1.05 - 1.25 02/28/2017 [facility] PARATHYROID PROFILE Ca Ion WB 1.22 1.05 - 1.25 02/28/2017 [facility] CHEM PANEL Bili Direct 0.2 0.0 - 0.3 02/27/2017 [facility] CHEM PANEL Plasma Hemoglobin <10 0 - 10 02/27/2017 [facility] CHEM PANEL LDH 392 98 - 192 02/27/2017 [facility] CHEM PANEL Lactic Acid Lvl 1.1 0.5 - 2.2 02/27/2017 [facility] HEMATOLOGY Plt Morph Julia l (02/27/17 3:24 AM) 02/27/2017 [facility] HEMATOLOGY Thrombin Time 17.1 15.0 - 21.2 02/27/2017 [facility] HEMATOLOGY PTT 30.8 22.9 - 35.8 02/27/2017 [facility] HEMATOLOGY Fibrinogen Lvl 376 230 - 510 02/27/2017 [facility] HEMATOLOGY D-Dimer 2.28 02/27/2017 [facility] HEMATOLOGY INR 1.36 0.85 - 1.17 02/27/2017 [facility] HEMATOLOGY PT 16.8 12.0 - 14.7 02/27/2017 [facility] PARATHYROID PROFILE Ca Norm WB 1.21 1.05 - 1.25 02/27/2017 [facility] PARATHYROID PROFILE Ca Ion WB 1.23 1.05 - 1.25 02/27/2017 [facility] CHEM PANEL Bili Direct 0.2 0.0 - 0.3 02/26/2017 [facility] CHEM PANEL Plasma Hemoglobin <10 0 - 10 02/26/2017 [facility] CHEM PANEL LDH 333 98 - 192 02/26/2017 [facility] CHEM PANEL Lactic Acid Lvl 1.0 0.5 - 2.2 02/26/2017 [facility] HEMATOLOGY Bands 2.0 0.0 - 11.0 02/26/2017 [facility] HEMATOLOGY Atypical Lymphs 0.0 <=0.0 % 02/26/2017 [facility] HEMATOLOGY D-Dimer 1.29 02/26/2017 [facility] HEMATOLOGY Thrombin Time 17.4 15.0 - 21.2 02/26/2017 [facility] HEMATOLOGY Fibrinogen Lvl 420 230 - 510 02/26/2017 [facility] BLOOD BANK RESULTS Antibody Scrn Negative (02/25/17 2:53 AM) 02/25/2017 [facility] BLOOD BANK RESULTS ABO/Rh B POS 02/25/2017 [facility] CHEM PANEL Bili Indirect 0.6 0.0 - 1.0 02/25/2017 [facility] BLOOD BANK RESULTS RBC product Product available (02/25/17 12:20 AM) 02/25/2017 [facility] BLOOD BANK RESULTS Platelet product Product available (02/25/17 12:20 AM) 02/25/2017 [facility] BLOOD BANK RESULTS FFP product Modification Required (02/25/17 12:20 AM) 02/25/2017 [facility] URINE AND STOOL UA Leuk Est Negative (02/24/17 5:16 PM) Negative 02/24/2017 [facility] URINE AND STOOL UA WBC 2 0 - 5 02/24/2017 [facility] URINE AND STOOL UA RBC 3 0 - 2 02/24/2017 [facility] URINE AND STOOL UA Mucus Few /LPF None Seen /LPF 02/24/2017 [facility] URINE AND STOOL UA Sq Epi None Seen 02/24/2017 [facility] URINE AND STOOL UA Urobilinogen <=1.0 mg/dL 0.1 - 1.0 02/24/2017 [facility] URINE AND STOOL UA Ketones TR 02/24/2017 [facility] URINE AND STOOL UA Nitrite Negative (02/24/17 5:16 PM) Negative 02/24/2017 [facility] URINE AND STOOL UA Glucose 50 mg/dL Negative mg/dL 02/24/2017 [facility] URINE AND STOOL UA Bili Negative *NA* (02/24/17 5:16 PM) Negative 02/24/2017 [facility] URINE AND STOOL UA Blood Negative (02/24/17 5:16 PM) Negative 02/24/2017 [facility] URINE AND STOOL UA Protein 50 mg/dL Negative mg/dL 02/24/2017 [facility] URINE AND STOOL UA Turbidity Clear (02/24/17 5:16 PM) Clear 02/24/2017 [facility] URINE AND STOOL UA Spec Grav 1.017 <=1.030 02/24/2017 [facility] URINE AND STOOL UA Color Yellow *NA* (02/24/17 5:16 PM) Yellow 02/24/2017 [facility] URINE AND STOOL UA pH 8.5 5.0 - 8.0 02/24/2017 [facility] BLOOD BANK RESULTS RBC product Product available (02/24/17 3:46 PM) 02/24/2017 [facility] CHEM PANEL Bili Indirect 0.7 0.0 - 1.0 02/24/2017 [facility] MOLECULAR DIAGNOSTIC Parainfluenza 2 PCR Negative (02/23/17 9:22 PM) Negative 02/24/2017 [facility] MOLECULAR DIAGNOSTIC Parainfluenza 1 PCR Negative (02/23/17 9:22 PM) Negative 02/24/2017 [facility] MOLECULAR DIAGNOSTIC Parainfluenza 3 PCR Negative (02/23/17 9:22 PM) Negative 02/24/2017 [facility] MOLECULAR DIAGNOSTIC Source Parainfl uenza Virus PCR [employer] Swab (02/23/17 9:22 PM) 02/24/2017 [facility] MOLECULAR DIAGNOSTIC Adenovirus PCR Negative (02/23/17 9:22 PM) Negative 02/24/2017 [facility] MOLECULAR DIAGNOSTIC Source Adenovir us PCR [employer] Swab (02/23/17 9:22 PM) 02/24/2017 [facility] MOLECULAR DIAGNOSTIC RSV PCR Negative (02/23/17 9:22 PM) Negative 02/24/2017 [facility] MOLECULAR DIAGNOSTIC Influenza B PCR Negative (02/23/17 9:22 PM) Negative 02/24/2017 [facility] MOLECULAR DIAGNOSTIC Source Respirat ory Panel PCR [employer] Swab (02/23/17 9:22 PM) 02/24/2017 [facility] MOLECULAR DIAGNOSTIC Influenza A PCR Negative (02/23/17 9:22 PM) Negative 02/24/2017 [facility] BLOOD BANK RESULTS FFP product Product available (02/23/17 7:32 PM) 02/24/2017 [facility] BLOOD BANK RESULTS Platelet product Product available (02/23/17 7:32 PM) 02/24/2017 [facility] BLOOD BANK RESULTS FFP product Product available (02/23/17 7:32 PM) 02/24/2017 [facility] BLOOD BANK RESULTS Platelet product Product available (02/23/17 7:32 PM) 02/24/2017 [facility] BLOOD BANK RESULTS RBC product Product available (02/23/17 7:32 PM) 02/24/2017 [facility] HEMATOLOGY LY30 Hep 0.0 0.0 - 7.5 02/23/2017 [facility] HEMATOLOGY TEG Data See N ote (02/23/17 3:15 PM) 02/23/2017 [facility] HEMATOLOGY Coag Index Hep 0.9 -3.0-3.0 - 3.0 02/23/2017 [facility] HEMATOLOGY R-Time Hep 5.7 5.0 - 10.0 02/23/2017 [facility] HEMATOLOGY G-Value Hep 8.9 4.5 - 11.0 02/23/2017 [facility] HEMATOLOGY Max Amp Hep 64.1 50.0 - 70.0 02/23/2017 [facility] HEMATOLOGY Angle Hep 67.5 53.0 - 72.0 02/23/2017 [facility] HEMATOLOGY K-Time Hep 1.6 1.0 - 3.0 02/23/2017 [facility] HEMATOLOGY Macrocyte 1+ *ABN* (02/23/17 3:50 AM) None Seen 02/23/2017 [facility] HEMATOLOGY Plav Effect Plt 160 02/23/2017 [facility] BACTERIAL - SEROLOGY MRSA by PCR Negative (02/22/17 8:26 PM) 02/23/2017 [facility] BLOOD BANK RESULTS Antibody Scrn Negative (02/22/17 8:17 PM) 02/23/2017 [facility] BLOOD BANK RESULTS ABO/Rh B POS 02/23/2017 [facility] HEMATOLOGY Macrocyte 2+ *ABN* (02/22/17 5:21 AM) None Seen 02/22/2017 [facility] CARDIAC ENZYMES BNP 490 <=100 pg/mL 02/20/2017 [facility] HEMATOLOGY Smudge Slight 02/20/2017 [facility] HEMATOLOGY Bands 0.0 0.0 - 11.0 02/20/2017 [facility] HEMATOLOGY Atypical Lymphs 0.0 <=0.0 % 02/20/2017 [facility] HEMATOLOGY Tot Cell Ct 100 02/20/2017 [facility] HEMATOLOGY PTT 55.7 22.9 - 35.8 02/19/2017 [facility] HEMATOLOGY PTT 61.5 22.9 - 35.8 02/19/2017 [facility] HEMATOLOGY INR 1.27 0.85 - 1.17 02/19/2017 [facility] HEMATOLOGY PT 16.0 12.0 - 14.7 02/19/2017 [facility] ELECTROLYTES AGAP 9.5 10.0 - 20.0 02/19/2017 [facility] ELECTROLYTES CO2 32 24 - 32 02/19/2017 [facility] ELECTROLYTES Chloride Lvl 93 95 - 109 02/19/2017 [facility] ELECTROLYTES Calcium Lvl 8.8 8.5 - 10.5 02/19/2017 [facility] ELECTROLYTES eGFR 78 02/19/2017 Result Comment: The [...] should be multiplied by the estimated BMI. [facility] ELECTROLYTES Potassium Lvl 3.5 3.5 - 5.1 02/19/2017 [facility] ELECTROLYTES Sodium Lvl 131 135 - 145 02/19/2017 [facility] ELECTROLYTES Creatinine Lvl 1.0 2 0.50 - 1.40 02/19/2017 [facility] ELECTROLYTES BUN 22 7 - 22 02/19/2017 [facility] ELECTROLYTES Glucose Lvl 281 70 - 99 02/19/2017 [facility] HEMATOLOGY MPV 9.4 7.4 - 10.4 02/19/2017 [facility] HEMATOLOGY RBC 4.16 4.70 - 6.10 02/19/2017 [facility] HEMATOLOGY WBC 7.6 3.7 - 10.4 02/19/2017 [facility] HEMATOLOGY Platelet 167 133 - 450 02/19/2017 [facility] HEMATOLOGY RDW 13.0 11.5 - 14.5 02/19/2017 [facility] HEMATOLOGY MCH 36.6 27.0 - 31.0 02/19/2017 [facility] HEMATOLOGY MCHC 35.0 32.0 - 36.0 02/19/2017 [facility] HEMATOLOGY MCV 104.5 80.0 - 94.0 02/19/2017 [facility] HEMATOLOGY Hct 43.5 42.0 - 54.0 02/19/2017 [facility] HEMATOLOGY Hgb 15.2 14.0 - 18.0 02/19/2017 [facility] CHEM PANEL Magnesium Lvl 1.5 1.8 - 2.4 02/19/2017 [facility] HEMATOLOGY PT 15.4 12.0 - 14.7 02/19/2017 [facility] HEMATOLOGY INR 1.21 0.85 - 1.17 02/19/2017 [facility] HEMATOLOGY PTT 46.1 22.9 - 35.8 02/19/2017 [facility] CARDIAC ENZYMES BNP 648 <=100 pg/mL 02/18/2017 [facility] CHEM PANEL eGFR 76 02/18/2017 Result Comment: [...] should be multiplied by the estimated BMI. [facility] CHEM PANEL Bili Total 1.2 0.2 - 1.3 02/18/2017 [facility] CHEM PANEL Total Protein 6.7 6.4 - 8.4 02/18/2017 [facility] CHEM PANEL Albumin Lvl 2.9 3.5 - 5.0 02/18/2017 [place] CHEM PANEL Potassium Lvl 3.7 3.5 - 5.1 02/18/2017 [place] CHEM PANEL Chloride Lvl 94 95 - 109 02/18/2017 [place] CHEM PANEL Calcium Lvl 9.4 8.5 - 10.5 02/18/2017 [place] CHEM PANEL Sodium Lvl 133 135 - 145 02/18/2017 [place] CHEM PANEL CO2 30 24 - 32 02/18/2017 [place] CHEM PANEL Creatinine Lvl 1.04 0.50 - 1.40 02/18/2017 [place] CHEM PANEL Glucose Lvl 196 70 - 99 02/18/2017 [place] CHEM PANEL BUN 26 7 - 22 02/18/2017 [place] CHEM PANEL AST 44 0 - 37 02/18/2017 [place] CHEM PANEL ALT 66 0 - 65 02/18/2017 [place] CHEM PANEL Alk Phos 53 39 - 136 02/18/2017 [place] CHEM PANEL B/C Ratio 25 6 - 25 02/18/2017 [place] CHEM PANEL Globulin 3.8 2.7 - 4.2 02/18/2017 [place] CHEM PANEL AGAP 12.7 10.0 - 20.0 02/18/2017 [place] CHEM PANEL A/G Ratio 0.8 0.7 - 1.6 02/18/2017 [facility] HEMATOLOGY Platelet 154 133 - 450 02/18/2017 [facility] HEMATOLOGY MPV 9.2 7.4 - 10.4 02/18/2017 [facility] HEMATOLOGY Hgb 16.3 14.0 - 18.0 02/18/2017 [facility] HEMATOLOGY MCHC 34.8 32.0 - 36.0 02/18/2017 [facility] HEMATOLOGY RDW 13.2 11.5 - 14.5 02/18/2017 [facility] HEMATOLOGY MCV 105.9 80.0 - 94.0 02/18/2017 [facility] HEMATOLOGY MCH 36.9 27.0 - 31.0 02/18/2017 [facility] HEMATOLOGY Hct 46.9 42.0 - 54.0 02/18/2017 [facility] HEMATOLOGY RBC 4.43 4.70 - 6.10 02/18/2017 [facility] HEMATOLOGY WBC 9.6 3.7 - 10.4 02/18/2017 [facility] HEMATOLOGY Lymphocytes # 3.4 1.0 - 5.5 02/18/2017 [place] HEMATOLOGY Monocytes # 1.6 0.0 - 0.8 02/18/2017 [facility] HEMATOLOGY Basophils # 0.1 0.0 - 0.2 02/18/2017 [facility] HEMATOLOGY Eosinophils # 0.2 0.0 - 0.5 02/18/2017 [place] HEMATOLOGY Segs 45.0 45.0 - 75.0 02/18/2017 [facility] HEMATOLOGY Segs-Bands # 4.3 1.5 - 8.1 02/18/2017 [facility] HEMATOLOGY Macrocyte 1+ *ABN* (02/18/17 7:25 AM) None Seen 02/18/2017 [facility] HEMATOLOGY Monocytes 17.0 2.0 - 12.0 02/18/2017 [facility] HEMATOLOGY Basophils 0.7 0.0 - 1.0 02/18/2017 [facility] HEMATOLOGY Lymphocytes 35.1 20.0 - 40.0 02/18/2017 [facility] HEMATOLOGY Eosinophils 2.2 0.0 - 4.0 02/18/2017 [facility] HEMATOLOGY MPV 9.2 7.4 - 10.4 02/17/2017 [facility] HEMATOLOGY RDW 13.5 11.5 - 14.5 02/17/2017 [facility] HEMATOLOGY Platelet 181 133 - 450 02/17/2017 [facility] HEMATOLOGY MCH 36.3 27.0 - 31.0 02/17/2017 [facility] HEMATOLOGY MCHC 34.2 32.0 - 36.0 02/17/2017 [facility] HEMATOLOGY WBC 8.0 3.7 - 10.4 02/17/2017 [facility] HEMATOLOGY Hgb 16.4 14.0 - 18.0 02/17/2017 [facility] HEMATOLOGY Hct 47.9 42.0 - 54.0 02/17/2017 [facility] HEMATOLOGY MCV 106.3 80.0 - 94.0 02/17/2017 [facility] HEMATOLOGY RBC 4.50 4.70 - 6.10 02/17/2017 [facility] HEMATOLOGY Lymphocytes 30.1 20.0 - 40.0 02/17/2017 [place] HEMATOLOGY Segs 53.0 45.0 - 75.0 02/17/2017 [place] HEMATOLOGY Plt Morph Julia l (02/17/17 5:44 AM) 02/17/2017 [place] HEMATOLOGY RBC Morph Julia l (02/17/17 5:44 AM) 02/17/2017 [place] HEMATOLOGY Basophils # 0.1 0.0 - 0.2 02/17/2017 [place] HEMATOLOGY Monocytes # 1.1 0.0 - 0.8 02/17/2017 [place] HEMATOLOGY Lymphocytes # 2.4 1.0 - 5.5 02/17/2017 [place] HEMATOLOGY Eosinophils # 0.2 0.0 - 0.5 02/17/2017 [place] HEMATOLOGY Segs-Bands # 4.2 1.5 - 8.1 02/17/2017 [place] HEMATOLOGY Basophils 1.0 0.0 - 1.0 02/17/2017 [place] HEMATOLOGY Eosinophils 2.1 0.0 - 4.0 02/17/2017 [place] HEMATOLOGY Monocytes 13.8 2.0 - 12.0 02/17/2017 [place] HEMATOLOGY Monocytes 12.5 2.0 - 12.0 02/17/2017 [place] HEMATOLOGY Lymphocytes 18.7 20.0 - 40.0 02/17/2017 [place] HEMATOLOGY Segs 66.7 45.0 - 75.0 02/17/2017 [place] HEMATOLOGY Segs-Bands # 5.2 1.5 - 8.1 02/17/2017 [place] HEMATOLOGY Lymphocytes # 1.5 1.0 - 5.5 02/17/2017 [place] HEMATOLOGY Eosinophils 1.4 0.0 - 4.0 02/17/2017 [place] HEMATOLOGY Basophils 0.7 0.0 - 1.0 02/17/2017 [place] HEMATOLOGY Basophils # 0.1 0.0 - 0.2 02/17/2017 [place] HEMATOLOGY Eosinophils # 0.1 0.0 - 0.5 02/17/2017 [place] HEMATOLOGY Monocytes # 1.0 0.0 - 0.8 02/17/2017 [place] HEMATOLOGY PT 14.1 12.0 - 14.7 02/17/2017 [place] HEMATOLOGY INR 1.09 0.85 - 1.17 02/17/2017 [facility] CARDIAC ENZYMES BNP 688 <=100 pg/mL 02/16/2017 [place] CHEM PANEL eGFR 66 02/16/2017 Result Comment: [...] should be multiplied by the estimated BMI. [place] CHEM PANEL Potassium Lvl 4.3 3.5 - 5.1 02/16/2017 [place] CHEM PANEL Sodium Lvl 133 135 - 145 02/16/2017 [place] CHEM PANEL Chloride Lvl 98 95 - 109 02/16/2017 [place] CHEM PANEL Glucose Lvl 364 70 - 99 02/16/2017 [place] CHEM PANEL BUN 24 7 - 22 02/16/2017 [facility] CHEM PANEL Creatinine Lvl 1.17 0.50 - 1.40 02/16/2017 [place] CHEM PANEL Calcium Lvl 9.4 8.5 - 10.5 02/16/2017 [place] CHEM PANEL CO2 25 24 - 32 02/16/2017 [facility] CHEM PANEL AGAP 14.3 10.0 - 20.0 02/16/2017 [facility] URINE AND STOOL UA Urobilinogen <=1.0 mg/dL 0.1 - 1.0 02/15/2017 [facility] URINE AND STOOL UA Sq Epi None Seen 02/15/2017 [facility] URINE AND STOOL UA Mucus Few /LPF None Seen /LPF 02/15/2017 [facility] URINE AND STOOL UA Sperm Few /HPF None Seen /HPF 02/15/2017 [facility] URINE AND STOOL UA Leuk Est Negative (02/15/17 11:19 AM) Negative 02/15/2017 [place] URINE AND STOOL UA WBC <1 0 - 5 02/15/2017 [place] URINE AND STOOL UA RBC 2 0 - 2 02/15/2017 [place] URINE AND STOOL UA Nitrite Negative (02/15/17 11:19 AM) Negative 02/15/2017 [place] URINE AND STOOL UA Bili Negative *NA* (02/15/17 11:19 AM) Negative 02/15/2017 [place] URINE AND STOOL UA Blood Negative (02/15/17 11:19 AM) Negative 02/15/2017 [place] URINE AND STOOL UA Glucose >=1000 mg/dL Negative mg/dL 02/15/2017 [facility] URINE AND STOOL UA Ketones 40 mg/dL Negative mg/dL 02/15/2017 [place] URINE AND STOOL UA Spec Grav 1.027 <=1.030 02/15/2017 [place] URINE AND STOOL UA pH 5.5 5.0 - 8.0 02/15/2017 [place] URINE AND STOOL UA Protein Negative mg/dL Negative mg/dL 02/15/2017 [facility] URINE AND STOOL UA Color Yellow *NA* (02/15/17 11:19 AM) Yellow 02/15/2017 [place] URINE AND STOOL UA Turbidity Clear (02/15/17 11:19 AM) Clear 02/15/2017 [place] CARDIAC ENZYMES Troponin-I 0.02 0.00 - 0.40 02/15/2017 [place] CARDIAC ENZYMES CK MB 3.7 0.5 - 3.6 02/15/2017 [place] CARDIAC ENZYMES Total CK 104 12 - 191 02/15/2017 [place] CARDIAC ENZYMES CK MB Index 3.6 0.0 - 2.5 02/15/2017 [place] CHEM PANEL Lactic Acid Lvl 1.9 0.5 - 2.2 02/15/2017 [place] CHEM PANEL A/G Ratio 0.8 0.7 - 1.6 02/15/2017 [place] CHEM PANEL Total Protein 7.6 6.4 - 8.4 02/15/2017 [place] CHEM PANEL Albumin Lvl 3.4 3.5 - 5.0 02/15/2017 [place] CHEM PANEL Alk Phos 71 39 - 136 02/15/2017 [facility] CHEM PANEL Bili Total 1.4 0.2 - 1.3 02/15/2017 [facility] CHEM PANEL B/C Ratio 21 6 - 25 02/15/2017 [facility] CHEM PANEL Globulin 4.2 2.7 - 4.2 02/15/2017 [facility] CHEM PANEL ALT 58 0 - 65 02/15/2017 [place] CHEM PANEL AST 37 0 - 37 02/15/2017 [facility] Pathology Reports No Data Provided for This [...] posterior fossa arachnoid cyst. SL: [id number] 10/16/2017 [facility] Chest 1view DX EXAM: [...] No acute cardiopulmonary abnormality. SL: KATHARINE-Bertrand 10/16/2017 [facility] Brain wo contrast CT Clinical Indication: Weakness. [...] to patient size -Use of iterative reconstruction [employer] ue CT Radiation Dose DLP 807 mGy-cm [...] chronic microvascular ischemic changes. SL: JANE 10/16/2017 [facility] Brain/Neck CTA Clinical Indica tion: Vertigo. Comparison: [...] to patient size -Use of iterative reconstruction [employer] ue CT Radiation Dose DLP 414 mGy-cm [...] carotid or vertebrobasilar circulations. SL: KPATEL-M 10/16/2017 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 2. No acute osseous abnormality. SL: [id number] 04/24/2017 [facility] [place] Tibia fibula series DX Examina tion: Left [...] tibia or fibula is identified. 04/13/2017 [facility] [place] Ext Artery Single Level Bilat US Clinical Indication: - I70.213 Atherosclerosis of [place] arteries of extremities with intermittent claudication, bilateral [...] EXTREMITY: Left ankle-brachial index deferred by the supervisor orchard due to the presence of superficial venous [...] confirmation at the time of dictation. SL: [id number] 04/13/2017 [facility] [place] Ext Lower Arterial Doppler bilat US Clinical Indication: - I70.213 Atherosclerosis of [place] arteries of extremities with intermittent claudication, bilateral [...] EXTREMITY: Left ankle-brachial index deferred by the supervisor orchard due to the presence of superficial venous [...] confirmation at the time of dictation. SL: [id number] 04/13/2017 [facility] [place] Chest 1view DX EXAM: XR CHEST 1 VIEW DATE: 03/04/2017 9:05 AM TRANSFER AND LINE UP WORKER INDICATION: - dyspnea COMPARISON: 03/03/2017 TECHNIQUE: AP [...] pneumonia. 2. Trace bilateral pleural effusions. 03/04/2017 [facility] Chest 1view DX EXAM: XR CHEST 1 VIEW DATE: 03/03/2017 3:00 AM TRANSFER AND LINE UP WORKER INDICATION: Shortness of Breath - SOB. FINDINGS: Comparison is made to yesterday. The cardiomediastinal silhouette and postoperative changes are stable. A patchy left retrocardiac opacity could be due to atelectasis and/or pneumonia. There is mild right perihilar subsegmental atelectasis. No pleural effusions are identified. Impression: No significant change. 03/03/2017 [facility] Chest 1view DX EXAM: XR [...] compared to the radiograph of 03/01/2017. 03/02/2017 [facility] Chest 1view DX EXAM: XR CHEST 1 VIEW DATE: 03/01/2017 3:00 AM TRANSFER AND LINE UP WORKER INDICATION: Shortness of Breath - SOB COMPARISON: 02/28/2017 TECHNIQUE: AP chest FINDINGS: Lines, tubes and hardware: Interval removal of the right IJ [place] catheter seen with its sheath remaining in [...] hange compared to the prior study. 03/01/2017 [facility] Chest 1view DX EXAM: XR CHEST 1 VIEW DATE: 02/28/2017 INDICATION: Tube placement/removal/reposition - POST OP . Comparison is made with yesterday FINDINGS: Cardiomediastinal silhouette, postoperative changes and [place]-Oleg catheter are unchanged. Bilateral pleural effusions are [...] clear IMPRESSION: Increasing left retrocardiac opacity. 02/28/2017 [facility] Chest 1view DX EXAM: XR CHEST 1 VIEW DATE: 02/27/2017 at 1245 hours INDICATION: - chest tube removal . Comparison is made with radiograph 9 hours earlier today FINDINGS: The mediastinal drain and a left-sided chest tube have been removed. Cardiomediastinal silhouette, sternotomy wires and [place]leg catheter are unchanged. No pneumothorax is visualized [...] in order to exclude small pneumothoraces.. 02/27/2017 [facility] Chest 1view DX EXAM: XR [...] change when compared to prior radiograph. 02/27/2017 [facility] Chest 1view DX EXAM: XR CHEST 1 VIEW DATE: 02/26/2017 6:19 PM TRANSFER AND LINE UP WORKER INDICATION: - postion of mediastinal chest tube COMPARISON: 02/26/2017 chest radiograph at 1039 hours TECHNIQUE: AP chest FINDINGS: Lines, tubes and hardware: Interval removal of the right-sided chest tube. The [place]-Oleg catheter, mediastinal tube, left chest tube, and median sternotomy wires are unchanged. Lungs and pleura: No definite pneumothorax is identified. Mild bibasilar hazy opacities, more prominent on the left. Heart and mediastinum: The cardiomediastinal silhouette is stable. IMPRESSION: 1. Interval removal of a right-sided ch est tube. 2. No radiographically evident pneumoth orax is identified. [place] SECTION: Chest 02/26/2017 [facility] Chest 1view DX EXAM: XR CHEST 1 VIEW DATE: 02/26/2017 10:21 AM TRANSFER AND LINE UP WORKER INDICATION: - s/p chest tube removal COMPARISON: [...] elissa red to the prior study. 02/26/2017 [facility] Chest 1view DX EXAM: XR CHEST 1 VIEW DATE: 02/26/2017 7:56 AM TRANSFER AND LINE UP WORKER INDICATION: - pulled chest tube COMPARISON: Semierect [...] mediastinal drains. Remaining findings are unchanged. 02/26/2017 [facility] Chest 1view DX EXAM: XR CHEST 1 VIEW DATE: 02/26/2017 3:00 AM TRANSFER AND LINE UP WORKER INDICATION: Tube placement/removal/reposition - POST OP COMPARISON: [...] and tubes grossly stable in position. 02/26/2017 [facility] Abdomen AP DX EXAM: XR [...] wires. * EKG leads. * Partially visualized [place]-Oleg catheter. Other: No other changes. IMPRESSION: 1. Tube positions as above. 02/25/2017 [facility] Chest 2 views DX EXAM: XR CHES T 1 VIEW DATE: 02/25/2017 4:49 PM TRANSFER AND LINE UP WORKER INDICATION: protocol closure - protocol closure COMPARISON: 02/25/2017 TECHNIQUE: AP chest FINDINGS/ IMPRESSION: Compared to the prior examination there is redemonstration of life support lines including a [place]leg catheter with tip in the main pulmonary [...] tubes. There is no pneumothorax seen. 02/25/2017 [facility] Chest 1 v for Placement [...] IABP. Otherwise, no significant interval change. 02/25/2017 [facility] Chest 1 v for Placement [...] shows it has since been advanced. 02/25/2017 [facility] Chest 1view DX EXAM: XR CHEST 1 VIEW DATE: 02/25/2017 10:06 AM TRANSFER AND LINE UP WORKER INDICATION: - preop COMPARISON: 02/24/2017 TECHNIQUE: AP chest FINDINGS: Lines, tubes and hardware: Slight interval retraction of the right IJ [place] catheter seen with its tip in the [...] interval retraction of the ri ght IJ [place]-Oleg catheter with its tip projecting over the right main coronary artery. 3. Mild bibasilar atelectasis. 02/25/2017 [facility] Chest 1view DX EXAM: XR [...] change when compared to prior radiograph. 02/24/2017 [facility] Chest 1view DX EXAM: XR CHEST 1 VIEW DATE: 02/23/2017 6:24 PM TRANSFER AND LINE UP WORKER INDICATION: - Post op COMPARISON: 02/23/2017 at 1725 hours TECHNIQUE: AP chest IMPRESSION: 1. Lines and tubes are stable compared to previous study. 2. Cardiomediastinal silhouette is enla rged, unchanged. 3. Diminished lung volumes bilaterally with bibasilar subsegmental platelike atelectatic changes and prominent lung vasculature. 4. Small amount of left pleural effusio n is noted. 5. Osseous structures are stable. 02/23/2017 [facility] Chest 2 views DX EXAM: XR CHES T 2 views DATE: 02/23/2017 5:20 PM TRANSFER AND LINE UP WORKER INDICATION: INCORRECT INSTRUMENT COUNT/TOO MANY INSTRUMENTS/EXTRA SCISSORS AND CHEST TUBE PASSER - INCORRECT INSTRUMENT COUNT/TOO MANY INSTRUMENTS/EXTRA SCISSORS AND CHEST TUBE PASSER COMPARISON: 02/22/2017 TECHNIQUE: AP and Lateral chest radiographs IMPRESSION: 1. Post sternotomy surgical changes wit h interval placement of endotracheal tube with the tip terminates 4.3 cm above the charo. Interval placement of right IJV [place] catheter with tip projects over the main [...] left pleural effusio n is noted. 02/23/2017 [facility] Chest 1view DX EXAM: XR CHEST 1 VIEW DATE: 02/22/2017 1:31 PM TRANSFER AND LINE UP WORKER INDICATION: - cough. FINDINGS: Comparison is made [...] bilateral pleural effusions hav e decreased. 02/22/2017 [facility] Cardiac Function Complete MRI EXAM: MR HEART WITHOUT AND WITH CONTRAST DATE: 02/20/2017 1:58 PM TRANSFER AND LINE UP WORKER INDICATION: NSTEMI, Coronary artery disease. ADDITIONAL INFORMATION: [...] imaging sequences. Alex Broussard, et. al. 02/21/2017 [facility] Chest 1view DX EXAM: XR CHEST 1 VIEW DATE: 02/20/2017 6:19 AM TRANSFER AND LINE UP WORKER INDICATION: Heart failure - CAP COMPARISON: 02/18/2017 TECHNIQUE: AP chest IMPRESSION: 1. Cardiomediastinal silhouette is uppe r limit of normal size. 2. Bilateral [id number] pleural effusions with bibasilar subsegmental atelectatic changes. 3. Osseous structures are stable. 02/20/2017 [facility] Chest 2 views DX Patient Name: ANKUR WISE : 1955; Age: 61 years y/o Male MR: [id number] Study: CHEST 2 VIEWS DX 02/18/2017 1:04 PM TRANSFER AND LINE UP WORKER Ordering Physician: Perry Read MD Clinical Indication: [...] Upper lungs are clear. SL: [id number] 02/18/2017 [facility] Carotid artery Doppler bilat US Clinical Indication: [...] low, or Variable undetectable SL: [id number] 02/18/2017 [facility] Chest 1view DX Clinical Indica tion: chest [...] pneumonia and small bilateral pleural effusions. SL: [id number] 02/15/2017 [facility] Consultation Notes No Data Provided for This Section Discharge Summaries No Data Provided for This Section History and Physicals No Data Provided for This Section Vital Signs Vital Sign Value Date Comments Source Respitory Rate 15 10/17/2017 [place] Systolic (mm Hg) 124 10/17/2017 [facility] [place] Diastolic (mm Hg) 86 10/17/2017 [place] Heart Rate 102 10/17/2017 [place] Temperature Oral (F) 97.7 F 10/17/2017 [place] Systolic (mm Hg) 125 10/17/2017 [place] Diastolic (mm Hg) 79 10/17/2017 [place] Heart Rate 92 10/17/2017 [place] Respitory Rate 15 10/17/2017 [place] Temperature Oral (F) 99 F 10/17/2017 [place] Temperature Oral (F) 98.7 F 10/17/2017 [place] Heart Rate 91 10/17/2017 [place] Respitory Rate 18 10/17/2017 [place] Systolic (mm Hg) 127 10/17/2017 [place] Diastolic (mm Hg) 79 10/17/2017 [place] Weight 100.909 10/16/2017 [place] Height 193.04 cm 10/16/2017 [place] BMI Calculated 27.08 10/16/2017 [place] Weight 113.636 10/16/2017 [place] BMI Calculated 33.05 10/16/2017 [place] Height 185.42 cm 10/16/2017 [place] BMI Calculated 30.98 08/31/2017 [facility] Weight 115.455 08/31/2017 [facility] Height 193.04 cm 08/31/2017 [facility] Height 193.04 cm 08/19/2017 [facility] Weight 100 08/19/2017 [facility] BMI Calculated 26.84 08/19/2017 [facility] Respitory Rate 18 08/19/2017 [facility] Heart Rate 94 08/19/2017 [facility] Systolic (mm Hg) 82 08/19/2017 [facility] Diastolic (mm Hg) 60 08/19/2017 [facility] BMI Calculated 26.47 06/03/2017 [facility] Height 193.04 cm 06/03/2017 [facility] Weight 98.636 06/03/2017 [facility] Systolic (mm Hg) 131 06/03/2017 [facility] Diastolic (mm Hg) 84 06/03/2017 [facility] Heart Rate 89 06/03/2017 [facility] Respitory Rate 18 06/03/2017 [facility] Height 193.04 cm 06/03/2017 [facility] BMI Calculated 26.47 06/03/2017 [facility] Weight 98.636 06/03/2017 [facility] Weight 99.545 05/20/2017 [facility] BMI Calculated 26.71 05/20/2017 [facility] Height 193.04 cm 05/20/2017 [facility] Systolic (mm Hg) 140 05/20/2017 [facility] Diastolic (mm Hg) 88 05/20/2017 [facility] Respitory Rate 18 05/20/2017 [facility] Heart Rate 72 05/20/2017 [facility] BMI Calculated 25.86 04/13/2017 [facility] Systolic (mm Hg) 108 04/13/2017 [facility] Diastolic (mm Hg) 70 04/13/2017 [facility] Heart Rate 84 04/13/2017 [facility] Temperature Oral (F) 96.4 F 04/13/2017 [facility] Respitory Rate 18 04/13/2017 [facility] Weight 96.364 04/13/2017 [facility] Height 193.04 cm 04/13/2017 [facility] Height 193.04 cm 04/05/2017 [facility] Heart Rate 80 04/05/2017 [facility] Temperature Oral (F) 96.8 F 04/05/2017 [facility] Respitory Rate 20 04/05/2017 [facility] Systolic (mm Hg) 158 04/05/2017 [facility] Diastolic (mm Hg) 90 04/05/2017 [facility] Temperature Oral (F) 97.0 F 03/17/2017 [facility] Heart Rate 101 03/17/2017 [facility] Systolic (mm Hg) 126 03/17/2017 [facility] Diastolic (mm Hg) 80 03/17/2017 [facility] BMI Calculated 25.49 03/17/2017 [facility] Weight 95 0 03/17/2017 [facility] Height 193.04 cm 03/17/2017 [facility] Temperature Oral (F) 97.0 F 03/17/2017 [facility] Systolic (mm Hg) 126 03/17/2017 [facility] Diastolic (mm Hg) 80 03/17/2017 [facility] Respitory Rate 20 03/17/2017 [facility] Heart Rate 101 03/17/2017 [facility] Systolic (mm Hg) 134 03/07/2017 [facility] Diastolic (mm Hg) 89 03/07/2017 [facility] Respitory Rate 18 03/07/2017 [facility] Respitory Rate 19 03/07/2017 [facility] Systolic (mm Hg) 137 03/07/2017 [facility] Diastolic (mm Hg) 76 03/07/2017 [facility] Systolic (mm Hg) 114 03/07/2017 [facility] Diastolic (mm Hg) 72 03/07/2017 [facility] Temperature Oral (F) 98 F 03/07/2017 [facility] Respitory Rate 17 03/07/2017 [facility] Temperature Oral (F) 97.6 F 03/07/2017 [facility] Temperature Oral (F) 96.8 F 03/07/2017 [facility] Height 193.04 cm 02/26/2017 [facility] Height 193.04 cm 02/26/2017 [facility] Height 193.04 cm 02/26/2017 [facility] Heart Rate 73 02/23/2017 [facility] Heart Rate 66 02/23/2017 [facility] Heart Rate 73 02/23/2017 [facility] Weight 100.909 02/20/2017 [facility] BMI Calculated 27.08 02/20/2017 [facility] Temperature Oral (F) 98 F 02/20/2017 [place] Heart Rate 73 02/20/2017 [place] Systolic (mm Hg) 101 02/20/2017 [place] Diastolic (mm Hg) 66 02/20/2017 [place] Respitory Rate 18 02/20/2017 [place] Systolic (mm Hg) 101 02/20/2017 [place] Diastolic (mm Hg) 67 02/20/2017 [place] Respitory Rate 18 02/20/2017 [place] Temperature Oral (F) 97.7 F 02/20/2017 [place] Heart Rate 75 02/20/2017 [place] Heart Rate 77 02/19/2017 [place] Respitory Rate 18 02/19/2017 [place] Systolic (mm Hg) 101 02/19/2017 [place] Diastolic (mm Hg) 67 02/19/2017 [place] Temperature Oral (F) 97.6 F 02/19/2017 [place] Weight 102.5 02/19/2017 [place] Height 193.04 cm 02/16/2017 [place] BMI Calculated 29.76 02/16/2017 [place] Weight 110.909 02/16/2017 [place] Weight 97.727 02/15/2017 [place] Height 193.04 cm 02/15/2017 [place] BMI Calculated 26.23 02/15/2017 [place] Encounters Location Location Details Encounter Type Encounter Number Reason For Visit Attending Provider ADM Date DC Date Status Source [facility] Inpatient [id number] Perry Read 02/15/2017 02/19/2017 [facility] Inpatient [id number] Adam Roseanne 02/20/2017 03/07/[address] [facility] Outpatient [id number] Mauricio Puentes 03/17/2017 03/18/[address] [facility] Outpatient [id number] Nicky Marte 03/25/2017 03/25/2017 [facility] [place] Outpatient [id number] Adam Roseanne 04/05/2017 04/06/2017 [facility] Outpatient [id number] Adam Roseanne 04/05/2017 04/06/2017 [facility] [place] Out[facility] Diag Services [id number] Adam Roseanne 04/13/2017 04/14/2017 [facility] [place] Outpatient [id number] Contreras Baires 04/13/2017 04/14/2017 [facility] [place] [facility] [id number] Adam Roseanne 04/16/2017 04/16/2017 [facility] [place] [facility] Outpt Diag Services [id number] Adam Roseanne 04/24/2017 04/25/2017 [facility] [place] Outpatient [id number] Adam Roseanne 05/20/2017 05/21/2017 [facility] Outpatient [id number] Adam Roseanne 06/03/2017 06/04/2017 [facility] [place] Outpatient [id number] Adam Roseanne 06/03/2017 06/04/2017 [facility] [place] Outpatient [id number] Adam Roseanne 08/19/2017 08/20/2017 [facility] Outpatient [id number] Adam Roseanne 08/31/2017 09/01/2017 [facility] Observation [id number] Alfonzo Stanisic 10/16/2017 10/17/2017 [facility] Outpatient [id number] Adam Roseanne 11/08/2017 11/08/2017 [facility] Outpatient [id number] Justo Margaretbib 11/08/2018 11/09/2018 [facility] Procedures Procedure Code Date Perfomer Comments Source CABG x 5 - Coronary artery bypass grafts x 5 [id number] 02/23/2017 [facility] [place] Biliary lithotripsy [id number] [facility] of [facility] [id number] [facility] [place],[facility] PCL - Percutaneous lithotripsy of renal calculus [id number] [facility] [place] Placement of stent in cardiac conduit [id number] [facility] [place] Assessment and Plan Assessment and Plan [...] PMH significant for hypertension, type 2 diabetes [id number], CAD status post CABG earlier this year, [...] history significant for hypertension, type 2 diabetes [id number], CAD status post CABG earlier this year, [...] obtain orthostatic vitals, echocardiogram, trend troponins, 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 Roseanne Figueroa, as above, PT eval Dehydration due to decreased fluid intake, rehydrate gently given Acute kidney injury on CKD3 rehydrate gently CHF, systolic with EF of less than 35%, not in acute exacerbation Hypertension, permissive hypertension for now, will follow up with neurology recommendations Type 2 diabetes [id number]-[id number], check hemoglobin A1c Prophylaxis, SCDs 10/17/2017 [facility] Extracted from:Title: HF Surgery Author: Jeronimo Sanchez [...] PMHX HTN, HLD who was transferred to [facility] for CABG in the setting of NSTEMI. [...] course Martha Siddiqui Cardiovascular Disease Fellow Pager [phone] Cardiology Attending Attestation: I have seen and examined the patient with Dr. Shin on 02/20/17. I have reviewed all the clinical information, lab investigation and imaging data. I agree with the above findings, assessment and plan. 03/07/2017 [facility] Extracted from:Title: Cardiology Progres s [...] agreed for CABG and wants this at [facility]. Will transfer to [facility] for CABG with Dr Saez. Await beds [...] by Adam Cronin MD on 02/19/2017 16:30 [employer]SF[employer] AND [employer] WORK[employer] Borderline hypotension. Will continue current dose of lasix at 40 mg PO BID 02/19/2017 [facility] Plan of Care No Data Provided for This Section Social History Social History Date Source Social History TypeResponse Alcohol Type Wine. Frequency: 1-2 times per year. Smoking Status Never smoker; Ready to change: No; Concerns about tobacco use in household: No; Exposure to Tobacco Smoke None; Cigarette Smoking Last 365 Days No; Reg Smoking Cessation Counseling No entered on: 10/16/17 02/16/2017 [facility] Social History TypeResponse Alcohol Type Wine. Frequency: 1-2 times per year. Smoking Status Never smoker; Ready to change: No; Concerns about tobacco use in household: No; Exposure to Tobacco Smoke None; Cigarette Smoking Last 365 Days No; Reg Smoking Cessation Counseling No entered on: 10/16/17 02/16/2017 [facility] Social History TypeResponse Alcohol Type Wine. Frequency: 1-2 times per year. Smoking Status Never smoker; Ready to change: No; Concerns about tobacco use in household: No; Exposure to Tobacco Smoke None; Cigarette Smoking Last 365 Days No; Reg Smoking Cessation Counseling No entered on: 06/03/17 02/16/2017 [facility] [place] Social History TypeResponse Alcohol Type Wine. Frequency: 1-2 times per year. Smoking Status Never smoker; Ready to change: No; Concerns about tobacco use in household: No; Exposure to Tobacco Smoke None; Cigarette Smoking Last 365 Days No; Reg Smoking Cessation Counseling No entered on: 10/16/17 02/16/2017 [facility] Social History TypeResponse Alcohol Type Wine. Frequency: 1-2 times per year. Smoking Status Never smoker; Ready to change: No; Concerns about tobacco use in household: No; Exposure to Tobacco Smoke None; Cigarette Smoking Last 365 Days No; Reg Smoking Cessation Counseling No entered on: 10/16/17 02/16/2017 [facility] [place] Family History No Data Provided for This Section Advance Directives No Data Provided for This Section Functional Status No Data Provided for This Section
--- OUTSIDE RECORDS SUMMARY | 2019-12-14 19:38 | XMS REPORT | Continuity of Care Document ---
Author Author [facility] t Organization [facility] Address [address] [place] [address] Phone Unavailable Care Team Providers Care Manager Wind Name Role Phone Sebastián SYLVESTER MD PCP CRISTY WINSTON Attphys Unavailable TU PADILLA Attphys Unavailable Shebib, Zaher Attphys DUKE, GINO Attphys Unavailable PATTEN, SOUHEIL Attphys Unavailable Cachorro Cronin Attphys Stanisic, Alfonzo Attphys Teto Baires Attphys Gregoric, Franky Parth Attphys Aj Puentes Attphys Latthe, B Perry Attphys CRISTY WINSTON Admphys Unavailable DUKE, GINO Admphys Unavailable PATTEN, SOUHEIL Admphys Unavailable Stanisic, Alfonzo Admphys Gregoric, Franky Parth Admphys Latthe, B Perry Admphys Payers Payer Name Policy Type Policy Number Effective Date Expiration Date Lino zambrano [facility] Medicare Complete [id number] [facility] Problems Condition Name Condition Details Condition Category Status Onset Date Resolution Date Last Treatment Date Treating Clinician Comments Source CELLULITIS CELL ULITIS Active 11/08/2018 [facility] Diagnosis Active 2018-11-08 00:00:00 2018-11-08 12:30:00 Kirstie Valero NSTEMI (non-ST elevated myocardial infarction) NSTEMI (non-ST elevated myocardial infarction) Disease Active 2018-04-20 00:00:00 [facility] Head trauma Head trauma Disease Active 2018-04-06 00:00:00 [facility] FOLLOW UP WITH MONITOR 2 WKS HOSPITAL FOLLOW UP WITH MONITOR 2 WKS Active 10/18/2017 [facility] Diagnosis Active 2017-10-18 00:00:00 2017-12-09 17:19:00 Kirstie Valero CODE STROKE POSS CODE STROKE POSS Active 10/16/2017 [facility] Diagnosis Active 2017-10-16 00:00:00 2017-10-16 02:51:00 Kirstie Valero ATAXIA, RIGHT SIDED WEAKNESS A TAXIA, RIGHT SIDED WEAKNESS Active 10/16/2017 [facility] Diagnosis Active 10-16 00:00:00 2018-04-18 15:30:00 Kirstie eagle 2 WKS FOLLOW UP 2 WK S FOLLOW UP Active 08/19/2017 [facility] Diagnosis Active 2017-08-19 00:00:00 2017-12-08 1 4:13:00 Kirstie Valero I50.9, I10 I50. 9, I10 Active 06/03/2017 [facility] Diagnosis Active 2017-06-03 13:00:00 2017-06-03 13:52:00 Kirstie Valero I50.9 I50. 9 Active 05/20/2017 [facility] Diagnosis Active 2017-05-20 00:00:00 2017-06-03 10:43:00 Kirstie Valero I70.213 - ATHSCL [place] ARTERIES OF EXTR I70.213 - ATHSCL [place] ARTERIES OF EXTR Active 04/13/2017 [facility] Diagnosis Active 2017-04-13 00:01:00 2017-07-30 22:26:00 Kirstie Valero 6 MONTHS FOLLOW UP 6 MO NT FOLLOW UP Active 04/13/2017 [facility] Diagnosis Active 2017-04-13 00:00:00 2018-06-24 16:56:00 Kirstie Valero R42 R06.02 I10 R60.9 R42 R06.02 I10 R60.9 Active 04/05/2017 [facility] Diagnosis Active 2017-04-05 00:00:00 2017-08-18 11:11:00 [facility] FOLLOW UP 2 WKS FOLL OW UP 2 WKS Active 04/05/2017 [facility] Diagnosis Active 2017-04-05 00:00:00 2017-05-20 1 2:52:00 [facility] FOLLOW UP HOSP ITAL FOLLOW UP Active 04/02/2017 [facility] Diagnosis Active 2017-04-02 00:00:00 2017-04-13 14:11:00 [facility] FOLLOW UP FOLL OW UP Active 04/01/2017 [facility] Diagnosis Active 2017-04-01 00:00:00 2017-04-05 14:03:00 [facility] 1 WK F/U 1 WK F/U Active 03/18/2017 [facility] Diagnosis Active 2017-03-18 00:00:00 2017-04-25 15:33:00 [facility] F/U HOSP ITAL F/U Active 03/09/2017 [facility] Diagnosis Active 2017-03-09 00:00:00 2017-03-17 09:47:00 [facility] CORONARY ARTERY DISEASE NAN NARY ARTERY DISEASE Active 02/19/2017 [facility] Diagnosis Active 2017-02-19 00:00:00 2017-03-15 12:57:00 [facility] CP CP Active 02/15/2017 [facility] Diagnosis Active 2017-02-15 00:00:00 2017-02-15 13:48:00 [facility] PNEUMONIA, CHEST PAIN PNEU MONIA, CHEST PAIN Active 02/15/2017 [facility] Diagnosis Active 2017-02-15 00:00:00 2017-02-18 08:31:00 [facility] Chest pain Chest pain Problem Active [facility] Pancreatitis Pancreatitis Problem Active [facility] Type 2 diabetes mellitus without complications Type 2 diabetes mellitus without complications 05/06/2018 [facility], [place] Problem 2018-05-06 11:21:51 M kanwal Valero 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 05/06/2018 [facility] 2018-05-06 11:21:51 Kirstie Valero Hypertensive heart and chronic kidney di sease with heart failure and stage 1 through stage 4 chronic kidney disease, or unspecified chronic kidney disease Hypertensive heart and chronic kidney disease with heart failure and stage 1 through stage 4 chronic kidney disease, or unspecified chronic kidney disease 05/06/2018 [facility] 2018-05-06 11:21:51 Kirstie Valero Personal history of transient ischemic a ttack (TIA), and cerebral infarction without residual deficits Personal history of transient ischemic attack (TIA), and cerebral infarction without residual deficits 05/06/2018 [facility] 2018-05-06 11:21:51 Kirstie Valero Chronic systolic (congestive) heart failure Chronic systolic (congestive) heart failure 05/06/2018 [facility] 2018-05-06 11:21:51 Kirstie Valero Hyperlipidemia, unspecified Hy perlipidemia, unspecified 05/06/2018 [facility] 2018-05-06 11:21:51 Kirstie Valero Chronic kidney disease, stage 3 (moderate) Chronic kidney disease, stage 3 (moderate) 05/06/2018 [facility] 2018-05-06 11:21:51 Kirstie Valero Type 2 diabetes mellitus with diabetic chronic kidney disease Type 2 diabetes mellitus with diabetic chronic kidney disease 05/06/2018 [facility] 2018-05-06 11:21:51 Kirstie Valero Obesity, unspecified Obes ity, unspecified 05/06/2018 [facility] 2018-05-06 11:21:51 Kirstie Valero Ataxia, unspecified Atax ia, unspecified 05/06/2018 [facility] 2018-05-06 11:21:51 Kirstie Valero Atherosclerosis of aorta Athe rosclerosis of aorta 05/06/2018 [facility] 2018-05-06 11:21:5 1 Kirstie Valero Degenerative disease of nervous system, unspecified Degenerative disease of nervous system, unspecified 05/06/2018 [facility] 2018-05-06 11:21:51 Kirstie Valero Cerebral cysts Cere bral cysts 05/06/2018 [facility] 2018-05-06 11:21:51 Alistair aisha Valero terminal carman (current) use of antithrombotics/antiplatele ts half-way (current) use of antithrombotics/antiplatelets 05/06/2018 [facility] 2018-05-06 11:21:51 [facility] Anj[address] terminal carman (current) use of insulin half-way (current) use of insulin 05/06/2018 [facility] 2018-05-06 11:21:51 [facility] Dupont terminal carman (current) use of aspirin half-way (current) use of aspirin 05/06/2018 [facility] 2018-05-06 11:21:51 Kirstie eagle Pneumonia, unspecified organism Pneumonia, unspecified organism 05/28/2017 [facility] 2017-05-28 15:47:53 [facility] [address] Acute on chronic diastolic (congestive) heart failure Acute on chronic diastolic (congestive) heart failure 05/28/2017 [facility] 2017-05-28 15:47:53 Alistair Valero Morbid (severe) obesity due to excess calories Morbid (severe) obesity due to excess calories 05/28/2017 [facility] Problem 2017-05-28 15:47:53 [facility] Her eagle Hypomagnesemia Hypo magnesemia 05/28/2017 [facility] Problem 2017-05-28 15:47:53 Alistairkaycee Valero Body mass index (BMI) 29.0-29.9, adult Body mass index (BMI) 29.0-29.9, adult 05/28/2017 [facility] Problem 2017-05-28 15:47:53 [facility] Acute systolic (congestive) heart failure Acute systolic (congestive) heart failure 06/13/2017 [facility] Problem 2017-06-13 13:05:19 [facility] Cardiogenic shock Card iogenic shock 06/13/2017 [facility] Problem 2017-06-13 13:05:19 [facility] [address] Respiratory failure, unspecified with hypercapnia Respiratory failure, unspecified with hypercapnia 06/13/2017 [facility] Problem 2017-06-13 13:05:19 Alistair Valero Encephalopathy, unspecified En cephalopathy, unspecified 06/13/2017 [facility] Problem 2017-06-13 13 :05:19 [facility] Ventricular fibrillation Vent ricular fibrillation 06/13/2017 [facility] Problem 2017-06-13 13 :05:19 [facility] Ventricular tachycardia Vent ricular tachycardia 06/13/2017 [facility] Problem 2017-06-13 13:05:19 Kirstie Valero Acute posthemorrhagic anemia A cute posthemorrhagic anemia 06/13/2017 [facility] Problem 2017-06-13 13:05:19 Kirstie Dupont Acidosis Acid osis 06/13/2017 [facility] Problem 2017-06-13 13:05:19 Kirstie Valero Other specified coagulation defects Other specified coagulation defects 06/13/2017 [facility] Problem 2017-06-13 13:05:19 [facility] Stenosis of vascular prosthetic devices, implants and grafts, 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, implants and grafts, initial encounter 06/13/2017 [facility] Problem 2017-06-13 13:05:19 Kirstie Valero Intraoperative hemorrhage and hematoma o f a circulatory system organ or structure complicating a cardiac bypass Intraoperative hemorrhage and hematoma of a circulatory system organ or structure complicating a cardiac bypass 06/13/2017 [facility] Problem 2017-06-13 13:05:19 [facility] Thrombocytopenia, unspecified Thrombocytopenia, unspecified 06/13/2017 [facility] Problem 2017-06-13 13:05:19 [facility] Ischemic cardiomyopathy Isch emic cardiomyopathy 06/13/2017 [facility] Problem 2017-06-13 13:05:19 Kirstie Valero Presence of coronary angioplasty implant and graft Presence of coronary angioplasty implant and graft 06/13/2017 [facility] Problem 2017-06-13 13:05:1 9 Kirstie Valero half-way (current) use of oral hypoglycemic drugs terminal carman (current) use of oral hypoglycemic drugs 06/13/2017 [facility] Problem 2017-06-13 13:05:19 Alistair Valero Allergy status to other antibiotic agents status Allergy status to other antibiotic agents status 06/13/2017 [facility] Problem 2017-06-13 13:05:19 Kirstie Valero Surgical operation [...] the time of the procedure 06/13/2017 [facility] Problem 2017-06-13 13:05:19 [facility] Nonrheumatic aortic (valve) stenosis Nonrheumatic aortic (valve) stenosis 06/13/2017 [facility] Problem 2017-06-13 13:05:19 Kirstie Dupont Postprocedural hypotension Pos tprocedural hypotension 06/13/2017 [facility] Problem 2017-06-13 13 :05:19 [facility] Physical restraint status Phys ical restraint status 06/13/2017 [facility] Problem 2017-06-13 13 :05:19 [facility] Other specified peripheral vascular diseases Other specified peripheral vascular diseases 06/13/2017 [facility] Problem 2017-06-13 13:05:19 [facility] Restlessness and agitation Res tlessness and agitation 06/13/2017 [facility] Problem 2017-06-13 13 :05:19 Kirstie Anj[address] Surgical operation with anastomosis, byp ass or graft as the cause of abnormal reaction of the patient, or of later complication, without mention of misadventure at the time of the procedure Surgical operation with anastomosis, bypass or graft as the cause of abnormal reaction of the patient, or of later complication, without mention of misadventure at the time of the procedure 06/13/2017 [facility] Problem 2017-06-13 13:05:19 Kirstie Anj[address] Personal history of urinary calculi Personal history of urinary calculi 06/13/2017 [facility] Problem 2017-06-13 13:05:19 Kirstie Anjum Encounter for immunization Enc ounter for immunization 06/13/2017 [facility] Problem 2017-06-13 13 :05:19 [facility] Cellulitis, unspecified Cell ulitis, unspecified 07/21/2017 [facility] [place] Problem 2017-07-21 12:50:5 5 [facility] Cutaneous abscess of left lower limb Cutaneous abscess of left lower limb 07/21/2017 [facility] [place] Problem 2017-07-21 12:50:55 Kirstie Dupont Pain in left leg Pain in left leg 07/21/2017 [facility], [facility] [place] Problem 2017-07-21 12:50:55 [facility] Pure hypercholesterolemia, unspecified Pure hypercholesterolemia, unspecified 06/23/2017 [facility] Problem 2017-06-23 12:51:40 Kirstie Valero Essential (primary) hypertension Essential (primary) hypertension 07/21/2017 [facility] Problem 2017-07-21 12:41:30 Kirstie Valero Body mass index (BMI) 25.0-25.9, adult Body mass index (BMI) 25.0-25.9, adult 06/23/2017 [facility] Problem 2017-06-23 12:51:40 Kirstie Valero Presence of aortocoronary bypass graft Presence of aortocoronary bypass graft 06/23/2017 [facility] Problem 2017-06-23 12:51:40 [facility] [address] Localized edema Loca lized edema 07/21/2017 [facility] Problem 2017-07-21 12:41:30 Co princess Valero Dizziness and giddiness Dizz iness and giddiness 07/12/2017 [facility] Problem 2017-07-12 13:59:03 Kirstie Valero Shortness of breath Shor tness of breath 07/12/2017 [facility] Problem 2017-07-12 13:59:03 [facility] Edema, unspecified [place], unspecified 07/12/2017 [facility] Problem 2017-07-12 13:59:03 [facility] [address] Other specified postprocedural states Other specified postprocedural states 07/31/2017 [facility] [place] Problem 2017-07-31 11:26:14 Kirstie Valero Left anterior fascicular block Left anterior fascicular block 08/26/2017 [facility] Problem 2017-08 20:19:56 Kirstie Valero Abnormal electrocardiogram [ECG] [EKG] Abnormal electrocardiogram [ECG] [EKG] 08/26/2017 [facility] Problem 2017-08-26 20:19:56 Kirstie [facility] fco Presence of cardiac pacemaker Presence of cardiac pacemaker 08/26/2017 [facility] Problem 2017-08-26 20:19:56 Kirstie Valero Diabetes mellitus (disorder) D iabetes mellitus (disorder) Resolved Problem 11/10/2018 [facility] [place] Problem Resolved 2018-11-10 22:57:31 Sara Valero Hypercholesterolemia (disorder) Hypercholesterolemia (disorder) Resolved Problem 11/10/2018 [facility] [place] [place],[facility] Problem Resolved 2018-11-10 22:57:31 Sara Valero Hypertensive disorder, systemic arterial (disorder) Hypertensive disorder, systemic arterial (disorder) Resolved Problem 11/10/2018 [facility] [place], [facility] [place],[facility] Problem Resolved 2018-11-10 22:57:31 Kirstie Valero PNEUMONIA, UNSPECIFIED ORGANISM PNEUMONIA, UNSPECIFIED ORGANISM Active [facility] Diagnosis Active 2017-02-18 08:31:00 Kirstie Valero ATAXIA, UNSPECIFIED ATAX IA, UNSPECIFIED Active [facility] Diagnosis Active 2018-04-18 15:30:00 Kirstie Valero WEAKNESS WEAK NESS Active [facility] Diagnosis Active 2018-04-18 15:30:00 Sara Valero Weakness Weak ness 01/06/2018 05/06/2018 [facility] Problem 2018-01-06 05:15:33 2018-05-06 11:21:51 2018-05-06 11:21 :51 Kirstie Valero Encounter for other administrative examinations Encounter for other administrative examinations 10/19/2017 03/20/2018 [facility] Problem 2017-10-19 03:15:11 2018-03 13:23:22 2018-03-20 13:23:22 Kirstie Valero Hypertensive heart disease with heart failure Hypertensive heart disease with heart failure 05/28/2017 08/26/2017 [facility] Problem 2017 02:55:00 2017-08-26 20:19:56 2017-08-26 20:19:56 Kirstie Valero Atherosclerosis of [place] arteries of ex tremities with intermittent claudication, bilateral legs Atherosclerosis of [place] arteries of extremities with intermittent claudication, bilateral legs 04/30/2017 07/31/2017 [facility] [place] Problem 2017-04-09 3 04:19:19 2017-07-31 11:26:14 2017-07-31 11:26:14 Kirstie eagle Other complications of procedures, not elsewhere class ified, initial encounter Other complications of procedures, not elsewhere classified, initial encounter 04/20/2017 07/21/2017 [facility] Problem 2017-04-20 02:50:58 2017-07-21 12:41:30 2017-07-21 12:41:30 Kirstie Valero Non-ST elevation (NSTEMI) myocardial infarction Non-ST elevation (NSTEMI) myocardial infarction 03/23/2017 06/13/2017 [facility] Problem 2017-03-23 03:55:46 2017-06-13 13:05:19 2017-06-13 13:05:19 Kirstie Valero Atherosclerotic heart disease of [place] coronary artery with unspecified angina pectoris Atherosclerotic heart disease of [place] coronary artery with unspecified angina pectoris 02/26/2017 05/28/2017 [facility] Problem 2017-02-26 04:26:00 2017-05-28 15:47:53 2017-05-28 15:47:53 Kirstie Valero Allergies, Adverse Reactions, Alerts Allergy Name Allergy Type Status Severity Reaction(s) Onset Date Inacti ve Date Treating Clinician Comments Source poison thang extract DA Active SV 2018-11-09 00:00:00 [facility] STING (BEE STING) DA Active SV 2010-03-23 00:00:00 [facility] Shellfish DA Active SV 2010-03-23 00:00:00 [facility] levofloxacin DA Active U 2009-07-18 00:00:00 [facility] Levofloxacin Propensity to adverse reactions to drug Active Other (See Comments) 2009-02-13 00:00:00 Muscle contraction, c ould not walk Vance Mchugh Levaquin Levaquin Active Membree Snowden Family History Family Member Diagnosis Comments Start Date Stop Date Source Natural brother Cancer [facility] ethodist Natural father Stroke [facility] Natural mother Diabetes [facility] thodist Social History Social Habit Start Date Stop Date Quantity Comments Source Sex Assigned At Lilia serge Mchugh Tobacco use and exposure 2018-04-22 00:00:00 2018-04-22 00:00:00 Neve r used Vance Mchugh Alcohol intake 2018-04-22 [...] 2018-12-09 00:00:00 2019-02-24 00:00:00 No Yonatan Nunes Race Steward 1 Every 6 Hours as needed for Pain [facility] Amlodipine Besylate (Norvasc) 10 Mg Tab, 10 Mg Oral Am lodipine Besylate (Norvasc) 10 Mg Tab, 10 Mg Oral 2018-12-09 00:00:00 2019-02-24 00:00:00 No Yonatan Nunes Race Steward 10 Daily [facility] Ondansetron Hcl (Zofran*) 4 Mg Tablet, 4 Mg Oral Ondan setron Hcl (Zofran*) 4 Mg Tablet, 4 Mg Oral 2018-12-09 00:00:00 2019-02-24 00:00:00 No Yonatan villasenor Race Steward 4 Every 6 Hours as needed for Nausea [facility] omega 1-lhj-hfb-fish oil (FISH OIL) 100-160-1,000 mg capsule 2018-04-23 [...] room temperature. Expires in days from Date [facility] Anjum Dextrose 50% Syringe 2017-10-17 15:45:00 No 12.5 gm, 25 mL, Route: IVP, Drug Form: INJ, Dosing Weight 100.909, kg, PRN, PRN Blood Glucose Results, Start date: 10/17/17 10:45:00 CDT, Duration: 30 day, Stop date: 11/16/17 10:44:00 CDT [facility] Glucagon 2017-10-17 15:45:00 No 1 mg, Route: IM, Drug form: PDR/INJ, PRN, Dosing Weight 100.909, kg, PRN Blood Glucose Results, Start date: 10/17/17 10:45:00 CDT, Duration: 30 day, Stop date: 11/16/17 10:44:00 CDT [facility] potassium phosphate-sodium phosphate 250 mg-45 mg-298 mg ora l tablet 2017-10-17 15:31:00 No Notes: (Same as: K-Phos Neutral, Phospha 250 Neutral) [facility] K-Phos Original 2017-10-17 15:25:00 No 250 mg, Route: PO, Drug form: TAB, ONCE, Dosing Weight 100.909, kg, Start date: 10/17/17 10:25:00 CDT, Stop date: 10/17/17 10:25:00 CDT [facility] MAGNESIUM GLUCONATE 2017-10-17 15:25:00 No Notes: (Same as: [place]) Magnesium gluconate 500mg=27mg elemental magnesium Dose= mg magnesium gluconate(___mg elemental magnesium) [facility] Aspirin 81 MG Enteric Coated Tablet 2017-10-17 14:00:00 No Notes: Do not crush or chew. (Same As: Ecotrin) [facility] Plavix 2017-10-17 14:00:00 No Notes: (Same As: Plavix) [facility] clopidogrel 2017-10-17 14:00:00 No Notes: ( Same As: Plavix) [facility] Vitamin B12 2017-10-17 13:05:00 No Notes: (Same As: Vitamin B12) [facility] pantoprazole 2017-10-17 12:30:00 No Notes: Tablet should not be chewed or crushed. (Same as: Protonix) [facility] atorvastatin 2017-10-17 02:00:00 No Notes: (Same as: Lipitor) [facility] 24 HR Metoprolol Tartrate 25 MG Extended Release Tablet [Top rol] 2017-10-16 14:00:00 No Notes: (Same as: Toprol XL) D o Not Crush [facility] Corlanor 2017-10-16 14:00:00 No Notes: Hold and contact prescriber if HR <50 bpm. (Same as: Corlanor) Dionnikki Valero Finasteride 2017-10-16 14:00:00 No Notes: (Same as: Proscar) "Do Not Crush" Women of childbearing age should not touch or handle broken tablets Kirstie Valero Acetaminophen 325 MG / Hydrocodone Bitartrate 5 MG Oral Tabl et [[place] 5/325] 2017-10-16 13:39:00 No Notes: (Same as: [place] 325/5) Do not exceed 4gm/day of acetaminophen. Kirstie Salinasa nn pantoprazole 2017-10-16 10:14:00 Yes 40 mg, PO, Daily, # 30 tab, 0 Refill(s) Kirstie Salinasann Metformin hydrochloride 500 MG Oral Tablet 2017-10-16 10:14:00 Yes 500 mg = 1 tab, PO, BID, 0 Refill(s) Dion Valero atorvastatin 40 mg oral tablet 2017-10-16 10:14:00 Yes 40 mg = 1 tab, PO, Bedtime, # 30 tab, 0 Refill(s) Kirstie Valero Furosemide 2017-10-16 10:14:00 No 20 mg, PO , Q12H, 0 Refill(s) Kirstie Valero clopidogrel 2017-10-16 10:14:00 Yes 75 mg, PO, Daily, 0 Refill(s) [facility] Anjum Finasteride 2017-10-16 10:14:00 Yes 5 mg [...] Stop date: 10/16/17 11:37:00 CDT, 2.33, m2 [facility] Acetaminophen 300 MG / Codeine Phosphate 60 MG Oral Tablet [Tylenol with Codeine #4] 2017-10-16 09:54:00 Yes 1 tab, PO, BID, PRN Pain, # 32 tab, 0 Refill(s) [facility] Magnesium Oxide 2017-10-16 09:50:00 No 400 mg, PO, Daily, 0 Refill(s) [facility] Aspirin 2017-10-16 07:00:00 No Notes: Take with food. [facility] Plavix 2017-10-16 07:00:00 No Notes: (Same As: Plavix) [facility] Saline Flush 0.9% 2017-10-16 05:59:00 No Notes: Same as: BD Posiflush Sterile [facility] multivitamin 2017-08-31 20:18:00 Yes Daily [facility] Glucosamine Chondroitin 2017-08-31 20:18:00 Yes PO, Daily [facility] ivabradine 5 MG Oral Tablet [Corlanor] 2017-08-31 20:18:00 No 2.5 mg = 0.5 tab, PO, BID [facility] 24 HR Metoprolol Tartrate 50 MG Extended Release Tablet [Top rol] 2017-06-03 18:28:00 Yes 50 mg = 1 tab, PO, Daily, # 3 0 tab [facility] sacubitril 49 MG / valsartan 51 MG Oral Tablet [Entresto] 2017-06-03 18:28:00 Yes 1 tab, PO, BID, # 56 tab [facility] atorvastatin 40 MG Oral Tablet [Lipitor] 2017-05-20 19:24:00 Yes 40 mg = 1 tab, PO, Bedtime, # 30 tab, 3 Refill(s), [facility] [id number] [facility] Metformin hydrochloride 500 MG Oral Tablet 2017-05-20 19:24:00 Yes 500 mg = 1 tab, PO, BID-Meals, # 60 tab, 1 Refill(s), Pharmacy: [facility] [id number] [facility] 24 HR Metoprolol Tartrate 25 MG Extended Release Tablet [Top rol] 2017-05-20 19:24:00 No 25 mg = 1 tab, PO, Daily, # 30 tab, 3 Refill(s), Pharmacy: [facility] [id number] [facility] sacubitril 24 MG / valsartan 26 MG Oral Tablet [Entresto] 2017-05-20 19:24:00 No 1 tab, PO, BID , # 60 tab, 3 Refill(s), [facility]: [facility] [id number] [facility] Furosemide 20 MG Oral Tablet [Lasix] 2017-04-05 21:22:00 Ye s 20 mg = 1 tab, PO, Q12H, # 30 tab, 1 Refill(s), Pharmacy: [facility] [id number] [facility] finasteride 5 mg oral tablet 2017-04-05 21:22:00 Yes 5 mg = 1 tab, PO, Daily, # 30 tab, 1 Refill(s), Pharmacy: [facility] [id number] [facility] tramadol hydrochloride 50 MG Oral Tablet 2017-04-05 21:22:00 No 50 mg = 1 tab, PO, Q6H, PRN Pain, X 30 day, # 60 tab, 1 Refill(s), other [facility] Acetaminophen 300 MG / Codeine Phosphate 30 MG Oral Tablet [Tylenol with Codeine #3] 2017-04-05 21:22:00 No 1 - 2 tab, PO, Q6H, PRN Pain, X 14 day, # 30 tab, 0 Refill(s), other [facility] Amoxicillin 875 MG / Clavulanate 125 MG Oral Tablet [Augment in 875-mg] 2017-04-05 21:22:00 No 875 mg = 1 tab, PO, BID, X 7 day, # 14 tab, 0 Refill(s), Pharmacy: [facility] [id number] [facility] Metformin hydrochloride 500 MG Oral Tablet 2017-03-07 22:04:00 Yes 500 mg = 1 tab, PO, BID-Before Meals, # 30 tab, 1 Refill(s) [facility] Acetaminophen 300 MG / Codeine Phosphate 30 [...] 01:56:00 No Not es: (Same as:MORPhine Sulfate) Kirstie Valero Tramadol 2017-03-06 04:34:00 No Notes: Not [...] chewed or crushed. (Same as: Protonix) Bertrand donohuecarriemichel Valero Insulin Lispro 2017-03-02 05:39:00 No Notes: (Same [...] Hydrocodone Bitartrate 5 MG Oral Tabl et [[place] 5/325] 2017-03-01 22:08:00 No Notes: (Same as: [place] 325/5) Do not exceed 4gm/day of acetaminophen. Kirstie Lorenzo nn Seroquel 2017-02-28 23:00:00 No Notes: ([facility] korina as: SEROquel) Kirstie Valero Sodium Chloride 0.9% IV 1,000 mL + M.V.I .-12 10 mL Daily + folic acid IV 1 mg Daily + thiamine IV 1 2017-02-28 18:59:00 No 1,000 mL, Rate: 100 ml/hr, Infuse over: 10.1 hr, Route: IV, Dosing Weight 100.909 kg, Total Volume: 1,011.2, Start date: 02/28/17 12:59:00 RN CVOR, Duration: 3 day, Stop date: 03/03/17 12:58:00 RN CVOR, 2.33, m2 Kirstie Valero Seroquel 2017-02-28 17:57:00 No Notes: ([facility] e as: SEROquel) Kirstie Valero Lasix 2017-02-27 19:20:00 No Notes: (Same a s: Lasix) Kirstie Valero Seroquel 2017-02-27 16:41:00 No Notes: ([facility] e as: SEROquel) [facility] Anjum Insulin Glargine 2017-02-27 15:00:00 No Notes: Same as: Lantus) Do not hold insulin without contacting prescriber WASTE: F/P - Black; E - Municipal Trash Bin [facility] An[facility] Acetaminophen 10 MG/ML Injectable Solution 2017-02-27 09:06:00 No Notes: Infuse over 15 minutes Do not exceed 4gm/day of acetaminophen MEDICATION WASTE Product Size: 1000 mg Product Wasted: ___ mg [facility] An[facility] Haldol 2017-02-27 04:41:00 No Notes: (Same as: Haldol) [facility] Anjum heparin 2017-02-27 04:00:00 No Notes: porci ne heparin [facility] Insulin Glargine 2017-02-27 00:15:00 No Notes: (Same as: Lantus) Do not hold insulin without contacting prescriber WASTE: F/P - Black; E - Municipal Trash Bin "single patient use only" [facility] Insulin Lispro 2017-02-26 23:39:00 No Notes: (Same as: Humalog ) Roll in palms of hands gently; Do not shake `vigorously. "Single Patient Use Only " WASTE: F/P - Black; E - Municipal Trash Bin Stable for 28 days at room temperature. Expires in days from Date [facility] Dextrose 50% Syringe 2017-02-26 23:39:00 No 25 gm, 50 mL, Route: IVP, Drug Form: INJ, Dosing Weight 100.909, kg, PRN, PRN Blood Glucose Results, Start date: 02/26/17 17:39:00 RN CVOR, Duration: 30 day, Stop date: 03/28/17 17:38:00 [facility] Glucagon 2017-02-26 23:39:00 No 1 mg, Route: IM, Drug form: PDR/INJ, PRN, Dosing Weight 100.909, kg, PRN Blood Glucose Results, Start date: 02/26/17 17:39:00 RN CVOR, Duration: 30 day, Stop date: 03/28/17 17:38:00 [facility] Dexmedetomidine 2017-02-26 22:28:00 No 400 microgram, 4 mL, Rate: Titrate, Start Dose: 0.2 microgram/kg/hr, Titration: 0.1 microgram/kg/hr every 30 min, Goal(s): comfort, Max Dose: 0.5 microgram/kg/hr, Route: IV, Dosing Weight 100.909 kg, Total Volume: 100, Start date: 02/26/17 16:28:00 CS... [facility] Haldol 2017-02-26 21:58:00 No 2 mg, Route: IV, ONCE, Dosing Weight 100.909, kg, Start date: 02/26/17 15:58:00 RN CVOR, Stop date: 02/26/17 15:58:00 RN CVOR [facility] Versed 2017-02-26 21:10:00 No 2 mg, Route: IVP, ONCE, Dosing Weight 100.909, kg, Start date: 02/26/17 15:10:00 RN CVOR, Stop date: 02/26/17 15:10:00 [facility] Midazolam 2017-02-26 13:55:00 No 2 mg, Route: IVP, ONCE, Dosing Weight 100.909, kg, Start date: 02/26/17 7:55:00 RN CVOR, Stop date: 02/26/17 7:55:00 RN CVOR Kirstie Valero heparin additive 25,000 unit [400 unit/h r] [...] Notes: (Same as: Colace) (Do Not Crush) Dioncassie aj Valero Aspirin 81 MG Chewable Tablet 2017-02-25 19:00:00 No Notes: Take with food. Kirstie Valero Diphenhydramine 2017-02-25 17:34:00 No Notes: (Same as: Benadryl) Kirstie Valero Diphenhydramine 2017-02-25 17:26:00 No Notes: (Same as: Benadryl) Kirstie Anjum Famotidine 2017-02-25 17:25:00 No Notes: (Same as: [...] Drug form: OINT, Start date: 02/24/17 21:00:00 RN CVOR, Stop date: 03/01/17 9:00:00 RN CVOR, MRSA Decolonization Kirstie [facility]ont Sodium Chloride 0.9% (titrate) 250 mL 2017-02-25 01:20:00 N o 250 mL, Rate: on call for use with blood product administration, Dosing Weight 100.909, kg, Route: IV, Total Volume: 250, Start Date: 02/24/17 19:20:00 RN CVOR, Duration: 30 day, Stop date: 03/26/17 19:19:00 RN CVOR, Replace Every: 24 hr Kirstie Valero Pepcid 2017-02-24 19:59:00 No Notes: (Same as: Pepcid) Can be dilute in 5-10cc NS IVP: Slow IV push over at least 2 minutes. [facility] Zantac 2017-02-24 19:34:00 No 50 mg, Route: IVPB, ONCE, Dosing Weight 100.909, kg, Start date: 02/24/17 13:34:00 RN CVOR, Stop date: 02/24/17 13:34:00 RN CVOR [facility] Diphenhydramine 2017-02-24 19:34:00 No Notes: (Same as: Benadryl) [facility] methylPREDNISolone SODium SUCCinate 2017-02-24 18:00:00 No Notes: (Same as:Solu-MEDROL, A-Methapred) [facility] albumin human 5% intravenous solution 2017-02-24 17:21:00 N o Notes: LOT#: Mfg: WASTE: F/P - Red; E -Red (Same as: Albuminar) "blood product derivative" [facility] Anjum cefepime 2017-02-24 16:00:00 No Notes: (Same As: Maxipime) MEDICATION WASTE Product Size: 1000 mg Product Wasted: ___ mg [facility] Fluconazole 2017-02-24 16:00:00 No Notes: ( Same as: Diflucan) [facility] pantoprazole 2017-02-24 15:00:00 No Notes: For IV push reconstitute with 10 ml 0.9% sodium chloride and push over 2 minutes. (Same as: Protonix) [facility] Miralax 2017-02-24 15:00:00 No Notes: Dissolve in 8 oz of water or juice. (Same as: Miralax) Kirstie Salinasa nn Docusate Sodium 100 MG Oral Capsule [Colace] 2017-02-24 15:00:00 No Notes: (Same as: Colace) (Do Not Crush) Kirstie Valero vancomycin 2017-02-24 15:00:00 No 2001 mg: infuse over 2.5 hours For adult patients only: Round to nearest 250 mg per Medical Staff approval MEDICATION WASTE Product Size: 1000 mg Product Wasted: ___ mg Kirstie Valero Dexmedetomidine 2017-02-24 14:42:00 No 400 microgram, 4 mL, Rate: Titrate, Start Dose: 0.2 microgram/kg/hr, Titration: 0.1 microgram/kg/hr every 30 min, Goal(s): RASS -1, Max Dose: 1.5 microgram/kg/hr, Route: IV, Dosing Weight 100.909 kg, Total Volume: 100, Start date: 02/24/17 8:42:00 RN CVOR... Kirstie Salinasann Benadryl 2017-02-24 14:42:00 No Notes: (Mario e as: Benadryl) [facility] Vasopressin (MCFP) 2017-02-24 14:15:00 No Notes: (Same As: Pitressin, Vasostrict) [facility] Cefazolin 2017-02-24 06:00:00 No 2 gm, Route: IVPB, Drug form: INJ, Q8H, Dosing Weight 100.909, kg, Start date: 02/24/17 0:00:00 RN CVOR, Duration: 3 doses or times, Stop date: 02/24/17 16:00:00 RN CVOR, ABX Indication: Surgical Prophylaxis [facility] ocular lubricant 2017-02-24 06:00:00 No Notes: (Same as: Lacri-Lube, Duratears Naturale, Artificial Tears, and Tears Again ) [facility] sodium bicarbonate 8.4% 2017-02-24 05:29:00 No Notes: (sodium bicarb 8.4% (1 mEq/ml) 50 ml VL) [facility] iván ceFAZolin (SCIP) 2017-02-24 05:00:00 No Not es: (Same as Ancef) Kirstie Anjum albumin human 25% intravenous solution 2017-02-24 03:08:00 No Notes: Lot #: Mfg: (Same as: Plasbumin-25) "blood product derivative" WASTE: F/P - Red; E -Red MEDICATION WASTE Product Size: 25 gm Product Wasted: _0_ gm Co princess Valero Vancomycin 2017-02-24 03:00:00 No 1,500 mg, Route: IVPB, Drug form: INJ, Q12H, Dosing Weight 100.909, kg, Time Critical Medication, Start date: 02/23/17 21:00:00 RN CVOR, Duration: 2 doses or times, Stop date: 02/24/17 9:00:00 RN CVOR, ABX Indication: Surgical Prophylaxis Kirstie Valero chlorhexidine gluconate 1.2 MG/ML Mouthwash 2017-02-24 03:00:00 No Notes: (Same As: Peridex) Kirstie Lorenzo nn albumin human 25% intravenous solution 2017-02-24 02:27:00 No 25 gm, Route: IV, ONCE, Dosing Weight 100.909, kg, Start date: 02/23/17 20:27:00 RN CVOR, Stop date: 02/23/17 20:27:00 RN CVOR Magnus Valero Cefazolin 2017-02-24 02:00:00 No Notes: (Sa nv as Ancef) Kirstie Valero sodium phosphate 2017-02-24 01:17:00 No 30 mmol, Route: IVPB, ONCE, Dosing Weight 100.909, kg, Priority: STAT, Start date: 02/23/17 19:17:00 RN CVOR, Stop date: 02/23/17 19:17:00 RN CVOR Magnus Valero potassium phosphate 2017-02-24 01:08:00 No Notes: (Same as: K Phosphate.) 1 mMol phoshate has 1.47 mEq potassium Infuse over 4 hours Kirstie Valero Sodium Chloride 0.9% (titrate) 250 mL 2017-02-24 01:04:00 N o 250 mL, Rate: on call for use with blood product administration, Dosing Weight 100.909, kg, Route: IV, Total Volume: 250, Start Date: 02/23/17 19:04:00 RN CVOR, Duration: 30 day, Stop date: 03/25/17 19:03:00 RN CVOR, Replace Every: 24 hr [facility] Vancomycin 2017-02-24 01:00:00 No 2001 mg: infuse over 2.5 hours For adult patients only: Round to nearest 250 mg per Medical Staff approval MEDICATION WASTE Product Size: 1000 mg Product Wasted: ___ mg Kirstie Valero Norepinephrine 2017-02-24 00:40:00 No Notes: Not for direct administration - DILUTE. Protect from light. (Same as:Levophed). Administer by either central venous catheter or peripherally-inserted central catheter (PICC) line. [facility] Epinephrine 2017-02-24 00:40:00 No 8 mg, 8 mL, Rate: Titrate for MAP of 60, Start Dose: 2 microgram/min, Titration: For MAP of 60, Goal(s): MAP of 60, Route: IV, Dosing Weight 100.909 kg, Total Volume: 250, Start date: 02/23/17 18:40:00 RN CVOR, Duration: 30 day, Stop date: 03/25/17 18:39:... [facility] chlorhexidine gluconate 1.2 MG/ML Mouthwash 2017-02-24 00:27:00 No Notes: (Same As: Peridex) [facility] nn Fentanyl 2017-02-24 00:23:00 No 1,000 microgram, 20 mL, Rate: Titrate, Start Dose: 50 microgram/hr, Titration: 25 microgram/hour every 15 minutes, Goal(s): RASS -2, Max Dose: 300 microgram/hr, Route: IV, Dosing Weight 100.909 kg, Total Volume: 20, Start date: 02/23/17 18:23:00 RN CVOR,... [facility] Amicar 2017-02-24 00:21:00 No Notes: (Same as: Amicar) [facility] Fentanyl 2017-02-23 23:44:00 No Notes: Concentration is 20 micrograms/ml [facility] Naloxone 2017-02-23 23:44:00 No Notes: Same as Narcan [facility] Dextrose 50% Syringe 2017-02-23 23:44:00 No 12.5 gm, 25 mL, Route: IVP, Drug Form: INJ, Dosing Weight 100.909, kg, PRN, PRN Blood Glucose Results, Start date: 02/23/17 17:44:00 RN CVOR, Duration: 30 day, Stop date: 03/25/17 17:43:00 RN CVOR [facility] Insulin regular 100 unit + 2017-02-23 23:44:00 No Notes: Final Concentration 1unit/1ml WASTE: F/P - Black; E - Municipal Trash Bin Kirstie Valero Zofran 2017-02-23 23:44:00 No Notes: (Same as: Chavo) MEDICATION WASTE Product Size: 4 mg Product Wasted: _0_ mg [facility] sennosides, MCFP 8.6 MG Oral Tablet 2017-02-23 23:44:00 No Notes: (Same as: Senokot) [facility] Cardene 40 mg in NS 200 mL (Titrate.) IV 40 mg 2017-02-23 23:44: 00 No Notes: Same as: Cardene Concentration: (0.2 mg /1 ml ) [facility] Acetaminophen 325 MG / Hydrocodone Bitartrate 10 MG Oral Tab let 2017-02-23 23:44:00 No Notes: Do not exceed 4gm/day of acetaminophen. (Same as: [place] 325/10) [facility] Acetaminophen 2017-02-23 23:44:00 No Notes: Do not exceed 4 gm/day. (Same as: Tylenol) [facility] hydrocortisone (ANES) 2017-02-23 22:30:00 No Route: IV, Drug form: INJ, ONCE, Stop date: 02/23/17 16:30:00 RN CVOR [facility] Stimate (ANES) 4 microgram 2017-02-23 22:13:00 No Route: IV, Drug Form: INJ, Start date: 02/23/17 16:13:00 RN CVOR, Stop date: 02/23/17 17:13:00 RN CVOR [facility] methylene blue (ANES) 10 mg 2017-02-23 20:42:00 No Route: IV, Drug form: INJ, Start date: 02/23/17 14:42:00 RN CVOR, Stop date: 02/23/17 15:42:00 RN CVOR [facility] protamine (ANES) 10 mg 2017-02-23 20:42:00 No Route: IV, Drug form: INJ, Start date: 02/23/17 14:42:00 RN CVOR, Stop date: 02/23/17 15:42:00 [facility] vasopressin (ANES) 2017-02-23 20:29:00 No Route: IV, Drug form: INJ, ONCE, Stop date: 02/23/17 14:29:00 [facility] calcium gluconate (ANES) 2017-02-23 20:29:00 No Route: IV, Drug form: INJ, ONCE, Stop date: 02/23/17 14:29:00 [facility] norepinephrine ([facility]) 32 microgram 2017-02-23 20:25:00 No Route: IV, Drug form: INJ, Start date: 02/23/17 14:25:00 RN CVOR, Stop date: 02/23/17 15:25:00 [facility] EPINEPHrine (ANES) 2017-02-23 20:24:00 No Route: IV, Drug form: INJ, ONCE, Stop date: 02/23/17 14:24:00 [facility] magnesium sulfate (ANES) 2017-02-23 19:54:00 No Route: IV, Drug form: INJ, ONCE, Stop date: 02/23/17 13:54:00 [facility] Sodium Chloride 0.9% IV (ANES) 500 mL 2017-02-23 19:28:00 N o Route: IV, Total Volume: 500, Start date: 02/23/17 13:28:00 RN CVOR, Stop date: 02/23/17 14:28:00 [facility] Sodium Chloride 0.9% IV (ANES) 246 mL + EPINEPHrine (ANES) 4 000 microgram 2017-02-23 19:26:00 No Route: IV, Drug form: INJ, Start date: 02/23/17 13:26:00 RN CVOR, Stop date: 02/23/17 14:26:00 [facility] Insulin regular (ANES) 2017-02-23 18:04:00 No Route: IV, Drug form: INJ, ONCE, Stop date: 02/23/17 12:04:00 [facility] niCARdipine (ANES) 2017-02-23 16:39:00 No Route: IV, Drug form: INJ, ONCE, Stop date: 02/23/17 10:39:00 [facility] heparin (ANES) 2017-02-23 16:24:00 No Route: IV, Drug form: INJ, ONCE, Stop date: 02/23/17 10:24:00 RN CVOR kanwal Valero norepinephrine (ANES) 2017-02-23 15:34:00 No Route: IV, Drug form: INJ, ONCE, Stop date: 02/23/17 9:34:00 RN CVOR Kirstie Valero rocuronium (ANES) 2017-02-23 15:09:00 No Route: IV, Drug form: INJ, ONCE, Stop date: 02/23/17 9:09:00 RN CVOR Co princess Valero propofol (ANES) 2017-02-23 15:09:00 No Route: IV, Drug form: INJ, ONCE, Stop date: 02/23/17 9:09:00 RN CVOR Me princess Valero lidocaine (ANES) 2017-02-23 15:09:00 No Route: IV, Drug form: INJ, ONCE, Stop date: 02/23/17 9:09:00 RN CVOR Me princess Valero ceFAZolin (ANES) 2017-02-23 14:58:00 No Route: IV, Drug form: INJ, ONCE, Stop date: 02/23/17 8:58:00 RN CVOR Co princess Valero metoprolol (ANES) 2017-02-23 14:53:00 No Route: IV, Drug form: INJ, ONCE, Stop date: 02/23/17 8:53:00 RN CVOR Co princess Valero fentaNYL (ANES) 2017-02-23 14:53:00 No Route: IV, Drug form: INJ, ONCE, Stop date: 02/23/17 8:53:00 RN CVOR Co princess Valero midazolam (ANES) 2017-02-23 14:33:00 No Route: IV, Drug form: SOLN, ONCE, Stop date: 02/23/17 8:33:00 RN CVOR Co princess Valero vancomycin (ANES) 1000 mg 2017-02-23 14:30:00 No Route: IV, Drug form: INJ, Start date: 02/23/17 8:30:00 RN CVOR, Stop date: 02/23/17 9:30:00 RN CVOR Kirstie Valero tranexamic acid (ANES) 100 mg 2017-02-23 14:30:00 No Route: IV, Drug form: INJ, Start date: 02/23/17 8:30:00 RN CVOR, Stop date: 02/23/17 9:30:00 RN CVOR [facility] Sodium Chloride 0.9% IV (ANES) 1000 mL 2017-02-23 14:26:00 No Route: IV, Total Volume: 1,000, Start date: 02/23/17 8:26:00 RN CVOR, Stop date: 02/23/17 9:26:00 RN CVOR [facility] Isolyte S PH 7.4 (ANES) 1000 mL 2017-02-23 14:00:00 No Route: IV, Total Volume: 1,000, Start date: 02/23/17 8:00:00 RN CVOR, Stop date: 02/23/17 9:00:00 RN CVOR [facility] Saline Flush 0.9% 2017-02-23 03:00:00 No Notes: (Same as: BD Posiflush) [facility] Cefazolin 2017-02-23 01:00:00 No Notes: (Same As: Alayna Fitzgerald) MEDICATION WASTE Product Size: 1000 mg Product Wasted: ___ mg [facility] Mupirocin 0.02 MG/MG Topical Ointment 2017-02-23 01:00:00 N o Notes: 1/2 UD to each nostril. (Same As: Bactroban) [facility] Sodium Chloride 0.9% (titrate) 250 mL 2017-02-23 00:08:00 N o 250 mL, Rate: To prime line and flush remaining blood products., Dosing Weight 100.909, kg, Route: IV, Total Volume: 250, Start Date: 02/22/17 18:08:00 RN CVOR, Duration: 30 day, Stop date: 03/24/17 18:07:00 RN CVOR, Replace Every: 24 hr [facility] Saline Flush 0.9% 2017-02-23 00:08:00 No Notes: (Same as: BD Posiflush) [facility] Metoprolol 2017-02-23 00:08:00 No Notes: (Same as: Lopressor) Push over 2 minutes [facility] Codeine Phosphate 10 MG / Guaifenesin 300 MG Oral Tablet 2017-02-22 19:31:00 No Notes: (Same As: Robitussin AC) [facility] Acetaminophen 325 MG / Hydrocodone Bitartrate 5 MG Oral Tabl et [[place] 5/325] 2017-02-22 00:00:00 No Notes: (Same as: [place] 325/5) Do not exceed 4gm/day of acetaminophen. [facility] Maura nn Acetaminophen 325 MG / Hydrocodone Bitartrate 5 MG Oral Tabl et [[place] 5/325] 2017-02-21 19:33:00 No Notes: (Same as: [place] 325/5) Do not exceed 4gm/day of acetaminophen. [facility] Diphenhydramine 2017-02-21 17:41:00 No Notes: (Same as: Benadryl) [facility] atorvastatin 2017-02-21 03:00:00 No Notes: Same as Lipitor [facility] Furosemide 40 MG Oral Tablet 2017-02-20 23:00:00 No Notes: (Same as: Lasix) MEDICATION WASTE Product Size: 40 mg Product Wasted: 0___ mg [facility] Furosemide 40 MG Oral Tablet 2017-02-20 20:00:00 No Notes: (Same as: Lasix) May cause GI upset. Give with food or milk. [facility] Pneumovax 23 2017-02-20 18:30:00 No Notes: (Same as: Pneumovax 23) Refrigerate [facility] insulin glargine 2017-02-20 15:00:00 No Notes: (Same as: Lantus) Do not hold insulin without contacting prescriber WASTE: F/P - Black; E - Municipal Trash Bin "single patient use only" [facility] Saline Flush 0.9% 2017-02-20 15:00:00 No Notes: (Same as: BD Posiflush) [facility] influenza virus vaccine, inactivated 2017-02-20 15:00:00 No Notes: (Same as: Fluzone Quadrivalent, Fluarix Quadrivalent) For 3 years of age and older (0.5 mL IM) Shake well before use [facility] pneumococcal capsular polysaccharide typ e 1 vaccine / pneumococcal capsular polysaccharide type 10A vaccine / pneumococcal capsular polysaccharide type 11A vaccine / pneumococcal capsular polysaccharide type 12F vaccine / pneumococcal capsular polysacchar 2017-02-20 15:00:00 No Notes: (Same as: Pneumovax 23) Refrigerate [facility] iván sacubitril 24 MG / valsartan 26 MG Oral Tablet [Entresto] 2017-02-20 15:00:00 No Notes: (Same a s: Entresto) Avoid in patients with history of angioedema due to STEPHEN inhibitor or ARB therapy. Do not use concomitantly or within 36 hours of STEPHEN inhibitors Philip michel Valero metoprolol tartrate 2017-02-20 15:00:00 No Notes: (Same as: Lopressor) Kirstie [facility]inasann Insulin Glargine 100 UNT/ML Injectable Solution 2017-02-20 [...] PRN, Heparin Protocol, Start date: 02/20/17 6:28:00 RN CVOR Stop date: 03/22/17 6:27:00 RN CVOR Kirstie Valero Heparin 60 unit/kg Bolus (Heparin Dosing Weight) 2017-02-20 12:2 8:00 No Route: IVP, PRN, 6,100 unit, 6.1 mL, Drug form: INJ, PRN, Heparin Protocol, Start date: 02/20/17 6:28:00 RN CVOR Stop date: 03/22/17 6:27:00 RN CVOR [facility] Insulin Lispro 2017-02-20 12:25:00 No Notes: (Same as: Humalog ) Roll in palms of hands gently; Do not shake `vigorously. "Single Patient Use Only " WASTE: F/P - Black; E - Municipal Trash Bin Stable for 28 days at room temperature. Expires in days from Date [facility] Dextrose 50% Syringe 2017-02-20 12:25:00 No 12.5 gm, 25 mL, Route: IVP, Drug Form: INJ, Dosing Weight 100.909, kg, PRN, PRN Blood Glucose Results, Start date: 02/20/17 6:25:00 RN CVOR, Duration: 30 day, Stop date: 03/22/17 6:24:00 RN CVOR [facility] Glucagon 2017-02-20 12:25:00 No 1 mg, Route: IM, Drug form: PDR/INJ, PRN, Dosing Weight 100.909, kg, PRN Blood Glucose Results, Start date: 02/20/17 6:25:00 RN CVOR, Duration: 30 day, Stop date: 03/22/17 6:24:00 RN CVOR [facility] Calcium Gluconate 2017-02-20 12:19:00 No Notes: WASTE: F/P - Sink; E - Municipal Trash Bin [facility] Magnesium Sulfate 2017-02-20 12:19:00 No Notes: WASTE: F/P - Sink; E - Municipal [facility] Magnesium Oxide 2017-02-20 12:19:00 No Notes: (Same as: Mag-Ox 400) Magnesium oxide [id number] elemental magnesium Dose=____mg magnesium oxide (___mg elemental magnesium) [facility] Potassium Chloride 2017-02-20 12:19:00 No Notes: (Same as: K-Dur 20) "Do Not Crush" With food and full glass of water [facility] sodium phosphate 2017-02-20 12:19:00 No 30 mmol, 10 mL, Route: IVPB, PRN, Dosing Weight 100.909, kg, PRN Abnormal Lab Result, For NON-ICU Patients Only., Start date: 02/20/17 6:19:00 RN CVOR, Duration: 30 day, Stop date: 03/22/17 6:18:00 RN CVOR [facility] potassium phosphate 2017-02-20 12:19:00 No Notes: (Same as: K Phosphate.) 1 mMol phoshate has 1.47 mEq potassium Infuse over 4 hours [facility] potassium phosphate-sodium phosphate 250 mg-280 mg-160 mg oral powder for reconstitution 2017-02-20 12:19:00 No Notes: (Same as: Phos-NaK) Each 1.5 gm pkt has 250mg phosphorous. Mix w/2.5oz water and stir. [facility] Saline Flush 0.9% 2017-02-20 12:19:00 No Notes: (Same as: BD Posiflush) [facility] Ondansetron 2017-02-20 12:13:00 No Notes: (Same as: Zofran) MEDICATION WASTE Product Size: 4 mg Product Wasted: ___ mg [facility] Morphine 2017-02-20 12:13:00 No Not es: (Same as:MORPhine Sulfate) [facility] Acetaminophen 325 MG / Hydrocodone Juan trate 7.5 MG Oral Tablet [[place] 7.5/325] 2017-02-20 12:13:00 No Notes: Same as [place] 325-7.5mg Do not exceed 4gm/day of acetaminophen. Magnus Valero heparin 1000 units/mL injectable solution 2017-02-20 04:27:00 No 2,900 unit = 2.9 mL, IVP, PRN, PRN Heparin Protocol, 0 Refill(s) [facility] Glucagon 2017-02-20 04:27:00 No 1 mg, IM, PRN, PRN Blood Glucose Results, 0 Refill(s) [facility] Furosemide 40 MG Oral Tablet 2017-02-20 04:27:00 No 40 mg = 1 tab, PO, BID Diuretic, 0 Refill(s) [facility] sauloiván sacubitril 24 MG / valsartan 26 MG Oral Tablet [Entresto] 2017-02-20 04:27:00 No 1 tab, PO, Q12H, 0 Refill(s) [facility] ondansetron 2 mg/mL injectable solution 2017-02-20 04:27:00 No 4 mg = 2 mL, IVP, Q6H, PRN Nausea, 0 Refill(s) Kirstie Valero Morphine 2017-02-20 04:27:00 No 4 mg = 1 mL, IV, Q4H, PRN Pain Score 6-10, 0 Refill(s) Kirstie Salinasann Alprazolam 0.25 MG Oral Tablet [Xanax] 2017-02-20 [...] Hydrocodone Juan trate 7.5 MG Oral Tablet [[place] 7.5/325] 2017-02-20 04:27:00 No 1 tab, PO, [...] Hydrocodone Juan trate 7.5 MG Oral Tablet [[place] 7.5/325] 2017-02-20 00:07:00 No Notes: Same as [place] 325-7.5mg Do not exceed 4gm/day of acetaminophen. Magnus Valero Potassium Chloride 2017-02-19 22:25:00 No Notes: (Same as: K-Dur 20) "Do Not Crush" With food and full glass of water Kirstie Valero insulin glargine 2017-02-19 16:15:00 No Notes: (Same as: Lantus) Do not hold insulin without contacting prescriber WASTE: F/P - Black; E - Municipal Trash Bin "single patient use only" iKrstie Valero Magnesium Sulfate 2017-02-19 13:09:00 No Notes: WASTE: F/P - Sink; E - Municipal Trash Bin Kirstie Valero Morphine 2017-02-18 19:42:00 No Not es: (Same as:MORPhine Sulfate) Kirstie Valero Levemir 2017-02-18 16:30:00 No 10 unit, Route: SUB-Q, Daily, Dosing Weight 110.909, kg, Start date: 02/18/17 10:30:00 RN CVOR, Duration: 30 day, Stop date: 03/20/17 9:00:00 RN CVOR Kirstie minor insulin glargine 2017-02-18 16:21:00 No [...] food or milk (Same as: Xanax) Alistair Valero Lasix 2017-02-17 02:00:00 No Notes: (Same as: Lasix) May cause GI upset. Give with food or milk. Kirstie Valero Heparin 30 unit/kg Bolus (Heparin Dosing Weight) 2017-02-17 01:1 3:00 No Route: IVP, PRN, 2,900 unit, 2.9 mL, Drug form: INJ, PRN, Heparin Protocol, Start date: 02/16/17 19:13:00 RN CVOR Stop date: 03/18/17 19:12:00 RN CVOR, 30 day [facility] Heparin 60 unit/kg Bolus (Heparin Dosing Weight) 2017-02-17 01:1 3:00 No Route: IVP, PRN, 5,800 unit, 5.8 mL, Drug form: INJ, PRN, Heparin Protocol, Start date: 02/16/17 19:13:00 RN CVOR Stop date: 03/18/17 19:12:00 RN CVOR, 30 day [facility] Heparin - one time bolus for ACS 2017-02-17 01:13:00 No 4,000 unit, 4 mL, Route: IVP, Drug form: INJ, ONCE, Dosing Weight 110.909, kg, Priority: STAT, Start date: 02/16/17 19:13:00 RN CVOR, Stop date: 02/16/17 19:13:00 RN CVOR [facility] heparin additive 25,000 unit [10.371 uni t/kg/hr] + Premix Diluent Dextrose 5% 500 mL 2017-02-17 01:13:00 No 500 mL, Rate: 20 ml/hr, Infuse over: 25 hr, Route: IV, Dosing Weight 96.44 kg, Total Volume: 500 mL, Start date: 02/16/17 19:13:00 RN CVOR, Duration: 30 day, Stop date: 03/18/17 19:12:00 RN CVOR, 2.28, m2 [facility] Ondansetron 2017-02-16 20:20:00 No Notes: (Same as: Zofran) MEDICATION WASTE Product Size: 4 mg Product Wasted: ___ mg [facility] Azithromycin 2017-02-16 19:00:00 No Notes: (Same As: Zithromax IV) [facility] Rocephin 2017-02-16 19:00:00 No Notes: (Same As: Rocephin). Use with 100 mL NS and infuse over 30 min MEDICATION WASTE Product Size: 1000 mg Product Wasted: ___ mg [facility] Aspirin 2017-02-16 15:00:00 No Notes: Do not crush or chew. (Same As: Ecotrin) [facility] metoprolol tartrate 2017-02-16 03:00:00 No Notes: (Same as: Lopressor) [facility] Lipitor 2017-02-16 03:00:00 No Notes: (Same as: Lipitor) [facility] Morphine 2017-02-16 00:36:00 No Not es: (Same as:MORPhine Sulfate) [facility] Sodium Chloride 0.9% (Bolus) IV 2017-02-16 00:00:00 No 250 mL, 250 ml/hr, Infuse Over: 1 hr, Route: IV, 250, Drug form: INJ, ONCALL, Priority: Routine, Dosing Weight 97.727 kg, Start date: 02/15/17 18:00:00 RN CVOR, Duration: 1 doses or times [facility] Sodium Chloride 0.9% IV 750 mL 2017-02-15 23:59:00 No 750 mL, Rate: 75 ml/hr, Infuse over: 10 hr, Route: IV, Dosing Weight 97.727 kg, Total Volume: 750, Start date: 02/15/17 17:59:00 RN CVOR, Duration: 24 hr, Stop date: 02/16/17 17:58:00 RN CVOR, 2.29, m2 [facility] Insulin Lispro 2017-02-15 20:49:00 No Notes: Roll in palms of hands gently; Do not shake `vigorously. (Same as: Humalog ) "Single Patient Use Only " WASTE: F/P - Black; E - Municipal Trash Bin Stable for 28 days at room temperature. Expires in days from Date [facility] Glucagon 2017-02-15 20:49:00 No 1 mg, Route: IM, Drug form: PDR/INJ, PRN, Dosing Weight 97.727, kg, PRN Blood Glucose Results, Start date: 02/15/17 14:49:00 RN CVOR, Duration: 30 day, Stop date: 03/17/17 14:48:00 RN CVOR [facility] Dextrose 50% Syringe 2017-02-15 20:49:00 No 25 gm, 50 mL, Route: IVP, Drug Form: INJ, Dosing Weight 97.727, kg, PRN, PRN Blood Glucose Results, Start date: 02/15/17 14:49:00 RN CVOR, Duration: 30 day, Stop date: 03/17/17 14:48:00 RN CVOR [facility] Ceftriaxone 2017-02-15 17:43:00 No Notes: (Same As: Rocephin). Use with 100 mL NS and infuse over 30 min MEDICATION WASTE Product Size: 1000 mg Product Wasted: ___ mg [facility] Azithromycin 2017-02-15 17:43:00 No Notes: (Same As: Zithromax IV) [facility] Ondansetron 2017-02-15 16:58:00 No 4 mg, Route: IVP, Drug form: INJ, ONCE, Dosing Weight 97.727, kg, Priority: STAT, Start date: 02/15/17 10:58:00 RN CVOR, Stop date: 02/15/17 10:58:00 [facility] 2017-02-15 16:58:00 No 4 mg, Route: IVP, ONCE, Dosing Weight 97.727, kg, Priority: STAT, Start date: 02/15/17 10:58:00 RN CVOR, Stop date: 02/15/17 10:58:00 RN CVOR [facility] Aspirin 2017-02-15 15:50:00 No 325 mg, Route: PO, Drug form: TAB, ONCE, Dosing Weight 97.727, kg, Priority: STAT, Start date: 02/15/17 9:50:00 RN CVOR, Stop date: 02/15/17 9:50:00 RN CVOR [facility] salud Valero Aspirin (Aspir 81) 81 Mg Tablet. Aspirin (Aspir 81) 81 Mg Tablet. Yes [facility] Atorvastatin Calcium 20 Mg Tablet Atorvastatin Calcium 20 Mg Tablet Yes 20 Bedtime [facility] Biotin Biotin Yes 1 Daily [facility] Carvedilol 3.125 Mg Tablet Carvedilol 3.125 Mg Tablet Yes 3.125 Every 12 Hours [facility] Clopidogrel Bisulfate (Plavix) 75 Mg Tablet Clopidogre l Bisulfate (Plavix) 75 Mg Tablet Yes 75 Daily [facility] Glimepiride 2 Mg Tablet Glimepiride 2 Mg Tablet Yes 2 [facility] Multivitamin (Multi-Vitamin Daily) 1 Each Tablet Multi vitamin (Multi-Vitamin Daily) 1 Each Tablet Yes 1 Daily [facility] Acetaminophen/Codeine Phosphate (Tylenol # 3*) 1 Ea Ta b, 1 Tab Oral Acetaminophen/Codeine Phosphate (Tylenol # 3*) 1 Ea Tab, 1 Tab Oral 2018-12-09 00:00:00 No 1 Every 4 Hours as needed for [place] n [facility] Glimepiride (Amaryl) 2 Mg Tablet, 2 Mg Oral Glimepirid e (Amaryl) 2 Mg Tablet, 2 Mg Oral 2018-12-09 00:00:00 No 2 Daily [facility] Acetaminophen With Codeine (Tylenol With Codeine #3 Tablet) 1 Each Tablet, 300 Mg Oral Acetaminophen With Codeine (Tylenol With Codeine #3 Tablet) 1 Each Tablet, 300 Mg Oral 2018-09-13 00:00:00 No 300 Q4-6 Hr as needed for Pain [facility] Biotin 1 Mg Tablet, 1 Tab Oral Biotin 1 Mg Tablet, 1 Tab Oral 2018-09-13 00:00:00 No 1 Daily [facility] Multivitamin With Minerals (Multivitamin s With Minerals) 1 Each Tablet, 1 Tab Oral Multivitamin With Minerals (Multivitamin s With Minerals) 1 Each Tablet, 1 Tab Oral 2018-09-13 00:00:00 No 1 Daily [facility] Saw [place] Fruit (Saw [place]) 450 Mg Capsule, 1 Ca p Oral Saw [place] Fruit (Saw [place]) 450 Mg Capsule, 1 Cap Oral 2018-09-13 00:00:00 No 1 Daily [facility] Clindamycin Hcl 150 Mg Capsule, 300 Mg Oral Clindamyci n Hcl 150 Mg Capsule, 300 Mg Oral 2018-08-12 00:00:00 No 300 [facility] Levofloxacin (Levaquin) 500 Mg Tablet, 500 Mg Oral Lev ofloxacin (Levaquin) 500 Mg Tablet, 500 Mg Oral 2018-08-12 00:00:00 No 500 D aily [facility] Immunizations Ordered Immunization Name Filled Immunization Name Date Status Comments Source Pneumococcal Polysaccharide 2018-04-07 00:00:00 Completed Vance Mchugh Vital Signs Vital Name Observation Time Observation Value Comments Source Respitory Rate 2017-10-17 17:06:00 [facility] Systolic (mm Hg) 2017-10-17 17:06:00 Alistair [facility] Diastolic (mm Hg) 2017-10-17 17:06:00 [facility] Heart Rate 2017-10-17 17:06:00 [facility] Temperature Oral (F) 2017-10-17 17:06:00 97.7 F [facility] Systolic (mm Hg) 2017-10-17 12:38:00 Alistair rial [facility] Diastolic (mm Hg) 2017-10-17 12:38:00 [facility] [place] Heart Rate 2017-10-17 12:38:00 [facility] Respitory Rate 2017-10-17 12:38:00 [facility] Temperature Oral (F) 2017-10-17 12:38:00 99 F [facility] Temperature Oral (F) 2017-10-17 09:15:00 98.7 F [facility] Heart Rate 2017-10-17 09:15:00 [facility] Respitory Rate 2017-10-17 09:15:00 [facility] Systolic (mm Hg) 2017-10-17 09:15:00 [facility]air [facility] Diastolic (mm Hg) 2017-10-17 09:15:00 [facility] Weight 2017-10-16 09:43:00 [facility] Height 2017-10-16 09:43:00 193.04 cm [facility] BMI Calculated 2017-10-16 09:43:00 [facility] Weight 2017-10-16 06:02:00 [facility] BMI Calculated 2017-10-16 06:02:00 [facility] Height 2017-10-16 06:02:00 185.42 cm [facility] BMI Calculated 2017-08-31 20:15:00 [facility] Weight 2017-08-31 20:15:00 [facility] Height 2017-08-31 20:15:00 193.04 cm [facility] Height 2017-08-19 16:06:00 193.04 cm [facility] Weight 2017-08-19 16:06:00 [facility] BMI Calculated 2017-08-19 16:06:00 [facility] Respitory Rate 2017-08-19 16:06:00 [facility] Heart Rate 2017-08-19 16:06:00 [facility] Systolic (mm Hg) 2017-08-19 16:06:00 Alistair [facility] Diastolic (mm Hg) 2017-08-19 16:06:00 [facility] BMI Calculated 2017-06-03 18:26:00 [facility] Height 2017-06-03 18:26:00 193.04 cm [facility] Weight 2017-06-03 18:26:00 [facility] Systolic (mm Hg) 2017-06-03 18:26:00 Alistair rial [facility] Diastolic (mm Hg) 2017-06-03 18:26:00 [facility] Heart Rate 2017-06-03 18:26:00 [facility] Respitory Rate 2017-06-03 18:26:00 [facility] Height 2017-06-03 15:54:00 193.04 cm [facility] BMI Calculated 2017-06-03 15:54:00 [facility] Weight 2017-06-03 15:54:00 [facility] Weight 2017-05-20 18:54:00 [facility] BMI Calculated 2017-05-20 18:54:00 [facility] Height 2017-05-20 18:54:00 193.04 cm [facility] Systolic (mm Hg) 2017-05-20 18:54:00 Alistair rial [facility] Diastolic (mm Hg) 2017-05-20 18:54:00 [facility] Respitory Rate 2017-05-20 18:54:00 [facility] Heart Rate 2017-05-20 18:54:00 [facility] BMI Calculated 2017-04-13 20:32:00 [facility] Systolic (mm Hg) 2017-04-13 20:32:00 Alistair [facility] Diastolic (mm Hg) 2017-04-13 20:32:00 [facility] Heart Rate 2017-04-13 20:32:00 [facility] Temperature Oral (F) 2017-04-13 20:32:00 96.4 F [facility] Respitory Rate 2017-04-13 20:32:00 [facility] Weight 2017-04-13 20:32:00 [facility] Height 2017-04-13 20:32:00 193.04 cm [facility] Height 2017-04-05 19:50:00 193.04 cm [facility] Heart Rate 2017-04-05 19:50:00 [facility] Temperature Oral (F) 2017-04-05 19:50:00 96.8 F [facility] Respitory Rate 2017-04-05 19:50:00 [facility] Systolic (mm Hg) 2017-04-05 19:50:00 [facility]air [facility] Diastolic (mm Hg) 2017-04-05 19:50:00 [facility] Temperature Oral (F) 2017-03-17 16:42:00 97.0 F [facility] Heart Rate 2017-03-17 16:42:00 [facility] Systolic (mm Hg) 2017-03-17 16:42:00 Alistair [facility] Diastolic (mm Hg) 2017-03-17 16:42:00 [facility] BMI Calculated 2017-03-17 15:50:00 [facility] Weight 2017-03-17 15:50:00 [facility] Height 2017-03-17 15:50:00 193.04 cm [facility] Temperature Oral (F) 2017-03-17 15:50:00 97.0 F [facility] Systolic (mm Hg) 2017-03-17 15:50:00 [facility]air [facility] Diastolic (mm Hg) 2017-03-17 15:50:00 [facility] Respitory Rate 2017-03-17 15:50:00 [facility] Heart Rate 2017-03-17 15:50:00 [facility] Systolic (mm Hg) 2017-03-07 22:00:00 [facility]air [facility] Diastolic (mm Hg) 2017-03-07 22:00:00 [facility] Respitory Rate 2017-03-07 22:00:00 [facility] Respitory Rate 2017-03-07 21:00:00 [facility] Systolic (mm Hg) 2017-03-07 21:00:00 [facility]air [facility] Diastolic (mm Hg) 2017-03-07 21:00:00 [facility] Systolic (mm Hg) 2017-03-07 19:44:00 Alistair rial [facility] Diastolic (mm Hg) 2017-03-07 19:44:00 [facility] Temperature Oral (F) 2017-03-07 17:21:00 98 F [facility] Respitory Rate 2017-03-07 17:21:00 [facility] Temperature Oral (F) 2017-03-07 13:00:00 97.6 F [facility] Temperature Oral (F) 2017-03-07 12:00:00 96.8 F [facility] Height 2017-02-26 17:02:00 193.04 cm [facility] Height 2017-02-26 16:00:00 193.04 cm [facility] Height 2017-02-26 13:46:00 193.04 cm [facility] Heart Rate 2017-02-23 12:00:00 [facility] Heart Rate 2017-02-23 06:39:00 [facility] Heart Rate 2017-02-23 02:38:00 [facility] Weight 2017-02-20 08:11:00 [facility] BMI Calculated 2017-02-20 08:11:00 [facility] Temperature Oral (F) 2017-02-20 04:49:00 98 F [facility] Heart Rate 2017-02-20 04:49:00 [facility] Systolic (mm Hg) 2017-02-20 04:49:00 [facility]air [facility] Diastolic (mm Hg) 2017-02-20 04:49:00 [facility] Respitory Rate 2017-02-20 04:49:00 [facility] Systolic (mm Hg) 2017-02-20 01:33:00 Alistair [facility] Diastolic (mm Hg) 2017-02-20 01:33:00 [facility] Respitory Rate 2017-02-20 01:33:00 [facility] Temperature Oral (F) 2017-02-20 01:33:00 97.7 F [facility] Heart Rate 2017-02-20 01:33:00 [facility] Heart Rate 2017-02-19 23:38:00 [facility] Respitory Rate 2017-02-19 23:38:00 [facility] Systolic (mm Hg) 2017-02-19 23:38:00 Alistair [facility] Diastolic (mm Hg) 2017-02-19 23:38:00 [facility] Temperature Oral (F) 2017-02-19 23:38:00 97.6 F [facility] Weight 2017-02-19 17:00:00 [facility] Height 2017-02-16 04:04:00 193.04 cm [facility] BMI Calculated 2017-02-16 04:04:00 Philip pearson [facility] Weight 2017-02-16 04:04:00 [facility] Weight 2017-02-15 15:36:00 [facility] Height 2017-02-15 15:36:00 193.04 cm [facility] BMI Calculated 2017-02-15 15:36:00 Philip pearson [facility] Procedures Procedure Date / Time Performed Performing Clinician [facility] e INSERTION OF INFUSION DEV INTO SUP VENA CAVA, PERC APPROACH 2018-12-05 00:00:00 HUY COLBY [facility] Computed tomography of abdomen without contrast 2018-12-04 0 0:00:00 EVANGELIST PATTEN [facility] US abdomen complete 2018-11-30 00:00:00 GINO WALL [facility] CT of abdomen and pelvis without contrast 2018-11-27 00:00:00 TAHO WARE [facility] MRI non-joint region of extremity lower wo contrast 00:00:00 JUSTO RESENDEZ [facility] Ultrasound guidance for vascular access 2018-09-16 00:00:00 KAILA ULLOA GINO [facility] CT of abdomen and pelvis without contrast 2018-09-15 00:00:0 0 GINO WALL [facility] Ultrasound, renal 2018-09-15 00:00:00 KENDAL FERNANDEZ [facility] EXCISION OF R UP LEG SUBCU/FASCIA, OPEN APPROACH 2018-09-14 00:00:00 GINO WALL [facility] DRAIN R LOW LEG SUBCU/FASCIA W DRAIN DEV, OPEN 2018-09-14 00 :00:00 DUKE [facility] EXCISION OF R UP LEG SUBCU/FASCIA, OPEN APPROACH 2018-08-10 00:00:00 YSABEL WALLFIRIO [facility] CT extremity lower right w contrast 2018-08-09 00:00:00 HAVEN SHARIF [facility] CABG x 5 - Coronary artery bypass grafts x 5 2017-02-23 06:00:00 [facility] Biliary lithotripsy [facility] Partial resection of colon [facility] PCL - Percutaneous lithotripsy of renal calculus [facility] Placement of stent in cardiac conduit [facility] Plan of Care Planned Activity Planned Date Details Comments Source Future Scheduled Test 2023-04-07 00:00:00 65+ PNEUMOCOCCAL V ACCINE (1 of 1 - PPSV23) [code = 65+ PNEUMOCOCCAL VACCINE (1 of 1 - PPSV23)] [facility] Future Scheduled Test 2019-09-09 00:00:00 INFLUENZA VACCINE [code = INFLUENZA VACCINE] [facility] Future Scheduled Test 2003-08-07 00:00:00 COLONOSCOPY SCREEN ING [code = COLONOSCOPY SCREENING] [facility] Scheduled Test 2003-08-07 00:00:00 SHINGLES VACCINES (#1) [code = SHINGLES VACCINES (#1)] [facility] Encounters Start Date/Time End Date/Time En[facility] ID Source 2019-02-23 20:43:00 2019-02-24 13:00:00 Discharged Inpatient 1 TU PADILLA [facility] [id number] [facility] 2018-11-27 18:52:00 2018-12-09 13:57:00 Discharged Inpatient 1 CRISTY WINSTON [facility] [id number] [facility] 2018-11-08 12:29:00 2018-11-08 23:59:00 Outpatient Justo Resendez [facility] [id number] 2018-11-08 12:29:00 2018-11-08 12:29:00 [id number] 2018-09-13 16:33:00 2018-09-19 17:00:00 Discharged Inpatient 3 GINO WALL [facility] [id number] [facility] 2018-08-09 00:27:00 2018-08-12 18:47:00 Discharged Inpatient 1 PATTEN, JORDYNMORENITA [facility] [id number] [facility] 2017-11-08 12:00:00 2017-11-08 12:00:00 Outpatient RoseanneAdam marinelli [facility] [id number] 2017-10-16 00:52:00 2017-10-17 17:39:00 Outpatient Alfonzo Hernandez [facility] [id number] 2017-08-31 15:08:00 2017-08-31 23:59:00 Outpatient RoseanneAdam marinelli [facility] [id number] 2017-08-31 15:08:00 2017-08-31 23:59:00 Outpatient RoseanneAdam marinelli [facility] [id number] 2017-08-19 11:03:00 2017-08-19 23:59:00 Outpatient RoseanneAdam marinelli [facility] [id number] 2017-08-19 11:03:00 2017-08-19 11:03:00 Outpatient [id number] [facility] 2017-06-03 12:03:00 2017-06-03 23:59:00 Outpatient RoseanneAdam marinelli [facility] [id number] 2017-06-03 10:43:00 2017-06-03 23:59:00 Outpatient RoseanneAdam marinelli [facility] [id number] 2017-05-20 12:52:00 2017-05-20 23:59:00 Outpatient RoseanneAdam marinelli [facility] [id number] 2017-05-20 12:52:00 2017-05-20 23:59:00 Outpatient RoseanneAdam marinelli [facility] [id number] 2017-04-24 13:41:00 2017-04-24 23:59:00 Outpatient RoseanneAdam marinelli [id number] 2017-04-16 12:30:00 2017-04-16 12:30:00 Outpatient Roseanne Adammichael Ivory [id number] 2017-04-13 14:11:00 2017-04-13 23:59:00 Outpatient Contreras Bower [facility] [id number] 2017-04-13 14:11:00 2017-04-13 23:59:00 Outpatient Contreras Bower [facility] [id number] 2017-04-13 08:24:00 2017-04-13 23:59:00 Outpatient Denzel Croninmichael Ivory [id number] 2017-04-13 08:24:00 2017-04-13 23:59:00 Outpatient Roseanne Adammichael Ivory [id number] 2017-04-05 14:58:00 2017-04-05 23:59:00 Outpatient Denzel Croninmichael Ivory [facility] [id number] 2017-04-05 13:52:00 2017-04-05 23:59:00 Outpatient Roseanne, Adam Ivory [facility] [id number] 2017-03-25 10:40:00 2017-03-25 10:40:00 Outpatient Gregoric, Parth Wilkins [facility] [id number] 2017-03-17 09:38:00 2017-03-17 23:59:00 Outpatient Murphy Puentes [facility] [id number] 2017-02-20 01:59:00 2017-03-07 17:20:00 Outpatient Greggoric, Parth Hanseno [facility] [id number] 2017-02-15 09:31:00 2017-02-19 01:30:00 Outpatient Murphy Read [id number] 2017-02-15 09:31:00 2017-02-19 01:30:00 Outpatient Murphy Read [id number] Results Test Description Test Time Test Comments Results Result Comments Source US ABDOMEN LIMITED 2019-12-14 13:06:00 [facility] : 1955 Sex: M [place] [address] Patient Name: ANKUR DEGROOT MR #: [id number] : 1955 Age/Sex: 64/M Req #: [id number] [facility] Physician: CRISTY WINSTON MD Ordered by: Yonatan Nunes [employer] Report #: [id number] Location: [facility] Room/Bed: [facility] Procedure: [id number] US/US ABDOMEN LIMITED Exam Date: 12/14/19 Exam Time: 1211 REPORT STATUS: Signed EXAM: US ABDOMEN LIMITED DATE: 12/14/2019 12:11 PM INDICATION: ABD PAIN [id number] COMPARISON: CT scan dated 12/13/2019 TECHNIQUE: Transverse [...] NP CT ABDOMEN/PELVIS W 2019-12-13 14:02:00 [facility] 1955 Sex: M [facility] [address] [place] [address] Patient Name: ANKUR DEGROOT MR #: [id number] : 1955 Age/Sex: 64/M [facility] #: [id number] [facility] Physician: CRISTY WINSTON MD Ordered by: TU PADILLA MD Report #: [id number] Location: [facility] Room/Bed: [place] [address] Procedure: [id number] CT/CT ABDOMEN/PELVIS W Exam Date: 12/13/19 Exam [...] MD CT CHEST W 2019-12-13 13:57:00 [facility] : 1955 Sex: M [facility] [address] [place] [address] Patient Name: ANKUR DEGROOT MR #: [id number] : 1955 Age/Sex: 64/M Req #: [id number] Adm Physician: CRISTY WINSTON MD Ordered by: TU PADILLA MD Report #: [id number] Location: [facility] Room/Bed: [place] [address] Procedure: [id number] CT/CT CHEST W Exam Date: 12/13/19 Exam [...] GALLOWAY MD 1401 Transcribed By: MAGALY on 12/13/19 1401 COPY TO: TU PADILLA MD CHEST SINGLE (PORTABLE) 2019-12-13 11:31:00 [facility] : 1955 Sex: M [facility] [address] [place] [address] Patient Name: ANKUR DEGROOT MR #: [id number] : 1955 Age/Sex: 64/M Req #: [id number] Adm Physician: Ordered by: THAO LY MD Report #: [id number] Location: ER Room/Bed: Procedure: [id number] DX/CHEST SINGLE (PORTABLE) Exam Date: 12/13/19 Exam [...] MD 113 Transcribed By: MAGALY on 12/13/19 1132 COPY TO: THAO LY MD Bedside Glucose 2019-02-24 11:58:00 Test Item Bedside Glucose (test code = 73443-8) 164 70-120 H Meter ID: [id number] Hospital Atascosatool Occult Blood 2019-02-24 10:48:00* Test Item Value Reference Range Interpretation Comments Stool Occult Blood (test code = 2335-8) POSITIVE NEGATIVE H [facility] HospitalThyroid Stimulating Hormone (TSH) 2019-02-24 06:43:00* Test Item Value Reference Range Interpretation Comments Thyroid Stimulating Hormone (TSH) (test code = 58639-6) 1.823 0.350-4.940 [facility]aodium Esaak2835-82-58 06:24:00* Test Item Value Reference Range Interpretation Comments Sodium Level (test code = 2951-2) 139 136-145 [facility] HospitalPotassium Grroz4071-08-68 06:24:00* Test Item Value Reference Range Interpretation Comments Potassium Level (test code = 2823-3) 3.9 3.5-5.1 [facility] HospitalChloride Caobc2300-02-11 06:24:00* Test Item Value Reference Range Interpretation Comments Chloride Level (test code = 2075-0) 104 98-107 [facility] HospitalCarbon Dioxide Phycg4482-84-64 06:24:00* Test Item Value Reference Range Interpretation Comments Carbon Dioxide Level (test code = 2028-9) 25 22-29 [facility] HospitalAnion Mun5544-25-48 06:24:00* Test Item Value Reference Range Interpretation Comments Anion Gap (test code = 02354-6) 13.9 8-16 [facility] HospitalBlood Urea Wbjaugmx4207-60-68 06:24:00* Test Item Value Reference Range Interpretation Comments Blood Urea Nitrogen (test code = 3094-0) 23 7-26 [facility] HospitalCreatinine2020-01-17 06:24:00* Test Item Value Reference Range Interpretation Comments Creatinine (test code = 2160-0) 1.52 0.72-1.25 H [facility] HospitalBUN/Creatinine Yxwzl9587-90-83 06:24:00* Test Item Value Reference Range Interpretation Comments BUN/Creatinine Ratio (test code = 3097-3) 15 6-25 [facility] HospitalEstimat Glomerular Filtration Rate 2019-02-24 06:24:00* Test Item Value Reference Range Interpretation Comments Estimat Glomerular Filtration Rate (test code = 941138973) 46 >60 L Ranges were taken from the National Kidney Disease Education Program and the [facility] Kidney Foundation literature.Reference ranges:60 or greater: Fyleng80-67 ( for 3 consecutive months): Chronic kidney disease 15 or less: Kidney failureHouston Methodist Baytown HospitalGlucose Ntllc2636-15-08 06:24:00* Test Item Value Reference Range Interpretation Comments Glucose Level (test code = MSX8779) 124 74-118 H [facility] HospitalCalcium Pjwrf2105-71-18 06:24:00* Test Item Value Reference Range Interpretation Comments Calcium Level (test code = 58929-7) 8.9 8.4-10.2 [facility] HospitalTotal Xbzzgqiwv1110-91-42 06:24:00* Test Item Value Reference Range Interpretation Comments Total Bilirubin (test code = 1975-2) 1.8 0.2-1.2 H [facility] HospitalAspartate Amino Transf (AST/SGOT) 2019-02-24 06:24:00* Test Item Value Reference Range Interpretation Comments Aspartate Amino Transf (AST/SGOT) (test code = Aspartate Amino Transf (AST/SGOT)) 101 5-34 H [facility] HospitalAlanine Aminotransferase (ALT/SGPT) 2019-02-24 06:24:00* Test Item Value Reference Range Interpretation Comments Alanine Aminotransferase (ALT/SGPT) (test code = 1742-6) 77 0-55 H [facility] HospitalTotal Sugilvf5052-40-85 06:24:00* Test Item Value Reference Range Interpretation Comments Total Protein (test code = 2885-2) 6.3 6.5-8.1 L [facility] HospitalAlbumin2020-01-17 06:24:00* Test Item Value Reference Range Interpretation Comments Albumin (test code = 1751-7) 3.3 3.5-5.0 L [facility] HospitalGlobulin2020-01-17 06:24:00* Test Item Value Reference Range Interpretation Comments Globulin (test code = 23648-3) 3.0 2.3-3.5 [facility] HospitalAlbumin/Globulin Dergx5686-20-19 06:24:00 * Test Item Value Reference Range Interpretation Comments Albumin/Globulin Ratio (test code = 1759-0) 1.1 0.8-2.0 [facility] HospitalAlkaline Qvztredwozs7995-79-54 06:24:00* Test Item Value Reference Range Interpretation Comments Alkaline Phosphatase (test code = 6768-6) 57 40-150 [facility] HospitalTriglycerides Vftob1067-49-92 06:24:00* Test Item Value Reference Range Interpretation Comments Triglycerides Level (test code = 2571-8) 112 0-149 [facility] HospitalCholesterol Btxga4622-19-06 06:24:00* Test Item Value Reference Range Interpretation Comments Cholesterol Level (test code = 2093-3) 167 0-199 Less than 200 mg/dL Low Zedr139 - 239 mg/dL Borderline Lsfi437 m g/dl and greater High Risk [facility] HospitalLDL Nugczjmehnl3809-40-69 06:24:00* Test Item Value Reference Range Interpretation Comments LDL Cholesterol (test code = 2089-1) 79 60-130 [facility] HospitalHDL Ysgnlthhybq0684-35-42 06:24:00* Test Item Value Reference Range Interpretation Comments HDL Cholesterol (test code = 2085-9) 66 40-60 H [facility] HospitalCholesterol/HDL Obfuw4499-11-35 06:24:00 * Test Item Value Reference Range Interpretation Comments Cholesterol/HDL Ratio (test code = 9830-1) 2.5 3.9-4.7 L [facility] HospitalLipase2020-01-17 06:24:00* Test Item Value Reference Range Interpretation Comments Lipase (test code = 3040-3) 181 8-78 H [facility] HospitalWhite Blood Nnjuz8934-84-49 06:11:00* Test Item Value Reference Range Interpretation Comments White Blood Count (test code = 6690-2) 7.68 4.8-10.8 [facility] HospitalRed Blood Iqjkn0648-48-79 06:11:00* Test Item Value Reference Range Interpretation Comments Red Blood Count (test code = 789-8) 3.90 4.3-5.7 L [facility] HospitalHemoglobin2020-01-17 06:11:00* Test Item Value Reference Range Interpretation Comments Hemoglobin (test code = 28276-8) 14.3 14.0-18.0 [facility] HospitalHematocrit2020-01-17 06:11:00* Test Item Value Reference Range Interpretation Comments Hematocrit (test code = 4544-3) 41.7 38.2-49.6 [facility] HospitalMean Corpuscular Yqadhe2596-02-80 06:11:00* Test Item Value Reference Range Interpretation Comments Mean Corpuscular Volume (test code = 787-2) 106.9 81-99 H [facility] HospitalMean Corpuscular Vagpxqvgxs1993-58-96 06:11:00* Test Item Value Reference Range Interpretation Comments Mean Corpuscular Hemoglobin (test code = 785-6) 36.7 28-32 H [facility] HospitalMean Corpuscular Hemoglobin Concent 2019-02-24 06:11:00* Test Item Value Reference Range Interpretation Comments Mean Corpuscular Hemoglobin Concent (test code = 786-4) 34.3 31-35 [facility] HospitalRed Cell Distribution Suhie9515-43-93 06:11:00* Test Item Value Reference Range Interpretation Comments Red Cell Distribution Width (test code = 83948-8) 16.3 11.7 -14.4 H [facility] HospitalPlatelet Ekbrw7291-47-42 06:11:00* Test Item Value Reference Range Interpretation Comments Platelet Count (test code = 777-3) 171 140-360 [facility] HospitalNeutrophils (%) (Auto)2019-02-24 06:11:00 * Test Item Value Reference Range Interpretation Comments Neutrophils (%) (Auto) (test code = 76782-0) 52.6 38.7-80.0 [facility] HospitalLymphocytes (%) (Auto)2019-02-24 06:11:00 * Test Item Value Reference Range Interpretation Comments Lymphocytes (%) (Auto) (test code = 736-9) 29.4 18.0-39.1 [facility] HospitalMonocytes (%) (Auto)2019-02-24 06:11:00* Test Item Value Reference Range Interpretation Comments Monocytes (%) (Auto) (test code = 5905-5) 12.5 4.4-11.3 H [facility] HospitalEosinophils (%) (Auto)2019-02-24 06:11:00 * Test Item Value Reference Range Interpretation Comments Eosinophils (%) (Auto) (test code = 713-8) 4.0 0.0-6.0 [facility] HospitalBasophils (%) (Auto)2019-02-24 06:11:00* Test Item Value Reference Range Interpretation Comments Basophils (%) (Auto) (test code = 706-2) 1.2 0.0-1.0 H [facility] HospitalIM GRANULOCYTES %2019-02-24 06:11:00* Test Item Value Reference Range Interpretation Comments IM GRANULOCYTES % (test code = IM GRANULOCYTES %) 0.3 0.0- 1.0 [facility] HospitalNeutrophils # (Auto)2019-02-24 06:11:00* Test Item Value Reference Range Interpretation Comments Neutrophils # (Auto) (test code = 751-8) 4.0 2.1-6.9 [facility] HospitalLymphocytes # (Auto)2019-02-24 06:11:00* Test Item Value Reference Range Interpretation Comments Lymphocytes # (Auto) (test code = 67849-1) 2.3 1.0-3.2 [facility] HospitalMonocytes # (Auto)2019-02-24 06:11:00* Test Item Value Reference Range Interpretation Comments Monocytes # (Auto) (test code = 742-7) 1.0 0.2-0.8 H [facility] HospitalEosinophils # (Auto)2019-02-24 06:11:00* Test Item Value Reference Range Interpretation Comments Eosinophils # (Auto) (test code = 711-2) 0.3 0.0-0.4 [facility] HospitalBasophils # (Auto)2019-02-24 06:11:00* Test Item Value Reference Range Interpretation Comments Basophils # (Auto) (test code = 704-7) 0.1 0.0-0.1 [facility] HospitalAbsolute Immature Granulocyte (auto 2019-02-24 06:11:00* Test Item Value Reference Range Interpretation Comments Absolute Immature Granulocyte (auto (riley t code = Absolute Immature Granulocyte (auto) 0.02 0-0.1 [facility] HospitalB-Type Natriuretic Mydbtju9052-37-88 18:00:00* Test Item Value Reference Range Interpretation Comments B-Type Natriuretic Peptide (test code = 96114-8) 261.6 0-100 H [facility] HospitalCreatine Kinase WN1482-08-15 18:00:00* Test Item Value Reference Range Interpretation Comments Creatine Kinase MB (test code = 00141-4) 2.30 0-5.0 [facility] HospitalTroponin B7559-76-18 18:00:00* Test Item Value Reference Range Interpretation Comments Troponin I (test code = VIO1726) 0.028 0-0.300 [facility] HospitalCHEST SINGLE (PORTABLE)2019-02-23 17:55:00 [place] [address] Patient Name: ANKUR DEGROOT MR #: [id number] : 1955 Age/Sex: 63/M Req #: [id number] Adm Physician: Ordered by: AAKASH DEY SENIOR POLICY ASSOCIATE Report #: [id number] Location: ER Room/Bed: Procedure: [id number] DX/CHEST SINGLE (PORTABLE) Exam Date: 02/23/19 Exam Time: 1734 REPORT STATUS: Signed EXAMINATION: CHEST SINGLE (PORTABLE) INDICATION: Chest pain ERMD ORDER [id number] Y COMPARISON: 12/05/2018 FI NDINGS: TUBES [...] on 02/23/191756 C OPY TO: AAKASH DEY SENIOR POLICY ASSOCIATE Amylase Jndrl1876-43-35 17:47:00* Test Item Value Reference Range Interpretation Comments Amylase Level (test code = 1798-8) 128 25-125 H [facility] HospitalCreatine Hplvsq1364-49-93 17:46:00* Test Item Value Reference Range Interpretation Comments Creatine Kinase (test code = 2157-6) 62 30-200 [facility] HospitalProthrombin Jcwo0637-77-12 17:36:00* Test Item Value Reference Range Interpretation Comments Prothrombin Time (test code = 5902-2) 13.7 11.9-14.5 [facility] HospitalProthromb Time International Ratio 2019-02-23 17:36:00* Test Item Value Reference Range Interpretation Comments Prothromb Time International Ratio (test code = 6301-6) 1.00 Oral Anticoagulant Therapy INR Values:1. Low Intensity Therapy 1.5 - 2.02 . Moderate Intensity Therapy 2.0 - 3.03. High Intensity Therapy(1) 2.5 - 3. 54. High Intensity Therapy(2) 3.0 - 4.05. Panic Value INR > 5.0 [facility] HospitalActivated Partial Thromboplast Time 2019-02-23 17:36:00* Test Item Value Reference Range Interpretation Comments Activated Partial Thromboplast Time (test code = 94280-7) 29.0 23.8-35.5 [facility] HospitalBedside Yyivqiv2258-63-49 11:57:00* Test Item Value Reference Range Interpretation Comments Bedside Glucose (test code = 91473-2) 234 70-120 H Meter ID: [id number] Regional Medical CenterTriglycerides Level 2018-12-09 10:53:00* Test Item Value Reference Range Interpretation Comments Triglycerides Level (test code = 2571-8) 151 0-149 H [facility] HospitalCholesterol Dvgup4286-00-64 10:53:00* Test Item Value Reference Range Interpretation Comments Cholesterol Level (test code = 2093-3) 127 0-199 Less than 200 mg/dL Low Orrt207 - 239 mg/dL Borderline Efqz548 m g/dl and greater High Risk [facility] HospitalLDL Lslucsmypnu7726-33-18 10:53:00* Test Item Value Reference Range Interpretation Comments LDL Cholesterol (test code = 2089-1) 74 60-130 [facility] HospitalHDL Bmzfitmfkdd1652-48-67 10:53:00* Test Item Value Reference Range Interpretation Comments HDL Cholesterol (test code = 2085-9) 23 40-60 L [facility] HospitalCholesterol/HDL Nfela5356-84-76 10:53:00 * Test Item Value Reference Range Interpretation Comments Cholesterol/HDL Ratio (test code = 9830-1) 5.5 3.9-4.7 H [facility]aodium Pwpnz9826-98-32 05:50:00* Test Item Value Reference Range Interpretation Comments Sodium Level (test code = 2951-2) 131 136-145 L [facility] HospitalPotassium Vgvfy8743-33-54 05:50:00* Test Item Value Reference Range Interpretation Comments Potassium Level (test code = 2823-3) 3.7 3.5-5.1 [facility] HospitalChloride Yzexu7948-57-22 05:50:00* Test Item Value Reference Range Interpretation Comments Chloride Level (test code = 2075-0) 98 98-107 [facility] HospitalCarbon Dioxide Jepyk5063-07-73 05:50:00* Test Item Value Reference Range Interpretation Comments Carbon Dioxide Level (test code = 2028-9) 24 22-29 [facility] HospitalAnion Mth1086-50-19 05:50:00* Test Item Value Reference Range Interpretation Comments Anion Gap (test code = 89369-4) 12.7 8-16 [facility] HospitalBlood Urea Zavujfhr4862-40-21 05:50:00* Test Item Value Reference Range Interpretation Comments Blood Urea Nitrogen (test code = 3094-0) 11 7-26 [facility] HospitalCreatinine2019-11-01 05:50:00* Test Item Value Reference Range Interpretation Comments Creatinine (test code = 2160-0) 1.64 0.72-1.25 H [facility] HospitalBUN/Creatinine Rkemb3661-22-72 05:50:00* Test Item Value Reference Range Interpretation Comments BUN/Creatinine Ratio (test code = 3097-3) 7 6-25 [facility] HospitalEstimat Glomerular Filtration Rate 2018-12-09 05:50:00* Test Item Value Reference Range Interpretation Comments Estimat Glomerular Filtration Rate (test code = 272345718) 42 >60 L Ranges were taken from the National Kidney Disease Education Program and the [facility] Kidney Foundation literature.Reference ranges:60 or greater: Kaqsaw95-29 ( for 3 consecutive months): Chronic kidney disease 15 or less: Kidney failureHouston Methodist Baytown HospitalGlucose Papja1425-22-83 05:50:00* Test Item Value Reference Range Interpretation Comments Glucose Level (test code = VFV6971) 186 74-118 H [facility] HospitalCalcium Vlylz9258-10-41 05:50:00* Test Item Value Reference Range Interpretation Comments Calcium Level (test code = 54639-6) 9.3 8.4-10.2 [facility] HospitalMagnesium Pnpjl6892-71-03 05:50:00* Test Item Value Reference Range Interpretation Comments Magnesium Level (test code = 74343-9) 1.5 1.3-2.1 [facility] HospitalLipase2019-11-01 05:50:00* Test Item Value Reference Range Interpretation Comments Lipase (test code = 3040-3) 461 8-78 H [facility] HospitalMagnesium Euiyn9383-34-00 05:50:00* Test Item Value Reference Range Interpretation Comments Magnesium Level (test code = 08795-7) 1.5 1.3-2.1 [facility] HospitalWhite Blood Vqzxq9674-58-03 05:19:00* Test Item Value Reference Range Interpretation Comments White Blood Count (test code = 6690-2) 9.19 4.8-10.8 [facility] HospitalRed Blood Qttak1775-47-32 05:19:00* Test Item Value Reference Range Interpretation Comments Red Blood Count (test code = 789-8) 3.99 4.3-5.7 L [facility] HospitalHemoglobin2019-11-01 05:19:00* Test Item Value Reference Range Interpretation Comments Hemoglobin (test code = 35541-9) 14.1 14.0-18.0 [facility] HospitalHematocrit2019-11-01 05:19:00* Test Item Value Reference Range Interpretation Comments Hematocrit (test code = 4544-3) 41.1 38.2-49.6 [facility] HospitalMean Corpuscular Esapdk7152-18-80 05:19:00* Test Item Value Reference Range Interpretation Comments Mean Corpuscular Volume (test code = 787-2) 103.0 81-99 H [facility] HospitalMean Corpuscular Wtgzuucfdn6270-24-66 05:19:00* Test Item Value Reference Range Interpretation Comments Mean Corpuscular Hemoglobin (test code = 785-6) 35.3 28-32 H [facility] HospitalMean Corpuscular Hemoglobin Concent 2018-12-09 05:19:00* Test Item Value Reference Range Interpretation Comments Mean Corpuscular Hemoglobin Concent (test code = 786-4) 34.3 31-35 [facility] HospitalRed Cell Distribution Hydgh9825-20-51 05:19:00* Test Item Value Reference Range Interpretation Comments Red Cell Distribution Width (test code = 47102-7) 12.7 11.7 -14.4 [facility] HospitalPlatelet Bqvwe9176-76-10 05:19:00* Test Item Value Reference Range Interpretation Comments Platelet Count (test code = 777-3) 358 140-360 [facility] HospitalNeutrophils (%) (Auto)2018-12-09 05:19:00 * Test Item Value Reference Range Interpretation Comments Neutrophils (%) (Auto) (test code = 90200-0) 53.8 38.7-80.0 [facility] HospitalLymphocytes (%) (Auto)2018-12-09 05:19:00 * Test Item Value Reference Range Interpretation Comments Lymphocytes (%) (Auto) (test code = 736-9) 27.1 18.0-39.1 [facility] HospitalMonocytes (%) (Auto)2018-12-09 05:19:00* Test Item Value Reference Range Interpretation Comments Monocytes (%) (Auto) (test code = 5905-5) 11.3 4.4-11.3 [facility] HospitalEosinophils (%) (Auto)2018-12-09 05:19:00 * Test Item Value Reference Range Interpretation Comments Eosinophils (%) (Auto) (test code = 713-8) 6.6 0.0-6.0 H [facility] HospitalBasophils (%) (Auto)2018-12-09 05:19:00* Test Item Value Reference Range Interpretation Comments Basophils (%) (Auto) (test code = 706-2) 0.9 0.0-1.0 [facility] HospitalIM GRANULOCYTES %2018-12-09 05:19:00* Test Item Value Reference Range Interpretation Comments IM GRANULOCYTES % (test code = IM GRANULOCYTES %) 0.3 0.0- 1.0 [facility] HospitalNeutrophils # (Auto)2018-12-09 05:19:00* Test Item Value Reference Range Interpretation Comments Neutrophils # (Auto) (test code = 751-8) 4.9 2.1-6.9 [facility] HospitalLymphocytes # (Auto)2018-12-09 05:19:00* Test Item Value Reference Range Interpretation Comments Lymphocytes # (Auto) (test code = 37639-9) 2.5 1.0-3.2 [facility] HospitalMonocytes # (Auto)2018-12-09 05:19:00* Test Item Value Reference Range Interpretation Comments Monocytes # (Auto) (test code = 742-7) 1.0 0.2-0.8 H [facility] HospitalEosinophils # (Auto)2018-12-09 05:19:00* Test Item Value Reference Range Interpretation Comments Eosinophils # (Auto) (test code = 711-2) 0.6 0.0-0.4 H [facility] HospitalBasophils # (Auto)2018-12-09 05:19:00* Test Item Value Reference Range Interpretation Comments Basophils # (Auto) (test code = 704-7) 0.1 0.0-0.1 [facility] HospitalAbsolute Immature Granulocyte (auto 2018-12-09 05:19:00* Test Item Value Reference Range Interpretation Comments Absolute Immature Granulocyte (auto (riley t code = Absolute Immature Granulocyte (auto) 0.03 0-0.1 [facility] HospitalCA Ljmljby7613-97-81 11:29:00* Test Item Value Reference Range Interpretation Comments CA 19-9 Antigen (test code = 02130-7) 40 0-35 [facility] Electrochemiluminescence Immunoassay(ECLIA)Values obtained wit h different assay methods or kits cannotbe used interchangeably. Results cannot be interpreted asabsolute evidence of the presence or absence of malignantdisea se.Performed at: [address] [id number] [employer] Crewman: John Paul Gómez MD, Phone: [phone] Methodist Baytown HospitalCA 19-9 Abpwkzy1627-40-66 11:29:00* Test Item Value Reference Range Interpretation Comments CA 19-9 Antigen (test code = 11407-8) 40 0-35 [facility] Electrochemiluminescence Immunoassay(ECLIA)Values obtained wit h different assay methods or kits cannotbe used interchangeably. Results cannot be interpreted asabsolute evidence of the presence or absence of malignantdisea se.Performed at: [address] [id number] [employer] Crewman: John Paul Gómez MD, Phone: [phone] Methodist Baytown HospitalTotal Jpvwaxmvn5262-74-32 03:45:00* Test Item Value Reference Range Interpretation Comments Total Bilirubin (test code = 1975-2) 0.7 0.2-1.2 [facility] HospitalDirect Bxtpcdera1416-17-03 03:45:00* Test Item Value Reference Range Interpretation Comments Direct Bilirubin (test code = 23043-3) 0.4 0.0-0.5 [facility] HospitalAspartate Amino Transf (AST/SGOT) 2018-12-06 03:45:00* Test Item Value Reference Range Interpretation Comments Aspartate Amino Transf (AST/SGOT) (test code = Aspartate Amino Transf (AST/SGOT)) 33 5-34 [facility] HospitalAlanine Aminotransferase (ALT/SGPT) 2018-12-06 03:45:00* Test Item Value Reference Range Interpretation Comments Alanine Aminotransferase (ALT/SGPT) (test code = 1742-6) 22 0-55 [facility] HospitalTotal Kytztsr4193-15-61 03:45:00* Test Item Value Reference Range Interpretation Comments Total Protein (test code = 2885-2) 6.3 6.5-8.1 L [facility] HospitalAlbumin2019-10-29 03:45:00* Test Item Value Reference Range Interpretation Comments Albumin (test code = 1751-7) 2.5 3.5-5.0 L [facility] HospitalAlkaline Iitpvdxaelu3939-82-20 03:45:00* Test Item Value Reference Range Interpretation Comments Alkaline Phosphatase (test code = 6768-6) 41 40-150 [facility] HospitalDirect Gjqdyvntu0412-71-37 03:45:00* Test Item Value Reference Range Interpretation Comments Direct Bilirubin (test code = 60681-5) 0.4 0.0-0.5 [facility] HospitalPlatelet Morphology Ohvumro8685-43-99 06:49:00* Test Item Value Reference Range Interpretation Comments Platelet Morphology Comment (test code = 51130-3) FEW LARGE [facility] HospitalRed Cell Morphology Dpkbifk7252-29-72 06:49:00* Test Item Value Reference Range Interpretation Comments Red Cell Morphology Comment (test code = 6742-1) NORMAL [facility] HospitalPlatelet Morphology Lznlhag7072-20-12 06:49:00* Test Item Value Reference Range Interpretation Comments Platelet Morphology Comment (test code = 44383-7) FEW LARGE [facility] HospitalRed Cell Morphology Dacdpyi4407-90-38 06:49:00* Test Item Value Reference Range Interpretation Comments Red Cell Morphology Comment (test code = 6742-1) NORMAL [facility] HospitalCHEST XRAY LINE OWPNYKNSU6923-61-11 00:30:00 [facility] [address] [place] [address] Patient Name: ANKUR DEGROOT MR #: [id number] : 1955 Age/Sex: 63/M Req #: [id number] Adm Physician: CRISTY WINSTON MD Ordered by: CRISTY WINSTON MD Report #: [id number] Location: MED/SURG Room/Bed: [facility] Procedure: [id number] DX /CHEST XRAY LINE PLACEMENT Exam Date: [...] COPY TO: STEPHEN WINSTON MD CT ABDOMEN CI8663-55-81 16:37:00 [place] [address] Patient Name: ANKUR DEGROOT MR #: [id number] : 1955 Age/Sex: 63/M Req #: [id number] Adm Physician: CRISTY WINSTON MD Ordered by: EVANGELIST PATTEN MD Report #: [id number] Location: MED/SURG Room/Bed: 108 Procedure: [id number] C T/CT ABDOMEN WO Exam Date: 12/04/18 [...] Differential Total Cells Counted (test code = Differlynne tial Total Cells Counted) 100 [facility] HospitalNeutrophils % (Manual)2018-12-04 06:31:00 * Test Item Value Reference Range Interpretation Comments Neutrophils % (Manual) (test code = 71669-8) 68 40-74 [facility]Lymphocytes % (Manual)2018-12-04 06:31:00 * Test Item Value Reference Range Interpretation Comments Lymphocytes % (Manual) (test code = 737-7) 12 19-48 L [facility] HospitalMonocytes % (Manual)2018-12-04 06:31:00* Test Item Value Reference Range Interpretation Comments Monocytes % (Manual) (test code = 744-3) 15 3.4-9.0 H [facility] HospitalEosinophils % (Manual)2018-12-04 06:31:00 * Test Item Value Reference Range Interpretation Comments Eosinophils % (Manual) (test code = 714-6) 3 0-7 [facility] HospitalBasophils % (Manual)2018-12-04 06:31:00* Test Item Value Reference Range Interpretation Comments Basophils % (Manual) (test code = 45986-3) 1 0-1.5 [facility] HospitalReactive Qnhtrgssyle5834-71-74 06:31:00* Test Item Value Reference Range Interpretation Comments Reactive Lymphocytes (test code = 18809-7) 1 [facility] HospitalPlatelet Dszylsxh2155-33-64 06:31:00* Test Item Value Reference Range Interpretation Comments Platelet Estimate (test code = 33480-4) ADEQUATE [facility] HospitalDifferential Total Cells Counted 2018-12-04 06:31:00* Test Item Value Reference Range Interpretation Comments Differential Total Cells Counted (test code = Differlynne tial Total Cells Counted) 100 [facility] HospitalNeutrophils % (Manual)2018-12-04 06:31:00 * Test Item Value Reference Range Interpretation Comments Neutrophils % (Manual) (test code = 76319-3) 68 40-74 [facility] HospitalLymphocytes % (Manual)2018-12-04 06:31:00 * Test Item Value Reference Range Interpretation Comments Lymphocytes % (Manual) (test code = 737-7) 12 19-48 L [facility] HospitalMonocytes % (Manual)2018-12-04 06:31:00* Test Item Value Reference Range Interpretation Comments Monocytes % (Manual) (test code = 744-3) 15 3.4-9.0 H [facility] HospitalEosinophils % (Manual)2018-12-04 06:31:00 * Test Item Value Reference Range Interpretation Comments Eosinophils % (Manual) (test code = 714-6) 3 0-7 [facility] HospitalBasophils % (Manual)2018-12-04 06:31:00* Test Item Value Reference Range Interpretation Comments Basophils % (Manual) (test code = 14363-0) 1 0-1.5 [facility] HospitalReactive Lctbpmbtzvr3621-94-41 06:31:00* Test Item Value Reference Range Interpretation Comments Reactive Lymphocytes (test code = 08678-6) 1 [facility] HospitalPlatelet Zcitghzb1426-36-58 06:31:00* Test Item Value Reference Range Interpretation Comments Platelet Estimate (test code = 14502-0) ADEQUATE [facility] HospitalABDOMEN-1VIEW (KUB)2018-12-03 12:55:00 [facility] [address] [address] Patient Name: ANKUR DEGROOT MR #: [id number] : 1955 Age/Sex: 63/M Req #: [id number] Adm Physician: CRISTY WINSTON MD Ordered by: CHLOE PADILLA MD Report #: [id number] Location: MED/SURG Room/Bed: [facility] Procedure: [id number] DX/ABDOMEN-1VIEW ([facility]) Exam Date: 12/03/18 Exam Time : 1100 REPORT STATUS: Signed EXA M: Abdomen 2 radiographs INDICATION: ABD PAIN [id number] 1100 Y COMPARISON: CT dated 11/27/2018 FINDINGS: [...] 12:59 PM Dictated By: ALVINO SOTO MD 1259 Transcribed By: MAGALY on 12/03/18 1259 COPY TO: CHLOE PADILLA MD Blood Uxgzwww2204-40-24 07:00:00* Test Item Value Reference Range Interpretation Comments Blood Culture (test code = 46152022) NO GROWTH AFTER 5 DAYS, FINAL REPORT [facility] HospitalBlood Qqifinj0927-80-94 07:00:00* Test Item Value Reference Range Interpretation Comments Blood Culture (test code = 54683769) NO GROWTH AFTER 5 DAYS, FINAL REPORT [facility] HospitalGlobulin2019-10-26 06:50:00* Test Item Value Reference Range Interpretation Comments Globulin (test code = 57338-9) 3.8 2.3-3.5 H [facility] HospitalAlbumin/Globulin Ehivr0742-46-03 06:50:00 * Test Item Value Reference Range Interpretation Comments Albumin/Globulin Ratio (test code = 1759-0) 0.6 0.8-2.0 L [facility] HospitalClostridium Difficile Toxin A & B 2018-12-02 13:04:00* Test Item Value Reference Range Interpretation Comments Clostridium Difficile Toxin A & B (test code = 361131090) NEGATIVE NEGATIVE Testing on stool aspirate specimens is outside cell coverer claims since specime n type not validated on this assay.[facility] Clostridium Difficile Toxin A & I4090-10-22 13:04:00* Test Item Value Reference Range Interpretation Comments Clostridium Difficile Toxin A & B (test code = 389969498) NEGATIVE NEGATIVE Testing on stool aspirate specimens is outside cell coverer claims since specime n type not validated on this assay.[facility] Rzuoegdhlorn1570-90-36 10:55:00* Test Item Value Reference Range Interpretation Comments Anisocytosis (test code = 702-1) SLIGHT [facility] HospitalAnisocytosis2019-10-25 10:55:00* Test Item Value Reference Range Interpretation Comments Anisocytosis (test code = 702-1) SLIGHT [facility] HospitalUS ABDOMEN MPDINIAB5060-89-47 10:41:00 [facility] [address] [address] Patient Name: ANKUR DEGROOT MR #: [id number] : 1955 Age/Sex: 63/M Req #: [id number] Adm Physician: CRISTY WINSTON MD Ordered by: GINO WALL MD Report #: [id number] Location: MED/SURG Room/Bed: [facility] Procedure: 1023-00 01 US/US ABDOMEN COMPLETE [...] By: MAGALY on 11/30/18 1045 COPY TO: GION WALL MD Amylase Lbiaw6536-18-27 07:56:00* Test Item Value Reference Range Interpretation Comments Amylase Level (test code = 1798-8) 172 25-125 H [facility] HospitalPhosphorus Umoua1955-56-85 07:32:00* Test Item Value Reference Range Interpretation Comments Phosphorus Level (test code = TBE5751) 2.0 2.3-4.7 L [facility] HospitalPhosphorus Qrufl4735-32-57 07:32:00* Test Item Value Reference Range Interpretation Comments Phosphorus Level (test code = XUP9396) 2.0 2.3-4.7 L [facility] HospitalThyroid Stimulating Hormone (TSH) 2018-11-29 08:09:00* Test Item Value Reference Range Interpretation Comments Thyroid Stimulating Hormone (TSH) (test code = 51252-0) 0.764 0.350-4.940 [facility] HospitalHemoglobin A1c Tumadke1435-90-66 07:39:00 * Test Item Value Reference Range Interpretation Comments Hemoglobin A1c Percent (test code = Hemoglobin A1c Percent) 5.3 4.0-7.0 [facility] HospitalHemoglobin A1c Mwphwof5609-80-17 07:39:00 * Test Item Value Reference Range Interpretation Comments Hemoglobin A1c Percent (test code = Hemoglobin A1c Percent) 5.3 4.0-7.0 [facility] HospitalUrine VRJ6804-01-35 16:20:00* Test Item Value Reference Range Interpretation Comments Urine WBC (test code = 5821-4) NONE 0-5 [facility] HospitalUrine BJD5901-05-99 16:20:00* Test Item Value Reference Range Interpretation Comments Urine RBC (test code = 82840-4) 0-5 0-5 [facility] HospitalUrine Vtgbznnj1337-03-67 16:20:00* Test Item Value Reference Range Interpretation Comments Urine Bacteria (test code = 53425-3) NONE NONE [facility] HospitalUrine Epithelial Owwqn1067-80-22 16:20:00 * Test Item Value Reference Range Interpretation Comments Urine Epithelial Cells (test code = 43221-6) FEW NONE [facility] HospitalUrine UBT7894-75-80 16:20:00* Test Item Value Reference Range Interpretation Comments Urine WBC (test code = 5821-4) NONE 0-5 [facility] HospitalUrine OHS4594-36-79 16:20:00* Test Item Value Reference Range Interpretation Comments Urine RBC (test code = 80880-4) 0-5 0-5 [facility] HospitalUrine Okeaqsqu6988-26-46 16:20:00* Test Item Value Reference Range Interpretation Comments Urine Bacteria (test code = 47540-6) NONE NONE [facility] HospitalUrine Epithelial Aicrz8244-28-58 16:20:00 * Test Item Value Reference Range Interpretation Comments Urine Epithelial Cells (test code = 77366-7) FEW NONE [facility] HospitalUrine Uipaw4786-66-64 16:12:00* Test Item Value Reference Range Interpretation Comments Urine Color (test code = 5778-6) STRAW YELLOW [facility] HospitalUrine Ufixdfc5796-55-88 16:12:00* Test Item Value Reference Range Interpretation Comments Urine Clarity (test code = 93300-8) SL CLOUDY CLEAR H [facility] HospitalUrine Specific Iggculr8759-91-50 16:12:00 * Test Item Value Reference Range Interpretation Comments Urine Specific [place] (test code = 5811-5) 1.025 1.010-1.02 5 [facility] HospitalUrine jI5844-59-63 16:12:00* Test Item Value Reference Range Interpretation Comments Urine pH (test code = 08133-3) 6 5-7 [facility] HospitalUrine Leukocyte Mkrvboub2404-42-64 16:12:00* Test Item Value Reference Range Interpretation Comments Urine Leukocyte Esterase (test code = 06253-2) NEGATIVE NEGATIV E [facility] HospitalUrine Plyfwca4815-45-04 16:12:00* Test Item Value Reference Range Interpretation Comments Urine Nitrite (test code = 63071-7) NEGATIVE NEGATIVE [facility] HospitalUrine Snozobk6707-50-47 16:12:00* Test Item Value Reference Range Interpretation Comments Urine Protein (test code = 85900-2) NEGATIVE NEGATIVE [facility] HospitalUrine Glucose (UA)2018-11-28 16:12:00* Test Item Value Reference Range Interpretation Comments Urine Glucose (UA) (test code = 09047-7) NEGATIVE NEGATIVE [facility] HospitalUrine Jjipais1055-88-94 16:12:00* Test Item Value Reference Range Interpretation Comments Urine Ketones (test code = 71708-7) NEGATIVE NEGATIVE [facility] HospitalUrine Kexxknrthzkv7975-76-56 16:12:00* Test Item Value Reference Range Interpretation Comments Urine Urobilinogen (test code = 27621-8) 0.2 0.2-1 [facility] HospitalUrine Ywagyuqww3835-49-09 16:12:00* Test Item Value Reference Range Interpretation Comments Urine Bilirubin (test code = 1977-8) NEGATIVE NEGATIVE [facility] HospitalUrine Xmwxc5076-29-22 16:12:00* Test Item Value Reference Range Interpretation Comments Urine Blood (test code = 76800-1) 1+ NEGATIVE [facility] HospitalUrine Dqley3889-06-99 16:12:00* Test Item Value Reference Range Interpretation Comments Urine Color (test code = 5778-6) STRAW YELLOW [facility] HospitalUrine Apjbshu5580-20-89 16:12:00* Test Item Value Reference Range Interpretation Comments Urine Clarity (test code = 60138-6) SL CLOUDY CLEAR H [facility] HospitalUrine Specific Kmyjebg5359-58-78 16:12:00 * Test Item Value Reference Range Interpretation Comments Urine Specific [place] (test code = 5811-5) 1.025 1.010-1.02 5 [facility] HospitalUrine eP3027-72-85 16:12:00* Test Item Value Reference Range Interpretation Comments Urine pH (test code = 21699-9) 6 5-7 [facility] HospitalUrine Leukocyte Jwbowoar6845-94-63 16:12:00* Test Item Value Reference Range Interpretation Comments Urine Leukocyte Esterase (test code = 22553-8) NEGATIVE NEGATIV E [facility] HospitalUrine Pmmqeeo1055-80-48 16:12:00* Test Item Value Reference Range Interpretation Comments Urine Nitrite (test code = 47098-7) NEGATIVE NEGATIVE [facility] HospitalUrine Rainzbd4392-52-44 16:12:00* Test Item Value Reference Range Interpretation Comments Urine Protein (test code = 93698-3) NEGATIVE NEGATIVE [facility] HospitalUrine Glucose (UA)2018-11-28 16:12:00* Test Item Value Reference Range Interpretation Comments Urine Glucose (UA) (test code = 66987-2) NEGATIVE NEGATIVE [facility] HospitalUrine Lobtmdt2000-32-66 16:12:00* Test Item Value Reference Range Interpretation Comments Urine Ketones (test code = 71066-5) NEGATIVE NEGATIVE [facility] Fkdiidmqvhyp2399-34-61 16:12:00* Test Item Value Reference Range Interpretation Comments Urine Urobilinogen (test code = 33375-9) 0.2 0.2-1 [facility] HospitalUrine Achecmphu7448-37-27 16:12:00* Test Item Value Reference Range Interpretation Comments Urine Bilirubin (test code = 1977-8) NEGATIVE NEGATIVE [facility] HospitalUrine Cilfk1131-38-81 16:12:00* Test Item Value Reference Range Interpretation Comments Urine Blood (test code = 37487-7) 1+ NEGATIVE [facility] HospitalCreatine Klwgwz3320-61-71 15:00:00* Test Item Value Reference Range Interpretation Comments Creatine Kinase (test code = 2157-6) 27 30-200 L [facility] HospitalCreatine Kinase ND6269-52-25 15:00:00* Test Item Value Reference Range Interpretation Comments Creatine Kinase MB (test code = 77729-7) 2.10 0-5.0 [facility] HospitalTroponin O8142-50-58 15:00:00* Test Item Value Reference Range Interpretation Comments Troponin I (test code = IJC7185) 0.030 0-0.300 [facility]LV[facility] BU0417-38-36 18:16:00 [facility] [address] [address] Patient Name: ANKUR DEGROOT MR #: [id number] : 1955 Age/Sex: 63/M Req #: [id number] Adm Physician: Ordered by: THAO LY MD Report #: [id number] Location: ER Room/Bed: Procedure: [id number] CT/ CT ABDOMEN/PELVIS WO Exam Date: 11/27/18 [...] COPY TO: THAO LY MD B-Type Natriuretic Gswtuxi8580-37-56 17:05:00* Test Item Value Reference Range Interpretation Comments B-Type Natriuretic Peptide (test code = 03833-3) 130.7 0-100 H [facility] HospitalCHES SINGLE (PORTABLE)2018-11-27 16:49:[address] [address] Patient Name: ANKUR DEGROOT MR #: [id number] : 1955 Age/Sex: 63/M Req #: [id number] Adm Physician: Ordered by: THAO LY MD Report #: [id number] Location: ER Room/Bed: Procedure: [id number] DX/ CHEST SINGLE (PORTABLE) Exam Date: 11/27/18 [...] IMPRESSION: No acute radiographic abnormality. Signed by: Dr. Gulshan Kerr D.O., M.M.M. on 2018 4:50 PM Dictated By: GULSHAN KERR DO 49 Transcribed By: MAGALY on 11/27/181649 COPY TO: THAO LY MD Prothrombin Osex0010-82-06 16:34:00* Test Item Value Reference Range Interpretation Comments Prothrombin Time (test code = 5902-2) 13.4 11.9-14.5 [facility] HospitalProthromb Time International Ratio 2018-11-27 16:34:00* Test Item Value Reference Range Interpretation Comments Prothromb Time International Ratio (test code = 6301-6) 0.97 Oral Anticoagulant Therapy INR Values:1. Low Intensity Therapy 1.5 - 2.02 . Moderate Intensity Therapy 2.0 - 3.03. High Intensity Therapy(1) 2.5 - 3. 54. High Intensity Therapy(2) 3.0 - 4.05. Panic Value INR > 5.0 [facility] HospitalActivated Partial Thromboplast Time 2018-11-27 16:34:00* Test Item Value Reference Range Interpretation Comments Activated Partial Thromboplast Time (test code = 97062-9) 27.3 23.8-35.5 [facility] HospitalGLUBED2019-10-04 17:08:00* Test Item Value Reference Range Interpretation Comments GLUBED (test code = GLUBED) 149 mg/dL 74-106 H Performed by certified screw machine operator swiss type at [facility] CBC W/AUTO CMTZ1405-17-42 08:45:00* Test Item Value Reference Range Interpretation [...] NRBC#) 0.00 K/mm3 0.0-0.1 N CBC W/AUTO FYRU0071-28-52 08:44:00* Test Item Value Reference Range Interpretation [...] code = BA#) K/mm3 0.0-0.2 COMPREHENSIVE METABOLIC OWHXM3377-01-25 08:44:00* Test Item Value Reference Range Interpretation [...] due to change in reagent. COMPREHENSIVE METABOLIC HHTUS8898-39-44 08:37:00* Test Item Value Reference Range Interpretation [...] TOTAL (test code = ALKP) IUnit/L 45-117 SFNZES6026-80-47 06:09:00* Test Item Value Reference Range Interpretation Comments GLUBED (test code = GLUBED) 119 mg/dL 74-106 H Performed by certified screw machine operator swiss type at [facility] ZPKWHV5615-08-84 21:00:00* Test Item Value Reference Range Interpretation Comments GLUBED (test code = GLUBED) 113 mg/dL 74-106 H Performed by certified screw machine operator swiss type at [facility] UEXIYC5467-16-27 16:23:00* Test Item Value Reference Range Interpretation Comments GLUBED (test code = GLUBED) 135 mg/dL 74-106 H Performed by certified screw machine operator swiss type at [facility] COOHSJ3297-66-63 12:56:00* Test Item Value Reference Range Interpretation Comments GLUBED (test code = GLUBED) 99 mg/dL 74-106 N Performed by certified screw machine operator swiss type at [facility] PASSNV3152-87-38 07:51:00* Test Item Value Reference Range Interpretation Comments GLUBED (test code = GLUBED) 126 mg/dL 74-106 H Performed by certified screw machine operator swiss type at [facility] COMPREHENSIVE METABOLIC UOCWU8186-16-08 10:02:00* Test Item Value Reference Range Interpretation [...] result is a direct measurement.========= THYROID STIMULATING FCAVGJI0175-52-00 10:02:00* Test Item Value Reference Range Interpretation Comments THYROID STIMULATING HORMONE (test code = TSH) 1.280 uIU/mL 0.36-3.7 4 N TSH REFERENCE RANGES: EUTHYROID: 0.35 - 4.3 mIU/mL HYPO : > 5.5 mIU/mL HYPER : < 0.35 mIU/mL PROTHROMBIN DHTG2745-79-25 09:51:00* Test Item Value Reference Range Interpretation [...] Mechanical prosthetic heart valves (2.5-3.5) THROMBOPLASTIN TIME VAMLASA2726-22-42 09:51:00* Test Item Value Reference Range Interpretation Comments THROMBOPLASTIN TIME PARTIAL (test code = PTT) 33.0 seconds 25.0-36. 5 N COMPREHENSIVE METABOLIC NWEMR6700-11-72 09:47:00* Test Item Value Reference Range Interpretation [...] code = LDL) mg/dL 100-129 THYROID STIMULATING KJHCFWI3738-03-65 09:47:00* Test Item Value Reference Range Interpretation Comments THYROID STIMULATING HORMONE (test code = TSH) uIU/mL 0.36-3.7 4 CBC W/AUTO ZGEJ3006-42-63 09:45:00* Test Item Value Reference Range Interpretation [...] NRBC#) 0.02 K/mm3 0.0-0.1 N CBC W/AUTO JAGQ6465-30-80 09:39:00* Test Item Value Reference Range Interpretation [...] = BA#) K/mm3 0.0-0.2 Urine Calcium 24 Kbyc8738-70-50 07:14:00* Test Item Value Reference Range Interpretation Comments Urine Calcium 24 Hour (test code = 6874-2) 124.1 [id number] [place], [place] [id number] Director: John Paul Gómez MD, Ph one: [phone] [facility] HospitalUrine Calcium 24 Hour 2018-09-20 07:14:00* Test Item Value Reference Range Interpretation Comments Urine Calcium 24 Hour (test code = 6874-2) 124.[address] [id number] Director: John Paul Gómez MD, Ph one: [phone] Methodist Bay[facility] HospitalUrine Jewqeyr7697-50-31 07:11:00* Test Item Value Reference Range Interpretation Comments Urine Oxalate (test code = 2700-3) 11 Undefined [facility] HospitalUrine Oxalate 24 Ozyt9535-17-71 07:11:00 * Test Item Value Reference Range Interpretation Comments Urine Oxalate 24 Hour (test code = 2701-1) 40 7-44 [facility] Citric Essd5751-13-69 07:11:00* Test Item Value Reference Range Interpretation Comments Urine Citric Acid (test code = 03757-9) 15 Undefined [facility] HospitalUrine Citric Zxus4571-55-93 07:11:00* Test Item Value Reference Range Interpretation Comments Urine Citric Acid (test code = 6687-8) 55 320-1240 L This test was developed and its performance characteristicsdetermined by [facility] . It has not been cleared orapproved by the Food and Drug Administration.Perform ed at: [address] [id number] Direct or: John Paul Gómez MD, Phone: [phone] at: [address] [id number] Director: Judy Monroy MD, Phone: [phone] Methodist Baytown HospitalUrine Fydnaea9863-40-07 07:11:00 * Test Item Value Reference Range Interpretation Comments Urine Oxalate (test code = 2700-3) 11 Undefined [facility] HospitalUrine Oxalate 24 Hpsn7544-55-09 07:11:00 * Test Item Value Reference Range Interpretation Comments Urine Oxalate 24 Hour (test code = 2701-1) 40 7-44 [facility] HospitalUrine Citric Qayb2199-75-03 07:11:00* Test Item Value Reference Range Interpretation Comments Urine Citric Acid (test code = 91300-4) 15 Undefined [facility] HospitalUrine Citric Efbv4177-41-77 07:11:00* Test Item Value Reference Range Interpretation Comments Urine Citric Acid (test code = 6687-8) 55 320-1240 L This test was developed and its performance characteristicsdetermined by [facility] . It has not been cleared orapproved by the Food and Drug Administration.Perform ed at: - [facility] [id number] Direct or: John Paul Gómez MD, Phone: [phone] at: - [facility] [id number] Director: Judy Monroy MD, Phone: [phone] [facility] HospitalBedside Wgdsgjo7170-13-08 15:39:00* Test Item Value Reference Range Interpretation Comments Bedside Glucose (test code = 60942-9) 159 70-120 H Meter ID: [id number] [facility] HospitalUS GUIDANCE FOR VASCULAR TBPTV4597-31-17 15:22:00 [address] [address] Patient Name: ANKUR DEGROOT MR #: [id number] : 1955 Age/Sex: 63/M Req #: [id number] Adm Physician: GINO WALL MD Ordered by: GINO WALL MD Report #: [id number] Location: MED/SURG Room/Bed: [facility] Procedure: US/US GUIDANCE FOR VASCULAR ACCES Exam Date: 09/16/18 Exam Time: [address] ATUS: Signed PROCEDURE: Tunneled central venous catheter placement Proc edural Personnel Attending physician(s): Ulises Galloway MD Fellow physician(s): None Resident physician(s): None Advanced practice provider(s): None P re-procedure diagnosis: Bacteremia Post-procedure diagnosis: Same Indication : Administration of skilled nursing antibiotics Additional clinical history: None Complications: No [...] Proline power injectable single lumen Catheter size (Citizen Of [place]): 5 Catheter flush: Normal saline Closure A [...] COPY TO: GINO WALL MD Urine Calcium mg/uD7336-86-01 14:33:00* Test Item Value Reference Range Interpretation Comments Urine Calcium mg/dL (test code = 73198-2) 3.4 Not Estab. [facility] HospitalUrine Calcium 24 Iwqk7847-57-80 14:33:00 * Test Item Value Reference Range Interpretation Comments Urine Calcium 24 Hour (test code = 6874-2) Comment 100.0-300.0 No total volume submitted. Unable to calculate 24 hourresult.Performed at: - [facility] [id number] Director: John Paul yan MD, Phone: [phone] Methodist Baytown HospitalUrine Calcium mg/oQ0887-76-40 14:33:00* Test Item Value Reference Range Interpretation Comments Urine Calcium mg/dL (test code = 40117-6) 3.4 Not Estab. [facility] HospitalUrine Calcium mg/uA9824-89-58 14:33:00* Test Item Value Reference Range Interpretation Comments Urine Calcium mg/dL (test code = 19024-2) 3.4 Not Estab. [facility] HospitalWound Hrbstvd9959-09-14 07:59:00* Test Item Value Reference Range Interpretation Comments Wound Culture (test code = 6462-6) Organism: STAPHYLOCOCCUS AUREUS [facility] Qickczr4299-22-74 07:59:00* Test Item Value Reference Range Interpretation Comments Wound Culture (test code = 6462-6) No Result Data Provided [facility] Htxvngi4402-63-48 07:59:00* Test Item Value Reference Range Interpretation Comments Wound Culture (test code = 6462-6) No Result Data Provided [facility] Dzrot7321-74-47 06:18:00* Test Item Value Reference Range Interpretation Comments Sodium Level (test code = 2951-2) 137 136-145 [facility] HospitalPotassium Hiccu7089-65-26 06:18:00* Test Item Value Reference Range Interpretation Comments Potassium Level (test code = 2823-3) 4.4 3.5-5.1 [facility] HospitalChloride Uwcds0911-96-99 06:18:00* Test Item Value Reference Range Interpretation Comments Chloride Level (test code = 2075-0) 101 98-107 [facility] HospitalCarbon Dioxide Alqnm7139-87-73 06:18:00* Test Item Value Reference Range Interpretation Comments Carbon Dioxide Level (test code = 2028-9) 27 22-29 [facility] HospitalAnion Mye1841-74-65 06:18:00* Test Item Value Reference Range Interpretation Comments Anion Gap (test code = 88675-6) 13.4 8-16 [facility] HospitalBlood Urea Bupsioss5206-44-87 06:18:00* Test Item Value Reference Range Interpretation Comments Blood Urea Nitrogen (test code = 3094-0) 16 7-26 [facility] HospitalCreatinine2019-08-10 06:18:00* Test Item Value Reference Range Interpretation Comments Creatinine (test code = 2160-0) 1.61 0.72-1.25 H [facility] HospitalBUN/Creatinine Mmppj4268-33-50 06:18:00* Test Item Value Reference Range Interpretation Comments BUN/Creatinine Ratio (test code = 3097-3) 10 6-25 [facility] HospitalEstimat Glomerular Filtration Rate 2018-09-17 06:18:00* Test Item Value Reference Range Interpretation Comments Estimat Glomerular Filtration Rate (test code = 126553403) 43 >60 L Ranges were taken from the National Kidney Disease Education Program and the [facility] Kidney Foundation literature.Reference ranges:60 or greater: Hjfcnm90-39 ( for 3 consecutive months): Chronic kidney disease 15 or less: Kidney failureHouston [facility] HospitalGlucose Dujco0817-71-15 06:18:00* Test Item Value Reference Range Interpretation Comments Glucose Level (test code = ZBN9157) 118 74-118 [facility] HospitalCalcium Eqykt1721-18-54 06:18:00* Test Item Value Reference Range Interpretation Comments Calcium Level (test code = 56639-1) 9.2 8.4-10.2 [facility] HospitalTotal Nrpzpcoem7531-64-41 06:18:00* Test Item Value Reference Range Interpretation Comments Total Bilirubin (test code = 1975-2) 0.3 0.2-1.2 [facility] HospitalAspartate Amino Transf (AST/SGOT) 2018-09-17 06:18:00* Test Item Value Reference Range Interpretation Comments Aspartate Amino Transf (AST/SGOT) (test code = Aspartate Amino Transf (AST/SGOT)) 33 5-34 [facility] HospitalAlanine Aminotransferase (ALT/SGPT) 2018-09-17 06:18:00* Test Item Value Reference Range Interpretation Comments Alanine Aminotransferase (ALT/SGPT) (test code = 1742-6) 32 0-55 [facility] HospitalTotal Jihzdnt2656-60-28 06:18:00* Test Item Value Reference Range Interpretation Comments Total Protein (test code = 2885-2) 6.5 6.5-8.1 [facility] HospitalAlbumin2019-08-10 06:18:00* Test Item Value Reference Range Interpretation Comments Albumin (test code = 1751-7) 2.7 3.5-5.0 L [facility] HospitalGlobulin2019-08-10 06:18:00* Test Item Value Reference Range Interpretation Comments Globulin (test code = 83037-5) 3.8 2.3-3.5 H [facility] HospitalAlbumin/Globulin Qumlc0390-44-34 06:18:00 * Test Item Value Reference Range Interpretation Comments Albumin/Globulin Ratio (test code = 1759-0) 0.7 0.8-2.0 L [facility] HospitalAlkaline Pzgfnjmusyc1639-67-86 06:18:00* Test Item Value Reference Range Interpretation Comments Alkaline Phosphatase (test code = 6768-6) 44 40-150 [facility] HospitalB-Type Natriuretic Opantno4219-19-79 06:14:00* Test Item Value Reference Range Interpretation Comments B-Type Natriuretic Peptide (test code = 60882-9) 462.6 0-100 H [facility] HospitalParathyroid Neulyiz9582-39-50 06:12:00* Test Item Value Reference Range Interpretation Comments Parathyroid Hormone (test code = 2731-8) 26 15-65 [facility] HospitalCalcium (Send out)2018-09-17 06:12:00* Test Item Value Reference Range Interpretation Comments Calcium (Send out) (test code = 63041-3) 9.3 8.6-10.2 [facility] HospitalParathyroid Hormone Interpretation 2018-09-17 06:12:00* Test Item Value Reference Range Interpretation Comments Parathyroid Hormone Interpretation (test code = Parathyroid Hormone Interpretation) Comment . Interpretation Intact PTH Calcium (pg/mL) (mg/dL)Normal 15 - 65 8.6 - 10.2Pr imary Hyperparathyroidism >65 >10.2Secondary Hyperparathyroidism >65 <10.2Non-Parathyroid Hypercalcemia <65 >10.2Hypoparathyroidism <15 < 8.6Non- Parathyroid Hypocalcemia 15 - 65 < 8.6Performed at: - [facility] [id number] Director: John Paul Gómez MD, Phone: [phone] at: - [facility] [id number] Director: Judy Monroy MD, Phone: [phone] [facility] HospitalParathyroid Esovjyo0971-89-96 06:12:00* Test Item Value Reference Range Interpretation Comments Parathyroid Hormone (test code = 2731-8) 26 15-65 [facility] HospitalCalcium (Send out)2018-09-17 06:12:00* Test Item Value Reference Range Interpretation Comments Calcium (Send out) (test code = 28066-3) 9.3 8.6-10.2 [facility] HospitalParathyroid Hormone Interpretation 2018-09-17 06:12:00* Test Item Value Reference Range Interpretation Comments Parathyroid Hormone Interpretation (test code = Parathyroid Hormone Interpretation) Comment . Interpretation Intact PTH Calcium (pg/mL) (mg/dL)Normal 15 - 65 8.6 - 10.2Pr imary Hyperparathyroidism >65 >10.2Secondary Hyperparathyroidism >65 <10.2Non-Parathyroid Hypercalcemia <65 >10.2Hypoparathyroidism <15 < 8.6Non- Parathyroid Hypocalcemia 15 - 65 < 8.6Performed at: - [facility] [address] [id number] Director: John Paul Gómez MD, Phone: [phone] at: - [facility] [address] [id number] Director: Judy Monroy MD, Phone: [phone] [facility] HospitalParathyroid Zvyakjj6566-08-61 06:12:00* Test Item Value Reference Range Interpretation Comments Parathyroid Hormone (test code = 2731-8) 15-65 [facility] HospitalCalcium (Send out)2018-09-17 06:12:00* Test Item Value Reference Range Interpretation Comments Calcium (Send out) (test code = 42803-8) 9.3 8.6-10.2 [facility] HospitalParathyroid Hormone Interpretation 2018-09-17 06:12:00* Test Item Value Reference Range Interpretation Comments Parathyroid Hormone Interpretation (test code = Parathyroid Hormone Interpretation) Comment . Interpretation Intact PTH Calcium (pg/mL) (mg/dL)Normal 15 - 65 8.6 - 10.2Pr imary Hyperparathyroidism >65 >10.2Secondary Hyperparathyroidism >65 <10.2Non-Parathyroid Hypercalcemia <65 >10.2Hypoparathyroidism <15 < 8.6Non- Parathyroid Hypocalcemia 15 - 65 < 8.6Performed at: - [facility] [address] [place], [place] [id number] Director: John Paul Gómez MD, Phone: [phone] at: - [facility] [address] [id number] Director: Juyd Monroy MD, Phone: [phone] Methodist Baytown HospitalWhite Blood Cxfkc8827-64-10 05:53:00* Test Item Value Reference Range Interpretation Comments White Blood Count (test code = 6690-2) 6.80 4.8-10.8 [facility] HospitalRed Blood Nsart4530-31-64 05:53:00* Test Item Value Reference Range Interpretation Comments Red Blood Count (test code = 789-8) 3.69 4.3-5.7 L [facility] HospitalHemoglobin2019-08-10 05:53:00* Test Item Value Reference Range Interpretation Comments Hemoglobin (test code = 71507-7) 13.1 14.0-18.0 L [facility] HospitalHematocrit2019-08-10 05:53:00* Test Item Value Reference Range Interpretation Comments Hematocrit (test code = 4544-3) 38.5 38.2-49.6 [facility] HospitalMean Corpuscular Jghwfx9981-70-99 05:53:00* Test Item Value Reference Range Interpretation Comments Mean Corpuscular Volume (test code = 787-2) 104.3 81-99 H [facility] HospitalMean Corpuscular Swkopdkqfk7092-75-93 05:53:00* Test Item Value Reference Range Interpretation Comments Mean Corpuscular Hemoglobin (test code = 785-6) 35.5 28-32 H [facility] HospitalMean Corpuscular Hemoglobin Concent 2018-09-17 05:53:00* Test Item Value Reference Range Interpretation Comments Mean Corpuscular Hemoglobin Concent (test code = 786-4) 34.0 31-35 [facility] HospitalRed Cell Distribution Tucvv0112-31-19 05:53:00* Test Item Value Reference Range Interpretation Comments Red Cell Distribution Width (test code = 36925-7) 13.4 11.7 -14.4 [facility] HospitalPlatelet Yngzb9936-03-70 05:53:00* Test Item Value Reference Range Interpretation Comments Platelet Count (test code = 777-3) 263 140-360 [facility] HospitalNeutrophils (%) (Auto)2018-09-17 05:53:00 * Test Item Value Reference Range Interpretation Comments Neutrophils (%) (Auto) (test code = 95466-1) 41.9 38.7-80.0 [facility] HospitalLymphocytes (%) (Auto)2018-09-17 05:53:00 * Test Item Value Reference Range Interpretation Comments Lymphocytes (%) (Auto) (test code = 736-9) 39.4 18.0-39.1 H [facility] HospitalMonocytes (%) (Auto)2018-09-17 05:53:00* Test Item Value Reference Range Interpretation Comments Monocytes (%) (Auto) (test code = 5905-5) 13.8 4.4-11.3 H [facility] HospitalEosinophils (%) (Auto)2018-09-17 05:53:00 * Test Item Value Reference Range Interpretation Comments Eosinophils (%) (Auto) (test code = 713-8) 3.5 0.0-6.0 [facility] HospitalBasophils (%) (Auto)2018-09-17 05:53:00* Test Item Value Reference Range Interpretation Comments Basophils (%) (Auto) (test code = 706-2) 1.0 0.0-1.0 [facility] HospitalIM GRANULOCYTES %2018-09-17 05:53:00* Test Item Value Reference Range Interpretation Comments IM GRANULOCYTES % (test code = IM GRANULOCYTES %) 0.4 0.0- 1.0 [facility] HospitalNeutrophils # (Auto)2018-09-17 05:53:00* Test Item Value Reference Range Interpretation Comments Neutrophils # (Auto) (test code = 751-8) 2.8 2.1-6.9 [facility] HospitalLymphocytes # (Auto)2018-09-17 05:53:00* Test Item Value Reference Range Interpretation Comments Lymphocytes # (Auto) (test code = 84627-8) 2.7 1.0-3.2 [facility] HospitalMonocytes # (Auto)2018-09-17 05:53:00* Test Item Value Reference Range Interpretation Comments Monocytes # (Auto) (test code = 742-7) 0.9 0.2-0.8 H [facility] HospitalEosinophils # (Auto)2018-09-17 05:53:00* Test Item Value Reference Range Interpretation Comments Eosinophils # (Auto) (test code = 711-2) 0.2 0.0-0.4 [facility] HospitalBasophils # (Auto)2018-09-17 05:53:00* Test Item Value Reference Range Interpretation Comments Basophils # (Auto) (test code = 704-7) 0.1 0.0-0.1 [facility] HospitalAbsolute Immature Granulocyte (auto 2018-09-17 05:53:00* Test Item Value Reference Range Interpretation Comments Absolute Immature Granulocyte (auto (riley t code = Absolute Immature Granulocyte (auto) 0.03 0-0.1 [facility] HospitalIR SQKNYQZ1796-41-60 17:14:00 [place] [address] Patient Name: ANKUR DEGROOT MR #: [id number] : 1955 Age/Sex: 63/M Req #: [id number] Adm Physician: GINO WALL MD Ordered by: JUSTO RESENDEZ MD Report #: [id number] Location: MED/SURG Room/Bed: [facility] Procedure: 0 DX/IR CONSULT Exam Date: Exam Time: REPORT STATUS: Signed PROCEDURE: Tunneled ce ntral venous catheter placement Procedural Personnel Attending physician (s): Ulises Galloway MD Fellow physician(s): None Resident physician(s): None Advanced practice provider(s): None Pre-procedure diagnosis: Bacteremia P ost-procedure diagnosis: Same Indication: Administration of intermodal dispatcher antibiot ics Additional clinical history: None Complications: [...] Proline power injectable single lumen Catheter size (Citizen Of [place]): 5 Catheter flush: Normal saline Cl osure [...] JUSTO RESENDEZ MD TUNNELLED CVC INSERT W/O IJUB2232-79-36 17:14:00 [place] [address] Patient Name: ANKUR DEGROOT MR #: [id number] : 1955 Age/Sex: 63/M Req #: [id number] Adm Physician: GINO WALL MD Ordered by: JUSTO RESENDEZ MD Report #: [id number] Location: MED/SURG Room/Bed: [facility] Procedure: 5 IR/TUNNELLED CVC INSERT W/O PORT Exam Date: Exam Time: REPORT STATUS: Signed PRO CEDURE: Tunneled central venous catheter placement Procedural Personnel Attending physician(s): Ulises Galloway MD Fellow physician(s): None Resident ph ysician(s): None Advanced practice provider(s): None Pre-procedure diagno sis: Bacteremia Post-procedure diagnosis: Same Indication: Administration of skilled nursing antibiotics Additional clinical history: None Complications: No [...] e power injectable single lumen Catheter size (Citizen [place]): 5 Catheter flush: No rmal saline Closure [...] TO: JUSTO RESENDEZ MD MRI FEMUR RIGHT EI3892-74-38 16:17:00 [place] [address] Patient Name: ANKUR DEGROOT MR #: [id number] : 1955 Age/Sex: 63/M Req #: [id number] Adm Physician: GINO WALL MD Ordered by: JUSTO RESENDEZ MD Report #: [id number] Location: MED/SURG Room/Bed: [facility] Procedure: 0809-000 8 MRI/MRI FEMUR RIGHT WO [...] PM Dictated By: IGOR ADAME MD, MD 1623 Transcri bed By: MAGALY on 09/16/18 1623 COPY TO: JUSTO RESENDEZ MD Thyroid Stimulating Hormone (TSH)2018-09-16 12:55:00* Test Item Value Reference Range Interpretation Comments Thyroid Stimulating Hormone (TSH) (test code = 53831-3) 2.050 0.350-4.940 [facility] HospitalTriglycerides Eihlf9697-47-02 12:23:00* Test Item Value Reference Range Interpretation Comments Triglycerides Level (test code = 2571-8) 107 0-149 [facility] HospitalCholesterol Ymcwb5217-85-49 12:23:00* Test Item Value Reference Range Interpretation Comments Cholesterol Level (test code = 2093-3) 207 0-199 H Less than 200 mg/dL Low Amvq360 - 239 mg/dL Borderline Daqs992 m g/dl and greater High Risk [facility] HospitalLDL Lozyippdboj1566-77-05 12:23:00* Test Item Value Reference Range Interpretation Comments LDL Cholesterol (test code = 2089-1) 145 60-130 H [facility] HospitalHDL Uxulfhnqgbd6037-73-59 12:23:00* Test Item Value Reference Range Interpretation Comments HDL Cholesterol (test code = 2085-9) 41 40-60 [facility] HospitalCholesterol/HDL Mytti2613-33-27 12:23:00 * Test Item Value Reference Range Interpretation Comments Cholesterol/HDL Ratio (test code = 9830-1) 5.0 3.9-4.7 H [facility] HospitalUric Wrbf3601-45-70 06:24:00* Test Item Value Reference Range Interpretation Comments Uric Acid (test code = 3084-1) 5.4 4.8-8.0 [facility] HospitalUric Pgex0266-20-08 06:24:00* Test Item Value Reference Range Interpretation Comments Uric Acid (test code = 3084-1) 5.4 4.8-8.0 [facility] HospitalUric Diwk1031-12-58 06:24:00* Test Item Value Reference Range Interpretation Comments Uric Acid (test code = 3084-1) 5.4 4.8-8.0 [facility] HospitalRandom Vancomycin Vyyjr7660-25-23 05:51:00* Test Item Value Reference Range Interpretation Comments Random Vancomycin Level (test code = 24497-0) 11.4 [facility] Vancomycin Nawuj9850-19-26 05:51:00* Test Item Value Reference Range Interpretation Comments Random Vancomycin Level (test code = 39002-3) 11.4 [facility] HospitalRandom Vancomycin Atzrz0952-26-00 05:51:00* Test Item Value Reference Range Interpretation Comments Random Vancomycin Level (test code = 22591-8) 11.4 [facility] HospitalUrine Random Total Lpaseyl6212-36-05 15:55:00* Test Item Value Reference Range Interpretation Comments Urine Random Total Protein (test code = 2888-6) < 6.8 1-14 [facility] HospitalUrine Wzvtmmoecr2317-72-16 15:55:00* Test Item Value Reference Range Interpretation Comments Urine Creatinine (test code = 2161-8) 66.11 63-166 [facility] HospitalUrine Protein/Creatinine Bcymw5378-54-72 15:55:00* Test Item Value Reference Range Interpretation Comments Urine Protein/Creatinine Ratio (test code = 18022-5) 0.00 [facility] HospitalUrine Random Total Dlvhnuz6321-23-65 15:55:00* Test Item Value Reference Range Interpretation Comments Urine Random Total Protein (test code = 2888-6) < 6.8 1-14 [facility] HospitalUrine Jhgfpaxdft8118-46-42 15:55:00* Test Item Value Reference Range Interpretation Comments Urine Creatinine (test code = 2161-8) 66.11 63-166 [facility] HospitalUrine Protein/Creatinine Wejbn2028-75-60 15:55:00* Test Item Value Reference Range Interpretation Comments Urine Protein/Creatinine Ratio (test code = 08731-7) 0.00 [facility] HospitalUrine Random Total Coukjqd3904-24-47 15:55:00* Test Item Value Reference Range Interpretation Comments Urine Random Total Protein (test code = 2888-6) < 6.8 1-14 [facility] HospitalUrine Bqwgdqgqis0370-91-59 15:55:00* Test Item Value Reference Range Interpretation Comments Urine Creatinine (test code = 2161-8) 66.11 63-166 [facility] HospitalUrine Protein/Creatinine Pcslx6101-88-15 15:55:00* Test Item Value Reference Range Interpretation Comments Urine Protein/Creatinine Ratio (test code = 16933-3) 0.00 [facility] HospitalUrine JVA3027-63-62 15:39:00* Test Item Value Reference Range Interpretation Comments Urine WBC (test code = 5821-4) NONE 0-5 [facility] HospitalUrine XBM9349-33-76 15:39:00* Test Item Value Reference Range Interpretation Comments Urine RBC (test code = 88826-8) NONE 0-5 [facility] HospitalUrine Bunbzlbi7277-21-74 15:39:00* Test Item Value Reference Range Interpretation Comments Urine Bacteria (test code = 42522-3) NONE NONE [facility] HospitalUrine Epithelial Xvsna1403-33-44 15:39:00 * Test Item Value Reference Range Interpretation Comments Urine Epithelial Cells (test code = 21577-6) RARE NONE [facility] HospitalUrine Bvzlx7587-60-21 15:25:00* Test Item Value Reference Range Interpretation Comments Urine Color (test code = 5778-6) YELLOW YELLOW [facility] HospitalUrine Kajdjme2225-93-31 15:25:00* Test Item Value Reference Range Interpretation Comments Urine Clarity (test code = 51100-2) SL CLOUDY CLEAR H [facility] HospitalUrine Specific Jnfnxhr4165-09-41 15:25:00 * Test Item Value Reference Range Interpretation Comments Urine Specific [place] (test code = 5811-5) 1.015 1.010-1.02 5 [facility] HospitalUrine fI2507-56-01 15:25:00* Test Item Value Reference Range Interpretation Comments Urine pH (test code = 10263-1) 6 5-7 [facility] HospitalUrine Leukocyte Hhuxmlvr0770-28-89 15:25:00* Test Item Value Reference Range Interpretation Comments Urine Leukocyte Esterase (test code = 44067-4) NEGATIVE NEGATIV E [facility] HospitalUrine Epyyjmi8920-34-61 15:25:00* Test Item Value Reference Range Interpretation Comments Urine Nitrite (test code = 35962-9) NEGATIVE NEGATIVE [facility] HospitalUrine Kazsccr2016-40-68 15:25:00* Test Item Value Reference Range Interpretation Comments Urine Protein (test code = 42301-8) NEGATIVE NEGATIVE [facility] HospitalUrine Glucose (UA)2018-09-15 15:25:00* Test Item Value Reference Range Interpretation Comments Urine Glucose (UA) (test code = 22290-2) NEGATIVE NEGATIVE [facility] HospitalUrine Zvajqda9173-35-16 15:25:00* Test Item Value Reference Range Interpretation Comments Urine Ketones (test code = 90479-3) NEGATIVE NEGATIVE [facility] HospitalUrine Oqzmdhnrwfmm3011-37-54 15:25:00* Test Item Value Reference Range Interpretation Comments Urine Urobilinogen (test code = 67773-3) 0.2 0.2-1 [facility] HospitalUrine Cdczfhgcv1547-47-49 15:25:00* Test Item Value Reference Range Interpretation Comments Urine Bilirubin (test code = 1977-8) NEGATIVE NEGATIVE [facility] HospitalUrine Opmla5792-96-32 15:25:00* Test Item Value Reference Range Interpretation Comments Urine Blood (test code = 08118-4) NEGATIVE NEGATIVE [facility] HospitalUS RENAL RETROPERITONEAL GPKF5411-73-92 15:02:00 [facility] [address] [place] [address] Patient Name: ANKUR DEGROOT MR #: [id number] : 1955 Age/Sex: 63/M Req #: [id number] Adm Physician: GINO WALL MD Ordered by: JIM LUCIO, KENDAL LUCIO Report #: [id number] Location: MED/SURG Room/Bed: [facility] Procedure: 0808-0 018 US/US RENAL RETROPERITONEAL COMP [...] ULISES GALLOWAY MD Electronically Si gned By: ULISES GALLOWAY MD on 09/16/18905 Transcribed By: MAGALY on 09/16/18 090 6 COPY TO: KENDAL FERNANDEZ CT ABDOMEN/PELVIS PR4489-83-16 13:52:00 [place] [address] Patient Name: ANKUR DEGROOT MR #: [id number] : 1955 Age/Sex: 63/M Req #: [id number] Adm Physician: GINO WALL MD Ordered by: GINO WALL MD Report #: [id number] Location: MED/SURG Room/Bed: [facility] Procedure: CT/CT ABDOMEN/PELVIS WO Exam Date: 09/15/18 [...] COPY TO: GINO WALL MD Vancomycin Level Udgf6361-40-10 08:31:00* Test Item Value Reference Range Interpretation Comments Vancomycin Level Peak (test code = 4090-7) 32 20-40 [facility] HospitalVancomycin Level Irpp8618-73-23 08:31:00 * Test Item Value Reference Range Interpretation Comments Vancomycin Level Peak (test code = 4090-7) 32 20-40 [facility] HospitalVancomycin Level Vqly1017-27-50 08:31:00 * Test Item Value Reference Range Interpretation Comments Vancomycin Level Peak (test code = 4090-7) 32 20-40 [facility] HospitalVancomycin Level Tcnxtr8051-80-95 05:11:00* Test Item Value Reference Range Interpretation Comments Vancomycin Level Trough (test code = 4092-3) 14.5 5.0-10.0 HH Results repeated and called to YUDY العراقي RN at 0510 on 09/15/18 by to-BBB . Read back and verified.[facility] HospitalVancomycin Level Otiboz6931-30-20 05:11:00* Test Item Value Reference Range Interpretation Comments Vancomycin Level Trough (test code = 4092-3) 14.5 5.0-10.0 HH Results repeated and called to YUDY العراقي RN at 0510 on 09/15/18 by to-BBB er. Read back and verified.[facility] HospitalVancomycin Level Rjgdlw6765-73-60 05:11:00* Test Item Value Reference Range Interpretation Comments Vancomycin Level Trough (test code = 4092-3) 14.5 5.0-10.0 HH Results repeated and called to YUDY العراقي RN at 0510 on 09/15/18 by to-BBB . Read back and verified.[facility] HospitalActivated Partial Thromboplast Asvr3525-61-35 06:33:00* Test Item Value Reference Range Interpretation Comments Activated Partial Thromboplast Time (test code = 61237-1) 31.5 23.8-35.5 [facility] HospitalProthrombin Njyo0823-71-58 06:05:00* Test Item Value Reference Range Interpretation Comments Prothrombin Time (test code = 5902-2) 13.3 11.9-14.5 [facility] HospitalProthromb Time International Ratio 2018-09-14 06:05:00* Test Item Value Reference Range Interpretation Comments Prothromb Time International Ratio (test code = 6301-6) 0.96 Oral Anticoagulant Therapy INR Values:1. Low Intensity Therapy 1.5 - 2.02 . Moderate Intensity Therapy 2.0 - 3.03. High Intensity Therapy(1) 2.5 - 3. 54. High Intensity Therapy(2) 3.0 - 4.05. Panic Value INR > 5.0 [facility] HospitalBlood Gamtbap0409-60-42 00:23:00* Test Item Value Reference Range Interpretation Comments Blood Culture (test code = 78931796) NO GROWTH AFTER 5 DAYS, FINAL REPORT [facility]aodium Afwvg4204-91-65 05:41:00* Test Item Value Reference Range Interpretation Comments Sodium Level (test code = 2951-2) 136 136-145 [facility] HospitalPotassium Olqcn9180-64-46 05:41:00* Test Item Value Reference Range Interpretation Comments Potassium Level (test code = 2823-3) 4.0 3.5-5.1 [facility] HospitalChloride Avcqs0807-24-35 05:41:00* Test Item Value Reference Range Interpretation Comments Chloride Level (test code = 2075-0) 106 98-107 [facility] HospitalCarbon Dioxide Pxafb9820-36-87 05:41:00* Test Item Value Reference Range Interpretation Comments Carbon Dioxide Level (test code = 2028-9) 21 22-29 L [facility] HospitalAnion Fib2319-84-57 05:41:00* Test Item Value Reference Range Interpretation Comments Anion Gap (test code = 43053-1) 13.0 8-16 [facility] HospitalBlood Urea Kqanbyoi0021-37-74 05:41:00* Test Item Value Reference Range Interpretation Comments Blood Urea Nitrogen (test code = 3094-0) 21 7-26 [facility] HospitalCreatinine2019-07-05 05:41:00* Test Item Value Reference Range Interpretation Comments Creatinine (test code = 2160-0) 1.63 0.72-1.25 [facility]BUN/Creatinine Arute7781-44-48 05:41:00* Test Item Value Reference Range Interpretation Comments BUN/Creatinine Ratio (test code = 3097-3) 13 08-02 [facility] HospitalEstimat Glomerular Filtration Rate 2018-08-12 05:41:00* Test Item Value Reference Range Interpretation Comments Estimat Glomerular Filtration Rate (test code = 793002647) 43 >60 L Ranges were taken from the National Kidney Disease Education Program and the [facility] Kidney Foundation literature.Reference ranges:60 or greater: Idlwiz62-89 ( for 3 consecutive months): Chronic kidney disease 15 or less: Kidney failureHouston [facility] HospitalGlucose Slclp0893-21-39 05:41:00* Test Item Value Reference Range Interpretation Comments Glucose Level (test code = LQD0024) 309 74-118 H [facility] HospitalCalcium Omyxb3786-35-69 05:41:00* Test Item Value Reference Range Interpretation Comments Calcium Level (test code = 83885-3) 8.2 8.4-10.2 L [facility] HospitalWhite Blood Vznza0556-86-37 05:32:00* Test Item Value Reference Range Interpretation Comments White Blood Count (test code = 6690-2) 12.28 4.8-10.8 H [facility] HospitalRed Blood Bjxas4782-14-63 05:32:00* Test Item Value Reference Range Interpretation Comments Red Blood Count (test code = 789-8) 3.36 4.3-5.7 L [facility] HospitalHemoglobin2019-07-05 05:32:00* Test Item Value Reference Range Interpretation Comments Hemoglobin (test code = 15385-5) 12.3 14.0-18.0 L [facility] HospitalHematocrit2019-07-05 05:32:00* Test Item Value Reference Range Interpretation Comments Hematocrit (test code = 4544-3) 34.6 38.2-49.6 L [facility] HospitalMean Corpuscular Swdjcm7477-98-12 05:32:00* Test Item Value Reference Range Interpretation Comments Mean Corpuscular Volume (test code = 787-2) 103.0 81-99 H [facility] HospitalMean Corpuscular Ayjeatdbap2608-78-43 05:32:00* Test Item Value Reference Range Interpretation Comments Mean Corpuscular Hemoglobin (test code = 785-6) 36.6 28-32 H [facility] HospitalMean Corpuscular Hemoglobin Concent 2018-08-12 05:32:00* Test Item Value Reference Range Interpretation Comments Mean Corpuscular Hemoglobin Concent (test code = 786-4) 35.5 31-35 H [facility] HospitalRed Cell Distribution Fffav9365-99-06 05:32:00* Test Item Value Reference Range Interpretation Comments Red Cell Distribution Width (test code = 44630-2) 12.4 11.7 -14.4 [facility] HospitalPlatelet Dcrww0938-79-19 05:32:00* Test Item Value Reference Range Interpretation Comments Platelet Count (test code = 777-3) 200 140-360 [facility] HospitalNeutrophils (%) (Auto)2018-08-12 05:32:00 * Test Item Value Reference Range Interpretation Comments Neutrophils (%) (Auto) (test code = 19820-9) 60.9 38.7-80.0 [facility] HospitalLymphocytes (%) (Auto)2018-08-12 05:32:00 * Test Item Value Reference Range Interpretation Comments Lymphocytes (%) (Auto) (test code = 736-9) 25.6 18.0-39.1 [facility] HospitalMonocytes (%) (Auto)2018-08-12 05:32:00* Test Item Value Reference Range Interpretation Comments Monocytes (%) (Auto) (test code = 5905-5) 10.4 4.4-11.3 [facility] HospitalEosinophils (%) (Auto)2018-08-12 05:32:00 * Test Item Value Reference Range Interpretation Comments Eosinophils (%) (Auto) (test code = 713-8) 2.1 0.0-6.0 [facility] HospitalBasophils (%) (Auto)2018-08-12 05:32:00* Test Item Value Reference Range Interpretation Comments Basophils (%) (Auto) (test code = 706-2) 0.7 0.0-1.0 [facility] HospitalIM GRANULOCYTES %2018-08-12 05:32:00* Test Item Value Reference Range Interpretation Comments IM GRANULOCYTES % (test code = IM GRANULOCYTES %) 0.3 0.0- 1.0 [facility] HospitalNeutrophils # (Auto)2018-08-12 05:32:00* Test Item Value Reference Range Interpretation Comments Neutrophils # (Auto) (test code = 751-8) 7.5 2.1-6.9 H [facility] HospitalLymphocytes # (Auto)2018-08-12 05:32:00* Test Item Value Reference Range Interpretation Comments Lymphocytes # (Auto) (test code = 25303-7) 3.1 1.0-3.2 [facility] HospitalMonocytes # (Auto)2018-08-12 05:32:00* Test Item Value Reference Range Interpretation Comments Monocytes # (Auto) (test code = 742-7) 1.3 0.2-0.8 H [facility] HospitalEosinophils # (Auto)2018-08-12 05:32:00* Test Item Value Reference Range Interpretation Comments Eosinophils # (Auto) (test code = 711-2) 0.3 0.0-0.4 [facility] HospitalBasophils # (Auto)2018-08-12 05:32:00* Test Item Value Reference Range Interpretation Comments Basophils # (Auto) (test code = 704-7) 0.1 0.0-0.1 [facility] HospitalAbsolute Immature Granulocyte (auto 2018-08-12 05:32:00* Test Item Value Reference Range Interpretation Comments Absolute Immature Granulocyte (auto (riley t code = Absolute Immature Granulocyte (auto) 0.04 0-0.1 [facility] HospitalBlood Bruyihn7058-86-50 00:23:00* Test Item Value Reference Range Interpretation Comments Blood Culture (test code = 40794102) NO GROWTH AFTER 72 HOURS [facility] HospitalVancomycin Level Zvjcmx3683-77-25 22:32:00* Test Item Value Reference Range Interpretation Comments Vancomycin Level Trough (test code = 4092-3) 5.9 5.0-10.0 [facility] HospitalCT RIGHT LOWER EXTREMITY S0394-78-29 02:50:00 [facility] [address] [address] Patient Name: ANKRU DEGROOT MR #: [id number] : 1955 Age/Sex: 63/M Req #: [id number] Adm Physician: PAT PATTEN MD Ordered by: AAKASH SHARIF DO Report #: [id number] Location: [facility] Room/Bed: [place] [address] Procedure: [id number] CT /CT RIGHT LOWER EXTREMITY W Exam Date: Exam Time: REPORT STATUS: Signed CT Lower e xtremity right with contrast, with reconstructions. CPT code: 86762, 29612 Indications: Abscess. Technique: Contiguous 2.5 mm thickness [...] 08/09/18257 COPY TO: AAKASH SHARIF DO Total Yftpkqtqo6086-57-50 01:00:00* Test Item Value Reference Range Interpretation Comments Total Bilirubin (test code = 1975-2) 2.1 0.2-1.2 H [facility] HospitalAspartate Amino Transf (AST/SGOT) 2018-08-09 01:00:00* Test Item Value Reference Range Interpretation Comments Aspartate Amino Transf (AST/SGOT) (test code = Aspartate Amino Transf (AST/SGOT)) 16 5-34 [facility] HospitalAlanine Aminotransferase (ALT/SGPT) 2018-08-09 01:00:00* Test Item Value Reference Range Interpretation Comments Alanine Aminotransferase (ALT/SGPT) (test code = 1742-6) 25 0-55 [facility] HospitalTotal Nkthkvg2076-66-12 01:00:00* Test Item Value Reference Range Interpretation Comments Total Protein (test code = 2885-2) 7.1 6.5-8.1 [facility] HospitalAlbumin2019-07-02 01:00:00* Test Item Value Reference Range Interpretation Comments Albumin (test code = 1751-7) 3.4 3.5-5.0 L [facility] HospitalGlobulin2019-07-02 01:00:00* Test Item Value Reference Range Interpretation Comments Globulin (test code = 91543-5) 3.7 2.3-3.5 H [facility] HospitalAlbumin/Globulin Prtvx6446-08-41 01:00:00 * Test Item Value Reference Range Interpretation Comments Albumin/Globulin Ratio (test code = 1759-0) 0.9 0.8-2.0 [facility] HospitalAlkaline Tftpnsevlcw5167-79-37 01:00:00* Test Item Value Reference Range Interpretation Comments Alkaline Phosphatase (test code = 6768-6) 62 40-150 [facility] HospitalCHEM MVHHY6519-80-00 12:07:001.4[facility]annCHEM SPSRQ0327-88-56 12:07:0057[facility]annCHEM LHAYI9841-61-26 12:07:003.6[facility] HermannCHEM QUUYY2909-71-82 12:07:00* Test Item Value Reference Range Interpretation Comments A/G Ratio (test code = A/G Ratio) 0.9 1 0.7-1.6 [facility]annCHE[facility] LGMJR0783-67-60 12:07:0036Memorima HermannCHEM PANEL 2017-10-17 12:07:00* Test Item Value Reference Range Interpretation Comments B/C Ratio (test code = B/C Ratio) 19 1 6-25 [facility] HermannCHEM LSBZV4540-84-36 12:07:003.3[facility] HermannCHEM PANEL 2017-10-17 12:07:006.9[facility] HermannCHEM MDJAA7278-24-40 12:07:0060[facility] HermannCHEM HGCDA2798-27-81 12:07:0030[facility]ima HermannCHEM HXSDR3320-10-00 12:07:001.5[facility] HermannCHEM HCNAQ2085-86-58 12:07:32487Ouhymcya HermannCHEM LJDDV7738-82-15 12:07:84549Twskkfdu HermannCHEM UQVTJ3208-14-99 12:07:0025 [facility]annCHEM VHFMG8266-65-34 12:07:0012.7[facility] HermannCHEM PANEL 2017-10-17 12:07:008.7[facility] HermannCHEM QNGYH0201-13-54 12:07:003.7[facility] HermannCHEM MNRQV9576-20-94 12:07:0025[facility] HermannCHEM MIHJP2372-01-10 12:07:55997Jfrzpduk HermannCHEM MMVSM4046-81-06 12:07:001.32[facility] HermannCHEM IFXQC2358-63-78 12:07:001.9[facility] QkxixeqGBWEUPAFQK6545-46-57 12:07:008.5 [facility] [place]ownfKEVAZCCJZC3000-15-19 12:07:53804Lbaqattm HermannHEMATOLOGY 2017-10-17 12:07:0014.0[facility] XlzfqbtDZQFXQGALI2418-82-23 12:07:0034.7[facility] MptsfcgKZXDSCIJGD3483-51-20 12:07:00* Test Item Value Reference Range Interpretation Comments MCH (test code = MCH) 37.9 pg 27.0-31.0 [facility] GxjvbqmCAGVKMGIQW2414-21-30 12:07:0013.8[facility] HermannHEMATOLOGY 2017-10-17 12:07:003.64[facility] QvvlpjlBTDRYTFTUD0145-50-94 12:07:008.1[facility] LmzejfwUHYJCBGINA3599-87-33 12:07:59186.2[facility] VqidyqnYLNHXSIOYO2359-46-08 12:07:0039.7[facility] XkwegzkMNDBKRPIRY1037-56-39 12:07:002.1[facility] RAHRJXFPOK0850-27-01 12:07:000.2[facility] OawdwqjUZFKMFGRMX0194-02-11 12:07:001.0 [facility] ZrjyriuRYXHJREFUU7910-82-57 12:07:0012.7[facility] HermannHEMATOLOGY 2017-10-17 12:07:0025.7[facility] OpyvrnwLYOUKDQBPS3304-18-65 12:07:002.5[facility] PxoraqrFCBNZVSHCQ4792-76-83 12:07:000.1[facility] MupmwesRJVJHPLJSL4517-05-21 12:07:004.7[facility] KbdppdmNDMKQZKDPO9179-41-46 12:07:001.1[facility] NMRLKLNUCZ2494-62-38 12:07:0058.0[facility] HermannDRUG PVLFVU8624-97-67 15:41:00 Positive *ABN*(10/16/17 10:41 AM)[facility] HermannDRUG SOBIPN8898-28-74 15:41:00 Negative *NA*(10/16/17 10:41 AM)[facility] HermannDRUG PNUSZV2388-71-84 15:41:00 Negative *NA*(10/16/17 10:41 AM)[facility]annDRUG TZDBDF9171-96-99 15:41:00 Negative *NA*(10/16/17 10:41 AM)[facility]annDRUG MZQUYN2412-93-28 15:41:00 Negative *NA*(10/16/17 10:41 AM)[facility]annDRUG SWZXOU8710-42-62 15:41:00See Note (10/16/17 10:41 AM)[facility] HermannDRUG TPXLDW3482-91-48 15:41:00Positive *ABN*(10/16/17 10:41 AM)[facility]annDRUG ZSPTPF1548-87-40 15:41:00Negative *NA*(10/16/17 10:41 AM)[facility]annURINE AND CUEVI8863-04-87 15:41:00<1 [facility]annUR[facility] AND SPMJB5279-13-50 15:41:00<1[facility]annUR[facility] AND KODYW4727-29-21 15:41:00Negative (10/16/17 10:41 AM)[facility]annUR[facility] DWEOO0549-15-29 15:41:00Negative (10/16/17 10:41 AM)[facility]annUR[facility] AND WXMQE3937-89-20 15:41:00Negative (10/16/17 10:41 AM)[facility]annUR[facility] AND LOMJW9198-59-17 15:41:00Negative *NA*(10/16/17 10:41 AM)[facility]annUR[facility] AND HORNR5147-63-03 15:41:00* Test Item Value Reference Range Interpretation Comments UA pH (test code = UA pH) 5.5 1 5.0-8.0 [facility]annURINE AND TXINN7524-24-76 15:41:00* Test Item Value Reference Range Interpretation Comments UA Spec Grav (test code = UA Spec Grav) 1.036 1 [facility]annUR[facility] AND YSETL4978-27-39 15:41:00Yellow *NA*(10/16/17 10:41 AM) [facility]UR[facility] AND LKAYX4087-42-35 15:41:00Clear (10/16/17 10:41 AM) [facility] HermannCARDIAC DFCBQNG8924-01-05 14:49:00<0.02[facility] HermannANEMIA EQODX5059-47-29 11:04:009.8[facility] HermannANEMIA FAEDP4226-74-28 11:04:05927 [facility]annCARDIAC FRRTVSJ4743-54-91 11:04:00<0.02[facility] HermannCHEM YSJBX8569-72-25 11:04:001.4[facility] HermannCHEM KHNBA0420-36-08 11:04:003.4 [facility] NqsetwsGHFIXO8382-07-74 11:04:68178Doyqkmop SkijlqxGTFGBL2385-93-73 11:04:00* Test Item Value Reference Range Interpretation Comments VLDL (test code = VLDL) 33 1 [facility] RbuflxpIWREGI6723-46-31 11:04:43451Frzhuvlw IrfluajXAAPAA2297-91-76 11:04:80120Ffmixelw YjpllwbTZCJTX4087-24-90 11:04:0058[facility] HermannLIPIDS 2017-10-16 11:04:00* Test Item Value Reference Range Interpretation Comments CHD Risk (test code = CHD Risk) 3.52 1 4.00-7.30 [facility]annSPECIAL IBDFPCBFE2572-80-46 11:04:007.8[facility] HermannCARDIAC MUKANFJ4083-26-79 06:00:00<0.02[facility] HermannCARDIAC TFIHXYP0860-65-33 06:00:0045[facility] HermannCHEM IYTXS8016-99-71 06:00:00* Test Item Value Reference Range Interpretation Comments B/C Ratio (test code = B/C Ratio) 16 1 6-25 [facility] HermannCHEM COTBT5572-57-45 06:00:0016.1[facility] HermannCHEM PANEL 2017-10-16 06:00:00* Test Item Value Reference Range Interpretation Comments A/G Ratio (test code = A/G Ratio) 1.0 1 0.7-1.6 [facility] HermannCHEM QHIXD2545-49-96 06:00:003.7[facility] HermannCHEM PANEL 2017-10-16 06:00:000.8[facility] HermannCHEM PMSCJ2932-28-20 06:00:0049[facility] HermannCHEM UNKUD6091-73-98 06:00:0059[facility] HermannCHEM UXEVS3194-12-59 06:00:0055[facility] HermannCHEM FLHMB9089-01-43 06:00:0050[facility] HermannCHEM VGGTI4872-18-52 06:00:008.8[facility] HermannCHEM KNGHI1401-68-45 06:00:0023 [facility]annCHEM SBRWO8698-79-21 06:00:02045Lnuzrkcj HermannCHEM PANEL 2017-10-16 06:00:004.1[facility] HermannCHEM PKBYM7914-21-50 06:00:003.8[facility] HermannCHEM JTVPC2306-51-99 06:00:007.5[facility] HermannCHEM MHDWW1587-45-09 06:00:52360Nvdcjuzl HermannCHEM AYXAA1608-45-19 06:00:001.48[facility] HermannCHEM BGWGM8762-63-28 06:00:0023[facility] HermannCHEM XYTVA5696-61-54 06:00:83392 Memorial CbbvehbXORHNQIOAC6408-51-97 06:00:008.2[facility] HermannHEMATOLOGY 2017-10-16 06:00:0014.4[facility] LrnuaygBSDZUNEHRB7161-47-51 06:00:008.3[facility] OagexslWEZWPJYLOW9439-28-84 06:00:003.82[facility] TofqtalKXQUCVQOQM2460-37-28 06:00:0042.2[facility] RkltqquLMSZSVMNYZ0763-40-49 06:00:25317.4[facility] SQPSLPYIAM1380-54-36 06:00:0014.1[facility] TfjtwsyTKQWJQXPTU0351-37-42 06:00:00 201[facility] SaknepwPZRFYKMKOD2942-68-41 06:00:00* Test Item Value Reference Range Interpretation Comments MCH (test code = MCH) 37.8 pg 27.0-31.0 [facility] ApxhgrmRVCVWGDPFS4810-02-36 06:00:0034.2[facility] HermannHEMATOLOGY 2017-10-16 06:00:00* Test Item Value Reference Range Interpretation Comments PT (test code = PT) 13.7 s 12.0-14.7 [facility] ApbubteVYEGELBKUY1437-06-56 06:00:00* Test Item Value Reference Range Interpretation Comments INR (test code = INR) 1.05 1 0.85-1.17 [facility] LzrjmucYATLSXMPZP0071-13-05 06:00:00* Test Item Value Reference Range Interpretation Comments PTT (test code = PTT) 30.3 s 22.9-35.8 [facility] DgqsdziXZXNFPXTHJ7845-25-52 06:00:000.2[facility] HermannHEMATOLOGY 2017-10-16 06:00:000.1[facility] WxxmgsxTEDTDYDGJK3137-42-45 06:00:003+ *NA*(10/16/17 1:00 AM)[facility] BvvszujRDTUYGLABV4541-29-59 06:00:000.9[facility] YxwkddyMKOCEOYJKS2111-50-18 06:00:0052.5[facility] PqrzjegFUUJVJXKLE6513-25-99 06:00:0033.7[facility] CvmiinrBGPFEJKZGJ6754-02-05 06:00:0010.3[facility] TEAPKHKFBI7294-42-91 06:00:002.8[facility] JiekptoTMNVCUJNHP3950-01-63 06:00:002.2 [facility] ZiqoqgdBPLHSHBLXI1014-72-28 06:00:001.3[facility] HermannHEMATOLOGY 2017-10-16 06:00:004.3[facility] HermannCHEM JCXFV5482-43-91 05:58:0048[facility] HermannCHEM SWCLO8687-31-05 05:58:0015.6[facility] HermannCHEM LKUDR0949-64-77 05:58:00289Fapstmem HermannCHEM WMNLK1915-60-78 05:58:001.00[facility] HermannCHEM OBFDQ8436-33-85 05:58:0024[facility] HermannCHEM VOUKC3978-37-94 05:58:001.5 [facility]annCHEM GTTWU2614-39-26 05:58:004.3[facility] HermannCHEM PANEL 2017-10-16 05:58:95012Utqnwupt HermannCHEM AKOYW9631-95-11 05:58:32135Vsxfikhc HermannCHEM WDJUN4793-60-44 05:58:0021[facility] HermannCHEM GNIIF3593-49-61 05:58:0020.0[facility] HermannCHEM LHUMP0996-09-78 05:58:0046.0[facility] CARDIAC DZIEKTL5051-91-65 19:30:36836Awoiaecb IdbyjbuGZGHOVKPRMPR9747-84-45 19:30:0012.0[facility] GochkcoUHPYBFDJJRFG5582-14-65 19:30:0046[facility] DNVBJZFZPPIE6273-16-63 19:30:0029[facility] MntklseGGSPJDVVAEQF2175-84-94 19:30:00 9.7[facility] GwjvkfsWAEKXVSHUIIH5379-56-68 19:30:005.0[facility] SZDARAUDTTUX5099-66-24 19:30:72742Fhmeecax UsgddzbDIYPBZGEQEXS6556-22-91 19:30:0032[facility] ThsulzhHHBBWVMCRAAM3627-02-57 19:30:001.57[facility] PMOZRDXZHLSD2937-23-85 19:30:49027Ezatwmkf KvlcdftZUFHGSHWTLWG0109-77-48 19:30:00733Yooiqnnz VmsjeabPEMIKHWSEI8197-79-79 19:30:000.3[facility] JSBATZNDWD6776-88-94 19:30:000.2[facility] AdcnpehIWENHHAPTW2056-12-66 19:30:002.4 [facility] PfzxhmfCDFANNOEOE5638-87-41 19:30:000.9[facility] HermannHEMATOLOGY 2017-06-03 19:30:002.5[facility] QglsklrKXGKNROWIH4828-89-84 19:30:002.4[facility] XpfswntPTLVTCULGV5629-34-60 19:30:0038.6[facility] QangetzXWEPHPDKCP7658-16-81 19:30:0014.3[facility] RvxzgrmPVDKLYFNWS9097-11-71 19:30:0039.3[facility] MFYFTAMMFR6994-09-74 19:30:005.3[facility] BojkripZHRHAPYRLT2114-72-62 19:30:00 34.1[facility] HytptcvVYKSKFFPQJ6312-28-21 19:30:0016.4[facility] HermannHEMATOLOGY 2017-06-03 19:30:009.0[facility] YtbdcnsUWSGUVAPOK2989-95-46 19:30:00* Test Item Value Reference Range Interpretation Comments MCH (test code = MCH) 35.2 pg 27.0-31.0 [facility] LnibkdcKLQVPGSGFA1505-38-19 19:30:97983Hjmyuvbl HermannHEMATOLOGY 2017-06-03 19:30:006.2[facility] UwwnkupLETERKMQBS0172-91-14 19:30:63542.3[facility] RkndccxHWENJMEJST2900-46-43 19:30:0045.8[facility] SihhmbgVDACPKHRVW4113-14-95 19:30:0015.6[facility] DgxsdbfLHHWBQGLYS9591-21-56 19:30:004.43[facility] CARDIAC NUZFHZI3413-59-24 21:30:268668Upcyiymq HermannCHEM OBLJZ2763-22-48 21:30:00* Test Item Value Reference Range Interpretation Comments A/G Ratio (test code = A/G Ratio) 0.9 1 0.7-1.6 [facility] HermannCHEM VTUIY3655-57-55 21:30:0011.6[facility] HermannCHEM PANEL 2017-04-05 21:30:00* Test Item Value Reference Range Interpretation Comments B/C Ratio (test code = B/C Ratio) 11 1 6-25 [facility]annCHEM DIISX5094-43-08 21:30:004.3[facility] HermannCHEM PANEL 2017-04-05 21:30:0057[facility] HermannCHEM VGJHG5216-25-73 21:30:001.32[facility] HermannCHEM FUKTT5320-35-55 21:30:0014[facility] HermannCHEM ZGNCL0684-06-66 21:30:96416Vdbrfgpc HermannCHEM BXJVV6859-34-03 21:30:008.1[facility] HermannCHEM HAYRL6526-38-50 21:30:0020[facility] HermannCHEM SMHFT0286-82-89 21:30:003.8 [facility] HermannCHEM UVOUQ9551-34-99 21:30:97428Gvikxysh HermannCHEM PANEL 2017-04-05 21:30:0017[facility] HermannCHEM CLOID7144-29-85 21:30:009.6[facility] HermannCHEM TSWME0731-56-64 21:30:0028[facility] HermannCHEM XZHIE5932-30-13 21:30:004.6[facility] HermannCHEM NYYOL7502-03-57 21:30:28050Qotysibd HermannCHEM VFVGR9758-77-43 21:30:86382Xfdlmxre HermannCHEM XPMKO0692-32-43 21:30:000.9 [facility] LckkmqwGIUXZZFMCT7873-35-15 21:30:79678Lwivdgnk HermannHEMATOLOGY 2017-04-05 21:30:0021.4[facility] TjdmjulIQGWITWIJX7101-34-81 21:30:0033.9[facility] ZmbdthkRPTTZSXLBE9292-24-20 21:30:00* Test Item Value Reference Range Interpretation Comments MCH (test code = MCH) 34.4 pg 27.0-31.0 [facility] YchppnnTNHJJAHTCJ3579-99-46 21:30:74663.6[facility] HermannHEMATOLOGY 2017-04-05 21:30:0041.0[facility] KicmlgpVUAEFPKHXB8804-81-41 21:30:008.0[facility] ArevhynPTRUHIWOGB3963-43-71 21:30:004.04[facility] XcvqgooZGAMGNFVLD3316-52-09 21:30:0013.9[facility] PivneitSBXUYXLVOV1447-35-69 21:30:008.1[facility] SXPXMREAUO0310-23-78 21:30:004.2[facility] BvqftmrROMOIYQZCI4931-68-87 21:30:007.3 [facility] UxtftdiWTXZBSETYV1412-18-54 21:30:001.0[facility] HermannHEMATOLOGY 2017-04-05 21:30:0016.1[facility] DprekesSKXBDIUKNC6485-79-83 21:30:0022.9[facility] NwimdnqJEPXWOHIYH1288-89-48 21:30:0052.7[facility] SehvztnREDXHFCOUY7116-12-09 21:30:000.1[facility] OngvsezDYSFPCLDFX5259-57-92 21:30:001.8[facility] BVMRGCTTIT9124-38-46 21:30:001.3[facility] IkhxkhuMHGKXUGKFR8582-96-00 21:30:000.6 [facility]annCHEM PAFAX9386-02-73 14:45:0063[facility] HermannCHEM PANEL 2017-03-07 14:45:001.1[facility] HermannCHEM JBHHA8324-33-53 14:45:0079[facility] HermannCHEM OFHYR2452-75-87 14:45:0030[facility] HermannCHEM ZHBGP0749-52-29 14:45:002.0[facility] HermannCHEM TDNOA7435-91-03 14:45:006.1[facility] HermannCHEM IWBVO2636-51-92 14:45:008.6[facility] HermannCHEM TNJLN0571-76-33 14:45:0027 [facility]annCHEM BKWWZ9323-83-35 14:45:0027[facility] HermannCHEM PANEL 2017-03-07 14:45:0013[facility] HermannCHEM OXJNU2099-08-70 14:45:004.0[facility] HermannCHEM ULOIP5791-40-39 14:45:94338Bfjyqcka HermannCHEM PAQLY9489-62-29 14:45:72278Dxkpntrx HermannCHEM JDOIR5282-68-22 14:45:63537Rxesmyxw HermannCHEM ZICFC7582-50-94 14:45:001.21[facility] HermannCHEM KADBV0007-24-86 14:45:00* Test Item Value Reference Range Interpretation Comments A/G Ratio (test code = A/G Ratio) 0.5 1 0.7-1.6 [facility]annCHEM YLPKW1766-11-52 14:45:004.1[facility] HermannCHEM PANEL 2017-03-07 14:45:0011.0[facility] HermannCHEM UYMRN5337-73-03 14:45:00* Test Item Value Reference Range Interpretation Comments B/C Ratio (test code = B/C Ratio) 11 1 6-25 [facility] OnszoccJYDNQUWNYU7914-65-94 14:45:85028Ziyzmppd HermannHEMATOLOGY 2017-03-07 14:45:0022.2[facility] LyvhgtzCKVQIIWGDP9500-06-89 14:45:009.1[facility] PyiauyqKIOBDKSCTC9628-68-73 14:45:003.44[facility] SrlucflOBLPIAMFTF3661-13-31 14:45:0010.8[facility] CugvynpNRSNWZRWAY2515-12-66 14:45:0011.3[facility] FJISXTJOCE4730-85-91 14:45:0033.5[facility] BnejzicZPJSCUQBCP3143-55-82 14:45:00 32.3[facility] HvmuecuHVFCJKHHOB3043-62-42 14:45:00* Test Item Value Reference Range Interpretation Comments MCH (test code = MCH) 31.4 pg 27.0-31.0 [facility] BfwjtyzXGHARIDXFF2650-20-57 14:45:0093.7[facility]annHEMATOLOGY 2017-03-07 14:45:00Moderate *ABN*(03/07/17 8:45 AM)[facility] HermannHEMATOLOGY 2017-03-07 14:45:001+ *ABN*(03/07/17 8:45 AM)[facility] FyhvytaBMUNHAXCQN8779-96-96 14:45:005.4[facility] ZcdvsspAWZVBUXKGK1536-75-16 14:45:006.8[facility] KYXJHGNXVO5616-19-86 14:45:000.9[facility] VswnrtbUHTDKAWAFE0526-68-95 14:45:001.9 [facility] BmywcozUTYZRIKMEO8434-19-98 14:45:001.9[facility]annHE[facility]OLOGY 2017-03-07 14:45:000.1[facility] SyicegxIEZSGXBPAQ8143-31-24 14:45:000.6[facility] XhsgrljHMZXXJNYOI4031-25-28 14:45:00Normal (03/07/17 8:45 AM)[facility] JUBTPCEYCE5475-44-81 14:45:0016.5[facility] WhipntnRAKKHZDLSJ9922-00-64 14:45:00 60.4[facility] TkhcrpnRBBPCWJAGN4646-31-03 14:45:0016.8[facility]annCHEM PANEL 2017-03-05 20:37:0069[facility]annCHE[facility] UUVYI8351-17-73 20:37:001.0[facility]CHE[facility] NNPSK0178-31-98 20:37:003.8[facility]annCHE[facility] XVSRR8743-03-27 20:37:006.0[facility]CHE[facility] NBKYT1082-68-44 20:37:0028[facility]CHE[facility] TLIWD2039-90-55 20:37:00* Test Item Value Reference Range Interpretation Comments A/G Ratio (test code = A/G Ratio) 0.6 1 0.7-1.6 [facility] WEIBW2696-15-00 20:37:002.2[facility]annCHEM PANEL 2017-03-05 20:37:0030[facility]annCHE[facility] CYPZI9522-79-07 20:37:0054[facility]CHE[facility] IDUWC0044-40-08 20:37:001.37[facility]CHE[facility] QJLVC7587-23-26 20:37:0099[facility]CHE[facility] ODVZT6876-75-36 20:37:004.0[facility]annCHE[facility] UPYPO1738-30-34 20:37:45961Yrjklybz HermannCHEM PPMGI3046-68-54 20:37:00* Test Item Value Reference Range Interpretation Comments B/C Ratio (test code = B/C Ratio) 12 08-02 [facility] CGXSW9348-25-25 20:37:009.0[facility]annCHEM PANEL 2017-03-05 20:37:008.2[facility]annCHE[facility] ICTII3363-74-70 20:37:0028[facility]CHE[facility] VJYSW4174-97-87 20:37:0016[facility]CHE[facility] RICGN6951-46-31 20:37:78069Tyfobwgt CetcovzRUKGWFEVGB6149-58-79 20:37:001.4[facility] JZCOCICFQT7855-68-49 20:37:001+ *ABN*(03/05/17 2:37 PM)[facility]annHEMATOLOGY 2017-03-05 20:37:000.1[facility] ZejrxrjHRYKCSRGJL7082-09-46 20:37:000.5[facility] VcauwynTVFLJDBBPM3400-45-52 20:37:000.7[facility] YmrreswPRYEZRTCVD3750-09-13 20:37:004.8[facility] TkzbwxqXFLEDWEWWD9742-91-30 20:37:0012.3[facility] ZCJJUBAWGX8577-56-80 20:37:0018.3[facility] TdgjgamHDUZFLPPRX9099-57-81 20:37:00 63.9[facility] JyvgxjzLWJZHSAGRH3692-77-31 20:37:002.0[facility]annHEMATOLOGY 2017-03-05 20:37:007.1[facility] OkzesbjCORHZYYXLK9187-68-92 20:37:009.4[facility] MtqfhhvZFVJTKIVUW6863-93-51 20:37:65666Tesnfpbl VgrjkjtOMCKCPXADT1527-90-11 20:37:0033.3[facility] LdbttumFQRNSFDHXH7325-04-00 20:37:0021.7[facility] DKMFVZYLJW1402-13-69 20:37:00* Test Item Value Reference Range Interpretation Comments MCH (test code = MCH) 31.0 pg 27.0-31.0 [facility] YdaqgfbIQAQSJWJRW0549-77-31 20:37:0011.1[facility] HermannHEMATOLOGY 2017-03-05 20:37:003.43[facility] AmqyayaTICEBLKQBL3667-30-96 20:37:0010.6[facility] FatyviaKBHPGHAPKZ2560-77-64 20:37:0031.9[facility] UemlavbCVRGJUYZOE9820-72-12 20:37:0093.1[facility] HqbxfpuFMFLTOFEWENN3047-72-83 11:24:004.5[facility] CHEM GAQTV0093-84-79 16:15:0062[facility] HermannCHEM RLTHZ3799-87-18 16:15:001.23 [facility]annCHEM CZXTK0012-19-61 16:15:21158Ififipne HermannCHEM PANEL 2017-03-04 16:15:01720Bfpbkfbp HermannCHEM URMAT1246-40-19 16:15:0021[facility]annCHEM SEJJK2441-25-05 16:15:0030[facility]annCHEM EHAGG4208-95-88 16:15:008.3[facility] HermannCHEM JEIZD9334-83-63 16:15:32267Vdvrcjbj HermannCHEM VWPCM9993-49-09 16:15:0029[facility]annCHEM PIMOD7211-62-81 16:15:002.1 [facility]annCHEM NWCKY7217-41-26 16:15:0060[facility]annCHEM PANEL 2017-03-04 16:15:001.3[facility]annCHEM KHZOB5107-85-22 16:15:005.8[facility]annCHEM BDBDA5726-53-37 16:15:0032[facility]annCHEM HTYMO5386-30-15 16:15:00* Test Item Value Reference Range Interpretation Comments B/C Ratio (test code = B/C Ratio) 17 1 6-25 [facility]annCHEM MYNGK5380-43-98 16:15:008.9[facility]annCHEM PANEL 2017-03-04 16:15:003.7[facility]annCHEM PIDVY6069-73-90 16:15:00* Test Item Value Reference Range Interpretation Comments A/G Ratio (test code = A/G Ratio) 0.6 1 0.7-1.6 [facility] SdfdzmqVLKNSROLUE5007-43-85 16:15:0015.8[facility] HermannHEMATOLOGY 2017-03-04 16:15:0062.5[facility] BzvdmvjZRCQPATLBU2707-58-33 16:15:000.3[facility] XuosywfHAEPBSAVTW7784-38-72 16:15:006.2[facility] ZyvkjrcJWKLBYEUML1819-67-49 16:15:0015.2[facility] NghpdtuKVKHGKLTIF4201-89-34 16:15:001.7[facility] ROLZZSYKAJ2111-23-05 16:15:006.9[facility] JykhalfHCNKOZJPSN9510-30-11 16:15:001.8 [facility] MepkwntUILMRARNWW7033-27-64 16:15:000.7[facility] HermannHEMATOLOGY 2017-03-04 16:15:001+ *ABN*(03/04/17 10:15 AM)[facility]annHEMATOLOGY 2017-03-04 16:15:009.2[facility] KtljaujLKXTRDPKVA4196-61-41 16:15:0010.4[facility] NwnddjuVCKSRCBLSM9201-46-83 16:15:003.37[facility] ScscpvhLZCNMFILME3098-65-06 16:15:0011.1[facility] LdigkmuHHPZFGARDY8946-51-94 16:15:49769Fbynzpaw Anjum TLKMJVXVLN4237-31-54 16:15:0021.3[facility] OkhifhqWEQIBKSLZI0691-00-59 16:15:00 33.1[facility] BethrlwOEUFHGUQKF2775-43-99 16:15:00* Test Item Value Reference Range Interpretation Comments MCH (test code = MCH) 30.8 pg 27.0-31.0 [facility] AwmayuwRVDVHUKHTB7977-44-48 16:15:0093.1[facility] HermannHEMATOLOGY 2017-03-04 16:15:0031.4[facility]annSPECIAL SWHIZZUAO9725-90-40 16:15:006.9 [facility]URINE AND VHIOC0190-13-26 08:52:00<1[facility]UR[facility] AND BOIKT1434-72-39 08:52:00Negative (03/04/17 2:52 AM)[facility] DIUXB9191-95-73 08:52:002.0[facility] AND LWUQU7336-04-48 08:52:00 Negative (03/04/17 2:52 AM)[facility] AND JVKUQ3909-05-89 08:52:00 Negative (03/04/17 2:52 AM)[facility] JMDVO3430-84-07 08:52:00* Test Item Value Reference Range Interpretation Comments UA Spec Grav (test code = UA Spec Grav) 1.009 1 [facility] IKHJL1002-63-96 08:52:00* Test Item Value Reference Range Interpretation Comments UA pH (test code = UA pH) 7.0 1 5.0-8.0 [facility] AND PWLMK0522-19-66 08:52:00Negative *NA*(03/04/17 2:52 AM) [facility] VSANN4464-83-61 08:52:00Yellow *NA*(03/04/17 2:52 AM) [facility] KVUCV6444-75-18 08:52:00Clear (03/04/17 2:52 AM) [facility] UugmdwoAHPDDWYGHW8534-61-30 15:17:00Moderate *ABN*(03/03/17 9:17 AM) [facility] CsrjpksBQTMQWCDOQ0750-31-30 15:17:001+ *ABN*(03/03/17 9:17 AM)[facility] XixgmmfZGXBKEPBMF7988-41-09 15:17:000.1[facility] HermannSPECIAL CHEMISTRY 2017-03-03 15:17:007.2[facility] HermannANEMIA RYGGE7326-68-80 17:42:0011.0 [facility] HermannANEMIA ROXOD8779-81-23 17:42:06208Shxeluzb HermannANEMIA STUDY 2017-03-02 17:42:12311Rnhatixi HermannANEMIA SFHFK1133-81-46 17:42:66688Ienvtvil HermannANEMIA QTFER1502-18-17 17:42:0041[facility] HermannANEMIA ZDBYG3852-28-84 17:42:0022[facility] HermannANEMIA LLWKG5531-92-41 17:42:64953Zhkpzvyw Anjum ANEMIA XGFPZ7130-98-96 17:42:61331Bqvqqleb HermannCHEM SPGVU3083-35-78 12:19:00 1.8[facility] HermannCHEM PTDWO9294-40-11 12:19:002.1[facility] HermannHEMATOLOGY 2017-03-02 12:19:000.0[facility] ZcegiosHSMWAPJTGR6208-31-30 12:19:001[facility] FrlsackPJKMXRNGEK5481-96-87 12:19:00Normal (03/02/17 6:19 AM)[facility] WYFISXICAP8526-13-35 12:19:002.0[facility] HdbctnjRWOHIQJJUO3725-54-12 12:19:000.0 [facility] HermannBLOOD BANK DDDLRSZ2569-01-02 09:59:00Negative (03/01/17 3:59 AM) [facility]annCHEM SDCNO6608-16-24 09:59:001.9[facility] HermannCHEM PANEL 2017-03-01 09:59:002.6[facility] QrhmuayOTWRIKAPCZ1396-60-50 09:59:00* Test Item Value Reference Range Interpretation Comments PT (test code = PT) 17.2 s 12.0-14.7 [facility] HlbuivnLGCJYQOROS7998-55-96 09:59:00* Test Item Value Reference Range Interpretation Comments INR (test code = INR) 1.40 1 0.85-1.17 [facility] YuzxpgqEFQVDICYQO3862-17-89 09:59:00* Test Item Value Reference Range Interpretation Comments PTT (test code = PTT) 34.6 s 22.9-35.8 [facility] HermannPARATHYROID YPFBXEU2372-96-00 09:59:001.19[facility] PARATHYROID DONUEUW6658-73-02 09:59:001.20[facility] HermannCHEM CVFLJ5025-21-42 13:40:000.24[facility] HermannCHEM DFLFL2657-65-31 08:35:000.6[facility] HermannCHEM KYNZX7924-65-97 08:35:002.4[facility] HermannCHEM GFDHW1078-21-96 08:35:002.0 [facility]annCHEM KYTDX9183-41-56 08:35:002.2[facility] HermannHEMATOLOGY 2017-02-28 08:35:00* Test Item Value Reference Range Interpretation Comments PT (test code = PT) 17.1 s 12.0-14.7 [facility]opyskPGIPDUQPWR1985-74-35 08:35:002.42[facility]annHEMATOLOGY 2017-02-28 08:35:00* Test Item Value Reference Range Interpretation Comments INR (test code = INR) 1.39 1 0.85-1.17 [facility] HospitalZpiudffAIHVZZHSCT4716-88-68 08:35:00* Test Item Value Reference Range Interpretation Comments Thrombin Time (test code = Thrombin Time) 20.7 s 15.0-21.2 [facility] CenterVueosbeZWJNWBAEIQ0387-12-99 08:35:00* Test Item Value Reference Range Interpretation Comments PTT (test code = PTT) 33.6 s 22.9-35.8 [facility] HospitalMmaxujwSVDLKCFMCV3521-16-68 08:35:86924Idjvoeno HermannPARATHYROID UBYDSKP2999-35-27 08:35:001.25[facility] HermannPARATHYROID COEWQTA9112-65-61 08:35:001.22[facility] HermannCHEM HHTEO4452-82-44 09:24:000.2[facility] HermannCHEM CRVUQ5706-64-92 09:24:00<10[facility] HermannCHEM PFTLZ8826-86-35 09:24:90628 [facility] HermannCHEM VVAHH7023-61-71 09:24:001.1[facility] 2017-02-27 09:24:00Normal (02/27/17 3:24 AM)[facility] CenterJmlhndiQBBZRMWVWT3651-70-15 09:24:00* Test Item Value Reference Range Interpretation Comments Thrombin Time (test code = Thrombin Time) 17.1 s 15.0-21.2 [facility] HospitalBovipnrGAKVIZELHO9292-05-76 09:24:00* Test Item Value Reference Range Interpretation Comments PTT (test code = PTT) 30.8 s 22.9-35.8 [facility] EwiynozDQRNPUWQZV3774-65-58 09:24:37405Fsonvmmt HermannHEMATOLOGY 2017-02-27 09:24:002.28[facility] IcmebksRYJQXVSCOV7246-62-54 09:24:00* Test Item Value Reference Range Interpretation Comments INR (test code = INR) 1.36 1 0.85-1.17 [facility] KcnbwdqBQBVYKYSQT4418-60-28 09:24:00* Test Item Value Reference Range Interpretation Comments PT (test code = PT) 16.8 s 12.0-14.7 [facility] HermannPARATHYROID ZRXTKFP5271-85-54 09:24:001.21[facility] PARATHYROID AKMNGEV0811-64-91 09:24:001.23[facility] HermannCHEM BXMDJ6280-06-53 08:26:000.2[facility] HermannCHEM YGMOX2326-52-90 08:26:00<10[facility] HermannCHEM JOSVA0696-12-38 08:26:14198Qlfbbmdf HermannCHEM PKQTO8412-98-23 08:26:001.0 [facility] GyzwxroFAUHRRXJCN5834-21-90 08:26:002.0[facility] HermannHEMATOLOGY 2017-02-26 08:26:000.0[facility] FqfisprYTBNXGFQKX9054-91-26 08:26:001.29[facility] VblavxfQFLBLEUABC0316-49-31 08:26:00* Test Item Value Reference Range Interpretation Comments Thrombin Time (test code = Thrombin Time) 17.4 s 15.0-21.2 [facility] IubmamzKHVVLOEGXX2359-94-12 08:26:24781Zvtniqcs HermannBLOOD BANK NNBIILH4161-54-38 08:53:00Negative (02/25/17 2:53 AM)[facility] HermannCHEM PANEL 2017-02-25 08:53:000.6[facility] HermannBLOOD BANK YHOHKKX8304-88-02 06:20:54 Product available (02/25/17 12:20 AM)[facility]annBLOOD BANK KBRLXEL3043-80-79 06:20:54Product available (02/25/17 12:20 AM)[facility] SxbbmannBLOOD BANK RESULTS 2017-02-25 06:20:54Modification Required (02/25/17 12:20 AM)[facility]UR[facility] AND XWMRW9147-82-86 23:16:00Negative (02/24/17 5:16 PM)[facility]UR[facility] AND UFTCU6853-82-84 23:16:002[facility]annUR[facility] AND JIJUP9410-27-26 23:16:003 [facility] AND JXRKZ6526-70-94 23:16:00Negative (02/24/17 5:16 PM) [facility] AND VBGQP3074-70-38 23:16:00Negative *NA*(02/24/17 5:16 PM) [facility] GYFNF7785-10-76 23:16:00Negative (02/24/17 5:16 PM) [facility] DWMZE4961-54-41 23:16:00Clear (02/24/17 5:16 PM) [facility] SPXER0638-38-20 23:16:00* Test Item Value Reference Range Interpretation Comments UA Spec Grav (test code = UA Spec Grav) 1.017 1 [facility]UR[facility] AND XQBYN8524-45-13 23:16:00Yellow *NA*(02/24/17 5:16 PM) [facility]UR[facility] DTCAA0025-16-42 23:16:00* Test Item Value Reference Range Interpretation Comments UA pH (test code = UA pH) 8.5 1 5.0-8.0 [facility] HermannBLOOD BANK QYKZIVN8087-08-68 21:46:23Product available (02/24/17 3:46 PM)[facility] HermannCHEM AYLWR5420-08-78 10:31:000.7[facility] MOLECULAR TMPCGJHMRB3018-07-52 03:22:00Negative (02/23/17 9:22 PM)[facility] HermannMOLECULAR OCUGJPLLXC2025-65-40 03:22:00Negative (02/23/17 9:22 PM)[facility] HermannMOLECULAR LGYDEISBEB7235-87-22 03:22:00Negative (02/23/17 9:22 PM)[facility] HermannMOLECULAR MKQHZBRUDM2263-52-00 03:22:00Flocked SENIOR POLICY 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 Swab (02/23/17 9:22 PM) [facility]annMOLECULAR QSTWRPLHDG0897-67-87 03:22:00Negative (02/23/17 9:22 PM)[facility] HermannMOLECULAR YWGQTYJFJR2653-96-90 03:22:00Flocked SENIOR POLICY ASSOCIATE Swab (02/23/17 9:22 PM)[facility] HermannMOLECULAR YFUGYQKVZJ5363-66-18 03:22:00Negative (02/23/17 9:22 PM)[facility] HermannMOLECULAR UGEGNLLCON1807-13-79 03:22:00Negative (02/23/17 9:22 PM)[facility] HermannMOLECULAR BOSSXTVQVZ9488-32-69 03:22:00Flocked SENIOR POLICY ASSOCIATE Swab (02/23/17 9:22 PM)[facility] HermannMOLECULAR RDBAKSYEWH0116-39-20 03:22:00 Negative (02/23/17 9:22 PM)[facility] QUIJNBB5373-98-33 01:32:32 Product available (02/23/17 7:32 PM)[facility] HermannBLOOD BANK OYJJPPF1233-46-65 01:32:32Product available (02/23/17 7:32 PM)[facility] HermannBLOOD BANK RESULTS 2017-02-24 01:32:32Product available (02/23/17 7:32 PM)[facility] HermannBLOOD BANK EAVZSMW7741-41-94 01:32:32Product available (02/23/17 7:32 PM)[facility] OOSPQVW3437-24-32 01:32:32Product available (02/23/17 7:32 PM)[facility] CenterGbercowNXKSUWCMHM6068-00-38 21:15:000.0[facility] TdcqyabRCHZDNKPWC3889-24-39 21:15:00See Note (02/23/17 3:15 PM)[facility] KmqbzqeZSSZRVCQGG9104-17-71 21:15:00 * Test Item Value Reference Range Interpretation Comments Coag Index Hep (test code = Coag Index Hep) 0.9 1 <=3.0 [facility] NmywkqaATIZFQZEXR0431-88-64 21:15:00* Test Item Value Reference Range Interpretation Comments R-Time Hep (test code = R-Time Hep) 5.7 min 5.0-10.0 [facility] UlovibzVBJZAVLXLT7790-74-27 21:15:008.9[facility] HermannHEMATOLOGY 2017-02-23 21:15:00* Test Item Value Reference Range Interpretation Comments Max Amp Hep (test code = Max Amp Hep) 64.1 mm 50.0-70.0 [facility] OznqketIYIQNXFRIR3043-07-93 21:15:00* Test Item Value Reference Range Interpretation Comments Angle Hep (test code = Angle Hep) 67.5 degrees 53.0-72.0 [facility] ZpdsfhxLNZZFNSCXI6786-95-61 21:15:00* Test Item Value Reference Range Interpretation Comments K-Time Hep (test code = K-Time Hep) 1.6 min 1.0-3.0 [facility] CenterVrxnltnCCWDHLONZG7435-46-84 09:50:001+ *ABN*(02/23/17 3:50 AM)[facility] AsaldilQSCSTFCEED9020-55-54 09:50:31683Kfvlexxc HermannBACTERIAL - SEROLOGY 2017-02-23 02:26:00Negative (02/22/17 8:26 PM)[facility] RES[facility] 2017-02-23 02:17:00Negative (02/22/17 8:17 PM)[facility] HermannHEMATOLOGY 2017-02-22 11:21:002+ *ABN*(02/22/17 5:21 AM)[facility] HermannCARDIAC ENZYMES 2017-02-20 12:32:78599Fbgioehb LdbckqqHJKPUPYIWL7802-71-33 12:32:000.0[facility] YxdxaioLADRQKYNTN8083-98-85 12:32:000.0[facility] RwrwkybQHLTFHJYQX9058-20-59 12:32:00* Test Item Value Reference Range Interpretation Comments Tot Cell Ct (test code = Tot Cell Ct) 100 1 [facility] KmzphjqLLMWPCACIS8478-03-00 20:36:00* Test Item Value Reference Range Interpretation Comments PTT (test code = PTT) 55.7 s 22.9-35.8 [facility] ZrksaadCVPCWYBBGS3794-65-92 14:59:00* Test Item Value Reference Range Interpretation Comments PTT (test code = PTT) 61.5 s 22.9-35.8 [facility] QectfzxLCDMEMZIUE6270-90-13 14:59:00* Test Item Value Reference Range Interpretation Comments INR (test code = INR) 1.27 1 0.85-1.17 [facility] SfqylkaSQJTZKRDOX2273-92-20 14:59:00* Test Item Value Reference Range Interpretation Comments PT (test code = PT) 16.0 s 12.0-14.7 [facility] PkrpxaxWZGUNBKSLYAY7365-19-02 14:55:009.5[facility] HermannELECTROLYTES 2017-02-19 14:55:0032[facility] GqouvpoPDEEDXYWNZTM3326-89-11 14:55:0093[facility] QqjsvdzACQMFVAKZZBE1496-67-91 14:55:008.8[facility] CatfaslYHELFPONMLYO6965-06-97 14:55:0078[facility] UyheqiiXKDFRQWOBEPB2819-44-93 14:55:003.5[facility] YEFUBNHFVCBL3914-59-38 14:55:77520Poofxkbj UrfjgitBNUKAUIHLHHX8240-62-14 14:55:001.02[facility] NjvogfeRXPCKYMNEYOF2117-92-50 14:55:0022[facility] BZZVPCPIACFT2629-48-47 14:55:14859Tcngbluy ZgainpgBLNJFTYDLA4971-01-43 14:55:00 9.4[facility] KhipeagPUCPJBBBBJ0025-92-28 14:55:004.16[facility] HermannHEMATOLOGY 2017-02-19 14:55:007.6[facility] BjefiwqHPVEIKOYKS9678-05-96 14:55:79389Iqtftrzb ReotjtkBYXXSIXONA5460-97-21 14:55:0013.0[facility] IacjpjeHGKJFTJUTX5076-25-08 14:55:00* Test Item Value Reference Range Interpretation Comments MCH (test code = MCH) 36.6 pg 27.0-31.0 [facility] NybjyokJWNJXYVYDF9063-54-28 14:55:0035.0[facility] HermannHEMATOLOGY 2017-02-19 14:55:08985.5[facility] MznlosnWGHIFYNTKW4912-96-70 14:55:0043.5 [facility] CncaowdNSGIQIUGDX3032-76-13 14:55:0015.2[facility] HermannCHEM PANEL 2017-02-19 07:08:001.5[facility] PmdmatvIBHLOAJWVH9109-49-89 07:08:00* Test Item Value Reference Range Interpretation Comments PT (test code = PT) 15.4 s 12.0-14.7 [facility] RoywqbfZLOGVARQPR2025-14-28 07:08:00* Test Item Value Reference Range Interpretation Comments INR (test code = INR) 1.21 1 0.85-1.17 [facility] RgkdunrBFSPLDSEHL0694-52-67 07:08:00* Test Item Value Reference Range Interpretation Comments PTT (test code = PTT) 46.1 s 22.9-35.8 [facility] HermannCARDIAC DIMRAPY3675-25-44 13:25:84035Dhrtkwcl HermannCHEM PANEL 2017-02-18 13:25:0076[facility] HermannCHEM XVQES8209-80-15 13:25:001.2[facility] HermannCHEM EGYAA9232-49-95 13:25:006.7[facility] HermannCHEM YSBKO8854-34-95 13:25:002.9[facility] HermannCHEM RELRE7811-97-97 13:25:003.7[facility] HermannCHEM NJOOW2727-28-88 13:25:0094[facility] HermannCHEM PEYQX3012-19-99 13:25:009.4 [facility] HermannCHEM SPNYQ0532-57-94 13:25:70758Vsugezlp HermannCHEM PANEL 2017-02-18 13:25:0030[facility] HermannCHEM PQOKG9207-11-75 13:25:001.04[facility] HermannCHEM WBFOQ5264-96-67 13:25:49443Zhdtowug HermannCHEM RXLHV1516-98-96 13:25:0026[facility] HermannCHEM FOBAK6737-92-16 13:25:0044[facility] HermannCHEM DWKCB3954-44-40 13:25:0066[facility] HermannCHEM ULYFF1228-40-79 13:25:0053 [facility] HermannCHEM EWJFP7720-82-61 13:25:00* Test Item Value Reference Range Interpretation Comments B/C Ratio (test code = B/C Ratio) 25 1 6-25 [facility] HermannCHEM NJAUQ3088-38-27 13:25:003.8[facility] HermannCHEM PANEL 2017-02-18 13:25:0012.7[facility] HermannCHEM RDXPG6430-89-53 13:25:00* Test Item Value Reference Range Interpretation Comments A/G Ratio (test code = A/G Ratio) 0.8 1 0.7-1.6 [facility] SjnphrrSXFBISRIMN2394-74-99 13:25:36263Qlfjhibi HermannHEMATOLOGY 2017-02-18 13:25:009.2[facility] GtgfgzuIALNOPAVAH5807-96-71 13:25:0016.3[facility] VwpsailVRQDUYUJRX7751-35-82 13:25:0034.8[facility] CviwzznGTKJEUKZWI6619-02-32 13:25:0013.2[facility] VeaygkwBVMFDLTHJY7967-76-93 13:25:15126.9[facility] BVAXKTRPKJ0718-42-18 13:25:00* Test Item Value Reference Range Interpretation Comments MCH (test code = MCH) 36.9 pg 27.0-31.0 [facility] NsmyndzAZYJJCYKRU6871-32-47 13:25:0046.9[facility] HermannHEMATOLOGY 2017-02-18 13:25:004.43[facility] VowvocoEBSNQGROWE1570-67-78 13:25:009.6[facility] CvlpgvwSKGQUWXAHJ4652-34-88 13:25:003.4[facility] TptwqsxPTATUZKMMX9036-90-66 13:25:001.6[facility] NsrrhrdABSPYWEJZO0580-14-48 13:25:000.1[facility] OSBYFEMQEP7225-25-26 13:25:000.2[facility] GgrbvtcUKKOFKHUXW8454-84-37 13:25:00 45.0[facility] DbkudhkMNAVUWPHSO2574-65-85 13:25:004.3[facility] HermannHEMATOLOGY 2017-02-18 13:25:001+ *ABN*(02/18/17 7:25 AM)[facility] EvsppchGXGSWDPBIK3654-24-22 13:25:0017.0[facility] ViubdcsNAMHLPRHYH5314-39-13 13:25:000.7[facility] PGWIKLOHJQ4877-83-92 13:25:0035.1[facility] EomkszoOFMPOCMWGL2935-35-86 13:25:00 2.2[facility] MgtvnowVTEIDGWOEQ1515-86-36 11:44:009.2[facility] HermannHEMATOLOGY 2017-02-17 11:44:0013.5[facility] JrjpxfiOZYOWBGOKS3182-35-39 11:44:63107Xyqfdklb NgzswaqITYOTDISAR3571-74-19 11:44:00* Test Item Value Reference Range Interpretation Comments MCH (test code = MCH) 36.3 pg 27.0-31.0 [facility] YzjtdbsKFGAUAUFDN2967-22-12 11:44:0034.2[facility] HermannHEMATOLOGY 2017-02-17 11:44:008.0[facility] OivxcbmOUVGUWMPFY9771-69-23 11:44:0016.4[facility] IuvoaudRKQSFQIFIV7928-04-75 11:44:0047.9[facility] TphehwzALDIAWSPWK5001-60-95 11:44:58140.3[facility] SqkkgunEWYBXXIOWD7246-64-68 11:44:004.50[facility] PHZPWOQQHJ8749-47-22 11:44:0030.1[facility] FtnfhhkYVAXYPLLSV1196-15-89 11:44:00 53.0[facility] WfzoihqYBUXXMSYHP4794-60-39 11:44:00Normal (02/17/17 5:44 AM) [facility] ZdbutitECGEGHZXBU9721-92-29 11:44:00Normal (02/17/17 5:44 AM)[facility] FctwhkySLKRFGQVXG2168-67-13 11:44:000.1[facility] JzsdahyPSNFGDITJI0037-51-06 11:44:001.1[facility] PrjncnpYFJGVXTVAD6663-85-27 11:44:002.4[facility] BMDOVDNCQL8433-90-07 11:44:000.2[facility] CzvsfacOYAFABGOXK2626-79-32 11:44:004.2 [facility] NgbrzcqISZDQYOEQL9279-22-09 11:44:001.0[facility] HermannHEMATOLOGY 2017-02-17 11:44:002.1[facility] GgresmkQXUBUAKZNX4710-24-60 11:44:0013.8[facility] FqrfqxkEVJHWVPVFI0619-60-95 01:42:0012.5[facility] KewjookXENHCHUZVU5022-52-36 01:42:0018.7[facility] OhjzkexLHFTYQJCYQ5718-79-94 01:42:0066.7[facility] XPFIZBAMAC4837-94-33 01:42:005.2[facility] ZixkfocVBDSUDXADI6526-63-69 01:42:001.5 [facility] KrijjnwXPYNXTAEPS5519-87-98 01:42:001.4[facility] HermannHEMATOLOGY 2017-02-17 01:42:000.7[facility] NwxnmaaHUBOJGPNTZ8462-54-94 01:42:000.1[facility] LfchextPMNEKGKBXE1263-53-49 01:42:000.1[facility] LnpvwdjUZIONWCEBY0892-25-36 01:42:001.0[facility] QodrstbFTVBHHLUSI6156-46-28 01:42:00* Test Item Value Reference Range Interpretation Comments PT (test code = PT) 14.1 s 12.0-14.7 [facility] AcrtohqAAFSFRYRHW7252-79-08 01:42:00* Test Item Value Reference Range Interpretation Comments INR (test code = INR) 1.09 1 0.85-1.17 [facility] HermannCARDIAC ODFYNNF0315-30-87 00:56:68739Dtkytaxd HermannCHEM PANEL 2017-02-16 00:56:0066[facility]annCHEM QRENF3331-20-33 00:56:004.3[facility] HermannCHEM LJENL6068-39-48 00:56:31678Zzygdoym HermannCHEM QZBLD3240-94-06 00:56:0098[facility]annCHEM BZZBG3586-96-51 00:56:23312Nofnraub HermannCHEM PATJT9763-02-83 00:56:0024[facility]annCHEM NCFHI6439-77-67 00:56:001.17 [facility]annCHE[facility] LRDWS2159-63-91 00:56:009.4[facility] HermannCHEM PANEL 2017-02-16 00:56:0025[facility] HermannCHEM BGWVY1874-67-54 00:56:0014.3[facility]annURINE AND SUMUT0113-62-24 17:19:52Negative (02/15/17 11:19 AM)[facility] WVCSV7706-58-61 17:19:52<1[facility] STOOL 2017-02-15 17:19:522[facility] CFQDM9383-73-88 17:19:52Negative (02/15/17 11:19 AM)[facility] GAQMP2435-37-53 17:19:52Negative *NA*(02/15/17 11:19 AM)[facility] [id number] 17:19:52Negative (02/15/17 11:19 AM)[facility] TJYAP5774-62-20 17:19:52* Test Item Value Reference Range Interpretation Comments UA Spec Grav (test code = UA Spec Grav) 1.027 1 [facility] JVBJA0004-09-75 17:19:52* Test Item Value Reference Range Interpretation Comments UA pH (test code = UA pH) 5.5 1 5.0-8.0 [facility] JYHAF6201-85-13 17:19:52Yellow *NA*(02/15/17 11:19 AM) [facility] ZNIIZ5242-14-56 17:19:52Clear (02/15/17 11:19 AM) [facility] SESIWLQ1766-86-13 16:17:000.02[facility]ann[facility]ARD[facility]AC URFRBHG2124-99-43 16:17:003.7[facility]annCARDIAC YLSRTBQ3822-07-81 16:17:00 104[facility]annCARDIAC GPAOVDM9640-06-86 16:17:00* Test Item Value Reference Range Interpretation Comments CK MB Index (test code = CK MB Index) 3.6 1 <=2.5 [facility]CHE[facility] TQNQI0471-53-44 16:17:001.9[facility] HermannCHEM PANEL 2017-02-15 16:17:00* Test Item Value Reference Range Interpretation Comments A/G Ratio (test code = A/G Ratio) 0.8 1 0.7-1.6 [facility] WLRTW1000-28-37 16:17:007.6[facility]annCHEM PANEL 2017-02-15 16:17:003.4[facility] HermannCHEM KLSHN9638-38-13 16:17:0071[facility]annCHEM XZICG3843-52-62 16:17:001.4[facility] HermannCHEM EIDMX2771-39-25 16:17:00* Test Item Value Reference Range Interpretation Comments B/C Ratio (test code = B/C Ratio) 21 1 6-25 [facility] SCBEJ4452-48-04 16:17:004.2[facility] HermannCHEM PANEL 2017-02-15 16:17:0058[facility] HermannCHEM OSZQC9877-02-82 16:17:0037[facility] ABDOMEN W/O ODVL6651-20-49 16:29:00 FAX: Mindi Arroyo MD [phone] [place]: [facility]: [facility] FAX: Jesenia Brandon MD [phone] Patient Name: ANKUR DEGROOT Unit No: [id number] EXAMS: CPT CODE: [id number] MRI ABDOMEN W/O CONT 92299 MRI/MRCP abdomen 04/30/2011. INDICATION: right upper quadrant [...] MD; Jesenia Durham MD Dictated Date/Time: 04/29 (5964)Technologist: Richardson Hernández Transcribed Date/Time: 04/30/2011 (9540) By: Judd Orig Print D/ T: S: 04/30/2011 (5835) KAELYN Allen NAME: ANKUR DEGROOT MEDICAL IMAGING PHYS: Mindi Foley MD [address] [place] [address] : 1955 AGE: 55 SEX: Bertrand ALLEN, NONA [id number] ACCT NO: [id number] LOC: UNK PHONE #: [phone] EXAM DATE: 2011 STATUS: [address] FAX #: [phone] RAD NO: DC D t: PAGE 1 Signed Report - HEPA IMAG INCL GB W [id number] 11:48:00 Patient Name: ANKUR DEGROOT Unit No: [id number] EXAMS: CPT CODE: [id number] HEPA IMAG INCL GB W PHA 81022 Hepatobiliary scan with gallbladder ejection fraction 04/30/2011. [...] DEGROOT MEDICAL IMAG[facility] PHYS: Jesenia Hollins MD [address] [place] [address] : 1955 AGE: 55 SEX: Bertrand ALLEN, NONA [address] [place], [place] [address]T NO: [id number] LOC: [employer] PHONE #: [phone] EXAM DATE: 04/30/2011 STAT US: [employer] FAX #: [phone] RAD NO: DC Dt: PAGE 1 Signed Report ---- Patient Name: ANKUR DEGROOT Unit No: [id number] XAMS: CPT CODE: [id number] HE PA IMAG INCL GB W PHA 89653 <Continued> Technologist: Eliseo Navarrori bed Date/Time: 04/30/2011 (1148) - tADRY Orig Print D/T: S: 04/30/2011 (3109) KAELYN Allen NAME: ANKUR DEGROOT MEDICAL IMAGING PHYS: Jesenia Hollins MD [address] [place] [address] : 1955 AGE: 55 SEX: Bertrand ALLEN, NONA [address] LOC: UNK PHONE #: [phone] EXAM DATE: 04/30/2011 STATUS: UNK FAX #: [phone] RAD NO: DC Dt: PAGE 2 Signed Report - US ABDOMEN [id number] 13:49:00 Patient Name: ANKUR DEGROOT Unit No: [id number] EXAMS: CPT CODE: [id number] US ABDOMEN COMPLETE 35494 Abdominal ultrasound complete HISTORY: Cholecystitis versus pancreatitis. [...] Durham MD Technologist: Cassidy Hill Trnscrbd D/ (1060) [email or web address] Probe: Orig Print D/T: S: 04/29/2011 (2714) Probe: KAELYN Allen NAME: ANKUR DEGROOT [facility] MEDICAL IMAGING PHYS: Jesenia Hollins MD [address] [place] [address] : 1955 AGE: 55 SEX: NONA MCMAHON [address] LOC: UNK P MICAH #: [phone] EXAM DATE: 04/29/2011 STATUS: UNK FAX #: [phone] RAD NO: Page 1 Sig camila Report - XR CHEST 1 [id number] 08:46:00 FAX: Jesenia Brandon MD [phone] [place]: St: UNK Patient Na me: ANKUR DEGROOT Unit No: [id number] EXAMS: CPT CODE: [id number] XR CHEST 1 V 77236 HISTORY: Acute cholecystitis COMPARISON: 03/24/10 FINDINGS: The lungs are clear and normally expanded. The heart and pulmonary vascula ture is normal. Osseous structures are unremarkable. IMPRESSION: Normal chest x-ray at 0846 Reported and signed by: Nasim Salcedo M.D. CC: Jesenia Durham MD Dictated Date/Time: 04/29/2011 (0846)T echnologist: Mehrdad Camejo Transcribed Date/Time: 04/29/2011 (0846) By: [email or web address] Orig Print D/T: S: 012 (0850) [facility] Tiffany NAME: ANKUR DEGROOT [facility] IM[facility] PHYS: Jesenia Hollins MD [address] [place] [address] : 1955 AG E: 55 SEX: NONA [place] [address] LOC : K PHONE #: [phone] EXAM DATE: 04/29/2011 STATUS: [employer] FAX #: [phone] RAD NO: DC Dt: PAGE 1 Signed Report - CT ABD PELVIS W/[id number] 08:25:00 Patient Name: ANKUR DEGROOT Unit No: [id number] EXAMS: CPT CODE: [id number] CT ABD PELVIS W/CONT 20818 CT abdomen and pelvis with contrast: HISTORY: [...] from old study of 07/11/09. POS: Tiffany [facility] [place] NAME: MEE DEGROOT MEDICAL IMAGING DEPARTMENT PHYS: Liset May MD [address] [place] [address] BLVD : 1955 AGE: 55 SEX: [place] [address] LOC: UNK PHONE #: [phone] EXAM DATE: 03/16/2011 STATUS: UNK FAX #: [phone] RAD #: D/C DT PAGE 1 Signed Report (CONTINUED) Patient Name: ANKUR DEGROOT Unit No: [id number] EXAMS: CPT CODE: [id number] CT ABD PELVIS W/CONT 32913 <Continued> at 0832 Reported and signed by: Chace Lowry M.D. CC: Liset Collins MD Dictated Date/Time: 03/16/2011 (824) Technologist: Jose Antonio Griffiths; ELDA Styles CTDI: DLP: Trnscrpt: 03/16/2011 (0832) Charlene KAELYN Allen NAME: ANKUR DEGROOT [facility] PHYS: Liset May MD [address] [place] [address] : 1955 AGE: 55 SEX: Bertrand [place] [address] LOC: [address] PHONE #: EXAM DATE: 03/16/2011 STATUS: UNK FAX #: RAD #: D/C DT PAGE 2 Signed Report Patient Name: Brandee DEGROOT Unit No: [id number] EXAMS: CPT CODE: [id number] CT ABD PELVIS W/CONT 25417 <Continued> Orig Print D/T: S: 03/16/2011 (0835) KAELYN Allen NAME: ANKUR DEGROOT [facility] PHYS: Liset May MD [address] [place] [address] BLVD : 1955 AGE: 55 SEX: Bertrand [place] [address] LOC: UNK PHONE #: [phone] EXAM DATE: 03/16/2011 STATUS: UNK FAX #: [phone] RAD #: D/C DT PAGE 3 Signed Report - CT ABD PELVIS W WO [id number] 14:33:00 Patient Name: ANKUR DEGROOT Unit No: [id number] EXAMS: CPT CODE: [id number] CT ABD PELVIS W WO CONT [address] DIAGNOSIS: Abdominal pain. [...] calculi and bladder stone. 4. Fatty liver [facility] Tiffany NAME: ANKUR DEGROOT MEDICAL IMAGING PHYS: Liset May MD [address] [place] [address] BLVD : 1955 AGE: 55 SEX: NONA [place] [address] LOC: [facility] PHONE #: [phone] EXAM DATE: 03/09/2011 STATUS: UNK FAX #: [phone] RAD #: D/C DT PAGE 1 Signed Report (CONTINUED) Patient Name: ANKUR DEGROOT Unit No: [id number] EXAMS: CPT CODE: [id number] CT ABD PELVIS W [place] CONT 30683 <Continued> at 1437 Reported and signed by: Jose Antonio Stanton M.D. CC: Liset Collins MD Dictated Date/Time: 03/09/2011 (1433) Technologist: Jose Antonio Griffiths CTDI: DLP: Trnscrpt: 03/09/2011 (8217) NormanP KAELYN Allen NAME: ANKUR DEGROOT MED[facility] IMAG[facility] PHYS: Liset May MD [address] [place], [place] [address]VD : 1955 AGE: 55 SEX: Bertrand [place] [address] LOC: UNK PHONE #: [phone] EXAM DATE: 03/09/2011 STATUS: UNK FAX #: [phone] RAD #: D/C DT PAGE 2 Signed Report Patient Name: ANKUR DEGROOT Unit No: [id number] EXAMS: CPT CODE: [id number] CT ABD PELVIS W WO CONT 43057 <Continued> Orig Print D/T: S: 03/09/2011 (5862) KAELYN [place] NAME: ANKUR DEGROOT MEDICAL IMAGING PHYS: Liset May MD [address] [place] [address] BLVD : 1955 AGE: 55 SEX: NONA [place] [address] LOC: UNK PHONE #: [phone] EXAM DATE: 03/09/2011 STATUS: UNK FAX #: [phone] RAD #: D/C DT PAGE 3 Signed Report - XR FOOT 3 + V [id number] 16:51:00 FAX: Liset Kaplan MD [phone] [place]: St: UNK Patient Na me: ANKUR DEGROOT Unit No: [id number] EXAMS: CPT CODE: [id number] XR FOOT 3 + V RT 43797 Right foot x-ray exam, 3 views, 03/06/2011. [...] Dictated Date/Time: 03/06/2011 ( 1650)Technologist: Arielle Russell; [place] Transc ribed Date/Time: 03/06/2011 (1650) By: [email or web address] Orig Print D/T: S: 0 03/06/2011 (1655) KAELYN Tiffany NAME: ANKUR DEGROOT MED[facility] IMAG[facility] PHYS: Liset May MD [address] [place] [address] BLVD : [birth year] AGE: 55 SEX: Bertrand [place] [address] 05 LOC: UNK PHONE #: [phone] EXAM DATE: 03/06/2011 ST ATUS: ROLYK FAX #: [phone] RAD NO: DC Dt: PAGE 1 Signed Report - CT ABD PELVIS W WO [id number] 13:23:00 Patient Name: ANKUR DEGROOT Unit No: [id number] EXAMS: CPT CODE: [id number] CT ABD PELVIS W WO CONT 14161 PRE- AND POST-IV CONTRAST CT ABDOMEN AND [...] D.O. CC: Liset Collins MD Dictated Date/Time: (4386) Technologist: Jose Antonio Griffiths; ELDA Styles CTDI: DLP: Trnscrpt: 03/04/2011 (9747) Judd [facility] chriskorina NAME: [facility]: Liset May MD [address] [place] [address] BLVD : 1955 AGE: 55 SEX: NONA [place] [address] LOC: UNK PHONE #: [phone] EXAM DATE: 03/04/2011 STATUS: UNK FAX #: [phone] RAD #: D/C DT PAGE 1 Signed Report Patient Name: ANKUR DEGROOT Unit No: [id number] EXAMS: CPT CODE: [id number] CT ABD PELVIS W WO CONT 06675 <Continued> Orig Print D/T: S: 03/04/2011 (4096) KAELYN Allen NAME: DEBBIANKUR SILVA [facility] PHYS: Liset May MD [address] [place] [address] BLVD : 1955 AGE: 55 SEX: NONA [place] [facility] LOC: UNK PHONE #: [phone] EXAM DATE: 03/04/2011 STATUS: [address] FAX #: [phone] RAD #: D/C DT PAGE 2 Signed Report - HEPA IMAG INCL [id number] 10:45:00 Patient Name: ANKUR DEGROOT Unit No: [id number] EXAMS: CPT CODE: [id number] [place] [address] Radionuclide hepato biliary scan. HISTORY: Pancreatitis COMMENT: [...] 03/04/2011 at 1046 Reported and signed by: Sebasitán Lowry M.D. Nuclear Medicine Cardiol ogy exams performed on dual head cameras with appropriate software for proce ssing and reporting. CC: Liset Colilns MD [facility] Tiffany NAME: ANKUR CHAVIRA MEDICAL IMAGING PHYS: Liset May MD [address] [place] [address] : 1955 A GE: 55 SEX: Bertrand [place] [address] L OC: UNK PHONE #: [phone] EXAM DATE: 03/04/2011 STATU S: [address] FAX #: [phone] RAD NO: DC Dt: PAGE 1 Signed Report --- Patient Name: ANKUR DEGROOT Unit No: [id number] EX AMS: CPT CODE: [id number] [place] [address] <Continued> Technologist: Rupali Khan Transcri bed Date/Time: 03/04/2011 (1046) - tRONNY Orig Print D/T: S: 03/04/2011 (5680) KAELYN Allen NAME: ANKUR DEGROOT MEDICAL IMAGING PHYS: Liset May MD [address] [place] [address] BLVD : 1955 AGE: 55 SEX: Bertrand [place] [address] LOC: [address] PHONE #: [phone] EXAM DATE: 03/04/2011 STATUS: [address] FAX #: [phone] RAD NO: DC Dt: PAGE 2 Signed Report - NM MYOCRD SPECT R/S [id number] 00:00:00 Patient Name: ANKUR DEGROOT Unit No: [id number] EXAMS: CPT CODE: [id number] NM MYOCRD SPECT R/S [facility] [address] RESTING CARDIOLITE SCAN: 15.7 mCi of technetium [...] for processing and reporting. CC: Self Referred; Marei Puentes MD; Liset Collins MD [facility] NAME: ANKUR DEGROOT MEDICAL IMAGING PHYS: Liset May MD [address] [place] [address] BLVD : 1955 AGE: 54 SEX: Bertrand [place], [place] [address] LOC: [employer] PHONE #: EXAM DATE: 03/24/2010 STATUS: UNK FAX #: RAD NO: DC Dt: PAGE 1 Signed Report Patient Name: HAVEN DEGROOT CHELYVIRGINIA WIGGINS Unit No: [id number] EXAMS: CPT CODE: [id number] NM MYOCRD SPECT R/S [facility] [address] <Continued> Technologist: Natividad Kurtz; Genny Carter Transcribed Date/Time: 03/25/2010 (1415) - Malina Orig Print D/T: S: 09/13/2010 (1467) KAELYN Allen NAME: ANKUR DEGROOT MEDICAL IMAGING PHYS: Liset May MD [address] [place] [address] BLVD : 1955 AGE: 54 SEX: Bertrand [place], [place] [address] LOC: UNK PHONE #: [phone] EXAM DATE: 03/24/2010 STATUS: UNK FAX #: [phone] RAD NO: DC Dt: PAGE 2 Signed Report - XR CHEST 2 [id number] 10:57:00 FAX: Self Referred [place]: St: UNK FAX: Liset Kaplan MD [phone] Patient Name: ANKUR DEGROOT Unit No: [id number] EXAMS: CPT CODE: [id number] XR CHEST 2 V 66302 PA lateral chest 03/24/2010 INDICATION: abdominal pain. The heart is borderline in size. Aorta tortuous and ectatic. Lungs clear. No effusion. Bony thorax unremarkable. IMPRESSION: No active disease. at 1057 Reported and signed by: Jose Antonio Burgos D.O. CC: Self Referred; Liset Collins MD Dictated Date/Time: 03/24/2010 (0936)Technologist: Peggy Bell; [place] Transcribed Date/Time: 03/24/2010 (5629) By: Judd Orig Print D/T: S: 03/24/2010 (6998) KAELYN Allen NAME: ANKUR DEGROOT MEDICAL IMAGING PHYS: Liset May MD [address] [place] [address] BLVD : 1955 AGE: 54 SEX: [place]A [place] [address] LOC: UNK PHONE #: [phone] EXAM DATE: 03/24/2010 STATUS: UNK FAX #: [phone] RAD NO: DC Dt: PAGE 1 Signed Report - CT ABD PELVIS W WO [id number] 13:52:00 Patient Name: ANKUR DEGROOT Unit No: [id number] EXAMS: CPT CODE: [id number] CT ABD PELVIS W WO CONT [address] DIAGNOSIS: Abdominal pain. [...] at 1355 Reported and signed by: Shoshana Kimbroughcyndikorina NAME: DEBBIMEE SILVANEGAR WIGGINS DMITRI ANGY GING PHYS: Liset May MD [address] [place] [address] : 1955 AGE: 54 SEX: Bertrand [place] [address] LOC: UNK PHONE #: [phone] EXAM DATE: 03/23/2010 STATUS: UNK FAX #: [phone] RAD #: D/C DT PAGE 1 Signed Report (CONTINUED) Patient Name: ANKUR DEGROOT Unit No: [id number] EXAMS: CPT CODE: [id number] CT ABD [place]EL[place] W [place] CONT [address]172 <Continued> CC: Self Referred; Liset Collins MD Dictated Date/Time: 03/23/2010 (6502) Technologist: Balta Riley CTDI: DLP: Trnscrpt: 03/23/2010 (7520) [email or web address] FRANCINEAustin Tiffany NAME: ANKUR DEGROOT MEDICAL IMAGING PHYS: Liset May MD [address] [place] [address] : 1955 AGE: 54 SEX: Bertrand [place] [address] LOC: UNK PHONE #: [phone] EXAM DATE: 03/23/2010 STATUS: UNK FAX #: [phone] RAD #: D/C DT PAGE 2 Signed Report Patient Name: ANKUR DEGROOT Unit No: [id number] EXAMS: CPT CODE: [id number] CT ABD PELVIS W WO CONT 93386 <Continued> Orig Print D/T: S: 03/23/2010 (3939) KAELYN Allen NAME: DEBBIANKUR SILVA MEDICAL IMAGING PHYS: Liset May MD [address] [place] [address] : 1955 AGE: 54 SEX: Bertrand [place] [address] LOC: UNK PHONE #: [phone] EXAM DATE: 03/23/2010 STATUS: UNK FAX #: [phone] RAD #: D/C DT PAGE 3 Signed Report - CT PELVIS W W/O [id number] 10:24:00 Patient Name: ANKUR DEGROOT Unit No: [id number] EXAMS: CPT CODE: [id number] CT ABDOMEN W W/O CONTRAST [id number] PELVIS W W/O CONT [address] abdomen and pelvis 07/24/2009. [...] Technologist: Amrita Guerra CTDI: DLP: Trnscrpt: 07/24/2009 (8660) [email or web address] KAELYN Allen NAME: ANKUR DEGROOT [facility] PHYS: Liset May MD [address] [place] [address] : 1955 AGE: 53 SEX: Bertrand [place] [address] LOC: UNK PHONE #: [phone] EXAM D ATE: 07/24/2009 STATUS: [address] FAX #: [phone] RAD #: D/C DT PAGE 1 Signed Report Patient Name: ANKUR DEGROOT Unit No: [id number] EXAMS: CPT CODE : [id number] CT ABDOMEN W W/O CONTRAST [id number] PELVIS W W/O CONT 76332 < Continued> Orig Print D/T: S: 07/24/2009 (1037) KAELYN Allen NAME: ANKUR DEGROOT MEDICAL IMAGING DEPARTMENT PHYS: Liset May MD [address] [place] [address] : 1955 AGE: 53 SEX: Bertrand [place] [address] LOC: UNK PHONE #: [phone] EXAM DATE: 07/24/2009 STATUS: [employer] FAX #: [phone] RAD #: D/C DT PAGE 2 Signed Report - CT ABDOMEN W W/O [id number] 10:24:00 Patient Name: ANKUR DEGROOT ROSALIE Unit No: [id number] EXAMS: CPT CODE: [id number] CT ABDOMEN W W/O CONTRAST [id number] PELVIS W W/O CONT [address] abdomen and pelvis 07/24/2009. [...] Amrita Guerra CTDI: DLP: Trnscrpt: 07/24/2009 (1027) Judd KAELYN Riosroe NAME: ANKUR DEGROOT [facility] PHYS: Liset May MD [address] [place] [address] BLVD : 1955 AGE: 53 SEX: NONA [place] [address] LOC: UNK PHONE #: [phone] EXAM D ATE: 07/24/2009 STATUS: UNK FAX #: [phone] RAD #: D/C DT PAGE 1 Signed Report Patient Name: ANKUR DEGROOT Unit No: [id number] EXAMS: CPT CODE : [id number] CT ABDOMEN W W/O CONTRAST [id number] PELVIS W W/O CONT 09328 < Continued> Orig Print D/T: S: 07/24/2009 (1031) KAELYN Allen NAME: ANKUR DEGROOT MED[facility] IMAG[facility] DEPARTMENT PHYS: Liset May MD [address] [place] [address] : 1955 AGE: 53 SEX: [place]A [place] [address] LOC: UNK PHONE #: [phone] EXAM DATE: 07/24/2009 STATUS: UNK FAX #: [phone] RAD #: D/C DT PAGE 2 Signed Report - XR UGI W/AIR W/SM [id number] 13:50:00 FAX: Ta Claire DO [phone] [place]: St: [facility] FAX: Liset Kaplan MD [phone] Patient Name: ANKUR DEGROOT Unit No: [id number] EXAMS: CPT CODE: [id number] XR UGI W/AIR W/SM INTEST 27664 Double-Contrast Barium Swallow CLINICAL HISTORY: Esophageal pain. [...] parasitic infection and or focal arm. FINDINGS: Admitting Supervisor film of the ab domen demonstrates bowel [...] at 1353 Reported and signed by : Porsha Negro LEONCIO: ANKUR DEGROOT MEDICAL IMAGING PHYS: Darin LONDON - Ta García [address] [place] [address] : [birth year] AGE: 53 SEX: Bertrand [place] [address] 8 LOC: [employer] PHONE #: [phone] EXAM DATE: 07/15/2009 STA TUS: [employer] FAX #: [phone] RAD NO: DC Dt: PAGE 1 Signed Report (CONTINU ED) FAX: Ta Claire DO [phone] [place]: St: [facility] FAX: Liset Kaplan MD [phone] Patient Name: ANKUR DEGROOTE Unit No: [id number] EXAMS: CPT CODE: [id number] XR UGI W/AIR W/SM INTEST 50692 <Continued> CC: Ta Fernandez DO; Liset Collins MD Dictated Date/Time: 07/15/2009 (4250)Technologist: Arielle Johnson (Brock); ... Transcribed Date/Time: 07/15/2009 (2853) By: [email or web address] Orig Print D/T: S: 07/15/2009 (8693) KAELYN Allen NAME: MEE DEGROOTNEGAR [facility]IE [facility] PHYS: Ta Ceja [address] [place] [address] : 1955 AGE: 53 SEX: NONA [place] [address] LOC: UNK PHONE #: [phone] EXAM DATE: 07/15/2009 STATUS: UNK FAX #: [phone] RAD NO: DC Dt: PAGE 2 Signed Report - MRI ABDOMEN W/O [id number] 08:07:00 FAX: Ta Claire DO [phone] [place]: St: [facility] FAX: Liset Kaplan MD [phone] Patient Name: ANKUR DEGROOT Unit No: [id number] EXAMS: CPT CODE: [id number] MRI ABDOMEN W/O CONT 69921 MRI abdomen without contrast (MRCP) HISTORY: Acute [...] DO; Liset Collins MD Dictated Date/Time: 07/15/2009 (806)Technologist: Demond Green RT Transcribed Date/Time: 07/15/2009 (809) By: Charlene Orig P rindinorah D/T: S: 07/15/2009 (9788) KAELYN Allen NAME: ANKUR DEGROOT MEDICAL IMAGING PHYS: HAILEE.Guillermina - Ta García [address] : 1955 AGE: 53 SEX: [place]A [place] [address] LOC: UNK PHONE #: [phone] EXAM DATE: 07/15/2009 STATUS: UNK FAX #: [phone] RAD NO: DC Dt: PAGE 1 Signed Report - CT PELVIS W W/O [id number] 16:18:00 Patient Name: ANKUR DEGROOT Unit No: [id number] EXAMS: CPT CODE: [id number] CT PELVIS W W/O CONT [id number] ABDOMEN W W/O CONTRAST 26139 CT EXAMINATION OF THE ABDOMEN AND PELVIS: [...] again identified. Mild mass effect on [facility] Tiffany NAME: MEE DEGROOTNEGAR ROSALIE Bertrand EDICAL IMAGING PHYS: Liset May MD [address] [facility] : 1955 AGE: 53 SEX: [place]BB[place] [address] LOC: UNK PHONE #: EXAM DATE: 07/12/2009 STATUS: UNK FAX #: [phone] RAD #: D/C DT PAGE 1 Signed Report (CONTINUED) Patient Name: MEE DEGROOTNEGAR ROSALIE Unit No: [id number] EXAMS: CPT CODE: [id number] CT PELVIS W W/O CONT [id number] ABDOMEN W W/O CONTRAST 43855 <Continued> bladder is seen. Again somewhat coarsened [...] CC: Liset Collins MD Dictated Date/Time: 07/12/2009 (4501) Technologist: Jose Antonio Myers CTDI: DLP: Trnscrpt: 07/12/2009 (7564) [place] Allen NAME: ANKUR DEGROOT MEDICAL IMAGING PHYS: Liset May MD [address] [place] [address] BLVD : 1955 AGE: 53 SEX: Bertrand [place], NONA [address] LOC: UNK PHONE #: [phone] EXAM DATE: 07/12/2009 STATUS: [address] FAX #: [phone] RAD #: D/C DT PAGE 2 Signed Report Patient Name: ANKUR DEGROOT ROSALIE Unit No: [id number] EXAMS: CPT CODE: [id number] CT PELVIS W W/O CONT [id number] ABDOMEN W W/O CONTRAST 82087 <Continued> Orig Print D/T: S: 07/12/2009 (4641) KAELYN Allen NAME: DEBBIRICARDOANKUR MEDICAL IMAGING PHYS: Liset May MD [address] [place] [address] BLVD : 1955 AGE: 53 SEX: NONA [place] [address] LOC: UNK PHONE #: [phone] EXAM DATE: 07/12/2009 STATUS: UNK FAX #: [phone] RAD #: D/C DT PAGE 3 Signed Report - CT ABDOMEN W W/O [id number] 16:18:00 Patient Name: ANKUR DEGROOT Unit No: [id number] EXAMS: CPT CODE: [id number] CT PELVIS W W/O CONT [id number] ABDOMEN W W/O CONTRAST 72688 CT EXAMINATION OF THE ABDOMEN AND PELVIS: [...] again identified. Mild mass effect on the [facility] Tiffany NAME: MEE DEGROOTNEGAR ROSALIE EDICAL IMAGING PHYS: Liset May MD [address] [place] [address] : 1955 AGE: 53 SEX: DEBBY [place] [address] LOC: [employer] PHONE #: EXAM DATE: 07/12/2009 STATUS: UNK FAX #: [phone] RAD #: D/C DT PAGE 1 Signed Report (CONTINUED) Patient Name: MEE DEGROOTNEGAR ROSALIE Unit No: [id number] EXAMS: CPT CODE: [id number] CT PELVIS W W/O CONT [id number] ABDOMEN W W/O CONTRAST 74728 <Continued> bladder is seen. Again somewhat coarsened [...] CC: Liset Collins MD Dictated Date/Time: 07/12/2009 (8745) Technologist: Jose Antonio Myers CTDI: DLP: Trnscrpt: 07/12/2009 (2289) Milton/Milton Riosroe NAME: ANKUR DEGROOT MEDICAL IMAGING PHYS: Liset May MD [address] [place] [address] : 1955 AGE: 53 SEX: Bertrand [place] [address] LOC: [address] PHONE #: [phone] EXAM DATE: 07/12/2009 STATUS: [address] FAX #: [phone] RAD #: D/C DT PAGE 2 Signed Report Patient Name: ANKUR DEGROOT Unit No: [id number] EXAMS: CPT CODE: [id number] CT PELVIS W W/O CONT [id number] ABDOMEN W W/O CONTRAST 68861 <Continued> Orig Print D/T: S: 07/12/2009 (2145) KAELYN Allen NAME: ANKUR DEGROOT MEDICAL IMAGING PHYS: Liset May MD [address] [place] [address] BLVD : 1955 AGE: 53 SEX: NONA [place] [facility] LOC: [address] PHONE #: [phone] EXAM DATE: 07/12/2009 STATUS: [address] FAX #: [phone] RAD #: D/C DT PAGE 3 Signed Report - NM BILIARY DUCT W/WO [id number] 11:59:00 Patient Name: ANKUR DEGROOT Unit No: [id number] EXAMS: CPT CODE: [id number] [place] DUCT W/[place] [address] Nuclear biliary sca n. DIAGNOSIS: Right upper [...] processing and reporting. CC: Liset Collins MD [facility] NAME: ANKUR DEGROOT [facility] ICAL IMAGING PHYS: Liset May MD [address] [place] [address] : 1955 AGE: 53 SEX: Bertrand [place] [address] LOC: [employer] PHONE #: EXAM DATE: 07/12/2009 STATUS: [address] FAX #: [phone] RAD NO: DC Dt: PAGE 1 Signed Report Patient Name: ANKUR DEGROOT Unit No: [id number] EXAMS: CPT CODE: [id number] NM BILIARY DUCT W/[place] [address] <Continued> Technologist: Cornelio Khan Transcribed Date/Time: 07/12/2009 (7058) - Cesar Orig Print D/T: S: 07/12/2009 (5782) KAELYN Allen NAME: ANKUR DEGROOT MEDICAL IMAGING PHYS: Liset May MD [address] [place] [address] : 1955 AGE: 53 SEX: [place]A [place] [address] LOC: UNK PHONE #: [phone] EXAM DATE: 07/12/2009 STATUS: UNK FAX #: [phone] RAD NO: DC Dt: PAGE 2 Signed Report - CT CHEST W/O [id number] 14:11:00 Patient Name: ANKUR DEGROOT Unit No: [id number] EXAMS: CPT CODE: [id number] CT CHEST W/O CONTRAST [address] DIAGNOSIS: Pulmonary fibrosis. [...] CC: Liset Collins MD Dictated Date/Time: 07/11/2009 (1287) Technologist: Lo Griffiths CTDI: DLP: Trnscrpt: 07/11/2009 (1416) Harvey/Harvey [facility] Allen NAME: ANKUR DEGROOT MED[facility] IMAG[facility] PHYS: Liset May MD [address] [place] [address] BLVD : 1955 AGE: 53 SEX: [place]A [place] [address] LOC: UNK PHONE #: [phone] EXAM DATE: 07/11/2009 STATUS: UNK FAX #: [phone] RAD #: D/C DT PAGE 1 Signed Report Patient Name: ANKUR DEGROOT Unit No: [id number] EXAMS: CPT CODE: [id number] CT CHEST W/O CONTRAST 91145 < Continued> Orig Print D/T: S: 07/11/2009 (1520) KAELYN Allen NAME: ANKUR [facility] PHYS: Liset May MD [address] [place] [address] BLVD : 1955 AGE: 53 SEX: NONA [place] [facility] LOC: UNK PHONE #: [phone] EXAM DATE: 07/11/2009 STATUS: UNK FAX #: [phone] RAD #: D/C DT PAGE 2 Signed Report - CT ABDOMEN W/O [id number] 08:45:00 Patient Name: ANKUR DEGROOT Unit No: [id number] EXAMS: CPT CODE: [id number] CT ABDOMEN W/O CONTRAST [id number] PELVIS W/O CONTRAST 89607 CT abdomen and pelvis without contrast 07/11/2009. [...] and signed by: Jose Antonio Burgos D.O. [facility] oe NAME: ANKUR DEGROOT [facility]AGIN G PHYS: Liset May MD [address] [place] [address] BL : 1955 AGE: 53 SEX: Bertrand [place], [place] [id number] LOC: UNK PHONE #: [phone] EXAM DATE: 07/11/2009 STATUS: UNK FAX #: [phone] RAD #: D/C DT PAGE 1 Signed Report (CONTINUED) Patient Name: ANKUR DEGROOT Unit No: [id number] EXAMS: CPT CODE: [id number] CT ABDOMEN W/O CONTRAST [id number] PELVIS W/O CONTRAST 22644 <Continued> CC: Liset Collins MD Dictated Date/Time: 07/11/2009 (0845) Technologist: Joyce Lucio CTDI: DLP: Trnscrpt: 07/11/2009 (0854) [email or web address] KAELYN Allen NAME: DEBBIRICARDOANKUR WIGGINS [facility] PHYS: Liset May MD [address] [place] [address] : 1955 AGE: 53 SEX: NONA [place] [id number] LOC: UNK PHONE #: [phone] EXAM DATE: 07/11/2009 STATUS: UNK FAX #: [phone] RAD #: D/C DT PAGE 2 Signed Report Patient Name: ANKUR DEGROOT Unit No: [id number] EXAMS: CPT CODE: [id number] CT ABDOMEN W/O CONTRAST [id number] PELVIS W/O CONTRAST 94352 <Continued> Orig Print D/T: S: 07/11/2009 (0858) KAELYN Allen NAME: ANKUR [facility]OT [facility] PHYS: Liset May MD [address] [place] [address] : 1955 AGE: 53 SEX: NONA [place] [id number] LOC: UNK PHONE #: [phone] EXAM DATE: 07/11/2009 STATUS: UNK FAX #: [phone] RAD #: D/C DT PAGE 3 Signed Report - CT PELVIS W/O [id number] 08:45:00 Patient Name: ANKUR DEGROOT Unit No: [id number] EXAMS: CPT CODE: [id number] CT ABDO MEN W/O CONTRAST [id number] PELVIS W/O CO NTRAST 09339 CT abdomen and pelvis withou t contrast [...] and signed by: Jose Antonio Burgos D.O. [facility] Conr oe NAME: ANKUR DEGROOT MEDICAL IMAGIN G PHYS: Liset May MD [address] [place] [address] BLVD : 1955 AGE: 53 SEX: NONA [place] [id number] LOC: UNK PHONE #: [phone] EXAM DATE: 07/11/2009 STATUS: UNK FAX #: [phone] RAD #: D/C DT PAGE 1 Signed Report (CONTINUED) Patient Name: DEBBIRICARDOANKUR WIGGINS Unit No: [id number] EXAMS: CPT CODE: [id number] CT ABDOMEN W/O CONTRAST [id number] PELVIS W/O CONTRAST [address] <Continued> CC: Liset Collins MD Dictated Date/Time: 07/11/2009 (0845) Technologist: Joyce Lucio CTDI: DLP: Trnscrpt: 07/11/2009 (0854) Judd KAELYN Allen NAME: ANKUR DEGROOTE [facility]AG[facility] PHYS: Liset May MD [address] [place], [place] [address]VD : 1955 AGE: 53 SEX: [place] [address] [address] PHONE #: [phone] EXAM DATE: 07/11/2009 STATUS: [employer] FAX #: [phone] RAD #: D/C DT PAGE 2 Signed Report Patient Name: ANKUR DEGROOT Unit No: [id number] EXAMS: CPT CODE: [id number] CT ABDOMEN W/O CONTRAST [id number] PELVIS W/O CONTRAST 32247 <Continued> Orig Print D/T: S: 07/11/2009 (0858) KAELYN Allen NAME: ANKUR DEGROOT [facility] PHYS: Liset May MD [address] [place] [address] : 1955 AGE: 53 SEX: Bertrand [place] [address] LOC: [address] PHONE #: [phone] EXAM DATE: 07/11/2009 STATUS: [employer] FAX #: [phone] RAD #: D/C DT PAGE 3 Signed Report - NM LIVER [id number] 13:05:00 Patient Name: ANKUR DEGROOT Unit No: [id number] EXAMS: CPT CODE: [id number] NM LIVER SPLEEN [id number] Liver/spleen scan, 11/23/01 CPT: 33627 Technique: Liver/spleen scan w as performed following [...] proce ssing and reporting. KAELYN Allen NAME[facility] PHY S: JOSÉ ANTONIO Carrera[address] : AGE: 46 SEX: Bertrand [place] [address] ACCT NO: [id number] LOC: [address] PHONE #: [phone] EXAM DATE: 002 STATUS: UNK FAX #: [phone] RAD NO: DC D t: PAGE 1 Signed Report Patient Name: ANKUR DEGOROT Unit No: [id number] EXAMS: CPT CODE: [id number] NM LIVER SPLEEN 38074 <Continued > CC: Jose Antonio Carrera MD Technologist: Nydia Sanchez; Ana Heart; Stacy Bustamante Transcribed Date/Time: 11/25/2001 (1743) - B.RADKELSY KAELYN Riosroe NAME: [facility] PHYS: JOSÉ ANTONIO Carrera[address] : 1955 AGE: 46 SEX: M [place] [id number] LOC: UNK PHONE #: [phone] EXAM DATE: 11/23/2001 STATUS: UNK FAX #: [phone] RAD NO: DC Dt: PAGE 2 Signed Report
[2019-12-14] MEDS ORDERED: ATORVASTATIN 20 MG TAB PO SCH (21:00)
--- NOTE | 2019-12-15 02:56 | Discharge Summary ---
ADMISSION DIAGNOSES: 1. Chest pain. 2. Abdominal pain. 3. Hypertension. 4. Hyperlipidemia. 5. Type 2 diabetes. DISCHARGE DIAGNOSES: 1. Chest pain. 2. Abdominal pain. 3. Hypertension. 4. Hyperlipidemia. 5. Type 2 diabetes. 6. Rule out acute coronary syndrome. 7. Chronic systolic congestive heart failure. HISTORY: Hypertension, hyperlipidemia, type 2 diabetes, multiple CO and chronic systolic CHF with an EF of 45%. SURGICAL HISTORY: Right knee surgery, splenectomy, left hand surgery, and five-vessel CABG. FAMILY HISTORY: The patient's mom and grandmother had diabetes. The patient's brother had cancer. SOCIAL HISTORY: The patient has a history of alcoholism and admits to drinking now only one mixed drink every 1 to 2 days. HOSPITAL COURSE: A 64-year-old male admits with complaints of substernal chest pain, described as intermittent and sharp since yesterday. The pain radiated to his left arm. He also complains of abdominal cramping and black stools for weeks. He is tolerating his diet and his hemoglobin was not low. On admission, troponins were negative x4. Echo showed an EF of 45%. BNP was 184. The patient already takes aspirin and Lipitor at home. Cardiac has cleared the patient for discharge and says that he has chronic CAD and angina. As far as the abdominal pain, the CT of the abdomen and pelvis was negative. His lipase was within normal limits. Ultrasound of the abdomen showed no gallstone or signs of cholecystitis. The patient was started on Protonix and Bentyl. He is tolerating diet, so he was advised to follow up with GI on an outpatient basis. He was discharged home with new prescriptions for Bentyl, Zofran p.r.n., and Protonix. The patient understands discharge instructions and agrees to plan. He will follow up with primary care in 1 to 2 weeks, GI as soon as possible, and Cardiology as discussed. Dictated by Danuta Montez NP Hema Sung MD SURES[facility]/MODL /[id number]
== END 2019-12-14 13:44 | disposition home or self-care (01) ==
LOC: ER 11:59 → ERHOLD 12:52 → MED/SURG3 14:21
PROVIDERS: ADMIT Internal Medicine; ATTEND Internal Medicine
DX: I25.119 Atherosclerotic heart disease of native coronary artery with unspecified angina pectoris (principal); R10.9 Unspecified abdominal pain; Z11.59 Encounter for screening for other viral diseases; E11.9 Type 2 diabetes mellitus without complications; I11.0 Hypertensive heart disease with heart failure; I50.22 Chronic systolic (congestive) heart failure; E78.5 Hyperlipidemia, unspecified; I25.2 Old myocardial infarction; Z95.1 Presence of aortocoronary bypass graft
CPT/HCPCS: 36415 ×2; 71045; 71260; 74177; 76705; 80053 ×2; 80061; 82550 ×2; 82553 ×2; 82948; 83690 ×2; 83735; 83880; 84443; 84484 ×2; 85025 ×2; 85610; 85730; 93005; 93306; 99284; G0378 ×2; J2270 ×3; J2405 ×2; J3475; J7030 ×2; Q9967; S0164 ×2; U0002

== ENCOUNTER 2020-06-26 17:36 | Inpatient (IN) | payer MEDICARE ==
[~2020-06-26] VITALS: Ht 190.5 cm; Wt 99.6 kg
[~2020-06-26 17:36] MED LIST changes: +DICYCLOMINE HCL10 MG PO; +ONDANSETRON ODT8 MG PO; +PANTOPRAZOLE SO40 MG PO
[2020-06-26] MEDS ORDERED: ONDANSETRON HCL INJ 2MG/ML 2ML 2 MG/ML VIAL IV STA (17:49)
[2020-06-26] MEDS ORDERED: MORPHINE SULFATE INJ 2 MG/ML SYR IV STA (17:49)
[2020-06-26] MEDS ORDERED: NITROGLYCERIN 2% OINT 1 GM PKT TOP ONE (18:00)
[2020-06-26 18:01] LABS: BASOPHILS # (AUTO) 0.1 (0.0-0.1); BASOPHILS % 1.2 % (0.0-1.0); EOSINOPHILS # (AUTO) 0.1 (0.0-0.4); EOSINOPHILS % 1.5 % (0.0-6.0); HEMATOCRIT 44.3 % (38.2-49.6); HEMOGLOBIN 15.8 g/dL (14.0-18.0); LYMPHOCYTES # (AUTO) 1.8 (1.0-3.2); LYMPHOCYTES % 24.6 % (18.0-39.1); MEAN CORPUSCULAR HEMOGLOBIN 36.7 pg (28-32); MEAN CORPUSCULAR HGB CONC 35.7 g/dL (31-35); MEAN CORPUSCULAR VOLUME 102.8 fL (81-99); MONOCYTES % 13.1 % (4.4-11.3); NEUTROPHILS # (AUTO) 4.4 (2.1-6.9); NEUTROPHILS % 58.5 % (38.7-80.0); PLATELET COUNT 266 x10e3/uL (140-360); RED BLOOD COUNT 4.31 x10e6/uL (4.3-5.7); RED CELL DISTRIBUTION WIDTH 12.9 % (11.7-14.4)
[2020-06-26 18:13] LABS: ALBUMIN 4.3 g/dL (3.5-5.0); ANION GAP 21.7 mmol/L (8-16); CALCIUM 10.6 mg/dL (8.4-10.2); CREATININE, SERUM 1.63 mg/dL (0.72-1.25); POTASSIUM 3.7 mmol/L (3.5-5.1)
[2020-06-26 18:14] LABS: AMYLASE 125 U/L (25-125); LIPASE 192 U/L (8-78)
[2020-06-26 18:15] LABS: INR 0.94; PROTHROMBIN TIME 13.2 seconds (11.9-14.5)
[2020-06-26 18:16] LABS: PARTIAL THROMBOPLASTIN TIME 32.6 seconds (23.8-35.5)
[2020-06-26] MEDS ORDERED: DEXTROSE 50% SYRINGE 50 ML IV PRN (22:30)
[2020-06-26] MEDS: MORPHINE SULFATE INJ 4 MG/ML INJ 1ML IV PRN (22:40)
[2020-06-26] MEDS: INSULIN REGULAR, HUMAN 100 UNIT/1 ML 3ML VIAL SQ SCH (22:55)
[2020-06-26 23:45] VITALS: BP 130/85
[2020-06-27] VITALS (8 sets, daily range): BP systolic 90–116; BP diastolic 60–72
[2020-06-27] MEDS: ONDANSETRON HCL INJ 2MG/ML 2ML 2 MG/ML VIAL IV PRN ×5 (01:53→20:20)
[2020-06-27] MEDS: MORPHINE SULFATE INJ 4 MG/ML INJ 1ML IV PRN ×5 (01:53→20:20)
[2020-06-27 02:01] LABS: CREATINE KINASE MB 1.2 ng/mL (0-5.0)
[2020-06-27 05:05] LABS: BASOPHILS # (AUTO) 0.1 (0.0-0.1); BASOPHILS % 1.2 % (0.0-1.0); EOSINOPHILS # (AUTO) 0.2 (0.0-0.4); EOSINOPHILS % 3.1 % (0.0-6.0); HEMATOCRIT 36.1 % (38.2-49.6); HEMOGLOBIN 12.5 g/dL (14.0-18.0); LYMPHOCYTES % 38.8 % (18.0-39.1); MEAN CORPUSCULAR HEMOGLOBIN 36.3 pg (28-32); MEAN CORPUSCULAR HGB CONC 34.6 g/dL (31-35); MEAN CORPUSCULAR VOLUME 104.9 fL (81-99); MONOCYTES # (AUTO) 1.1 (0.2-0.8); MONOCYTES % 13.7 % (4.4-11.3); NEUTROPHILS # (AUTO) 3.4 (2.1-6.9); NEUTROPHILS % 43.1 % (38.7-80.0); PLATELET COUNT 207 x10e3/uL (140-360); RED BLOOD COUNT 3.44 x10e6/uL (4.3-5.7); RED CELL DISTRIBUTION WIDTH 13.3 % (11.7-14.4)
[2020-06-27 05:30] LABS: ALBUMIN 2.9 g/dL (3.5-5.0); ALBUMIN/GLOBULIN RATIO 0.9 (0.8-2.0); ANION GAP 11.6 mmol/L (8-16); CALCIUM 8.9 mg/dL (8.4-10.2); CREATININE, SERUM 1.56 mg/dL (0.72-1.25); POTASSIUM 3.6 mmol/L (3.5-5.1)
[2020-06-27] MEDS ORDERED: INSULIN REGULAR, HUMAN 100 UNIT/1 ML 3ML VIAL SQ SCH (07:30)
[2020-06-27] MEDS: INSULIN REGULAR, HUMAN 100 UNIT/1 ML 3ML VIAL SQ SCH ×5 (07:30→21:00)
[2020-06-27] MEDS: SODIUM CHLORIDE 0.9% 1000ML 1,000 ML IV SCH ×3 (08:35→22:15)
[2020-06-27] MEDS: CLOPIDOGREL BISULFATE 75 MG TAB PO SCH (09:15)
[2020-06-27] MEDS ORDERED: SODIUM CHLORIDE 0.9% 50ML 50 ML ONE (11:16)
[2020-06-27] MEDS ORDERED: GADOBENATE DIMEGLUMINE 1 ML IV ONE (11:16)
[2020-06-27] MEDS: CARVEDILOL 3.125 MG TAB PO SCH (13:45)
[2020-06-27 15:52] LABS: CREATINE KINASE MB 0.6 ng/mL (0-5.0)
[2020-06-27] MEDS: ATORVASTATIN 20 MG TAB PO SCH (20:20)
[2020-06-28] VITALS (7 sets, daily range): BP systolic 114–154; BP diastolic 63–84
[2020-06-28] MEDS: CARVEDILOL 3.125 MG TAB PO SCH ×2 (01:45→12:46)
[2020-06-28 05:16] LABS: BASOPHILS # (AUTO) 0.1 (0.0-0.1); BASOPHILS % 1.4 % (0.0-1.0); EOSINOPHILS # (AUTO) 0.4 (0.0-0.4); HEMATOCRIT 39.8 % (38.2-49.6); HEMOGLOBIN 13.3 g/dL (14.0-18.0); LYMPHOCYTES # (AUTO) 2.9 (1.0-3.2); LYMPHOCYTES % 39.3 % (18.0-39.1); MEAN CORPUSCULAR HEMOGLOBIN 36.4 pg (28-32); MEAN CORPUSCULAR HGB CONC 33.4 g/dL (31-35); MONOCYTES # (AUTO) 0.9 (0.2-0.8); MONOCYTES % 12.6 % (4.4-11.3); NEUTROPHILS % 40.6 % (38.7-80.0); PLATELET COUNT 220 x10e3/uL (140-360); RED BLOOD COUNT 3.65 x10e6/uL (4.3-5.7); RED CELL DISTRIBUTION WIDTH 13.8 % (11.7-14.4)
[2020-06-28] MEDS: ONDANSETRON HCL INJ 2MG/ML 2ML 2 MG/ML VIAL IV PRN ×2 (05:25→21:59)
[2020-06-28] MEDS: MORPHINE SULFATE INJ 4 MG/ML INJ 1ML IV PRN ×4 (05:25→21:59)
[2020-06-28 05:35] LABS: CALCIUM 8.9 mg/dL (8.4-10.2); CREATININE, SERUM 2.04 mg/dL (0.72-1.25)
[2020-06-28 06:23] LABS: PLATELET ESTIMATE ADEQUATE; PLATELET MORPHOLOGY COMMENT FEW LARGE; RBC MORPHOLOGY COMMENT ABNORMAL
[2020-06-28 06:24] LABS: POLYCHROMASIA FEW
[2020-06-28] MEDS: INSULIN REGULAR, HUMAN 100 UNIT/1 ML 3ML VIAL SQ SCH ×4 (07:30→21:00)
[2020-06-28] MEDS: PANTOPRAZOLE SOD 40 MG TABEC PO SCH (07:30)
[2020-06-28] MEDS: CLOPIDOGREL BISULFATE 75 MG TAB PO SCH (07:59)
[2020-06-28] MEDS: ASPIRIN 81 MG CHEW TAB PO SCH (07:59)
[2020-06-28] MEDS: SODIUM CHLORIDE 0.9% 1000ML 1,000 ML IV SCH (12:01)
[2020-06-28] MEDS: ATORVASTATIN 20 MG TAB PO SCH (21:58)
[2020-06-29] VITALS (8 sets, daily range): BP systolic 111–146; BP diastolic 68–84
[2020-06-29] MEDS ORDERED: DONNATAL/LIDOCAINE/MAALOX 30 ML SUSP PO ONE (00:30)
[2020-06-29] MEDS: SODIUM CHLORIDE 0.9% 1000ML 1,000 ML IV SCH ×2 (00:52→14:46)
[2020-06-29] MEDS ORDERED: BELLADONNA ALK/PHENOBARBITAL 5 ML UDC PO ONE (01:00)
[2020-06-29] MEDS ORDERED: LIDOCAINE VISC 2% SOLN 15 ML UDC PO ONE (01:00)
[2020-06-29] MEDS ORDERED: MAGNESIUM/ALUMINUM/SIMETHICONE 30 ML UDC PO ONE (01:00)
[2020-06-29] MEDS: MORPHINE SULFATE INJ 4 MG/ML INJ 1ML IV PRN ×5 (03:01→21:05)
[2020-06-29] MEDS: CARVEDILOL 3.125 MG TAB PO SCH ×2 (03:02→16:22)
[2020-06-29] MEDS: ONDANSETRON HCL INJ 2MG/ML 2ML 2 MG/ML VIAL IV PRN ×5 (03:02→21:05)
[2020-06-29 06:31] LABS: BASOPHILS # (AUTO) 0.1 (0.0-0.1); BASOPHILS % 1.1 % (0.0-1.0); EOSINOPHILS # (AUTO) 0.4 (0.0-0.4); EOSINOPHILS % 5.9 % (0.0-6.0); HEMATOCRIT 35.2 % (38.2-49.6); HEMOGLOBIN 11.5 g/dL (14.0-18.0); LYMPHOCYTES # (AUTO) 2.1 (1.0-3.2); LYMPHOCYTES % 27.7 % (18.0-39.1); MEAN CORPUSCULAR HEMOGLOBIN 36.1 pg (28-32); MEAN CORPUSCULAR HGB CONC 32.7 g/dL (31-35); MEAN CORPUSCULAR VOLUME 110.3 fL (81-99); MONOCYTES # (AUTO) 1.1 (0.2-0.8); MONOCYTES % 15.1 % (4.4-11.3); NEUTROPHILS # (AUTO) 3.7 (2.1-6.9); NEUTROPHILS % 50.1 % (38.7-80.0); PLATELET COUNT 203 x10e3/uL (140-360); RED BLOOD COUNT 3.19 x10e6/uL (4.3-5.7); RED CELL DISTRIBUTION WIDTH 13.8 % (11.7-14.4)
[2020-06-29 06:51] LABS: ANION GAP 14.1 mmol/L (8-16); CALCIUM 8.7 mg/dL (8.4-10.2); CREATININE, SERUM 1.88 mg/dL (0.72-1.25); POTASSIUM 4.1 mmol/L (3.5-5.1)
[2020-06-29] MEDS: INSULIN REGULAR, HUMAN 100 UNIT/1 ML 3ML VIAL SQ SCH ×4 (08:10→21:06)
[2020-06-29] MEDS: CLOPIDOGREL BISULFATE 75 MG TAB PO SCH (08:14)
[2020-06-29] MEDS: ASPIRIN 81 MG CHEW TAB PO SCH (08:14)
[2020-06-29] MEDS: PANTOPRAZOLE SOD 40 MG TABEC PO SCH (08:14)
[2020-06-29] MEDS: ATORVASTATIN 20 MG TAB PO SCH (21:05)
[2020-06-30] VITALS (9 sets, daily range): BP systolic 99–148; BP diastolic 58–81
[2020-06-30] MEDS: ONDANSETRON HCL INJ 2MG/ML 2ML 2 MG/ML VIAL IV PRN ×5 (01:11→21:56)
[2020-06-30] MEDS: MORPHINE SULFATE INJ 4 MG/ML INJ 1ML IV PRN ×5 (01:11→21:56)
[2020-06-30] MEDS: CARVEDILOL 3.125 MG TAB PO SCH ×2 (01:23→12:30)
[2020-06-30] MEDS: SODIUM CHLORIDE 0.9% 1000ML 1,000 ML IV SCH ×2 (01:25→12:36)
[2020-06-30 07:46] LABS: ALBUMIN 2.9 g/dL (3.5-5.0); ALBUMIN/GLOBULIN RATIO 0.9 (0.8-2.0); ANION GAP 16.4 mmol/L (8-16); CALCIUM 8.3 mg/dL (8.4-10.2); CREATININE, SERUM 1.64 mg/dL (0.72-1.25); POTASSIUM 4.4 mmol/L (3.5-5.1)
[2020-06-30] MEDS: CLOPIDOGREL BISULFATE 75 MG TAB PO SCH (08:35)
[2020-06-30] MEDS: PANTOPRAZOLE SOD 40 MG TABEC PO SCH (08:35)
[2020-06-30] MEDS: ASPIRIN 81 MG CHEW TAB PO SCH (08:35)
[2020-06-30] MEDS: INSULIN REGULAR, HUMAN 100 UNIT/1 ML 3ML VIAL SQ SCH ×4 (08:35→20:59)
[2020-06-30 13:30] LABS: BASOPHILS # (AUTO) 0.1 (0.0-0.1); BASOPHILS % 0.7 % (0.0-1.0); EOSINOPHILS # (AUTO) 0.2 (0.0-0.4); EOSINOPHILS % 2.2 % (0.0-6.0); HEMOGLOBIN 13.3 g/dL (14.0-18.0); LYMPHOCYTES # (AUTO) 1.7 (1.0-3.2); LYMPHOCYTES % 19.3 % (18.0-39.1); MEAN CORPUSCULAR HEMOGLOBIN 36.9 pg (28-32); MEAN CORPUSCULAR HGB CONC 34.1 g/dL (31-35); MEAN CORPUSCULAR VOLUME 108.3 fL (81-99); MONOCYTES # (AUTO) 1.2 (0.2-0.8); MONOCYTES % 14.4 % (4.4-11.3); NEUTROPHILS # (AUTO) 5.4 (2.1-6.9); PLATELET COUNT 193 x10e3/uL (140-360); RED CELL DISTRIBUTION WIDTH 13.5 % (11.7-14.4)
[2020-06-30] MEDS: DICYCLOMINE HCL 10 MG CAP PO PRN (17:04)
[2020-06-30] MEDS: ATORVASTATIN 20 MG TAB PO SCH (20:58)
[2020-07-01 00:51] VITALS: BP 136/81
[2020-07-01] MEDS: MORPHINE SULFATE INJ 4 MG/ML INJ 1ML IV PRN ×4 (01:58→16:23)
[2020-07-01] MEDS: ONDANSETRON HCL INJ 2MG/ML 2ML 2 MG/ML VIAL IV PRN ×4 (01:58→16:22)
[2020-07-01] MEDS: CARVEDILOL 3.125 MG TAB PO SCH ×2 (02:00→14:10)
[2020-07-01 04:58] VITALS: BP 138/71
[2020-07-01] MEDS: SODIUM CHLORIDE 0.9% 1000ML 1,000 ML IV SCH ×2 (05:22→11:20)
[2020-07-01 07:18] VITALS: BP 144/70
[2020-07-01] MEDS: INSULIN REGULAR, HUMAN 100 UNIT/1 ML 3ML VIAL SQ SCH ×3 (08:40→16:09)
[2020-07-01 09:00] VITALS: BP 144/70
[2020-07-01] MEDS: PANTOPRAZOLE SOD 40 MG TABEC PO SCH (09:02)
[2020-07-01] MEDS: DICYCLOMINE HCL 10 MG CAP PO PRN ×2 (11:20→16:20)
[2020-07-01 11:50] VITALS: BP 134/77
[2020-07-01 16:00] VITALS: BP 137/81
[2020-07-01] MEDS ORDERED: ULTRAM50 MG PO (16:04)
== END 2020-07-01 17:24 | disposition home or self-care (01) | DRG 439 ==
LOC: ER 18:01 → ERHOLD 22:24 → MED/SURG 23:28
PROVIDERS: ADMIT Internal Medicine; ATTEND Internal Medicine
DX: K86.3 Pseudocyst of pancreas (principal); I13.0 Hypertensive heart and chronic kidney disease with heart failure and stage 1 through stage 4 chronic kidney disease, or unspecified chronic kidney disease; I50.22 Chronic systolic (congestive) heart failure; K62.5 Hemorrhage of anus and rectum; I25.10 Atherosclerotic heart disease of native coronary artery without angina pectoris; Z95.1 Presence of aortocoronary bypass graft; Z95.5 Presence of coronary angioplasty implant and graft; E78.5 Hyperlipidemia, unspecified; J45.909 Unspecified asthma, uncomplicated; E11.22 Type 2 diabetes mellitus with diabetic chronic kidney disease; N18.30 Chronic kidney disease, stage 3 unspecified; F10.20 Alcohol dependence, uncomplicated; I25.2 Old myocardial infarction; I35.2 Nonrheumatic aortic (valve) stenosis with insufficiency; E11.51 Type 2 diabetes mellitus with diabetic peripheral angiopathy without gangrene; Z79.899 Other long term (current) drug therapy; E78.00 Pure hypercholesterolemia, unspecified; K76.0 Fatty (change of) liver, not elsewhere classified; K70.30 Alcoholic cirrhosis of liver without ascites; K82.8 Other specified diseases of gallbladder
CPT/HCPCS: 36415; 71045; 74183; 76705; 78227; 80048; 80053; 82105; 82150; 82270; 82550; 82553; 82948; 83690; 84484; 85025; 85379; 85610; 85730; 93005; 99284; A9537; J1817; J2270; J2405; J7030; U0002

== ENCOUNTER → 2020-07-18 | Outpatient (CLI) | payer MEDICARE ==
[~2020-07-18] MED LIST changes: +ULTRAM50 MG PO
== END ==
LOC: NM 08:32
PROVIDERS: ATTEND Internal Medicine Gastroenterology
DX: R58 Hemorrhage, not elsewhere classified (principal)
CPT/HCPCS: 74246; 74250; 78290; A9512

== ENCOUNTER 2020-09-11 19:22 | Inpatient (IN) | payer MEDICARE ==
[~2020-09-11] VITALS: Ht 190.5 cm; Wt 99.3 kg
[2020-09-11 19:35] LABS: BASOPHILS # (AUTO) 0.1 (0.0-0.1); BASOPHILS % 1.5 % (0.0-1.0); EOSINOPHILS # (AUTO) 0.3 (0.0-0.4); EOSINOPHILS % 3.4 % (0.0-6.0); HEMATOCRIT 40.1 % (38.2-49.6); HEMOGLOBIN 13.3 g/dL (14.0-18.0); LYMPHOCYTES % 36.4 % (18.0-39.1); MEAN CORPUSCULAR HEMOGLOBIN 33.8 pg (28-32); MEAN CORPUSCULAR HGB CONC 33.2 g/dL (31-35); MEAN CORPUSCULAR VOLUME 101.8 fL (81-99); MONOCYTES % 11.8 % (4.4-11.3); NEUTROPHILS # (AUTO) 3.8 (2.1-6.9); NEUTROPHILS % 46.8 % (38.7-80.0); PLATELET COUNT 223 x10e3/uL (140-360); RED BLOOD COUNT 3.94 x10e6/uL (4.3-5.7); RED CELL DISTRIBUTION WIDTH 14.8 % (11.7-14.4)
[2020-09-11 19:54] LABS: INR 1.06
[2020-09-11] MEDS ORDERED: IOPAMIDOL 370 MG/ML 200 ML INFUS..BTL INJ ONE (19:56)
[2020-09-11] MEDS ORDERED: SODIUM CHLORIDE 0.9% 50ML 50 ML ONE (19:56)
[2020-09-11 20:04] LABS: ALBUMIN 3.3 g/dL (3.5-5.0); ALBUMIN/GLOBULIN RATIO 0.8 (0.8-2.0); ANION GAP 22.5 mmol/L (8-16); CALCIUM 9.2 mg/dL (8.4-10.2); CREATININE, SERUM 1.78 mg/dL (0.72-1.25); POTASSIUM 3.5 mmol/L (3.5-5.1)
[2020-09-11] MEDS ORDERED: FENTANYL CITRATE/PF 100MCG/2 ML INJ IV ONE (23:30)
[2020-09-11] MEDS ORDERED: SODIUM CHLORIDE 0.9% 1000ML 1,000 ML IV SCH (23:45)
[2020-09-12] VITALS (10 sets, daily range): BP systolic 91–144; BP diastolic 63–83
[2020-09-12] MEDS: ONDANSETRON HCL INJ 2MG/ML 2ML 2 MG/ML VIAL IV PRN ×4 (03:17→22:52)
[2020-09-12] MEDS: MORPHINE SULFATE INJ 4 MG/ML INJ 1ML IV PRN ×4 (03:17→22:52)
[2020-09-12] MEDS: SODIUM CHLORIDE 0.9% 1000ML 1,000 ML IV SCH ×4 (03:51→23:45)
[2020-09-12] MEDS ORDERED: HYDROCODONE/APAP 5MG-325MG TAB PO ONE (06:00)
[2020-09-12 06:01] LABS: BASOPHILS # (AUTO) 0.1 (0.0-0.1); BASOPHILS % 1.3 % (0.0-1.0); EOSINOPHILS # (AUTO) 0.4 (0.0-0.4); EOSINOPHILS % 3.7 % (0.0-6.0); HEMATOCRIT 41.2 % (38.2-49.6); HEMOGLOBIN 13.9 g/dL (14.0-18.0); LYMPHOCYTES # (AUTO) 2.6 (1.0-3.2); LYMPHOCYTES % 27.9 % (18.0-39.1); MEAN CORPUSCULAR HEMOGLOBIN 34.3 pg (28-32); MEAN CORPUSCULAR HGB CONC 33.7 g/dL (31-35); MEAN CORPUSCULAR VOLUME 101.7 fL (81-99); MONOCYTES # (AUTO) 1.4 (0.2-0.8); MONOCYTES % 14.4 % (4.4-11.3); NEUTROPHILS % 52.5 % (38.7-80.0); PLATELET COUNT 221 x10e3/uL (140-360); RED BLOOD COUNT 4.05 x10e6/uL (4.3-5.7); RED CELL DISTRIBUTION WIDTH 15.2 % (11.7-14.4)
[2020-09-12 06:28] LABS: ALBUMIN 3.4 g/dL (3.5-5.0); ALBUMIN/GLOBULIN RATIO 0.8 (0.8-2.0); CALCIUM 9.2 mg/dL (8.4-10.2); CREATININE, SERUM 1.84 mg/dL (0.72-1.25)
[2020-09-12] MEDS: CLOPIDOGREL BISULFATE 75 MG TAB PO SCH (09:30)
[2020-09-12] MEDS: CARVEDILOL 3.125 MG TAB PO SCH ×2 (09:30→16:53)
[2020-09-12] MEDS: ASPIRIN 81 MG ENTERIC COATED PO SCH (09:37)
[2020-09-12] MEDS ORDERED: MIDAZOLAM HCL 2 MG/2 ML VIAL ONE ×2 (11:31→12:30)
[2020-09-12] MEDS ORDERED: FENTANYL CITRATE/PF 100MCG/2 ML INJ ONE (11:31)
[2020-09-12] MEDS ORDERED: HEPARIN SOD/SOD CHLORIDE 2,000 ML ONE (11:31)
[2020-09-12] MEDS ORDERED: LIDOCAINE HCL 2% LOCAL 20 ML VIAL ONE (11:31)
[2020-09-12] MEDS ORDERED: IOPAMIDOL 370 MG/ML 200 ML INFUS..BTL INJ ONE (11:31)
[2020-09-12] MEDS ORDERED: SODIUM CHLORIDE 0.9% 1000ML 1,000 ML ONE (11:32)
[2020-09-12] MEDS ORDERED: SODIUM CHLORIDE 0.9% 50ML 50 ML ONE (12:12)
[2020-09-12] MEDS ORDERED: BIVALRIUDIN 250 MG/VIAL VIAL IV ONE (12:12)
[2020-09-12] MEDS ORDERED: CLOPIDOGREL BISULFATE 75 MG TAB ONE (12:57)
[2020-09-12] MEDS ORDERED: ASPIRIN 325 MG TAB ONE (12:58)
[2020-09-12] MEDS: ATORVASTATIN 40 MG TAB PO SCH (20:13)
[2020-09-12 23:17] LABS: CLARITY,URINE CLEAR (CLEAR); COLOR,URINE YELLOW (YELLOW); LEUKOCYTE ESTERASE ,URINE NEGATIVE (NEGATIVE); NITRITE,URINE NEGATIVE (NEGATIVE); PROTEIN,URINE DIPSTICK NEGATIVE (NEGATIVE)
[2020-09-12 23:18] LABS: KETONES,URINE NEGATIVE (NEGATIVE); URINE UROBILINOGEN 1 mg/dL (0.2 - 1)
[2020-09-12 23:23] LABS: BACTERIA,URINE FEW /HPF; EPITHELIAL CELLS,URINE FEW /LPF; RBC,URINE 0-5 /HPF (0-5)
[2020-09-12 23:25] LABS: CREATININE,URINE RANDOM 142.24 mg/dL (63-166); TOTAL PROTEIN, URINE 14.6 mg/dL (1-14)
[2020-09-13] VITALS (8 sets, daily range): BP systolic 91–142; BP diastolic 65–92
[2020-09-13] MEDS: MORPHINE SULFATE INJ 4 MG/ML INJ 1ML IV PRN ×5 (02:58→20:38)
[2020-09-13] MEDS: ONDANSETRON HCL INJ 2MG/ML 2ML 2 MG/ML VIAL IV PRN ×3 (02:58→20:38)
[2020-09-13] MEDS: SODIUM CHLORIDE 0.9% 1000ML 1,000 ML IV SCH ×2 (04:11→16:37)
[2020-09-13 05:29] LABS: HEMATOCRIT 36.7 % (38.2-49.6); HEMOGLOBIN 12.1 g/dL (14.0-18.0); MEAN CORPUSCULAR HEMOGLOBIN 34.1 pg (28-32); MEAN CORPUSCULAR VOLUME 103.4 fL (81-99); PLATELET COUNT 207 x10e3/uL (140-360); RED BLOOD COUNT 3.55 x10e6/uL (4.3-5.7); RED CELL DISTRIBUTION WIDTH 15.1 % (11.7-14.4)
[2020-09-13 06:02] LABS: ALBUMIN 3.1 g/dL (3.5-5.0); ALBUMIN/GLOBULIN RATIO 0.9 (0.8-2.0); ANION GAP 15.2 mmol/L (8-16); CALCIUM 8.2 mg/dL (8.4-10.2); CREATININE, SERUM 1.98 mg/dL (0.72-1.25); POTASSIUM 4.2 mmol/L (3.5-5.1)
[2020-09-13] MEDS ORDERED: ACETYLCYSTEINE 20% INHAL SOLN 30 ML VIAL PO SCH (09:00)
[2020-09-13] MEDS ORDERED: ACETYLCYSTEINE 200 MG/ML 4ML VIAL PO SCH (09:00)
[2020-09-13] MEDS: ASPIRIN 81 MG ENTERIC COATED PO SCH (09:32)
[2020-09-13] MEDS: CARVEDILOL 3.125 MG TAB PO SCH ×2 (09:32→16:37)
[2020-09-13] MEDS: CLOPIDOGREL BISULFATE 75 MG TAB PO SCH (09:33)
[2020-09-13] MEDS: ATORVASTATIN 40 MG TAB PO SCH (20:38)
[2020-09-14 00:05] VITALS: BP 142/75
[2020-09-14] MEDS: MORPHINE SULFATE INJ 4 MG/ML INJ 1ML IV PRN ×3 (00:50→09:35)
[2020-09-14] MEDS: ONDANSETRON HCL INJ 2MG/ML 2ML 2 MG/ML VIAL IV PRN ×3 (00:50→09:34)
[2020-09-14] MEDS: SODIUM CHLORIDE 0.9% 1000ML 1,000 ML IV SCH ×2 (01:48→09:34)
[2020-09-14] MEDS ORDERED: DONNATAL/LIDOCAINE/MAALOX 30 ML SUSP PO ONE ×2 (02:15→08:00)
[2020-09-14 05:36] VITALS: BP 130/87
[2020-09-14 06:05] LABS: HEMATOCRIT 34.5 % (38.2-49.6); HEMOGLOBIN 11.2 g/dL (14.0-18.0); MEAN CORPUSCULAR HEMOGLOBIN 33.8 pg (28-32); MEAN CORPUSCULAR HGB CONC 32.5 g/dL (31-35); MEAN CORPUSCULAR VOLUME 104.2 fL (81-99); PLATELET COUNT 203 x10e3/uL (140-360); RED BLOOD COUNT 3.31 x10e6/uL (4.3-5.7); RED CELL DISTRIBUTION WIDTH 14.9 % (11.7-14.4)
[2020-09-14 06:29] LABS: ALBUMIN 2.8 g/dL (3.5-5.0); ALBUMIN/GLOBULIN RATIO 0.8 (0.8-2.0); ANION GAP 12.1 mmol/L (8-16); CALCIUM 7.7 mg/dL (8.4-10.2); CREATININE, SERUM 1.79 mg/dL (0.72-1.25); POTASSIUM 4.1 mmol/L (3.5-5.1)
[2020-09-14 08:04] VITALS: BP 130/87
[2020-09-14 08:12] VITALS: BP 131/66
[2020-09-14] MEDS: ASPIRIN 81 MG ENTERIC COATED PO SCH (08:58)
[2020-09-14] MEDS: CLOPIDOGREL BISULFATE 75 MG TAB PO SCH (08:58)
[2020-09-14] MEDS: CARVEDILOL 3.125 MG TAB PO SCH (08:59)
[2020-09-14 11:26] VITALS: BP 130/75
== END 2020-09-14 13:59 | disposition home or self-care (01) | DRG 246 ==
LOC: ER 19:24 → ERHOLD 23:37 → MED/SURG 09-12 01:58 → OBSVTOIN 09-12 14:37
PROVIDERS: ADMIT Internal Medicine; ATTEND Internal Medicine
PROC: 4A023N7 Measurement of Cardiac Sampling and Pressure, Left Heart, Percutaneous Approach (ICD-10-PCS; principal; 2020-09-12)
PROC: B2111ZZ Fluoroscopy of Multiple Coronary Arteries using Low Osmolar Contrast (ICD-10-PCS; 2020-09-12)
PROC: B2151ZZ Fluoroscopy of Left Heart using Low Osmolar Contrast (ICD-10-PCS; 2020-09-12)
PROC: 027135Z Dilation of Coronary Artery, Two Arteries with Two Drug-eluting Intraluminal Devices, Percutaneous Approach (ICD-10-PCS; 2020-09-12)
PROC: B2131ZZ Fluoroscopy of Multiple Coronary Artery Bypass Grafts using Low Osmolar Contrast (ICD-10-PCS; 2020-09-12)
DX: I25.110 Atherosclerotic heart disease of native coronary artery with unstable angina pectoris (principal); K85.90 Acute pancreatitis without necrosis or infection, unspecified; I13.0 Hypertensive heart and chronic kidney disease with heart failure and stage 1 through stage 4 chronic kidney disease, or unspecified chronic kidney disease; N17.9 Acute kidney failure, unspecified; I50.9 Heart failure, unspecified; E78.5 Hyperlipidemia, unspecified; N18.32 Chronic kidney disease, stage 3b; I25.2 Old myocardial infarction; I35.0 Nonrheumatic aortic (valve) stenosis; I73.9 Peripheral vascular disease, unspecified; I25.82 Chronic total occlusion of coronary artery; Z95.1 Presence of aortocoronary bypass graft; Z95.5 Presence of coronary angioplasty implant and graft; Z88.1 Allergy status to other antibiotic agents; Z82.3 Family history of stroke; Z84.89 Family history of other specified conditions; Z90.81 Acquired absence of spleen
CPT/HCPCS: 36415; 71260; 76705; 76770; 80053; 80061; 81001; 82150; 82570; 82948; 83036; 83690; 84156; 84484; 85007; 85025; 85027; 85610; 85730; 92928; 93041; 93455; 93971; 99152; 99153; 99284; C1725; C1760; C1766; C1876; C1887; C9600; G0378; J0583; J2001; J2250; J2270; J2405; J3010; J7030; Q9967; U0002

== ENCOUNTER 2021-03-02 20:33 | Inpatient (IN) | payer MEDICARE ==
[~2021-03-02] VITALS: Ht 188 cm; Wt 99.3 kg
[2021-03-02] MEDS ORDERED: ASPIRIN 81 MG CHEW TAB PO STA (20:38)
[2021-03-02] MEDS ORDERED: NITROGLYCERIN 2% OINT 1 GM PKT TOP STA (20:38)
[2021-03-02 20:49] LABS: BASOPHILS # (AUTO) 0.1 (0.0-0.1); EOSINOPHILS # (AUTO) 0.1 (0.0-0.4); EOSINOPHILS % 1.3 % (0.0-6.0); HEMOGLOBIN 14.9 g/dL (14.0-18.0); LYMPHOCYTES # (AUTO) 1.5 (1.0-3.2); LYMPHOCYTES % 17.7 % (18.0-39.1); MEAN CORPUSCULAR HEMOGLOBIN 35.8 pg (28-32); MEAN CORPUSCULAR HGB CONC 33.9 g/dL (31-35); MEAN CORPUSCULAR VOLUME 105.8 fL (81-99); MONOCYTES # (AUTO) 0.9 (0.2-0.8); MONOCYTES % 10.2 % (4.4-11.3); NEUTROPHILS # (AUTO) 5.9 (2.1-6.9); NEUTROPHILS % 69.6 % (38.7-80.0); PLATELET COUNT 157 x10e3/uL (140-360); RED BLOOD COUNT 4.16 x10e6/uL (4.3-5.7); RED CELL DISTRIBUTION WIDTH 15.5 % (11.7-14.4)
[2021-03-02 21:09] LABS: ALBUMIN 3.8 g/dL (3.5-5.0); ALBUMIN/GLOBULIN RATIO 0.9 (0.8-2.0); ANION GAP 23.2 mmol/L (8-16); CALCIUM 9.9 mg/dL (8.4-10.2); CREATININE, SERUM 1.47 mg/dL (0.72-1.25); POTASSIUM 4.2 mmol/L (3.5-5.1)
[2021-03-02 21:45] LABS: CREATINE KINASE MB 2.9 ng/mL (0-5.0)
[2021-03-02] MEDS ORDERED: Morphine 4mg Syringe 4 MG/ML INJ IV ONE (22:00)
[2021-03-02] MEDS ORDERED: Morphine 2mg Syringe 2 MG/ML SYR ONE (22:01)
[2021-03-02] MEDS ORDERED: ASPIRIN 81 MG CHEW TAB PO ONE (22:15)
[2021-03-02] MEDS ORDERED: NITROGLYCERIN 0.4 MG SUBL SL PRN (22:15)
[2021-03-02] MEDS ORDERED: ONDANSETRON HCL INJ 2MG/ML 2ML 2 MG/ML VIAL IV PRN (22:15)
[2021-03-02] MEDS ORDERED: Morphine 4mg Syringe 4 MG/ML INJ IV PRN (22:15)
[2021-03-02] MEDS ORDERED: SODIUM CHLORIDE 0.9% 1000ML 1,000 ML IV STA (23:38)
[2021-03-02] MEDS ORDERED: FENTANYL CITRATE/PF 100MCG/2 ML INJ IV ONE (23:45)
[2021-03-02] MEDS ORDERED: SODIUM CHLORIDE 0.9% 1000ML 1,000 ML ONE (23:56)
[2021-03-03] VITALS (7 sets, daily range): BP systolic 135–168; BP diastolic 87–97
[2021-03-03 00:02] LABS: CLARITY,URINE SL CLOUDY (CLEAR); COLOR,URINE ORANGE (YELLOW); KETONES,URINE 1+ (NEGATIVE); LEUKOCYTE ESTERASE ,URINE NEGATIVE (NEGATIVE); NITRITE,URINE NEGATIVE (NEGATIVE); PROTEIN,URINE DIPSTICK TRACE (NEGATIVE); URINE UROBILINOGEN 0.2 mg/dL (0.2 - 1)
[2021-03-03 00:14] LABS: BACTERIA,URINE RARE /HPF; EPITHELIAL CELLS,URINE FEW /LPF; TRANSITIONAL EPI CELLS,URINE FEW; WBC,URINE (MAN) 0-5 /HPF (0-5)
[2021-03-03] MEDS ORDERED: SODIUM CHLORIDE 0.9% 1000ML 1,000 ML IV SCH (00:30)
[2021-03-03] MEDS ORDERED: Morphine 4mg Syringe 4 MG/ML INJ IV PRN (00:45)
[2021-03-03] MEDS ORDERED: ONDANSETRON HCL INJ 2MG/ML 2ML 2 MG/ML VIAL IV PRN ×2 (00:45→01:00)
[2021-03-03] MEDS ORDERED: SIMETHICONE 80 MG CHEW PO PRN (01:00)
[2021-03-03] MEDS ORDERED: POTASSIUM CHLORIDE 20 MEQ TAB CR PO PRN (01:00)
[2021-03-03] MEDS ORDERED: ACETAMINOPHEN 325 MG TAB PO PRN (01:00)
[2021-03-03] MEDS ORDERED: BENZONATATE 100 MG CAP PO PRN (01:00)
[2021-03-03] MEDS ORDERED: ALBUTEROL/IPRATROPIUM 3 ML NEB NEB PRN (01:00)
[2021-03-03] MEDS ORDERED: DIPHENHYDRAMINE HCL 25 MG CAP PO PRN (01:00)
[2021-03-03] MEDS ORDERED: DEXTROSE 50% SYRINGE 50 ML IV PRN ×2 (01:00→12:15)
[2021-03-03] MEDS ORDERED: Morphine 2mg Syringe 2 MG/ML SYR IV PRN (01:00)
[2021-03-03] MEDS ORDERED: HYDRALAZINE HCL 20 MG/ML VIAL IV PRN (01:00)
[2021-03-03] MEDS ORDERED: HYDROCODONE/APAP 5MG-325MG TAB PO PRN (01:00)
[2021-03-03] MEDS ORDERED: DOCUSATE SODIUM 100 MG CAP PO PRN (01:00)
[2021-03-03] MEDS ORDERED: MELATONIN 5 MG TABLET PO PRN (01:00)
[2021-03-03] MEDS: Morphine 4mg Syringe 4 MG/ML INJ IV PRN ×3 (05:01→12:15)
[2021-03-03] MEDS ORDERED: DIATRIZOATE MEGL/DIATRIZOA SOD 30 ML BTL PO ONE (05:02)
[2021-03-03 06:27] LABS: ALBUMIN 3.4 g/dL (3.5-5.0); ALBUMIN/GLOBULIN RATIO 0.9 (0.8-2.0); ANION GAP 20.4 mmol/L (8-16); CALCIUM 9.1 mg/dL (8.4-10.2); CREATININE, SERUM 1.37 mg/dL (0.72-1.25); MAGNESIUM 1.2 MG/DL (1.3-2.1); POTASSIUM 4.4 mmol/L (3.5-5.1)
[2021-03-03 06:49] LABS: PHOSPHORUS 2.8 MG/DL (2.3-4.7)
[2021-03-03 07:13] LABS: THYROID STIMULATING HORMONE 1.62 uIU/mL (0.350-4.940)
[2021-03-03] MEDS: PANTOPRAZOLE SOD 40 MG TABEC PO SCH (07:30)
[2021-03-03 07:57] LABS: CREATINE KINASE MB 2.5 ng/mL (0-5.0)
[2021-03-03 08:17] LABS: CHOL/HDL RATIO 2.4 (3.9-4.7)
[2021-03-03] MEDS: ASPIRIN 81 MG ENTERIC COATED PO SCH (08:20)
[2021-03-03 08:40] LABS: BASOPHILS # (AUTO) 0.1 (0.0-0.1); BASOPHILS % 0.8 % (0.0-1.0); EOSINOPHILS % 0.1 % (0.0-6.0); HEMATOCRIT 40.6 % (38.2-49.6); HEMOGLOBIN 13.5 g/dL (14.0-18.0); LYMPHOCYTES # (AUTO) 0.7 (1.0-3.2); MEAN CORPUSCULAR HEMOGLOBIN 35.8 pg (28-32); MEAN CORPUSCULAR HGB CONC 33.3 g/dL (31-35); MEAN CORPUSCULAR VOLUME 107.7 fL (81-99); MONOCYTES # (AUTO) 1.5 (0.2-0.8); MONOCYTES % 14.2 % (4.4-11.3); NEUTROPHILS # (AUTO) 8.1 (2.1-6.9); NEUTROPHILS % 77.5 % (38.7-80.0); PLATELET COUNT 146 x10e3/uL (140-360); RED BLOOD COUNT 3.77 x10e6/uL (4.3-5.7); RED CELL DISTRIBUTION WIDTH 15.9 % (11.7-14.4)
[2021-03-03] MEDS ORDERED: LORAZEPAM 0.5 MG TAB PO PRN (10:45)
[2021-03-03] MEDS: THIAMINE HCL 100 MG TAB PO SCH (11:30)
[2021-03-03] MEDS: MULTIVITAMINS/MINERALS TAB PO SCH (11:30)
[2021-03-03] MEDS ORDERED: MAGNESIUM SULFATE 2GM/50ML 50 ML IV ONE (12:30)
[2021-03-03 14:37] LABS: CREATINE KINASE MB 2.6 ng/mL (0-5.0)
[2021-03-03] MEDS: KETOROLAC TROMETHAMINE 30 MG/ML VIAL IV SCH ×2 (15:00→21:28)
[2021-03-03] MEDS: LACTATED RINGER'S 1,000 ML INJ SCH ×3 (15:00→21:27)
[2021-03-03 16:54] LABS: PROTHROMBIN TIME 12.4 seconds (11.9-14.5)
[2021-03-03] MEDS: ENOXAPARIN SOD INJ 40 MG/0.4 ML SYR SC SCH (17:00)
[2021-03-03 17:03] LABS: INR 1.12
[2021-03-03 17:27] LABS: PARTIAL THROMBOPLASTIN TIME 28.1 seconds (23.8-35.5)
[2021-03-03] MEDS ORDERED: INSULIN REGULAR, HUMAN 100 UNIT/1 ML SQ SCH (18:00)
[2021-03-04] VITALS (7 sets, daily range): BP systolic 139–167; BP diastolic 78–89
[2021-03-04] MEDS: Morphine 4mg Syringe 4 MG/ML INJ IV PRN ×5 (01:43→23:30)
[2021-03-04] MEDS: LACTATED RINGER'S 1,000 ML INJ SCH ×5 (02:00→22:30)
[2021-03-04 05:07] LABS: BASOPHILS # (AUTO) 0.1 (0.0-0.1); BASOPHILS % 0.7 % (0.0-1.0); EOSINOPHILS # (AUTO) 0.2 (0.0-0.4); EOSINOPHILS % 1.6 % (0.0-6.0); HEMATOCRIT 38.7 % (38.2-49.6); HEMOGLOBIN 12.8 g/dL (14.0-18.0); LYMPHOCYTES # (AUTO) 1.4 (1.0-3.2); LYMPHOCYTES % 9.9 % (18.0-39.1); MEAN CORPUSCULAR HEMOGLOBIN 35.3 pg (28-32); MEAN CORPUSCULAR HGB CONC 33.1 g/dL (31-35); MEAN CORPUSCULAR VOLUME 106.6 fL (81-99); MONOCYTES # (AUTO) 1.6 (0.2-0.8); MONOCYTES % 11.4 % (4.4-11.3); NEUTROPHILS # (AUTO) 10.9 (2.1-6.9); NEUTROPHILS % 75.8 % (38.7-80.0); PLATELET COUNT 127 x10e3/uL (140-360); RED BLOOD COUNT 3.63 x10e6/uL (4.3-5.7); RED CELL DISTRIBUTION WIDTH 15.8 % (11.7-14.4)
[2021-03-04 05:47] LABS: ALBUMIN 2.9 g/dL (3.5-5.0); ALBUMIN/GLOBULIN RATIO 0.8 (0.8-2.0); ANION GAP 17.5 mmol/L (8-16); CALCIUM 8.6 mg/dL (8.4-10.2); CREATININE, SERUM 1.3 mg/dL (0.72-1.25); POTASSIUM 4.5 mmol/L (3.5-5.1)
[2021-03-04] MEDS: PANTOPRAZOLE SOD 40 MG TABEC PO SCH (10:32)
[2021-03-04] MEDS: FOLIC ACID 1 MG TAB PO SCH (10:32)
[2021-03-04] MEDS: THIAMINE HCL 100 MG TAB PO SCH (10:32)
[2021-03-04] MEDS: MULTIVITAMINS/MINERALS TAB PO SCH (10:32)
[2021-03-04] MEDS: ASPIRIN 81 MG ENTERIC COATED PO SCH (10:32)
[2021-03-04] MEDS ORDERED: SODIUM CHLORIDE 0.9% 50ML 50 ML ONE (12:04)
[2021-03-04] MEDS ORDERED: GADOBENATE DIMEGLUMINE 1 ML IV ONE (12:04)
[2021-03-04] MEDS: ENOXAPARIN SOD INJ 40 MG/0.4 ML SYR SC SCH (18:17)
[2021-03-05] VITALS (8 sets, daily range): BP systolic 141–166; BP diastolic 83–98
[2021-03-05] MEDS: Morphine 4mg Syringe 4 MG/ML INJ IV PRN ×5 (04:00→22:11)
[2021-03-05] MEDS: LACTATED RINGER'S 1,000 ML INJ SCH ×5 (05:03→23:30)
[2021-03-05 05:31] LABS: BASOPHILS # (AUTO) 0.1 (0.0-0.1); BASOPHILS % 0.9 % (0.0-1.0); EOSINOPHILS # (AUTO) 0.5 (0.0-0.4); EOSINOPHILS % 5.1 % (0.0-6.0); HEMATOCRIT 35.7 % (38.2-49.6); HEMOGLOBIN 12.2 g/dL (14.0-18.0); LYMPHOCYTES # (AUTO) 1.6 (1.0-3.2); LYMPHOCYTES % 15.4 % (18.0-39.1); MEAN CORPUSCULAR HEMOGLOBIN 36.2 pg (28-32); MEAN CORPUSCULAR HGB CONC 34.2 g/dL (31-35); MEAN CORPUSCULAR VOLUME 105.9 fL (81-99); MONOCYTES # (AUTO) 1.4 (0.2-0.8); MONOCYTES % 13.5 % (4.4-11.3); NEUTROPHILS # (AUTO) 6.5 (2.1-6.9); NEUTROPHILS % 64.7 % (38.7-80.0); PLATELET COUNT 139 x10e3/uL (140-360); RED BLOOD COUNT 3.37 x10e6/uL (4.3-5.7); RED CELL DISTRIBUTION WIDTH 15.6 % (11.7-14.4)
[2021-03-05 05:52] LABS: ALBUMIN 2.5 g/dL (3.5-5.0); ALBUMIN/GLOBULIN RATIO 0.7 (0.8-2.0); ANION GAP 18.4 mmol/L (8-16); CALCIUM 8.5 mg/dL (8.4-10.2); CREATININE, SERUM 1.16 mg/dL (0.72-1.25); POTASSIUM 4.4 mmol/L (3.5-5.1)
[2021-03-05 05:57] LABS: MAGNESIUM 1.1 MG/DL (1.3-2.1)
[2021-03-05] MEDS ORDERED: MAGNESIUM SULF 1GRAM/DEXTROSE 300 ML IV ONE (06:15)
[2021-03-05] MEDS ORDERED: MAGNESIUM SULFATE 2GM/50ML 50 ML IV ONE (06:15)
[2021-03-05 06:21] LABS: PHOSPHORUS 1.6 MG/DL (2.3-4.7)
[2021-03-05] MEDS: PANTOPRAZOLE SOD 40 MG TABEC PO SCH (08:36)
[2021-03-05] MEDS: MULTIVITAMINS/MINERALS TAB PO SCH (09:02)
[2021-03-05] MEDS: FOLIC ACID 1 MG TAB PO SCH (09:02)
[2021-03-05] MEDS: ASPIRIN 81 MG ENTERIC COATED PO SCH (09:02)
[2021-03-05] MEDS: THIAMINE HCL 100 MG TAB PO SCH (09:02)
[2021-03-05 10:20] LABS: EOSINOPHILS % (MANUAL) 1 % (0-7); LYMPHOCYTES % (MANUAL) 18 % (19-48); METAMYELOCYTES % (MANUAL) 1 % (0-0); MONOCYTES % (MANUAL) 3 % (3.4-9.0); NEUTROPHILS % (MANUAL) 73 % (40-74); SMUDGE CELLS FEW
[2021-03-05] MEDS ORDERED: POTASSIUM PHOSPHATE 15 MM in SODIUM CHLORIDE 0.9% 250ML 250 ML IV ONE (12:00)
[2021-03-05] MEDS: ENOXAPARIN SOD INJ 40 MG/0.4 ML SYR SC SCH (17:34)
[2021-03-06] VITALS (8 sets, daily range): BP systolic 143–161; BP diastolic 83–99
[2021-03-06] MEDS: Morphine 4mg Syringe 4 MG/ML INJ IV PRN ×5 (02:46→20:45)
[2021-03-06] MEDS: LACTATED RINGER'S 1,000 ML INJ SCH ×4 (03:35→20:45)
[2021-03-06] MEDS: MULTIVITAMINS/MINERALS TAB PO SCH (08:25)
[2021-03-06] MEDS: THIAMINE HCL 100 MG TAB PO SCH (08:25)
[2021-03-06] MEDS: ASPIRIN 81 MG ENTERIC COATED PO SCH (08:25)
[2021-03-06] MEDS: FOLIC ACID 1 MG TAB PO SCH (08:25)
[2021-03-06] MEDS: PANTOPRAZOLE SOD 40 MG TABEC PO SCH (08:25)
[2021-03-06 13:54] LABS: AMYLASE 78 U/L (25-125); LIPASE 175 U/L (8-78)
[2021-03-06] MEDS: ENOXAPARIN SOD INJ 40 MG/0.4 ML SYR SC SCH (17:47)
[2021-03-07] VITALS (8 sets, daily range): BP systolic 143–157; BP diastolic 81–94
[2021-03-07] MEDS: Morphine 4mg Syringe 4 MG/ML INJ IV PRN ×8 (00:44→22:40)
[2021-03-07] MEDS: LACTATED RINGER'S 1,000 ML INJ SCH ×2 (05:38→14:33)
[2021-03-07 06:42] LABS: ALBUMIN 2.5 g/dL (3.5-5.0); ALBUMIN/GLOBULIN RATIO 0.7 (0.8-2.0); ANION GAP 17.4 mmol/L (8-16); CALCIUM 8.6 mg/dL (8.4-10.2); CREATININE, SERUM 1.15 mg/dL (0.72-1.25); POTASSIUM 4.4 mmol/L (3.5-5.1)
[2021-03-07 07:28] LABS: PHOSPHORUS 2.4 MG/DL (2.3-4.7)
[2021-03-07] MEDS: FOLIC ACID 1 MG TAB PO SCH (08:22)
[2021-03-07] MEDS: ASPIRIN 81 MG ENTERIC COATED PO SCH (08:22)
[2021-03-07] MEDS: MULTIVITAMINS/MINERALS TAB PO SCH (08:22)
[2021-03-07] MEDS: THIAMINE HCL 100 MG TAB PO SCH (08:22)
[2021-03-07] MEDS: PANTOPRAZOLE SOD 40 MG TABEC PO SCH (08:22)
[2021-03-07] MEDS ORDERED: MAGNESIUM SULFATE 2GM/50ML 50 ML IV ONE (10:30)
[2021-03-07] MEDS: ENOXAPARIN SOD INJ 40 MG/0.4 ML SYR SC SCH (18:34)
[2021-03-08] VITALS (8 sets, daily range): BP systolic 131–144; BP diastolic 80–90
[2021-03-08] MEDS: LACTATED RINGER'S 1,000 ML INJ SCH (02:27)
[2021-03-08] MEDS: Morphine 4mg Syringe 4 MG/ML INJ IV PRN ×3 (03:43→11:19)
[2021-03-08] MEDS: PANTOPRAZOLE SOD 40 MG TABEC PO SCH ×2 (07:38→08:19)
[2021-03-08 07:57] LABS: AMYLASE 76 U/L (25-125); LIPASE 166 U/L (8-78)
[2021-03-08] MEDS: THIAMINE HCL 100 MG TAB PO SCH (08:19)
[2021-03-08] MEDS: FOLIC ACID 1 MG TAB PO SCH (08:19)
[2021-03-08] MEDS: ASPIRIN 81 MG ENTERIC COATED PO SCH (08:19)
[2021-03-08] MEDS: MULTIVITAMINS/MINERALS TAB PO SCH (08:19)
[2021-03-08 08:33] LABS: PHOSPHORUS 2.8 MG/DL (2.3-4.7)
[2021-03-08 08:40] LABS: MAGNESIUM 1.1 MG/DL (1.3-2.1)
[2021-03-08] MEDS ORDERED: MAGNESIUM SULFATE 2GM/50ML 50 ML IV ONE (12:00)
[2021-03-08] MEDS: Morphine 2mg Syringe 2 MG/ML SYR IV PRN ×3 (12:26→21:01)
[2021-03-08] MEDS: ENOXAPARIN SOD INJ 40 MG/0.4 ML SYR SC SCH (16:52)
[2021-03-09] VITALS (8 sets, daily range): BP systolic 108–146; BP diastolic 63–99
[2021-03-09] MEDS: Morphine 2mg Syringe 2 MG/ML SYR IV PRN ×6 (01:49→22:41)
[2021-03-09 06:49] LABS: ANION GAP 17.6 mmol/L (8-16); CALCIUM 9.3 mg/dL (8.4-10.2); CREATININE, SERUM 1.22 mg/dL (0.72-1.25); MAGNESIUM 1.5 MG/DL (1.3-2.1); POTASSIUM 4.6 mmol/L (3.5-5.1)
[2021-03-09] MEDS: MULTIVITAMINS/MINERALS TAB PO SCH (08:40)
[2021-03-09] MEDS: PANTOPRAZOLE SOD 40 MG TABEC PO SCH (08:40)
[2021-03-09] MEDS: FOLIC ACID 1 MG TAB PO SCH (08:40)
[2021-03-09] MEDS: ASPIRIN 81 MG ENTERIC COATED PO SCH (08:40)
[2021-03-09] MEDS: THIAMINE HCL 100 MG TAB PO SCH (08:40)
[2021-03-09] MEDS: ENOXAPARIN SOD INJ 40 MG/0.4 ML SYR SC SCH (16:50)
[2021-03-10] VITALS (9 sets, daily range): BP systolic 116–153; BP diastolic 67–99
[2021-03-10] MEDS ORDERED: METAXALONE 800 MG TAB PO ONE (02:30)
[2021-03-10] MEDS: Morphine 2mg Syringe 2 MG/ML SYR IV PRN ×6 (02:52→22:10)
[2021-03-10 06:56] LABS: AMYLASE 87 U/L (25-125); LIPASE 202 U/L (8-78)
[2021-03-10] MEDS: PANTOPRAZOLE SOD 40 MG TABEC PO SCH (07:40)
[2021-03-10] MEDS: FOLIC ACID 1 MG TAB PO SCH (09:00)
[2021-03-10] MEDS: THIAMINE HCL 100 MG TAB PO SCH (09:00)
[2021-03-10] MEDS: ASPIRIN 81 MG ENTERIC COATED PO SCH (09:00)
[2021-03-10] MEDS: MULTIVITAMINS/MINERALS TAB PO SCH (09:00)
[2021-03-10] MEDS ORDERED: ONDANSETRON HCL 4 MG ORAL DISINTEGRATING TAB PO PRN (10:30)
[2021-03-10] MEDS: LIDOCAINE 4% PATCH TP PRN ×2 (12:25→12:34)
[2021-03-11] VITALS (9 sets, daily range): BP systolic 133–144; BP diastolic 80–99
[2021-03-11] MEDS: Morphine 2mg Syringe 2 MG/ML SYR IV PRN ×6 (02:10→23:30)
[2021-03-11] MEDS: FOLIC ACID 1 MG TAB PO SCH ×2 (09:03→09:07)
[2021-03-11] MEDS: MULTIVITAMINS/MINERALS TAB PO SCH (09:03)
[2021-03-11] MEDS: PANTOPRAZOLE SOD 40 MG TABEC PO SCH (09:04)
[2021-03-11] MEDS: THIAMINE HCL 100 MG TAB PO SCH (09:04)
[2021-03-11] MEDS: ASPIRIN 81 MG ENTERIC COATED PO SCH (09:04)
[2021-03-11] MEDS: LACTATED RINGER'S 1,000 ML INJ SCH (09:08)
[2021-03-12] VITALS (7 sets, daily range): BP systolic 124–156; BP diastolic 80–99
[2021-03-12] MEDS: Morphine 2mg Syringe 2 MG/ML SYR IV PRN ×2 (04:32→09:12)
[2021-03-12 05:49] LABS: BASOPHILS # (AUTO) 0.1 (0.0-0.1); BASOPHILS % 1.1 % (0.0-1.0); EOSINOPHILS # (AUTO) 0.2 (0.0-0.4); EOSINOPHILS % 3.9 % (0.0-6.0); HEMATOCRIT 34.4 % (38.2-49.6); HEMOGLOBIN 11.9 g/dL (14.0-18.0); LYMPHOCYTES # (AUTO) 1.7 (1.0-3.2); LYMPHOCYTES % 27.2 % (18.0-39.1); MEAN CORPUSCULAR HEMOGLOBIN 35.5 pg (28-32); MEAN CORPUSCULAR HGB CONC 34.6 g/dL (31-35); MEAN CORPUSCULAR VOLUME 102.7 fL (81-99); MONOCYTES # (AUTO) 1.2 (0.2-0.8); MONOCYTES % 19.7 % (4.4-11.3); NEUTROPHILS % 47.9 % (38.7-80.0); RED BLOOD COUNT 3.35 x10e6/uL (4.3-5.7); RED CELL DISTRIBUTION WIDTH 14.6 % (11.7-14.4)
[2021-03-12 06:04] LABS: PLATELET COUNT 301 x10e3/uL (140-360)
[2021-03-12 06:14] LABS: ALBUMIN 2.4 g/dL (3.5-5.0); ALBUMIN/GLOBULIN RATIO 0.7 (0.8-2.0); ANION GAP 10.7 mmol/L (8-16); CALCIUM 8.6 mg/dL (8.4-10.2); CREATININE, SERUM 1.22 mg/dL (0.72-1.25); POTASSIUM 3.7 mmol/L (3.5-5.1)
[2021-03-12] MEDS: ASPIRIN 81 MG ENTERIC COATED PO SCH (09:12)
[2021-03-12] MEDS: MULTIVITAMINS/MINERALS TAB PO SCH (09:12)
[2021-03-12] MEDS: FOLIC ACID 1 MG TAB PO SCH (09:12)
[2021-03-12] MEDS: THIAMINE HCL 100 MG TAB PO SCH (09:12)
[2021-03-12] MEDS: PANTOPRAZOLE SOD 40 MG TABEC PO SCH (09:12)
[2021-03-12] MEDS: Morphine 4mg Syringe 4 MG/ML INJ IV PRN ×3 (13:10→21:23)
[2021-03-12] MEDS ORDERED: SODIUM CHLORIDE 0.9% 50ML 50 ML ONE (17:15)
[2021-03-12] MEDS ORDERED: IOPAMIDOL 370 MG/ML 200 ML INFUS..BTL INJ ONE (17:15)
[2021-03-12] MEDS: ENOXAPARIN SOD INJ 40 MG/0.4 ML SYR SC SCH (21:29)
[2021-03-13] VITALS (7 sets, daily range): BP systolic 125–142; BP diastolic 84–90
[2021-03-13] MEDS: Morphine 4mg Syringe 4 MG/ML INJ IV PRN ×5 (01:47→22:00)
[2021-03-13 05:53] LABS: BASOPHILS # (AUTO) 0.1 (0.0-0.1); BASOPHILS % 1.6 % (0.0-1.0); EOSINOPHILS # (AUTO) 0.3 (0.0-0.4); EOSINOPHILS % 4.3 % (0.0-6.0); HEMATOCRIT 34.3 % (38.2-49.6); HEMOGLOBIN 11.5 g/dL (14.0-18.0); LYMPHOCYTES # (AUTO) 1.9 (1.0-3.2); LYMPHOCYTES % 29.5 % (18.0-39.1); MEAN CORPUSCULAR HEMOGLOBIN 35.5 pg (28-32); MEAN CORPUSCULAR HGB CONC 33.5 g/dL (31-35); MEAN CORPUSCULAR VOLUME 105.9 fL (81-99); MONOCYTES # (AUTO) 1.1 (0.2-0.8); MONOCYTES % 17.2 % (4.4-11.3); NEUTROPHILS % 47.1 % (38.7-80.0); PLATELET COUNT 312 x10e3/uL (140-360); RED BLOOD COUNT 3.24 x10e6/uL (4.3-5.7); RED CELL DISTRIBUTION WIDTH 14.6 % (11.7-14.4)
[2021-03-13 06:30] LABS: ALBUMIN 2.4 g/dL (3.5-5.0); ANION GAP 11.8 mmol/L (8-16); BILIRUBIN,DIRECT 0.8 mg/dL (0.0-0.5); CALCIUM 8.6 mg/dL (8.4-10.2); CREATININE, SERUM 1.31 mg/dL (0.72-1.25); POTASSIUM 3.8 mmol/L (3.5-5.1)
[2021-03-13] MEDS: THIAMINE HCL 100 MG TAB PO SCH (09:11)
[2021-03-13] MEDS: MULTIVITAMINS/MINERALS TAB PO SCH (09:11)
[2021-03-13] MEDS: ENOXAPARIN SOD INJ 40 MG/0.4 ML SYR SC SCH (18:10)
[2021-03-14] VITALS: BP 120/81
[2021-03-14] MEDS: LIDOCAINE 4% PATCH TP PRN (02:06)
[2021-03-14] MEDS: Morphine 4mg Syringe 4 MG/ML INJ IV PRN ×4 (02:15→14:58)
[2021-03-14 04:00] VITALS: BP 131/79
[2021-03-14 06:42] LABS: BASOPHILS # (AUTO) 0.1 (0.0-0.1); BASOPHILS % 1.6 % (0.0-1.0); EOSINOPHILS # (AUTO) 0.3 (0.0-0.4); EOSINOPHILS % 5.3 % (0.0-6.0); HEMATOCRIT 34.1 % (38.2-49.6); HEMOGLOBIN 11.5 g/dL (14.0-18.0); LYMPHOCYTES # (AUTO) 1.6 (1.0-3.2); LYMPHOCYTES % 25.6 % (18.0-39.1); MEAN CORPUSCULAR HEMOGLOBIN 35.1 pg (28-32); MEAN CORPUSCULAR HGB CONC 33.7 g/dL (31-35); MONOCYTES % 15.6 % (4.4-11.3); NEUTROPHILS # (AUTO) 3.2 (2.1-6.9); NEUTROPHILS % 51.6 % (38.7-80.0); PLATELET COUNT 335 x10e3/uL (140-360); RED BLOOD COUNT 3.28 x10e6/uL (4.3-5.7); RED CELL DISTRIBUTION WIDTH 14.4 % (11.7-14.4)
[2021-03-14 06:58] LABS: ALBUMIN 2.3 g/dL (3.5-5.0); BILIRUBIN,DIRECT 0.7 mg/dL (0.0-0.5); CALCIUM 8.5 mg/dL (8.4-10.2); CREATININE, SERUM 1.25 mg/dL (0.72-1.25)
[2021-03-14 08:18] VITALS: BP 134/82
[2021-03-14] MEDS: FOLIC ACID 1 MG TAB PO SCH (08:48)
[2021-03-14] MEDS: ASPIRIN 81 MG ENTERIC COATED PO SCH (08:48)
[2021-03-14] MEDS: MULTIVITAMINS/MINERALS TAB PO SCH (08:48)
[2021-03-14] MEDS: THIAMINE HCL 100 MG TAB PO SCH (08:48)
[2021-03-14] MEDS: PANTOPRAZOLE SOD 40 MG TABEC PO SCH (08:48)
[2021-03-14 09:05] VITALS: BP 134/82
[2021-03-14 12:03] VITALS: BP 142/92
[2021-03-14] MEDS ORDERED: HYDROCODON-ACE1 EAC9 PO (13:17)
[2021-03-14 16:11] VITALS: BP 149/91
== END 2021-03-14 17:32 | disposition home or self-care (01) | DRG 439 ==
LOC: ER 20:39 → ERHOLD 22:14 → MED/SURG3 03-03 00:42 → OBSVTOIN 03-03 11:48
PROVIDERS: ADMIT Internal Medicine; ATTEND Internal Medicine
DX: K85.21 Alcohol induced acute pancreatitis with uninfected necrosis (principal); F10.230 Alcohol dependence with withdrawal, uncomplicated; I13.10 Hypertensive heart and chronic kidney disease without heart failure, with stage 1 through stage 4 chronic kidney disease, or unspecified chronic kidney disease; K70.30 Alcoholic cirrhosis of liver without ascites; E11.22 Type 2 diabetes mellitus with diabetic chronic kidney disease; R07.89 Other chest pain; E86.0 Dehydration; N18.30 Chronic kidney disease, stage 3 unspecified; G89.29 Other chronic pain; I71.4 Abdominal aortic aneurysm, without rupture; Y90.5 Blood alcohol level of 100-119 mg/100 ml; I35.0 Nonrheumatic aortic (valve) stenosis; E78.5 Hyperlipidemia, unspecified; Z82.3 Family history of stroke; Z84.89 Family history of other specified conditions; Z79.82 Long term (current) use of aspirin; Z95.5 Presence of coronary angioplasty implant and graft; Z95.1 Presence of aortocoronary bypass graft; Z82.49 Family history of ischemic heart disease and other diseases of the circulatory system; Z88.1 Allergy status to other antibiotic agents; Z20.822 Contact with and (suspected) exposure to COVID-19
CPT/HCPCS: 36415; 71045; 74160; 74176; 74183; 76705; 80048; 80053; 80061; 80076; 80320; 81001; 82105; 82150; 82550; 82553; 82948; 83036; 83690; 83735; 83880; 84100; 84443; 84484; 85025; 85610; 85730; 93005; 94799; 96360; 96361; 99284; G0378; J1650; J1885; J2270; J2405; J3010; J3411; J3475; J7030; J7050; J7121; Q9967; U0002

== ENCOUNTER 2021-10-12 01:40 | Emergency (ER) | payer MEDICARE ==
[~2021-10-12] VITALS: Ht 188 cm; Wt 99.3 kg
[~2021-10-12 01:40] MED LIST changes: +HYDROCODON-ACE1 EAC9 PO
[2021-10-12] MEDS ORDERED: SODIUM CHLORIDE 0.9% 1000ML 1,000 ML IV STA (01:52)
[2021-10-12] MEDS ORDERED: ONDANSETRON HCL INJ 2MG/ML 2ML 2 MG/ML VIAL IV STA ×2 (01:52→04:21)
[2021-10-12] MEDS ORDERED: FENTANYL CITRATE/PF 100MCG/2 ML INJ IV ONE (02:00)
[2021-10-12 02:01] LABS: BASOPHILS # (AUTO) 0.1 (0.0-0.1); BASOPHILS % 0.5 % (0.0-1.0); EOSINOPHILS # (AUTO) 0.1 (0.0-0.4); EOSINOPHILS % 0.8 % (0.0-6.0); HEMATOCRIT 41.7 % (38.2-49.6); HEMOGLOBIN 14.7 g/dL (14.0-18.0); LYMPHOCYTES # (AUTO) 1.5 (1.0-3.2); LYMPHOCYTES % 13.2 % (18.0-39.1); MEAN CORPUSCULAR HEMOGLOBIN 39.1 pg (28-32); MEAN CORPUSCULAR HGB CONC 35.3 g/dL (31-35); MEAN CORPUSCULAR VOLUME 110.9 fL (81-99); MONOCYTES # (AUTO) 1.2 (0.2-0.8); MONOCYTES % 10.6 % (4.4-11.3); NEUTROPHILS # (AUTO) 8.5 (2.1-6.9); NEUTROPHILS % 74.6 % (38.7-80.0); PLATELET COUNT 122 x10e3/uL (140-360); RED BLOOD COUNT 3.76 x10e6/uL (4.3-5.7); RED CELL DISTRIBUTION WIDTH 13.8 % (11.7-14.4)
[2021-10-12] MEDS ORDERED: NITROGLYCERIN 2% OINT 1 GM PKT TOP STA (02:02)
[2021-10-12] MEDS ORDERED: DIAZEPAM INJ 5 MG/ML 2 ML IV STA (02:02)
[2021-10-12] MEDS ORDERED: FENTANYL CITRATE/PF 100MCG/2 ML INJ ONE (02:03)
[2021-10-12] MEDS ORDERED: SODIUM CHLORIDE 0.9% 1000ML 2,000 ML ONE (02:04)
[2021-10-12] MEDS ORDERED: IOPAMIDOL 370 MG/ML 100 ML INFUS..BTL INJ ONE ×2 (02:12→03:01)
[2021-10-12] MEDS ORDERED: SODIUM CHLORIDE 0.9% 100 ML ONE (02:13)
[2021-10-12 02:20] LABS: ALBUMIN 3.4 g/dL (3.5-5.0); ALBUMIN/GLOBULIN RATIO 0.8 (0.8-2.0); CALCIUM 8.6 mg/dL (8.4-10.2); CREATININE, SERUM 1.51 mg/dL (0.72-1.25)
[2021-10-12 02:26] LABS: CREATINE KINASE MB 4.5 ng/mL (0-5.0)
[2021-10-12] MEDS ORDERED: Morphine 4mg INJECTION 4 MG/ML INJ IV ONE ×2 (04:30→06:15)
[2021-10-12] MEDS ORDERED: ASPIRIN 325 MG TAB PO STA (04:30)
[2021-10-12] MEDS ORDERED: SODIUM CHLORIDE 0.9% 1000ML 1,000 ML IV SCH (06:00)
[2021-10-12 06:04] LABS: AMPHETAMINES SCREEN,URINE NEGATIVE (NEGATIVE); BENZODIAZEPINES SCREEN,URINE NEGATIVE (NEGATIVE); PHENCYCLIDINE SCREEN,URINE NEGATIVE (NEGATIVE)
[2021-10-12] MEDS ORDERED: SODIUM CHLORIDE 0.9% 1000ML 1,000 ML ONE (06:07)
[2021-10-12 08:02] VITALS: BP 142/79
== END 2021-10-12 08:00 | disposition other institution (70) ==
LOC: ER 01:51
DX: I20.0 Unstable angina (principal); K85.90 Acute pancreatitis without necrosis or infection, unspecified; E11.65 Type 2 diabetes mellitus with hyperglycemia; I10 Essential (primary) hypertension; I71.4 Abdominal aortic aneurysm, without rupture; Z20.822 Contact with and (suspected) exposure to COVID-19; R94.31 Abnormal electrocardiogram [ECG] [EKG]; Z95.1 Presence of aortocoronary bypass graft; Z95.5 Presence of coronary angioplasty implant and graft
CPT/HCPCS: 36415; 71045; 71260; 74174; 80053; 80307; 80320; 82550; 82553; 83605; 83690; 83880; 84484; 85025; 85379; 86850; 86900; 93005; 99284; C9113; J2270; J2405; J3010; J7030; J7050; Q9967; U0002

== ENCOUNTER 2022-07-12 17:56 | Inpatient (IN) | payer MEDICARE ==
[~2022-07-12] VITALS: Ht 188 cm; Wt 99.3 kg
[2022-07-12] MEDS ORDERED: SODIUM CHLORIDE FLUSH 10 ML SYR IV PRN (18:30)
[2022-07-12 19:36] LABS: BASOPHILS # (AUTO) 0.1 (0.0-0.1); BASOPHILS % 0.8 % (0.0-1.0); EOSINOPHILS # (AUTO) 0.1 (0.0-0.4); EOSINOPHILS % 1.4 % (0.0-6.0); HEMATOCRIT 40.4 % (38.2-49.6); HEMOGLOBIN 13.6 g/dL (14.0-18.0); LYMPHOCYTES % 23.5 % (18.0-39.1); MEAN CORPUSCULAR HEMOGLOBIN 30.2 pg (28-32); MEAN CORPUSCULAR HGB CONC 33.7 g/dL (31-35); MEAN CORPUSCULAR VOLUME 89.6 fL (81-99); MONOCYTES % 12.3 % (4.4-11.3); NEUTROPHILS # (AUTO) 5.2 (2.1-6.9); NEUTROPHILS % 61.8 % (38.7-80.0); PLATELET COUNT 229 x10e3/uL (140-360); RED BLOOD COUNT 4.51 x10e6/uL (4.3-5.7); RED CELL DISTRIBUTION WIDTH 18.1 % (11.7-14.4)
[2022-07-12 19:48] LABS: ALBUMIN 3.3 g/dL (3.5-5.0); ALBUMIN/GLOBULIN RATIO 0.7 (0.8-2.0); ANION GAP 22.9 mmol/L (8-16); CREATININE, SERUM 3.03 mg/dL (0.72-1.25); POTASSIUM 3.9 mmol/L (3.5-5.1)
[2022-07-12] MEDS ORDERED: SODIUM CHLORIDE FLUSH 10 ML SYR INJ PRN (20:45)
[2022-07-12] MEDS ORDERED: ONDANSETRON HCL INJ 2MG/ML 2ML 2 MG/ML VIAL IV PRN (20:45)
[2022-07-12] MEDS ORDERED: ASPIRIN 81 MG CHEW TAB PO ONE (20:45)
[2022-07-12] MEDS ORDERED: ASPIRIN 81 MG ENTERIC COATED PO ONE (21:37)
[2022-07-12 21:51] LABS: SALICYLATE < 5.0 mg/dL (0-30)
[2022-07-12] MEDS ORDERED: SIMETHICONE 80 MG CHEW PO PRN (23:15)
[2022-07-12] MEDS ORDERED: HYDRALAZINE HCL 20 MG/ML VIAL IV PRN (23:15)
[2022-07-12] MEDS ORDERED: BENZONATATE 100 MG CAP PO PRN (23:15)
[2022-07-12] MEDS ORDERED: DOCUSATE SODIUM 100 MG CAP PO PRN (23:15)
[2022-07-12] MEDS ORDERED: POTASSIUM CHLORIDE 20 MEQ TAB CR PO PRN (23:15)
[2022-07-12] MEDS ORDERED: SODIUM CHLORIDE 0.9% 500ML 500 ML IV ONE (23:15)
[2022-07-12] MEDS ORDERED: MELATONIN 5 MG TABLET PO PRN (23:15)
[2022-07-12] MEDS ORDERED: DIPHENHYDRAMINE HCL 25 MG CAP PO PRN (23:15)
[2022-07-12] MEDS ORDERED: LIDOCAINE 4% PATCH TP PRN (23:15)
[2022-07-12] MEDS ORDERED: DEXTROSE 50% SYRINGE 50 ML IV PRN (23:15)
[2022-07-12] MEDS ORDERED: ALBUTEROL/IPRATROPIUM 3 ML NEB NEB PRN (23:15)
[2022-07-12 23:35] VITALS: PULSE 67; RESP 16; O2SAT 98; O2SAT 99
[2022-07-12] MEDS: SODIUM BICARBONATE 650 MG TAB PO SCH (23:44)
[2022-07-12] MEDS: ACETAMINOPHEN 325 MG TAB PO PRN (23:45)
[2022-07-12] MEDS: SODIUM CHLORIDE 0.9% 1000ML 1,000 ML IV SCH (23:46)
[2022-07-13] VITALS (11 sets, daily range): BP systolic 113–156; BP diastolic 72–86; PULSE 46–66; RESP 16–20; TEMP 97–97.6; O2SAT 96–100
[2022-07-13] MEDS ORDERED: SODIUM CHLORIDE 0.9% 500ML 500 ML IV ONE (00:15)
[2022-07-13] MEDS ORDERED: RANOLAZINE ER500 MG PO (00:30)
[2022-07-13] MEDS ORDERED: SERTRALINE HCL50 MG PO (00:30)
[2022-07-13] MEDS ORDERED: MIDODRINE HCL5 MG PO (00:30)
[2022-07-13] MEDS: SODIUM CHLORIDE 0.9% 1000ML 1,000 ML IV SCH ×3 (05:05→23:20)
[2022-07-13 06:29] LABS: BASOPHILS # (AUTO) 0.1 (0.0-0.1); BASOPHILS % 1.3 % (0.0-1.0); EOSINOPHILS # (AUTO) 0.4 (0.0-0.4); HEMATOCRIT 35.2 % (38.2-49.6); HEMOGLOBIN 11.6 g/dL (14.0-18.0); LYMPHOCYTES # (AUTO) 3.1 (1.0-3.2); LYMPHOCYTES % 43.4 % (18.0-39.1); MEAN CORPUSCULAR HEMOGLOBIN 30.3 pg (28-32); MEAN CORPUSCULAR VOLUME 91.9 fL (81-99); MONOCYTES # (AUTO) 1.1 (0.2-0.8); MONOCYTES % 14.6 % (4.4-11.3); NEUTROPHILS # (AUTO) 2.5 (2.1-6.9); NEUTROPHILS % 35.3 % (38.7-80.0); PLATELET COUNT 190 x10e3/uL (140-360); RED BLOOD COUNT 3.83 x10e6/uL (4.3-5.7); RED CELL DISTRIBUTION WIDTH 17.9 % (11.7-14.4)
[2022-07-13 07:29] LABS: ALBUMIN 2.8 g/dL (3.5-5.0); ALBUMIN/GLOBULIN RATIO 0.7 (0.8-2.0); ANION GAP 15.2 mmol/L (8-16); CALCIUM 8.9 mg/dL (8.4-10.2); CREATININE, SERUM 3.06 mg/dL (0.72-1.25); POTASSIUM 3.2 mmol/L (3.5-5.1)
[2022-07-13] MEDS ORDERED: PANTOPRAZOLE SOD 40 MG TABEC PO SCH (07:30)
[2022-07-13 07:56] LABS: CHOL/HDL RATIO 7.5 (3.9-4.7); MAGNESIUM 1.4 MG/DL (1.3-2.1); PHOSPHORUS 4.2 MG/DL (2.3-4.7)
[2022-07-13 08:17] LABS: THYROID STIMULATING HORMONE 0.831 uIU/mL (0.350-4.940)
[2022-07-13] MEDS ORDERED: ONDANSETRON HCL 4 MG ORAL DISINTEGRATING TAB PO PRN (08:45)
[2022-07-13] MEDS: SODIUM BICARBONATE 650 MG TAB PO SCH ×2 (09:04→16:49)
[2022-07-13] MEDS: MIDODRINE 2.5 MG TAB PO SCH ×3 (12:00→16:00)
[2022-07-13] MEDS: ACETAMINOPHEN 325 MG TAB PO PRN ×2 (13:26→18:13)
[2022-07-13] MEDS ORDERED: SODIUM CHLORIDE 0.9% 1000ML 1,000 ML IV ONE ×2 (15:45→17:45)
[2022-07-14] VITALS (8 sets, daily range): BP systolic 123–165; BP diastolic 60–80; PULSE 50–54; RESP 18–20; TEMP 97.6–97.8; O2SAT 96–100
[2022-07-14] MEDS: ACETAMINOPHEN 325 MG TAB PO PRN (00:28)
[2022-07-14] MEDS ORDERED: DICYCLOMINE HCL 20 MG TAB PO ONE (00:30)
[2022-07-14] MEDS: SODIUM CHLORIDE 0.9% 1000ML 1,000 ML IV SCH ×4 (01:55→22:45)
[2022-07-14] MEDS: DICYCLOMINE HCL 20 MG TAB PO SCH ×3 (05:45→22:45)
[2022-07-14 05:53] LABS: BASOPHILS # (AUTO) 0.1 (0.0-0.1); BASOPHILS % 1.4 % (0.0-1.0); EOSINOPHILS # (AUTO) 0.4 (0.0-0.4); EOSINOPHILS % 6.2 % (0.0-6.0); HEMATOCRIT 36.2 % (38.2-49.6); HEMOGLOBIN 11.8 g/dL (14.0-18.0); LYMPHOCYTES # (AUTO) 2.1 (1.0-3.2); LYMPHOCYTES % 36.9 % (18.0-39.1); MEAN CORPUSCULAR HEMOGLOBIN 30.3 pg (28-32); MEAN CORPUSCULAR HGB CONC 32.6 g/dL (31-35); MEAN CORPUSCULAR VOLUME 93.1 fL (81-99); MONOCYTES # (AUTO) 0.7 (0.2-0.8); MONOCYTES % 11.9 % (4.4-11.3); NEUTROPHILS # (AUTO) 2.4 (2.1-6.9); NEUTROPHILS % 43.4 % (38.7-80.0); PLATELET COUNT 187 x10e3/uL (140-360); RED BLOOD COUNT 3.89 x10e6/uL (4.3-5.7); RED CELL DISTRIBUTION WIDTH 17.6 % (11.7-14.4)
[2022-07-14 06:14] LABS: ALBUMIN 2.6 g/dL (3.5-5.0); ALBUMIN/GLOBULIN RATIO 0.8 (0.8-2.0); ANION GAP 12.7 mmol/L (8-16); CALCIUM 8.2 mg/dL (8.4-10.2); CHOL/HDL RATIO 6.3 (3.9-4.7); CREATININE, SERUM 2.16 mg/dL (0.72-1.25); POTASSIUM 3.7 mmol/L (3.5-5.1)
[2022-07-14 06:43] LABS: THYROID STIMULATING HORMONE 0.725 uIU/mL (0.350-4.940)
[2022-07-14] MEDS: SODIUM BICARBONATE 650 MG TAB PO SCH ×2 (08:33→16:39)
[2022-07-14] MEDS: MIDODRINE 2.5 MG TAB PO SCH ×3 (08:33→16:39)
[2022-07-14] MEDS ORDERED: SERTRALINE HCL 50 MG TAB PO PRN (09:45)
[2022-07-14] MEDS: HYDROCODONE/APAP 5MG-325MG TAB PO PRN ×3 (10:25→22:46)
[2022-07-14 16:51] LABS: WBC,FECAL (FECAL LACTOFERRIN) NEGATIVE (NEGATIVE)
[2022-07-14] MEDS: VANCOMYCIN HCL 125 MG CAPSULE PO SCH (18:33)
[2022-07-14] MEDS: ATORVASTATIN 40 MG TAB PO SCH (20:28)
[2022-07-15] VITALS (15 sets, daily range): BP systolic 113–190; BP diastolic 69–97; PULSE 44–79; RESP 16–20; TEMP 97.2–97.6; O2SAT 94–100
[2022-07-15] MEDS: VANCOMYCIN HCL 125 MG CAPSULE PO SCH ×5 (00:11→23:05)
[2022-07-15] MEDS: HYDROCODONE/APAP 5MG-325MG TAB PO PRN ×4 (04:42→23:12)
[2022-07-15] MEDS: SODIUM CHLORIDE 0.9% 1000ML 1,000 ML IV SCH ×4 (04:42→23:05)
[2022-07-15 05:01] LABS: BASOPHILS # (AUTO) 0.1 (0.0-0.1); BASOPHILS % 0.8 % (0.0-1.0); EOSINOPHILS # (AUTO) 0.4 (0.0-0.4); EOSINOPHILS % 6.3 % (0.0-6.0); HEMATOCRIT 33.6 % (38.2-49.6); HEMOGLOBIN 11.1 g/dL (14.0-18.0); LYMPHOCYTES # (AUTO) 2.6 (1.0-3.2); LYMPHOCYTES % 40.6 % (18.0-39.1); MEAN CORPUSCULAR HEMOGLOBIN 30.3 pg (28-32); MEAN CORPUSCULAR VOLUME 91.8 fL (81-99); MONOCYTES # (AUTO) 0.8 (0.2-0.8); MONOCYTES % 12.1 % (4.4-11.3); NEUTROPHILS # (AUTO) 2.5 (2.1-6.9); PLATELET COUNT 180 x10e3/uL (140-360); RED BLOOD COUNT 3.66 x10e6/uL (4.3-5.7); RED CELL DISTRIBUTION WIDTH 17.7 % (11.7-14.4)
[2022-07-15 05:28] LABS: ANION GAP 10.8 mmol/L (8-16); CALCIUM 8.3 mg/dL (8.4-10.2); CREATININE, SERUM 1.7 mg/dL (0.72-1.25); POTASSIUM 3.8 mmol/L (3.5-5.1)
[2022-07-15] MEDS: DICYCLOMINE HCL 20 MG TAB PO SCH ×3 (05:31→21:01)
[2022-07-15] MEDS: MIDODRINE 2.5 MG TAB PO SCH ×4 (08:00→16:54)
[2022-07-15] MEDS: ACETAMINOPHEN 325 MG TAB PO PRN (08:56)
[2022-07-15] MEDS: CLOPIDOGREL BISULFATE 75 MG TAB PO SCH (08:57)
[2022-07-15] MEDS: SODIUM BICARBONATE 650 MG TAB PO SCH ×2 (08:57→16:54)
[2022-07-15] MEDS: RANOLAZINE 500 MG TABSR PO SCH (08:57)
[2022-07-15] MEDS: ATORVASTATIN 40 MG TAB PO SCH (21:01)
[2022-07-16] VITALS (11 sets, daily range): BP systolic 125–179; BP diastolic 79–87; PULSE 51–75; RESP 18–21; TEMP 97–97.9; O2SAT 75–100
[2022-07-16] MEDS: VANCOMYCIN HCL 125 MG CAPSULE PO SCH ×4 (05:16→23:33)
[2022-07-16] MEDS: HYDROCODONE/APAP 5MG-325MG TAB PO PRN (05:16)
[2022-07-16] MEDS: DICYCLOMINE HCL 20 MG TAB PO SCH ×3 (05:16→20:57)
[2022-07-16] MEDS: RANOLAZINE 500 MG TABSR PO SCH (09:46)
[2022-07-16] MEDS: CLOPIDOGREL BISULFATE 75 MG TAB PO SCH (09:46)
[2022-07-16] MEDS: MIDODRINE 2.5 MG TAB PO SCH (09:46)
[2022-07-16] MEDS: SODIUM BICARBONATE 650 MG TAB PO SCH ×2 (09:47→18:05)
[2022-07-16] MEDS: SODIUM CHLORIDE 0.9% 1000ML 1,000 ML IV SCH ×3 (09:47→23:33)
[2022-07-16] MEDS: HYDROCODONE/APAP 10MG-325MG TAB PO PRN ×3 (12:11→23:34)
[2022-07-16] MEDS: ATORVASTATIN 40 MG TAB PO SCH (20:54)
[2022-07-17 00:02] LABS: % IRON SATURATION 14 % (15-50); IRON 39 ug/dL (65-175); TOTAL IRON BINDING CAPACITY 283 ug/dL (261-478); TRANSFERRIN 202 mg/dL (174-364)
[2022-07-17] MEDS: SODIUM CHLORIDE 0.9% 1000ML 1,000 ML IV SCH ×3 (03:15→14:15)
[2022-07-17 04:48] VITALS: BP 164/95; PULSE 66; RESP 18; TEMP 97.8; O2SAT 97
[2022-07-17 05:01] LABS: BASOPHILS # (AUTO) 0.1 (0.0-0.1); BASOPHILS % 1.1 % (0.0-1.0); EOSINOPHILS # (AUTO) 0.4 (0.0-0.4); EOSINOPHILS % 6.6 % (0.0-6.0); HEMATOCRIT 36.6 % (38.2-49.6); HEMOGLOBIN 12.3 g/dL (14.0-18.0); LYMPHOCYTES # (AUTO) 2.8 (1.0-3.2); LYMPHOCYTES % 44.6 % (18.0-39.1); MEAN CORPUSCULAR HEMOGLOBIN 30.3 pg (28-32); MEAN CORPUSCULAR HGB CONC 33.6 g/dL (31-35); MEAN CORPUSCULAR VOLUME 90.1 fL (81-99); MONOCYTES # (AUTO) 0.8 (0.2-0.8); NEUTROPHILS # (AUTO) 2.2 (2.1-6.9); NEUTROPHILS % 35.5 % (38.7-80.0); PLATELET COUNT 187 x10e3/uL (140-360); RED BLOOD COUNT 4.06 x10e6/uL (4.3-5.7); RED CELL DISTRIBUTION WIDTH 18.2 % (11.7-14.4)
[2022-07-17 05:24] LABS: ANION GAP 12.3 mmol/L (8-16); CALCIUM 8.8 mg/dL (8.4-10.2); CREATININE, SERUM 1.56 mg/dL (0.72-1.25); POTASSIUM 4.3 mmol/L (3.5-5.1)
[2022-07-17] MEDS: VANCOMYCIN HCL 125 MG CAPSULE PO SCH ×2 (05:50→13:55)
[2022-07-17] MEDS: HYDROCODONE/APAP 10MG-325MG TAB PO PRN (05:50)
[2022-07-17] MEDS: DICYCLOMINE HCL 20 MG TAB PO SCH ×2 (05:50→14:15)
[2022-07-17 08:00] VITALS: BP_SYST 134; BP_SYST 169; BP_DIAS 76; BP_DIAS 89; PULSE 107; PULSE 74; RESP 18; RESP 20; TEMP 97.9; TEMP 98.1; O2SAT 99
[2022-07-17] MEDS: CLOPIDOGREL BISULFATE 75 MG TAB PO SCH (10:25)
[2022-07-17] MEDS: SODIUM BICARBONATE 650 MG TAB PO SCH ×2 (10:25→16:13)
[2022-07-17] MEDS: RANOLAZINE 500 MG TABSR PO SCH (10:26)
[2022-07-17 12:27] VITALS: BP 142/87; PULSE 69; RESP 20; TEMP 97.7; O2SAT 97
[2022-07-17] MEDS ORDERED: VANCOMYCIN HCL125 MG PO (14:47)
[2022-07-17 15:29] VITALS: BP 155/98; PULSE 99; RESP 20; TEMP 98.6; O2SAT 98
[2022-07-17] MEDS ORDERED: PANTOPRAZOLE SOD 40 MG TABEC PO SCH (21:00)
== END 2022-07-17 16:24 | disposition home or self-care (01) | DRG 372 ==
LOC: ER 18:08 → ERHOLD 20:47 → MED/SURG 22:57 → OBSVTOIN 07-13 15:10
PROVIDERS: ADMIT Internal Medicine; ATTEND Internal Medicine
DX: A04.72 Enterocolitis due to Clostridium difficile, not specified as recurrent (principal); E87.20 Acidosis, unspecified; N17.8 Other acute kidney failure; K86.1 Other chronic pancreatitis; G45.0 Vertebro-basilar artery syndrome; R29.6 Repeated falls; E86.0 Dehydration; N28.1 Cyst of kidney, acquired; I25.10 Atherosclerotic heart disease of native coronary artery without angina pectoris; I95.89 Other hypotension; I12.9 Hypertensive chronic kidney disease with stage 1 through stage 4 chronic kidney disease, or unspecified chronic kidney disease; N20.0 Calculus of kidney; K57.90 Diverticulosis of intestine, part unspecified, without perforation or abscess without bleeding; I95.1 Orthostatic hypotension; E78.5 Hyperlipidemia, unspecified; N18.32 Chronic kidney disease, stage 3b; I71.40 Abdominal aortic aneurysm, without rupture, unspecified; F10.20 Alcohol dependence, uncomplicated; Z95.1 Presence of aortocoronary bypass graft; Z95.5 Presence of coronary angioplasty implant and graft; Z20.822 Contact with and (suspected) exposure to COVID-19; Z79.82 Long term (current) use of aspirin; Z79.02 Long term (current) use of antithrombotics/antiplatelets; Z79.899 Other long term (current) drug therapy
CPT/HCPCS: 36415; 51798; 70450; 71045; 72125; 72192; 74176; 76770; 80048; 80053; 80061; 80320; 80329; 82550; 82553; 82607; 82746; 82948; 83036; 83540; 83630; 83735; 83880; 83993; 84100; 84443; 84466; 84484; 85025; 85045; 87045; 87177; 87324; 87449; 93005; 94760; 94799; 96361; 99284; G0378; J7030; J7040